=== PATIENT | male | born 1960 | race Caucasian/White ===

== ENCOUNTER 2018-05-08 13:49 | Emergency (ER) | payer OTHER ==
--- OUTSIDE RECORDS SUMMARY | 2018-05-08 13:51 | XMS REPORT ---
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 (ASCVD) Problem HTN (hypertension) I10 Active Problem Pure hypercholesterolemia E78.00 Active Problem Dementia without behavioral F03.90 Active disturbance, unspecified dementia type Problem Cigarette nicotine dependence F17.210 Active without complication Assessment Hyperlipidemia E78.5 Active Assessment Arteriosclerotic cardiovascular I25.10 Active disease (ASCVD) Problem Elevated blood pressure reading R03.0 Active Assessment Primary insomnia F51.01 Active Problem Closed displaced fracture of first S92.312S Active metatarsal bone of left foot, sequela Problem Abdominal pain R10.9 Active Problem Atrial fibrillation, unspecified I48.91 Active type Problem Left foot pain M79.672 Active Problem Hyperlipidemia E78.5 Active Problem Essential hypertension I10 Active Assessment Pulmonary emphysema, unspecified J43.9 Active emphysema type Assessment HTN (hypertension) I10 Active Problem Acute myocardial infarction, I21.4 Active subendocardial infarction Problem Pulmonary emphysema, unspecified J43.9 Active emphysema type Problem Chronic depressive person F34.1 Active Problem Follow-up exam Z09 Active Medications Medication Code Code Instructions Start End Status Dosage System Date Date Clonidine HCl [facility] 47501010465 0.3 MG Orally Nov 30 Inactive 1 tablet Twice a day 2017 Dulera [facility] [id number] 100-5 MCG/ACT Active 2 puffs Inhalation Twice a day Valproic Acid ND 61579342610 250 MG Orally Inactive not three times a defined day Lisinopril ND 87087814969 10 MG Orally December Inactive 1 tablet Once a day 2017 Coreg [facility] 04228299914 12.5 MG Orally Active not twice a day defined [place] [facility] 78582026938 10-325 MG Active 1 tablet Orally every 6 as needed hrs Lisinopril [facility] 95415971259 40 MG Orally February 28, Active 1 tablet Once a day 2017 amitriptyline [facility] 01451272273 25 mg po February Inactive one tab bedtime 2017 Lisinopril [facility] 19342868862 5 MG Orally Inactive 1 tablet Once a day Clonidine HCl [facility] 30258448299 0.3 MG Orally Inactive 1 tablet Twice a day Amiodarone HCl [facility] 06205628949 200 MG Orally Active 1 tablet Once a day Lipitor [facility] 69644510332 40 MG Orally February 28, Active 1 tablet Once a day 2017 Coreg [facility] 51554230821 12.5 MG Orally December Active as bid 2017 directed Amitriptyline [facility] 84049410816 50 MG Orally February 28, Active 1 tablet HCl Once a day 2017 atarax [facility] 67060365237 Inactive not defined Cheratussin AC [facility] 51019860715 100-10 MG/5ML Inactive 10 ml Orally every 8 hrs Clonidine HCl [facility] 62931232422 0.2 MG Orally February 28, Active 1 tablet twice a day 2017 Results No Known Results Summary Purpose [employer] Submission
--- OUTSIDE RECORDS SUMMARY | 2018-05-08 13:52 | XMS REPORT ---
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 Active disease (ASCVD) Problem HTN (hypertension) I10 Active Problem Pure hypercholesterolemia E78.00 Active Problem Dementia without behavioral F03.90 Active disturbance, unspecified dementia type Problem Cigarette nicotine dependence F17.210 Active without complication Problem Elevated blood pressure reading R03.0 Active Problem Closed displaced fracture of first S92.312S Active metatarsal bone of left foot, sequela Problem Abdominal pain R10.9 Active Problem Atrial fibrillation, unspecified I48.91 Active type Problem Left foot pain M79.672 Active Problem Hyperlipidemia E78.5 Active Problem Essential hypertension I10 Active Problem Acute myocardial infarction, I21.4 Active subendocardial infarction Problem Pulmonary emphysema, unspecified J43.9 Active emphysema type Problem Chronic depressive person F34.1 Active Problem Primary insomnia F51.01 Active Problem Follow-up exam Z09 Active Problem Chronic generalized pain R52 Active Medications No Known Medications Results No Known Results Summary Purpose [employer] Submission
[2018-05-08] MEDS ORDERED: ASPIRIN 81 MG CHEWABLE TABLET ONE (14:44)
[2018-05-08 14:45] LABS: Absolute Lymphocytes (CBC) 1.8 K/uL (0.7-4.9); Absolute Monocytes 1.5 K/uL (0.1-1.3); Absolute Neutrophil 11.4 K/uL (1.8-8.0); Basophils % 0.3 % (0-1.3); Eosinophils % 0.2 % (0-4.4); Hematocrit 42.9 % (39.6-49.0); Lymphocytes % 12.1 % (15.3-44.8); MCH 30.5 pg (27.0-35.0); MCV 92.1 fL (80-100); MPV 10.2 fL (7.6-11.3); Monocytes % 10.1 % (3.3-12.3); RBC Red Blood Cell Count 4.66 M/uL (4.33-5.43)
[2018-05-08 14:57] LABS: Albumin 3.2 g/dL (3.4-5.0); Bilirubin Direct 0.4 mg/dL (0-0.2); Bilirubin Total 0.9 mg/dL (0.2-1.0); CKMB Creatine Kinase MB 4.3 ng/mL (0.3-3.6); Magnesium 2.9 mg/dL (1.8-2.4); Potassium 4.1 mmol/L (3.5-5.1)
--- NOTE | 2018-05-08 15:04 | RAD REPORT ---
EXAM DESCRIPTION: CT - Head Brain Wo Cont - 05/08/2018 2:53 pm CLINICAL HISTORY: Syncope COMPARISON: 2016 TECHNIQUE: Computed axial tomography of the head was obtained. IV contrast was not requested. All CT scans are performed using dose optimization technique as appropriate and may include automated exposure control or mA/KV adjustment according to patient size. FINDINGS: An intracranial bleed is not seen . The ventricles are normal in caliber. No extra-axial fluid collection is noted. Mild to moderate low-density areas within periventricular, deep and subcortical white matter likely represent ischemic changes secondary to small vessel disease . Fluid is present within the right maxillary sinus IMPRESSION: No acute intracranial abnormality is seen. If patient's symptoms persist MRI of the bra in would be recommended. Fluid in the right maxillary sinus indicates acute sinusitis
[2018-05-08 15:08] LABS: Protime INR 1.35
--- NOTE | 2018-05-08 15:38 | ER ---
Nurse's Notes [facility] Name: Blayne Macias Age: 57 yrs Sex: Male : 1960 Arrival Date: 05/08/2018 Time: 13:51 Bed 30 Private MD: Diagnosis: ST elevation (STEMI) myocardial infarction of unspecified site Presentation: 05/08 13:51 Presenting complaint: EMS states: Vomiting started yesterday, then diarrhea started mb3 today. Soiled himself and assisted him into shower. Syncopal episode in the shower, then when woke up had what appeared to be a seizure in the shower. C/o pain to left foot also, twisted and hit it when fell in the shower. Transition of care: patient was not received from another setting of care. Onset of symptoms was May 07, 2018 at 08:00. Risk Assessment: Do you want to hurt yourself or someone else? Patient reports no desire to harm self or others. Initial Sepsis Screen: Does the patient meet any 2 criteria? No. Patient's initial sepsis screen is negative. Does the patient have a suspected source of infection? No. Patient's initial sepsis screen is negative. Note concerned that his lithium level may be off because of the vomiting and diarrhea, pt has bipolar and takes it regularly. Care prior to arrival: Medication(s) given: Normal saline infusion, 1000 mL, IV initiated. 20 GA, in the left antecubital area. 13:51 Method Of Arrival: EMS: [facility] mb3 13:51 Acuity: SENTHIL 3 mb3 Historical: - Allergies: 13:57 Codeine; mb3 13:57 PENICILLINS; mb3 - Home Meds: 14:50 amiodarone 200 mg Oral tab 0.5 tab 2 times per day [Active]; amitriptyline 50 mg Oral mb3 tab 1 tab once daily [Active]; aspirin 81 mg Oral TbEC 1 tab once daily [Active]; carvedilol 25 mg Oral tab 0.5 tab 2 times per day [Active]; clonidine HCl 0.3 mg Oral tab 1 tab 2 times per day [Active]; hydrochlorothiazide 12.5 mg Oral tab 1 tab once daily [Active]; isosorbide mononitrate 60 mg Oral Tb24 [Active]; Lasix 40 mg Oral tab 1 tab once daily [Active]; lisinopril 5 mg Oral tab once daily [Active]; lithium carbonate 300 mg Oral cap 1 cap 3 times per day [Active]; Norvasc 10 mg Oral tab once daily [Active]; ProAir HFA 90 mcg/actuation inhalation HFAA [Active]; simvastatin 40 mg Oral tab 1 tab once daily [Active]; Symbicort 160-4.5 mcg/actuation inhalation HFAA 2 puffs 2 times per day [Active]; - PMHx: 13:57 Atrial Fib; Back pain; Bipolar disorder; CAD; CHF; chronic back pain; COPD; High mb3 Cholesterol; Hypertension; Pneumonia; - PSHx: 13:57 pain stimulator to back, neck surgery; CABG; mb3 - Immunization history:: Adult Immunizations up to date. - Social history:: Smoking status: Patient/guardian denies using tobacco, the patient reports quitting approximately .5 years ago. - Ebola Screening: : Patient negative for fever greater than or equal to 101.5 degrees Fahrenheit, and additional compatible Ebola Virus Disease symptoms Patient denies exposure to infectious person Patient denies travel to an Ebola-affected area in the 21 days before illness onset No symptoms or risks identified at this time. Screenin:29 Abuse screen: Denies threats or abuse. Nutritional screening: No deficits noted. mb3 Tuberculosis screening: No symptoms or risk factors identified. Fall Risk Fall in past 12 months (25 points). Secondary diagnosis (15 points) IV access (20 points). Ambulatory Aid- Furniture (30 pts.). Gait- Impaired (20 pts.). Mental Status- Oriented to own ability (0 pts). Total Kang Fall Scale indicates High Risk Score (45 or more points). Fall prevention measures have been instituted. Side Rails Up X 2 Placed Close to Nursing Station Frequent Obs/Assessments Occuring As available patient and family educated on Fall Prevention Program and Strategies. Assessment: 14:26 General: Appears distressed, uncomfortable, ill, slender, Behavior is calm, mb3 cooperative, appropriate for age. Pain: Complains of pain in abdomen and left foot. Neuro: Level of Consciousness is awake, alert, obeys commands, Oriented to person, place, time, situation, Appropriate for age Welfare Supervisor are equal bilaterally Moves all extremities. Full function. Cardiovascular: Reports nausea, vomiting, Denies chest pain, Heart tones present Capillary refill < 3 seconds Patient's skin is warm and dry. Pulses are all present. Rhythm is sinus rhythm. Respiratory: Airway is patent Respiratory effort is even, unlabored, Respiratory pattern is regular, symmetrical, Breath sounds are clear bilaterally. GI: Abdomen is flat, Bowel sounds present X 4 quads. Abd is soft Abdomen is tender to palpation X 4 quads. Reports lower abdominal pain, upper abdominal pain, diarrhea, nausea, vomiting. : No signs and/or symptoms were reported regarding the genitourinary system. EENT: No signs and/or symptoms were reported regarding the EENT system. Derm: No signs and/or symptoms reported regarding the dermatologic system. Musculoskeletal: Tenderness present in left foot Reports pain in left foot. 14:53 Reassessment: attempted to call Dr. Elizabeth, polygraph operator again. Answering service ss staff states, "we are waiting for him to call us back, sorry". Initiating transfer at this time. 14:54 Reassessment: Dr. Elizabeth on the phone now consulting with Sunita Jacobs NP. Dr. Berrios reports our facility's label stamper is unavailable at this time and continue with transfer to [facility] for continuity of higher level of care. Vital Signs: 13:55 BP 92 / 79; Pulse 81; Resp 20; Temp 97.9; Pulse Ox 98% on R/A; Weight 72.57 kg; Height mb3 5 ft. 9 in. (175.26 cm); Pain 6/10; 14:32 BP 126 / 85; Pulse 76; Resp 20; Pulse Ox 98% on R/A; mb3 15:13 BP 123 / 85 LA Supine (auto/reg); Pulse 74 LA; cb2 15:19 BP 105 / 85 LA Sitting (auto/reg); Pulse 82 LA; cb2 15:24 BP 75 / 64 LA Standing (auto/reg); Pulse 82 LA; cb2 15:59 BP 149 / 94 LA Sitting (auto/reg); Pulse 73 LA; Resp 18 S; Pulse Ox 95% on R/A; cb2 16:21 BP 151 / 94; Pulse 78; Resp 20; Pulse Ox 95% on R/A; mb3 13:55 Body Mass Index 23.63 (72.57 kg, 175.26 cm) mb3 ED Course: 13:51 Patient arrived in ED. mb3 13:53 Edmond Jacobs, [employer]SEMBLER is PHCP. pm1 13:53 Qing Ramos MD is Attending Physician. pm1 13:54 Triage completed. mb3 14:03 Arias Mohan, RN is Primary Nurse. mb3 14:25 EKG done, by ED staff, reviewed by Edmond Jacobs NP. cb2 14:29 Patient has correct armband on for positive identification. Placed in gown. Bed in low mb3 position. Call light in reach. Side rails up X2. Seizure precautions initiated. front counter attendant on. Pulse ox on. NIBP on. 14:31 Arm band placed on right wrist. mb3 14:37 called and left message with the polygraph operator answering service to please page the eb polygraph operator software integration developer that we had a STEMI and needed a call back. 14:50 CT completed. Patient moved to CT via stretcher. Patient moved back from CT. cw1 14:53 CT Head Brain wo Cont In Process Unspecified. EDMS 14:53 Glenn Irvin returned call and connected with Edmond. eb 14:53 initiated transfer with Cha at the [facility]. eb 15:00 connected the STEMI team with ED doc for patient transfer consultation, faxed the ekg eb to [phone] and [phone]. 15:08 STEMI team called back to talk to ED doc after reviewing ekgs to discuss patient eb transfer. 15:09 Inserted saline lock: 20 gauge in right forearm, using aseptic technique. cb2 15:10 Foot Left 3 View XRAY In Process Unspecified. EDMS 15:10 XRAY Chest (1 view) In Process Unspecified. EDMS 15:14 connected with ED doc for patient transfer consultation. eb 15:24 Cha from [facility] called to ask for a 15min extension on the transfer time. eb 16:22 No provider procedures requiring assistance completed. Patient transferred, IV remains mb3 in place. Administered Medications: 14:43 Drug: Aspirin Chewable Tablet 324 mg Route: PO; mb3 16:26 Follow up: Response: No adverse reaction mb3 Outcome: 15:37 ER care complete, transfer ordered by . pm1 16:21 Transferred by helicopter to [facility], [facility], Transfer form completed. mb3 X-rays sent w/ patient. 16:21 Condition: stable 16:21 Instructed on the need for transfer. 16:22 Patient left the ED. mb3 Signatures: Dispatcher [employer] Riya Borges RN RN Jammie Banerjee cw1 Edmond Jacobs NP [employer]BL[employer] pm1 Sathish Young Elizabeth eb Barnett, Mark RN RN mb3 Corrections: (The following items were deleted from the chart) 15:07 14:54 Reassessment: Dr. Elizabeth on the phone now consulting with XIMENA Wilkes
--- NOTE | 2018-05-08 15:38 | EDPHYS ---
Physician Documentation [facility] Name: Blayne Macias Age: 57 yrs Sex: Male : 1960 Arrival Date: 05/08/2018 Time: 13:51 Bed 30 Private MD: ED Physician Qing Ramos HPI: 05/08 15:17 This 57 yrs old Male presents to ER via EMS with complaints of Syncope, pm1 Probable Seizure. 15:17 The patient has experienced syncope, collapsed. Onset: The symptoms/episode pm1 began/occurred just prior to arrival, today. Patient had onset of chest two days ago. Last episode of chest pain last night. Chest pain felt like pressure. Hx of CAD with singe vessel CABG December 2015 GONZALES to LAD. Patient with nausea and vomiting throughout the day yesterday. Today patient with complaints of syncopal episodes that were preceded by episodes of back pain. Patient attributed the back pain to a lack of his back stimulator not working to manage his chronic back pain. Initial syncopal episode while he was having a bowel movement, diarrhea. After initial syncopal episode, patient got up and had additional syncopal episodes preceded by back pain. Patient without headache, head injury, or neck pain. During one of his syncopal episodes, patient injured his left foot. Presenting with pain to dorsum of left foot. Patient currently not complaining of chest pain or shortness of breath . Historical: - Allergies: 13:57 Codeine; mb3 13:57 PENICILLINS; mb3 - Home Meds: 14:50 amiodarone 200 mg Oral tab 0.5 tab 2 times per day [Active]; amitriptyline 50 mg Oral mb3 tab 1 tab once daily [Active]; aspirin 81 mg Oral TbEC 1 tab once daily [Active]; carvedilol 25 mg Oral tab 0.5 tab 2 times per day [Active]; clonidine HCl 0.3 mg Oral tab 1 tab 2 times per day [Active]; hydrochlorothiazide 12.5 mg Oral tab 1 tab once daily [Active]; isosorbide mononitrate 60 mg Oral Tb24 [Active]; Lasix 40 mg Oral tab 1 tab once daily [Active]; lisinopril 5 mg Oral tab once daily [Active]; lithium carbonate 300 mg Oral cap 1 cap 3 times per day [Active]; Norvasc 10 mg Oral tab once daily [Active]; ProAir HFA 90 mcg/actuation inhalation HFAA [Active]; simvastatin 40 mg Oral tab 1 tab once daily [Active]; Symbicort 160-4.5 mcg/actuation inhalation HFAA 2 puffs 2 times per day [Active]; - PMHx: 13:57 Atrial Fib; Back pain; Bipolar disorder; CAD; CHF; chronic back pain; COPD; High mb3 Cholesterol; Hypertension; Pneumonia; - PSHx: 13:57 pain stimulator to back, neck surgery; CABG; mb3 - Immunization history:: Adult Immunizations up to date. - Social history:: Smoking status: Patient/guardian denies using tobacco, the patient reports quitting approximately .5 years ago. - Ebola Screening: : Patient negative for fever greater than or equal to 101.5 degrees Fahrenheit, and additional compatible Ebola Virus Disease symptoms Patient denies exposure to infectious person Patient denies travel to an Ebola-affected area in the 21 days before illness onset No symptoms or risks identified at this time. ROS: 15:17 Constitutional: Negative for fever, chills, and weight loss, Eyes: Negative for injury, pm1 pain, redness, and discharge, ENT: Negative for injury, pain, and discharge, Neck: Negative for injury, pain, and swelling, Respiratory: Negative for shortness of breath, cough, wheezing, and pleuritic chest pain, Abdomen/GI: Negative for abdominal pain, nausea, vomiting, diarrhea, and constipation. 15:17 : Negative for injury, bleeding, discharge, and swelling, Skin: Negative for injury, rash, and discoloration. 15:17 Cardiovascular: Positive for chest pain, pressure onset two days ago, Negative for edema, palpitations. 15:17 Back: Positive for Low back pain. 15:17 MS/extremity: Positive for pain, tenderness, of the dorsum of left foot. 15:17 Neuro: Positive for syncope, Possible seizure activity per . No postictal period, Negative for altered mental status, dizziness, headache, weakness. Exam: 15:17 Abdomen/GI: Inspection: abdomen appears normal, Bowel sounds: normal, Palpation: pm1 abdomen is soft and non-tender. 15:17 Constitutional: This is a well developed, well nourished patient who is awake, alert, and in no acute distress. Eyes: Pupils equal round and reactive to light, extra-ocular motions intact. Lids and lashes normal. Conjunctiva and sclera are non-icteric and not injected. Cornea within normal limits. Periorbital areas with no swelling, redness, or edema. ENT: Nares patent. No nasal discharge, no septal abnormalities noted. Tympanic membranes are normal and external auditory canals are clear. Oropharynx with no redness, swelling, or masses, exudates, or evidence of obstruction, uvula midline. Mucous membranes moist. Neck: Trachea midline, no thyromegaly or masses palpated, and no cervical lymphadenopathy. Supple, full range of motion without nuchal rigidity, or vertebral point tenderness. No Meningismus. Chest/axilla: Normal chest wall appearance and motion. Nontender with no deformity. No lesions are appreciated. Cardiovascular: Regular rate and rhythm with a normal S1 and S2. No gallops, murmurs, or rubs. No pulse deficits. Respiratory: Lungs have equal breath sounds bilaterally, clear to auscultation and percussion. No rales, rhonchi or wheezes noted. No increased work of breathing, no retractions or nasal flaring. Abdomen/GI: Soft, non-tender, with normal bowel sounds. No distension or tympany. No guarding or rebound. No evidence of tenderness throughout. Back: No spinal tenderness. No costovertebral tenderness. Full range of motion. Skin: Warm, dry with normal turgor. Normal color with no rashes, no lesions, and no evidence of cellulitis. MS/ Extremity: Pulses equal, no cyanosis. Neurovascular intact. Full, normal range of motion. 15:17 Neuro: Orientation: is normal, Motor: moves all fours, Sensation: no obvious gross deficits, appropriate 15:34 Head/face: Noted is no obvious of injury or deformity except contusion, that is pm1 superficial, of the right side of forehead. Vital Signs: 13:55 BP 92 / 79; Pulse 81; Resp 20; Temp 97.9; Pulse Ox 98% on R/A; Weight 72.57 kg; Height mb3 5 ft. 9 in. (175.26 cm); Pain 6/10; 14:32 BP 126 / 85; Pulse 76; Resp 20; Pulse Ox 98% on R/A; mb3 15:13 BP 123 / 85 LA Supine (auto/reg); Pulse 74 LA; cb2 15:19 BP 105 / 85 LA Sitting (auto/reg); Pulse 82 LA; cb2 15:24 BP 75 / 64 LA Standing (auto/reg); Pulse 82 LA; cb2 15:59 BP 149 / 94 LA Sitting (auto/reg); Pulse 73 LA; Resp 18 S; Pulse Ox 95% on R/A; cb2 16:21 BP 151 / 94; Pulse 78; Resp 20; Pulse Ox 95% on R/A; mb3 13:55 Body Mass Index 23.63 (72.57 kg, 175.26 cm) mb3 MDM: 13:55 Patient medically screened. pm1 15:13 Physician consultation: discussed with Dr. dos santos who recommend transfer for higher nj2 level of care as no Cath available today, I discussed the case with dr. Rojas equipment worker at [facility] who accepted the patient. also discussed with Dr. Borja hospitalist at [facility] . 15:35 Data reviewed: vital signs. Data interpreted: Pulse oximetry: on room air is 98 %. pm1 Interpretation: normal. Counseling: I had a detailed discussion with the patient and/or guardian regarding: the historical points, exam findings, and any diagnostic results supporting the discharge/admit diagnosis, lab results, radiology results, the need to transfer to another facility, for higher level of care, no shift lab technician available here. 15:35 ED course: Patient's back pain prior to syncopal episodes likely chest pain pm1 equivalents, with history of CAD and CAGB, elevated troponin, ECG changes from 11/21/2017, and ST elevation in lead V3 with reciprocal changes in V4-V6. 05/08 14:13 Order name: Basic Metabolic Panel; Complete Time: 15: pm05/08 14:13 Order name: CBC with Diff; Complete Time: 15: pm05/08 14:13 Order name: Ckmb; Complete Time: 15: pm05/08 14:13 Order name: CPK; Complete Time: 15: pm05/08 14:13 Order name: LFT's; Complete Time: 15: pm05/08 14:13 Order name: Magnesium; Complete Time: 15: pm05/08 14:13 Order name: CT Head Brain wo Cont; Complete Time: 15: pm05/08 14:13 Order name: Foot Left 3 View XRAY; Complete Time: 15:56 pm1 05/08 14:13 Order name: NT PRO-BNP; Complete Time: 15:09 pm1 05/08 14:13 Order name: PT-INR; Complete Time: 15:16 pm1 05/08 14:13 Order name: Ptt, Activated; Complete Time: 15:16 pm1 05/08 14:13 Order name: Troponin (emerg Dept Use Only); Complete Time: 15:09 pm1 05/08 14:13 Order name: XRAY Chest (1 view); Complete Time: 15:56 pm1 05/08 14:13 Order name: EKG; Complete Time: 14:14 pm1 05/08 14:13 Order name: Cardiac monitoring; Complete Time: 14:25 pm1 05/08 14:13 Order name: EKG - Nurse/Tech; Complete Time: 14:26 pm1 05/08 14:13 Order name: IV Saline Lock; Complete Time: 14:35 pm1 05/08 14:13 Order name: Labs collected and sent; Complete Time: 14:35 pm1 05/08 14:13 Order name: O2 Per Protocol; Complete Time: 14:35 pm1 05/08 14:13 Order name: O2 Sat Monitoring; Complete Time: 14:35 pm1 05/08 14:14 Order name: Orthostatic Blood Pressure; Complete Time: 15:33 pm1 Administered Medications: 14:43 Drug: Aspirin Chewable Tablet 324 mg Route: PO; mb3 16:26 Follow up: Response: No adverse reaction mb3 Disposition: 05/08/18 15:37 Transfer ordered to [facility]. Diagnosis is ST elevation (STEMI) myocardial infarction of unspecified site. - Reason for transfer: Higher level of care. - Accepting physician is Rozen. - Condition is Stable. - Problem is new. - Symptoms have improved. Addendum: 05/09/2018 21:27 Co-signature as Attending Physician, Qing Ramos MD. m a2 Signatures: Dispatcher [employer] EDMS Edmond Jacobs, [employer]ARM[employer] pm1 Qing Ramos MD MD ma2 Arias Mohan, RN RN mb3 Corrections: (The following items were deleted from the chart) 05/08 15:35 15:17 Constitutional: This is a well developed, well nourished patient who is awake, pm1 alert, and in no acute distress. Head/Face: Normocephalic, atraumatic. Eyes: Pupils equal round and reactive to light, extra-ocular motions intact. Lids and lashes normal. Conjunctiva and sclera are non-icteric and not injected. Cornea within normal limits. Periorbital areas with no swelling, redness, or edema. ENT: Nares patent. No nasal discharge, no septal abnormalities noted. Tympanic membranes are normal and external auditory canals are clear. Oropharynx with no redness, swelling, or masses, exudates, or evidence of obstruction, uvula midline. Mucous membranes moist. Neck: Trachea midline, no thyromegaly or masses palpated, and no cervical lymphadenopathy. Supple, full range of motion without nuchal rigidity, or vertebral point tenderness. No Meningismus. Chest/axilla: Normal chest wall appearance and motion. Nontender with no deformity. No lesions are appreciated. Cardiovascular: Regular rate and rhythm with a normal S1 and S2. No gallops, murmurs, or rubs. No pulse deficits. Respiratory: Lungs have equal breath sounds bilaterally, clear to auscultation and percussion. No rales, rhonchi or wheezes noted. No increased work of breathing, no retractions or nasal flaring. Abdomen/GI: Soft, non-tender, with normal bowel sounds. No distension or tympany. No guarding or rebound. No evidence of tenderness throughout. Back: No spinal tenderness. No costovertebral tenderness. Full range of motion. Skin: Warm, dry with normal turgor. Normal color with no rashes, no lesions, and no evidence of cellulitis. MS/ Extremity: Pulses equal, no cyanosis. Neurovascular intact. Full, normal range of motion. pm1 15:38 15:37 05/08/2018 15:37 Transfer ordered to [facility]. Diagnosis is pm1 ST elevation (STEMI) myocardial infarction of unspecified site. Reason for transfer: Higher level of care. Accepting physician is John. Condition is Stable. Problem is new. Symptoms have improved. pm1 15:39 15:38 05/08/2018 15:37 Transfer ordered to [facility]. Diagnosis is pm1 ST elevation (STEMI) myocardial infarction of unspecified site. Reason for transfer: Higher level of care. Accepting physician is Jonh. Condition is Stable. Problem is new. Symptoms have improved. pm1 16:22 15:39 05/08/2018 15:37 Transfer ordered to [facility]. Diagnosis is mb3 ST elevation (STEMI) myocardial infarction of unspecified site. Reason for transfer: Higher level of care. Accepting physician is Laz. Condition is Stable. Problem is new. Symptoms have improved. pm1
--- NOTE | 2018-05-08 15:53 | RAD REPORT ---
EXAM DESCRIPTION: RAD - Foot Left 3 View - 05/08/2018 3:10 pm CLINICAL HISTORY: Left Foot pain FINDINGS: No fracture or dislocation is seen. The bones are osteoporotic. Hallux valgus deformity is noted.
--- NOTE | 2018-05-08 15:55 | RAD REPORT ---
EXAM DESCRIPTION: Jose Single View05/08/2018 3:10 pm CLINICAL HISTORY: Chest pain COMPARISON: October 2017 FINDINGS: The lungs appear clear of acute infiltrate. The heart is normal size. Postsurgical change s involve the chest IMPRESSION: No acute abnormalities displayed
[2018-05-08 16:26] VITALS: TEMP 97.9
[2018-05-08 16:31] VITALS: O2SAT 95
[2018-05-08 16:32] VITALS: BP 151/94
--- NOTE | 2018-05-09 06:50 | EKG ---
Test Date: 2018-05-08 Test Time: 14:21:18 Marine Rigger: MADELEINE MEASUREMENT RESULTS: Intervals: Rate: 67 GA: 180 QRSD: 110 QT: 514 QTc: 543 [employer]: P: 65 GA: 180 QRS: 69 T: 82 INTERPRETIVE STATEMENTS: Normal sinus rhythm Anteroseptal infarct, cited previously Prolonged QT Intraventricular conduction delay Abnormal ECG Compared to ECG 11/21/2017 10:28:08 Prolonged QT and QRS intervals now present Sinus tachycardia no longer present Myocardial infarct finding still present Electronically Signed On 05-09-18 06:49:41 CDT by Bijan Woods
== END 2018-05-08 16:22 | disposition short-term general hospital (02) ==
LOC: ER 13:49
DX: I21.3 ST elevation (STEMI) myocardial infarction of unspecified site (principal); I10 Essential (primary) hypertension; I48.91 Unspecified atrial fibrillation; I50.9 Heart failure, unspecified; E78.00 Pure hypercholesterolemia, unspecified; Z79.82 Long term (current) use of aspirin; Z88.0 Allergy status to penicillin; Z88.5 Allergy status to narcotic agent; Z95.1 Presence of aortocoronary bypass graft
CPT/HCPCS: 36415; 70450; 71045; 80048; 80076; 82550; 82553; 83735; 83880; 84484; 85025; 85610; 85730; 93005; 99285

== ENCOUNTER 2018-05-31 09:42 | Emergency (ER) | payer OTHER ==
--- OUTSIDE RECORDS SUMMARY | 2018-05-31 09:45 | XMS REPORT | Clinical Summary ---
:1960 Author Organization [facility] Address [address] [place] [address] Phone Care Team Providers Name Role Phone Unavailable Primary Care Provider Unavailable Allergies Active Allergy Reactions Severity Noted Date Comments Codeine Hives 05/08/2018 Penicillins 01/22/2016 Current Medications Prescription Sig. Disp. Refills Start Date End Date Status amitriptyline Take 50 mg by Active (ELAVIL) 50 MG mouth nightly. tablet DULoxetine Take 60 mg by Active (CYMBALTA) 60 MG mouth daily. capsule vitamin E 200 UNIT Take 200 Units Active capsule by mouth daily. methocarbamol Take 750 mg by Active (ROBAXIN) 750 MG mouth 4 (four) tablet times daily. carvedilol (COREG) Take 1 tablet 60 tablet 0 01/28/2016 Active 25 MG tablet (25 mg total) by mouth 2 (two) times daily with breakfast and dinner. lithium 300 MG Take 300 mg by Active capsule mouth 2 (two) times daily with breakfast and dinner. amLODIPine Take 10 mg by Active (NORVASC) 10 MG mouth daily. tablet lisinopril Take 20 mg by Active (PRINIVIL,ZESTRIL) mouth daily . 40 MG tablet aspirin 81 MG Take 1 tablet 30 tablet 0 05/12/2018 Active chewable tablet (81 mg total) by mouth daily. albuterol HFA Inhale 1 puff by Active (VENTOLIN HFA) 90 mouth via mcg/actuation inhaler every 6 inhaler (six) hours as needed for Wheezing. mometasone-formoter Inhale 2 puffs Active ol (DULERA) 100-5 by mouth via mcg/actuation inhaler 2 (two) inhaler times daily. HYDROcodone-acetami Take 1 tablet by Active nophen (NORCO mouth every 6 10-325) 10-325 mg (six) hours as per tablet needed for Pain. traZODone (DESYREL) Take 0.5 tablets 15 tablet 0 05/12/2018 Active 50 MG tablet (25 mg total) by mouth every night as needed for Sleep. nitroglycerin Put 1 pill under 30 tablet 0 05/12/2018 Active (NITROSTAT) 0.4 MG tongue every SL tablet 5min as needed for chest pain.No more than 3 doses in 15min.. lidocaine Place 3 patches 30 patch 0 05/12/2018 Active (LIDODERM) 5 % onto the skin patch daily Remove & Discard patch within 12 hours or as directed by MD. famotidine (PEPCID) Take 1 tablet 30 tablet 0 05/12/2018 Active 20 MG tablet (20 mg total) by mouth 2 (two) times daily as needed for Heartburn. atorvastatin Take 1 tablet 30 tablet 0 05/12/2018 Active (LIPITOR) 20 MG (20 mg total) by tablet mouth nightly Take instead of simvastatin for cholesterol. nitroglycerin Place 0.4 mg Discontinued (NITROSTAT) 0.4 MG under the tongue 8 SL tablet every 5 (five) minutes as needed for Chest pain Put 1 pill under tongue every 5min as needed for chest pain.No more than 3 doses in 15min.Call 911 if pain is unrelieved 5min after 1st dose . simvastatin (ZOCOR) Take 1 tablet 30 tablet 0 01/28/2016 Discontinued 40 MG tablet (40 mg total) by 8 mouth nightly. Active Problems Problem Noted Date Hypertensive emergency 05/13/2018 Acute kidney injury (HCC) 05/13/2018 Diarrhea 05/13/2018 Transaminitis 05/13/2018 Hepatitis C virus infection without hepatic coma 05/13/2018 Chest pain 05/09/2018 Syncope 05/09/2018 Paroxysmal atrial fibrillation (HCC) 05/09/2018 COPD (chronic obstructive pulmonary disease) (HCC) 05/09/2018 CAD (coronary artery disease) 01/22/2016 Resolved Problems Problem Noted Date Resolved Date Atherosclerosis of [place] coronary artery with unstable 01/23/2016 05/09/2018 angina pectoris (HCC) Multi-vessel coronary artery stenosis 01/23/2016 05/09/2018 Flash pulmonary edema (HCC) 01/23/2016 05/09/2018 Chronic total occlusion of coronary artery 01/23/2016 05/09/2018 Acute postoperative respiratory insufficiency 01/23/2016 05/09/2018 Postoperative anemia due to acute blood loss 01/23/2016 05/09/2018 Acute post-operative pain 01/23/2016 05/09/2018 Encounters Date Type Specialty Care Team Description 05/08/2018 - Hospital Cardiology Jaqui Turner Acute post-operative 05/12/2018 Encounter MD Divina pain;Coronary artery Sandhya, disease involving Mrinalini Zade, [place] coronary MD artery of [place] Trina Moody, heart with angina MD pectoris ([facility]);Acute Sebastian Gonzalez, kidney injury ([facility]);Diarrhea, unspecified type;Hepatitis C virus infection without hepatic coma, unspecified chronicity;Hypertens alberto emergency;Paroxysmal atrial fibrillation ([facility]);Vasovagal syncope;Transaminiti s 05/08/2018 Procedure Pass 05/08/2018 Surgery Trina Moody L CATH & CORONARY MD ANGIOS 05/08/2018 Orders Only General Internal Medicine after 05/30/2017 Social History Tobacco Use Types Packs/Day Years Used Date Never Assessed Sex Assigned at Date Recorded Not on file Last Filed Vital Signs Vital Sign Reading Time Taken Blood Pressure 136/90 05/12/2018 12:11 PM CDT Pulse 83 05/12/2018 12:11 PM CDT Temperature 36.3 C (97.4 F) 05/12/2018 12:11 PM CDT Respiratory Rate 18 05/12/2018 12:11 PM CDT Oxygen Saturation 99% 05/12/2018 12:11 PM CDT Inhaled Oxygen Concentration - - Weight 71.8 kg (158 lb 6.4 oz) 05/12/2018 8:22 AM CDT Height 175.3 cm (5' 9") 05/11/2018 3:57 PM CDT Body Mass Index 23.39 05/12/2018 8:22 AM CDT Plan of Treatment Date Type Specialty Care Team Description 06/13/2018 Surgery Gastroenterology Eb Rich MD COLONOSCOPY [address] [address] [phone] 06/13/2018 Procedure Pass Gastroenterology 06/13/2018 Hospital Encounter Gastroenterology Eb Rich MD [address] [id number] Procedures Procedure Name Priority Date/Time Associated Diagnosis Comments L CATH & CORONARY 05/08/2018 7:05 PM Coronary artery disease ANGIOS CDT involving [place] heart without angina pectoris, unspecified vessel or lesion type after 05/30/2017 Results EKG-SCANNED (05/13/2018 12:30 PM)RHYTHM STRIP - SCAN (05/13/2018 12:30 PM)POC- Glucose meter (05/12/2018 11:57 AM)Only the most recent of2 resultswithin the time period is included. Component Value Ref Range POC-Glucose Meter 169 (H)Comment: TESTED AT [address] 70 - 110 mg/[place] [address] Specimen Performing Laboratory Blood [facility] [address] [address] ECHOCARDIOGRAM REPORT - SCAN (05/12/2018 8:22 AM)CBC with platelet count + automated diff (05/12/2018 4:15 AM)Only the most recent of4 resultswithin the time period is included. Component Value Ref Range WBC 9.4 3.5 - 10.5 K/L RBC 4.48 (L) 4.63 - 6.08 M/L Hemoglobin 13.6 (L) 13.7 - 17.5 GM/DL Hematocrit 41.5 40.1 - 51.0 % MCV 92.6 (H) 79.0 - 92.2 fL MCH 30.4 25.7 - 32.2 pg MCHC 32.8 32.3 - 36.5 GM/DL RDW 13.5 11.6 - 14.4 % Platelets 218 150 - 450 K/CU MM MPV 11.3 9.4 - 12.4 fL nRBC 0 0 - 0 /100 WBC % Neutros 52 % % Lymphs 31 % % Monos 8 % % Eos 8 % % Baso 1 % # Neutros 4.85 1.78 - 5.38 K/L # Lymphs 2.92 1.32 - 3.57 K/L # Monos 0.77 0.30 - 0.82 K/L # Eos 0.79 (H) 0.04 - 0.54 K/L # Baso 0.06 0.01 - 0.08 K/L Immature Granulocytes-Relative 0 0 - 1 % Specimen Performing Laboratory Blood - Arm, [address] [address] Hepatitis C antibody (05/12/2018 4:15 AM) Component Value Ref Range Hepatitis C Ab Reactive (A) Nonreactive Specimen Performing Laboratory Blood - Arm, [address] [address] Hepatitis B core antibody, IgM (05/12/2018 4:15 AM) Component Value Ref Range Hep B C IgM Nonreactive Nonreactive Specimen Performing Laboratory Blood - Arm, [address] [address] Hepatitis B core antibody, total (05/12/2018 4:15 AM) Component Value Ref Range Hep B Core Total Ab Reactive (A) Nonreactive Specimen Performing Laboratory Blood - Arm, [address] [address] Hepatitis B surface antibody (05/12/2018 4:15 AM) Component Value Ref Range Hep B S Ab <8.0 <8.0 mIU/mL Specimen Performing Laboratory Blood - Arm, [address] [address] Hepatitis B surface antigen (05/12/2018 4:15 AM) Component Value Ref Range hepatitis B Surface Ag Nonreactive Nonreactive Specimen Performing Laboratory Blood - Arm, [address] [address] CBC with platelet count + automated diff (05/12/2018 4:15 AM)Only the most recent of4 resultswithin the time period is included. Specimen Performing Laboratory Blood Narrative The following orders were created for panel order CBC with platelet count + automated diff. Procedure Abnormality Status --------- ------ CBC with platelet count ...[[id number]]AbnormalFinal result Please view results for these tests on the individual orders. Hepatic function panel (05/12/2018 4:15 AM) Component Value Ref Range Protein, Total 6.7 6.0 - 8.3 gm/dL Albumin 3.5 3.5 - 5.0 g/dL Total Bilirubin 0.5 0.2 - 1.2 mg/dL Bilirubin, Direct 0.3 0.1 - 0.5 mg/dL Alkaline Phosphatase 60 40 - 150 U/L AST 47 (H) 5 - 34 U/L ALT 67 (H) 6 - 55 U/L Specimen Performing Laboratory Blood - Arm, [address] [address] Basic metabolic panel (05/12/2018 4:15 AM)Only the most recent of4 resultswithin the time period is included. Component Value Ref Range Sodium 138 136 - 145 meq/L Potassium 3.8 3.5 - 5.1 meq/L Chloride 104 98 - 107 meq/L CO2 25 22 - 29 meq/L BUN 18 7 - 21 mg/dL Creatinine 0.94 0.57 - 1.25 mg/dL Glucose 109 (H) 70 - 105 mg/dL Calcium 9.1 8.4 - 10.2 mg/dL EGFR 82Comment: ESTIMATED GFR IS NOT ACCURATE mL/min/1.73 sq m CREATININE CLEARANCE IN PREDICTING GLOMERULAR FILTRATION RATE. ESTIMATED GFR IS NOT APPLICABLE FOR DIALYSIS PATIENTS. 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 Clinical History HGB 13.4 HCT 41.7 % CAD, CP, SYNCOPE, AFIB, COPD, CHF ACBX2: 01/23/16 Height: 69 inches Weight: 73.94 kg (163 lbs) BSA: 1.89 m^2 BMI: 24.07 kg/m^2 HR: 77 bpm BP: 145/82 mmHg Summary 1.Septal motion is abnormal, likely related to prior cardiac surgery . The other segments contract normally. Estimated LVEF by qualitative assessment is normal (55-60%) . 2.Grade 1 diastolic dysfunction (impaired relaxation and low-normal LA pressure). 3. The right ventricular chamber size and systolic function are within normal limits. Previous Study No prior exam available for comparison. Signature Findings Technical Quality: Technically adequate exam. Left Ventricle The left ventricle is chamber size (by vol index) is normal (male - LVED vol - 34-74ml/m2). LV septal thickness is moderately increased (1.5-1.6cm). LV posterior wall thickness is normal (0.6-1.1cm) . Mild basal septal hypertrophy is present. Septal motion is abnormal, likely related to prior cardiac surgery . The other segments contract normally. Global LV systolic function normal . Estimated LVEF by qualitative assessment is normal (55-60%) . Grade 1 diastolic dysfunction (impaired relaxation and low-normal LA pressure). Left AtriumLA size is normal (16-34 ml/m2) . Right VentricleThe right ventricular chamber size and systolic function are within normal limits. Right Atrium RA cavity size is normal . Aortic Valve Mild AoV cusp thickening. AoV cusp mobility is normal . Mitral Valve Mild MV leaflet thickening. No evidence of mitral regurgitation. Tricuspid ValveTV structure is normal. A trace of tricuspid regurgitation. Estimated peak systolic PA pressure cannot be determined due to inadequate TR velocity signal . Pulmonic Valve Normal PV structure and function by limited views and Doppler. AortaAortic root size (SInus of Valsalva diameter) is normal . PericardiumNo pericardial effusion is visualized. IVC/SVC/PA/PV/PleuralThe estimated RA pressure by IVC dynamics 0-5mmHg . The inferior vena cava size is normal . The inferior vena cava is adequately visualized. Chambers/Structures Left Atrium LA Volume: 35.74 ml LA Area: 14.03 cm^ 2 LA Vol. Index: 19 ml/m^2 Left Ventricle LVIDd: 4.41 cm LVEDV:88.13 ml LV Septum Diastolic: 1.68 cm LV PW Diastolic: 0.73 cm LVEDV Greer's:117.19 ml LVEDVI: 62 ml/m^2 LVOT Diameter: 2.15 cm Aorta Ao Root S of Nneka.: 3.14 cm Doppler/Quantitative Measurements Mitral Valve MV Peak E-Wave: 0.56 m/sMV Peak A-Wave: 0.59 m/s E/ A Ratio: 0.95 Peak Gradient: 1.24 mmHg Deceleration Time: 245.4 msec MV Brad. Peak: Tissue Doppler E' Septal Velocity: 0.04 m/sE/E': 15.38 Aortic Valve Peak Velocity: 1.09 m/sMean Velocity: 0.75 m/s Peak Gradient: 4.72 mmHg Mean Gradient: 2.55 mmHg AV Area (continuity): 3.94 cm^2 AV VTI: 20.76 cm AV DVI: 1.09 LVOT Peak Velocity: 1.17 m/s Peak Gradient: 5.51 mmHg Mean Velocity: 0.73 m/s Mean Gradient: 2.52 mmHg LVOT Diameter: 2.15 cmLVOT VTI: 22.56 cm LVOT Area: 3.63 cm^2LVOT SV:81.86 ml LVOT CO: 6.3 l/minLVOT CI: 3.33 l/min/m^2 Procedure Note Interface, External Ris In - 05/11/2018 10:43 PM CDT Transthoracic Echocardiography Report (TTE) Demographics Patient Name ALHAJI MACIAS Date of Study 05/11/2018 [place] Gender Male Visit Number [id number] Race Unknown Room Number 1039 Number Date of 1960 Referring Physician JOEY CASILLAS Age 57 year(s) Supervisor Record Press Linda Herrera [employer] Machine Operator Melba Combs, Interpreting [employer] [facility] Physician Procedure Type of Study TTE procedure:2DECHO W DOPPLER(CW/PW/COLOR) (Pending Discharge) Indications:Unexplained Pre-syncope/Syncope. Clinical History HGB 13.4 HCT 41.7 % CAD, CP, SYNCOPE, AFIB, COPD, CHF ACBX2: 01/23/16 Height: 69 inches Weight: 73.94 kg (163 lbs) BSA: 1.89 m^2 BMI: 24.07 kg/m^2 HR: 77 bpm BP: 145/82 mmHg Summary 1.Septal motion is abnormal, likely related to prior cardiac surgery . The other segments contract normally. Estimated LVEF by qualitative assessment is normal (55-60%) . 2.Grade 1 diastolic dysfunction (impaired relaxation and low-normal LA pressure). 3. The right ventricular chamber size and systolic function are within normal limits. Previous Study No prior exam available for comparison. Signature Findings Technical Quality: Technically adequate exam. Left Ventricle The left ventricle is chamber size (by vol index) is normal (male - LVED vol - 34-74ml/m2). LV septal thickness is moderately increased (1.5-1.6cm). LV posterior wall thickness is normal (0.6-1.1cm) . Mild basal septal hypertrophy is present. Septal motion is abnormal, likely related to prior cardiac surgery . The other segments contract normally. Global LV systolic function normal . Estimated LVEF by qualitative assessment is normal (55-60%) . Grade 1 diastolic dysfunction (impaired relaxation and low-normal LA pressure). Left Atrium LA size is normal (16-34 ml/m2) . Right Ventricle The right ventricular chamber size and systolic function are within normal limits. Right Atrium RA cavity size is normal . Aortic Valve Mild AoV cusp thickening. AoV cusp mobility is normal . Mitral Valve Mild MV leaflet thickening. No evidence of mitral regurgitation. Tricuspid Valve TV structure is normal. A trace of tricuspid regurgitation. Estimated peak systolic PA pressure cannot be determined due to inadequate TR velocity signal . Pulmonic Valve Normal PV structure and function by limited views and Doppler. Aorta Aortic root size (SInus of Valsalva diameter) is normal . Pericardium No pericardial effusion is visualized. IVC/SVC/PA/PV/Pleural The estimated RA pressure by IVC dynamics 0-5mmHg . The inferior vena cava size is normal . The inferior vena cava is adequately visualized. Chambers/Structures Left Atrium LA Volume: 35.74 ml LA Area: 14.03 cm^2 LA Vol. Index: 19 ml/m^2 Left Ventricle LVIDd: 4.41 cm LVEDV:88.13 ml LV Septum Diastolic: 1.68 cm LV PW Diastolic: 0.73 cm LVEDV Greer's:117.19 ml LVEDVI: 62 ml/m^2 LVOT Diameter: 2.15 cm Aorta Ao Root S of Nneka.: 3.14 cm Doppler/Quantitative Measurements Mitral Valve MV Peak E-Wave: 0.56 m/s MV Peak A-Wave: 0.59 m/s E/A Ratio: 0.95 Peak Gradient: 1.24 mmHg Deceleration Time: 245.4 msec MV Brad. Peak: Tissue Doppler E' Septal Velocity: 0.04 m/s E/E': 15.38 Aortic Valve Peak Velocity: 1.09 m/s Mean Velocity: 0.75 m/s Peak Gradient: 4.72 mmHg Mean Gradient: 2.55 mmHg AV Area (continuity): 3.94 cm^2 AV VTI: 20.76 cm AV DVI: 1.09 LVOT Peak Velocity: 1.17 m/s Peak Gradient: 5.51 mmHg Mean Velocity: 0.73 m/s Mean Gradient: 2.52 mmHg LVOT Diameter: 2.15 cm LVOT VTI: 22.56 cm LVOT Area: 3.63 cm^2 LVOT SV:81.86 ml LVOT CO: 6.3 l/min LVOT CI: 3.33 l/min/m^2 US abdomen limited (05/11/2018 8:39 AM) Specimen Performing Laboratory [facility] RIS Narrative FINAL REPORT INDICATION: 57-year-old inpatient male with abnormal liver function tests. TECHNIQUE: Abdominal ultrasound limited (right upper quadrant). COMPARISON: CTA exam May 10, 2018 FINDINGS: Pancreas, to the extent visualized, is normal. Proximal, mid, and distal abdominal aorta visualized and unremarkable. IVC unremarkable. Echogenicity of the liver parenchyma unremarkable. Liver contour is smooth and liver appears normal in size. Main portal vein is normal in diameter measuring 0.8 cm and demonstrates hepatopedal flow. Patient is status post cholecystectomy. Common bile duct is dilated measuring 1.0 cm. Right kidney is normal in size measuring 10.5 x 5.1 x 5.0 cm. Cortical thickness of the right kidney appears normal. No right hydronephrosis or right renal mass. No ascites or pleural effusion demonstrated. IMPRESSION: Prior cholecystectomy with dilated common bile duct. Biliary ductal dilatation may represent increased capacitance of the biliary system. Obstructing stone or lesion also considered. Signed: Jan Rowell MD Report Verified Date/Time:05/11/2018 16:15:41 Reading Location: [address] Ultrasound Reading Room Procedure Note Interface, External Ris In - 05/11/2018 4:17 PM CDT FINAL REPORT INDICATION: 57-year-old inpatient male with abnormal liver function tests. TECHNIQUE: Abdominal ultrasound limited (right upper quadrant). COMPARISON: CTA exam May 10, 2018 FINDINGS: Pancreas, to the extent visualized, is normal. Proximal, mid, and distal abdominal aorta visualized and unremarkable. IVC unremarkable. Echogenicity of the liver parenchyma unremarkable. Liver contour is smooth and liver appears normal in size. Main portal vein is normal in diameter measuring 0.8 cm and demonstrates hepatopedal flow. Patient is status post cholecystectomy. Common bile duct is dilated measuring 1.0 cm. Right kidney is normal in size measuring 10.5 x 5.1 x 5.0 cm. Cortical thickness of the right kidney appears normal. No right hydronephrosis or right renal mass. No ascites or pleural effusion demonstrated. IMPRESSION: Prior cholecystectomy with dilated common bile duct. Biliary ductal dilatation may represent increased capacitance of the biliary system. Obstructing stone or lesion also considered. Signed: Jan Rowell MD Report Verified Date/Time: 05/11/2018 16:15:41 Reading Location: [address] Ultrasound Reading Room Renal with Doppler (05/11/2018 8:39 AM) Specimen Performing Laboratory [employer] FINAL REPORT INDICATION: 57-year-old inpatient male with hypertension. TECHNIQUE: Renal ultrasound exam with color flow and spectral Doppler. COMPARISON: CTA May 10, 2018 FINDINGS: Right kidney measures 10.5 x 5.1 x 5.0 cm. Left kidney measures 10.3 x 6.6 x 5.9 cm. No renal mass or hydronephrosis. Prevoid bladder volume is 260 cc. Postvoid bladder volume is 73 cc. No bladder wall abnormality. Doppler: Peak systolic velocity in the abdominal aorta is 43 cm/s. The highest measured velocity in the right renal artery is 125 cm/s, which is proximal near the aorta. Right renal artery to aorta ratio is 2.9. Velocity in the right mid renal artery is 111 cm/s and at the right renal hilum is 50 cm/s. The highest measured velocity in the left renal artery is 63 cm/s, which is proximal near the aorta. Left renal artery to aorta ratio is 1.5. Velocity in the left mid renal artery is 55 cm/s and at the left renal hilum 40 cm/s. Both renal veins are patent. Normal examination time and resistive indices are demonstrated in the upper, mid, and lower poles of each kidney. IMPRESSION: Elevated right renal artery to aorta ratio of 2.9, though not reaching criterion for renal artery stenosis (3.5). Normal renal size. No renal mass and no hydronephrosis. Postvoid residual of 73 cc, may represent bladder are without obstruction. Enlarged prostate noted on CT exam yesterday. Signed: Jan Rowell MD Report Verified Date/Time:05/11/2018 16:28:02 Reading Location: [address] Ultrasound Reading Room Procedure Note Interface, External Ris In - 05/11/2018 4:30 PM CDT FINAL REPORT INDICATION: 57-year-old inpatient male with hypertension. TECHNIQUE: Renal ultrasound exam with color flow and spectral Doppler. COMPARISON: CTA May 10, 2018 FINDINGS: Right kidney measures 10.5 x 5.1 x 5.0 cm. Left kidney measures 10.3 x 6.6 x 5.9 cm. No renal mass or hydronephrosis. Prevoid bladder volume is 260 cc. Postvoid bladder volume is 73 cc. No bladder wall abnormality. Doppler: Peak systolic velocity in the abdominal aorta is 43 cm/s. The highest measured velocity in the right renal artery is 125 cm/s, which is proximal near the aorta. Right renal artery to aorta ratio is 2.9. Velocity in the right mid renal artery is 111 cm/s and at the right renal hilum is 50 cm/s. The highest measured velocity in the left renal artery is 63 cm/s, which is proximal near the aorta. Left renal artery to aorta ratio is 1.5. Velocity in the left mid renal artery is 55 cm/s and at the left renal hilum 40 cm/s. Both renal veins are patent. Normal examination time and resistive indices are demonstrated in the upper, mid, and lower poles of each kidney. IMPRESSION: Elevated right renal artery to aorta ratio of 2.9, though not reaching criterion for renal artery stenosis (3.5). Normal renal size. No renal mass and no hydronephrosis. Postvoid residual of 73 cc, may represent bladder are without obstruction. Enlarged prostate noted on CT exam yesterday. Signed: Jan Rowell MD Report Verified Date/Time: 05/11/2018 16:28:02 Reading Location: [facility] [id number] Ultrasound Reading Room Calcium, Ionized (05/11/2018 3:30 AM)Only the most recent of2 resultswithin the time period is included. Component Value Ref Range Calcium, Ion 1.16 1.12 - 1.27 mmol/L pH, Blood 7.40 Specimen Performing Laboratory Blood - Arm, Right [address] [address] Phosphorus (05/11/2018 3:30 AM)Only the most recent of2 resultswithin the time period is included. Component Value Ref Range Phosphorus 3.5 2.3 - 4.7 mg/dL Specimen Performing Laboratory Blood - Arm, [address] [address] Magnesium (05/11/2018 3:30 AM)Only the most recent of2 resultswithin the time period is included. Component Value Ref Range Magnesium 2.4 1.6 - 2.6 mg/dL Specimen Performing Laboratory Blood - Arm, [address] [address] Comprehensive metabolic panel (05/11/2018 3:30 AM)Only the most recent of2 resultswithin the time period is included. Component Value Ref Range Protein, Total 6.8 6.0 - 8.3 gm/dL Albumin 3.6 3.5 - 5.0 g/dL Alkaline Phosphatase 58 40 - 150 U/L Total Bilirubin 0.6 0.2 - 1.2 mg/dL Sodium 140 136 - 145 meq/L Potassium 3.6 3.5 - 5.1 meq/L Chloride 105 98 - 107 meq/L CO2 28 22 - 29 meq/L BUN 14 7 - 21 mg/dL Creatinine 0.85 0.57 - 1.25 mg/dL Glucose 83 70 - 105 mg/dL Calcium 9.0 8.4 - 10.2 mg/dL AST 68 (H) 5 - 34 U/L ALT 72 (H) 6 - 55 U/L EGFR 92Comment: ESTIMATED GFR IS NOT ACCURATE mL/min/1.73 sq m CREATININE CLEARANCE IN PREDICTING GLOMERULAR FILTRATION RATE. ESTIMATED GFR IS NOT APPLICABLE FOR DIALYSIS PATIENTS. Specimen Performing Laboratory Blood - Arm, [address] [address] CTA chest, abdomen & pelvis - for dissection (05/10/2018 6:41 PM) Specimen Performing Laboratory [facility] RIS Narrative Addendum Begins REPORT STATUS:A Addendum: I agree with the previously described non vascular findings. Signed: Antionette Hinojosa MD Report Verified Date/Time:05/11/2018 14:11:09 Reading Location: [place] [address] Angio Body Reading Room Addendum Ends FINAL REPORT CT angiography of the thoracoabdominal aorta and pelvic arteries, 10 May 2018 INDICATION: This is a 57 year old male with chest pain presents for assessment. This study is performed in an attempt to avoid an invasive procedure. TECHNIQUE: Spiral acquisition before and during intravenous contrast administration using a Lexx multidetector CT scanner. Images were obtained before and during the dynamic passage of intravenous contrast material.Multi-planar 3-D volume-rendering reconstruction was performed using an independent workstation interactively by the interpreting physician as well as the 3-D specialist for optimal visualisation of the thoracoabdominal aorta, the pelvic arteries as well as its proximal branches. Please refer to the contrast sheet scanned in the EPIC system for the amount and route of contrast given. This exam was performed according to our departmental dose-optimisation programme, which includes automated exposure control, adjustment of the mA and/or kV according to patient size and/or use of iterative reconstruction technique. Dose modulation, iterative reconstruction, and/or weight based adjustment of the mA/kV was utilized to reduce the radiation dose to as low as reasonably achievable. FINDINGS: VASCULAR: The central pulmonary artery is normal in calibre. There is no evidence of central pulmonary artery embolism. The cardiac chambers demonstrate normal atrioventricular and ventriculoarterial concordance, and systemic and pulmonary venous return. The left ventricle is normal in size. Coronary artery origins are normal and diffuse coronary artery calcification is seen in the [place] coronary territories. Patient is post coronary artery bypass surgery. A left internal mammary artery is identified that is patent, connecting to the LAD distally. A bypass graft is seen to the right coronary artery that is also patent. Regarding the aorta, the thoracic aorta is unremarkable. No ectasia or aneurysmal dilation is seen. Scattered calcific and noncalcific atherosclerosis seen predominantly in the descending thoracic aorta. In the abdominal aorta, circumferential [id number] calcific atherosclerosis is seen. Overall, no ectasia or aneurysmal dilation is identified. There is no acute aortic pathology including dissection or contained rupture in the entire thoracoabdominal aorta. Arch vessel branching pattern is normal and the visualised arch vessels are seen to be widely patent proximally. Only eccentric nonobstructive calcification is seen in the takeoff of the left and the right subclavian arteries. Quantitative dimensions of the aorta are as follows: 3.3 cm at the sinuses of Valsalva (the sino-tubular junction is preserved); 3.0 cm at the proximal ascending thoracic aorta; 3.2cm at the mid ascending aorta; 2.9cm at the distal ascending aorta; 2.7 cm at the mid transverse arch; 2.6 cm at the proximal descending aorta; 2.5 cm at the mid descending aorta; 2.3 cm at the diaphragmatic hiatus. In the abdomen,the aorta measures2.2 cm at the mesenteric segment; 2.2cm at the renal segment,; and 2.0 cm at the aortic bifurcation. The coeliac axis, SMA, KEITH are patent. Replaced right hepatic artery is seen that is patent. No stenosis is identified. There are in total two left and single right renal arteries. The main left renal artery has eccentric nonobstructive calcific atherosclerosis identified. The accessory inferior left renal artery is somewhat small in calibre. The origin of the right renal artery have calcific atherosclerosis identified. This appears to be nonobstructive. However, in the mid right renal artery, at image 214, mild dilation is identified measure up to 6 mm in size, and furthermore more distally, before right renal hilum, at image 202, further mildly dilation is seen measure 8 mm. 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 The common iliac, external iliac, and the common femoral arteries are remarkable for scattered calcific and noncalcific atherosclerosis. No obstructive lesions identified. The degree of calcification increases in the femoral level, bilaterally, however, at most mild stenosis is seen as half of the cross-sectional area of the lumen of the vessel is still patent. The right SFA is patent with eccentric nonobstructive calcific atherosclerosis identified. Some eccentric calcific atherosclerosis seen at the ostium of the left SFA making accurate assessment limited. NONVASCULAR: The visualised thyroid gland appears unremarkable. The chest wall and mediastinum has no acute abnormality seen. Patient is post median sternotomy. No pericardial effusion is identified. Small lymph is also seen in the mediastinum, that are not enlarged, therefore considered nonspecific in nature. In the lung windows, no obvious endobronchial lesion is seen, and no pleural effusion is identified. Some dependent changes are seen in the lung bases. Paraseptal pulmonary emphysematous changes are seen. Subpleural pus identified in the posterior aspect of the right upper lobe indicating prior asbestos exposure. A 1-2 mm nodule is identified along the fissure of the left lung at image 93 indicating interfissural lymph node. Overall, no suspicious pulmonary nodule is identified. In the abdomen, the liver and spleen appears unremarkable. The liver edge is smooth. No abnormal enhancing structure is identified. The adrenal glands are not enlarged. Patient is post cholecystectomy. The pancreas appears unremarkable. No acute renal pathology is seen and no hydronephrosis or perirenal fluid collections identified. A 1.2 cm renal cyst is identified in the posterior aspect of the left kidney at image 299. Bowel is incompletely assessed as enteric contrast is not given, however, there is residual barium in the right-sided bile with associated beam hardening artefact making assessment of the adjacent structures limited. Overall, no obvious bowel dilation is appreciated. Small bilateral fat-containing inguinal hernia is seen. The prostate gland is mildly prominent. The bladder appears unremarkable.Small lymph is seen in both groins, considered nonspecific in nature. No significant retroperitoneal adenopathy is identified. In the right posteriorly, subcutaneously, spinal stimulator is identified, again with associated beam hardening artefact. In the bony windows, no acute bony pathology is seen, except for the presence of some minimal degenerative changes. CONCLUSIONS: 1.The thoracoabdominal aorta is no acute aortic pathology is identified except for scattered calcific and noncalcific atherosclerosis is described above. No ectasia or aneurysmal dilation is identified. There is no aortic pathology is identified including dissection or contained rupture. Scattered calcification seen in the pelvic arteries with no significant obstructive lesion identified. Quantitative dimensions of the abdominal aorta are as described above. Interestingly, 2 small dilation is seen along the path of the right renal artery, that could be an incidental finding, as described above. One can consider interval follow-up to document stability. Patient is post coronary artery bypass surgery. 2.No acute pulmonary pathology is identified. No evidence of central pulmonary artery embolism. 3.Other findings as described above. 4.An addendum will be dictated by the Mine Technician Radiologist regarding the nonvascular findings. Signed: Magno Augustin MD Report Verified Date/Time:05/10/2018 18:58:16 Reading Location: [place] [address] Cardiology MRI Procedure Note Interface, External Ris In - 05/11/2018 2:13 PM CDT Addendum Begins REPORT STATUS:A Addendum: I agree with the previously described non vascular findings. Signed: Antionette Hinojosa MD Report Verified Date/Time: 05/11/2018 14:11:09 Reading Location: [place] [address] Angio Body Reading Room Addendum Ends FINAL REPORT CT angiography of the thoracoabdominal aorta and pelvic arteries, 10 May 2018 INDICATION: This is a 57 year old male with chest pain presents for assessment. This study is performed in an attempt to avoid an invasive procedure. TECHNIQUE: Spiral acquisition before and during intravenous contrast administration using a Lexx multidetector CT scanner. Images were obtained before and during the dynamic passage of intravenous contrast material. Multi-planar 3-D volume-rendering reconstruction was performed using an independent workstation interactively by the interpreting physician as well as the 3-D specialist for optimal visualisation of the thoracoabdominal aorta, the pelvic arteries as well as its proximal branches. Please refer to the contrast sheet scanned in the EPIC system for the amount and route of contrast given. This exam was performed according to our departmental dose-optimisation programme, which includes automated exposure control, adjustment of the mA and/or kV according to patient size and/or use of iterative reconstruction technique. Dose modulation, iterative reconstruction, and/or weight based adjustment of the mA/kV was utilized to reduce the radiation dose to as low as reasonably achievable. FINDINGS: VASCULAR: The central pulmonary artery is normal in calibre. There is no evidence of central pulmonary artery embolism. The cardiac chambers demonstrate normal atrioventricular and ventriculoarterial concordance, and systemic and pulmonary venous return. The left ventricle is normal in size. Coronary artery origins are normal and diffuse coronary artery calcification is seen in the [place] coronary [place]. Patient is post coronary artery bypass surgery. A left internal mammary artery is identified that is patent, connecting to the LAD distally. A bypass graft is seen to the right coronary artery that is also patent. Regarding the aorta, the thoracic aorta is unremarkable. No ectasia or aneurysmal dilation is seen. Scattered calcific and noncalcific atherosclerosis seen predominantly in the descending thoracic aorta. In the abdominal aorta, circumferential [id number] calcific atherosclerosis is seen. Overall, no ectasia or aneurysmal dilation is identified. There is no acute aortic pathology including dissection or contained rupture in the entire thoracoabdominal aorta. Arch vessel branching pattern is normal and the visualised arch vessels are seen to be widely patent proximally. Only eccentric nonobstructive calcification is seen in the takeoff of the left and the right subclavian arteries. Quantitative dimensions of the aorta are as follows: 3.3 cm at the sinuses of Valsalva (the sino-tubular junction is preserved); 3.0 cm at the proximal ascending thoracic aorta; 3.2 cm at the mid ascending aorta; 2.9 cm at the distal ascending aorta; 2.7 cm at the mid transverse arch; 2.6 cm at the proximal descending aorta; 2.5 cm at the mid descending aorta; 2.3 cm at the diaphragmatic hiatus. In the abdomen, the aorta measures 2.2 cm at the mesenteric segment; 2.2 cm at the renal segment,; and 2.0 cm at the aortic bifurcation. The coeliac axis, SMA, KEITH are patent. Replaced right hepatic artery is seen that is patent. No stenosis is identified. There are in total two left and single right renal arteries. The main left renal artery has eccentric nonobstructive calcific atherosclerosis identified. The accessory inferior left renal artery is somewhat small in calibre. The origin of the right renal artery have calcific atherosclerosis identified. This appears to be nonobstructive. However, in the mid right renal artery, at image 214, mild dilation is identified measure up to 6 mm in size, and furthermore more distally, before right renal hilum, at image 202, further mildly dilation is seen measure 8 mm. 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 The common iliac, external iliac, and the common femoral arteries are remarkable for scattered calcific and noncalcific atherosclerosis. No obstructive lesions identified. The degree of calcification increases in the femoral level, bilaterally, however, at most mild stenosis is seen as half of the cross-sectional area of the lumen of the vessel is still patent. The right SFA is patent with eccentric nonobstructive calcific atherosclerosis identified. Some eccentric calcific atherosclerosis seen at the ostium of the left SFA making accurate assessment limited. NONVASCULAR: The visualised thyroid gland appears unremarkable. The chest wall and mediastinum has no acute abnormality seen. Patient is post median sternotomy. No pericardial effusion is identified. Small lymph is also seen in the mediastinum, that are not enlarged, therefore considered nonspecific in nature. In the lung windows, no obvious endobronchial lesion is seen, and no pleural effusion is identified. Some dependent changes are seen in the lung bases. Paraseptal pulmonary emphysematous changes are seen. Subpleural pus identified in the posterior aspect of the right upper lobe indicating prior asbestos exposure. A 1-2 mm nodule is identified along the fissure of the left lung at image 93 indicating interfissural lymph node. Overall, no suspicious pulmonary nodule is identified. In the abdomen, the liver and spleen appears unremarkable. The liver edge is smooth. No abnormal enhancing structure is identified. The adrenal glands are not enlarged. Patient is post cholecystectomy. The pancreas appears unremarkable. No acute renal pathology is seen and no hydronephrosis or perirenal fluid collections identified. A 1.2 cm renal cyst is identified in the posterior aspect of the left kidney at image 299. Bowel is incompletely assessed as enteric contrast is not given, however, there is residual barium in the right-sided bile with associated beam hardening artefact making assessment of the adjacent structures limited. Overall, no obvious bowel dilation is appreciated. Small bilateral fat-containing inguinal hernia is seen. The prostate gland is mildly prominent. The bladder appears unremarkable. Small lymph is seen in both groins, considered nonspecific in nature. No significant retroperitoneal adenopathy is identified. In the right posteriorly, subcutaneously, spinal stimulator is identified, again with associated beam hardening artefact. In the bony windows, no acute bony pathology is seen, except for the presence of some minimal degenerative changes. CONCLUSIONS: 1. The thoracoabdominal aorta is no acute aortic pathology is identified except for scattered calcific and noncalcific atherosclerosis is described above. No ectasia or aneurysmal dilation is identified. There is no aortic pathology is identified including dissection or contained rupture. Scattered calcification seen in the pelvic arteries with no significant obstructive lesion identified. Quantitative dimensions of the abdominal aorta are as described above. Interestingly, 2 small dilation is seen along the path of the right renal artery, that could be an incidental finding, as described above. One can consider interval follow-up to document stability. Patient is post coronary artery bypass surgery. 2. No acute pulmonary pathology is identified. No evidence of central pulmonary artery embolism. 3. Other findings as described above. 4. An addendum will be dictated by the Mine Technician Radiologist regarding the nonvascular findings. Signed: Magno Augustin MD Report Verified Date/Time: 05/10/2018 18:58:16 Reading Location: [place] [address] Cardiology MRI IAC CATH REPORT - SCAN (05/10/2018 5:43 PM)US renal complete (05/10/2018 11 :15 AM) Specimen Performing Laboratory [facility] Narrative FINAL REPORT TECHNIQUE: Grayscale ultrasound of the kidneys and bladder. INDICATION: 57-year-old man with acute kidney injury. COMPARISON: None. FINDINGS: RIGHT KIDNEY: The right kidney measures 11.8 cm. Cortical thickness measures 1.4 cm. No solid mass lesions. No hydronephrosis. Renal artery and vein are patent. LEFT KIDNEY: The left kidney measures 10.4 cm. Cortical thickness measures 1.3 cm. No solid mass lesions. 2 x 1.5 x 0.9 cm cyst in the lower pole with multiple thin internal septations. No hydronephrosis. Renal artery and vein are patent. BLADDER: Unremarkable. IMPRESSION: No hydronephrosis. 2 cm mildly complicated cyst in the left kidney. Abdomen CT or MRI with and without intravenous contrast (renal protocol) is recommended for further evaluation. Signed: Stella Ruano MD Report Verified Date/Time:05/10/2018 13:00:32 Reading Location: [place] [id number] Ultrasound Reading Room Procedure Note Interface, External Ris In - 05/10/2018 1:02 PM CDT FINAL REPORT TECHNIQUE: Grayscale ultrasound of the kidneys and bladder. INDICATION: 57-year-old man with acute kidney injury. COMPARISON: None. FINDINGS: RIGHT KIDNEY: The right kidney measures 11.8 cm. Cortical thickness measures 1.4 cm. No solid mass lesions. No hydronephrosis. Renal artery and vein are patent. LEFT KIDNEY: The left kidney measures 10.4 cm. Cortical thickness measures 1.3 cm. No solid mass lesions. 2 x 1.5 x 0.9 cm cyst in the lower pole with multiple thin internal septations. No hydronephrosis. Renal artery and vein are patent. BLADDER: Unremarkable. IMPRESSION: No hydronephrosis. 2 cm mildly complicated cyst in the left kidney. Abdomen CT or MRI with and without intravenous contrast (renal protocol) is recommended for further evaluation. Signed: Stella Ruano MD Report Verified Date/Time: 05/10/2018 13:00:32 Reading Location: [facility] [id number] Ultrasound Reading Room B-type Natriuretic Factor (BNP) (05/10/2018 5:11 AM)Only the most recent of2 resultswithin the time period is included. Component Value Ref Range BNP 153 (H) 0 - 100 pg/mL Specimen Performing Laboratory Blood - Line, Venous [address] [address] Urinalysis w/Microscopic (05/09/2018 10:02 PM) Component Value Ref Range Color, UA Yellow Clarity, UA Clear Specific [place], UA 1.025 1.001 - 1.035 pH, UA 5.5 5.0 - 8.0 Protein, UA 20 mg/dL (A) Negative Glucose, UA 70 mg/dL (A) Negative Ketones, UA Negative Negative Bilirubin, UA Negative Negative Blood, UA Negative Negative Nitrite, UA Negative Negative Leukocytes, UA Negative Negative Urobilinogen, UA 3.0 (H) 0.2 - 1.0 mg/dL RBC, UA 0 /HPF WBC, UA 2 /HPF Bacteria, UA Rare Mucus Few Squam Epithel, UA 1 /HPF Specimen Source Specimen Performing Laboratory Urine [address] [address] Sodium, random urine (05/09/2018 9:38 PM) Component Value Ref Range Sodium Urine <20 meq/L Specimen Performing Laboratory Urine [address] [address] Narrative Reference Range: No Normals Protein, random urine (05/09/2018 9:38 PM) Component Value Ref Range Protein, Urine 15 (H) 0 - 14 mg/dL Specimen Performing Laboratory Urine [address] [address] Creatinine, random urine (05/09/2018 9:38 PM) Component Value Ref Range Creatinine, Ur 173.4 mg/dL Specimen Performing Laboratory Urine [address] [address] Narrative Reference Range: No Normals Eosinophil smear (05/09/2018 9:22 PM) Component Value Ref Range Eosinophil Smear No EOS seen No EOS seen Specimen Performing Laboratory Urine [facility] [address] [address] TRANSFUSION SERVICE REPORT - SCAN (05/09/2018 5:50 PM)NM lung scan (V/Q) (05/09 11:47 AM) Specimen Performing Laboratory [facility] Narrative FINAL REPORT PROCEDURE: V/Q LUNG SCAN CPT CODE: 65257 INDICATION: Acute chest pain, PE suspected, dyspnea, syncope, paroxysmal atrial fibrillation PROTOCOL: 10.0 mCi ofXe-133 gas was administered by inhalation. Single breath and rebreathing/washout images were obtained in the anterior and the posterior projections.4.38 mCi of Tc-99m MAA was then injected intravenously, and static perfusion images were obtained in multiple projections. FINDINGS: Ventilation: Initial tracer distribution is normal. Washout mildly delayed. Perfusion:Tracer distribution is very mildly heterogeneous. IMPRESSION: Very low probability of acute pulmonary embolization. Signed: Edmond Pimentel MD Report Verified Date/Time:05/09/2018 12:03:05 Reading Location: [address] Med Reading Room Procedure Note Interface, External Ris In - 05/09/2018 12:05 PM CDT FINAL REPORT PROCEDURE: V/Q LUNG SCAN CPT CODE: 28303 INDICATION: Acute chest pain, PE suspected, dyspnea, syncope, paroxysmal atrial fibrillation PROTOCOL: 10.0 mCi of Xe-133 gas was administered by inhalation. Single breath and rebreathing/washout images were obtained in the anterior and the posterior projections. 4.38 mCi of Tc-99m MAA was then injected intravenously, and static perfusion images were obtained in multiple projections. FINDINGS: Ventilation: Initial tracer distribution is normal. Washout mildly delayed. Perfusion: Tracer distribution is very mildly heterogeneous. IMPRESSION: Very low probability of acute pulmonary embolization. Signed: Edmond Pimentel MD Report Verified Date/Time: 05/09/2018 12:03:05 Reading Location: [address] Med Reading Room foot 2 views left (05/09/2018 10:47 AM) Specimen Performing Laboratory [facility] Narrative FINAL REPORT Two views left foot Discussion: There is hallux valgus with degenerative changes. No visible acute fracture, dislocation, destructive lesion. Soft tissues are unremarkable. Signed: Darren Ariza MD Report Verified Date/Time:05/09/2018 13:59:01 Reading Location: [address] Consult Reading Room Procedure Note Interface, External Ris In - 05/09/2018 2:01 PM CDT FINAL REPORT Two views left foot Discussion: There is hallux valgus with degenerative changes. No visible acute fracture, dislocation, destructive lesion. Soft tissues are unremarkable. Signed: Darren Ariza MD Report Verified Date/Time: 05/09/2018 13:59:01 Reading Location: [address] Consult Reading Room esoph swallow funct with cine video (05/09/2018 10:30 AM) Specimen Performing Laboratory [facility] Narrative FINAL REPORT Esophagram History: chest pain Technique: Esophagram was performed using thin liquid barium. Total fluoroscopy time: 0.45 minutes Total number of films: 19 Findings: There is no significant esophageal dysmotility. There is no esophageal diverticulum or hiatus hernia. Mild gastroesophageal reflux was observed.Assessment of the gastric fundal region appear unremarkable. Impression: 1. Mild gastroesophageal reflux. Signed: Michael Genao MD Report Verified Date/Time:05/09/2018 11:00:37 Reading Location: [facility] [id number] Ortho Consult Reading Room Procedure Note Interface, External Ris In - 05/09/2018 11:02 AM CDT FINAL REPORT Esophagram History: chest pain Technique: Esophagram was performed using thin liquid barium. Total fluoroscopy time: 0.45 minutes Total number of films: 19 Findings: There is no significant esophageal dysmotility. There is no esophageal diverticulum or hiatus hernia. Mild gastroesophageal reflux was observed. Assessment of the gastric fundal region appear unremarkable. Impression: 1. Mild gastroesophageal reflux. Signed: Michael Genao MD Report Verified Date/Time: 05/09/2018 11:00:37 Reading Location: [facility] [id number] Ortho Consult Reading Room Venous doppler legs bilateral (05/09/2018 9:20 AM) Component Value Ref Range Ejection Fraction Specimen Performing Laboratory [facility] ECHO [facility]ART[facility] MKCKESSON CPACS Impressions Right Impression 1. There is no deep venous obstruction in the common femoral, profunda femoral, femoral, popliteal, posterior tibial or peroneal veins. 2. There is no superficial venous obstruction in the great saphenous vein. Left Impression 1. There is no deep venous obstruction in the common femoral, profunda femoral, femoral, popliteal, posterior tibial or peroneal veins. 2. There is no superficial venous obstruction in the great saphenous vein Conclusions Summary Venous duplex imaging and compression of the bilateral lower extremities were performed. The veins were adequately visualized. The bilateral venous systems were patent and compressible with no evidence of thrombus. The venous Doppler waveforms were phasic with respiration. Signature Velocities are measured in cm/s ; Diameters are measured in cm Narrative [facility] - Lower Extremities DVT Study Demographics Patient ALHAJI Gooden Date of Study 05/09/2018 Age 57 Visit [id number] Gender Male Date of 12/20 Number Referring Heidy Mena [facility] Number [id number] Physician Supervisor Record Press Elsi Arvizu InterpretingAnnie Gaffney RN, Steve HAYES, [facility] Procedure Type of Study: Veins: Lower Extremities DVT Study, VENOUS DOPPLER LEG, BILATERAL. Indications for Study:DVT. Patient Status:Routine. Study Location:Vascular Lab. Technical Quality:Adequate visualization. Risk Factors History of Disease + +----+ + !Diagnosis!Date!Comments ! + +----+ + !History/Risk Factors:!!CAD, HTN, HLD, COPD, CHF, ATRIAL FIBRILLATION ! + +----+ + Procedure Note Interface, External Ris In - 05/09/2018 11:03 AM CDT PV LAB - Lower Extremities DVT Study Demographics Patient Name ALHAJI MACIAS Date of Study 05/09/2018 Age 57 Visit Number [id number] Gender Male Date of 1960 Number Referring Heidy Vargas Room Number C620 Physician Supervisor Record Press Elsi Arvizu Interpreting Annie Gaffney RN, T Physician , [facility] Procedure Type of Study: Veins: Lower Extremities DVT Study, VENOUS DOPPLER LEG, BILATERAL. Indications for Study:DVT. Patient Status:Routine. Study Location:Vascular Lab. Technical Quality:Adequate visualization. Risk Factors History of Disease + +----+ + !Diagnosis !Date!Comments ! + +----+ + !History/Risk Factors:! !CAD, HTN, HLD, COPD, CHF, ATRIAL FIBRILLATION ! + +----+ + Impressions Right Impression 1. There is no deep venous obstruction in the common femoral, profunda femoral, femoral, popliteal, posterior tibial or peroneal veins. 2. There is no superficial venous obstruction in the great saphenous vein. Left Impression 1. There is no deep venous obstruction in the common femoral, profunda femoral, femoral, popliteal, posterior tibial or peroneal veins. 2. There is no superficial venous obstruction in the great saphenous vein Conclusions Summary Venous duplex imaging and compression of the bilateral lower extremities were performed. The veins were adequately visualized. The bilateral venous systems were patent and compressible with no evidence of thrombus. The venous Doppler waveforms were phasic with respiration. Signature Velocities are measured in cm/s ; Diameters are measured in cm Carotid doppler bilateral (05/09/2018 8:40 AM) Component Value Ref Range Ejection Fraction Specimen Performing Laboratory [facility] Impressions Right Impression 1. There is <50% diameter reduction (approximately 47% by 2-D measurement) in the internal carotid artery with a peak velocity of 55/15 cm/sec and heterogeneous shadowing plaque. 2. There is stenosis in the external carotid artery. 3. There is non-occluding plaque in the common carotid artery. 4. The vertebral artery flow is antegrade. 5. The subclavian artery is patent where visualized. Left Impression 1. There is <50% diameter reduction (approximately 44% by 2-D measurement) in the internal carotid artery with a peak velocity of 56/13 cm/sec and heterogeneous shadowing plaque. 2. There is stenosis in the external carotid artery. 3. There is non-occluding plaque in the common carotid artery. 4. The vertebral artery flow is antegrade. 5. The subclavian artery is patent where visualized. Conclusions Summary Carotid duplex scanning and color flow imaging were performed bilaterally. The arteries were adequately visualized. The bilateral internal carotid arteries had <50% hemodynamically insignificant stenosis (approximately 47% by 2-D measurement on the right, approximately 44% by 2-D measurement on the left) with heterogeneous plaque. The vertebral artery flow was antegrade and normal bilaterally. Signature Velocities are measured in cm/s ; Diameters are measured in cm Carotid Right Measurements + +----+----+-----+ + + + !Location !PSV !EDV !Angle!%Stenosis 2D!%Stenosis Doppler! Tortuosity ! + +----+----+-----+ + + + !Prox CCA !40.1!13.4!60 !! ! ! + +----+----+-----+ + + + !Dist CCA !46.4!18.5!60 !! ! ! + +----+----+-----+ + + + !Prox ICA !55.4!17.7!60 !47% !<50% ! ! + +----+----+-----+ + + + !Mid ICA!46.4!17.7!60 !! ! ! + +----+----+-----+ + + + !Dist ICA !48.7!18.5!60 !! ! ! + +----+----+-----+ + + + !Prox ECA !97.9!19.3!60 !! ! ! + +----+----+-----+ + + + !Prox Subclavian!60.1!11.8!60 !! ! ! + +----+----+-----+ + + + - There is antegrade vertebral flow noted on the right side. - Additional Measurements:ICAPSV/CCAPSV 1.19.ICAEDV/CCAEDV 1.38. Carotid Left Measurements + +----+----+-----+ + + + !Location !PSV !EDV !Angle!%Stenosis 2D!%Stenosis Doppler! Tortuosity ! + +----+----+-----+ + + + !Prox CCA !64.5!17!60 !! ! ! + +----+----+-----+ + + + !Dist CCA !73.9!22.9!60 !! ! ! + +----+----+-----+ + + + !Prox ICA !56.2!13!60 !44% !<50% ! ! + +----+----+-----+ + + + !Dist ICA !78.6!31.1!60 !! ! ! + +----+----+-----+ + + + !Prox ECA !72.1!14.7!60 !! ! ! + +----+----+-----+ + + + !Vertebral!73.3!25.2!60 !! ! ! + +----+----+-----+ + + + !Prox Subclavian!63.3!!60 !! ! ! + +----+----+-----+ + + + - There is antegrade vertebral flow noted on the left side. - Additional Measurements:ICAPSV/CCAPSV 1.06.ICAEDV/CCAEDV 1.83. Narrative PV LAB - Carotid Duplex Study Demographics Patient ALHAJI Gooden Date of Study 05/09/2018 Age 57 Visit [id number] Gender Male Date of 12/20 Number Ezio HOLLEY [facility] Number [id number] Physician OBED Supervisor Record Press Elsi PhippsJ. Wilver Gaffney RN, Steve HAYES, RPVI Procedure Type of Study: Cerebral: Carotid, CAROTID DOPPLER, BILATERAL. Indications for Study:Carotid disease. Patient Status:Routine. Study Location:Vascular Lab. Technical Quality:Adequate visualization. Risk Factors History of Disease + +----+ + !Diagnosis!Date!Comments ! + +----+ + !History/Risk Factors:!!CAD, HTN, HLD, COPD, CHF, ATRIAL FIBRILLATION ! + +----+ + Procedure Note Interface, External Ris In - 05/09/2018 11:04 AM CDT PV LAB - Carotid Duplex Study Demographics Patient Name ALHAJI MACIAS Date of Study 05/09/2018 Age 57 Visit Number [id number] Gender Male Date of 1960 Number Referring [facility] Room Number [id number] Physician OBED Supervisor Record Press Elsi Arvizu Interpreting Annie Gaffney RN, T Physician MD, RPVI Procedure Type of Study: Cerebral: Carotid, CAROTID DOPPLER, BILATERAL. Indications for Study:Carotid disease. Patient Status:Routine. Study Location:Vascular Lab. Technical Quality:Adequate visualization. Risk Factors History of Disease + +----+ + !Diagnosis !Date!Comments ! + +----+ + !History/Risk Factors:! !CAD, HTN, HLD, COPD, CHF, ATRIAL FIBRILLATION ! + +----+ + Impressions Right Impression 1. There is <50% diameter reduction (approximately 47% by 2-D measurement) in the internal carotid artery with a peak velocity of 55/15 cm/sec and heterogeneous shadowing plaque. 2. There is stenosis in the external carotid artery. 3. There is non-occluding plaque in the common carotid artery. 4. The vertebral artery flow is antegrade. 5. The subclavian artery is patent where visualized. Left Impression 1. There is <50% diameter reduction (approximately 44% by 2-D measurement) in the internal carotid artery with a peak velocity of 56/13 cm/sec and heterogeneous shadowing plaque. 2. There is stenosis in the external carotid artery. 3. There is non-occluding plaque in the common carotid artery. 4. The vertebral artery flow is antegrade. 5. The subclavian artery is patent where visualized. Conclusions Summary Carotid duplex scanning and color flow imaging were performed bilaterally. The arteries were adequately visualized. The bilateral internal carotid arteries had <50% hemodynamically insignificant stenosis (approximately 47% by 2-D measurement on the right, approximately 44% by 2-D measurement on the left) with heterogeneous plaque. The vertebral artery flow was antegrade and normal bilaterally. Signature Velocities are measured in cm/s ; Diameters are measured in cm Carotid Right Measurements + +----+----+-----+ + + + !Location !PSV !EDV !Angle!%Stenosis 2D!%Stenosis Doppler!Tortuosity ! + +----+----+-----+ + + + !Prox CCA !40.1!13.4!60 ! ! ! ! + +----+----+-----+ + + + !Dist CCA !46.4!18.5!60 ! ! ! ! + +----+----+-----+ + + + !Prox ICA !55.4!17.7!60 !47% !<50% ! ! + +----+----+-----+ + + + !Mid ICA !46.4!17.7!60 ! ! ! ! + +----+----+-----+ + + + !Dist ICA !48.7!18.5!60 ! ! ! ! + +----+----+-----+ + + + !Prox ECA !97.9!19.3!60 ! ! ! ! + +----+----+-----+ + + + !Prox Subclavian!60.1!11.8!60 ! ! ! ! + +----+----+-----+ + + + - There is antegrade vertebral flow noted on the right side. - Additional Measurements:ICAPSV/CCAPSV 1.19.ICAEDV/CCAEDV 1.38. Carotid Left Measurements + +----+----+-----+ + + + !Location !PSV !EDV !Angle!%Stenosis 2D!%Stenosis Doppler!Tortuosity ! + +----+----+-----+ + + + !Prox CCA !64.5!17 !60 ! ! ! ! + +----+----+-----+ + + + !Dist CCA !73.9!22.9!60 ! ! ! ! + +----+----+-----+ + + + !Prox ICA !56.2!13 !60 !44% !<50% ! ! + +----+----+-----+ + + + !Dist ICA !78.6!31.1!60 ! ! ! ! + +----+----+-----+ + + + !Prox ECA !72.1!14.7!60 ! ! ! ! + +----+----+-----+ + + + !Vertebral !73.3!25.2!60 ! ! ! ! + +----+----+-----+ + + + !Prox Subclavian!63.3! !60 ! ! ! ! + +----+----+-----+ + + + - There is antegrade vertebral flow noted on the left side. - Additional Measurements:ICAPSV/CCAPSV 1.06.ICAEDV/CCAEDV 1.83. [place] level (05/09/2018 7:54 AM) Component Value Ref Range [place] Level 0.4 (L) 0.8 - 1.2 mmol/L Specimen Performing Laboratory Blood - Arm, [address] [address] Lipid panel (05/09/2018 7:54 AM) Component Value Ref Range Triglycerides 161Comment: Specimen slightly hemolyzed mg/dL Cholesterol 111Comment: Specimen slightly hemolyzed mg/dL HDL 39 mg/dL LDL Calculated 40 mg/dL Specimen Performing Laboratory Blood - Arm, [address] [address] Narrative Triglyceride Reference Range: Low Risk <150 [id number] High Risk 200-499 Very High Risk>=500 Cholesterol Reference Range: Low Risk <200 Tzcavqehrj698-647 High Risk>240 HDL Cholesterol Reference Range: Low Risk >=60 High Risk <40 LDL Cholesterol Reference Range: Optimal<100 Near Nfwrmpk623-195 Lyaivclpbl962-749 Ocxa430-634 Very High >=190 Rapid drug screen, urine (05/09/2018 6:32 AM) Component Value Ref Range Barbiturate Screen Negative Negative Benzodiazepine Screen Positive (A) Negative Cocaine (Metab.) Screen Negative Negative Methadone Screen Negative Negative Opiate Screen Positive (A) Negative Cannabinoid Screen Negative Negative Amph/Methamph Screen Negative Negative Phencyclidine Screen Negative Negative Oxycodone Screen Negative Negative Specimen Performing Laboratory Urine [address] [address] Narrative DRUGCUTOFF CONC. Cocaine 300 ng/mL Diedwgwljfh39 ng/mL Rwdlefzbggaswg593 ng/mL Barbiturate 200 ng/mL Fycrwzpdyvsvo79 ng/mL Tloulu713 ng/mL Methadone 300 ng/mL Amphetamine/ 1000 ng/mL Methamphetamine Oxycodone 300 ng/mL This assay provides an unconfirmed qualitative test result for the clinical management of patients in emergency situations. Chain of custody not maintained. Some qxhg-zjt-hlquofl medications, as well as adulterants, may cause inaccurate results. Clinical correlation should be applied. A more comprehensive drug screen or confirmation of a detected drug may be performed upon request. Hemoglobin A1c (05/09/2018 6:30 AM) Component Value Ref Range Hemoglobin A1C 6.3 (H) 4.3 - 6.1 % Specimen Performing Laboratory Blood - Arm, [address] [address] Troponin I (05/09/2018 3:53 AM)Only the most recent of2 resultswithin the time period is included. Component Value Ref Range Troponin I 0.04 (H) 0.00 - 0.03 ng/mL Specimen Performing Laboratory Blood - Arm, [address] [address] Narrative Troponin I (TnI) levels must be interpreted in the context of the presenting symptoms and the clinical findings. Elevated TnI levels indicate myocardial damage, but are not specific for ischemic heart disease. Elevated TnI levels are seen in patients with other cardiac conditions (including myocarditis and congestive heart failure), and slight TnI elevations occur in patients with other conditions, including sepsis, renal failure, acidosis, acute neurological disease, and persistent tachyarrhythmia. CBC (Hemogram only) (05/09/2018 3:53 AM) Component Value Ref Range WBC 15.8 (H) 3.5 - 10.5 K/L RBC 4.80 4.63 - 6.08 M/L Hemoglobin 14.5 13.7 - 17.5 GM/DL Hematocrit 44.0 40.1 - 51.0 % MCV 91.7 79.0 - 92.2 fL MCH 30.2 25.7 - 32.2 pg MCHC 33.0 32.3 - 36.5 GM/DL RDW 14.2 11.6 - 14.4 % Platelets 238 150 - 450 K/CU MM MPV 11.5 9.4 - 12.4 fL nRBC 0 0 - 0 /100 WBC Specimen Performing Laboratory Blood - Arm, [address] [address] Creatine Kinase (CK), Total and MB (05/09/2018 3:53 AM)Only the most recent of2 resultswithin the time period is included. Component Value Ref Range Total CK 161 29 - 200 U/L CK-MB 4.9 0.0 - 6.6 ng/mL MB Relative Index 3.0 % Specimen Performing Laboratory Blood - Arm, [address] [address] Narrative CK-MB Reference Range: <6.7Normal 6.7-10.0Borderline >10.[address] brain without IV contrast (05/08/2018 8:55 PM) Specimen Performing Laboratory [employer] Narrative FINAL REPORT CT, BRAIN, WITHOUT CONTRAST INDICATION: Cerebral hemorrhage suspected TECHNIQUE: Noncontrast axial imaging was obtained from the vertex to the skull base. Axial images were reconstructed using a bone algorithm. DOSE REDUCTION: Dose modulation, iterative reconstruction, and/or weight-based adjustment of the mA/kV was utilized to reduce the radiation dose to as low as reasonably achievable. COMPARISON: None. FINDINGS: Cerebral parenchyma: Volume loss. Appearance of the white matter suggests chronic microvascular disease. No infarct or parenchymal hemorrhage. Midline structures: Normally positioned. Cerebellum and brainstem: Commensurate volume loss. Ventricles: Normal volume. Extra-axial spaces: Unremarkable. Calvarium and skull base: Intact. Paranasal sinuses and mastoid air cells: Complete opacification of the right maxillary chamber with maxillary wall thickening. Similar findings noted in the right frontal sinus. Orbital contents: Included portions unremarkable. Additional findings: Soft tissue hematoma overlying the right frontal scalp. IMPRESSION: Chronic involutional changes without acute traumatic intracranial abnormality. Superficial soft tissue hematoma without underlying skull fracture on the right. Sphenoid and maxillary sinusitis on the right with secondary CT evidence of chronicity. Signed: JR Alva Robert MD Report Verified Date/Time:05/08/2018 21:00:20 Reading Location: [address] Reading Room Procedure Note Interface, External Ris In - 05/08/2018 9:02 PM CDT FINAL REPORT CT, BRAIN, WITHOUT CONTRAST INDICATION: Cerebral hemorrhage suspected TECHNIQUE: Noncontrast axial imaging was obtained from the vertex to the skull base. Axial images were reconstructed using a bone algorithm. DOSE REDUCTION: Dose modulation, iterative reconstruction, and/or weight-based adjustment of the mA/kV was utilized to reduce the radiation dose to as low as reasonably achievable. COMPARISON: None. FINDINGS: Cerebral parenchyma: Volume loss. Appearance of the white matter suggests chronic microvascular disease. No infarct or parenchymal hemorrhage. Midline structures: Normally positioned. Cerebellum and brainstem: Commensurate volume loss. Ventricles: Normal volume. Extra-axial spaces: Unremarkable. Calvarium and skull base: Intact. Paranasal sinuses and mastoid air cells: Complete opacification of the right maxillary chamber with maxillary wall thickening. Similar findings noted in the right frontal sinus. Orbital contents: Included portions unremarkable. Additional findings: Soft tissue hematoma overlying the right frontal scalp. IMPRESSION: Chronic involutional changes without acute traumatic intracranial abnormality. Superficial soft tissue hematoma without underlying skull fracture on the right. Sphenoid and maxillary sinusitis on the right with secondary CT evidence of chronicity. Signed: JR Alva Robert MD Report Verified Date/Time: 05/08/2018 21:00:20 Reading Location: [address] Reading Room Type and screen, automated ([facility]) (05/08/2018 5:54 PM) Component Value Ref Range ABO/RH AUTOMATED (BEAKER) B POSITIVE Ab Scrn NEGATIVE Specimen Performing Laboratory Blood [address] [address] aPTT (05/08/2018 5:54 PM) Component Value Ref Range PTT 30.0 22.5 - 36.0 seconds Specimen Performing Laboratory Blood [address] [address] Narrative Prior to initiating heparin ECG 12 lead (05/08/2018 5:11 PM) Specimen Performing Laboratory [facility] Narrative Ventricular Rate 81 BPM Atrial Rate 81 BPM P-R Interval 170 ms QRS Duration 106 ms Q-T Interval 464 ms QTC Calculation(Bazett) 539 ms P Paradise 59 degrees R Paradise 42 degrees T Paradise 90 degrees Normal sinus rhythm Interatrial conduction delay Anteroseptal infarct (cited on or before 22-JAN-2016) ST elevation in V2-V3 with ST depression in I and II: cannot exclude STEMI Prolonged QT Abnormal ECG When compared with ECG of 29-JAN-2016 05:06, Different placement of leads V3-V5 ST elevation replaced ST depression in V3 and V4 Please repeat with correct precordial leads placement Confirmed by MD JAIMEE, SHELIA ([id number]) on 05/09/2018 5:06:47 AM Procedure Note Interface, External Ris In - 05/09/2018 5:07 AM CDT Ventricular Rate 81 BPM Atrial Rate 81 BPM P-R Interval 170 ms QRS Duration 106 ms Q-T Interval 464 ms QTC Calculation(Bazett) 539 ms P Paradise 59 degrees R Paradise 42 degrees T Paradise 90 degrees Normal sinus rhythm Interatrial conduction delay Anteroseptal infarct (cited on or before 22-JAN-2016) ST elevation in V2-V3 with ST depression in I and II: cannot exclude STEMI Prolonged QT Abnormal ECG When compared with ECG of 29-JAN-2016 05:06, Different placement of leads V3-V5 ST elevation replaced ST depression in V3 and V4 Please repeat with correct precordial leads placement Confirmed by MD HERMOSILLO YOCHAI ([id number]) on 05/09/2018 5:06:47 AM after 05/30/2017
--- OUTSIDE RECORDS SUMMARY | 2018-05-31 09:45 | XMS REPORT ---
:1960 Author Organization [facility] Address [address] [place], [place] [address]aurelia Burns [address] [place] [address] Care Team Providers Name Role Phone GLENN CATHERINE Unavailable Unavailable Problems This patient has no known problems. Allergies, Adverse Reactions, Alerts This patient has no known allergies or adverse reactions. Medications This patient has no known medications. Results Test Description Test Time Test Comments Text Results Atomic Results Result Comments HEPATITIS C ANTIBODY 2018-05-12 16:55:00 Test Item Value Reference Range Comments HEPATITIS C ANTIBODY (BEAKER) (test otno=316) Reactive Nonreactive POCT-GLUCOSE [id number] 12:03:00 Test Item Value Reference Range Comments POC-GLUCOSE METER (BEAKER) 169 mg/dL 70-110 TESTED AT [address] (test hqha=6098) [facility] [id number] HEPATITIS B CORE ANTIBODY, [id number] 08:37:00 Test Item Value Reference Range Comments HEPATITIS B CORE TOTAL ANTIBODY (BEAKER) (test Reactive Nonreactive tncb=521) POCT-GLUCOSE [id number] 08:14:00 Test Item Value Reference Range Comments POC-GLUCOSE METER (BEAKER) 105 mg/dL 70-110 TESTED AT [address] (test iion=4144) [facility] [id number] HEPATIC FUNCTION [id number] 07:10:00 Test Item Value Reference Range Comments TOTAL PROTEIN (BEAKER) (test vitx=820) 6.7 gm/dL 6.0-8.3 ALBUMIN (BEAKER) (test ehri=9655) 3.5 g/dL 3.5-5.0 BILIRUBIN TOTAL (BEAKER) (test dzue=719) 0.5 mg/dL 0.2-1.2 BILIRUBIN DIRECT (BEAKER) (test rmul=328) 0.3 mg/dL 0.1-0.5 ALKALINE PHOSPHATASE (BEAKER) (test ynii=305) 60 U/L 40-150 AST (SGOT) (BEAKER) (test bqua=940) 47 U/L 5-34 ALT (SGPT) (BEAKER) (test yiai=644) 67 U/L 6-55 BASIC METABOLIC [id number] 07:10:00 Test Item Value Reference Range Comments SODIUM (BEAKER) (test 138 meq/L 136-145 ohpt=402) POTASSIUM (BEAKER) (test 3.8 meq/L 3.5-5.1 jsvd=821) CHLORIDE (BEAKER) (test 104 meq/L 98-107 mqfr=777) CO2 (BEAKER) (test 25 meq/L 22-29 rgoz=723) BLOOD UREA NITROGEN 18 mg/dL 7-21 (BEAKER) (test kqsy=922) CREATININE (BEAKER) (test 0.94 mg/dL 0.57-1.25 dnqd=863) GLUCOSE RANDOM (BEAKER) 109 mg/dL 70-105 (test wffb=787) CALCIUM (BEAKER) (test 9.1 mg/dL 8.4-10.2 sjiq=315) EGFR (BEAKER) (test 82 mL/min/1.73 sq m ESTIMATED GFR IS NOT iynv=8527) ACCURATE CREATININE CLEARANCE IN PREDICTING GLOMERULAR FILTRATION RATE. ESTIMATED GFR IS NOT APPLICABLE FOR DIALYSIS PATIENTS. HEPATITIS B SURFACE [id number] 06:58:00 Test Item Value Reference Range Comments HEPATITIS B SURFACE ANTIBODY (BEAKER) (test < mIU/mL <8.0 swug=436) HEPATITIS B SURFACE [id number] 05:42:00 Test Item Value Reference Range Comments HEPATITIS B SURFACE ANTIGEN (2) (BEAKER) (test Nonreactive Nonreactive vurk=0676) HEPATITIS B CORE ANTIBODY, [id number] 05:42:00 Test Item Value Reference Range Comments HEPATITIS B CORE IGM ANTIBODY (BEAKER) (test Nonreactive Nonreactive xkci=776) CBC W/PLT COUNT & AUTO [id number] 04:56:00 Test Item Value Reference Range Comments WHITE BLOOD CELL COUNT (BEAKER) (test yjat=912) 9.4 K/ L 3.5-10.5 RED BLOOD CELL COUNT (BEAKER) (test nust=187) 4.48 M/ L 4.63-6.08 HEMOGLOBIN (BEAKER) (test knml=459) 13.6 GM/DL 13.7-17.5 HEMATOCRIT (BEAKER) (test cpsi=169) 41.5 % 40.1-51.0 MEAN CORPUSCULAR VOLUME (BEAKER) (test sxup=577) 92.6 fL 79.0-92.2 MEAN CORPUSCULAR HEMOGLOBIN (BEAKER) (test 30.4 pg 25.7-32.2 xzpe=282) MEAN CORPUSCULAR HEMOGLOBIN CONC (BEAKER) (test 32.8 GM/DL 32.3-36.5 nfsf=920) RED CELL DISTRIBUTION WIDTH (BEAKER) (test 13.5 % 11.6-14.4 wtft=961) PLATELET COUNT (BEAKER) (test ahrj=342) 218 K/CU MM 150-450 MEAN PLATELET VOLUME (BEAKER) (test pwtn=449) 11.3 fL 9.4-12.4 NUCLEATED RED BLOOD CELLS (BEAKER) (test 0 /100 WBC 0-0 gtfc=662) NEUTROPHILS RELATIVE PERCENT (BEAKER) (test 52 % rcqa=542) LYMPHOCYTES RELATIVE PERCENT (BEAKER) (test 31 % awhs=001) MONOCYTES RELATIVE PERCENT (BEAKER) (test 8 % muuj=567) EOSINOPHILS RELATIVE PERCENT (BEAKER) (test 8 % nmgt=516) BASOPHILS RELATIVE PERCENT (BEAKER) (test 1 % iujv=747) NEUTROPHILS ABSOLUTE COUNT (BEAKER) (test 4.85 K/ L 1.78-5.38 tbmt=889) LYMPHOCYTES ABSOLUTE COUNT (BEAKER) (test 2.92 K/ L 1.32-3.57 ftpo=427) MONOCYTES ABSOLUTE COUNT (BEAKER) (test 0.77 K/ L 0.30-0.82 yxhj=646) EOSINOPHILS ABSOLUTE COUNT (BEAKER) (test 0.79 K/ L 0.04-0.54 amki=578) BASOPHILS ABSOLUTE COUNT (BEAKER) (test 0.06 K/ L 0.01-0.08 eldn=917) IMMATURE GRANULOCYTES-RELATIVE PERCENT (BEAKER) 0 % 0-1 (test ftyp=7426) U/S, RENAL WITH [id number] 16:28:00Reason for exam:-> hypertensionFINAL REPORT INDICATION: 57-year-old inpatient male with hypertension. TECHNIQUE: Renal ultrasound exam with color flow and spectral Doppler. COMPARISON: CTA May 10, 2018 FINDINGS:Right kidney measures 10.5 x 5.1 x 5.0 cm.Left kidney measures 10.3 x 6.6 x 5.9 cm.No renal mass or hydronephrosis.Prevoid bladder volume is 260 cc. Postvoid bladder volume is 73 cc.No bladder wall abnormality. Doppler: Peak systolic velocity in the abdominal aorta is 43 cm/s. The highest measured velocity in the right renal artery is 125 cm/s, which is proximal near the aorta. Right renal artery to aorta ratio is 2.9. Velocity in the right mid renal artery is 111 cm/s and at the right renal hilumis 50 cm/s. The highest measured velocity in [...] and lower poles of each kidney. IMPRESSION: Elevatedright renal artery to aorta ratio of 2.9, though not reaching criterion for renal artery stenosis (3.5). Normal renal size. No renal mass and no hydronephrosis. Postvoid residual of 73 cc, may represent bladder are without obstruction. Enlarged prostate noted on CT exam yesterday. Signed: Jan Rowell MDReport Verified Date/Time: 05/11/2018 16: 28:02 Reading Location: [address] Ultrasound Reading Room U/S, ABDOMINAL, [id number] 16:15:00Abdomen limited area? Add comment if clarification is needed.->LiverReason for exam:->mild transaminitisShould this be performed at the bedside?->no preferenceFINAL REPORT INDICATION: 57-year-old inpatient male with abnormal liver function tests. TECHNIQUE: Abdominal ultrasound limited (right upper quadrant). COMPARISON: CTA exam May 10, 2018 FINDINGS:Pancreas, to the extent visualized, is normal. Proximal, [...] represent increased capacitance of the biliary system. Obstructingstone or lesion also considered. Signed: Jan Rowell MDReport Verified Date/Time: 05/11/2018 16 :15:41 Reading Location: [facility] P006J Ultrasound Reading Room CTA, CHEST, ABDOMEN - PELVIS, FOR [id number] 14:11:00Reason for exam:->Chest painAddendum BeginsREPORT STATUS:A Addendum: I agree with the previously described non vascular findings. Signed: Antionette Hinojosa MDReport Verified Date/Time: 05/11/2018 14:11:09 Reading Location: [facility] P048 Angio Body Reading RoomAddendum EndsFINAL REPORT CT angiography of the thoracoabdominal aorta and pelvic arteries, 10 May 2018 INDICATION: This is a 57year old male with chest pain presents for assessment. This study is performed in an attempt to avoid an invasive procedure. TECHNIQUE : Spiral acquisition before and during intravenous contrast [...] in the EPIC system for the amount androute of contrast given. This exam was performed according to our departmental dose-optimisation programme, which includes automated exposure control, adjustment of the mA and/or kV according to patient size and/or use of iterative reconstruction technique. Dose modulation, iterative reconstruction, and/or weight based adjustment of the mA/ kV was utilized to reduce the radiation dose to as low as reasonably achievable. FINDINGS: VASCULAR: The central pulmonary artery is normal in calibre. There is no evidence of central pulmonary artery embolism. The cardiac chambers demonstrate normal atrioventricular and ventriculoarterial concordance , and systemic and pulmonary venous return. The left ventricle is normal in size. Coronary artery origins are normal and diffuse coronary artery calcification is seen in the [place] coronary territories. Patient is post coronary artery [...] thoracic aorta. In the abdominal aorta, circumferential gxcm-bp-qgxiwmkh calcific atherosclerosis is seen. Overall, no ectasia or aneurysmal dilation is identified. There is no acute aortic pathology including dissection or contained rupture in the entire thoracoabdominal aorta. Arch vessel branching pattern is normal and the visualised arch vessels are seen to be widely patent proximally. Only eccentric nonobstructive calcification is seen in the takeoff of theleft and the right subclavian arteries. Quantitative dimensions of the aorta are as follows: 3.3 cm at the sinuses of Valsalva (the sino-tubular junction is preserved); 3.0 cm at the proximal ascendingthoracic aorta; 3.2 cm at the mid ascending aorta; 2.9 cm at the distal ascending aorta; 2.7 cm atthe mid transverse arch; 2.6 cm at the proximal descending aorta; 2.5 cm at the mid descending aorta; 2.3 cm at the diaphragmatic hiatus. In the abdomen, the aorta measures 2.2 cm at the mesenteric segment; 2.2 cm at the renal segment, ; and 2.0 cm at the aortic bifurcation. The coeliac axis, SMA,KEITH are patent. Replaced right hepatic artery is [...] furthermore more distally, before right renal hilum, atimage 202, further mildly dilation is seen measure 8 mm. 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 The common iliac, external iliac, and the common femoral arteries are remarkable for scattered calcific and noncalcific atherosclerosis. No obstructivelesions identified. The degree of calcification increases in the femoral level, bilaterally, however, at most mild stenosis is seen as half of the cross-sectional area of the lumen of the vessel is still patent. The right SFA is patent with eccentric nonobstructive calcific atherosclerosis identified.Some eccentric calcific atherosclerosis seen at the ostium [...] identified in the posterior aspect of the leftkidney at image 299. Bowel is incompletely assessed as enteric contrast is not given, however, thereis residual barium in the right-sided bile with associated beam hardening artefact making assessmentof the adjacent structures limited. Overall, no obvious bowel dilation is appreciated. Small bilateral fat-containing inguinal hernia is seen. The prostate gland is mildly prominent. The bladder appears unremarkable. Small lymph is seen in both groins, considered nonspecific in nature. No significantretroperitoneal adenopathy is identified. In the right posteriorly, [...] No ectasia or aneurysmal dilation is identified. Thereis no aortic pathology is identified including dissection [...] An addendum will be dictated by the Accountant Cost Radiologist regarding the nonvascular findings. Signed: Magno Augustin [facility]ep[facility] Verified Date/Time: 05/10/2018 18:58:16 Reading Location: [place] [address] Cardiology MRI CALCIUM, [id number] 05:20:00 Test Item Value Reference Range Comments CALCIUM IONIZED (BEAKER) (test uegd=608) 1.16 mmol/L 1.12-1.27 PH, BLOOD (BEAKER) (test yqba=8872) 7.40 [id number] 04:29:00 Test Item Value Reference Range Comments PHOSPHORUS (BEAKER) (test qors=307) 3.5 mg/dL 2.3-4.7 [id number] 04:29:00 Test Item Value Reference Range Comments MAGNESIUM (BEAKER) (test xdkt=518) 2.4 mg/dL 1.6-2.6 COMPREHENSIVE METABOLIC [id number] 04:29:00 Test Item Value Reference Range Comments TOTAL PROTEIN (BEAKER) 6.8 gm/dL 6.0-8.3 (test fzmc=621) ALBUMIN (BEAKER) (test 3.6 g/dL 3.5-5.0 dhfb=4034) ALKALINE PHOSPHATASE 58 U/L 40-150 (BEAKER) (test xzwx=306) BILIRUBIN TOTAL (BEAKER) 0.6 mg/dL 0.2-1.2 (test nlmk=829) SODIUM (BEAKER) (test 140 meq/L 136-145 xuqb=150) POTASSIUM (BEAKER) (test 3.6 meq/L 3.5-5.1 lkxe=854) CHLORIDE (BEAKER) (test 105 meq/L 98-107 uorq=880) CO2 (BEAKER) (test 28 meq/L 22-29 pqps=693) BLOOD UREA NITROGEN 14 mg/dL 7-21 (BEAKER) (test jfcf=680) CREATININE (BEAKER) (test 0.85 mg/dL 0.57-1.25 npwp=794) GLUCOSE RANDOM (BEAKER) 83 mg/dL 70-105 (test fybt=050) CALCIUM (BEAKER) (test 9.0 mg/dL 8.4-10.2 bzpo=820) AST (SGOT) (BEAKER) (test 68 U/L 5-34 jxzk=763) ALT (SGPT) (BEAKER) (test 72 U/L 6-55 dmng=122) EGFR (BEAKER) (test 92 mL/min/1.73 sq m ESTIMATED GFR IS NOT vwjo=8677) ACCURATE CREATININE CLEARANCE IN PREDICTING GLOMERULAR FILTRATION RATE. ESTIMATED GFR IS NOT APPLICABLE FOR DIALYSIS PATIENTS. CBC W/PLT COUNT & AUTO [id number] 03:58:00 Test Item Value Reference Range Comments WHITE BLOOD CELL COUNT (BEAKER) (test cpns=048) 10.2 K/ L 3.5-10.5 RED BLOOD CELL COUNT (BEAKER) (test pwee=404) 4.49 M/ L 4.63-6.08 HEMOGLOBIN (BEAKER) (test obkp=535) 13.4 GM/DL 13.7-17.5 HEMATOCRIT (BEAKER) (test qxnc=610) 41.7 % 40.1-51.0 MEAN CORPUSCULAR VOLUME (BEAKER) (test svfy=198) 92.9 fL 79.0-92.2 MEAN CORPUSCULAR HEMOGLOBIN (BEAKER) (test 29.8 pg 25.7-32.2 gptw=541) MEAN CORPUSCULAR HEMOGLOBIN CONC (BEAKER) (test 32.1 GM/DL 32.3-36.5 bjdt=768) RED CELL DISTRIBUTION WIDTH (BEAKER) (test 13.7 % 11.6-14.4 bnpg=635) PLATELET COUNT (BEAKER) (test mfkd=479) 192 K/CU MM 150-450 MEAN PLATELET VOLUME (BEAKER) (test qsyd=794) 10.7 fL 9.4-12.4 NUCLEATED RED BLOOD CELLS (BEAKER) (test 0 /100 WBC 0-0 vnsi=385) NEUTROPHILS RELATIVE PERCENT (BEAKER) (test 53 % xyih=660) LYMPHOCYTES RELATIVE PERCENT (BEAKER) (test 32 % smtc=484) MONOCYTES RELATIVE PERCENT (BEAKER) (test 9 % qvgl=427) EOSINOPHILS RELATIVE PERCENT (BEAKER) (test 5 % qoey=055) BASOPHILS RELATIVE PERCENT (BEAKER) (test 1 % lavc=749) NEUTROPHILS ABSOLUTE COUNT (BEAKER) (test 5.36 K/ L 1.78-5.38 ltxo=427) LYMPHOCYTES ABSOLUTE COUNT (BEAKER) (test 3.23 K/ L 1.32-3.57 fgje=716) MONOCYTES ABSOLUTE COUNT (BEAKER) (test 0.93 K/ L 0.30-0.82 yodj=915) EOSINOPHILS ABSOLUTE COUNT (BEAKER) (test 0.54 K/ L 0.04-0.54 qeel=305) BASOPHILS ABSOLUTE COUNT (BEAKER) (test 0.07 K/ L 0.01-0.08 todu=741) IMMATURE GRANULOCYTES-RELATIVE PERCENT (BEAKER) 0 % 0-1 (test wupb=1125) U/S, RENAL, [id number] 13:00:00Reason for exam:->akiShould this be performed at the bedside?->YesFINAL REPORT TECHNIQUE: Grayscale ultrasound of the kidneys [...] cyst in the lower pole with multiple thininternal septations. No hydronephrosis. Renal artery and vein are patent. BLADDER: Unremarkable. IMPRESSION:No hydronephrosis. 2 cm mildly complicated cyst in the left kidney. Abdomen CT or MRI with and without intravenous contrast (renal protocol) is recommended for further evaluation. Signed: Stella Ruano MDReport Verified Date/Time: 05/10/2018 13:00:32 Reading Location: [address] Ultrasound Reading Room CALCIUM, [id number] 06:58:00 Test Item Value Reference Range Comments CALCIUM IONIZED (BEAKER) (test xpdf=721) 1.08 mmol/L 1.12-1.27 PH, BLOOD (BEAKER) (test kibi=5595) 7.35 B-TYPE NATRIURETIC FACTOR (BNP)2018-05-10 05:49:00 Test Item Value Reference Range Comments B-TYPE NATRIURETIC PEPTIDE (BEAKER) (test 153 pg/mL 0-100 wwrj=016) [id number] 05:47:00 Test Item Value Reference Range Comments MAGNESIUM (BEAKER) (test 2.4 mg/dL 1.6-2.6 Specimen slightly hemolyzed bltw=441) [id number] 05:47:00 Test Item Value Reference Range Comments PHOSPHORUS (BEAKER) (test 2.7 mg/dL 2.3-4.7 Specimen slightly hemolyzed txar=640) COMPREHENSIVE METABOLIC [id number] 05:47:00 Test Item Value Reference Range Comments TOTAL PROTEIN (BEAKER) 6.1 gm/dL 6.0-8.3 Specimen slightly (test lvyt=738) hemolyzed ALBUMIN (BEAKER) (test 3.2 g/dL 3.5-5.0 Specimen slightly xtpu=4815) hemolyzed ALKALINE PHOSPHATASE 48 U/L 40-150 (BEAKER) (test ijse=449) BILIRUBIN TOTAL (BEAKER) 0.8 mg/dL 0.2-1.2 Specimen slightly (test axxk=357) hemolyzed SODIUM (BEAKER) (test 140 meq/L 136-145 gmiy=613) POTASSIUM (BEAKER) (test 4.1 meq/L 3.5-5.1 Specimen slightly lfuv=586) hemolyzed CHLORIDE (BEAKER) (test 109 meq/L 98-107 bvyh=417) CO2 (BEAKER) (test 23 meq/L 22-29 thyq=819) BLOOD UREA NITROGEN 24 mg/dL 7-21 (BEAKER) (test ediw=128) CREATININE (BEAKER) (test 0.88 mg/dL 0.57-1.25 Specimen slightly nhay=257) hemolyzed GLUCOSE RANDOM (BEAKER) 88 mg/dL 70-105 (test xscs=766) CALCIUM (BEAKER) (test 8.3 mg/dL 8.4-10.2 qyyz=188) AST (SGOT) (BEAKER) (test 51 U/L 5-34 Specimen slightly wman=115) hemolyzed ALT (SGPT) (BEAKER) (test 74 U/L 6-55 Specimen slightly cjvy=626) hemolyzed EGFR (BEAKER) (test 89 mL/min/1.73 sq m ESTIMATED GFR IS NOT rnef=7580) ACCURATE CREATININE CLEARANCE IN PREDICTING GLOMERULAR FILTRATION RATE. ESTIMATED GFR IS NOT APPLICABLE FOR DIALYSIS PATIENTS. CBC W/PLT COUNT & AUTO [id number] 05:31:00 Test Item Value Reference Range Comments WHITE BLOOD CELL COUNT (BEAKER) (test bvbm=442) 13.0 K/ L 3.5-10.5 RED BLOOD CELL COUNT (BEAKER) (test enzy=917) 4.32 M/ L 4.63-6.08 HEMOGLOBIN (BEAKER) (test qxqn=671) 13.0 GM/DL 13.7-17.5 HEMATOCRIT (BEAKER) (test dwya=480) 40.5 % 40.1-51.0 MEAN CORPUSCULAR VOLUME (BEAKER) (test fcni=156) 93.8 fL 79.0-92.2 MEAN CORPUSCULAR HEMOGLOBIN (BEAKER) (test 30.1 pg 25.7-32.2 dwgx=655) MEAN CORPUSCULAR HEMOGLOBIN CONC (BEAKER) (test 32.1 GM/DL 32.3-36.5 ioba=687) RED CELL DISTRIBUTION WIDTH (BEAKER) (test 13.9 % 11.6-14.4 lvss=026) PLATELET COUNT (BEAKER) (test dtgq=797) 215 K/CU MM 150-450 MEAN PLATELET VOLUME (BEAKER) (test orva=430) 11.2 fL 9.4-12.4 NUCLEATED RED BLOOD CELLS (BEAKER) (test 0 /100 WBC 0-0 mbrx=902) NEUTROPHILS RELATIVE PERCENT (BEAKER) (test 56 % ihul=689) LYMPHOCYTES RELATIVE PERCENT (BEAKER) (test 32 % gibd=804) MONOCYTES RELATIVE PERCENT (BEAKER) (test 9 % qcke=155) EOSINOPHILS RELATIVE PERCENT (BEAKER) (test 2 % ijjb=408) BASOPHILS RELATIVE PERCENT (BEAKER) (test 1 % aeub=693) NEUTROPHILS ABSOLUTE COUNT (BEAKER) (test 7.24 K/ L 1.78-5.38 lrsi=187) LYMPHOCYTES ABSOLUTE COUNT (BEAKER) (test 4.17 K/ L 1.32-3.57 kftd=751) MONOCYTES ABSOLUTE COUNT (BEAKER) (test 1.12 K/ L 0.30-0.82 bqgj=506) EOSINOPHILS ABSOLUTE COUNT (BEAKER) (test 0.30 K/ L 0.04-0.54 esom=893) BASOPHILS ABSOLUTE COUNT (BEAKER) (test 0.07 K/ L 0.01-0.08 kntz=277) IMMATURE GRANULOCYTES-RELATIVE PERCENT (BEAKER) 1 % 0-1 (test gwtv=4803) EOSINOPHIL SMEAR, [id number] 22:19:00 Test Item Value Reference Range Comments EOSINOPHIL SMEAR, URINE (BEAKER) (test No EOS seen No EOS seen aaph=6803) URINALYSIS W/ [id number] 22:13:00 Test Item Value Reference Range Comments COLOR (BEAKER) (test xadd=391) Yellow CLARITY (BEAKER) (test ljur=298) Clear SPECIFIC GRAVITY UA (BEAKER) (test ucpy=582) 1.025 1.001-1.035 PH UA (BEAKER) (test aezl=727) 5.5 5.0-8.0 PROTEIN UA (BEAKER) (test hbyy=676) 20 mg/dL Negative GLUCOSE UA (BEAKER) (test ddav=575) 70 mg/dL Negative KETONES UA (BEAKER) (test qiqo=286) Negative Negative BILIRUBIN UA (BEAKER) (test mhyq=355) Negative Negative BLOOD UA (BEAKER) (test figv=967) Negative Negative NITRITE UA (BEAKER) (test lotf=037) Negative Negative LEUKOCYTE ESTERASE UA (BEAKER) (test qzci=147) Negative Negative UROBILINOGEN UA (BEAKER) (test tgft=825) 3.0 mg/dL 0.2-1.0 RBC UA (BEAKER) (test frqw=161) 0 /HPF WBC UA (BEAKER) (test oovt=664) 2 /HPF BACTERIA (BEAKER) (test cgty=719) Rare MUCUS (BEAKER) (test hgfl=1712) Few SQUAMOUS EPITHELIAL (BEAKER) (test xmux=397) 1 /HPF SOURCE(BEAKER) (test cbzc=2840) SODIUM, RANDOM [id number] 21:38:00 Test Item Value Reference Range Comments SODIUM URINE (BEAKER) (test daee=345) < meq/L Reference Range: No NormalsPROTEIN, RANDOM [id number] 21:38:00 Test Item Value Reference Range Comments PROTEIN, URINE (BEAKER) (test ruhx=5289) 15 mg/dL 0-14 CREATININE, RANDOM [id number] 21:38:00 Test Item Value Reference Range Comments CREATININE URINE (BEAKER) (test vgaq=834) 173.4 mg/dL Reference Range: No NormalsRAD, FOOT, 2 VIEWS, [id number] 13:59:00Reason for exam:->Pain and swelling of left foot after fall.FINAL REPORT Two views left foot Discussion: There is hallux valgus with degenerative changes. No visible acute fracture, dislocation, destructive lesion. Soft tissues are unremarkable. Signed: Darren Arizatay Verified Date/Time: 05/09/2018 13:59:01 Reading Location: [facility] C013W Consult Reading Room PUL PERF IMAGING, PARTIC, [id number] 12:03:00FINAL REPORT PROCEDURE: V/Q LUNG SCAN CPT CODE: 77110 INDICATION: Acute chest pain, PE suspected, dyspnea, [...] of acute pulmonary embolization. Signed: Edmond Pimentel MDReport Verified Date/Time: 05/09/2018 12: 03:05 ReadingLocation: [facility] [address] [facility] Reading Room FL, ESOPH, SWALLOW FUNCTION, WITH CINE OR [id number] 11:00:00Reason for exam:-& gt;chest painFINAL REPORT Esophagram History: chest pain Technique: Esophagram was performed using thin liquid barium. Total fluoroscopy time: 0.45 minutes Total number of films: 19 Findings:There is no significant esophageal dysmotility. There is no esophageal diverticulum or hiatus hernia. Mild gastroesophageal reflux was observed. Assessment of the gastric fundal region appear unremarkable. Impression: 1. Mild gastroesophageal reflux. Signed : Michael Genao MDReport Verified Date/Time: 05/09/2018 11:00:37 Reading Location : [facility] B1 C013X [facility] Consult Reading Room HEMOGLOBIN [id number] 10:45:00 Test Item Value Reference Range Comments HEMOGLOBIN A1C (BEAKER) (test duua=562) 6.3 % 4.3-6.1 BASIC METABOLIC [id number] 08:43:00 Test Item Value Reference Range Comments SODIUM (BEAKER) (test 138 meq/L 136-145 wwur=224) POTASSIUM (BEAKER) (test 3.8 meq/L 3.5-5.1 Specimen slightly bqrf=805) hemolyzed CHLORIDE (BEAKER) (test 104 meq/L 98-107 jvbo=229) CO2 (BEAKER) (test 24 meq/L 22-29 rxwi=294) BLOOD UREA NITROGEN 35 mg/dL 7-21 (BEAKER) (test iuef=779) CREATININE (BEAKER) (test 1.39 mg/dL 0.57-1.25 Specimen slightly xprf=075) hemolyzed GLUCOSE RANDOM (BEAKER) 124 mg/dL 70-105 (test ixkw=024) CALCIUM (BEAKER) (test 9.2 mg/dL 8.4-10.2 aqio=183) EGFR (BEAKER) (test 52 mL/min/1.73 sq m ESTIMATED GFR IS NOT chhg=9810) ACCURATE CREATININE CLEARANCE IN PREDICTING GLOMERULAR FILTRATION RATE. ESTIMATED GFR IS NOT APPLICABLE FOR DIALYSIS PATIENTS. Re-draw per labLIPID [id number] 08:42:00 Test Item Value Reference Range Comments TRIGLYCERIDES (BEAKER) (test 161 mg/dL Specimen slightly hemolyzed apam=884) CHOLESTEROL (BEAKER) (test 111 mg/dL Specimen slightly hemolyzed qkfe=204) HDL CHOLESTEROL (BEAKER) (test 39 mg/dL qnnk=288) LDL CHOLESTEROL CALCULATED 40 mg/dL (BEAKER) (test mnfb=349) Triglyceride Reference Range: Low Risk <150 Borderline 150- 199 High Risk 200-499 Very High Risk >=500Cholesterol Reference Range: Low Risk <200 Borderline 200-239 High Risk > 240HDL Cholesterol Reference Range: Low Risk >=60 High Risk <40LDL Cholesterol Reference Range: Optimal <100 Near Optimal 100-129 Borderline 130-159 High 160-189 Very High >=190LITHIUM [id number] 08:31:00 Test Item Value Reference Range Comments LITHIUM LEVEL (BEAKER) (test ezbc=409) 0.4 mmol/L 0.8-1.2 RAPID DRUG SCREEN, [id number] 07:54:00 Test Item Value Reference Range Comments BARBITURATE URINE (BEAKER) (test vgjl=348) Negative Negative BENZODIAZEPINE SCREEN URINE (BEAKER) (test Positive Negative dpzm=929) COCAINE (METAB.) SCREEN (BEAKER) (test pupr=6478) Negative Negative METHADONE SCREEN (BEAKER) (test knyr=2262) Negative Negative OPIATE SCREEN URINE (BEAKER) (test utzg=686) Positive Negative CANNABINOID SCREEN URINE (BEAKER) (test vmtw=794) Negative Negative AMPH/METHAMPH SCREEN (BEAKER) (test cvuq=5954) Negative Negative PHENCYCLIDINE SCREEN URINE (BEAKER) (test wbuz=062) Negative Negative OXYCODONE SCREEN URINE (BEAKER) (test jhpd=1216) Negative Negative DRUG CUTOFF CONC.Cocaine 300 ng/mL Cannabinoid 50 ng/mL Benzodiazepine 200 ng/mLBarbiturate 200 ng/ mLPhencyclidine 25 ng/mLOpiate 300 ng/mLMethadone 300 ng/mLAmphetamine/ 1000 ng/mL MethamphetamineOxycodone 300 ng/mLThis assay provides an unconfirmed qualitative test result for the clinical management of patients in emergency situations. Chain of custody not maintained. Some vgus-xtl-[id number] medications, as well as adulterants, may cause inaccurate results. Clinical correlation should be applied. A more comprehensive drug screen or confirmation of a detected drug may be performed upon request.CREATINE KINASE (CK), TOTAL AND [id number] 07:47:00 Test Item Value Reference Range Comments CREATINE KINASE TOTAL (BEAKER) (test efcp=611) 161 U/L 29-200 CREATINE KINASE-MB (BEAKER) (test yhcb=772) 4.9 ng/mL 0.0-6.6 CREATINE KINASE-MB INDEX (BEAKER) (test ltcr=579) 3.0 % CK-MB Reference Range:<6.7 Normal6.7-10.0 Borderline>10.0 AbnormalTROPONIN [id number] 07:47:00 Test Item Value Reference Range Comments TROPONIN I (BEAKER) (test nubi=654) 0.04 ng/mL 0.00-0.03 Troponin I (TnI) levels must be interpreted [...] failure, acidosis, acute neurological disease, and persistent tachyarrhythmia.BASIC METABOLIC [id number] 04:56:00 Test Item Value Reference Range Comments SODIUM (BEAKER) (test 139 meq/L 136-145 ltsl=435) POTASSIUM (BEAKER) (test 3.4 meq/L 3.5-5.1 ddxa=180) CHLORIDE (BEAKER) (test 105 meq/L 98-107 nwwq=894) CO2 (BEAKER) (test 25 meq/L 22-29 twlr=391) BLOOD UREA NITROGEN 38 mg/dL 7-21 (BEAKER) (test ycvn=222) CREATININE (BEAKER) (test 1.35 mg/dL 0.57-1.25 uozx=522) GLUCOSE RANDOM (BEAKER) 140 mg/dL 70-105 (test hckt=105) CALCIUM (BEAKER) (test 8.9 mg/dL 8.4-10.2 bron=422) EGFR (BEAKER) (test 54 mL/min/1.73 sq m ESTIMATED GFR IS NOT osem=9209) ACCURATE CREATININE CLEARANCE IN PREDICTING GLOMERULAR FILTRATION RATE. ESTIMATED GFR IS NOT APPLICABLE FOR DIALYSIS PATIENTS. CBC (HEMOGRAM ONLY)2018-05-09 04:38:00 Test Item Value Reference Range Comments WHITE BLOOD CELL COUNT (BEAKER) (test stkc=019) 15.8 K/ L 3.5-10.5 RED BLOOD CELL COUNT (BEAKER) (test rrah=634) 4.80 M/ L 4.63-6.08 HEMOGLOBIN (BEAKER) (test hoxw=025) 14.5 GM/DL 13.7-17.5 HEMATOCRIT (BEAKER) (test vvft=825) 44.0 % 40.1-51.0 MEAN CORPUSCULAR VOLUME (BEAKER) (test gwba=341) 91.7 fL 79.0-92.2 MEAN CORPUSCULAR HEMOGLOBIN (BEAKER) (test 30.2 pg 25.7-32.2 gccc=261) MEAN CORPUSCULAR HEMOGLOBIN CONC (BEAKER) (test 33.0 GM/DL 32.3-36.5 bsrh=080) RED CELL DISTRIBUTION WIDTH (BEAKER) (test 14.2 % 11.6-14.4 wuwt=347) PLATELET COUNT (BEAKER) (test tqjf=616) 238 K/CU MM 150-450 MEAN PLATELET VOLUME (BEAKER) (test kaqo=713) 11.5 fL 9.4-12.4 NUCLEATED RED BLOOD CELLS (BEAKER) (test 0 /100 WBC 0-0 zasz=989) CT, BRAIN, WITHOUT [id number] 21:00:00FINAL REPORT CT, BRAIN, WITHOUT CONTRAST INDICATION: Cerebral [...] chronic microvascular disease. No infarct or parenchymal hemorrhage.Midlinestructures: Normally positioned.Cerebellum and brainstem: Commensurate volume loss.Ventricles: Normal volume.Extra-axial spaces: Unremarkable. Calvarium and skull base: Intact.Paranasal sinuses and mastoid air cells: Complete opacification of the right maxillary chamber with maxillary wall thickening.Similar findings noted in the right frontal sinus.Orbital contents: Included portions unremarkable. Additional findings: Soft tissue hematoma overlying the right frontal scalp. IMPRESSION: Chronic involutional changes without acute traumatic intracranial abnormality. Superficial soft tissue hematomawithout underlying skull fracture on the right. Sphenoid and maxillary sinusitis on the right with secondary CT evidence of chronicity. Signed: JR Alva Robert MDReport Verified Date/ Time: 05/08/2018 21:00:20 Reading Location: [address] Reading Room B- TYPE NATRIURETIC FACTOR (BNP)2018-05-08 19:03:00 Test Item Value Reference Range Comments B-TYPE NATRIURETIC PEPTIDE (BEAKER) (test 254 pg/mL 0-100 dgie=992) CREATINE KINASE (CK), TOTAL AND [id number] 19:02:00 Test Item Value Reference Range Comments CREATINE KINASE TOTAL (BEAKER) (test zftl=782) 150 U/L 29-200 CREATINE KINASE-MB (BEAKER) (test hlsd=107) 5.5 ng/mL 0.0-6.6 CREATINE KINASE-MB INDEX (BEAKER) (test bnnv=256) 3.7 % CK-MB Reference Range:<6.7 Normal6.7-10.0 Borderline>10.0 AbnormalTROPONIN [id number] 19:02:00 Test Item Value Reference Range Comments TROPONIN I (BEAKER) (test hhjk=041) 0.06 ng/mL 0.00-0.03 Troponin I (TnI) levels must be interpreted [...] failure, acidosis, acute neurological disease, and persistent tachyarrhythmia.BASIC METABOLIC [id number] 18:32:00 Test Item Value Reference Range Comments SODIUM (BEAKER) (test 137 meq/L 136-145 zeyj=011) POTASSIUM (BEAKER) (test 3.9 meq/L 3.5-5.1 iykj=561) CHLORIDE (BEAKER) (test 102 meq/L 98-107 slcv=989) CO2 (BEAKER) (test 24 meq/L 22-29 fbge=106) BLOOD UREA NITROGEN 35 mg/dL 7-21 (BEAKER) (test csxo=730) CREATININE (BEAKER) (test 1.56 mg/dL 0.57-1.25 tsgg=066) GLUCOSE RANDOM (BEAKER) 119 mg/dL 70-105 (test mfpp=936) CALCIUM (BEAKER) (test 9.3 mg/dL 8.4-10.2 jupn=680) EGFR (BEAKER) (test 46 mL/min/1.73 sq m ESTIMATED GFR IS NOT hapi=5810) ACCURATE CREATININE CLEARANCE IN PREDICTING GLOMERULAR FILTRATION RATE. ESTIMATED GFR IS NOT APPLICABLE FOR DIALYSIS PATIENTS. CBC W/PLT COUNT & AUTO [id number] 18:28:00 Test Item Value Reference Range Comments WHITE BLOOD CELL COUNT (BEAKER) (test rxfg=737) 17.1 K/ L 3.5-10.5 RED BLOOD CELL COUNT (BEAKER) (test agwo=334) 5.16 M/ L 4.63-6.08 HEMOGLOBIN (BEAKER) (test ppfq=613) 15.5 GM/DL 13.7-17.5 HEMATOCRIT (BEAKER) (test fpde=912) 47.6 % 40.1-51.0 MEAN CORPUSCULAR VOLUME (BEAKER) (test qgsq=534) 92.2 fL 79.0-92.2 MEAN CORPUSCULAR HEMOGLOBIN (BEAKER) (test 30.0 pg 25.7-32.2 eljm=610) MEAN CORPUSCULAR HEMOGLOBIN CONC (BEAKER) (test 32.6 GM/DL 32.3-36.5 snzh=518) RED CELL DISTRIBUTION WIDTH (BEAKER) (test 14.0 % 11.6-14.4 thrz=827) PLATELET COUNT (BEAKER) (test jrid=281) 297 K/CU MM 150-450 MEAN PLATELET VOLUME (BEAKER) (test mkix=077) 11.3 fL 9.4-12.4 NUCLEATED RED BLOOD CELLS (BEAKER) (test 0 /100 WBC 0-0 mbqo=936) NEUTROPHILS RELATIVE PERCENT (BEAKER) (test 78 % nhov=343) LYMPHOCYTES RELATIVE PERCENT (BEAKER) (test 14 % khbh=847) MONOCYTES RELATIVE PERCENT (BEAKER) (test 7 % rsid=433) EOSINOPHILS RELATIVE PERCENT (BEAKER) (test 0 % yzck=855) BASOPHILS RELATIVE PERCENT (BEAKER) (test 0 % hofg=732) NEUTROPHILS ABSOLUTE COUNT (BEAKER) (test 13.35 K/ L 1.78-5.38 vvet=884) LYMPHOCYTES ABSOLUTE COUNT (BEAKER) (test 2.35 K/ L 1.32-3.57 zwlm=289) MONOCYTES ABSOLUTE COUNT (BEAKER) (test 1.23 K/ L 0.30-0.82 wvde=227) EOSINOPHILS ABSOLUTE COUNT (BEAKER) (test 0.00 K/ L 0.04-0.54 somg=964) BASOPHILS ABSOLUTE COUNT (BEAKER) (test 0.05 K/ L 0.01-0.08 dpmt=322) IMMATURE GRANULOCYTES-RELATIVE PERCENT (BEAKER) 1 % 0-1 (test ngmj=6718) [id number] 18:15:00 Test Item Value Reference Range Comments PARTIAL THROMBOPLASTIN TIME (BEAKER) (test 30.0 seconds 22.5-36.0 arib=030) Prior to initiating heparin
--- OUTSIDE RECORDS SUMMARY | 2018-05-31 09:45 | XMS REPORT ---
[...] Status Dosage System Date Date Clonidine HCl [facility] 95888901875 0.3 MG Orally Nov 30 Inactive 1 tablet Twice a day 2017 Dulera [facility] 36976629039 100-5 MCG/ACT Active 2 puffs Inhalation Twice a day Valproic Acid ND 27771900994 250 MG Orally Inactive not three times a defined day Lisinopril ND 33223728328 10 MG Orally December Inactive 1 tablet Once a day 2017 Coreg [facility] 53025115777 12.5 MG Orally Active not twice a day defined [place] [facility] 35570367073 10-325 MG Active 1 tablet Orally every 6 as needed hrs Lisinopril [facility] 46732186051 40 MG Orally February 28, Active 1 tablet Once a day 2017 amitriptyline [facility] 46318734154 25 mg po February Inactive one tab bedtime 2017 Lisinopril [facility] 74553263561 5 MG Orally Inactive 1 tablet Once a day Clonidine HCl [facility] 83491178646 0.3 MG Orally Inactive 1 tablet Twice a day Amiodarone HCl [facility] 67153696743 200 MG Orally Active 1 tablet Once a day Lipitor [facility] 63510883855 40 MG Orally February 28, Active 1 tablet Once a day 2017 Coreg [facility] 13000374634 12.5 MG Orally December Active as bid 2017 directed Amitriptyline [facility] 08433672185 50 MG Orally February 28, Active 1 tablet HCl Once a day 2017 atarax [facility] 86133666343 Inactive not defined Cheratussin AC [facility] 01043361881 100-10 MG/5ML Inactive 10 ml Orally every 8 hrs Clonidine HCl [facility] 45578605649 0.2 MG Orally February 28, Active 1 tablet twice a day 2017 Results No Known Results Summary Purpose eClinicalWorks Submission
--- OUTSIDE RECORDS SUMMARY | 2018-05-31 09:46 | XMS REPORT ---
:1960 Author Organization eClinicalWorks Care Team Providers Name Role Phone Heard, Na Provider Role Unavailable Allergies, Adverse Reactions, Alerts Substance Reaction Event Type penicillin rash Drug Allergy Problems Problem Type Condition Code Onset Dates Condition Status Assessment Cigarette nicotine dependence F17.210 Active without complication Problem Abdominal pain R10.9 Active Assessment Elevated blood pressure reading R03.0 Active Problem Pulmonary emphysema, unspecified J43.9 Active emphysema type Assessment Dementia without behavioral F03.90 Active disturbance, unspecified dementia type Problem Chronic depressive person F34.1 Active Problem Acute myocardial infarction, I21.4 Active subendocardial infarction Problem Follow-up exam Z09 Active Problem Cigarette nicotine dependence F17.210 Active without complication Problem Dementia without behavioral F03.90 Active disturbance, unspecified dementia type Assessment HTN (hypertension) I10 Active Assessment Arteriosclerotic cardiovascular I25.10 Active disease (ASCVD) Problem Constipation, unspecified K59.00 Active constipation type Assessment Hyperlipidemia E78.5 Active Problem Atrial fibrillation, unspecified I48.91 Active type Problem Closed displaced fracture of first S92.312S Active metatarsal bone of left foot, sequela Problem Elevated blood pressure reading R03.0 Active Problem Left foot pain M79.672 Active Problem Essential hypertension I10 Active Problem Primary insomnia F51.01 Active Problem Hyperlipidemia E78.5 Active Problem Pure hypercholesterolemia E78.00 Active Problem HTN (hypertension) I10 Active Problem Chronic generalized pain R52 Active Problem Arteriosclerotic cardiovascular I25.10 Active disease (ASCVD) Medications Medication Code Code Instructions Start End Status Dosage System Date Date Coreg [facility] 30213951869 12.5 MG Orally Active not twice a day defined [place] [facility] [address]-45 Active not Carbonate ER defined Coreg [facility] 24914503209 12.5 MG Orally December Active as bid 2017 Clonidine HCl [facility] 09630230968 0.3 MG Orally March 15, Active 1 tablet Twice a day 2017 Memantine HCl [facility] 83406780177 10 MG Orally March 15, Active 1 tablet Twice a day 2017 Lipitor [facility] 79413127165 40 MG Orally February 28, Active 1 tablet Once a day 2017 Dulera [facility] 64494653039 100-5 MCG/ACT Active 2 puffs Inhalation Twice a day Lisinopril [facility] 40822625979 40 MG Orally February 28, Active 1 tablet Once a day 2017 Clonidine HCl [facility] 50773411647 0.2 MG Orally February 28, Inactive 1 tablet twice a day 2017 Amitriptyline [facility] 06366728744 50 MG Orally February 28, Active 1 tablet HCl Once a day 2017 Amiodarone HCl [facility] 39075127684 200 MG Orally Active 1 tablet Once a day [place] [facility] 56485433010 10-325 MG Active 1 tablet Orally every 6 as needed hrs Results No Known Results Summary Purpose eClinicalWorks Submission
--- OUTSIDE RECORDS SUMMARY | 2018-05-31 09:46 | XMS REPORT ---
:1960 Author Organization eClinicalWorks Care Team Providers Name Role Phone Heard, Na Provider Role Unavailable Allergies, Adverse Reactions, Alerts Substance Reaction Event Type penicillin rash Drug Allergy Problems Problem Type Condition Code Onset Dates Condition Status Assessment Former smoker Z87.891 Active Assessment Constipation, unspecified K59.00 Active constipation type Assessment Left foot pain M79.672 Active Assessment Closed displaced fracture of first S92.312S Active metatarsal bone of left foot, sequela Problem Abdominal pain R10.9 Active Assessment Atrial fibrillation, unspecified I48.91 Active type Problem Pulmonary emphysema, unspecified J43.9 Active emphysema type Assessment Dementia without behavioral F03.90 Active disturbance, unspecified dementia type Problem Chronic depressive person F34.1 Active Problem Acute myocardial infarction, I21.4 Active subendocardial infarction Problem Follow-up exam Z09 Active Problem Cigarette nicotine dependence F17.210 Active without complication Problem Dementia without behavioral F03.90 Active disturbance, unspecified dementia type Assessment HTN (hypertension) I10 Active Assessment Hyperlipidemia E78.5 Active Problem Constipation, unspecified K59.00 Active constipation type Assessment Elevated blood pressure reading R03.0 Active Problem Atrial fibrillation, unspecified I48.91 Active [...] Start End Status Dosage System Date Date Dulera [facility] 66365965110 100-5 MCG/ACT Active 2 puffs Inhalation Twice a day Amitriptyline [facility] 72178454131 50 MG Orally February 28, Active 1 tablet HCl Once a day 2017 Amiodarone HCl [facility] 54917040127 200 MG Orally Active 1 tablet Once a day Memantine HCl [facility] 64348522345 10 MG Orally Active 1 tablet Twice a day Clonidine HCl [facility] 30014330971 0.1 MG Orally April 20, Active 2 tablet twice 2017 twice x 1 week then 1 tablet twice a day for 1 week. Coreg [facility] 58300863374 12.5 MG Orally Active 2 tabs bid [place] [facility] 77382330832 10-325 MG Active 1 tablet Orally every 6 as needed hrs Linzess [facility] 12709562049 145 MCG Orally April 20Jun Active 1 capsule Once a day 2017 Lipitor [facility] 88503131074 40 MG Orally Active 1 tablet Once a day Clonidine HCl [facility] 49189786001 0.3 MG Orally Inactive 1 tablet Twice a day Lisinopril [facility] 38302999320 40 MG Orally Active 1 tablet Once a day Results No Known Results Summary Purpose eClinicalWorks Submission
[2018-05-31 10:06] LABS: Absolute Lymphocytes (CBC) 2.3 K/uL (0.7-4.9); Absolute Monocytes 0.8 K/uL (0.1-1.3); Absolute Neutrophil 3.8 K/uL (1.8-8.0); Basophils % 0.9 % (0-1.3); Eosinophils % 11.3 % (0-4.4); Hematocrit 38.5 % (39.6-49.0); Lymphocytes % 29.5 % (15.3-44.8); MCH 31.6 pg (27.0-35.0); MCV 93.4 fL (80-100); MPV 9.1 fL (7.6-11.3); Monocytes % 9.7 % (3.3-12.3); RBC Red Blood Cell Count 4.12 M/uL (4.33-5.43)
[2018-05-31 10:31] LABS: Albumin 3.3 g/dL (3.4-5.0); Bilirubin Direct 0.2 mg/dL (0-0.2); Bilirubin Total 0.3 mg/dL (0.2-1.0); CKMB Creatine Kinase MB 2.6 ng/mL (0.3-3.6); Potassium 3.4 mmol/L (3.5-5.1); Protein, Total 7.4 g/dL (6.4-8.2)
--- NOTE | 2018-05-31 10:40 | RAD REPORT ---
EXAM DESCRIPTION: RAD - Chest Single View - 05/31/2018 10:31 am CLINICAL HISTORY: CHEST PAIN Chest pain. COMPARISON: Chest Single View dated 05/08/2018; Chest Pa And Lat (2 Views) dated 11/22/2017; Chest Sin gle View dated 11/21/2017; Chest Single View dated 10/29/2016 FINDINGS: Portable technique limits examination quality. Bibasilar linear opacities are present, greater on the left, likely representing atelectasis or devel oping pneumonia. The heart is normal in size. No displaced fractures.Sternotomy wires present. Cervic al hardware plate.
--- NOTE | 2018-05-31 12:11 | EKG ---
Test Date: 2018-05-31 Test Time: 09:46:38 Establishment Guide: ANNA MEASUREMENT RESULTS: Intervals: Rate: 71 MD: 206 QRSD: 118 QT: 380 QTc: 412 [place]: P: 58 MD: 206 QRS: 53 T: 147 INTERPRETIVE STATEMENTS: Normal sinus rhythm Septal infarct, age undetermined T wave abnormality, consider inferolateral ischemia Intraventricular conduction delay Abnormal ECG Compared to ECG 05/08/2018 14:21:18 no significant change from previous ECG Electronically Signed On 05-31-18 12:10:28 CDT by Bijan Woods
[2018-05-31] MEDS ORDERED: KETOROLAC 30 MG/ML INJ ONE (12:27)
[2018-05-31] MEDS ORDERED: AZITHROMYCIN 250 MG TAB ONE (12:27)
[2018-05-31] MEDS ORDERED: HYDROCODONE/APAP 10/325 TAB ONE (12:27)
--- NOTE | 2018-05-31 13:51 | EDPHYS ---
Physician Documentation [facility] Name: Blayne Macias Age: 57 yrs Sex: Male : 1960 Arrival Date: 05/31/2018 Time: 09:44 Bed 5 Private MD: Allison Heard ED Physician Pegn Mitchell HPI: 05/31 09:51 This 57 yrs old Male presents to ER via EMS with complaints of Chest Pain > rn 28 y/o. 09:51 The patient or guardian reports chest pain that is located primarily in the substernal rn area. Onset: 3 month(s) ago. The pain radiates to the left arm. The chest pain is described as a heaviness. Duration: The patient or guardian reports multiple episodes, that are intermittent, the episodes last approximately 1 hour(s). Severity of pain: At its worst the pain was moderate in the emergency department the pain is unchanged. The patient has experienced similar episodes in the past. Reports chest pain daily for last 3 months, transferred from here last week to [facility], had CT chest/abd/pelvis that was negative, had heart cath that was negative, told his pain was due to acid reflux, not assoc with food/eating, intermittent, happens at rest. . Historical: - Allergies: 09:47 Codeine; sg 09:47 PENICILLINS; sg - PMHx: 09:47 Atrial Fib; Back pain; Bipolar disorder; CAD; CHF; chronic back pain; COPD; High sg Cholesterol; Hypertension; Pneumonia; - PSHx: 09:47 pain stimulator to back, neck surgery; CABG; sg - Immunization history:: Adult Immunizations up to date. - Social history:: Smoking status: Patient/guardian denies using tobacco. - Ebola Screening: : Patient negative for fever greater than or equal to 101.5 degrees Fahrenheit, and additional compatible Ebola Virus Disease symptoms Patient denies exposure to infectious person Patient denies travel to an Ebola-affected area in the 21 days before illness onset No symptoms or risks identified at this time. - Family history:: not pertinent. - Hospitalizations: : No recent hospitalization is reported. ROS: 09:51 Constitutional: Negative for fever, chills, and weight loss, Eyes: Negative for injury, rn pain, redness, and discharge, Neck: Negative for injury, pain, and swelling, Cardiovascular: Negative for palpitations, and edema, Respiratory: Negative for shortness of breath, cough, wheezing, and pleuritic chest pain, Abdomen/GI: Negative for abdominal pain, nausea, vomiting, diarrhea, and constipation, MS/Extremity: Negative for injury and deformity, Skin: Negative for injury, rash, and discoloration, Neuro: Negative for headache, weakness, numbness, tingling, and seizure. Exam: 09:51 Constitutional: This is a well developed, well nourished patient who is awake, alert, rn and in no acute distress. Head/Face: Normocephalic, atraumatic. Eyes: Pupils equal round and reactive to light, extra-ocular motions intact. Lids and lashes normal. Conjunctiva and sclera are non-icteric and not injected. Cornea within normal limits. Periorbital areas with no swelling, redness, or edema. Neck: Trachea midline, no thyromegaly or masses palpated, and no cervical lymphadenopathy. Supple, full range of motion without nuchal rigidity, or vertebral point tenderness. No Meningismus. Cardiovascular: Regular rate and rhythm with a normal S1 and S2. No gallops, murmurs, or rubs. Normal PMI, no JVD. No pulse deficits. Respiratory: Lungs have equal breath sounds bilaterally, clear to auscultation and percussion. No rales, rhonchi or wheezes noted. No increased work of breathing, no retractions or nasal flaring. Abdomen/GI: Soft, non-tender, with normal bowel sounds. No distension or tympany. No guarding or rebound. No evidence of tenderness throughout. MS/ Extremity: Pulses equal, no cyanosis. Neurovascular intact. Full, normal range of motion. Equal circumference. Neuro: Awake and alert, GCS 15, oriented to person, place, time, and situation. Cranial nerves II-XII grossly intact. Motor strength 5/5 in all extremities. Sensory grossly intact. Vital Signs: 09:48 Pulse 72 MON; Resp 16 S; Pulse Ox 99% on R/A; Pain 7/10; sg 09:49 BP 177 / 99; sg 09:49 Weight 72.57 kg (R); Height 5 ft. 9 in. (175.26 cm) (R); sg 09:52 Temp 98.9(O); sg 11:00 BP 150 / 92; Pulse 64 MON; Resp 12 S; Pulse Ox 97% on R/A; sg 12:00 BP 167 / 97; Pulse 61; Resp 16; Pulse Ox 97% ; jl7 09:49 Body Mass Index 23.63 (72.57 kg, 175.26 cm) sg 09:48 Sinus Rhythm sg MDM: 09:47 Patient medically screened. rn 13:48 Differential diagnosis: abnormal EKG, acute pericarditis, anxiety, coronary artery rn disease chest wall pain, esophagitis, gastritis, gastroesophageal reflux disease (GERD), pericarditis, pleurisy, pneumothorax. Data reviewed: vital signs, nurses notes, lab test result(s), EKG, radiologic studies, plain films, and as a result, I will discharge patient. Counseling: I had a detailed discussion with the patient and/or guardian regarding: the historical points, exam findings, and any diagnostic results supporting the discharge/admit diagnosis, lab results, radiology results, the need for outpatient follow up, to return to the emergency department if symptoms worsen or persist or if there are any questions or concerns that arise at home. Response to treatment: the patient's symptoms have markedly improved after treatment, and as a result, I will discharge patient. Special discussion: Based on the patient's history, exam, and Dx evaluation, there is no indication for emergent intervention or inpatient Tx. It is understood by the patient/guardian that if the Sx's persist or worsen they need to return immediately for re-evaluation. I discussed with the patient/guardian in detail that at this point there is no indication for admission to the hospital. It is understood, however, that if the symptoms persist or worsen the patient needs to return immediately for re-evaluation. ED course: Trop neg x 2, no ischemia on ecg, cxr shows atelectasis vs pneumonia, pain did not respond to nitro/aspiring by EMS, resolved with toradol here, has had complete cardiac w/u this past week and was cleared cardiac, will dc home with abx and pcp/cardiology f/u. . 13:59 ED course: Pt ambulatory without chest pain/dyspnea, states has to leave, has appt at rn 2:30 and would like to go home.. 05/31 09:51 Order name: Basic Metabolic Panel; Complete Time: 10:38 rn 05/31 09:51 Order name: CBC with Diff; Complete Time: 10:38 rn 05/31 09:51 Order name: Ckmb; Complete Time: 10:38 rn 05/31 09:51 Order name: CPK; Complete Time: 10:38 rn 05/31 09:51 Order name: LFT's; Complete Time: 10:38 rn 05/31 09:51 Order name: NT PRO-BNP; Complete Time: 10:38 rn 05/31 09:51 Order name: Troponin (emerg Dept Use Only); Complete Time: 10:38 rn 05/31 09:51 Order name: XRAY Chest (1 view); Complete Time: 10:45 rn 05/31 09:51 Order name: Lipase; Complete Time: 10:38 rn 05/31 12:26 Order name: Troponin (emerg Dept Use Only) rn 05/31 13:08 Order name: Troponin (Emerg Dept Use Only); Complete Time: 13:43 EDMS 05/31 09:51 Order name: EKG; Complete Time: 09:51 rn 05/31 09:51 Order name: Cardiac monitoring; Complete Time: 09:53 rn 05/31 09:51 Order name: EKG - Nurse/Tech; Complete Time: 09:53 rn 05/31 09:51 Order name: IV Saline Lock; Complete Time: 09:53 rn 05/31 09:51 Order name: Labs collected and sent; Complete Time: 09:53 rn 05/31 09:51 Order name: O2 Per Protocol; Complete Time: 09:53 rn 05/31 09:51 Order name: O2 Sat Monitoring; Complete Time: 09:53 rn 05/31 12:48 Order name: Diet Heart Healthy; Complete Time: 12:48 ag Administered Medications: 12:25 Drug: [place] 10 mg-325 mg 1 tabs Route: PO; sg 12:25 Drug: TORadol 30 mg Route: IVP; Site: right antecubital; sg 12:25 Drug: Zithromax 500 mg Route: PO; sg Disposition: 05/31/18 13:50 Discharged to Home. Impression: Chest pain, unspecified, Pneumonia. - Condition is Stable. - Discharge Instructions: Nonspecific Chest Pain, Community-Acquired Pneumonia, Adult. - Prescriptions for Tylenol- Codeine #3 300-30 mg Oral Tablet - take 1 tablet by ORAL route every 6 hours As needed; 15 tablet. Zithromax Z- [place] 250 mg Oral Tablet - take 1 tablet by ORAL route as directed for 5 days Day 1 - take two (2) tablets one time. Day 2, 3, 4 , 5 take one (1) tablet once daily.; 6 tablet. - Medication Reconciliation Form, Thank You Letter, Antibiotic Education, Prescription Opioid Use form. - Follow up: Private Physician; When: As needed; Reason: Recheck today's complaints, Re-evaluation by your physician. - Problem is new. - Symptoms have improved. Signatures: Dispatcher [employer] EDKuldeep Disla RN RN Peng Mitchell MD MD rn Riya Bryan RN RN ss Corrections: (The following items were deleted from the chart) 14:00 13:50 05/31/2018 13:50 Discharged to Home. Impression: Chest pain, unspecified; ss Pneumonia. Condition is Stable. Forms are Medication Reconciliation Form, Thank You Letter, Antibiotic Education, Prescription Opioid Use. Follow up: Private Physician; When: As needed; Reason: Recheck today's complaints, Re-evaluation by your physician. Problem is new. Symptoms have improved. rn
--- NOTE | 2018-05-31 13:51 | ER ---
Nurse's Notes [facility] Name: Blayne Macias Age: 57 yrs Sex: Male : 1960 Arrival Date: 05/31/2018 Time: 09:44 Bed 5 Private MD: Allison Heard Diagnosis: Chest pain, unspecified;Pneumonia Presentation: 05/31 09:44 Presenting complaint: EMS states: pt c/o chest pain, anterior chest wall non radiating, sg described as sharp/stabbing, pt reports having this pain x3 weeks ago. Was treated here and life flight to [facility], cardiac cath performed but nothing was found, diagnosed with acid reflux. 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 Transition of care: patient was not received from another setting of care. Onset of symptoms was May 31, 2018. Risk Assessment: Do you want to hurt yourself or someone else? Patient reports no desire to harm self or others. Initial Sepsis Screen: Does the patient meet any 2 criteria? No. Patient's initial sepsis screen is negative. Does the patient have a suspected source of infection? No. Patient's initial sepsis screen is negative. Care prior to arrival: Medication(s) given: ASA, 81 mg, x 4, Nitroglycerin, 0.4 mg SL x 1, IV initiated. 18 GA, in the right antecubital area. 09:44 Method Of Arrival: EMS: [facility] sg 09:44 Acuity: SENTHIL 3 sg Historical: - Allergies: 09:47 Codeine; sg 09:47 PENICILLINS; sg - PMHx: 09:47 Atrial Fib; Back pain; Bipolar disorder; CAD; CHF; chronic back pain; COPD; High sg Cholesterol; Hypertension; Pneumonia; - PSHx: 09:47 pain stimulator to back, neck surgery; CABG; sg - Immunization history:: Adult Immunizations up to date. - Social history:: Smoking status: Patient/guardian denies using tobacco. - Ebola Screening: : Patient negative for fever greater than or equal to 101.5 degrees Fahrenheit, and additional compatible Ebola Virus Disease symptoms Patient denies exposure to infectious person Patient denies travel to an Ebola-affected area in the 21 days before illness onset No symptoms or risks identified at this time. - Family history:: not pertinent. - Hospitalizations: : No recent hospitalization is reported. Screenin:00 Abuse screen: Denies threats or abuse. Denies injuries from another. Nutritional sg screening: No deficits noted. Tuberculosis screening: No symptoms or risk factors identified. Never had TB. Fall Risk None identified. Assessment: 10:00 General: Appears in no apparent distress. comfortable, well groomed, well developed, sg well nourished, Behavior is calm, cooperative, appropriate for age. Pain: Complains of pain in chest Pain does not radiate. Neuro: Level of Consciousness is awake, alert, obeys commands, Oriented to person, place, time, Insurance Executive are equal bilaterally Speech is normal, Facial symmetry appears normal. Cardiovascular: Heart tones S1 S2 present Capillary refill is brisk in bilateral fingers Patient's skin is warm and dry. Chest pain is described as mild, is located in anterior chest wall. Respiratory: Airway is patent Respiratory effort is even, unlabored, Respiratory pattern is regular, symmetrical, Breath sounds are clear. GI: Abdomen is flat, non-distended. : No deficits noted. No signs and/or symptoms were reported regarding the genitourinary system. EENT: No signs and/or symptoms were reported regarding the EENT system. Derm: Skin is pink, warm \T\ dry. Musculoskeletal: Circulation, motion, and sensation intact. Capillary refill is brisk, in bilateral fingers. Swelling absent. Vital Signs: 09:48 Pulse 72 MON; Resp 16 S; Pulse Ox 99% on R/A; Pain 7/10; sg 09:49 BP 177 / 99; sg 09:49 Weight 72.57 kg (R); Height 5 ft. 9 in. (175.26 cm) (R); sg 09:52 Temp 98.9(O); sg 11:00 BP 150 / 92; Pulse 64 MON; Resp 12 S; Pulse Ox 97% on R/A; sg 12:00 BP 167 / 97; Pulse 61; Resp 16; Pulse Ox 97% ; jl7 09:49 Body Mass Index 23.63 (72.57 kg, 175.26 cm) sg 09:48 Sinus Rhythm sg Vitals: 11:00 Cardiac Rhythm Assessment Sinus rhythm. sg ED Course: 09:44 Patient arrived in ED. sg 09:44 Allison Heard MD is Private Physician. sg 09:46 Triage completed. sg 09:46 Arm band placed on. sg 09:47 Peng Mitchell MD is Attending Physician. rn 09:52 Kuldeep Hilario, RN is Primary Nurse. sg 09:55 EKG done, by tv technician. reviewed by Peng Mitchell MD. at1 10:00 Patient has correct armband on for positive identification. Bed in low position. Call sg light in reach. Side rails up X2. cafeteria monitor on. Pulse ox on. NIBP on. Warm blanket given. Head of bed elevated. 10:28 XRAY Chest (1 view) In Process Unspecified. EDMS 12:40 Repeat lab(s) drawn. by ED staff, sent to lab. sg 12:45 Troponin (emerg Dept Use Only) Sent. ag 13:58 No provider procedures requiring assistance completed. IV discontinued, intact, ss bleeding controlled, No redness/swelling at site. Pressure dressing applied. Patient maintains SpO2 saturation greater than 95% on room air. Administered Medications: 12:25 Drug: [place] 10 mg-325 mg 1 tabs Route: PO; sg 12:25 Drug: TORadol 30 mg Route: IVP; Site: right antecubital; sg 12:25 Drug: Zithromax 500 mg Route: PO; sg Outcome: 13:50 Discharge ordered by . rn 13:58 Discharged to home ambulatory. 13:58 Condition: good 13:58 Discharge instructions given to patient, Instructed on discharge instructions, follow up and referral plans. medication usage, Demonstrated understanding of instructions, follow-up care, medications, Prescriptions given X 2. 14:00 Patient left the ED. ss Signatures: Dispatcher [employer] EDOH Kuldeep Hilario, RN RN Peng Mitchell MD MD rn Smirch, Shelby, RN RN Leny covarrubias, ribbon lap machine tender EKG Tat1 Roopa Bahena Jahala, RN RN jl7
[2018-05-31 14:08] VITALS: TEMP 98.9
[2018-05-31 14:09] VITALS: O2SAT 97
[2018-05-31 14:10] VITALS: BP 167/97
== END 2018-05-31 14:00 | disposition home or self-care (01) ==
LOC: ER 09:42
DX: J18.9 Pneumonia, unspecified organism (principal); I10 Essential (primary) hypertension; Z88.0 Allergy status to penicillin; Z88.5 Allergy status to narcotic agent; Z95.1 Presence of aortocoronary bypass graft
CPT/HCPCS: 36415; 71045; 80048; 80076; 82550; 82553; 83690; 83880; 84484; 85025; 93005; 96374; 99285

== ENCOUNTER 2018-06-09 18:34 | Observation (INO) | payer OTHER ==
--- OUTSIDE RECORDS SUMMARY | 2018-06-09 18:37 | XMS REPORT | Clinical Summary ---
:1960 Author Organization [facility] Address [address] [place] [address] Phone Care Team Providers Name Role Phone [...] Problem Noted Date Resolved Date Atherosclerosis of [place] coronary artery with unstable 01/23/2016 05/09/2018 angina [...] pain;Coronary artery Sandhya, disease involving Mrinalini Zade, [place] coronary MD artery of [place] Trina Moody, heart with angina MD pectoris ([facility]);Acute Sebastian Gonzalez, kidney injury ([facility]);Diarrhea, unspecified type;Hepatitis C virus infection without hepatic coma, unspecified chronicity;Hypertens alberto emergency;Paroxysmal atrial fibrillation ([facility]);Vasovagal syncope;Transaminiti s 05/08/2018 Procedure Pass 05/08/2018 Surgery Trina Moody L CATH & CORONARY MD ANGIOS 05/08/2018 Orders Only General Internal Medicine after 06/08/2017 Social History Tobacco Use Types Packs/Day Years [...] Surgery Gastroenterology Eb Rich MD COLONOSCOPY [address] [address] [phone] 06/13/2018 Procedure Pass Gastroenterology 06/13/2018 Hospital Encounter Gastroenterology Eb Rich MD [address] [id number] Procedures Procedure Name Priority Date/Time Associated Diagnosis Comments L CATH & CORONARY 05/08/2018 7:05 PM Coronary artery disease ANGIOS CDT involving [place] heart without angina pectoris, unspecified vessel or lesion type after 06/08/2017 Results EKG-SCANNED (05/13/2018 12:30 PM)RHYTHM STRIP - SCAN (05/13/2018 12:30 PM)POC- Glucose meter (05/12/2018 11:57 AM)Only the most recent of2 resultswithin the time period is included. Component Value Ref Range POC-Glucose Meter 169 (H)Comment: TESTED AT [address] 70 - 110 mg/[place] [address] Specimen Performing Laboratory Blood [facility] [address] [address] ECHOCARDIOGRAM REPORT - SCAN (05/12/2018 8:22 AM)CBC [...] % Specimen Performing Laboratory Blood - Arm, [address] [address] Hepatitis C antibody (05/12/2018 4:15 AM) Component Value Ref Range Hepatitis C Ab Reactive (A) Nonreactive Specimen Performing Laboratory Blood - Arm, [address] [address] Hepatitis B core antibody, IgM (05/12/2018 4:15 AM) Component Value Ref Range Hep B C IgM Nonreactive Nonreactive Specimen Performing Laboratory Blood - Arm, [address] [address] Hepatitis B core antibody, total (05/12/2018 4:15 AM) Component Value Ref Range Hep B Core Total Ab Reactive (A) Nonreactive Specimen Performing Laboratory Blood - Arm, [address] [address] Hepatitis B surface antibody (05/12/2018 4:15 AM) Component Value Ref Range Hep B S Ab <8.0 <8.0 mIU/mL Specimen Performing Laboratory Blood - Arm, [address] [address] Hepatitis B surface antigen (05/12/2018 4:15 AM) Component Value Ref Range hepatitis B Surface Ag Nonreactive Nonreactive Specimen Performing Laboratory Blood - Arm, [address] [address] CBC with platelet count + automated diff (05/12/2018 4:15 AM)Only the most recent of4 resultswithin the time period is included. Specimen Performing Laboratory Blood Narrative The following orders were created for panel order CBC with platelet count + automated diff. Procedure Abnormality Status --------- ------ CBC with platelet count ...[[id number]]AbnormalFinal result Please view results for these tests [...] U/L Specimen Performing Laboratory Blood - Arm, [address] [address] Basic metabolic panel (05/12/2018 4:15 AM)Only the [...] PATIENTS. Specimen Performing Laboratory Blood - Arm, [address] [address] 2D Echo W/Doppler(CW/PW/Color) (05/11/2018 9:07 AM) Component Value Ref Range Ejection Fraction Specimen Performing Laboratory [facility] ECHO HEARTLAB MKCKESSON CPA Narrative Transthoracic Echocardiography Report (TTE) Demographics Patient Name Carmen MACIAS of Study 05/11/2018 [place] [id number] GenderMale Visit Number [id number] Race Unknown [id number] Number [id number] Number Date of Birth1960 Referring Physician JOEY CASILLAS Age57 year(s) [employer] Linda Combs,Interpreting [facility] Physician Procedure Type of Study TTE procedure:2DECHO [...] Study 05/11/2018 [place] Gender Male Visit Number [id number] Race Unknown Room Number [id number] Number Date of 1960 Referring Physician JOEY CASILLAS Age 57 year(s) [employer] Linda Herrera 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 Melba Combs, Interpreting [facility] Physician Procedure Type of Study TTE procedure:2DECHO [...] limited (05/11/2018 8:39 AM) Specimen Performing Laboratory [facility] RIS Narrative FINAL REPORT INDICATION: 57-year-old inpatient [...] MD Report Verified Date/Time:05/11/2018 16:15:41 Reading Location: [address] Ultrasound Reading Room Procedure Note Interface, [...] Report Verified Date/Time: 05/11/2018 16:15:41 Reading Location: [address] Ultrasound Reading Room Renal with Doppler (05/11/2018 8:39 AM) Specimen Performing Laboratory [facility] FINAL REPORT INDICATION: 57-year-old inpatient male with [...] MD Report Verified Date/Time:05/11/2018 16:28:02 Reading Location: [address] Ultrasound Reading Room Procedure Note Interface, [...] Report Verified Date/Time: 05/11/2018 16:28:02 Reading Location: [facility] [id number] Ultrasound Reading Room Calcium, Ionized (05/11/2018 3:30 AM)Only the most recent of2 resultswithin the time period is included. Component Value Ref Range Calcium, Ion 1.16 1.12 - 1.27 mmol/L pH, Blood 7.40 Specimen Performing Laboratory Blood - Arm, Right [address] [address] Phosphorus (05/11/2018 3:30 AM)Only the most recent of2 resultswithin the time period is included. Component Value Ref Range Phosphorus 3.5 2.3 - 4.7 mg/dL Specimen Performing Laboratory Blood - Arm, [address] [address] Magnesium (05/11/2018 3:30 AM)Only the most recent of2 resultswithin the time period is included. Component Value Ref Range Magnesium 2.4 1.6 - 2.6 mg/dL Specimen Performing Laboratory Blood - Arm, [address] [address] Comprehensive metabolic panel (05/11/2018 3:30 AM)Only the [...] PATIENTS. Specimen Performing Laboratory Blood - Arm, [address] [address] CTA chest, abdomen & pelvis - for dissection (05/10/2018 6:41 PM) Specimen Performing Laboratory GE RIS Narrative Addendum Begins REPORT STATUS:A Addendum: I agree with the previously described non vascular findings. Signed: Antionette Hinojosa MD Report Verified Date/Time:05/11/2018 14:11:09 Reading Location: [place] [address] Angio Body Reading Room Addendum Ends FINAL [...] coronary artery calcification is seen in the [place] coronary territories. Patient is post coronary artery [...] thoracic aorta. In the abdominal aorta, circumferential hike-nb-tkryqmwq calcific atherosclerosis is seen. Overall, no ectasia [...] 4.An addendum will be dictated by the Tire Fabric Inspector Radiologist regarding the nonvascular findings. Signed: Magno Augustin MD Report Verified Date/Time:05/10/2018 18:58:16 Reading Location: [place] [address] Cardiology MRI Procedure Note Interface, External Ris In - 05/11/2018 2:13 PM CDT Addendum Begins REPORT STATUS:A Addendum: I agree with the previously described non vascular findings. Signed: Antionette Hinojosa MD Report Verified Date/Time: 05/11/2018 14:11:09 Reading Location: [place] [address] Angio Body Reading Room Addendum Ends FINAL [...] coronary artery calcification is seen in the [place] coronary territories. Patient is post coronary artery [...] thoracic aorta. In the abdominal aorta, circumferential zoqn-du-vpkxttkd calcific atherosclerosis is seen. Overall, no ectasia [...] An addendum will be dictated by the Tire Fabric Inspector Radiologist regarding the nonvascular findings. Signed: Magno Augustin MD Report Verified Date/Time: 05/10/2018 18:58:16 Reading Location: [place] [address] Cardiology MRI IAC CATH REPORT - SCAN [...] MD Report Verified Date/Time:05/10/2018 13:00:32 Reading Location: [place] [id number] Ultrasound Reading Room Procedure Note Interface, External [...] Report Verified Date/Time: 05/10/2018 13:00:32 Reading Location: [facility] [id number] Ultrasound Reading Room B-type Natriuretic Factor (BNP) (05/10/2018 5:11 AM)Only the most recent of2 resultswithin the time period is included. Component Value Ref Range BNP 153 (H) 0 - 100 pg/mL Specimen Performing Laboratory Blood - Line, Venous [address] [address] Urinalysis w/Microscopic (05/09/2018 10:02 PM) Component Value Ref Range Color, UA Yellow Clarity, UA Clear Specific Manson, UA 1.025 1.001 - 1.035 pH, UA [...] /HPF Specimen Source Specimen Performing Laboratory Urine [address] [address] Sodium, random urine (05/09/2018 9:38 PM) Component Value Ref Range Sodium Urine <20 meq/L Specimen Performing Laboratory Urine [address] [address] Narrative Reference Range: No Normals Protein, random urine (05/09/2018 9:38 PM) Component Value Ref Range Protein, Urine 15 (H) 0 - 14 mg/dL Specimen Performing Laboratory Urine [address] [address] Creatinine, random urine (05/09/2018 9:38 PM) Component Value Ref Range Creatinine, Ur 173.4 mg/dL Specimen Performing Laboratory Urine [address] [address] Narrative Reference Range: No Normals Eosinophil smear (05/09/2018 9:22 PM) Component Value Ref Range Eosinophil Smear No EOS seen No EOS seen Specimen Performing Laboratory Urine [facility] [address] [address] TRANSFUSION SERVICE REPORT - SCAN (05/09/2018 5:50 PM)NM lung scan (V/Q) (05/09 11:47 AM) Specimen Performing Laboratory GE RIS Narrative FINAL REPORT PROCEDURE: V/Q LUNG SCAN CPT CODE: 17646 INDICATION: Acute chest pain, PE suspected, dyspnea, [...] MD Report Verified Date/Time:05/09/2018 12:03:05 Reading Location: [address] Med Reading Room Procedure Note Interface, External Ris In - 05/09/2018 12:05 PM CDT FINAL REPORT PROCEDURE: V/Q LUNG SCAN CPT CODE: 26275 INDICATION: Acute chest pain, PE suspected, dyspnea, [...] Report Verified Date/Time: 05/09/2018 12:03:05 Reading Location: [address] Med Reading Room foot 2 views left (05/09/2018 10:47 AM) Specimen Performing Laboratory GE RIS Narrative FINAL REPORT Two views left foot Discussion: There is hallux valgus with degenerative changes. No visible acute fracture, dislocation, destructive lesion. Soft tissues are unremarkable. Signed: Darren Ariza MD Report Verified Date/Time:05/09/2018 13:59:01 Reading Location: [address] Consult Reading Room Procedure Note Interface, External Ris In - 05/09/2018 2:01 PM CDT FINAL REPORT Two views left foot Discussion: There is hallux valgus with degenerative changes. No visible acute fracture, dislocation, destructive lesion. Soft tissues are unremarkable. Signed: Darren Ariza MD Report Verified Date/Time: 05/09/2018 13:59:01 Reading Location: [address] Consult Reading Room esoph swallow funct [...] MD Report Verified Date/Time:05/09/2018 11:00:37 Reading Location: [facility] [id number] Ortho Consult Reading Room Procedure Note [...] Report Verified Date/Time: 05/09/2018 11:00:37 Reading Location: [facility] [id number] Ortho Consult Reading Room Venous doppler legs bilateral (05/09/2018 9:20 AM) Component Value Ref Range Ejection Fraction Specimen Performing Laboratory [facility] ECHO HEARTLAB MKCKESSON CPACS Impressions Right Impression [...] Date of Study 05/09/2018 Age 57 Visit [id number] Gender Male Date of 12/20 Number Referring Heidy Mena [facility] Number [id number] Physician [employer] Elsi Arvizu InterpretingAnnie Gaffney RN, Steve HAYES, [facility] Procedure Type of Study: Veins: Lower Extremities [...] of Study 05/09/2018 Age 57 Visit Number [id number] Gender Male Date of 1960 Number Referring Heidy Vargas Room Number [id number] Physician [employer] Elsi Arvizu Interpreting Annie Gaffney RN, T Physician , [facility] Procedure Type of Study: Veins: Lower Extremities [...] Specimen Performing Laboratory [facility] Impressions Right Impression 1. There is <50% [...] Date of Study 05/09/2018 Age 57 Visit [id number] Gender Male Date of 12/20 Number Ezio HOLLEY [facility] Number [id number] Physician OBED [employer] Elsi PhippsJ. Wilver Gaffney RN, Steve HAYES, [...] of Study 05/09/2018 Age 57 Visit Number [id number] Gender Male Date of 1960 Number Referring [facility] Room Number [id number] Physician OBED [employer] Elsi Arvizu Interpreting Annie Gaffney RN, T [...] left side. - Additional Measurements:ICAPSV/CCAPSV 1.06.ICAEDV/CCAEDV 1.83. [place] level (05/09/2018 7:54 AM) Component Value Ref Range [place] Level 0.4 (L) 0.8 - 1.2 mmol/L Specimen Performing Laboratory Blood - Arm, [address] [address] Lipid panel (05/09/2018 7:54 AM) Component Value Ref Range Triglycerides 161Comment: Specimen slightly hemolyzed mg/dL Cholesterol 111Comment: Specimen slightly hemolyzed mg/dL HDL 39 mg/dL LDL Calculated 40 mg/dL Specimen Performing Laboratory Blood - Arm, [address] [address] Narrative Triglyceride Reference Range: Low Risk <150 Hlqciwgrmg140-362 High Risk 200-499 Very High Risk>=500 Cholesterol Reference Range: Low Risk <200 Ujoxetouyk699-134 High Risk>240 HDL Cholesterol Reference Range: Low Risk >=60 High Risk <40 LDL Cholesterol Reference Range: Optimal<100 Near Dyfehmr018-241 Tsgdmllcwd897-324 Yjun690-744 Very High >=190 Rapid drug screen, urine (05/09/2018 6:32 AM) Component Value Ref Range Barbiturate Screen Negative Negative Benzodiazepine Screen Positive (A) Negative Cocaine (Metab.) Screen Negative Negative Methadone Screen Negative Negative Opiate Screen Positive (A) Negative Cannabinoid Screen Negative Negative Amph/Methamph Screen Negative Negative Phencyclidine Screen Negative Negative Oxycodone Screen Negative Negative Specimen Performing Laboratory Urine [address] [address] Narrative DRUGCUTOFF CONC. Cocaine 300 ng/mL Gbvsyanccxi65 ng/mL Ncmamskpdpbvdy134 ng/mL Barbiturate 200 ng/mL Xgbxjzysmqbfz04 ng/mL Mbuvaq288 ng/mL Methadone 300 ng/mL Amphetamine/ 1000 ng/mL Methamphetamine Oxycodone 300 ng/mL This assay provides an unconfirmed qualitative test result for the clinical management of patients in emergency situations. Chain of custody not maintained. Some yzgq-htj-hylgile medications, as well as adulterants, may cause inaccurate results. Clinical correlation should be applied. A more comprehensive drug screen or confirmation of a detected drug may be performed upon request. Hemoglobin A1c (05/09/2018 6:30 AM) Component Value Ref Range Hemoglobin A1C 6.3 (H) 4.3 - 6.1 % Specimen Performing Laboratory Blood - Arm, [address] [address] Troponin I (05/09/2018 3:53 AM)Only the most recent of2 resultswithin the time period is included. Component Value Ref Range Troponin I 0.04 (H) 0.00 - 0.03 ng/mL Specimen Performing Laboratory Blood - Arm, [address] [address] Narrative Troponin I (TnI) levels must be [...] WBC Specimen Performing Laboratory Blood - Arm, [address] [address] Creatine Kinase (CK), Total and MB (05/09/2018 3:53 AM)Only the most recent of2 resultswithin the time period is included. Component Value Ref Range Total CK 161 29 - 200 U/L CK-MB 4.9 0.0 - 6.6 ng/mL MB Relative Index 3.0 % Specimen Performing Laboratory Blood - Arm, [address] [address] Narrative CK-MB Reference Range: <6.7Normal 6.7-10.0Borderline >10.[address] brain without IV contrast (05/08/2018 8:55 PM) Specimen Performing Laboratory VCharge Narrative FINAL REPORT CT, BRAIN, WITHOUT CONTRAST [...] MD Report Verified Date/Time:05/08/2018 21:00:20 Reading Location: [address] Reading Room Procedure Note Interface, External [...] Report Verified Date/Time: 05/08/2018 21:00:20 Reading Location: [address] Reading Room Type and screen, automated ([facility] Lab) (05/08/2018 5:54 PM) Component Value Ref Range ABO/RH AUTOMATED (BEAKER) B POSITIVE Ab Scrn NEGATIVE Specimen Performing Laboratory Blood [address] [address] aPTT (05/08/2018 5:54 PM) Component Value Ref Range PTT 30.0 22.5 - 36.0 seconds Specimen Performing Laboratory Blood [address] [address] Narrative Prior to initiating heparin ECG 12 lead (05/08/2018 5:11 PM) Specimen Performing Laboratory [facility] MUSE Narrative Ventricular Rate 81 BPM Atrial Rate 81 BPM P-R Interval 170 ms QRS Duration 106 ms Q-T Interval 464 ms QTC Calculation(Bazett) 539 ms P [place] 59 degrees R [place] 42 degrees T [place] 90 degrees Normal sinus rhythm Interatrial conduction [...] precordial leads placement Confirmed by MD JAIMEE, SHEILA ([id number]) on 05/09/2018 5:06:47 AM Procedure Note Interface, External Ris In - 05/09/2018 5:07 AM CDT Ventricular Rate 81 BPM Atrial Rate 81 BPM P-R Interval 170 ms QRS Duration 106 ms Q-T Interval 464 ms QTC Calculation(Bazett) 539 ms P [place] 59 degrees R [place] 42 degrees T [place] 90 degrees Normal sinus rhythm Interatrial conduction [...] YOCHAI ([id number]) on 05/09/2018 5:06:47 AM after 06/08/2017
--- OUTSIDE RECORDS SUMMARY | 2018-06-09 18:39 | XMS REPORT ---
[...] Status Dosage System Date Date Clonidine HCl [facility] 25247899184 0.3 MG Orally Nov 30 Inactive 1 tablet Twice a day [address] [facility] 81493802383 100-5 MCG/ACT Active 2 puffs Inhalation Twice a day Valproic Acid ND 92231415387 250 MG Orally Inactive not three times a defined day Lisinopril ND 52159906793 10 MG Orally December Inactive 1 tablet Once a day [address] [facility] 01725885666 12.5 MG Orally Active not twice a day defined [place] [facility] 52288664367 10-325 MG Active 1 tablet Orally every 6 as needed hrs Lisinopril [facility] 50446849604 40 MG Orally February 28, Active 1 tablet Once a day [address] [facility] 23794895615 25 mg po February Inactive one tab bedtime [address] [facility] 59089230160 5 MG Orally Inactive 1 tablet Once a day Clonidine HCl [facility] 30801875838 0.3 MG Orally Inactive 1 tablet Twice a day Amiodarone HCl [facility] 48976921586 200 MG Orally Active 1 tablet Once a day Lipitor [facility] 01169855404 40 MG Orally February 28, Active 1 tablet Once a day [address] [facility] 99527237485 12.5 MG Orally December Active as bid [address] [facility] 80482404256 50 MG Orally February 28, Active 1 tablet HCl Once a day [address] [facility] 35092820651 Inactive not defined Cheratussin AC [facility] 27584510680 100-10 MG/5ML Inactive 10 ml Orally every 8 [address] [facility] 13588556102 0.2 MG Orally February 28, Active 1 tablet twice a day 2017 Results No Known Results Summary Purpose eClinicalWorks Submission
--- OUTSIDE RECORDS SUMMARY | 2018-06-09 18:39 | XMS REPORT ---
[...] End Status Dosage System Date Date Coreg [facility] 70502011873 12.5 MG Orally Active not twice a day defined [place] [facility] [address]-66 Active not Carbonate ER defined Coreg [facility] 29809714661 12.5 MG Orally December Active as bid 2017 Clonidine HCl [facility] 68171501102 0.3 MG Orally March 15, Active 1 tablet Twice a day 2017 Memantine HCl [facility] 13524361561 10 MG Orally March 15, Active 1 tablet Twice a day 2017 Lipitor [facility] 07299485722 40 MG Orally February 28, Active 1 tablet Once a day 2017 Dulera [facility] 76454429535 100-5 MCG/ACT Active 2 puffs Inhalation Twice a day Lisinopril [facility] 35838682304 40 MG Orally February 28, Active 1 tablet Once a day 2017 Clonidine HCl [facility] 72748824707 0.2 MG Orally February 28, Inactive 1 tablet twice a day 2017 Amitriptyline [facility] 94188064581 50 MG Orally February 28, Active 1 tablet HCl Once a day 2017 Amiodarone HCl [facility] 04422088072 200 MG Orally Active 1 tablet Once a day [place] [facility] 71785220222 10-325 MG Active 1 tablet Orally every 6 as needed hrs Results No Known Results Summary Purpose eClinicalWorks Submission
--- OUTSIDE RECORDS SUMMARY | 2018-06-09 18:39 | XMS REPORT ---
[...] End Status Dosage System Date Date Dulera [facility] 58142001291 100-5 MCG/ACT Active 2 puffs Inhalation Twice a day Amitriptyline [facility] 66592690664 50 MG Orally February 28, Active 1 tablet HCl Once a day 2017 Amiodarone HCl [facility] 12685969083 200 MG Orally Active 1 tablet Once a day Memantine HCl [facility] 70015290008 10 MG Orally Active 1 tablet Twice a day Clonidine HCl [facility] 18913218667 0.1 MG Orally April 20, Active 2 tablet twice 2017 twice x 1 week then 1 tablet twice a day for 1 week. Coreg [facility] 28989451150 12.5 MG Orally Active 2 tabs bid [place] [facility] 51763993498 10-325 MG Active 1 tablet Orally every 6 as needed hrs Linzess [facility] 77528186187 145 MCG Orally April 20Jun Active 1 capsule Once a day 2017 Lipitor [facility] 82012698162 40 MG Orally Active 1 tablet Once a day Clonidine HCl [facility] 64190510260 0.3 MG Orally Inactive 1 tablet Twice a day Lisinopril [facility] 97532449302 40 MG Orally Active 1 tablet Once a day Results No Known Results Summary Purpose eClinicalWorks Submission
--- OUTSIDE RECORDS SUMMARY | 2018-06-09 18:39 | XMS REPORT ---
:1960 Author Organization [facility] Address [address] [place], [place] [address]aurelia Burns [address] [place] [address] Care Team Providers Name Role Phone GLENN [...] Range Comments HEPATITIS C ANTIBODY (BEAKER) (test iiwp=548) Reactive Nonreactive POCT-GLUCOSE [id number] 12:03:00 Test Item Value Reference Range Comments POC-GLUCOSE METER (BEAKER) 169 mg/dL 70-110 TESTED AT [address] (test ruih=2856) [facility] [address] HEPATITIS B CORE ANTIBODY, [id number] 08:37:00 Test Item Value Reference Range Comments HEPATITIS B CORE TOTAL ANTIBODY (BEAKER) (test Reactive Nonreactive bimm=784) POCT-GLUCOSE [id number] 08:14:00 Test Item Value Reference Range Comments POC-GLUCOSE METER (BEAKER) 105 mg/dL 70-110 TESTED AT [address] (test lzbt=1662) [facility] [address] HEPATIC FUNCTION [id number] 07:10:00 Test Item Value Reference Range Comments TOTAL PROTEIN (BEAKER) (test wmfw=133) 6.7 gm/dL 6.0-8.3 ALBUMIN (BEAKER) (test kcya=8189) 3.5 g/dL 3.5-5.0 BILIRUBIN TOTAL (BEAKER) (test amro=679) 0.5 mg/dL 0.2-1.2 BILIRUBIN DIRECT (BEAKER) (test jtlq=544) 0.3 mg/dL 0.1-0.5 ALKALINE PHOSPHATASE (BEAKER) (test mlzq=499) 60 U/L 40-150 AST (SGOT) (BEAKER) (test kbqg=167) 47 U/L 5-34 ALT (SGPT) (BEAKER) (test djte=020) 67 U/L 6-55 BASIC METABOLIC [id number] 07:10:00 Test Item Value Reference Range Comments SODIUM (BEAKER) (test 138 meq/L 136-145 vdqb=178) POTASSIUM (BEAKER) (test 3.8 meq/L 3.5-5.1 bqhz=119) CHLORIDE (BEAKER) (test 104 meq/L 98-107 vwcj=449) CO2 (BEAKER) (test 25 meq/L 22-29 xymr=896) BLOOD UREA NITROGEN 18 mg/dL 7-21 (BEAKER) (test vzwo=528) CREATININE (BEAKER) (test 0.94 mg/dL 0.57-1.25 rwwq=161) GLUCOSE RANDOM (BEAKER) 109 mg/dL 70-105 (test alyr=512) CALCIUM (BEAKER) (test 9.1 mg/dL 8.4-10.2 vcdb=761) EGFR (BEAKER) (test 82 mL/min/1.73 sq m ESTIMATED GFR IS NOT yynb=3181) ACCURATE CREATININE CLEARANCE IN PREDICTING GLOMERULAR FILTRATION RATE. ESTIMATED GFR IS NOT APPLICABLE FOR DIALYSIS PATIENTS. HEPATITIS B SURFACE [id number] 06:58:00 Test Item Value Reference Range Comments HEPATITIS B SURFACE ANTIBODY (BEAKER) (test < mIU/mL <8.0 bdub=287) HEPATITIS B SURFACE [id number] 05:42:00 Test Item Value Reference Range Comments HEPATITIS B SURFACE ANTIGEN (2) (BEAKER) (test Nonreactive Nonreactive agxn=1683) HEPATITIS B CORE ANTIBODY, [id number] 05:42:00 Test Item Value Reference Range Comments HEPATITIS B CORE IGM ANTIBODY (BEAKER) (test Nonreactive Nonreactive letb=954) CBC W/PLT COUNT & AUTO [id number] 04:56:00 Test Item Value Reference Range Comments WHITE BLOOD CELL COUNT (BEAKER) (test yhlu=277) 9.4 K/ L 3.5-10.5 RED BLOOD CELL COUNT (BEAKER) (test amys=715) 4.48 M/ L 4.63-6.08 HEMOGLOBIN (BEAKER) (test brho=340) 13.6 GM/DL 13.7-17.5 HEMATOCRIT (BEAKER) (test gotk=825) 41.5 % 40.1-51.0 MEAN CORPUSCULAR VOLUME (BEAKER) (test mcpf=016) 92.6 fL 79.0-92.2 MEAN CORPUSCULAR HEMOGLOBIN (BEAKER) (test 30.4 pg 25.7-32.2 ivgm=772) MEAN CORPUSCULAR HEMOGLOBIN CONC (BEAKER) (test 32.8 GM/DL 32.3-36.5 piex=896) RED CELL DISTRIBUTION WIDTH (BEAKER) (test 13.5 % 11.6-14.4 jqhs=347) PLATELET COUNT (BEAKER) (test dayh=085) 218 K/CU MM 150-450 MEAN PLATELET VOLUME (BEAKER) (test kixy=772) 11.3 fL 9.4-12.4 NUCLEATED RED BLOOD CELLS (BEAKER) (test 0 /100 WBC 0-0 oppu=356) NEUTROPHILS RELATIVE PERCENT (BEAKER) (test 52 % meuh=521) LYMPHOCYTES RELATIVE PERCENT (BEAKER) (test 31 % bojn=396) MONOCYTES RELATIVE PERCENT (BEAKER) (test 8 % xppr=288) EOSINOPHILS RELATIVE PERCENT (BEAKER) (test 8 % bqol=077) BASOPHILS RELATIVE PERCENT (BEAKER) (test 1 % yyov=285) NEUTROPHILS ABSOLUTE COUNT (BEAKER) (test 4.85 K/ L 1.78-5.38 awku=230) LYMPHOCYTES ABSOLUTE COUNT (BEAKER) (test 2.92 K/ L 1.32-3.57 gvyi=329) MONOCYTES ABSOLUTE COUNT (BEAKER) (test 0.77 K/ L 0.30-0.82 bqyc=533) EOSINOPHILS ABSOLUTE COUNT (BEAKER) (test 0.79 K/ L 0.04-0.54 pkeb=475) BASOPHILS ABSOLUTE COUNT (BEAKER) (test 0.06 K/ L 0.01-0.08 nimf=966) IMMATURE GRANULOCYTES-RELATIVE PERCENT (BEAKER) 0 % 0-1 (test iiqq=5715) U/S, RENAL WITH [id number] 16:28:00Reason for exam:-> hypertensionFINAL REPORT INDICATION: 57-year-old [...] Verified Date/Time: 05/11/2018 16: 28:02 Reading Location: [address] Ultrasound Reading Room U/S, ABDOMINAL, [id number] 16:15:00Abdomen limited area? Add comment if clarification [...] Date/Time: 05/11/2018 16 :15:41 Reading Location: [facility] P006J Ultrasound Reading Room CTA, CHEST, ABDOMEN - PELVIS, FOR [id number] 14:11:00Reason for exam:->Chest painAddendum BeginsREPORT STATUS:A Addendum: I agree with the previously described non vascular findings. Signed: Antionette Hinojosa MDReport Verified Date/Time: 05/11/2018 14:11:09 Reading Location: [facility] P048 Angio Body Reading RoomAddendum EndsFINAL REPORT [...] coronary artery calcification is seen in the [place] coronary territories. Patient is post coronary artery [...] thoracic aorta. In the abdominal aorta, circumferential wyof-kg-jdzanvnc calcific atherosclerosis is seen. Overall, no ectasia [...] An addendum will be dictated by the Ctc Operator Radiologist regarding the nonvascular findings. Signed: Magno Augustin MDRepharry [facility] Verified Date/Time: 05/10/2018 18:58:16 Reading Location: [place] [address] Cardiology MRI CALCIUM, [id number] 05:20:00 Test Item Value Reference Range Comments CALCIUM IONIZED (BEAKER) (test wvnn=805) 1.16 mmol/L 1.12-1.27 PH, BLOOD (BEAKER) (test jxgt=3909) 7.40 [id number] 04:29:00 Test Item Value Reference Range Comments PHOSPHORUS (BEAKER) (test kslv=236) 3.5 mg/dL 2.3-4.7 [id number] 04:29:00 Test Item Value Reference Range Comments MAGNESIUM (BEAKER) (test jgih=010) 2.4 mg/dL 1.6-2.6 COMPREHENSIVE METABOLIC [id number] 04:29:00 Test Item Value Reference Range Comments TOTAL PROTEIN (BEAKER) 6.8 gm/dL 6.0-8.3 (test lsre=713) ALBUMIN (BEAKER) (test 3.6 g/dL 3.5-5.0 bptn=9386) ALKALINE PHOSPHATASE 58 U/L 40-150 (BEAKER) (test wocl=291) BILIRUBIN TOTAL (BEAKER) 0.6 mg/dL 0.2-1.2 (test pdki=218) SODIUM (BEAKER) (test 140 meq/L 136-145 vltl=526) POTASSIUM (BEAKER) (test 3.6 meq/L 3.5-5.1 mqif=305) CHLORIDE (BEAKER) (test 105 meq/L 98-107 fpuu=011) CO2 (BEAKER) (test 28 meq/L 22-29 qliz=207) BLOOD UREA NITROGEN 14 mg/dL 7-21 (BEAKER) (test ftsd=296) CREATININE (BEAKER) (test 0.85 mg/dL 0.57-1.25 ntgw=876) GLUCOSE RANDOM (BEAKER) 83 mg/dL 70-105 (test nfjr=776) CALCIUM (BEAKER) (test 9.0 mg/dL 8.4-10.2 cqzj=908) AST (SGOT) (BEAKER) (test 68 U/L 5-34 ijka=157) ALT (SGPT) (BEAKER) (test 72 U/L 6-55 vjwa=924) EGFR (BEAKER) (test 92 mL/min/1.73 sq m ESTIMATED GFR IS NOT iyrn=5273) ACCURATE CREATININE CLEARANCE IN PREDICTING GLOMERULAR FILTRATION RATE. ESTIMATED GFR IS NOT APPLICABLE FOR DIALYSIS PATIENTS. CBC W/PLT COUNT & AUTO [id number] 03:58:00 Test Item Value Reference Range Comments WHITE BLOOD CELL COUNT (BEAKER) (test kmpy=245) 10.2 K/ L 3.5-10.5 RED BLOOD CELL COUNT (BEAKER) (test jnkt=704) 4.49 M/ L 4.63-6.08 HEMOGLOBIN (BEAKER) (test ajtf=666) 13.4 GM/DL 13.7-17.5 HEMATOCRIT (BEAKER) (test kdzv=455) 41.7 % 40.1-51.0 MEAN CORPUSCULAR VOLUME (BEAKER) (test hbqi=540) 92.9 fL 79.0-92.2 MEAN CORPUSCULAR HEMOGLOBIN (BEAKER) (test 29.8 pg 25.7-32.2 psha=552) MEAN CORPUSCULAR HEMOGLOBIN CONC (BEAKER) (test 32.1 GM/DL 32.3-36.5 bsgy=854) RED CELL DISTRIBUTION WIDTH (BEAKER) (test 13.7 % 11.6-14.4 kswc=083) PLATELET COUNT (BEAKER) (test rwnj=547) 192 K/CU MM 150-450 MEAN PLATELET VOLUME (BEAKER) (test mhbj=841) 10.7 fL 9.4-12.4 NUCLEATED RED BLOOD CELLS (BEAKER) (test 0 /100 WBC 0-0 qjds=133) NEUTROPHILS RELATIVE PERCENT (BEAKER) (test 53 % uujb=578) LYMPHOCYTES RELATIVE PERCENT (BEAKER) (test 32 % ppqb=444) MONOCYTES RELATIVE PERCENT (BEAKER) (test 9 % mahx=833) EOSINOPHILS RELATIVE PERCENT (BEAKER) (test 5 % ssuu=009) BASOPHILS RELATIVE PERCENT (BEAKER) (test 1 % jech=524) NEUTROPHILS ABSOLUTE COUNT (BEAKER) (test 5.36 K/ L 1.78-5.38 ryln=622) LYMPHOCYTES ABSOLUTE COUNT (BEAKER) (test 3.23 K/ L 1.32-3.57 ohmn=227) MONOCYTES ABSOLUTE COUNT (BEAKER) (test 0.93 K/ L 0.30-0.82 nozr=561) EOSINOPHILS ABSOLUTE COUNT (BEAKER) (test 0.54 K/ L 0.04-0.54 qdwd=081) BASOPHILS ABSOLUTE COUNT (BEAKER) (test 0.07 K/ L 0.01-0.08 mhat=131) IMMATURE GRANULOCYTES-RELATIVE PERCENT (BEAKER) 0 % 0-1 (test cyjd=5049) U/S, RENAL, [id number] 13:00:00Reason for exam:->akiShould this be performed at [...] MDReport Verified Date/Time: 05/10/2018 13:00:32 Reading Location: [address] Ultrasound Reading Room CALCIUM, [id number] 06:58:00 Test Item Value Reference Range Comments CALCIUM IONIZED (BEAKER) (test cyfh=535) 1.08 mmol/L 1.12-1.27 PH, BLOOD (BEAKER) (test qirj=0806) 7.35 B-TYPE NATRIURETIC FACTOR (BNP)2018-05-10 05:49:00 Test Item Value Reference Range Comments B-TYPE NATRIURETIC PEPTIDE (BEAKER) (test 153 pg/mL 0-100 ogdy=806) [id number] 05:47:00 Test Item Value Reference Range Comments MAGNESIUM (BEAKER) (test 2.4 mg/dL 1.6-2.6 Specimen slightly hemolyzed fsgv=359) [id number] 05:47:00 Test Item Value Reference Range Comments PHOSPHORUS (BEAKER) (test 2.7 mg/dL 2.3-4.7 Specimen slightly hemolyzed psxv=676) COMPREHENSIVE METABOLIC [id number] 05:47:00 Test Item Value Reference Range Comments TOTAL PROTEIN (BEAKER) 6.1 gm/dL 6.0-8.3 Specimen slightly (test bgve=361) hemolyzed ALBUMIN (BEAKER) (test 3.2 g/dL 3.5-5.0 Specimen slightly iwqh=5327) hemolyzed ALKALINE PHOSPHATASE 48 U/L 40-150 (BEAKER) (test dspm=629) BILIRUBIN TOTAL (BEAKER) 0.8 mg/dL 0.2-1.2 Specimen slightly (test kmrp=103) hemolyzed SODIUM (BEAKER) (test 140 meq/L 136-145 yedg=199) POTASSIUM (BEAKER) (test 4.1 meq/L 3.5-5.1 Specimen slightly mbdw=710) hemolyzed CHLORIDE (BEAKER) (test 109 meq/L 98-107 jubc=775) CO2 (BEAKER) (test 23 meq/L 22-29 ohjy=056) BLOOD UREA NITROGEN 24 mg/dL 7-21 (BEAKER) (test ylyn=912) CREATININE (BEAKER) (test 0.88 mg/dL 0.57-1.25 Specimen slightly mrgg=058) hemolyzed GLUCOSE RANDOM (BEAKER) 88 mg/dL 70-105 (test lkov=458) CALCIUM (BEAKER) (test 8.3 mg/dL 8.4-10.2 zwap=341) AST (SGOT) (BEAKER) (test 51 U/L 5-34 Specimen slightly axzw=060) hemolyzed ALT (SGPT) (BEAKER) (test 74 U/L 6-55 Specimen slightly cujf=954) hemolyzed EGFR (BEAKER) (test 89 mL/min/1.73 sq m ESTIMATED GFR IS NOT hlvv=7055) ACCURATE CREATININE CLEARANCE IN PREDICTING GLOMERULAR FILTRATION RATE. ESTIMATED GFR IS NOT APPLICABLE FOR DIALYSIS PATIENTS. CBC W/PLT COUNT & AUTO [id number] 05:31:00 Test Item Value Reference Range Comments WHITE BLOOD CELL COUNT (BEAKER) (test bygq=351) 13.0 K/ L 3.5-10.5 RED BLOOD CELL COUNT (BEAKER) (test uhhc=076) 4.32 M/ L 4.63-6.08 HEMOGLOBIN (BEAKER) (test inmg=571) 13.0 GM/DL 13.7-17.5 HEMATOCRIT (BEAKER) (test gbwe=691) 40.5 % 40.1-51.0 MEAN CORPUSCULAR VOLUME (BEAKER) (test xngu=058) 93.8 fL 79.0-92.2 MEAN CORPUSCULAR HEMOGLOBIN (BEAKER) (test 30.1 pg 25.7-32.2 bcwh=092) MEAN CORPUSCULAR HEMOGLOBIN CONC (BEAKER) (test 32.1 GM/DL 32.3-36.5 cwny=740) RED CELL DISTRIBUTION WIDTH (BEAKER) (test 13.9 % 11.6-14.4 bepz=017) PLATELET COUNT (BEAKER) (test anqp=727) 215 K/CU MM 150-450 MEAN PLATELET VOLUME (BEAKER) (test xppv=759) 11.2 fL 9.4-12.4 NUCLEATED RED BLOOD CELLS (BEAKER) (test 0 /100 WBC 0-0 uepw=205) NEUTROPHILS RELATIVE PERCENT (BEAKER) (test 56 % wlbi=867) LYMPHOCYTES RELATIVE PERCENT (BEAKER) (test 32 % ugtx=828) MONOCYTES RELATIVE PERCENT (BEAKER) (test 9 % ocko=398) EOSINOPHILS RELATIVE PERCENT (BEAKER) (test 2 % peqs=274) BASOPHILS RELATIVE PERCENT (BEAKER) (test 1 % sujb=628) NEUTROPHILS ABSOLUTE COUNT (BEAKER) (test 7.24 K/ L 1.78-5.38 lvta=071) LYMPHOCYTES ABSOLUTE COUNT (BEAKER) (test 4.17 K/ L 1.32-3.57 oqxi=476) MONOCYTES ABSOLUTE COUNT (BEAKER) (test 1.12 K/ L 0.30-0.82 ecvv=062) EOSINOPHILS ABSOLUTE COUNT (BEAKER) (test 0.30 K/ L 0.04-0.54 inhb=942) BASOPHILS ABSOLUTE COUNT (BEAKER) (test 0.07 K/ L 0.01-0.08 anlx=798) IMMATURE GRANULOCYTES-RELATIVE PERCENT (BEAKER) 1 % 0-1 (test nudh=3819) EOSINOPHIL SMEAR, [id number] 22:19:00 Test Item Value Reference Range Comments EOSINOPHIL SMEAR, URINE (BEAKER) (test No EOS seen No EOS seen dwfb=0716) URINALYSIS W/ [id number] 22:13:00 Test Item Value Reference Range Comments COLOR (BEAKER) (test peni=740) Yellow CLARITY (BEAKER) (test vvkd=032) Clear SPECIFIC GRAVITY UA (BEAKER) (test cddl=625) 1.025 1.001-1.035 PH UA (BEAKER) (test cjsx=200) 5.5 5.0-8.0 PROTEIN UA (BEAKER) (test rjal=660) 20 mg/dL Negative GLUCOSE UA (BEAKER) (test jttb=507) 70 mg/dL Negative KETONES UA (BEAKER) (test uoza=377) Negative Negative BILIRUBIN UA (BEAKER) (test ziqn=055) Negative Negative BLOOD UA (BEAKER) (test mojv=613) Negative Negative NITRITE UA (BEAKER) (test pjve=376) Negative Negative LEUKOCYTE ESTERASE UA (BEAKER) (test eatf=789) Negative Negative UROBILINOGEN UA (BEAKER) (test myuq=020) 3.0 mg/dL 0.2-1.0 RBC UA (BEAKER) (test ufor=216) 0 /HPF WBC UA (BEAKER) (test ymmb=357) 2 /HPF BACTERIA (BEAKER) (test ohrs=476) Rare MUCUS (BEAKER) (test rxto=0763) Few SQUAMOUS EPITHELIAL (BEAKER) (test cpuz=231) 1 /HPF SOURCE(BEAKER) (test jsfw=8225) SODIUM, RANDOM [id number] 21:38:00 Test Item Value Reference Range Comments SODIUM URINE (BEAKER) (test zznh=947) < meq/L Reference Range: No NormalsPROTEIN, RANDOM [id number] 21:38:00 Test Item Value Reference Range Comments PROTEIN, URINE (BEAKER) (test tral=0713) 15 mg/dL 0-14 CREATININE, RANDOM [id number] 21:38:00 Test Item Value Reference Range Comments CREATININE URINE (BEAKER) (test ykjq=419) 173.4 mg/dL Reference Range: No NormalsRAD, FOOT, 2 VIEWS, [id number] 13:59:00Reason for exam:->Pain and swelling of left foot after fall.FINAL REPORT Two views left foot Discussion: There is hallux valgus with degenerative changes. No visible acute fracture, dislocation, destructive lesion. Soft tissues are unremarkable. Signed: Darren Arizatay Verified Date/Time: 05/09/2018 13:59:01 Reading Location: [facility] C013W Consult Reading Room PUL PERF IMAGING, PARTIC, [id number] 12:03:00FINAL REPORT PROCEDURE: V/Q LUNG SCAN CPT CODE: 86017 INDICATION: Acute chest pain, PE suspected, dyspnea, [...] [facility] [address] [facility] Reading Room FL, ESOPH, SWALLOW FUNCTION, WITH CINE OR [id number] 11:00:00Reason for exam:-& gt;chest painFINAL REPORT Esophagram [...] : [facility] B1 [address] [facility] Consult Reading Room HEMOGLOBIN [id number] 10:45:00 Test Item Value Reference Range Comments HEMOGLOBIN A1C (BEAKER) (test spvt=137) 6.3 % 4.3-6.1 BASIC METABOLIC [id number] 08:43:00 Test Item Value Reference Range Comments SODIUM (BEAKER) (test 138 meq/L 136-145 tzrr=089) POTASSIUM (BEAKER) (test 3.8 meq/L 3.5-5.1 Specimen slightly orsq=703) hemolyzed CHLORIDE (BEAKER) (test 104 meq/L 98-107 xlpv=917) CO2 (BEAKER) (test 24 meq/L 22-29 ntpb=952) BLOOD UREA NITROGEN 35 mg/dL 7-21 (BEAKER) (test mmlw=527) CREATININE (BEAKER) (test 1.39 mg/dL 0.57-1.25 Specimen slightly simo=861) hemolyzed GLUCOSE RANDOM (BEAKER) 124 mg/dL 70-105 (test csvx=398) CALCIUM (BEAKER) (test 9.2 mg/dL 8.4-10.2 drkg=678) EGFR (BEAKER) (test 52 mL/min/1.73 sq m ESTIMATED GFR IS NOT bbir=3725) ACCURATE CREATININE CLEARANCE IN PREDICTING GLOMERULAR FILTRATION RATE. ESTIMATED GFR IS NOT APPLICABLE FOR DIALYSIS PATIENTS. Re-draw per labLIPID [id number] 08:42:00 Test Item Value Reference Range Comments TRIGLYCERIDES (BEAKER) (test 161 mg/dL Specimen slightly hemolyzed uwxo=493) CHOLESTEROL (BEAKER) (test 111 mg/dL Specimen slightly hemolyzed wqxg=727) HDL CHOLESTEROL (BEAKER) (test 39 mg/dL vkwp=964) LDL CHOLESTEROL CALCULATED 40 mg/dL (BEAKER) (test sdqv=982) Triglyceride Reference Range: Low Risk <150 Borderline 150- 199 High Risk 200-499 Very High Risk >=500Cholesterol Reference Range: Low Risk <200 Borderline 200-239 High Risk > 240HDL Cholesterol Reference Range: Low Risk >=60 High Risk <40LDL Cholesterol Reference Range: Optimal <100 Near Optimal 100-129 Borderline 130-159 High 160-189 Very High >=190LITHIUM [id number] 08:31:00 Test Item Value Reference Range Comments LITHIUM LEVEL (BEAKER) (test afro=838) 0.4 mmol/L 0.8-1.2 RAPID DRUG SCREEN, [id number] 07:54:00 Test Item Value Reference Range Comments BARBITURATE URINE (BEAKER) (test pdyz=678) Negative Negative BENZODIAZEPINE SCREEN URINE (BEAKER) (test Positive Negative edov=281) COCAINE (METAB.) SCREEN (BEAKER) (test rayo=1664) Negative Negative METHADONE SCREEN (BEAKER) (test ujkr=2199) Negative Negative OPIATE SCREEN URINE (BEAKER) (test dyeg=149) Positive Negative CANNABINOID SCREEN URINE (BEAKER) (test jplo=886) Negative Negative AMPH/METHAMPH SCREEN (BEAKER) (test eakg=4358) Negative Negative PHENCYCLIDINE SCREEN URINE (BEAKER) (test rjkq=989) Negative Negative OXYCODONE SCREEN URINE (BEAKER) (test xcwg=7377) Negative Negative DRUG CUTOFF CONC.Cocaine 300 ng/mL Cannabinoid 50 ng/mL Benzodiazepine 200 ng/mLBarbiturate 200 ng/ mLPhencyclidine 25 ng/mLOpiate 300 ng/mLMethadone 300 ng/mLAmphetamine/ 1000 ng/mL MethamphetamineOxycodone 300 ng/mLThis assay provides an unconfirmed qualitative test result for the clinical management of patients in emergency situations. Chain of custody not maintained. Some ggqu-pkx-lcdwxax medications, as well as adulterants, may cause inaccurate results. Clinical correlation should be applied. A more comprehensive drug screen or confirmation of a detected drug may be performed upon request.CREATINE KINASE (CK), TOTAL AND [id number] 07:47:00 Test Item Value Reference Range Comments CREATINE KINASE TOTAL (BEAKER) (test rzxg=963) 161 U/L 29-200 CREATINE KINASE-MB (BEAKER) (test cxlh=916) 4.9 ng/mL 0.0-6.6 CREATINE KINASE-MB INDEX (BEAKER) (test lbmz=387) 3.0 % CK-MB Reference Range:<6.7 Normal6.7-10.0 Borderline>10.0 AbnormalTROPONIN [id number] 07:47:00 Test Item Value Reference Range Comments TROPONIN I (BEAKER) (test ccbs=524) 0.04 ng/mL 0.00-0.03 Troponin I (TnI) levels [...] acute neurological disease, and persistent tachyarrhythmia.BASIC METABOLIC [id number] 04:56:00 Test Item Value Reference Range Comments SODIUM (BEAKER) (test 139 meq/L 136-145 cvzw=539) POTASSIUM (BEAKER) (test 3.4 meq/L 3.5-5.1 butd=849) CHLORIDE (BEAKER) (test 105 meq/L 98-107 vulf=136) CO2 (BEAKER) (test 25 meq/L 22-29 ufli=599) BLOOD UREA NITROGEN 38 mg/dL 7-21 (BEAKER) (test pljm=371) CREATININE (BEAKER) (test 1.35 mg/dL 0.57-1.25 iofe=397) GLUCOSE RANDOM (BEAKER) 140 mg/dL 70-105 (test wjoc=589) CALCIUM (BEAKER) (test 8.9 mg/dL 8.4-10.2 dgeo=174) EGFR (BEAKER) (test 54 mL/min/1.73 sq m ESTIMATED GFR IS NOT fzoy=2485) ACCURATE CREATININE CLEARANCE IN PREDICTING GLOMERULAR FILTRATION RATE. ESTIMATED GFR IS NOT APPLICABLE FOR DIALYSIS PATIENTS. CBC (HEMOGRAM ONLY)2018-05-09 04:38:00 Test Item Value Reference Range Comments WHITE BLOOD CELL COUNT (BEAKER) (test bblb=521) 15.8 K/ L 3.5-10.5 RED BLOOD CELL COUNT (BEAKER) (test pfiv=617) 4.80 M/ L 4.63-6.08 HEMOGLOBIN (BEAKER) (test gjmn=794) 14.5 GM/DL 13.7-17.5 HEMATOCRIT (BEAKER) (test teqq=226) 44.0 % 40.1-51.0 MEAN CORPUSCULAR VOLUME (BEAKER) (test hchr=409) 91.7 fL 79.0-92.2 MEAN CORPUSCULAR HEMOGLOBIN (BEAKER) (test 30.2 pg 25.7-32.2 kiwy=248) MEAN CORPUSCULAR HEMOGLOBIN CONC (BEAKER) (test 33.0 GM/DL 32.3-36.5 lnfa=328) RED CELL DISTRIBUTION WIDTH (BEAKER) (test 14.2 % 11.6-14.4 cwku=893) PLATELET COUNT (BEAKER) (test rcrb=032) 238 K/CU MM 150-450 MEAN PLATELET VOLUME (BEAKER) (test xikr=790) 11.5 fL 9.4-12.4 NUCLEATED RED BLOOD CELLS (BEAKER) (test 0 /100 WBC 0-0 sebj=769) CT, BRAIN, WITHOUT [id number] 21:00:00FINAL REPORT CT, BRAIN, WITHOUT CONTRAST INDICATION: [...] Verified Date/ Time: 05/08/2018 21:00:20 Reading Location: [address] Reading Room B- TYPE NATRIURETIC FACTOR (BNP)2018-05-08 19:03:00 Test Item Value Reference Range Comments B-TYPE NATRIURETIC PEPTIDE (BEAKER) (test 254 pg/mL 0-100 fvds=897) CREATINE KINASE (CK), TOTAL AND [id number] 19:02:00 Test Item Value Reference Range Comments CREATINE KINASE TOTAL (BEAKER) (test juho=968) 150 U/L 29-200 CREATINE KINASE-MB (BEAKER) (test flty=544) 5.5 ng/mL 0.0-6.6 CREATINE KINASE-MB INDEX (BEAKER) (test suev=619) 3.7 % CK-MB Reference Range:<6.7 Normal6.7-10.0 Borderline>10.0 AbnormalTROPONIN [id number] 19:02:00 Test Item Value Reference Range Comments TROPONIN I (BEAKER) (test wsvx=531) 0.06 ng/mL 0.00-0.03 Troponin I (TnI) levels [...] acute neurological disease, and persistent tachyarrhythmia.BASIC METABOLIC [id number] 18:32:00 Test Item Value Reference Range Comments SODIUM (BEAKER) (test 137 meq/L 136-145 esaw=300) POTASSIUM (BEAKER) (test 3.9 meq/L 3.5-5.1 levh=076) CHLORIDE (BEAKER) (test 102 meq/L 98-107 ifhl=999) CO2 (BEAKER) (test 24 meq/L 22-29 ejtq=580) BLOOD UREA NITROGEN 35 mg/dL 7-21 (BEAKER) (test euaq=995) CREATININE (BEAKER) (test 1.56 mg/dL 0.57-1.25 kynr=520) GLUCOSE RANDOM (BEAKER) 119 mg/dL 70-105 (test ryot=151) CALCIUM (BEAKER) (test 9.3 mg/dL 8.4-10.2 pndh=715) EGFR (BEAKER) (test 46 mL/min/1.73 sq m ESTIMATED GFR IS NOT jkwc=2349) ACCURATE CREATININE CLEARANCE IN PREDICTING GLOMERULAR FILTRATION RATE. ESTIMATED GFR IS NOT APPLICABLE FOR DIALYSIS PATIENTS. CBC W/PLT COUNT & AUTO [id number] 18:28:00 Test Item Value Reference Range Comments WHITE BLOOD CELL COUNT (BEAKER) (test iolg=175) 17.1 K/ L 3.5-10.5 RED BLOOD CELL COUNT (BEAKER) (test zyrg=859) 5.16 M/ L 4.63-6.08 HEMOGLOBIN (BEAKER) (test fexn=749) 15.5 GM/DL 13.7-17.5 HEMATOCRIT (BEAKER) (test qklv=548) 47.6 % 40.1-51.0 MEAN CORPUSCULAR VOLUME (BEAKER) (test bxnk=187) 92.2 fL 79.0-92.2 MEAN CORPUSCULAR HEMOGLOBIN (BEAKER) (test 30.0 pg 25.7-32.2 byyy=858) MEAN CORPUSCULAR HEMOGLOBIN CONC (BEAKER) (test 32.6 GM/DL 32.3-36.5 kheu=356) RED CELL DISTRIBUTION WIDTH (BEAKER) (test 14.0 % 11.6-14.4 iash=536) PLATELET COUNT (BEAKER) (test sisw=795) 297 K/CU MM 150-450 MEAN PLATELET VOLUME (BEAKER) (test aldq=892) 11.3 fL 9.4-12.4 NUCLEATED RED BLOOD CELLS (BEAKER) (test 0 /100 WBC 0-0 rrdv=089) NEUTROPHILS RELATIVE PERCENT (BEAKER) (test 78 % hqqf=104) LYMPHOCYTES RELATIVE PERCENT (BEAKER) (test 14 % oifk=467) MONOCYTES RELATIVE PERCENT (BEAKER) (test 7 % puxg=309) EOSINOPHILS RELATIVE PERCENT (BEAKER) (test 0 % ffqi=161) BASOPHILS RELATIVE PERCENT (BEAKER) (test 0 % opfb=950) NEUTROPHILS ABSOLUTE COUNT (BEAKER) (test 13.35 K/ L 1.78-5.38 iltd=682) LYMPHOCYTES ABSOLUTE COUNT (BEAKER) (test 2.35 K/ L 1.32-3.57 rgnq=887) MONOCYTES ABSOLUTE COUNT (BEAKER) (test 1.23 K/ L 0.30-0.82 fvdy=553) EOSINOPHILS ABSOLUTE COUNT (BEAKER) (test 0.00 K/ L 0.04-0.54 ausm=906) BASOPHILS ABSOLUTE COUNT (BEAKER) (test 0.05 K/ L 0.01-0.08 xbho=341) IMMATURE GRANULOCYTES-RELATIVE PERCENT (BEAKER) 1 % 0-1 (test ovqr=6928) [id number] 18:15:00 Test Item Value Reference Range Comments PARTIAL THROMBOPLASTIN TIME (BEAKER) (test 30.0 seconds 22.5-36.0 tqrj=927) Prior to initiating heparin
[2018-06-09] MEDS ORDERED: MORPHINE 4 MG/ML SYR ONE ×2 (19:43→22:21)
[2018-06-09] MEDS ORDERED: ONDANSETRON 4 MG/2 ML VIAL ONE (19:43)
--- NOTE | 2018-06-09 19:50 | RAD REPORT ---
EXAM DESCRIPTION: RAD - Chest Single View - 06/09/2018 7:44 pm CLINICAL HISTORY: CHEST PAIN Chest pain. COMPARISON: Chest Single View dated 05/31/2018; Chest Single View dated 05/08/2018; Chest Pa And Lat (2 Views) dated 11/22/2017; Chest Single View dated 11/21/2017 FINDINGS: Portable technique limits examination quality. The lungs are grossly clear. The heart is normal in size. No displaced fractures.Sternotomy wires are present. Cervical hardware plate is noted. IMPRESSION: No acute intrathoracic process suspected.
[2018-06-09 19:59] LABS: Absolute Lymphocytes (CBC) 3.9 K/uL (0.7-4.9); Absolute Monocytes 1.4 K/uL (0.1-1.3); Absolute Neutrophil 9.5 K/uL (1.8-8.0); Basophils % 1.4 % (0-1.3); Eosinophils % 2.1 % (0-4.4); Hematocrit 43.5 % (39.6-49.0); Lymphocytes % 25.1 % (15.3-44.8); MCH 31.5 pg (27.0-35.0); MCV 91.8 fL (80-100); MPV 10.2 fL (7.6-11.3); Monocytes % 9.3 % (3.3-12.3); RBC Red Blood Cell Count 4.74 M/uL (4.33-5.43)
[2018-06-09 20:34] LABS: Protime INR 0.97
[2018-06-09 21:06] LABS: Albumin 3.6 g/dL (3.4-5.0); Bilirubin Direct 0.2 mg/dL (0-0.2); Bilirubin Total 0.4 mg/dL (0.2-1.0); CKMB Creatine Kinase MB 4.5 ng/mL (0.3-3.6); Magnesium 2.8 mg/dL (1.8-2.4); Protein, Total 7.9 g/dL (6.4-8.2)
--- NOTE | 2018-06-09 21:52 | ER ---
Nurse's Notes [facility] Name: Blayne Macias Age: 57 yrs Sex: Male : 1960 Arrival Date: 06/09/2018 Time: 18:39 Bed 17 Private MD: Diagnosis: Other chest pain Presentation: 06/09 18:35 Presenting complaint: EMS states: He is 57 yr. old. A \T\ O x 4. C/o chest pain that rb1 radiates to the left arm. Pt. went to the doctor this morning and they gave him Nitro at 0830 for chest pain and cleared the pt. and sent him home. Pt. has a 20 G L, received Nitro x 1 at 1825 and Aspirin 324 at 1825. BP 154/86, P 105, 98% RA. History of Double bi pass, A-fib, and HTN. Allergic to Penicillin and Codeine. Transition of care: patient was not received from another setting of care. Onset of symptoms was June 09, 2018 at 18:15. Risk Assessment: Do you want to hurt yourself or someone else? Patient reports no desire to harm self or others. Initial Sepsis Screen: Does the patient meet any 2 criteria? No. Patient's initial sepsis screen is negative. Does the patient have a suspected source of infection? No. Patient's initial sepsis screen is negative. Care prior to arrival: Medication(s) given: ASA, 81 mg, x 4, Nitroglycerin, x 2. 18:35 Method Of Arrival: EMS: [facility] rb1 18:35 Acuity: SENTHIL 3 rb1 Triage Assessment: 18:35 General: Appears uncomfortable, Behavior is calm, cooperative, Denies fever. Pain: rb1 Complains of pain in mid-sternal area Pain radiates to left arm and lower jaw Pain currently is 8 out of 10 on a pain scale. Pain began 0800 this morning. Neuro: Level of Consciousness is awake, alert, obeys commands, Oriented to person, place, time, situation. Cardiovascular: Capillary refill < 3 seconds is brisk in bilateral fingers. Respiratory: Airway is patent Respiratory effort is even, unlabored, Respiratory pattern is regular, symmetrical. GI: No signs and/or symptoms were reported involving the gastrointestinal system. : No signs and/or symptoms were reported regarding the genitourinary system. Derm: Skin is pink, warm \T\ dry. Historical: - Allergies: 18:35 Codeine; rb1 18:35 PENICILLINS; rb1 - Home Meds: 18:35 amiodarone 200 mg Oral tab 0.5 tab 2 times per day [Active]; amitriptyline 50 mg Oral rb1 tab 1 tab once daily [Active]; aspirin 81 mg Oral TbEC 1 tab once daily [Active]; carvedilol 25 mg Oral tab 0.5 tab 2 times per day [Active]; clonidine HCl 0.3 mg Oral tab 1 tab 2 times per day [Active]; hydrochlorothiazide 12.5 mg Oral tab 1 tab once daily [Active]; isosorbide mononitrate 60 mg Oral Tb24 [Active]; Lasix 40 mg Oral tab 1 tab once daily [Active]; lisinopril 5 mg Oral tab once daily [Active]; lithium carbonate 300 mg Oral cap 1 cap 3 times per day [Active]; Norvasc 10 mg Oral tab once daily [Active]; ProAir HFA 90 mcg/actuation inhalation HFAA [Active]; simvastatin 40 mg Oral tab 1 tab once daily [Active]; Symbicort 160-4.5 mcg/actuation inhalation HFAA 2 puffs 2 times per day [Active]; - PMHx: 18:35 Atrial Fib; Back pain; Bipolar disorder; CAD; CHF; chronic back pain; COPD; High rb1 Cholesterol; Hypertension; Pneumonia; - PSHx: 18:35 pain stimulator to back, neck surgery; CABG; rb1 - Immunization history:: Adult Immunizations up to date. - Social history:: Smoking status: Patient/guardian denies using tobacco, the patient reports quitting approximately 0.5 years ago. - Ebola Screening: : Patient negative for fever greater than or equal to 101.5 degrees Fahrenheit, and additional compatible Ebola Virus Disease symptoms. Screenin:35 Abuse screen: Denies threats or abuse. Nutritional screening: No deficits noted. rb1 Tuberculosis screening: No symptoms or risk factors identified. Fall Risk None identified. Assessment: 18:35 General: See triage assessment. rb1 19:08 Reassessment: Report received from DIANA Matthews. bs1 19:08 General: Appears in no apparent distress. uncomfortable, Behavior is calm, cooperative, bs1 appropriate for age. Pain: Complains of pain in chest and mid-sternal area Pain radiates to left jaw/left arm. Neuro: Level of Consciousness is awake, alert, obeys commands. Neuro: Level of Consciousness is awake, alert, obeys commands, Oriented to person, place, time, situation, Appropriate for age. Cardiovascular: Reports chest pain, Denies shortness of breath, Heart tones S1 S2 present Capillary refill < 3 seconds Patient's skin is warm and dry. Respiratory: Airway is patent Trachea midline Respiratory effort is even, unlabored, Breath sounds are clear bilaterally. GI: No signs and/or symptoms were reported involving the gastrointestinal system. : No signs and/or symptoms were reported regarding the genitourinary system. EENT: No signs and/or symptoms were reported regarding the EENT system. Derm: Skin is intact. Musculoskeletal: Circulation, motion, and sensation intact. Capillary refill < 3 seconds, Range of motion: intact in all extremities. 20:45 Reassessment: Patient appears in no apparent distress at this time. Patient and/or bs1 family updated on plan of care and expected duration. Pain level reassessed. Patient is alert, oriented x 3, equal unlabored respirations, skin warm/dry/pink. Updated patient on pending lab results/POC. 22:10 Reassessment: Patient and/or family updated on plan of care and expected duration. Pain bs1 level reassessed. Patient is alert, oriented x 3, equal unlabored respirations, skin warm/dry/pink. Patient c/o chest pain, informed Jj BOLAÑOS to order another dose of morphine. 23:30 Reassessment: Patient appears in no apparent distress at this time. Patient and/or bs1 family updated on plan of care and expected duration. Pain level reassessed. Patient is alert, oriented x 3, equal unlabored respirations, skin warm/dry/pink. Patient admitted to 2nd floor. No current orders in [facility] by admitting physician Dr Anders. Patient in no apparent distress. 06/10 00:15 Reassessment: Patient c/o chest pain, morphine given 4mg IV x1 per [facility] order. bs1 informed Nurse Sandra. Vital Signs: 06/09 18:35 BP 157 / 99; Pulse 99; Resp 22; Temp 96.6(O); Pulse Ox 98% on R/A; Weight 77.11 kg (R); rb1 Height 5 ft. 9 in. (175.26 cm) (R); Pain 8/10; 19:05 BP 162 / 100; Pulse 98; Resp 18; Pulse Ox 99% on R/A; mt 20:15 BP 154 / 87; Pulse 85; Resp 18 S; Pulse Ox 97% on R/A; bs1 21:45 BP 158 / 96; Pulse 86; Resp 17; Pulse Ox 96% on R/A; mt 22:21 BP 153 / 87; Pulse 85; Resp 16; Pulse Ox 96% on R/A; mt 23:15 BP 165 / 91; Pulse 80; Resp 18 S; Pulse Ox 97% on R/A; Pain 5/10; bs1 06/10 00:15 BP 149 / 97; Pulse 75; Resp 16; Temp 97.7(O); Pulse Ox 99% on R/A; Pain 7/10; bs1 06/09 18:35 Body Mass Index 25.10 (77.11 kg, 175.26 cm) rb1 ED Course: 06/09 18:35 Arm band placed on right wrist. rb1 18:35 Patient has correct armband on for positive identification. Bed in low position. Call rb1 light in reach. Side rails up X 1. rn endocrinology on. Pulse ox on. NIBP on. 18:35 Maintain EMS IV. Dressing intact. Good blood return noted. Site clean \T\ dry. Gauge \T\ rb 1 site: 20 g R AC. Patient maintains SpO2 saturation greater than 95% on room air. 18:39 Patient arrived in ED. rb1 18:47 Triage completed. rb1 18:51 Jj Saldaña PA is PHCP. jmm 18:51 Taye Bowling MD is Attending Physician. jmm 19:00 Report given to DIANA London. rb1 19:18 Lita Melvin, DIANA is Primary Nurse. bs1 19:45 XRAY Chest (1 view) In Process Unspecified. EDMS 21:51 Qing Anders MD is Hospitalizing Provider. [facility] 23:28 No provider procedures requiring assistance completed. Patient admitted, IV remains in bs1 place. intact. 06/10 00:02 Repeat lab(s) drawn. by tx, sent to lab. second troponin. bs1 Administered Medications: 06/09 19:51 Drug: morphine 4 mg Route: IVP; Site: right forearm; bs1 06/10 00:18 Follow up: Response: No adverse reaction bs1 06/09 19:51 Drug: Zofran 4 mg Route: IVP; Site: right forearm; bs1 06/10 00:18 Follow up: Response: No adverse reaction bs1 06/09 22:20 Drug: morphine 4 mg Route: IVP; Site: right forearm; bs1 06/10 00:18 Follow up: Response: No adverse reaction bs1 Outcome: 06/09 21:51 Decision to Hospitalize by Provider. leah 06/10 00:15 Admitted to Med/surg accompanied by tech, via wheelchair, room 206, with chart, Report bs1 called to DIANA Flores Condition: stable Instructed on the need for admit, Demonstrated understanding of instructions. 00:25 Patient left the ED. bs1 Signatures: Dispatcher [employer] EDMS Jj Saldaña PA PA jmm Barber, Rebecca, Amena Fragoso RN, mt, Brittany, RN RN bs1 Corrections: (The following items were deleted from the chart) 06/09 23:30 22:00 Reassessment: Patient and/or family updated on plan of care and expected bs1 duration. Pain level reassessed. Patient is alert, oriented x 3, equal unlabored respirations, skin warm/dry/pink. bs1
--- NOTE | 2018-06-09 21:52 | EDPHYS ---
Physician Documentation [facility] Name: Blayne Macias Age: 57 yrs Sex: Male : 1960 Arrival Date: 06/09/2018 Time: 18:39 Bed 17 Private MD: ED Physician Taye Bowling HPI: 06/09 19:07 This 57 yrs old Male presents to ER via EMS with complaints of Chest Pain. [facility] 19:07 The patient or guardian reports chest pain that is located primarily in the substernal [facility] area. Onset: gradually, 2 hour(s) ago. The pain radiates to Associated signs and symptoms: Pertinent negatives: shortness of breath. The chest pain is described as a pressure. Duration: The patient or guardian reports a single episode, that is still ongoing. This is a 57 year old male with a history of CAD that presents to the ED with left sided chest pain beginning approx 2 hours prior to arrival. Patient given aspirin, nitro en route. Patient states chest pain radiates to his left arm and jaw. . Historical: - Allergies: 18:35 Codeine; rb1 18:35 PENICILLINS; rb1 - Home Meds: 18:35 amiodarone 200 mg Oral tab 0.5 tab 2 times per day [Active]; amitriptyline 50 mg Oral rb1 tab 1 tab once daily [Active]; aspirin 81 mg Oral TbEC 1 tab once daily [Active]; carvedilol 25 mg Oral tab 0.5 tab 2 times per day [Active]; clonidine HCl 0.3 mg Oral tab 1 tab 2 times per day [Active]; hydrochlorothiazide 12.5 mg Oral tab 1 tab once daily [Active]; isosorbide mononitrate 60 mg Oral Tb24 [Active]; Lasix 40 mg Oral tab 1 tab once daily [Active]; lisinopril 5 mg Oral tab once daily [Active]; lithium carbonate 300 mg Oral cap 1 cap 3 times per day [Active]; Norvasc 10 mg Oral tab once daily [Active]; ProAir HFA 90 mcg/actuation inhalation HFAA [Active]; simvastatin 40 mg Oral tab 1 tab once daily [Active]; Symbicort 160-4.5 mcg/actuation inhalation HFAA 2 puffs 2 times per day [Active]; - PMHx: 18:35 Atrial Fib; Back pain; Bipolar disorder; CAD; CHF; chronic back pain; COPD; High rb1 Cholesterol; Hypertension; Pneumonia; - PSHx: 18:35 pain stimulator to back, neck surgery; CABG; rb1 - Immunization history:: Adult Immunizations up to date. - Social history:: Smoking status: Patient/guardian denies using tobacco, the patient reports quitting approximately 0.5 years ago. - Ebola Screening: : Patient negative for fever greater than or equal to 101.5 degrees Fahrenheit, and additional compatible Ebola Virus Disease symptoms. ROS: 19:07 Constitutional: Negative for fever, chills, and weight loss. [facility] 19:07 Respiratory: Negative for shortness of breath, cough, wheezing, and pleuritic chest pain, Abdomen/GI: Negative for abdominal pain, nausea, vomiting, diarrhea, and constipation, Back: Negative for injury and pain, Neuro: Negative for headache, weakness, numbness, tingling, and seizure. 19:07 Cardiovascular: Positive for chest pain. 19:07 All other systems are negative. Exam: 19:07 Head/Face: atraumatic. Chest/axilla: Normal chest wall appearance and motion. [facility] 19:07 Constitutional: The patient appears alert, awake, anxious, uncomfortable. 19:07 Cardiovascular: Rate: normal, Rhythm: regular, Pulses: no pulse deficits are appreciated. 19:07 Respiratory: the patient does not display signs of respiratory distress, Respirations: normal, Breath sounds: are clear throughout. 19:07 Abdomen/GI: Inspection: abdomen appears normal, Bowel sounds: normal, Palpation: abdomen is soft and non-tender, in all quadrants. 19:07 Back: ROM is normal. 19:07 Musculoskeletal/extremity: ROM: intact in all extremities. 19:07 Skin: Appearance: Color: normal in color. 19:07 Neuro: Orientation: is normal, Mentation: is normal, Memory: is normal, Gait: is steady. 19:07 Psych: Behavior/mood is pleasant, cooperative. 19:32 ECG was reviewed by the Attending Physician. [facility] Vital Signs: 18:35 BP 157 / 99; Pulse 99; Resp 22; Temp 96.6(O); Pulse Ox 98% on R/A; Weight 77.11 kg (R); rb1 Height 5 ft. 9 in. (175.26 cm) (R); Pain 8/10; 19:05 BP 162 / 100; Pulse 98; Resp 18; Pulse Ox 99% on R/A; mt 20:15 BP 154 / 87; Pulse 85; Resp 18 S; Pulse Ox 97% on R/A; bs1 21:45 BP 158 / 96; Pulse 86; Resp 17; Pulse Ox 96% on R/A; mt 22:21 BP 153 / 87; Pulse 85; Resp 16; Pulse Ox 96% on R/A; mt 23:15 BP 165 / 91; Pulse 80; Resp 18 S; Pulse Ox 97% on R/A; Pain 5/10; bs1 08 00:15 BP 149 / 97; Pulse 75; Resp 16; Temp 97.7(O); Pulse Ox 99% on R/A; Pain 7/10; bs1 06/09 18:35 Body Mass Index 25.10 (77.11 kg, 175.26 cm) rb1 MDM: 06/09 19:07 Patient medically screened. [facility] 22:13 The patient was not given aspirin in the Emergency Department. Administered by EMS. [facility] Data reviewed: vital signs, nurses notes, lab test result(s), EKG, radiologic studies, plain films. Counseling: I had a detailed discussion with the patient and/or guardian regarding:. Counseling: I had a detailed discussion with the patient and/or guardian regarding: the historical points, exam findings, and any diagnostic results supporting the discharge/admit diagnosis, lab results, radiology results, the need for further work-up and treatment in the hospital. ED course: I discussed the patient with his [employer] Control Assistant Dr. Wills whom advises to admit the patient to hospitalist. I discussed the patient with Dr. Anders whom accepted admission. . 06/09 19:09 Order name: Basic Metabolic Panel; Complete Time: 21:17 [facility] 06/09 19:09 Order name: CBC with Diff; Complete Time: 20:07 [facility] 06/09 19:09 Order name: Ckmb; Complete Time: 21:17 [facility] 06/09 19:09 Order name: CPK; Complete Time: 21:17 [facility] 06/09 19:09 Order name: LFT's; Complete Time: 21:17 [facility] 06/09 19:09 Order name: Magnesium; Complete Time: 21: [facility] 08/16 19:09 Order name: NT PRO-BNP; Complete Time: 21:17 jmm 06/09 19:09 Order name: PT-INR; Complete Time: 20:41 jmm 06/09 19:09 Order name: Ptt, Activated; Complete Time: 20:41 jmm 06/09 19:09 Order name: Troponin (emerg Dept Use Only); Complete Time: 21:17 jmm 06/09 19:09 Order name: XRAY Chest (1 view); Complete Time: 19:56 jmm 06/09 22:06 Order name: Urine Dipstick--Ancillary (enter results); Complete Time: 12:54 ms 06/09 19:09 Order name: EKG; Complete Time: 19:10 jmm 06/09 19:09 Order name: Cardiac monitoring; Complete Time: 19:48 jmm 06/09 19:09 Order name: EKG - Nurse/Tech; Complete Time: 19:48 jmm 06/09 19:09 Order name: IV Saline Lock; Complete Time: 19:48 jmm 06/09 19:09 Order name: Labs collected and sent; Complete Time: 19:48 jmm 06/09 19:09 Order name: O2 Per Protocol; Complete Time: 19:48 jmm 06/09 19:09 Order name: O2 Sat Monitoring; Complete Time: 19:48 jmm 06/09 19:09 Order name: Urine Dipstick-Ancillary (obtain specimen); Complete Time: 23:25 jmm EC:32 Rate is 92 beats/min. Rhythm is regular. QRS [place] is Normal. OR interval is normal. QRS jmm interval is normal. QT interval is prolonged. No ST changes noted. Interpreted by me. Administered Medications: 19:51 Drug: morphine 4 mg Route: IVP; Site: right forearm; bs1 06/10 00:18 Follow up: Response: No adverse reaction bs1 06/09 19:51 Drug: Zofran 4 mg Route: IVP; Site: right forearm; bs1 06/10 00:18 Follow up: Response: No adverse reaction bs1 06/09 22:20 Drug: morphine 4 mg Route: IVP; Site: right forearm; bs1 06/10 00:18 Follow up: Response: No adverse reaction bs1 Disposition: 06/09/18 21:51 Hospitalization ordered by Qing Anders for Observation. Preliminary diagnosis is Other chest pain. - Bed requested for Telemetry/MedSurg (observation). - Status is Observation. bs1 - Condition is Stable. - Problem is new. - Symptoms have improved. UTI on Admission? No Addendum: 06/11/2018 16:01 Co-signature as Attending Physician, Taye Bowling MD. g s Signatures: Dispatcher [employer] EDMN Monika Rios RN RN Jj Saldaña PA PA jmm Barber, Rebecca, DIANA ORTIZ [facility] Taye Bowling MD MD Lita Melvin RN RN bs1 Corrections: (The following items were deleted from the chart) 06/09 21:56 21:51 Hospitalization Ordered by Qing Anders MD for Observation. Preliminary diagnosis is Other chest pain. Bed requested for Telemetry/MedSurg (observation). Status is Observation. Condition is Stable. Problem is new. Symptoms have improved. UTI on Admission? No. jmm 06/10 00:25 06/09 21:56 06/09/2018 21:51 Hospitalization Ordered by Qing Anders MD for bs1 Observation. Preliminary diagnosis is Other chest pain. Bed requested for Telemetry/MedSurg (observation). Status is Observation. Condition is Stable. Problem is new. Symptoms have improved. UTI on Admission? No.
[2018-06-09 22:08] LABS: Urine Blood NEGATIVE (NEG); Urine Glucose TRACE (NEG); Urine Protein NEGATIVE (NEG)
[2018-06-09] MEDS ORDERED: ACETAMINOPHEN 500 MG TAB PO PRN (23:39)
[2018-06-10] MEDS: MORPHINE 4 MG/ML SYR IV PRN ×2 (00:10→03:54)
[2018-06-10] MEDS ORDERED: MORPHINE 4 MG/ML SYR ONE (00:12)
[2018-06-10 01:00] VITALS: BMI 24.8
[2018-06-10] MEDS: ALPRAZOLAM 0.25 MG TABLET PO PRN ×2 (04:01→12:30)
[2018-06-10] MEDS ORDERED: HYDROCODONE/APAP 10/325 TAB PO PRN (05:13)
[2018-06-10] MEDS ORDERED: MORPHINE 4 MG/ML SYR IV PRN (05:14)
[2018-06-10] MEDS: KCL 20 MEQ/100 mL IVPB 20 MEQ/100 ML BAG IV SCH ×2 (07:00→08:14)
--- NOTE | 2018-06-10 07:03 | EKG ---
Test Date: 2018-06-09 Test Time: 19:32:49 User Experience Architect: CONNOR MEASUREMENT RESULTS: Intervals: Rate: 92 UT: 168 QRSD: 100 QT: 438 QTc: 541 [place]: P: 71 UT: 168 QRS: 66 T: 40 INTERPRETIVE STATEMENTS: Normal sinus rhythm Incomplete right bundle branch block Anteroseptal infarct, age undetermined Prolonged QT Abnormal ECG Compared to ECG 05/31/2018 09:46:38 Incomplete right bundle-branch block now present Prolonged QT interval now present T-wave abnormality no longer present Possible ischemia no longer present Intraventricular conduction delay no longer present Myocardial infarct finding still present Electronically Signed On 06-10-18 07:01:29 CDT by Ghulam Berrios
[2018-06-10] MEDS ORDERED: NA CHLORIDE 0.9% 250 ML ONE (08:16)
[2018-06-10] MEDS ORDERED: POTASSIUM 25 MEQ EFFERV TAB PO ONE (08:24)
[2018-06-10] MEDS ORDERED: ASPIRIN EC 81 MG TAB PO SCH (09:00)
[2018-06-10] MEDS ORDERED: METOPROLOL TAR 50 MG TAB PO SCH (09:00)
[2018-06-10] MEDS ORDERED: ENOXAPARIN 40 MG/0.4 ML SQ SCH (09:00)
[2018-06-10 09:20] VITALS: O2SAT 98
--- NOTE | 2018-06-10 11:56 | P.HP ---
Certification for Inpatient Patient admitted to: Observation With expected LOS: <2 Midnights Patient will require the following post-hospital care: None Practitioner: I am a practitioner with admitting privileges, knowledge of patient current condition, hospital course, and medical plan of care. Services: Services provided to patient in accordance with Admission requirements found in Title 42 Section 412.3 of the Code of Federal Regulations Patient History Date of Service: 06/09/18 Reason for admission: chest pain rule out acute coronary syndrome History of Present Illness: Patient is a 57-year-old gentleman who who came into the hospital with pain in his sternal region. He said pain radiated to his left arm to his neck. He has never had pain radiating to his neck and was worried. He has had recent cardiac catheterization which did not reveal any worsening of his coronary artery disease. He had 2 vessel bypass before. He states that he actually had a artery growing which was able to provide collaterals to his area that was not getting good perfusion however bypass was performed. Patient came to the hospital for further evaluation. Per patient has a history of coronary artery disease. Patient also has chronic pain issues. He has a spinal stimulator in place. He states that this does not work depending on whether not other electronic equipment is around. He does require pain medication even though he has the electrical stimulator. Patient is admitted though for his cardiac issues and concerns. He will be ruled out for acute coronary syndrome. Will follow up with his Cardiology if his workup is unremarkable. Allergies Penicillins Allergy (Intermediate, Verified 10/12/16 19:58) Hives/Rash codeine [From Tylenol-Codeine] Allergy (Verified 10/12/16 19:58) Itching Home Medications: Budesonide/Formoterol Fumarate [Symbicort 160-4.5 Mcg Inhaler] 2 puff IH BID 03/10 Aspirin 81 mg PO DAILY 11/21/17 Simvastatin 40 mg PO DAILY 11/21/17 Benzonatate [Tessalon Per[place]*] 200 mg PO TID PRN #20 cap 11/24/17 Mometasone/Formoterol [Dulera 100 Mcg/5 Mcg Inhaler] 2 puff IH BID #1 inhaler metroNIDAZOLE [Flagyl*] 500 mg PO Q8H #20 tablet 11/24/17 Amlodipine [Norvasc*] 10 mg PO BID 06/10/18 Carvedilol [Coreg*] 25 mg PO BID 6AM 6PM 06/10/18 Gabapentin [Neurontin*] 800 mg PO Q8HR 06/10/18 Lisinopril [Prinivil*] 40 mg PO BID 06/10/18 - Past Medical/Surgical History Has patient received pneumonia vaccine in the past: Yes Diabetic: No -: Chronic back pain, Pain management-Dr. Connolly -: HTN -: CAD, CABG times 2 vessels in December 2015 -: COPD -: Exposure to asbestosis -: Bipolar disorder -: Hyperlipidemia -: Severe sleep apnea -: Chronic pain syndrome -: Right Leg surgery -: Back surgery -: Cholecystectomy -: Cardiac catheterization -: CABG- Double bypass 12/2015 -: Neck Surgery Psychosocial/ Personal History: Single, Children-1, Work-Disabled due to back. - Family History Mother Medical History: Cancer Father Medical History: Heart disease, Cancer - Social History Smoking Status: Former smoker Alcohol use: No CD- Drugs: No Caffeine use: No Place of Residence: Home Review of Systems 10-point ROS is otherwise unremarkable Physical Examination - Vital Signs Temperature: 97.0 F Blood Pressure: 139/88 Pulse: 80 Respirations: 17 Pulse Ox (%): 97 - Physical Exam General: Alert, In no apparent distress, Oriented x3 HEENT: Atraumatic, PERRLA, Mucous membr. moist/pink, EOMI, Sclerae nonicteric Neck: Supple, 2+ carotid pulse no bruit, No LAD, Without JVD or thyroid abnormality Respiratory: Clear to auscultation bilaterally, Normal air movement Cardiovascular: Regular rate/rhythm, Normal S1 S2, No murmurs Gastrointestinal: Normal bowel sounds, Soft and benign, Non-distended, No tenderness Musculoskeletal: No clubbing, No swelling, No tenderness Integumentary: No rashes Neurological: Normal gait, Normal speech, Normal strength at 5/5 x4 extr, Normal tone, Sensation intact, Cranial nerves 3-12 intact, Normal affect Lymphatics: No axilla or inguinal lymphadenopathy - Studies Laboratory Data (last 24 hrs) 06/09/18 20:15: PT 11.5, INR 0.97, APTT 30.3 06/09/18 20:15: Sodium 142, Potassium 3.0 L, BUN 15, Creatinine 1.20, Glucose 94 , Magnesium 2.8 H, Total Bilirubin 0.4, AST 90 H, ALT 118 H, Alkaline Phosphatase 58 06/09/18 19:45: WBC 15.4 H D, Hgb 14.9, Hct 43.5, Plt Count 321 D Assessment & Plan - Problems (Diagnosis) (1) Chest pain Onset Date: 06/10/18 Current Visit: Yes Status: Acute (2) Acute coronary syndrome Onset Date: 11/07/15 Current Visit: No Status: Acute (3) COPD exacerbation Onset Date: 10/29/16 Current Visit: No Status: Acute (4) Chest pain Onset Date: 01/20/16 Current Visit: No Status: Acute Qualifiers: (5) Atrial fibrillation Onset Date: 10/13/16 Current Visit: No Status: Chronic Qualifiers: (6) CAD (coronary artery disease) Onset Date: 01/20/16 Current Visit: No Status: Chronic Qualifiers: (7) CHF (congestive heart failure) Onset Date: 01/20/16 Current Visit: No Status: Chronic Qualifiers: (8) COPD (chronic obstructive pulmonary disease) Onset Date: 01/20/16 Current Visit: No Status: Chronic Qualifiers: (9) Hyperlipidemia Onset Date: 10/13/16 Current Visit: No Status: Chronic Qualifiers: (10) Hypertension Onset Date: 11/07/15 Current Visit: No Status: Chronic Qualifiers: (11) BRIAN (obstructive sleep apnea) Onset Date: 10/13/16 Current Visit: No Status: Chronic (12) Tobacco abuse Onset Date: 12/03/14 Current Visit: No Status: Chronic - Plan 1. Serial troponins and EKG 2. Cardiology consultation 3. Echocardiogram and inpatient stress test(pending cardiology evaluation) 4. Anti-platelet therapy, anti coagulation, beta-jaime, statin, and O2 as needed 5. IV morphine for pain 6. Nitro p.r.n. Discharge Plan: Home Plan to discharge in: 24 Hours - Advance Directives Does patient have a Living Will: Yes Does patient have a Durable POA for Healthcare: Yes - Code Status/Comfort Care Code Status Assessed: Yes Code Status: Full Code Critical Care: No Time Spent Managing PTS Care (In Minutes): 50
[2018-06-10 14:09] VITALS: BP 148/87; TEMP 97.6
--- NOTE | 2018-06-10 16:30 | P.PN ---
Subjective Date of Service: 06/10/18 Chief Complaint: chest pain rule out acute coronary syndrome Pt seen and examined at bedside. Chart Reviewed. Case DW with Cardiology -No c/o overnight -Today no c/o -Awaiting ECHO at this time Review of Systems 10-point ROS is otherwise unremarkable General: As per HPI Physical Examination - Vital Signs Temperature: 97.6 F Blood Pressure: 148/87 Pulse: 76 Respirations: 17 Pulse Ox (%): 96 - Physical Exam General: Alert, In no apparent distress HEENT: Atraumatic, PERRLA, EOMI Neck: Supple, JVD not distended Respiratory: Clear to auscultation bilaterally, Normal air movement Cardiovascular: Regular rate/rhythm, Normal S1 S2 Gastrointestinal: Normal bowel sounds, No tenderness Musculoskeletal: No tenderness Integumentary: No rashes Neurological: Normal speech, Normal tone, Normal affect Lymphatics: No axilla or inguinal lymphadenopathy - Studies Laboratory Data (last 24 hrs) 06/09/18 20:15: PT 11.5, INR 0.97, APTT 30.3 06/09/18 20:15: Sodium 142, Potassium 3.0 L, BUN 15, Creatinine 1.20, Glucose 94 , Magnesium 2.8 H, Total Bilirubin 0.4, AST 90 H, ALT 118 H, Alkaline Phosphatase 58 06/09/18 19:45: WBC 15.4 H D, Hgb 14.9, Hct 43.5, Plt Count 321 D Medications List Reviewed: Yes Assessment & Plan - Problems (Diagnosis) (1) Chest pain Onset Date: 06/10/18 Current Visit: Yes Status: Acute Plan: Atypical Chest Pain -Pt was recently admitted at [facility]. -Workup was negative -Pt has history of noncompliance -Cardiology consulted. Awaiting Reccs -ECHO pending -ACS medication Qualifiers: Chest pain type: unspecified Qualified Code(s): R07.9 - Chest pain, unspecified (2) Atrial fibrillation Onset Date: 10/13/16 Current Visit: No Status: Chronic Qualifiers: Atrial fibrillation type: chronic Qualified Code(s): I48.2 - Chronic atrial fibrillation (3) Bipolar 1 disorder Onset Date: 10/13/16 Current Visit: No Status: Chronic (4) CAD (coronary artery disease) Onset Date: 01/20/16 Current Visit: No Status: Chronic Qualifiers: Coronary Disease-Associated Artery/Lesion type: [place] artery [place] vs. transplanted heart: [place] heart Associated angina: with stable angina Qualified Code(s): I25.118 - Atherosclerotic heart disease of [place] coronary artery with other forms of angina pectoris (5) CHF (congestive heart failure) Onset Date: 01/20/16 Current Visit: No Status: Chronic Qualifiers: Heart failure type: unspecified (6) COPD (chronic obstructive pulmonary disease) Onset Date: 01/20/16 Current Visit: No Status: Chronic Qualifiers: COPD type: chronic bronchitis Chronic bronchitis type: unspecified Qualified Code(s): J42 - Unspecified chronic bronchitis (7) Hyperlipidemia Onset Date: 10/13/16 Current Visit: No Status: Chronic Qualifiers: Hyperlipidemia type: mixed hyperlipidemia Qualified Code(s): E78.2 - Mixed hyperlipidemia (8) Hypertension Onset Date: 11/07/15 Current Visit: No Status: Chronic Qualifiers: Hypertension type: essential hypertension (9) BRIAN (obstructive sleep apnea) Onset Date: 10/13/16 Current Visit: No Status: Chronic (10) Tobacco abuse Onset Date: 12/03/14 Current Visit: No Status: Chronic Discharge Plan: Home Plan to discharge in: 24 Hours - Code Status/Comfort Care Code Status Assessed: Yes Critical Care: No
[2018-06-10] MEDS ORDERED: GABAPENTIN 400 MG CAP PO SCH (17:00)
--- NOTE | 2018-06-10 17:14 | EKG ---
Test Date: 2018-06-10 Test Time: 10:03:29 Director Of Payroll: ANNA MEASUREMENT RESULTS: Intervals: Rate: 74 AK: 176 QRSD: 96 QT: 400 QTc: 444 [place]: P: 61 AK: 176 QRS: 61 T: 246 INTERPRETIVE STATEMENTS: Normal sinus rhythm Septal infarct, age undetermined ST & T wave abnormality, consider inferior ischemia ST & T wave abnormality, consider anterolateral ischemia Abnormal ECG Compared to ECG 06/09/2018 19:32:49 ST (T wave) deviation now present Possible ischemia now present Incomplete right bundle-branch block no longer present Prolonged QT interval no longer present Myocardial infarct finding still present Electronically Signed On 06-10-18 17:11:04 CDT by Ghulam Berrios
[2018-06-10] MEDS ORDERED: CARVEDILOL 25 MG TAB PO SCH (18:00)
[2018-06-10] MEDS ORDERED: ATORVASTATIN 20 MG TAB PO SCH (21:00)
[2018-06-10] MEDS ORDERED: LISINOPRIL 20 MG TAB PO SCH (21:00)
[2018-06-11] MEDS ORDERED: ASPIRIN 81 MG CHEWABLE TABLET PO SCH (09:00)
--- NOTE | 2018-06-11 16:42 | P.SSS ---
Patient History Date of Service: 06/11/18 Reason for admission: chest pain rule out acute coronary syndrome History of Present Illness: Patient is a 57-year-old gentleman who who came into the hospital with pain in his sternal region. He said pain radiated to his left arm to his neck. He has never had pain radiating to his neck and was worried. He has had recent cardiac catheterization which did not reveal any worsening of his coronary artery disease. He had 2 vessel bypass before. He states that he actually had a artery growing which was able to provide collaterals to his area that was not getting good perfusion however bypass was performed. Patient came to the hospital for further evaluation. Per patient has a history of coronary artery disease. Patient also has chronic pain issues. He has a spinal stimulator in place. He states that this does not work depending on whether not other electronic equipment is around. He does require pain medication even though he has the electrical stimulator. Patient is admitted though for his cardiac issues and concerns. He will be ruled out for acute coronary syndrome. Will follow up with his Cardiology if his workup is unremarkable. Allergies Penicillins Allergy (Intermediate, Verified 10/12/16 19:58) Hives/Rash codeine [From Tylenol-Codeine] Allergy (Verified 10/12/16 19:58) Itching Home Medications: Aspirin 81 mg PO DAILY 11/21/17 Amitriptyline [Elavil] 50 mg PO BEDTIME PRN 06/10/18 Amlodipine [Norvasc*] 10 mg PO BID 06/10/18 Carvedilol [Coreg*] 25 mg PO BID 6AM 6PM 06/10/18 Gabapentin [Neurontin*] 800 mg PO Q8HR 06/10/18 Hydrocodone 10/APAP 325 [[place] 10/325] 1 tab PO Q8H PRN 06/10/18 Lisinopril [Prinivil*] 40 mg PO BID 06/10/18 [place] Carbonate [Lithotabs 300MG] 600 mg PO BEDTIME 06/10/18 - Past Medical/Surgical History Has patient received pneumonia vaccine in the past: Yes Diabetic: No -: Chronic back pain, Pain management-Dr. Connolly -: HTN -: CAD, CABG times 2 vessels in December 2015 -: COPD -: Exposure to asbestosis -: Bipolar disorder -: Hyperlipidemia -: Severe sleep apnea -: Chronic pain syndrome -: Right Leg surgery -: Back surgery -: Cholecystectomy -: Cardiac catheterization -: CABG- Double bypass 12/2015 -: Neck Surgery Psychosocial/ Personal History: Single, Children-1, Work-Disabled due to back. - Family History Mother -: Cancer Father -: Heart disease, Cancer - Social History Smoking Status: Former smoker Alcohol use: No CD- Drugs: No Caffeine use: No Place of Residence: Home Review of Systems General: As per HPI Physical Examination - Vital Signs Temperature: 97.6 F Blood Pressure: 148/87 Pulse: 76 Respirations: 17 Pulse Ox (%): 96 - Physical Exam General: Alert, In no apparent distress HEENT: Atraumatic, PERRLA, Mucous membr. moist/pink, EOMI, Sclerae nonicteric Neck: Supple, 2+ carotid pulse no bruit, No LAD, Without JVD or thyroid abnormality Respiratory: Clear to auscultation bilaterally, Normal air movement Cardiovascular: Regular rate/rhythm, Normal S1 S2 Gastrointestinal: Normal bowel sounds, No tenderness Musculoskeletal: No tenderness Integumentary: No rashes Neurological: Normal gait, Normal speech, Normal strength at 5/5 x4 extr, Normal tone, Normal affect Lymphatics: No axilla or inguinal lymphadenopathy - Diagnosis (Problem(s)) (1) Chest pain Onset Date: 06/10/18 Status: Acute Plan: Atypical Chest Pain -Pt was recently admitted at [facility]. -Workup was negative -Pt has history of noncompliance -Cardiology consulted. -ECHO pending -ACS medication -Pt left AMA without being seen by Cardiology. Qualifiers: Chest pain type: unspecified Qualified Code(s): R07.9 - Chest pain, unspecified (2) Atrial fibrillation Onset Date: 10/13/16 Status: Chronic Qualifiers: Atrial fibrillation type: chronic Qualified Code(s): I48.2 - Chronic atrial fibrillation (3) Bipolar 1 disorder Onset Date: 10/13/16 Status: Chronic (4) CAD (coronary artery disease) Onset Date: 01/20/16 Status: Chronic Qualifiers: Coronary Disease-Associated Artery/Lesion type: [place] artery [place] vs. transplanted heart: [place] heart Associated angina: with stable angina Qualified Code(s): I25.118 - Atherosclerotic heart disease of [place] coronary artery with other forms of angina pectoris (5) CHF (congestive heart failure) Onset Date: 01/20/16 Status: Chronic Qualifiers: Heart failure type: unspecified (6) COPD (chronic obstructive pulmonary disease) Onset Date: 01/20/16 Status: Chronic Qualifiers: COPD type: chronic bronchitis Chronic bronchitis type: unspecified Qualified Code(s): J42 - Unspecified chronic bronchitis (7) Hyperlipidemia Onset Date: 10/13/16 Status: Chronic Qualifiers: Hyperlipidemia type: mixed hyperlipidemia Qualified Code(s): E78.2 - Mixed hyperlipidemia (8) Hypertension Onset Date: 11/07/15 Status: Chronic Qualifiers: Hypertension type: essential hypertension (9) BRIAN (obstructive sleep apnea) Onset Date: 10/13/16 Status: Chronic (10) Tobacco abuse Onset Date: 12/03/14 Status: Chronic - Disposition Disposition: AMA-LEFT AGAINST MEDICAL ADVIC
--- NOTE | 2018-06-13 08:16 | ECHO ---
HEIGHT: 5 ft 9 in WEIGHT: 168 lb 4 oz DATE OF STUDY: 06/10/[address]: 2-DIMENSIONAL: YES M.MODE: YES DOPPLER: YES COLOR FLOW: YES TDS: NO PORTABLE: NO DEFINITY: NO BUBBLE STUDY: NO DIAGNOSIS: CHEST PAIN CARDIAC HISTORY: CATHERIZATION: YES SURGERY: CABG PROSTHETIC VALVE: NO PACEMAKER: NO MEASUREMENTS (cm) DIASTOLIC (NORMALS) SYSTOLIC (NORMALS) IVSd 1.3 (0.6-1.2) LA Diam 3.7 (1.9-4.0) LVEF 73% LVIDd 4.2 (3.5-5.7) LVIDs 2.41 (2.0-3.5) %FS 42% LVPWd 1.5 (0.6-1.2) Ao Diam 3.1 (2.0-3.7) 2 DIMENSIONAL ASSESSMENT: RIGHT ATRIUM: NORMAL LEFT ATRIUM: NORMAL RIGHT VENTRICLE: NORMAL LEFT VENTRICLE: NORMAL TRICUSPID VALVE: NORMAL MITRAL VALVE: NORMAL PULMONIC VALVE: NORMAL AORTIC VALVE: NORMAL PERICARDIAL EFFUSION: NONE AORTIC ROOT: NORMAL LEFT VENTRICULAR WALL MOTION: NORMAL. DOPPLER/COLOR FLOW: MILD TRICUSPID REGURGITATION. COMMENTS: MILD TRICUSPID REGURGITATION. NORMAL LEFT VENTRICULAR SIZE AND FUNCTION. NO EFFUSION. NO WALL MOTION ABNORMALITY. TECHNOLOGIST: PAIGE CINTRON
== END 2018-06-10 17:27 | disposition left against medical advice (07) ==
LOC: ER 18:34 → ERHOLD 22:05 → 2ND 06-10 00:17
PROVIDERS: ADMIT Hospitalist; ATTEND Family Medicine
DX: R07.89 Other chest pain (principal); I25.10 Atherosclerotic heart disease of native coronary artery without angina pectoris; G89.29 Other chronic pain; J44.9 Chronic obstructive pulmonary disease, unspecified; E78.5 Hyperlipidemia, unspecified; F31.9 Bipolar disorder, unspecified; G47.33 Obstructive sleep apnea (adult) (pediatric); I48.91 Unspecified atrial fibrillation; I10 Essential (primary) hypertension; Z87.891 Personal history of nicotine dependence; Z95.1 Presence of aortocoronary bypass graft; Z88.0 Allergy status to penicillin
CPT/HCPCS: 36415; 71045; 80048; 80061; 80076; 81003; 82550; 82553; 82962 ×4; 83735; 83880; 84484 ×3; 85025; 85610; 85730; 93005 ×2; 93306; G0378 ×2; J1650; J2405; 96374; 96375; 99285

== ENCOUNTER 2018-07-21 16:29 | Observation (INO) | payer OTHER ==
--- OUTSIDE RECORDS SUMMARY | 2018-07-21 16:31 | XMS REPORT | Clinical Summary ---
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 (HCC) Multi-vessel coronary artery stenosis 01/23/2016 05/09/2018 Flash pulmonary edema (HCC) 01/23/2016 05/09/2018 Chronic total occlusion of coronary artery 01/23/2016 05/09/2018 Acute postoperative respiratory insufficiency 01/23/2016 05/09/2018 Postoperative anemia due to acute blood loss 01/23/2016 05/09/2018 Acute post-operative pain 01/23/2016 05/09/2018 Encounters Date Type Specialty Care Team Description 06/13/2018 Procedure Pass Gastroenterology 06/10/2018 Anesthesia Event Gastroenterology Mario Hsieh MD 05/08/2018 [facility] Jaqui Turner Acute - Encounter MD Divina post-operative 05/12/2018 Sandhya, pain;Coronary Mrinalhang Ricks, artery disease MD involving [place] Trina Moody coronary artery of MD [place] heart with Sebastian Gonzalez angina pectoris ([facility]);Acute kidney injury (HCC);Diarrhea, unspecified type;Hepatitis C virus infection without hepatic coma, unspecified chronicity;Hyperte nsive emergency;Paroxysm al atrial fibrillation (HCC);Vasovagal syncope;Transamini tis 05/08/2018 Procedure Pass 05/08/2018 Surgery Trina Moody L CATH & CORONARY MD ANGIOS 05/08/2018 Orders Only General Internal Medicine after 07/20/2017 Social History Tobacco Use Types Packs/Day Years [...] 05/12/2018 8:22 AM CDT Plan of Treatment Not on file Procedures Procedure Name Priority Date/Time Associated Diagnosis Comments L CATH & CORONARY 05/08/2018 7:05 PM Coronary artery disease ANGIOS CDT involving [place] heart without angina pectoris, unspecified vessel or lesion type after 07/20/2017 Results EKG-SCANNED (05/13/2018 12:30 PM)RHYTHM STRIP - SCAN (05/13/2018 12:30 PM)POC- Glucose meter (05/12/2018 11:57 AM)Only the most recent of2 resultswithin the time period is included. Component Value Ref Range POC-Glucose Meter 169 (H)Comment: TESTED AT [address] 70 - 110 mg/[place] [address] Specimen Performing Laboratory Blood [address] [address] ECHOCARDIOGRAM REPORT - SCAN (05/12/2018 8:22 AM)CBC [...] % Specimen Performing Laboratory Blood - Arm, Right [address] [address] Hepatitis C antibody (05/12/2018 4:15 AM) Component Value Ref Range Hepatitis C Ab Reactive (A) Nonreactive Specimen Performing Laboratory Blood - Arm, [address] [address] Hepatitis B core antibody, IgM (05/12/2018 4:15 AM) Component Value Ref Range Hep B C IgM Nonreactive Nonreactive Specimen Performing Laboratory Blood - Arm, [address] [address] Hepatitis B core antibody, total (05/12/2018 4:15 AM) Component Value Ref Range Hep B Core Total Ab Reactive (A) Nonreactive Specimen Performing Laboratory Blood - Arm, [address] [address] Hepatitis B surface antibody (05/12/2018 4:15 AM) Component Value Ref Range Hep B S Ab <8.0 <8.0 mIU/mL Specimen Performing Laboratory Blood - Arm, [address] [address] Hepatitis B surface antigen (05/12/2018 4:15 AM) Component Value Ref Range hepatitis B Surface Ag Nonreactive Nonreactive Specimen Performing Laboratory Blood - Arm, [address] [address] CBC with platelet count + automated diff (05/12/2018 4:15 AM)Only the most recent of4 resultswithin the time period is included. Specimen Performing Laboratory Blood Narrative The following orders were created for panel order CBC with platelet count + automated diff. Procedure Abnormality Status --------- ------ CBC with platelet count ...[[id number]]AbnormalFinal result Please view results for these tests [...] U/L Specimen Performing Laboratory Blood - Arm, Right [address] [address] Basic metabolic panel (05/12/2018 4:15 AM)Only the [...] PATIENTS. Specimen Performing Laboratory Blood - Arm, Right [address] [address] 2D Echo W/Doppler(CW/PW/Color) (05/11/2018 9:07 AM) Component Value Ref Range Ejection Fraction Specimen Performing Laboratory [facility] ECHO HEARTLAB [facility] Narrative Transthoracic Echocardiography Report (TTE) Demographics Patient Name Carmen MACIAS of Study 05/11/2018 [place] [id number] GenderMale Visit Number [id number] Race Unknown [id number] Number [id number] Number Date of Birth1960 Referring Physician JOEY CASILLAS Age57 year(s) Dietetic Technician Registered Linda Combs,Interpreting Key Shaw [facility] Physician Procedure Type of Study TTE procedure:2DECHO [...] Study 05/11/2018 [place] Gender Male Visit Number [id number] Race Unknown Room Number [id number] Number Date of 1960 Referring Physician JOEY CASILLAS Age 57 year(s) Dietetic Technician Registered Linda Herrera Coal Drier Operator Melba Combs, Interpreting Key Shaw [facility] Physician Procedure Type of Study TTE procedure:2DECHO [...] limited (05/11/2018 8:39 AM) Specimen Performing Laboratory [place] FINAL REPORT INDICATION: 57-year-old inpatient male with [...] MD Report Verified Date/Time:05/11/2018 16:15:41 Reading Location: [address] Ultrasound Reading Room Procedure Note Interface, [...] Report Verified Date/Time: 05/11/2018 16:15:41 Reading Location: [address] Ultrasound Reading Room Renal with Doppler (05/11/2018 8:39 AM) Specimen Performing Laboratory [facility] Narrative FINAL REPORT INDICATION: 57-year-old inpatient [...] MD Report Verified Date/Time:05/11/2018 16:28:02 Reading Location: [address] Ultrasound Reading Room Procedure Note Interface, [...] Report Verified Date/Time: 05/11/2018 16:28:02 Reading Location: [address] Ultrasound Reading Room Calcium, Ionized (05/11/2018 3:30 AM)Only the most recent of2 resultswithin the time period is included. Component Value Ref Range Calcium, Ion 1.16 1.12 - 1.27 mmol/L pH, Blood 7.40 Specimen Performing Laboratory Blood - Arm, [address] [address] Phosphorus (05/11/2018 3:30 AM)Only the most recent of2 resultswithin the time period is included. Component Value Ref Range Phosphorus 3.5 2.3 - 4.7 mg/dL Specimen Performing Laboratory Blood - Arm, [address] [address] Magnesium (05/11/2018 3:30 AM)Only the most recent of2 resultswithin the time period is included. Component Value Ref Range Magnesium 2.4 1.6 - 2.6 mg/dL Specimen Performing Laboratory Blood - Arm, [address] [address] Comprehensive metabolic panel (05/11/2018 3:30 AM)Only the [...] PATIENTS. Specimen Performing Laboratory Blood - Arm, [address] [address] CTA chest, abdomen & pelvis - for dissection (05/10/2018 6:41 PM) Specimen Performing Laboratory [facility] Narrative Addendum Begins REPORT STATUS:A Addendum: I agree with the previously described non vascular findings. Signed: Antionette Hinojosa MD Report Verified Date/Time:05/11/2018 14:11:09 Reading Location: [place] [address] Angio Body Reading Room Addendum Ends FINAL [...] coronary artery calcification is seen in the [place] coronary territories. Patient is post coronary artery [...] thoracic aorta. In the abdominal aorta, circumferential etwj-iz-tbdxgldu calcific atherosclerosis is seen. Overall, no ectasia [...] 4.An addendum will be dictated by the Director Wholesale Radiologist regarding the nonvascular findings. Signed: Magno Augustin MD Report Verified Date/Time:05/10/2018 18:58:16 Reading Location: [place] [address] Cardiology MRI Procedure Note Interface, External Ris In - 05/11/2018 2:13 PM CDT Addendum Begins REPORT STATUS:A Addendum: I agree with the previously described non vascular findings. Signed: Antionette Hinojosa MD Report Verified Date/Time: 05/11/2018 14:11:09 Reading Location: [facility] P048 Angio Body Reading Room Addendum Ends FINAL [...] coronary artery calcification is seen in the [place] coronary territories. Patient is post coronary artery [...] thoracic aorta. In the abdominal aorta, circumferential ttnu-lj-eaqisdod calcific atherosclerosis is seen. Overall, no ectasia [...] An addendum will be dictated by the Director Wholesale Radiologist regarding the nonvascular findings. Signed: Magno Augustin MD Report Verified Date/Time: 05/10/2018 18:58:16 Reading Location: [place] [address] Cardiology MRI IAC CATH REPORT - SCAN (05/10/2018 5:43 PM)US renal complete (05/10/2018 11 :15 AM) Specimen Performing Laboratory [facility] Narrative FINAL REPORT TECHNIQUE: Grayscale ultrasound of [...] MD Report Verified Date/Time:05/10/2018 13:00:32 Reading Location: [place] [id number] Ultrasound Reading Room Procedure Note Interface, External [...] Report Verified Date/Time: 05/10/2018 13:00:32 Reading Location: [facility] P006 Ultrasound Reading Room B-type Natriuretic Factor (BNP) (05/10/2018 5:11 AM)Only the most recent of2 resultswithin the time period is included. Component Value Ref Range BNP 153 (H) 0 - 100 pg/mL Specimen Performing Laboratory Blood - Line, Venous [address] [address] Urinalysis w/Microscopic (05/09/2018 10:02 PM) Component Value Ref Range Color, UA Yellow Clarity, UA Clear Specific Carney, UA 1.025 1.001 - 1.035 pH, UA [...] /HPF Specimen Source Specimen Performing Laboratory Urine [address] [address] Sodium, random urine (05/09/2018 9:38 PM) Component Value Ref Range Sodium Urine <20 meq/L Specimen Performing Laboratory Urine [address] [address] Narrative Reference Range: No Normals Protein, random urine (05/09/2018 9:38 PM) Component Value Ref Range Protein, Urine 15 (H) 0 - 14 mg/dL Specimen Performing Laboratory Urine [address] [address] Creatinine, random urine (05/09/2018 9:38 PM) Component Value Ref Range Creatinine, Ur 173.4 mg/dL Specimen Performing Laboratory Urine [address] [address] Narrative Reference Range: No Normals Eosinophil smear (05/09/2018 9:22 PM) Component Value Ref Range Eosinophil Smear No EOS seen No EOS seen Specimen Performing Laboratory Urine [address] [address] TRANSFUSION SERVICE REPORT - SCAN (05/09/2018 5:50 PM)NM lung scan (V/Q) (05/09 11:47 AM) Specimen Performing Laboratory [facility] Narrative FINAL REPORT PROCEDURE: V/Q LUNG SCAN CPT CODE: 30270 INDICATION: Acute chest pain, PE suspected, dyspnea, [...] MD Report Verified Date/Time:05/09/2018 12:03:05 Reading Location: [address] [employer] Reading Room Procedure Note Interface, External Ris In - 05/09/2018 12:05 PM CDT FINAL REPORT PROCEDURE: V/Q LUNG SCAN CPT CODE: 79043 INDICATION: Acute chest pain, PE suspected, dyspnea, [...] Report Verified Date/Time: 05/09/2018 12:03:05 Reading Location: [address] [employer] Reading Room foot 2 views left (05/09/2018 10:47 AM) Specimen Performing Laboratory [facility] Narrative FINAL REPORT Two views left foot Discussion: There is hallux valgus with degenerative changes. No visible acute fracture, dislocation, destructive lesion. Soft tissues are unremarkable. Signed: Darren Ariza MD Report Verified Date/Time:05/09/2018 13:59:01 Reading Location: [place] [id number] Consult Reading Room Procedure Note Interface, External Ris In - 05/09/2018 2:01 PM CDT FINAL REPORT Two views left foot Discussion: There is hallux valgus with degenerative changes. No visible acute fracture, dislocation, destructive lesion. Soft tissues are unremarkable. Signed: Darren Ariza MD Report Verified Date/Time: 05/09/2018 13:59:01 Reading Location: [facility] [id number] Consult Reading Room esoph swallow funct with [...] MD Report Verified Date/Time:05/09/2018 11:00:37 Reading Location: [facility] [id number] Ortho Consult Reading Room Procedure [...] Report Verified Date/Time: 05/09/2018 11:00:37 Reading Location: [facility] [id number] Ortho Consult Reading Room Venous doppler legs bilateral (05/09/2018 9:20 AM) Component Value Ref Range Ejection Fraction Specimen Performing Laboratory [facility] ECHO HEARTLAB JOCELYN CPACS Impressions Right Impression 1. There is [...] Date of Study 05/09/2018 Age 57 Visit [id number] Gender Male Date of 12/20 Number Referring [facility]idy [facility] Number [id number] Physician Dietetic Technician Registered Elsi Arvizu InterpretingJ. Wilver Gaffney RN, RVTProyer HAYES, RPCHOLO Procedure Type of Study: Veins: Lower Extremities [...] of Study 05/09/2018 Age 57 Visit Number [id number] Gender Male Date of 1960 Number Referring Heidy Vargas Room Number [id number] Physician Dietetic Technician Registered Elsi Arvizu Interpreting Annie Gaffney RN, RVT Physician , RPVI Procedure Type of Study: Veins: Lower Extremities [...] Ref Range Ejection Fraction Specimen Performing Laboratory [facility] ECHO HEART[facility] Impressions Right Impression 1. There is <50% [...] Date of Study 05/09/2018 Age 57 Visit [id number] Gender Male Date of 12/20 Number [facility] [place] Number [id number] Physician SAJANSEE Dietetic Technician Registered Elsi Arvizu InterpretingJ. Wilver Gaffney RN, Steve HAYES, RPVI Procedure [...] of Study 05/09/2018 Age 57 Visit Number [id number] Gender Male Date of 1960 Number Referring LEYDI SHANKS Room Number [id number] Physician OBED Dietetic Technician Registered Elsi Arvizu Interpreting Annie Gaffney RN, T Physician , RPVI Procedure Type of Study: Cerebral: Carotid, [...] left side. - Additional Measurements:ICAPSV/CCAPSV 1.06.ICAEDV/CCAEDV 1.83. Halley level (05/09/2018 7:54 AM) Component Value Ref Range Halley Level 0.4 (L) 0.8 - 1.2 mmol/L Specimen Performing Laboratory Blood - Arm, [address] [address] Lipid panel (05/09/2018 7:54 AM) Component Value Ref Range Triglycerides 161Comment: Specimen slightly hemolyzed mg/dL Cholesterol 111Comment: Specimen slightly hemolyzed mg/dL HDL 39 mg/dL LDL Calculated 40 mg/dL Specimen Performing Laboratory Blood - Arm, [address] [address] Narrative Triglyceride Reference Range: Low Risk <150 [id number] High Risk 200-499 Very High Risk>=500 Cholesterol Reference Range: Low Risk <200 Mbrmjlcrsu706-647 High Risk>240 HDL Cholesterol Reference Range: Low Risk >=60 High Risk <40 LDL Cholesterol Reference Range: Optimal<100 Near Ftnlbcc015-315 Vgqfyhwaxo849-733 Rtdq793-864 Very High >=190 Rapid drug screen, urine (05/09/2018 6:32 AM) Component Value Ref Range Barbiturate Screen Negative Negative Benzodiazepine Screen Positive (A) Negative Cocaine (Metab.) Screen Negative Negative Methadone Screen Negative Negative Opiate Screen Positive (A) Negative Cannabinoid Screen Negative Negative Amph/Methamph Screen Negative Negative Phencyclidine Screen Negative Negative Oxycodone Screen Negative Negative Specimen Performing Laboratory Urine [address] [address] Narrative DRUGCUTOFF CONC. Cocaine 300 ng/mL Kszwkwvopmj18 ng/mL Enyvuuexhdguvz406 ng/mL Barbiturate 200 ng/mL Gxurnhdqdpbyl20 ng/mL Hhkcur367 ng/mL Methadone 300 ng/mL Amphetamine/ 1000 ng/mL Methamphetamine Oxycodone 300 ng/mL This assay provides an unconfirmed qualitative test result for the clinical management of patients in emergency situations. Chain of custody not maintained. Some bdeq-wsl-ourvmkz medications, as well as adulterants, may cause inaccurate results. Clinical correlation should be applied. A more comprehensive drug screen or confirmation of a detected drug may be performed upon request. Hemoglobin A1c (05/09/2018 6:30 AM) Component Value Ref Range Hemoglobin A1C 6.3 (H) 4.3 - 6.1 % Specimen Performing Laboratory Blood - Arm, [address] [address] Troponin I (05/09/2018 3:53 AM)Only the most recent of2 resultswithin the time period is included. Component Value Ref Range Troponin I 0.04 (H) 0.00 - 0.03 ng/mL Specimen Performing Laboratory Blood - Arm, [address] [address] Narrative Troponin I (TnI) levels must be [...] WBC Specimen Performing Laboratory Blood - Arm, Right [facility] [address] [place] [address] Creatine Kinase (CK), Total and MB (05/09/2018 3:53 AM)Only the most recent of2 resultswithin the time period is included. Component Value Ref Range Total CK 161 29 - 200 U/L CK-MB 4.9 0.0 - 6.6 ng/mL MB Relative Index 3.0 % Specimen Performing Laboratory Blood - Arm, Right [facility] [address] [place] [address] Narrative CK-MB Reference Range: <6.7Normal 6.7-10.0Borderline >10.[address] brain without IV contrast (05/08/2018 8:55 PM) Specimen Performing Laboratory [facility] Narrative FINAL REPORT CT, BRAIN, WITHOUT CONTRAST [...] MD Report Verified Date/Time:05/08/2018 21:00:20 Reading Location: [address] Reading Room Procedure Note Interface, External [...] secondary CT evidence of chronicity. Signed: JR Nida, Emelyn HAYES Report Verified Date/Time: 05/08/2018 21:00:20 Reading Location: [address] Reading Room Type and screen, automated ([facility] Lab) (05/08/2018 5:54 PM) Component Value Ref Range ABO/RH AUTOMATED (BEAKER) B POSITIVE Ab Scrn NEGATIVE Specimen Performing Laboratory Blood [address] [address] aPTT (05/08/2018 5:54 PM) Component Value Ref Range PTT 30.0 22.5 - 36.0 seconds Specimen Performing Laboratory Blood [address] [address] Narrative Prior to initiating heparin ECG 12 lead (05/08/2018 5:11 PM) Specimen Performing Laboratory [facility] Narrative Ventricular Rate 81 BPM Atrial Rate 81 BPM P-R Interval 170 ms QRS Duration 106 ms Q-T Interval 464 ms QTC Calculation(Bazett) 539 ms P [place] 59 degrees R [place] 42 degrees T [place] 90 degrees Normal sinus rhythm Interatrial conduction [...] leads placement Confirmed by MD JAIMEE, SHELIA ([id number]) on 05/09/2018 5:06:47 AM Procedure Note Interface, External Ris In - 05/09/2018 5:07 AM CDT Ventricular Rate 81 BPM Atrial Rate 81 BPM P-R Interval 170 ms QRS Duration 106 ms Q-T Interval 464 ms QTC Calculation(Bazett) 539 ms P [place] 59 degrees R [place] 42 degrees T [place] 90 degrees Normal sinus rhythm Interatrial conduction [...] leads placement Confirmed by MD JAIMEE, SHELIA ([id number]) on 05/09/2018 5:06:47 AM after 07/20/2017
--- OUTSIDE RECORDS SUMMARY | 2018-07-21 16:32 | XMS REPORT ---
:1960 Author Organization [employer] Care Team Providers Name Role Phone Heard, Na Provider Role Unavailable Allergies, Adverse Reactions, Alerts Substance Reaction Event Type penicillin rash Drug Allergy Problems Problem Type Condition Code Onset Dates Condition Status Assessment Hyperlipidemia E78.5 Active Assessment HTN (hypertension) I10 Active Assessment History of coronary artery disease Z86.79 Active Assessment Hypertensive emergency I16.1 Active Problem Abdominal pain R10.9 Active Assessment Chest pain, unspecified type R07.9 Active Problem Left foot pain M79.672 Active Problem Atrial fibrillation, unspecified I48.91 Active type Problem Hypertensive emergency I16.1 Active Problem Closed displaced fracture of first S92.312S Active metatarsal bone of left foot, sequela Problem Constipation, unspecified K59.00 Active constipation type Problem Dementia without behavioral F03.90 Active disturbance, unspecified dementia type Problem Pulmonary emphysema, unspecified J43.9 Active emphysema type Problem Follow-up exam Z09 Active Problem Lumbar degenerative disc disease M51.36 Active Problem Chronic depressive person F34.1 Active Problem Chest pain, unspecified type R07.9 Active Problem History of coronary artery disease Z86.79 Active Problem Cigarette nicotine dependence F17.210 Active without complication Problem Elevated blood pressure reading R03.0 Active Problem Pure hypercholesterolemia E78.00 Active Problem Primary insomnia F51.01 Active Problem Acute myocardial infarction, I21.4 Active subendocardial infarction Problem Arteriosclerotic cardiovascular I25.10 Active disease (ASCVD) Problem Essential hypertension I10 Active Problem HTN (hypertension) I10 Active Problem Chronic generalized pain R52 Active Problem Hyperlipidemia E78.5 Active Medications Medication Code Code Instructions Start End Status Dosage System Date Date Amiodarone HCl [facility] 31492697206 200 MG Orally Active 1 tablet Once a day Amitriptyline HCl ND 94375634406 50 MG Orally February 28, Active 1 tablet Once a day 2017 Lisinopril ND 52877942494 40 MG Orally Active 1 tablet Once a day Coreg [facility] 59553105076 12.5 MG Orally Active 2 tabs bid Memantine HCl [facility] 44083942100 10 MG Orally Active 1 tablet Twice a day Roberta [facility] [place] 34874029464 10-325 MG Active 1 tablet Orally every 6 as needed hrs Clonidine HCl [facility] 65695488066 0.1 MG Orally April 20, Active 2 tablet twice 2017 twice x 1 week then 1 tablet twice a day for 1 week. Linzess [facility] 19694373510 145 MCG Orally April 20Jun Active 1 capsule Once a day 2017 Lipitor [facility] [place] 09892279025 40 MG Orally Active 1 tablet Once a day Dulera [facility] [place] 82682440779 100-5 MCG/ACT Active 2 puffs Inhalation Twice a day Results No Known Results Summary Purpose [employer] Submission
--- OUTSIDE RECORDS SUMMARY | 2018-07-21 16:32 | XMS REPORT ---
:1960 Author Organization [facility] Address [address] [place], [place] [address]aurelia Burns [address] [place] [address] Care Team Providers Name Role Phone GLENN [...] Range Comments HEPATITIS C ANTIBODY (BEAKER) (test fggf=800) Reactive Nonreactive POCT-GLUCOSE [id number] 12:03:00 Test Item Value Reference Range Comments POC-GLUCOSE METER (BEAKER) 169 mg/dL 70-110 TESTED AT [address] (test txli=7439) [facility] [address] HEPATITIS B CORE ANTIBODY, [id number] 08:37:00 Test Item Value Reference Range Comments HEPATITIS B CORE TOTAL ANTIBODY (BEAKER) (test Reactive Nonreactive zczy=270) POCT-GLUCOSE [id number] 08:14:00 Test Item Value Reference Range Comments POC-GLUCOSE METER (BEAKER) 105 mg/dL 70-110 TESTED AT [address] (test tdkh=8978) [facility] [address] HEPATIC FUNCTION [id number] 07:10:00 Test Item Value Reference Range Comments TOTAL PROTEIN (BEAKER) (test dhpn=705) 6.7 gm/dL 6.0-8.3 ALBUMIN (BEAKER) (test wplf=5150) 3.5 g/dL 3.5-5.0 BILIRUBIN TOTAL (BEAKER) (test nzsg=526) 0.5 mg/dL 0.2-1.2 BILIRUBIN DIRECT (BEAKER) (test rksz=507) 0.3 mg/dL 0.1-0.5 ALKALINE PHOSPHATASE (BEAKER) (test cbjz=992) 60 U/L 40-150 AST (SGOT) (BEAKER) (test jdmu=385) 47 U/L 5-34 ALT (SGPT) (BEAKER) (test plpa=162) 67 U/L 6-55 BASIC METABOLIC [id number] 07:10:00 Test Item Value Reference Range Comments SODIUM (BEAKER) (test 138 meq/L 136-145 qkjv=772) POTASSIUM (BEAKER) (test 3.8 meq/L 3.5-5.1 rvnz=576) CHLORIDE (BEAKER) (test 104 meq/L 98-107 vdnn=672) CO2 (BEAKER) (test 25 meq/L 22-29 jmqe=047) BLOOD UREA NITROGEN 18 mg/dL 7-21 (BEAKER) (test gvbj=938) CREATININE (BEAKER) (test 0.94 mg/dL 0.57-1.25 drsm=654) GLUCOSE RANDOM (BEAKER) 109 mg/dL 70-105 (test natg=877) CALCIUM (BEAKER) (test 9.1 mg/dL 8.4-10.2 epog=610) EGFR (BEAKER) (test 82 mL/min/1.73 sq m ESTIMATED GFR IS NOT pagk=2476) ACCURATE CREATININE CLEARANCE IN PREDICTING GLOMERULAR FILTRATION RATE. ESTIMATED GFR IS NOT APPLICABLE FOR DIALYSIS PATIENTS. HEPATITIS B SURFACE [id number] 06:58:00 Test Item Value Reference Range Comments HEPATITIS B SURFACE ANTIBODY (BEAKER) (test < mIU/mL <8.0 iezs=174) HEPATITIS B SURFACE [id number] 05:42:00 Test Item Value Reference Range Comments HEPATITIS B SURFACE ANTIGEN (2) (BEAKER) (test Nonreactive Nonreactive osii=5911) HEPATITIS B CORE ANTIBODY, [id number] 05:42:00 Test Item Value Reference Range Comments HEPATITIS B CORE IGM ANTIBODY (BEAKER) (test Nonreactive Nonreactive dvyg=185) CBC W/PLT COUNT & AUTO [id number] 04:56:00 Test Item Value Reference Range Comments WHITE BLOOD CELL COUNT (BEAKER) (test ywcd=028) 9.4 K/ L 3.5-10.5 RED BLOOD CELL COUNT (BEAKER) (test nomx=254) 4.48 M/ L 4.63-6.08 HEMOGLOBIN (BEAKER) (test kbvl=415) 13.6 GM/DL 13.7-17.5 HEMATOCRIT (BEAKER) (test uvea=150) 41.5 % 40.1-51.0 MEAN CORPUSCULAR VOLUME (BEAKER) (test xpft=637) 92.6 fL 79.0-92.2 MEAN CORPUSCULAR HEMOGLOBIN (BEAKER) (test 30.4 pg 25.7-32.2 tegw=609) MEAN CORPUSCULAR HEMOGLOBIN CONC (BEAKER) (test 32.8 GM/DL 32.3-36.5 gwme=194) RED CELL DISTRIBUTION WIDTH (BEAKER) (test 13.5 % 11.6-14.4 wjcv=513) PLATELET COUNT (BEAKER) (test ahzf=822) 218 K/CU MM 150-450 MEAN PLATELET VOLUME (BEAKER) (test ywxn=365) 11.3 fL 9.4-12.4 NUCLEATED RED BLOOD CELLS (BEAKER) (test 0 /100 WBC 0-0 vipj=068) NEUTROPHILS RELATIVE PERCENT (BEAKER) (test 52 % uobk=194) LYMPHOCYTES RELATIVE PERCENT (BEAKER) (test 31 % jmbu=007) MONOCYTES RELATIVE PERCENT (BEAKER) (test 8 % duwv=785) EOSINOPHILS RELATIVE PERCENT (BEAKER) (test 8 % bunu=446) BASOPHILS RELATIVE PERCENT (BEAKER) (test 1 % fnmu=058) NEUTROPHILS ABSOLUTE COUNT (BEAKER) (test 4.85 K/ L 1.78-5.38 yata=994) LYMPHOCYTES ABSOLUTE COUNT (BEAKER) (test 2.92 K/ L 1.32-3.57 bdlh=655) MONOCYTES ABSOLUTE COUNT (BEAKER) (test 0.77 K/ L 0.30-0.82 bvkw=008) EOSINOPHILS ABSOLUTE COUNT (BEAKER) (test 0.79 K/ L 0.04-0.54 iclk=927) BASOPHILS ABSOLUTE COUNT (BEAKER) (test 0.06 K/ L 0.01-0.08 qmkv=089) IMMATURE GRANULOCYTES-RELATIVE PERCENT (BEAKER) 0 % 0-1 (test ipbt=5775) U/S, RENAL WITH [id number] 16:28:00Reason for exam:-> hypertensionFINAL REPORT INDICATION: 57-year-old [...] Verified Date/Time: 05/11/2018 16: 28:02 Reading Location: [address] Ultrasound Reading Room U/S, ABDOMINAL, [id number] 16:15:00Abdomen limited area? Add comment if clarification [...] Verified Date/Time: 05/11/2018 16 :15:41 Reading Location: [facility] P006J Ultrasound Reading Room CTA, CHEST, ABDOMEN - PELVIS, FOR [id number] 14:11:00Reason for exam:->Chest painAddendum BeginsREPORT STATUS:A Addendum: I agree with the previously described non vascular findings. Signed: Antionette Hinojosa MDReport Verified Date/Time: 05/11/2018 14:11:09 Reading Location: [facility] P048 Angio Body Reading RoomAddendum EndsFINAL REPORT [...] coronary artery calcification is seen in the [place] coronary territories. Patient is post coronary artery [...] thoracic aorta. In the abdominal aorta, circumferential wrof-mr-anjthkaj calcific atherosclerosis is seen. Overall, no ectasia [...] An addendum will be dictated by the Coffee Roaster Radiologist regarding the nonvascular findings. Signed: Magno Augustin MDRepshriners hospitals for children Verified Date/Time: 05/10/2018 18:58:16 Reading Location: [place] [address] Cardiology MRI CALCIUM, [id number] 05:20:00 Test Item Value Reference Range Comments CALCIUM IONIZED (BEAKER) (test pvll=202) 1.16 mmol/L 1.12-1.27 PH, BLOOD (BEAKER) (test stpt=1367) 7.40 [id number] 04:29:00 Test Item Value Reference Range Comments PHOSPHORUS (BEAKER) (test tprb=675) 3.5 mg/dL 2.3-4.7 [id number] 04:29:00 Test Item Value Reference Range Comments MAGNESIUM (BEAKER) (test pxwm=848) 2.4 mg/dL 1.6-2.6 COMPREHENSIVE METABOLIC [id number] 04:29:00 Test Item Value Reference Range Comments TOTAL PROTEIN (BEAKER) 6.8 gm/dL 6.0-8.3 (test lflm=109) ALBUMIN (BEAKER) (test 3.6 g/dL 3.5-5.0 regq=4016) ALKALINE PHOSPHATASE 58 U/L 40-150 (BEAKER) (test htdv=928) BILIRUBIN TOTAL (BEAKER) 0.6 mg/dL 0.2-1.2 (test xxgl=166) SODIUM (BEAKER) (test 140 meq/L 136-145 eneo=035) POTASSIUM (BEAKER) (test 3.6 meq/L 3.5-5.1 lrrw=571) CHLORIDE (BEAKER) (test 105 meq/L 98-107 qypd=499) CO2 (BEAKER) (test 28 meq/L 22-29 nzub=813) BLOOD UREA NITROGEN 14 mg/dL 7-21 (BEAKER) (test ptda=469) CREATININE (BEAKER) (test 0.85 mg/dL 0.57-1.25 ntcm=155) GLUCOSE RANDOM (BEAKER) 83 mg/dL 70-105 (test iegm=734) CALCIUM (BEAKER) (test 9.0 mg/dL 8.4-10.2 cjlf=202) AST (SGOT) (BEAKER) (test 68 U/L 5-34 wsfy=819) ALT (SGPT) (BEAKER) (test 72 U/L 6-55 ucnk=972) EGFR (BEAKER) (test 92 mL/min/1.73 sq m ESTIMATED GFR IS NOT zxje=3111) ACCURATE CREATININE CLEARANCE IN PREDICTING GLOMERULAR FILTRATION RATE. ESTIMATED GFR IS NOT APPLICABLE FOR DIALYSIS PATIENTS. CBC W/PLT COUNT & AUTO [id number] 03:58:00 Test Item Value Reference Range Comments WHITE BLOOD CELL COUNT (BEAKER) (test jtcj=530) 10.2 K/ L 3.5-10.5 RED BLOOD CELL COUNT (BEAKER) (test ufep=472) 4.49 M/ L 4.63-6.08 HEMOGLOBIN (BEAKER) (test caqc=773) 13.4 GM/DL 13.7-17.5 HEMATOCRIT (BEAKER) (test upxi=155) 41.7 % 40.1-51.0 MEAN CORPUSCULAR VOLUME (BEAKER) (test hszw=622) 92.9 fL 79.0-92.2 MEAN CORPUSCULAR HEMOGLOBIN (BEAKER) (test 29.8 pg 25.7-32.2 qqau=971) MEAN CORPUSCULAR HEMOGLOBIN CONC (BEAKER) (test 32.1 GM/DL 32.3-36.5 hxvs=814) RED CELL DISTRIBUTION WIDTH (BEAKER) (test 13.7 % 11.6-14.4 xypo=026) PLATELET COUNT (BEAKER) (test vqzn=207) 192 K/CU MM 150-450 MEAN PLATELET VOLUME (BEAKER) (test xwkp=381) 10.7 fL 9.4-12.4 NUCLEATED RED BLOOD CELLS (BEAKER) (test 0 /100 WBC 0-0 btam=579) NEUTROPHILS RELATIVE PERCENT (BEAKER) (test 53 % yvzi=421) LYMPHOCYTES RELATIVE PERCENT (BEAKER) (test 32 % gqoc=740) MONOCYTES RELATIVE PERCENT (BEAKER) (test 9 % yrzn=020) EOSINOPHILS RELATIVE PERCENT (BEAKER) (test 5 % tawu=466) BASOPHILS RELATIVE PERCENT (BEAKER) (test 1 % pupp=311) NEUTROPHILS ABSOLUTE COUNT (BEAKER) (test 5.36 K/ L 1.78-5.38 rqxy=205) LYMPHOCYTES ABSOLUTE COUNT (BEAKER) (test 3.23 K/ L 1.32-3.57 ylwo=017) MONOCYTES ABSOLUTE COUNT (BEAKER) (test 0.93 K/ L 0.30-0.82 bgva=995) EOSINOPHILS ABSOLUTE COUNT (BEAKER) (test 0.54 K/ L 0.04-0.54 ferw=803) BASOPHILS ABSOLUTE COUNT (BEAKER) (test 0.07 K/ L 0.01-0.08 arcm=839) IMMATURE GRANULOCYTES-RELATIVE PERCENT (BEAKER) 0 % 0-1 (test lpdw=7653) U/S, RENAL, [id number] 13:00:00Reason for exam:->akiShould this be performed at [...] MDReport Verified Date/Time: 05/10/2018 13:00:32 Reading Location: [address] Ultrasound Reading Room CALCIUM, [id number] 06:58:00 Test Item Value Reference Range Comments CALCIUM IONIZED (BEAKER) (test xaho=192) 1.08 mmol/L 1.12-1.27 PH, BLOOD (BEAKER) (test eplp=8085) 7.35 B-TYPE NATRIURETIC FACTOR (BNP)2018-05-10 05:49:00 Test Item Value Reference Range Comments B-TYPE NATRIURETIC PEPTIDE (BEAKER) (test 153 pg/mL 0-100 kyke=168) [id number] 05:47:00 Test Item Value Reference Range Comments MAGNESIUM (BEAKER) (test 2.4 mg/dL 1.6-2.6 Specimen slightly hemolyzed iqmw=891) [id number] 05:47:00 Test Item Value Reference Range Comments PHOSPHORUS (BEAKER) (test 2.7 mg/dL 2.3-4.7 Specimen slightly hemolyzed syup=454) COMPREHENSIVE METABOLIC [id number] 05:47:00 Test Item Value Reference Range Comments TOTAL PROTEIN (BEAKER) 6.1 gm/dL 6.0-8.3 Specimen slightly (test bwqr=447) hemolyzed ALBUMIN (BEAKER) (test 3.2 g/dL 3.5-5.0 Specimen slightly kptf=4392) hemolyzed ALKALINE PHOSPHATASE 48 U/L 40-150 (BEAKER) (test tewz=583) BILIRUBIN TOTAL (BEAKER) 0.8 mg/dL 0.2-1.2 Specimen slightly (test dpkb=964) hemolyzed SODIUM (BEAKER) (test 140 meq/L 136-145 wmam=774) POTASSIUM (BEAKER) (test 4.1 meq/L 3.5-5.1 Specimen slightly wiyo=390) hemolyzed CHLORIDE (BEAKER) (test 109 meq/L 98-107 rawn=674) CO2 (BEAKER) (test 23 meq/L 22-29 xjoo=478) BLOOD UREA NITROGEN 24 mg/dL 7-21 (BEAKER) (test acav=090) CREATININE (BEAKER) (test 0.88 mg/dL 0.57-1.25 Specimen slightly oswa=442) hemolyzed GLUCOSE RANDOM (BEAKER) 88 mg/dL 70-105 (test aonp=798) CALCIUM (BEAKER) (test 8.3 mg/dL 8.4-10.2 dvuf=751) AST (SGOT) (BEAKER) (test 51 U/L 5-34 Specimen slightly gxrh=470) hemolyzed ALT (SGPT) (BEAKER) (test 74 U/L 6-55 Specimen slightly mpks=518) hemolyzed EGFR (BEAKER) (test 89 mL/min/1.73 sq m ESTIMATED GFR IS NOT idep=1740) ACCURATE CREATININE CLEARANCE IN PREDICTING GLOMERULAR FILTRATION RATE. ESTIMATED GFR IS NOT APPLICABLE FOR DIALYSIS PATIENTS. CBC W/PLT COUNT & AUTO [id number] 05:31:00 Test Item Value Reference Range Comments WHITE BLOOD CELL COUNT (BEAKER) (test rfwu=933) 13.0 K/ L 3.5-10.5 RED BLOOD CELL COUNT (BEAKER) (test uhwj=085) 4.32 M/ L 4.63-6.08 HEMOGLOBIN (BEAKER) (test trbv=123) 13.0 GM/DL 13.7-17.5 HEMATOCRIT (BEAKER) (test pjmj=135) 40.5 % 40.1-51.0 MEAN CORPUSCULAR VOLUME (BEAKER) (test vnjv=295) 93.8 fL 79.0-92.2 MEAN CORPUSCULAR HEMOGLOBIN (BEAKER) (test 30.1 pg 25.7-32.2 bfoe=035) MEAN CORPUSCULAR HEMOGLOBIN CONC (BEAKER) (test 32.1 GM/DL 32.3-36.5 acit=654) RED CELL DISTRIBUTION WIDTH (BEAKER) (test 13.9 % 11.6-14.4 oeqr=671) PLATELET COUNT (BEAKER) (test ymec=898) 215 K/CU MM 150-450 MEAN PLATELET VOLUME (BEAKER) (test fzaa=516) 11.2 fL 9.4-12.4 NUCLEATED RED BLOOD CELLS (BEAKER) (test 0 /100 WBC 0-0 xzuz=768) NEUTROPHILS RELATIVE PERCENT (BEAKER) (test 56 % nfif=265) LYMPHOCYTES RELATIVE PERCENT (BEAKER) (test 32 % fxgs=807) MONOCYTES RELATIVE PERCENT (BEAKER) (test 9 % jrji=804) EOSINOPHILS RELATIVE PERCENT (BEAKER) (test 2 % ajln=662) BASOPHILS RELATIVE PERCENT (BEAKER) (test 1 % ylfs=379) NEUTROPHILS ABSOLUTE COUNT (BEAKER) (test 7.24 K/ L 1.78-5.38 gsjx=230) LYMPHOCYTES ABSOLUTE COUNT (BEAKER) (test 4.17 K/ L 1.32-3.57 wsjy=504) MONOCYTES ABSOLUTE COUNT (BEAKER) (test 1.12 K/ L 0.30-0.82 obvx=607) EOSINOPHILS ABSOLUTE COUNT (BEAKER) (test 0.30 K/ L 0.04-0.54 tith=501) BASOPHILS ABSOLUTE COUNT (BEAKER) (test 0.07 K/ L 0.01-0.08 cnua=509) IMMATURE GRANULOCYTES-RELATIVE PERCENT (BEAKER) 1 % 0-1 (test totk=9454) EOSINOPHIL SMEAR, [id number] 22:19:00 Test Item Value Reference Range Comments EOSINOPHIL SMEAR, URINE (BEAKER) (test No EOS seen No EOS seen jiip=8018) URINALYSIS W/ [id number] 22:13:00 Test Item Value Reference Range Comments COLOR (BEAKER) (test pdpl=608) Yellow CLARITY (BEAKER) (test iuhp=325) Clear SPECIFIC GRAVITY UA (BEAKER) (test aoot=459) 1.025 1.001-1.035 PH UA (BEAKER) (test cltg=111) 5.5 5.0-8.0 PROTEIN UA (BEAKER) (test wrlf=161) 20 mg/dL Negative GLUCOSE UA (BEAKER) (test nhlw=389) 70 mg/dL Negative KETONES UA (BEAKER) (test rija=894) Negative Negative BILIRUBIN UA (BEAKER) (test fxku=728) Negative Negative BLOOD UA (BEAKER) (test utpx=451) Negative Negative NITRITE UA (BEAKER) (test sqfq=871) Negative Negative LEUKOCYTE ESTERASE UA (BEAKER) (test rqma=626) Negative Negative UROBILINOGEN UA (BEAKER) (test drnh=844) 3.0 mg/dL 0.2-1.0 RBC UA (BEAKER) (test ldhe=570) 0 /HPF WBC UA (BEAKER) (test zxum=615) 2 /HPF BACTERIA (BEAKER) (test hwvc=761) Rare MUCUS (BEAKER) (test bqcq=8315) Few SQUAMOUS EPITHELIAL (BEAKER) (test osqe=000) 1 /HPF SOURCE(BEAKER) (test oxmi=3216) SODIUM, RANDOM [id number] 21:38:00 Test Item Value Reference Range Comments SODIUM URINE (BEAKER) (test pluw=574) < meq/L Reference Range: No NormalsPROTEIN, RANDOM [id number] 21:38:00 Test Item Value Reference Range Comments PROTEIN, URINE (BEAKER) (test qlnp=7630) 15 mg/dL 0-14 CREATININE, RANDOM [id number] 21:38:00 Test Item Value Reference Range Comments CREATININE URINE (BEAKER) (test kfyk=138) 173.4 mg/dL Reference Range: No NormalsRAD, FOOT, 2 VIEWS, [id number] 13:59:00Reason for exam:->Pain and swelling of left foot after fall.FINAL REPORT Two views left foot Discussion: There is hallux valgus with degenerative changes. No visible acute fracture, dislocation, destructive lesion. Soft tissues are unremarkable. Signed: Darren Arizatay Verified Date/Time: 05/09/2018 13:59:01 Reading Location: [facility] C013W Consult Reading Room PUL PERF IMAGING, PARTIC, [id number] 12:03:00FINAL REPORT PROCEDURE: V/Q LUNG SCAN CPT CODE: 43134 INDICATION: Acute chest pain, PE suspected, dyspnea, [...] MDReport Verified Date/Time: 05/09/2018 12: 03:05 ReadingLocation: [facility] [address] [facility] Reading Room FL, ESOPH, SWALLOW FUNCTION, WITH CINE OR [id number] 11:00:00Reason for exam:-& gt;chest painFINAL REPORT Esophagram [...] Verified Date/Time: 05/09/2018 11:00:37 Reading Location : [facility] B1 C013X [facility] Consult Reading Room HEMOGLOBIN [id number] 10:45:00 Test Item Value Reference Range Comments HEMOGLOBIN A1C (BEAKER) (test rsxq=878) 6.3 % 4.3-6.1 BASIC METABOLIC [id number] 08:43:00 Test Item Value Reference Range Comments SODIUM (BEAKER) (test 138 meq/L 136-145 jkvz=506) POTASSIUM (BEAKER) (test 3.8 meq/L 3.5-5.1 Specimen slightly boos=128) hemolyzed CHLORIDE (BEAKER) (test 104 meq/L 98-107 lrqc=220) CO2 (BEAKER) (test 24 meq/L 22-29 ujof=650) BLOOD UREA NITROGEN 35 mg/dL 7-21 (BEAKER) (test mgqi=494) CREATININE (BEAKER) (test 1.39 mg/dL 0.57-1.25 Specimen slightly jpdj=674) hemolyzed GLUCOSE RANDOM (BEAKER) 124 mg/dL 70-105 (test eduf=744) CALCIUM (BEAKER) (test 9.2 mg/dL 8.4-10.2 ptut=825) EGFR (BEAKER) (test 52 mL/min/1.73 sq m ESTIMATED GFR IS NOT aaci=8425) ACCURATE CREATININE CLEARANCE IN PREDICTING GLOMERULAR FILTRATION RATE. ESTIMATED GFR IS NOT APPLICABLE FOR DIALYSIS PATIENTS. Re-draw per labLIPID [id number] 08:42:00 Test Item Value Reference Range Comments TRIGLYCERIDES (BEAKER) (test 161 mg/dL Specimen slightly hemolyzed eqtf=686) CHOLESTEROL (BEAKER) (test 111 mg/dL Specimen slightly hemolyzed zrxs=862) HDL CHOLESTEROL (BEAKER) (test 39 mg/dL yzgk=092) LDL CHOLESTEROL CALCULATED 40 mg/dL (BEAKER) (test ikzq=196) Triglyceride Reference Range: Low Risk <150 Borderline 150- 199 High Risk 200-499 Very High Risk >=500Cholesterol Reference Range: Low Risk <200 Borderline 200-239 High Risk > 240HDL Cholesterol Reference Range: Low Risk >=60 High Risk <40LDL Cholesterol Reference Range: Optimal <100 Near Optimal 100-129 Borderline 130-159 High 160-189 Very High >=190LITHIUM [id number] 08:31:00 Test Item Value Reference Range Comments LITHIUM LEVEL (BEAKER) (test okot=803) 0.4 mmol/L 0.8-1.2 RAPID DRUG SCREEN, [id number] 07:54:00 Test Item Value Reference Range Comments BARBITURATE URINE (BEAKER) (test qusi=344) Negative Negative BENZODIAZEPINE SCREEN URINE (BEAKER) (test Positive Negative abny=333) COCAINE (METAB.) SCREEN (BEAKER) (test eftt=2753) Negative Negative METHADONE SCREEN (BEAKER) (test fqqr=4265) Negative Negative OPIATE SCREEN URINE (BEAKER) (test ppgf=707) Positive Negative CANNABINOID SCREEN URINE (BEAKER) (test fybi=144) Negative Negative AMPH/METHAMPH SCREEN (BEAKER) (test qfja=6645) Negative Negative PHENCYCLIDINE SCREEN URINE (BEAKER) (test zvmm=387) Negative Negative OXYCODONE SCREEN URINE (BEAKER) (test vdix=3625) Negative Negative DRUG CUTOFF CONC.Cocaine 300 ng/mL Cannabinoid 50 ng/mL Benzodiazepine 200 ng/mLBarbiturate 200 ng/ mLPhencyclidine 25 ng/mLOpiate 300 ng/mLMethadone 300 ng/mLAmphetamine/ 1000 ng/mL MethamphetamineOxycodone 300 ng/mLThis assay provides an unconfirmed qualitative test result for the clinical management of patients in emergency situations. Chain of custody not maintained. Some ybcz-aat-yihhjuc medications, as well as adulterants, may cause inaccurate results. Clinical correlation should be applied. A more comprehensive drug screen or confirmation of a detected drug may be performed upon request.CREATINE KINASE (CK), TOTAL AND [id number] 07:47:00 Test Item Value Reference Range Comments CREATINE KINASE TOTAL (BEAKER) (test ijer=113) 161 U/L 29-200 CREATINE KINASE-MB (BEAKER) (test fzou=010) 4.9 ng/mL 0.0-6.6 CREATINE KINASE-MB INDEX (BEAKER) (test jxym=752) 3.0 % CK-MB Reference Range:<6.7 Normal6.7-10.0 Borderline>10.0 AbnormalTROPONIN [id number] 07:47:00 Test Item Value Reference Range Comments TROPONIN I (BEAKER) (test qqos=388) 0.04 ng/mL 0.00-0.03 Troponin I (TnI) levels [...] acute neurological disease, and persistent tachyarrhythmia.BASIC METABOLIC [id number] 04:56:00 Test Item Value Reference Range Comments SODIUM (BEAKER) (test 139 meq/L 136-145 grgt=714) POTASSIUM (BEAKER) (test 3.4 meq/L 3.5-5.1 clws=443) CHLORIDE (BEAKER) (test 105 meq/L 98-107 aiyu=470) CO2 (BEAKER) (test 25 meq/L 22-29 volg=162) BLOOD UREA NITROGEN 38 mg/dL 7-21 (BEAKER) (test udpl=561) CREATININE (BEAKER) (test 1.35 mg/dL 0.57-1.25 obim=751) GLUCOSE RANDOM (BEAKER) 140 mg/dL 70-105 (test hkuu=466) CALCIUM (BEAKER) (test 8.9 mg/dL 8.4-10.2 wmtm=471) EGFR (BEAKER) (test 54 mL/min/1.73 sq m ESTIMATED GFR IS NOT bjkg=1864) ACCURATE CREATININE CLEARANCE IN PREDICTING GLOMERULAR FILTRATION RATE. ESTIMATED GFR IS NOT APPLICABLE FOR DIALYSIS PATIENTS. CBC (HEMOGRAM ONLY)2018-05-09 04:38:00 Test Item Value Reference Range Comments WHITE BLOOD CELL COUNT (BEAKER) (test gssy=548) 15.8 K/ L 3.5-10.5 RED BLOOD CELL COUNT (BEAKER) (test dilb=191) 4.80 M/ L 4.63-6.08 HEMOGLOBIN (BEAKER) (test qyts=194) 14.5 GM/DL 13.7-17.5 HEMATOCRIT (BEAKER) (test kgwl=650) 44.0 % 40.1-51.0 MEAN CORPUSCULAR VOLUME (BEAKER) (test hhgg=927) 91.7 fL 79.0-92.2 MEAN CORPUSCULAR HEMOGLOBIN (BEAKER) (test 30.2 pg 25.7-32.2 pzmg=663) MEAN CORPUSCULAR HEMOGLOBIN CONC (BEAKER) (test 33.0 GM/DL 32.3-36.5 qnuw=972) RED CELL DISTRIBUTION WIDTH (BEAKER) (test 14.2 % 11.6-14.4 iuel=851) PLATELET COUNT (BEAKER) (test txoc=541) 238 K/CU MM 150-450 MEAN PLATELET VOLUME (BEAKER) (test nypl=308) 11.5 fL 9.4-12.4 NUCLEATED RED BLOOD CELLS (BEAKER) (test 0 /100 WBC 0-0 epuc=991) CT, BRAIN, WITHOUT [id number] 21:00:00FINAL REPORT CT, BRAIN, WITHOUT CONTRAST INDICATION: [...] Verified Date/ Time: 05/08/2018 21:00:20 Reading Location: [address] Reading Room B- TYPE NATRIURETIC FACTOR (BNP)2018-05-08 19:03:00 Test Item Value Reference Range Comments B-TYPE NATRIURETIC PEPTIDE (BEAKER) (test 254 pg/mL 0-100 yufv=991) CREATINE KINASE (CK), TOTAL AND [id number] 19:02:00 Test Item Value Reference Range Comments CREATINE KINASE TOTAL (BEAKER) (test wlyq=945) 150 U/L 29-200 CREATINE KINASE-MB (BEAKER) (test jtip=189) 5.5 ng/mL 0.0-6.6 CREATINE KINASE-MB INDEX (BEAKER) (test qgaa=107) 3.7 % CK-MB Reference Range:<6.7 Normal6.7-10.0 Borderline>10.0 AbnormalTROPONIN [id number] 19:02:00 Test Item Value Reference Range Comments TROPONIN I (BEAKER) (test fwkq=450) 0.06 ng/mL 0.00-0.03 Troponin I (TnI) levels [...] acute neurological disease, and persistent tachyarrhythmia.BASIC METABOLIC [id number] 18:32:00 Test Item Value Reference Range Comments SODIUM (BEAKER) (test 137 meq/L 136-145 refr=126) POTASSIUM (BEAKER) (test 3.9 meq/L 3.5-5.1 vxfa=615) CHLORIDE (BEAKER) (test 102 meq/L 98-107 azqa=201) CO2 (BEAKER) (test 24 meq/L 22-29 ycbe=845) BLOOD UREA NITROGEN 35 mg/dL 7-21 (BEAKER) (test ttga=483) CREATININE (BEAKER) (test 1.56 mg/dL 0.57-1.25 cnfp=744) GLUCOSE RANDOM (BEAKER) 119 mg/dL 70-105 (test buom=408) CALCIUM (BEAKER) (test 9.3 mg/dL 8.4-10.2 vwni=230) EGFR (BEAKER) (test 46 mL/min/1.73 sq m ESTIMATED GFR IS NOT qdly=6739) ACCURATE CREATININE CLEARANCE IN PREDICTING GLOMERULAR FILTRATION RATE. ESTIMATED GFR IS NOT APPLICABLE FOR DIALYSIS PATIENTS. CBC W/PLT COUNT & AUTO [id number] 18:28:00 Test Item Value Reference Range Comments WHITE BLOOD CELL COUNT (BEAKER) (test aiih=325) 17.1 K/ L 3.5-10.5 RED BLOOD CELL COUNT (BEAKER) (test vvbg=671) 5.16 M/ L 4.63-6.08 HEMOGLOBIN (BEAKER) (test upiu=886) 15.5 GM/DL 13.7-17.5 HEMATOCRIT (BEAKER) (test hrsf=936) 47.6 % 40.1-51.0 MEAN CORPUSCULAR VOLUME (BEAKER) (test ysqb=021) 92.2 fL 79.0-92.2 MEAN CORPUSCULAR HEMOGLOBIN (BEAKER) (test 30.0 pg 25.7-32.2 xgyw=863) MEAN CORPUSCULAR HEMOGLOBIN CONC (BEAKER) (test 32.6 GM/DL 32.3-36.5 hqjw=889) RED CELL DISTRIBUTION WIDTH (BEAKER) (test 14.0 % 11.6-14.4 rruq=471) PLATELET COUNT (BEAKER) (test myhq=325) 297 K/CU MM 150-450 MEAN PLATELET VOLUME (BEAKER) (test unen=728) 11.3 fL 9.4-12.4 NUCLEATED RED BLOOD CELLS (BEAKER) (test 0 /100 WBC 0-0 vlpn=101) NEUTROPHILS RELATIVE PERCENT (BEAKER) (test 78 % bozo=455) LYMPHOCYTES RELATIVE PERCENT (BEAKER) (test 14 % rkdz=983) MONOCYTES RELATIVE PERCENT (BEAKER) (test 7 % salb=451) EOSINOPHILS RELATIVE PERCENT (BEAKER) (test 0 % wpeo=216) BASOPHILS RELATIVE PERCENT (BEAKER) (test 0 % hgaa=293) NEUTROPHILS ABSOLUTE COUNT (BEAKER) (test 13.35 K/ L 1.78-5.38 bidc=701) LYMPHOCYTES ABSOLUTE COUNT (BEAKER) (test 2.35 K/ L 1.32-3.57 rxrg=151) MONOCYTES ABSOLUTE COUNT (BEAKER) (test 1.23 K/ L 0.30-0.82 hpef=378) EOSINOPHILS ABSOLUTE COUNT (BEAKER) (test 0.00 K/ L 0.04-0.54 syuy=241) BASOPHILS ABSOLUTE COUNT (BEAKER) (test 0.05 K/ L 0.01-0.08 nzje=385) IMMATURE GRANULOCYTES-RELATIVE PERCENT (BEAKER) 1 % 0-1 (test rykk=9844) [id number] 18:15:00 Test Item Value Reference Range Comments PARTIAL THROMBOPLASTIN TIME (BEAKER) (test 30.0 seconds 22.5-36.0 awkz=091) Prior to initiating heparin
--- OUTSIDE RECORDS SUMMARY | 2018-07-21 16:32 | XMS REPORT ---
[...] End Status Dosage System Date Date Dulera [facility] 87931309601 100-5 MCG/ACT Active 2 puffs Inhalation Twice a day Amitriptyline [facility] 90783789478 50 MG Orally February 28, Active 1 tablet HCl Once a day 2017 Amiodarone HCl [facility] 02103386712 200 MG Orally Active 1 tablet Once a day Memantine HCl NDC 79483023096 10 MG Orally Active 1 tablet Twice a day Clonidine HCl [facility] 52035280885 0.1 MG Orally April 20, Active 2 tablet twice 2017 twice x 1 week then 1 tablet twice a day for 1 week. Coreg [facility] 49296230430 12.5 MG Orally Active 2 tabs bid [place] [facility] 20714137250 10-325 MG Active 1 tablet Orally every 6 as needed hrs Linzess [facility] 92673772978 145 MCG Orally April 20Jun Active 1 capsule Once a day 2017 Lipitor [facility] 33632000270 40 MG Orally Active 1 tablet Once a day Clonidine HCl [facility] 22327449213 0.3 MG Orally Inactive 1 tablet Twice a day Lisinopril [facility] 37046000370 40 MG Orally Active 1 tablet Once a day Results No Known Results Summary Purpose eClinicalWorks Submission
--- OUTSIDE RECORDS SUMMARY | 2018-07-21 16:32 | XMS REPORT ---
:1960 Author Organization eClinicalWorks Care Team Providers Name Role Phone Heard, Na Provider Role Unavailable Allergies, Adverse Reactions, Alerts Substance Reaction Event Type penicillin rash Drug Allergy Problems Problem Type Condition Code Onset Dates Condition Status Assessment Actinic keratosis L57.0 Active Assessment Lumbar degenerative disc disease M51.36 Active Assessment Hepatitis C virus infection B19.20 Active without hepatic coma, unspecified chronicity Assessment Primary insomnia F51.01 Active Assessment Elevated blood pressure reading R03.0 Active Assessment Hyperlipidemia E78.5 Active Problem Abdominal pain R10.9 Active Assessment HTN (hypertension) I10 Active Problem Left foot pain M79.672 Active [...] Status Dosage System Date Date Clonidine HCl ND 54243597054 0.3 MG Orally Inactive 1 tablet Twice a day Amiodarone HCl ND 20062298628 200 MG Orally Active 1 tablet Once a day Lisinopril ND 38490042339 40 MG Orally Active 1 tablet Once a day Clonidine HCl [facility] 77131586814 0.1 MG Orally April 20, Active 2 tablet twice 2017 twice x 1 week then 1 tablet twice a day for 1 week. Memantine HCl [facility] 92572431480 10 MG Orally Active 1 tablet Twice a day [place] [facility] 98998665399 10-325 MG Active 1 tablet Orally every 6 as needed hrs Lipitor [facility] 70356383011 40 MG Orally Active 1 tablet Once a day Coreg [facility] 49619375912 12.5 MG Orally Active 2 tabs bid Linzess [facility] 10038984719 145 MCG Orally April 20Jun Active 1 capsule Once a day [address] [facility] 89620609679 50 MG Orally Active 1 tablet HCl Once a day Dulera [facility] 02751179005 100-5 MCG/ACT Active 2 puffs Inhalation Twice a day Results No Known Results Summary Purpose eClinicalWorks Submission
--- OUTSIDE RECORDS SUMMARY | 2018-07-21 16:32 | XMS REPORT ---
[...] End Status Dosage System Date Date Coreg [facility] 69459500599 12.5 MG Orally Active not twice a day defined [place] [facility] [address]-40 Active not Carbonate ER defined Coreg [facility] 58399801534 12.5 MG Orally December Active as bid 2017 Clonidine HCl [facility] 46523859561 0.3 MG Orally March 15, Active 1 tablet Twice a day 2017 Memantine HCl [facility] 95275891368 10 MG Orally March 15, Active 1 tablet Twice a day 2017 Lipitor [facility] 71472137513 40 MG Orally February 28, Active 1 tablet Once a day 2017 Dulera [facility] 89482670487 100-5 MCG/ACT Active 2 puffs Inhalation Twice a day Lisinopril [facility] 13262583617 40 MG Orally February 28, Active 1 tablet Once a day 2017 Clonidine HCl [facility] 86937721055 0.2 MG Orally February 28, Inactive 1 tablet twice a day 2017 Amitriptyline [facility] 88769699599 50 MG Orally February 28, Active 1 tablet HCl Once a day 2017 Amiodarone HCl [facility] 79071156560 200 MG Orally Active 1 tablet Once a day [place] [facility] 87252678543 10-325 MG Active 1 tablet Orally every 6 as needed hrs Results No Known Results Summary Purpose eClinicalWorks Submission
--- OUTSIDE RECORDS SUMMARY | 2018-07-21 16:32 | XMS REPORT ---
[...] Status Dosage System Date Date Clonidine HCl [facility] 54740432603 0.3 MG Orally Nov 30 Inactive 1 tablet Twice a day 2017 Dulera [facility] 52838939154 100-5 MCG/ACT Active 2 puffs Inhalation Twice a day Valproic Acid ND 47262636174 250 MG Orally Inactive not three times a defined day Lisinopril ND 08564530387 10 MG Orally December Inactive 1 tablet Once a day 2017 Coreg [facility] 86780878477 12.5 MG Orally Active not twice a day defined [place] [facility] 37589632788 10-325 MG Active 1 tablet Orally every 6 as needed hrs Lisinopril [facility] 91330769856 40 MG Orally February 28, Active 1 tablet Once a day 2017 amitriptyline [facility] 55422902316 25 mg po February Inactive one tab bedtime 2017 Lisinopril [facility] 23399673862 5 MG Orally Inactive 1 tablet Once a day Clonidine HCl [facility] 58452905462 0.3 MG Orally Inactive 1 tablet Twice a day Amiodarone HCl [facility] 78032285469 200 MG Orally Active 1 tablet Once a day Lipitor [facility] 14694638071 40 MG Orally February 28, Active 1 tablet Once a day 2017 Coreg [facility] 24915029967 12.5 MG Orally December Active as bid 2017 directed Amitriptyline [facility] 35340931876 50 MG Orally February 28, Active 1 tablet HCl Once a day 2017 atarax [facility] 08495963527 Inactive not defined Cheratussin AC [facility] 45397421180 100-10 MG/5ML Inactive 10 ml Orally every 8 hrs Clonidine HCl [facility] 27013680048 0.2 MG Orally February 28, Active 1 tablet twice a day 2017 Results No Known Results Summary Purpose eClinicalWorks Submission
[2018-07-21] MEDS ORDERED: PROMETHAZINE HCL 50 MG/ML AMP IM ONE (16:46)
[2018-07-21] MEDS ORDERED: NITROGLYCERIN 1 GM PKT TD ONE (16:46)
--- NOTE | 2018-07-21 17:08 | RAD REPORT ---
EXAM DESCRIPTION: Jose Single View07/21/2018 5:00 pm CLINICAL HISTORY: Chest pain COMPARISON: May 2018 FINDINGS: The lungs appear clear of acute infiltrate. The heart is mildly enlarged. Postsurgical changes involve the chest. IMPRESSION: No acute abnormalities displayed
[2018-07-21 17:14] LABS: Absolute Lymphocytes (CBC) 2.4 K/uL (0.7-4.9); Absolute Monocytes 0.7 K/uL (0.1-1.3); Absolute Neutrophil 5.7 K/uL (1.8-8.0); Basophils % 0.6 % (0-1.3); Eosinophils % 1.1 % (0-4.4); Hematocrit 41.3 % (39.6-49.0); Lymphocytes % 26.9 % (15.3-44.8); MCH 30.6 pg (27.0-35.0); MCV 90.8 fL (80-100); MPV 10.1 fL (7.6-11.3); Monocytes % 8.1 % (3.3-12.3); RBC Red Blood Cell Count 4.55 M/uL (4.33-5.43)
[2018-07-21] MEDS ORDERED: MEPERIDINE HCL 50 MG/ML AMP ONE ×2 (17:17→19:04)
[2018-07-21 17:20] LABS: BUN Blood Urea Nitrogen 12 mg/dL (7-18); Bicarbonate 26 mmol/L (21-32); Glucose Level 137 mg/dL (74-106); NT PRO-BNP 619 pg/mL (<125); Potassium 3.4 mmol/L (3.5-5.1); Sodium Level 140 mmol/L (136-145); Troponin (Emerg Dept Use Only) < 0.02 ng/mL (0.0-0.045)
--- NOTE | 2018-07-21 17:39 | EDPHYS ---
Physician Documentation [facility] Name: Blayne Macias Age: 57 yrs Sex: Male : 1960 Arrival Date: 07/21/2018 Time: 16:33 Bed 2 Private MD: ED Physician Peng Mitchell HPI: 07/21 16:50 This 57 yrs old Male presents to ER via EMS with complaints of Chest Pain. rn 16:50 The patient or guardian reports chest pain that is located primarily in the substernal rn area. Onset: 3 day(s) ago. The pain radiates to the left arm, The chest pain is described as a heaviness, a pressure. Duration: The patient or guardian reports multiple episodes, that are intermittent. Severity of pain: At its worst the pain was moderate in the emergency department the pain is unchanged. The patient has experienced similar episodes in the past. Reports substernal chest pain, feels sharp and like something sitting on his chest, similar to when needed bypass 2 years ago, takes aspirin, given 2 nitro by EMS without improvement, intermittent for 2 days, now constant since noon today, assoc with sob. . Historical: - Allergies: 16:37 Codeine; sv 16:37 PENICILLINS; sv - Home Meds: 19:18 amiodarone 200 mg Oral tab 0.5 tab 2 times per day [Active]; amitriptyline 50 mg Oral lp1 tab 1 tab once daily [Active]; aspirin 81 mg Oral chew 1 tab once daily [Active]; carvedilol 25 mg Oral tab 0.5 tab 2 times per day [Active]; clonidine HCl 0.3 mg Oral tab 1 tab 2 times per day [Active]; hydrochlorothiazide 12.5 mg Oral tab 1 tab once daily [Active]; isosorbide mononitrate 60 mg Oral Tb24 [Active]; Lasix 40 mg Oral tab 1 tab once daily [Active]; lisinopril 5 mg Oral tab once daily [Active]; lithium carbonate 300 mg Oral cap 1 cap 3 times per day [Active]; Norvasc 10 mg Oral tab once daily [Active]; ProAir HFA 90 mcg/actuation inhalation HFAA [Active]; simvastatin 40 mg Oral tab 1 tab once daily [Active]; Symbicort 160-4.5 mcg/actuation inhalation HFAA 2 puffs 2 times per day [Active]; - PMHx: 16:37 Atrial Fib; Back pain; Bipolar disorder; CAD; CHF; chronic back pain; COPD; High sv Cholesterol; Hypertension; Pneumonia; - PSHx: 16:37 pain stimulator to back, neck surgery; CABG; sv - Immunization history:: Adult Immunizations up to date. - Social history:: Smoking status: Patient/guardian denies using tobacco. - Family history:: not pertinent. - Ebola Screening: : Patient negative for fever greater than or equal to 101.5 degrees Fahrenheit, and additional compatible Ebola Virus Disease symptoms Patient denies exposure to infectious person Patient denies travel to an Ebola-affected area in the 21 days before illness onset No symptoms or risks identified at this time. - Hospitalizations: : No recent hospitalization is reported. ROS: 16:50 Constitutional: Negative for fever, chills, and weight loss, Eyes: Negative for injury, rn pain, redness, and discharge, Cardiovascular: Negative for palpitations Respiratory: + sob Abdomen/GI: Negative for abdominal pain, nausea, vomiting, diarrhea, and constipation, MS/Extremity: Negative for injury and deformity, Skin: Negative for injury, rash, and discoloration, Neuro: Negative for headache, weakness, numbness, tingling, and seizure. Exam: 16:50 Constitutional: This is a well developed, well nourished patient who is awake, alert, rn appears anxious Head/Face: Normocephalic, atraumatic. Eyes: Pupils equal round and reactive to light, extra-ocular motions intact. Lids and lashes normal. Conjunctiva and sclera are non-icteric and not injected. Cornea within normal limits. Periorbital areas with no swelling, redness, or edema. Cardiovascular: Regular rate and rhythm with a normal S1 and S2. No gallops, murmurs, or rubs. Normal PMI, no JVD. No pulse deficits. Respiratory: mild tachypnea with diminished breath sounds at bases Abdomen/GI: soft, non-tender MS/ Extremity: Pulses equal, no cyanosis. Neurovascular intact. Full, normal range of motion. Equal circumference. Neuro: Awake and alert, GCS 15, oriented to person, place, time, and situation. Cranial nerves II-XII grossly intact. Motor strength 5/5 in all extremities. Sensory grossly intact. Vital Signs: 16:28 BP 201 / 117; Pulse 97; Resp 22; Temp 98.4; Pulse Ox 97% ; Pain 8/10; sv 17:08 BP 181 / 105; Pulse 89; Resp 24; Pulse Ox 100% on 2 lpm NC; sv 19:15 BP 167 / 101; Pulse 88; Resp 20; Pulse Ox 98% on R/A; Pain 7/10; lp1 19:43 BP 152 / 99; Pulse 80; Resp 15; Pulse Ox 99% on R/A; lp1 MDM: 16:33 Patient medically screened. rn 17:37 Differential diagnosis: acute myocardial infarction, acute pericarditis, anxiety, chest rn wall pain, congestive heart failure costochondritis, esophagitis, gastritis, pneumonia, pneumothorax, stable angina, unstable angina. Data reviewed: vital signs, nurses notes, lab test result(s), EKG, radiologic studies, plain films, and as a result, I will admit patient. Counseling: I had a detailed discussion with the patient and/or guardian regarding: the historical points, exam findings, and any diagnostic results supporting the discharge/admit diagnosis, lab results, radiology results, the need for further work-up and treatment in the hospital. Response to treatment: the patient's symptoms have mildly improved after treatment, and as a result, I will admit patient. Admission orders: after a detailed discussion of the patient's condition and case, the admit orders are written by me. ED course: Admitted to Dr. Rich for chest pain, extremely hypertensive, cxr clear, improved with nitro paste and demerol, trop neg. . 07/21 16:35 Order name: Basic Metabolic Panel rn 07/21 16:35 Order name: CBC with Diff rn 07/21 16:35 Order name: NT PRO-BNP rn 07/21 16:35 Order name: Troponin (emerg Dept Use Only); Complete Time: 17:30 07/21 16:35 Order name: Basic Metabolic Panel; Complete Time: 17:30 EDMS 07/21 16:35 Order name: CBC with Automated Diff; Complete Time: 17:35 EDMS 07/21 16:35 Order name: XRAY Chest (1 view); Complete Time: 17:12 07/21 16:35 Order name: EKG; Complete Time: 16:36 rn 07/21 16:35 Order name: Cardiac monitoring; Complete Time: 16:44 rn 07/21 16:36 Order name: NT PRO-BNP; Complete Time: 17:30 EDMS 07/21 16:35 Order name: EKG - Nurse/Tech; Complete Time: 16:44 rn 07/21 16:35 Order name: IV Saline Lock; Complete Time: 16:45 rn 07/21 16:35 Order name: Labs collected and sent; Complete Time: 16:44 rn 07/21 16:35 Order name: O2 Per Protocol; Complete Time: 16:44 rn 07/21 16:35 Order name: O2 Sat Monitoring; Complete Time: 16:44 rn Administered Medications: 16:44 Drug: Nitro-Bid Ointment 2 % 1 inches Route: Transdermal; Site: anterior chest wall; sv 16:44 Drug: Phenergan 25 mg Route: IM; Site: right deltoid; sv 17:15 Follow up: Response: No adverse reaction sv 17:15 Drug: Demerol 50 mg Route: IVP; Site: right forearm; sv 17:40 Follow up: Response: No adverse reaction; Pain is decreased sg 19:00 Drug: Demerol 50 mg Route: IVP; Site: right wrist; sg 19:53 Follow up: Response: Pain is decreased lp1 Disposition: 07/21/18 17:39 Hospitalization ordered by Kat Rich for Inpatient Admission. Preliminary diagnosis is Chest pain, unspecified. - Bed requested for Telemetry/MedSurg (observation). - Status is Inpatient Admission. lp1 - Condition is Stable. - Problem is new. - Symptoms have improved. UTI on Admission? No Signatures: Dispatcher [employer] [facility] Key Mitchell RN Nara Rod RN Kuldeep Leggett RN RN sg Peng Mitchell MD MD rn Pena, Laura, RN RN lp1 Corrections: (The following items were deleted from the chart) 18:07 17:39 Hospitalization Ordered by Kat Rich MD for Inpatient Admission. Preliminary diagnosis is Chest pain, unspecified. Bed requested for Telemetry/MedSurg (observation). Status is Inpatient Admission. Condition is Stable. Problem is new. Symptoms have improved. UTI on Admission? No. rn 20:01 18:07 07/21/2018 17:39 Hospitalization Ordered by Kat Rich MD for Inpatient lp1 Admission. Preliminary diagnosis is Chest pain, unspecified. Bed requested for Telemetry/MedSurg (observation). Status is Inpatient Admission. Condition is Stable. Problem is new. Symptoms have improved. UTI on Admission? No. dw
--- NOTE | 2018-07-21 17:39 | ER ---
Nurse's Notes [facility] Name: Blayne Macias Age: 57 yrs Sex: Male : 1960 Arrival Date: 07/21/2018 Time: 16:33 Bed 2 Private MD: Diagnosis: Chest pain, unspecified Presentation: 07/21 16:25 Presenting complaint: EMS states: substernal chest pain x 2 days, dyspnea. BP 230/120, sv 20G R FA, ASA 324 mg PO given then pt vomited, Zofran 4 mg IVP given. Transition of care: patient was not received from another setting of care. Onset of symptoms was July 19, 2018. Risk Assessment: Do you want to hurt yourself or someone else? Patient reports no desire to harm self or others. Initial Sepsis Screen: Does the patient meet any 2 criteria? No. Patient's initial sepsis screen is negative. Does the patient have a suspected source of infection? No. Patient's initial sepsis screen is negative. Care prior to arrival: IV initiated. 20 GA, in the right forearm, Oxygen administered. via nasal cannula. 16:25 Method Of Arrival: EMS: [facility] sv 16:25 Acuity: SENTHIL 2 sv Triage Assessment: 16:25 General: Appears uncomfortable, well developed, Behavior is cooperative, anxious. Pain: sv Complains of pain in mid-sternal area Pain currently is 8 out of 10 on a pain scale. Quality of pain is described as stabbing, Pain began 2-3 days ago. Is continuous. EENT: No signs and/or symptoms were reported regarding the EENT system. Neuro: Level of Consciousness is awake, alert, obeys commands, Oriented to person, place, time, situation, Moves all extremities. Full function Speech is normal. Cardiovascular: Reports nausea, shortness of breath, Patient's skin is warm and dry. Rhythm is sinus rhythm Chest pain is denied. Respiratory: Respiratory effort is even, unlabored, Respiratory pattern is regular, symmetrical. GI: Reports nausea, vomiting. : No signs and/or symptoms were reported regarding the genitourinary system. Derm: Skin is pink, warm \T\ dry. Musculoskeletal: No signs and/or symptoms reported regarding the musculoskeletal system. Historical: - Allergies: 16:37 Codeine; sv 16:37 PENICILLINS; sv - Home Meds: 19:18 amiodarone 200 mg Oral tab 0.5 tab 2 times per day [Active]; amitriptyline 50 mg Oral lp1 tab 1 tab once daily [Active]; aspirin 81 mg Oral chew 1 tab once daily [Active]; carvedilol 25 mg Oral tab 0.5 tab 2 times per day [Active]; clonidine HCl 0.3 mg Oral tab 1 tab 2 times per day [Active]; hydrochlorothiazide 12.5 mg Oral tab 1 tab once daily [Active]; isosorbide mononitrate 60 mg Oral Tb24 [Active]; Lasix 40 mg Oral tab 1 tab once daily [Active]; lisinopril 5 mg Oral tab once daily [Active]; lithium carbonate 300 mg Oral cap 1 cap 3 times per day [Active]; Norvasc 10 mg Oral tab once daily [Active]; ProAir HFA 90 mcg/actuation inhalation HFAA [Active]; simvastatin 40 mg Oral tab 1 tab once daily [Active]; Symbicort 160-4.5 mcg/actuation inhalation HFAA 2 puffs 2 times per day [Active]; - PMHx: 16:37 Atrial Fib; Back pain; Bipolar disorder; CAD; CHF; chronic back pain; COPD; High sv Cholesterol; Hypertension; Pneumonia; - PSHx: 16:37 pain stimulator to back, neck surgery; CABG; sv - Immunization history:: Adult Immunizations up to date. - Social history:: Smoking status: Patient/guardian denies using tobacco. - Family history:: not pertinent. - Ebola Screening: : Patient negative for fever greater than or equal to 101.5 degrees Fahrenheit, and additional compatible Ebola Virus Disease symptoms Patient denies exposure to infectious person Patient denies travel to an Ebola-affected area in the 21 days before illness onset No symptoms or risks identified at this time. - Hospitalizations: : No recent hospitalization is reported. Screenin:30 Abuse screen: Denies threats or abuse. Denies injuries from another. Nutritional sv screening: No deficits noted. Tuberculosis screening: No symptoms or risk factors identified. Fall Risk None identified. Assessment: 17:15 Reassessment: Patient appears in no apparent distress at this time. No changes from sv previously documented assessment. Patient and/or family updated on plan of care and expected duration. Pain level reassessed. Patient is alert, oriented x 3, equal unlabored respirations, skin warm/dry/pink. 19:00 Reassessment: pt reports CP has returned at this time, pt states the pain is similar to sg the pain experienced eariler upon arrival to the dept. notified, new orders received, pt medicated as ordered see EMAR. Cardiovascular: Capillary refill is brisk in bilateral fingers Patient's skin is warm and dry. Chest pain. Respiratory: Respiratory effort is even, unlabored. Derm: Skin is pink, warm \T\ dry. 19:14 Reassessment: Patient aware of pending admission. Pain: Pain currently is 7 out of 10 lp1 on a pain scale. Cardiovascular: Reports chest pain. Respiratory: Respiratory effort is even, unlabored. Derm: Skin is pink, warm \T\ dry. Vital Signs: 16:28 BP 201 / 117; Pulse 97; Resp 22; Temp 98.4; Pulse Ox 97% ; Pain 8/10; sv 17:08 BP 181 / 105; Pulse 89; Resp 24; Pulse Ox 100% on 2 lpm NC; sv 19:15 BP 167 / 101; Pulse 88; Resp 20; Pulse Ox 98% on R/A; Pain 7/10; lp1 19:43 BP 152 / 99; Pulse 80; Resp 15; Pulse Ox 99% on R/A; lp1 ED Course: 16:25 Maintain EMS IV. Dressing intact. Good blood return noted. Site clean \T\ dry. Gauge \T\ sv site: 20G R FA. 16:30 Initial lab(s) drawn, by me, sent to lab. sv 16:30 Patient has correct armband on for positive identification. Placed in gown. Bed in low sv position. Call light in reach. Side rails up X2. monitor and storage bin tender on. Pulse ox on. NIBP on. Door closed. Warm blanket given. Head of bed elevated. 16:33 Patient arrived in ED. ss 16:33 Peng Mitchell MD is Attending Physician. rn 16:33 Key Mitchell, DIANA is Primary Nurse. sv 16:35 Triage completed. sv 16:39 EKG done, by technician trainee. reviewed by Peng Mitchell MD. sm3 17:00 XRAY Chest (1 view) In Process Unspecified. EDMS 17:19 Awaiting lab results. sv 17:19 Basic Metabolic Panel Sent. sv 17:19 CBC with Diff Sent. sv 17:20 NT PRO-BNP Sent. sv 17:38 Kat Rich MD is Hospitalizing Provider. rn 17:40 No provider procedures requiring assistance completed. sg 17:40 Arm band placed on. sg 19:00 Patient admitted, IV remains in place. intact, No redness/swelling at site. sg 19:19 Report given to Roselia RN and Zee RN. sv 19:20 Primary Nurse role handed off by Key Mitchell RN sv 19:41 Roselia Joshi, RN is Primary Nurse. lp1 Administered Medications: 16:44 Drug: Nitro-Bid Ointment 2 % 1 inches Route: Transdermal; Site: anterior chest wall; sv 16:44 Drug: Phenergan 25 mg Route: IM; Site: right deltoid; sv 17:15 Follow up: Response: No adverse reaction sv 17:15 Drug: Demerol 50 mg Route: IVP; Site: right forearm; sv 17:40 Follow up: Response: No adverse reaction; Pain is decreased sg 19:00 Drug: Demerol 50 mg Route: IVP; Site: right wrist; sg 19:53 Follow up: Response: Pain is decreased lp1 Outcome: 17:39 Decision to Hospitalize by Provider. rn 19:14 Condition: stable lp1 19:14 Instructed on the need for admit. 19:50 Admitted to Tele via wheelchair, room 423, with chart, Report called to DIANA Pfeiffer lp1 20:01 Patient left the ED. lp1 Signatures: Dispatcher [employer] EDMS Key Mitchell RN RN sv Gay, Steven, RN RN sg Nieto, Roman, MD MD rn Smirch, Shelby, RN RN Roselia Joshi RN RN lp1 Nga Lala 3 Corrections: (The following items were deleted from the chart) 17:18 16:25 GI: No signs and/or symptoms were reported involving the gastrointestinal system. sv sv 17:30 16:25 Cardiovascular: Reports palpitations, intermittently Patient's skin is warm and sv dry. Rhythm is sinus rhythm Chest pain is denied sv
--- NOTE | 2018-07-21 18:05 | P.HP ---
Certification for Inpatient Patient admitted to: Observation With expected LOS: <2 Midnights Patient will require the following post-hospital care: None Practitioner: I am a practitioner with admitting privileges, knowledge of patient current condition, hospital course, and medical plan of care. Services: Services provided to patient in accordance with Admission requirements found in Title 42 Section 412.3 of the Code of Federal Regulations Patient History Date of Service: 07/21/18 Primary Care Provider: Dr Ruby Reason for admission: Chest pain History of Present Illness: Patient is a 57-year-old gentleman past medical history of hypertension, diabetes, tobacco smoker, COPD, recurrent chest pain who presented to the ED complaining of having pain in his sternal region. He said pain radiated to his left arm to his neck. He has had recent cardiac catheterization which was negative for any acute findings in 2018. Patient stated that he has bypass in the past with to bypass graft. Pain is 8/10. Patient also has chronic back pain and has a electronic stimulator implanted. Patient states that he usually requires heavy doses of pain medication even despite having past electronic stimulator in place. No other complaints to offer at this time has been noncompliant with medication in the past. Was admitted recently for similar symptoms and left AMA without being seen by cardiology at that time. Allergies Penicillins Allergy (Intermediate, Verified 10/12/16 19:58) Hives/Rash codeine [From Tylenol-Codeine] Allergy (Verified 10/12/16 19:58) Itching Home Medications: Aspirin 81 mg PO DAILY 11/21/17 Amitriptyline [Elavil] 50 mg PO BEDTIME PRN 06/10/18 Amlodipine [Norvasc*] 10 mg PO BID 06/10/18 Carvedilol [Coreg*] 25 mg PO BID 6AM 6PM 06/10/18 Gabapentin [Neurontin*] 800 mg PO Q8HR 06/10/18 Hydrocodone 10/APAP 325 [[place] 10/325] 1 tab PO Q8H PRN 06/10/18 Lisinopril [Prinivil*] 40 mg PO BID 06/10/18 [place] Carbonate [Lithotabs 300MG] 600 mg PO BEDTIME 06/10/18 - Past Medical/Surgical History Diabetic: No -: Chronic back pain, Pain management-Dr. Connolly -: HTN -: CAD, CABG times 2 vessels in December 2015 -: COPD -: Exposure to asbestosis -: Bipolar disorder -: Hyperlipidemia -: Severe sleep apnea -: Chronic pain syndrome -: Right Leg surgery -: Back surgery -: Cholecystectomy -: Cardiac catheterization -: CABG- Double bypass 12/2015 -: Neck Surgery Psychosocial/ Personal History: Single, Children-1, Work-Disabled due to back. - Family History Mother -: Cancer Father -: Heart disease, Cancer - Social History Alcohol use: No CD- Drugs: No Caffeine use: No Review of Systems 10-point ROS is otherwise unremarkable Physical Examination - Physical Exam General: Alert, In no apparent distress HEENT: Atraumatic, PERRLA, Mucous membr. moist/pink, EOMI, Sclerae nonicteric Neck: Supple, 2+ carotid pulse no bruit, No LAD, Without JVD or thyroid abnormality Respiratory: Clear to auscultation bilaterally, Normal air movement Cardiovascular: Regular rate/rhythm, Normal S1 S2 Gastrointestinal: Normal bowel sounds, No tenderness Musculoskeletal: No tenderness Integumentary: No rashes Neurological: Normal gait, Normal speech, Normal strength at 5/5 x4 extr, Normal tone, Normal affect Lymphatics: No axilla or inguinal lymphadenopathy - Studies Laboratory Data (last 24 hrs) 07/21/18 16:30: WBC 9.1, Hgb 13.9, Hct 41.3, Plt Count 232 07/21/18 16:30: Sodium 140, Potassium 3.4 L, BUN 12, Creatinine 1.00, Glucose 137 H Assessment and Plan - Problems (Diagnosis) (1) Chest pain Onset Date: 01/20/16 Current Visit: No Status: Acute Plan: Chest pain atypical. Troponin x1 negative in the ER. EKG with no significant changes -will repeat troponin x2 here in the hospital. -will get cardiology consulted and from stress test here in the hospital -most likely secondary to noncompliance with high blood pressure causing demand ischemia -ACS protocol with ACS medication Qualifiers: Chest pain type: unspecified (2) Poorly-controlled hypertension Onset Date: 11/01/15 Current Visit: No Status: Chronic Plan: Chronic poorly controlled high blood pressure due to noncompliance with medication. Would restart with home medication here in the hospital (3) Atrial fibrillation Onset Date: 10/13/16 Current Visit: No Status: Chronic Plan: Will restart home medication while here in the hospital Qualifiers: Atrial fibrillation type: chronic (4) Back pain Onset Date: 10/13/16 Current Visit: No Status: Chronic Plan: Patient with chronic back pain and has a electronic stimulator in place in the back. Patient educated extensively on the use of narcotics here in the hospital. Qualifiers: Back pain location: back pain in unspecified location Chronicity: chronic Back pain laterality: midline Qualified Code(s): M54.9 - Dorsalgia, unspecified; G89.29 - Other chronic pain (5) Bipolar 1 disorder Onset Date: 10/13/16 Current Visit: No Status: Chronic Plan: Will restart home medication while here in the hospital (6) CAD (coronary artery disease) Onset Date: 01/20/16 Current Visit: No Status: Chronic Plan: History of to bypass graft in the past. Recent coronary artery angiogram done in 2018 at [facility] which was negative for any acute findings. Will restart home medication at this time and get cardiology consult. Qualifiers: Coronary Disease-Associated Artery/Lesion type: [place] artery [place] vs. transplanted heart: [place] heart Associated angina: with stable angina Qualified Code(s): I25.118 - Atherosclerotic heart disease of [place] coronary artery with other forms of angina pectoris (7) COPD (chronic obstructive pulmonary disease) Onset Date: 01/20/16 Current Visit: No Status: Chronic Plan: Currently stable at this time. Qualifiers: COPD type: unspecified COPD Qualified Code(s): J44.9 - Chronic obstructive pulmonary disease, unspecified (8) Hyperlipidemia Onset Date: 10/13/16 Current Visit: No Status: Chronic Plan: Will restart home medication while here in the hospital Qualifiers: (9) BRIAN (obstructive sleep apnea) Onset Date: 10/13/16 Current Visit: No Status: Chronic (10) Tobacco abuse Onset Date: 12/03/14 Current Visit: No Status: Chronic Plan: Indicated extensively on tobacco abuse at this time. Patient not receptive to therapy Discharge Plan: Home Plan to discharge in: 48 Hours - Advance Directives Does patient have a Living Will: Yes Does patient have a Durable POA for Healthcare: Yes - Code Status/Comfort Care Code Status Assessed: Yes Critical Care: No
[2018-07-21] MEDS ORDERED: ACETAMINOPHEN 500 MG TAB PO PRN (20:24)
[2018-07-21] MEDS ORDERED: ONDANSETRON 4 MG/2 ML VIAL IV PRN (20:24)
[2018-07-21 20:41] VITALS: BMI 25.2
[2018-07-21] MEDS: INSULIN -REGULAR HUMAN 50 UNIT/0.5 ML ML SQ SCH (21:00)
[2018-07-21] MEDS ORDERED: METOPROLOL TARTRATE 5 MG/5 ML INJ IV STA (21:46)
[2018-07-21] MEDS ORDERED: METOPROLOL TAR 50 MG TAB PO ONE (21:46)
[2018-07-21] MEDS: MORPHINE 4 MG/ML SYR IV PRN (22:19)
--- NOTE | 2018-07-21 22:27 | EKG ---
Test Date: 2018-07-21 Test Time: 16:30:35 Zipper Repairer: VELASQUEZ MEASUREMENT RESULTS: Intervals: Rate: 109 LA: 164 QRSD: 108 QT: 354 QTc: 476 [place]: P: 82 LA: 164 QRS: 41 T: 17 INTERPRETIVE STATEMENTS: Sinus tachycardia Septal infarct, age undetermined Abnormal ECG Compared to ECG 06/10/2018 10:03:29 Sinus rhythm no longer present ST (T wave) deviation no longer present Possible ischemia no longer present Myocardial infarct finding still present Electronically Signed On 07-21-18 22:26:25 CDT by Bijan Woods
[2018-07-22] MEDS: MORPHINE 4 MG/ML SYR IV PRN ×2 (02:10→11:27)
[2018-07-22 05:16] LABS: Absolute Lymphocytes (CBC) 2.9 K/uL (0.7-4.9); Absolute Neutrophil 5.6 K/uL (1.8-8.0); Basophils % 0.6 % (0-1.3); Eosinophils % 2.2 % (0-4.4); Hematocrit 39.5 % (39.6-49.0); Lymphocytes % 29.4 % (15.3-44.8); MCH 30.8 pg (27.0-35.0); MCV 89.9 fL (80-100); MPV 10.3 fL (7.6-11.3); Monocytes % 10.2 % (3.3-12.3)
[2018-07-22 05:57] LABS: Albumin 3.1 g/dL (3.4-5.0); Bilirubin Total 0.7 mg/dL (0.2-1.0); Potassium 3.6 mmol/L (3.5-5.1); Protein, Total 7.1 g/dL (6.4-8.2)
[2018-07-22] MEDS ORDERED: METOPROLOL TAR 25 MG TAB PO SCH (06:00)
[2018-07-22] MEDS: INSULIN -REGULAR HUMAN 50 UNIT/0.5 ML ML SQ SCH ×2 (07:30→11:30)
[2018-07-22] MEDS ORDERED: INFLUENZA VACCINE (for 3y+) 0.5 ML DOSE IMVAC ONE (08:00)
[2018-07-22 08:03] VITALS: TEMP 97.5
[2018-07-22] MEDS ORDERED: REGADENOSON 0.4 MG/5 ML SYR IV ONE (08:08)
[2018-07-22] MEDS ORDERED: POTASSIUM CL SA 10 MEQ TAB PO ONE (09:00)
[2018-07-22] MEDS ORDERED: ENOXAPARIN 40 MG/0.4 ML SQ SCH (09:00)
[2018-07-22 10:18] VITALS: O2SAT 95
--- NOTE | 2018-07-22 11:39 | RAD REPORT ---
EXAM DESCRIPTION: NM - Rest Stress Cardiac Imaging - 07/22/2018 11:25 am CLINICAL HISTORY: Chest pain COMPARISON: Rest stress cardiac imaging October 2015 TECHNIQUE: The patient was administered 10.1 mCi of Tc 99m Sestamibi prior to resting SPECT imaging of the heart. The patient was then administered 29.8 mCi of Tc 99m Sestamibi following exercise or ph armacologic stress. Multiplanar SPECT images were reviewed. FINDINGS: The end diastolic volume is 120 ml, the end systolic volume is 60 ml, and the ejection fra ction is 50 %. Ventricular volume values are similar to the prior study. Ejection fraction was 41% on the 2016 study. No stress-induced ischemia is confirmed on this examination. Moderate-sized fixed defect is seen gilberto g the length of the anterior wall not clearly different between rest and stress imaging. Inferior wal l apical fixed defect is also identifiable. The stress ischemic findings seen in 2016 is not clearly evident on the current study. IMPRESSION: No stress-induced ischemia confirmed on this study. Anterior and inferior wall fixed defects are not clearly different between the rest and stress sequen cing. End-diastolic ventricular volume is slightly enlarged at 1:00 20 milliliters but not substantially di fferent from 2016. Ejection fraction of 50% is increased compared to the 41% value calculated in 2016 .
[2018-07-22 11:50] VITALS: BP 173/101
[2018-07-22] MEDS ORDERED: LISINOPRIL 20 MG TAB PO SCH ×2 (12:00→21:00)
[2018-07-22] MEDS ORDERED: AMLODIPINE 10 MG TAB PO SCH (12:00)
[2018-07-22] MEDS ORDERED: HYDROCODONE/APAP 10/325 TAB PO PRN (13:07)
[2018-07-22] MEDS ORDERED: AMITRIPTYLINE 50 MG TAB PO PRN (13:07)
--- NOTE | 2018-07-22 14:13 | CON ---
Chief Complaint: Chest pain. History Of Present Illness: The patient has had chest pain since Wednesday, so now at least 3 days. T he pain is very much a part of movement of the chest wall. When he takes a deep breath or lies in a certain way, it hurts more. A position midway between flat and upright is comfortable for him. Any other positions increase the amount of pain. He has chronic back pain, but he has electronic stimula tor implanted. He has had numerous back surgeries. He was a cigarette smoker, but quit in February. He had bypass surgery in March 2016. Since he has been in the hospital, myocardial infarction was ruled out with serial enzymes and EKGs. Physical Examination: Vital signs: Five feet and 9 inches, 170 pounds. General: Alert, oriented, pleasant. He seems to be in distress, but mostly when he moves in a certa in way. Lungs: Clear. HEART: Within normal limits. I do not hear a friction rub. Abdomen: Soft. EXTREMITIES: Normal. Laboratory Data: His EKG shows sinus tach with a septal infarct, and all of his troponins are less t siegel 0.02. I believe the patient is having pain from the back that is causing chest pain because it is in the up per part of the back. A nuclear stress test is underway, hopefully that will be good. If it shows a n abnormality, we will do a cardiac cath. I think this is a non-coronary artery-type chest pain. ROXIE/REINA Voice ID: [id number] Report ID: [id number]
--- NOTE | 2018-07-22 14:42 | TREADPHA ---
DX: CHEST PAIN Date of Study: 07/22/18 Ht: 5 9 Wt: 170 lb 9.6 oz Consulting Physician: AARON MEDICATIONS: HISTORY: 57 YEAR OLD MALE WITH COMPLAINTS OF CHEST PAIN. MEDICAL HISTORY OF ATRIAL FIBRILLATION, BIPOLAR DISORDER, CORONARY ARTERY DISEASE, CONGESTIVE HEART FAILURE, HYPERTENSION, FORMER SMOKER, HIGH CHOLESTEROL, CORONARY ARTERY BYPASS GRAFT 2015. PHYSICIAL EXAMINATION: RESTING B.P.: 174/97 RESTING H.R.: 64 RESTING EKG: SINUS, ANTERIOR MYOCARDIAL INFARCTION. NORMAL ST. PROTOCOL: L[place] EXERCISE TIME: 3:30 B.P. AT PEAK STRESS: 167/99 IMPRESSION: LEXISCAN INJECTED, CARDIOLITE INJECTED PER PROTOCOL, SEE NUCLEAR MEDICINE REPORT. NO SUPRA VENTRICULAR TACHYCARDIA. NO VENTRICULAR TACHYCARDIA. NO PREMATURE VENTRICULAR COMPLEXES. CHEST PAIN 7/10 ON PAIN SCALE PRIOR INJECTION, INCREASED TO 8/10 AFTER INJECTION, 7/10 IN RECOVERY (CHEST PAIN). NON DIAGNOSTIC EKG WITH LEXISCAN STRESS.
--- NOTE | 2018-07-22 15:11 | P.SSS ---
Patient History Date of Service: 07/22/18 Primary Care Provider: Dr Ruby Reason for admission: Chest pain History of Present Illness: Patient is a 57-year-old gentleman past medical history of hypertension, diabetes, tobacco smoker, COPD, recurrent chest pain who presented to the ED complaining of having pain in his sternal region. He said pain radiated to his left arm to his neck. He has had recent cardiac catheterization which was negative for any acute findings in 2018. Patient stated that he has bypass in the past with to bypass graft. Pain is 8/10. Patient also has chronic back pain and has a electronic stimulator implanted. Patient states that he usually requires heavy doses of pain medication even despite having past electronic stimulator in place. No other complaints to offer at this time has been noncompliant with medication in the past. Was admitted recently for similar symptoms and left AMA without being seen by cardiology at that time. Allergies Penicillins Allergy (Intermediate, Verified 10/12/16 19:58) Hives/Rash codeine [From Tylenol-Codeine] Allergy (Verified 10/12/16 19:58) Itching Home Medications: Aspirin 81 mg PO DAILY 11/21/17 Amitriptyline [Elavil*] 50 mg PO BEDTIME PRN 06/10/18 Amlodipine [Norvasc*] 10 mg PO BID 06/10/18 Carvedilol [Coreg*] 25 mg PO BID 6AM 6PM 06/10/18 Gabapentin [Neurontin*] 800 mg PO Q8HR 06/10/18 Hydrocodone 10/APAP 325 [[place] 10/325*] 1 tab PO Q8H PRN 06/10/18 Lisinopril [Prinivil*] 40 mg PO BID 06/10/18 [place] Carbonate [Lithotabs *] 600 mg PO BEDTIME 06/10/18 - Past Medical/Surgical History Has patient received pneumonia vaccine in the past: No Diabetic: No -: Chronic back pain, Pain management-Dr. Connolly -: HTN -: CAD, CABG times 2 vessels in December 2015 -: COPD -: Exposure to asbestosis -: Bipolar disorder -: Hyperlipidemia -: Severe sleep apnea -: Chronic pain syndrome -: CHF -: afib -: pneumonia -: Right Leg surgery -: Back surgery -: Cholecystectomy -: Cardiac catheterization -: CABG- Double bypass 12/2015 -: Neck Surgery Psychosocial/ Personal History: Single, Children-1, Work-Disabled due to back. - Family History Mother -: Cancer Father -: Heart disease, Cancer - Social History Smoking Status: Former smoker Alcohol use: No CD- Drugs: No Caffeine use: Yes Place of Residence: Home Review of Systems 10-point ROS is otherwise unremarkable Physical Examination - Vital Signs Temperature: 97.5 F Blood Pressure: 173/101 Pulse: 81 Respirations: 18 Pulse Ox (%): 95 - Physical Exam General: Alert, In no apparent distress HEENT: Atraumatic, PERRLA, Mucous membr. moist/pink, EOMI, Sclerae nonicteric Neck: Supple, 2+ carotid pulse no bruit, No LAD, Without JVD or thyroid abnormality Respiratory: Clear to auscultation bilaterally, Normal air movement Cardiovascular: Regular rate/rhythm, Normal S1 S2 Gastrointestinal: Normal bowel sounds, No tenderness Musculoskeletal: No tenderness Integumentary: No rashes Neurological: Normal gait, Normal speech, Normal strength at 5/5 x4 extr, Normal tone, Normal affect Lymphatics: No axilla or inguinal lymphadenopathy - Studies Laboratory Data (last 24 hrs) 07/21/18 16:30: WBC 9.1, Hgb 13.9, Hct 41.3, Plt Count 232 07/21/18 16:30: Sodium 140, Potassium 3.4 L, BUN 12, Creatinine 1.00, Glucose 137 H - Diagnosis (Problem(s)) (1) Chest pain Onset Date: 01/20/16 Current Visit: No Status: Resolved Qualifiers: Chest pain type: unspecified (2) Poorly-controlled hypertension Onset Date: 11/01/15 Current Visit: No Status: Chronic (3) Atrial fibrillation Onset Date: 10/13/16 Current Visit: No Status: Chronic Qualifiers: Atrial fibrillation type: chronic (4) Back pain Onset Date: 10/13/16 Current Visit: No Status: Chronic Qualifiers: Back pain location: back pain in unspecified location Chronicity: chronic Back pain laterality: midline Qualified Code(s): M54.9 - Dorsalgia, unspecified; G89.29 - Other chronic pain (5) Bipolar 1 disorder Onset Date: 10/13/16 Current Visit: No Status: Chronic (6) CAD (coronary artery disease) Onset Date: 01/20/16 Current Visit: No Status: Chronic Qualifiers: Coronary Disease-Associated Artery/Lesion type: [place] artery [place] vs. transplanted heart: [place] heart Associated angina: with stable angina Qualified Code(s): I25.118 - Atherosclerotic heart disease of [place] coronary artery with other forms of angina pectoris (7) COPD (chronic obstructive pulmonary disease) Onset Date: 01/20/16 Current Visit: No Status: Chronic Qualifiers: COPD type: unspecified COPD Qualified Code(s): J44.9 - Chronic obstructive pulmonary disease, unspecified (8) Hyperlipidemia Onset Date: 10/13/16 Current Visit: No Status: Chronic Qualifiers: (9) BRIAN (obstructive sleep apnea) Onset Date: 10/13/16 Current Visit: No Status: Chronic (10) Tobacco abuse Onset Date: 12/03/14 Current Visit: No Status: Chronic Plan: Indicated extensively on tobacco abuse at this time. Patient not receptive to therapy Treatment Summary: Patient was initially admitted to the hospital for chest pain ACS rule out. Patient has stress test done here in the hospital which was negative for any acute abnormality and acute ischemia. Cardiology was consulted who recommended the patient to be discharged home under stable condition. Patient was notified of the test results and was discharged home under stable condition was asked to continue taking all the medication as prescribed. Compliance with medication diet and exercise were noted at discharge with patient. - Disposition Disposition: ROUTINE DISCHARGE Condition: GOOD Patient Discharge Instructions: Please f.u with PCP and Cardiology in 1 to 2 week post discharge. No New changes to medicaiton Diet: Regular Activity: Ad nas
[2018-07-22] MEDS ORDERED: GABAPENTIN 400 MG CAP PO SCH (17:00)
[2018-07-22] MEDS ORDERED: CARVEDILOL 25 MG TAB PO SCH ×2 (18:00)
[2018-07-22] MEDS ORDERED: AMLODIPINE 5 MG TAB PO SCH (21:00)
[2018-07-22] MEDS ORDERED: LITHIUM CARBONATE 300 MG TAB PO SCH (21:00)
[2018-07-23] MEDS ORDERED: ASPIRIN 81 MG CHEWABLE TABLET PO SCH (09:00)
== END 2018-07-22 15:41 | disposition home or self-care (01) ==
LOC: ER 16:29 → ERHOLD 17:40 → 4TH 19:28
PROVIDERS: ADMIT Family Medicine; ATTEND Family Medicine
DX: R07.89 Other chest pain (principal); I10 Essential (primary) hypertension; E11.9 Type 2 diabetes mellitus without complications; J44.9 Chronic obstructive pulmonary disease, unspecified; I25.10 Atherosclerotic heart disease of native coronary artery without angina pectoris; F31.9 Bipolar disorder, unspecified; E78.5 Hyperlipidemia, unspecified; I48.91 Unspecified atrial fibrillation; M54.9 Dorsalgia, unspecified; G47.33 Obstructive sleep apnea (adult) (pediatric); F17.210 Nicotine dependence, cigarettes, uncomplicated; Z95.1 Presence of aortocoronary bypass graft; Z79.82 Long term (current) use of aspirin; Z88.0 Allergy status to penicillin
CPT/HCPCS: 36415; 71045; 78452; 80048; 80053; 82962 ×3; 83880; 84484 ×4; 85025 ×2; 93005; 93017; 96372; 99285; A9500; G0378 ×2; J1650; J2175 ×2; J2550; J2785

== ENCOUNTER 2019-03-31 13:53 | Emergency (ER) | payer OTHER ==
--- OUTSIDE RECORDS SUMMARY | 2019-03-31 13:58 | XMS REPORT | Clinical Summary ---
:1960 Author Organization [facility] Address [address] [place] [address] Care Team Providers Name Role Phone Sanjay Primary Care Provider Wilfrido Boyle Unavailable Allergies Active Allergy Reactions Severity Noted Date Comments Codeine Hives 05/08/2018 Penicillins 01/22/2016 Medications Medication Sig Dispensed Refills Start Date End Date Status amitriptyline Take 50 mg by 0 Active (ELAVIL) 50 MG mouth nightly. tablet DULoxetine Take 60 mg by 0 Active (CYMBALTA) 60 MG mouth daily. capsule vitamin E 200 UNIT Take 200 Units 0 Active capsule by mouth daily. methocarbamol Take 750 mg by 0 Active (ROBAXIN) 750 MG mouth 4 (four) tablet times daily. carvedilol (COREG) Take 1 tablet 60 tablet 0 01/28/2016 Active 25 MG tablet (25 mg total) by mouth 2 (two) times daily with breakfast and dinner. lithium 300 MG Take 300 mg by 0 Active capsule mouth 2 (two) times daily with breakfast and dinner. amLODIPine Take 10 mg by 0 Active (NORVASC) 10 MG mouth daily. tablet lisinopril Take 20 mg by 0 Active (PRINIVIL,ZESTRIL) mouth daily . 40 MG tablet aspirin 81 MG Take 1 tablet 30 tablet 0 05/12/2018 Active chewable tablet (81 mg total) by mouth daily. albuterol HFA Inhale 1 puff by 0 Active (VENTOLIN HFA) 90 mouth via mcg/actuation inhaler every 6 inhaler (six) hours as needed for Wheezing. mometasone-formoter Inhale 2 puffs 0 Active ol (DULERA) 100-5 by mouth via mcg/actuation inhaler 2 (two) inhaler times daily. HYDROcodone-acetami Take 1 tablet by 0 Active nophen (NORCO mouth every 6 10-325) [...] simvastatin for cholesterol. nitroglycerin Place 0.4 mg 0 Discontinued (NITROSTAT) 0.4 MG under the tongue [...] Date Hypertensive emergency 05/13/2018 Acute kidney injury 05/13/2018 Diarrhea 05/13/2018 Transaminitis 05/13/2018 Hepatitis C virus infection without hepatic coma 05/13/2018 Chest pain 05/09/2018 Syncope 05/09/2018 Paroxysmal atrial fibrillation 05/09/2018 COPD (chronic obstructive pulmonary disease) 05/09/2018 CAD (coronary artery disease) 01/22/2016 Resolved Problems Problem Noted Date Resolved Date Atherosclerosis of assiniboine and sioux coronary artery with unstable 01/23/2016 05/09/2018 angina pectoris Multi-vessel coronary artery stenosis 01/23/2016 05/09/2018 Flash pulmonary edema 01/23/2016 05/09/2018 Chronic total occlusion of coronary artery 01/23/2016 05/09/2018 Acute postoperative respiratory insufficiency 01/23/2016 05/09/2018 Postoperative anemia due to acute blood loss 01/23/2016 05/09/2018 Acute post-operative pain 01/23/2016 05/09/2018 Encounters Date Type Specialty Care Team Description 06/10/2018 Anesthesia Event Gastroenterology Mario Hsieh MD 05/08/2018 Surgery Trina Moody L CATH & CORONARY ANGIOS 05/08/2018 [facility] Cardiology Jaqui Turner Acute post-operative pain; - Encounter PBettina, Coronary artery disease involving assiniboine and sioux coronary artery of assiniboine and sioux heart with angina pectoris (HCC); 05/12/2018 Sandhya, Acute kidney injury (HCC); Arielle Ricks, Diarrhea, unspecified type; Hepatitis C virus infection without hepatic coma, unspecified chronicity; Trina Moody, Hypertensive emergency; Paroxysmal atrial fibrillation (HCC); Sebastian Gonzalez, Vasovagal syncope; Transaminitis 05/08/2018 Orders Only General Internal Medicine after 03/30/2018 Social History Tobacco Use Types Packs/Day Years Used Date Never Assessed Sex Assigned at Date Recorded Not on file Job Start Date Occupation Industry Not on file Not on file Not on file Travel History Travel Start Travel End No recent travel history available. Last Filed Vital Signs Vital Sign Reading Time Taken Blood Pressure 136/90 05/12/2018 12:11 PM CDT Pulse 83 05/12/2018 12:11 PM CDT Temperature 36.3 C (97.4 F) 05/12/2018 12:11 PM CDT Respiratory Rate 18 05/12/2018 12:11 PM CDT Oxygen Saturation 99% 05/12/2018 12:11 PM CDT Inhaled Oxygen Concentration 21% 05/12/2018 2:53 AM CDT Weight 71.8 kg (158 lb 6.4 oz) 05/12/2018 8:22 AM CDT Height 175.3 cm (5' 9") 05/11/2018 3:57 PM CDT Body Mass Index 23.39 05/12/2018 8:22 AM CDT Plan of Treatment Not on file Procedures Procedure Name Priority Date/Time Associated Comments Diagnosis RHYTHM STRIP - SCAN 02/03/2019 12:02 PM CDT RHYTHM STRIP - SCAN 02/01/2019 2:50 PM CDT VASCULAR DIAGRAM -SCAN 07/28/2018 11:20 AM CDT REPORT OF PROCEDURE - 05/13/2018 12:30 ENDOSCOPY SCAN PM CDT RHYTHM STRIP - SCAN 05/13/2018 12:30 PM CDT POCT-GLUCOSE METER Routine 05/12/2018 11:57 Results for this AM CDT procedure are in the results section. ECHOCARDIOGRAM REPORT - 05/12/2018 8:22 SCAN AM CDT POCT-GLUCOSE METER Routine 05/12/2018 7:59 Results for this AM CDT procedure are in the results section. CBC W/PLT COUNT & AUTO Routine 05/12/2018 4:15 Results for this DIFFERENTIAL AM CDT procedure are in the results section. HEPATITIS B CORE Routine 05/12/2018 4:15 Results for this ANTIBODY, IGM AM CDT procedure are in the results section. HEPATITIS B CORE Routine 05/12/2018 4:15 Results for this ANTIBODY, TOTAL AM CDT procedure are in the results section. HEPATITIS B SURFACE Routine 05/12/2018 4:15 Results for this ANTIBODY AM CDT procedure are in the results section. HEPATITIS B SURFACE Routine 05/12/2018 4:15 Results for this ANTIGEN AM CDT procedure are in the results section. HEPATITIS C ANTIBODY Routine 05/12/2018 4:15 Results for this AM CDT procedure are in the results section. HEPATIC FUNCTION PANEL Routine 05/12/2018 4:15 Results for this AM CDT procedure are in the results section. BASIC METABOLIC PANEL Routine 05/12/2018 4:15 Results for this (7) AM CDT procedure are in the results section. CBC W/PLT COUNT & AUTO Routine 05/12/2018 4:15 Results for this DIFFERENTIAL AM CDT procedure are in the results section. 2D ECHO W/ DOPPLER Today 05/11/2018 9:07 Results for this (CW/PW/COLOR) AM CDT procedure are in the results section. US ABDOMEN LIMITED Routine 05/11/2018 8:39 Results for this AM CDT procedure are in the results section. US RENAL WITH DOPPLER Routine 05/11/2018 8:39 Results for this AM CDT procedure are in the results section. CBC W/PLT COUNT & AUTO Routine 05/11/2018 3:30 Results for this DIFFERENTIAL AM CDT procedure are in the results section. PHOSPHORUS Routine 05/11/2018 3:30 Results for this AM CDT procedure are in the results section. MAGNESIUM Routine 05/11/2018 3:30 Results for this AM CDT procedure are in the results section. COMPREHENSIVE METABOLIC Routine 05/11/2018 3:30 Results for this PANEL AM CDT procedure are in the results section. CALCIUM, IONIZED Routine 05/11/2018 3:30 Results for this AM CDT procedure are in the results section. CBC W/PLT COUNT & AUTO Routine 05/11/2018 3:30 Results for this DIFFERENTIAL AM CDT procedure are in the results section. CTA CHEST,ABDOMEN & STAT 05/10/2018 6:41 Results for this PELVIS - FOR DISSECTION PM CDT procedure are in the results section. CARDIAC CATH REPORT - 05/10/2018 5:43 SCAN PM CDT US RENAL COMPLETE Routine 05/10/2018 11:15 Results for this AM CDT procedure are in the results section. CBC W/PLT COUNT & AUTO Routine 05/10/2018 5:11 Results for this DIFFERENTIAL AM CDT procedure are in the results section. B-TYPE NATRIURETIC Routine 05/10/2018 5:11 Results for this FACTOR (BNP) AM CDT procedure are in the results section. PHOSPHORUS Routine 05/10/2018 5:11 Results for this AM CDT procedure are in the results section. MAGNESIUM Routine 05/10/2018 5:11 Results for this AM CDT procedure are in the results section. COMPREHENSIVE METABOLIC Routine 05/10/2018 5:11 Results for this PANEL AM CDT procedure are in the results section. CALCIUM, IONIZED Routine 05/10/2018 5:11 Results for this AM CDT procedure are in the results section. CBC W/PLT COUNT & AUTO Routine 05/10/2018 5:11 Results for this DIFFERENTIAL AM CDT procedure are in the results section. URINALYSIS W/ Routine 05/09/2018 10:02 Results for this MICROSCOPIC PM CDT procedure are in the results section. CREATININE, RANDOM Routine 05/09/2018 9:38 Results for this URINE PM CDT procedure are in the results section. PROTEIN, RANDOM URINE Routine 05/09/2018 9:38 Results for this PM CDT procedure are in the results section. SODIUM, RANDOM URINE Routine 05/09/2018 9:38 Results for this PM CDT procedure are in the results section. EOSINOPHIL SMEAR, URINE Routine 05/09/2018 9:22 Results for this PM CDT procedure are in the results section. TRANSFUSION SERVICE 05/09/2018 5:50 REPORT - SCAN PM CDT NM LUNG SCAN PERFUSION DONAVAN 05/09/2018 11:47 Results for this PARTICULATE VENT AM CDT procedure are in the results section. XR FOOT LEFT 2 VIEW Routine 05/09/2018 10:47 Results for this AM CDT procedure are in the results section. XR ESOPH SWALLOW DONAVAN 05/09/2018 10:30 Results for this FUNCTION W/CINE VIDEO AM CDT procedure are in the results section. VENOUS DOPPLER LEGS Routine 05/09/2018 9:20 Results for this BILATERAL AM CDT procedure are in the results section. CAROTID DOPPLER Routine 05/09/2018 8:40 Results for this BILATERAL AM CDT procedure are in the results section. BASIC METABOLIC PANEL Routine 05/09/2018 7:54 Results for this (7) AM CDT procedure are in the results section. LITHIUM LEVEL Routine 05/09/2018 7:54 Results for this AM CDT procedure are in the results section. LIPID PANEL Routine 05/09/2018 7:54 Results for this AM CDT procedure are in the results section. RAPID DRUG SCREEN, Routine 05/09/2018 6:32 Results for this URINE AM CDT procedure are in the results section. HEMOGLOBIN A1C Routine 05/09/2018 6:30 Results for this AM CDT procedure are in the results section. CREATINE KINASE (CK), Routine 05/09/2018 3:53 Results for this TOTAL AND MB AM CDT procedure are in the results section. TROPONIN I Routine 05/09/2018 3:53 Results for this AM CDT procedure are in the results section. BASIC METABOLIC PANEL Routine 05/09/2018 3:53 Results for this (7) AM CDT procedure are in the results section. CBC (HEMOGRAM ONLY) Routine 05/09/2018 3:53 Results for this AM CDT procedure are in the results section. CT BRAIN WITHOUT IV STAT 05/08/2018 8:55 Results for this CONTRAST PM CDT procedure are in the results section. L CATH & CORONARY 05/08/2018 7:05 Coronary artery ANGIOS PM CDT disease involving assiniboine and sioux heart without angina pectoris, unspecified vessel or lesion type B-TYPE NATRIURETIC Routine 05/08/2018 6:05 Results for this FACTOR (BNP) PM CDT procedure are in the results section. CREATINE KINASE (CK), Routine 05/08/2018 6:05 Results for this TOTAL AND MB PM CDT procedure are in the results section. TROPONIN I Routine 05/08/2018 6:05 Results for this PM CDT procedure are in the results section. CBC W/PLT COUNT & AUTO Routine 05/08/2018 5:54 Results for this DIFFERENTIAL PM CDT procedure are in the results section. TYPE AND SCREEN, DONAVAN 05/08/2018 5:54 Results for this AUTOMATED PM CDT procedure are in the results section. APTT Routine 05/08/2018 5:54 Results for this PM CDT procedure are in the results section. CBC W/PLT COUNT & AUTO Routine 05/08/2018 5:54 Results for this DIFFERENTIAL PM CDT procedure are in the results section. BASIC METABOLIC PANEL Routine 05/08/2018 5:54 Results for this (7) PM CDT procedure are in the results section. ECG 12-LEAD Routine 05/08/2018 5:11 Results for this PM CDT procedure are in the results section. ECG 12-LEAD Routine 05/08/2018 5:11 PM CDT Procedure Note - Interface, External Ris In - 05/08/2018 5:39 PM CDT Ventricular Rate 81 BPM Atrial Rate 81 BPM P-R Interval 170 ms QRS Duration 106 ms Q-T Interval 464 ms QTC Calculation(Bazett) 539 ms P Lamar 59 degrees R Lamar 42 degrees T Lamar 90 degrees Normal sinus rhythm Anteroseptal infarct (cited on or before 22-JAN-2016) Prolonged QT ACUTE NM / STEMI Abnormal ECG When compared with ECG of 29-JAN-2016 05:06, Significant changes have occurred after 03/30/2018 Results RHYTHM STRIP - SCAN (02/03/2019 12:02 PM CDT)Only the most recent of3 resultswithin the time period is included. Narrative Performed At VASCULAR DIAGRAM -SCAN (07/28/2018 11:20 AM CDT) Narrative Performed At EKG-SCANNED (05/13/2018 12:30 PM CDT) Narrative Performed At POC-Glucose meter (05/12/2018 11:57 AM CDT)Only the most recent of2 resultswithin the time period is included. POC-Glucose Meter 169 (H)Comment: TESTED AT 70 - 110 mg/dL [facility] [address] [facility] [address] Specimen Blood Performing Organization Address City/State/Zipcode Phone Number [facility] [address] [place], [place] [phone] CENTER ECHOCARDIOGRAM REPORT - SCAN (05/12/2018 8:22 AM CDT) Narrative Performed At CBC with platelet count + automated diff (05/12/2018 4:15 AM CDT)Only the most recent of4 resultswithin the time period is included. WBC 9.4 3.5 - 10.5 K/L [facility] RBC 4.48 (L) 4.63 - 6.08 M/L [facility] Hemoglobin 13.6 (L) 13.7 - 17.5 GM/DL [facility] Hematocrit 41.5 40.1 - 51.0 % [facility] MCV 92.6 (H) 79.0 - 92.2 fL [facility] MCH 30.4 25.7 - 32.2 pg [facility] MCHC 32.8 32.3 - 36.5 GM/DL [facility] RDW 13.5 11.6 - 14.4 % [facility] Platelets 218 150 - 450 K/CU MM [facility] MPV 11.3 9.4 - 12.4 fL [facility] nRBC 0 0 - 0 /100 WBC [facility] % Neutros 52 % [facility] % Lymphs 31 % [facility] % Monos 8 % [facility] % Eos 8 % [facility] % Baso 1 % [facility] # Neutros 4.85 1.78 - 5.38 K/L [facility] # Lymphs 2.92 1.32 - 3.57 K/L [facility] # Monos 0.77 0.30 - 0.82 K/L [facility] # Eos 0.79 (H) 0.04 - 0.54 K/L [facility] # Baso 0.06 0.01 - 0.08 K/L [facility] Immature Granulocytes-Relative 0 0 - 1 % [facility] Specimen Blood Performing Organization Address City/State/Zipcode Phone Number [address] [address] [phone] [place] Hepatitis C antibody (05/12/2018 4:15 AM CDT) Hepatitis C Ab Reactive (A) Nonreactive [facility] Specimen Blood Performing Organization Address City/State/Zipcode Phone Number [address] [address] [phone] [place] Hepatitis B core antibody, IgM (05/12/2018 4:15 AM CDT) Hep B C IgM NON-REACTIVE Nonreactive [facility] Specimen Blood Performing Organization Address City/[facility] [address]/Zipcode Phone Number [address] [address] [place] Hepatitis B core antibody, total (05/12/2018 4:15 AM CDT) Hep B Core Total Ab REACTIVE (A) Nonreactive [facility] Specimen Blood Performing Organization Address City/[facility] [address]/Zipcode Phone Number [address] [address] CENTER Hepatitis B surface antibody (05/12/2018 4:15 AM CDT) Hep B S Ab <8.0 <8.0 mIU/mL [facility] Specimen Blood Performing Organization Address City/[facility] [address]/Zipcode Phone Number [address] [address] [place] Hepatitis B surface antigen (05/12/2018 4:15 AM CDT) hepatitis B Surface Ag NON-REACTIVE Nonreactive [facility] Specimen Blood Performing Organization Address City/[facility] [address]/[facility] Phone Number [address] [address] [place] Hepatic function panel (05/12/2018 4:15 AM CDT) Protein, Total 6.7 6.0 - 8.3 gm/dL [facility] Albumin 3.5 3.5 - 5.0 g/dL [facility] Total Bilirubin 0.5 0.2 - 1.2 mg/dL [facility] Bilirubin, Direct 0.3 0.1 - 0.5 mg/dL [facility] Alkaline Phosphatase 60 40 - 150 U/L [facility] AST 47 (H) 5 - 34 U/L [facility] ALT 67 (H) 6 - 55 U/L [facility] Specimen Blood Performing Organization Address [facility] [address]/[facility] Cent[facility]ode Phone Number [address] [address] [phone] [place] Basic metabolic panel (05/12/2018 4:15 AM CDT)Only the most recent of4 resultswithin the time period is included. Sodium 138 136 - 145 meq/L [facility] Potassium 3.8 3.5 - 5.1 meq/L [facility] Chloride 104 98 - 107 meq/L [facility] CO2 25 22 - 29 meq/L [facility] BUN 18 7 - 21 mg/dL [facility] Creatinine 0.94 0.57 - 1.25 mg/dL [facility] Glucose 109 (H) 70 - 105 mg/dL [facility] Calcium 9.1 8.4 - 10.2 mg/dL [facility] EGFR 82Comment: ESTIMATED GFR IS mL/min/1.73 sq m [facility] NOT ACCURATE [facility] CLEARANCE IN PREDICTING GLOMERULAR FILTRATION RATE. ESTIMATED GFR IS NOT APPLICABLE FOR DIALYSIS PATIENTS. Specimen Blood Performing Organization Address City/State/Zipcode Phone Number [facility] [address] [place] [address] [phone] CENTER 2D Echo W/Doppler(CW/PW/Color) (05/11/2018 9:07 AM CDT) Ejection Fraction [facility] Specimen Narrative Performed At Transthoracic Echocardiography Report (TTE) [facility] Demographics Patient Name Carmen MACIAS of Study 05/11/2018 [place]AD[place]ICK [id number] GenderMale Visit Number [id number] RaceUnknown [id number] m Number [id number] Number Date of Birth1960 Referring Physician JOEY CASILLAS Age57 year(s) Port Engineer María Elena Hernandez [facility] Physician Procedure Type of Study TTE [...] - LVED vol - 34-74ml/m2). LV septal th ickness is moderately increased (1.5-1.6cm). LV po sterior wall thickness is normal (0.6-1.1cm) . Mi ld basal septal hypertrophy is present. Septal mo tion is abnormal, likely related to prior cardiac pearson rgery . The other segments contract normally. Gl obal LV systolic function normal . Estimated LVEF by qualitative assessment is normal (55-60%) . Gr juarez 1 diastolic dysfunction (impaired relaxation an d low-normal LA pressure). Left AtriumLA size is normal (16-34 ml/m2) . Right VentricleThe right ventricular chamber size and systolic fu nction are within normal limits. Right Atrium RA cavity size is normal . Aortic Valve Mild AoV cusp thickening. Ao V cusp mobility is normal . Mitral Valve Mild MV leaflet thickening. No evidence of mitral regurgitation. Tricuspid ValveTV structure is normal. A trace of tricuspid regurgitation. Es timated peak systolic PA pressure cannot be de termined due to inadequate TR velocity signal . Pulmonic Valve Normal PV structure and function by limited views an d Doppler. AortaAortic root size (SInus of Valsalva diameter) is no rmal . PericardiumNo pericardial effusion is visualized. IVC/SVC/PA/PV/PleuralThe estimated RA pressure by IVC dynamics 0-5mmHg . Th e inferior vena cava size is normal . Th e inferior vena cava is adequately visualized. Chambers/Structures Left Atrium LA Volume: 35.74 ml LA Area: 14.03 cm^2 LA Vol. Index: 19 ml/m^2 Left Ventricle LVIDd: 4.41 cm LVEDV:88.13 ml LV Septum Diastolic: 1.68 cm LV PW Diastolic: 0.73 cm LVEDV Greer's:117.19 ml LVED : 62 ml/m^2 LVOT Diameter: 2.15 cm Aorta Ao Root S of Nneka.: 3.14 cm Doppler/Quantitative Measurements Mitral Valve MV Peak E-Wave: 0.56 m/sMV Peak A-Wave: 0.59 m/s E/A Ratio: 0.95 [...] Study 05/11/2018 [place] Gender Male Visit Number [id number] Race Unknown Room Number 1039 Number Date of 1960 Referring Physician JOEY CASILLAS Age 57 year(s) Port Engineer Linda Herrera [employer] Agent Melba Combs, Interpreting Key Shaw [facility] Physician Procedure Type of Study TTE [...] CO: 6.3 l/min LVOT CI: 3.33 l/min/m^2 Performing Organization Address City/State/Zipcode Phone Number [facility] abdomen limited (05/11/2018 8:39 AM CDT) Specimen Narrative Performed At FINAL REPORT [facility] ([place], [place]) INDICATION: 57-year-old inpatient male with abnormal liver [...] MD Report Verified Date/Time:05/11/2018 16:15:41 Reading Location: [address] Ultrasound Reading Room Procedure Note Interface, [...] Report Verified Date/Time: 05/11/2018 16:15:41 Reading Location: [facility] P006 Ultrasound Reading Room Performing Organization Address City/State/Zipcode Phone Number TERESA HANSEN US Renal with Doppler (05/11/2018 8:39 AM CDT) Specimen Narrative Performed At FINAL REPORT G-mode INDICATION: 57-year-old inpatient male with hypertension. TECHNIQUE: [...] MD Report Verified Date/Time:05/11/2018 16:28:02 Reading Location: [facility] B1 [id number] Ultrasound Reading Room Procedure Note Interface, External [...] Report Verified Date/Time: 05/11/2018 16:28:02 Reading Location: [address] Ultrasound Reading Room Performing Organization Address City/State/Zipcode Phone Number Yoogaia RIS Calcium, Ionized (05/11/2018 3:30 AM CDT)Only the most recent of2 resultswithin the time period is included. Calcium, Ion 1.16 1.12 - 1.27 mmol/L [facility] pH, Blood 7.40 [facility] Specimen Blood Performing Organization Address City/[facility] [address]/[facility] Cent[facility] Phone Number [facility] [address] CENTER Phosphorus (05/11/2018 3:30 AM CDT)Only the most recent of2 resultswithin the time period is included. Phosphorus 3.5 2.3 - 4.7 mg/dL [facility] Specimen Blood Performing Organization Address City/[facility] [address]/Zipcode Phone Number [address] [address] [phone] CENTER Magnesium (05/11/2018 3:30 AM CDT)Only the most recent of2 resultswithin the time period is included. Magnesium 2.4 1.6 - 2.6 mg/dL [facility] Specimen Blood Performing Organization Address City/[facility] [address]/[facility] Cent[facility] Phone Number [address] [address] [place] Comprehensive metabolic panel (05/11/2018 3:30 AM CDT)Only the most recent of2 resultswithin the time period is included. Protein, Total 6.8 6.0 - 8.3 gm/dL [facility] Albumin 3.6 3.5 - 5.0 g/dL [facility] Alkaline Phosphatase 58 40 - 150 U/L [facility] Total Bilirubin 0.6 0.2 - 1.2 mg/dL [facility] Sodium 140 136 - 145 meq/L [facility] Potassium 3.6 3.5 - 5.1 meq/L [facility] Chloride 105 98 - 107 meq/L [facility] CO2 28 22 - 29 meq/L [facility] BUN 14 7 - 21 mg/dL [facility] Creatinine 0.85 0.57 - 1.25 mg/dL [facility] Glucose 83 70 - 105 mg/dL [facility] Calcium 9.0 8.4 - 10.2 mg/dL [facility] AST 68 (H) 5 - 34 U/L [facility] ALT 72 (H) 6 - 55 U/L [facility] EGFR 92Comment: ESTIMATED GFR mL/min/1.73 sq m [facility] IS NOT ACCURATE [facility] CREATININE CLEARANCE IN PREDICTING GLOMERULAR FILTRATION RATE. ESTIMATED GFR IS NOT APPLICABLE FOR DIALYSIS PATIENTS. Specimen Blood Performing Organization Address City/State/Zipcode Phone Number [facility] [address] [place] [address] [phone] [place] CTA chest, abdomen & pelvis - for dissection (05/10/2018 6:41 PM CDT) Specimen Narrative Performed At Addendum Begins G-mode REPORT STATUS:A Addendum: I agree with the previously described non vascular findings. Signed: Antionette Hinojosa MD Report Verified Date/Time:05/11/2018 14:11:09 Reading Location: [facility] P048 Angio Body Reading Room Addendum [...] coronary artery calcification is seen in the [place] coronary territories. Patient is post coronary artery [...] thoracic aorta. In the abdominal aorta, circumferential gtkl-vd-ezoydpic calcific atherosclerosis is seen. Overall, no ectasia [...] 4.An addendum will be dictated by the Concaving Machine Operator Radiologist regarding the nonvascular findings. Signed: Magno Augustin MD Report Verified Date/Time:05/10/2018 18:58:16 Reading Location: [place] [address] Cardiology MRI Procedure Note Interface, External Ris In - 05/11/2018 2:13 PM CDT Addendum Begins REPORT STATUS:A Addendum: I agree with the previously described non vascular findings. Signed: Antionette Hinojosa MD Report Verified Date/Time: 05/11/2018 14:11:09 Reading Location: [place] [address] Angio Body Reading Room Addendum Ends FINAL [...] coronary artery calcification is seen in the [place] coronary territories. Patient is post coronary artery [...] thoracic aorta. In the abdominal aorta, circumferential patu-kd-qbtcujxg calcific atherosclerosis is seen. Overall, no ectasia [...] An addendum will be dictated by the Concaving Machine Operator Radiologist regarding the nonvascular findings. Signed: Magno Augustin MD Report Verified Date/Time: 05/10/2018 18:58:16 Reading Location: [place] [address] Cardiology MRI Performing Organization Address City/State/Zipcode Phone Number G-mode CARDIAC CATH REPORT - SCAN (05/10/2018 5:43 PM CDT) Narrative Performed At US renal complete (05/10/2018 11:15 AM CDT) Specimen Narrative Performed At FINAL REPORT G-mode TECHNIQUE: Grayscale ultrasound of the kidneys and [...] MD Report Verified Date/Time:05/10/2018 13:00:32 Reading Location: [address] Ultrasound Reading Room Procedure Note Interface, [...] Report Verified Date/Time: 05/10/2018 13:00:32 Reading Location: [address] Ultrasound Reading Room Performing Organization Address City/[facility] [address]/Zipcode Phone Number [facility] ([place], [place]) B-type Natriuretic Factor (BNP) (05/10/2018 5:11 AM CDT)Only the most recent of2 resultswithin the time period is included. BNP 153 (H) 0 - 100 pg/mL [facility] Specimen Blood Performing Organization Address City/[facility] [address]/Zipcode Phone Number [facility] [address] [place] [address] [phone] CENTER Urinalysis w/Microscopic (05/09/2018 10:02 PM CDT) Color, UA Yellow [facility] Clarity, UA Clear [facility] Specific [place], UA 1.025 1.001 - 1.035 [facility] pH, UA 5.5 5.0 - 8.0 [facility] Protein, UA 20 mg/dL (A) Negative [facility] Glucose, UA 70 mg/dL (A) Negative [facility] Ketones, UA Negative Negative [facility] Bilirubin, UA Negative Negative [facility] Blood, UA Negative Negative [facility] Nitrite, UA Negative Negative [facility] Leukocytes, UA Negative Negative [facility] Urobilinogen, UA 3.0 (H) 0.2 - 1.0 mg/dL [facility] RBC, UA 0 /HPF [facility] WBC, UA 2 /HPF [facility] Bacteria, UA Rare [facility] Mucus Few [facility] Squam Epithel, UA 1 /HPF [facility] Specimen Source [facility] Specimen Urine Performing Organization Address City/[facility] [address]/Zipcode Phone Number [address] [address] [phone] [place] Sodium, random urine (05/09/2018 9:38 PM CDT) Sodium Urine <20 meq/L [facility] Specimen Urine Narrative Performed At [facility] Reference Range: No Normals Performing Organization Address City/[facility] [address]/[facility] Phone Number [address] [address] [phone] [place] Protein, random urine (05/09/2018 9:38 PM CDT) Protein, Urine 15 (H) 0 - 14 mg/dL [facility] Specimen Urine Performing Organization Address City/[facility] [address]/Zipcode Phone Number [address] [address] [phone] [place] Creatinine, random urine (05/09/2018 9:38 PM CDT) Creatinine, Ur 173.4 mg/dL [facility] Specimen Urine Narrative Performed At [facility] Reference Range: No Normals Performing Organization Address [facility] [address]/Zipcode Phone Number [address] [address] [phone] [place] Eosinophil smear (05/09/2018 9:22 PM CDT) Eosinophil Smear No EOS seen No EOS seen [facility] Specimen Urine Performing Organization Address [facility] [address]/[facility] Cent[facility]ode Phone Number [address] [address] [place] TRANSFUSION SERVICE REPORT - SCAN (05/09/2018 5:50 PM CDT) Narrative Performed At NM lung scan (V/Q) (05/09/2018 11:47 AM CDT) Specimen Narrative Performed At FINAL REPORT [facility] ([place], [place]) PROCEDURE: V/Q LUNG SCAN CPT CODE: 40860 INDICATION: Acute chest pain, PE suspected, dyspnea, [...] MD Report Verified Date/Time:05/09/2018 12:03:05 Reading Location: [address] Reading Room Procedure Note Interface, External Ris In - 05/09/2018 12:05 PM CDT FINAL REPORT PROCEDURE: V/Q LUNG SCAN CPT CODE: 26325 INDICATION: Acute chest pain, PE suspected, dyspnea, [...] Report Verified Date/Time: 05/09/2018 12:03:05 Reading Location: [address] [place] [address] Reading Room Performing Organization Address [facility] [address] [facility] Phone Number Yo[facility] RIS XR foot 2 views left (05/09/2018 10:47 AM CDT) Specimen Narrative Performed At FINAL REPORT G-mode Two views left foot Discussion: There is hallux valgus with degenerative changes. No visible acute fracture, dislocation, destructive lesion. Soft tissues are unremarkable. Signed: Darren Ariza MD Report Verified Date/Time:05/09/2018 13:59:01 Reading Location: [facility] C013 Consult Reading Room Procedure Note Interface, External Ris In - 05/09/2018 2:01 PM CDT FINAL REPORT Two views left foot Discussion: There is hallux valgus with degenerative changes. No visible acute fracture, dislocation, destructive lesion. Soft tissues are unremarkable. Signed: Darren Ariza MD Report Verified Date/Time: 05/09/2018 13:59:01 Reading Location: [facility] B1 C013W Consult Reading Room Performing Organization Address [facility] [address] [facility] Phone Number [facility] RIS [place] esoph swallow funct with cine video (05/09/2018 10:30 AM CDT) Specimen Narrative Performed At FINAL REPORT [facility] ([place], [place]) Esophagram History: chest pain Technique: Esophagram was [...] MD Report Verified Date/Time:05/09/2018 11:00:37 Reading Location: [facility] C0[facility] Ortho Consult Reading Room Procedure Note Interface, [...] Report Verified Date/Time: 05/09/2018 11:00:37 Reading Location: [address] Ortho Consult Reading Room Performing Organization Address City/State/Zipcode Phone Number [facility] ([place], [place]) Venous doppler legs bilateral (05/09/2018 9:20 AM CDT) Ejection Fraction [facility] MKCKESSON CPACS Specimen Impressions Performed At Right Impression [facility] CPACS 1. There is no deep venous obstruction [...] ; Diameters are measured in cm Narrative Performed At PV [facility] - Lower Extremities DVT Study [facility] Demographics Patient ALHAJI Gooden Date of Study 05/09/2018 Age 57 Visit [id number] GenderMale Date of 1960 Number Referring Heidy Andres Number [id number] Physician Port Engineer Elsi Arvizu InterpretingJ. Wilver Gaffney RN, RVTPhysicisaige HAYES, ISHMAEL Procedure Type of Study: Veins: Lower Extremities DVT Study, VENOUS DOPPLER LEG, BILATERAL. Indications for Study:DVT. Patient Status:Routine. Study Location:Vascular Lab. Technical Quality:Adequate visualization. Risk Factors History of Disease + +----+ + !Diagnosis!Date!Comments ! + +----+ + !History/Risk Factors:!!CAD, HTN, HLD, COPD, CHF, ATRIAL FIBRILLATION! + +----+ + Procedure Note Interface, External Ris In - 05/09/2018 11:03 AM CDT [facility] - Lower Extremities DVT Study Demographics Patient Name ALHAJI MACIAS Date of Study 05/09/2018 Age 57 Visit Number [id number] Gender Male Date of 1960 Number Ezio Vargas Room Number [id number] Physician Port Engineer Elsi Arvizu Interpreting Annie Gaffney RN, T Physician MD, RPVI Procedure Type of Study: Veins: Lower [...] cm/s ; Diameters are measured in cm Performing Organization Address City/State/Zipcode Phone Number [facility] Carotid doppler bilateral (05/09/2018 8:40 AM CDT) Ejection Fraction [facility] Specimen Impressions Performed At Right Impression [facility] ECHO [email or web address] [facility] 1. There is <50% diameter reduction (approximately [...] in cm Carotid Right Measurements + +----+----+-----+ +---- + + !Location !PSV !EDV !Angle!%Stenosis 2D!%Stenosis Doppler!Tortuosity ! + +----+----+-----+ +---- + + !Prox CCA !40.1!13.4!60 !! ! ! + +----+----+-----+ +---- + + !Dist CCA !46.4!18.5!60 !! ! ! + +----+----+-----+ +---- + + !Prox ICA !55.4!17.7!60 !47% !<50% ! ! + +----+----+-----+ +---- + + !Mid ICA!46.4!17.7!60 !! ! ! + +----+----+-----+ +---- + + !Dist ICA !48.7!18.5!60 !! ! ! + +----+----+-----+ +---- + + !Prox ECA !97.9!19.3!60 !! ! ! + +----+----+-----+ +---- + + !Prox Subclavian!60.1!11.8!60 !! ! ! + +----+----+-----+ +---- + + - There is antegrade vertebral flow noted on the right side. - Additional Measurements:ICAPSV/CCAPSV 1.19.ICAEDV/CCAEDV 1.38. Carotid Left Measurements + +----+----+-----+ +---- + + !Location !PSV !EDV !Angle!%Stenosis 2D!%Stenosis Doppler!Tortuosity ! + +----+----+-----+ +---- + + !Prox CCA !64.5!17!60 !! ! ! + +----+----+-----+ +---- + + !Dist CCA !73.9!22.9!60 !! ! ! + +----+----+-----+ +---- + + !Prox ICA !56.2!13!60 !44% !<50% ! ! + +----+----+-----+ +---- + + !Dist ICA !78.6!31.1!60 !! ! ! + +----+----+-----+ +---- + + !Prox ECA !72.1!14.7!60 !! ! ! + +----+----+-----+ +---- + + !Vertebral!73.3!25.2!60 !! ! ! + +----+----+-----+ +---- + + !Prox Subclavian!63.3!!60 !! ! ! + +----+----+-----+ +---- + + - There is antegrade vertebral flow noted on the left side. - Additional Measurements:ICAPSV/CCAPSV 1.06.ICAEDV/CCAEDV 1.83. Narrative Performed At PV LAB - Carotid Duplex Study [facility] Demographics Patient ALHAJI Gooden Date of Study 05/09/2018 Age 57 Visit [id number] GenderMale Date of 1960 Number Referring [facility] Number [id number] Physician SAJANSEE Port Engineer Elsi PhippsJ. Wilver Gaffney RN, Steve HAYES, [facility] Procedure Type of Study: Cerebral: Carotid, CAROTID DOPPLER, BILATERAL. Indications for Study:Carotid disease. Patient Status:Routine. Study Location:Vascular Lab. Technical Quality:Adequate visualization. Risk Factors History of Disease + +----+ + !Diagnosis!Date!Comments ! + +----+ + !History/Risk Factors:!!CAD, HTN, HLD, COPD, CHF, ATRIAL FIBRILLATION! + +----+ + Procedure Note Interface, External Ris In - 05/09/2018 11:04 AM CDT PV LAB - Carotid Duplex Study Demographics Patient Name ALHAJI MACIAS Date of Study 05/09/2018 Age 57 Visit Number [id number] Gender Male Date of 1960 Number Ezio SHANKS Room Number [id number] Physician OBED Port Engineer Elsi Arvizu Interpreting Annie Gaffney RN, T [...] left side. - Additional Measurements:ICAPSV/CCAPSV 1.06.ICAEDV/CCAEDV 1.83. Performing Organization Address [facility] Phone Number [facility] CPACS [place] level (05/09/2018 7:54 AM CDT) [place] Level 0.4 (L) 0.8 - 1.2 mmol/L [facility] Specimen Blood Performing Organization Address [facility] Phone Number [address] [address] [place] Lipid panel (05/09/2018 7:54 AM CDT) Triglycerides 161Comment: Specimen slightly mg/dL [facility] Cholesterol 111Comment: Specimen slightly mg/dL [facility] HDL 39 mg/dL [facility] LDL Calculated 40 mg/dL [facility] Specimen Blood Narrative Performed At [facility] Triglyceride Reference Range: Low Risk <150 [id number] High Risk 200-499 Very High Risk>=500 Cholesterol Reference Range: Low Risk <200 [id number] High Risk>240 HDL Cholesterol Reference Range: Low Risk >=60 High Risk <40 LDL Cholesterol Reference Range: Optimal<100 Near Bzqgikn437-140 [id number] Htcg284-269 Very High >=190 Performing Organization Address [facility] Phone Number [address] [phone] [place] Rapid drug screen, urine (05/09/2018 6:32 AM CDT) Barbiturate Screen Negative Negative [facility] Benzodiazepine Screen Positive (A) Negative [facility] Cocaine (Metab.) Screen Negative Negative [facility] Methadone Screen Negative Negative [facility] Opiate Screen Positive (A) Negative [facility] Cannabinoid Screen Negative Negative [facility] Amph/Methamph Screen Negative Negative [facility] Phencyclidine Screen Negative Negative [facility] Oxycodone Screen Negative Negative [facility] Specimen Urine Narrative Performed At [facility] DRUGCUTOFF CONC. Cocaine 300 ng/mL Dbrmfrqwazx69 ng/mL Wyfhziscllshzu104 ng/mL Barbiturate 200 ng/mL Ozyutdcjxjyae05 ng/mL Tpfcew080 ng/mL Methadone 300 ng/mL Amphetamine/ 1000 ng/mL Methamphetamine Oxycodone 300 ng/mL This assay provides an unconfirmed qualitative test result for the clinical management of patients in emergency situations. Chain of custody not maintained. Some xcku-trx-rtebhwu medications, as well as adulterants, may cause inaccurate results. Clinical correlation should be applied. A more comprehensive drug screen or confirmation of a detected drug may be performed upon request. Performing Organization Address City/State/Zipcode Phone Number [address] [phone] [place] Hemoglobin A1c (05/09/2018 6:30 AM CDT) Hemoglobin A1C 6.3 (H) 4.3 - 6.1 % [facility] Specimen Blood Performing Organization Address [facility] [address] [facility]/Zipcode Phone Number [address] [address] [place] Troponin I (05/09/2018 3:53 AM CDT)Only the most recent of2 resultswithin the time period is included. Troponin I 0.04 (H) 0.00 - 0.03 ng/mL [facility] Specimen Blood Narrative Performed At [facility] Troponin I (TnI) levels must be interpreted [...] acidosis, acute neurological disease, and persistent tachyarrhythmia. Performing Organization Address City/[facility] [address]/[facility] Cent[facility]ode Phone Number [address] [phone] [place] CBC (Hemogram only) (05/09/2018 3:53 AM CDT) WBC 15.8 (H) 3.5 - 10.5 K/L [facility] RBC 4.80 4.63 - 6.08 M/L [facility] Hemoglobin 14.5 13.7 - 17.5 GM/DL [facility] Hematocrit 44.0 40.1 - 51.0 % [facility] MCV 91.7 79.0 - 92.2 fL [facility] MCH 30.2 25.7 - 32.2 pg [facility] MCHC 33.0 32.3 - 36.5 GM/DL [facility] RDW 14.2 11.6 - 14.4 % [facility] Platelets 238 150 - 450 K/CU MM [facility] MPV 11.5 9.4 - 12.4 fL [facility] nRBC 0 0 - 0 /100 WBC [facility] Specimen Blood Performing Organization Address City/[facility] [address]/[facility] Cent[facility]ode Phone Number [facility] [address] [place] [address] [place] Creatine Kinase (CK), Total and MB (05/09/2018 3:53 AM CDT)Only the most recent of2 resultswithin the time period is included. Total CK 161 29 - 200 U/L [facility] CK-MB 4.9 0.0 - 6.6 ng/mL [facility] MB Relative Index 3.0 % [facility] Specimen Blood Narrative Performed At CK-MB Reference Range: [facility] <6.7Normal 6.7-10.0Borderline >10.0 Abnormal Performing Organization Address City/State/Zipcode Phone Number [facility] [address] [place] [address] brain without IV contrast (05/08/2018 8:55 PM CDT) Specimen Narrative Performed At FINAL REPORT [facility]oga[facility] RIS CT, BRAIN, WITHOUT CONTRAST INDICATION: Cerebral hemorrhage [...] Signed: JR Nida, Emelyn HAYES Report Verified Date/Time:05/08/2018 21:00:20 Reading Location: [address] Reading Room Procedure Note Interface, External [...] Report Verified Date/Time: 05/08/2018 21:00:20 Reading Location: [address] Reading Room Performing Organization Address City/State/Zipcode Phone Number GE RIS Type and screen, automated ([facility] Lab) (05/08/2018 5:54 PM CDT) ABO/RH AUTOMATED (BEAKER) B POSITIVE [facility] Ab Scrn NEGATIVE [facility] Specimen Blood Performing Organization Address City/[facility] [address]/Zipcode Phone Number [address] [address] aPTT (05/08/2018 5:54 PM CDT) PTT 30.0 22.5 - 36.0 seconds [facility] Specimen Blood Narrative Performed At Prior to initiating heparin [facility] Performing Organization Address [facility] [address]/Zipcode Phone Number [facility] [address] [place] [address] CENTER ECG 12 lead (05/08/2018 5:11 PM CDT) Specimen Narrative Performed At Ventricular Rate 81 BPM GE MUSE Atrial Rate 81 BPM P-R Interval 170 ms QRS Duration 106 ms Q-T Interval 464 ms QTC Calculation(Bazett) 539 ms P Lamar 59 degrees R Lamar 42 degrees T Lamar 90 degrees Normal sinus rhythm Interatrial conduction [...] leads placement Confirmed by MD JAIMEE, SHELIA ([id number]) on 05/09/2018 5:06:47 AM Procedure Note Interface, External Ris In - 05/09/2018 5:07 AM CDT Ventricular Rate 81 BPM Atrial Rate 81 BPM P-R Interval 170 ms QRS Duration 106 ms Q-T Interval 464 ms QTC Calculation(Bazett) 539 ms P Lamar 59 degrees R Lamar 42 degrees T Lamar 90 degrees Normal sinus rhythm Interatrial conduction [...] leads placement Confirmed by MD JAIMEE, SHELIA ([id number]) on 05/09/2018 5:06:47 AM Performing Organization Address City/State/Zipcode Phone Number TERESA HELM after 03/30/2018 Insurance Payer Benefit Plan / Group Subscriber ID Type Phone Address [employer] - MEDICARE UNITED MED[employer]ARE HMO xxxxxxxxx MGD CARE Advance Directives For more information, please contact:[address] [phone] Code Status Date Activated Date Inactivated Comments Full Code 05/08/2018 5:23 PM 05/12/2018 6:15 PM This code status was determined by: Patient Full Code 01/23/2016 10:38 AM 01/29/2016 2:32 PM This code status was determined by: Patient Full Code 01/22/2016 1:26 PM 01/23/2016 10:38 AM This code status was determined by: Patient Full Code 01/22/2016 1:24 PM 01/22/2016 1:26 PM This code status was determined by: Patient
--- OUTSIDE RECORDS SUMMARY | 2019-03-31 13:59 | XMS REPORT | Continuity of Care Document ---
:1960 Author Organization Interface Problems Problem Status Onset Classification Date Comments Source Date Reported Dyspnea Active 10/29/19 Finding 11/24/[address] [facility] [place] COPD exacerbation Active 10/29/19 Finding 11/24/[address] [facility] [place] Insomnia Active 10/27/19 Finding 11/24/[address] [facility] [place] Anemia Active 10/27/19 Finding 11/24/[address] [facility] [place] BRIAN Active 10/13/20 Finding 11/24/[address] [facility] [place] Shortness of Active 10/13/20 Finding 11/24/[address] [facility] [facility] [place] Back pain Active 10/13/20 Finding 11/24/[address] [facility] [place] Atrial Active 10/13/20 Finding 11/24/[address] [facility] fibrillation [facility] [place] Hyperlipidemia Active 10/13/20 Finding 11/24/[address] [facility] [place] Former smoker Active 10/13/20 Finding 11/24/[address] [facility] [place] Bipolar 1 disorder Active 10/13/20 Finding 11/24/[address] [facility] [place] Obstructive sleep Active 10/13/20 Finding 11/24/[address] [address] apnea syndrome [facility] [place] Elevated troponin Active 05/13/20 Finding 11/24/[address] [facility] [place] Abnormal EKG Active 05/13/20 Finding 11/24/[address] [facility] [place] Hypotension Active 05/13/20 Finding 11/24/[address] [facility] [place] CAD Active 01/20/20 Finding 11/24/[address] [facility] [place] CHF Active 01/20/20 Finding 11/24/[address] [facility] [place] COPD Active 01/20/20 Finding 11/24/[address] [facility] [place] Chest pain Active 01/20/20 Finding 11/24/[address] [facility] [place] Pneumonia Active 01/20/20 Finding 11/24/[address] [facility] [place] Coronary artery Active 01/20/20 Finding 11/24/[address] [facility] disease [facility] [place] Chronic Active 01/20/20 Finding 11/24/[address] [facility] [address] obstructive [facility] pulmonary disease [place] Hematoma Active 11/07/19 Finding 11/24/[address] [facility] [place] Acute coronary Active 11/07/19 Finding 11/24/[address] [facility] syndrome [facility] [place] Syncope Active 11/07/19 Finding 11/24/[address] [facility] [place] Chronic back pain Active 11/07/19 Finding 11/24/[address] [facility] [place] Hypertension Active 11/07/19 Finding 11/24/[address] [facility] [place] Poorly-controlled Active 11/01/19 Finding 11/24/[address] hypertension [facility] [place] Colitis Active 11/01/19 Finding 11/24/[address] [facility] [place] Intractable Active 11/01/19 Finding 11/24/[address] [facility] [address] vomiting [facility] [place] Tobacco abuse Active 12/03/19 Finding 11/24/[address] [facility] [place] Low back pain Inactive Finding 11/24/[address] [facility] [place] Fever Inactive Finding 11/24/[address] [facility] [place] Sleep apnea Active Finding 11/24/[address] [facility] [place] D-dimer, elevated Active Finding 11/24/[address] [facility] [place] Cholelithiasis Active Finding 11/24/[address] [facility] [place] Acute Active Finding 11/24/[address] gastroenteritis [facility] [place] Acute Active Finding 11/24/2017 [facility] cholecystitis [facility] [place] Medications Medication Details Route Status Patient Ordering Order Source Instructions Provider Date Clonidine Hcl TWICE Active Charly 11/24/ [facility] DAILY 2018 [facility] [place] Carvedilol TWICE Active Charly [facility] DAILY 0600 2018 [facility] AND 1800 [place] Mometasone/Formoterol TWICE Active [facility] DAILY 2018 [facility] [place] Atorvastatin Calcium AT BEDTIME Active [facility] 2018 [facility] [place] Gabapentin FOUR TIMES Active [facility] DAILY 2018 [facility] [place] Lisinopril TWICE Active [facility] DAILY 2018 [facility] [place] Pantoprazole BEFORE Active [facility] BREAKFAST 2018 [facility] [place] Benzonatate THREE Active [facility] TIMES A 2018 [facility] DAY PRN [place] For Cough Albuterol Sulfate THREE Active [facility] TIMES A 2018 [facility] DAY PRN [place] For Shortness Of Breath Levofloxacin DAILY Active [facility] 2018 [facility] [place] Metronidazole Q8H Active [facility] 2018 [facility] [place] Amiodarone Hcl DAILY Active [facility] 2018 [facility] [place] Aspirin DAILY Active St[facility] 2018 [facility] [place] Simvastatin DAILY Active [facility] St[facility] 2018 [facility] [place] Amlodipine TWICE Active [facility] DAILY 2017 [facility] [place] Furosemide DAILY Active [facility] 2017 [facility] [place] Budesonide/Formoterol TWICE Active St[facility] Fumarate DAILY 2017 [facility] [place] Amlodipine DAILY Active [facility] [place] Clonidine Hcl TWICE Active [facility] St[facility] DAILY 2017 [facility] [place] Lisinopril TWICE Active [facility] DAILY 2016 [facility] [place] Albuterol Sulfate THREE Active Prezas [facility] St[facility] TIMES A 2016 [facility] DAY PRN [place] For Shortness Of Breath Hydrochlorothiazide DAILY Active [facility] St[facility] 2016 [facility] [place] Lisinopril DAILY Active [facility] St[facility] 2016 [facility] [place] Codeine/Apap EVERY [address] HOURS 2016 [facility] - NEEDED PRN [place] For Pain Amiodarone Hcl TWICE Active 05/13/ [facility] [place] Nifedipine Xl DAILY Active [facility] [place] Ciprofloxacin Hcl TWICE Inactive Ibrahim 12/07/ [facility] [place] Simvastatin AT BEDTIME Active 12/02/ [facility] [place] Aspirin Tab DAILY Active Anders 04/11/ [facility] [place] Amitriptyline AT BEDTIME Active [facility] PRN For 2014 [facility] Insomnia [place] Lisinopril TWICE Active Anders 04/11/ [facility] DAILY [facility] [place] Hydrocodone EVERY [address] Bit/Acetaminophen HOURS 2013 [facility] - NEEDED PRN [place] For Pain Amlodipine DAILY Active [facility] 2013 [facility] [place] Allergies, Adverse Reactions, Alerts Substance Category Reaction Severity Reaction Status Date Comments Source type Reported Penicillins Hives/Bonifacio Moderate Allergy to Active [facility] St[facility] h Substance 6 [facility] [place] codeine Itching Allergy to Active [facility] St[facility] Substance 6 [facility] [place] Immunizations Immunization Date Given Site Status Last Updated Comments Source Results Order Name Results Value Reference Date Interpretation Comments Source Range Laboratory Segmented 82 % 40 - 80 11/24 [facility] Studies Neutrophils [facility] [place] Laboratory Monocytes 3 % 0 - 10 11/24 St. Studies /2017 [facility] [place] Laboratory Lymphocytes 13 % 15 - 42 11/24 [facility] St[facility] Studies [facility] [place] Laboratory Giant Giant 11/24 [facility] [address] Studies Platelets Platelets [facility] [place] Laboratory Blood Blood 11/24 [facility] St[facility] Studies Morphology Morphology [facility] - Comment Comment [place] Laboratory Atypical 2 11/24 [facility] [address] Studies Lymphocytes [facility] [place] Laboratory Total 0.4 mg/dL 0.3 - 1.2 11/24 [facility] St[facility] Studies Bilirubin [facility] [place] Laboratory Sodium Level 136 mEq/L 135 - 145 11/24 St. Studies /2017 [facility] [place] Laboratory Serum Total 6.8 g/dL 6.0 - 8.3 11/24 [facility] St[facility] Studies Protein /2017 [facility] [place] Laboratory Potassium 3.8 mEq/L 3.6 - 5.0 11/24 [facility]. Studies Level /2017 [facility] [place] Laboratory Magnesium 2.6 mg/dL 1.8 - 2.5 11/24 [facility] [address] Studies Level /2017 [facility] [place] Laboratory Glucose Level 180 mg/dL 65 - 120 11/24 [facility] [address] Studies /2018 [facility] [place] Laboratory Globulin 3.2 g/dL 2.3 - 3.5 11/24 [facility]. Studies /2017 [facility] [place] Laboratory Estimat 42 mL/min 90 11/24 [facility]. Studies Glomerular /2017 [facility] Filtration [place] Rate Laboratory Creatinine 1.67 mg/dL 0.61 - 11/24 [facility]. Studies 1.24 [facility] [place] Laboratory Chloride 103 mEq/L 101 - 111 11/24 [facility]. Studies Level /2017 [facility] [place] Laboratory Carbon 25 mEq/L - 11/24 [facility]. Studies Dioxide Level /2017 [facility] [place] Laboratory Calcium Level 9.1 mg/dL 8.5 - 10.5 11/24 [facility] [address] Studies /2017 [facility] [place] Laboratory Blood Urea 54 mg/dL 6 - 20 11/24 [facility]. Studies Nitrogen /2017 [facility] [place] Laboratory Aspartate 43 IU/L 10 - 42 11/24 [facility]. Studies Amino Transf /2017 [facility] (AST/SGOT) [place] Laboratory Alkaline 23 IU/L 42 - 121 11/24 [facility]. Studies Phosphatase /2017 [facility] [place] Laboratory Albumin/Globu 1.1 1.1 - 1.8 11/24 [facility]. Studies patel Ratio /2017 [facility] [place] Laboratory Albumin 3.6 g/dL 3.2 - 5.5 11/24 [facility]. Studies /2018 [facility] [place] Laboratory Alanine 38 IU/L 10 - 60 11/24 [facility]. Studies Aminotransfer /2017 [facility] ase [place] (ALT/SGPT) Laboratory White Blood 19.3 K/uL 4.3 - 10.9 11/24 [facility]. Studies Count /2017 [facility] [place] Laboratory Red Cell 14.4 % 12.1 - 11/24 [facility]. Studies Distribution 15.2 [facility] - Width [place] Laboratory Red Blood 4.53 M/uL 4.33 - 11/24 [facility]. Studies Count 5.43 /2017 [facility] [place] Laboratory Platelet 273 K/uL 152 - 406 11/24 [facility]. Studies Count /2017 [facility] [place] Laboratory Neutrophils % 85.5 % 41.7 - 11/24 [facility] St[facility] Studies 73.7 /2017 [facility] [place] Laboratory Monocytes % 4.6 % 3.3 - 12.3 11/24 [facility] St[facility] Studies /2017 [facility] [place] Laboratory Mean Platelet 10.7 fL 7.6 - 11.3 11/24 [facility] St[facility] Studies Volume /2017 [facility] [place] Laboratory Mean 89.0 fL 80 - 100 11/24 [facility]. Studies Corpuscular /2017 [facility] Volume [place] Laboratory Mean 32.9 g/dL 32.0 - 11/24 [facility]. Studies Corpuscular 36.0 /2017 [facility] Hemoglobin [place] [facility] Laboratory Mean 29.3 pg 27.0 - 11/24 [facility]. Studies Corpuscular 35.0 /2017 [facility] Hemoglobin [place] Laboratory Lymphocytes % 9.6 % 15.3 - 11/24 [facility] [address] Studies 44.8 /2017 [facility] [place] Laboratory Hemoglobin 13.3 g/dL 13.6 - 11/24 [facility] [address] Studies 17.9 /2017 [facility] [place] Laboratory Hematocrit 40.3 % 39.6 - 11/24 [facility] St[facility] Studies 49.0 [facility] [place] Laboratory Eosinophils % 0.0 % 0 - 4.4 11/24 [facility] St[facility] Studies /2017 [facility] [place] Laboratory Basophils % 0.3 % 0 - 1.3 11/24 [facility] St[facility] Studies /2017 [facility] [place] Laboratory Absolute 16.5 K/uL 1.8 - 8.0 11/24 [facility]. Studies Neutrophil /2017 [facility] [place] Laboratory Absolute 0.9 K/uL 0.1 - 1.3 11/24 [facility]. Studies Monocytes /2017 [facility] (CBC) [place] Laboratory Absolute 1.9 K/uL 0.7 - 4.9 11/24 [facility]. Studies Lymphocytes /2017 [facility] (CBC) [place] Laboratory Absolute 0.0 K/uL 0 - 0.5 11/24 [facility] Studies Eosinophils [facility] (CBC) [place] Laboratory Absolute 0.1 K/uL 0 - 0.5 11/24 St. Studies Basophils [facility] (CBC) [place] Laboratory Troponin I 0.03 ng/mL 11/22 St[facility] Studies [facility] [place] Laboratory Creatine 4.5 ng/ml 0.3 - 4.0 11/22 St[facility] Studies Kinase MB [facility] [place] Laboratory Creatine 256 IU/L 22 - 269 11/22 St[facility] Studies Kinase [facility] [place] Laboratory Urine pH 7.0 11/21 St[facility] Studies /2017 [facility] [place] Laboratory Urine 0.2 mg/dL 11/21 . Studies Urobilinogen /2017 [facility] [place] Laboratory Urine Total Urine Total 11/21 . Studies Protein Protein [facility] [place] Laboratory Urine Urine 11/21 St[facility] Studies Specific Specific /2017 [facility] [place] Laboratory Urine Nitrite Urine 11/21 St[facility] Studies Nitrite [facility] [place] Laboratory Urine Urine 11/21 . Studies Leukocyte Leukocyte /2017 [facility] - Esterase Esterase [place] Laboratory Urine Ketones Urine 11/21 . Studies Ketones /2017 [facility] [place] Laboratory Urine Glucose Urine 11/21 St[facility] Studies Glucose [facility] [place] Laboratory Urine Color Urine Color 11/21 St[facility] Studies [facility] [place] Laboratory Urine Blood Urine Blood 11/21 St[facility] Studies [facility] [place] Laboratory Urine Urine 11/21 . Studies Bilirubin Bilirubin /2017 [facility] [place] Laboratory Urine Urine 11/21 [facility]. Studies Appearance Appearance /2017 [facility] [place] Laboratory Procalcitonin 4.08 ng/mL 11/21 St[facility] Studies [facility] [place] Laboratory Lactic Acid 13.2 mg/dL 4.5 - 19.8 11/21 St[facility] Studies Level [facility] [place] Laboratory B-Type 86 pg/ml 11/21 . Studies Natriuretic [facility] Peptide [place] Laboratory Direct 0.2 mg/dL 0 - 0.2 11/21 . Studies Bilirubin [facility] [place] Laboratory Rapid 0.03 ng/mL 11/21 [facility] St[facility] Studies Troponin I /2017 [facility] [place] Laboratory Lipase 36 U/L 22 - 51 11/21 [facility] St[facility] Studies /2017 [facility] [place] Laboratory Prothrombin 13.1 9.5 - 12.5 11/21 [facility] St[facility] Studies Time SECONDS /2017 [facility] [place] Laboratory INR 1.11 11/21 [facility] St[facility] Studies International /2017 [facility] Normalized [place] Ratio Laboratory Activated 30.7 24.3 - 11/21 [facility] St[facility] Studies Partial SECONDS 36.9 /2017 [facility] Thromboplast [place] Time Vital Signs Vital Sign Value Date Comments Source Heart Rate 66 11/24/2017 [facility] [place] [place] Systolic (mm Hg) 153 11/24/2017 [facility] [place] - [place] Diastolic (mm Hg) 86 11/24/2017 [facility] [place] - [place] Temperature Oral (F) 98.2 F 11/24/2017 [facility] [place] Respitory Rate 16 11/24/2017 [facility] [place] Height 69 11/21/2017 [facility] [place] - [place] Weight 168.50 11/21/2017 [facility] [place] Encounters Location Location Encounter Encounter Reason Attending ADM DC Status Source Details Type Number For Provider Date Date Visit [facility] [id number] 11/21 11/24 [facility] In[facility] 59 /2017 [facility] [place] Procedures Procedure Code Date Perfomer Comments Source Chest Pa And Lat [id number] 11/22/2017 [facility] [place]ya - (2 Views) [place] Anaerobic Blood [id number] 11/21/2017 [facility] [place] - Culture [place] Aerobic Blood [id number] 11/21/2017 [facility] [place] - Culture [place] Chest Abdomen [id number] 11/21/2017 [facility] [place] - Pelvis W Cont [place] Chest Single [id number] 11/21/2017 [facility] [place] - View [place]
--- OUTSIDE RECORDS SUMMARY | 2019-03-31 14:01 | XMS REPORT ---
[...] End Status Dosage System Date Date Dulera [facility] 14044180406 100-5 MCG/ACT Active 2 puffs Inhalation Twice a day Amitriptyline [facility] 72493625840 50 MG Orally February 28, Active 1 tablet HCl Once a day 2017 Amiodarone HCl [facility] 00092748708 200 MG Orally Active 1 tablet Once a day Memantine HCl NDC 98065747479 10 MG Orally Active 1 tablet Twice a day Clonidine HCl [facility] 12667600060 0.1 MG Orally April 20, Active 2 tablet twice 2017 twice x 1 week then 1 tablet twice a day for 1 week. Coreg [facility] 28414204758 12.5 MG Orally Active 2 tabs bid Fombell [facility] 01651902981 10-325 MG Active 1 tablet Orally every 6 as needed hrs Linzess [facility] 76100903888 145 MCG Orally April 20Jun Active 1 capsule Once a day 2017 Lipitor [facility] 15448607198 40 MG Orally Active 1 tablet Once a day Clonidine HCl [facility] 86939894085 0.3 MG Orally Inactive 1 tablet Twice a day Lisinopril [facility] 67865052932 40 MG Orally Active 1 tablet Once a day Results No Known Results Summary Purpose eClinicalWorks Submission
--- OUTSIDE RECORDS SUMMARY | 2019-03-31 14:01 | XMS REPORT ---
:1960 Author Organization [facility] Address [address] [place] [address] [address] [place] [address] Care Team Providers Name Role Phone GLENN CATHERINE Unavailable Unavailable Problems This patient has no known problems. Allergies, Adverse Reactions, Alerts This patient has no known allergies or adverse reactions. Medications This patient has no known medications. Encounters Start End Encounter Admission Attending Care Care Encounter Date/Time Date/Time Type Type Clinicians Facility Department ID 2019-02-23 2019-02-23 Outpatient E [facility] 7500 15:40:00 15:40:00 Results Test Description Test Time Test Comments Text Results Atomic Results Result Comments HEPATITIS C ANTIBODY 2018-05-12 16:55:00 Test Item Value Reference Range Comments HEPATITIS C ANTIBODY (BEAKER) (test emrl=193) Reactive Nonreactive POCT-GLUCOSE [id number] 12:03:00 Test Item Value Reference Range Comments POC-GLUCOSE METER (BEAKER) 169 mg/dL 70-110 TESTED AT [address] (test shxq=4338) [facility] [id number] HEPATITIS B CORE ANTIBODY, [id number] 08:37:00 Test Item Value Reference Range Comments HEPATITIS B CORE TOTAL ANTIBODY (BEAKER) (test Reactive Nonreactive mvjl=880) POCT-GLUCOSE [id number] 08:14:00 Test Item Value Reference Range Comments POC-GLUCOSE METER (BEAKER) 105 mg/dL 70-[address] [facility] [address] [facility] (test vhzh=3601) [facility] [address] HEPATIC FUNCTION [id number] 07:10:00 Test Item Value Reference Range Comments TOTAL PROTEIN (BEAKER) (test oqfw=773) 6.7 gm/dL 6.0-8.3 ALBUMIN (BEAKER) (test lqgx=3011) 3.5 g/dL 3.5-5.0 BILIRUBIN TOTAL (BEAKER) (test hzyp=157) 0.5 mg/dL 0.2-1.2 BILIRUBIN DIRECT (BEAKER) (test fzdj=017) 0.3 mg/dL 0.1-0.5 ALKALINE PHOSPHATASE (BEAKER) (test hghj=131) 60 U/L 40-150 AST (SGOT) (BEAKER) (test ueqj=721) 47 U/L 5-34 ALT (SGPT) (BEAKER) (test esdu=909) 67 U/L 6-55 BASIC METABOLIC [id number] 07:10:00 Test Item Value Reference Range Comments SODIUM (BEAKER) (test 138 meq/L 136-145 ahll=388) POTASSIUM (BEAKER) (test 3.8 meq/L 3.5-5.1 hcno=333) CHLORIDE (BEAKER) (test 104 meq/L 98-107 xnih=348) CO2 (BEAKER) (test 25 meq/L 22-29 ttnv=565) BLOOD UREA NITROGEN 18 mg/dL 7-21 (BEAKER) (test soyo=654) CREATININE (BEAKER) (test 0.94 mg/dL 0.57-1.25 orjq=996) GLUCOSE RANDOM (BEAKER) 109 mg/dL 70-105 (test hlyr=889) CALCIUM (BEAKER) (test 9.1 mg/dL 8.4-10.2 byfg=226) EGFR (BEAKER) (test 82 mL/min/1.73 sq m ESTIMATED GFR IS NOT gwxs=9472) ACCURATE CREATININE CLEARANCE IN PREDICTING GLOMERULAR FILTRATION RATE. ESTIMATED GFR IS NOT APPLICABLE FOR DIALYSIS PATIENTS. HEPATITIS B SURFACE [id number] 06:58:00 Test Item Value Reference Range Comments HEPATITIS B SURFACE ANTIBODY (BEAKER) (test < mIU/mL <8.0 cgho=234) HEPATITIS B SURFACE [id number] 05:42:00 Test Item Value Reference Range Comments HEPATITIS B SURFACE ANTIGEN (2) (BEAKER) (test Nonreactive Nonreactive dfhb=5824) HEPATITIS B CORE ANTIBODY, [id number] 05:42:00 Test Item Value Reference Range Comments HEPATITIS B CORE IGM ANTIBODY (BEAKER) (test Nonreactive Nonreactive mzwq=807) CBC W/PLT COUNT & AUTO [id number] 04:56:00 Test Item Value Reference Range Comments WHITE BLOOD CELL COUNT (BEAKER) (test jssr=499) 9.4 K/ L 3.5-10.5 RED BLOOD CELL COUNT (BEAKER) (test vmsh=403) 4.48 M/ L 4.63-6.08 HEMOGLOBIN (BEAKER) (test xeik=116) 13.6 GM/DL 13.7-17.5 HEMATOCRIT (BEAKER) (test vnat=815) 41.5 % 40.1-51.0 MEAN CORPUSCULAR VOLUME (BEAKER) (test blof=061) 92.6 fL 79.0-92.2 MEAN CORPUSCULAR HEMOGLOBIN (BEAKER) (test 30.4 pg 25.7-32.2 zuan=451) MEAN CORPUSCULAR HEMOGLOBIN CONC (BEAKER) (test 32.8 GM/DL 32.3-36.5 hyeo=280) RED CELL DISTRIBUTION WIDTH (BEAKER) (test 13.5 % 11.6-14.4 izcw=247) PLATELET COUNT (BEAKER) (test ftvm=820) 218 K/CU MM 150-450 MEAN PLATELET VOLUME (BEAKER) (test htpk=032) 11.3 fL 9.4-12.4 NUCLEATED RED BLOOD CELLS (BEAKER) (test 0 /100 WBC 0-0 djat=423) NEUTROPHILS RELATIVE PERCENT (BEAKER) (test 52 % aycw=989) LYMPHOCYTES RELATIVE PERCENT (BEAKER) (test 31 % bntu=570) MONOCYTES RELATIVE PERCENT (BEAKER) (test 8 % ytgq=390) EOSINOPHILS RELATIVE PERCENT (BEAKER) (test 8 % qbwb=470) BASOPHILS RELATIVE PERCENT (BEAKER) (test 1 % usep=820) NEUTROPHILS ABSOLUTE COUNT (BEAKER) (test 4.85 K/ L 1.78-5.38 rdjd=117) LYMPHOCYTES ABSOLUTE COUNT (BEAKER) (test 2.92 K/ L 1.32-3.57 znbe=797) MONOCYTES ABSOLUTE COUNT (BEAKER) (test 0.77 K/ L 0.30-0.82 chqj=047) EOSINOPHILS ABSOLUTE COUNT (BEAKER) (test 0.79 K/ L 0.04-0.54 oewe=303) BASOPHILS ABSOLUTE COUNT (BEAKER) (test 0.06 K/ L 0.01-0.08 ulfo=069) IMMATURE GRANULOCYTES-RELATIVE PERCENT (BEAKER) 0 % 0-1 (test vuin=7572) U/S, RENAL WITH [id number] 16:28:00Reason for exam:-> hypertensionFINAL REPORT INDICATION: 57-year-old [...] Verified Date/Time: 05/11/2018 16: 28:02 Reading Location: [address] Ultrasound Reading Room U/S, ABDOMINAL, [id number] 16:15:00Abdomen limited area? Add comment if clarification [...] Verified Date/Time: 05/11/2018 16 :15:41 Reading Location: [address] Ultrasound Reading Room CTA, CHEST, ABDOMEN - PELVIS, FOR [id number] 14:11:00Reason for exam:->Chest painAddendum BeginsREPORT STATUS:A Addendum: I agree with the previously described non vascular findings. Signed: Antionette Hinojosa MDReport Verified Date/Time: 05/11/2018 14:11:09 Reading Location: [place] [id number] Angio Body Reading RoomAddendum EndsFINAL REPORT CT [...] coronary artery calcification is seen in the [place] coronary territories. Patient is post coronary artery [...] thoracic aorta. In the abdominal aorta, circumferential rwzw-na-fovbpqqh calcific atherosclerosis is seen. Overall, no ectasia [...] An addendum will be dictated by the Machine Room Engineer Radiologist regarding the nonvascular findings. Signed: Magno Augustin Verified Date/Time: 05/10/2018 18:58:16 Reading Location: [place] [address] Cardiology MRI CALCIUM, [id number] 05:20:00 Test Item Value Reference Range Comments CALCIUM IONIZED (BEAKER) (test zlsa=645) 1.16 mmol/L 1.12-1.27 PH, BLOOD (BEAKER) (test nzfw=0708) 7.40 [id number] 04:29:00 Test Item Value Reference Range Comments PHOSPHORUS (BEAKER) (test agos=056) 3.5 mg/dL 2.3-4.7 [id number] 04:29:00 Test Item Value Reference Range Comments MAGNESIUM (BEAKER) (test ijha=209) 2.4 mg/dL 1.6-2.6 COMPREHENSIVE METABOLIC [id number] 04:29:00 Test Item Value Reference Range Comments TOTAL PROTEIN (BEAKER) 6.8 gm/dL 6.0-8.3 (test ngom=888) ALBUMIN (BEAKER) (test 3.6 g/dL 3.5-5.0 obvp=4486) ALKALINE PHOSPHATASE 58 U/L 40-150 (BEAKER) (test hzew=023) BILIRUBIN TOTAL (BEAKER) 0.6 mg/dL 0.2-1.2 (test qhky=564) SODIUM (BEAKER) (test 140 meq/L 136-145 hvfz=437) POTASSIUM (BEAKER) (test 3.6 meq/L 3.5-5.1 hflo=923) CHLORIDE (BEAKER) (test 105 meq/L 98-107 klrx=834) CO2 (BEAKER) (test 28 meq/L 22-29 oiuy=843) BLOOD UREA NITROGEN 14 mg/dL 7-21 (BEAKER) (test snpe=886) CREATININE (BEAKER) (test 0.85 mg/dL 0.57-1.25 iqfi=885) GLUCOSE RANDOM (BEAKER) 83 mg/dL 70-105 (test iatw=238) CALCIUM (BEAKER) (test 9.0 mg/dL 8.4-10.2 decv=389) AST (SGOT) (BEAKER) (test 68 U/L 5-34 ojwo=745) ALT (SGPT) (BEAKER) (test 72 U/L 6-55 hvek=274) EGFR (BEAKER) (test 92 mL/min/1.73 sq m ESTIMATED GFR IS NOT bkdi=1361) ACCURATE CREATININE CLEARANCE IN PREDICTING GLOMERULAR FILTRATION RATE. ESTIMATED GFR IS NOT APPLICABLE FOR DIALYSIS PATIENTS. CBC W/PLT COUNT & AUTO [id number] 03:58:00 Test Item Value Reference Range Comments WHITE BLOOD CELL COUNT (BEAKER) (test oqtt=122) 10.2 K/ L 3.5-10.5 RED BLOOD CELL COUNT (BEAKER) (test chus=008) 4.49 M/ L 4.63-6.08 HEMOGLOBIN (BEAKER) (test ylrv=266) 13.4 GM/DL 13.7-17.5 HEMATOCRIT (BEAKER) (test huir=466) 41.7 % 40.1-51.0 MEAN CORPUSCULAR VOLUME (BEAKER) (test twik=831) 92.9 fL 79.0-92.2 MEAN CORPUSCULAR HEMOGLOBIN (BEAKER) (test 29.8 pg 25.7-32.2 rkub=141) MEAN CORPUSCULAR HEMOGLOBIN CONC (BEAKER) (test 32.1 GM/DL 32.3-36.5 mlbu=875) RED CELL DISTRIBUTION WIDTH (BEAKER) (test 13.7 % 11.6-14.4 nmdw=019) PLATELET COUNT (BEAKER) (test syjm=389) 192 K/CU MM 150-450 MEAN PLATELET VOLUME (BEAKER) (test bdqa=013) 10.7 fL 9.4-12.4 NUCLEATED RED BLOOD CELLS (BEAKER) (test 0 /100 WBC 0-0 pwbq=249) NEUTROPHILS RELATIVE PERCENT (BEAKER) (test 53 % htpr=334) LYMPHOCYTES RELATIVE PERCENT (BEAKER) (test 32 % ofzc=781) MONOCYTES RELATIVE PERCENT (BEAKER) (test 9 % fnam=704) EOSINOPHILS RELATIVE PERCENT (BEAKER) (test 5 % jbtc=056) BASOPHILS RELATIVE PERCENT (BEAKER) (test 1 % dhxu=416) NEUTROPHILS ABSOLUTE COUNT (BEAKER) (test 5.36 K/ L 1.78-5.38 graj=988) LYMPHOCYTES ABSOLUTE COUNT (BEAKER) (test 3.23 K/ L 1.32-3.57 apye=055) MONOCYTES ABSOLUTE COUNT (BEAKER) (test 0.93 K/ L 0.30-0.82 fozm=326) EOSINOPHILS ABSOLUTE COUNT (BEAKER) (test 0.54 K/ L 0.04-0.54 hdbr=455) BASOPHILS ABSOLUTE COUNT (BEAKER) (test 0.07 K/ L 0.01-0.08 fjiv=411) IMMATURE GRANULOCYTES-RELATIVE PERCENT (BEAKER) 0 % 0-1 (test rxvk=6126) U/S, RENAL, [id number] 13:00:00Reason for exam:->akiShould this be performed at [...] MDReport Verified Date/Time: 05/10/2018 13:00:32 Reading Location: [address] Ultrasound Reading Room CALCIUM, [id number] 06:58:00 Test Item Value Reference Range Comments CALCIUM IONIZED (BEAKER) (test tugr=140) 1.08 mmol/L 1.12-1.27 PH, BLOOD (BEAKER) (test ducy=8227) 7.35 B-TYPE NATRIURETIC FACTOR (BNP)2018-05-10 05:49:00 Test Item Value Reference Range Comments B-TYPE NATRIURETIC PEPTIDE (BEAKER) (test 153 pg/mL 0-100 ctbh=300) [id number] 05:47:00 Test Item Value Reference Range Comments MAGNESIUM (BEAKER) (test 2.4 mg/dL 1.6-2.6 Specimen slightly hemolyzed ndtq=338) [id number] 05:47:00 Test Item Value Reference Range Comments PHOSPHORUS (BEAKER) (test 2.7 mg/dL 2.3-4.7 Specimen slightly hemolyzed kshm=750) COMPREHENSIVE METABOLIC [id number] 05:47:00 Test Item Value Reference Range Comments TOTAL PROTEIN (BEAKER) 6.1 gm/dL 6.0-8.3 Specimen slightly (test bpuq=555) hemolyzed ALBUMIN (BEAKER) (test 3.2 g/dL 3.5-5.0 Specimen slightly hlek=6130) hemolyzed ALKALINE PHOSPHATASE 48 U/L 40-150 (BEAKER) (test azcx=176) BILIRUBIN TOTAL (BEAKER) 0.8 mg/dL 0.2-1.2 Specimen slightly (test tupf=693) hemolyzed SODIUM (BEAKER) (test 140 meq/L 136-145 qtdn=157) POTASSIUM (BEAKER) (test 4.1 meq/L 3.5-5.1 Specimen slightly motl=611) hemolyzed CHLORIDE (BEAKER) (test 109 meq/L 98-107 sgzb=689) CO2 (BEAKER) (test 23 meq/L 22-29 fwvk=963) BLOOD UREA NITROGEN 24 mg/dL 7-21 (BEAKER) (test vgew=530) CREATININE (BEAKER) (test 0.88 mg/dL 0.57-1.25 Specimen slightly ipwr=732) hemolyzed GLUCOSE RANDOM (BEAKER) 88 mg/dL 70-105 (test rzrz=860) CALCIUM (BEAKER) (test 8.3 mg/dL 8.4-10.2 rfbg=007) AST (SGOT) (BEAKER) (test 51 U/L 5-34 Specimen slightly rbeo=794) hemolyzed ALT (SGPT) (BEAKER) (test 74 U/L 6-55 Specimen slightly gfhj=030) hemolyzed EGFR (BEAKER) (test 89 mL/min/1.73 sq m ESTIMATED GFR IS NOT lakj=7911) ACCURATE CREATININE CLEARANCE IN PREDICTING GLOMERULAR FILTRATION RATE. ESTIMATED GFR IS NOT APPLICABLE FOR DIALYSIS PATIENTS. CBC W/PLT COUNT & AUTO [id number] 05:31:00 Test Item Value Reference Range Comments WHITE BLOOD CELL COUNT (BEAKER) (test wrhm=588) 13.0 K/ L 3.5-10.5 RED BLOOD CELL COUNT (BEAKER) (test yial=475) 4.32 M/ L 4.63-6.08 HEMOGLOBIN (BEAKER) (test grvj=295) 13.0 GM/DL 13.7-17.5 HEMATOCRIT (BEAKER) (test antv=732) 40.5 % 40.1-51.0 MEAN CORPUSCULAR VOLUME (BEAKER) (test ousx=974) 93.8 fL 79.0-92.2 MEAN CORPUSCULAR HEMOGLOBIN (BEAKER) (test 30.1 pg 25.7-32.2 mzfr=571) MEAN CORPUSCULAR HEMOGLOBIN CONC (BEAKER) (test 32.1 GM/DL 32.3-36.5 hvsi=876) RED CELL DISTRIBUTION WIDTH (BEAKER) (test 13.9 % 11.6-14.4 qjce=925) PLATELET COUNT (BEAKER) (test hhpn=582) 215 K/CU MM 150-450 MEAN PLATELET VOLUME (BEAKER) (test psku=889) 11.2 fL 9.4-12.4 NUCLEATED RED BLOOD CELLS (BEAKER) (test 0 /100 WBC 0-0 rngm=736) NEUTROPHILS RELATIVE PERCENT (BEAKER) (test 56 % ykkx=513) LYMPHOCYTES RELATIVE PERCENT (BEAKER) (test 32 % hqrm=881) MONOCYTES RELATIVE PERCENT (BEAKER) (test 9 % skxf=737) EOSINOPHILS RELATIVE PERCENT (BEAKER) (test 2 % folz=282) BASOPHILS RELATIVE PERCENT (BEAKER) (test 1 % kdvx=145) NEUTROPHILS ABSOLUTE COUNT (BEAKER) (test 7.24 K/ L 1.78-5.38 rgyr=633) LYMPHOCYTES ABSOLUTE COUNT (BEAKER) (test 4.17 K/ L 1.32-3.57 bmzx=021) MONOCYTES ABSOLUTE COUNT (BEAKER) (test 1.12 K/ L 0.30-0.82 gczp=069) EOSINOPHILS ABSOLUTE COUNT (BEAKER) (test 0.30 K/ L 0.04-0.54 zgbh=557) BASOPHILS ABSOLUTE COUNT (BEAKER) (test 0.07 K/ L 0.01-0.08 fnmu=026) IMMATURE GRANULOCYTES-RELATIVE PERCENT (BEAKER) 1 % 0-1 (test pydk=0446) EOSINOPHIL SMEAR, [id number] 22:19:00 Test Item Value Reference Range Comments EOSINOPHIL SMEAR, URINE (BEAKER) (test No EOS seen No EOS seen cbzi=8221) URINALYSIS W/ [id number] 22:13:00 Test Item Value Reference Range Comments COLOR (BEAKER) (test dais=509) Yellow CLARITY (BEAKER) (test uipg=936) Clear SPECIFIC GRAVITY UA (BEAKER) (test pavj=555) 1.025 1.001-1.035 PH UA (BEAKER) (test igvf=321) 5.5 5.0-8.0 PROTEIN UA (BEAKER) (test etju=179) 20 mg/dL Negative GLUCOSE UA (BEAKER) (test pqfm=363) 70 mg/dL Negative KETONES UA (BEAKER) (test euqk=321) Negative Negative BILIRUBIN UA (BEAKER) (test qafo=817) Negative Negative BLOOD UA (BEAKER) (test wnna=493) Negative Negative NITRITE UA (BEAKER) (test tabj=679) Negative Negative LEUKOCYTE ESTERASE UA (BEAKER) (test wctu=647) Negative Negative UROBILINOGEN UA (BEAKER) (test cpnm=530) 3.0 mg/dL 0.2-1.0 RBC UA (BEAKER) (test vtiy=065) 0 /HPF WBC UA (BEAKER) (test sdkc=423) 2 /HPF BACTERIA (BEAKER) (test tijk=898) Rare MUCUS (BEAKER) (test gwku=5344) Few SQUAMOUS EPITHELIAL (BEAKER) (test usvw=989) 1 /HPF SOURCE(BEAKER) (test pyyx=5456) SODIUM, RANDOM [id number] 21:38:00 Test Item Value Reference Range Comments SODIUM URINE (BEAKER) (test zcui=545) < meq/L Reference Range: No NormalsPROTEIN, RANDOM [id number] 21:38:00 Test Item Value Reference Range Comments PROTEIN, URINE (BEAKER) (test fcdj=3946) 15 mg/dL 0-14 CREATININE, RANDOM [id number] 21:38:00 Test Item Value Reference Range Comments CREATININE URINE (BEAKER) (test supk=971) 173.4 mg/dL Reference Range: No NormalsRAD, FOOT, 2 VIEWS, [id number] 13:59:00Reason for exam:->Pain and swelling of left foot after fall.FINAL REPORT Two views left foot Discussion: There is hallux valgus with degenerative changes. No visible acute fracture, dislocation, destructive lesion. Soft tissues are unremarkable. Signed: Darren Ariza Verified Date/Time: 05/09/2018 13:59:01 Reading Location: [facility] C0[facility] Consult Reading Room PUL PERF IMAGING, PARTIC, [id number] 12:03:00FINAL REPORT PROCEDURE: V/Q LUNG SCAN CPT CODE: 80141 INDICATION: Acute chest pain, PE suspected, dyspnea, [...] of acute pulmonary embolization. Signed: Edmond Pimentel Verified Date/Time: 05/09/2018 12: 03:05 ReadingLocation: [facility] [address] [facility] Reading Room FL, ESOPH, SWALLOW FUNCTION, WITH CINE OR [id number] 11:00:00Reason for exam:-& gt;chest painFINAL REPORT Esophagram [...] Mild gastroesophageal reflux. Signed : Michael Genao Verified Date/Time: 05/09/2018 11:00:37 Reading Location : [address] Reading Room HEMOGLOBIN [id number] 10:45:00 Test Item Value Reference Range Comments HEMOGLOBIN A1C (BEAKER) (test tckx=569) 6.3 % 4.3-6.1 BASIC METABOLIC [id number] 08:43:00 Test Item Value Reference Range Comments SODIUM (BEAKER) (test 138 meq/L 136-145 ijtz=834) POTASSIUM (BEAKER) (test 3.8 meq/L 3.5-5.1 Specimen slightly pdbe=996) hemolyzed CHLORIDE (BEAKER) (test 104 meq/L 98-107 xxnm=526) CO2 (BEAKER) (test 24 meq/L 22-29 ihib=100) BLOOD UREA NITROGEN 35 mg/dL 7-21 (BEAKER) (test mwkl=589) CREATININE (BEAKER) (test 1.39 mg/dL 0.57-1.25 Specimen slightly wxki=452) hemolyzed GLUCOSE RANDOM (BEAKER) 124 mg/dL 70-105 (test gsze=596) CALCIUM (BEAKER) (test 9.2 mg/dL 8.4-10.2 sfdd=436) EGFR (BEAKER) (test 52 mL/min/1.73 sq m ESTIMATED GFR IS NOT baoa=6118) ACCURATE CREATININE CLEARANCE IN PREDICTING GLOMERULAR FILTRATION RATE. ESTIMATED GFR IS NOT APPLICABLE FOR DIALYSIS PATIENTS. Re-draw per labLIPID [id number] 08:42:00 Test Item Value Reference Range Comments TRIGLYCERIDES (BEAKER) (test 161 mg/dL Specimen slightly hemolyzed xhyw=499) CHOLESTEROL (BEAKER) (test 111 mg/dL Specimen slightly hemolyzed ixhy=387) HDL CHOLESTEROL (BEAKER) (test 39 mg/dL lkvk=177) LDL CHOLESTEROL CALCULATED 40 mg/dL (BEAKER) (test bxpb=462) Triglyceride Reference Range: Low Risk <150 Borderline 150- 199 High Risk 200-499 Very High Risk >=500Cholesterol Reference Range: Low Risk <200 Borderline 200-239 High Risk > 240HDL Cholesterol Reference Range: Low Risk >=60 High Risk <40LDL Cholesterol Reference Range: Optimal <100 Near Optimal 100-129 Borderline 130-159 High 160-189 Very High >=190LITHIUM [id number] 08:31:00 Test Item Value Reference Range Comments LITHIUM LEVEL (BEAKER) (test dbsq=771) 0.4 mmol/L 0.8-1.2 RAPID DRUG SCREEN, [id number] 07:54:00 Test Item Value Reference Range Comments BARBITURATE URINE (BEAKER) (test qisu=109) Negative Negative BENZODIAZEPINE SCREEN URINE (BEAKER) (test Positive Negative bpce=367) COCAINE (METAB.) SCREEN (BEAKER) (test wffr=8021) Negative Negative METHADONE SCREEN (BEAKER) (test knub=5940) Negative Negative OPIATE SCREEN URINE (BEAKER) (test hgmz=007) Positive Negative CANNABINOID SCREEN URINE (BEAKER) (test dbob=343) Negative Negative AMPH/METHAMPH SCREEN (BEAKER) (test sbel=4877) Negative Negative PHENCYCLIDINE SCREEN URINE (BEAKER) (test aepo=041) Negative Negative OXYCODONE SCREEN URINE (BEAKER) (test sslf=2841) Negative Negative DRUG CUTOFF CONC.Cocaine 300 ng/mL Cannabinoid 50 ng/mL Benzodiazepine 200 ng/mLBarbiturate 200 ng/ mLPhencyclidine 25 ng/mLOpiate 300 ng/mLMethadone 300 ng/mLAmphetamine/ 1000 ng/mL MethamphetamineOxycodone 300 ng/mLThis assay provides an unconfirmed qualitative test result for the clinical management of patients in emergency situations. Chain of custody not maintained. Some znec-ije-quueacz medications, as well as adulterants, may cause inaccurate results. Clinical correlation should be applied. A more comprehensive drug screen or confirmation of a detected drug may be performed upon request.CREATINE KINASE (CK), TOTAL AND [id number] 07:47:00 Test Item Value Reference Range Comments CREATINE KINASE TOTAL (BEAKER) (test koqx=746) 161 U/L 29-200 CREATINE KINASE-MB (BEAKER) (test yici=545) 4.9 ng/mL 0.0-6.6 CREATINE KINASE-MB INDEX (BEAKER) (test valm=893) 3.0 % CK-MB Reference Range:<6.7 Normal6.7-10.0 Borderline>10.0 AbnormalTROPONIN [id number] 07:47:00 Test Item Value Reference Range Comments TROPONIN I (BEAKER) (test nzku=988) 0.04 ng/mL 0.00-0.03 Troponin I (TnI) levels [...] acute neurological disease, and persistent tachyarrhythmia.BASIC METABOLIC [id number] 04:56:00 Test Item Value Reference Range Comments SODIUM (BEAKER) (test 139 meq/L 136-145 oenl=807) POTASSIUM (BEAKER) (test 3.4 meq/L 3.5-5.1 xkod=594) CHLORIDE (BEAKER) (test 105 meq/L 98-107 xuch=890) CO2 (BEAKER) (test 25 meq/L 22-29 egoe=931) BLOOD UREA NITROGEN 38 mg/dL 7-21 (BEAKER) (test mlnq=538) CREATININE (BEAKER) (test 1.35 mg/dL 0.57-1.25 czmw=129) GLUCOSE RANDOM (BEAKER) 140 mg/dL 70-105 (test ikbq=615) CALCIUM (BEAKER) (test 8.9 mg/dL 8.4-10.2 opvp=262) EGFR (BEAKER) (test 54 mL/min/1.73 sq m ESTIMATED GFR IS NOT rnfx=3215) ACCURATE CREATININE CLEARANCE IN PREDICTING GLOMERULAR FILTRATION RATE. ESTIMATED GFR IS NOT APPLICABLE FOR DIALYSIS PATIENTS. CBC (HEMOGRAM ONLY)2018-05-09 04:38:00 Test Item Value Reference Range Comments WHITE BLOOD CELL COUNT (BEAKER) (test qged=824) 15.8 K/ L 3.5-10.5 RED BLOOD CELL COUNT (BEAKER) (test dukd=783) 4.80 M/ L 4.63-6.08 HEMOGLOBIN (BEAKER) (test nvfp=893) 14.5 GM/DL 13.7-17.5 HEMATOCRIT (BEAKER) (test xssr=478) 44.0 % 40.1-51.0 MEAN CORPUSCULAR VOLUME (BEAKER) (test inrz=451) 91.7 fL 79.0-92.2 MEAN CORPUSCULAR HEMOGLOBIN (BEAKER) (test 30.2 pg 25.7-32.2 liro=787) MEAN CORPUSCULAR HEMOGLOBIN CONC (BEAKER) (test 33.0 GM/DL 32.3-36.5 tczl=524) RED CELL DISTRIBUTION WIDTH (BEAKER) (test 14.2 % 11.6-14.4 cxkf=376) PLATELET COUNT (BEAKER) (test lcln=919) 238 K/CU MM 150-450 MEAN PLATELET VOLUME (BEAKER) (test pfyg=558) 11.5 fL 9.4-12.4 NUCLEATED RED BLOOD CELLS (BEAKER) (test 0 /100 WBC 0-0 wexr=564) CT, BRAIN, WITHOUT [id number] 21:00:00FINAL REPORT CT, BRAIN, WITHOUT CONTRAST INDICATION: [...] Verified Date/ Time: 05/08/2018 21:00:20 Reading Location: [address] Reading Room B- TYPE NATRIURETIC FACTOR (BNP)2018-05-08 19:03:00 Test Item Value Reference Range Comments B-TYPE NATRIURETIC PEPTIDE (BEAKER) (test 254 pg/mL 0-100 exbd=178) CREATINE KINASE (CK), TOTAL AND [id number] 19:02:00 Test Item Value Reference Range Comments CREATINE KINASE TOTAL (BEAKER) (test fsps=353) 150 U/L 29-200 CREATINE KINASE-MB (BEAKER) (test zkhp=836) 5.5 ng/mL 0.0-6.6 CREATINE KINASE-MB INDEX (BEAKER) (test zhqv=439) 3.7 % CK-MB Reference Range:<6.7 Normal6.7-10.0 Borderline>10.0 AbnormalTROPONIN [id number] 19:02:00 Test Item Value Reference Range Comments TROPONIN I (BEAKER) (test rhqa=427) 0.06 ng/mL 0.00-0.03 Troponin I (TnI) levels [...] acute neurological disease, and persistent tachyarrhythmia.BASIC METABOLIC [id number] 18:32:00 Test Item Value Reference Range Comments SODIUM (BEAKER) (test 137 meq/L 136-145 fbet=037) POTASSIUM (BEAKER) (test 3.9 meq/L 3.5-5.1 tixh=934) CHLORIDE (BEAKER) (test 102 meq/L 98-107 qmty=763) CO2 (BEAKER) (test 24 meq/L 22-29 fzgg=989) BLOOD UREA NITROGEN 35 mg/dL 7-21 (BEAKER) (test gxuv=882) CREATININE (BEAKER) (test 1.56 mg/dL 0.57-1.25 wfaf=139) GLUCOSE RANDOM (BEAKER) 119 mg/dL 70-105 (test dhil=743) CALCIUM (BEAKER) (test 9.3 mg/dL 8.4-10.2 gdsf=028) EGFR (BEAKER) (test 46 mL/min/1.73 sq m ESTIMATED GFR IS NOT xews=3319) ACCURATE CREATININE CLEARANCE IN PREDICTING GLOMERULAR FILTRATION RATE. ESTIMATED GFR IS NOT APPLICABLE FOR DIALYSIS PATIENTS. CBC W/PLT COUNT & AUTO [id number] 18:28:00 Test Item Value Reference Range Comments WHITE BLOOD CELL COUNT (BEAKER) (test xqkk=134) 17.1 K/ L 3.5-10.5 RED BLOOD CELL COUNT (BEAKER) (test smvq=300) 5.16 M/ L 4.63-6.08 HEMOGLOBIN (BEAKER) (test fpnx=927) 15.5 GM/DL 13.7-17.5 HEMATOCRIT (BEAKER) (test kbvb=853) 47.6 % 40.1-51.0 MEAN CORPUSCULAR VOLUME (BEAKER) (test jqoh=772) 92.2 fL 79.0-92.2 MEAN CORPUSCULAR HEMOGLOBIN (BEAKER) (test 30.0 pg 25.7-32.2 deic=508) MEAN CORPUSCULAR HEMOGLOBIN CONC (BEAKER) (test 32.6 GM/DL 32.3-36.5 ymjf=395) RED CELL DISTRIBUTION WIDTH (BEAKER) (test 14.0 % 11.6-14.4 txim=258) PLATELET COUNT (BEAKER) (test unle=937) 297 K/CU MM 150-450 MEAN PLATELET VOLUME (BEAKER) (test plmm=265) 11.3 fL 9.4-12.4 NUCLEATED RED BLOOD CELLS (BEAKER) (test 0 /100 WBC 0-0 qapf=929) NEUTROPHILS RELATIVE PERCENT (BEAKER) (test 78 % kyum=005) LYMPHOCYTES RELATIVE PERCENT (BEAKER) (test 14 % bxuq=146) MONOCYTES RELATIVE PERCENT (BEAKER) (test 7 % wgyz=132) EOSINOPHILS RELATIVE PERCENT (BEAKER) (test 0 % bnfy=506) BASOPHILS RELATIVE PERCENT (BEAKER) (test 0 % aucw=170) NEUTROPHILS ABSOLUTE COUNT (BEAKER) (test 13.35 K/ L 1.78-5.38 idsg=110) LYMPHOCYTES ABSOLUTE COUNT (BEAKER) (test 2.35 K/ L 1.32-3.57 rclx=101) MONOCYTES ABSOLUTE COUNT (BEAKER) (test 1.23 K/ L 0.30-0.82 cydc=805) EOSINOPHILS ABSOLUTE COUNT (BEAKER) (test 0.00 K/ L 0.04-0.54 mwmq=870) BASOPHILS ABSOLUTE COUNT (BEAKER) (test 0.05 K/ L 0.01-0.08 vicf=053) IMMATURE GRANULOCYTES-RELATIVE PERCENT (BEAKER) 1 % 0-1 (test kyhx=4552) [id number] 18:15:00 Test Item Value Reference Range Comments PARTIAL THROMBOPLASTIN TIME (BEAKER) (test 30.0 seconds 22.5-36.0 uupq=311) Prior to initiating heparinXR Fluoroscopy in Imaging per [id number] 12:25: 17Patient: ALHAJI FARAH Date/Time04/05/2018 11:30 CDTReason for Examlumbar laminectomyReportEXAM: FLUOROSCOPIC GUIDANCECLINICAL HISTORY: lumbarlaminectomyTECHNIQUE: Fluoroscopic guidance was provided for spinal procedure.FINDINGS:Fluoroscopic guidance was provided for spinal procedure.Fluoroscopy time: Less than 5 minutesIMPRESSION: Fluoroscopic guidance was provided for spinal procedure.LOCATION: R16 Final Dictated by: MD Kirkland Melanie CDictated DT/TM: 04/05/2018 12:24 pmSigned by: MD Kirkland Melanie CSigned (Electronic Signature): 04/05/2018 12:25 pm
--- OUTSIDE RECORDS SUMMARY | 2019-03-31 14:01 | XMS REPORT ---
[...] Status Dosage System Date Date Clonidine HCl [facility] 52761688368 0.3 MG Orally Nov 30 Inactive 1 tablet Twice a day 2017 Dulera [facility] 96432210409 100-5 MCG/ACT Active 2 puffs Inhalation Twice a day Valproic Acid ND 04639824025 250 MG Orally Inactive not three times a defined day Lisinopril ND 92443735348 10 MG Orally December Inactive 1 tablet Once a day 2017 Coreg [facility] 26962667301 12.5 MG Orally Active not twice a day defined [place] [facility] 24614156477 10-325 MG Active 1 tablet Orally every 6 as needed hrs Lisinopril [facility] 56086335633 40 MG Orally February 28, Active 1 tablet Once a day 2017 amitriptyline [facility] 50315878600 25 mg po February Inactive one tab bedtime 2017 Lisinopril [facility] 68361190910 5 MG Orally Inactive 1 tablet Once a day Clonidine HCl [facility] 91545460591 0.3 MG Orally Inactive 1 tablet Twice a day Amiodarone HCl [facility] 74232278379 200 MG Orally Active 1 tablet Once a day Lipitor [facility] 16200662487 40 MG Orally February 28, Active 1 tablet Once a day 2017 Coreg [facility] 02186824163 12.5 MG Orally December Active as bid 2017 directed Amitriptyline [facility] 26527480735 50 MG Orally February 28, Active 1 tablet HCl Once a day 2017 atarax [facility] 08374878158 Inactive not defined Cheratussin AC [facility] 15210691005 100-10 MG/5ML Inactive 10 ml Orally every 8 hrs Clonidine HCl [facility] 36629295375 0.2 MG Orally February 28, Active 1 tablet twice a day 2017 Results No Known Results Summary Purpose eClinicalWorks Submission
--- OUTSIDE RECORDS SUMMARY | 2019-03-31 14:02 | XMS REPORT ---
[...] Status Dosage System Date Date Amiodarone HCl [facility] 27795738558 200 MG Orally Active 1 tablet Once a day Amitriptyline HCl ND 74965185039 50 MG Orally February 28, Active 1 tablet Once a day 2017 Lisinopril ND 59514098478 40 MG Orally Active 1 tablet Once a day Coreg [facility] 93481179771 12.5 MG Orally Active 2 tabs bid Memantine HCl [facility] 82729985042 10 MG Orally Active 1 tablet Twice a day [place] [facility] 38894964366 10-325 MG Active 1 tablet Orally every 6 as needed hrs Clonidine HCl [facility] 50695029072 0.1 MG Orally April 20, Active 2 tablet twice 2017 twice x 1 week then 1 tablet twice a day for 1 week. Linzess [facility] 61420334697 145 MCG Orally April 20Jun Active 1 capsule Once a day 2017 Lipitor [facility] 94669567066 40 MG Orally Active 1 tablet Once a day Dulera [facility] 25259283475 100-5 MCG/ACT Active 2 puffs Inhalation Twice a day Results No Known Results Summary Purpose eClinicalWorks Submission
--- OUTSIDE RECORDS SUMMARY | 2019-03-31 14:02 | XMS REPORT ---
[...] Dosage System Date Date Clonidine HCl ND 55698247489 0.3 MG Orally Inactive 1 tablet Twice a day Amiodarone HCl ND 83620315052 200 MG Orally Active 1 tablet Once a day Lisinopril ND 04551284216 40 MG Orally Active 1 tablet Once a day Clonidine HCl [facility] 03416438511 0.1 MG Orally April 20, Active 2 tablet twice 2017 twice x 1 week then 1 tablet twice a day for 1 week. Memantine HCl [facility] 58666361026 10 MG Orally Active 1 tablet Twice a day [place] [facility] 44547588133 10-325 MG Active 1 tablet Orally every 6 as needed hrs Lipitor [facility] 16921663425 40 MG Orally Active 1 tablet Once a day Coreg [facility] 95886193032 12.5 MG Orally Active 2 tabs bid Linzess [facility] 10790192662 145 MCG Orally April 20Jun Active 1 capsule Once a day 2017 Amitriptyline [facility] 80505393264 50 MG Orally Active 1 tablet HCl Once a day Dulera [facility] 52474535255 100-5 MCG/ACT Active 2 puffs Inhalation Twice a day Results No Known Results Summary Purpose eClinicalWorks Submission
--- OUTSIDE RECORDS SUMMARY | 2019-03-31 14:02 | XMS REPORT ---
:1960 Author Organization eClinicalWorks Care Team Providers Name Role Phone Heard, Na Provider Role Unavailable Allergies, Adverse Reactions, Alerts Substance Reaction Event Type penicillin rash Drug Allergy Problems Problem Type Condition Code Onset Dates Condition Status Assessment Dementia without behavioral F03.90 Active disturbance, unspecified dementia type Assessment Bipolar 1 disorder F31.9 Active Assessment Hyperlipidemia E78.5 Active Assessment HTN (hypertension) I10 Active Assessment Hospital discharge follow-up Z09 Active Problem Closed displaced fracture of first S92.312S Active metatarsal bone of left foot, sequela Problem Left foot pain M79.672 Active Problem Follow-up exam Z09 Active Problem Atrial fibrillation, unspecified I48.91 Active type Problem Chest pain, unspecified type R07.9 Active Problem History of coronary artery disease Z86.79 Active Problem Lumbar degenerative disc disease M51.36 Active Problem Constipation, unspecified K59.00 Active constipation type Problem Arteriosclerotic cardiovascular I25.10 Active disease (ASCVD) Problem Acute myocardial infarction, I21.4 Active subendocardial infarction Problem Bipolar 1 disorder F31.9 Active Problem Pulmonary emphysema, unspecified J43.9 Active emphysema type Problem Cigarette nicotine dependence F17.210 Active without complication Problem Hypertensive emergency I16.1 Active Problem Dementia without behavioral F03.90 Active disturbance, unspecified dementia type Problem Elevated blood pressure reading R03.0 Active Problem Chronic generalized pain R52 Active Problem Hyperlipidemia E78.5 Active Problem Pure hypercholesterolemia E78.00 Active Problem Primary insomnia F51.01 Active Problem Abdominal pain R10.9 Active Problem Chronic depressive person F34.1 Active Problem Essential hypertension I10 Active Problem HTN (hypertension) I10 Active Medications Medication Code Code Instructions Start End Status Dosage System Date Date Lisinopril ND 59440926108 40 MG Orally Active 1 tablet Once a day Clonidine HCl ND 06714427684 0.1 MG Orally April 20, Active 2 tablet twice 2018 twice x 1 week then 1 tablet twice a day for 1 week. Atorvastatin ND 50617832640 20 MG Orally Jul 27, Active 1 tablet Calcium Once a day 2018 Coreg [facility] 35838790907 12.5 MG Orally Active 2 tabs bid [place] [facility] 89658519023 600 MG Orally Jul 27, Active 1 capsule Carbonate Once a day 2018 at bedtime Amitriptyline [facility] 23916526001 50 MG Orally Active 1 tablet HCl Once a day [place] [facility] 98612333035 10-325 MG Active 1 tablet Orally every 6 as needed hrs Dulera [facility] 20836494581 100-5 MCG/ACT Active 2 puffs Inhalation Twice a day Amiodarone HCl [facility] 40736424710 200 MG Orally Active 1 tablet Once a day HydrALAZINE HCl [facility] 99605469593 25 MG Orally Jul 27, Active 1 tablet every 6 hrs 2018 with food Lipitor [facility] 42676875043 40 MG Orally Inactive 1 tablet Once a day Carvedilol [facility] 02592081786 25 MG Orally Jul 27, Active as 2018 directed Memantine HCl [facility] 58877521800 10 MG Orally Inactive 1 tablet Twice a day Results No Known Results Summary Purpose eClinicalWorks Submission
--- OUTSIDE RECORDS SUMMARY | 2019-03-31 14:02 | XMS REPORT ---
:1960 Author Organization eClinicalWorks Care Team Providers Name Role Phone Heard, Na Provider Role Unavailable Allergies, Adverse Reactions, Alerts Substance Reaction Event Type penicillin rash Drug Allergy Problems Problem Type Condition Code Onset Dates Condition Status Assessment Bipolar 1 disorder F31.9 Active Assessment Dementia without behavioral F03.90 Active disturbance, unspecified dementia type Assessment HTN (hypertension) I10 Active Assessment Hyperlipidemia E78.5 Active Assessment Symptomatic hypotension I95.89 Active Assessment Atherosclerotic heart disease of I25.10 Active [place] coronary artery without angina pectoris Problem Chronic depressive person F34.1 Active Problem Follow-up exam Z09 Active Problem Pulmonary emphysema, unspecified J43.9 Active emphysema type Problem Hypertensive emergency I16.1 Active Problem History of coronary artery disease Z86.79 Active Problem Primary insomnia F51.01 Active Problem Chest pain, unspecified type R07.9 Active Problem Dementia without behavioral F03.90 Active disturbance, unspecified dementia type Problem Cigarette nicotine dependence F17.210 Active without complication Problem Atherosclerotic heart disease of I25.10 Active [place] coronary artery without angina pectoris Problem Symptomatic hypotension I95.89 Active Problem Arteriosclerotic cardiovascular I25.10 Active disease (ASCVD) Problem Acute myocardial infarction, I21.4 Active subendocardial infarction Problem Hospital discharge follow-up Z09 Active Problem Chronic generalized pain R52 Active Problem Constipation, unspecified K59.00 Active constipation type Problem Elevated blood pressure reading R03.0 Active Problem Bipolar 1 disorder F31.9 Active Problem Lumbar degenerative disc disease M51.36 Active Problem Essential hypertension I10 Active Assessment Chest pain, unspecified R07.9 Active Problem HTN (hypertension) I10 Active Problem Pure hypercholesterolemia E78.00 Active Problem Hyperlipidemia E78.5 Active Problem Atrial fibrillation, unspecified I48.91 Active type Problem Closed displaced fracture of first S92.312S Active metatarsal bone of left foot, sequela Problem Abdominal pain R10.9 Active Problem Left foot pain M79.672 Active Medications Medication Code Code Instructions Start End Status Dosage System Date Date [place] NDC 79331195673 600 MG Orally Active 1 capsule Carbonate Once a day at bedtime Amlodipine [facility] 29136894460 10 MG Orally Aug 22, Active 1 tablet Besylate Once a day 2017 Amiodarone HCl [facility] 61998527304 200 MG Orally Active 1 tablet Once a day [place] [facility] 97160223081 10-325 MG Active 1 tablet as Orally every 6 needed hrs Carvedilol [facility] 85085021312 25 MG Orally Active as directed Clonidine HCl [facility] 86292910520 0.1 MG Orally Aug 22, Active 1 tablet at Twice a day 2018 bedtime Coreg [facility] 05278758867 12.5 MG Orally Active 2 tabs bid Dulera [facility] 45059428164 100-5 MCG/ACT Active 2 puffs Inhalation Twice a day Amitriptyline [facility] 17449115490 50 MG Orally Aug 22, Active 1 tablet HCl Once a day 2017 Clonidine HCl [facility] 67026085087 0.1 MG Orally April 20, Active 2 tablet twice 2018 twice x 1 week then 1 tablet twice a day for 1 week. Atorvastatin [facility] 16852567465 20 MG Orally Active 1 tablet Calcium Once a day HydrALAZINE HCl [facility] 95249743004 25 MG Orally Active 1 tablet every 12 hrs with food Lisinopril [facility] 21117724547 40 MG Orally Active 1 tablet Once a day Amitriptyline [facility] 93856454633 50 MG Orally Active 1 tablet HCl Once a day Results No Known Results Summary Purpose eClinicalWorks Submission
--- OUTSIDE RECORDS SUMMARY | 2019-03-31 14:02 | XMS REPORT ---
[...] End Status Dosage System Date Date Coreg [facility] 33187412410 12.5 MG Orally Active not twice a day defined [place] [facility] [address]-60 Active not Carbonate ER defined Coreg [facility] 03109229250 12.5 MG Orally December Active as bid 2017 Clonidine HCl [facility] 90401981951 0.3 MG Orally March 15, Active 1 tablet Twice a day 2017 Memantine HCl [facility] 28884239158 10 MG Orally March 15, Active 1 tablet Twice a day 2017 Lipitor [facility] 70424955841 40 MG Orally February 28, Active 1 tablet Once a day 2017 Dulera [facility] 51500645500 100-5 MCG/ACT Active 2 puffs Inhalation Twice a day Lisinopril [facility] 68176994647 40 MG Orally February 28, Active 1 tablet Once a day 2017 Clonidine HCl [facility] 40241640408 0.2 MG Orally February 28, Inactive 1 tablet twice a day 2017 Amitriptyline [facility] 40792746420 50 MG Orally February 28, Active 1 tablet HCl Once a day 2017 Amiodarone HCl [facility] 40331370214 200 MG Orally Active 1 tablet Once a day [place] [facility] 05801458617 10-325 MG Active 1 tablet Orally every 6 as needed hrs Results No Known Results Summary Purpose eClinicalWorks Submission
--- OUTSIDE RECORDS SUMMARY | 2019-03-31 14:03 | XMS REPORT ---
:1960 Author Organization eClinicalWorks Care Team Providers Name Role Phone Heard, Na Provider Role Unavailable Allergies No Known Allergies Problems Problem Type Condition Code Onset Dates Condition Status Assessment Primary insomnia F51.01 Active Problem Chronic depressive person F34.1 Active [...] Problem Atherosclerotic heart disease of I25.10 Active [place] coronary artery without angina pectoris Problem Symptomatic [...] M51.36 Active Problem Essential hypertension I10 Active Problem [...] Start End Status Dosage System Date Date Amitriptyline HCl [facility] 87524495855 50 MG Orally Active 1 tablet Once a day Results No Known Results Summary Purpose eClinicalWorks Submission
[2019-03-31] MEDS ORDERED: MORPHINE 4 MG/ML SYR ONE ×2 (14:38→16:14)
[2019-03-31] MEDS ORDERED: ONDANSETRON 4 MG/2 ML VIAL ONE (14:38)
[2019-03-31 15:03] LABS: Potassium 3.9 mmol/L (3.5-5.1)
[2019-03-31 15:12] LABS: Absolute Monocytes 0.7 K/uL (0.1-1.3); Absolute Neutrophil 5.5 K/uL (1.8-8.0); Basophils % 0.6 % (0-1.3); Eosinophils % 2.5 % (0-4.4); Hematocrit 38.3 % (39.6-49.0); Lymphocytes % 23.7 % (15.3-44.8); MPV 9.4 fL (7.6-11.3); Monocytes % 8.7 % (3.3-12.3); RBC Red Blood Cell Count 4.12 M/uL (4.33-5.43)
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
[2019-03-31 16:37] VITALS: TEMP 98.2
[2019-03-31 16:40] VITALS: BP 138/83; O2SAT 100
== END 2019-03-31 16:27 | disposition home or self-care (01) ==
LOC: ER 13:53
DX: S39.012A Strain of muscle, fascia and tendon of lower back, initial encounter (principal); S16.1XXA Strain of muscle, fascia and tendon at neck level, initial encounter; V47.5XXA Car driver injured in collision with fixed or stationary object in traffic accident, initial encounter; Z88.0 Allergy status to penicillin; Z88.5 Allergy status to narcotic agent; Z95.1 Presence of aortocoronary bypass graft; I10 Essential (primary) hypertension
CPT/HCPCS: 85025; 80048; 36415; 70450; 72125; 71260; 74177; 96375; 96374; 99284; Q9967; J2405

== ENCOUNTER 2019-04-15 16:40 | Inpatient (IN) | payer OTHER ==
--- OUTSIDE RECORDS SUMMARY | 2019-04-15 16:44 | XMS REPORT | Clinical Summary ---
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); 05/12/2018 Sandhya, Acute kidney injury (HCC); Arielle Ricks, Diarrhea, unspecified type; Hepatitis C virus infection without hepatic coma, unspecified chronicity; Trina Moody, Hypertensive emergency; Paroxysmal atrial fibrillation (HCC); Sebastian Gonzalez, Vasovagal syncope; Transaminitis 05/08/2018 Orders Only General Internal Medicine after 04/14/2018 Social History Tobacco Use Types Packs/Day Years [...] Coronary artery ANGIOS PM CDT disease involving tuscarora heart without angina pectoris, unspecified vessel or [...] 464 ms QTC Calculation(Bazett) 539 ms P [place] 59 degrees R [place] 42 degrees T [place] 90 degrees Normal sinus rhythm Anteroseptal infarct (cited on or before 22-JAN-2016) Prolonged QT ACUTE [place] / STEMI Abnormal ECG When compared with ECG of 29-JAN-2016 05:06, Significant changes have occurred after 04/14/2018 Results RHYTHM STRIP - SCAN (02/03/2019 12:02 [...] (H)Comment: TESTED AT 70 - 110 mg/dL [facility] [address] [facility] [address] Specimen Blood Performing Organization Address City/State/Zipcode Phone Number [facility] [address] [place], [place] [phone] CENTER ECHOCARDIOGRAM REPORT - SCAN (05/12/2018 8:22 AM CDT) Narrative Performed At CBC with platelet count + automated diff (05/12/2018 4:15 AM CDT)Only the most recent of4 resultswithin the time period is included. WBC 9.4 3.5 - 10.5 K/L [facility] RBC 4.48 (L) 4.63 - 6.08 M/L [facility] Hemoglobin 13.6 (L) 13.7 - 17.5 GM/DL [facility] Hematocrit 41.5 40.1 - 51.0 % [facility] MCV 92.6 (H) 79.0 - 92.2 fL [facility] MCH 30.4 25.7 - 32.2 pg [facility] MCHC 32.8 32.3 - 36.5 GM/DL [facility] RDW 13.5 11.6 - 14.4 % [facility] Platelets 218 150 - 450 K/CU MM [facility] MPV 11.3 9.4 - 12.4 fL [facility] nRBC 0 0 - 0 /100 WBC [facility] % Neutros 52 % [facility] % Lymphs 31 % [facility] % Monos 8 % [facility] % Eos 8 % [facility] % Baso 1 % [facility] # Neutros 4.85 1.78 - 5.38 K/L [facility] # Lymphs 2.92 1.32 - 3.57 K/L [facility] # Monos 0.77 0.30 - 0.82 K/L [facility] # Eos 0.79 (H) 0.04 - 0.54 K/L [facility] # Baso 0.06 0.01 - 0.08 K/L [facility] Immature Granulocytes-Relative 0 0 - 1 % [facility] Specimen Blood Performing Organization Address City/State/Zipcode Phone Number [address] [address] [phone] [place] Hepatitis C antibody (05/12/2018 4:15 AM CDT) Hepatitis C Ab Reactive (A) Nonreactive [facility] Specimen Blood Performing Organization Address City/State/Zipcode Phone Number [address] [address] [place] Hepatitis B core antibody, IgM (05/12/2018 4:15 AM CDT) Hep B C IgM Nonreactive Nonreactive [facility] Specimen Blood Performing Organization Address City/[facility]/Zipcode Phone Number [address] [address] [phone] [place] Hepatitis B core antibody, total (05/12/2018 4:15 AM CDT) Hep B Core Total Ab Reactive (A) Nonreactive [facility] Specimen Blood Performing Organization Address City/[facility] Cent[facility] Phone Number [address] [address] CENTER Hepatitis B surface antibody (05/12/2018 4:15 AM CDT) Hep B S Ab <8.0 <8.0 mIU/mL [facility] Specimen Blood Performing Organization Address City/[facility]/Zipcode Phone Number [address] [address] [phone] [place] Hepatitis B surface antigen (05/12/2018 4:15 AM CDT) hepatitis B Surface Ag Nonreactive Nonreactive [facility] Specimen Blood Performing Organization Address City/[facility] Cent[facility]ode Phone Number [address] [address] [place] Hepatic function panel (05/12/2018 4:15 AM CDT) Protein, Total 6.7 6.0 - 8.3 gm/dL [facility] Albumin 3.5 3.5 - 5.0 g/dL [facility] Total Bilirubin 0.5 0.2 - 1.2 mg/dL [facility] Bilirubin, Direct 0.3 0.1 - 0.5 mg/dL [facility] Alkaline Phosphatase 60 40 - 150 U/L [facility] AST 47 (H) 5 - 34 U/L [facility] ALT 67 (H) 6 - 55 U/L [facility] Specimen Blood Performing Organization Address [facility] Centercooh Phone Number [address] [address] [place] Basic metabolic panel (05/12/2018 4:15 AM CDT)Only the most recent of4 resultswithin the time period is included. Sodium 138 136 - 145 meq/L [facility] Potassium 3.8 3.5 - 5.1 meq/L [facility] Chloride 104 98 - 107 meq/L [facility] CO2 25 22 - 29 meq/L [facility] BUN 18 7 - 21 mg/dL [facility] Creatinine 0.94 0.57 - 1.25 mg/dL [facility] Glucose 109 (H) 70 - 105 mg/dL [facility] Calcium 9.1 8.4 - 10.2 mg/dL [facility] EGFR 82Comment: ESTIMATED GFR IS mL/min/1.73 sq m [facility] NOT ACCURATE [facility] CLEARANCE IN PREDICTING GLOMERULAR FILTRATION RATE. ESTIMATED GFR IS NOT APPLICABLE FOR DIALYSIS PATIENTS. Specimen Blood Performing Organization Address City/State/Zipcode Phone Number [facility] [address] [place] [address] CENTER 2D Echo W/Doppler(CW/PW/Color) (05/11/2018 9:07 AM CDT) Ejection Fraction [facility] ECHO [facility] Specimen Narrative Performed At Transthoracic Echocardiography Report (TTE) [facility] HEARTLAB [facility] Demographics Patient Name Carmen MACIAS of Study 05/11/2018 [place] [id number] GenderMale Visit Number [id number] RaceUnknown [id number] m Number [id number] Number Date of Birth1960 Referring Physician JOEY CASILLAS Age57 year(s) Senior Staff Consultant María Elena Hernandez [facility] Physician Procedure Type of Study TTE procedure:2DECHO [...] Study 05/11/2018 [place] Gender Male Visit Number [id number] Race Unknown Room Number [id number] Number Date of 1960 Referring Physician JOEY CASILLAS Age 57 year(s) Senior Staff Consultant Linda Herrera Principal Solutions Architect Melba Combs, Interpreting Key hSaw [facility] Physician Procedure Type of Study TTE procedure:2DECHO [...] City/State/Zipcode Phone Number [facility] ECHO HEARTLAB MKCKESSON [facility] abdomen limited (05/11/2018 8:39 AM CDT) Specimen Narrative Performed At FINAL REPORT [facility] INDICATION: 57-year-old inpatient male with abnormal liver [...] MD Report Verified Date/Time:05/11/2018 16:15:41 Reading Location: [address] Ultrasound Reading Room Procedure Note Interface, [...] Report Verified Date/Time: 05/11/2018 16:15:41 Reading Location: [facility] P006 Ultrasound Reading Room Performing Organization Address City/State/Zipcode Phone Number TERESA HANSEN US Renal with Doppler (05/11/2018 8:39 AM CDT) Specimen Narrative Performed At FINAL REPORT [employer] [place] INDICATION: 57-year-old inpatient male with hypertension. TECHNIQUE: [...] MD Report Verified Date/Time:05/11/2018 16:28:02 Reading Location: [facility] [id number] Ultrasound Reading Room Procedure Note Interface, [...] Report Verified Date/Time: 05/11/2018 16:28:02 Reading Location: [address] Ultrasound Reading Room Performing Organization Address City/State/Zipcode Phone Number [employer] RIS Calcium, Ionized (05/11/2018 3:30 AM CDT)Only the most recent of2 resultswithin the time period is included. Calcium, Ion 1.16 1.12 - 1.27 mmol/L [facility] pH, Blood 7.40 [facility] Specimen Blood Performing Organization Address City/[facility] Centercode Phone Number [address] [place] [address] [phone] CENTER Phosphorus (05/11/2018 3:30 AM CDT)Only the most recent of2 resultswithin the time period is included. Phosphorus 3.5 2.3 - 4.7 mg/dL [facility] Specimen Blood Performing Organization Address City/[facility]/Zipcode Phone Number [address] [address] CENTER Magnesium (05/11/2018 3:30 AM CDT)Only the most recent of2 resultswithin the time period is included. Magnesium 2.4 1.6 - 2.6 mg/dL [facility] Specimen Blood Performing Organization Address City/[facility] Centercode Phone Number [address] [address] [place] Comprehensive metabolic panel (05/11/2018 3:30 AM CDT)Only the most recent of2 resultswithin the time period is included. Protein, Total 6.8 6.0 - 8.3 gm/dL [facility] Albumin 3.6 3.5 - 5.0 g/dL [facility] Alkaline Phosphatase 58 40 - 150 U/L [facility] Total Bilirubin 0.6 0.2 - 1.2 mg/dL [facility] Sodium 140 136 - 145 meq/L [facility] Potassium 3.6 3.5 - 5.1 meq/L [facility] Chloride 105 98 - 107 meq/L [facility] CO2 28 22 - 29 meq/L [facility] BUN 14 7 - 21 mg/dL [facility] Creatinine 0.85 0.57 - 1.25 mg/dL [facility] Glucose 83 70 - 105 mg/dL [facility] Calcium 9.0 8.4 - 10.2 mg/dL [facility] AST 68 (H) 5 - 34 U/L [facility] ALT 72 (H) 6 - 55 U/L [facility] EGFR 92Comment: ESTIMATED GFR mL/min/1.73 sq m [facility] IS NOT ACCURATE [facility] CREATININE CLEARANCE IN PREDICTING GLOMERULAR FILTRATION RATE. ESTIMATED GFR IS NOT APPLICABLE FOR DIALYSIS PATIENTS. Specimen Blood Performing Organization Address City/State/Zipcode Phone Number [facility] [address] [place] [address] [phone] CENTER CTA chest, abdomen & pelvis - for dissection (05/10/2018 6:41 PM CDT) Specimen Narrative Performed At Addendum Begins [employer] [facility] REPORT STATUS:A Addendum: I agree with the previously described non vascular findings. Signed: Antionette Hinojosa MD Report Verified Date/Time:05/11/2018 14:11:09 Reading Location: [facility] P048 Angio Body Reading Room Addendum Ends [...] coronary artery calcification is seen in the tuscarora coronary territories. Patient is post coronary artery [...] thoracic aorta. In the abdominal aorta, circumferential jexs-ac-dbiocadk calcific atherosclerosis is seen. Overall, no ectasia [...] 4.An addendum will be dictated by the Deputy Coroner Radiologist regarding the nonvascular findings. Signed: Magno Augustin MD Report Verified Date/Time:05/10/2018 18:58:16 Reading Location: [place] [address] Cardiology MRI Procedure Note Interface, External Ris In - 05/11/2018 2:13 PM CDT Addendum Begins REPORT STATUS:A Addendum: I agree with the previously described non vascular findings. Signed: Antionette Hinojosa MD Report Verified Date/Time: 05/11/2018 14:11:09 Reading Location: [place] [address] Angio Body Reading Room Addendum Ends FINAL [...] coronary artery calcification is seen in the tuscarora coronary territories. Patient is post coronary artery [...] thoracic aorta. In the abdominal aorta, circumferential pvid-rh-diaqanyf calcific atherosclerosis is seen. Overall, no ectasia [...] An addendum will be dictated by the Deputy Coroner Radiologist regarding the nonvascular findings. Signed: Magno Augustin MD Report Verified Date/Time: 05/10/2018 18:58:16 Reading Location: [place] [address] Cardiology MRI Performing Organization Address City/State/Zipcode Phone Number [employer] CARDIAC CATH REPORT - SCAN (05/10/2018 5:43 PM CDT) Narrative Performed At US renal complete (05/10/2018 11:15 AM CDT) Specimen Narrative Performed At FINAL REPORT [employer] TECHNIQUE: Grayscale ultrasound of the kidneys and [...] MD Report Verified Date/Time:05/10/2018 13:00:32 Reading Location: [address] Ultrasound Reading Room Procedure Note Interface, [...] Report Verified Date/Time: 05/10/2018 13:00:32 Reading Location: [address] Ultrasound Reading Room Performing Organization Address City/[facility]/Zipcode Phone Number [facility] B-type Natriuretic Factor (BNP) (05/10/2018 5:11 AM CDT)Only the most recent of2 resultswithin the time period is included. BNP 153 (H) 0 - 100 pg/mL [facility] Specimen Blood Performing Organization Address City/[facility]/Zipcode Phone Number [facility] [address] [place] [address] CENTER Urinalysis w/Microscopic (05/09/2018 10:02 PM CDT) Color, UA Yellow [facility] Clarity, UA Clear [facility] Specific [place], UA 1.025 1.001 - 1.035 [facility] pH, UA 5.5 5.0 - 8.0 [facility] Protein, UA 20 mg/dL (A) Negative [facility] Glucose, UA 70 mg/dL (A) Negative [facility] Ketones, UA Negative Negative [facility] Bilirubin, UA Negative Negative [facility] Blood, UA Negative Negative [facility] Nitrite, UA Negative Negative [facility] Leukocytes, UA Negative Negative [facility] Urobilinogen, UA 3.0 (H) 0.2 - 1.0 mg/dL [facility] RBC, UA 0 /HPF [facility] WBC, UA 2 /HPF [facility] Bacteria, UA Rare [facility] Mucus Few [facility] Squam Epithel, UA 1 /HPF [facility] Specimen Source [facility] Specimen Urine Performing Organization Address City/[facility]/Zipcode Phone Number [address] [address] [place] Sodium, random urine (05/09/2018 9:38 PM CDT) Sodium Urine <20 meq/L [facility] Specimen Urine Narrative Performed At [facility] Reference Range: No Normals Performing Organization Address City/[facility] Centercode Phone Number [address] [address] [phone] [place] Protein, random urine (05/09/2018 9:38 PM CDT) Protein, Urine 15 (H) 0 - 14 mg/dL [facility] Specimen Urine Performing Organization Address City/[facility]/Zipcode Phone Number [address] [address] [place] Creatinine, random urine (05/09/2018 9:38 PM CDT) Creatinine, Ur 173.4 mg/dL [facility] Specimen Urine Narrative Performed At [facility] Reference Range: No Normals Performing Organization Address [facility]/Zipcode Phone Number [address] [address] [phone] [place] Eosinophil smear (05/09/2018 9:22 PM CDT) Eosinophil Smear No EOS seen No EOS seen [facility] Specimen Urine Performing Organization Address [facility] Centercode Phone Number [address] [address] [phone] [place] TRANSFUSION SERVICE REPORT - SCAN (05/09/2018 5:50 PM CDT) Narrative Performed At NM lung scan (V/Q) (05/09/2018 11:47 AM CDT) Specimen Narrative Performed At FINAL REPORT [employer] [facility] PROCEDURE: V/Q LUNG SCAN CPT CODE: 62712 INDICATION: Acute chest pain, PE suspected, dyspnea, [...] MD Report Verified Date/Time:05/09/2018 12:03:05 Reading Location: [address] Reading Room Procedure Note Interface, External Ris In - 05/09/2018 12:05 PM CDT FINAL REPORT PROCEDURE: V/Q LUNG SCAN CPT CODE: 68130 INDICATION: Acute chest pain, PE suspected, dyspnea, [...] Report Verified Date/Time: 05/09/2018 12:03:05 Reading Location: [address] [address] Reading Room Performing Organization Address [facility] Phone Number [employer] RIS XR foot 2 views left (05/09/2018 10:47 AM CDT) Specimen Narrative Performed At FINAL REPORT [employer] Two views left foot Discussion: There is hallux valgus with degenerative changes. No visible acute fracture, dislocation, destructive lesion. Soft tissues are unremarkable. Signed: Darren Ariza MD Report Verified Date/Time:05/09/2018 13:59:01 Reading Location: [facility] B1 C013W Consult Reading Room Procedure Note Interface, External Ris In - 05/09/2018 2:01 PM CDT FINAL REPORT Two views left foot Discussion: There is hallux valgus with degenerative changes. No visible acute fracture, dislocation, destructive lesion. Soft tissues are unremarkable. Signed: Darren Ariza MD Report Verified Date/Time: 05/09/2018 13:59:01 Reading Location: [facility] B1 C013W Consult Reading Room Performing Organization Address [facility] Center[facility] Phone Number [employer] RIS [place] esoph swallow funct with cine video (05/09/2018 10:30 AM CDT) Specimen Narrative Performed At FINAL REPORT [facility] Esophagram History: chest pain Technique: Esophagram was [...] MD Report Verified Date/Time:05/09/2018 11:00:37 Reading Location: [facility] C0[facility] Ortho Consult Reading Room Procedure Note Interface, [...] Report Verified Date/Time: 05/09/2018 11:00:37 Reading Location: [address] Ortho Consult Reading Room Performing Organization Address City/State/Zipcode Phone Number [facility] Venous doppler legs bilateral (05/09/2018 9:20 AM CDT) Ejection Fraction [facility] ECHO HEARTLAB [facility] Specimen Impressions Performed At Right Impression [facility] ECHO HEART[facility] 1. There is no deep venous obstruction [...] PV LAB - Lower Extremities DVT Study [facility] ECHO HEART[facility] Demographics Patient ALHAJI Gooden Date of Study 05/09/2018 Age 57 Visit [id number] GenderMale Date of 1960 Number Referring Heidy Andres Number [id number] Physician Senior Staff Consultant Elsi Arvizu InterpretingJ. Wilver Gaffney RN, RVTPhysicisaige [...] of Study 05/09/2018 Age 57 Visit Number [id number] Gender Male Date of 1960 Number Ezio Vargas Room Number C620 Physician Senior Staff Consultant Elsi Arvizu Interpreting Annie Gaffney RN, T [...] cm Performing Organization Address City/State/Zipcode Phone Number [facility] ECHO PlanStan [facility] Carotid doppler bilateral (05/09/2018 8:40 AM CDT) Ejection Fraction [facility] ECHO PlanStan [facility] Specimen Impressions Performed At Right Impression [facility] ECHO HEARTYellowKorner [facility] 1. There is <50% diameter reduction (approximately [...] At PV LAB - Carotid Duplex Study [facility] ECHO HEART[facility] Demographics Patient ALHAJI Gooden Date of Study 05/09/2018 Age 57 Visit [id number] GenderMale Date of 1960 Number Ref[address]YDI [address] [facility]ITAL[facility] Number [id number] [facility]ician [facility] Senior Staff Consultant Elsi PhippsJ. Wilver Gaffney RN, Steve HAYES, [facility] Procedure Type of Study: Cerebral: Carotid, CAROTID [...] of Study 05/09/2018 Age 57 Visit Number [id number] Gender Male Date of 1960 Number Ezio SHANKS Room Number [id number] Physician OBED Senior Staff Consultant Elsi Arvizu Interpreting Annie Gaffney RN, RVT [...] Additional Measurements:ICAPSV/CCAPSV 1.06.ICAEDV/CCAEDV 1.83. Performing Organization Address [facility] Centercode Phone Number [facility] E[facility] HEART[facility] CPACS [place] level (05/09/2018 7:54 AM CDT) [place] Level 0.4 (L) 0.8 - 1.2 mmol/L [facility] Specimen Blood Performing Organization Address [facility] Center[facility] Phone Number [address] [address] [phone] [place] Lipid panel (05/09/2018 7:54 AM CDT) Triglycerides 161Comment: Specimen slightly mg/dL [facility] Cholesterol 111Comment: Specimen slightly mg/dL [facility] HDL 39 mg/dL [facility] LDL Calculated 40 mg/dL [facility] Specimen Blood Narrative Performed At [facility] Triglyceride Reference Range: Low Risk <150 [id number] High Risk 200-499 Very High Risk>=500 Cholesterol Reference Range: Low Risk <200 Gzvuytndwu466-425 High Risk>240 HDL Cholesterol Reference Range: Low Risk >=60 High Risk <40 LDL Cholesterol Reference Range: Optimal<100 Near Pafwczx830-529 Kwgpevgqsx845-158 [id number] Very High >=190 Performing Organization Address [facility] Center[facility] Phone Number [address] [address] [place] Rapid drug screen, urine (05/09/2018 6:32 AM CDT) Barbiturate Screen Negative Negative [facility] Benzodiazepine Screen Positive (A) Negative [facility] Cocaine (Metab.) Screen Negative Negative [facility] Methadone Screen Negative Negative [facility] Opiate Screen Positive (A) Negative [facility] Cannabinoid Screen Negative Negative [facility] Amph/Methamph Screen Negative Negative [facility] Phencyclidine Screen Negative Negative [facility] Oxycodone Screen Negative Negative [facility] Specimen Urine Narrative Performed At [facility] DRUGCUTOFF CONC. Cocaine 300 ng/mL Yfyzhmcloji20 ng/mL Ihkbfbeqflvlat308 ng/mL Barbiturate 200 ng/mL Ncxjavrzvscwy55 ng/mL Ruoroi489 ng/mL Methadone 300 ng/mL Amphetamine/ 1000 ng/mL Methamphetamine Oxycodone 300 ng/mL This assay provides an unconfirmed qualitative test result for the clinical management of patients in emergency situations. Chain of custody not maintained. Some sdpr-tcd-txqopak medications, as well as adulterants, may cause inaccurate results. Clinical correlation should be applied. A more comprehensive drug screen or confirmation of a detected drug may be performed upon request. Performing Organization Address City/State/Zipcode Phone Number [address] [address] [place] Hemoglobin A1c (05/09/2018 6:30 AM CDT) Hemoglobin A1C 6.3 (H) 4.3 - 6.1 % [facility] Specimen Blood Performing Organization Address City/[facility]/Zipcode Phone Number [address] [address] [place] Troponin I (05/09/2018 3:53 AM CDT)Only the most recent of2 resultswithin the time period is included. Troponin I 0.04 (H) 0.00 - 0.03 ng/mL [facility] Specimen Blood Narrative Performed At [facility] Troponin I (TnI) levels must be interpreted [...] disease, and persistent tachyarrhythmia. Performing Organization Address City/[facility] Phone Number [address] [phone] [place] CBC (Hemogram only) (05/09/2018 3:53 AM CDT) WBC 15.8 (H) 3.5 - 10.5 K/L [facility] RBC 4.80 4.63 - 6.08 M/L [facility] Hemoglobin 14.5 13.7 - 17.5 GM/DL [facility] Hematocrit 44.0 40.1 - 51.0 % [facility] MCV 91.7 79.0 - 92.2 fL [facility] MCH 30.2 25.7 - 32.2 pg [facility] MCHC 33.0 32.3 - 36.5 GM/DL [facility] RDW 14.2 11.6 - 14.4 % [facility] Platelets 238 150 - 450 K/CU MM [facility] MPV 11.5 9.4 - 12.4 fL [facility] nRBC 0 0 - 0 /100 WBC [facility] Specimen Blood Performing Organization Address City/[facility] Cent[facility]ode Phone Number [facility] [address] [place] [address] [phone] [place] Creatine Kinase (CK), Total and MB (05/09/2018 3:53 AM CDT)Only the most recent of2 resultswithin the time period is included. Total CK 161 29 - 200 U/L [facility] CK-MB 4.9 0.0 - 6.6 ng/mL [facility] MB Relative Index 3.0 % [facility] Specimen Blood Narrative Performed At CK-MB Reference Range: [facility] <6.7Normal 6.7-10.0Borderline >10.0 Abnormal Performing Organization Address City/State/Zipcode Phone Number [facility] [address] [place] [address] brain without IV contrast (05/08/2018 8:55 PM CDT) Specimen Narrative Performed At FINAL REPORT [employer] RIS CT, BRAIN, WITHOUT CONTRAST INDICATION: Cerebral [...] HAYES Report Verified Date/Time:05/08/2018 21:00:20 Reading Location: [address] Reading Room Procedure Note Interface, External [...] Report Verified Date/Time: 05/08/2018 21:00:20 Reading Location: [address] Reading Room Performing Organization Address City/[facility]/Zipcode Phone Number GE RIS Type and screen, automated ([facility]) (05/08/2018 5:54 PM CDT) ABO/RH AUTOMATED (BEAKER) B POSITIVE [facility] Ab Scrn NEGATIVE [facility] Specimen Blood Performing Organization Address City/[facility]/Zipcode Phone Number [address] [address] aPTT (05/08/2018 5:54 PM CDT) PTT 30.0 22.5 - 36.0 seconds [facility] Specimen Blood Narrative Performed At Prior to initiating heparin [facility] Performing Organization Address [facility] Centercode Phone Number [facility] [address] [place] [phone] CENTER ECG 12 lead (05/08/2018 5:11 PM CDT) Specimen Narrative Performed At Ventricular Rate 81 BPM GE MUSE Atrial Rate 81 BPM P-R Interval 170 ms QRS Duration 106 ms Q-T Interval 464 ms QTC Calculation(Bazett) 539 ms P [place] 59 degrees R [place] 42 degrees T [place] 90 degrees Normal sinus rhythm Interatrial conduction [...] leads placement Confirmed by MD JAIMEE, SHELIA ([id number]) on 05/09/2018 5:06:47 AM Procedure Note Interface, External Ris In - 05/09/2018 5:07 AM CDT Ventricular Rate 81 BPM Atrial Rate 81 BPM P-R Interval 170 ms QRS Duration 106 ms Q-T Interval 464 ms QTC Calculation(Bazett) 539 ms P [place] 59 degrees R [place] 42 degrees T [place] 90 degrees Normal sinus rhythm Interatrial conduction [...] leads placement Confirmed by MD JAIMEE, SHELIA ([id number]) on 05/09/2018 5:06:47 AM Performing Organization Address City/State/Zipcode Phone Number TERESA HELM after 04/14/2018 Insurance Payer Benefit Plan / Group Subscriber ID Type Phone Address [employer] - MEDICARE UNITED MED[employer]ARE HMO xxxxxxxxx MGD CARE Advance Directives For more information, please contact:[address] [phone] Code Status Date Activated Date Inactivated Comments [...]
--- OUTSIDE RECORDS SUMMARY | 2019-04-15 16:46 | XMS REPORT | Continuity of Care Document ---
[...] - [place] Acute Active Finding 11/24/[address] [facility] [address] cholecystitis [facility] [place] Medications Medication Details Route Status Patient Ordering Order Source Instructions Provider Date Clonidine Hcl TWICE Active Charly 11/24/ [facility] DAILY 2018 [facility] [place] Carvedilol TWICE Active Charly [facility] DAILY 0600 2018 [facility] - AND [...] [facility] [place] Amiodarone Hcl DAILY Active [facility] 2018 [facility] [place] Aspirin DAILY Active St. 2018 [facility] [place] Simvastatin DAILY Active [facility] 2018 [facility] [place] Amlodipine TWICE Active [facility] DAILY 2017 [facility] [place] Furosemide DAILY Active [facility] 2017 [facility] [place] Budesonide/Formoterol TWICE Active St. Fumarate DAILY 2017 [facility] [place] Amlodipine DAILY Active [facility] 2017 [facility] [place] Clonidine Hcl TWICE Active [facility] St[facility] DAILY 2017 [facility] [place] Lisinopril TWICE Active [facility] St[facility] DAILY 2016 [facility] [place] Albuterol Sulfate THREE Active Prezas [facility] St[facility] TIMES A 2016 [facility] DAY PRN [place] For Shortness Of Breath Hydrochlorothiazide DAILY Active [facility] 2016 [facility] [place] Lisinopril DAILY Active [facility] 2016 [facility] [place] Codeine/Apap EVERY [...] PRN [place] For Pain Amlodipine DAILY Active [facility] 2013 [facility] [place] Allergies, Adverse Reactions, Alerts Substance Category Reaction Severity Reaction Status Date Comments Source type Reported Penicillins Hives/Bonifacio Moderate Allergy to Active [facility] St[facility] h Substance 6 [facility] [place] codeine Itching Allergy to Active [facility] St[facility] Substance 6 [facility] [place] Immunizations Immunization Date Given Site Status Last Updated Comments Source Results Order Name Results Value Reference Date Interpretation Comments Source Range Laboratory Segmented 82 % 40 - 80 11/24 [facility] [address] Studies Neutrophils [facility] [place] Laboratory Monocytes 3 % 0 - 10 11/24 St. Studies /2017 [facility] [place] Laboratory Lymphocytes 13 % 15 - 42 11/24 [facility] [address] Studies [facility] [place] Laboratory Giant Giant 11/24 [facility] [address] Studies Platelets Platelets [facility] [place] Laboratory Blood Blood 11/24 [facility] [address] Studies Morphology Morphology [facility] Comment Comment [place] [facility] Atypical 2 11/24 [facility] [address] Studies Lymphocytes [facility] [place] Laboratory Total 0.4 mg/dL 0.3 - 1.2 11/24 [facility] [address] Studies Bilirubin [facility] [place] Laboratory Sodium Level 136 mEq/L 135 - 145 11/24 St. Studies /2017 [facility] [place] Laboratory Serum Total 6.8 g/dL 6.0 - 8.3 11/24 [facility] [address] Studies Protein /2017 [facility] [place] Laboratory Potassium 3.8 mEq/L 3.6 - 5.0 11/24 [facility]. Studies Level /2017 [facility] [place] Laboratory Magnesium 2.6 mg/dL 1.8 - 2.5 11/24 [facility] [address] Studies Level /2017 [facility] [place] Laboratory Glucose Level 180 mg/dL 65 - 120 11/24 [facility] [address] Studies /2018 [facility] [place] Laboratory Globulin 3.2 g/dL 2.3 - 3.5 11/24 [facility]. Studies /2017 [facility] [place] Laboratory Estimat 42 mL/min 90 11/24 [facility]. Studies Glomerular /2017 [facility] Filtration [place] Rate Laboratory Creatinine 1.67 mg/dL 0.61 - 11/24 [facility]. Studies 1.24 [facility] [place] Laboratory Chloride 103 mEq/L 101 - 111 11/24 [facility]. Studies Level /2017 [facility] [place] Laboratory Carbon 25 mEq/L - 11/24 [facility]. Studies Dioxide Level /2017 [facility] [place] Laboratory Calcium Level 9.1 mg/dL 8.5 - 10.5 11/24 [facility] [address] Studies /2017 [facility] [place] Laboratory Blood Urea 54 mg/dL 6 - 20 11/24 [facility]. Studies Nitrogen /2017 [facility] [place] Laboratory Aspartate 43 IU/L 10 - 42 11/24 [facility]. Studies Amino Transf /2017 [facility] (AST/SGOT) [place] Laboratory Alkaline 23 IU/L 42 - 121 11/24 [facility]. Studies Phosphatase /2017 [facility] [place] Laboratory Albumin/Globu 1.1 1.1 - 1.8 11/24 [facility]. Studies patel Ratio /2017 [facility] [place] Laboratory Albumin 3.6 g/dL 3.2 - 5.5 11/24 [facility]. Studies /2018 [facility] [place] Laboratory Alanine 38 IU/L 10 - 60 11/24 [facility]. Studies Aminotransfer /2017 [facility] ase [place] (ALT/SGPT) Laboratory White Blood 19.3 K/uL 4.3 - 10.9 11/24 [facility]. Studies Count /2017 [facility] [place] Laboratory Red Cell 14.4 % 12.1 - 11/24 [facility]. Studies Distribution 15.2 [facility] Width [place] Laboratory Red Blood 4.53 M/uL 4.33 - 11/24 [facility]. Studies Count 5.43 /2017 [facility] [place] Laboratory Platelet 273 K/uL 152 - 406 11/24 [facility]. Studies Count /2017 [facility] [place] Laboratory Neutrophils % 85.5 % 41.7 - 11/24 [facility] [address] Studies 73.7 /2017 [facility] [place] Laboratory Monocytes % 4.6 % 3.3 - 12.3 11/24 [facility] [address] Studies /2017 [facility] [place] Laboratory Mean Platelet 10.7 fL 7.6 - 11.3 11/24 [facility] [address] Studies Volume /2017 [facility] [place] Laboratory Mean 89.0 fL 80 - 100 11/24 [facility]. Studies Corpuscular /2017 [facility] Volume [place] Laboratory Mean 32.9 g/dL 32.0 - 11/24 [facility]. Studies Corpuscular 36.0 /2017 [facility] Hemoglobin [place] [facility] Laboratory Mean 29.3 pg 27.0 - 11/24 [facility]. Studies Corpuscular 35.0 /2017 [facility] Hemoglobin [place] Laboratory Lymphocytes % 9.6 % 15.3 - 11/24 [facility] [address] Studies 44.8 /2017 [facility] [place] Laboratory Hemoglobin 13.3 g/dL 13.6 - 11/24 [facility] [address] Studies 17.9 /2017 [facility] [place] Laboratory Hematocrit 40.3 % 39.6 - 11/24 [facility] [address] Studies 49.0 [facility] [place] Laboratory Eosinophils % 0.0 % 0 - 4.4 11/24 [facility] [address] Studies /2017 [facility] [place] Laboratory Basophils % 0.3 % 0 - 1.3 11/24 [facility] [address] Studies /2017 [facility] [place] Laboratory Absolute 16.5 K/uL 1.8 - 8.0 11/24 [facility]. Studies Neutrophil /2017 [facility] [place] Laboratory Absolute 0.9 K/uL 0.1 - 1.3 11/24 [facility]. Studies Monocytes /2017 [facility] (CBC) [place] Laboratory Absolute 1.9 K/uL 0.7 - 4.9 11/24 [facility]. Studies Lymphocytes /2017 [facility] (CBC) [place] Laboratory Absolute 0.0 K/uL 0 - 0.5 11/24 [facility] [address] Studies Eosinophils [facility] (CBC) [place] [...] St. Studies Specific Specific /2017 [facility] [place] Laboratory Urine Nitrite Urine 11/21 St. [...] - [place] Laboratory Urine Urine 11/21 [facility]. Studies Appearance Appearance /2017 [facility] [...] - [place] Laboratory Rapid 0.03 ng/mL 11/21 [facility] [address] Studies Troponin I /2017 [facility] [place] Laboratory Lipase 36 U/L 22 - 51 11/21 [facility] [address] Studies /2017 [facility] [place] Laboratory Prothrombin 13.1 9.5 - 12.5 11/21 [facility] [address] Studies Time SECONDS /2017 [facility] [place] Laboratory INR 1.11 11/21 [facility] [address] Studies International /2017 [facility] Normalized [place] Ratio Laboratory Activated 30.7 24.3 - 11/21 [facility] [address] Studies Partial SECONDS 36.9 /2017 [facility] Thromboplast [place] Time Vital Signs Vital Sign Value Date Comments Source Heart Rate 66 11/24/[address] [facility] [address] [place] Systolic (mm Hg) 153 11/24/[address] [facility] [address] [place] - [place] Diastolic (mm Hg) 86 11/24/2017 [facility] [place] Temperature Oral (F) 98.2 F 11/24/2017 [facility] [place] - [place] Respitory Rate 16 11/24/[address] [facility] [address] [place] - [place] Height 69 11/21/[address] [facility] [address] [place] - Marielle Weight 168.50 11/21/2017 [facility] [place] - [place] Encounters Location Location Encounter Encounter Reason Attending ADM DC Status Source Details Type Number For Provider Date Date Visit [facility]charged [id number] 11/21 11/24 [facility] In[facility] 59 /2017 [facility] [place] Procedures Procedure Code Date Perfomer Comments Source Chest Pa And Lat [id number] 11/22/2017 [facility] [place]ya - (2 Views) [place] Anaerobic Blood [id number] 11/21/2017 [facility] [place] - Culture [place] Aerobic Blood [id number] 11/21/[address] [facility] [place] - Culture [place] Chest Abdomen [id number] 11/21/2017 [facility] [place] - Pelvis W Cont [place] Chest Single [id number] 11/21/2017 [facility] [address] [place] - View [place]
--- OUTSIDE RECORDS SUMMARY | 2019-04-15 16:47 | XMS REPORT ---
[...] Status Dosage System Date Date Coreg [facility] 26999968864 12.5 MG Orally Active not twice a day defined Melissa [facility] [address]-39 Active not Carbonate ER defined Coreg [facility] 67163935076 12.5 MG Orally December Active as bid 2017 Clonidine HCl [facility] 81165255028 0.3 MG Orally March 15, Active 1 tablet Twice a day 2017 Memantine HCl [facility] 25471776797 10 MG Orally March 15, Active 1 tablet Twice a day 2017 Lipitor [facility] 49206911733 40 MG Orally February 28, Active 1 tablet Once a day 2017 Dulera [facility] 63263554677 100-5 MCG/ACT Active 2 puffs Inhalation Twice a day Lisinopril [facility] 81083690685 40 MG Orally February 28, Active 1 tablet Once a day 2017 Clonidine HCl [facility] 13050328238 0.2 MG Orally February 28, Inactive 1 tablet twice a day 2017 Amitriptyline [facility] 82749861321 50 MG Orally February 28, Active 1 tablet HCl Once a day 2017 Amiodarone HCl [facility] 43266430727 200 MG Orally Active 1 tablet Once a day [place] [facility] 14754432924 10-325 MG Active 1 tablet Orally every 6 as needed hrs Results No Known Results Summary Purpose eClinicalWorks Submission
--- OUTSIDE RECORDS SUMMARY | 2019-04-15 16:47 | XMS REPORT ---
:1960 [facility] Address [address] [place], [place] [address]aurelia Burns [address] [place] [address] Care Team Providers Name Role Phone GLENN CTAHERINE Unavailable Unavailable Problems This patient has no [...] Range Comments HEPATITIS C ANTIBODY (BEAKER) (test qnsh=293) Reactive Nonreactive POCT-GLUCOSE [id number] 12:03:00 Test Item Value Reference Range Comments POC-GLUCOSE METER (BEAKER) 169 mg/dL 70-110 TESTED AT [address] (test fbmh=0290) [facility] [address] HEPATITIS B CORE ANTIBODY, [id number] 08:37:00 Test Item Value Reference Range Comments HEPATITIS B CORE TOTAL ANTIBODY (BEAKER) (test Reactive Nonreactive yiaf=375) POCT-GLUCOSE [id number] 08:14:00 Test Item Value Reference Range Comments POC-GLUCOSE METER (BEAKER) 105 mg/dL 70-110 TESTED AT [place] [id number] [facility] (test syfe=6942) [facility] [address] HEPATIC FUNCTION [id number] 07:10:00 Test Item Value Reference Range Comments TOTAL PROTEIN (BEAKER) (test vczi=663) 6.7 gm/dL 6.0-8.3 ALBUMIN (BEAKER) (test mwtt=0700) 3.5 g/dL 3.5-5.0 BILIRUBIN TOTAL (BEAKER) (test utir=771) 0.5 mg/dL 0.2-1.2 BILIRUBIN DIRECT (BEAKER) (test zcbn=967) 0.3 mg/dL 0.1-0.5 ALKALINE PHOSPHATASE (BEAKER) (test ledl=638) 60 U/L 40-150 AST (SGOT) (BEAKER) (test pxbq=727) 47 U/L 5-34 ALT (SGPT) (BEAKER) (test kboa=944) 67 U/L 6-55 BASIC METABOLIC [id number] 07:10:00 Test Item Value Reference Range Comments SODIUM (BEAKER) (test 138 meq/L 136-145 isra=178) POTASSIUM (BEAKER) (test 3.8 meq/L 3.5-5.1 yvxp=389) CHLORIDE (BEAKER) (test 104 meq/L 98-107 cvjr=811) CO2 (BEAKER) (test 25 meq/L 22-29 pzyb=927) BLOOD UREA NITROGEN 18 mg/dL 7-21 (BEAKER) (test msnr=350) CREATININE (BEAKER) (test 0.94 mg/dL 0.57-1.25 udgx=682) GLUCOSE RANDOM (BEAKER) 109 mg/dL 70-105 (test aehl=366) CALCIUM (BEAKER) (test 9.1 mg/dL 8.4-10.2 bcmf=234) EGFR (BEAKER) (test 82 mL/min/1.73 sq m ESTIMATED GFR IS NOT jgwv=3135) ACCURATE CREATININE CLEARANCE IN PREDICTING GLOMERULAR FILTRATION RATE. ESTIMATED GFR IS NOT APPLICABLE FOR DIALYSIS PATIENTS. HEPATITIS B SURFACE [id number] 06:58:00 Test Item Value Reference Range Comments HEPATITIS B SURFACE ANTIBODY (BEAKER) (test < mIU/mL <8.0 lttl=788) HEPATITIS B SURFACE [id number] 05:42:00 Test Item Value Reference Range Comments HEPATITIS B SURFACE ANTIGEN (2) (BEAKER) (test Nonreactive Nonreactive pvat=1901) HEPATITIS B CORE ANTIBODY, [id number] 05:42:00 Test Item Value Reference Range Comments HEPATITIS B CORE IGM ANTIBODY (BEAKER) (test Nonreactive Nonreactive tpqr=213) CBC W/PLT COUNT & AUTO [id number] 04:56:00 Test Item Value Reference Range Comments WHITE BLOOD CELL COUNT (BEAKER) (test mcwu=107) 9.4 K/ L 3.5-10.5 RED BLOOD CELL COUNT (BEAKER) (test zqef=631) 4.48 M/ L 4.63-6.08 HEMOGLOBIN (BEAKER) (test fzzi=439) 13.6 GM/DL 13.7-17.5 HEMATOCRIT (BEAKER) (test gurg=800) 41.5 % 40.1-51.0 MEAN CORPUSCULAR VOLUME (BEAKER) (test dxxw=119) 92.6 fL 79.0-92.2 MEAN CORPUSCULAR HEMOGLOBIN (BEAKER) (test 30.4 pg 25.7-32.2 nfit=032) MEAN CORPUSCULAR HEMOGLOBIN CONC (BEAKER) (test 32.8 GM/DL 32.3-36.5 tvny=953) RED CELL DISTRIBUTION WIDTH (BEAKER) (test 13.5 % 11.6-14.4 fshc=840) PLATELET COUNT (BEAKER) (test sugb=605) 218 K/CU MM 150-450 MEAN PLATELET VOLUME (BEAKER) (test ljze=389) 11.3 fL 9.4-12.4 NUCLEATED RED BLOOD CELLS (BEAKER) (test 0 /100 WBC 0-0 avlm=628) NEUTROPHILS RELATIVE PERCENT (BEAKER) (test 52 % tdwf=569) LYMPHOCYTES RELATIVE PERCENT (BEAKER) (test 31 % vkty=462) MONOCYTES RELATIVE PERCENT (BEAKER) (test 8 % clzj=531) EOSINOPHILS RELATIVE PERCENT (BEAKER) (test 8 % gkxd=368) BASOPHILS RELATIVE PERCENT (BEAKER) (test 1 % vixs=347) NEUTROPHILS ABSOLUTE COUNT (BEAKER) (test 4.85 K/ L 1.78-5.38 iuad=490) LYMPHOCYTES ABSOLUTE COUNT (BEAKER) (test 2.92 K/ L 1.32-3.57 gjho=962) MONOCYTES ABSOLUTE COUNT (BEAKER) (test 0.77 K/ L 0.30-0.82 rydi=740) EOSINOPHILS ABSOLUTE COUNT (BEAKER) (test 0.79 K/ L 0.04-0.54 dlqi=203) BASOPHILS ABSOLUTE COUNT (BEAKER) (test 0.06 K/ L 0.01-0.08 aawg=890) IMMATURE GRANULOCYTES-RELATIVE PERCENT (BEAKER) 0 % 0-1 (test ecjc=6293) U/S, RENAL WITH [id number] 16:28:00Reason for exam:-> hypertensionFINAL REPORT INDICATION: 57-year-old [...] Verified Date/Time: 05/11/2018 16: 28:02 Reading Location: [address] Ultrasound Reading Room U/S, ABDOMINAL, [id number] 16:15:00Abdomen limited area? Add comment if clarification [...] Verified Date/Time: 05/11/2018 16 :15:41 Reading Location: [address] Ultrasound Reading Room CTA, CHEST, ABDOMEN - PELVIS, FOR [id number] 14:11:00Reason for exam:->Chest painAddendum BeginsREPORT STATUS:A Addendum: I agree with the previously described non vascular findings. Signed: Antionette Hinojosa MDReport Verified Date/Time: 05/11/2018 14:11:09 Reading Location: [place] [address] Angio Body Reading RoomAddendum EndsFINAL REPORT CT [...] coronary artery calcification is seen in the [place] coronary territories. Patient is post coronary artery [...] thoracic aorta. In the abdominal aorta, circumferential odhu-td-intelnsr calcific atherosclerosis is seen. Overall, no ectasia [...] An addendum will be dictated by the Drilling Field Specialist Radiologist regarding the nonvascular findings. Signed: Magno Augustin Verified Date/Time: 05/10/2018 18:58:16 Reading Location: [place] [address] Cardiology MRI CALCIUM, [id number] 05:20:00 Test Item Value Reference Range Comments CALCIUM IONIZED (BEAKER) (test ssvp=512) 1.16 mmol/L 1.12-1.27 PH, BLOOD (BEAKER) (test wprc=7225) 7.40 [id number] 04:29:00 Test Item Value Reference Range Comments PHOSPHORUS (BEAKER) (test dglz=834) 3.5 mg/dL 2.3-4.7 [id number] 04:29:00 Test Item Value Reference Range Comments MAGNESIUM (BEAKER) (test vuou=192) 2.4 mg/dL 1.6-2.6 COMPREHENSIVE METABOLIC [id number] 04:29:00 Test Item Value Reference Range Comments TOTAL PROTEIN (BEAKER) 6.8 gm/dL 6.0-8.3 (test xegd=689) ALBUMIN (BEAKER) (test 3.6 g/dL 3.5-5.0 acnh=2403) ALKALINE PHOSPHATASE 58 U/L 40-150 (BEAKER) (test aujh=658) BILIRUBIN TOTAL (BEAKER) 0.6 mg/dL 0.2-1.2 (test qmsj=168) SODIUM (BEAKER) (test 140 meq/L 136-145 ihqj=068) POTASSIUM (BEAKER) (test 3.6 meq/L 3.5-5.1 uzbd=293) CHLORIDE (BEAKER) (test 105 meq/L 98-107 oznd=540) CO2 (BEAKER) (test 28 meq/L 22-29 sqfl=388) BLOOD UREA NITROGEN 14 mg/dL 7-21 (BEAKER) (test yvcj=228) CREATININE (BEAKER) (test 0.85 mg/dL 0.57-1.25 wuaq=737) GLUCOSE RANDOM (BEAKER) 83 mg/dL 70-105 (test dsbz=229) CALCIUM (BEAKER) (test 9.0 mg/dL 8.4-10.2 eerf=186) AST (SGOT) (BEAKER) (test 68 U/L 5-34 csvv=264) ALT (SGPT) (BEAKER) (test 72 U/L 6-55 euuy=325) EGFR (BEAKER) (test 92 mL/min/1.73 sq m ESTIMATED GFR IS NOT qdbk=1711) ACCURATE CREATININE CLEARANCE IN PREDICTING GLOMERULAR FILTRATION RATE. ESTIMATED GFR IS NOT APPLICABLE FOR DIALYSIS PATIENTS. CBC W/PLT COUNT & AUTO [id number] 03:58:00 Test Item Value Reference Range Comments WHITE BLOOD CELL COUNT (BEAKER) (test tvhb=081) 10.2 K/ L 3.5-10.5 RED BLOOD CELL COUNT (BEAKER) (test hwqp=107) 4.49 M/ L 4.63-6.08 HEMOGLOBIN (BEAKER) (test tyig=769) 13.4 GM/DL 13.7-17.5 HEMATOCRIT (BEAKER) (test kvfo=370) 41.7 % 40.1-51.0 MEAN CORPUSCULAR VOLUME (BEAKER) (test tblp=085) 92.9 fL 79.0-92.2 MEAN CORPUSCULAR HEMOGLOBIN (BEAKER) (test 29.8 pg 25.7-32.2 ggdc=919) MEAN CORPUSCULAR HEMOGLOBIN CONC (BEAKER) (test 32.1 GM/DL 32.3-36.5 xibk=722) RED CELL DISTRIBUTION WIDTH (BEAKER) (test 13.7 % 11.6-14.4 xssp=129) PLATELET COUNT (BEAKER) (test rlmx=374) 192 K/CU MM 150-450 MEAN PLATELET VOLUME (BEAKER) (test rzcp=348) 10.7 fL 9.4-12.4 NUCLEATED RED BLOOD CELLS (BEAKER) (test 0 /100 WBC 0-0 wzow=056) NEUTROPHILS RELATIVE PERCENT (BEAKER) (test 53 % kvqn=486) LYMPHOCYTES RELATIVE PERCENT (BEAKER) (test 32 % rbyw=521) MONOCYTES RELATIVE PERCENT (BEAKER) (test 9 % fjob=334) EOSINOPHILS RELATIVE PERCENT (BEAKER) (test 5 % cwig=791) BASOPHILS RELATIVE PERCENT (BEAKER) (test 1 % sbue=517) NEUTROPHILS ABSOLUTE COUNT (BEAKER) (test 5.36 K/ L 1.78-5.38 sodp=043) LYMPHOCYTES ABSOLUTE COUNT (BEAKER) (test 3.23 K/ L 1.32-3.57 zkbh=654) MONOCYTES ABSOLUTE COUNT (BEAKER) (test 0.93 K/ L 0.30-0.82 fqjm=433) EOSINOPHILS ABSOLUTE COUNT (BEAKER) (test 0.54 K/ L 0.04-0.54 wsph=867) BASOPHILS ABSOLUTE COUNT (BEAKER) (test 0.07 K/ L 0.01-0.08 kfdr=336) IMMATURE GRANULOCYTES-RELATIVE PERCENT (BEAKER) 0 % 0-1 (test pvmw=5154) U/S, RENAL, [id number] 13:00:00Reason for exam:->akiShould this be performed at [...] MDReport Verified Date/Time: 05/10/2018 13:00:32 Reading Location: [address] Ultrasound Reading Room CALCIUM, [id number] 06:58:00 Test Item Value Reference Range Comments CALCIUM IONIZED (BEAKER) (test cgam=553) 1.08 mmol/L 1.12-1.27 PH, BLOOD (BEAKER) (test vhuh=0364) 7.35 B-TYPE NATRIURETIC FACTOR (BNP)2018-05-10 05:49:00 Test Item Value Reference Range Comments B-TYPE NATRIURETIC PEPTIDE (BEAKER) (test 153 pg/mL 0-100 coox=702) [id number] 05:47:00 Test Item Value Reference Range Comments MAGNESIUM (BEAKER) (test 2.4 mg/dL 1.6-2.6 Specimen slightly hemolyzed hive=045) [id number] 05:47:00 Test Item Value Reference Range Comments PHOSPHORUS (BEAKER) (test 2.7 mg/dL 2.3-4.7 Specimen slightly hemolyzed attb=740) COMPREHENSIVE METABOLIC [id number] 05:47:00 Test Item Value Reference Range Comments TOTAL PROTEIN (BEAKER) 6.1 gm/dL 6.0-8.3 Specimen slightly (test dfyz=101) hemolyzed ALBUMIN (BEAKER) (test 3.2 g/dL 3.5-5.0 Specimen slightly bsvb=7542) hemolyzed ALKALINE PHOSPHATASE 48 U/L 40-150 (BEAKER) (test ngxa=707) BILIRUBIN TOTAL (BEAKER) 0.8 mg/dL 0.2-1.2 Specimen slightly (test jguq=258) hemolyzed SODIUM (BEAKER) (test 140 meq/L 136-145 vvfe=476) POTASSIUM (BEAKER) (test 4.1 meq/L 3.5-5.1 Specimen slightly fbom=931) hemolyzed CHLORIDE (BEAKER) (test 109 meq/L 98-107 kvbf=765) CO2 (BEAKER) (test 23 meq/L 22-29 gvyi=399) BLOOD UREA NITROGEN 24 mg/dL 7-21 (BEAKER) (test ovcx=771) CREATININE (BEAKER) (test 0.88 mg/dL 0.57-1.25 Specimen slightly cxjo=055) hemolyzed GLUCOSE RANDOM (BEAKER) 88 mg/dL 70-105 (test jeld=060) CALCIUM (BEAKER) (test 8.3 mg/dL 8.4-10.2 grsj=949) AST (SGOT) (BEAKER) (test 51 U/L 5-34 Specimen slightly ezci=954) hemolyzed ALT (SGPT) (BEAKER) (test 74 U/L 6-55 Specimen slightly wfdo=816) hemolyzed EGFR (BEAKER) (test 89 mL/min/1.73 sq m ESTIMATED GFR IS NOT jtti=7997) ACCURATE CREATININE CLEARANCE IN PREDICTING GLOMERULAR FILTRATION RATE. ESTIMATED GFR IS NOT APPLICABLE FOR DIALYSIS PATIENTS. CBC W/PLT COUNT & AUTO [id number] 05:31:00 Test Item Value Reference Range Comments WHITE BLOOD CELL COUNT (BEAKER) (test riip=964) 13.0 K/ L 3.5-10.5 RED BLOOD CELL COUNT (BEAKER) (test jfyj=844) 4.32 M/ L 4.63-6.08 HEMOGLOBIN (BEAKER) (test elek=643) 13.0 GM/DL 13.7-17.5 HEMATOCRIT (BEAKER) (test ktmr=241) 40.5 % 40.1-51.0 MEAN CORPUSCULAR VOLUME (BEAKER) (test fqfj=541) 93.8 fL 79.0-92.2 MEAN CORPUSCULAR HEMOGLOBIN (BEAKER) (test 30.1 pg 25.7-32.2 ucgd=297) MEAN CORPUSCULAR HEMOGLOBIN CONC (BEAKER) (test 32.1 GM/DL 32.3-36.5 vquy=003) RED CELL DISTRIBUTION WIDTH (BEAKER) (test 13.9 % 11.6-14.4 ccni=558) PLATELET COUNT (BEAKER) (test vmlk=337) 215 K/CU MM 150-450 MEAN PLATELET VOLUME (BEAKER) (test wsfz=603) 11.2 fL 9.4-12.4 NUCLEATED RED BLOOD CELLS (BEAKER) (test 0 /100 WBC 0-0 zjtu=092) NEUTROPHILS RELATIVE PERCENT (BEAKER) (test 56 % akgb=736) LYMPHOCYTES RELATIVE PERCENT (BEAKER) (test 32 % rmhd=176) MONOCYTES RELATIVE PERCENT (BEAKER) (test 9 % zhup=229) EOSINOPHILS RELATIVE PERCENT (BEAKER) (test 2 % ssyn=027) BASOPHILS RELATIVE PERCENT (BEAKER) (test 1 % ohol=859) NEUTROPHILS ABSOLUTE COUNT (BEAKER) (test 7.24 K/ L 1.78-5.38 ofwj=110) LYMPHOCYTES ABSOLUTE COUNT (BEAKER) (test 4.17 K/ L 1.32-3.57 zaam=469) MONOCYTES ABSOLUTE COUNT (BEAKER) (test 1.12 K/ L 0.30-0.82 yjld=327) EOSINOPHILS ABSOLUTE COUNT (BEAKER) (test 0.30 K/ L 0.04-0.54 nxoi=989) BASOPHILS ABSOLUTE COUNT (BEAKER) (test 0.07 K/ L 0.01-0.08 huqt=259) IMMATURE GRANULOCYTES-RELATIVE PERCENT (BEAKER) 1 % 0-1 (test cide=8065) EOSINOPHIL SMEAR, [id number] 22:19:00 Test Item Value Reference Range Comments EOSINOPHIL SMEAR, URINE (BEAKER) (test No EOS seen No EOS seen gefo=6343) URINALYSIS W/ [id number] 22:13:00 Test Item Value Reference Range Comments COLOR (BEAKER) (test qpmh=866) Yellow CLARITY (BEAKER) (test fudg=585) Clear SPECIFIC GRAVITY UA (BEAKER) (test sawz=205) 1.025 1.001-1.035 PH UA (BEAKER) (test glps=060) 5.5 5.0-8.0 PROTEIN UA (BEAKER) (test ztzu=568) 20 mg/dL Negative GLUCOSE UA (BEAKER) (test drrb=184) 70 mg/dL Negative KETONES UA (BEAKER) (test heul=634) Negative Negative BILIRUBIN UA (BEAKER) (test egey=521) Negative Negative BLOOD UA (BEAKER) (test hxsm=205) Negative Negative NITRITE UA (BEAKER) (test erke=330) Negative Negative LEUKOCYTE ESTERASE UA (BEAKER) (test adtj=924) Negative Negative UROBILINOGEN UA (BEAKER) (test mmop=917) 3.0 mg/dL 0.2-1.0 RBC UA (BEAKER) (test oobv=729) 0 /HPF WBC UA (BEAKER) (test ibot=887) 2 /HPF BACTERIA (BEAKER) (test wqrr=256) Rare MUCUS (BEAKER) (test mumm=3553) Few SQUAMOUS EPITHELIAL (BEAKER) (test xtjv=302) 1 /HPF SOURCE(BEAKER) (test cuih=3497) SODIUM, RANDOM [id number] 21:38:00 Test Item Value Reference Range Comments SODIUM URINE (BEAKER) (test ufin=451) < meq/L Reference Range: No NormalsPROTEIN, RANDOM [id number] 21:38:00 Test Item Value Reference Range Comments PROTEIN, URINE (BEAKER) (test swsm=6782) 15 mg/dL 0-14 CREATININE, RANDOM [id number] 21:38:00 Test Item Value Reference Range Comments CREATININE URINE (BEAKER) (test fkom=626) 173.4 mg/dL Reference Range: No NormalsRAD, FOOT, 2 VIEWS, [id number] 13:59:00Reason for exam:->Pain and swelling of left foot after fall.FINAL REPORT Two views left foot Discussion: There is hallux valgus with degenerative changes. No visible acute fracture, dislocation, destructive lesion. Soft tissues are unremarkable. Signed: Darren Ariza MDReport Verified Date/Time: 05/09/2018 13:59:01 Reading Location: [address] Consult Reading Room PUL PERF IMAGING, PARTIC, [id number] 12:03:00FINAL REPORT PROCEDURE: V/Q LUNG SCAN CPT CODE: 37735 INDICATION: Acute chest pain, PE suspected, dyspnea, [...] Pimentel Verified Date/Time: 05/09/2018 12: 03:05 ReadingLocation: [facility] [address] [address] [facility] Reading Room FL, ESOPH, SWALLOW FUNCTION, WITH CINE OR [id number] 11:00:00Reason for exam:-& gt;chest painFINAL REPORT Esophagram [...] Verified Date/Time: 05/09/2018 11:00:37 Reading Location : [facility] [address] [facility] Reading Room HEMOGLOBIN [id number] 10:45:00 Test Item Value Reference Range Comments HEMOGLOBIN A1C (BEAKER) (test tjod=637) 6.3 % 4.3-6.1 BASIC METABOLIC [id number] 08:43:00 Test Item Value Reference Range Comments SODIUM (BEAKER) (test 138 meq/L 136-145 ncga=217) POTASSIUM (BEAKER) (test 3.8 meq/L 3.5-5.1 Specimen slightly yqko=638) hemolyzed CHLORIDE (BEAKER) (test 104 meq/L 98-107 itxa=332) CO2 (BEAKER) (test 24 meq/L 22-29 hsaj=701) BLOOD UREA NITROGEN 35 mg/dL 7-21 (BEAKER) (test fkey=703) CREATININE (BEAKER) (test 1.39 mg/dL 0.57-1.25 Specimen slightly zkls=575) hemolyzed GLUCOSE RANDOM (BEAKER) 124 mg/dL 70-105 (test ozii=462) CALCIUM (BEAKER) (test 9.2 mg/dL 8.4-10.2 qumk=159) EGFR (BEAKER) (test 52 mL/min/1.73 sq m ESTIMATED GFR IS NOT quak=0144) ACCURATE CREATININE CLEARANCE IN PREDICTING GLOMERULAR FILTRATION RATE. ESTIMATED GFR IS NOT APPLICABLE FOR DIALYSIS PATIENTS. Re-draw per labLIPID [id number] 08:42:00 Test Item Value Reference Range Comments TRIGLYCERIDES (BEAKER) (test 161 mg/dL Specimen slightly hemolyzed dmnu=641) CHOLESTEROL (BEAKER) (test 111 mg/dL Specimen slightly hemolyzed cqdw=085) HDL CHOLESTEROL (BEAKER) (test 39 mg/dL tndb=977) LDL CHOLESTEROL CALCULATED 40 mg/dL (BEAKER) (test rfrk=309) Triglyceride Reference Range: Low Risk <150 Borderline 150- 199 High Risk 200-499 Very High Risk >=500Cholesterol Reference Range: Low Risk <200 Borderline 200-239 High Risk > 240HDL Cholesterol Reference Range: Low Risk >=60 High Risk <40LDL Cholesterol Reference Range: Optimal <100 Near Optimal 100-129 Borderline 130-159 High 160-189 Very High >=190LITHIUM [id number] 08:31:00 Test Item Value Reference Range Comments LITHIUM LEVEL (BEAKER) (test atgr=297) 0.4 mmol/L 0.8-1.2 RAPID DRUG SCREEN, [id number] 07:54:00 Test Item Value Reference Range Comments BARBITURATE URINE (BEAKER) (test ucmi=927) Negative Negative BENZODIAZEPINE SCREEN URINE (BEAKER) (test Positive Negative lmvu=871) COCAINE (METAB.) SCREEN (BEAKER) (test cfym=9490) Negative Negative METHADONE SCREEN (BEAKER) (test tpjj=1091) Negative Negative OPIATE SCREEN URINE (BEAKER) (test lmic=379) Positive Negative CANNABINOID SCREEN URINE (BEAKER) (test uwsg=380) Negative Negative AMPH/METHAMPH SCREEN (BEAKER) (test ljls=9694) Negative Negative PHENCYCLIDINE SCREEN URINE (BEAKER) (test kedx=432) Negative Negative OXYCODONE SCREEN URINE (BEAKER) (test kuze=0156) Negative Negative DRUG CUTOFF CONC.Cocaine 300 ng/mL Cannabinoid 50 ng/mL Benzodiazepine 200 ng/mLBarbiturate 200 ng/ mLPhencyclidine 25 ng/mLOpiate 300 ng/mLMethadone 300 ng/mLAmphetamine/ 1000 ng/mL MethamphetamineOxycodone 300 ng/mLThis assay provides an unconfirmed qualitative test result for the clinical management of patients in emergency situations. Chain of custody not maintained. Some vuih-dlw-vojkooz medications, as well as adulterants, may cause inaccurate results. Clinical correlation should be applied. A more comprehensive drug screen or confirmation of a detected drug may be performed upon request.CREATINE KINASE (CK), TOTAL AND [id number] 07:47:00 Test Item Value Reference Range Comments CREATINE KINASE TOTAL (BEAKER) (test macs=085) 161 U/L 29-200 CREATINE KINASE-MB (BEAKER) (test ttli=632) 4.9 ng/mL 0.0-6.6 CREATINE KINASE-MB INDEX (BEAKER) (test hstq=144) 3.0 % CK-MB Reference Range:<6.7 Normal6.7-10.0 Borderline>10.0 AbnormalTROPONIN [id number] 07:47:00 Test Item Value Reference Range Comments TROPONIN I (BEAKER) (test cuhu=286) 0.04 ng/mL 0.00-0.03 Troponin I (TnI) levels [...] acute neurological disease, and persistent tachyarrhythmia.BASIC METABOLIC [id number] 04:56:00 Test Item Value Reference Range Comments SODIUM (BEAKER) (test 139 meq/L 136-145 xzad=810) POTASSIUM (BEAKER) (test 3.4 meq/L 3.5-5.1 qgpe=910) CHLORIDE (BEAKER) (test 105 meq/L 98-107 zqgj=288) CO2 (BEAKER) (test 25 meq/L 22-29 escf=795) BLOOD UREA NITROGEN 38 mg/dL 7-21 (BEAKER) (test hubh=029) CREATININE (BEAKER) (test 1.35 mg/dL 0.57-1.25 nyeo=881) GLUCOSE RANDOM (BEAKER) 140 mg/dL 70-105 (test yllj=118) CALCIUM (BEAKER) (test 8.9 mg/dL 8.4-10.2 vohu=427) EGFR (BEAKER) (test 54 mL/min/1.73 sq m ESTIMATED GFR IS NOT nqwn=7359) ACCURATE CREATININE CLEARANCE IN PREDICTING GLOMERULAR FILTRATION RATE. ESTIMATED GFR IS NOT APPLICABLE FOR DIALYSIS PATIENTS. CBC (HEMOGRAM ONLY)2018-05-09 04:38:00 Test Item Value Reference Range Comments WHITE BLOOD CELL COUNT (BEAKER) (test zvfd=443) 15.8 K/ L 3.5-10.5 RED BLOOD CELL COUNT (BEAKER) (test teie=278) 4.80 M/ L 4.63-6.08 HEMOGLOBIN (BEAKER) (test ncsg=233) 14.5 GM/DL 13.7-17.5 HEMATOCRIT (BEAKER) (test wmvq=448) 44.0 % 40.1-51.0 MEAN CORPUSCULAR VOLUME (BEAKER) (test tdup=294) 91.7 fL 79.0-92.2 MEAN CORPUSCULAR HEMOGLOBIN (BEAKER) (test 30.2 pg 25.7-32.2 xpaq=321) MEAN CORPUSCULAR HEMOGLOBIN CONC (BEAKER) (test 33.0 GM/DL 32.3-36.5 pdqu=957) RED CELL DISTRIBUTION WIDTH (BEAKER) (test 14.2 % 11.6-14.4 edyq=030) PLATELET COUNT (BEAKER) (test ores=269) 238 K/CU MM 150-450 MEAN PLATELET VOLUME (BEAKER) (test sfap=585) 11.5 fL 9.4-12.4 NUCLEATED RED BLOOD CELLS (BEAKER) (test 0 /100 WBC 0-0 fjch=526) CT, BRAIN, WITHOUT [id number] 21:00:00FINAL REPORT CT, BRAIN, WITHOUT CONTRAST INDICATION: [...] Verified Date/ Time: 05/08/2018 21:00:20 Reading Location: [address] Reading Room B- TYPE NATRIURETIC FACTOR (BNP)2018-05-08 19:03:00 Test Item Value Reference Range Comments B-TYPE NATRIURETIC PEPTIDE (BEAKER) (test 254 pg/mL 0-100 kvem=014) CREATINE KINASE (CK), TOTAL AND [id number] 19:02:00 Test Item Value Reference Range Comments CREATINE KINASE TOTAL (BEAKER) (test kwxu=734) 150 U/L 29-200 CREATINE KINASE-MB (BEAKER) (test ygke=027) 5.5 ng/mL 0.0-6.6 CREATINE KINASE-MB INDEX (BEAKER) (test gcnd=516) 3.7 % CK-MB Reference Range:<6.7 Normal6.7-10.0 Borderline>10.0 AbnormalTROPONIN [id number] 19:02:00 Test Item Value Reference Range Comments TROPONIN I (BEAKER) (test wlru=683) 0.06 ng/mL 0.00-0.03 Troponin I (TnI) levels [...] acute neurological disease, and persistent tachyarrhythmia.BASIC METABOLIC [id number] 18:32:00 Test Item Value Reference Range Comments SODIUM (BEAKER) (test 137 meq/L 136-145 oieq=763) POTASSIUM (BEAKER) (test 3.9 meq/L 3.5-5.1 tnua=207) CHLORIDE (BEAKER) (test 102 meq/L 98-107 irmj=818) CO2 (BEAKER) (test 24 meq/L 22-29 plwn=701) BLOOD UREA NITROGEN 35 mg/dL 7-21 (BEAKER) (test zjsz=054) CREATININE (BEAKER) (test 1.56 mg/dL 0.57-1.25 qvai=579) GLUCOSE RANDOM (BEAKER) 119 mg/dL 70-105 (test jevc=677) CALCIUM (BEAKER) (test 9.3 mg/dL 8.4-10.2 tcri=394) EGFR (BEAKER) (test 46 mL/min/1.73 sq m ESTIMATED GFR IS NOT dlah=7934) ACCURATE CREATININE CLEARANCE IN PREDICTING GLOMERULAR FILTRATION RATE. ESTIMATED GFR IS NOT APPLICABLE FOR DIALYSIS PATIENTS. CBC W/PLT COUNT & AUTO [id number] 18:28:00 Test Item Value Reference Range Comments WHITE BLOOD CELL COUNT (BEAKER) (test uuck=492) 17.1 K/ L 3.5-10.5 RED BLOOD CELL COUNT (BEAKER) (test affi=517) 5.16 M/ L 4.63-6.08 HEMOGLOBIN (BEAKER) (test qnux=906) 15.5 GM/DL 13.7-17.5 HEMATOCRIT (BEAKER) (test gimw=690) 47.6 % 40.1-51.0 MEAN CORPUSCULAR VOLUME (BEAKER) (test lzer=487) 92.2 fL 79.0-92.2 MEAN CORPUSCULAR HEMOGLOBIN (BEAKER) (test 30.0 pg 25.7-32.2 auww=981) MEAN CORPUSCULAR HEMOGLOBIN CONC (BEAKER) (test 32.6 GM/DL 32.3-36.5 wnzk=619) RED CELL DISTRIBUTION WIDTH (BEAKER) (test 14.0 % 11.6-14.4 wnwo=278) PLATELET COUNT (BEAKER) (test cszr=856) 297 K/CU MM 150-450 MEAN PLATELET VOLUME (BEAKER) (test tsak=589) 11.3 fL 9.4-12.4 NUCLEATED RED BLOOD CELLS (BEAKER) (test 0 /100 WBC 0-0 kroq=082) NEUTROPHILS RELATIVE PERCENT (BEAKER) (test 78 % kwzr=397) LYMPHOCYTES RELATIVE PERCENT (BEAKER) (test 14 % nwmv=812) MONOCYTES RELATIVE PERCENT (BEAKER) (test 7 % tvys=560) EOSINOPHILS RELATIVE PERCENT (BEAKER) (test 0 % mfba=218) BASOPHILS RELATIVE PERCENT (BEAKER) (test 0 % kkim=270) NEUTROPHILS ABSOLUTE COUNT (BEAKER) (test 13.35 K/ L 1.78-5.38 owtb=708) LYMPHOCYTES ABSOLUTE COUNT (BEAKER) (test 2.35 K/ L 1.32-3.57 cqdk=344) MONOCYTES ABSOLUTE COUNT (BEAKER) (test 1.23 K/ L 0.30-0.82 tztx=884) EOSINOPHILS ABSOLUTE COUNT (BEAKER) (test 0.00 K/ L 0.04-0.54 wnqx=947) BASOPHILS ABSOLUTE COUNT (BEAKER) (test 0.05 K/ L 0.01-0.08 ytvg=390) IMMATURE GRANULOCYTES-RELATIVE PERCENT (BEAKER) 1 % 0-1 (test qcnc=1465) [id number] 18:15:00 Test Item Value Reference Range Comments PARTIAL THROMBOPLASTIN TIME (BEAKER) (test 30.0 seconds 22.5-36.0 nmhe=263) Prior to initiating heparinXR Fluoroscopy in Imaging per [id number] 12:25: 17Patient: ALHAJI FARAH Date/Time04/05/2018 11:30 CDTReason [...]
--- OUTSIDE RECORDS SUMMARY | 2019-04-15 16:47 | XMS REPORT ---
[...] End Status Dosage System Date Date Dulera [facility] 32237692455 100-5 MCG/ACT Active 2 puffs Inhalation Twice a day Amitriptyline [facility] 63938674556 50 MG Orally February 28, Active 1 tablet HCl Once a day 2017 Amiodarone HCl [facility] 45990784869 200 MG Orally Active 1 tablet Once a day Memantine HCl NDC 16451111016 10 MG Orally Active 1 tablet Twice a day Clonidine HCl [facility] 04598533459 0.1 MG Orally April 20, Active 2 tablet twice 2017 twice x 1 week then 1 tablet twice a day for 1 week. Coreg [facility] 68469334365 12.5 MG Orally Active 2 tabs bid [place] [facility] 34251916421 10-325 MG Active 1 tablet Orally every 6 as needed hrs Linzess [facility] 77156467771 145 MCG Orally April 20Jun Active 1 capsule Once a day 2017 Lipitor [facility] 46407160449 40 MG Orally Active 1 tablet Once a day Clonidine HCl [facility] 26617462894 0.3 MG Orally Inactive 1 tablet Twice a day Lisinopril [facility] 10308347671 40 MG Orally Active 1 tablet Once a day Results No Known Results Summary Purpose eClinicalWorks Submission
--- OUTSIDE RECORDS SUMMARY | 2019-04-15 16:47 | XMS REPORT ---
[...] Status Dosage System Date Date Amiodarone HCl [facility] 98087637904 200 MG Orally Active 1 tablet Once a day Amitriptyline HCl ND 45795694051 50 MG Orally February 28, Active 1 tablet Once a day 2017 Lisinopril [place] 66218502276 40 MG Orally Active 1 tablet Once a day Coreg [facility] 69901004918 12.5 MG Orally Active 2 tabs bid Memantine HCl [facility] 08153659076 10 MG Orally Active 1 tablet Twice a day [place] [facility] 32627840894 10-325 MG Active 1 tablet Orally every 6 as needed hrs Clonidine HCl [facility] 77621500087 0.1 MG Orally April 20, Active 2 tablet twice 2017 twice x 1 week then 1 tablet twice a day for 1 week. Linzess [facility] 60380385515 145 MCG Orally April 20Jun Active 1 capsule Once a day 2017 Lipitor [facility] 05974958097 40 MG Orally Active 1 tablet Once a day Dulera [facility] 55298809091 100-5 MCG/ACT Active 2 puffs Inhalation Twice a day Results No Known Results Summary Purpose eClinicalWorks Submission
--- OUTSIDE RECORDS SUMMARY | 2019-04-15 16:48 | XMS REPORT ---
[...] Assessment Atherosclerotic heart disease of I25.10 Active [place] coronary artery without angina pectoris Problem Chronic [...] Problem Atherosclerotic heart disease of I25.10 Active [place] coronary artery without angina pectoris Problem Symptomatic [...] Start End Status Dosage System Date Date [place] NDC 46510563228 600 MG Orally Active 1 capsule Carbonate Once a day at bedtime Amlodipine [facility] 77727823651 10 MG Orally Aug 22, Active 1 tablet Besylate Once a day 2017 Amiodarone HCl [facility] 03612147252 200 MG Orally Active 1 tablet Once a day [place] [facility] 26589178350 10-325 MG Active 1 tablet as Orally every 6 needed hrs Carvedilol [facility] 62207109659 25 MG Orally Active as directed Clonidine HCl [facility] 38699951470 0.1 MG Orally Aug 22, Active 1 tablet at Twice a day 2018 bedtime Coreg [facility] 86430700056 12.5 MG Orally Active 2 tabs bid Dul[place] [facility] 26050952758 100-5 MCG/ACT Active 2 puffs Inhalation Twice a day Amitriptyline [facility] 71498770552 50 MG Orally Aug 22, Active 1 tablet HCl Once a day 2017 Clonidine HCl [facility] 10631161424 0.1 MG Orally April 20, Active 2 tablet twice 2018 twice x 1 week then 1 tablet twice a day for 1 week. Atorvastatin [facility] 45163051198 20 MG Orally Active 1 tablet Calcium Once a day HydrALAZINE HCl [facility] 83444181929 25 MG Orally Active 1 tablet every 12 hrs with food Lisinopril [facility] 33608234525 40 MG Orally Active 1 tablet Once a day Amitriptyline [facility] 76382807340 50 MG Orally Active 1 tablet HCl Once a day Results No Known Results Summary Purpose eClinicalWorks Submission
--- OUTSIDE RECORDS SUMMARY | 2019-04-15 16:48 | XMS REPORT ---
[...] Problem Atherosclerotic heart disease of I25.10 Active [place] coronary artery without angina pectoris Problem Symptomatic [...] Status Dosage System Date Date Amitriptyline HCl [facility] 69640780089 50 MG Orally Active 1 tablet Once a day Results No Known Results Summary Purpose eClinicalWorks Submission
--- OUTSIDE RECORDS SUMMARY | 2019-04-15 16:48 | XMS REPORT ---
[...] Dosage System Date Date Clonidine HCl ND 72692336827 0.3 MG Orally Inactive 1 tablet Twice a day Amiodarone HCl ND 42049533677 200 MG Orally Active 1 tablet Once a day Lisinopril ND 78120744959 40 MG Orally Active 1 tablet Once a day Clonidine HCl [facility] 08159421069 0.1 MG Orally April 20, Active 2 tablet twice 2017 twice x 1 week then 1 tablet twice a day for 1 week. Memantine HCl [facility] 61701926726 10 MG Orally Active 1 tablet Twice a day [place] [facility] 63483465204 10-325 MG Active 1 tablet Orally every 6 as needed hrs Lipitor [facility] 15717399406 40 MG Orally Active 1 tablet Once a day Coreg [facility] 88708488282 12.5 MG Orally Active 2 tabs bid Linzess [facility] 10784397751 145 MCG Orally April 20Jun Active 1 capsule Once a day 2017 Amitriptyline [facility] 93795171466 50 MG Orally Active 1 tablet HCl Once a day Dulera [facility] 87258580449 100-5 MCG/ACT Active 2 puffs Inhalation Twice a day Results No Known Results Summary Purpose eClinicalWorks Submission
--- OUTSIDE RECORDS SUMMARY | 2019-04-15 16:48 | XMS REPORT ---
[...] Status Dosage System Date Date Lisinopril ND 22748188477 40 MG Orally Active 1 tablet Once a day Clonidine HCl ND 01779972489 0.1 MG Orally April 20, Active 2 tablet twice 2018 twice x 1 week then 1 tablet twice a day for 1 week. Atorvastatin ND 49181337759 20 MG Orally Jul 27, Active 1 tablet Calcium Once a day 2018 Coreg [facility] 48684651958 12.5 MG Orally Active 2 tabs bid [place] [facility] 61964633972 600 MG Orally Jul 27, Active 1 capsule Carbonate Once a day 2018 at bedtime Amitriptyline [facility] 85329615576 50 MG Orally Active 1 tablet HCl Once a day [place] [facility] 40253417355 10-325 MG Active 1 tablet Orally every 6 as needed hrs Dulera [facility] 33461839232 100-5 MCG/ACT Active 2 puffs Inhalation Twice a day Amiodarone HCl [facility] 78819090317 200 MG Orally Active 1 tablet Once a day HydrALAZINE HCl [facility] 26359698042 25 MG Orally Jul 27, Active 1 tablet every 6 hrs 2018 with food Lipitor [facility] 46237853560 40 MG Orally Inactive 1 tablet Once a day Carvedilol [facility] 26746348873 25 MG Orally Jul 27, Active as 2018 directed Memantine HCl [facility] 69454792240 10 MG Orally Inactive 1 tablet Twice a day Results No Known Results Summary Purpose eClinicalWorks Submission
--- OUTSIDE RECORDS SUMMARY | 2019-04-15 16:48 | XMS REPORT ---
:1960 Author Organization eClinicalWorks Care Team Providers Name Role Phone Heard, Na Provider Role Unavailable Allergies, Adverse Reactions, Alerts Substance Reaction Event Type penicillin rash Drug Allergy Problems Problem Type Condition Code Onset Dates Condition Status Problem Follow-up exam Z09 Active Problem Chronic depressive person F34.1 Active Problem Pulmonary emphysema, unspecified J43.9 Active emphysema type Problem Acute myocardial infarction, I21.4 Active subendocardial infarction Problem Primary insomnia F51.01 Active Problem Chronic generalized pain R52 Active Problem Pure hypercholesterolemia E78.00 Active Problem Hyperlipidemia E78.5 Active Problem Essential hypertension I10 Active Problem HTN (hypertension) I10 Active Problem Bipolar 1 disorder F31.9 Active Problem Atherosclerotic heart disease of I25.[address] [place] coronary artery without angina pectoris Problem Abdominal pain R10.9 Active Problem Symptomatic hypotension I95.89 Active Problem Other specified urinary N39.498 Active incontinence Problem Hospital discharge follow-up Z09 Active Problem Panic attacks F41.0 Active Problem Benign prostatic hyperplasia with N40.1 Active lower urinary tract symptoms Problem Closed displaced fracture of first S92.312S Active metatarsal bone of left foot, sequela Problem Atrial fibrillation, unspecified I48.91 Active type Assessment Bipolar 1 disorder F31.9 Active Problem Moderately severe major depression F32.2 Active Problem Left foot pain M79.672 Active Assessment Toe pain, right M79.674 Active Problem Chronic hepatitis C without B18.2 Active hepatic coma Assessment History of trauma Z87.828 Active Problem Simple chronic bronchitis J41.0 Active Assessment Cirrhosis of liver without K74.60 Active ascites, unspecified hepatic cirrhosis type Problem Complaints of memory disturbance R41.3 Active Assessment Panic attacks F41.0 Active Problem Cirrhosis of liver without K74.60 Active [place], unspecified hepatic cirrhosis type Problem Chest pain, unspecified type R07.9 Active Problem Arteriosclerotic cardiovascular I25.10 Active disease (ASCVD) Problem Dementia without behavioral F03.90 Active disturbance, unspecified dementia type Assessment Chronic hepatitis C without B18.2 Active hepatic coma Problem Hypertensive emergency I16.1 Active Assessment Moderately severe major depression F32.2 Active Problem History of coronary artery disease Z86.79 Active Assessment Edema of right foot R60.0 Active Problem Constipation, unspecified K59.00 Active constipation type Assessment Foot pain, right M79.671 Active Problem Lumbar degenerative disc disease M51.36 Active Problem Cigarette nicotine dependence F17.210 Active without complication Problem Elevated blood pressure reading R03.0 Active Medications Medication Code Code Instructions Start End Status Dosage System Date Date Ranolazine ER [facility] 81054774321 500 MG Orally Active 2 tablet Twice a day Isosorbide [facility] 05851939258 30 MG Orally Active 1 tablet Mononitrate ER Once a day in the morning Carvedilol [facility] 81608006790 25 MG Orally Active as directed Lisinopril [facility] 76689805152 40 MG Orally Active 1 tablet Once a day Coreg ND 95786215968 12.5 MG Orally Active 2 tabs bid Ipratropium [place] [facility] 52489926207 0.02 % March 07, Active as Inhalation 1 2018 directed vial Three times a day Clonidine HCl [facility] 39615819814 0.1 MG Orally March Active 2 tablet twice , twice x 1 2017 week then 1 tablet twice a day for 1 week. Lorazepam [facility] 29426019196 0.5 MG Orally Active 1 tablet Once a day prn as needed anxiety /panic attacks Amlodipine Besylate ND 49518168090 10 MG Orally Aug 22, Active 1 tablet Once a day 2017 Atorvastatin Calcium [facility] 91827465099 20 MG Orally Active 1 tablet Once a day Dulera [facility] 04985460930 100-5 MCG/ACT Active 2 puffs Inhalation Twice a day Albuterol Sulfate [facility] 04140514372 (2.5 MG/3ML) March 07, Active inhale 1 0.083% 2018 vial by mouth via nebulizer 3 times a day Hydrochlorothiazide [facility] 77668304774 25 MG Orally Active 1 tablet Once a day in the morning - [facility] 37326288944 81 MG Orally Active 1 tablet Once a day Clonidine HCl [facility] 87482573183 0.1 MG Orally Aug 22, Active 1 tablet Twice a day 2018 at bedtime Amitriptyline HCl [facility] 74155240598 50 MG Orally Aug 22, Active 1 tablet Once a day 2017 HydrALAZINE HCl [facility] 40468479065 25 MG Orally Active 1 tablet every 12 hrs with food [place] [facility] 69348695940 10-325 MG Active 1 tablet Orally every 6 as needed hrs [place] Carbonate [facility] 15201128566 600 MG Orally Active 1 capsule Once a day at bedtime Amiodarone HCl [facility] 35665024195 200 MG Orally Active 1 tablet Once a day Amitriptyline HCl [facility] 83454466834 50 MG Orally Active 1 tablet Once a day Losartan Potassium [facility] 82202401773 25 MG Orally Active 1 tablet Once a day Lactulose [facility] 42765367372 20 GM/30ML Active 30 ml Orally Once a day Citalopram [facility] 87314698481 20 MG Orally Active 1 tablet Hydrobromide Once a day Results Name Result Date Reference Range Unit Abnormality Flag CT RIGHT FOOT W CONTRAST Summary Purpose eClinicalWorks Submission
[2019-04-15] MEDS ORDERED: NA CHLORIDE 0.9% 1,000 ML ONE ×2 (17:40→18:54)
--- NOTE | 2019-04-15 17:49 | RAD REPORT ---
EXAM DESCRIPTION: CT - Head Brain Wo Cont - 04/15/2019 5:24 pm CLINICAL HISTORY: Transient alteration of awareness COMPARISON: CT imaging April 2018 TECHNIQUE: Axial 5 mm thick images of the head were obtained without IV contrast. All CT scans are performed using dose optimization technique as appropriate and may include automated exposure control or mA/KV adjustment according to patient size. FINDINGS: No intracranial hemorrhage, mass, edema or shift of mid-line structures. No acute infarcti on changes seen. No cortical edema or sulcal effacement. Atrophy changes are minimal. A mild to moder ate chronic ischemic pattern is present. Ventricles are in proportion to volume loss. Intracranial fi ndings are similar to comparison. Mastoid air cells are clear. Mucosal thickening and air-fluid level present in the right maxillary si nus. There are thickened, sclerotic right maxillary sinus li. No acute bony findings. IMPRESSION: Mild atrophy and mild to moderate chronic ischemic change. No acute intracranial finding . Acute and chronic right maxillary sinusitis similar to comparison.
[2019-04-15 17:52] LABS: Absolute Lymphocytes (CBC) 0.6 K/uL (0.7-4.9); Basophils % 0.1 % (0-1.3); Hematocrit 38.3 % (39.6-49.0); Lymphocytes % 4.1 % (15.3-44.8); MPV 10.2 fL (7.6-11.3); Monocytes % 7.1 % (3.3-12.3); RBC Red Blood Cell Count 4.15 M/uL (4.33-5.43)
--- NOTE | 2019-04-15 17:57 | RAD REPORT ---
EXAM DESCRIPTION: RAD - Chest Single View - 04/15/2019 5:31 pm CLINICAL HISTORY: Shortness of breath, altered mental status COMPARISON: June 2018 TECHNIQUE: AP portable chest image was obtained 1727 hour . FINDINGS: Lung volumes are low. Bilateral lung base atelectasis present. No failure or volume overlo ad. Heart and vasculature are normal. No measurable pleural effusion and no pneumothorax. No acute [place] abnormality seen. No acute aortic findings suspected. IMPRESSION: Bilateral lung base atelectasis due to shallow inspiration. No acute cardiopulmonary finding.
[2019-04-15 18:02] LABS: Albumin 2.8 g/dL (3.4-5.0); Bilirubin Direct 0.3 mg/dL (0-0.2); Bilirubin Total 0.4 mg/dL (0.2-1.0); CKMB Creatine Kinase MB 17.8 ng/mL (0.3-3.6); Potassium 3.9 mmol/L (3.5-5.1); Protein, Total 7.7 g/dL (6.4-8.2)
--- NOTE | 2019-04-15 18:27 | EDPHYS ---
Physician Documentation [facility] Name: Blayne Macias Age: 58 yrs Sex: Male : 1960 Arrival Date: 04/15/2019 Time: 16:[address] Private MD: Allison Heard ED Physician Michael Estrada HPI: 04/15 17:03 This 58 yrs old Male presents to ER via Wheelchair with complaints of cp Weakness, Disoriented, Low BP. 17:03 The patient presents with confusion. cp 17:03 Onset: The symptoms/episode began/occurred at an unknown time. Possible causes: cp unknown. Associated signs and symptoms: Pertinent positives: weakness, Pertinent negatives: abdominal pain, chest pain. Current symptoms: In the emergency department the patient's symptoms are unchanged from the initial presentation. Unable to obtain HPI due to altered mental status. Historical: - Allergies: 16:47 Codeine; la1 16:47 PENICILLINS; la1 - Home Meds: 19:15 amiodarone 200 mg Oral tab 0.5 tab 2 times per day [Active]; amitriptyline 50 mg Oral tl2 tab 1 tab once daily [Active]; aspirin 81 mg Oral chew 1 tab once daily [Active]; Norvasc 10 mg Oral tab once daily [Active]; carvedilol 25 mg Oral tab 0.5 tab 2 times per day [Active]; hydrochlorothiazide 12.5 mg Oral tab 1 tab once daily [Active]; isosorbide mononitrate 60 mg Oral Tb24 [Active]; lithium carbonate 300 mg Oral cap 1 cap 3 times per day [Active]; losartan 25 mg oral tab 1 tab once daily [Active]; nitroglycerin 0.4 mg SL subl 1 tab [Active]; ranolazine oral 1000 mg oral [Active]; simvastatin 40 mg Oral tab 1 tab once daily [Active]; mometasone-formoterol inhalation inhalation [Active]; - PMHx: 16:47 "electrical stimulator"; Atrial Fib; Back pain; Bipolar disorder; CAD; CHF; chronic la1 back pain; Cirrhosis; COPD; Hepatitis; High Cholesterol; Hypertension; Pneumonia; - Immunization history:: Adult Immunizations up to date. - Social history:: Smoking status: Patient/guardian denies using tobacco. - Ebola Screening: : No symptoms or risks identified at this time. ROS: 17:05 Constitutional: Negative for fever. cp 17:05 Cardiovascular: Negative for chest pain. cp 17:05 Respiratory: Negative for wheezing. 17:05 Neuro: Positive for altered mental status, weakness. 17:05 Unable to obtain ROS due to altered mental status. Exam: 17:03 ECG was reviewed by the Attending Physician. cp 17:10 Constitutional: The patient appears in no acute distress, alert, awake, cp non-diaphoretic, non-toxic, well developed, well nourished. 17:10 Head/Face: Normocephalic, atraumatic. cp 17:10 Eyes: Periorbital structures: appear normal, Pupils: equal, round, and reactive to light and accomodation, Extraocular movements: intact throughout, Conjunctiva: normal, no exudate, no injection, Sclera: no appreciated abnormality, Lids and lashes: appear normal, bilaterally. 17:10 ENT: External ear(s): are unremarkable, Ear canal(s): are normal, clear, TM's: dullness, bilaterally, Nose: is normal, Mouth: Lips: dry, Oral mucosa: dry, Posterior pharynx: Airway: no evidence of obstruction, patent, erythema, is not appreciated, exudate, is not appreciated. 17:10 Neck: ROM/movement: is normal, is supple, without pain, no range of motions limitations, no meningismus, no nuchal rigidity. 17:10 Chest/axilla: Inspection: normal, Palpation: is normal, no crepitus, no tenderness. 17:10 Cardiovascular: Rate: normal, Rhythm: regular, Edema: is not appreciated, JVD: is not appreciated. 17:10 Respiratory: the patient does not display signs of respiratory distress, Respirations: normal, no use of accessory muscles, no retractions, no splinting, no tachypnea, labored breathing, is not present, Breath sounds: are clear throughout, no decreased breath sounds, no stridor, no wheezing. 17:10 Abdomen/GI: Inspection: abdomen appears normal, Bowel sounds: active, all quadrants, Palpation: abdomen is soft and non-tender, in all quadrants, voluntary guarding, is not appreciated, involuntary guarding, is not appreciated. 17:10 Back: pain, is absent, ROM is normal. 17:10 Skin: cellulitis, is not appreciated, no rash present. 17:10 Neuro: Orientation: to person, place, Not oriented to time, Mentation: able to follow commands, slow to respond, confused, Cerebellar function: Romberg testing is negative, Motor: moves all fours, general weakness w/o focal deficits, Sensation: no obvious gross deficits, Gait: not tested. Vital Signs: 16:46 BP 87 / 64; Pulse 73; Resp 16; Temp 97.5; Pulse Ox 98% on R/A; la1 17:56 BP 121 / 64; Pulse 76; Resp 26; Temp 97.9; Pulse Ox 95% on R/A; ls4 18:16 BP 115 / 67; Pulse 71; Resp 24; Pulse Ox 97% on R/A; ls4 18:39 BP 151 / 80; Pulse 74; Resp 14; Pulse Ox 99% on R/A; Weight 70.31 kg; ls4 19:57 BP 162 / 80; Pulse 74; Resp 18; Pulse Ox 100% on R/A; tl2 NIH Stroke Scale Scores: 17:05 NIHSS Score: 4 cp 17:58 NIHSS Score: 1 ls4 MDM: 16:49 Patient medically screened. cp 17:05 ED course: Patient is not a candidate for tpa due to unknown onset of symptoms. cp 18:25 Data reviewed: vital signs, nurses notes, lab test result(s), EKG, radiologic studies, cp CT scan, plain films. 18:25 Test interpretation: by ED physician or midlevel provider: ECG. Response to treatment: cp the patient's symptoms have markedly improved after treatment. Physician consultation: Shaun Villavicencio MD was called at 18:15, was contacted at 18:15, regarding admission, to the medical/surgical unit. patient's condition. 04/15 17:01 Order name: Urine Culture cp 04/15 17:01 Order name: Basic Metabolic Panel cp 04/15 17:01 Order name: Blood Culture Adult (2) cp 04/15 17:01 Order name: CBC with Diff cp 04/15 17:01 Order name: Ckmb; Complete Time: 18:12 cp 04/15 18:13 Interpretation: Abnormal: CKMB 17.8. 04/15 17:01 Order name: CPK; Complete Time: 18:12 cp 04/15 18:13 Interpretation: Abnormal: CPK 576. 04/15 17:01 Order name: Lactate; Complete Time: 18:12 04/15 17:01 Order name: LFT's; Complete Time: 18:12 04/15 18:14 Interpretation: Normal except: AST 57; BILID 0.3; ALB 2.8; GLOB 4.9; A/G 0.6. 04/15 17:01 Order name: Lipase; Complete Time: 18:12 04/15 17:01 Order name: Procalcitonin; Complete Time: 18:12 04/15 18:14 Interpretation: Procalcitonin 1.90. 04/15 17:01 Order name: Protime (+inr); Complete Time: 19:03 04/15 17:01 Order name: Ptt, Activated; Complete Time: 19:03 04/15 17:01 Order name: Troponin (emerg Dept Use Only); Complete Time: 17:49 04/15 17:49 Interpretation: TROPED 0.02; Reviewed. 04/15 17:01 Order name: Urine Microscopic Only; Complete Time: 20:08 04/15 20:09 Interpretation: Abnormal: UWBC >50; URBC 5-10; UBACT >50; SQEPI 10-20. 04/15 17:01 Order name: Cath; Complete Time: 18:41 04/15 17:01 Order name: Chest Single View XRAY; Complete Time: 18:12 04/15 17:01 Order name: CT Head Brain wo Cont; Complete Time: 18:12 04/15 17:01 Order name: AMMONIA; Complete Time: 17:49 04/15 17:49 Interpretation: CRISPIN 23; Reviewed. 04/15 17:03 Order name: Urine Culture EDMN 04/15 17:03 Order name: Basic Metabolic Panel; Complete Time: 18:12 EDMN 04/15 18:14 Interpretation: Normal except: GLUC 131; BUN 60; CRE 5.18; GFR 11; CA 8.2. 04/15 17:03 Order name: Blood Culture EDMN 04/15 17:03 Order name: CBC with Automated Diff EDMN 04/15 18:15 Interpretation: Normal except: WBC 15.6; RBC 4.15; HGB 12.5; HCT 38.3; GLYNN% 87.7; LYM% cp 4.1; NEUT A 13.7; LYMA 0.6. 04/15 18:42 Order name: Urine Dipstick--Ancillary (enter results) ag4 04/15 18:46 Order name: Urine Dipstick-Ancillary; Complete Time: 19:03 EDMS 04/15 19:03 Interpretation: Normal except: UBLD 2+; UPROT 2+; UESTR 2+. cp 04/15 19:04 Order name: CT Chest Abdomen Pelvis W/O Contrast cp 04/15 17:01 Order name: Cardiac monitoring; Complete Time: 17:02 cp 04/15 17:01 Order name: EKG - Nurse/Tech; Complete Time: 17:02 cp 04/15 17:01 Order name: IV Saline Lock - Large Bore; Complete Time: 17:03 cp 04/15 17:01 Order name: Labs collected and sent; Complete Time: 17:03 cp 04/15 17:01 Order name: O2 Per Protocol; Complete Time: 17:03 cp 04/15 17:01 Order name: O2 Sat Monitoring; Complete Time: 17:03 cp 04/15 18:16 Order name: Alexander; Complete Time: 18:39 cp 04/15 18:18 Order name: Vital Signs: need weight; Complete Time: 18:39 cp EC:03 Rate is 88 beats/min. Rhythm is regular. FL interval is normal. QRS interval is normal. cp QT interval is prolonged at 402 msec. T waves are Inverted in leads I, aVL, aVF. Interpreted by me. Reviewed by me. Administered Medications: 17:33 Drug: NS 0.9% 1000 ml Route: IV; Rate: 1 bolus; Site: right antecubital; 18:37 Drug: NS 0.9% 1000 ml Route: IV; Rate: 100 ml/hr; Site: right antecubital; ls4 20:08 Follow up: IV Status: Infusion continued upon admission tl2 18:39 Drug: Cefepime 1 grams Route: IVPB; Rate: 200 ml/hr; Infused Over: 30 mins; Site: right ls4 antecubital; 19:15 Follow up: IV Status: Completed infusion; IV Intake: 100ml tl2 19:05 Drug: vancoMYCIN 1 grams Route: IVPB; Infused Over: 2 hrs; Site: right antecubital; ls4 20:07 Follow up: IV Status: Infusion continued upon admission tl2 Point of Care Testin:39 na see cmp ls4 Ranges: Critical Glucose Levels:Adult <50 mg/dl or >400 mg/dl <40 mg/dl or >180 mg/dl Disposition: 20:15 Chart complete. cp Disposition: 04/15/19 18:25 Hospitalization ordered by Shaun Villavicencio for Inpatient Admission. Preliminary diagnosis are Other sepsis, Acute kidney failure, Hypotension, Urinary tract infection, site not specified. - Bed requested for Telemetry/MedSurg (Inpatient). - Status is Inpatient Admission. tl2 - Condition is Fair. - Problem is new. - Symptoms have improved. UTI on Admission? Yes NIH Stroke Scale - NIH Stroke Score Date: 04/15/2019 Time: 17:05 Total Score = 4 1a. Level of Consciousness (LOC) - 0(Alert) 1b. Level of Consciousness (LOC) (Year \\T\\ Age) - 0(Both) 1c. LOC Commands (Open \\T\\ Closes Eyes/Telegraph Repeater Installer) - 0(Both) 2. Best Gaze (Lateral Gaze Paresis) - 0(Normal) 3. Visual Field Loss - 0(No visual loss) 4. Facial Palsy - 0(Normal) 5a. Left Arm: Motor (10-second hold) - 0(No drift) 5b. Right Arm: Motor (10-second hold) - 0(No drift) 6a. Left Leg: Motor (5-second hold - always test supine) - 2(Drift, some effort against gravity) 6b. Right Leg: Motor (5-second hold - always test supine) - 2(Drift, some effort against gravity) 7. Limb Ataxia (finger/nose \\T\\ heel/noland - test with eyes open) - 0(Absent) 8. Sensory Loss (pinprick arms/legs/face) - 0(Normal) 9. Best Language: Aphasia (description/naming/reading) - 0(No aphasia) 10. Dysarthria (speech clarity - read or repeat words) - 0(Normal) 11. Extinction and Inattention (visual/tactile/auditory/spatial/personal) - 0(No abnormality) Initials: cp NIH Stroke Scale - NIH Stroke Score Date: 04/15/2019 Time: 17:58 Total Score = 1 1a. Level of Consciousness (LOC) - 1(Not Alert) 1b. Level of Consciousness (LOC) (Year \\T\\ Age) - 0(Both) 1c. LOC Commands (Open \\T\\ Closes Eyes/Telegraph Repeater Installer) - 0(Both) 2. Best Gaze (Lateral Gaze Paresis) - 0(Normal) 3. Visual Field Loss - 0(No visual loss) 4. Facial Palsy - 0(Normal) 5a. Left Arm: Motor (10-second hold) - 0(No drift) 5b. Right Arm: Motor (10-second hold) - 0(No drift) 6a. Left Leg: Motor (5-second hold - always test supine) - 0(No drift) 6b. Right Leg: Motor (5-second hold - always test supine) - 0(No drift) 7. Limb Ataxia (finger/nose \\T\\ heel/noland - test with eyes open) - 0(Absent) 8. Sensory Loss (pinprick arms/legs/face) - 0(Normal) 9. Best Language: Aphasia (description/naming/reading) - 0(No aphasia) 10. Dysarthria (speech clarity - read or repeat words) - 0(Normal) 11. Extinction and Inattention (visual/tactile/auditory/spatial/personal) - 0(No abnormality) Initials: ls4 Addendum: 04/17/2019 09:44 Co-signature as Attending Physician, Michael Estrada MD I agree with the [facility] assessment and plan of care. Signatures: Dispatcher [employer] EDMN Nara Auguste RN RN dw Anderson, Corey, MD MD [facility] Gilberto Nevarez RN RN la1 Aiden Freeman RN RN hj Page, Corey, PA PA cp Li Boo RN RN tl2 Cha Montoya RN RN ls4 Corrections: (The following items were deleted from the chart) 04/15 18:14 18:13 Normal except: GLUC 131; BUN 60; CRE 5.18; GFR 11. cp cp 18:31 18:25 Hospitalization Ordered by Shaun Villavicencio MD for Inpatient Admission. cp Preliminary diagnosis is Other sepsis. Bed requested for Telemetry/MedSurg (Inpatient). Status is Inpatient Admission. Condition is Fair. Problem is new. Symptoms have improved. UTI on Admission? No. cp 19:16 18:31 04/15/2019 18:25 Hospitalization Ordered by Shuan Villavicencio MD for Inpatient dw Admission. Preliminary diagnosis is Other sepsis; Acute kidney failure; Hypotension. Bed requested for Telemetry/MedSurg (Inpatient). Status is Inpatient Admission. Condition is Fair. Problem is new. Symptoms have improved. UTI on Admission? No. cp 20:09 20:08 Abnormal. cp cp 20: 19:16 04/15/2019 18:25 Hospitalization Ordered by Shaun Villavicencio MD for Inpatient cp Admission. Preliminary diagnosis is Other sepsis; Acute kidney failure; Hypotension. Bed requested for Telemetry/MedSurg (Inpatient). Status is Inpatient Admission. Condition is Fair. Problem is new. Symptoms have improved. UTI on Admission? No. dw 20:12 20:09 04/15/2019 18:25 Hospitalization Ordered by Shaun Villavicencio MD for Inpatient tl2 Admission. Preliminary diagnosis is Other sepsis; Acute kidney failure; Hypotension; Urinary tract infection, site not specified. Bed requested for Telemetry/MedSurg (Inpatient). Status is Inpatient Admission. Condition is Fair. Problem is new. Symptoms have improved. UTI on Admission? Yes. cp
--- NOTE | 2019-04-15 18:27 | ER ---
Nurse's Notes [facility] Name: Blayne Macias Age: 58 yrs Sex: Male : 1960 Arrival Date: 04/15/2019 Time: 16:[address] Private MD: Allison Heard Diagnosis: Other sepsis;Acute kidney failure;Hypotension;Urinary tract infection, site not specified Presentation: 04/15 16:47 Presenting complaint: Patient states: I have been disoriented, confused, lethargic at la1 home. My BP has been reading low and I have been doing things I don't usually do. Pt alert, oriented x4 but slow to respond and slightly confused. Transition of care: patient was not received from another setting of care. No acute neurological deficit is noted. Pre-hospital glucose is not applicable to this patient. Onset of symptoms is unknown. Risk Assessment: Do you want to hurt yourself or someone else? Patient reports no desire to harm self or others. Initial Sepsis Screen: Does the patient meet any 2 criteria? No. Patient's initial sepsis screen is negative. Does the patient have a suspected source of infection? No. Patient's initial sepsis screen is negative. Care prior to arrival: None. 16:47 Method Of Arrival: Wheelchair la1 16:47 Acuity: SENTHIL 2 la1 Triage Assessment: 17:09 Neuro: Reports weakness. ls4 18:43 The onset of the patients symptoms was April 15, 2019 at 15:00. General: Appears in no ls4 apparent distress. Behavior is drowsy. Stroke Activation: Symptom onset > 6 hours Physician: Stroke Attending; Name: ; Notified At: ; Arrived At: Physician: Chief Stroke Resident; Name: ; Notified At: ; Arrived At: Physician: Stroke Resident; Name: ; Notified At: ; Arrived At: Physician: ED Attending; Name: ; Notified At: ; Arrived At: Physician: ED Resident; Name: ; Notified At: ; Arrived At: Historical: - Allergies: 16:47 Codeine; la1 16:47 PENICILLINS; la1 - Home Meds: 19:15 amiodarone 200 mg Oral tab 0.5 tab 2 times per day [Active]; amitriptyline 50 mg Oral tl2 tab 1 tab once daily [Active]; aspirin 81 mg Oral chew 1 tab once daily [Active]; Norvasc 10 mg Oral tab once daily [Active]; carvedilol 25 mg Oral tab 0.5 tab 2 times per day [Active]; hydrochlorothiazide 12.5 mg Oral tab 1 tab once daily [Active]; isosorbide mononitrate 60 mg Oral Tb24 [Active]; lithium carbonate 300 mg Oral cap 1 cap 3 times per day [Active]; losartan 25 mg oral tab 1 tab once daily [Active]; nitroglycerin 0.4 mg SL subl 1 tab [Active]; ranolazine oral 1000 mg oral [Active]; simvastatin 40 mg Oral tab 1 tab once daily [Active]; mometasone-formoterol inhalation inhalation [Active]; - PMHx: 16:47 "electrical stimulator"; Atrial Fib; Back pain; Bipolar disorder; CAD; CHF; chronic la1 back pain; Cirrhosis; COPD; Hepatitis; High Cholesterol; Hypertension; Pneumonia; - Immunization history:: Adult Immunizations up to date. - Social history:: Smoking status: Patient/guardian denies using tobacco. - Ebola Screening: : No symptoms or risks identified at this time. Screenin:47 Abuse screen: Denies threats or abuse. Denies injuries from another. Nutritional hj screening: No deficits noted. Tuberculosis screening: No symptoms or risk factors identified. Fall Risk None identified. 16:49 VAN Screening: Arm Drift: Patient shows no arm weakness. Patient is VAN negative. la1 Assessment: 16:47 General: Appears in no apparent distress. uncomfortable, Behavior is calm, cooperative, hj appropriate for age. Pain: Complains of pain in back. Neuro: Level of Consciousness is awake, alert, obeys commands, Oriented to person, place, situation. Cardiovascular: Capillary refill < 3 seconds Patient's skin is warm and dry. Respiratory: Airway is patent Respiratory effort is even, unlabored, Respiratory pattern is regular, symmetrical. GI: No deficits noted. : No signs and/or symptoms were reported regarding the genitourinary system. EENT: No signs and/or symptoms were reported regarding the EENT system. Derm: No signs and/or symptoms reported regarding the dermatologic system. Musculoskeletal: No signs and/or symptoms reported regarding the musculoskeletal system. 17:58 VAN Scoring: Arm Drift: Patients demonstrates NO arm weakness. Patient is VAN Negative. ls4 The patient is not alert and/or unable to follow commands. Bedside swallow screen discontinued. Patient kept NPO until cleared by Speech Therapy or Physician. T-PA (Activase) Screening: Contraindications: Rapidly improving condition or minor deficit:. Reassessment: Patient and/or family updated on plan of care and expected duration. Pain level reassessed. Patient is alert, oriented x 3, equal unlabored respirations, skin warm/dry/pink. pt is sleeping. arouses to speech easily and then sleepy again. 18:40 The patient failed the bedside swallow screening. The patient will be kept NPO until ls4 cleared by Speech Therapy or Physician. 18:42 The patient does not exhibit slurred or garbled speech. The patient is not exhibiting ls4 difficulty speaking. The patient does not exhibit difficulty understanding words. The patient is able to swallow own secretions with no drooling or need for suction. pt sleepy at this time Provider notified of bedside swallow screening results: Michael BOLAÑOS. Vital Signs: 16:46 BP 87 / 64; Pulse 73; Resp 16; Temp 97.5; Pulse Ox 98% on R/A; la1 17:56 BP 121 / 64; Pulse 76; Resp 26; Temp 97.9; Pulse Ox 95% on R/A; ls4 18:16 BP 115 / 67; Pulse 71; Resp 24; Pulse Ox 97% on R/A; ls4 18:39 BP 151 / 80; Pulse 74; Resp 14; Pulse Ox 99% on R/A; Weight 70.31 kg; ls4 19:57 BP 162 / 80; Pulse 74; Resp 18; Pulse Ox 100% on R/A; tl2 NIH Stroke Scale Scores: 17:05 NIHSS Score: 4 cp 17:58 NIHSS Score: 1 ls4 ED Course: 16:41 Patient arrived in ED. rg4 16:42 Allison Heard MD is Private Physician. rg4 16:46 Arm band placed on left wrist. la1 16:49 Triage completed. la1 16:49 [facility] Do[facility]. cp 16:49 Michael Estrada MD is Attending Physician. cp 17:00 Inserted saline lock: 22 gauge in right antecubital area, using aseptic technique. Blood collected. 17:00 Initial lab(s) drawn, by nh, sent to lab. First set of blood cultures drawn by me. hj 17:02 Aiden Freeman RN is Primary Nurse. hj 17:02 Patient has correct armband on for positive identification. Placed in gown. Bed in low ls4 position. Call light in reach. Side rails up X 1. Report given to Li ORTIZ. 17:02 Warm blanket given. Pillow given. Verbal reassurance given. ls4 17:20 Second set of blood cultures drawn by me. hj 17:24 CT completed. Patient tolerated procedure well. mw3 17:24 CT Head Brain wo Cont In Process Unspecified. EDMS 17:24 Patient moved to radiology. mw3 17:30 Chest Single View XRAY In Process Unspecified. EDMS 18:25 Shaun Villavicencio MD is Hospitalizing Provider. cp 18:41 No provider procedures requiring assistance completed. Alexander cath inserted, using ls4 sterile technique, 16 Fr., by funeral arranger, balloon inflated, to gravity drainage, urine specimen collected. returned clear yellow urine. Patient tolerated well. 19:05 Urine Dipstick--Ancillary (enter results) Sent. ls4 20:06 Patient admitted, IV remains in place. tl2 Administered Medications: 17:33 Drug: NS 0.9% 1000 ml Route: IV; Rate: 1 bolus; Site: right antecubital; hj 18:37 Drug: NS 0.9% 1000 ml Route: IV; Rate: 100 ml/hr; Site: right antecubital; ls4 20:08 Follow up: IV Status: Infusion continued upon admission tl2 18:39 Drug: Cefepime 1 grams Route: IVPB; Rate: 200 ml/hr; Infused Over: 30 mins; Site: right ls4 antecubital; 19:15 Follow up: IV Status: Completed infusion; IV Intake: 100ml tl2 19:05 Drug: vancoMYCIN 1 grams Route: IVPB; Infused Over: 2 hrs; Site: right antecubital; ls4 20:07 Follow up: IV Status: Infusion continued upon admission tl2 Point of Care Testin:39 na see cmp ls4 Ranges: Intake: 19:15 IV: 100ml; Total: 100ml. tl2 Outcome: 18:25 Decision to Hospitalize by Provider. cp 20:05 Admitted to Med/surg accompanied by tech, via stretcher, room 207, with chart, Report tl2 called to DIANA Pop 20:05 Condition: stable 20:05 Discharge instructions given to patient, Instructed on the need for admit. 20:12 Patient left the ED. tl2 NIH Stroke Scale - NIH Stroke Score Date: 04/15/2019 Time: 17:05 Total Score = 4 1a. Level of Consciousness (LOC) - 0(Alert) 1b. Level of Consciousness (LOC) (Year \\T\\ Age) - 0(Both) 1c. LOC Commands (Open \\T\\ Closes Eyes/Director Pharmacy Services) - 0(Both) 2. Best Gaze (Lateral Gaze Paresis) - 0(Normal) 3. Visual Field Loss - 0(No visual loss) 4. Facial Palsy - 0(Normal) 5a. Left Arm: Motor (10-second hold) - 0(No drift) 5b. Right Arm: Motor (10-second hold) - 0(No drift) 6a. Left Leg: Motor (5-second hold - always test supine) - 2(Drift, some effort against gravity) 6b. Right Leg: Motor (5-second hold - always test supine) - 2(Drift, some effort against gravity) 7. Limb Ataxia (finger/nose \\T\\ heel/noland - test with eyes open) - 0(Absent) 8. Sensory Loss (pinprick arms/legs/face) - 0(Normal) 9. Best Language: Aphasia (description/naming/reading) - 0(No aphasia) 10. Dysarthria (speech clarity - read or repeat words) - 0(Normal) 11. Extinction and Inattention (visual/tactile/auditory/spatial/personal) - 0(No abnormality) Initials: cp NIH Stroke Scale - NIH Stroke Score Date: 04/15/2019 Time: 17:58 Total Score = 1 1a. Level of Consciousness (LOC) - 1(Not Alert) 1b. Level of Consciousness (LOC) (Year \\T\\ Age) - 0(Both) 1c. LOC Commands (Open \\T\\ Closes Eyes/Director Pharmacy Services) - 0(Both) 2. Best Gaze (Lateral Gaze Paresis) - 0(Normal) 3. Visual Field Loss - 0(No visual loss) 4. Facial Palsy - 0(Normal) 5a. Left Arm: Motor (10-second hold) - 0(No drift) 5b. Right Arm: Motor (10-second hold) - 0(No drift) 6a. Left Leg: Motor (5-second hold - always test supine) - 0(No drift) 6b. Right Leg: Motor (5-second hold - always test supine) - 0(No drift) 7. Limb Ataxia (finger/nose \\T\\ heel/nolnad - test with eyes open) - 0(Absent) 8. Sensory Loss (pinprick arms/legs/face) - 0(Normal) 9. Best Language: Aphasia (description/naming/reading) - 0(No aphasia) 10. Dysarthria (speech clarity - read or repeat words) - 0(Normal) 11. Extinction and Inattention (visual/tactile/auditory/spatial/personal) - 0(No abnormality) Initials: ls4 Signatures: Dispatcher [employer] EDMS Gilberto Nevarez RN RN la1 Aiden Freeman, RN RN Michael George PA PA Li Lugo, DIANA RN tl2 Brenna Sandoval rg4 Maria Elena Walsh mw3 Cha Montoya RN RN ls4 Corrections: (The following items were deleted from the chart) 17:25 17:24 Patient moved back from MD. mw3 mw3
[2019-04-15 18:32] LABS: Protime INR 1.09
[2019-04-15] MEDS ORDERED: CEFEPIME 1 GM/100 ML BAG IV ONE (18:38)
[2019-04-15 18:46] LABS: Urine Blood 2+ (NEG); Urine Glucose NEGATIVE (NEG); Urine Protein 2+ (NEG); Urine Specific Gravity 1.025 (1.005-1.030)
[2019-04-15] MEDS ORDERED: VANCOMYCIN 1 GM/VIAL ONE (19:11)
[2019-04-15] MEDS ORDERED: NA CHLORIDE 0.9% 250 ML ONE (19:11)
[2019-04-15 19:28] LABS: Urine Bacteria >50 /HPF (NONE SEEN)
[2019-04-15 19:29] LABS: Urine Amorphous Sediment 1+ /HPF (NONE SEEN); Urine Culture Reflex Order NOT NEEDED; Urine Mucus 2+ /HPF (NONE SEEN)
[2019-04-15] MEDS ORDERED: ONDANSETRON 4 MG/2 ML VIAL IV PRN (19:58)
[2019-04-15 20:51] LABS: Blood Morphology Comment NOT SEEN (NOT SEEN); Platelet Estimate ADEQ; Toxic Granulation PRESENT; Urine White Blood Cell Casts OK
[2019-04-15] MEDS: HYDROCODONE/APAP 10/325 TAB PO PRN (22:09)
[2019-04-15] MEDS ORDERED: MORPHINE 4 MG/ML SYR IV ONE (23:06)
[2019-04-16] MEDS ORDERED: MORPHINE 4 MG/ML SYR IV ONE (03:34)
[2019-04-16 05:38] LABS: Absolute Lymphocytes (CBC) 0.7 K/uL (0.7-4.9); Basophils % 0.1 % (0-1.3); Eosinophils % 0.8 % (0-4.4); Lymphocytes % 4.3 % (15.3-44.8); MPV 10.1 fL (7.6-11.3); Monocytes % 9.3 % (3.3-12.3); RBC Red Blood Cell Count 4.13 M/uL (4.33-5.43)
[2019-04-16 05:56] LABS: Albumin 2.4 g/dL (3.4-5.0); Bilirubin Total 0.4 mg/dL (0.2-1.0); Magnesium 3.2 mg/dL (1.8-2.4); Phosphorus 4.1 mg/dL (2.5-4.9); Potassium 3.9 mmol/L (3.5-5.1); Protein, Total 7.2 g/dL (6.4-8.2)
[2019-04-16] MEDS ORDERED: Levofloxacin 250mg IV 250 MG/50 ML BAG IV SCH (07:00)
[2019-04-16 07:25] LABS: Troponin I 0.02 ng/mL (0.0-0.045)
[2019-04-16] MEDS: HYDROCODONE/APAP 10/325 TAB PO PRN (08:47)
[2019-04-16] MEDS: NA CHLORIDE 0.9% 1,000 ML IV SCH ×2 (08:48→22:28)
[2019-04-16] MEDS ORDERED: POTASSIUM CL SA 10 MEQ TAB PO ONE (09:00)
--- NOTE | 2019-04-16 09:46 | P.HP ---
Certification for Inpatient Patient admitted to: Inpatient With expected LOS: >2 Midnights Patient will require the following post-hospital care: None Practitioner: I am a practitioner with admitting privileges, knowledge of patient current condition, hospital course, and medical plan of care. Services: Services provided to patient in accordance with Admission requirements found in Title 42 Section 412.3 of the Code of Federal Regulations Patient History Date of Service: 04/15/19 Reason for admission: Altered mental status /lethargic /urinary tract infection/ KAT History of Present Illness: PATIENT IS A 58-YEAR-OLD GENTLEMAN WHO CAME TO THE HOSPITAL WITH ALTERED MENTATION AND DYSURIA. PATIENT HAD DEVELOPED SOME DRIBBLING WHENEVER HE URINATED. PATIENT CAME INTO THE EMERGENCY ROOM FOR FURTHER EVALUATION. IN THE ER, PATIENT HAD DIAGNOSTIC STUDIES WHICH WERE UNREMARKABLE. THERE WAS CONCERN FOR PYELONEPHRITIS. PATIENT UA WAS POSITIVE WELL. PATIENT WAS STARTED ON IV HYDRATION AND IV ANTIBIOTICS. PATIENT ALSO HAS SIGNIFICANT RENAL INSUFFICIENCY WITH A CREATININE GREATER THAN 5. PATIENT WAS ADMITTED TO THE HOSPITAL FOR FURTHER WORKUP. Allergies Penicillins Allergy (Intermediate, Verified 04/15/19 21:16) Hives/Rash codeine [From Tylenol-Codeine] Allergy (Verified 04/15/19 21:16) Itching Home Medications: Aspirin 81 mg PO DAILY 11/21/17 Amitriptyline [Elavil*] 50 mg PO BEDTIME PRN 06/10/18 Amlodipine [Norvasc*] 10 mg PO DAILY 06/10/18 Carvedilol [Coreg*] 25 mg PO BID 6AM 6PM 06/10/18 Hydrocodone 10/APAP 325 [[place] 10/325*] 1 tab PO Q8H PRN 06/10/18 [place] Carbonate [Lithotabs *] 600 mg PO BEDTIME 06/10/18 Amiodarone HCl [Cordarone*] 1 tab PO DAILY 04/15/19 Isosorbide Mononitrate [Isosorbide Mononitrate ER] 1 tab PO DAILY 04/15/19 Losartan Potassium 25 mg PO DAILY 04/15/19 Mometasone/Formoterol [Dulera 100 Mcg/5 Mcg Inhaler] 1 puff IH BID 04/15/19 [facility] PRN 04/15/19 Potassium Chloride 20 meq PO DAILY 04/15/19 Ranolazine [Ranexa] 1,000 mg PO BID 04/15/19 Simvastatin 40 mg PO BEDTIME 04/15/19 hydroCHLOROthiazide [Hydrochlorothiazide*] 25 mg PO DAILY 04/15/19 - Past Medical/Surgical History Has patient received pneumonia vaccine in the past: Yes Diabetic: No -: Chronic back pain, Pain management-Dr. Connolly -: HTN -: CAD, CABG times 2 vessels in December 2015 -: COPD -: Exposure to asbestosis -: Bipolar disorder -: Hyperlipidemia -: Severe sleep apnea -: Chronic pain syndrome -: CHF -: afib -: pneumonia -: Right Leg surgery -: Back surgery -: Cholecystectomy -: Cardiac catheterization -: CABG- Double bypass 12/2015 -: Neck Surgery Psychosocial/ Personal History: Single, Children-1, Work-Disabled due to back. - Family History Mother Medical History: Cancer Father Medical History: Heart disease, Cancer - Social History Smoking Status: Never smoker Alcohol use: No CD- Drugs: No Caffeine use: Yes Place of Residence: Home Review of Systems 10-point ROS is otherwise unremarkable Physical Examination - Vital Signs Temperature: 97.5 F Blood Pressure: 141/74 Pulse: 65 Respirations: 20 Pulse Ox (%): 95 - Physical Exam General: Alert, In no apparent distress, Oriented x3 HEENT: Atraumatic, PERRLA, Mucous membr. moist/pink, EOMI, Sclerae nonicteric Neck: Supple, 2+ carotid pulse no bruit, No LAD, Without JVD or thyroid abnormality Respiratory: Clear to auscultation bilaterally, Normal air movement Cardiovascular: Regular rate/rhythm, Normal S1 S2 Gastrointestinal: Normal bowel sounds, Soft and benign, Non-distended, No tenderness Musculoskeletal: No tenderness Integumentary: No rashes Neurological: Normal speech, Normal tone, Sensation intact, Cranial nerves 3-12 intact, Normal affect Lymphatics: No axilla or inguinal lymphadenopathy - Studies Laboratory Data (last 24 hrs) 04/15/19 17:10: PT 12.8 H, INR 1.09, APTT 31.1 04/15/19 17:10: WBC 15.6 H, Hgb 12.5 L, Hct 38.3 L, Plt Count 263 04/15/19 17:10: Sodium 136, Potassium 3.9, BUN 60 H, Creatinine 5.18 H*, Glucose 131 H, Total Bilirubin 0.4, AST 57 H, ALT 54, Alkaline Phosphatase 75, Lipase 125 Assessment & Plan - Problems (Diagnosis) (1) Altered mental status Current Visit: Yes Status: Acute (2) UTI (urinary tract infection) Current Visit: Yes Status: Acute (3) Acute kidney injury Current Visit: Yes Status: Acute (4) Uremic encephalopathy Current Visit: Yes Status: Acute - Plan PLAN: 1. IV HYDRATION 2. IV ANTIBIOTICS 3. MONITOR ELECTROLYTES AND LABS CLOSELY 4. MONITOR URINE OUTPUT WHEN CÁRDENAS IS DC 5. RESUME HOME CARDIAC MEDICATIONS 6. GI AND DVT PROPHYLAXIS Discharge Plan: Home Plan to discharge in: Greater than 2 days - Advance Directives Does patient have a Living Will: Yes Does patient have a Durable POA for Healthcare: Yes - Code Status/Comfort Care Code Status Assessed: Yes Code Status: Full Code Critical Care: No Time Spent Managing PTS Care (In Minutes): 45
--- NOTE | 2019-04-16 10:16 | P.PN ---
Subjective Date of Service: 04/16/19 Chief Complaint: Altered mental status /lethargic /urinary tract infection/KAT Subjective: Improving Patient seen and examined at bedside. No family at bedside. Chart reviewed and case discussed with nursing staff. Patient reports improvement this morning Denies any chest pain, headache, dizziness. Complains of chronic lower back pain and requesting his home pain medication restarted along with some IV pain meds to help Review of Systems 10-point ROS is otherwise unremarkable Physical Examination - Vital Signs Temperature: 97.5 F Blood Pressure: 141/74 Pulse: 65 Respirations: 20 Pulse Ox (%): 95 - Physical Exam General: Alert, In no apparent distress, Oriented x3 HEENT: Atraumatic, PERRLA, EOMI Neck: Supple, JVD not distended Respiratory: Clear to auscultation bilaterally, Normal air movement Cardiovascular: Regular rate/rhythm, Normal S1 S2 Gastrointestinal: Normal bowel sounds, No tenderness Musculoskeletal: Tenderness Integumentary: No rashes Neurological: Normal speech, Normal tone, Normal affect Lymphatics: No axilla or inguinal lymphadenopathy - Studies Laboratory Data (last 24 hrs) 04/15/19 17:10: PT 12.8 H, INR 1.09, APTT 31.1 04/15/19 17:10: WBC 15.6 H, Hgb 12.5 L, Hct 38.3 L, Plt Count 263 04/15/19 17:10: Sodium 136, Potassium 3.9, BUN 60 H, Creatinine 5.18 H*, Glucose 131 H, Total Bilirubin 0.4, AST 57 H, ALT 54, Alkaline Phosphatase 75, Lipase 125 Assessment And Plan - Current Problems (Diagnosis) (1) Altered mental status Current Visit: Yes Status: Acute (2) UTI (urinary tract infection) Current Visit: Yes Status: Acute (3) Acute kidney injury Current Visit: Yes Status: Acute (4) Uremic encephalopathy Current Visit: Yes Status: Acute (5) Atrial fibrillation Onset Date: 11/22/17 Current Visit: No Status: Chronic Qualifiers: Atrial fibrillation type: persistent Qualified Code(s): I48.1 - Persistent atrial fibrillation (6) Chronic back pain Onset Date: 10/27/16 Current Visit: No Status: Chronic Qualifiers: Back pain location: low back pain Back pain laterality: midline Sciatica presence: without sciatica Qualified Code(s): M54.5 - Low back pain; G89.29 - Other chronic pain (7) COPD exacerbation Onset Date: 10/29/16 Current Visit: No Status: Acute (8) Bipolar 1 disorder Onset Date: 10/13/16 Current Visit: No Status: Chronic (9) Hyperlipidemia Onset Date: 10/13/16 Current Visit: No Status: Chronic Qualifiers: (10) Hypotension Onset Date: 05/13/16 Current Visit: No Status: Acute (11) CHF (congestive heart failure) Onset Date: 01/20/16 Current Visit: No Status: Chronic Qualifiers: Heart failure type: unspecified (12) CAD (coronary artery disease) Onset Date: 01/20/16 Current Visit: No Status: Chronic Qualifiers: Coronary Disease-Associated Artery/Lesion type: [place] artery [place] vs. transplanted heart: [place] heart Associated angina: with stable angina Qualified Code(s): I25.118 - Atherosclerotic heart disease of [place] coronary artery with other forms of angina pectoris - Plan Altered mentation resolved. Creatinine improving. Continue IV fluid Continue IV antibiotics CT abdomen pelvis pending to evaluate for pyelonephritis. Rahul Alexander. Continue to monitor urine output Continue home medications
[2019-04-16] MEDS: MORPHINE 2 MG/ML SYR IV PRN ×3 (15:28→23:59)
[2019-04-16] MEDS: ACETAMINOPHEN 325 MG TABLET PO PRN ×2 (16:45→22:29)
[2019-04-16] MEDS: LOSARTAN POTASSIUM 50 MG TABLET PO SCH (17:47)
[2019-04-16] MEDS: hydroCHLOROthiazide 25 MG TAB PO SCH (17:47)
[2019-04-17] MEDS ORDERED: METOPROLOL TARTRATE 5 MG/5 ML INJ IV STA (04:44)
[2019-04-17] MEDS: ACETAMINOPHEN 325 MG TABLET PO PRN (04:46)
[2019-04-17] MEDS ORDERED: HYDROCODONE/APAP 10/325 TAB PO PRN (05:13)
[2019-04-17] MEDS ORDERED: AMITRIPTYLINE 50 MG TAB PO PRN (05:13)
[2019-04-17 06:02] LABS: Absolute Lymphocytes (CBC) 0.9 K/uL (0.7-4.9); Basophils % 0.3 % (0-1.3); Eosinophils % 0.7 % (0-4.4); Hematocrit 38.5 % (39.6-49.0); Lymphocytes % 5.9 % (15.3-44.8); MPV 10.1 fL (7.6-11.3); Monocytes % 9.9 % (3.3-12.3); RBC Red Blood Cell Count 4.18 M/uL (4.33-5.43)
[2019-04-17] MEDS: MORPHINE 2 MG/ML SYR IV PRN ×3 (06:08→20:37)
[2019-04-17] MEDS: CARVEDILOL 12.5 MG TAB PO SCH ×2 (06:09→17:02)
[2019-04-17 06:25] LABS: Albumin 2.2 g/dL (3.4-5.0); Potassium 4.1 mmol/L (3.5-5.1)
[2019-04-17] MEDS: CEFTRIAXONE/SWI 1gm 1 GM/10 ML SYR IV SCH (06:36)
[2019-04-17] MEDS: AMIODARONE HCL 200 MG TAB PO SCH (08:25)
[2019-04-17] MEDS: POTASSIUM CL SA 10 MEQ TAB PO SCH (08:25)
[2019-04-17] MEDS: AMLODIPINE 5 MG TAB PO SCH (08:25)
[2019-04-17] MEDS: ASPIRIN 81 MG CHEWABLE TABLET PO SCH (08:26)
[2019-04-17] MEDS: LOSARTAN POTASSIUM 50 MG TABLET PO SCH ×2 (08:26→17:03)
[2019-04-17] MEDS: ISOSORBIDE MONO SR 30 MG TAB PO SCH (08:27)
[2019-04-17] MEDS ORDERED: CEFTRIAXONE 1 GM/NS 50 ML 1 GM/50 ML BAG IV SCH (09:00)
--- NOTE | 2019-04-17 10:54 | P.PN ---
Subjective Date of Service: 04/17/19 Chief Complaint: Altered mental status /lethargic /urinary tract infection/KAT Subjective: Improving Patient seen and examined at bedside. No family at bedside. Chart reviewed and case discussed with nursing staff. Patient reports improvement this morning Denies any chest pain, headache, dizziness. Complains of chronic lower back pain No acute events noted overnight Review of Systems 10-point ROS is otherwise unremarkable Physical Examination - Vital Signs Temperature: 98.1 F Blood Pressure: 167/82 Pulse: 74 Respirations: 20 Pulse Ox (%): 96 - Physical Exam General: Alert, In no apparent distress, Oriented x3, Other (weak, elderly. ) HEENT: Atraumatic, PERRLA, EOMI Neck: Supple, JVD not distended Respiratory: Clear to auscultation bilaterally, Normal air movement Cardiovascular: Regular rate/rhythm, Normal S1 S2 Gastrointestinal: Normal bowel sounds, No tenderness Musculoskeletal: No tenderness Integumentary: No rashes Neurological: Normal speech, Normal tone, Normal affect Lymphatics: No axilla or inguinal lymphadenopathy Assessment And Plan - Current Problems (Diagnosis) (1) Bacteremia Current Visit: Yes Status: Acute Plan: 10/28 BCx positive for G(-) rods. IV antibiotics adjusted, continue (2) Pyelonephritis of left kidney Current Visit: Yes Status: Acute Plan: Abdominal CT w/ fat stranding, c/w mild pyelonephritis. Continue IV antibiotics (3) UTI (urinary tract infection) Current Visit: Yes Status: Acute Plan: Initial cultures positive for G - Rods, pending cultures. IV antibiotics adjusted, continue. Qualifiers: Urinary tract infection type: acute cystitis Hematuria presence: without hematuria Qualified Code(s): N30.00 - Acute cystitis without hematuria (4) Acute kidney injury Current Visit: Yes Status: Acute Plan: Likely pre-renal. - Creatinine improving, almost back to baseline. Continue IV fluid (5) Atrial fibrillation Onset Date: 11/22/17 Current Visit: No Status: Chronic Plan: Continue home medications. Currently rate controlled. Qualifiers: Atrial fibrillation type: persistent Qualified Code(s): I48.1 - Persistent atrial fibrillation (6) Chronic back pain Onset Date: 10/27/16 Current Visit: No Status: Chronic Plan: Pain control with IV morphine and PO norco. - Patient already has an established pain management physician that he will follow up with after discharge. Qualifiers: Back pain location: low back pain Back pain laterality: midline Sciatica presence: without sciatica Qualified Code(s): M54.5 - Low back pain; G89.29 - Other chronic pain (7) COPD exacerbation Onset Date: 10/29/16 Current Visit: No Status: Chronic Plan: Breathing treatments as needed. Continue home medications. (8) Bipolar 1 disorder Onset Date: 10/13/16 Current Visit: No Status: Chronic Plan: Stable, continue home medications. (9) Hyperlipidemia Onset Date: 10/13/16 Current Visit: No Status: Chronic Qualifiers: Hyperlipidemia type: unspecified Qualified Code(s): E78.5 - Hyperlipidemia , unspecified (10) CHF (congestive heart failure) Onset Date: 01/20/16 Current Visit: No Status: Chronic Qualifiers: Heart failure type: unspecified (11) CAD (coronary artery disease) Onset Date: 01/20/16 Current Visit: No Status: Chronic Qualifiers: Coronary Disease-Associated Artery/Lesion type: [place] artery [place] vs. transplanted heart: [place] heart Associated angina: with stable angina Qualified Code(s): I25.118 - Atherosclerotic heart disease of [place] coronary artery with other forms of angina pectoris (12) Uremic encephalopathy Current Visit: Yes Status: Resolved (13) Altered mental status Current Visit: Yes Status: Resolved Plan: Likely secondary to infection Mentation back to baseline. Qualifiers: Altered mental status type: unspecified Qualified Code(s): R41.82 - Altered mental status, unspecified (14) Hypotension Onset Date: 05/13/16 Current Visit: No Status: Resolved Qualifiers: Hypotension type: unspecified hypotension type Qualified Code(s): I95.9 - Hypotension, unspecified - Plan DVT prohylaxis: Lovenox GI prophylaxis: Protonix Diet: Heart healthy Disposition: Pending symptomatic improvement and cultures. Possible discharge home on PO antibiotics in the next 24-48 hours.
[2019-04-17] MEDS: NA CHLORIDE 0.9% 1,000 ML IV SCH (12:02)
--- NOTE | 2019-04-17 12:25 | RAD REPORT ---
EXAM DESCRIPTION: CT - Chest Abd Pelvis Wo Con - 04/15/2019 8:04 pm CLINICAL HISTORY: Acute renal failure. Sepsis. COMPARISON: None. TECHNIQUE: CT scan of the chest, abdomen, and pelvis without IV contrast. This exam was performed ac cording to our departmental dose-optimization program, which includes automated exposure control, adj ustment of the mA and/or kV according to patient size and/or use of iterative reconstruction techniqu e. FINDINGS: The thyroid gland is unremarkable. No mediastinal or axillary adenopathy. Limited evaluati on for hilar adenopathy without IV contrast. The heart size is normal without pericardial effusion. N o consolidation, pleural effusion, or pneumothorax. There has been a prior cholecystectomy. The liver, spleen, pancreas, adrenal glands, and right kidney are unremarkable. Mild left perinephric stranding. No obstructing urinary stones. A Alexander catheter i n the urinary bladder is present. The appendix is not seen. No small bowel obstruction. There are sca ttered colonic diverticula without surrounding inflammatory changes. No intraperitoneal free fluid or free air is seen. The aorta is normal caliber and contains atherosclerotic calcifications. No acute bony findings are s een. Mild irregularity of the right ilium, nonspecific. No pathologic body wall hernia. IMPRESSION: Mild left perinephric stranding without obstructing stone identified. Correlate with uri nalysis. Consider contrast-enhanced study if there is high concern for acute pyelonephritis. Electronically signed by: Paul Novoa MD 04/15/2019 7:59 PM CDT Due to temporary technical issues with the PACS/Fluency reporting system, reports are being signed by the in house radiologist as a courtesy to ensure prompt reporting. The interpreting radiologist is f ully responsible for the content of the report.
[2019-04-17] MEDS: hydroCHLOROthiazide 25 MG TAB PO SCH (17:02)
[2019-04-17 18:11] VITALS: BMI 22.8
[2019-04-17] MEDS: ATORVASTATIN 40 MG TAB PO SCH (20:37)
[2019-04-17] MEDS: LITHIUM CARBONATE 300 MG TAB PO SCH (20:38)
[2019-04-18] MEDS: NA CHLORIDE 0.9% 1,000 ML IV SCH (00:35)
[2019-04-18] MEDS: CEFTRIAXONE/SWI 1gm 1 GM/10 ML SYR IV SCH (05:29)
[2019-04-18] MEDS: CARVEDILOL 12.5 MG TAB PO SCH ×2 (05:29→16:45)
[2019-04-18] MEDS: MORPHINE 2 MG/ML SYR IV PRN ×2 (05:32→10:46)
[2019-04-18 06:21] LABS: Absolute Lymphocytes (CBC) 1.1 K/uL (0.7-4.9); Basophils % 0.3 % (0-1.3); Eosinophils % 0.8 % (0-4.4); Hematocrit 37.3 % (39.6-49.0); Lymphocytes % 8.6 % (15.3-44.8); MPV 9.9 fL (7.6-11.3); Monocytes % 10.5 % (3.3-12.3); RBC Red Blood Cell Count 4.07 M/uL (4.33-5.43)
[2019-04-18 06:44] LABS: Urine Appearance CLEAR; Urine Bilirubin NEGATIVE (NEG); Urine Blood NEGATIVE (NEG); Urine Color YELLOW; Urine Glucose NEGATIVE (NEG); Urine Protein TRACE (NEG); Urine Specific Gravity 1.015 (1.005-1.030); Urine pH 5.5 (5.0-7.0)
[2019-04-18 06:47] LABS: Albumin 2.2 g/dL (3.4-5.0); Bilirubin Total 0.9 mg/dL (0.2-1.0); Protein, Total 6.9 g/dL (6.4-8.2)
[2019-04-18 06:50] LABS: Urine Microscopic Reflex ORDER UMIC
[2019-04-18 07:05] LABS: Urine Culture Reflex Order REFLEXED
[2019-04-18 07:06] LABS: Urine Bacteria <20 /HPF (NONE SEEN); Urine Mucus 1+ /HPF (NONE SEEN); Urine RBC <5 /HPF (NONE SEEN)
[2019-04-18] MEDS: POTASSIUM CL SA 10 MEQ TAB PO SCH (08:53)
[2019-04-18] MEDS: LOSARTAN POTASSIUM 50 MG TABLET PO SCH ×2 (08:54→09:00)
[2019-04-18] MEDS: hydroCHLOROthiazide 25 MG TAB PO SCH (08:54)
[2019-04-18] MEDS: ASPIRIN 81 MG CHEWABLE TABLET PO SCH (08:55)
[2019-04-18] MEDS: ISOSORBIDE MONO SR 30 MG TAB PO SCH (08:55)
[2019-04-18] MEDS: AMLODIPINE 5 MG TAB PO SCH (08:55)
[2019-04-18] MEDS: AMIODARONE HCL 200 MG TAB PO SCH (08:55)
[2019-04-18] MEDS ORDERED: HYDRALAZINE HCL 20 MG/ML VIAL IV PRN (10:38)
--- NOTE | 2019-04-18 14:45 | PN ---
Date of Progress Note: 04/18/2019 Subjective: The patient seen and examined. Chart reviewed and case discussed with RN. The patient denies any specific complaints at this time; however, last night had episode of chest pain. EKG was done, which showed normal sinus rhythm with bundle branch block. Chest pain resolved with pain medic ations. Medications: List reviewed. Physical Examination: Vital Signs: Temperature 99.5, heart rate 76, blood pressure 174/94, respirations 17, O2 95% on room air. T-max was 100.9 at 12:30 a.m. General: Awake, alert, oriented x3. Appears older than stated age, ill-appearing male. CV: S1 and S2. Regular rate and rhythm. Peripheral pulses present. Respiratory: Moving air well bilaterally. No wheezing or stridor. No use of accessory muscles. Gastrointestinal: Abdomen is soft, nontender, nondistended. Positive bowel sounds. Extremities: No clubbing, cyanosis, or edema. Neuro: Cranial nerves 2 through 12 intact grossly. No focal neurological deficit. Speech is normal . Laboratory Data: Sodium 140, potassium 4, chloride 106, CO2 25, BUN 19, creatinine 0.9, glucose 121, calcium 8.2, AST 41, ALT 35, alkaline phosphatase 63, total bilirubin 0.9, albumin 2.2. WBC 13.1, H and H 12.2 and 37.3, platelets 218, neutrophils 79%. Blood cultures, E coli. Urine culture growing out gram-negative rods. ID and sensitivity pending. Assessment And Plan: A 58-year-old male with: 1.Bacteremia secondary to Escherichia coli. We will continue IV antibiotics and monitor for improve ment. White count still elevated at 13,000. The patient is still spiking temperature 100.9 last nig ht. 2.Pyelonephritis of left kidney, improving. Urine culture growing out gram-negative rods. ID and s ensitivity pending. Abdominal CT scan reviewed shows fat stranding with mild pyelonephritis. 3.Acute kidney injury, likely prerenal. Creatinine is now normalized, likely secondary to pyeloneph ritis. 4.History of atrial fibrillation, paroxysmal. Continue rate control. 5.Chronic back pain, midline without sciatica. Continue [place]. The patient follows with Pain Manag ement as an outpatient. 6.Chronic obstructive pulmonary disease. Continue with nebulizer treatments and O2 as needed. 7.Bipolar 1 disorder, stable. 8.Mixed hyperlipidemia. Continue home medication. 9.Congestive heart failure, chronic, stable, currently compensated. Last known EF shows 73%, diasto lic dysfunction. 10.Coronary artery disease, [place] artery, and [place] heart with unstable angina, status post pereira ry artery bypass graft. EKG did not show any changes. We will continue to monitor. 11.Uremic encephalopathy, improving. 12.Acute hypotension, likely secondary to acute infectious state, improved. Blood pressure now back on the high side. We will continue p.r.n. medications. 13.Deep vein thrombosis prophylaxis, Lovenox. Gastrointestinal prophylaxis with Protonix. Plan: Discharge in next 24 hours to 48 hours depending on clinical response. Follow up with urine c ulture, ID and sensitivity. SA/MODL Voice ID: [id number] Report ID: [id number]
--- NOTE | 2019-04-18 14:49 | EKG ---
Test Date: 2019-04-18 Test Time: 06:52:39 Hotel Registration Clerk: RT-O MEASUREMENT RESULTS: Intervals: Rate: 60 TN: 172 QRSD: 106 QT: 520 QTc: 520 [place]: P: 60 TN: 172 QRS: 36 T: 82 INTERPRETIVE STATEMENTS: Normal sinus rhythm Incomplete right bundle branch block Septal infarct, age undetermined Prolonged QT Abnormal ECG Compared to ECG 04/15/2019 16:56:14 Incomplete right bundle-branch block now present Prolonged QT interval now present ST (T wave) deviation no longer present Possible ischemia no longer present Myocardial infarct finding still present Electronically Signed On 04-18-19 14:47:16 CDT by Ghulam Berrios
--- NOTE | 2019-04-18 14:54 | EKG ---
Test Date: 2019-04-15 Test Time: 16:56:14 Oven Drier Tender: MUSTAPHA MEASUREMENT RESULTS: Intervals: Rate: 88 NV: 164 QRSD: 94 QT: 402 QTc: 486 [place]: P: 56 NV: 164 QRS: 37 T: 133 INTERPRETIVE STATEMENTS: Normal sinus rhythm RSR' or QR pattern in V1 suggests right ventricular conduction delay Septal infarct, age undetermined ST & T wave abnormality, consider lateral ischemia Abnormal ECG Compared to ECG 07/21/2018 16:30:35 RSR' in V1 or V2 now present ST (T wave) deviation now present Possible ischemia now present Sinus tachycardia no longer present Myocardial infarct finding still present Electronically Signed On 04-18-19 14:47:58 CDT by Ghulam Berrios
[2019-04-18] MEDS: MORPHINE 4 MG/ML SYR IV PRN ×2 (15:02→20:01)
[2019-04-18] MEDS: LITHIUM CARBONATE 300 MG TAB PO SCH (19:56)
[2019-04-18] MEDS: ATORVASTATIN 40 MG TAB PO SCH (19:56)
[2019-04-18] MEDS: ACETAMINOPHEN 325 MG TABLET PO PRN (22:04)
[2019-04-19] MEDS: MORPHINE 4 MG/ML SYR IV PRN ×3 (01:54→09:44)
[2019-04-19] MEDS: CARVEDILOL 12.5 MG TAB PO SCH (05:43)
[2019-04-19] MEDS: CEFTRIAXONE/SWI 1gm 1 GM/10 ML SYR IV SCH (05:43)
[2019-04-19 06:06] LABS: Absolute Lymphocytes (CBC) 1.4 K/uL (0.7-4.9); Basophils % 0.3 % (0-1.3); Eosinophils % 2.5 % (0-4.4); Hematocrit 38.2 % (39.6-49.0); MPV 9.9 fL (7.6-11.3); Monocytes % 11.7 % (3.3-12.3)
[2019-04-19 06:25] LABS: Albumin 2.3 g/dL (3.4-5.0); Bilirubin Total 0.9 mg/dL (0.2-1.0); Potassium 3.9 mmol/L (3.5-5.1); Protein, Total 7.1 g/dL (6.4-8.2)
[2019-04-19] MEDS ORDERED: POTASSIUM CL SA 10 MEQ TAB PO ONE (09:00)
[2019-04-19] MEDS: hydroCHLOROthiazide 25 MG TAB PO SCH (09:45)
[2019-04-19] MEDS: AMLODIPINE 5 MG TAB PO SCH (09:45)
[2019-04-19] MEDS: POTASSIUM CL SA 10 MEQ TAB PO SCH (09:46)
[2019-04-19] MEDS: ISOSORBIDE MONO SR 30 MG TAB PO SCH (09:46)
[2019-04-19] MEDS: LOSARTAN POTASSIUM 50 MG TABLET PO SCH (09:47)
[2019-04-19] MEDS: ASPIRIN 81 MG CHEWABLE TABLET PO SCH (09:47)
[2019-04-19] MEDS: AMIODARONE HCL 200 MG TAB PO SCH (09:47)
[2019-04-19 11:23] VITALS: O2SAT 96
[2019-04-19 14:45] VITALS: BP 154/81; TEMP 98.7
--- NOTE | 2019-04-19 23:43 | DS ---
Date of Discharge: 04/19/2019 Admitting Diagnoses: 1.Acute uremic encephalopathy. 2.UTI. 3.Acute kidney injury. Discharge Diagnoses: 1.Bacteremia secondary to E coli. 2.Pyelonephritis of the left kidney, improving, secondary to E coli. 3.Acute kidney injury, improved. 4.History of paroxysmal atrial fibrillation, rate controlled. 5.Chronic back pain, midline, without sciatica on chronic narcotics. 6.COPD, chronic bronchitis. 7.Bipolar 1 disorder. 8.Mixed hyperlipidemia. 9.Congestive heart failure, chronic diastolic dysfunction. 10.Coronary artery disease, [place] artery, [place] heart, with unstable angina, status post CABG. 11.Uremic encephalopathy, resolved. 12.Acute hypotension, resolved, secondary to acute bacteremia and pyelonephritis. 13.Rhabdomyolysis. 14.Incomplete right bundle-branch block. Hospital Course: The patient is a 58-year-old male with past medical history of bipolar disorder, hy pertension, COPD, coronary artery disease status post CABG, hyperlipidemia, chronic back pain, conges tive heart failure, who comes in to the hospital with altered mental status, lethargy. He was found to have UTI along with acute kidney injury. The patient was started on IV antibiotics. His cultures were obtained. Blood cultures and urine culture grew out E coli. His WBC count trended down his ki dney function, which was initially at 5.18, improved and normalized to 1. The patient did have eleva olivia CK level, which also improved. Overall, the patient did well. His acute infectious phase improv ed. He did continue to have fevers; however, his white blood cell count trended down. He did not ap pear to be septic. The patient responded well to IV antibiotics. The patient does have multiple com orbidities including coronary artery disease, congestive heart failure, and COPD. The patient was ab le to ambulate without difficulty. He did request increase in his dose of morphine as he states that he has been on [place] for 7 years and has a high tolerance for pain, normally sees Pain Management. He has had a TENS unit as well as a pain pump previously, which did not improve his pain. He is sarahi mmended to follow up with Dr. Connolly of Pain Management for further evaluation of his chronic pain. I recommended that he be weaned off chronic narcotics due to their addictive nature as well as deve loping tolerance. The patient voiced understanding. The patient was then cleared for discharge. He is doing well. He has been afebrile for at least 12 hours. No signs of sepsis. Medications: List reviewed. He will finish off course of antibiotics for 2 weeks. He will need rep eat blood culture and urine culture after completion of antibiotics by PCP. Followup: Follow up with primary care physician in 2-3 days. Return to ER for worsening condition. Diet: Low-sodium, fluid-restricted diet. Activity: No operating heavy machinery or driving while on narcotics. Physical Examination: General: Awake, alert, oriented x3. No acute distress. CV: S1, S2. No murmurs. Respiratory: Moving air well bilaterally. No wheezing. Gastrointestinal: Abdomen is soft, nontender, nondistended. Positive bowel sounds. Extremities: No clubbing, cyanosis, or edema. Neuro: Nonfocal. Total time spent discharging the patient was 41 minutes. ARMAND Voice ID: [id number] Report ID: [id number]
== END 2019-04-19 13:40 | disposition home or self-care (01) | DRG 683 ==
LOC: ER 16:40 → ERHOLD 18:24 → 2ND 19:59
PROVIDERS: ADMIT Family Medicine; ATTEND Family Medicine
DX: N17.9 Acute kidney failure, unspecified (principal); G93.49 Other encephalopathy; J44.1 Chronic obstructive pulmonary disease with (acute) exacerbation; R78.81 Bacteremia; I50.32 Chronic diastolic (congestive) heart failure; M62.82 Rhabdomyolysis; N10 Acute pyelonephritis; B96.20 Unspecified Escherichia coli [E. coli] as the cause of diseases classified elsewhere; I25.10 Atherosclerotic heart disease of native coronary artery without angina pectoris; I95.89 Other hypotension; I45.10 Unspecified right bundle-branch block; I48.0 Paroxysmal atrial fibrillation; E78.2 Mixed hyperlipidemia; G47.30 Sleep apnea, unspecified; F31.9 Bipolar disorder, unspecified; G89.4 Chronic pain syndrome; M54.9 Dorsalgia, unspecified; Z79.82 Long term (current) use of aspirin; Z95.1 Presence of aortocoronary bypass graft; Z88.5 Allergy status to narcotic agent; Z88.0 Allergy status to penicillin
CPT/HCPCS: 36415; 51702; 70450; 71045; 71250; 74176; 80048; 80053; 80076; 81003; 81015; 82140; 82550; 82553; 83605; 83690; 83735; 84100; 84145; 84484; 85025; 85610; 85730; 87040; 87077; 87086; 87088; 87186; 87205; 93005; 94760; 96365; 99285; J0692; J0696; J2270; J7030

== ENCOUNTER 2019-06-09 06:13 | Emergency (ER) | payer OTHER ==
--- OUTSIDE RECORDS SUMMARY | 2019-06-09 06:16 | XMS REPORT | Clinical Summary ---
:1960 Author Organization [facility] Address [address] [place] [address] Care Team Providers Name Role Phone Sharpsophie Primary Care Provider Wilfrido Boyle Unavailable Allergies Active Allergy Reactions Severity Noted Date Comments Codeine Hives 05/08/2018 Penicillins 01/22/2016 Medications Medication Sig Dispensed Refills Start Date End Date Status amitriptyline Take 50 mg by mouth 0 Active (ELAVIL) 50 MG tablet nightly. DULoxetine (CYMBALTA) Take 60 mg by mouth 0 Active 60 MG capsule daily. vitamin E 200 UNIT Take 200 Units by 0 Active capsule mouth daily. methocarbamol Take 750 mg by 0 Active (ROBAXIN) 750 MG mouth 4 (four) tablet times daily. carvedilol (COREG) 25 Take 1 tablet (25 60 tablet 0 01/28/2016 Active MG tablet mg total) by mouth 2 (two) times daily with breakfast and dinner. lithium 300 MG Take 300 mg by 0 Active capsule mouth 2 (two) times daily with breakfast and dinner. amLODIPine (NORVASC) Take 10 mg by mouth 0 Active 10 MG tablet daily. lisinopril Take 20 mg by mouth 0 Active (PRINIVIL,ZESTRIL) 40 daily . MG tablet aspirin 81 MG Take 1 tablet (81 30 tablet 0 05/12/2018 Active chewable tablet mg total) by mouth daily. albuterol HFA Inhale 1 puff by 0 Active (VENTOLIN HFA) 90 mouth via inhaler mcg/actuation inhaler every 6 (six) hours as needed for Wheezing. mometasone-formoterol Inhale 2 puffs by 0 Active (DULERA) 100-5 mouth via inhaler 2 mcg/actuation inhaler (two) times daily. HYDROcodone-acetamino Take 1 tablet by 0 Active phen (NORCO 10-325) mouth every 6 (six) 10-325 mg per tablet hours as needed for Pain. traZODone (DESYREL) Take 0.5 tablets 15 tablet 0 05/12/2018 Active 50 MG tablet (25 mg total) by mouth every night as needed for Sleep. nitroglycerin Put 1 pill under 30 tablet 0 05/12/2018 Active (NITROSTAT) 0.4 MG SL tongue every 5min tablet as needed for chest pain.No more than 3 doses in 15min.. lidocaine (LIDODERM) Place 3 patches 30 patch 0 05/12/2018 Active 5 % patch onto the skin daily Remove & Discard patch within 12 hours or as directed by MD. famotidine (PEPCID) Take 1 tablet (20 30 tablet 0 05/12/2018 Active 20 MG tablet mg total) by mouth 2 (two) times daily as needed for Heartburn. atorvastatin Take 1 tablet (20 30 tablet 0 05/12/2018 Active (LIPITOR) 20 MG mg total) by mouth tablet nightly Take instead of simvastatin for cholesterol. Active Problems Problem Noted Date Hypertensive emergency 05/13/2018 Acute kidney injury 05/13/2018 Diarrhea 05/13/2018 Transaminitis 05/13/2018 Hepatitis C virus infection without hepatic coma 05/13/2018 Chest pain 05/09/2018 Syncope 05/09/2018 Paroxysmal atrial fibrillation 05/09/2018 COPD (chronic obstructive pulmonary disease) 05/09/2018 CAD (coronary artery disease) 01/22/2016 Encounters Date Type Specialty Care Team Description 06/10/2018 Anesthesia Event Gastroenterology Mario Hsieh MD after 06/08/2018 Social History Tobacco Use Types Packs/Day Years Used Date Never Assessed Sex Assigned at Date Recorded Not on file Job Start Date Occupation Industry Not on file Not on file Not on file Travel History Travel Start Travel End No recent travel history available. Last Filed Vital Signs Not on file Plan of Treatment Not on file Procedures Procedure Name Priority Date/Time Associated Diagnosis Comments RHYTHM STRIP - SCAN 02/03/2019 12:02 PM CDT RHYTHM STRIP - SCAN 02/01/2019 2:50 PM CDT VASCULAR DIAGRAM -SCAN 07/28/2018 11:20 AM CDT after 06/08/2018 Results RHYTHM STRIP - SCAN (02/03/2019 12:02 PM CDT)Only the most recent of2 resultswithin the time period is included. Narrative Performed At VASCULAR DIAGRAM -SCAN (07/28/2018 11:20 AM CDT) Narrative Performed At after 06/08/2018 Insurance Payer Benefit Plan / Group Subscriber ID Type Phone Address [employer] - MEDICARE UNITED MED[employer]ARE HMO xxxxxxxxx MGD CARE Advance Directives For more information, please contact:[facility] [place] [address] [phone] Code Status Date Activated Date Inactivated Comments [...]
--- OUTSIDE RECORDS SUMMARY | 2019-06-09 06:17 | XMS REPORT ---
[...] Status Dosage System Date Date Lisinopril ND 46952405298 40 MG Orally Active 1 tablet Once a day Clonidine HCl ND 88735966642 0.1 MG Orally April 20, Active 2 tablet twice 2018 twice x 1 week then 1 tablet twice a day for 1 week. Atorvastatin ND 49993257246 20 MG Orally Jul 27, Active 1 tablet Calcium Once a day 2018 Coreg [facility] 21710193653 12.5 MG Orally Active 2 tabs bid [place] [facility] 91734603424 600 MG Orally Jul 27, Active 1 capsule Carbonate Once a day 2018 at bedtime Amitriptyline [facility] 09474745328 50 MG Orally Active 1 tablet HCl Once a day [place] [facility] 74947897976 10-325 MG Active 1 tablet Orally every 6 as needed hrs Dulera [facility] 44056630539 100-5 MCG/ACT Active 2 puffs Inhalation Twice a day Amiodarone HCl [facility] 68854726928 200 MG Orally Active 1 tablet Once a day HydrALAZINE HCl [facility] 36291129774 25 MG Orally Jul 27, Active 1 tablet every 6 hrs 2018 with food Lipitor [facility] 51198375686 40 MG Orally Inactive 1 tablet Once a day Carvedilol [facility] 94450640252 25 MG Orally Jul 27, Active as 2018 directed Memantine HCl [facility] 41259265472 10 MG Orally Inactive 1 tablet Twice a day Results No Known Results Summary Purpose eClinicalWorks Submission
--- OUTSIDE RECORDS SUMMARY | 2019-06-09 06:17 | XMS REPORT ---
[...] Status Dosage System Date Date Amiodarone HCl [facility] 88590600470 200 MG Orally Active 1 tablet Once a day Amitriptyline HCl ND 42664389063 50 MG Orally February 28, Active 1 tablet Once a day 2017 Lisinopril ND 46449144457 40 MG Orally Active 1 tablet Once a day Coreg [facility] 94971542229 12.5 MG Orally Active 2 tabs bid Memantine HCl [facility] 51112026140 10 MG Orally Active 1 tablet Twice a day [place] [facility] 90123160494 10-325 MG Active 1 tablet Orally every 6 as needed hrs Clonidine HCl [facility] 53262260829 0.1 MG Orally April 20, Active 2 tablet twice 2017 twice x 1 week then 1 tablet twice a day for 1 week. Linzess [facility] 11275455727 145 MCG Orally April 20Jun Active 1 capsule Once a day 2017 Lipitor [facility] 97491654152 40 MG Orally Active 1 tablet Once a day Dulera [facility] 13438927825 100-5 MCG/ACT Active 2 puffs Inhalation Twice a day Results No Known Results Summary Purpose eClinicalWorks Submission
--- OUTSIDE RECORDS SUMMARY | 2019-06-09 06:17 | XMS REPORT ---
:1960 [facility] Address [address] [place], [place] [address]aurelia Burns [address] [place] [address] Care Team Providers Name Role Phone GLENN [...] Range Comments HEPATITIS C ANTIBODY (BEAKER) (test wvkl=708) Reactive Nonreactive POCT-GLUCOSE [id number] 12:03:00 Test Item Value Reference Range Comments POC-GLUCOSE METER (BEAKER) 169 mg/dL 70-110 TESTED AT [address] (test vkpk=7455) [facility] [address] HEPATITIS B CORE ANTIBODY, [id number] 08:37:00 Test Item Value Reference Range Comments HEPATITIS B CORE TOTAL ANTIBODY (BEAKER) (test Reactive Nonreactive jfhj=280) POCT-GLUCOSE [id number] 08:14:00 Test Item Value Reference Range Comments POC-GLUCOSE METER (BEAKER) 105 mg/dL 70-110 TESTED AT [place] [id number] [facility] (test zqop=0813) [facility] [address] HEPATIC FUNCTION [id number] 07:10:00 Test Item Value Reference Range Comments TOTAL PROTEIN (BEAKER) (test uuid=248) 6.7 gm/dL 6.0-8.3 ALBUMIN (BEAKER) (test ihwv=9805) 3.5 g/dL 3.5-5.0 BILIRUBIN TOTAL (BEAKER) (test pwlo=656) 0.5 mg/dL 0.2-1.2 BILIRUBIN DIRECT (BEAKER) (test sqql=042) 0.3 mg/dL 0.1-0.5 ALKALINE PHOSPHATASE (BEAKER) (test vjwj=467) 60 U/L 40-150 AST (SGOT) (BEAKER) (test sahh=615) 47 U/L 5-34 ALT (SGPT) (BEAKER) (test zqhe=992) 67 U/L 6-55 BASIC METABOLIC [id number] 07:10:00 Test Item Value Reference Range Comments SODIUM (BEAKER) (test 138 meq/L 136-145 azjd=252) POTASSIUM (BEAKER) (test 3.8 meq/L 3.5-5.1 cyuw=367) CHLORIDE (BEAKER) (test 104 meq/L 98-107 mdjy=599) CO2 (BEAKER) (test 25 meq/L 22-29 utga=010) BLOOD UREA NITROGEN 18 mg/dL 7-21 (BEAKER) (test lnfv=941) CREATININE (BEAKER) (test 0.94 mg/dL 0.57-1.25 lrtq=345) GLUCOSE RANDOM (BEAKER) 109 mg/dL 70-105 (test kivv=589) CALCIUM (BEAKER) (test 9.1 mg/dL 8.4-10.2 drxc=781) EGFR (BEAKER) (test 82 mL/min/1.73 sq m ESTIMATED GFR IS NOT trsa=9743) ACCURATE CREATININE CLEARANCE IN PREDICTING GLOMERULAR FILTRATION RATE. ESTIMATED GFR IS NOT APPLICABLE FOR DIALYSIS PATIENTS. HEPATITIS B SURFACE [id number] 06:58:00 Test Item Value Reference Range Comments HEPATITIS B SURFACE ANTIBODY (BEAKER) (test < mIU/mL <8.0 utxb=659) HEPATITIS B SURFACE [id number] 05:42:00 Test Item Value Reference Range Comments HEPATITIS B SURFACE ANTIGEN (2) (BEAKER) (test Nonreactive Nonreactive lswi=9583) HEPATITIS B CORE ANTIBODY, [id number] 05:42:00 Test Item Value Reference Range Comments HEPATITIS B CORE IGM ANTIBODY (BEAKER) (test Nonreactive Nonreactive hdje=941) CBC W/PLT COUNT & AUTO [id number] 04:56:00 Test Item Value Reference Range Comments WHITE BLOOD CELL COUNT (BEAKER) (test bxcn=091) 9.4 K/ L 3.5-10.5 RED BLOOD CELL COUNT (BEAKER) (test kegj=621) 4.48 M/ L 4.63-6.08 HEMOGLOBIN (BEAKER) (test smye=379) 13.6 GM/DL 13.7-17.5 HEMATOCRIT (BEAKER) (test uzsu=138) 41.5 % 40.1-51.0 MEAN CORPUSCULAR VOLUME (BEAKER) (test vxhk=923) 92.6 fL 79.0-92.2 MEAN CORPUSCULAR HEMOGLOBIN (BEAKER) (test 30.4 pg 25.7-32.2 eiuu=813) MEAN CORPUSCULAR HEMOGLOBIN CONC (BEAKER) (test 32.8 GM/DL 32.3-36.5 ntfz=743) RED CELL DISTRIBUTION WIDTH (BEAKER) (test 13.5 % 11.6-14.4 myjy=939) PLATELET COUNT (BEAKER) (test ovru=902) 218 K/CU MM 150-450 MEAN PLATELET VOLUME (BEAKER) (test higu=285) 11.3 fL 9.4-12.4 NUCLEATED RED BLOOD CELLS (BEAKER) (test 0 /100 WBC 0-0 dkjy=340) NEUTROPHILS RELATIVE PERCENT (BEAKER) (test 52 % bunm=762) LYMPHOCYTES RELATIVE PERCENT (BEAKER) (test 31 % tzvh=613) MONOCYTES RELATIVE PERCENT (BEAKER) (test 8 % nsqy=141) EOSINOPHILS RELATIVE PERCENT (BEAKER) (test 8 % tdin=178) BASOPHILS RELATIVE PERCENT (BEAKER) (test 1 % oifj=747) NEUTROPHILS ABSOLUTE COUNT (BEAKER) (test 4.85 K/ L 1.78-5.38 seaj=286) LYMPHOCYTES ABSOLUTE COUNT (BEAKER) (test 2.92 K/ L 1.32-3.57 ljwz=959) MONOCYTES ABSOLUTE COUNT (BEAKER) (test 0.77 K/ L 0.30-0.82 msce=404) EOSINOPHILS ABSOLUTE COUNT (BEAKER) (test 0.79 K/ L 0.04-0.54 pkkf=514) BASOPHILS ABSOLUTE COUNT (BEAKER) (test 0.06 K/ L 0.01-0.08 eods=369) IMMATURE GRANULOCYTES-RELATIVE PERCENT (BEAKER) 0 % 0-1 (test pgzd=8058) U/S, RENAL WITH [id number] 16:28:00Reason for exam:-> hypertensionFINAL REPORT INDICATION: 57-year-old [...] prostate noted on CT exam yesterday. Signed: aJn Rowell MDReport Verified Date/Time: 05/11/2018 16: 28:02 Reading Location: [address] Ultrasound Reading Room U/S, ABDOMINAL, [id number] 16:15:00Abdomen limited area? Add comment if clarification [...] Verified Date/Time: 05/11/2018 16 :15:41 Reading Location: [address] Ultrasound Reading Room CTA, CHEST, ABDOMEN - PELVIS, FOR [id number] 14:11:00Reason for exam:->Chest painAddendum BeginsREPORT STATUS:A Addendum: I agree with the previously described non vascular findings. Signed: Antionette Hinojosa MDReport Verified Date/Time: 05/11/2018 14:11:09 Reading Location: [place] [address] Angio Body Reading RoomAddendum EndsFINAL REPORT CT [...] coronary artery calcification is seen in the [place] coronary territories. Patient is post coronary artery [...] thoracic aorta. In the abdominal aorta, circumferential eihr-uu-vmngifyw calcific atherosclerosis is seen. Overall, no ectasia [...] An addendum will be dictated by the [place] Radiologist regarding the nonvascular findings. Signed: Magno Augustin Verified Date/Time: 05/10/2018 18:58:16 Reading Location: [place] [address] Cardiology MRI CALCIUM, [id number] 05:20:00 Test Item Value Reference Range Comments CALCIUM IONIZED (BEAKER) (test iwhg=547) 1.16 mmol/L 1.12-1.27 PH, BLOOD (BEAKER) (test ecjy=7513) 7.40 [id number] 04:29:00 Test Item Value Reference Range Comments PHOSPHORUS (BEAKER) (test nbph=817) 3.5 mg/dL 2.3-4.7 [id number] 04:29:00 Test Item Value Reference Range Comments MAGNESIUM (BEAKER) (test nijn=768) 2.4 mg/dL 1.6-2.6 COMPREHENSIVE METABOLIC [id number] 04:29:00 Test Item Value Reference Range Comments TOTAL PROTEIN (BEAKER) 6.8 gm/dL 6.0-8.3 (test hkyf=678) ALBUMIN (BEAKER) (test 3.6 g/dL 3.5-5.0 xjtx=1029) ALKALINE PHOSPHATASE 58 U/L 40-150 (BEAKER) (test qfgr=839) BILIRUBIN TOTAL (BEAKER) 0.6 mg/dL 0.2-1.2 (test dvsa=082) SODIUM (BEAKER) (test 140 meq/L 136-145 besf=062) POTASSIUM (BEAKER) (test 3.6 meq/L 3.5-5.1 ewyw=924) CHLORIDE (BEAKER) (test 105 meq/L 98-107 irxn=349) CO2 (BEAKER) (test 28 meq/L 22-29 vfly=318) BLOOD UREA NITROGEN 14 mg/dL 7-21 (BEAKER) (test awhw=162) CREATININE (BEAKER) (test 0.85 mg/dL 0.57-1.25 tpzx=643) GLUCOSE RANDOM (BEAKER) 83 mg/dL 70-105 (test dtmx=834) CALCIUM (BEAKER) (test 9.0 mg/dL 8.4-10.2 ttxo=133) AST (SGOT) (BEAKER) (test 68 U/L 5-34 fmum=141) ALT (SGPT) (BEAKER) (test 72 U/L 6-55 hend=450) EGFR (BEAKER) (test 92 mL/min/1.73 sq m ESTIMATED GFR IS NOT srsd=6407) ACCURATE CREATININE CLEARANCE IN PREDICTING GLOMERULAR FILTRATION RATE. ESTIMATED GFR IS NOT APPLICABLE FOR DIALYSIS PATIENTS. CBC W/PLT COUNT & AUTO [id number] 03:58:00 Test Item Value Reference Range Comments WHITE BLOOD CELL COUNT (BEAKER) (test hahu=012) 10.2 K/ L 3.5-10.5 RED BLOOD CELL COUNT (BEAKER) (test qyey=046) 4.49 M/ L 4.63-6.08 HEMOGLOBIN (BEAKER) (test ixso=244) 13.4 GM/DL 13.7-17.5 HEMATOCRIT (BEAKER) (test xeuu=387) 41.7 % 40.1-51.0 MEAN CORPUSCULAR VOLUME (BEAKER) (test wtta=382) 92.9 fL 79.0-92.2 MEAN CORPUSCULAR HEMOGLOBIN (BEAKER) (test 29.8 pg 25.7-32.2 feok=403) MEAN CORPUSCULAR HEMOGLOBIN CONC (BEAKER) (test 32.1 GM/DL 32.3-36.5 cseh=350) RED CELL DISTRIBUTION WIDTH (BEAKER) (test 13.7 % 11.6-14.4 ciig=880) PLATELET COUNT (BEAKER) (test dbzn=515) 192 K/CU MM 150-450 MEAN PLATELET VOLUME (BEAKER) (test tbxa=410) 10.7 fL 9.4-12.4 NUCLEATED RED BLOOD CELLS (BEAKER) (test 0 /100 WBC 0-0 rkam=176) NEUTROPHILS RELATIVE PERCENT (BEAKER) (test 53 % adil=024) LYMPHOCYTES RELATIVE PERCENT (BEAKER) (test 32 % wdsm=867) MONOCYTES RELATIVE PERCENT (BEAKER) (test 9 % vytc=361) EOSINOPHILS RELATIVE PERCENT (BEAKER) (test 5 % kmil=104) BASOPHILS RELATIVE PERCENT (BEAKER) (test 1 % zvev=372) NEUTROPHILS ABSOLUTE COUNT (BEAKER) (test 5.36 K/ L 1.78-5.38 vutw=909) LYMPHOCYTES ABSOLUTE COUNT (BEAKER) (test 3.23 K/ L 1.32-3.57 qkvq=561) MONOCYTES ABSOLUTE COUNT (BEAKER) (test 0.93 K/ L 0.30-0.82 gfzk=575) EOSINOPHILS ABSOLUTE COUNT (BEAKER) (test 0.54 K/ L 0.04-0.54 tvfh=519) BASOPHILS ABSOLUTE COUNT (BEAKER) (test 0.07 K/ L 0.01-0.08 romf=751) IMMATURE GRANULOCYTES-RELATIVE PERCENT (BEAKER) 0 % 0-1 (test etat=7242) U/S, RENAL, [id number] 13:00:00Reason for exam:->akiShould this be performed at [...] MDReport Verified Date/Time: 05/10/2018 13:00:32 Reading Location: [address] Ultrasound Reading Room CALCIUM, [id number] 06:58:00 Test Item Value Reference Range Comments CALCIUM IONIZED (BEAKER) (test mnnj=410) 1.08 mmol/L 1.12-1.27 PH, BLOOD (BEAKER) (test ffru=4943) 7.35 B-TYPE NATRIURETIC FACTOR (BNP)2018-05-10 05:49:00 Test Item Value Reference Range Comments B-TYPE NATRIURETIC PEPTIDE (BEAKER) (test 153 pg/mL 0-100 yrpn=014) [id number] 05:47:00 Test Item Value Reference Range Comments MAGNESIUM (BEAKER) (test 2.4 mg/dL 1.6-2.6 Specimen slightly hemolyzed ghyj=356) [id number] 05:47:00 Test Item Value Reference Range Comments PHOSPHORUS (BEAKER) (test 2.7 mg/dL 2.3-4.7 Specimen slightly hemolyzed jbsm=327) COMPREHENSIVE METABOLIC [id number] 05:47:00 Test Item Value Reference Range Comments TOTAL PROTEIN (BEAKER) 6.1 gm/dL 6.0-8.3 Specimen slightly (test qsdv=672) hemolyzed ALBUMIN (BEAKER) (test 3.2 g/dL 3.5-5.0 Specimen slightly jzom=0198) hemolyzed ALKALINE PHOSPHATASE 48 U/L 40-150 (BEAKER) (test lehc=636) BILIRUBIN TOTAL (BEAKER) 0.8 mg/dL 0.2-1.2 Specimen slightly (test slax=969) hemolyzed SODIUM (BEAKER) (test 140 meq/L 136-145 yvzj=959) POTASSIUM (BEAKER) (test 4.1 meq/L 3.5-5.1 Specimen slightly unkf=385) hemolyzed CHLORIDE (BEAKER) (test 109 meq/L 98-107 bccm=337) CO2 (BEAKER) (test 23 meq/L 22-29 xcgz=029) BLOOD UREA NITROGEN 24 mg/dL 7-21 (BEAKER) (test fjik=443) CREATININE (BEAKER) (test 0.88 mg/dL 0.57-1.25 Specimen slightly fysr=645) hemolyzed GLUCOSE RANDOM (BEAKER) 88 mg/dL 70-105 (test hhjv=692) CALCIUM (BEAKER) (test 8.3 mg/dL 8.4-10.2 xzli=537) AST (SGOT) (BEAKER) (test 51 U/L 5-34 Specimen slightly yfoq=462) hemolyzed ALT (SGPT) (BEAKER) (test 74 U/L 6-55 Specimen slightly mjjj=147) hemolyzed EGFR (BEAKER) (test 89 mL/min/1.73 sq m ESTIMATED GFR IS NOT ehid=0704) ACCURATE CREATININE CLEARANCE IN PREDICTING GLOMERULAR FILTRATION RATE. ESTIMATED GFR IS NOT APPLICABLE FOR DIALYSIS PATIENTS. CBC W/PLT COUNT & AUTO [id number] 05:31:00 Test Item Value Reference Range Comments WHITE BLOOD CELL COUNT (BEAKER) (test kzuw=779) 13.0 K/ L 3.5-10.5 RED BLOOD CELL COUNT (BEAKER) (test hflf=218) 4.32 M/ L 4.63-6.08 HEMOGLOBIN (BEAKER) (test ogyt=558) 13.0 GM/DL 13.7-17.5 HEMATOCRIT (BEAKER) (test yjyc=392) 40.5 % 40.1-51.0 MEAN CORPUSCULAR VOLUME (BEAKER) (test wkso=281) 93.8 fL 79.0-92.2 MEAN CORPUSCULAR HEMOGLOBIN (BEAKER) (test 30.1 pg 25.7-32.2 iibc=280) MEAN CORPUSCULAR HEMOGLOBIN CONC (BEAKER) (test 32.1 GM/DL 32.3-36.5 ufzq=444) RED CELL DISTRIBUTION WIDTH (BEAKER) (test 13.9 % 11.6-14.4 laqr=628) PLATELET COUNT (BEAKER) (test slhr=983) 215 K/CU MM 150-450 MEAN PLATELET VOLUME (BEAKER) (test ouji=972) 11.2 fL 9.4-12.4 NUCLEATED RED BLOOD CELLS (BEAKER) (test 0 /100 WBC 0-0 mvrg=266) NEUTROPHILS RELATIVE PERCENT (BEAKER) (test 56 % uncf=928) LYMPHOCYTES RELATIVE PERCENT (BEAKER) (test 32 % cwcb=488) MONOCYTES RELATIVE PERCENT (BEAKER) (test 9 % knpb=036) EOSINOPHILS RELATIVE PERCENT (BEAKER) (test 2 % nysc=674) BASOPHILS RELATIVE PERCENT (BEAKER) (test 1 % hucb=259) NEUTROPHILS ABSOLUTE COUNT (BEAKER) (test 7.24 K/ L 1.78-5.38 fgnv=461) LYMPHOCYTES ABSOLUTE COUNT (BEAKER) (test 4.17 K/ L 1.32-3.57 rsoz=787) MONOCYTES ABSOLUTE COUNT (BEAKER) (test 1.12 K/ L 0.30-0.82 ybaj=123) EOSINOPHILS ABSOLUTE COUNT (BEAKER) (test 0.30 K/ L 0.04-0.54 dyts=328) BASOPHILS ABSOLUTE COUNT (BEAKER) (test 0.07 K/ L 0.01-0.08 eygf=658) IMMATURE GRANULOCYTES-RELATIVE PERCENT (BEAKER) 1 % 0-1 (test qrsm=5301) EOSINOPHIL SMEAR, [id number] 22:19:00 Test Item Value Reference Range Comments EOSINOPHIL SMEAR, URINE (BEAKER) (test No EOS seen No EOS seen ykgb=3580) URINALYSIS W/ [id number] 22:13:00 Test Item Value Reference Range Comments COLOR (BEAKER) (test elje=495) Yellow CLARITY (BEAKER) (test djkc=456) Clear SPECIFIC GRAVITY UA (BEAKER) (test iite=718) 1.025 1.001-1.035 PH UA (BEAKER) (test xzvv=103) 5.5 5.0-8.0 PROTEIN UA (BEAKER) (test cxrn=882) 20 mg/dL Negative GLUCOSE UA (BEAKER) (test spvi=000) 70 mg/dL Negative KETONES UA (BEAKER) (test hdjc=383) Negative Negative BILIRUBIN UA (BEAKER) (test ryqq=189) Negative Negative BLOOD UA (BEAKER) (test sruk=396) Negative Negative NITRITE UA (BEAKER) (test qles=594) Negative Negative LEUKOCYTE ESTERASE UA (BEAKER) (test voxi=438) Negative Negative UROBILINOGEN UA (BEAKER) (test ughr=297) 3.0 mg/dL 0.2-1.0 RBC UA (BEAKER) (test dheh=444) 0 /HPF WBC UA (BEAKER) (test tidk=262) 2 /HPF BACTERIA (BEAKER) (test zkhf=151) Rare MUCUS (BEAKER) (test jypn=5022) Few SQUAMOUS EPITHELIAL (BEAKER) (test bktx=301) 1 /HPF SOURCE(BEAKER) (test loyc=2952) SODIUM, RANDOM [id number] 21:38:00 Test Item Value Reference Range Comments SODIUM URINE (BEAKER) (test vzfw=753) < meq/L Reference Range: No NormalsPROTEIN, RANDOM [id number] 21:38:00 Test Item Value Reference Range Comments PROTEIN, URINE (BEAKER) (test vsxn=8690) 15 mg/dL 0-14 CREATININE, RANDOM [id number] 21:38:00 Test Item Value Reference Range Comments CREATININE URINE (BEAKER) (test zpuq=496) 173.4 mg/dL Reference Range: No NormalsRAD, FOOT, 2 VIEWS, [id number] 13:59:00Reason for exam:->Pain and swelling of left foot after fall.FINAL REPORT Two views left foot Discussion: There is hallux valgus with degenerative changes. No visible acute fracture, dislocation, destructive lesion. Soft tissues are unremarkable. Signed: Darren Ariza MDReport Verified Date/Time: 05/09/2018 13:59:01 Reading Location: [address] Consult Reading Room PUL PERF IMAGING, PARTIC, [id number] 12:03:00FINAL REPORT PROCEDURE: V/Q LUNG SCAN CPT CODE: 70833 INDICATION: Acute chest pain, PE suspected, dyspnea, [...] Pimentel Verified Date/Time: 05/09/2018 12: 03:05 ReadingLocation: [facility] [address] [facility] Reading Room FL, ESOPH, SWALLOW FUNCTION, WITH CINE OR [id number] 11:00:00Reason for exam:-& gt;chest painFINAL REPORT Esophagram [...] Verified Date/Time: 05/09/2018 11:00:37 Reading Location : [facility] [address] [facility] Reading Room HEMOGLOBIN [id number] 10:45:00 Test Item Value Reference Range Comments HEMOGLOBIN A1C (BEAKER) (test vazh=090) 6.3 % 4.3-6.1 BASIC METABOLIC [id number] 08:43:00 Test Item Value Reference Range Comments SODIUM (BEAKER) (test 138 meq/L 136-145 qbip=352) POTASSIUM (BEAKER) (test 3.8 meq/L 3.5-5.1 Specimen slightly aihy=087) hemolyzed CHLORIDE (BEAKER) (test 104 meq/L 98-107 rcxr=256) CO2 (BEAKER) (test 24 meq/L 22-29 xwrp=268) BLOOD UREA NITROGEN 35 mg/dL 7-21 (BEAKER) (test dvpc=274) CREATININE (BEAKER) (test 1.39 mg/dL 0.57-1.25 Specimen slightly hvwk=216) hemolyzed GLUCOSE RANDOM (BEAKER) 124 mg/dL 70-105 (test fjsj=087) CALCIUM (BEAKER) (test 9.2 mg/dL 8.4-10.2 ucqu=419) EGFR (BEAKER) (test 52 mL/min/1.73 sq m ESTIMATED GFR IS NOT rmyu=3123) ACCURATE CREATININE CLEARANCE IN PREDICTING GLOMERULAR FILTRATION RATE. ESTIMATED GFR IS NOT APPLICABLE FOR DIALYSIS PATIENTS. Re-draw per labLIPID [id number] 08:42:00 Test Item Value Reference Range Comments TRIGLYCERIDES (BEAKER) (test 161 mg/dL Specimen slightly hemolyzed lrgc=429) CHOLESTEROL (BEAKER) (test 111 mg/dL Specimen slightly hemolyzed mnzr=824) HDL CHOLESTEROL (BEAKER) (test 39 mg/dL qinx=803) LDL CHOLESTEROL CALCULATED 40 mg/dL (BEAKER) (test apbq=214) Triglyceride Reference Range: Low Risk <150 Borderline 150- 199 High Risk 200-499 Very High Risk >=500Cholesterol Reference Range: Low Risk <200 Borderline 200-239 High Risk > 240HDL Cholesterol Reference Range: Low Risk >=60 High Risk <40LDL Cholesterol Reference Range: Optimal <100 Near Optimal 100-129 Borderline 130-159 High 160-189 Very High >=190LITHIUM [id number] 08:31:00 Test Item Value Reference Range Comments LITHIUM LEVEL (BEAKER) (test smqz=313) 0.4 mmol/L 0.8-1.2 RAPID DRUG SCREEN, [id number] 07:54:00 Test Item Value Reference Range Comments BARBITURATE URINE (BEAKER) (test zhga=746) Negative Negative BENZODIAZEPINE SCREEN URINE (BEAKER) (test Positive Negative unkg=016) COCAINE (METAB.) SCREEN (BEAKER) (test zryt=8510) Negative Negative METHADONE SCREEN (BEAKER) (test grpl=3948) Negative Negative OPIATE SCREEN URINE (BEAKER) (test vgna=437) Positive Negative CANNABINOID SCREEN URINE (BEAKER) (test emkh=239) Negative Negative AMPH/METHAMPH SCREEN (BEAKER) (test msjd=6217) Negative Negative PHENCYCLIDINE SCREEN URINE (BEAKER) (test klip=313) Negative Negative OXYCODONE SCREEN URINE (BEAKER) (test tgfn=5815) Negative Negative DRUG CUTOFF CONC.Cocaine 300 ng/mL Cannabinoid 50 ng/mL Benzodiazepine 200 ng/mLBarbiturate 200 ng/ mLPhencyclidine 25 ng/mLOpiate 300 ng/mLMethadone 300 ng/mLAmphetamine/ 1000 ng/mL MethamphetamineOxycodone 300 ng/mLThis assay provides an unconfirmed qualitative test result for the clinical management of patients in emergency situations. Chain of custody not maintained. Some visf-dnv-nlqujda medications, as well as adulterants, may cause inaccurate results. Clinical correlation should be applied. A more comprehensive drug screen or confirmation of a detected drug may be performed upon request.CREATINE KINASE (CK), TOTAL AND [id number] 07:47:00 Test Item Value Reference Range Comments CREATINE KINASE TOTAL (BEAKER) (test xeqv=310) 161 U/L 29-200 CREATINE KINASE-MB (BEAKER) (test xaxu=137) 4.9 ng/mL 0.0-6.6 CREATINE KINASE-MB INDEX (BEAKER) (test wghi=099) 3.0 % CK-MB Reference Range:<6.7 Normal6.7-10.0 Borderline>10.0 AbnormalTROPONIN [id number] 07:47:00 Test Item Value Reference Range Comments TROPONIN I (BEAKER) (test vvio=489) 0.04 ng/mL 0.00-0.03 Troponin I (TnI) levels [...] acute neurological disease, and persistent tachyarrhythmia.BASIC METABOLIC [id number] 04:56:00 Test Item Value Reference Range Comments SODIUM (BEAKER) (test 139 meq/L 136-145 ldwb=843) POTASSIUM (BEAKER) (test 3.4 meq/L 3.5-5.1 powb=297) CHLORIDE (BEAKER) (test 105 meq/L 98-107 kqdn=888) CO2 (BEAKER) (test 25 meq/L 22-29 zzww=347) BLOOD UREA NITROGEN 38 mg/dL 7-21 (BEAKER) (test qflc=507) CREATININE (BEAKER) (test 1.35 mg/dL 0.57-1.25 oxhm=814) GLUCOSE RANDOM (BEAKER) 140 mg/dL 70-105 (test oqcs=010) CALCIUM (BEAKER) (test 8.9 mg/dL 8.4-10.2 qmal=628) EGFR (BEAKER) (test 54 mL/min/1.73 sq m ESTIMATED GFR IS NOT glkw=5041) ACCURATE CREATININE CLEARANCE IN PREDICTING GLOMERULAR FILTRATION RATE. ESTIMATED GFR IS NOT APPLICABLE FOR DIALYSIS PATIENTS. CBC (HEMOGRAM ONLY)2018-05-09 04:38:00 Test Item Value Reference Range Comments WHITE BLOOD CELL COUNT (BEAKER) (test vbgt=137) 15.8 K/ L 3.5-10.5 RED BLOOD CELL COUNT (BEAKER) (test ggyh=552) 4.80 M/ L 4.63-6.08 HEMOGLOBIN (BEAKER) (test juud=246) 14.5 GM/DL 13.7-17.5 HEMATOCRIT (BEAKER) (test mpmp=341) 44.0 % 40.1-51.0 MEAN CORPUSCULAR VOLUME (BEAKER) (test icqv=955) 91.7 fL 79.0-92.2 MEAN CORPUSCULAR HEMOGLOBIN (BEAKER) (test 30.2 pg 25.7-32.2 lumu=664) MEAN CORPUSCULAR HEMOGLOBIN CONC (BEAKER) (test 33.0 GM/DL 32.3-36.5 tzfr=399) RED CELL DISTRIBUTION WIDTH (BEAKER) (test 14.2 % 11.6-14.4 drjm=812) PLATELET COUNT (BEAKER) (test vnvh=911) 238 K/CU MM 150-450 MEAN PLATELET VOLUME (BEAKER) (test uemu=055) 11.5 fL 9.4-12.4 NUCLEATED RED BLOOD CELLS (BEAKER) (test 0 /100 WBC 0-0 upqc=435) CT, BRAIN, WITHOUT [id number] 21:00:00FINAL REPORT CT, BRAIN, WITHOUT CONTRAST INDICATION: [...] Verified Date/ Time: 05/08/2018 21:00:20 Reading Location: [address] Reading Room B- TYPE NATRIURETIC FACTOR (BNP)2018-05-08 19:03:00 Test Item Value Reference Range Comments B-TYPE NATRIURETIC PEPTIDE (BEAKER) (test 254 pg/mL 0-100 ulqp=021) CREATINE KINASE (CK), TOTAL AND [id number] 19:02:00 Test Item Value Reference Range Comments CREATINE KINASE TOTAL (BEAKER) (test xwvj=730) 150 U/L 29-200 CREATINE KINASE-MB (BEAKER) (test keza=910) 5.5 ng/mL 0.0-6.6 CREATINE KINASE-MB INDEX (BEAKER) (test yddx=186) 3.7 % CK-MB Reference Range:<6.7 Normal6.7-10.0 Borderline>10.0 AbnormalTROPONIN [id number] 19:02:00 Test Item Value Reference Range Comments TROPONIN I (BEAKER) (test ubie=305) 0.06 ng/mL 0.00-0.03 Troponin I (TnI) levels [...] acute neurological disease, and persistent tachyarrhythmia.BASIC METABOLIC [id number] 18:32:00 Test Item Value Reference Range Comments SODIUM (BEAKER) (test 137 meq/L 136-145 alhq=828) POTASSIUM (BEAKER) (test 3.9 meq/L 3.5-5.1 lrup=536) CHLORIDE (BEAKER) (test 102 meq/L 98-107 jxev=409) CO2 (BEAKER) (test 24 meq/L 22-29 bdap=012) BLOOD UREA NITROGEN 35 mg/dL 7-21 (BEAKER) (test ykvq=571) CREATININE (BEAKER) (test 1.56 mg/dL 0.57-1.25 nydk=413) GLUCOSE RANDOM (BEAKER) 119 mg/dL 70-105 (test eywx=880) CALCIUM (BEAKER) (test 9.3 mg/dL 8.4-10.2 hksn=190) EGFR (BEAKER) (test 46 mL/min/1.73 sq m ESTIMATED GFR IS NOT votk=5035) ACCURATE CREATININE CLEARANCE IN PREDICTING GLOMERULAR FILTRATION RATE. ESTIMATED GFR IS NOT APPLICABLE FOR DIALYSIS PATIENTS. CBC W/PLT COUNT & AUTO [id number] 18:28:00 Test Item Value Reference Range Comments WHITE BLOOD CELL COUNT (BEAKER) (test nibm=715) 17.1 K/ L 3.5-10.5 RED BLOOD CELL COUNT (BEAKER) (test ifml=587) 5.16 M/ L 4.63-6.08 HEMOGLOBIN (BEAKER) (test rulj=138) 15.5 GM/DL 13.7-17.5 HEMATOCRIT (BEAKER) (test nbrm=308) 47.6 % 40.1-51.0 MEAN CORPUSCULAR VOLUME (BEAKER) (test qieh=360) 92.2 fL 79.0-92.2 MEAN CORPUSCULAR HEMOGLOBIN (BEAKER) (test 30.0 pg 25.7-32.2 pffj=616) MEAN CORPUSCULAR HEMOGLOBIN CONC (BEAKER) (test 32.6 GM/DL 32.3-36.5 yqen=843) RED CELL DISTRIBUTION WIDTH (BEAKER) (test 14.0 % 11.6-14.4 hqgw=298) PLATELET COUNT (BEAKER) (test tbiq=913) 297 K/CU MM 150-450 MEAN PLATELET VOLUME (BEAKER) (test hodo=074) 11.3 fL 9.4-12.4 NUCLEATED RED BLOOD CELLS (BEAKER) (test 0 /100 WBC 0-0 putt=181) NEUTROPHILS RELATIVE PERCENT (BEAKER) (test 78 % qiwo=657) LYMPHOCYTES RELATIVE PERCENT (BEAKER) (test 14 % wkgf=990) MONOCYTES RELATIVE PERCENT (BEAKER) (test 7 % gyxb=681) EOSINOPHILS RELATIVE PERCENT (BEAKER) (test 0 % mayc=630) BASOPHILS RELATIVE PERCENT (BEAKER) (test 0 % lube=629) NEUTROPHILS ABSOLUTE COUNT (BEAKER) (test 13.35 K/ L 1.78-5.38 dkii=351) LYMPHOCYTES ABSOLUTE COUNT (BEAKER) (test 2.35 K/ L 1.32-3.57 jbrr=571) MONOCYTES ABSOLUTE COUNT (BEAKER) (test 1.23 K/ L 0.30-0.82 xjdl=502) EOSINOPHILS ABSOLUTE COUNT (BEAKER) (test 0.00 K/ L 0.04-0.54 uqum=693) BASOPHILS ABSOLUTE COUNT (BEAKER) (test 0.05 K/ L 0.01-0.08 hcpx=432) IMMATURE GRANULOCYTES-RELATIVE PERCENT (BEAKER) 1 % 0-1 (test ierv=5039) [id number] 18:15:00 Test Item Value Reference Range Comments PARTIAL THROMBOPLASTIN TIME (BEAKER) (test 30.0 seconds 22.5-36.0 jbro=654) Prior to initiating heparinXR Fluoroscopy in Imaging per [id number] 12:25: 17Patient: ALHAJI FARAH Date/Time04/05/2018 11:30 CDTReason [...]
--- OUTSIDE RECORDS SUMMARY | 2019-06-09 06:17 | XMS REPORT ---
[...] Dosage System Date Date Clonidine HCl ND 35133220695 0.3 MG Orally Inactive 1 tablet Twice a day Amiodarone HCl ND 68673590957 200 MG Orally Active 1 tablet Once a day Lisinopril ND 12670806972 40 MG Orally Active 1 tablet Once a day Clonidine HCl [facility] 74305085468 0.1 MG Orally April 20, Active 2 tablet twice 2017 twice x 1 week then 1 tablet twice a day for 1 week. Memantine HCl [facility] 61185598444 10 MG Orally Active 1 tablet Twice a day [place] [facility] 71169532722 10-325 MG Active 1 tablet Orally every 6 as needed hrs Lipitor [facility] 88139895736 40 MG Orally Active 1 tablet Once a day Coreg [facility] 61227702650 12.5 MG Orally Active 2 tabs bid Linzess [facility] 03325594680 145 MCG Orally April 20Jun Active 1 capsule Once a day 2017 Amitriptyline [facility] 45485875596 50 MG Orally Active 1 tablet HCl Once a day Dulera [facility] 71364156371 100-5 MCG/ACT Active 2 puffs Inhalation Twice a day Results No Known Results Summary Purpose eClinicalWorks Submission
--- OUTSIDE RECORDS SUMMARY | 2019-06-09 06:17 | XMS REPORT | Continuity of Care Document ---
:1960 Author Organization [facility] Care Team Providers Name Role Phone [facility] Unavailable Unavailable Problems Problem Status Onset Classification Date Comments [...] [place] Acute Active Finding 11/24/[address] [facility] cholecystitis [facility] [place] Medications Medication Details Route Status Patient Ordering Order Source Instructions Provider Date Clonidine Hcl TWICE Active [facility] DAILY 2018 [facility] [place] Carvedilol TWICE Active [facility] DAILY 0600 2018 [facility] - AND [...] [facility] [place] Amiodarone Hcl DAILY Active [facility] 2018 [facility] [place] Aspirin DAILY [facility] 2018 [facility] [place] Simvastatin DAILY Active [facility] 2018 [facility] [place] Amlodipine TWICE Active [facility] DAILY 2017 [facility] [place] Furosemide DAILY Active I[facility] St[facility] 2017 [facility] [place] Budesonide/Formoterol TWICE Active St. Fumarate DAILY 2017 [facility] [place] Amlodipine DAILY Active [facility] St[facility] 2017 [facility] [place] Clonidine Hcl TWICE Active [facility] St[facility] DAILY 2017 [facility] [place] Lisinopril TWICE Active [facility] DAILY 2016 [facility] [place] Albuterol Sulfate THREE Active [facility] TIMES A 2016 [facility] DAY PRN [place] For Shortness Of Breath Hydrochlorothiazide DAILY Active St[facility] 2016 [facility] [place] Lisinopril DAILY Active St[facility] 2016 [facility] [place] Codeine/Apap EVERY 4 Active 10/12/ [facility] HOURS 2016 [facility] NEEDED PRN [place] For Pain Amiodarone Hcl TWICE Active 05/13/ [facility] DAILY 2016 [facility] [place] Nifedipine Xl DAILY Active 10/31/ [facility] 2016 [facility] [place] Ciprofloxacin Hcl TWICE Inactive Ibrahim 12/07/ [facility] DAILY 2015 [facility] [place] Simvastatin AT BEDTIME Active [facility] 2015 [facility] [place] Aspirin Tab DAILY Active Anders 04/11/ [facility] 2014 [facility] [place] Amitriptyline AT BEDTIME Active [facility] 04/11/ [facility] PRN For 2014 [facility] Insomnia [place] Lisinopril TWICE Active [place] 04/11/ [facility] DAILY 2014 [facility] [place] Hydrocodone EVERY [address] Bit/Acetaminophen HOURS 2012 [facility] NEEDED PRN [place] For Pain Amlodipine DAILY Active [facility] St[facility] 2013 [facility] [place] Allergies, Adverse Reactions, Alerts Substance Category Reaction Severity Reaction Status Date Comments Source type Reported Penicillins Hives/[place] Moderate Allergy to Active [facility] Substance 6 [facility] [place] codeine Itching Allergy to Active [facility] St[facility] Substance 6 [facility] [place] Immunizations No Data Provided for This Section Results Order Name Results Value Reference Date Interpretation Comments Source Range Laboratory Segmented 82 40 - 80 11/[address] [facility] [address] Studies Neutrophils /2017 [facility] [place] Laboratory Monocytes 3 0 - 10 11/[address] [facility] [address] Studies /2018 [facility] [place] Laboratory Lymphocytes 13 15 - 42 11/[address] [facility] [address] Studies /2018 [facility] [place] Laboratory Giant Giant 11/[address] [facility] [address] Studies Platelets Platelets /2017 [facility] [place] Laboratory Blood Blood 11/[address] [facility] [address] Studies Morphology Morphology /2017 [facility] Comment Comment [place] Laboratory Atypical 2 11/[address] [facility] [address] Studies Lymphocytes /2017 [facility] [place] Laboratory Total 0.4 0.3 - 1.2 11/24 St[facility] Studies Bilirubin /2017 [facility] [place] Laboratory Sodium Level 136 135 - 145 11/24 St[facility] Studies /2017 [facility] [place] Laboratory Serum Total 6.8 6.0 - 8.3 11/24 [facility] Studies Protein /2017 [facility] [place] Laboratory Potassium 3.8 3.6 - 5.0 11/24 [facility]. Studies Level /2017 [facility] [place] Laboratory Magnesium 2.6 1.8 - 2.5 11/24 [facility]. Studies Level /2017 [facility] [place] Laboratory Glucose Level 180 65 - 120 11/24 [facility]. Studies /2017 [facility] [place] Laboratory Globulin 3.2 2.3 - 3.5 11/24 [facility]. Studies /2018 [facility] [place] Laboratory Estimat 42 90 11/24 [facility] Studies Glomerular /2017 [facility] Filtration [place] Rate Laboratory Creatinine 1.67 0.61 - 11/24 [facility] Studies 1.24 /2017 [facility] [place] Laboratory Chloride 103 101 - 111 11/24 [facility] Studies Level /2017 [facility] [place] Laboratory Carbon 25 - 11/24 [facility] Studies Dioxide Level /2017 [facility] [place] Laboratory Calcium Level 9.1 8.5 - 10.5 11/24 [facility]. Studies /2017 [facility] [place] Laboratory Blood Urea 54 6 - 20 11/24 [facility] Studies Nitrogen /2017 [facility] [place] Laboratory Aspartate 43 10 - 42 11/24 [facility] Studies Amino Transf /2017 [facility] (AST/SGOT) [place] Laboratory Alkaline 23 42 - 121 11/24 [facility] Studies Phosphatase /2017 [facility] [place] Laboratory Albumin/Globu 1.1 1.1 - 1.8 11/24 [facility] Studies patel Ratio /2017 [facility] [place] Laboratory Albumin 3.6 3.2 - 5.5 11/24 [facility]. Studies /2018 [facility] [place] Laboratory Alanine 38 10 - 60 11/24 [facility] Studies Aminotransfer /2017 [facility] ase [place] (ALT/SGPT) Laboratory White Blood 19.3 4.3 - 10.9 11/24 [facility] Studies Count /2017 [facility] [place] Laboratory Red Cell 14.4 12.1 - 11/24 [facility] Studies Distribution 15.2 /2017 [facility] Width [place] Laboratory Red Blood 4.53 4.33 - 11/24 [facility] Studies Count 5.43 /2017 [facility] [place] Laboratory Platelet 273 152 - 406 11/[address] [facility] [address] Studies Count /2017 [facility] [place] Laboratory Neutrophils % 85.5 41.7 - 11/[address] [facility] [address] Studies 73.7 /2017 [facility] [place] Laboratory Monocytes % 4.6 3.3 - 12.3 11/[address] [facility] [address] Studies [facility] [place] Laboratory Mean Platelet 10.7 7.6 - 11.3 11/[address] [facility] [address] Studies Volume /2017 [facility] [place] Laboratory Mean 89.0 80 - 100 11/24 [facility]. Studies Corpuscular /2017 [facility] Volume [place] Laboratory Mean 32.9 32.0 - 11/24 [facility]. Studies Corpuscular 36.0 [facility] Hemoglobin [place] [facility]cent Laboratory Mean 29.3 27.0 - 11/24 [facility]. Studies Corpuscular 35.0 [facility] Hemoglobin [place] Laboratory Lymphocytes % 9.6 15.3 - 11/[address] [facility] [address] Studies 44.8 [facility] [place] Laboratory Hemoglobin 13.3 13.6 - 11/[address] [facility] [address] Studies 17.9 [facility] [place] Laboratory Hematocrit 40.3 39.6 - 11/[address] [facility] [address] Studies 49.0 [facility] [place] Laboratory Eosinophils % 0.0 0 - 4.4 11/[address] [facility] [address] Studies [facility] [place] Laboratory Basophils % 0.3 0 - 1.3 11/[address] [facility] [address] Studies [facility] [place] Laboratory Absolute 16.5 1.8 - 8.0 11/[address] [facility] [address] Studies Neutrophil [facility] [place] Laboratory Absolute 0.9 0.1 - 1.3 11/24 [facility]. Studies Monocytes [facility] (CBC) [place] Laboratory Absolute 1.9 0.7 - 4.9 11/24 [facility]. Studies Lymphocytes [facility] (CBC) [place] Laboratory Absolute 0.0 0 - 0.5 11/24 [facility]. Studies Eosinophils [facility] (CBC) [place] Laboratory Absolute 0.1 0 - 0.5 11/[address] [facility] [address] Studies Basophils [facility] (CBC) [place] Laboratory Troponin I 0.03 11/[address] [facility] [address] Studies [facility] [place] Laboratory Creatine 4.5 0.3 - 4.0 11/22 [facility] Studies Kinase MB /2017 [facility] [place] Laboratory Creatine 256 22 - 269 11/22 [facility] Studies Kinase /2017 [facility] [place] Laboratory Urine pH 7.0 11/21 [facility]. Studies /2017 [facility] [place] Laboratory Urine 0.2 11/21 [facility] Studies Urobilinogen /2017 [facility] [place] Laboratory Urine Total Urine Total 11/21 [facility] Studies Protein Protein /2017 [facility] [place] Laboratory Urine Urine 11/21 [facility] Studies Specific Specific /2017 [facility] [place] Laboratory Urine Nitrite Urine 11/21 [facility] Studies Nitrite [facility] [place] Laboratory Urine Urine 11/21 [facility] Studies Leukocyte Leukocyte /2017 [facility] Esterase Esterase [place] Laboratory Urine Ketones Urine 11/21 [facility] Studies Ketones [facility] [place] Laboratory Urine Glucose Urine 11/21 [facility] Studies Glucose [facility] [place] Laboratory Urine Color Urine Color 11/21 [facility]. Studies [facility] [place] Laboratory Urine Blood Urine Blood 11/21 [facility]. Studies /2017 [facility] [place] Laboratory Urine Urine 11/21 [facility] Studies Bilirubin Bilirubin [facility] [place] Laboratory Urine Urine 11/21 [facility] Studies Appearance Appearance /2017 [facility] [place] Laboratory Procalcitonin 4.08 11/21 [facility]. Studies [facility] [place] Laboratory Lactic Acid 13.2 4.5 - 19.8 11/21 [facility]. Studies Level /2017 [facility] [place] Laboratory B-Type 86 11/21 [facility] Studies Natriuretic [facility] Peptide [place] Laboratory Direct 0.2 0 - 0.2 11/21 [facility] Studies Bilirubin [facility] [place] Laboratory Rapid 0.03 11/21 [facility] Studies Troponin I /2017 [facility] [place] Laboratory Lipase 36 22 - 51 11/21 [facility] Studies [facility] [place] Laboratory Prothrombin 13.1 9.5 - 12.5 11/21 [facility] Studies Time /2017 [facility] [place] Laboratory INR 1.11 11/21 [facility] Studies International /2017 [facility] Normalized [place] Ratio Laboratory Activated 30.7 24.3 - 11/[address] [facility] [address] Studies Partial 36.9 [facility] Thromboplast [place] Time Pathology Reports No Data Provided for This Section Diagnostic Reports No Data Provided for This Section Consultation Notes No Data Provided for This Section Discharge Summaries No Data Provided for This Section History and Physicals No Data Provided for This Section Vital Signs Vital Sign Value Date Comments Source Heart Rate 66 11/24/[address] [facility] [address] [facility] [place] Systolic (mm Hg) 153 11/24/[address] [facility] [place] Diastolic (mm Hg) 86 11/24/[address] [facility] [place] Temperature Oral (F) 98.2 F 11/24/[address] [facility] [address] [facility] [place] Respitory Rate 16 11/24/[address] [facility] [place] Height 69 11/21/[address] [facility] [address] [facility] [place] Weight 168.50 11/21/[address] [facility] [address] [facility] [place] Encounters Location Location Encounter Encounter Reason Attending ADM DC Status Source Details Type Number For Provider Date Date Visit [facility] St[facility] Discharged [id number] 11/21 11/[address] [facility] 59 /2017 [facility] [place] Procedures Procedure Code Date Perfomer Comments Source Chest Pa And Lat [id number] 11/22/[address] [facility] [address] [facility] - (2 Views) [place] Anaerobic Blood [id number] 11/21/[address] [facility] [address] [facility] - Culture [place] Aerobic Blood 103160974 11/21/[address] [facility] [address] [place] - Culture [place] Chest Abdomen [id number] 11/21/[address] [facility] [address] [place] - Pelvis W Cont [place] Chest Single [id number] 11/21/[address] [facility] [address] [place] - View [place] Assessment and Plan No Data Provided for This Section Plan of Care Plan of Care Date Source Instructions 11/24/[address] [facility] [place] DI for Cholecystitis Instructions 11/24/[address] [facility] [place] DI for Cholecystitis Social History Social History Date Source Query Response Date Recorded Comment 10/25/[address] [facility] [address] [facility] [place] Alcohol Use? No November 21, 2017 8:00pm CD- Drugs? No November 21, 2017 8:00pm Query Response Start Date Stop Date Smoking Status Heavy Tobacco smoker (>10 cigarettes/day) October 25, 1969 Family History Value Date Source Query Response Instance Date Recorded Comment 11/24/2017 STEVE Gates Medical History Cancer Mother November 21, 2017 8:00pm Medical History Heart disease Cancer Father November 21, 2017 8:00pm Medical History Heart disease Cancer December 01, 2014 8:31pm Advance Directives Order Name Results Value Date Source Advance Directives Advance Directives Advance Directive Response Recorded Date/Time 11/24/2017 STEVE Silva - Does Patient Have Living Will Marielle No November 24, 2017 6:00am Durable Power of Medicinal Chemist for Health Care No November 21, 2017 8:00pm Would you like additional information No November 21, 2017 8:00pm Functional Status No Data Provided for This Section
--- OUTSIDE RECORDS SUMMARY | 2019-06-09 06:18 | XMS REPORT ---
[...] Problem Atherosclerotic heart disease of I25.10 Active [place] coronary artery without angina pectoris Problem Symptomatic [...] Status Dosage System Date Date Amitriptyline HCl [facility] 57219855218 50 MG Orally Active 1 tablet Once a day Results No Known Results Summary Purpose eClinicalWorks Submission
--- OUTSIDE RECORDS SUMMARY | 2019-06-09 06:18 | XMS REPORT ---
:1960 Author Organization eClinicalWorks Care Team Providers Name Role Phone Heard, Na Provider Role Unavailable Allergies, Adverse Reactions, Alerts Substance Reaction Event Type penicillin rash Drug Allergy Cephalosporins vomiting Non Drug Allergy Problems Problem Type Condition Code [...] Problem Atherosclerotic heart disease of I25.10 Active [place] coronary artery without angina pectoris Problem Abdominal [...] Atrial fibrillation, unspecified I48.91 Active type Problem Moderately severe major depression F32.2 Active Problem Left foot pain M79.672 Active Problem Chronic hepatitis C without B18.2 Active hepatic coma Problem Simple chronic bronchitis J41.0 Active Problem Complaints of memory disturbance R41.3 Active Problem Cirrhosis of liver without K74.60 Active ascites, unspecified hepatic cirrhosis type Problem Chest pain, unspecified type R07.9 Active Problem Arteriosclerotic cardiovascular I25.10 Active disease (ASCVD) Problem Dementia without behavioral F03.90 Active disturbance, unspecified dementia type Problem Hypertensive emergency I16.1 Active Problem History of coronary artery disease Z86.79 Active Problem Constipation, unspecified K59.00 Active constipation type Problem Lumbar degenerative disc disease M51.36 Active Problem Cigarette nicotine dependence F17.210 Active without complication Problem Elevated blood pressure reading R03.0 Active Medications Medication Code System Code Instructions Start Date End Date Status Dosage Bactrim [facility] 68554530778 400-80 MG Orally April 26, May 06, Active 1 tablet Twice a day 2018 2018 Results No Known Results Summary Purpose eClinicalWorks Submission
--- OUTSIDE RECORDS SUMMARY | 2019-06-09 06:18 | XMS REPORT ---
[...] Assessment Atherosclerotic heart disease of I25.10 Active [place] coronary artery without angina pectoris Problem Chronic [...] Problem Atherosclerotic heart disease of I25.10 Active [place] coronary artery without angina pectoris Problem Symptomatic [...] Start End Status Dosage System Date Date [place] NDC 58455580328 600 MG Orally Active 1 capsule Carbonate Once a day at bedtime Amlodipine [facility] 84828560320 10 MG Orally Aug 22, Active 1 tablet Besylate Once a day 2017 Amiodarone HCl [facility] 69875932488 200 MG Orally Active 1 tablet Once a day [place] [facility] 55573718729 10-325 MG Active 1 tablet as Orally every 6 needed hrs Carvedilol [facility] 47054118176 25 MG Orally Active as directed Clonidine HCl [facility] 96431287722 0.1 MG Orally Aug 22, Active 1 tablet at Twice a day 2018 bedtime Coreg [facility] 84778344177 12.5 MG Orally Active 2 tabs bid Dulera [facility] 23393110597 100-5 MCG/ACT Active 2 puffs Inhalation Twice a day Amitriptyline [facility] 06706768437 50 MG Orally Aug 22, Active 1 tablet HCl Once a day 2017 Clonidine HCl [facility] 44948688687 0.1 MG Orally April 20, Active 2 tablet twice 2018 twice x 1 week then 1 tablet twice a day for 1 week. Atorvastatin [facility] 83838411388 20 MG Orally Active 1 tablet Calcium Once a day HydrALAZINE HCl [facility] 91213399566 25 MG Orally Active 1 tablet every 12 hrs with food Lisinopril [facility] 31549588002 40 MG Orally Active 1 tablet Once a day Amitriptyline [facility] 18748857366 50 MG Orally Active 1 tablet HCl Once a day Results No Known Results Summary Purpose eClinicalWorks Submission
--- OUTSIDE RECORDS SUMMARY | 2019-06-09 06:18 | XMS REPORT ---
[...] Problem Atherosclerotic heart disease of I25.10 Active [place] coronary artery without angina pectoris Problem Abdominal [...] Elevated blood pressure reading R03.0 Active Medications No Known Medications Results No Known Results Summary Purpose eClinicalWorks Submission
--- OUTSIDE RECORDS SUMMARY | 2019-06-09 06:18 | XMS REPORT ---
[...] Problem Atherosclerotic heart disease of I25.10 Active [place] coronary artery without angina pectoris Problem Abdominal [...] Status Dosage System Date Date Ranolazine ER [facility] 42723159853 500 MG Orally Active 2 tablet Twice a day Isosorbide [facility] 26537867811 30 MG Orally Active 1 tablet Mononitrate ER Once a day in the morning Carvedilol [facility] 62870337033 25 MG Orally Active as directed Lisinopril [facility] 08527057098 40 MG Orally Active 1 tablet Once a day [place] 15111567519 12.5 MG Orally Active 2 tabs bid Ipratropium [place] [facility] 71266266355 0.02 % March 07, Active as Inhalation 1 2018 directed vial Three times a day Clonidine HCl [facility] 38479687610 0.1 MG Orally [place] Active 2 tablet twice , twice x 1 2017 week then 1 tablet twice a day for [address] [facility] 23015311855 0.5 MG Orally Active 1 tablet Once a day prn as needed anxiety /panic attacks Amlodipine Besylate ND 94567277062 10 MG Orally Aug 22, Active 1 tablet Once a day [address] [facility] 80606818493 20 MG Orally Active 1 tablet Once a day Dulera [facility] 20576064210 100-5 MCG/ACT Active 2 puffs Inhalation Twice a day Albuterol Sulfate [facility] 36402753380 (2.5 MG/3ML) March 07, Active inhale 1 0.083% 2018 vial by mouth via nebulizer 3 times a day Hydrochlorothiazide [facility] 88846593824 25 MG Orally Active 1 tablet Once a day in the morning - [facility] 60183153636 81 MG Orally Active 1 tablet Once a day Clonidine HCl [facility] 97440864885 0.1 MG Orally Aug 22, Active 1 tablet Twice a day 2018 at bedtime Amitriptyline HCl [facility] 66566580659 50 MG Orally Aug 22, Active 1 tablet Once a day [address] [facility] 00226140220 25 MG Orally Active 1 tablet every 12 hrs with food [place] [facility] 08906356565 10-325 MG Active 1 tablet Orally every 6 as needed hrs [place] Carbonate [facility] 70872594388 600 MG Orally Active 1 capsule Once a day at bedtime Amiodarone HCl [facility] 79756720857 200 MG Orally Active 1 tablet Once a day Amitriptyline HCl [facility] 69867254914 50 MG Orally Active 1 tablet Once a day Losartan Potassium [facility] 29582830091 25 MG Orally Active 1 tablet Once a day Lactulose [facility] 05187915969 20 GM/30ML Active 30 ml Orally Once a day Citalopram [facility] 43258653640 20 MG Orally Active 1 tablet Hydrobromide Once a day Results Name Result Date Reference Range Unit Abnormality Flag CT RIGHT FOOT W CONTRAST Summary Purpose eClinicalWorks Submission
[2019-06-09] MEDS ORDERED: ASPIRIN 81 MG CHEWABLE TABLET ONE (06:42)
[2019-06-09] MEDS ORDERED: ONDANSETRON 4 MG/2 ML VIAL ONE ×2 (06:42→07:12)
[2019-06-09] MEDS ORDERED: NA CHLORIDE 0.9% 500 ML ONE ×2 (06:43→08:48)
[2019-06-09] MEDS ORDERED: NITROGLYCERIN 0.4 MG/TAB SL ONE (06:43)
[2019-06-09 06:51] LABS: Absolute Lymphocytes (CBC) 1.7 K/uL (0.7-4.9); Basophils % 0.9 % (0-1.3); Hematocrit 49.1 % (39.6-49.0); Lymphocytes % 7.2 % (15.3-44.8); MPV 10.6 fL (7.6-11.3); RBC Red Blood Cell Count 5.28 M/uL (4.33-5.43)
[2019-06-09] MEDS ORDERED: MORPHINE 4 MG/ML SYR ONE ×4 (07:10→13:33)
[2019-06-09 07:15] LABS: Bilirubin Direct 0.3 mg/dL (0-0.2); Bilirubin Total 0.7 mg/dL (0.2-1.0); Magnesium 2.5 mg/dL (1.8-2.4); Potassium 3.6 mmol/L (3.5-5.1); Protein, Total 8.8 g/dL (6.4-8.2); Troponin (Emerg Dept Use Only) 0.06 ng/mL (0.0-0.045)
[2019-06-09 07:54] LABS: Protime INR 1.05
[2019-06-09 08:24] LABS: Urine Blood 1+ (NEG); Urine Glucose 1+ (NEG); Urine Protein 2+ (NEG)
[2019-06-09] MEDS ORDERED: HYDRALAZINE HCL 20 MG/ML VIAL ONE ×2 (08:28→09:11)
[2019-06-09 08:33] LABS: Urine Bacteria >50 /HPF (NONE SEEN); Urine Culture Reflex Order REFLEXED
--- NOTE | 2019-06-09 08:37 | RAD REPORT ---
EXAM DESCRIPTION: CT - Abdomen Pelvis W Contrast - 06/09/2019 7:58 am CLINICAL HISTORY: Abdominal pain with nausea. COMPARISON: Two thousand eighteen TECHNIQUE: Computed axial tomography of the abdomen pelvis was obtained. 100 cc Isovue-300 was admin istered intravenously. Oral contrast was not requested which limits evaluation of bowel. All CT scans are performed using dose optimization technique as appropriate and may include automated exposure control or mA/KV adjustment according to patient size. FINDINGS: The liver, spleen, pancreas, adrenal and kidneys appear unremarkable. Small renal cysts Cholecystectomy. Mild prominence of the common bile duct There is no evidence of diverticulitis. Atherosclerotic changes. Neurostimulator device in place Small to moderate hiatal hernia. Thickening of the wall of the distal esophagus IMPRESSION: Mild prominence of the common bile duct can be a normal finding in this patient status p ost cholecystectomy. Pathology such as a stricture or nonvisualized stone can also result in this felicitas earance and should be correlated clinically with appropriate lab values. Mild thickening of the wall of the distal esophagus may be secondary to incomplete distention or esop hagitis
[2019-06-09] MEDS ORDERED: PROMETHAZINE 25 MG/ML VIAL ONE ×2 (08:47→11:16)
--- NOTE | 2019-06-09 08:49 | RAD REPORT ---
EXAM DESCRIPTION: Jose Single View06/09/2019 7:16 am CLINICAL HISTORY: Chest pain COMPARISON: Two FINDINGS: The lungs appear clear of acute infiltrate. The heart is normal size Postsurgical changes involve the chest. IMPRESSION: No acute abnormalities displayed
[2019-06-09] MEDS ORDERED: CEFTRIAXONE/SWI 1gm 1 GM/10 ML SYR ONE (09:11)
[2019-06-09 09:12] LABS: Blood Morphology Comment NOT SEEN (NOT SEEN); Platelet Estimate ADEQ
[2019-06-09] MEDS ORDERED: PANTOPRAZOLE 40 MG INJ ONE (09:38)
[2019-06-09] MEDS ORDERED: LABETALOL HCL 100 MG/20 ML ONE (09:39)
--- NOTE | 2019-06-09 11:42 | RAD REPORT ---
EXAM DESCRIPTION: US - Abdomen Exam Limited - 06/09/2019 11:17 am CLINICAL HISTORY: ABD PAIN COMPARISON: Abdomen Exam Limited dated 11/22/2017; Abdomen Pelvis W Contrast dated 06/09/2019 FINDINGS: Cholecystectomy. The common bile duct is mildly prominent measuring 8 mm.. The liver demonstrates no findings of intrahepatic biliary dilatation. IMPRESSION: Mildly prominent common duct status post cholecystectomy, likely related to reservoir ef fect.
--- NOTE | 2019-06-09 11:45 | EKG ---
Test Date: 2019-06-09 Test Time: 06:13:11 Emergency Management Coordinator: HEATHER MEASUREMENT RESULTS: Intervals: Rate: 81 IA: 148 QRSD: 94 QT: 422 QTc: 490 [place]: P: 66 IA: 148 QRS: 31 T: 102 INTERPRETIVE STATEMENTS: Normal sinus rhythm Possible Left atrial enlargement Septal infarct, age undetermined ST & T wave abnormality, consider lateral ischemia Abnormal ECG Compared to ECG 04/18/2019 06:52:39 ST (T wave) deviation now present Possible ischemia now present Incomplete right bundle-branch block no longer present Prolonged QT interval no longer present Myocardial infarct finding still present Electronically Signed On 06-09-19 11:44:38 CDT by Ghulam Berrios
--- NOTE | 2019-06-09 11:45 | EKG ---
Test Date: 2019-06-09 Test Time: 11:22:11 Experimental Mechanic: ANNA MEASUREMENT RESULTS: Intervals: Rate: 86 DE: 154 QRSD: 94 QT: 394 QTc: 471 [place]: P: 65 DE: 154 QRS: 46 T: 105 INTERPRETIVE STATEMENTS: Normal sinus rhythm Possible Left atrial enlargement RSR' or QR pattern in V1 suggests right ventricular conduction delay Left ventricular hypertrophy Cannot rule out Septal infarct, age undetermined ST & T wave abnormality, consider lateral ischemia Abnormal ECG Compared to ECG 06/09/2019 06:13:11 RSR' in V1 or V2 now present Left ventricular hypertrophy now present Myocardial infarct finding still present ST (T wave) deviation still present Possible ischemia still present Electronically Signed On 06-09-19 11:44:24 CDT by Ghulam Berrios
--- NOTE | 2019-06-09 12:17 | ER ---
Nurse's Notes [facility] Name: Blayne Macias Age: 58 yrs Sex: Male : 1960 Arrival Date: 06/09/2019 Time: 06:15 Bed 7 Private MD: Diagnosis: Chest pain, unspecified;Epigastric pain;Urinary tract infection, site not specified;Dilated common bile duct;Elevated troponin Presentation: 06/09 06:08 Presenting complaint: Patient states: that yesterday 1900 he started to have nausea and fc vomiting. Then this am at 0200 he started to have severe midsternal chest pain along with shortness of breath. Transition of care: patient was not received from another setting of care. Onset of symptoms was June 08, 2019 at 19:00. Risk Assessment: Do you want to hurt yourself or someone else? Patient reports no desire to harm self or others. Initial Sepsis Screen: Does the patient meet any 2 criteria? No. Patient's initial sepsis screen is negative. Does the patient have a suspected source of infection? No. Patient's initial sepsis screen is negative. Care prior to arrival: None. 06:08 Method Of Arrival: EMS: [facility] 06:08 Acuity: SENTHIL 3 fc Historical: - Allergies: 06:20 Codeine; fc 06:20 PENICILLINS; fc - Home Meds: 06:20 amiodarone 200 mg Oral tab 0.5 tab 2 times per day [Active]; amitriptyline 50 mg Oral fc tab 1 tab once daily [Active]; aspirin 81 mg Oral chew 1 tab once daily [Active]; carvedilol 25 mg Oral tab 0.5 tab 2 times per day [Active]; hydrochlorothiazide 12.5 mg Oral tab 1 tab once daily [Active]; isosorbide mononitrate 60 mg Oral Tb24 [Active]; lithium carbonate 300 mg Oral cap 1 cap 3 times per day [Active]; losartan 25 mg Oral tab 1 tab once daily [Active]; mometasone-formoterol inhalation [Active]; nitroglycerin 0.4 mg SL subl 1 tab [Active]; Norvasc 10 mg Oral tab once daily [Active]; ranolazine 1000 mg Oral [Active]; simvastatin 40 mg Oral tab 1 tab once daily [Active]; - PMHx: 06:20 "electrical stimulator"; Back pain; Bipolar disorder; CAD; CHF; chronic back pain; fc Cirrhosis; COPD; Hepatitis; High Cholesterol; Hypertension; Pneumonia; Atrial Fib; - PSHx: 06:20 CABG; fc - Immunization history:: Last tetanus immunization: up to date. - Social history:: Smoking status: Patient uses tobacco products, smokes one-half pack cigarettes per day, Patient/guardian denies using alcohol, street drugs. - Ebola Screening: : Patient negative for fever greater than or equal to 101.5 degrees Fahrenheit, and additional compatible Ebola Virus Disease symptoms Patient denies exposure to infectious person Patient denies travel to an Ebola-affected area in the 21 days before illness onset. Screenin:18 Abuse screen: Denies threats or abuse. Nutritional screening: No deficits noted. fc Tuberculosis screening: No symptoms or risk factors identified. Fall Risk None identified. Assessment: 06:20 General: Appears uncomfortable, well groomed, Behavior is calm, cooperative, jd3 appropriate for age. Pain: Complains of pain in chest Quality of pain is described as pressure, sharp, shooting, Also complains of nausea. Neuro: Level of Consciousness is awake, alert, obeys commands, Oriented to person, place, time, situation. Cardiovascular: Reports chest pain, nausea, Capillary refill < 3 seconds Patient's skin is warm and dry. Rhythm is regular. Respiratory: Airway is patent Respiratory effort is even, unlabored, Respiratory pattern is regular, symmetrical, Denies cough, shortness of breath. GI: Abdomen is flat, non-distended, Reports nausea, vomiting, Patient currently denies abdominal pain. : No signs and/or symptoms were reported regarding the genitourinary system. EENT: No signs and/or symptoms were reported regarding the EENT system. Derm: Skin is intact, Skin is dry, Skin is normal, Skin temperature is warm. Musculoskeletal: Circulation, motion, and sensation intact. Range of motion: intact in all extremities. 07:21 Reassessment: Patient appears in no apparent distress at this time. Patient and/or jl7 family updated on plan of care and expected duration. Pain level reassessed. Cardiovascular: Reports chest pain, nausea, Heart tones S1 S2 present Patient's skin is warm and dry. Rhythm is sinus rhythm Chest pain is described as Pain is 8 out of 10 on a pain scale. quality is pressure, is located in substernal area began 3 hours prior to arrival episodes are continuous. Respiratory: Reports cough that is non-productive, Airway is patent Respiratory effort is even, unlabored, Respiratory pattern is regular, symmetrical, Breath sounds are clear bilaterally. Denies shortness of breath. GI: Reports nausea, vomiting, since 0300. Derm: Skin is normal. 08:15 Reassessment: Patient appears in no apparent distress at this time. No changes from jl7 previously documented assessment. Patient and/or family updated on plan of care and expected duration. Pain level reassessed. ERP notified of unchanged BP, see MAR for orders. 09:15 Reassessment: Patient appears in no apparent distress at this time. No changes from jl7 previously documented assessment. Patient and/or family updated on plan of care and expected duration. Pain level reassessed. Patient is alert, oriented x 3, equal unlabored respirations, skin warm/dry/pink. 10:08 Reassessment: pt laying in bed with eyes closed, respirations even and unlabored, no jl7 signs of distress noted at this time. 11:15 Reassessment: Pt returned from US, c/o increased nausea and pain, rated 7/10, ERP jl7 notified of complaints and BP, see MAR for orders. 11:41 Reassessment: Dr. Mitchell at bedside discussing plan of care. jl7 Vital Signs: 06:08 BP 213 / 114; Pulse 80; Resp 18; Temp 98.0(O); Pulse Ox 95% on R/A; Weight 65.77 kg fc (R); Height 5 ft. 9 in. (175.26 cm) (R); Pain 8/10; 07:00 BP 169 / 110; Pulse 80; Resp 16 S; Pulse Ox 97% on R/A; Pain 8/10; jl7 07:45 Pain 6/10; jl7 08:15 BP 222 / 119; Pulse 83; Resp 16 S; Pulse Ox 96% on R/A; Pain 6/10; jl7 08:35 BP 195 / 99; Pulse 83; Resp 16 S; Pulse Ox 100% on R/A; jl7 09:10 BP 204 / 101; Pulse 84; Resp 16; Pulse Ox 100% on R/A; dh3 09:45 BP 165 / 96; Pulse 86; Resp 16 S; Pulse Ox 100% on R/A; jl7 10:07 BP 151 / 103; Pulse 87; Resp 16 S; Pulse Ox 100% on R/A; jl7 11:15 BP 184 / 105; Pulse 90; Resp 16; Pulse Ox 100% ; Pain 7/10; jl7 12:05 BP 176 / 98; Pulse 91; Resp 16 S; Pulse Ox 100% on R/A; jl7 12:55 BP 187 / 101; Pulse 90; Resp 16; Pulse Ox 100% ; jl7 13:56 Pain 5/10; jl7 14:03 BP 165 / 100; Pulse 88; Resp 16 S; Pulse Ox 100% on R/A; Pain 5/10; jl7 06:08 Body Mass Index 21.41 (65.77 kg, 175.26 cm) fc ED Course: 06:08 Arm band placed on Patient placed in an exam room, on a stretcher. fc 06:08 Patient has correct armband on for positive identification. Placed in gown. Bed in low fc position. Call light in reach. Side rails up X2. road traffic controller on. Pulse ox on. NIBP on. 06:08 No provider procedures requiring assistance completed. fc 06:13 EKG done, by ED staff, reviewed by Joon Marquez MD. fc 06:15 Patient arrived in ED. ds1 06:17 Triage completed. fc 06:24 Preston Hardy, RN is Primary Nurse. jd3 06:24 Inserted saline lock: 20 gauge in left antecubital area, using aseptic technique. Blood jd3 collected. 06:25 Michael Doherty PA is PHCP. cp 06:25 Joon Marquez MD is Attending Physician. cp 06:58 Notified Nurse Practitioner and/or Physician Evidence Technician of a critical lab result(s), WBC fc 23.2. 07:14 XRAY Chest (1 view) In Process Unspecified. EDMS 07:35 Initial lab(s) drawn, by me, sent to lab. First set of blood cultures drawn by me. dh3 Inserted saline lock: 22 gauge in right forearm, using aseptic technique. Blood collected. 07:55 Second set of blood cultures drawn by me. dh3 07:58 CT completed. Patient tolerated procedure well. Patient moved to CT via stretcher. Patient moved back from CT. 07:59 CT Abd/Pelvis - IV Contrast Only In Process Unspecified. EDMS 10:38 Primary Nurse role handed off by Preston Hardy RN jl7 10:38 Elaine Paniagua, DIANA is Primary Nurse. jl7 11:18 US Abdomen Limited: RUQ/epigastric In Process Unspecified. EDMS 11:31 Peng Mitchell MD is Attending Physician. cp 11:37 initiated a transfer with Denia at the [facility]. eb 11:57 connected Francisca Hardin the hospitalist medical practitioners for [facility] with Michael anthony for patient transfer consultation. 12:47 administrative approval given by Denia Lewis/ patient has been accepted to [facility] 7 tower bed 735/ Francisca Hardin has accepted the patient in transfer. report to be called to [phone]. 14:03 Patient transferred, IV remains in place. intact, No redness/swelling at site. jl7 Administered Medications: 06:48 Drug: Nitroglycerin 0.4 mg Route: Sublingual; jd3 06:53 Drug: Nitroglycerin 0.4 mg Route: Sublingual; jd3 06:54 Drug: NS 0.9% 500 ml Route: IV; Rate: bolus; Site: left antecubital; jd3 08:00 Follow up: IV Status: Completed infusion; IV Intake: 500ml jl7 06:54 Drug: Aspirin Chewable Tablet 324 mg Route: PO; jd3 07:21 Follow up: Response: No adverse reaction jl7 06:54 Drug: Zofran 4 mg Route: IVP; Site: left antecubital; jd3 07:10 Follow up: Response: No adverse reaction; Nausea unchanged jl7 06:59 Drug: Nitroglycerin 0.4 mg Route: Sublingual; jd3 07:20 Follow up: Response: No adverse reaction; No change in condition; Pain is unchanged, jl7 physician notified 07:14 Drug: Zofran 4 mg Route: IVP; Site: left antecubital; jl7 08:27 Follow up: Response: No adverse reaction; Nausea is decreased jl7 07:19 Drug: morphine 4 mg Route: IVP; Site: left antecubital; jl7 07:45 Follow up: Pain 6/10 Adult; Response: No adverse reaction; Pain is decreased jl7 07:30 Not Given (Physician Discretion): NS 0.9% (30 ml/kg) 30 ml/kg IV at bolus once; Sepsis cp Protocol 08:33 Drug: hydrALAZINE 10 mg Route: IV; Rate: calculated rate; Site: right forearm; jl7 09:15 Follow up: Response: No adverse reaction; Blood pressure is unchanged; IV Status: jl7 Completed infusion 08:55 Drug: NS 0.9% 500 ml Route: IV; Rate: bolus; Site: right forearm; jl7 11:00 Follow up: IV Status: Completed infusion; IV Intake: 500ml jl7 08:55 Drug: morphine 4 mg Route: IVP; Site: right forearm; jl7 09:25 Follow up: Response: No adverse reaction; Pain is decreased jl7 08:59 Drug: Phenergan 12.5 mg Route: IVP; Site: right forearm; jl7 09:25 Follow up: Response: No adverse reaction; Nausea is decreased jl7 09:12 Drug: Rocephin 1 grams Route: IV; Rate: bolus; Site: right forearm; jl7 09:15 Follow up: Response: No adverse reaction; IV Status: Completed infusion jl7 09:16 Drug: hydrALAZINE 10 mg Route: IV; Rate: calculated rate; Site: right forearm; jl7 09:48 Follow up: Response: No adverse reaction; Blood pressure is lowered; IV Status: jl7 Completed infusion 09:43 Drug: ProTONIX 40 mg Route: IVP; Site: right forearm; jl7 09:49 Follow up: Response: No adverse reaction jl7 09:51 Not Given (ERP cancelled due to decrease in BP): Trandate 20 mg IVP once; Over 2 minutesjl7 11:25 Drug: Phenergan 12.5 mg Route: IVP; Site: right forearm; jl7 11:55 Follow up: Response: No adverse reaction; Nausea is decreased jl7 11:30 Drug: morphine 4 mg Route: IVP; Site: left forearm; jl7 11:50 Follow up: Response: No adverse reaction; Pain is decreased jl7 13:35 Drug: morphine 4 mg Route: IVP; Site: right forearm; jl7 13:56 Follow up: Pain 5/10 Adult; Response: No adverse reaction; Pain is decreased jl7 Intake: 08:00 IV: 500ml; Total: 500ml. jl7 11:00 IV: 500ml; Total: 1000ml. jl7 Outcome: 12:15 ER care complete, transfer ordered by . daphnie 14:03 Transferred by ground EMS to [facility], Transfer form completed. jl7 14:03 Condition: stable 14:03 Discharge instructions given to patient, Instructed on discharge instructions, Demonstrated understanding of instructions. 14:12 Patient left the ED. jl7 Addendum: 06/11/2019 12:30 Addendum: Culture Results: Positive urine culture. Phone call Attempt #1 Faxed urine s s culture report to [facility] ATTN Annette. Signatures: Dispatcher [employer] Cora Duron Felicia, RN RN Yamilex Lino ds1 Riya Bryan RN Michael Damian PA PA cp Leal, Jahala RN RN jl7 Lena Kee 3 Preston Hardy RN RN jd3 Katarina Gan Corrections: (The following items were deleted from the chart) 06/09 12:58 11:37 initiated a transfer with [place] at the [facility] transfer center. gabrielle anthony 12:58 11:[address] Duron the hospitalist medical practitioners for [facility] with Michael anthony for patient transfer consultation. eb
--- NOTE | 2019-06-09 12:18 | EDPHYS ---
Physician Documentation [facility] Name: Blayne Macias Age: 58 yrs Sex: Male : 1960 Arrival Date: 06/09/2019 Time: 06:15 Bed 7 Private MD: ED Physician Peng Mitchell HPI: 06/09 06:30 This 58 yrs old Male presents to ER via EMS with complaints of chest pain. cp 06:30 The patient or guardian reports chest pain that is located primarily in the substernal cp area. 06:30 Onset: this morning, at 02:00. cp 06:30 The chest pain is described as a pressure. cp 06:30 Duration: The patient or guardian reports a single episode, that is still ongoing, and cp worsening. 06:30 The patient presents with abdominal pain in the epigastric area. cp 06:30 Onset: The symptoms/episode began/occurred yesterday. Associated signs and symptoms: cp Pertinent positives: nausea and vomiting, Pertinent negatives: constipation, diarrhea, fever, shortness of breath. The symptoms are described as sharp. Associated signs and symptoms: Pertinent negatives: cough, lower extremity pain, lower extremity swelling, hematemesis. Severity of pain: in the emergency department the pain is actually worse. Historical: - Allergies: 06:20 Codeine; fc 06:20 PENICILLINS; fc - Home Meds: 06:20 amiodarone 200 mg Oral tab 0.5 tab 2 times per day [Active]; amitriptyline 50 mg Oral fc tab 1 tab once daily [Active]; aspirin 81 mg Oral chew 1 tab once daily [Active]; carvedilol 25 mg Oral tab 0.5 tab 2 times per day [Active]; hydrochlorothiazide 12.5 mg Oral tab 1 tab once daily [Active]; isosorbide mononitrate 60 mg Oral Tb24 [Active]; lithium carbonate 300 mg Oral cap 1 cap 3 times per day [Active]; losartan 25 mg Oral tab 1 tab once daily [Active]; mometasone-formoterol inhalation [Active]; nitroglycerin 0.4 mg SL subl 1 tab [Active]; Norvasc 10 mg Oral tab once daily [Active]; ranolazine 1000 mg Oral [Active]; simvastatin 40 mg Oral tab 1 tab once daily [Active]; - PMHx: 06:20 "electrical stimulator"; Back pain; Bipolar disorder; CAD; CHF; chronic back pain; fc Cirrhosis; COPD; Hepatitis; High Cholesterol; Hypertension; Pneumonia; Atrial Fib; - PSHx: 06:20 CABG; fc - Immunization history:: Last tetanus immunization: up to date. - Social history:: Smoking status: Patient uses tobacco products, smokes one-half pack cigarettes per day, Patient/guardian denies using alcohol, street drugs. - Ebola Screening: : Patient negative for fever greater than or equal to 101.5 degrees Fahrenheit, and additional compatible Ebola Virus Disease symptoms Patient denies exposure to infectious person Patient denies travel to an Ebola-affected area in the 21 days before illness onset. ROS: 06:35 Constitutional: Negative for body aches, chills, fever, poor PO intake. cp 06:35 Eyes: Negative for injury, pain, redness, and discharge. cp 06:35 ENT: Negative for drainage from ear(s), ear pain, sore throat, difficulty swallowing, difficulty handling secretions. 06:35 Cardiovascular: Positive for chest pain, Negative for edema, palpitations. 06:35 Respiratory: Negative for cough, shortness of breath, wheezing. 06:35 Abdomen/GI: Positive for abdominal pain, nausea and vomiting, Negative for constipation, hematemesis, black/tarry stool, rectal bleeding. 06:35 : Negative for urinary symptoms, flank pain. 06:35 Neuro: Negative for altered mental status, headache, weakness. 06:35 All other systems are negative. Exam: 06:40 ECG was reviewed by the Attending Physician. cp 06:42 Constitutional: The patient appears in no acute distress, alert, awake, cp non-diaphoretic, non-toxic, well developed, well nourished. 06:42 Head/Face: Normocephalic, atraumatic. cp 06:42 Eyes: Periorbital structures: appear normal, Conjunctiva: normal, no exudate, no injection, Sclera: no appreciated abnormality, Lids and lashes: appear normal, bilaterally. 06:42 ENT: External ear(s): are unremarkable, Nose: is normal, Mouth: Lips: moist, Oral mucosa: moist, Posterior pharynx: is normal, airway is patent, no erythema, no exudate. 06:42 Neck: ROM/movement: is normal, is supple, without pain, no range of motions limitations, no meningismus, no nuchal rigidity. 06:42 Chest/axilla: Inspection: no acute changes, Palpation: is normal, no crepitus, no tenderness. 06:42 Cardiovascular: Rate: normal, Rhythm: regular, Edema: is not appreciated, JVD: is not appreciated. 06:42 Respiratory: the patient does not display signs of respiratory distress, Respirations: normal, no use of accessory muscles, no retractions, no splinting, no tachypnea, labored breathing, is not present, Breath sounds: are clear throughout, no decreased breath sounds, no stridor, no wheezing. 06:42 Abdomen/GI: Inspection: abdomen appears normal, Bowel sounds: active, all quadrants, Palpation: soft, in all quadrants, moderate abdominal tenderness, in the epigastric area, rebound tenderness, is not appreciated, voluntary guarding, is elicited in the epigastric area. 06:42 Skin: no rash present. 06:42 Neuro: Orientation: to person, place \\T\\ time. Mentation: is normal, Cerebellar function: is grossly normal, Motor: moves all fours, strength is normal, Sensation: is normal. 11:30 ECG was reviewed by the Attending Physician. cp Vital Signs: 06:08 BP 213 / 114; Pulse 80; Resp 18; Temp 98.0(O); Pulse Ox 95% on R/A; Weight 65.77 kg fc (R); Height 5 ft. 9 in. (175.26 cm) (R); Pain 8/10; 07:00 BP 169 / 110; Pulse 80; Resp 16 S; Pulse Ox 97% on R/A; Pain 8/10; jl7 07:45 Pain 6/10; jl7 08:15 BP 222 / 119; Pulse 83; Resp 16 S; Pulse Ox 96% on R/A; Pain 6/10; jl7 08:35 BP 195 / 99; Pulse 83; Resp 16 S; Pulse Ox 100% on R/A; jl7 09:10 BP 204 / 101; Pulse 84; Resp 16; Pulse Ox 100% on R/A; dh3 09:45 BP 165 / 96; Pulse 86; Resp 16 S; Pulse Ox 100% on R/A; jl7 10:07 BP 151 / 103; Pulse 87; Resp 16 S; Pulse Ox 100% on R/A; jl7 11:15 BP 184 / 105; Pulse 90; Resp 16; Pulse Ox 100% ; Pain 7/10; jl7 12:05 BP 176 / 98; Pulse 91; Resp 16 S; Pulse Ox 100% on R/A; jl7 12:55 BP 187 / 101; Pulse 90; Resp 16; Pulse Ox 100% ; jl7 13:56 Pain 5/10; jl7 14:03 BP 165 / 100; Pulse 88; Resp 16 S; Pulse Ox 100% on R/A; Pain 5/10; jl7 06:08 Body Mass Index 21.41 (65.77 kg, 175.26 cm) fc MDM: 06:27 Patient medically screened. 09:30 Data reviewed: vital signs, nurses notes, lab test result(s), EKG, radiologic studies, cp CT scan, plain films, I have discussed the patient's presentation/case with the attending Emergency Department Physician;. 09:34 Physician consultation: Juwan Jmaes DO was called at 09:35, was contacted at 09:35, regarding admission, to the telemetry unit. patient's condition, would like further tests performed, RUQ ultrasound. 12:00 The patient was given aspirin in the Emergency Department. cp 12:00 Physician consultation: Juwan James DO was called at 12:00, was contacted at 12:00, regarding admission, to the telemetry unit. after a discussion of the case, a recommendation for transfer for higher level of care is made, due to dilated common bile duct. Patient presented with chest pain, troponin elevated to 0.06. Plan was to admit for UTI and cardiac r/o but DR James request transfer due to no GI coverage and slightly dilated common bile duct which patient has had in past. 06/09 06:25 Order name: Basic Metabolic Panel 06/09 06:25 Order name: CBC with Diff; Complete Time: 09:26 06/09 07:09 Interpretation: Normal except: WBC 23.2; HCT 49.1; GLYNN% 86.2; LYM% 7.2; NEUT A 19.9. 06/09 06:25 Order name: LFT's; Complete Time: 07:18 06/09 07:22 Interpretation: Normal except: AST 54; BILID 0.3; TP 8.8; GLOB 4.8; A/G 0.8. cp 06/09 06:25 Order name: Magnesium; Complete Time: 07:18 cp 06/09 07:33 Interpretation: Abnormal: MG 2.5. cp 06/09 06:25 Order name: NT PRO-BNP; Complete Time: 07:18 cp 06/09 07:18 Interpretation: Abnormal: NT PRO-BNP 3099. cp 06/09 06:25 Order name: PT-INR; Complete Time: 08:17 cp 06/09 06:25 Order name: Troponin (emerg Dept Use Only); Complete Time: 07:18 cp 06/09 07:18 Interpretation: Abnormal: TROPED 0.06. cp 06/09 06:26 Order name: Basic Metabolic Panel; Complete Time: 07:18 EDMS 08 07:22 Interpretation: Normal except: GLUC 150; BUN 22; CRE 1.44; GFR 50. cp 06/09 06:34 Order name: Lipase; Complete Time: 07:18 cp 06/09 07:01 Order name: Manual Differential; Complete Time: 09:26 EDMS 06/09 07:13 Order name: Blood Culture Adult (2) cp 06/09 07:13 Order name: Procalcitonin; Complete Time: 09:05 cp 06/09 07:13 Order name: Lactate; Complete Time: 08:17 cp 06/09 07:23 Order name: Urine Microscopic Only; Complete Time: 09:05 cp 06/09 09:05 Interpretation: Normal except: UWBC >50; URBC 10-20; UBACT >50. cp 06/09 06:25 Order name: XRAY Chest (1 view); Complete Time: 09:26 cp 06/09 07:31 Order name: CT Abd/Pelvis - IV Contrast Only; Complete Time: 09:05 cp 06/09 08:15 Order name: Urine Dipstick--Ancillary (enter results); Complete Time: 09:05 eb 06/09 09:06 Interpretation: Normal except: UBLD 1+; UPROT 2+; UESTR 1+. cp 06/09 08:36 Order name: Urine Culture EDMS 06/09 09:30 Order name: US Abdomen Limited: RUQ/epigastric; Complete Time: 11:55 cp 06/09 11:55 Interpretation: Report reviewed. cp 06/09 11:17 Order name: Troponin (emerg Dept Use Only); Complete Time: 11:55 dh3 06/09 06:25 Order name: EKG; Complete Time: 06:27 cp 06/09 06:25 Order name: Cardiac monitoring; Complete Time: 06:37 cp 06/09 06:25 Order name: EKG - Nurse/Tech; Complete Time: 06:37 cp 06/09 06:25 Order name: IV Saline Lock; Complete Time: 06:38 cp 06/09 06:25 Order name: Labs collected and sent; Complete Time: 06:38 cp 06/09 06:25 Order name: O2 Per Protocol; Complete Time: 06:37 cp 06/09 06:25 Order name: O2 Sat Monitoring; Complete Time: 06:37 cp 06/09 07:23 Order name: Urine Dipstick-Ancillary (obtain specimen); Complete Time: 08:38 cp 06/09 11:28 Order name: EKG Electrocardiogram EDMS EC:40 Rate is 81 beats/min. Rhythm is regular. NH interval is normal. QRS interval is normal. cp QT interval is normal. Interpreted by me. Reviewed by me. 11:30 Rate is 86 beats/min. Rhythm is regular. NH interval is normal. QRS interval is normal. cp QT interval is normal. T waves are Inverted in leads V5, V6. Interpreted by me. Reviewed by me. Administered Medications: 06:48 Drug: Nitroglycerin 0.4 mg Route: Sublingual; jd3 06:53 Drug: Nitroglycerin 0.4 mg Route: Sublingual; jd3 06:54 Drug: NS 0.9% 500 ml Route: IV; Rate: bolus; Site: left antecubital; jd3 08:00 Follow up: IV Status: Completed infusion; IV Intake: 500ml jl7 06:54 Drug: Aspirin Chewable Tablet 324 mg Route: PO; jd3 07:21 Follow up: Response: No adverse reaction jl7 06:54 Drug: Zofran 4 mg Route: IVP; Site: left antecubital; jd3 07:10 Follow up: Response: No adverse reaction; Nausea unchanged jl7 06:59 Drug: Nitroglycerin 0.4 mg Route: Sublingual; jd3 07:20 Follow up: Response: No adverse reaction; No change in condition; Pain is unchanged, jl7 physician notified 07:14 Drug: Zofran 4 mg Route: IVP; Site: left antecubital; jl7 08:27 Follow up: Response: No adverse reaction; Nausea is decreased jl7 07:19 Drug: morphine 4 mg Route: IVP; Site: left antecubital; jl7 07:45 Follow up: Pain 610 Adult; Response: No adverse reaction; Pain is decreased jl7 07:30 Not Given (Physician Discretion): NS 0.9% (30 ml/kg) 30 ml/kg IV at bolus once; Sepsis cp Protocol 08:33 Drug: hydrALAZINE 10 mg Route: IV; Rate: calculated rate; Site: right forearm; jl7 09:15 Follow up: Response: No adverse reaction; Blood pressure is unchanged; IV Status: jl7 Completed infusion 08:55 Drug: NS 0.9% 500 ml Route: IV; Rate: bolus; Site: right forearm; jl7 11:00 Follow up: IV Status: Completed infusion; IV Intake: 500ml jl7 08:55 Drug: morphine 4 mg Route: IVP; Site: right forearm; jl7 09:25 Follow up: Response: No adverse reaction; Pain is decreased jl7 08:59 Drug: Phenergan 12.5 mg Route: IVP; Site: right forearm; jl7 09:25 Follow up: Response: No adverse reaction; Nausea is decreased jl7 09:12 Drug: Rocephin 1 grams Route: IV; Rate: bolus; Site: right forearm; jl7 09:15 Follow up: Response: No adverse reaction; IV Status: Completed infusion jl7 09:16 Drug: hydrALAZINE 10 mg Route: IV; Rate: calculated rate; Site: right forearm; jl7 09:48 Follow up: Response: No adverse reaction; Blood pressure is lowered; IV Status: jl7 Completed infusion 09:43 Drug: ProTONIX 40 mg Route: IVP; Site: right forearm; jl7 09:49 Follow up: Response: No adverse reaction jl7 09:51 Not Given (ERP cancelled due to decrease in BP): Trandate 20 mg IVP once; Over 2 minutesjl7 11:25 Drug: Phenergan 12.5 mg Route: IVP; Site: right forearm; jl7 11:55 Follow up: Response: No adverse reaction; Nausea is decreased jl7 11:30 Drug: morphine 4 mg Route: IVP; Site: left forearm; jl7 11:50 Follow up: Response: No adverse reaction; Pain is decreased jl7 13:35 Drug: morphine 4 mg Route: IVP; Site: right forearm; jl7 13:56 Follow up: Pain 5/10 Adult; Response: No adverse reaction; Pain is decreased jl7 Disposition: 18:10 Co-signature as Attending Physician, Peng Mitchell MD. rn Disposition: 06/09/19 12:15 Transfer ordered to [facility]. Diagnosis are Chest pain, unspecified, Epigastric pain, Urinary tract infection, site not specified, Dilated common bile duct, Elevated troponin. - Reason for transfer: Higher level of care. - Accepting physician is DR Kelsie Tellez. - Condition is Stable. - Problem is new. - Symptoms have improved. Signatures: Dispatcher [employer] [facility] Prisca Ayala RN RN fc Nieto, Roman, MD MD rn Page, Corey, PA PA cp Elaine Paniagua RN RN jl7 Preston Hardy RN RN jd3 Corrections: (The following items were deleted from the chart) 07:09 07:09 Normal except: WBC 23.2; HCT 49.1; GLYNN% 86.2; LYM% 7.2. cp cp 09:12 09:11 CBC Smear Scan ordered. [facility] EDRI 13:01 12:15 06/09/2019 12:15 Transfer ordered to [facility]. Diagnosis is cp Chest pain, unspecified; Epigastric pain; Urinary tract infection, site not specified; Dilated common bile duct; Elevated troponin. Reason for transfer: Higher level of care. Accepting physician is Condition is Stable. Problem is new. Symptoms have improved. cp 14:12 13:01 06/09/2019 12:15 Transfer ordered to [facility]. Diagnosis is jl7 Chest pain, unspecified; Epigastric pain; Urinary tract infection, site not specified; Dilated common bile duct; Elevated troponin. Reason for transfer: Higher level of care. Accepting physician is DR Kelsie Tellez. Condition is Stable. Problem is new. Symptoms have improved. cp
[2019-06-09 14:33] VITALS: O2SAT 100
[2019-06-09 14:43] VITALS: BP 165/100
== END 2019-06-09 14:12 | disposition short-term general hospital (02) ==
LOC: ER 06:13
DX: R10.13 Epigastric pain (principal); N39.0 Urinary tract infection, site not specified; K83.8 Other specified diseases of biliary tract; R79.89 Other specified abnormal findings of blood chemistry; F17.210 Nicotine dependence, cigarettes, uncomplicated; I10 Essential (primary) hypertension; I48.91 Unspecified atrial fibrillation; I50.9 Heart failure, unspecified; F31.9 Bipolar disorder, unspecified; Z79.82 Long term (current) use of aspirin; Z88.0 Allergy status to penicillin; Z88.5 Allergy status to narcotic agent
CPT/HCPCS: 93005 ×2; 87040 ×2; 87088; 85025; 87086; 80048; 36415; 83735; 85610; 80076; 83605; 87077; 87186; 84484 ×2; 83690; 84145; 83880; 74177; 71045; 76705; 99285; Q9967; J0360 ×2; J2550 ×2; C9113; J0696; J2405 ×2; 81003; 81015; 96361; 96365; 96375

== ENCOUNTER 2020-03-02 23:24 | Inpatient (IN) | payer OTHER ==
--- OUTSIDE RECORDS SUMMARY | 2020-03-02 23:27 | XMS REPORT | Clinical Summary ---
:1960 Author Organization [facility] Address [address] [place] [address] Care Team Providers Name Role Phone Sharpsophie Primary Care Provider Montana Jones Unavailable Allergies Active Allergy Reactions Severity Noted Date Comments Cephalosporins Nausea And Vomiting 04/26/2019 Codeine Hives 05/08/2018 Penicillins 01/22/2016 Medications Medication Sig Dispensed Refills Start End Status Date Date amitriptyline (ELAVIL) Take 50 mg by 0 Active 50 MG tablet mouth nightly. DULoxetine (CYMBALTA) Take 60 mg by 0 Active 60 MG capsule mouth daily. vitamin E 200 UNIT Take 200 Units 0 Active capsule by mouth daily. carvedilol (COREG) 25 Take 1 tablet 60 tablet 0 Active MG tablet (25 mg total) 6 by mouth 2 (two) times daily with breakfast and dinner. lithium 300 MG capsule Take 300 mg by 0 Active mouth nightly . lisinopril Take 40 mg by 0 Activ e (PRINIVIL,ZESTRIL) 40 mouth daily . MG tablet aspirin 81 MG chewable Take 1 tablet 30 tablet 0 Active tablet (81 mg total) 8 by mouth daily. albuterol HFA (VENTOLIN Inhale 1 puff 0 Active HFA) 90 mcg/actuation by mouth via inhaler inhaler every 6 (six) hours as needed for Wheezing. mometasone-formoterol Inhale 2 puffs 0 Active (DULERA) 100-5 by mouth via mcg/actuation inhaler inhaler 2 (two) times daily. HYDROcodone-acetaminoph Take 1 tablet 0 Active en (NORCO 10-325) by mouth every 10-325 mg per tablet 6 (six) hours as needed for Pain. traZODone (DESYREL) 50 Take 0.5 15 tablet 0 Active MG tablet tablets (25 mg 8 total) by mouth every night as needed for Sleep. nitroglycerin Put 1 pill 30 tablet 0 Activ e (NITROSTAT) 0.4 MG SL under tongue 8 tablet every 5min as needed for chest pain.No more than 3 doses in 15min.. lidocaine (LIDODERM) 5 Place 3 patches 30 patch 0 Active % patch onto the skin 8 daily Remove & Discard patch within 12 hours or as directed by MD. famotidine (PEPCID) 20 Take 1 tablet 30 tablet 0 Active MG tablet (20 mg total) 8 by mouth 2 (two) times daily as needed for Heartburn. atorvastatin (LIPITOR) Take 1 tablet 30 tablet 0 Active 20 MG tablet (20 mg total) 8 by mouth nightly Take instead of simvastatin for cholesterol. amiodarone (PACERONE) Take 100 mg by 0 Active 100 MG tablet mouth 2 (two) times daily. isosorbide mononitrate Take 60 mg by 0 Active (IMDUR) 60 MG 24 hr mouth daily. tablet ranolazine (RANEXA) Take 1,000 mg 0 Active 1,000 mg SR tablet by mouth daily. budesonide-formoterol Inhale 2 puffs 0 Active (SYMBICORT) 80-4.5 by mouth via mcg/actuation inhaler inhaler 2 (two) times daily. clopidogrel (PLAVIX) 75 Take 1 tablet 90 tablet 3 Active mg tablet (75 mg total) 9 020 by mouth daily. methocarbamol (ROBAXIN) Take 750 mg by 0 0 Discontinued 750 MG tablet mouth 4 (four) 019 times daily. amLODIPine (NORVASC) 10 Take 10 mg by 0 Discontinued MG tablet mouth daily. 019 cloNIDine HCl Take 0.2 mg by 0 D iscontinued (CATAPRES) 0.2 MG mouth 2 (two) 019 tablet times daily. hydroCHLOROthiazide Take 12.5 mg by 0 /2 2/2 Discontinued (HYDRODIURIL) 12.5 MG mouth daily. 019 tablet oxyCODONE (ROXICODONE) Take 1 tablet 30 tablet 0 10/26 5 MG immediate release (5 mg total) by 9 0 19 tablet mouth every 8 (eight) hours as needed for up to 10 days. Max Daily Amount: 15 mg lidocaine (LIDODERM) 5 Place 1 patch 30 patch 0 15/12 % patch onto the skin 9 019 daily for 30 days Remove & Discard patch within 12 hours or as directed by MD. Active Problems Problem Noted Date Hypertensive emergency 05/13/2018 Acute kidney injury 05/13/2018 Diarrhea 05/13/2018 Transaminitis 05/13/2018 Hepatitis C virus infection without hepatic coma 05/13 Chest pain 05/09/2018 Syncope 05/09/2018 Paroxysmal atrial fibrillation 05/09/2018 COPD (chronic obstructive pulmonary disease) 8 CAD (coronary artery disease) 01/22/2016 Encounters Date Type Specialty Care Team Description 06/14/2019 Anesthesia Event Gastroenterology Carolina Moulton, MATT 06/14/2019 Surgery Gastroenterology Nereyda, ENDOSCOPIC Caleb Dawn ULTRASOUND,W/ ENDO MD Carmen 06/13/2019 Surgery Trina Moody HEART CATH ON OXANA Vargas MD NO ANGIOS 06/10/2019 Travel 06/09/2019 - Hospital Cardiology [facility] Intercostal gurpreet n; 06/15/2019 Encounter Carolina Shahid Other specifi ed hypotension; MD Vladislav Coronary artery disease involving [place] coronary artery of [place] heart without angina pectoris; Lisa, Pulmonary emphy sema, unspecified emphysema type (HCC); MD Sebastian Paroxysmal atrial fibrillation (HCC); Maggie Denis, Hypotension due to drugs; Epigastric pain ; RUQ pain; Dilated cbd, ac quired 06/09/2019 Orders Only General Internal Medicine after 03/02/2019 Social History Tobacco Use Types Packs/Day Years Used Date Former Smoker Cigarettes Quit: 05/25/20 18 Smokeless Tobacco: Never Used Tobacco Cessation: Counseling Given: No Sex Assigned at Date Recorded Not on file Job Start Date Occupation Industry Not on file Not on file Not on file Travel History Travel Start Travel End No recent travel history available. Last Filed Vital Signs Vital Sign Reading Time Taken Blood Pressure 128/80 06/15/2019 11:23 AM CDT Pulse 66 06/15/2019 11:23 AM CDT Temperature 36.3 C (97.3 F) 06/15/2019 11:23 AM CDT Respiratory Rate 18 06/15/2019 11:23 AM CDT Oxygen Saturation 99% 06/15/2019 11:23 AM CDT Inhaled Oxygen Concentration 21% 06/15/2019 7:55 AM CDT Weight 68 kg (149 lb 14.6 oz) 06/10/2019 6:00 AM CDT Height 175.3 cm (5' 9") 06/09/2019 5:00 PM CDT Body Mass Index 22.14 06/10/2019 6:00 AM CDT Plan of Treatment Not on file Procedures Procedure Name Priority Date/Time Associated Comments Diagnosis VASCULAR DIAGRAM 06/27/2019 5:41 -SCAN PM CDT REPORT OF PROCEDURE - 06/17/2019 3:18 ENDOSCOPY URL PM CDT REPORT OF PROCEDURE - 06/17/2019 3:11 ENDOSCOPY URL PM CDT REPORT OF PROCEDURE - 06/16/2019 1:33 ENDOSCOPY SCAN PM CDT CARDIAC CATH REPORT - 06/16/2019 1:33 SCAN PM CDT RHYTHM STRIP - SCAN 06/16/2019 1:33 PM CDT COMPREHENSIVE Routine 06/15/2019 5:37 Results fo r this METABOLIC PANEL AM CDT procedure ar e in the results section. TRANSFUSION SERVICE 06/14/2019 6:01 REPORT - SCAN PM CDT FL ERCP Routine 06/14/2019 3:25 Results for this PM CDT procedure are i n the results section. TISSUE EXAM AP Routine 06/14/2019 3:21 Results for this PM CDT procedure are i n the results section. PROCEDURE W/ C-ARM 06/14/2019 2:12 Abdominal pain, PM CDT unspecified abdominal location Special Needs REQ: 1400 ERCP,PAPILLOTOMY 06/14/2019 2:12 PM CDT Abdominal gurpreet n, unspecified abdominal location Special Needs REQ: 1400 ERCP,BALLOON SWEEPING 06/14/2019 2:12 PM CDT Abdomina l pain, unspecified abdominal location Special Needs REQ: 1400 ERCP W/BIOPSY 06/14/2019 2:12 PM CDT Abdominal pain, unspecified abdominal location Special Needs REQ: 1400 ENDOSCOPIC ULTRASOUND,W/ENDO 06/14/2019 2:12 PM CDT Abdominal pain, unspecified abdominal location Special Needs REQ: 1400 COMPREHENSIVE Routine 06/14/2019 4:22 AM Results for this METABOLIC PANEL CDT procedure ar e in the results section. CBC (HEMOGRAM ONLY) Routine 06/14/2019 4:22 AM R esults for this CDT procedure are i n the results section. POCT-ACT Routine 06/13/2019 4:09 PM Results for this CDT procedure are i n the results section. L HEART CATH ONLY - NO 06/13/2019 1:45 PM Chest pain, ANGIOS CDT unspecified type TYPE AND SCREEN, Routine 06/13/2019 5:01 AM Resu lts for this AUTOMATED CDT procedure are i n the results section. NM CARDIAC PET DONAVAN 06/12/2019 3:56 PM Result s for this PERFUSION REST AND/OR CDT proced ure are in STRESS the results section. TREADMILL Routine 06/12/2019 3:35 PM Results for this TOLERANCE(NON-NUCLEAR CDT proced ure are in TREADMILL) the results section. ECG 12-LEAD Routine 06/12/2019 3:33 PM Results for this CDT procedure are i n the results section. ECG 12-LEAD Routine 06/12/2019 3:33 PM CDT Procedure Note - Interface, External Ris In - 06/12/2019 4:00 PM CDT Ventricular Rate 77 BPM Atrial Rate 77 BPM P-R Interval 154 ms QRS Duration 112 ms Q-T Interval 500 ms QTC Calculation(Bazett) 565 ms P [place] 77 degrees R [place] 73 degrees T [place] 83 degrees Normal sinus rhythm Incomplete right bundle bran ch block Left ventricular hypertrophy with repolarization abnormality Cannot rule out Septal infar ct , age undetermined Prolonged QT Abnormal ECG ECG 12-LEAD Routine 06/12/2019 3:24 PM CDT Procedure Note - Interface, External Ris In - 06/12/2019 4:00 PM CDT Ventricular Rate 78 BPM Atrial Rate 78 BPM P-R Interval 154 ms QRS Duration 96 ms Q-T Interval 468 ms QTC Calculation(Bazett) 533 ms P [place] 77 degrees R [place] 73 degrees T [place] 86 degrees Normal sinus rhythm Left ventricular hypertrophy with repolarization abnormality Cannot rule out Septal infar ct , age undetermined Prolonged QT Abnormal ECG ECG 12-LEAD Routine 06/12/2019 3:24 PM CDT Resu lts for this procedure are i n the results section . TROPONIN I Routine 06/12/2019 1:09 AM CDT Resu lts for this procedure are i n the results section . CBC (HEMOGRAM ONLY) Routine 06/12/2019 1:09 AM CDT Results for this procedure are i n the results section . HEPATIC FUNCTION PANEL Routine 06/12/2019 1:09 AM CDT Results for this procedure are i n the results section . BASIC METABOLIC PANEL (7) Routine 06/12/2019 1:09 AM CDT Results for this procedure are i n the results section . VANCOMYCIN LEVEL, TROUGH Timed 06/12/2019 1:09 AM CDT Results for this procedure are i n the results section . 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 BLOOD CULTURE Routine 06/11/2019 8:46 AM CDT Res ults for this procedure are i n the results section . BLOOD CULTURE STAT 06/11/2019 5:55 AM CDT Res ults for this procedure are i n the results section . HEPATIC FUNCTION PANEL Routine 06/11/2019 5:41 AM CDT Results for this procedure are i n the results section . BASIC METABOLIC PANEL (7) Routine 06/11/2019 5:41 AM CDT Results for this procedure are i n the results section . CBC (HEMOGRAM ONLY) Routine 06/11/2019 5:41 AM CDT Results for this procedure are i n the results section . PROCALCITONIN STAT 06/11/2019 5:41 AM CDT Res ults for this procedure are i n the results section . ECHOCARDIOGRAM REPORT - SCAN 06/10/2019 9:21 PM CDT 2D ECHO W/ DOPPLER DONAVAN 06/10/2019 11:41 AM CDT Results for this (CW/PW/COLOR) procedure are in the results section . CBC W/PLT COUNT & AUTO STAT 06/10/2019 4:09 AM CDT Results for this DIFFERENTIAL procedure are i n the results section . TROPONIN I STAT 06/10/2019 4:09 AM CDT Resu lts for this procedure are i n the results section . LACTIC ACID, VENOUS Routine 06/10/2019 4:09 AM CDT Results for this procedure are i n the results section . LIPID PANEL Routine 06/10/2019 4:09 AM CDT Resu lts for this procedure are i n the results section . HEPATIC FUNCTION PANEL Routine 06/10/2019 4:09 AM CDT Results for this procedure are i n the results section . BASIC METABOLIC PANEL (7) Routine 06/10/2019 4:09 AM CDT Results for this procedure are i n the results section . MAGNESIUM STAT 06/10/2019 4:09 AM CDT Resu lts for this procedure are i n the results section . CBC W/PLT COUNT & AUTO STAT 06/10/2019 4:09 AM CDT Results for this DIFFERENTIAL procedure are i n the results section . OXYGEN SATURATION, MEASURED STAT 06/10/2019 2:44 AM CDT Results for this procedure are i n the results section . URINALYSIS W/ REFLEX URINE Routine 06/10/2019 2:29 AM CDT Results for this CULTURE procedure are i n the results section . URINE CULTURE Routine 06/10/2019 2:29 AM CDT Res ults for this procedure are i n the results section . LACTIC ACID, VENOUS STAT 06/10/2019 1:37 AM CDT Results for this procedure are i n the results section . BLOOD GAS, ARTERIAL STAT 06/09/2019 10:10 PM CDT Results for this procedure are i n the results section . BLOOD CULTURE Routine 06/09/2019 10:07 PM CDT Res ults for this procedure are i n the results section . FIBRINOGEN STAT 06/09/2019 10:06 PM CDT Resu lts for this procedure are i n the results section . APTT STAT 06/09/2019 10:06 PM CDT Resu lts for this procedure are i n the results section . PROTHROMBIN TIME/INR STAT 06/09/2019 10:06 PM CDT Results for this procedure are i n the results section . BLOOD CULTURE STAT 06/09/2019 9:55 PM CDT Res ults for this procedure are i n the results section . CBC W/PLT COUNT & AUTO STAT 06/09/2019 9:54 PM CDT Results for this DIFFERENTIAL procedure are i n the results section . CBC W/PLT COUNT & AUTO STAT 06/09/2019 9:54 PM CDT Results for this DIFFERENTIAL procedure are i n the results section . PHOSPHORUS STAT 06/09/2019 9:54 PM CDT Resu lts for this procedure are i n the results section . LIPASE STAT 06/09/2019 9:54 PM CDT Resu lts for this procedure are i n the results section . HEPATIC FUNCTION PANEL STAT 06/09/2019 9:54 PM CDT Results for this procedure are i n the results section . BASIC METABOLIC PANEL (7) STAT 06/09/2019 9:54 PM CDT Results for this procedure are i n the results section . PROCALCITONIN STAT 06/09/2019 9:54 PM CDT Res ults for this procedure are i n the results section . COMPREHENSIVE METABOLIC STAT 06/09/2019 9:54 PM CDT Results for this PANEL procedure are i n the results section . MAGNESIUM STAT 06/09/2019 9:54 PM CDT Resu lts for this procedure are i n the results section . TROPONIN I Routine 06/09/2019 9:54 PM CDT Resu lts for this procedure are i n the results section . POCT-LACTIC ACID, VENOUS Routine 06/09/2019 9:49 PM CDT Results for this procedure are i n the results section . 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 TROPONIN I Routine 06/09/2019 6:29 PM CDT Resu lts for this procedure are in the results section . BLOOD CULTURE Routine 06/09/2019 6:29 PM CDT Res ults for this procedure are in the results section . after 03/02/2019 Results VASCULAR DIAGRAM -SCAN (06/27/2019 5:41 PM CDT) Narrative Performed At This result has an attachment that is no t available. REPORT OF PROCEDURE - ENDOSCOPY URL (06/17/2019 3:18 PM CDT) Narrative Performed At This result has an attachment that is no t available. REPORT OF PROCEDURE - ENDOSCOPY URL (06/17/2019 3:11 PM CDT) Narrative Performed At This result has an attachment that is no t available. EKG-SCANNED (06/16/2019 1:33 PM CDT) Narrative Performed At This result has an attachment that is no t available. CARDIAC CATH REPORT - SCAN (06/16/2019 1:33 PM CDT) Narrative Performed At This result has an attachment that is no t available. RHYTHM STRIP - SCAN (06/16/2019 1:33 PM CDT) Narrative Performed At This result has an attachment that is no t available. Comprehensive metabolic panel (06/15/2019 5:37 AM CDT)Only the most recent of3 resultswithin the time period is included. Protein, Total 7.0 6.0 - 8.3 gm/dL [facility] Albumin 3.4 (L) 3.5 - 5.0 g/dL [facility] Alkaline Phosphatase 87 40 - 150 U/L [facility] Total Bilirubin 0.6 0.2 - 1.2 mg/dL [facility] Sodium 134 (L) 136 - 145 meq/L [facility] Potassium 4.5 3.5 - 5.1 meq/L [facility] Chloride 103 98 - 107 meq/L [facility] CO2 26 22 - 29 meq/L [facility] BUN 19 7 - 21 mg/dL [facility] Creatinine 0.80 0.57 - 1.25 mg/dL [facility] Glucose 112 (H) 70 - 105 mg/dL [facility] Calcium 8.9 8.4 - 10.2 mg/dL [facility] AST 106 (H) 5 - 34 U/L [facility] ALT 73 (H) 6 - 55 U/L [facility] EGFR 99Comment: ESTIMATED GFR mL/min/1.73 sq m [facility] IS NOT ACCURATE [facility] CREATININE CLEARANCE IN PREDICTING GLOMERULAR FILTRATION RATE. ESTIMATED GFR IS NOT APPLICABLE FOR DIALYSIS PATIENTS. Specimen Blood Performing Organization Address City/State/Zipcode Phone Number [facility] [address] [place] [address] CENTER TRANSFUSION SERVICE REPORT - SCAN (06/14/2019 6:01 PM CDT) Narrative Performed At This result has an attachment that is no t available. [place] ERCP (06/14/2019 3:25 PM CDT) Specimen Narrative Performed At FINAL REPORT [facility] A fluoroscopic unit was utilized for a p rocedure performed in the operating room. No interpretation was re quested. Please refer to the operative report regarding findings. Ple ase refer to PACS for patient radiation dose information. Signed: Clifton Nicholas MD Report Verified Date/Time:06/16/2019 12:50:49 Reading Location: [facility] Reading Room Procedure Note Interface, External Ris In - 06/16/2019 12:52 PM CDT FINAL REPORT A fluoroscopic unit was utilized for a p rocedure performed in the operating room. No interpretation was re quested. Please refer to the operative report regarding findings. Ple ase refer to PACS for patient radiation dose information. Signed: Clifton Nicholas MD Report Verified Date/Time: 06/16/2019 1 2:50:49 Reading Location: [facility] Radiolog y Reading Room Performing Organization Address City/[facility]/Zipcode Phone Number GE [facility]IS Tissue Exam (06/14/2019 3:21 PM CDT) Case Report Surgical Pathology Report Case: [id number] [facility] Authorizing Provider:Caleb Wilson Collected: 06/14/[address] [place] [address] MD Carmen Ordering Location: [address] Received:06/15/2019 0757 Service Pathologist: Misty Jackson MD Specimen:Ampulla, Am maday Bx DIAGNOSIS A. "AMPULLA", BIOPSY: [facility] - SQUAMOUS AND FOVEOLAR TYPE MUCOSA WITH MILD CHRONIC INFLAMMATION [facility] - NEGATIVE FOR MALIGNANCY (SEE COMMENT) Signing Pathologist Direct Phone Line: COMMENT The biopsy shows fragments [facility] of squamous and foveolar [facility] type mucosa with mild chronic inflammation and cautery. Focal muscle is also seen. No definite small bowel/ biliary lining is seen. The ampulla normally does not have squamous lining. This could be a metaplastic change. Clinical and endoscopic correlation is required. CPT Code(s) 88523 [facility] CLINICAL HISTORY Pre and postop diagnosis: en doscopic ultrasound with endo, EUS and possible ERCP. [facility] Pre and postop diagnosis: abdominal pain MEDICAL CENTER SPECIMEN SOURCE Ampulla, ampulla Bx [facility] GROSS DESCRIPTION .Received in formalin [facility] labeled with the patient's [facility] name, accession number and "ampulla" is a 0.3 x 0.3 x 0.2 cm piece of meehan-brown, irregular, mucosal-covered tissue. The specimen submitted in toto following filtration in cassette A1. SS/pl MICROSCOPIC DESCRIPTION Performed. [facility] Specimen Tissue - Ampulla Performing Organization Address City/[facility]/Zipcode Phone Number [facility] MEDICAL [address] [place] [phone] CENTER CBC (Hemogram only) (06/14/2019 4:22 AM CDT)Only the most recent of3 results within the time period is included. WBC 8.7 3.5 - 10.5 K/L [facility] RBC 4.05 (L) 4.63 - 6.08 M/L [facility] Hemoglobin 12.5 (L) 13.7 - 17.5 GM/DL [facility] Hematocrit 38.1 (L) 40.1 - 51.0 % [facility] MCV 94.1 (H) 79.0 - 92.2 fL [facility] MCH 30.9 25.7 - 32.2 pg [facility] MCHC 32.8 32.3 - 36.5 GM/DL [facility] RDW 13.3 11.6 - 14.4 % [facility] Platelets 198 150 - 450 K/CU MM [facility] MPV 11.4Comment: 9.4 - 12.4 fL [facility] MPV-Approximately 20% [facility] positive bias due to method change. nRBC 0 0 - 0 /100 WBC [facility] Specimen Blood Performing Organization Address City/State/Zipcode Phone Number [address] [address] CENTER POC ACTIVATED CLOTTING TIME (06/13/2019 4:09 PM CDT) Activated Clotting Time 125Comment: TESTED AT sec [facility] I [address] [address] Specimen Blood Performing Organization Address City/[facility]/Zipcode Phone Number [address] [address] CENTER Type and screen, automated ([facility]) (06/13/2019 5:01 AM CDT) ABO/RH AUTOMATED (BEAKER) B POSITIVE [facility] Ab Scrn NEGATIVE [facility] Specimen Blood Performing Organization Address City/State/Zipcode Phone Number [facility] [address] [place] [address] nm myocardial perfusion PET (rest and stress) (06/12/2019 3:56 PM CDT) Specimen Narrative Performed At FINAL REPORT [employer] PROCEDURE: MYOCARDIAL PERFUSION PET IMAG ING (Rest/Stress) CPT CODE: 15389 INDICATION: Evaluate acute chest pain/di scomfort CARDIOVASCULAR PROFILE: CAD History: Known CAD, history of ACB Symptoms: Chest pain Risk Factors: Hypertension, tobacco use BMI: 22.1 Medications: Aspirin, atorvastatin, carv edilol, amiodarone STRESS PROTOCOL: Pharmacologic stress was achieved with a 10-second intravenous infusion of regadenoson 0.4 mg. The radi opharmaceutical was administered 30 seconds after the start of the regadenoson infusion. IMAGING PROTOCOL: Limited low-dose CT imaging was performe d for attenuation correction. 40.0 mCi of Rb-82 chloride was injected intravenously at rest, and gated PET images were obtained. Then, 40 .1 mCi of Rb-82 chloride was injected intravenously at peak stress, a nd gated PET images were obtained. Image quality is good. REST FINDINGS: HR: 78/min BP: 159/76 mmHg Prelim. EKG: Normal sinus rhythm, septal infarct age old, LVH with repolarization abnormalities. Perfusion: Decreased tracer uptake in th e apex and apical anterior LV. Wall Motion: Apical akinesis (LVEF 54%). LV Volume: Normal. STRESS FINDINGS: HR: 93/min (58% of MPHR) BP: 158/76 mmHg Prelim. EKG: No significant changes. Symptoms: Chest pain (5/10), headache (t reated with 125 mg of IV Aminophyllin). Perfusion: Decreased tracer uptake in th e apex, mid anterior, apical anterior segments. Wall Motion: Apical akinesis, hypokinesi s of the anterior wall (LVEF 48%). LV Volume: Not significantly changed fro m rest. IMPRESSION: 1. Abnormal study. 2. Abnormal myocardial perfusion. There is a medium size, moderate severity, reversible perfusion abnormali ty in the apical anterior and mid anterior segments of the LV. There i s also a small size, marked severity, fixed perfusion abnormality in the apex. 3. Normal resting LVEF, which decreases with pharmacologic stress. 4. Normal extracardiac tracer distributi on. 5. There is no prior study for compariso n. Signed: Abelino Saenz MD Report Verified Date/Time:06/12/2019 16:40:23 Reading Location: [place] [id number] Reading Room Procedure Note Interface, External Ris In - 06/12/2019 4:42 PM CDT FINAL REPORT PROCEDURE: MYOCARDIAL PERFUSION PET IMAG ING (Rest/Stress) CPT CODE: 11289 INDICATION: Evaluate acute chest pain/di scomfort CARDIOVASCULAR PROFILE: CAD History: Known CAD, history of ACB Symptoms: Chest pain Risk Factors: Hypertension, tobacco use BMI: 22.1 Medications: Aspirin, atorvastatin, carv edilol, amiodarone STRESS PROTOCOL: Pharmacologic stress was achieved with a 10-second intravenous infusion of regadenoson 0.4 mg. The radi opharmaceutical was administered 30 seconds after the start of the regadenoson infusion. IMAGING PROTOCOL: Limited low-dose CT imaging was performe d for attenuation correction. 40.0 mCi of Rb-82 chloride was injected intravenously at rest, and gated PET images were obtained. Then, 40 .1 mCi of Rb-82 chloride was injected intravenously at peak stress, a nd gated PET images were obtained. Image quality is good. REST FINDINGS: HR: 78/min BP: 159/76 mmHg Prelim. EKG: Normal sinus rhythm, septal infarct age old, LVH with repolarization abnormalities. Perfusion: Decreased tracer uptake in th e apex and apical anterior LV. Wall Motion: Apical akinesis (LVEF 54%). LV Volume: Normal. STRESS FINDINGS: HR: 93/min (58% of MPHR) BP: 158/76 mmHg Prelim. EKG: No significant changes. Symptoms: Chest pain (5/10), headache (t reated with 125 mg of IV Aminophyllin). Perfusion: Decreased tracer uptake in th e apex, mid anterior, apical anterior segments. Wall Motion: Apical akinesis, hypokinesi s of the anterior wall (LVEF 48%). LV Volume: Not significantly changed fro m rest. IMPRESSION: 1. Abnormal study. 2. Abnormal myocardial perfusion. There is a medium size, moderate severity, reversible perfusion abnormali ty in the apical anterior and mid anterior segments of the LV. There i s also a small size, marked severity, fixed perfusion abnormality in the apex. 3. Normal resting LVEF, which decreases with pharmacologic stress. 4. Normal extracardiac tracer distributi on. 5. There is no prior study for compariso n. Signed: Abelino Saenz MD Report Verified Date/Time: 06/12/2019 1 6:40:23 Reading Location: [address] [address] Reading Room Performing Organization Address City/State/Zipcode Phone Number GE RIS Treadmill tolerance(Non-Nuclear Treadmill) (06/12/2019 3:35 PM CDT) Specimen Narrative Performed At Protocol Name RegCartiCure MUSE Time In Exercise Phase 00:01:00 Max. Systolic BP 158 mmHg Max Diastolic BP 76 mmHg Max Heart Rate 93 BPM Max Predicted Heart Rate 160 BPM Reason For Termination Predetermined end point Reason for Test Chest Pain,Evaluate for worsening CAD Target HR Formula (220 - Age)*100% Arrhythmias none Resting ECG Normal Sinus Rhythm,septal i nfarct left ventricular hypertrophy repolarization abnormality ST Changes No Significant Changes Overall Impression Indeterminate due to pharmacological stress Chest Pain CHEST PAIN 3/10 HR Response To Exercise BP Response To Exercise amiodarone,asa,atorvastatin,carvedilol Confirmed by fellow Lorrie Marsh ([id number]) on 06/12/2019 4:23:15 PM Confirmed by MD VELEZ JOSEPH P ([id number]) on 9 6:48:32 AM Procedure Note Interface, External Ris In - 06/23/2019 6:48 AM CDT Protocol Name Regadenoson Time In Exercise Phase 00:01:00 Max. Systolic BP 158 mmHg Max Diastolic BP 76 mmHg Max Heart Rate 93 BPM Max Predicted Heart Rate 160 BPM Reason For Termination Predetermined end point Reason for Test Chest Pain,Evaluate for worsening CAD Target HR Formula (220 - Age)*100% Arrhythmias none Resting ECG Normal Sinus Rhythm,septal i nfarct left ventricular hypertrophy repolarization abnormality ST Changes No Significant Changes Overall Impression Indeterminate due to pharmacological stress Chest Pain CHEST PAIN 3/10 HR Response To Exercise BP Response To Exercise amiodarone,asa,atorvastatin,carvedilol Confirmed by fellow Lorrie Marsh ([id number]) on 06/12/2019 4:23:15 PM Confirmed by MD VELEZ JOSEPH P ([id number]) on 06/23/2019 6:48:32 AM Performing Organization Address City/[facility] Phone Number GE MUSE ECG 12 lead (06/12/2019 3:33 PM CDT)Only the most recent of4 resultswithin the time period is included. Specimen Narrative Performed At Ventricular Rate 77 BPM GE MUSE Atrial Rate 77 BPM P-R Interval 154 ms QRS Duration 112 ms Q-T Interval 500 ms QTC Calculation(Bazett) 565 ms P [place] 77 degrees R [place] 73 degrees T [place] 83 degrees Normal sinus rhythm Incomplete right bundle branch block Left ventricular hypertrophy with repola rization abnormality Cannot rule out Septal infarct , age und etermined Prolonged QT Abnormal ECG Confirmed by MD VELEZ JOSEPH P ([id number]) on 9 6:36:31 AM Procedure Note Interface, External Ris In - 06/13/2019 6:36 AM CDT Ventricular Rate 77 BPM Atrial Rate 77 BPM P-R Interval 154 ms QRS Duration 112 ms Q-T Interval 500 ms QTC Calculation(Bazett) 565 ms P [place] 77 degrees R [place] 73 degrees T [place] 83 degrees Normal sinus rhythm Incomplete right bundle branch block Left ventricular hypertrophy with repola rization abnormality Cannot rule out Septal infarct , age und etermined Prolonged QT Abnormal ECG Confirmed by MD VELEZ JOSEPH P ([id number]) on 06/13/2019 6:36:31 AM Performing Organization Address [facility] Phone Number [facility] MUSE Troponin I (06/12/2019 1:09 AM CDT)Only the most recent of4 resultswithin the time period is included. Troponin I 0.05 (H) 0.00 - 0.03 ng/mL [facility] Specimen Blood Narrative Performed At Troponin I (TnI) levels must be interpreted [facility] in the context of the presenting symptoms [...] disease, and persistent tachyarrhythmia. Performing Organization Address City/State/[facility] Phone Number [address] [address] [place] Vancomycin level, trough (06/12/2019 1:09 AM CDT) Vancomycin Tr 11.6 10.0 - 20.0 ug/mL [facility] Specimen Blood Narrative Performed At Please HOLD the dose until the trough comes [facility] back. If >20 mcg/ml, DO NOT administer the dose and contact the pharmacist. Performing Organization Address [facility] Phone Number [address] [address] [place] Hepatic function panel (06/12/2019 1:09 AM CDT)Only the most recent of4 results within the time period is included. Protein, Total 6.6 6.0 - 8.3 gm/dL [facility] Albumin 3.3 (L) 3.5 - 5.0 g/dL [facility] Total Bilirubin 0.5 0.2 - 1.2 mg/dL [facility] Bilirubin, Direct 0.4 0.1 - 0.5 mg/dL [facility] Alkaline Phosphatase 39 (L) 40 - 150 U/L [facility] AST 22 5 - 34 U/L [facility] ALT 26 6 - 55 U/L [facility] Specimen Blood Performing Organization Address [facility] Phone Number [address] [address] [place] Basic metabolic panel (06/12/2019 1:09 AM CDT)Only the most recent of4 results within the time period is included. Sodium 135 (L) 136 - 145 meq/L [facility] Potassium 3.7 3.5 - 5.1 meq/L [facility] Chloride 105 98 - 107 meq/L [facility] CO2 24 22 - 29 meq/L [facility] BUN 14 7 - 21 mg/dL [facility] Creatinine 0.78 0.57 - 1.25 mg/dL [facility] Glucose 144 (H) 70 - 105 mg/dL [facility] Calcium 8.3 (L) 8.4 - 10.2 mg/dL [facility] EGFR 102Comment: ESTIMATED GFR IS mL/min/1.73 sq m [facility] NOT ACCURATE CREATININE [facility] CLEARANCE IN PREDICTING GLOMERULAR FILTRATION RATE. ESTIMATED GFR IS NOT APPLICABLE FOR DIALYSIS PATIENTS. Specimen Blood Performing Organization Address City/[facility] Cent[facility] Phone Number [address] [address] [place] Blood Culture - Routine (Left Venipuncture) (06/11/2019 8:46 AM CDT)Only the most recent of5 resultswithin the time period is included. Result No growth in 5 days [facility] Specimen Blood Performing Organization Address City/[facility] Cent[facility] Phone Number [address] [address] [place] Procalcitonin (06/11/2019 5:41 AM CDT)Only the most recent of2 resultswithin the time period is included. Procalcitonin 0.30 (H) <0.05 ng/mL [facility] Specimen Blood Narrative Performed At SEPSIS RISK (ng/mL) [facility] Low:0.05-0.50 Intermediate: 0.51-2.00 High: >=2.01 Performing Organization Address City/State/Zipcode Phone Number [facility] [address] [place] [address] CENTER ECHOCARDIOGRAM REPORT - SCAN (06/10/2019 9:21 PM CDT) Narrative Performed At This result has an attachment that is no t available. 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 Clinical History HGB 12.0 HCT 37.0 % CHF COPD CAD FORMER SMOKER HTN BYPASS [place] CORONARY 01/23/2016 Height: 69 inches Weight: 67.59 kg (149 lbs) BSA: 1.82 m^2 BMI: 22 kg/m^2 HR: 67 bpm BP: 150/89 mmHg Summary 1. Normal LV size and function. LVEF is 55-60%. Mild septal hypertrophy noted. 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 2. Diastology: Grade 2 diastolic dysfun ction 3. Normal RV size and function 4. No significant valvular heart diseas e 5. Unable to estimate PASP 6. No pericardial effusion Previous Study In comparison with the prior exam on 05-11-18 there are no significant changes. Signature Findings Technical Quality: Technically adequate exam. Left Ventricle The left ventricle is chamber size (by PSLAX di mension) is normal (male - LVIDd 4.2-5.8 cm) . Mi ld basal septal hypertrophy is present. The fo llowing segment(s) appear akinetic: apic al septum . Septal motion is abnormal, likely relate d to pr ior cardiac surgery . The other segments contract no rmally. Global LV systolic function norm al . LVEF by Greer's method of disk assessment is n ormal (5 5-60%) . The LVEF was measured using Sim pson's bi -plane method of disk . Grade 2 diastoli c dy sfunction (moderately increased LA press ure). Left AtriumLA size is moderately enlarged (42-48 ml/m2) . Right VentricleRV chamber size is normal . Gl obal RV systolic function is normal . Right Atrium RA cavity size is normal . Aortic Valve Mild AoV cusp thickening and calcification. Ao V cusp mobility is normal . Mitral Valve Mild MV leaflet thickening. Tr desmond mitral regurgitation. Tricuspid ValveTV structure is normal. Trace TR. Un able to estimate peak systolic PA pressu re; in adequate TR velocity signal. Pulmonic Valve Normal PV structure and function. AortaAortic root size (SInus of Valsalva diameter) i s no rmal . PericardiumNo pericardial effusion is visualized. IVC/SVC/PA/PV/PleuralPulmonary vein flow is consistent with increased LA P . Th e estimated RA pressure by IVC dynamics 5-10mmHg . Chambers/Structures Left Atrium LA Volume: 83.11 ml LA Area: 24.24 cm^2 LA Vol. Index: 46 ml/m^2 Left Ventricle LVIDd: 4.85 cm LV Septum Diastolic: 1.36 cm LV PW Diastolic: 0.98 cm LVEDV Greer's:90.48 ml LV Length: 8.97 cm LVESV Greer's:37.8 ml LVEF Greer's: 58.2 % LVEDVI: 50 ml/m^2 LVESVI: 21 ml/m^2 LVOT Diameter: 2.07 cm Right Atrium RA Vol. (Sngl Plane): 4 0 ml Right Ventricle TAPSE: 1.77 cm Aorta Ao Root S of Nneka.: 3.52 cm Doppler/Quantitative Measurements Mitral Valve MV Peak E-Wave: 0.87 m/sMV Peak A-Wave: 0.57 m/s E/A Ratio: 1. 52 Peak Gradient: 3.06 mmHg Deceleration Time: 195.2 msec MV Brad. Peak: Tissue Doppler E' Lateral Velocity: 0.05 m/s E/E': 17.18 Aortic Valve Peak Velocity: 1.13 m/s Mean Velocity: 0.77 m/s Peak Gradient: 5.09 mmHgMean Gradient: 2.8 mmHg AV Area (continuity): 2.94 cm^2 AV VTI: 24.29 cm AV DVI: 0.87 LVOT Peak Velocity: 1.06 m/s Peak Gradient: 4.57 mmHg Mean Velocity: 0.69 m/s Mean Gradient: 2.26 mmHg LVOT Diameter: 2.07 cmLVOT VTI: 21.22 cm LVOT Area: 3.37 cm^2LVOT SV:71.38 ml LVOT CO: 4.78 l/min LVOT CI: 2.63 l/min/m^2 Procedure Note Interface, External Ris In - 06/10/2019 4:42 PM CDT Transthoracic Echocardiography Report (TTE) Demographics Patient Name ALHAJI MACIAS Date of Study 06/10/2019 [place] Gender Male Visit Number [id number] Race Unknown Room [place] [id number] Number Date of 1960 Referri Physician Carolina Bansal MD Age 58 year(s) Sonogra linda Carrillo O And M Supervisor Daiana Bravo Interpr eting Chris Grossman MD Physici an Procedure Type of Study TTE procedure:2DECHO W DOPPLE R(CW/PW/COLOR) (DONAVAN) Indications:Hypotension or hemodynamic i nstability. Clinical History HGB 12.0 HCT 37.0 % CHF COPD CAD FORMER SMOKER HTN [place] CORONARY 01/23/2016 Height: 69 inches Weight: 67.59 kg (149 lbs) BSA: 1.82 m^2 BMI: 22 kg/m^2 HR: 67 bpm BP: 150/89 mmHg Summary 1. Normal LV size and function. LVEF is 55-60%. Mild septal hypertrophy noted. 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 2. Diastology: Grade 2 diastolic dysfun ction 3. Normal RV size and function 4. No significant valvular heart diseas e 5. Unable to estimate PASP 6. No pericardial effusion Previous Study In comparison with the prior exam on there are no significant changes. Signature Findings Technical Quality: Technically adequate exam. Left Ventricle The left ventric le is chamber size (by PSLAX dimension) is no rmal (male - LVIDd 4.2-5.8cm) . Mild basal septa l hypertrophy is present. The following segmen t(s) appear akinetic: apical septum . Septal motion is abnormal, likely related to prior cardiac pearson rgery . The other segments contract normally. Global LV systolic function normal . LVEF by Greer's met hod of disk assessment is normal (55-60%) . The L VEF was measured using Greer's bi-plane method of disk . Grade 2 diastolic dysfunction (mod erately increased LA pressure). Left Atrium LA size is moder ately enlarged (42-48 ml/m2) . Right Ventricle RV chamber size is normal . Global RV systol ic function is normal . Right Atrium RA cavity size i s normal . Aortic Valve Mild AoV cusp th ickening and calcification. AoV cusp mobilit y is normal . Mitral Valve Mild MV leaflet thickening. Trace mitral reg urgitation. Tricuspid Valve TV structure is normal. Trace TR. Unable to estima te peak systolic PA pressure; inadequate TR ve locity signal. Pulmonic Valve Normal PV struct ure and function. Aorta Aortic root size (SInus of Valsalva diameter) is normal . Pericardium No pericardial e ffusion is visualized. IVC/SVC/PA/PV/Pleural Pulmonary vein f low is consistent with increased LAP . The estimated RA pressure by IVC dynamics 5-10mmHg . Chambers/Structures Left Atrium LA Volume: 83.11 ml LA Area: 24.24 cm^2 LA Vol. Index: 46 ml/m^2 Left Ventricle LVIDd: 4.85 cm LV Septum Diastolic: 1.36 cm LV PW Diastolic: 0.98 cm LVEDV Greer's:90.48 ml LV Length: 8.97 cm LVESV Greer's:37.8 ml LVEF Greer's: 58.2 % LVEDVI: 50 ml/m^2 LVESVI: 21 ml/m^2 LVOT Diameter: 2.07 cm Right Atrium RA Vol. (Sngl Plane): 40 ml Right Ventricle TAPSE: 1.77 cm Aorta Ao Root S of Nneka.: 3.52 cm Doppler/Quantitative Measurements Mitral Valve MV Peak E-Wave: 0.87 m/s M V Peak A-Wave: 0.57 m/s E /A Ratio: 1.52 P eak Gradient: 3.06 mmHg D eceleration Time: 195.2 msec MV Brad. Peak: Tissue Doppler E' Lateral Velocity: 0.05 m/s E /E': 17.18 Aortic Valve Peak Velocity: 1.13 m/s Mean Velocity: 0.77 m/s Peak Gradient: 5.09 mmHg Mean Gradient: 2.8 mmHg AV Area (continuity): 2.94 cm^2 AV VTI: 24.29 cm AV DVI: 0.87 LVOT Peak Velocity: 1.06 m/s Pea k Gradient: 4.57 mmHg Mean Velocity: 0.69 m/s Caitlin n Gradient: 2.26 mmHg LVOT Diameter: 2.07 cm LVO T VTI: 21.22 cm LVOT Area: 3.37 cm^2 LVO T SV:71.38 ml LVOT CO: 4.78 l/min LVO T CI: 2.63 l/min/m^2 Performing Organization Address City/State/Zipcode Phone Number [facility] ECHO HEARTLAB MKCKESSON CPACS CBC with platelet count + automated diff (06/10/2019 4:09 AM CDT)Only the most recent of2 resultswithin the time period is included. WBC 18.5 (H) 3.5 - 10.5 K/L [facility] RBC 3.90 (L) 4.63 - 6.08 M/L [facility] Hemoglobin 12.0 (L) 13.7 - 17.5 GM/DL [facility] Hematocrit 37.0 (L) 40.1 - 51.0 % [facility] MCV 94.9 (H) 79.0 - 92.2 fL [facility] MCH 30.8 25.7 - 32.2 pg [facility] MCHC 32.4 32.3 - 36.5 GM/DL [facility] RDW 14.2 11.6 - 14.4 % [facility] Platelets 195 150 - 450 K/CU MM [facility] MPV 11.5 9.4 - 12.4 fL [facility] nRBC 0 0 - 0 /100 WBC [facility] % Neutros 83 % [facility] % Lymphs 10 % [facility] % Monos 7 % [facility] % Eos 1 % [facility] % Baso 0 % [facility] # Neutros 15.28 (H) 1.78 - 5.38 K/L [facility] # Lymphs 1.77 1.32 - 3.57 K/L [facility] # Monos 1.20 (H) 0.30 - 0.82 K/L [facility] # Eos 0.09 0.04 - 0.54 K/L [facility] # Baso 0.05 0.01 - 0.08 K/L [facility] Immature 1 0 - 1 % [facility] Granulocytes-Relative [facility] Specimen Blood Performing Organization Address City/[facility]/Zipcode Phone Number [address] [address] [place] Lactic acid, venous, Daily (06/10/2019 4:09 AM CDT)Only the most recent of2 resultswithin the time period is included. Lactate, Venous 1.1 0.5 - 2.2 mmol/L [facility] Specimen Blood Performing Organization Address City/[facility]/Zipcode Phone Number [address] [address] [place] Magnesium (06/10/2019 4:09 AM CDT)Only the most recent of2 resultswithin the time period is included. Magnesium 2.1 1.6 - 2.6 mg/dL [facility] Specimen Blood Performing Organization Address City/[facility]/Zipcode Phone Number [address] [address] [place] Lipid panel (06/10/2019 4:09 AM CDT) Triglycerides 97 mg/dL [facility] Cholesterol 124 mg/dL [facility] HDL 34 mg/dL [facility] LDL Calculated 71 mg/dL [facility] Specimen Blood Narrative Performed At Triglyceride Reference Range: [facility] Low Risk <150 [id number] High Risk 200-499 Very High Risk>=500 Cholesterol Reference Range: Low Risk <200 [id number] High Risk>240 HDL Cholesterol Reference Range: Low Risk >=60 High Risk <40 LDL Cholesterol Reference Range: Optimal<100 Near [id number] Very High >=190 Performing Organization Address [facility] Cent[facility] Phone Number [address] [address] [place] Oxygen saturation, measured (06/10/2019 2:44 AM CDT) O2 Saturation (Measured) 86.6 % [facility] Specimen Blood Narrative Performed At If patient has internal jugular ( IJ) or [facility] subclavian central line or PICC line. Draw from distal port. Label as central venous oxygen. Performing Organization Address [facility] Phone Number [address] [address] [place] Urinalysis w/Microscopic + Reflex to Culture (06/10/2019 2:29 AM CDT) Color, UA Yellow [facility] Clarity, UA Hazy [facility] Specific [place], UA 1.030 1.001 - 1.[address] [facility] pH, UA 5.5 5.0 - 8.0 [facility] Protein, UA 70 mg/dL (A) Negative [facility] Glucose, UA 200 mg/dL (A) Negative [facility] Ketones, UA Trace (A) Negative [facility] Bilirubin, UA Negative Negative [facility] Blood, UA Negative Negative [facility] Nitrite, UA Negative Negative [facility] Leukocytes, UA Large (A) Negative [facility] Urobilinogen, UA 2.0 (H) 0.2 - 1.0 mg/dL [facility] RBC, UA 7 /HPF [facility] WBC, UA 135 /HPF [facility] Mucus Occasional [facility] Squam Epithel, UA 10 /HPF [facility] Hyaline Casts, UA 18 /LPF [facility] Specimen Source [facility] Specimen Urine Performing Organization Address City/[facility] Cent[facility] Phone Number [address] [address] [place] Urine culture (06/10/2019 2:29 AM CDT) Result No growth [facility] Specimen Urine Performing Organization Address [facility] Phone Number [address] [address] [place] Blood gas, arterial (06/09/2019 10:10 PM CDT) pH, Arterial 7.41 7.35 - 7.45 [facility] pCO2, Arterial 38 35 - 45 mmHg [facility] pO2, Arterial 87 80 - 90 mmHg [facility] O2 Sat, Arterial 96.8 96.0 - 97.0 % [facility] HCO3, Arterial 24 21 - 29 mmol/L [facility] Base Excess, Arterial -0.7 -2.0 - 3.0 mmol/L [facility] Patient Temperature 37.0 C [facility] FIO2 21.0 % [facility] Specimen Blood, Arterial Performing Organization Address City/[facility] Cent[facility] Phone Number [address] [address] CENTER aPTT (06/09/2019 10:06 PM CDT) PTT 27.3 22.5 - 36.0 seconds [facility] Specimen Blood Performing Organization Address [facility] Centercosd Phone Number [address] [address] CENTER Prothrombin time/INR (06/09/2019 10:06 PM CDT) Protime 13.9 11.9 - 14.2 seconds [facility] INR 1.1 <=5.9 [facility] Specimen Blood Narrative Performed At Effective 03/22/2019: PT Reference Range [facility] Change New: 11.9-14.2Previous: 11.7-14.7 RECOMMENDED COUMADIN/WARFARIN INR THERAPY RANGES STANDARD DOSE: 2.0-3.0Includes: PROPHYLAXIS for venous thrombosis, systemic embolization; TREATMENT for venous thrombosis and/or pulmonary embolus. HIGH RISK: Target INR is 2.5-3.5 for patients wiht mechanical heart valves. Performing Organization Address [facility] Centercode Phone Number [address] [address] CENTER Fibrinogen (06/09/2019 10:06 PM CDT) Fibrinogen 300 225 - 434 mg/dl [facility] Specimen Blood Performing Organization Address City/[facility]/Zipcode Phone Number [address] [address] CENTER Phosphorus (06/09/2019 9:54 PM CDT) Phosphorus 3.4 2.3 - 4.7 mg/dL [facility] Specimen Blood Performing Organization Address [facility] Centercode Phone Number [address] [address] CENTER Lipase (06/09/2019 9:54 PM CDT) Lipase 38 8 - 78 U/L [facility] Specimen Blood Performing Organization Address City/[facility]/Zipcode Phone Number [address] [address] CENTER POC-Lactic Acid, Venous (06/09/2019 9:49 PM CDT) POC-Lactic Acid, Venous 1.6Comment: TESTED AT 0.9 - 1.7 mmol/L [facility] [address] [facility] [address] Specimen Blood Performing Organization Address City/[facility]/Zipcode Phone Number [facility] [address] [place] [address] [place] after 03/02/2019 Insurance Payer Benefit Plan / Group Subscriber ID Type Phone A ddress [employer] - MEDICARE UNITED MEDICARE HMO xxxxxxxxx [facility] [place] ([place]) [place] [address] Advance Directives For more information, please contact:[address] [phone] Code Status Date Activated Date Inactivated Comments Full Code 06/13/2019 3:55 PM 06/15/2019 4:22 PM This code status was determined by: Patient Full Code 06/09/2019 4:41 PM 06/13/2019 3:55 PM This code status was determined by: Patient Full Code 05/08/2018 5:23 PM 05/12/2018 6:15 PM This code status was determined by: Patient Full Code 01/23/2016 10:38 AM 01/29/2016 2:32 PM This code status was determined by: Patient Full Code 01/22/2016 1:26 PM 01/23/2016 10:38 AM This code status was determined by: Patient
--- OUTSIDE RECORDS SUMMARY | 2020-03-02 23:30 | XMS REPORT ---
:1960 Author Organization eClinicalWorks Care Team Providers Name Role Phone Heard, Na Provider Role Unavailable Allergies, Adverse Reactions, Alerts Substance Reaction Event Type penicillin rash Drug Allergy Cephalosporins vomiting Non Drug Allergy Problems Problem Type Condition Code Onset Dates Condition Statu s Problem Acute myocardial infarction, I21.4 Active subendocardial infarction Problem Follow-up exam Z09 Active Problem Primary insomnia F51.01 Active Problem Pulmonary emphysema, unspecified J43.9 Active emphysema type Problem Chronic generalized pain R52 Act alberto Problem Pure hypercholesterolemia E78.00 Ac tive Assessment Hypertensive emergency, no CHF I16.1 Active Problem Hyperlipidemia E78.5 Active Problem Essential hypertension I10 Activ e Problem HTN (hypertension) I10 Active Problem Abdominal pain R10.9 Active Problem Atherosclerotic heart disease of I25.10 Active [place] coronary artery without angina pectoris Problem Symptomatic hypotension I95.89 Acti ve Problem Left foot pain M79.672 Active Problem Hospital discharge follow-up Z09 Active Problem Simple chronic bronchitis J41.0 Ac tive Problem Other specified urinary N39.498 Acti ve incontinence Problem Moderately severe major depression F32.2 Active Problem Panic attacks F41.0 Active Problem Hypertensive emergency I16.1 Activ e Problem Closed displaced fracture of first S92.312S Active metatarsal bone of left foot, sequela Assessment Bipolar 1 disorder F31.9 Active Problem Malignant hypertensive urgency I16.0 Active Problem Atrial fibrillation, unspecified I48.91 Active type Assessment Moderately severe major depression F32.2 Active Problem Cirrhosis of liver without K74.60 A ctive ascites, unspecified hepatic cirrhosis type Assessment Cirrhosis of liver without K74.60 A ctive ascites, unspecified hepatic cirrhosis type Problem Chronic hepatitis C without B18.2 Active hepatic coma Assessment Panic attacks F41.0 Active Problem Benign prostatic hyperplasia with N40.1 Active lower urinary tract symptoms Assessment Dementia without behavioral F03.90 Active disturbance, unspecified dementia type Problem Complaints of memory disturbance R41.3 Active Problem Arteriosclerotic cardiovascular I25.10 Active disease (ASCVD) Problem Dementia without behavioral F03.90 Active disturbance, unspecified dementia type Problem Chronic depressive person F34.1 Ac tive Problem Cigarette nicotine dependence F17.210 Active without complication Assessment Malignant hypertensive urgency I16.0 Active Problem History of coronary artery disease Z86.79 Active Problem Chest pain, unspecified type R07.9 Active Assessment Chronic hepatitis C without B18.2 Active hepatic coma Problem Lumbar degenerative disc disease M51.36 Active Assessment Chest pain at rest R07.9 Active Problem Bipolar 1 disorder F31.9 Active Problem Elevated blood pressure reading R03.0 Active Problem Constipation, unspecified K59.00 Ac tive constipation type Medications Medication Code Code Instructions Start End Status Dosage System Date Date Isosorbide [facility] 87737721387 30 MG Orally Active 1 ta blet Mononitrate ER Once a day in the morning Citalopram ND 90852358846 20 MG Orally Active 1 ta blet Hydrobromide Once a day Amlodipine Besylate ND 27795481144 10 MG Orally Aug 22, Act alberto 1 tablet Once a day 2017 Lorazepam ND 24477239562 0.5 MG Orally Active 1 ta blet Once a day prn as needed anxiety /panic attacks Lisinopril ND 10122323065 20 MG Orally Active 1 ta blet Once a day Hydrochlorothiazide ND 89495698808 25 MG Orally Act alberto 1 tablet Once a day in the morning Gabapentin [facility] [address]-42 600 MG Orally Active 1 tablet three times a day Losartan Potassium ND 92965488283 25 MG Orally Acti ve 1 tablet Once a day Aspir-81 [facility] 10192858416 81 MG Orally Active 1 tabl et Once a day Carvedilol ND 45535927105 25 MG Orally Active as directed Amiodarone HCl ND 09284673597 200 MG Orally Active 1 tablet Once a day Dulera ND 15798860538 100-5 MCG/ACT Active 2 puff s Inhalation Twice a day Ipratropium [place] ND 91948842843 0.02 % March 07, Active as Inhalation 1 2018 directed vial Three times a day Albuterol Sulfate ND 61772621329 (2.5 MG/3ML) March 07, Activ e inhale 1 0.083% 2019 vial by mouth via nebulizer 3 times a day [place] Carbonate ND 05727072797 600 MG Orally Acti ve 1 capsule Once a day at bedtime Ranolazine ER [facility] 97773512926 500 MG Orally Active 2 tablet Twice a day Amitriptyline HCl [facility] 66317253376 50 MG Orally Activ e 1 tablet Once a day Clonidine HCl [facility] 04227095829 0.2 MG Orally March Active 1 tablet twice a day 27, twice x 1 2018 week then 1 tablet [place] [facility] 91373761709 10-325 MG Active 1 tablet Orally every 6 as needed hrs HydrALAZINE HCl [facility] 54946891526 25 MG Orally Active 1 tablet every 12 hrs with food Atorvastatin Calcium [facility] 96525549408 20 MG Orally Ac tive 1 tablet Once a day Results No Known Results Summary Purpose eClinicalWorks Submission
--- OUTSIDE RECORDS SUMMARY | 2020-03-02 23:30 | XMS REPORT ---
[...] alberto Problem Pure hypercholesterolemia E78.00 Ac tive Problem Hyperlipidemia E78.5 Active Problem Essential hypertension I10 Activ e Problem HTN (hypertension) I10 Active Problem Abdominal pain R10.9 Active Problem Atherosclerotic heart disease of I25.10 Active [place] coronary artery without angina pectoris Problem Symptomatic [...] metatarsal bone of left foot, sequela Problem Malignant hypertensive urgency I16.0 Active Problem Atrial fibrillation, unspecified I48.91 Active type Problem Cirrhosis of liver without K74.60 A ctive ascites, unspecified hepatic cirrhosis type Problem Chronic hepatitis C without B18.2 Active hepatic coma Problem Benign prostatic hyperplasia with N40.1 Active lower urinary tract symptoms Problem Complaints of memory disturbance R41.3 Active Problem Arteriosclerotic cardiovascular I25.10 Active disease (ASCVD) Problem Dementia without behavioral F03.90 Active disturbance, unspecified dementia type Problem Chronic depressive person F34.1 Ac tive Problem Cigarette nicotine dependence F17.210 Active without complication Problem History of coronary artery disease Z86.79 Active Problem Chest pain, unspecified type R07.9 Active Problem Lumbar degenerative disc disease M51.36 Active Problem Bipolar 1 disorder F31.9 Active Problem Elevated blood pressure reading R03.0 Active Problem Constipation, unspecified K59.00 Ac tive constipation type Medications No Known Medications Results No Known Results Summary Purpose eClinicalWorks Submission
--- OUTSIDE RECORDS SUMMARY | 2020-03-02 23:30 | XMS REPORT ---
[...] Problem Atherosclerotic heart disease of I25.10 Active [place] coronary artery without angina pectoris Problem Symptomatic [...] Start End Status Dosage System Date Date Ipratropium [place] ND 51356980329 0.02 % March 07, Active as Inhalation 1 2018 directed vial Three times a day Dulera ND 99628032605 100-5 MCG/ACT Active 2 puff s Inhalation Twice a day Amitriptyline HCl ND 24524964485 50 MG Orally Activ e 1 tablet Once a day Lorazepam ND 67840556104 0.5 MG Orally Active 1 ta blet Once a day prn as needed anxiety /panic attacks Citalopram ND 91769198215 20 MG Orally Active 1 ta blet Hydrobromide Once a day HydrALAZINE HCl ND 69719403898 25 MG Orally Active 1 tablet every 12 hrs with food Hydrochlorothiazide ND 15044800481 25 MG Orally Act alberto 1 tablet Once a day in the morning Albuterol Sulfate [facility] 04200836905 (2.5 MG/3ML) March 07, Activ e inhale 1 0.083% 2018 vial by mouth via nebulizer 3 times a day Gabapentin ND 20022457313 600 MG Orally Active 1 t ablet three times a day Atorvastatin Calcium ND 82603991554 20 MG Orally Ac tive 1 tablet Once a day [place] Carbonate ND 84086852547 600 MG Orally Acti ve 1 capsule Once a day at bedtime Carvedilol ND 46801655490 25 MG Orally Active as directed [place] ND 41690604432 10-325 MG Active 1 tablet Orally every 6 as needed hrs Isosorbide ND 68650725978 30 MG Orally Active 1 ta blet Mononitrate ER Once a day in the morning Amlodipine Besylate ND 84862712897 10 MG Orally Aug 22, Act alberto 1 tablet Once a day 2017 Clonidine HCl ND 61069290969 0.2 MG Orally March Active 1 tablet twice a day , twice x 1 2018 week then 1 tablet Amiodarone HCl ND 97948940738 200 MG Orally Active 1 tablet Once a day Ranolazine ER ND 97067403702 500 MG Orally Active 2 tablet Twice a day Lisinopril ND 76472700255 20 MG Orally Active 1 ta blet Once a day Zofran ND 64416163400 4 MG Orally December Active as neede d every 8hrs prn 19, for nause a nausea 2019 Aspir-81 [facility] 59611536687 81 MG Orally Active 1 tabl et Once a day Losartan Potassium [facility] 56512119194 25 MG Orally Acti ve 1 tablet Once a day Results No Known Results Summary Purpose eClinicalWorks Submission
--- OUTSIDE RECORDS SUMMARY | 2020-03-02 23:30 | XMS REPORT ---
[...] Problem Atherosclerotic heart disease of I25.10 Active [place] coronary artery without angina pectoris Problem Symptomatic [...] nicotine dependence F17.210 Active without complication Assessment Cirrhosis of liver without K74.60 A ctive ascites, unspecified hepatic cirrhosis type Problem History of coronary artery disease Z86.79 Active Problem Chest pain, unspecified type R07.9 Active Problem Lumbar degenerative disc disease M51.36 Active Problem Bipolar 1 disorder F31.9 Active Problem Elevated blood pressure reading R03.0 Active Problem Constipation, unspecified K59.00 Ac tive constipation type Medications Medication Code System Code Instructions Start Date End Date Status Dosage Lactulose [facility] 74490761125 20 GM/30ML Orally Active 30 ml Once a day Results No Known Results Summary Purpose eClinicalWorks Submission
--- OUTSIDE RECORDS SUMMARY | 2020-03-02 23:30 | XMS REPORT ---
:1960 Author Organization eClinicalWorks Care Team Providers Name Role Phone Heard, Na Provider Role Unavailable Allergies, Adverse Reactions, Alerts Substance Reaction Event Type penicillin rash Drug Allergy Cephalosporins vomiting Non Drug Allergy Problems Problem Type Condition Code Onset Dates Condition Statu s Problem Follow-up exam Z09 Active Problem Chronic depressive person F34.1 Ac tive Problem Pulmonary emphysema, unspecified J43.9 Active emphysema type Problem Acute myocardial infarction, I21.4 Active subendocardial infarction Problem Primary insomnia F51.01 Active Problem Chronic generalized pain R52 Act alberto Problem Pure hypercholesterolemia E78.00 Ac tive Problem Hyperlipidemia E78.5 Active Problem Essential hypertension I10 Activ e Problem HTN (hypertension) I10 Active Problem Bipolar 1 disorder F31.9 Active Problem Atherosclerotic heart disease of I25.10 Active [place] coronary artery without angina pectoris Problem Abdominal pain R10.9 Active Problem Symptomatic hypotension I95.89 Acti ve Problem Other specified urinary N39.498 Acti ve incontinence Problem Hospital discharge follow-up Z09 Active Problem Panic attacks F41.0 Active Problem Benign prostatic hyperplasia with N40.1 Active lower urinary tract symptoms Problem Closed displaced fracture of first S92.312S Active metatarsal bone of left foot, sequela Problem Atrial fibrillation, unspecified I48.91 Active type Assessment Cirrhosis of liver without K74.60 A ctive ascites, unspecified hepatic cirrhosis type Problem Moderately severe major depression F32.2 Active Problem Left foot pain M79.672 Active Assessment Panic attacks F41.0 Active Problem Chronic hepatitis C without B18.2 Active hepatic coma Assessment Dementia without behavioral F03.90 Active disturbance, unspecified dementia type Problem Simple chronic bronchitis J41.0 Ac tive Problem Complaints of memory disturbance R41.3 Active Problem Cirrhosis of liver without K74.60 A ctive ascites, unspecified hepatic cirrhosis type Problem Chest pain, unspecified type R07.9 Active Problem Arteriosclerotic cardiovascular I25.10 Active disease (ASCVD) Problem Dementia without behavioral F03.90 Active disturbance, unspecified dementia type Assessment Chronic hepatitis C without B18.2 Active hepatic coma Problem Hypertensive emergency I16.1 Activ e Assessment HTN (hypertension) I10 Active Problem History of coronary artery disease Z86.79 Active Assessment Moderately severe major depression F32.2 Active Problem Constipation, unspecified K59.00 Ac tive constipation type Assessment Bipolar 1 disorder F31.9 Active Problem Lumbar degenerative disc disease M51.36 Active Problem Cigarette nicotine dependence F17.210 Active without complication Problem Elevated blood pressure reading R03.0 Active Medications Medication Code Code Instructions Start End Status Dosage System Date Date Amlodipine Besylate ND 65896749148 10 MG Orally Aug 22, Act alberto 1 tablet Once a day 2017 [place] [facility] 21893015451 10-325 MG Active 1 tablet Orally every 6 as needed hrs Isosorbide ND 42028498793 30 MG Orally Active 1 ta blet Mononitrate ER Once a day in the morning - [facility] 71409072385 81 MG Orally Active 1 tabl et Once a day Lorazepam ND 50791145072 0.5 MG Orally Active 1 ta blet Once a day prn as needed anxiety /panic attacks Amitriptyline HCl ND 23583436644 50 MG Orally Aug 22, Activ e 1 tablet Once a day 2017 Clonidine HCl ND 92305529461 0.1 MG Orally Aug 22, Active 1 tablet Twice a day 2017 at bedtime Carvedilol ND 84970448223 25 MG Orally Active as directed Losartan Potassium ND 50060144975 25 MG Orally Acti ve 1 tablet Once a day Ipratropium [place] [facility] 45588881999 0.02 % March 07, Active as Inhalation 2018 directed vial Three times a day Amitriptyline HCl [facility] 59011979158 50 MG Orally Activ e 1 tablet Once a day Cyclobenzaprine HCl ND 21489379398 10 MG Orally Act alberto 1 tablet Three times a as needed day Clonidine HCl ND 84346240564 0.1 MG Orally March Active 2 tablet twice , twice x 1 2017 week then 1 tablet twice a day for 1 week. Dulera [facility] 38301973898 100-5 MCG/ACT Active 2 puff s Inhalation Twice a day Lisinopril ND 20589463853 40 MG Orally Active 1 ta blet Once a day Ranolazine ER [facility] 40571295194 500 MG Orally Active 2 tablet Twice a day Amiodarone HCl ND 45168456066 200 MG Orally Active 1 tablet Once a day Lactulose ND 61056917064 20 GM/30ML Oct Active 30 ml Orally Once a 2018 Hydrochlorothiazide ND 76222335724 25 MG Orally Act alberto 1 tablet Once a day in the morning [place] Carbonate ND 26056972166 600 MG Orally Acti ve 1 capsule Once a day at bedtime Albuterol Sulfate [facility] 89865777814 (2.5 MG/3ML) March 07 e inhale 1 0.083% 2018 vial by mouth via nebulizer 3 times a day Citalopram ND 87697257805 20 MG Orally Active 1 ta blet Hydrobromide Once a day Atorvastatin Calcium ND 77607044395 20 MG Orally Ac tive 1 tablet Once a day HydrALAZINE HCl ND 82583154064 25 MG Orally Active 1 tablet every 12 hrs with food Coreg [facility] 70919304646 12.5 MG Orally Active 2 tab s bid Results No Known Results Summary Purpose eClinicalWorks Submission
--- OUTSIDE RECORDS SUMMARY | 2020-03-02 23:30 | XMS REPORT ---
[...] Problem Atherosclerotic heart disease of I25.10 Active [place] coronary artery without angina pectoris Problem Symptomatic [...]
--- OUTSIDE RECORDS SUMMARY | 2020-03-02 23:30 | XMS REPORT ---
:1960 Author Organization [facility] t Address [address] [place] [address] Care Team Providers Name Role Phone MADHURI DWYER Unavailable Unavailable Divina CATHERINE Unavailable Unavailable Payers Payer Name Policy Type Policy Number Effective Date Expiration D ate Problems Condition Condition Condition Status Onset Resolution Last Treatin g Comments Name Details Category Date Date Treatment Clinician Date Atrial Atrial Problem Active fibrillatio fibrillatio n, n, unspecified unspecified type type Primary Primary Problem Active insomnia insomnia Left foot Left foot Problem Active pain pain Chronic Chronic Problem Active generalized generalized pain pain Closed Closed Problem Active displaced displaced fracture of fracture of first first metatarsal metatarsal bone of bone of left foot, left foot, sequela sequela Arterioscle Arterioscle Problem Active 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) HTN HTN Diagnosis Active (hypertensi (hypertensi on) on) Pure Pure Problem Active hypercholes hypercholes terolemia terolemia Dementia Dementia Problem Active without without behavioral behavioral disturbance disturbance , , unspecified unspecified dementia dementia type type Cigarette Cigarette Problem Active nicotine nicotine dependence dependence without without complicatio complicatio n n Hyperlipide Hyperlipide Problem Active mely meyl Elevated Elevated Problem Active blood blood pressure pressure reading reading Abdominal Abdominal Problem Active pain pain Pulmonary Pulmonary Diagnosis Active emphysema, emphysema, unspecified unspecified emphysema emphysema type type Acute Acute Problem Active myocardial myocardial infarction, infarction, subendocard subendocard ial ial infarction infarction Chronic Chronic Problem Active depressive depressive person person Hospital [facility] Problem Active discharge discharge follow-up follow-up Constipatio Constipatio Problem Active n, n, unspecified unspecified constipatio constipatio n type n type History of History of Problem Active coronary coronary artery artery disease disease Hypertensiv Hypertensiv Problem Active e emergency e emergency Chest pain, Chest pain, Problem Active unspecified unspecified type type Lumbar Lumbar Problem Active degenerativ degenerativ e disc e disc disease disease Bipolar 1 Bipolar 1 Problem Active disorder disorder Symptomatic Symptomatic Problem Active hypotension hypotension Other Other Problem Active specified specified urinary urinary incontinenc incontinenc e e Panic Panic Diagnosis Active attacks attacks Benign Benign Problem Active prostatic prostatic hyperplasia hyperplasia with lower with lower urinary urinary tract tract symptoms symptoms Moderately Moderately Diagnosis Active severe severe major major depression depression Chronic Chronic Problem Active hepatitis C hepatitis C without without hepatic hepatic coma coma Simple Simple Problem Active chronic chronic bronchitis bronchitis Cirrhosis Cirrhosis Problem Active of liver of liver without without ascites, ascites, unspecified unspecified hepatic hepatic cirrhosis cirrhosis type type Complaints Complaints Problem Active of memory of memory disturbance disturbance Malignant Malignant Problem Active hypertensiv hypertensiv e urgency e urgency Allergies, Adverse Reactions, Alerts Allergy Name Allergy Status Severity Reaction(s) Onset Inactive Treat ing Comments Type Date Date Clinician Penicillins DA Active SV - 00:00: 00 codeine DA Active SV - 00:00: 00 penicillin Adverse Active rash Reaction Cephalosporins Adverse Active vomiting Reaction Medications Ordered Filled Start Stop Current Ordering Indication Dosage Frequency Signature Comments Components Medication Medication Date Date Medication? Clinician (SIG) Name Name Irinasaige Buddy Yes Na Heard as needed 3-19 for nausea 00:00: 00 Albuterol Albuterol Yes Na Heard inhale 1 Sulfate Sulfate 5-14 vial by 00:00: mouth via 00 nebulizer 3 times a day Ipratropium Ipratropium Yes Na Heard as Bowler Bowler 5-14 directed 00:00: 00 Amlodipine Amlodipine 2017-10 Yes Na Heard 1 table t Besylate Besylate 0-29 00:00: 00 Clonidine Clonidine Yes Na Heard 1 tablet HCl HCl 6-27 twice x 1 00:00: week then 00 1 tablet Amitriptyli Amitriptyli Yes Na Heard 1 tabl et ne HCl ne HCl Dulera Dulera Yes Na Heard 2 puffs Amiodarone Amiodarone Yes Na Heard 1 tablet HCl HCl Aspir-81 Aspir-81 Yes Na Heard 1 tablet Isosorbide Isosorbide Yes Na Heard 1 tablet Mononitrate Mononitrate in the ER ER morning [place] Yes Na Heard 1 capsule Carbonate Carbonate at bedtime Atorvastati Atorvastati Yes Na Heard 1 tabl et n Calcium n Calcium Losartan Losartan Yes Na Heard 1 tablet Potassium Potassium Gabapentin Gabapentin Yes Na Heard 1 tablet Carvedilol Carvedilol Yes Na [facility]ard as directed HydrALAZINE HydrALAZINE Yes Na [facility] 1 tabl et HCl HCl with food Citalopram Citalopram Yes Na Heard 1 tablet Hydrobromid Hydrobromid e e Lorazepam Lorazepam Yes Na [facility]ard 1 tablet as needed [place] Yes Na Heard 1 tablet as needed Hydrochloro Hydrochloro Yes Na Heard 1 tabl et thiazide thiazide in the morning Ranolazine Ranolazine Yes Na Heard 2 tablet ER ER Lisinopril Lisinopril Yes Na [facility]ard 1 tablet Encounters Start End Encounter Admission Attending Care Care Encounter Date/Time Date/Time Type Type Clinicians Facility Department ID 2020-02-12 2020-02-12 [facility] [id number] 11:15:00 11:15:00 [facility] 2020-01-26 2020-01-26 [facility] [id number] 11:20:00 11:20:00 [facility] 2020-01-11 2020-01-11 [facility] [id number] 15:32:00 15:32:00 [facility] 2020-01-03 2020-01-03 [facility] [id number] 09:20:00 09:20:00 [facility] 2020-01-02 2020-01-02 Outpatient [facility] [id number] 09:54:00 09:54:00 2019-11-13 2019-11-13 [facility] [id number] 14:13:00 14:13:00 Specialty[facility]U [facility] 2019-11-01 2019-11-01 [facility] [id number] 09:20:00 09:20:00 [place] [facility] 2019-10-27 2019-10-27 Outpatient [facility] [id number] 08:50:00 08:50:00 2019-09-05 2019-09-05 [facility] [id number] 09:29:00 09:29:00 [place] [facility] 2019-05-31 2019-05-31 [facility] [id number] 12:00:00 12:00:00 [place] [facility] Medicine 2019-05-30 2019-05-30 [facility] [id number] 15:00:00 15:00:00 [place] [facility] 2019-04-26 2019-04-26 [facility] [id number] 15:09:00 15:09:00 [place] [facility] 2019-03-30 2019-03-30 [facility] [id number] 15:40:00 15:40:00 [place] [facility] Medicine 2019-02-23 2019-02-23 Outpatient E [facility]SE MED [id number] 15:40:00 15:40:00 2019-01-10 2019-01-10 [facility] [id number] 08:41:00 08:41:00 [place] [facility] 2018-12-12 2018-12-12 [facility] [id number] 08:15:00 08:15:00 [place] [facility] Medicine 2018-07-27 2018-07-27 [facility] [id number] 15:15:00 15:15:00 [place] [facility] 2018-06-09 2018-06-09 [facility] [id number] 08:00:00 08:00:00 [place] [facility] 2018-05-31 2018-05-31 [facility] [id number] 09:00:00 09:00:00 [place] [facility] 2018-04-20 2018-04-20 [facility] [id number] 09:45:00 09:45:00 [facility] 2018-04-15 2018-04-15 [facility] [place] [facility] [id number] 15:26:00 15:26:00 [facility] 2018-03-15 2018-03-15 [facility] [id number] 15:15:00 15:15:00 [facility] 2018-02-28 2018-02-28 [facility] [place] [facility] [id number] 09:15:00 09:15:00 [facility] Results Test Description Test Time Test Comments Text Results Atomic Results Result Comments BASIC METABOLIC PANEL 2019-11-04 06:36:00 Test Item Value Reference Range Comments SODIUM (test code = NA) 141 mmol/L 134-147 POTASSIUM (test code = K) 3.7 mmol/L 3.4-5.0 CHLORIDE (test code = CL) 108 mmol/L 100-108 CARBON DIOXIDE (test code = CO2) 27 mmol/L 21-32 ANION GAP (test code = GAP) 6.0 GAP calc 4.0-15.0 GLUCOSE (test code = GLU) 98 MG/DL 70-110 BLOOD UREA NITROGEN (test code = BUN) 14 MG/DL 7-18 GLOMERULAR FILTRATION RATE (test code = GFR) >=60 max estimate e stGFR >60 CREATININE (test code = CREAT) 1.1 MG/DL 0.8-1.3 CALCIUM (test code = CA) 8.9 MG/DL 8.5-10.1 CBC W/AUTO [id number] 06:32:00 Test Item Value Reference Range Comments WHITE BLOOD CELL (test code = WBC) 10.3 K/mm3 3.5-11.0 RED BLOOD CELL (test code = RBC) 4.53 M/mm3 4.70-6.10 HEMOGLOBIN (test code = HGB) 14.0 G/DL 12.3-15.9 HEMATOCRIT (test code = HCT) 42.2 % 35.8-46.7 MEAN CELL VOLUME (test code = MCV) 93.2 Fl 86.3-98.9 MEAN CELL HGB (test code = MCH) 30.9 pg 28.9-34.4 MEAN CELL HGB CONCETRATION (test code = MCHC) 33.2 G/DL 32 .1-34.5 RED CELL DISTRIBUTION WIDTH (test code = RDW) 13.9 SD 11 .5-14.5 PLATELET COUNT (test code = PLT) 226.0 K/mm3 150-450 MEAN PLATELET VOLUME (test code = MPV) 11.30 fL 7.0-9.6 NEUTROPHIL % (test code = NT%) 65.3 % 40-76 LYMPHOCYTE % (test code = LY%) 18.3 % 20.5-51.1 MONOCYTE % (test code = MO%) 10.0 % 1.7-9.3 EOSINOPHIL % (test code = EO%) 6.1 % 0.0-6.0 BASOPHIL % (test code = BA%) 0.3 % 0.0-2.0 NEUTROPHIL # (test code = NT#) 6.72 K/mm3 1.8-7.6 LYMPHOCYTE # (test code = LY#) 1.9 K/mm3 0.6-3.0 MONOCYTE # (test code = MO#) 1.0 K/mm3 0.2-1.5 EOSINOPHIL # (test code = EO#) 0.6 K/mm3 0.0-0.4 BASOPHIL # (test code = BA#) 0.0 K/mm3 0.0-0.2 MANUAL DIFF REQUIRED (test code = MDIFF) NO DIFF/SCN CRITERI A COMPREHENSIVE METABOLIC [id number] 06:08:00 Test Item Value Reference Range Comments SODIUM (test code = NA) 141 mmol/L 134-147 POTASSIUM (test code = K) 3.6 mmol/L 3.4-5.0 CHLORIDE (test code = CL) 109 mmol/L 100-108 CARBON DIOXIDE (test code = CO2) 29 mmol/L 21-32 ANION GAP (test code = GAP) 3.0 GAP calc 4.0-15.0 GLUCOSE (test code = GLU) 110 MG/DL 70-110 BLOOD UREA NITROGEN (test code = 14 MG/DL 7-18 BUN) GLOMERULAR FILTRATION RATE (test >=60 max estimate estGFR >60 code = GFR) CREATININE (test code = CREAT) 1.1 MG/DL 0.8-1.3 TOTAL PROTEIN (test code = PROT) 7.3 G/DL 6.4-8.2 ALBUMIN (test code = ALB) 3.1 G/DL 3.4-5.0 GLOBULIN (test code = GLOB) 4.2 GM/dL ALBUMIN/GLOBULIN RATIO (test code = 0.7 RATIO 1.2-2.2 A/G) CALCIUM (test code = CA) 8.7 MG/DL 8.5-10.1 BILIRUBIN TOTAL (test code = BILT) 0.70 MG/DL 0.2-1.2 SGOT/AST (test code = AST) 33 Unit/L 15-37 SGPT/ALT (test code = ALT) 28 Unit/L 12-78 ALKALINE PHOSPHATASE TOTAL (test 36 Unit/L 50-136 code = ALKP) CBC W/AUTO [id number] 05:52:00 Test Item Value Reference Range Comments WHITE BLOOD CELL (test code = WBC) 11.4 K/mm3 3.5-11.0 RED BLOOD CELL (test code = RBC) 4.54 M/mm3 4.70-6.10 HEMOGLOBIN (test code = HGB) 14.0 G/DL 12.3-15.9 HEMATOCRIT (test code = HCT) 42.4 % 35.8-46.7 MEAN CELL VOLUME (test code = MCV) 93.4 Fl 86.3-98.9 MEAN CELL HGB (test code = MCH) 30.8 pg 28.9-34.4 MEAN CELL HGB CONCETRATION (test code = MCHC) 33.0 G/DL 32 .1-34.5 RED CELL DISTRIBUTION WIDTH (test code = RDW) 14.2 SD 11 .5-14.5 PLATELET COUNT (test code = PLT) 238.0 K/mm3 150-450 MEAN PLATELET VOLUME (test code = MPV) 11.70 fL 7.0-9.6 NEUTROPHIL % (test code = NT%) 62.7 % 40-76 LYMPHOCYTE % (test code = LY%) 24.1 % 20.5-51.1 MONOCYTE % (test code = MO%) 10.7 % 1.7-9.3 EOSINOPHIL % (test code = EO%) 2.2 % 0.0-6.0 BASOPHIL % (test code = BA%) 0.3 % 0.0-2.0 NEUTROPHIL # (test code = NT#) 7.15 K/mm3 1.8-7.6 LYMPHOCYTE # (test code = LY#) 2.7 K/mm3 0.6-3.0 MONOCYTE # (test code = MO#) 1.2 K/mm3 0.2-1.5 EOSINOPHIL # (test code = EO#) 0.3 K/mm3 0.0-0.4 BASOPHIL # (test code = BA#) 0.0 K/mm3 0.0-0.2 MANUAL DIFF REQUIRED (test code = MDIFF) NO DIFF/SCN CRITERI A PROCALCITONIN (PCT)2019-11-03 03:42:00 Test Item Value Reference Range Comments PROCALCITONIN (PCT) (test < 0.05 ng/mL 0.00-0.05 PROCAL CITONIN (PCT) NORMAL code = PROCAL) RANGE (ADULT): < 0.05 NG/ML. * a concentration <0.5 ng/mL represents a low risk of severe sepsis an d/or septic shock.* a concen tration >2 ng/mL represents a high risk of severe sepsi s and/or septic shock.Nev ertheless, concentrations < 0.5 ng/mL do not exclude anin fection, on account of local ized infections (with outsystemic signs) which can be associated with such lowconcentration s, or a systemic infecti on in its initialstages (< 6 hours). Furthermore, inc reased procalcitonincan occur without infectio n. PCT concentrations b etween 0.5and 2.0 ng/mL should be interpreted taki ng into account thepatie nt's history. It is recommende d to retest PCT within6-24 h ours if any concentrations < 2 ng/mL are obtained. PROCALCITONIN (PCT)2019-11-03 03:42:00 Test Item Value Reference Range Comments PROCALCITONIN (PCT) (test < 0.05 ng/mL 0.00-0.05 PROCAL CITONIN (PCT) NORMAL code = PROCAL) RANGE (ADULT): < 0.05 NG/ML. * a concentration <0.5 ng/mL represents a low risk of severe sepsis an d/or septic shock.* a concen tration >2 ng/mL represents a high risk of severe sepsi s and/or septic shock.Nev ertheless, concentrations < 0.5 ng/mL do not exclude anin fection, on account of local ized infections (with outsystemic signs) which can be associated with such lowconcentration s, or a systemic infecti on in its initialstages (< 6 hours). Furthermore, inc reased procalcitonincan occur without infectio n. PCT concentrations b etween 0.5and 2.0 ng/mL should be interpreted taki ng into account thepatie nt's history. It is recommende d to retest PCT within6-24 h ours if any concentrations < 2 ng/mL are obtained. LACTIC [id number] 16:03:00 Test Item Value Reference Range Comments LACTIC ACID (test code = LACT) 1.0 mmol/L 0.4-2.0 - XR CHEST 1 [id number] 15:59:00 Name: ALHAJI FARAH [place] : 1960 Age/S: 58 / M [id number] Unit #: [id number] Loc: [place] [address] Phys: Jac Leal MD Acct: [id number] Dis Date: Status: ADM IN PHONE #: [phone] Exam Date: 11/02/2019 1556 FAX #: Reason: Fever EXAMS: CPT: [id number] XR CHEST 1 V 29327 Fluoro Time: DAP (Gy m2): Air Kerma (mGy): Portable chest CLINICAL INDICATION: Fever COMPARISON: Examination of one day prior Location E5 Patient is status post median sternotomy and anterior cervical fusion. Minimal linear atelectasis is demonstrated at the left lung base. Lungs are otherwise clear. Heart is normal in size. Bony structures are unremarkable. IMPRESSION: Minimal linear atelectasis at the left lung base, otherwise unchanged at 1559 Reported and signed by: Danielle David MD CC: Jac Leal MD PAGE 1 Signed Report [place]: [place] : 1960 Age/S: 58 / M [id number] Unit #: [id number] Loc: [place] [address] Phys: Jac Leal MD Acct: [id number] Dis Date: Status: ADM IN PHONE #: [phone] Exam Date: 11/02/2019 1556 FAX #: Reason: Fever EXAMS: CPT: [id number] XR CHEST 1 V 29261 Fluoro Time: DAP (Gy m2): Air Kerma (mGy): <Continued> Technologist: Sabine Cross RT(R)(CT) Trnscb Date/Time: 11/02/2019 (4755) [id number] Orig Print D/T: S: 11/02/2019 (0748) PAGE 2 Signed [id number] 04:22:00 Test Item Value Reference Range Comments TROPONIN-I (test code = 0.033 NG/ML 0.000-0.045 Negative : </= 0.045 Positive: >/= TROPI) 0.046 Correlatio n with serial results, other c ardiac markers, and clinical fin dings is necessary to det ermine the clinical signif icance of this result. Quantita tive results using different methodologies should not be co mpared to one another as numer ical results may varyby method. Completed by Nursing: NOBASIC METABOLIC [id number] 04:19:00 Test Item Value Reference Range Comments SODIUM (test code = NA) 140 mmol/L 134-147 POTASSIUM (test code = K) 3.4 mmol/L 3.4-5.0 CHLORIDE (test code = CL) 107 mmol/L 100-108 CARBON DIOXIDE (test code = CO2) 27 mmol/L 21-32 ANION GAP (test code = GAP) 6.0 GAP calc 4.0-15.0 GLUCOSE (test code = GLU) 103 MG/DL 70-110 BLOOD UREA NITROGEN (test code = 15 MG/DL 7-18 BUN) GLOMERULAR FILTRATION RATE (test >=60 max estimate estGFR >60 code = GFR) CREATININE (test code = CREAT) 1.1 MG/DL 0.8-1.3 CALCIUM (test code = CA) 8.1 MG/DL 8.5-10.1 CBC W/AUTO [id number] 04:08:00 Test Item Value Reference Range Comments WHITE BLOOD CELL (test code = WBC) 11.7 K/mm3 3.5-11.0 RED BLOOD CELL (test code = RBC) 4.08 M/mm3 4.70-6.10 HEMOGLOBIN (test code = HGB) 12.6 G/DL 12.3-15.9 HEMATOCRIT (test code = HCT) 37.5 % 35.8-46.7 MEAN CELL VOLUME (test code = MCV) 91.9 Fl 86.3-98.9 MEAN CELL HGB (test code = MCH) 30.9 pg 28.9-34.4 MEAN CELL HGB CONCETRATION (test code = MCHC) 33.6 G/DL 32 .1-34.5 RED CELL DISTRIBUTION WIDTH (test code = RDW) 13.8 SD 11 .5-14.5 PLATELET COUNT (test code = PLT) 235.0 K/mm3 150-450 MEAN PLATELET VOLUME (test code = MPV) 10.90 fL 7.0-9.6 NEUTROPHIL % (test code = NT%) 63.1 % 40-76 LYMPHOCYTE % (test code = LY%) 22.8 % 20.5-51.1 MONOCYTE % (test code = MO%) 10.2 % 1.7-9.3 EOSINOPHIL % (test code = EO%) 3.6 % 0.0-6.0 BASOPHIL % (test code = BA%) 0.3 % 0.0-2.0 NEUTROPHIL # (test code = NT#) 7.34 K/mm3 1.8-7.6 LYMPHOCYTE # (test code = LY#) 2.7 K/mm3 0.6-3.0 MONOCYTE # (test code = MO#) 1.2 K/mm3 0.2-1.5 EOSINOPHIL # (test code = EO#) 0.4 K/mm3 0.0-0.4 BASOPHIL # (test code = BA#) 0.0 K/mm3 0.0-0.2 MANUAL DIFF REQUIRED (test code = MDIFF) NO DIFF/SCN CRITERI A - CTA [id number] 22:57:00 Name: ALHAJI FARAH [facility] : 1960 Age/S: 58 / M [address] Unit #: [id number] Loc: [place] [address] Phys: Jac Leal MD Acct: [id number] Dis Date: Status: ADM IN PHONE #: [phone] Exam Date: 11/01/2019 6237 FAX #: Reason: Chest PAIN EXAMS: CPT: [id number] CTA CHEST 12037 Examination: CTA chest, PE protocol Indication: Chest pain Comparison: None available Location: P14 Technique: Multiple contiguous axial 1.25 mm images were obtained through the lung after administration of IV contrast. Coronal and sagittal maximum intensity projection (MIPs) images were generated.One or more of the following dose reduction techniques were used: Automated exposure control, adjustment of the mA and/or kV according to patient size, and/or utilization of iterative reconstruction technique. Findings: Limited exam secondary to phase of contrast no evidence of acute pulmonary embolism proximal lobar pulmonary arteries. These findings were confirmed on MPR and MIP images. Limited expiratory phase imaging of the lung parenchyma. No evidence of consolidation, mass or pneumothorax. There is likely postsurgical scarring seen posterior aspect of upper portion of the right lower lobe No pleural effusion of pleural thickening. There are no enlarged mediastinal, hilar, supraclavicular or axillary lymph nodes byCT criteria. There is irregular, possibly nodular thickening of the esophagus, recommend further evaluation with endoscopy The heart is enlarged. No pericardial effusion is seen. There are coronary artery calcifications versus stents, please correlate with history The aorta is normal in caliber. Although the evaluation of the aortic root is limited in the absence of gating, the remainder of the aorta remains unremarkable with the exception of aortic calcifications. Limited early arterial phase evaluation of the upper abdomen is unremarkable. PAGE 1 Signed Report (CONTINUED) Name: ALHAJI FARAH [place] : 1960 Age/S: 58 / M [address] [facility] Unit #: [id number] Loc: [place] [address] Phys: Jac Leal MD Acct: [id number] Dis Date: Status: ADM IN PHONE #: [phone] Exam Date: 11/01/2019 6781 FAX #: Reason: Chest PAIN EXAMS: CPT: [id number] CTA CHEST 86181 <Continued> No suspicious or destructive osseous lesions. Impression: Limited exam secondary to phase of contrast no evidence of acute pulmonary embolism proximal lobar pulmonary arteries. There is irregular, possibly nodular thickening of the esophagus, recommend further evaluation with endoscopy Additional findings as detailed above at 2257 Reported and signed by: Katy Dykes M.D. CC: Jac Leal MD Technologist:Curly Logan, RT(R)(CT); .. CTDI: DLP: Trnscb Date/Time: 11/01/2019 (2286) [id number] Orig Print D/T: S: 11/01/2019 (7155) PAGE 2 Signed ReportGLYCOSYLATED HEMOGLOBIN [id number] 17:41:00 Test Item Value Reference Range Comments GLYCOSYLATED HEMOGLOBIN (HA1C) (test code = 6.3 % A1C 4.2- 6.3 GLYHGB) ESTIMATED AVERAGE GLUCOSE (test code = EAG) 134 MG/DLest COMPREHENSIVE METABOLIC [id number] 17:40:00 Test Item Value Reference Range Comments SODIUM (test code = NA) 140 mmol/L 134-147 POTASSIUM (test code = K) 3.3 mmol/L 3.4-5.0 CHLORIDE (test code = CL) 109 mmol/L 100-108 CARBON DIOXIDE (test code = CO2) 27 mmol/L 21-32 ANION GAP (test code = GAP) 4.0 GAP calc 4.0-15.0 GLUCOSE (test code = GLU) 139 MG/DL 70-110 BLOOD UREA NITROGEN (test code = 13 MG/DL 7-18 BUN) GLOMERULAR FILTRATION RATE (test >=60 max estimate estGFR >60 code = GFR) CREATININE (test code = CREAT) 1.2 MG/DL 0.8-1.3 TOTAL PROTEIN (test code = PROT) 7.5 G/DL 6.4-8.2 ALBUMIN (test code = ALB) 3.2 G/DL 3.4-5.0 GLOBULIN (test code = GLOB) 4.3 GM/dL ALBUMIN/GLOBULIN RATIO (test code = 0.7 RATIO 1.2-2.2 A/G) CALCIUM (test code = CA) 8.2 MG/DL 8.5-10.1 BILIRUBIN TOTAL (test code = BILT) 0.40 MG/DL 0.2-1.2 SGOT/AST (test code = AST) 33 Unit/L 15-37 SGPT/ALT (test code = ALT) 25 Unit/L 12-78 ALKALINE PHOSPHATASE TOTAL (test 37 Unit/L 50-136 code = ALKP) LIPID PROFILE (CORONARY RISK)2019-11-01 17:40:00 Test Item Value Reference Range Comments TRIGLYCERIDES (test code = TRIG) 178 MG/DL 0-150 CHOLESTEROL (test code = CHOL) 153 MG/DL 133-200 CHOLESTEROL/HDL RATIO (test code = CHOLHDL) 4.50 RATIO >0 HDL CHOLESTEROL (test code = HDL) 34 MG/DL 40-59 NON-HDL CHOLESTEROL (test code = NHDL) 119 mg/dL <130 LIPOPROTEIN LDL (test code = LDL) 100 MG/DL 0-129 LDL/HDL (test code = LDL/HDL) 2.94 Ratio 1.48-3.22 Avg [id number] 17:40:00 Test Item Value Reference Range Comments PHOSPHOROUS (test code = PHOS) 3.5 MG/DL 2.5-4.9 RULE OUT AL [id number] 17:40:00 Test Item Value Reference Range Comments CREATINE KINASE (CK) (test 102 Unit/L 26-192 code = CK) TROPONIN-I (test code = 0.041 NG/ML 0.000-0.045 Negative : </= 0.045 Positive: TROPI) >/= 0.046 Correl ation with serial results, other cardiac markers, and cli nical findings is necessary to determine the clinical signif icance of this result. Quantita tive results using different methodologies should not be co mpared to one another as numer ical results may varyby metho d. [id number] 17:40:00 Test Item Value Reference Range Comments MAGNESIUM (test code = MAG) 2.5 MG/DL 1.8-2.4 TROPONIN I [id number] 15:24:00 Test Item Value Reference Range Comments TROPONIN I RAPID (test code 0.04 ng/mL 0.00-0.08 - Th e use of serial sampling = TROPIRAP) and testing prot ocol is a recommended prac terrie- An elevated troponi n level alone is often not suf ficient for diagnosis of robbi cardial infarction. BASIC METABOLIC [id number] 13:39:00 Test Item Value Reference Range Comments SODIUM (test code = NA) 142 mmol/L 134-147 POTASSIUM (test code = K) 3.5 mmol/L 3.4-5.0 CHLORIDE (test code = CL) 111 mmol/L 100-108 CARBON DIOXIDE (test code = CO2) 25 mmol/L 21-32 ANION GAP (test code = GAP) 6.0 GAP calc 4.0-15.0 GLUCOSE (test code = GLU) 125 MG/DL 70-110 BLOOD UREA NITROGEN (test code = 14 MG/DL 7-18 BUN) GLOMERULAR FILTRATION RATE (test >=60 max estimate estGFR >60 code = GFR) CREATININE (test code = CREAT) 1.1 MG/DL 0.8-1.3 CALCIUM (test code = CA) 8.7 MG/DL 8.5-10.1 CREATINE KINASE (CK)2019-11-01 12:06:00 Test Item Value Reference Range Comments CREATINE KINASE (CK) (test code = CK) 133 Unit/L 26-192 TROPONIN I [id number] 11:56:00 Test Item Value Reference Range Comments TROPONIN I RAPID (test code 0.04 ng/mL 0.00-0.08 - Th e use of serial sampling = TROPIRAP) and testing prot ocol is a recommended prac terrie- An elevated troponi n level alone is often not suf ficient for diagnosis of robbi cardial infarction. - XR CHEST 1 [id number] 11:53:00 Name: ALHAJI FARAH [facility] : 1960 Age/S: 58 / M [address] [place] [address] Unit #: [id number] Loc: [place] [address] Phys: Darell Medrano MD Acct: [id number] Dis Date: Status: PRE ER PHONE #: [phone] Exam Date: 11/01/2019 1142 FAX #: Reason: chest pain EXAMS: CPT: [id number] XR CHEST 1 V 03920 Fluoro Time: DAP (Gy m2): Air Kerma (mGy): Examination: Chest 1 view Location code: S17 Comparison: None Discussion: Clinical history is remarkable for chest pain. Cardiac silhouette is normal in size. There is no consolidation, effusion, or pneumothorax appreciated. Osseous structures are unremarkable. Pacer pads are present. Impression: No acute cardiopulmonary abnormality. at 1153 Reported and signed by: Wilfrido Dawkins M.D. CC: Darell Medrano MD PAGE 1 Signed Report Name: ALHAJI FARAH :1960 Age/S: 58 / M [address] [place] Unit #: [id number] Loc: [place] [address] Phys: Darell Medrano MD Acct: [id number] Dis Date: Status: PRE ER PHONE #: [phone] Exam Date: 11/01/2019 1146 FAX #: Reason: chest pain EXAMS: CPT: [id number] XR CHEST 1 V 66904 Fluoro Time: DAP (Gy m2): Air Kerma (mGy): <Continued> Technologist:Nirmal Negron RT(R)(MR) Trnscb Date/Time: 11/01/2019 (1153) [id number] Orig Print D/T: S: 11/01/2019 (2631) PAGE 2 Signed ReportCBC W/O [id number] 11:50:00 Test Item Value Reference Range Comments WHITE BLOOD CELL (test code = WBC) 11.3 K/mm3 3.5-11.0 RED BLOOD CELL (test code = RBC) 4.92 M/mm3 4.70-6.10 HEMOGLOBIN (test code = HGB) 14.9 G/DL 12.3-15.9 HEMATOCRIT (test code = HCT) 44.8 % 35.8-46.7 MEAN CELL VOLUME (test code = MCV) 91.1 Fl 86.3-98.9 MEAN CELL HGB (test code = MCH) 30.3 pg 28.9-34.4 MEAN CELL HGB CONCETRATION (test code = MCHC) 33.3 G/DL 32 .1-34.5 RED CELL DISTRIBUTION WIDTH (test code = RDW) 14.2 SD 11 .5-14.5 PLATELET COUNT (test code = PLT) 261.0 K/mm3 150-450 MEAN PLATELET VOLUME (test code = MPV) 11.80 fL 7.0-9.6 CHEMISTRY 8 [id number] 11:47:00 Test Item Value Reference Range Comments ISTAT-SODIUM (test code = NAP) mmol/L 135-146 ISTAT-POTASSIUM (test code = KP) mmol/L 3.5-4.9 ISTAT-CHLORIDE (test code = CLP) mmol/L 98-109 ISTAT-CARBON DIOXIDE (test code = ISTAT-CO2) mmol/L 24- 29 ISTAT CALCIUM IONIZED (test code = ISTAT-MARCELO) mmol/L 1. 12-1.32 ISTAT-GLUCOSE (test code = GLUP) mg/dL 70-105 ISTAT-BUN (test code = BUNP) mg/dL 8-26 BEDSIDE CREATININE (test code = CREATBED) mg/dL 0.6-1. 3 GLOMERULAR FILTRATION RATE POC (test code = GFRBED) 81 49-113 CHEMISTRY 8 [id number] 11:47:00 Test Item Value Reference Range Comments ISTAT-SODIUM (test code = NAP) 141 mmol/L 135-146 ISTAT-POTASSIUM (test code = KP) 6.1 mmol/L 3.5-4.9 ISTAT-CHLORIDE (test code = CLP) 105 mmol/L 98-109 ISTAT-CARBON DIOXIDE (test code = ISTAT-CO2) 29 mmol/L 24- 29 ISTAT CALCIUM IONIZED (test code = ISTAT-MARCELO) 1.11 mmol/L 1. 12-1.32 ISTAT-GLUCOSE (test code = GLUP) 103 mg/dL 70-105 ISTAT-BUN (test code = BUNP) 20 mg/dL 8- BEDSIDE CREATININE (test code = CREATBED) 1.0 mg/dL 0.6-1. 3 GLOMERULAR FILTRATION RATE POC (test code = 81 49-1 13 GFRBED) TISSUE [id number] 10:31:00Surgical Pathology Report Case: [id number] Authorizing Provider: Caleb Dawn Collected: 06/14/2019 Bhavna Morales MD Ordering Location: [address] Received: 06/15/2019 3484 Service Pathologist: Misty Jackson MD Specimen: Ampulla, Ampulla Bx A. "AMPULLA", BIOPSY: - SQUAMOUS AND FOVEOLAR TYPE MUCOSA WITH MILD CHRONIC INFLAMMATION - NEGATIVE FOR MALIGNANCY (SEE COMMENT) Signing Pathologist Direct Phone Line: [phone] signed by Misty Jackson MD on 06/19/2019 at 10:31 AMThe biopsy shows fragments of squamous and foveolar type mucosa with mild chronic inflammation and cautery. Focal muscle is also seen. No definite small bowel/ biliary lining is seen. The ampulla normally does not have squamous lining. This could be a metaplastic change. Clinical and endoscopic correlation is required.[id number] and postop diagnosis: endoscopic ultrasound with endo, EUS and possible ERCP.Pre and postop diagnosis: abdominal painAmpulla, ampulla Bx .Received in formalin labeled with the patient's name, accession number and "ampulla" is a 0.3 x 0.3 x 0.2 cm piece of meehan-brown, irregular, mucosal-covered tissue. The specimen submitted in toto following filtration in cassette A1. SS/plPerformed.FL, ERCP 2019-06-16 12:50:00Reason for exam:->Abdominal PainFINAL REPORT A fluoroscopic unit was utilized for a procedure performed in the operating room. No interpretation was requested. Please refer to the operative report regarding findings. Please refer to PACS for patient radiation dose information. Signed: Clifton Nicholas MDReport Verified Date/Time: 06/16/2019 12:50:49 Reading Location: [facility] Rad[facility] Reading Room BLOOD CULTURE 2019-06-16 12:01:00 Test Item Value Reference Range Comments CULTURE (BEAKER) (test code = 1095) No growth in 5 days BLOOD [id number] 12:01:00 Test Item Value Reference Range Comments CULTURE (BEAKER) (test code = 1095) No growth in 5 days COMPREHENSIVE METABOLIC [id number] 07:08:00 Test Item Value Reference Range Comments TOTAL PROTEIN (BEAKER) 7.0 gm/dL 6.0-8.3 (test code = 770) ALBUMIN (BEAKER) (test 3.4 g/dL 3.5-5.0 code = 1145) ALKALINE PHOSPHATASE 87 U/L 40-150 (BEAKER) (test code = 346) BILIRUBIN TOTAL (BEAKER) 0.6 mg/dL 0.2-1.2 (test code = 377) SODIUM (BEAKER) (test code 134 meq/L 136-145 = 381) POTASSIUM (BEAKER) (test 4.5 meq/L 3.5-5.1 code = 379) CHLORIDE (BEAKER) (test 103 meq/L 98-107 code = 382) CO2 (BEAKER) (test code = 26 meq/L 22-29 355) BLOOD UREA NITROGEN 19 mg/dL 7-21 (BEAKER) (test code = 354) CREATININE (BEAKER) (test 0.80 mg/dL 0.57-1.25 code = 358) GLUCOSE RANDOM (BEAKER) 112 mg/dL 70-105 (test code = 652) CALCIUM (BEAKER) (test 8.9 mg/dL 8.4-10.2 code = 697) AST (SGOT) (BEAKER) (test 106 U/L 5-34 code = 353) ALT (SGPT) (BEAKER) (test 73 U/L 6-55 code = 347) EGFR (BEAKER) (test code = 99 mL/min/1.73 sq m E STIMATED GFR IS NOT 1092) ACCURATE CREA TININE CLEARANCE IN PRE DICTING GLOMERULAR FILTR ATION RATE. ESTIMATED GFR IS NOT APPLICABLE F OR DIALYSIS PATIENT S. BLOOD [id number] 02:00:00 Test Item Value Reference Range Comments CULTURE (BEAKER) (test code = 1095) No growth in 5 days BLOOD [id number] 02:00:00 Test Item Value Reference Range Comments CULTURE (BEAKER) (test code = 1095) No growth in 5 days BLOOD [id number] 02:00:00 Test Item Value Reference Range Comments CULTURE (BEAKER) (test code = 1095) No growth in 5 days COMPREHENSIVE METABOLIC [id number] 04:49:00 Test Item Value Reference Range Comments TOTAL PROTEIN (BEAKER) 6.5 gm/dL 6.0-8.3 Specimen slightly (test code = 770) hemolyzed ALBUMIN (BEAKER) (test 3.2 g/dL 3.5-5.0 Specimen slightly code = 1145) hemolyzed ALKALINE PHOSPHATASE 33 U/L 40-150 (BEAKER) (test code = 346) BILIRUBIN TOTAL (BEAKER) 0.3 mg/dL 0.2-1.2 Specime n slightly (test code = 377) hemolyzed SODIUM (BEAKER) (test code 134 meq/L 136-145 = 381) POTASSIUM (BEAKER) (test 4.3 meq/L 3.5-5.1 Specime n slightly code = 379) hemolyzed CHLORIDE (BEAKER) (test 106 meq/L 98-107 code = 382) CO2 (BEAKER) (test code = 22 meq/L 22-29 355) BLOOD UREA NITROGEN 21 mg/dL 7-21 (BEAKER) (test code = 354) CREATININE (BEAKER) (test 0.76 mg/dL 0.57-1.25 Specim en slightly code = 358) hemolyzed GLUCOSE RANDOM (BEAKER) 105 mg/dL 70-105 (test code = 652) CALCIUM (BEAKER) (test 8.5 mg/dL 8.4-10.2 code = 697) AST (SGOT) (BEAKER) (test 55 U/L 5-34 Specim en slightly code = 353) hemolyzed ALT (SGPT) (BEAKER) (test 44 U/L 6-55 Specim en slightly code = 347) hemolyzed EGFR (BEAKER) (test code = 105 mL/min/1.73 sq ES TIMATED GFR IS NOT 1092) m ACCURATE CREA TININE CLEARANCE IN PRE DICTING GLOMERULAR FILTR ATION RATE. ESTIMATED GFR IS NOT APPLICABLE F OR DIALYSIS PATIENT S. CBC (HEMOGRAM ONLY)2019-06-14 04:38:00 Test Item Value Reference Range Comments WHITE BLOOD CELL COUNT (BEAKER) 8.7 K/ L 3.5-10.5 (test code = 775) RED BLOOD CELL COUNT (BEAKER) 4.05 M/ L 4.63-6.08 (test code = 761) HEMOGLOBIN (BEAKER) (test code 12.5 GM/DL 13.7-17.5 = 410) HEMATOCRIT (BEAKER) (test code 38.1 % 40.1-51.0 = 411) MEAN CORPUSCULAR VOLUME 94.1 fL 79.0-92.2 (BEAKER) (test code = 753) MEAN CORPUSCULAR HEMOGLOBIN 30.9 pg 25.7-32.2 (BEAKER) (test code = 751) MEAN CORPUSCULAR HEMOGLOBIN 32.8 GM/DL 32.3-36.5 CONC (BEAKER) (test code = 752) RED CELL DISTRIBUTION WIDTH 13.3 % 11.6-14.4 (BEAKER) (test code = 412) PLATELET COUNT (BEAKER) (test 198 K/CU MM 150-450 code = 756) MEAN PLATELET VOLUME (BEAKER) 11.4 fL 9.4-12.4 MP V-Approximately 20% (test code = 754) positive bias due to method change. NUCLEATED RED BLOOD CELLS 0 /100 WBC 0-0 (BEAKER) (test code = 413) [id number] 16:17:00 Test Item Value Reference Range Comments ACTIVATED CLOTTING TIME 125 sec TESTED A T BSC [address] (BEAKER) (test code = 441) [place] [address] PET, CARDIAC PERFUSION MULTIPLE STUDIES, REST AND [id number] 16:40:00 Reason for exam:->chest pain, evaluate for worsening CAD, s/p CABGFINAL REPORT PROCEDURE: MYOCARDIAL PERFUSION PET IMAGING (Rest/Stress)CPT CODE: 27990 INDICATION: Evaluate acute chest pain/discomfort CARDIOVASCULAR PROFILE:CAD History: Known CAD, history of ACBSymptoms: Chest painRisk Factors: Hypertension, tobacco useBMI: 22.1Medications: Aspirin, atorvastatin, carvedilol, amiodarone STRESS PROTOCOL:Pharmacologic stress was achieved with a 10-second intravenous infusion of regadenoson 0.4 mg. The radiopharmaceutical was administered 30 seconds after the start of the regadenoson infusion. IMAGING PROTOCOL:Limited low-dose CT imaging was performed for attenuation correction. 40.0 mCi of Rb-82 chloride was injected intravenously at rest, and gated PET images were obtained. Then, 40.1 mCi of Rb- 82 chloride was injected intravenously at peakstress, and gated PET images were obtained. Image quality is good. REST FINDINGS:HR: 78/minBP: 159/76 mmHgPrelim. 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 STRESS FINDINGS:HR: 93/min (58% of MPHR)BP: 158/76 mmHgPrelim. EKG: No significant changes.Symptoms: Chest pain (5/10), headache (treated with 125 mg of IV Aminophyllin).Perfusion: Decreased tracer uptake in the apex, mid anterior, apical anterior segments.Wall Motion: Apical akinesis, hypokinesis of the anterior wall (LVEF 48%).LV Volume: Not significantly changed from rest. IMPRESSION:1. Abnormal study.2. Abnormal myocardial perfusion. There is a medium size, moderate severity, reversible perfusion abnormality in the apical anterior and mid anterior segments of the LV.There is also a small size, marked severity, fixed perfusion abnormality in the apex.3. Normal resting LVEF, which decreases with pharmacologic stress.4. Normal extracardiac tracer distribution.5. There is no prior study for comparison. Signed: Abelino Saenz MDReport Verified Date/Time: 06/12/2019 16:40:23 Reading Location: [address] Reading Room TROPONIN [id number] 02:08:00 Test Item Value Reference Range Comments TROPONIN I (BEAKER) (test code = 397) 0.05 ng/mL 0.00-0.03 Troponin I (TnI) levels must [...] failure, acidosis, acute neurological disease, and persistent tachyarrhythmia.HEPATIC FUNCTION [id number] 02:02:00 Test Item Value Reference Range Comments TOTAL PROTEIN (BEAKER) (test code = 770) 6.6 gm/dL 6.0-8.3 ALBUMIN (BEAKER) (test code = 1145) 3.3 g/dL 3.5-5.0 BILIRUBIN TOTAL (BEAKER) (test code = 377) 0.5 mg/dL 0.2-1 .2 BILIRUBIN DIRECT (BEAKER) (test code = 706) 0.4 mg/dL 0.1- 0.5 ALKALINE PHOSPHATASE (BEAKER) (test code = 346) 39 U/L 40-150 AST (SGOT) (BEAKER) (test code = 353) 22 U/L 5-34 ALT (SGPT) (BEAKER) (test code = 347) 26 U/L 6-55 BASIC METABOLIC [id number] 02:02:00 Test Item Value Reference Range Comments SODIUM (BEAKER) (test 135 meq/L 136-145 code = 381) POTASSIUM (BEAKER) (test 3.7 meq/L 3.5-5.1 code = 379) CHLORIDE (BEAKER) (test 105 meq/L 98-107 code = 382) CO2 (BEAKER) (test code = 24 meq/L 22-29 355) BLOOD UREA NITROGEN 14 mg/dL 7-21 (BEAKER) (test code = 354) CREATININE (BEAKER) (test 0.78 mg/dL 0.57-1.25 code = 358) GLUCOSE RANDOM (BEAKER) 144 mg/dL 70-105 (test code = 652) CALCIUM (BEAKER) (test 8.3 mg/dL 8.4-10.2 code = 697) EGFR (BEAKER) (test code 102 mL/min/1.73 sq m ES TIMATED GFR IS NOT = 1092) ACCURATE CREA TININE CLEARANCE IN PRE DICTING GLOMERULAR FILTR ATION RATE. ESTIMATED GFR IS NOT APPLICABLE F OR DIALYSIS PATIENT S. VANCOMYCIN LEVEL, [id number] 01:59:00 Test Item Value Reference Range Comments VANCOMYCIN TROUGH (BEAKER) (test code = 522) 11.6 ug/mL 10. 0-20.0 Please HOLD the dose until the trough comes back. If >20 mcg/ml, DO NOT administer the dose and contact the pharmacist.CBC (HEMOGRAM ONLY)2019-06-12 01:32:00 Test Item Value Reference Range Comments WHITE BLOOD CELL COUNT (BEAKER) (test code = 10.9 K/ L 3.5 -10.5 775) RED BLOOD CELL COUNT (BEAKER) (test code = 761) 4.24 M/ L 4.63-6.08 HEMOGLOBIN (BEAKER) (test code = 410) 13.3 GM/DL 13.7-17.5 HEMATOCRIT (BEAKER) (test code = 411) 39.2 % 40.1-51.0 MEAN CORPUSCULAR VOLUME (BEAKER) (test code = 92.5 fL 79 .0-92.2 753) MEAN CORPUSCULAR HEMOGLOBIN (BEAKER) (test code 31.4 pg 25.7-32.2 = 751) MEAN CORPUSCULAR HEMOGLOBIN CONC (BEAKER) (test 33.9 GM/DL 32.3-36.5 code = 752) RED CELL DISTRIBUTION WIDTH (BEAKER) (test code 13.2 % 11.6-14.4 = 412) PLATELET COUNT (BEAKER) (test code = 756) 152 K/CU MM 150-45 0 MEAN PLATELET VOLUME (BEAKER) (test code = 754) 11.9 fL 9.4-12.4 NUCLEATED RED BLOOD CELLS (BEAKER) (test code = 0 /100 WBC 0-0 413) [id number] 07:20:00 Test Item Value Reference Range Comments PROCALCITONIN (BEAKER) (test code = 3036) 0.30 ng/mL <0.05 SEPSIS RISK (ng/mL)Low: 0.05-0.50Intermediate: 0.51-2.00High: >=2.01BASIC METABOLIC [id number] 07:16:00 Test Item Value Reference Range Comments SODIUM (BEAKER) (test 134 meq/L 136-145 code = 381) POTASSIUM (BEAKER) (test 3.9 meq/L 3.5-5.1 Specime n slightly code = 379) hemolyzed CHLORIDE (BEAKER) (test 104 meq/L 98-107 code = 382) CO2 (BEAKER) (test code = 22 meq/L 22-29 355) BLOOD UREA NITROGEN 14 mg/dL 7-21 (BEAKER) (test code = 354) CREATININE (BEAKER) (test 0.77 mg/dL 0.57-1.25 Specim en slightly code = 358) hemolyzed GLUCOSE RANDOM (BEAKER) 107 mg/dL 70-105 (test code = 652) CALCIUM (BEAKER) (test 8.5 mg/dL 8.4-10.2 code = 697) EGFR (BEAKER) (test code 103 mL/min/1.73 sq m ES TIMATED GFR IS NOT = 1092) ACCURATE CREA TININE CLEARANCE IN PRE DICTING GLOMERULAR FILTR ATION RATE. ESTIMATED GFR IS NOT APPLICABLE F OR DIALYSIS PATIENT S. HEPATIC FUNCTION [id number] 07:16:00 Test Item Value Reference Range Comments TOTAL PROTEIN (BEAKER) (test 6.7 gm/dL 6.0-8.3 Spe cimen slightly hemolyzed code = 770) ALBUMIN (BEAKER) (test code = 3.3 g/dL 3.5-5.0 Sp ecimen slightly hemolyzed 1145) BILIRUBIN TOTAL (BEAKER) (test 0.8 mg/dL 0.2-1.2 S pecimen slightly hemolyzed code = 377) BILIRUBIN DIRECT (BEAKER) (test 0.4 mg/dL 0.1-0.5 Specimen slightly hemolyzed code = 706) ALKALINE PHOSPHATASE (BEAKER) 34 U/L 40-150 (test code = 346) AST (SGOT) (BEAKER) (test code 28 U/L 5-34 S pecimen slightly hemolyzed = 353) ALT (SGPT) (BEAKER) (test code 31 U/L 6-55 S pecimen slightly hemolyzed = 347) CBC (HEMOGRAM ONLY)2019-06-11 06:25:00 Test Item Value Reference Range Comments WHITE BLOOD CELL COUNT (BEAKER) (test code = 14.5 K/ L 3.5 -10.5 775) RED BLOOD CELL COUNT (BEAKER) (test code = 761) 4.28 M/ L 4.63-6.08 HEMOGLOBIN (BEAKER) (test code = 410) 13.2 GM/DL 13.7-17.5 HEMATOCRIT (BEAKER) (test code = 411) 41.1 % 40.1-51.0 MEAN CORPUSCULAR VOLUME (BEAKER) (test code = 96.0 fL 79 .0-92.2 753) MEAN CORPUSCULAR HEMOGLOBIN (BEAKER) (test code 30.8 pg 25.7-32.2 = 751) MEAN CORPUSCULAR HEMOGLOBIN CONC (BEAKER) (test 32.1 GM/DL 32.3-36.5 code = 752) RED CELL DISTRIBUTION WIDTH (BEAKER) (test code 13.5 % 11.6-14.4 = 412) PLATELET COUNT (BEAKER) (test code = 756) 182 K/CU MM 150-45 0 MEAN PLATELET VOLUME (BEAKER) (test code = 754) 12.3 fL 9.4-12.4 NUCLEATED RED BLOOD CELLS (BEAKER) (test code = 0 /100 WBC 0-0 413) [id number] 05:55:00 Test Item Value Reference Range Comments MAGNESIUM (BEAKER) (test code = 627) 2.1 mg/dL 1.6-2.6 LIPID [id number] 05:55:00 Test Item Value Reference Range Comments TRIGLYCERIDES (BEAKER) (test code = 540) 97 mg/dL CHOLESTEROL (BEAKER) (test code = 631) 124 mg/dL HDL CHOLESTEROL (BEAKER) (test code = 976) 34 mg/dL LDL CHOLESTEROL CALCULATED (BEAKER) (test code = 71 mg/dL 633) Triglyceride Reference Range: Low Risk <150 Borderline 150-199 High Risk 200-499 Very High Risk >=500Cholesterol Reference Range: Low Risk <200 Borderline 200-239 High Risk >240HDL Cholesterol Reference Range: Low Risk >=60 High Risk <40LDL Cholesterol Reference Range: Optimal <100 Near Optimal 100-129 Borderline 130-159 High 160-189 Very High >=190HEPATIC FUNCTION [id number] 05:55:00 Test Item Value Reference Range Comments TOTAL PROTEIN (BEAKER) (test code = 770) 6.0 gm/dL 6.0-8.3 ALBUMIN (BEAKER) (test code = 1145) 3.1 g/dL 3.5-5.0 BILIRUBIN TOTAL (BEAKER) (test code = 377) 0.7 mg/dL 0.2-1 .2 BILIRUBIN DIRECT (BEAKER) (test code = 706) 0.4 mg/dL 0.1- 0.5 ALKALINE PHOSPHATASE (BEAKER) (test code = 346) 28 U/L 40-150 AST (SGOT) (BEAKER) (test code = 353) 27 U/L 5-34 ALT (SGPT) (BEAKER) (test code = 347) 34 U/L 6-55 BASIC METABOLIC [id number] 05:55:00 Test Item Value Reference Range Comments SODIUM (BEAKER) (test 135 meq/L 136-145 code = 381) POTASSIUM (BEAKER) (test 3.8 meq/L 3.5-5.1 code = 379) CHLORIDE (BEAKER) (test 105 meq/L 98-107 code = 382) CO2 (BEAKER) (test code = 23 meq/L 22-29 355) BLOOD UREA NITROGEN 23 mg/dL 7-21 (BEAKER) (test code = 354) CREATININE (BEAKER) (test 1.13 mg/dL 0.57-1.25 code = 358) GLUCOSE RANDOM (BEAKER) 161 mg/dL 70-105 (test code = 652) CALCIUM (BEAKER) (test 7.9 mg/dL 8.4-10.2 code = 697) EGFR (BEAKER) (test code 66 mL/min/1.73 sq m EST IMATED GFR IS NOT = 1092) ACCURATE CREA TININE CLEARANCE IN PRE DICTING GLOMERULAR FILTR ATION RATE. ESTIMATED GFR IS NOT APPLICABLE F OR DIALYSIS PATIENT S. CBC W/PLT COUNT & AUTO [id number] 05:03:00 Test Item Value Reference Range Comments WHITE BLOOD CELL COUNT (BEAKER) (test code = 18.5 K/ L 3.5 -10.5 775) RED BLOOD CELL COUNT (BEAKER) (test code = 761) 3.90 M/ L 4.63-6.08 HEMOGLOBIN (BEAKER) (test code = 410) 12.0 GM/DL 13.7-17.5 HEMATOCRIT (BEAKER) (test code = 411) 37.0 % 40.1-51.0 MEAN CORPUSCULAR VOLUME (BEAKER) (test code = 94.9 fL 79 .0-92.2 753) MEAN CORPUSCULAR HEMOGLOBIN (BEAKER) (test code 30.8 pg 25.7-32.2 = 751) MEAN CORPUSCULAR HEMOGLOBIN CONC (BEAKER) (test 32.4 GM/DL 32.3-36.5 code = 752) RED CELL DISTRIBUTION WIDTH (BEAKER) (test code 14.2 % 11.6-14.4 = 412) PLATELET COUNT (BEAKER) (test code = 756) 195 K/CU MM 150-45 0 MEAN PLATELET VOLUME (BEAKER) (test code = 754) 11.5 fL 9.4-12.4 NUCLEATED RED BLOOD CELLS (BEAKER) (test code = 0 /100 WBC 0-0 413) NEUTROPHILS RELATIVE PERCENT (BEAKER) (test code 83 % = 429) LYMPHOCYTES RELATIVE PERCENT (BEAKER) (test code 10 % = 430) MONOCYTES RELATIVE PERCENT (BEAKER) (test code = 7 % 431) EOSINOPHILS RELATIVE PERCENT (BEAKER) (test code 1 % = 432) BASOPHILS RELATIVE PERCENT (BEAKER) (test code = 0 % 437) NEUTROPHILS ABSOLUTE COUNT (BEAKER) (test code = 15.28 K/ L 1.78-5.38 670) LYMPHOCYTES ABSOLUTE COUNT (BEAKER) (test code = 1.77 K/ L 1.32-3.57 414) MONOCYTES ABSOLUTE COUNT (BEAKER) (test code = 1.20 K/ L 0 .30-0.82 415) EOSINOPHILS ABSOLUTE COUNT (BEAKER) (test code = 0.09 K/ L 0.04-0.54 416) BASOPHILS ABSOLUTE COUNT (BEAKER) (test code = 0.05 K/ L 0 .01-0.08 417) IMMATURE GRANULOCYTES-RELATIVE PERCENT (BEAKER) 1 % 0-1 (test code = 2801) TROPONIN [id number] 05:02:00 Test Item Value Reference Range Comments TROPONIN I (BEAKER) (test code = 397) 0.05 ng/mL 0.00-0.03 Troponin I (TnI) levels must [...] failure, acidosis, acute neurological disease, and persistent tachyarrhythmia.LACTIC ACID, [id number] 04:48:00 Test Item Value Reference Range Comments LACTATE BLOOD VENOUS (2) (BEAKER) (test code = 1.1 mmol/L 0 .5-2.2 2872) URINALYSIS W/ REFLEX URINE [id number] 03:25:00 Test Item Value Reference Range Comments COLOR (BEAKER) (test code = 470) Yellow CLARITY (BEAKER) (test code = 469) Hazy SPECIFIC GRAVITY UA (BEAKER) (test code = 468) 1.030 1 .001-1.035 PH UA (BEAKER) (test code = 467) 5.5 5.0-8.0 PROTEIN UA (BEAKER) (test code = 464) 70 mg/dL Negative GLUCOSE UA (BEAKER) (test code = 365) 200 mg/dL Negative KETONES UA (BEAKER) (test code = 371) Trace Negative BILIRUBIN UA (BEAKER) (test code = 462) Negative Negative BLOOD UA (BEAKER) (test code = 461) Negative Negative NITRITE UA (BEAKER) (test code = 465) Negative Negative LEUKOCYTE ESTERASE UA (BEAKER) (test code = 466) Large Negative UROBILINOGEN UA (BEAKER) (test code = 463) 2.0 mg/dL 0.2-1 .0 RBC UA (BEAKER) (test code = 519) 7 /HPF WBC UA (BEAKER) (test code = 520) 135 /HPF MUCUS (BEAKER) (test code = 1574) Occasional SQUAMOUS EPITHELIAL (BEAKER) (test code = 516) 10 /HPF HYALINE CASTS (BEAKER) (test code = 514) 18 /LPF SOURCE(BEAKER) (test code = 2795) OXYGEN SATURATION, [id number] 03:04:00 Test Item Value Reference Range Comments O2 SATURATION (MEASURED) (BEAKER) (test code = 1455) 86.6 % If patient has internal jugular ( IJ) or subclavian central line or PICC line. Draw from distal port. Label as central venous oxygen.LACTIC ACID, VENOUS 2019-06-10 02:04:00 Test Item Value Reference Range Comments LACTATE BLOOD VENOUS (2) (BEAKER) (test code = 0.7 mmol/L 0 .5-2.2 2872) [id number] 23:52:00 Test Item Value Reference Range Comments PROCALCITONIN (BEAKER) (test code = 3036) 0.30 ng/mL <0.05 SEPSIS RISK (ng/mL)Low: 0.05-0.50Intermediate: 0.51-2.00High: >=2.01TROPONIN [id number] 23:40:00 Test Item Value Reference Range Comments TROPONIN I (BEAKER) (test code = 397) 0.11 ng/mL 0.00-0.03 Troponin I (TnI) levels must [...] failure, acidosis, acute neurological disease, and persistent tachyarrhythmia.[id number] 23:34:00 Test Item Value Reference Range Comments PHOSPHORUS (BEAKER) (test code = 604) 3.4 mg/dL 2.3-4.7 [id number] 23:34:00 Test Item Value Reference Range Comments MAGNESIUM (BEAKER) (test code = 627) 2.2 mg/dL 1.6-2.6 BASIC METABOLIC [id number] 23:34:00 Test Item Value Reference Range Comments SODIUM (BEAKER) (test 137 meq/L 136-145 code = 381) POTASSIUM (BEAKER) (test 3.7 meq/L 3.5-5.1 code = 379) CHLORIDE (BEAKER) (test 106 meq/L 98-107 code = 382) CO2 (BEAKER) (test code = 24 meq/L 22-29 355) BLOOD UREA NITROGEN 22 mg/dL 7-21 (BEAKER) (test code = 354) CREATININE (BEAKER) (test 1.44 mg/dL 0.57-1.25 code = 358) GLUCOSE RANDOM (BEAKER) 147 mg/dL 70-105 (test code = 652) CALCIUM (BEAKER) (test 8.5 mg/dL 8.4-10.2 code = 697) EGFR (BEAKER) (test code 50 mL/min/1.73 sq m EST IMATED GFR IS NOT = 1092) ACCURATE CREA TININE CLEARANCE IN PRE DICTING GLOMERULAR FILTR ATION RATE. ESTIMATED GFR IS NOT APPLICABLE F OR DIALYSIS PATIENT S. HEPATIC FUNCTION [id number] 23:34:00 Test Item Value Reference Range Comments TOTAL PROTEIN (BEAKER) (test code = 770) 6.5 gm/dL 6.0-8.3 ALBUMIN (BEAKER) (test code = 1145) 3.4 g/dL 3.5-5.0 BILIRUBIN TOTAL (BEAKER) (test code = 377) 0.8 mg/dL 0.2-1 .2 BILIRUBIN DIRECT (BEAKER) (test code = 706) 0.5 mg/dL 0.1- 0.5 ALKALINE PHOSPHATASE (BEAKER) (test code = 346) 31 U/L 40-150 AST (SGOT) (BEAKER) (test code = 353) 35 U/L 5-34 ALT (SGPT) (BEAKER) (test code = 347) 42 U/L 6-55 COMPREHENSIVE METABOLIC [id number] 23:34:00 Test Item Value Reference Range Comments TOTAL PROTEIN (BEAKER) 6.5 gm/dL 6.0-8.3 (test code = 770) ALBUMIN (BEAKER) (test 3.4 g/dL 3.5-5.0 code = 1145) ALKALINE PHOSPHATASE 31 U/L 40-150 (BEAKER) (test code = 346) BILIRUBIN TOTAL (BEAKER) 0.8 mg/dL 0.2-1.2 (test code = 377) SODIUM (BEAKER) (test code 137 meq/L 136-145 = 381) POTASSIUM (BEAKER) (test 3.7 meq/L 3.5-5.1 code = 379) CHLORIDE (BEAKER) (test 106 meq/L 98-107 code = 382) CO2 (BEAKER) (test code = 24 meq/L 22-29 355) BLOOD UREA NITROGEN 22 mg/dL 7-21 (BEAKER) (test code = 354) CREATININE (BEAKER) (test 1.44 mg/dL 0.57-1.25 code = 358) GLUCOSE RANDOM (BEAKER) 147 mg/dL 70-105 (test code = 652) CALCIUM (BEAKER) (test 8.5 mg/dL 8.4-10.2 code = 697) AST (SGOT) (BEAKER) (test 35 U/L 5-34 code = 353) ALT (SGPT) (BEAKER) (test 42 U/L 6-55 code = 347) EGFR (BEAKER) (test code = 50 mL/min/1.73 sq m E STIMATED GFR IS NOT 1092) ACCURATE CREA TININE CLEARANCE IN PRE DICTING GLOMERULAR FILTR ATION RATE. ESTIMATED GFR IS NOT APPLICABLE F OR DIALYSIS PATIENT S. [id number] 23:34:00 Test Item Value Reference Range Comments LIPASE (BEAKER) (test code = 749) 38 U/L 8-78 [id number] 23:33:00 Test Item Value Reference Range Comments PARTIAL THROMBOPLASTIN TIME (BEAKER) (test code 27.3 seconds 22.5-36.0 = 760) [id number] 23:33:00 Test Item Value Reference Range Comments FIBRINOGEN LEVEL (BEAKER) (test code = 658) 300 mg/dl 225- 434 PROTHROMBIN [id number] 23:32:00 Test Item Value Reference Range Comments PROTIME (BEAKER) (test code = 759) 13.9 seconds 11.9-14.2 INR (BEAKER) (test code = 370) 1.1 <=5.9 Effective 03/22/2019: PT Reference Range ChangeNew: 11.9-14.2 Previous: 11.7- 14.7RECOMMENDED COUMADIN/WARFARIN INR THERAPY RANGESSTANDARD DOSE: 2.0-3.0 Includes: PROPHYLAXIS for venous thrombosis, systemic embolization; TREATMENT for venous thrombosis and/or pulmonary embolus.HIGH RISK: Target INR is2.5-3.5 for patients wiht mechanical heart valves.CBC W/PLT COUNT & AUTO [id number] 23:22:00 Test Item Value Reference Range Comments WHITE BLOOD CELL COUNT (BEAKER) (test code = 20.8 K/ L 3.5 -10.5 775) RED BLOOD CELL COUNT (BEAKER) (test code = 761) 4.25 M/ L 4.63-6.08 HEMOGLOBIN (BEAKER) (test code = 410) 13.4 GM/DL 13.7-17.5 HEMATOCRIT (BEAKER) (test code = 411) 41.0 % 40.1-51.0 MEAN CORPUSCULAR VOLUME (BEAKER) (test code = 96.5 fL 79 .0-92.2 753) MEAN CORPUSCULAR HEMOGLOBIN (BEAKER) (test code 31.5 pg 25.7-32.2 = 751) MEAN CORPUSCULAR HEMOGLOBIN CONC (BEAKER) (test 32.7 GM/DL 32.3-36.5 code = 752) RED CELL DISTRIBUTION WIDTH (BEAKER) (test code 14.3 % 11.6-14.4 = 412) PLATELET COUNT (BEAKER) (test code = 756) 197 K/CU MM 150-45 0 MEAN PLATELET VOLUME (BEAKER) (test code = 754) 12.8 fL 9.4-12.4 NUCLEATED RED BLOOD CELLS (BEAKER) (test code = 0 /100 WBC 0-0 413) NEUTROPHILS RELATIVE PERCENT (BEAKER) (test code 83 % = 429) LYMPHOCYTES RELATIVE PERCENT (BEAKER) (test code 9 % = 430) MONOCYTES RELATIVE PERCENT (BEAKER) (test code = 7 % 431) EOSINOPHILS RELATIVE PERCENT (BEAKER) (test code 1 % = 432) BASOPHILS RELATIVE PERCENT (BEAKER) (test code = 0 % 437) NEUTROPHILS ABSOLUTE COUNT (BEAKER) (test code = 17.13 K/ L 1.78-5.38 670) LYMPHOCYTES ABSOLUTE COUNT (BEAKER) (test code = 1.88 K/ L 1.32-3.57 414) MONOCYTES ABSOLUTE COUNT (BEAKER) (test code = 1.48 K/ L 0 .30-0.82 415) EOSINOPHILS ABSOLUTE COUNT (BEAKER) (test code = 0.11 K/ L 0.04-0.54 416) BASOPHILS ABSOLUTE COUNT (BEAKER) (test code = 0.05 K/ L 0 .01-0.08 417) IMMATURE GRANULOCYTES-RELATIVE PERCENT (BEAKER) 1 % 0-1 (test code = 2801) BLOOD GAS, [id number] 22:27:00 Test Item Value Reference Range Comments PH ARTERIAL (BEAKER) (test code = 383) 7.41 7.35-7.45 PCO2 ARTERIAL (BEAKER) (test code = 384) 38 mmHg 35-45 PO2 ARTERIAL (BEAKER) (test code = 385) 87 mmHg 80-90 O2 SATURATION ARTERIAL (BEAKER) (test code = 96.8 % 96. 0-97.0 386) HCO3 ARTERIAL (BEAKER) (test code = 388) 24 mmol/L 21-29 BASE EXCESS ARTERIAL (BEAKER) (test code = 387) -0.7 mmol/L -2.0-3.0 PATIENT TEMPERATURE (BEAKER) (test code = 1818) 37.0 C FIO2 (BEAKER) (test code = 1819) 21.0 % POCT-LACTIC ACID, [id number] 21:53:00 Test Item Value Reference Range Comments POC-LACTIC ACID, VENOUS 1.6 mmol/L 0.9-1.7 TESTED A T [place] [address] [address] (BEAKER) (test code = 2805) [facility] [address] TROPONIN [id number] 18:59:00 Test Item Value Reference Range Comments TROPONIN I (BEAKER) (test code = 397) 0.09 ng/mL 0.00-0.03 Troponin I (TnI) levels must [...] failure, acidosis, acute neurological disease, and persistent tachyarrhythmia.HEPATITIS C [id number] 16:55:00 Test Item Value Reference Range Comments HEPATITIS C ANTIBODY (BEAKER) (test code = 367) Reactive Nonreactive POCT-GLUCOSE [id number] 12:03:00 Test Item Value Reference Range Comments POC-GLUCOSE METER (BEAKER) 169 mg/dL 70-110 TESTE D AT [place] [address] [facility] (test code = 1538) [place] [address] HEPATITIS B CORE ANTIBODY, [id number] 08:37:00 Test Item Value Reference Range Comments HEPATITIS B CORE TOTAL ANTIBODY (BEAKER) (test code Reactive Nonreactive = 497) POCT-GLUCOSE [id number] 08:14:00 Test Item Value Reference Range Comments POC-GLUCOSE METER (BEAKER) 105 mg/dL 70-110 TESTE D AT [address] (test code = 1538) [place] [address] HEPATIC FUNCTION [id number] 07:10:00 Test Item Value Reference Range Comments TOTAL PROTEIN (BEAKER) (test code = 770) 6.7 gm/dL 6.0-8.3 ALBUMIN (BEAKER) (test code = 1145) 3.5 g/dL 3.5-5.0 BILIRUBIN TOTAL (BEAKER) (test code = 377) 0.5 mg/dL 0.2-1 .2 BILIRUBIN DIRECT (BEAKER) (test code = 706) 0.3 mg/dL 0.1- 0.5 ALKALINE PHOSPHATASE (BEAKER) (test code = 346) 60 U/L 40-150 AST (SGOT) (BEAKER) (test code = 353) 47 U/L 5-34 ALT (SGPT) (BEAKER) (test code = 347) 67 U/L 6-55 BASIC METABOLIC [id number] 07:10:00 Test Item Value Reference Range Comments SODIUM (BEAKER) (test 138 meq/L 136-145 code = 381) POTASSIUM (BEAKER) (test 3.8 meq/L 3.5-5.1 code = 379) CHLORIDE (BEAKER) (test 104 meq/L 98-107 code = 382) CO2 (BEAKER) (test code = 25 meq/L 22-29 355) BLOOD UREA NITROGEN 18 mg/dL 7-21 (BEAKER) (test code = 354) CREATININE (BEAKER) (test 0.94 mg/dL 0.57-1.25 code = 358) GLUCOSE RANDOM (BEAKER) 109 mg/dL 70-105 (test code = 652) CALCIUM (BEAKER) (test 9.1 mg/dL 8.4-10.2 code = 697) EGFR (BEAKER) (test code 82 mL/min/1.73 sq m EST IMATED GFR IS NOT = 1092) ACCURATE CREA TININE CLEARANCE IN PRE DICTING GLOMERULAR FILTR ATION RATE. ESTIMATED GFR IS NOT APPLICABLE F OR DIALYSIS PATIENT S. HEPATITIS B SURFACE [id number] 06:58:00 Test Item Value Reference Range Comments HEPATITIS B SURFACE ANTIBODY (BEAKER) (test code = < mIU/mL <8.0 647) HEPATITIS B SURFACE [id number] 05:42:00 Test Item Value Reference Range Comments HEPATITIS B SURFACE ANTIGEN (2) (BEAKER) (test Nonreactive N onreactive code = 7680) HEPATITIS B CORE ANTIBODY, [id number] 05:42:00 Test Item Value Reference Range Comments HEPATITIS B CORE IGM ANTIBODY (BEAKER) (test Nonreactive Non reactive code = 645) CBC W/PLT COUNT & AUTO [id number] 04:56:00 Test Item Value Reference Range Comments WHITE BLOOD CELL COUNT (BEAKER) (test code = 9.4 K/ L 3.5 -10.5 775) RED BLOOD CELL COUNT (BEAKER) (test code = 761) 4.48 M/ L 4.63-6.08 HEMOGLOBIN (BEAKER) (test code = 410) 13.6 GM/DL 13.7-17.5 HEMATOCRIT (BEAKER) (test code = 411) 41.5 % 40.1-51.0 MEAN CORPUSCULAR VOLUME (BEAKER) (test code = 92.6 fL 79 .0-92.2 753) MEAN CORPUSCULAR HEMOGLOBIN (BEAKER) (test code 30.4 pg 25.7-32.2 = 751) MEAN CORPUSCULAR HEMOGLOBIN CONC (BEAKER) (test 32.8 GM/DL 32.3-36.5 code = 752) RED CELL DISTRIBUTION WIDTH (BEAKER) (test code 13.5 % 11.6-14.4 = 412) PLATELET COUNT (BEAKER) (test code = 756) 218 K/CU MM 150-45 0 MEAN PLATELET VOLUME (BEAKER) (test code = 754) 11.3 fL 9.4-12.4 NUCLEATED RED BLOOD CELLS (BEAKER) (test code = 0 /100 WBC 0-0 413) NEUTROPHILS RELATIVE PERCENT (BEAKER) (test code 52 % = 429) LYMPHOCYTES RELATIVE PERCENT (BEAKER) (test code 31 % = 430) MONOCYTES RELATIVE PERCENT (BEAKER) (test code = 8 % 431) EOSINOPHILS RELATIVE PERCENT (BEAKER) (test code 8 % = 432) BASOPHILS RELATIVE PERCENT (BEAKER) (test code = 1 % 437) NEUTROPHILS ABSOLUTE COUNT (BEAKER) (test code = 4.85 K/ L 1.78-5.38 670) LYMPHOCYTES ABSOLUTE COUNT (BEAKER) (test code = 2.92 K/ L 1.32-3.57 414) MONOCYTES ABSOLUTE COUNT (BEAKER) (test code = 0.77 K/ L 0 .30-0.82 415) EOSINOPHILS ABSOLUTE COUNT (BEAKER) (test code = 0.79 K/ L 0.04-0.54 416) BASOPHILS ABSOLUTE COUNT (BEAKER) (test code = 0.06 K/ L 0 .01-0.08 417) IMMATURE GRANULOCYTES-RELATIVE PERCENT (BEAKER) 0 % 0-1 (test code = 2801) U/S, RENAL WITH [id number] 16:28:00Reason for exam:->hypertensionFINAL REPORT INDICATION: 57-year-old inpatient male with hypertension. [...] prostate noted on CT exam yesterday. Signed: Damian Rowell MDReport Verified Date/Time: 05/11/2018 16:28:02 Reading Location: [address] Ultrasound Reading Room U/S, ABDOMINAL, [id number] 16:15:00Abdomen limited area? Add comment if clarification is needed.->LiverReason for exam:- >mild transaminitisShould this be performed at the bedside?->no preference FINAL REPORT INDICATION: 57-year-old inpatient male with [...] Signed: Jan Rowell MDReport Verified Date/Time: 05/11/2018 16:15:41 Reading Location: [place] [id number] Ultrasound Reading Room CTA, CHEST, ABDOMEN - PELVIS, FOR [id number] 14:11:00Reason for exam:->Chest painAddendum BeginsREPORT STATUS:A Addendum: I agree with the previously described non vascular findings. Signed: Antionette Hinojosa MDReport Verified Date/Time: 05/11/2018 14:11:09 Reading Location: [place] [id number] Angio Body Reading RoomAddendum EndsFINAL REPORT CT [...] coronary artery calcification is seen in the [place] coronary territories. Patient is post coronary artery [...] thoracic aorta. In the abdominal aorta, circumferential [id number] calcific atherosclerosis is seen. Overall, no ectasia [...] posterior aspect of the right upper lobe indic ating prior asbestos exposure. A 1-2 mm nodule [...] An addendum will be dictated by the [employer] Radiologist regarding the nonvascular findings. Signed: [facility] Verified Date/Time: 05/10/2018 18:58:16 Reading Location: [place] [address] Cardiology MRI CALCIUM, [id number] 05:20:00 Test Item Value Reference Range Comments CALCIUM IONIZED (BEAKER) (test code = 698) 1.16 mmol/L 1.12- 1.27 PH, BLOOD (BEAKER) (test code = 1810) 7.40 [id number] 04:29:00 Test Item Value Reference Range Comments PHOSPHORUS (BEAKER) (test code = 604) 3.5 mg/dL 2.3-4.7 [id number] 04:29:00 Test Item Value Reference Range Comments MAGNESIUM (BEAKER) (test code = 627) 2.4 mg/dL 1.6-2.6 COMPREHENSIVE METABOLIC [id number] 04:29:00 Test Item Value Reference Range Comments TOTAL PROTEIN (BEAKER) 6.8 gm/dL 6.0-8.3 (test code = 770) ALBUMIN (BEAKER) (test 3.6 g/dL 3.5-5.0 code = 1145) ALKALINE PHOSPHATASE 58 U/L 40-150 (BEAKER) (test code = 346) BILIRUBIN TOTAL (BEAKER) 0.6 mg/dL 0.2-1.2 (test code = 377) SODIUM (BEAKER) (test code 140 meq/L 136-145 = 381) POTASSIUM (BEAKER) (test 3.6 meq/L 3.5-5.1 code = 379) CHLORIDE (BEAKER) (test 105 meq/L 98-107 code = 382) CO2 (BEAKER) (test code = 28 meq/L 22-29 355) BLOOD UREA NITROGEN 14 mg/dL 7-21 (BEAKER) (test code = 354) CREATININE (BEAKER) (test 0.85 mg/dL 0.57-1.25 code = 358) GLUCOSE RANDOM (BEAKER) 83 mg/dL 70-105 (test code = 652) CALCIUM (BEAKER) (test 9.0 mg/dL 8.4-10.2 code = 697) AST (SGOT) (BEAKER) (test 68 U/L 5-34 code = 353) ALT (SGPT) (BEAKER) (test 72 U/L 6-55 code = 347) EGFR (BEAKER) (test code = 92 mL/min/1.73 sq m E STIMATED GFR IS NOT 1092) ACCURATE CREA TININE CLEARANCE IN PRE DICTING GLOMERULAR FILTR ATION RATE. ESTIMATED GFR IS NOT APPLICABLE F OR DIALYSIS PATIENT S. CBC W/PLT COUNT & AUTO [id number] 03:58:00 Test Item Value Reference Range Comments WHITE BLOOD CELL COUNT (BEAKER) (test code = 10.2 K/ L 3.5 -10.5 775) RED BLOOD CELL COUNT (BEAKER) (test code = 761) 4.49 M/ L 4.63-6.08 HEMOGLOBIN (BEAKER) (test code = 410) 13.4 GM/DL 13.7-17.5 HEMATOCRIT (BEAKER) (test code = 411) 41.7 % 40.1-51.0 MEAN CORPUSCULAR VOLUME (BEAKER) (test code = 92.9 fL 79 .0-92.2 753) MEAN CORPUSCULAR HEMOGLOBIN (BEAKER) (test code 29.8 pg 25.7-32.2 = 751) MEAN CORPUSCULAR HEMOGLOBIN CONC (BEAKER) (test 32.1 GM/DL 32.3-36.5 code = 752) RED CELL DISTRIBUTION WIDTH (BEAKER) (test code 13.7 % 11.6-14.4 = 412) PLATELET COUNT (BEAKER) (test code = 756) 192 K/CU MM 150-45 0 MEAN PLATELET VOLUME (BEAKER) (test code = 754) 10.7 fL 9.4-12.4 NUCLEATED RED BLOOD CELLS (BEAKER) (test code = 0 /100 WBC 0-0 413) NEUTROPHILS RELATIVE PERCENT (BEAKER) (test code 53 % = 429) LYMPHOCYTES RELATIVE PERCENT (BEAKER) (test code 32 % = 430) MONOCYTES RELATIVE PERCENT (BEAKER) (test code = 9 % 431) EOSINOPHILS RELATIVE PERCENT (BEAKER) (test code 5 % = 432) BASOPHILS RELATIVE PERCENT (BEAKER) (test code = 1 % 437) NEUTROPHILS ABSOLUTE COUNT (BEAKER) (test code = 5.36 K/ L 1.78-5.38 670) LYMPHOCYTES ABSOLUTE COUNT (BEAKER) (test code = 3.23 K/ L 1.32-3.57 414) MONOCYTES ABSOLUTE COUNT (BEAKER) (test code = 0.93 K/ L 0 .30-0.82 415) EOSINOPHILS ABSOLUTE COUNT (BEAKER) (test code = 0.54 K/ L 0.04-0.54 416) BASOPHILS ABSOLUTE COUNT (BEAKER) (test code = 0.07 K/ L 0 .01-0.08 417) IMMATURE GRANULOCYTES-RELATIVE PERCENT (BEAKER) 0 % 0-1 (test code = 2801) U/S, RENAL, [id number] 13:00:00Reason for exam:->akiShould this be performed at [...] MDReport Verified Date/Time: 05/10/2018 13:00:32 Reading Location: [address] Ultrasound Reading Room CALCIUM, [id number] 06:58:00 Test Item Value Reference Range Comments CALCIUM IONIZED (BEAKER) (test code = 698) 1.08 mmol/L 1.12- 1.27 PH, BLOOD (BEAKER) (test code = 1810) 7.35 B-TYPE NATRIURETIC FACTOR (BNP)2018-05-10 05:49:00 Test Item Value Reference Range Comments B-TYPE NATRIURETIC PEPTIDE (BEAKER) (test code = 153 pg/mL 0-100 700) [id number] 05:47:00 Test Item Value Reference Range Comments MAGNESIUM (BEAKER) (test code = 2.4 mg/dL 1.6-2.6 Specimen slightly hemolyzed 627) [id number] 05:47:00 Test Item Value Reference Range Comments PHOSPHORUS (BEAKER) (test code 2.7 mg/dL 2.3-4.7 S pecimen slightly hemolyzed = 604) COMPREHENSIVE METABOLIC [id number] 05:47:00 Test Item Value Reference Range Comments TOTAL PROTEIN (BEAKER) 6.1 gm/dL 6.0-8.3 Specimen slightly (test code = 770) hemolyzed ALBUMIN (BEAKER) (test 3.2 g/dL 3.5-5.0 Specimen slightly code = 1145) hemolyzed ALKALINE PHOSPHATASE 48 U/L 40-150 (BEAKER) (test code = 346) BILIRUBIN TOTAL (BEAKER) 0.8 mg/dL 0.2-1.2 Specime n slightly (test code = 377) hemolyzed SODIUM (BEAKER) (test code 140 meq/L 136-145 = 381) POTASSIUM (BEAKER) (test 4.1 meq/L 3.5-5.1 Specime n slightly code = 379) hemolyzed CHLORIDE (BEAKER) (test 109 meq/L 98-107 code = 382) CO2 (BEAKER) (test code = 23 meq/L 22-29 355) BLOOD UREA NITROGEN 24 mg/dL 7-21 (BEAKER) (test code = 354) CREATININE (BEAKER) (test 0.88 mg/dL 0.57-1.25 Specim en slightly code = 358) hemolyzed GLUCOSE RANDOM (BEAKER) 88 mg/dL 70-105 (test code = 652) CALCIUM (BEAKER) (test 8.3 mg/dL 8.4-10.2 code = 697) AST (SGOT) (BEAKER) (test 51 U/L 5-34 Specim en slightly code = 353) hemolyzed ALT (SGPT) (BEAKER) (test 74 U/L 6-55 Specim en slightly code = 347) hemolyzed EGFR (BEAKER) (test code = 89 mL/min/1.73 sq m E STIMATED GFR IS NOT 1092) ACCURATE CREA TININE CLEARANCE IN PRE DICTING GLOMERULAR FILTR ATION RATE. ESTIMATED GFR IS NOT APPLICABLE F OR DIALYSIS PATIENT S. CBC W/PLT COUNT & AUTO [id number] 05:31:00 Test Item Value Reference Range Comments WHITE BLOOD CELL COUNT (BEAKER) (test code = 13.0 K/ L 3.5 -10.5 775) RED BLOOD CELL COUNT (BEAKER) (test code = 761) 4.32 M/ L 4.63-6.08 HEMOGLOBIN (BEAKER) (test code = 410) 13.0 GM/DL 13.7-17.5 HEMATOCRIT (BEAKER) (test code = 411) 40.5 % 40.1-51.0 MEAN CORPUSCULAR VOLUME (BEAKER) (test code = 93.8 fL 79 .0-92.2 753) MEAN CORPUSCULAR HEMOGLOBIN (BEAKER) (test code 30.1 pg 25.7-32.2 = 751) MEAN CORPUSCULAR HEMOGLOBIN CONC (BEAKER) (test 32.1 GM/DL 32.3-36.5 code = 752) RED CELL DISTRIBUTION WIDTH (BEAKER) (test code 13.9 % 11.6-14.4 = 412) PLATELET COUNT (BEAKER) (test code = 756) 215 K/CU MM 150-45 0 MEAN PLATELET VOLUME (BEAKER) (test code = 754) 11.2 fL 9.4-12.4 NUCLEATED RED BLOOD CELLS (BEAKER) (test code = 0 /100 WBC 0-0 413) NEUTROPHILS RELATIVE PERCENT (BEAKER) (test code 56 % = 429) LYMPHOCYTES RELATIVE PERCENT (BEAKER) (test code 32 % = 430) MONOCYTES RELATIVE PERCENT (BEAKER) (test code = 9 % 431) EOSINOPHILS RELATIVE PERCENT (BEAKER) (test code 2 % = 432) BASOPHILS RELATIVE PERCENT (BEAKER) (test code = 1 % 437) NEUTROPHILS ABSOLUTE COUNT (BEAKER) (test code = 7.24 K/ L 1.78-5.38 670) LYMPHOCYTES ABSOLUTE COUNT (BEAKER) (test code = 4.17 K/ L 1.32-3.57 414) MONOCYTES ABSOLUTE COUNT (BEAKER) (test code = 1.12 K/ L 0 .30-0.82 415) EOSINOPHILS ABSOLUTE COUNT (BEAKER) (test code = 0.30 K/ L 0.04-0.54 416) BASOPHILS ABSOLUTE COUNT (BEAKER) (test code = 0.07 K/ L 0 .01-0.08 417) IMMATURE GRANULOCYTES-RELATIVE PERCENT (BEAKER) 1 % 0-1 (test code = 2801) EOSINOPHIL SMEAR, [id number] 22:19:00 Test Item Value Reference Range Comments EOSINOPHIL SMEAR, URINE (BEAKER) (test code = No EOS seen No EOS seen 1850) URINALYSIS W/ [id number] 22:13:00 Test Item Value Reference Range Comments COLOR (BEAKER) (test code = 470) Yellow CLARITY (BEAKER) (test code = 469) Clear SPECIFIC GRAVITY UA (BEAKER) (test code = 468) 1.025 1 .001-1.035 PH UA (BEAKER) (test code = 467) 5.5 5.0-8.0 PROTEIN UA (BEAKER) (test code = 464) 20 mg/dL Negative GLUCOSE UA (BEAKER) (test code = 365) 70 mg/dL Negative KETONES UA (BEAKER) (test code = 371) Negative Negative BILIRUBIN UA (BEAKER) (test code = 462) Negative Negative BLOOD UA (BEAKER) (test code = 461) Negative Negative NITRITE UA (BEAKER) (test code = 465) Negative Negative LEUKOCYTE ESTERASE UA (BEAKER) (test code = 466) Negative Negative UROBILINOGEN UA (BEAKER) (test code = 463) 3.0 mg/dL 0.2-1 .0 RBC UA (BEAKER) (test code = 519) 0 /HPF WBC UA (BEAKER) (test code = 520) 2 /HPF BACTERIA (BEAKER) (test code = 517) Rare MUCUS (BEAKER) (test code = 1574) Few SQUAMOUS EPITHELIAL (BEAKER) (test code = 516) 1 /HPF SOURCE(BEAKER) (test code = 2795) SODIUM, RANDOM [id number] 21:38:00 Test Item Value Reference Range Comments SODIUM URINE (BEAKER) (test code = 243) < meq/L Reference Range: No NormalsPROTEIN, RANDOM [id number] 21:38:00 Test Item Value Reference Range Comments PROTEIN, URINE (BEAKER) (test code = 1569) 15 mg/dL 0-14 CREATININE, RANDOM [id number] 21:38:00 Test Item Value Reference Range Comments CREATININE URINE (BEAKER) (test code = 375) 173.4 mg/dL Reference Range: No NormalsRAD, FOOT, 2 VIEWS, [id number] 13:59:00Reason for exam:->Pain and swelling of left foot after fall.FINAL REPORT Two views left foot Discussion: There is hallux valgus with degen erative changes. No visible acute fracture, dislocation, destructive lesion. Soft tissues are unremarkable. Signed: Darren Ariza MDReport Verified Date/Time: 05/09/2018 13:59:01 Reading Location: [address] Consult Reading Room PUL PERF IMAGING, PARTIC, [id number] 12:03:00FINAL REPORT PROCEDURE: V/Q LUNG SCAN CPT CODE: 69168 INDICATION: Acute chest pain, PE suspected, dyspnea, [...] Signed: Edmond Pimentel MDReport Verified Date/Time: 05/09/2018 12:03:05 ReadingLocation: [facility] [address] [address] [facility] Reading Room FL, ESOPH, SWALLOW FUNCTION, WITH CINE OR [id number] 11:00:00Reason for exam:->chest painFINAL REPORT Esophagram History: chest pain Technique: Esophagram was performed using thin liquid barium. Total fluoroscopy time: 0.45 minutes Total number of films: 19 Findings:There is no significant esophageal dysmotility. There is no esophageal diverticulum or hiatus hernia. Mild gastroesophageal reflux was observed. Assessment of the gastric fundal region appear unremarkable. Impression: 1. Mild gastroesophageal reflux. Signed: Michael Genao MDReport Verified Date/Time: 0 05/09/2018 11:00:37 Reading Location: [facility] [id number] [facility] Reading Room HEMOGLOBIN [id number] 10:45:00 Test Item Value Reference Range Comments HEMOGLOBIN A1C (BEAKER) (test code = 368) 6.3 % 4.3-6. 1 BASIC METABOLIC [id number] 08:43:00 Test Item Value Reference Range Comments SODIUM (BEAKER) (test 138 meq/L 136-145 code = 381) POTASSIUM (BEAKER) (test 3.8 meq/L 3.5-5.1 Specime n slightly code = 379) hemolyzed CHLORIDE (BEAKER) (test 104 meq/L 98-107 code = 382) CO2 (BEAKER) (test code = 24 meq/L 22-29 355) BLOOD UREA NITROGEN 35 mg/dL 7-21 (BEAKER) (test code = 354) CREATININE (BEAKER) (test 1.39 mg/dL 0.57-1.25 Specim en slightly code = 358) hemolyzed GLUCOSE RANDOM (BEAKER) 124 mg/dL 70-105 (test code = 652) CALCIUM (BEAKER) (test 9.2 mg/dL 8.4-10.2 code = 697) EGFR (BEAKER) (test code 52 mL/min/1.73 sq m EST IMATED GFR IS NOT = 1092) ACCURATE CREA TININE CLEARANCE IN PRE DICTING GLOMERULAR FILTR ATION RATE. ESTIMATED GFR IS NOT APPLICABLE F OR DIALYSIS PATIENT S. Re-draw per labLIPID [id number] 08:42:00 Test Item Value Reference Range Comments TRIGLYCERIDES (BEAKER) (test 161 mg/dL Spe cimen slightly hemolyzed code = 540) CHOLESTEROL (BEAKER) (test code 111 mg/dL Specimen slightly hemolyzed = 631) HDL CHOLESTEROL (BEAKER) (test 39 mg/dL code = 976) LDL CHOLESTEROL CALCULATED 40 mg/dL (BEAKER) (test code = 633) Triglyceride Reference Range: Low Risk <150 Borderline 150-199 High Risk 200-499 Very High Risk >=500Cholesterol Reference Range: Low Risk <200 Borderline 200-239 High Risk >240HDL Cholesterol Reference Range: Low Risk >=60 High Risk <40LDL Cholesterol Reference Range: Optimal <100 Near Optimal 100-129 Borderline 130-159 High 160-189 Very High >=190LITHIUM [id number] 08:31:00 Test Item Value Reference Range Comments LITHIUM LEVEL (BEAKER) (test code = 630) 0.4 mmol/L 0.8-1.2 RAPID DRUG SCREEN, [id number] 07:54:00 Test Item Value Reference Range Comments BARBITURATE URINE (BEAKER) (test code = 725) Negative Neg ative BENZODIAZEPINE SCREEN URINE (BEAKER) (test code = Positive Negative 726) COCAINE (METAB.) SCREEN (BEAKER) (test code = 1164) Negative Negative METHADONE SCREEN (BEAKER) (test code = 1436) Negative Neg ative OPIATE SCREEN URINE (BEAKER) (test code = 734) Positive N egative CANNABINOID SCREEN URINE (BEAKER) (test code = 727) Negative Negative AMPH/METHAMPH SCREEN (BEAKER) (test code = 1438) Negative Negative PHENCYCLIDINE SCREEN URINE (BEAKER) (test code = Negative Negative 608) OXYCODONE SCREEN URINE (BEAKER) (test code = 2761) Negative Negative DRUG CUTOFF CONC.Cocaine 300 ng/mL Cannabinoid 50 ng/mL Benzodiazepine 200 ng/mLBarbiturate 200 ng/mLPhencyclidine 25 ng/mLOpiate 300 ng/mLMethadone 300 ng/mLAmphetamine/ 1000 ng/mL MethamphetamineOxycodone 300 ng/mLThis assay provides an unconfirmed qualitative test result for the clinical management of patients in emergency situations. Chain of custody not maintained. Some odyx-iys-orsncyc medications, as well as adulterants, may cause inaccurate results. Clinical correlation should be applied. A more comprehensive drug screen or confirmation of a detected drug may be performed upon request. CREATINE KINASE (CK), TOTAL AND [id number] 07:47:00 Test Item Value Reference Range Comments CREATINE KINASE TOTAL (BEAKER) (test code = 380) 161 U/L 29-200 CREATINE KINASE-MB (BEAKER) (test code = 750) 4.9 ng/mL 0. 0-6.6 CREATINE KINASE-MB INDEX (BEAKER) (test code = 3.0 % 395) CK-MB Reference Range:<6.7 Normal6.7-10.0 Borderline>10.0 AbnormalTROPONIN [id number] 07:47:00 Test Item Value Reference Range Comments TROPONIN I (BEAKER) (test code = 397) 0.04 ng/mL 0.00-0.03 Troponin I (TnI) levels [...] acute neurological disease, and persistent tachyarrhythmia.BASIC METABOLIC [id number] 04:56:00 Test Item Value Reference Range Comments SODIUM (BEAKER) (test 139 meq/L 136-145 code = 381) POTASSIUM (BEAKER) (test 3.4 meq/L 3.5-5.1 code = 379) CHLORIDE (BEAKER) (test 105 meq/L 98-107 code = 382) CO2 (BEAKER) (test code = 25 meq/L 22-29 355) BLOOD UREA NITROGEN 38 mg/dL 7-21 (BEAKER) (test code = 354) CREATININE (BEAKER) (test 1.35 mg/dL 0.57-1.25 code = 358) GLUCOSE RANDOM (BEAKER) 140 mg/dL 70-105 (test code = 652) CALCIUM (BEAKER) (test 8.9 mg/dL 8.4-10.2 code = 697) EGFR (BEAKER) (test code 54 mL/min/1.73 sq m EST IMATED GFR IS NOT = 1092) ACCURATE CREA TININE CLEARANCE IN PRE DICTING GLOMERULAR FILTR ATION RATE. ESTIMATED GFR IS NOT APPLICABLE F OR DIALYSIS PATIENT S. CBC (HEMOGRAM ONLY)2018-05-09 04:38:00 Test Item Value Reference Range Comments WHITE BLOOD CELL COUNT (BEAKER) (test code = 15.8 K/ L 3.5 -10.5 775) RED BLOOD CELL COUNT (BEAKER) (test code = 761) 4.80 M/ L 4.63-6.08 HEMOGLOBIN (BEAKER) (test code = 410) 14.5 GM/DL 13.7-17.5 HEMATOCRIT (BEAKER) (test code = 411) 44.0 % 40.1-51.0 MEAN CORPUSCULAR VOLUME (BEAKER) (test code = 91.7 fL 79 .0-92.2 753) MEAN CORPUSCULAR HEMOGLOBIN (BEAKER) (test code 30.2 pg 25.7-32.2 = 751) MEAN CORPUSCULAR HEMOGLOBIN CONC (BEAKER) (test 33.0 GM/DL 32.3-36.5 code = 752) RED CELL DISTRIBUTION WIDTH (BEAKER) (test code 14.2 % 11.6-14.4 = 412) PLATELET COUNT (BEAKER) (test code = 756) 238 K/CU MM 150-45 0 MEAN PLATELET VOLUME (BEAKER) (test code = 754) 11.5 fL 9.4-12.4 NUCLEATED RED BLOOD CELLS (BEAKER) (test code = 0 /100 WBC 0-0 413) CT, BRAIN, WITHOUT [id number] 21:00:00FINAL REPORT CT, BRAIN, WITHOUT CONTRAST INDICATION: [...] right frontal sinus.Orbital contents: Included portions unremarkable. A dditional findings: Soft tissue hematoma overlying the right frontal scalp. IMPRESSION: Chronic involutional changes without acute traumatic intracranial abnormality. Superficial soft tissue hematomawithout underlying skull fracture on the right. Sphenoid and maxillary sinusitis on the right with secondary CT evidence of chronicity. Signed: JR Alva Robert MDReport Verified Date/Time: 05/08/2018 21:00:20 Reading Location: [address] Reading Room B-TYPE NATRIURETIC FACTOR (BNP)2018-05-08 19:03:00 Test Item Value Reference Range Comments B-TYPE NATRIURETIC PEPTIDE (BEAKER) (test code = 254 pg/mL 0-100 700) CREATINE KINASE (CK), TOTAL AND [id number] 19:02:00 Test Item Value Reference Range Comments CREATINE KINASE TOTAL (BEAKER) (test code = 380) 150 U/L 29-200 CREATINE KINASE-MB (BEAKER) (test code = 750) 5.5 ng/mL 0. 0-6.6 CREATINE KINASE-MB INDEX (BEAKER) (test code = 3.7 % 395) CK-MB Reference Range:<6.7 Normal6.7-10.0 Borderline>10.0 AbnormalTROPONIN [id number] 19:02:00 Test Item Value Reference Range Comments TROPONIN I (BEAKER) (test code = 397) 0.06 ng/mL 0.00-0.03 Troponin I (TnI) levels [...] acute neurological disease, and persistent tachyarrhythmia.BASIC METABOLIC [id number] 18:32:00 Test Item Value Reference Range Comments SODIUM (BEAKER) (test 137 meq/L 136-145 code = 381) POTASSIUM (BEAKER) (test 3.9 meq/L 3.5-5.1 code = 379) CHLORIDE (BEAKER) (test 102 meq/L 98-107 code = 382) CO2 (BEAKER) (test code = 24 meq/L 22-29 355) BLOOD UREA NITROGEN 35 mg/dL 7-21 (BEAKER) (test code = 354) CREATININE (BEAKER) (test 1.56 mg/dL 0.57-1.25 code = 358) GLUCOSE RANDOM (BEAKER) 119 mg/dL 70-105 (test code = 652) CALCIUM (BEAKER) (test 9.3 mg/dL 8.4-10.2 code = 697) EGFR (BEAKER) (test code 46 mL/min/1.73 sq m EST IMATED GFR IS NOT = 1092) ACCURATE CREA TININE CLEARANCE IN PRE DICTING GLOMERULAR FILTR ATION RATE. ESTIMATED GFR IS NOT APPLICABLE F OR DIALYSIS PATIENT S. CBC W/PLT COUNT & AUTO [id number] 18:28:00 Test Item Value Reference Range Comments WHITE BLOOD CELL COUNT (BEAKER) (test code = 17.1 K/ L 3.5 -10.5 775) RED BLOOD CELL COUNT (BEAKER) (test code = 761) 5.16 M/ L 4.63-6.08 HEMOGLOBIN (BEAKER) (test code = 410) 15.5 GM/DL 13.7-17.5 HEMATOCRIT (BEAKER) (test code = 411) 47.6 % 40.1-51.0 MEAN CORPUSCULAR VOLUME (BEAKER) (test code = 92.2 fL 79 .0-92.2 753) MEAN CORPUSCULAR HEMOGLOBIN (BEAKER) (test code 30.0 pg 25.7-32.2 = 751) MEAN CORPUSCULAR HEMOGLOBIN CONC (BEAKER) (test 32.6 GM/DL 32.3-36.5 code = 752) RED CELL DISTRIBUTION WIDTH (BEAKER) (test code 14.0 % 11.6-14.4 = 412) PLATELET COUNT (BEAKER) (test code = 756) 297 K/CU MM 150-45 0 MEAN PLATELET VOLUME (BEAKER) (test code = 754) 11.3 fL 9.4-12.4 NUCLEATED RED BLOOD CELLS (BEAKER) (test code = 0 /100 WBC 0-0 413) NEUTROPHILS RELATIVE PERCENT (BEAKER) (test code 78 % = 429) LYMPHOCYTES RELATIVE PERCENT (BEAKER) (test code 14 % = 430) MONOCYTES RELATIVE PERCENT (BEAKER) (test code = 7 % 431) EOSINOPHILS RELATIVE PERCENT (BEAKER) (test code 0 % = 432) BASOPHILS RELATIVE PERCENT (BEAKER) (test code = 0 % 437) NEUTROPHILS ABSOLUTE COUNT (BEAKER) (test code = 13.35 K/ L 1.78-5.38 670) LYMPHOCYTES ABSOLUTE COUNT (BEAKER) (test code = 2.35 K/ L 1.32-3.57 414) MONOCYTES ABSOLUTE COUNT (BEAKER) (test code = 1.23 K/ L 0 .30-0.82 415) EOSINOPHILS ABSOLUTE COUNT (BEAKER) (test code = 0.00 K/ L 0.04-0.54 416) BASOPHILS ABSOLUTE COUNT (BEAKER) (test code = 0.05 K/ L 0 .01-0.08 417) IMMATURE GRANULOCYTES-RELATIVE PERCENT (BEAKER) 1 % 0-1 (test code = 2801) [id number] 18:15:00 Test Item Value Reference Range Comments PARTIAL THROMBOPLASTIN TIME (BEAKER) (test code 30.0 seconds 22.5-36.0 = 760) Prior to initiating heparinXR Fluoroscopy in Imaging per [id number] 12:25:17 Patient: ALHAJI FARAH Date/Time04/05/2018 11:30 CDTReason for Examlumbar laminectomyReportEXAM: FLUOROSCOPIC GUIDANCECLINICAL HISTORY: lumbar laminectomyTECHNIQUE: Fluoroscopic guidance was provided for spinal procedure.FINDINGS:Fluoroscopic guidance was provided for spinal procedure.Fluoroscopy time: Less than 5 minutesIMPRESSION: Fluoroscopic guidance was provided for spinal procedure.LOCATION: R16 Final Dictated by: MD Kirkland Melanie CDictated DT/TM: 04/05/2018 12:24 pmSigned by: MD Kirkland Melanie CSigned (Electronic Signature): 04/05/2018 12:25 pm
--- OUTSIDE RECORDS SUMMARY | 2020-03-02 23:30 | XMS REPORT ---
[...] Problem Atherosclerotic heart disease of I25.10 Active [place] coronary artery without angina pectoris Problem Abdominal [...] hepatic coma Problem Simple chronic bronchitis J41.0 Ac tive Problem Complaints of memory disturbance R41.3 Active Problem Cirrhosis of liver without K74.60 A ctive ascites, unspecified hepatic cirrhosis type Problem Chest pain, unspecified type R07.9 Active Problem Arteriosclerotic cardiovascular I25.10 Active disease (ASCVD) Problem Dementia without behavioral F03.90 Active disturbance, unspecified dementia type Problem Hypertensive emergency I16.1 Activ e Problem History of coronary artery disease Z86.79 Active Problem Constipation, unspecified K59.00 Ac tive constipation type Problem Lumbar degenerative disc disease M51.36 Active Problem Cigarette nicotine dependence F17.210 Active without complication Problem Elevated blood pressure reading R03.0 Active Medications No Known Medications Results No Known Results Summary Purpose eClinicalWorks Submission
--- OUTSIDE RECORDS SUMMARY | 2020-03-02 23:31 | XMS REPORT ---
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 Active Problem Atrial fibrillation, unspecified I48.91 Active type Assessment Pulmonary emphysema, unspecified J43.9 Active emphysema type Problem Cirrhosis of liver without K74.60 [...] nicotine dependence F17.210 Active without complication Assessment Bipolar 1 disorder F31.9 Active Problem History of coronary artery disease Z86.79 Active Problem Chest pain, unspecified type R07.9 Active Assessment Panic attacks F41.0 Active Problem Lumbar degenerative disc disease M51.36 Active Assessment Moderately severe major depression F32.2 Active Problem Bipolar 1 disorder F31.9 Active Problem Elevated blood pressure reading R03.0 Active Problem Constipation, unspecified K59.00 Ac tive constipation type Medications Medication Code Code Instructions Start End Status Dosage System Date Date Amitriptyline HCl ND 10083799625 50 MG Orally Activ e 1 tablet Once a day Dulera ND 32899858678 100-5 MCG/ACT Active 2 puff s Inhalation Twice a day Amiodarone HCl ND 23427870681 200 MG Orally Active 1 tablet Once a day -81 ND 57186088948 81 MG Orally Active 1 tabl et Once a day Isosorbide ND 35074550358 30 MG Orally Active 1 ta blet Mononitrate ER Once a day in the morning Albuterol Sulfate ND 80319436445 (2.5 MG/3ML) March 07, Activ e inhale 1 0.083% 2018 vial by mouth via nebulizer 3 times a day Amlodipine Besylate ND 63272113137 10 MG Orally Aug 22, Act alberto 1 tablet Once a day 2017 Zofran ND 83213399462 4 MG Orally December Active as neede d every 8hrs prn , for nause a nausea 2019 [place] Carbonate ND 54848311815 600 MG Orally Acti ve 1 capsule Once a day at bedtime Atorvastatin Calcium ND 87851219988 20 MG Orally Ac tive 1 tablet Once a day Losartan Potassium ND 15919853750 25 MG Orally Acti ve 1 tablet Once a day Gabapentin ND 94992549314 600 MG Orally Active 1 t ablet three times a day Ipratropium [place] ND 25041356860 0.02 % March 07, Active as Inhalation 1 2018 directed vial Three times a day Carvedilol ND 92373663042 25 MG Orally Active as directed HydrALAZINE HCl ND 65600016135 25 MG Orally Active 1 tablet every 12 hrs with food Citalopram ND 15544312529 20 MG Orally Active 1 ta blet Hydrobromide Once a day Lorazepam ND 46418144004 0.5 MG Orally Active 1 ta blet Once a day prn as needed anxiety /panic attacks [place] [facility] 36296183853 10-325 MG Active 1 tablet Orally every 6 as needed hrs Clonidine HCl [facility] 41850017532 0.2 MG Orally March Active 1 tablet twice a day 27, twice x 1 2017 week then 1 tablet Hydrochlorothiazide [facility] 36827827945 25 MG Orally Act alberto 1 tablet Once a day in the morning Ranolazine ER [facility] 72424058830 500 MG Orally Active 2 tablet Twice a day Lisinopril [facility] 87050430181 20 MG Orally Active 1 ta blet Once a day Results No Known Results Summary Purpose eClinicalWorks Submission
[2020-03-03 00:10] LABS: Protime INR 1.04
[2020-03-03] MEDS ORDERED: ONDANSETRON 4 MG/2 ML VIAL ONE (00:26)
[2020-03-03] MEDS ORDERED: FAMOTIDINE 20 MG/2 ML VIAL IV ONE (00:26)
[2020-03-03] MEDS ORDERED: HYDROMORPHONE HCL 1 MG/ML INJ ONE ×4 (00:29→14:58)
[2020-03-03 00:31] LABS: ALT/SGPT 78 U/L (12-78); AST/SGOT 65 U/L (15-37); Albumin 4.2 g/dL (3.4-5.0); Alkaline Phosphatase 86 U/L (45-117); BUN Blood Urea Nitrogen 17 mg/dL (7-18); Bicarbonate 24 mmol/L (21-32); Bilirubin Direct 0.4 mg/dL (0-0.2); Bilirubin Total 0.7 mg/dL (0.2-1.0); Glucose Level 145 mg/dL (74-106); Magnesium 2.5 mg/dL (1.8-2.4); NT PRO-BNP 5134 pg/mL (<125); Potassium 3.4 mmol/L (3.5-5.1); Protein, Total 9.8 g/dL (6.4-8.2); Sodium Level 138 mmol/L (136-145); Troponin (Emerg Dept Use Only) < 0.02 ng/mL (0.0-0.045)
[2020-03-03 00:39] LABS: Absolute Lymphocytes (CBC) 1.5 K/uL (0.7-4.9); Basophils % 0.6 % (0-1.3); Hematocrit 47.4 % (39.6-49.0); Lymphocytes % 10.8 % (15.3-44.8); MPV 10.4 fL (7.6-11.3); RBC Red Blood Cell Count 5.25 M/uL (4.33-5.43)
[2020-03-03] MEDS ORDERED: METOCLOPRAMIDE 10 MG/2mL INJ ONE (03:17)
--- NOTE | 2020-03-03 05:09 | ER ---
Nurse's Notes [facility] Name: Blayne Macias Age: 59 yrs Sex: Male : 1960 Arrival Date: 03/02/2020 Time: 23:40 Bed 24 Private MD: Diagnosis: Vomiting;Unspecified abdominal pain;Chest pain, unspecified Presentation: 03/02 23:20 Chief complaint: EMS states: Pt has been vomiting all day and cannot keep anything jb4 down. He reports chest pain that worsens when vomiting and having a history of A-fib. Is currently not in A-fib. B/p 217/113, BGL 119. Given 4 of zofran and 350 ml bolus. 23:20 Coronavirus screen: Proceed with normal triage. Ebola Screen: No symptoms or risks jb4 identified at this time. Initial Sepsis Screen: Does the patient meet any 2 criteria? No. Patient's initial sepsis screen is negative. Does the patient have a suspected source of infection? Yes: Acute abdominal pain. Risk Assessment: Do you want to hurt yourself or someone else? Patient reports no desire to harm self or others. Onset of symptoms was March 02, 2020. Care prior to arrival: Medication(s) given: Normal saline infusion, 350 ml zofran 4 mg, IV initiated. 20 GA, in the right forearm. Transition of care: patient was not received from another setting of care. 23:20 Method Of Arrival: EMS: [facility] jb4 23:20 Acuity: SENTHIL 2 jb4 Historical: - Allergies: 23:20 Codeine; jb4 23:20 PENICILLINS; jb4 23:20 Morphine; jb4 - Home Meds: 23:20 atorvastatin 20 mg oral tab 1 tab once daily [Active]; amiodarone 200 mg Oral tab 0.5 jb4 tab 2 times per day [Active]; amlodipine 10 mg tab 1 tab once daily [Active]; aspirin 81 mg Oral chew 1 tab once daily [Active]; carvedilol 25 mg oral tab 1 tab 2 times per day [Active]; citalopram 20 mg tab 1 tab once daily [Active]; clopidogrel 75 mg oral tab 1 tab once daily [Active]; isosorbide mononitrate 60 mg Oral Tb24 1 tab once daily [Active]; lithium carbonate 600 mg oral cap 1 cap nightly [Active]; losartan 25 mg Oral tab 1 tab once daily [Active]; potassium chloride 20 mEq Oral TbER 1 tab once daily [Active]; - PMHx: 23:20 "electrical stimulator"; Atrial Fib; Back pain; Bipolar disorder; CAD; CHF; chronic jb4 back pain; Cirrhosis; COPD; Hepatitis; High Cholesterol; Hypertension; Pneumonia; - PSHx: 23:20 CABG; back; Cholecystectomy; Appendectomy; jb4 - Immunization history:: Adult Immunizations up to date. - Social history:: Smoking status: Patient reports the use of cigarette tobacco products, smokes one-half pack cigarettes per day, Patient/guardian denies using alcohol, street drugs. Screenin:20 Abuse screen: Denies threats or abuse. Nutritional screening: No deficits noted. jb4 Tuberculosis screening: No symptoms or risk factors identified. Fall Risk IV access (20 points). Total Kang Fall Scale indicates No Risk (0-24 pts). Assessment: 23:20 General: Appears in no apparent distress. uncomfortable, Behavior is calm, cooperative, jb4 appropriate for age. Pain: Complains of pain in chest and abdomen Pain does not radiate. Pain currently is 7 out of 10 on a pain scale. Quality of pain is described as pressure, Like someone is standing on my chest. Pain began Vomiting and abdominal pain started 1 day ago. Chest pain started a few hours ago. Is continuous. Neuro: Level of Consciousness is awake, alert, obeys commands, Oriented to person, place, time, situation. Cardiovascular: Heart tones S1 S2 present Patient's skin is warm and dry. Rhythm is sinus rhythm. Respiratory: Airway is patent Respiratory effort is even, unlabored, Respiratory pattern is regular, symmetrical, Breath sounds are clear bilaterally. GI: Bowel sounds present X 4 quads. Abd is soft X 4 quads Abdomen is tender to palpation X 4 quads. : No signs and/or symptoms were reported regarding the genitourinary system. EENT: No signs and/or symptoms were reported regarding the EENT system. Derm: Skin is intact, Skin is pink, warm \\T\\ dry. Musculoskeletal: Circulation, motion, and sensation intact. Range of motion: intact in all extremities. 23:40 Reassessment: Provider notified of b/p of 235/107, no new orders at this time. jb4 03/03 00:00 Reassessment: Patient appears in no apparent distress at this time. Patient and/or jb4 family updated on plan of care and expected duration. Pain level reassessed. Patient is alert, oriented x 3, equal unlabored respirations, skin warm/dry/pink. 01:00 Reassessment: Patient appears in no apparent distress at this time. Patient and/or jb4 family updated on plan of care and expected duration. Pain level reassessed. Patient is alert, oriented x 3, equal unlabored respirations, skin warm/dry/pink. Pt reports pain has decreased to 6/10 Patient states feeling better. 01:08 Reassessment: Provider notified of Manual blood pressure of 218/106, Given verbal order jb4 to PO challenge patient to see if he can take oral medicaitons. 01:20 Reassessment: PT verbalized feelin nauseous after PO challenge, Provider notified, no jb4 new orders at this time. 02:00 Reassessment: Patient appears in no apparent distress at this time. Patient and/or jb4 family updated on plan of care and expected duration. Pain level reassessed. Patient is alert, oriented x 3, equal unlabored respirations, skin warm/dry/pink. 02:30 Reassessment: PT to CT. jb4 03:55 Reassessment: Patient appears in no apparent distress at this time. Patient and/or jb4 family updated on plan of care and expected duration. Pain level reassessed. Patient is alert, oriented x 3, equal unlabored respirations, skin warm/dry/pink. Pt reports pain is 5/10. States " It is back to where I can take a nap." Patient states feeling better. Vital Signs: 03/02 23:20 BP 229 / 116; Pulse 67; Resp 16; Temp 98.2(O); Pulse Ox 100% on R/A; Weight 63.5 kg jb4 (R); Height 5 ft. 9 in. (175.26 cm) (R); Pain 7/10; 23:30 BP 235 / 107; Pulse 72; Resp 16; Pulse Ox 100% on R/A; jb4 03/03 00:30 BP 219 / 102; Pulse 80; Resp 16; Pulse Ox 95% on R/A; jb4 00:52 BP 187 / 102; Pulse 73; Resp 17; Pulse Ox 96% on R/A; jb4 01:00 BP 201 / 101 LA (auto/); Pulse 73; Resp 17; Pulse Ox 96% on R/A; jb4 01:08 BP 218 / 106 RA (man/); jb4 02:00 BP 214 / 112; Pulse 68; Resp 16; Pulse Ox 98% on R/A; jb4 03:00 BP 189 / 89; Pulse 72; Resp 16; Pulse Ox 98% on R/A; Pain 9/10; jb4 03:30 BP 149 / 92; Pulse 66; Resp 13; Pulse Ox 97% on R/A; jb4 03/02 23:20 Body Mass Index 20.67 (63.50 kg, 175.26 cm) jb4 00:52 Provider notified of B/p, no new orders. jb4 01:08 Provider notified. jb4 03:00 Provider notified of Blood pressure and pain, see MAR for orders. 4 ED Course: 03/02 23:20 Arm band placed on right wrist. jb4 23:20 Patient has correct armband on for positive identification. Placed in gown. Bed in low jb4 position. Call light in reach. Side rails up X 1. quality assurance monitor body on. Pulse ox on. NIBP on. 23:20 Maintain EMS IV. Dressing intact. Site clean \\T\\ dry. Gauge \\T\\ site: 20g RFA. olive 4 23:40 Patient arrived in ED. lp1 23:46 Leonid Coronado MD is Attending Physician. 7 23:49 Wilfrido Mcnulty RN is Primary Nurse. jb4 03/03 00:06 Triage completed. jb4 00:15 XRAY Chest (1 view) In Process Unspecified. EDMS 03:15 CT Chest Angio In Process Unspecified. EDMS 03:19 CT Abd/Pelvis - IV Contrast Only In Process Unspecified. EDMS 05:08 Qing Anders MD is Hospitalizing Provider. 7 Administered Medications: 00:29 Drug: Pepcid 20 mg Route: IVP; Site: right forearm; jb4 01:00 Follow up: Response: No adverse reaction jb4 00:30 Drug: Zofran (Ondansetron) 4 mg Route: IVP; Site: right forearm; jb4 01:00 Follow up: Response: No adverse reaction; Nausea is decreased jb4 00:32 Drug: Dilaudid 1 mg {Note: Rass score 0. Pt reports being able to take Dilaudid with no jb4 advers reaction. .} Route: IVP; Site: right antecubital; 01:00 Follow up: Response: No adverse reaction; Pain is decreased; RASS: Alert and Calm (0) jb4 03:18 Drug: Reglan 10 mg Route: IVP; Site: right forearm; jb4 03:58 Follow up: Response: No adverse reaction; Nausea is decreased jb4 03:20 Drug: Dilaudid 1 mg {Note: rass score 0.} Route: IVP; Site: right forearm; jb4 03:58 Follow up: Response: No adverse reaction; Pain is decreased; RASS: Alert and Calm (0) jb4 Outcome: 05:09 Decision to Hospitalize by Provider. [facility] 15:11 Patient left the ED. eb Signatures: Dispatcher [employer] EDMS Roselia Joshi RN RN lp1 Wilfrido Mcnulty RN RN jb4 Katarina Gan Maurice, MD MD 7 Corrections: (The following items were deleted from the chart) 00:33 00:32 Dilaudid 1 mg IVP in right antecubital jb4 jb4 02:37 03/02 23:40 Reassessment: Provider notified of b/p of 235/107 jb4 jb4
--- NOTE | 2020-03-03 05:09 | EDPHYS ---
Physician Documentation [facility] Name: Blayne Macias Age: 59 yrs Sex: Male : 1960 Arrival Date: 03/02/2020 Time: 23:40 Bed 24 Private MD: ED Physician Leonid Coronado HPI: 03/03 00:25 This 59 yrs old Male presents to ER via EMS with complaints of Nausea, mh7 vomiting, chest pain. 00:25 This 59 yrs old Male presents to ER via EMS with complaints of Nausea, mh7 Vomiting. 00:27 This 59 yrs old Male presents to ER via EMS with complaints of Nausea, mh7 Vomiting. 00:25 The patient or guardian reports chest pain that is located primarily in the anterior mh7 chest wall, left. 00:27 The patient presents to the emergency department with nausea, that is moderate, mh7 vomiting, that is intermittent, described as unknown, abdominal pain, of the umbilical area, right upper quadrant and left upper quadrant, described as burning, intermittent, sharp, waxing and waning. Onset: The symptoms/episode began/occurred today. Possible causes: unknown. The symptoms are aggravated by nothing. The symptoms are alleviated by nothing. Associated signs and symptoms: Pertinent negatives: anorexia, belching, constipation, diarrhea, dysuria, fever, flatulence, GI bleeding, hematuria. Severity of symptoms: At their worst the symptoms were moderate just prior to arrival, in the emergency department the symptoms are unchanged. Historical: - Allergies: 03/02 23:20 Codeine; jb4 23:20 PENICILLINS; jb4 23:20 Morphine; jb4 - Home Meds: 23:20 atorvastatin 20 mg oral tab 1 tab once daily [Active]; amiodarone 200 mg Oral tab 0.5 jb4 tab 2 times per day [Active]; amlodipine 10 mg tab 1 tab once daily [Active]; aspirin 81 mg Oral chew 1 tab once daily [Active]; carvedilol 25 mg oral tab 1 tab 2 times per day [Active]; citalopram 20 mg tab 1 tab once daily [Active]; clopidogrel 75 mg oral tab 1 tab once daily [Active]; isosorbide mononitrate 60 mg Oral Tb24 1 tab once daily [Active]; lithium carbonate 600 mg oral cap 1 cap nightly [Active]; losartan 25 mg Oral tab 1 tab once daily [Active]; potassium chloride 20 mEq Oral TbER 1 tab once daily [Active]; - PMHx: 23:20 "electrical stimulator"; Atrial Fib; Back pain; Bipolar disorder; CAD; CHF; chronic jb4 back pain; Cirrhosis; COPD; Hepatitis; High Cholesterol; Hypertension; Pneumonia; - PSHx: 23:20 CABG; back; Cholecystectomy; Appendectomy; jb4 - Immunization history:: Adult Immunizations up to date. - Social history:: Smoking status: Patient reports the use of cigarette tobacco products, smokes one-half pack cigarettes per day, Patient/guardian denies using alcohol, street drugs. ROS: 03/03 00:29 Constitutional: Negative for fever, chills, and weight loss, Eyes: Negative for injury, mh7 pain, redness, and discharge, ENT: Negative for injury, pain, and discharge, Neck: Negative for injury, pain, and swelling, Respiratory: Negative for shortness of breath, cough, wheezing, and pleuritic chest pain, Back: Negative for injury and pain, : Negative for injury, bleeding, discharge, and swelling, MS/Extremity: Negative for injury and deformity, Skin: Negative for injury, rash, and discoloration, Neuro: Negative for headache, weakness, numbness, tingling, and seizure, Psych: Negative for depression, anxiety, suicide ideation, homicidal ideation, and hallucinations, Allergy/Immunology: Negative for hives, rash, and allergies, Endocrine: Negative for neck swelling, polydipsia, polyuria, polyphagia, and marked weight changes, Hematologic/Lymphatic: Negative for swollen nodes, abnormal bleeding, and unusual bruising. Cardiovascular: Positive for chest pain, of the left side, Negative for edema, orthopnea, palpitations, paroxysmal nocturnal dyspnea. Abdomen/GI: Positive for abdominal pain, nausea and vomiting, Negative for diarrhea, constipation, abdominal distension, anorexia, dysphagia, hematemesis, black/tarry stool, rectal pain, rectal bleeding, bowel incontinence, flatulence. Exam: 00:29 Constitutional: This is a well developed, well nourished patient who is awake, alert, mh7 and in no acute distress. Head/Face: Normocephalic, atraumatic. Eyes: Pupils equal round and reactive to light, extra-ocular motions intact. Lids and lashes normal. Conjunctiva and sclera are non-icteric and not injected. Cornea within normal limits. Periorbital areas with no swelling, redness, or edema. ENT: Nares patent. No nasal discharge, no septal abnormalities noted. Tympanic membranes are normal and external auditory canals are clear. Oropharynx with no redness, swelling, or masses, exudates, or evidence of obstruction, uvula midline. Mucous membranes moist. Neck: Trachea midline, no thyromegaly or masses palpated, and no cervical lymphadenopathy. Supple, full range of motion without nuchal rigidity, or vertebral point tenderness. No Meningismus. Chest/axilla: Normal chest wall appearance and motion. Nontender with no deformity. No lesions are appreciated. Back: No spinal tenderness. No costovertebral tenderness. Full range of motion. Skin: Warm, dry with normal turgor. Normal color with no rashes, no lesions, and no evidence of cellulitis. MS/ Extremity: Pulses equal, no cyanosis. Neurovascular intact. Full, normal range of motion. Neuro: Awake and alert, GCS 15, oriented to person, place, time, and situation. Cranial nerves II-XII grossly intact. Motor strength 5/5 in all extremities. Sensory grossly intact. Cerebellar exam normal. Normal gait. 00:29 Cardiovascular: Rate: normal, Rhythm: regular, Pulses: no pulse deficits are appreciated, Heart sounds: normal, normal S1and S2, Edema: is not appreciated, JVD: is not appreciated. 00:29 ECG was reviewed by the Attending Physician. 00:29 Respiratory: the patient does not display signs of respiratory distress, Respirations: normal, symetrical, no use of accessory muscles, no appreciated paradoxical movements, no prolonged exhalations, no pursed lip breathing, no retractions, no shallow respirations, no splinting, no tachypnea, Breath sounds: rhonchi, that are mild, are scattered. Vital Signs: 03/02 23:20 BP 229 / 116; Pulse 67; Resp 16; Temp 98.2(O); Pulse Ox 100% on R/A; Weight 63.5 kg jb4 (R); Height 5 ft. 9 in. (175.26 cm) (R); Pain 7/10; 23:30 BP 235 / 107; Pulse 72; Resp 16; Pulse Ox 100% on R/A; jb4 03/03 00:30 BP 219 / 102; Pulse 80; Resp 16; Pulse Ox 95% on R/A; jb4 00:52 BP 187 / 102; Pulse 73; Resp 17; Pulse Ox 96% on R/A; jb4 01:00 BP 201 / 101 LA (auto/); Pulse 73; Resp 17; Pulse Ox 96% on R/A; jb4 01:08 BP 218 / 106 RA (man/); jb4 02:00 BP 214 / 112; Pulse 68; Resp 16; Pulse Ox 98% on R/A; jb4 03:00 BP 189 / 89; Pulse 72; Resp 16; Pulse Ox 98% on R/A; Pain 9/10; jb4 03:30 BP 149 / 92; Pulse 66; Resp 13; Pulse Ox 97% on R/A; jb4 03/02 23:20 Body Mass Index 20.67 (63.50 kg, 175.26 cm) jb4 00:52 Provider notified of B/p, no new orders. jb4 01:08 Provider notified. jb4 03:00 Provider notified of Blood pressure and pain, see [facility] for orders. jb4 MDM: 03/02 23:50 Patient medically screened. [facility] 03/03 05:09 Differential diagnosis: Nonspecific abd pain, gastritis, pancreatitis, diverticulitis. [facility] Differential diagnosis: Chest pain. Data reviewed: vital signs, nurses notes, EMS record, EKG, radiologic studies, plain films. Counseling: I had a detailed discussion with the patient and/or guardian regarding: the historical points, exam findings, and any diagnostic results supporting the discharge/admit diagnosis, lab results, radiology results, the need for further work-up and treatment in the hospital. Response to treatment: the patient's symptoms have markedly improved after treatment. ED course: Feels better, NAD, VSS, no focal neurological deficits. Still has some intermittent abdominal pain and nausea. Currently no chest pain or SOB. Discussed all test results and findings with the patient and recommended admission for further care and evaluation. Discussed with and admitted to DR. Anders.. 03/02 23:50 Order name: Basic Metabolic Panel; Complete Time: 01:38 [facility] 03/02 23:50 Order name: CBC with Diff; Complete Time: :38 [facility] 03/02 23:50 Order name: LFT's; Complete Time: :38 jb4 03/02 23:50 Order name: Magnesium; Complete Time: 01:38 [facility] 03/02 23:50 Order name: NT PRO-BNP; Complete Time: :38 [facility] 03/02 23:50 Order name: PT-INR; Complete Time: 01:38 [facility] 03/02 23:50 Order name: Troponin (emerg Dept Use Only); Complete Time: 01:38 [facility] 03/02 23:50 Order name: XRAY Chest (1 view) [facility] 03/02 23:56 Order name: Lipase; Complete Time: 01:38 [facility] 03/03 05:40 Order name: Lipid Profile [facility] 03/03 05:40 Order name: Lipid Profile [facility] 03/03 05:40 Order name: Troponin I [facility] 03/03 05:40 Order name: Troponin I [facility] 03/03 05:40 Order name: Troponin I [facility] 03/02 23:50 Order name: EKG; Complete Time: 23:51 [facility] 03/02 23:50 Order name: Cardiac monitoring; Complete Time: 23:50 [facility] 03/02 23:50 Order name: EKG - Nurse/Tech; Complete Time: 23:50 [facility] 03/02 23:50 Order name: IV Saline Lock; Complete Time: 23:50 [facility] 03/02 23:50 Order name: Labs collected and sent; Complete Time: 23:50 [facility] 03/02 23:50 Order name: O2 Per Protocol; Complete Time: 23:50 [facility] 03/03 01:41 Order name: CT Chest Angio [facility] 03/03 01:41 Order name: CT Abd/Pelvis - IV Contrast Only [facility] 03/03 05:40 Order name: Heart Healthy [facility] 03/03 05:41 Order name: Echo with Doppler [facility] 03/03 05:41 Order name: Echo with Doppler [facility] 03/02 23:50 Order name: O2 Sat Monitoring; Complete Time: 23:50 [facility] EC:29 Rate is 68 beats/min. Rhythm is regular. QRS [place] is Normal. RI interval is normal. QRS mh7 interval is normal. QT interval is prolonged at 574 msec. Q waves are Old. T waves are Inverted in leads V1, V2, V3. No ST changes noted. Administered Medications: 00:29 Drug: Pepcid 20 mg Route: IVP; Site: right forearm; jb4 01:00 Follow up: Response: No adverse reaction jb4 00:30 Drug: Zofran (Ondansetron) 4 mg Route: IVP; Site: right forearm; jb4 01:00 Follow up: Response: No adverse reaction; Nausea is decreased jb4 00:32 Drug: Dilaudid 1 mg {Note: Rass score 0. Pt reports being able to take Dilaudid with no jb4 advers reaction. .} Route: IVP; Site: right antecubital; 01:00 Follow up: Response: No adverse reaction; Pain is decreased; RASS: Alert and Calm (0) jb4 03:18 Drug: Reglan 10 mg Route: IVP; Site: right forearm; jb4 03:58 Follow up: Response: No adverse reaction; Nausea is decreased jb4 03:20 Drug: Dilaudid 1 mg {Note: rass score 0.} Route: IVP; Site: right forearm; jb4 03:58 Follow up: Response: No adverse reaction; Pain is decreased; RASS: Alert and Calm (0) jb4 Disposition: 07:02 Co-signature as Attending Physician, Leonid Coronado MD. [facility] Disposition: 03/03/20 05:09 Hospitalization ordered by Qing Anders for Observation. Preliminary diagnosis are Vomiting, Unspecified abdominal pain, Chest pain, unspecified. - Bed requested for Telemetry/MedSurg (observation). - Status is Observation. eb - Condition is Stable. - Problem is new. - Symptoms have improved. Signatures: Dispatcher [employer] EDSD Monika Rios RN RN mw Baxter, Heather, RN RN hb Bryson, James, RN RN jb4 Katarina Gan Maurice, MD MD mh7 Corrections: (The following items were deleted from the chart) 06:03 05:09 Hospitalization Ordered by Qing Anders MD for Observation. Preliminary mw diagnosis is Vomiting; Unspecified abdominal pain; Chest pain, unspecified. Bed requested for Telemetry/MedSurg (observation). Status is Observation. Condition is Stable. Problem is new. Symptoms have improved. mh7 14:13 06:03 03/03/2020 05:09 Hospitalization Ordered by Qing Anders MD for Observation. hb Preliminary diagnosis is Vomiting; Unspecified abdominal pain; Chest pain, unspecified. Bed requested for [facility] ER HOLD. Status is Observation. Condition is Stable. Problem is new. Symptoms have improved. mw 15:11 14:13 03/03/2020 05:09 Hospitalization Ordered by Qing Anders MD for Observation. eb Preliminary diagnosis is Vomiting; Unspecified abdominal pain; Chest pain, unspecified. Bed requested for Telemetry/MedSurg (observation). Status is Observation. Condition is Stable. Problem is new. Symptoms have improved. hb
[2020-03-03] MEDS ORDERED: MORPHINE 4 MG/ML SYR IV PRN (05:36)
[2020-03-03] MEDS ORDERED: ACETAMINOPHEN 500 MG TAB PO PRN (05:36)
[2020-03-03] MEDS ORDERED: HYDROCODONE/APAP 10/325 TAB PO PRN (05:40)
--- NOTE | 2020-03-03 05:49 | P.HP ---
Certification for Inpatient Patient admitted to: Observation With expected LOS: <2 Midnights Patient will require the following post-hospital care: None Practitioner: I am a practitioner with admitting privileges, knowledge of patient current condition, hospital course, and medical plan of care. Services: Services provided to patient in accordance with Admission requirements found in Title 42 Section 412.3 of the Code of Federal Regulations Patient History Date of Service: 03/03/20 Reason for admission: Chest pain/abdominal pain/nausea and vomiting/hypertensive urgency History of Present Illness: Patient is a 59-year-old gentleman who came to the hospital with abdominal pain/chest pain/intractable nausea and vomiting. Patient has been feeling p oorly for the last 12 hr. His history of Coronary artery bypass many years ago and he has been following up with a licensed chemical spray technician in the [facility]. He has been in a pretty good state of health until yesterday when he started getting nauseated. He started having some chest discomfort along with some epigastric pain. He had multiple episodes of vomiting. He decided to come to the hospital for further evaluation. In the ER patient had multiple diagnostic studies done including CT of the chest/abdomen/pelvis. Patient also had cardiac troponins which were negative. Patient's vital signs have been fairly stable except for the blood pressure which is been elevated at 190/120. Patient been started on some cardiac medications to lower his blood pressure. Patient took his blood pressure meds this evening; however, he vomited them. His blood pressure is been uncontrolled. He will be admitted to the hospital for further evaluation. Allergies Penicillins Allergy (Intermediate, Verified 04/15/19 21:16) Hives/Rash codeine [From Tylenol-Codeine] Allergy (Verified 04/15/19 21:16) Itching Home Medications: Aspirin 81 mg PO DAILY 11/21/17 Amitriptyline [Elavil*] 50 mg PO BEDTIME PRN 06/10/18 Amlodipine [Norvasc*] 10 mg PO DAILY 06/10/18 Hydrocodone 10/APAP 325 [[place] 10/325*] 1 tab PO Q8H PRN 06/10/18 [place] Carbonate [Lithotabs *] 600 mg PO BEDTIME 06/10/18 carvediloL [Coreg*] 25 mg PO BID 6AM 6PM 06/10/18 Amiodarone HCl [Cordarone*] 1 tab PO DAILY 04/15/19 Isosorbide Mononitrate [Isosorbide Mononitrate ER] 1 tab PO DAILY 04/15/19 Losartan Potassium 25 mg PO DAILY 04/15/19 Mometasone/Formoterol [Dulera 100 Mcg/5 Mcg Inhaler] 1 puff IH BID 04/15/19 Nitroglycerin 0.4 mg SL SEECOM PRN 04/15/19 Potassium Chloride 20 meq PO DAILY 04/15/19 Ranolazine [Ranexa] 1,000 mg PO BID 04/15/19 Simvastatin 40 mg PO BEDTIME 04/15/19 hydroCHLOROthiazide [Hydrochlorothiazide*] 25 mg PO DAILY 04/15/19 Cefuroxime Axetil [Cefuroxime] 500 mg PO BID #22 tab 04/19/19 - Past Medical/Surgical History Diabetic: No -: Chronic back pain, Pain management-Dr. Connolly -: HTN -: CAD, CABG times 2 vessels in December 2015 -: COPD -: Exposure to asbestosis -: Bipolar disorder -: Hyperlipidemia -: Severe sleep apnea -: Chronic pain syndrome -: CHF -: afib -: pneumonia -: Right Leg surgery -: Back surgery -: Cholecystectomy -: Cardiac catheterization -: CABG- Double bypass 12/2015 -: Neck Surgery Psychosocial/ Personal History: Single, Children-1, Work-Disabled due to back. - Family History Mother Medical History: Cancer Father Medical History: Heart disease, Cancer - Social History Smoking Status: Former smoker Alcohol use: No CD- Drugs: No Caffeine use: Yes Review of Systems 10-point ROS is otherwise unremarkable Physical Examination - Vital Signs Temperature: 98 F Blood Pressure: 190/120 Pulse: 78 Respirations: 18 Pulse Ox (%): 95 - Physical Exam General: Alert, In no apparent distress, Oriented x3 HEENT: Atraumatic, PERRLA, Mucous membr. moist/pink, EOMI, Sclerae nonicteric Neck: Supple, 2+ carotid pulse no bruit, No LAD, Without JVD or thyroid abnormality Respiratory: Clear to auscultation bilaterally, Normal air movement Cardiovascular: Regular rate/rhythm, Normal S1 S2, Systolic murmur Gastrointestinal: Normal bowel sounds, Non-distended, No rebound, No guarding, Tenderness (Epigastric region) Musculoskeletal: No clubbing, No swelling, No tenderness Integumentary: No rashes Neurological: Normal gait, Normal speech, Normal tone, Sensation intact, Cranial nerves 3-12 intact, Normal affect, Abnormal strength Lymphatics: No axilla or inguinal lymphadenopathy - Studies Laboratory Data (last 24 hrs) 03/03/20 00:11: Lipase 295 03/03/20 00:11: WBC 13.5 H, Hgb 15.6, Hct 47.4, Plt Count 291 03/02/20 23:45: PT 12.3, INR 1.04 03/02/20 23:45: Sodium 138, Potassium 3.4 L, BUN 17, Creatinine 0.93, Glucose 145 H, Magnesium 2.5 H, Total Bilirubin 0.7, AST 65 H, ALT 78, Alkaline Phosphatase 86 Assessment & Plan - Problems (Diagnosis) (1) Chest pain, rule out acute myocardial infarction Current Visit: Yes Status: Acute (2) Abdominal pain Current Visit: Yes Status: Acute (3) Intractable nausea and vomiting Current Visit: Yes Status: Acute (4) History of coronary artery bypass graft Current Visit: Yes Status: Acute (5) Hypertensive urgency, malignant Current Visit: Yes Status: Acute (6) Acute gastroenteritis Current Visit: No Status: Acute (7) Atrial fibrillation Onset Date: 10/13/16 Current Visit: No Status: Chronic Qualifiers: (8) CAD (coronary artery disease) Onset Date: 01/20/16 Current Visit: No Status: Chronic Qualifiers: (9) CHF (congestive heart failure) Onset Date: 01/20/16 Current Visit: No Status: Chronic (10) COPD exacerbation Onset Date: 10/29/16 Current Visit: No Status: Chronic (11) BRIAN (obstructive sleep apnea) Onset Date: 10/13/16 Current Visit: No Status: Chronic - Plan 1. Serial troponins and EKG 2. Cardiology consultation 3. Echocardiogram and patient may benefit from outpatient stress test 4. Anti-platelet therapy, anti arrhythmic, statin, and O2 as needed 5. Continue with IV Dilaudid for pain 6. Will continue sublingual nitro as needed 7. Anti emetics 8. Gentle hydration 9. May need to repeat KUB in a.m.; will start diet. [place] is that this is mainly related to awhile infection but will monitor him closely 10. Strict blood pressure control; monitor hemodynamics closely 11. Patient may need further cardiac testing as an outpatient. Will monitor his labs and repeat his troponins. If these remain negative then anticipate him going home with outpatient follow-up. Discharge Plan: Home Plan to discharge in: 48 Hours - Advance Directives Does patient have a Living Will: Yes Does patient have a Durable POA for Healthcare: Yes - Code Status/Comfort Care Code Status Assessed: Yes Code Status: Full Code Critical Care: No Time Spent Managing PTS Care (In Minutes): 45
[2020-03-03] MEDS ORDERED: METOPROLOL TARTRATE 5 MG/5 ML INJ IV ONE ×2 (06:00→06:37)
[2020-03-03] MEDS: PROMETHAZINE 25 MG TABLET PO PRN ×2 (06:50→14:53)
[2020-03-03] MEDS ORDERED: PROMETHAZINE INJ 25 MG/ML AMP ONE (06:57)
[2020-03-03] MEDS: HYDROMORPHONE HCL 1 MG/ML INJ IV PRN ×5 (07:00→22:27)
[2020-03-03] MEDS ORDERED: PROMETHAZINE 25 MG TABLET ONE ×2 (07:00→14:58)
[2020-03-03 07:57] VITALS: BMI 20.7
[2020-03-03] MEDS: ENOXAPARIN 40 MG/0.4 ML SQ SCH (08:27)
[2020-03-03] MEDS ORDERED: ENOXAPARIN 40 MG/0.4 ML SQ ONE (08:33)
--- NOTE | 2020-03-03 08:39 | EKG ---
Test Date: 2020-03-02 Test Time: 23:35:12 Wooden Frame Builder: OSKAR MEASUREMENT RESULTS: Intervals: Rate: 68 AK: 160 QRSD: 104 QT: 574 QTc: 610 Amalia: P: 74 AK: 160 QRS: 36 T: 69 INTERPRETIVE STATEMENTS: Normal sinus rhythm Possible Left atrial enlargement Left ventricular hypertrophy with repolarization abnormality Anteroseptal infarct, age undetermined Prolonged QT Abnormal ECG Compared to ECG 06/09/2019 11:22:11 Early repolarization now present Prolonged QT interval now present ST (T wave) deviation no longer present Possible ischemia no longer present Myocardial infarct finding still present Electronically Signed On 03-03-20 08:38:25 CDT by Ghulam Berrios
[2020-03-03] MEDS ORDERED: AMIODARONE HCL 200 MG TAB PO SCH ×2 (09:00→22:30)
[2020-03-03] MEDS ORDERED: LOSARTAN POTASSIUM 50 MG TABLET PO SCH (09:00)
[2020-03-03] MEDS ORDERED: ISOSORBIDE MONO SR 30 MG TAB PO SCH (09:00)
[2020-03-03] MEDS ORDERED: CLOPIDOGREL 75 MG TABLET PO SCH ×2 (09:00→22:45)
[2020-03-03] MEDS ORDERED: ASPIRIN EC 81 MG TAB PO SCH (09:00)
--- NOTE | 2020-03-03 11:02 | RAD REPORT ---
EXAM DESCRIPTION: RAD - Chest Single View - 03/03/2020 12:15 am CLINICAL HISTORY: CHEST PAIN Chest pain. COMPARISON: Chest Single View dated 06/09/2019; Chest Single View dated 04/15/2019; Chest Single View dated 07/21/2018; Chest Single View dated 06/09/2018 FINDINGS: Portable technique limits examination quality. The lungs are grossly clear. The heart is normal in size. Sternotomy wires are present. IMPRESSION: No acute intrathoracic process suspected.
[2020-03-03] MEDS: NICOTINE 21 MG/PAT TD SCH (20:51)
[2020-03-03] MEDS ORDERED: LITHIUM CARBONATE 600 MG CAP PO SCH (21:00)
[2020-03-03] MEDS ORDERED: LITHIUM CARBONATE 300 MG TAB PO SCH (21:00)
[2020-03-03] MEDS ORDERED: ATORVASTATIN 20 MG TAB PO SCH ×3 (21:00)
--- NOTE | 2020-03-03 21:28 | RAD REPORT ---
EXAM DESCRIPTION: CT Angiography Chest With Intravenous Contrast CLINICAL HISTORY: The patient is 59 years old and is Male; CHEST PAIN TECHNIQUE: Axial computed tomographic angiography images of the chest with intravenous contrast. S agittal and coronal reformatted images were created and reviewed. This CT exam was performed using one or more of the following dose reduction techniques: automated exposure control, adjustment of t he mA and/or kV according to patient size, and/or use of iterative reconstruction technique. MIP reconstructed images were created and reviewed. COMPARISON: CT of the chest, abdomen, pelvis April 15, 2019. FINDINGS: PULMONARY ARTERIES: There are no obvious filling defects identified within the pulmonary arteries to suggest pulmonary embolism. AORTA: Atherosclerosis of the vasculature is present. No thoracic aortic aneurysm. LUNGS: The lungs are hyperinflated with mild bilateral centrilobular emphysematous change. Calc ified pleural plaquing along the right lung base is noted. No mass. PLEURAL SPACE: Unremarkable. No significant effusion. No pneumothorax. HEART: Hypertrophy of the left ventricle is present. No significant pericardial effusion. No evidence of RV dysfunction. BONES/JOINTS: Median sternotomy wires are noted. No acute fracture. No dislocation. SOFT TISSUES: Unremarkable. LYMPH NODES: Unremarkable. No enlarged lymph nodes. TUBES, LINES AND DEVICES: Evidence of a neural stimulator is noted within the epidural space at approximately T10. IMPRESSION: No evidence of pulmonary embolism. No acute findings. Electronically signed by: Tamika Miguel MD 03/03/2020 3:56 AM CDT Due to temporary technical issues with the PACS/Fluency reporting system, reports are being signed by the in house radiologist as a courtesy to ensure prompt reporting. The interpreting radiologist is f ully responsible for the content of the report.
--- NOTE | 2020-03-03 21:31 | RAD REPORT ---
EXAM DESCRIPTION: CT Abdomen and Pelvis With Intravenous Contrast CLINICAL HISTORY: The patient is 59 years old and is Male; ABD PAIN TECHNIQUE: Axial computed tomography images of the abdomen and pelvis with intravenous contrast. Sagittal an d coronal reformatted images were created and reviewed. This CT exam was performed using one or mor e of the following dose reduction techniques: automated exposure control, adjustment of the mA and/ or kV according to patient size, and/or use of iterative reconstruction technique. COMPARISON: No relevant prior studies available. FINDINGS: LUNG BASES: Unremarkable. No mass. No consolidation. ABDOMEN: LIVER: Unremarkable. No mass. GALLBLADDER AND BILE DUCTS: Surgical clips are present in the right upper quadrant, consistent wi th previous cholecystectomy. Mild biliary dilatation is present, likely postsurgical. PANCREAS: The pancreas is mildly atrophic. SPLEEN: Unremarkable. ADRENALS: Unremarkable. No mass. KIDNEYS AND URETERS: Unremarkable. The kidneys enhance symmetrically. No obstructing renal or ure teral calculus is seen. No hydronephrosis or hydroureter. No perinephric fluid or stranding. STOMACH AND BOWEL: The stomach is distended with fluid and air. The small bowel is normal in dustin iber. A moderate amount of stool is present throughout colon. There is no bowel obstruction. PELVIS: APPENDIX: The appendix is normal in caliber without surrounding inflammation. BLADDER: The bladder is not well distended. REPRODUCTIVE: Unremarkable as visualized. ABDOMEN and PELVIS: INTRAPERITONEAL SPACE: Unremarkable. No free air. No significant fluid collection. BONES/JOINTS: No acute fracture. SOFT TISSUES: The soft tissues are normal. VASCULATURE: Atherosclerosis of the vasculature is present. No abdominal aortic aneurysm. LYMPH NODES: Unremarkable. No enlarged lymph nodes. TUBES, LINES AND DEVICES: A battery pack of a neural stimulator is noted within the right buttoc k region. IMPRESSION: No acute findings on this contrasted CT of the abdomen and pelvis to explain the patient 's symptoms. Electronically signed by: Tamika Miguel MD 03/03/2020 3:53 AM CDT Due to temporary technical issues with the PACS/Fluency reporting system, reports are being signed by the in house radiologist as a courtesy to ensure prompt reporting. The interpreting radiologist is f ully responsible for the content of the report.
[2020-03-03] MEDS ORDERED: ISOSORBIDE MONO SR 60 MG TAB PO SCH (22:30)
[2020-03-04] MEDS: HYDROMORPHONE HCL 1 MG/ML INJ IV PRN ×6 (02:18→23:20)
[2020-03-04 05:37] LABS: Hematocrit 45.9 % (39.6-49.0); Lymphocytes % 28.2 % (15.3-44.8); MPV 10.2 fL (7.6-11.3); RBC Red Blood Cell Count 5.04 M/uL (4.33-5.43)
[2020-03-04 05:58] LABS: Magnesium 2.8 mg/dL (1.8-2.4); Phosphorus 3.2 mg/dL (2.5-4.9); Potassium 4.4 mmol/L (3.5-5.1); Troponin I 0.03 ng/mL (0.0-0.045)
[2020-03-04] MEDS ORDERED: REGADENOSON 0.4 MG/5 ML SYR IV ONE (08:24)
[2020-03-04] MEDS ORDERED: CLOPIDOGREL 75 MG TABLET PO SCH (09:00)
[2020-03-04] MEDS ORDERED: ISOSORBIDE MONO SR 60 MG TAB PO SCH (09:00)
[2020-03-04] MEDS ORDERED: AMIODARONE HCL 200 MG TAB PO SCH ×2 (09:00)
[2020-03-04] MEDS ORDERED: LOSARTAN POTASSIUM 25 MG TABLET PO SCH (09:00)
[2020-03-04] MEDS ORDERED: ASPIRIN EC 81 MG TAB PO SCH (09:00)
[2020-03-04] MEDS ORDERED: LOSARTAN POTASSIUM 50 MG TABLET PO SCH (09:00)
[2020-03-04] MEDS: NICOTINE 21 MG/PAT TD SCH (09:28)
[2020-03-04] MEDS: ASPIRIN EC 81 MG TAB PO SCH (09:29)
[2020-03-04] MEDS: ENOXAPARIN 40 MG/0.4 ML SQ SCH (09:29)
--- NOTE | 2020-03-04 11:41 | RAD REPORT ---
EXAM DESCRIPTION: NM - Rest Stress Cardiac Imaging - 03/04/2020 11:31 am CLINICAL HISTORY: CP Chest pain. COMPARISON: Rest Stress Cardiac Imaging dated 07/22/2018 TECHNIQUE: The patient was administered approximately 10mCi of Tc 99m Sestamibi prior to resting SPE CT imaging of the heart. The patient was then administered approximately 30 mCi of Tc 99m Sestamibi f ollowing exercise or pharmacologic stress. Multiplanar SPECT images were reviewed. FINDINGS: Mild diminished radiopharmaceutical accumulation is seen along the anterior wall of a mode rate-sized with stress. Fixed defect is seen in the LV apex with rest and stress. The end diastolic volume is 125 ml, the end systolic volume is 69 ml, and the ejection fraction is 45 %. IMPRESSION: Moderate sized area of stress-induced ischemia suspected anterior wall. Fixed defect in the region of the LV apex likely related to scarring from prior infarct.
[2020-03-04] MEDS: PROMETHAZINE 25 MG TABLET PO PRN (11:45)
[2020-03-04] MEDS: MORPHINE 2 MG/ML SYR IV PRN ×2 (13:45→21:23)
[2020-03-04] MEDS: carvediloL 25 MG TAB PO SCH ×2 (13:49→17:49)
[2020-03-04 14:18] LABS: Absolute Lymphocytes (CBC) 1.7 K/uL (0.7-4.9); Basophils % 0.8 % (0-1.3); Hematocrit 49.2 % (39.6-49.0); Lymphocytes % 17.4 % (15.3-44.8); MPV 10.5 fL (7.6-11.3); RBC Red Blood Cell Count 5.43 M/uL (4.33-5.43)
[2020-03-04 14:46] LABS: Albumin 3.6 g/dL (3.4-5.0); Bilirubin Total 0.6 mg/dL (0.2-1.0); Magnesium 2.6 mg/dL (1.8-2.4); Potassium 3.7 mmol/L (3.5-5.1); Protein, Total 8.6 g/dL (6.4-8.2)
[2020-03-04] MEDS: ONDANSETRON 4 MG/2 ML VIAL IV PRN ×2 (15:15→21:24)
[2020-03-04] MEDS: HYDRALAZINE HCL 20 MG/ML VIAL IV PRN (16:33)
--- NOTE | 2020-03-04 16:42 | P.PN ---
Subjective Date of Service: 03/04/20 Chief Complaint: Chest pain/abdominal pain/nausea and vomiting/hypertensive urgency Subjective: Other (Patient was doing well this morning. After cardiac stress tests he start to have increased nausea and vomiting. Lab shows mild elevation in liver function tests. Earlier today lipase level was elevated. Patient with history of pancreatitis. Cardiac stress tests abnormal.) Physical Examination - Vital Signs Temperature: 97.8 F Blood Pressure: 160/90 Pulse: 78 Respirations: 19 Pulse Ox (%): 94 - Physical Exam General: Alert, In no apparent distress, Cooperative HEENT: Atraumatic Neck: Supple Respiratory: Clear to auscultation bilaterally, Normal air movement Cardiovascular: Normal pulses, Regular rate/rhythm Gastrointestinal: Normal bowel sounds, Soft and benign, Non-distended, Tenderness (Epigastric pain noted) Integumentary: No tenderness/swelling, No erythema, No warmth, No cyanosis Neurological: Normal speech, Normal strength at 5/5 x4 extr, Normal tone, Normal affect - Studies Medications List Reviewed: Yes Assessment & Plan Discharge Plan: Home Plan to discharge in: 48 Hours Physician Review Additional Text: Impression: Chest pain with significant CAD with prior CABG now with abnormal cardiac stress test Nausea, vomiting with epigastric abdominal pain suspect pancreatitis Hypertension Diabetes mellitus type 2 Hyperlipidemia GERD Plan: Chest pain with significant CAD with prior CABG now with abnormal cardiac stress test: Patient had cardiac stress test today. He was abnormal. Case discussed with cardiology. Cardiology will plan for heart catheterization tomorrow. I have informed them that he does have epigastric pain. Will obtain abdominal ultrasound now. Elevated liver function noted. Bili Bales unremarkable. Nausea medication provided. Will keep the patient NPO. Await ultrasound finding. Will recheck lipase level. Troponin recheck unremarkable. Patient had CT scan upon admission showing no pancreatitis. Patient with history of pancreatitis. Will continue to monitor closely. 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 Possible heart catheterization tomorrow in the morning. Await findings. I will turn the service over to the hospitalist team. I will go over the plan of care with him. Discharge will depend on cardiac finding. Nausea, vomiting with epigastric abdominal pain suspect pancreatitis: Patient NPO at this time. Will provide medication for nausea. Original CT scan showed no pancreatitis. Patient with history pancreatitis. Will obtain repeat lipase now all. This occurred after cardiac stress test. Will also obtain abdominal ultrasound at this time to further evaluate. 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 Hypertension: Continue medication. Will monitor and adjust. Diabetes mellitus type 2: Will obtain A1c. Will monitor closely. Hyperlipidemia: Continue medication GERD: Will provide medication COPD: Continue medication Bipolar disorder on lithium: Will check lithium level. Continue medication Chronic atrial fibrillation: Continue medication. Patient not on chronic anti coagulation therapy. Time Spent Managing Pts Care (In Minutes): 55
[2020-03-04] MEDS ORDERED: SODIUM CHLORIDE 0.9% 10ML INJ IV PRN (17:58)
[2020-03-04] MEDS: METRONIDAZOLE 500mg IVPB 500 MG/100 ML BAG IV SCH (18:58)
[2020-03-04] MEDS: PROMETHAZINE INJ 25 MG/ML AMP IV PRN ×2 (19:00→23:20)
[2020-03-04] MEDS: NA CHLORIDE 0.9% 1,000 ML IV SCH (19:02)
--- NOTE | 2020-03-04 20:17 | RAD REPORT ---
EXAM DESCRIPTION: US - Abdomen Exam Complete - 03/04/2020 8:04 pm CLINICAL HISTORY: Abdominal pain COMPARISON: 2019 FINDINGS: The liver has a normal echotexture. Cholecystectomy. The biliary tree is normal caliber. The pancreas is normal in size and echotexture The right kidney measures 10 centimeters with a normal echotexture. The left kidney measures 10 centimeters with a normal echotexture. The spleen measures 9 centimeters. The abdominal aorta and inferior vena cava appear unremarkable IMPRESSION: No acute abnormality is displayed
[2020-03-04] MEDS: DULERA 100/5 (MOMETASONE/FORMOTEROL) INHALER IH SCH (21:00)
[2020-03-04] MEDS: LOSARTAN POTASSIUM 50 MG TABLET PO SCH (21:28)
[2020-03-04] MEDS: ATORVASTATIN 20 MG TAB PO SCH (21:29)
[2020-03-04] MEDS: CLOPIDOGREL 75 MG TABLET PO SCH (21:29)
[2020-03-04] MEDS: ISOSORBIDE MONO SR 60 MG TAB PO SCH (21:29)
[2020-03-04] MEDS: AMIODARONE HCL 200 MG TAB PO SCH (21:29)
[2020-03-04] MEDS: PANTOPRAZOLE 40 MG INJ IVP SCH (21:30)
[2020-03-04] MEDS: LITHIUM CARBONATE 300 MG TAB PO SCH (23:17)
--- NOTE | 2020-03-04 23:17 | CON ---
Reason For Consultation: Chest pain. History Of Present Illness: Mr. Macias is a 59-year-old male, he was admitted to Dr. James for abdom inal pain, nausea and vomiting and midepigastric chest pain. He has had a history of bipolar disorde r, coronary artery disease status post CABG, hypertension, dyslipidemia, hepatitis, atrial fibrillati on, COPD, congestive heart failure, and cirrhosis of the liver. He came in with abdominal pain, naus ea, vomiting, midepigastric pain radiating to the back. No fever. No chills. No cough. No diarrhe a. The patient has been sick for about 48 hours. He had a normal x-ray, normal EKG. CT of the ches t, abdomen, and pelvis were negative. He had a normal echo and normal Lexiscan in 2018. His CABG wa s in 2016. His troponin was negative. His creatinine is 1.55. His lipase was elevated at 423 sugge stive of pancreatitis. When he came in, his blood pressure was 209/104, it is now 134/79. Past Medical History: As stated above. Allergies: HE IS ALLERGIC TO PENICILLIN AND CODEINE. Review of Systems: Negative. Social History: Negative. Family History: Noncontributory. Medications: At home include, amiodarone, Imdur, lithium, Lipitor, Norvasc, Celexa, losartan, potass ium, Lovenox, metoprolol, and Plavix. Physical Examination: General: Patient was in moderate distress and he was holding his abdomen, still having nausea and vo miting. Unable to keep much p.o. Vital Signs: Otherwise stable. He was afebrile. He was in sinus rhythm. HEENT: Negative. Neck: Supple without any bruit, lymphadenopathy, JVD, or thyromegaly. Chest: Clear to auscultation and percussion. Cardiac: Revealed a regular rhythm and rate with S4 gallop. No murmurs or rubs. Abdomen: Benign. Extremities: Revealed no clubbing, cyanosis, or edema. Diagnostic Data: Available were listed earlier. Impression And Plan: 1.Patient with history of coronary artery disease, status post coronary artery bypass graft, normal echo and stress test in 2018. He had his coronary artery bypass graft in 2015. His troponin is nega tive. His chest x-ray is negative. His EKG is negative. His symptoms sound more like gastrointesti nal, possibly pancreatitis or colitis or enteritis. Nevertheless, an echocardiogram and a Lexiscan h ave been ordered already. We will see what these shows prior to making final decisions. 2.Bipolar disorder. 3.Hypertension, poorly controlled, it is better now. 4.Dyslipidemia, well controlled. 5.Atrial fibrillation and sinus rhythm on amiodarone. 6.Chronic obstructive pulmonary disease. 7.History of diastolic congestive heart failure. 8.History of cirrhosis. 9.History of hepatitis. We will continue to follow him and see what the echo and Lexiscan shows ruthie or to making final decisions. SUSIE/REINA Voice ID: [id number] Report ID: [id number]
[2020-03-04] MEDS ORDERED: LITHIUM CARBONATE 300 MG TAB ONE (23:21)
--- NOTE | 2020-03-04 23:27 | PN ---
The patient was admitted with nausea, vomiting, abdominal pain, mid epigastric chest pain. Today, he underwent an echocardiogram which was normal. He had a stress test with the Lexiscan that was read as moderate-sized area of stress-induced ischemia suspected in the anterior wall. Patient continued to have nausea and vomiting, but has been continuous since he got admitted. His troponin remained ne gative. His EKG remained negative. He obviously have issues with his coronaries, but this was not c ausing his symptoms. I suggest we use Flagyl, hydration, try to keep him n.p.o. just in case he had pancreatitis. His lipase was elevated. I think Mr. Macias deserves another heart catheterization, bu t I am not going to be able to do him well. He is not able to lay flat because of nausea and vomitin g and abdominal discomfort. We will hydrate him and put him on Flagyl. May be keep him on clear liq uid. The case was discussed with Dr. James. We will keep him in the hospital. I will plan to do t he catheterization on him, maybe Wednesday or , depending on how he is feeling. SUSIE/REINA Voice ID: [id number] Report ID: [id number]
[2020-03-05] MEDS: METRONIDAZOLE 500mg IVPB 500 MG/100 ML BAG IV SCH ×3 (00:05→16:46)
[2020-03-05] MEDS: PROMETHAZINE INJ 25 MG/ML AMP IV PRN ×4 (03:43→19:14)
[2020-03-05] MEDS: HYDROMORPHONE HCL 1 MG/ML INJ IV PRN ×4 (03:44→19:14)
[2020-03-05 04:18] LABS: Absolute Lymphocytes (CBC) 2.2 K/uL (0.7-4.9); Basophils % 0.5 % (0-1.3); Hematocrit 45.3 % (39.6-49.0); Lymphocytes % 23.2 % (15.3-44.8); MPV 10.4 fL (7.6-11.3); RBC Red Blood Cell Count 4.96 M/uL (4.33-5.43)
[2020-03-05 04:29] LABS: Albumin 3.2 g/dL (3.4-5.0); Bilirubin Total 0.6 mg/dL (0.2-1.0); Magnesium 2.6 mg/dL (1.8-2.4); Potassium 3.6 mmol/L (3.5-5.1); Protein, Total 7.3 g/dL (6.4-8.2)
[2020-03-05] MEDS: carvediloL 25 MG TAB PO SCH ×2 (05:32→19:18)
[2020-03-05] MEDS: MORPHINE 2 MG/ML SYR IV PRN ×3 (05:38→22:10)
[2020-03-05] MEDS: ONDANSETRON 4 MG/2 ML VIAL IV PRN (05:38)
[2020-03-05] MEDS: DULERA 100/5 (MOMETASONE/FORMOTEROL) INHALER IH SCH ×2 (07:52→21:00)
[2020-03-05] MEDS: PANTOPRAZOLE 40 MG INJ IVP SCH ×2 (08:00→22:00)
[2020-03-05] MEDS: AMLODIPINE 10 MG TAB PO SCH (08:00)
[2020-03-05] MEDS: LOSARTAN POTASSIUM 50 MG TABLET PO SCH ×2 (08:04→22:00)
[2020-03-05] MEDS: ASPIRIN EC 81 MG TAB PO SCH (08:04)
[2020-03-05] MEDS: NICOTINE 21 MG/PAT TD SCH (08:05)
[2020-03-05] MEDS: CITALOPRAM 10 MG TABLET PO SCH (08:05)
--- NOTE | 2020-03-05 08:22 | ECHO ---
HEIGHT: 5 ft 9 in WEIGHT: 140 lb 0 oz DATE OF STUDY: 03/04/[address]: Qing Anders MD 2-DIMENSIONAL: YES M.MODE: YES DOPPLER: YES COLOR FLOW: YES TDS: NO PORTABLE: NO DEFINITY: NO BUBBLE STUDY: NO DIAGNOSIS: CHEST PAIN CARDIAC HISTORY: CATHERIZATION: YES SURGERY: CABG PROSTHETIC VALVE: NO PACEMAKER: NO MEASUREMENTS (cm) DIASTOLIC (NORMALS) SYSTOLIC (NORMALS) IVSd 1.4 (0.6-1.2) LA Diam (1.9-4.0) LVEF 65% LVIDd 3.8 (3.5-5.7) LVIDs 2.5 (2.0-3.5) %FS 35% LVPWd 1.0 (0.6-1.2) Ao Diam 2.7 (2.0-3.7) 2 DIMENSIONAL ASSESSMENT: RIGHT ATRIUM: NORMAL LEFT ATRIUM: NORMAL RIGHT VENTRICLE: NORMAL LEFT VENTRICLE: NORMAL TRICUSPID VALVE: NORMAL MITRAL VALVE: NORMAL PULMONIC VALVE: NORMAL AORTIC VALVE: NORMAL PERICARDIAL EFFUSION: NONE AORTIC ROOT: NORMAL LEFT VENTRICULAR WALL MOTION: NORMAL. DOPPLER/COLOR FLOW: NORMAL. COMMENTS: NORMAL 2D ECHO WITH DOPPLER. NO WALL MOTION ABNORMALITY. NO EFFUSION. TECHNOLOGIST: PAIGE CINTRON
--- NOTE | 2020-03-05 08:38 | TREADPHA ---
DX: CHEST PAIN Date of Study: 03/04/2020 Ht: 5' 9 " Wt: 140 lb 0 oz Consulting Physician: TROY MEDICATIONS: TYLENOL, LOVENOX, DILAUDID, NICODERM, PHENEGRAN HISTORY: 59 YEAR OLD MALE WITH HISTORY OF CONGESTIVE HEART FAILURE, MYOCARDIAL INFARCTION, DOUBLE BYPASS, CHRONIC PAIN, HYPERTENSION, CHRONIC OBSTRUCTIVE PULMONARY DISEASE, SMOKER. ADMITTED FOR CHEST PAIN PHYSICIAL EXAMINATION: RESTING B.P.: 170/93 RESTING H.R.: 65 RESTING EKG: SINUS RHYTHM, OLD SEPTAL MYOCARDIAL INFARCTION PROTOCOL: LEXISCAN EXERCISE TIME: 3:30 B.P. AT PEAK STRESS: 123/83 IMPRESSION: LEXISCAN STRESS TEST PERFORMED. CARDIOLITE INJECTED PER PROTOCOL. NO SUPRA VENTRICULAR TACHYCARDIA, NO VENTRICULAR TACHYCARDIA NOTED. OCCASIONAL PREMATURE VENTRICULAR COMPLEXES NOTED. PATIENT DENIED CHANGE IN CHEST PAIN.
[2020-03-05] MEDS: ENOXAPARIN 40 MG/0.4 ML SQ SCH (10:00)
--- NOTE | 2020-03-05 11:09 | P.PN ---
Subjective Date of Service: 03/05/20 Chief Complaint: Chest pain/abdominal pain/nausea and vomiting/hypertensive urgency Subjective: No new changes (Patient continues to have abdominal pain and poor PO intake) Physical Examination - Vital Signs Temperature: 98.5 F Blood Pressure: 111/67 Pulse: 57 Respirations: 18 Pulse Ox (%): 96 - Physical Exam General: Alert, Cooperative, Cachectic HEENT: Atraumatic, Normocephalic Neck: Supple, JVD distended Respiratory: Clear to auscultation bilaterally, Normal air movement Cardiovascular: No edema, Normal pulses, Regular rate/rhythm, Normal S1 S2, Other (sternotomy scar) Gastrointestinal: Non-distended, Tenderness Integumentary: No rashes, No breakdown, No significant lesion, No tenderness/swelling, No erythema, No warmth, No cyanosis Neurological: Normal speech, Sensation intact, Normal affect - Studies Laboratory Data (last 24 hrs) 03/04/20 17:06: Lipase 203 03/04/20 13:59: Sodium 139, Potassium 3.7, BUN 30 H, Creatinine 1.18, Glucose 144 H, Magnesium 2.6 H, Total Bilirubin 0.6, AST 150 H, ALT 129 H, Alkaline Phosphatase 72 03/04/20 13:59: WBC 9.8, Hgb 16.2, Hct 49.2 H, Plt Count 288 03/04/20 13:59: Troponin I 0.02 Medications List Reviewed: Yes Assessment & Plan Physician Review Additional Text: Impression: Patient is a 59 year old male with CAD S/P CABG x 2 currently admitted with chest and abdominal pain. He had a positive stress test during this admission and is pending a coronary angiogram. Cardiology has been consulted. He is also being treated for suspected pancreatitis Chest pain with significant CAD with prior CABG now with abnormal cardiac stress test Nausea, vomiting with epigastric abdominal pain suspect pancreatitis Hypertension Diabetes mellitus type 2 Hyperlipidemia GERD Plan: Cardiology on board, defer schedulign of coronary angiogram to cardiology Continue DAPT, coreg, losartan and isorbide mononitrate Amiodarone for afib Continue BP control Continue insulin sliding scale, A1c 6.2 Cotninue flagyl for possbile enterocolitis Continue NPO status Anti-emetics, PPI, and multi-modal pain regimen for abdomina pain
[2020-03-05] MEDS: NA CHLORIDE 0.9% 1,000 ML IV SCH (18:09)
[2020-03-05] MEDS ORDERED: LITHIUM CARBONATE 300 MG TAB ONE (21:41)
[2020-03-05] MEDS: ISOSORBIDE MONO SR 60 MG TAB PO SCH (21:57)
[2020-03-05] MEDS: AMIODARONE HCL 200 MG TAB PO SCH (21:58)
[2020-03-05] MEDS: ATORVASTATIN 20 MG TAB PO SCH (21:58)
[2020-03-05] MEDS: LITHIUM CARBONATE 300 MG TAB PO SCH (21:58)
[2020-03-05] MEDS: CLOPIDOGREL 75 MG TABLET PO SCH (21:58)
[2020-03-06] MEDS: METRONIDAZOLE 500mg IVPB 500 MG/100 ML BAG IV SCH ×3 (00:30→16:38)
[2020-03-06] MEDS: HYDROMORPHONE HCL 1 MG/ML INJ IV PRN ×4 (01:48→16:32)
[2020-03-06] MEDS: PROMETHAZINE INJ 25 MG/ML AMP IV PRN ×4 (01:49→16:32)
[2020-03-06] MEDS: carvediloL 25 MG TAB PO SCH ×2 (05:49→17:19)
--- NOTE | 2020-03-06 06:02 | PN ---
Date of Progress Note: 03/05/2020 History Of Present Illness: Mr. Macias came in with atypical chest pain, nausea, vomiting, elevated l ipase, elevated creatinine, dehydration. He had an abnormal stress test showing anterior ischemia. He has had a history of coronary artery disease, status post CABG in the past. I had intended to do a heart catheterization on him; however, the patient could not lay flat. He continued to have nausea and vomiting and severe abdominal pain. Workup was still in progress. He was being hydrated. He w as given Flagyl for antibiotics. He was being n.p.o. because he could not tolerate any food. Today, he has improved slightly, but continued to have some nausea and had not had any food. We will plan to start him on a soft diet. His last creatinine was 1.12. He remains hydrated. His last lipase wa s 230. His lithium level was 0.5 and is being dealt with primary care physician. I still would like to continue his present medical therapy. He is on amiodarone, Norvasc, aspirin, Lipitor, and beta-b locker and Plavix from a cardiac standpoint. I have a feeling that Mr. Macias still needs the cathete rization. We will see how he does over the next 24 hours or so. I could probably do it either as an inpatient or outpatient. I will discuss the case further with him. SUSIE/REINA Voice ID: [id number] Report ID: [id number]
[2020-03-06 06:04] LABS: Absolute Lymphocytes (CBC) 2.5 K/uL (0.7-4.9); Basophils % 0.7 % (0-1.3); Hematocrit 43.7 % (39.6-49.0); MPV 10.1 fL (7.6-11.3); RBC Red Blood Cell Count 4.78 M/uL (4.33-5.43)
[2020-03-06 06:15] LABS: Bilirubin Total 0.5 mg/dL (0.2-1.0); Magnesium 2.6 mg/dL (1.8-2.4); Potassium 3.9 mmol/L (3.5-5.1); Protein, Total 6.9 g/dL (6.4-8.2)
[2020-03-06] MEDS ORDERED: NITROGLYCERIN 0.4 MG/TAB SL PRN (07:48)
[2020-03-06] MEDS: MORPHINE 2 MG/ML SYR IV PRN ×3 (08:10→20:36)
[2020-03-06] MEDS: NICOTINE 21 MG/PAT TD SCH (08:10)
[2020-03-06] MEDS: ENOXAPARIN 40 MG/0.4 ML SQ SCH (08:11)
[2020-03-06] MEDS: PANTOPRAZOLE 40 MG INJ IVP SCH ×2 (08:11→20:32)
[2020-03-06] MEDS: ASPIRIN 81 MG CHEWABLE TABLET PO SCH (08:12)
[2020-03-06] MEDS: DULERA 100/5 (MOMETASONE/FORMOTEROL) INHALER IH SCH ×2 (08:12→20:34)
[2020-03-06] MEDS: LOSARTAN POTASSIUM 50 MG TABLET PO SCH ×2 (08:12→20:32)
[2020-03-06] MEDS: CITALOPRAM 10 MG TABLET PO SCH (08:12)
[2020-03-06] MEDS: AMLODIPINE 10 MG TAB PO SCH (08:12)
[2020-03-06] MEDS ORDERED: CLOPIDOGREL 75 MG TABLET PO SCH (09:00)
[2020-03-06] MEDS ORDERED: ISOSORBIDE MONO SR 30 MG TAB PO SCH (09:00)
--- NOTE | 2020-03-06 12:09 | P.PN ---
Subjective Date of Service: 03/06/20 Chief Complaint: Chest pain/abdominal pain/nausea and vomiting/hypertensive urgency Subjective: No new changes (Patient is still experiencing chest and abdominal pain. However, he was able to tolerate his diet for the first time.), Tolerating diet Physical Examination - Vital Signs Temperature: 97.6 F Blood Pressure: 171/82 Pulse: 56 Respirations: 18 Pulse Ox (%): 98 - Physical Exam General: Alert, Cachectic, Mild distress HEENT: Atraumatic, Normocephalic, EOMI Respiratory: Clear to auscultation bilaterally, Normal air movement Cardiovascular: Other (sternotomy scar) Gastrointestinal: Non-distended, No ascites, Tenderness Musculoskeletal: No clubbing, No swelling, No contractures, No erythema, No tenderness, No warmth Integumentary: No rashes, No breakdown, No significant lesion, No tenderness/swelling, No erythema, No warmth, No cyanosis Neurological: Normal speech, Sensation intact, Normal affect - Studies Medications List Reviewed: Yes Assessment & Plan Physician Review Additional Text: Impression: Patient is a 59 year old male with CAD S/P CABG x 2 currently admitted with chest and abdominal pain. He had a positive stress test during this admission and is pending a coronary angiogram. Cardiology has been consulted. He is also being treated for suspected pancreatitis Chest pain with significant CAD with prior CABG now with abnormal cardiac stress test Nausea, vomiting with epigastric abdominal pain suspect pancreatitis Hypertension Diabetes mellitus type 2 Hyperlipidemia GERD Plan: Cardiology contemplating diagnostic angiogram Continue DAPT, coreg, losartan and isorbide mononitrate Amiodarone for afib Continue BP control Continue insulin sliding scale, A1c 6.2 Continue flagyl for possbile enterocolitis Advance diet as tolerated Anti-emetics, PPI, and multi-modal pain regimen for abdomina pain
--- NOTE | 2020-03-06 12:23 | PN ---
I have been following Mr. Macias since he got admitted to the hospital because of atypical chest pain. Continues to have intractable nausea and vomiting now for about 4 days. Had elevated lipase, possi lorena consistent with pancreatitis. Wanting to do a catheterization on Mr. Macias because of abnormal s tress test, but he continued to have nausea and vomiting. Cannot lie down flat. Denies any chest pa in. Denies any shortness of breath, PND, orthopnea, pedal edema, palpitations, or syncope. His rhyt hm is normal. Troponin normal. EKG is unremarkable. Chest x-ray is negative. We tried to feed him yesterday with soft diet and he could not keep that down. I think he needs to have a GI consultatio n for intractable nausea and vomiting, possibly endoscopy or colonoscopy procedures if the need arises. I will continue to follow him. No plan for catheterization at this point. Patient ne eds to be able to lie flat and he is unable to do so at this point. I will probably as an outpatient. SUSIE/REINA Voice ID: [id number] Report ID: [id number]
[2020-03-06] MEDS: NA CHLORIDE 0.9% 1,000 ML IV SCH (13:50)
[2020-03-06] MEDS: AMIODARONE HCL 200 MG TAB PO SCH (20:33)
[2020-03-06] MEDS: ISOSORBIDE MONO SR 60 MG TAB PO SCH (20:34)
[2020-03-06] MEDS: CLOPIDOGREL 75 MG TABLET PO SCH (20:34)
[2020-03-06] MEDS: ATORVASTATIN 20 MG TAB PO SCH (20:34)
[2020-03-06] MEDS: LITHIUM CARBONATE 300 MG TAB PO SCH (20:35)
[2020-03-06] MEDS: ONDANSETRON 4 MG/2 ML VIAL IV PRN (20:36)
[2020-03-06] MEDS ORDERED: ATORVASTATIN 20 MG TAB PO SCH (21:00)
[2020-03-07] MEDS: PROMETHAZINE INJ 25 MG/ML AMP IV PRN ×2 (00:04→05:22)
[2020-03-07] MEDS: HYDROMORPHONE HCL 1 MG/ML INJ IV PRN ×5 (00:04→20:19)
[2020-03-07] MEDS: METRONIDAZOLE 500mg IVPB 500 MG/100 ML BAG IV SCH ×3 (00:05→16:00)
[2020-03-07] MEDS: carvediloL 25 MG TAB PO SCH ×2 (05:19→17:02)
[2020-03-07 06:02] LABS: Albumin 2.7 g/dL (3.4-5.0); Bilirubin Total 0.3 mg/dL (0.2-1.0); Magnesium 2.4 mg/dL (1.8-2.4); Protein, Total 6.6 g/dL (6.4-8.2)
[2020-03-07 06:07] LABS: Absolute Lymphocytes (CBC) 2.9 K/uL (0.7-4.9); Basophils % 1.3 % (0-1.3); Hematocrit 41.2 % (39.6-49.0); Lymphocytes % 33.3 % (15.3-44.8); MPV 10.5 fL (7.6-11.3); RBC Red Blood Cell Count 4.53 M/uL (4.33-5.43)
[2020-03-07] MEDS: NA CHLORIDE 0.9% 1,000 ML IV SCH ×2 (07:00→12:02)
[2020-03-07] MEDS: NICOTINE 21 MG/PAT TD SCH (08:09)
[2020-03-07] MEDS: LOSARTAN POTASSIUM 50 MG TABLET PO SCH ×2 (08:10→20:38)
[2020-03-07] MEDS: CITALOPRAM 10 MG TABLET PO SCH (08:10)
[2020-03-07] MEDS: AMLODIPINE 10 MG TAB PO SCH (08:10)
[2020-03-07] MEDS: ASPIRIN 81 MG CHEWABLE TABLET PO SCH (08:10)
[2020-03-07] MEDS: ENOXAPARIN 40 MG/0.4 ML SQ SCH (08:11)
[2020-03-07] MEDS: DULERA 100/5 (MOMETASONE/FORMOTEROL) INHALER IH SCH ×2 (08:11→20:38)
[2020-03-07 08:16] VITALS: O2SAT 95
[2020-03-07] MEDS: PANTOPRAZOLE 40 MG INJ IVP SCH ×2 (08:22→20:39)
[2020-03-07] MEDS: MORPHINE 2 MG/ML SYR IV PRN (08:22)
[2020-03-07] MEDS ORDERED: DIPHENHYDRAMINE 12.5MG/5ML LIQ PO ONE (09:00)
[2020-03-07] MEDS ORDERED: MAGNES/ALUMIN/SIMET 30ML UCUP PO ONE (09:00)
[2020-03-07] MEDS ORDERED: LIDOCAINE VISCOUS 2% SOLN 15 ML UDC PO ONE (09:00)
--- NOTE | 2020-03-07 11:16 | EKG ---
Test Date: 2020-03-04 Test Time: 15:43:29 Side Laster Tack: CATHLEEN MEASUREMENT RESULTS: Intervals: Rate: 67 OK: 166 QRSD: 106 QT: 556 QTc: 587 [place]: P: 66 OK: 166 QRS: 55 T: 47 INTERPRETIVE STATEMENTS: Normal sinus rhythm Anteroseptal infarct, possibly acute Abnormal ECG Compared to ECG 03/02/2020 23:35:12 Left ventricular hypertrophy no longer present Early repolarization no longer present Myocardial infarct finding still present Electronically Signed On 03-07-20 11:14:00 CDT by Ghulam Berrios
[2020-03-07] MEDS: HYDRALAZINE HCL 20 MG/ML VIAL IV PRN (12:00)
[2020-03-07] MEDS: ONDANSETRON 4 MG/2 ML VIAL IV PRN ×2 (12:07→17:02)
--- NOTE | 2020-03-07 12:19 | P.PN ---
Subjective Date of Service: 03/07/20 Chief Complaint: Chest pain/abdominal pain/nausea and vomiting/hypertensive urgency Subjective: No new changes (Patient is tolerating diet now but still reports epigatric and R sided abdominal pain. He is on several pain medications, PPI and anti-emetics but w/o significant improvement. I started him on GI cocktail today but he is yet to endorse relief of abdominal pain.) Physical Examination - Vital Signs Temperature: 98.4 F Blood Pressure: 155/78 Pulse: 60 Respirations: 18 Pulse Ox (%): 99 - Physical Exam General: Cooperative, Moderate distress HEENT: Atraumatic, Normocephalic, EOMI Neck: Supple Respiratory: Clear to auscultation bilaterally, Normal air movement Cardiovascular: Normal pulses, Regular rate/rhythm, Normal S1 S2, Other (sternot misbah scar) Gastrointestinal: Normal bowel sounds, Non-distended, Tenderness Musculoskeletal: No clubbing, No swelling, No contractures, No erythema, No tenderness, No warmth Integumentary: No rashes, No breakdown, No significant lesion, No tenderness/swelling, No erythema, No warmth, No cyanosis Neurological: Normal speech, Sensation intact, Normal affect - Studies Medications List Reviewed: Yes Assessment & Plan - Problems (Diagnosis) (1) Abdominal pain Current Visit: Yes Status: Acute (2) Chest pain, rule out acute myocardial infarction Current Visit: Yes Status: Acute (3) History of coronary artery bypass graft Current Visit: Yes Status: Acute (4) Hypertensive urgency, malignant Current Visit: Yes Status: Acute (5) Intractable nausea and vomiting Current Visit: Yes Status: Acute (6) Abnormal EKG Onset Date: 05/13/16 Current Visit: No Status: Acute (7) Acute cholecystitis Current Visit: No Status: Acute (8) Acute coronary syndrome Onset Date: 11/07/15 Current Visit: No Status: Acute Physician Review Additional Text: Impression: Patient is a 59 year old male with CAD S/P CABG x 2 currently admitted with chest and abdominal pain. He had a positive stress test during this admission and is pending a coronary angiogram. Cardiology cannot perform angiogram since patient cannot lie flat due to pain. He is on several pain meds, anti-emetic and now GI cocktail without improvement of his sx. Curiously, he is tolerating diet but continues to state lack of abdominal pain improvement. Review of his labs show normal lactic acid, WBC and BMP. GI will not perform endoscopy until patient has been cardiac cleared. Chest pain with significant CAD with prior CABG now with abnormal cardiac stress test Nausea, vomiting with epigastric abdominal pain suspect pancreatitis Hypertension Diabetes mellitus type 2 Hyperlipidemia GERD Plan: Optimize pain control with multi-modal pain regimen and less emphasis on opiods. Will D/C morphine and start muscle relaxant Cotinue PPI BID, anti-emetic and GI cocktail Continue DAPT, coreg, losartan and isorbide mononitrate Amiodarone for afib Continue BP control Continue insulin sliding scale, A1c 6.2 Continue flagyl for possbile enterocolitis Advance diet as tolerated
[2020-03-07] MEDS: CYCLOBENZAPRINE 10 MG TAB PO SCH ×3 (13:06→20:34)
--- NOTE | 2020-03-07 20:21 | CON ---
Date of Consultation: 03/05/2020 Reason For Consultation: Atypical chest pain, nausea, vomiting. History Of Present Illness: Patient is a 59-year-old gentleman with a history of bipolar disorder, c oronary artery disease status post CABG, hypertension, dyslipidemia, hepatitis, atrial fibrillation, COPD, congestive heart failure, and liver cirrhosis and suspected liver disease, admitted to the hosp [facility] because of chest pain, nausea, vomiting, and pain in the upper abdomen. He denied any fevers or chills. No other GI symptoms. No diarrhea. No hematochezia. His blood pressure on admission was 209/104. In the hospital, patient was started on amiodarone due to arrhythmia. He also has had a st ress test done, which showed; #1 old left ventricular infarction, #2 active ischemia. GI consultatio n was requested for the abdominal pain. I had a detailed discussion with the patient. The pain does not seem to be related to eating. He says that he is just nauseous. Pain gets worse on movement, e specially on lying down. As stated above no other GI symptoms. Family History: Noncontributory. Review of Systems: Cardiovascular: As in HPI, otherwise negative. GI: As in HPI, otherwise negative. Remainder of 10-point review of systems is negative. Social History: As mentioned in the chart. Allergies: MULTIPLE ALLERGIES WELL TO PENICILLIN AND CODEINE MENTIONED IN THE CHART. Physical Examination: VITAL SIGNS: As mentioned above. He was hypotensive, now blood pressure better controlled, not tach ycardic, not tachypneic. Afebrile. Laboratory Data: Reviewed. Patient is not anemic, normal hemoglobin and hematocrit, normal platelet s, normal coagulation profile. Chemistry panel reveals mild elevation of AST and ALT as well as tota l bilirubin. Imaging Data: Reviewed up until now. Patient has had stress test as mentioned above. Abdominal CT scan appears to be negative. Impression: 59-year-old gentleman with significant coronary artery disease, congestive heart failure , history of atrial fibrillation, now presents with upper abdominal chest pain, nausea, vomiting. Sy mptoms do not point to a GI pathology. He does not have any hematemesis or melena plus symptoms. Hi s pain gets worse upon movement, especially on lying down. Additionally, there is a significant abno rmality on the stress test which needs to be addressed. He does have some elevation of LFTs, which sallie nava is secondary to his chronic liver disease. Plan: Continue PPI as that will address any peptic ulcer disease concern if there was. Cardiac work up needs to be completed first and subsequently we will do GI intervention if deemed appropriate. In the meanwhile, I will get MRCP just to rule out a biliary process given the elevated liver enzymes. The pancreatic enzymes are not of any concern as they were minimally elevated and have trended back down to normal, so I do not believe he has had pancreatitis. I discussed this case with Dr. Boston. We can follow the patient on an outpatient setting. US/MODL Voice ID: [id number] Report ID: [id number]
[2020-03-07] MEDS: ATORVASTATIN 20 MG TAB PO SCH (20:34)
[2020-03-07] MEDS: ISOSORBIDE MONO SR 60 MG TAB PO SCH (20:37)
[2020-03-07] MEDS: AMIODARONE HCL 200 MG TAB PO SCH (20:37)
[2020-03-07] MEDS: CLOPIDOGREL 75 MG TABLET PO SCH (20:37)
[2020-03-07] MEDS: LITHIUM CARBONATE 300 MG TAB PO SCH (21:00)
--- NOTE | 2020-03-07 23:20 | PN ---
I have been following the patient since 03/04/2020 when he came in with atypical chest pain, but has been having nausea, vomiting, abdominal pain, and since then intractable nausea and vomiting. He had a stress test that was positive and I have been wanting to do a catheterization on him. However, he cannot lay flat. He continues with constant nausea and vomiting, intolerant to food. Dr. Demarco saw the patient today. He felt that his symptoms may be secondary to chronic liver disease and muscu loskeletal pain. He did not feel that this is related to a GI pathology. He recommended continuing PPI. MRCP was ordered. I would not do a catheterization on Mr. Macias as an inpatient until he is co mpletely free of nausea and vomiting. Continue present regimen right now. We will see what the MRCP shows. SUSIE/REINA Voice ID: [id number] Report ID: [id number]
[2020-03-08] MEDS: HYDROMORPHONE HCL 1 MG/ML INJ IV PRN ×4 (00:15→11:55)
[2020-03-08] MEDS: METRONIDAZOLE 500mg IVPB 500 MG/100 ML BAG IV SCH ×2 (00:19→09:39)
[2020-03-08] MEDS: ONDANSETRON 4 MG/2 ML VIAL IV PRN (00:25)
[2020-03-08] MEDS: HYDRALAZINE HCL 20 MG/ML VIAL IV PRN (02:05)
[2020-03-08] MEDS: NA CHLORIDE 0.9% 1,000 ML IV SCH (04:21)
[2020-03-08] MEDS: carvediloL 25 MG TAB PO SCH (04:42)
[2020-03-08] MEDS ORDERED: HYDRALAZINE HCL 25 MG TABLET PO SCH (09:00)
[2020-03-08] MEDS: DULERA 100/5 (MOMETASONE/FORMOTEROL) INHALER IH SCH (09:00)
[2020-03-08] MEDS: CYCLOBENZAPRINE 10 MG TAB PO SCH (09:37)
[2020-03-08] MEDS: PANTOPRAZOLE 40 MG INJ IVP SCH (09:38)
[2020-03-08] MEDS: NICOTINE 21 MG/PAT TD SCH (09:38)
[2020-03-08] MEDS: AMLODIPINE 10 MG TAB PO SCH (09:38)
[2020-03-08] MEDS: LOSARTAN POTASSIUM 50 MG TABLET PO SCH (09:38)
[2020-03-08] MEDS: ASPIRIN 81 MG CHEWABLE TABLET PO SCH (09:38)
[2020-03-08] MEDS: CITALOPRAM 10 MG TABLET PO SCH (09:38)
[2020-03-08] MEDS: ENOXAPARIN 40 MG/0.4 ML SQ SCH (09:39)
--- NOTE | 2020-03-08 11:40 | P.DS ---
Admission Date: 03/04/20 Discharge Date: 03/08/20 Disposition: ROUTINE DISCHARGE Discharge Condition: GOOD Reason for Admission: Chest pain/abdominal pain/nausea and vomiting/hypertensive urgency - Problems (1) Abdominal pain Current Visit: Yes Status: Acute (2) Chest pain, rule out acute myocardial infarction Current Visit: Yes Status: Acute (3) History of coronary artery bypass graft Current Visit: Yes Status: Acute (4) Hypertensive urgency, malignant Current Visit: Yes Status: Acute (5) Intractable nausea and vomiting Current Visit: Yes Status: Acute (6) Abnormal EKG Onset Date: 05/13/16 Current Visit: No Status: Acute (7) Acute cholecystitis Current Visit: No Status: Acute (8) Acute coronary syndrome Onset Date: 11/07/15 Current Visit: No Status: Acute Hospital Course: Patient is a 59 year old male with a known PMH of CAD S/P CABG who presented to the hospital with epigastric and right sided abdominal pain, and poor oral tolerance with nausea and vomiting. He was also complaining of chest pain during admission. Cardiology was consulted and he underwent a nuclear stress test, which was positive. There was a plan to proceed with a coronary angiogram but it was delayed due to patient's inability to lie down as per cardiology. Eventually cardiology decided to perform the angiogram as outpatient. GI was also consulted and would not perform an EGD until patient was cleared by cardiology. He was treated medically with anti-emetics, PPI twice daily and multi-modal pain regimen. He responded to the treatment and was resumed on solid diet. Vital Signs/Physical Exam: Temp Pulse Resp BP Pulse Ox 97.2 F 54 18 160/81 H 98 03/08/20 08:00 03/08/20 08:00 03/08/20 08:02 03/08/20 08:00 03/08/20 08:02 General: In no apparent distress, Cooperative, Mild distress HEENT: Atraumatic, Normocephalic, EOMI Neck: JVD distended Respiratory: Clear to auscultation bilaterally, Normal air movement Cardiovascular: No edema, Normal pulses, Regular rate/rhythm, Normal S1 S2, Other (sternotomy scar) Gastrointestinal: Normal bowel sounds, Soft and benign, Non-distended, Tenderness Musculoskeletal: No clubbing, No swelling, No contractures, No erythema, No tenderness, No warmth Integumentary: No rashes, No breakdown, No significant lesion, No tenderness/swelling, No erythema, No warmth, No cyanosis Neurological: Normal speech, Sensation intact, Normal affect Laboratory Data at Discharge: WBC 8.7 K/uL (4.3-10.9) 03/07/20 05:16 Hgb 13.6 g/dL (13.6-17.9) 03/07/20 05:16 Hct 41.2 % (39.6-49.0) 03/07/20 05:16 Plt Count 215 K/uL (152-406) 03/07/20 05:16 PT 12.3 SECONDS (9.5-12.5) 03/02/20 23:45 INR 1.04 03/02/20 23:45 Sodium 145 mmol/L (136-145) 03/07/20 05:16 Potassium 4.0 mmol/L (3.5-5.1) 03/07/20 05:16 BUN 18 mg/dL (7-18) 03/07/20 05:16 Creatinine 1.06 mg/dL (0.55-1.3) 03/07/20 05:16 Glucose 110 mg/dL (74-106) H 03/07/20 05:16 Phosphorus 3.2 mg/dL (2.5-4.9) 03/04/20 05:20 Magnesium 2.4 mg/dL (1.8-2.4) 03/07/20 05:16 Total Bilirubin 0.3 mg/dL (0.2-1.0) 03/07/20 05:16 AST 116 U/L (15-37) H 03/07/20 05:16 ALT 105 U/L (12-78) H 03/07/20 05:16 Alkaline Phosphatase 62 U/L (45-117) 03/07/20 05:16 Troponin I 0.02 ng/mL (0.0-0.045) 03/04/20 13:59 Triglycerides 165 mg/dL (<150) H 03/04/20 05:20 Cholesterol 121 mg/dL (<200) 03/04/20 05:20 HDL Cholesterol 39 mg/dL (40-60) L 03/04/20 05:20 Cholesterol/HDL Ratio 3.10 03/04/20 05:20 Lipase 326 U/L (73-393) 03/07/20 05:16 Home Medications: Aspirin 81 mg PO DAILY 11/21/17 Amlodipine [Norvasc*] 10 mg PO DAILY 06/10/18 Hydrocodone 10/APAP 325 [[place] 10/325*] 1 tab PO Q8H PRN 06/10/18 [place] Carbonate [Lithotabs *] 600 mg PO BEDTIME 06/10/18 Amiodarone HCl [Cordarone*] 1 tab PO DAILY 04/15/19 Isosorbide Mononitrate [Isosorbide Mononitrate ER] 2 tab PO DAILY 04/15/19 Losartan Potassium 25 mg PO DAILY 04/15/19 Mometasone/Formoterol [Dulera 100 Mcg/5 Mcg Inhaler] 1 puff IH BID 04/15/19 Nitroglycerin 0.4 mg SL SEECOM PRN 04/15/19 Potassium Chloride 20 meq PO DAILY 04/15/19 Atorvastatin Calcium 1 tab PO BEDTIME 03/03/20 Citalopram [Celexa*] 2 tab PO DAILY 03/03/20 Clopidogrel Bisulfate [Plavix] 1 tab PO DAILY 03/03/20 Amiodarone HCl [Cordarone*] 100 mg PO BEDTIME tab 03/08/20 Atorvastatin Calcium [Lipitor*] 20 mg PO BEDTIME #30 tab 03/08/20 Clopidogrel Bisulfate [Plavix*] 75 mg PO BEDTIME tablet 03/08/20 Cyclobenzaprine [Flexeril*] 5 mg PO TID #15 tab 03/08/20 Hydralazine [Apresoline*] 50 mg PO TID PRN #30 tab 03/08/20 Losartan Potassium [Cozaar*] 50 mg PO BID #60 tablet 03/08/20 Pantoprazole [Protonix Tab*] 40 mg PO BID #60 tab 03/08/20 Promethazine Tab [Phenergan] 12.5 mg PO Q6HP PRN #20 tab 03/08/20 carvediloL [Coreg*] 25 mg PO BID 6AM 6PM tab 03/08/20 New Medications: Hydralazine [Apresoline*] 50 mg PO TID PRN #30 tab PRN Reason: Titrate To Sbp (Must Define) Losartan Potassium [Cozaar*] 50 mg PO BID #60 tablet Cyclobenzaprine [Flexeril*] 5 mg PO TID #15 tab Atorvastatin Calcium [Lipitor*] 20 mg PO BEDTIME #30 tab Promethazine Tab [Phenergan] 12.5 mg PO Q6HP PRN #20 tab PRN Reason: Nausea / Vomiting Pantoprazole [Protonix Tab*] 40 mg PO BID #60 tab Diet: AHA
[2020-03-08] MEDS ORDERED: HYDROMORPHONE HCL 1 MG/ML INJ IV ONE (12:12)
[2020-03-08 13:03] VITALS: BP 149/82; TEMP 97.6
--- NOTE | 2020-03-09 20:58 | PN ---
Date of Progress Note: 03/08/2020 Mr. Macias came in with abdominal pain, nausea, vomiting. Had an elevated lipase. Had an abdominal u ltrasound that was negative. He had an MRCP that was pending. He was started on GI cocktail and pro ton pump inhibitors. During his hospitalization, he had a stress test that was positive in the anter ior wall. He has had a history of CABG. Patient was unable to lay down flat for few days after his stress test because of intractable nausea and vomiting up to the day before he left the home. Cathet erization was postponed because of nausea and vomiting. He was seen by Gastroenterology. He has imp roved on GI cocktail and PPI. The plan is to send him home. I will set him up for an outpatient cat heterization in the next week. SUSIE/REINA Voice ID: [id number] Report ID: [id number]
== END 2020-03-08 13:17 | disposition home or self-care (01) | DRG 281 ==
LOC: ER 23:24 → ERHOLD 03-03 05:43 → 2ND 03-03 14:59 → OBSVTOIN 03-04 20:38
PROVIDERS: ADMIT Hospitalist; ATTEND Internal Medicine
DX: I21.9 Acute myocardial infarction, unspecified (principal); I48.20 Chronic atrial fibrillation, unspecified; I50.32 Chronic diastolic (congestive) heart failure; R64 Cachexia; K81.0 Acute cholecystitis; K52.9 Noninfective gastroenteritis and colitis, unspecified; Z88.5 Allergy status to narcotic agent; Z88.0 Allergy status to penicillin; Z79.82 Long term (current) use of aspirin; Z79.891 Long term (current) use of opiate analgesic; Z79.899 Other long term (current) drug therapy; I25.10 Atherosclerotic heart disease of native coronary artery without angina pectoris; G89.29 Other chronic pain; M54.9 Dorsalgia, unspecified; Z95.1 Presence of aortocoronary bypass graft; E78.5 Hyperlipidemia, unspecified; Z90.49 Acquired absence of other specified parts of digestive tract; Z87.891 Personal history of nicotine dependence; I16.0 Hypertensive urgency; G47.33 Obstructive sleep apnea (adult) (pediatric); F31.9 Bipolar disorder, unspecified; J44.9 Chronic obstructive pulmonary disease, unspecified; I11.0 Hypertensive heart disease with heart failure; E11.9 Type 2 diabetes mellitus without complications; Z68.20 Body mass index [BMI] 20.0-20.9, adult; R94.31 Abnormal electrocardiogram [ECG] [EKG]; Z79.02 Long term (current) use of antithrombotics/antiplatelets
CPT/HCPCS: 36415; 71045; 71275; 74177; 76700; 78452; 80048; 80053; 80061; 80076; 80178; 83036; 83605; 83690; 83735; 83880; 84100; 84145; 84484; 85025; 85610; 93005; 93017; 93306; 96374; 96375; 99284; A9500; C9113; J0360; J1170; J1650; J2270; J2405; J2550; J2765; J2785; J7030; J7606; Q0163; Q0169; Q9967

== ENCOUNTER 2020-03-29 17:32 | Inpatient (IN) | payer OTHER ==
--- OUTSIDE RECORDS SUMMARY | 2020-03-29 17:36 | XMS REPORT | Clinical Summary ---
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.] 518 ms QTC Calculation(Bazett) 555 ms P Grady 56 degrees R Grady 18 degrees T Grady 118 degrees Normal sinus rhythm Possible Left atrial enlarge ment Left ventricular hypertrophy Cannot rule out Septal infar ct (cited on or before 22-JAN-2016) ST & T wave abnormality, con bunch trimmer mold lateral ischemia Prolonged QT Abnormal ECG When [...] 486 ms QTC Calculation(Bazett) 516 ms P Grady 49 degrees R Grady 38 degrees T Grady 140 degrees Normal sinus rhythm Minimal voltage criteria for LVH, may be normal variant Septal infarct (cited on or before 22-JAN-2016) ST & T wave abnormality, con bunch trimmer mold lateral ischemia Prolonged QT Abnormal ECG When [...] are in the results section . after 03/29/2019 Results VASCULAR DIAGRAM -SCAN (06/27/2019 5:41 PM [...] 8.3 gm/dL [facility] Albumin 3.4 (L) 3.5 - 5.0 g/dL [facility] Alkaline Phosphatase 87 40 - 150 U/L [facility] Total Bilirubin 0.6 0.2 - 1.2 mg/dL [facility] Sodium 134 (L) 136 - 145 meq/L [facility] Potassium 4.5 3.5 - 5.1 meq/L [facility] ER Chloride 103 98 - 107 meq/L [facility] ER CO2 26 22 - 29 meq/L [facility] BUN 19 7 - 21 mg/dL [facility] Creatinine 0.80 0.57 - 1.25 mg/dL [facility] ER Glucose 112 (H) 70 - 105 mg/dL [facility] ER Calcium 8.9 8.4 - 10.2 mg/dL [facility] AST 106 (H) 5 - 34 U/L [facility] ALT 73 (H) 6 - 55 U/L [facility] ER EGFR 99Comment: ESTIMATED GFR mL/min/1.73 sq m [facility] IS NOT ACCURATE [facility] CREATININE CLEARANCE IN PREDICTING GLOMERULAR FILTRATION RATE. ESTIMATED GFR IS NOT APPLICABLE FOR DIALYSIS PATIENTS. Specimen Blood Performing Organization Address City/State/Zipcode Phone Number [facility] [address] [place] [address] CENTER TRANSFUSION SERVICE REPORT - SCAN (06/14/2019 6:01 PM CDT) Narrative Performed At This result has an attachment that is no t available. [place] ERCP (06/14/2019 3:25 PM CDT) Specimen Narrative Performed At FINAL REPORT [facility] A fluoroscopic unit was utilized for a [...] Verified Date/Time: 06/16/2019 1 2:50:49 Reading Location: [facility] Radiolog y Reading Room Performing Organization Address City/[facility]/Zipcode Phone Number GE RIS Tissue Exam (06/14/2019 3:21 PM CDT) Case Report Surgical Pathology Report Case: [id number] [facility] Authorizing Provider:Caleb Wilson Collected: 06/14/[address] [place] [address] MD Carmen Ordering Location: [address] Received:06/15/2019 0751 Service Pathologist: Misty Jackson MD Specimen:Ampulla, Am maday Bx DIAGNOSIS A. "AMPULLA", BIOPSY: [facility] - SQUAMOUS AND FOVEOLAR TYPE MUCOSA WITH MILD CHRONIC INFLAMMATION [facility] - NEGATIVE FOR MALIGNANCY (SEE COMMENT) Signing Pathologist Direct Phone Line: COMMENT The biopsy shows fragments [facility] of squamous and foveolar [facility] type mucosa with mild chronic inflammation and cautery. Focal muscle is also seen. No definite small bowel/ biliary lining is seen. The ampulla normally does not have squamous lining. This could be a metaplastic change. Clinical and endoscopic correlation is required. CPT Code(s) 99448 [facility] CLINICAL HISTORY Pre and postop diagnosis: en doscopic ultrasound with endo, EUS and possible ERCP. [facility] Pre and postop diagnosis: abdominal pain MEDICAL CENTER SPECIMEN SOURCE Ampulla, ampulla Bx [facility] GROSS DESCRIPTION .Received in formalin [facility] labeled with the patient's [facility] name, accession number and "ampulla" is a 0.3 x 0.3 x 0.2 cm piece of meehan-brown, irregular, mucosal-covered tissue. The specimen submitted in toto following filtration in cassette A1. SS/pl MICROSCOPIC DESCRIPTION Performed. [facility] Specimen Tissue - Ampulla Performing Organization Address City/[facility]/Zipcode Phone Number [facility] MEDICAL [address] [place] [address] CENTER CBC (Hemogram only) (06/14/2019 4:22 AM CDT)Only the most recent of3 results within the time period is included. WBC 8.7 3.5 - 10.5 K/L [facility] RBC 4.05 (L) 4.63 - 6.08 M/L [facility] Hemoglobin 12.5 (L) 13.7 - 17.5 GM/DL [facility] Hematocrit 38.1 (L) 40.1 - 51.0 % [facility] MCV 94.1 (H) 79.0 - 92.2 fL [facility] MCH 30.9 25.7 - 32.2 pg [facility] MCHC 32.8 32.3 - 36.5 GM/DL [facility] RDW 13.3 11.6 - 14.4 % [facility] Platelets 198 150 - 450 K/CU MM [facility] MPV 11.4Comment: 9.4 - 12.4 fL [facility] MPV-Approximately 20% [facility] positive bias due to method change. nRBC 0 0 - 0 /100 WBC [facility] Specimen Blood Performing Organization Address City/State/Zipcode Phone Number [address] [address] CENTER POC ACTIVATED CLOTTING TIME (06/13/2019 4:09 PM CDT) Activated Clotting Time 125Comment: TESTED AT sec CH I [address] [address] Specimen Blood Performing Organization Address City/[facility]/Zipcode Phone Number [address] [address] CENTER Type and screen, automated ([facility]) (06/13/2019 5:01 AM CDT) ABO/RH AUTOMATED (BEAKER) B POSITIVE [facility] Ab Scrn NEGATIVE [facility] Specimen Blood Performing Organization Address City/State/Zipcode Phone Number [facility] [address] [place] [address] nm myocardial perfusion PET (rest and stress) (06/12/2019 3:56 PM CDT) Specimen Narrative Performed At FINAL REPORT [employer] PROCEDURE: MYOCARDIAL PERFUSION PET IMAG ING (Rest/Stress) CPT CODE: 59669 INDICATION: Evaluate acute chest pain/di scomfort CARDIOVASCULAR [...] MD Report Verified Date/Time:06/12/2019 16:40:23 Reading Location: [place] [id number] Reading Room Procedure Note Interface, External Ris In - 06/12/2019 4:42 PM CDT FINAL REPORT PROCEDURE: MYOCARDIAL PERFUSION PET IMAG ING (Rest/Stress) CPT CODE: 18041 INDICATION: Evaluate acute chest pain/di scomfort CARDIOVASCULAR [...] Verified Date/Time: 06/12/2019 1 6:40:23 Reading Location: [address] [address] Reading Room Performing Organization Address City/State/Zipcode Phone Number GE RIS Treadmill tolerance(Non-Nuclear Treadmill) (06/12/2019 3:35 PM CDT) Specimen Narrative Performed At Protocol Name RegEximForce MUSE Time In Exercise Phase 00:01:00 Max. [...] on 06/23/2019 6:48:32 AM Performing Organization Address City/[facility] Phone Number GE MUSE ECG 12 lead (06/12/2019 3:33 PM CDT)Only the most recent of4 resultswithin the time period is included. Specimen Narrative Performed At Ventricular Rate 77 BPM GE MUSE Atrial Rate 77 BPM P-R Interval 154 ms QRS Duration 112 ms Q-T Interval 500 ms QTC Calculation(Bazett) 565 ms P Grady 77 degrees R Grady 73 degrees T Grady 83 degrees Normal sinus rhythm Incomplete right bundle branch block Left ventricular hypertrophy with repola rization abnormality Cannot rule out Septal infarct , age und etermined Prolonged QT Abnormal ECG Confirmed by MD VELZE JOSEPH P ([id number]) on 9 6:36:31 AM Procedure Note Interface, External Ris In - 06/13/2019 6:36 AM CDT Ventricular Rate 77 BPM Atrial Rate 77 BPM P-R Interval 154 ms QRS Duration 112 ms Q-T Interval 500 ms QTC Calculation(Bazett) 565 ms P Grady 77 degrees R Grady 73 degrees T Grady 83 degrees Normal sinus rhythm Incomplete right bundle branch block Left ventricular hypertrophy with repola rization abnormality Cannot rule out Septal infarct , age und etermined Prolonged QT Abnormal ECG Confirmed by MD VELEZ JOSEPH P ([id number]) on 06/13/2019 6:36:31 AM Performing Organization Address [facility] Phone Number Sky Frequency MUSE Troponin I (06/12/2019 1:09 AM CDT)Only the most recent of4 resultswithin the time period is included. Troponin I 0.05 (H) 0.00 - 0.03 ng/mL [facility] Specimen Blood Narrative Performed At Troponin I (TnI) levels must be interpreted [facility] in the context of the presenting symptoms [...] disease, and persistent tachyarrhythmia. Performing Organization Address City/State/[facility] Phone Number [address] [address] [place] Vancomycin level, trough (06/12/2019 1:09 AM CDT) Vancomycin Tr 11.6 10.0 - 20.0 ug/mL [facility] Specimen Blood Narrative Performed At Please HOLD the dose until the trough comes [facility] back. If >20 mcg/ml, DO NOT administer the dose and contact the pharmacist. Performing Organization Address [facility] Phone Number [address] [address] [place] Hepatic function panel (06/12/2019 1:09 AM CDT)Only the most recent of4 results within the time period is included. Protein, Total 6.6 6.0 - 8.3 gm/dL [facility] Albumin 3.3 (L) 3.5 - 5.0 g/dL [facility] Total Bilirubin 0.5 0.2 - 1.2 mg/dL [facility] Bilirubin, Direct 0.4 0.1 - 0.5 mg/dL [facility] Alkaline Phosphatase 39 (L) 40 - 150 U/L [facility] AST 22 5 - 34 U/L [facility] ALT 26 6 - 55 U/L [facility] Specimen Blood Performing Organization Address [facility] Phone Number [address] [address] [place] Basic metabolic panel (06/12/2019 1:09 AM CDT)Only the most recent of4 results within the time period is included. Sodium 135 (L) 136 - 145 meq/L [facility] Potassium 3.7 3.5 - 5.1 meq/L [facility] Chloride 105 98 - 107 meq/L [facility] CO2 24 22 - 29 meq/L [facility] BUN 14 7 - 21 mg/dL [facility] Creatinine 0.78 0.57 - 1.25 mg/dL [facility] Glucose 144 (H) 70 - 105 mg/dL [facility] Calcium 8.3 (L) 8.4 - 10.2 mg/dL [facility] EGFR 102Comment: ESTIMATED GFR IS mL/min/1.73 sq m [facility] NOT ACCURATE CREATININE [facility] CLEARANCE IN PREDICTING GLOMERULAR FILTRATION RATE. ESTIMATED GFR IS NOT APPLICABLE FOR DIALYSIS PATIENTS. Specimen Blood Performing Organization Address City/[facility] Phone Number [address] [address] [place] Blood Culture - Routine (Left Venipuncture) (06/11/2019 8:46 AM CDT)Only the most recent of5 resultswithin the time period is included. Result No growth in 5 days [facility] Specimen Blood Performing Organization Address City/[facility] Phone Number [address] [address] [place] Procalcitonin (06/11/2019 5:41 AM CDT)Only the most recent of2 resultswithin the time period is included. Procalcitonin 0.30 (H) <0.05 ng/mL [facility] Specimen Blood Narrative Performed At SEPSIS RISK (ng/mL) [facility] Low:0.05-0.50 Intermediate: 0.51-2.00 High: >=2.01 Performing Organization Address City/State/Zipcode Phone Number [facility] [address] [place] [address] CENTER ECHOCARDIOGRAM REPORT - SCAN (06/10/2019 9:21 PM CDT) Narrative Performed At This result has an attachment that is no t available. 2D Echo W/Doppler(CW/PW/Color) (06/10/2019 11:41 AM CDT) Ejection Fraction [facility] HEAR TLAB MKCKESSON [facility] Specimen Narrative Performed At Transthoracic Echocardiography Report (T TE) [facility]CHO HEARTLAB [facility] Demographics Patient Name Carmen MACIAS of Study 06/10/2019 [place] [id number] GenderMal e Visit Number [id number] RaceUnkn own [id number] m Number [id number] Number Date of Birth1960 Referring Physician Carolina Bansal MD Age58 year(s) [employer] Boat [employer] Tristan LunatIbacilio shipman MD Physician Procedure Type [...] Study 06/10/2019 [place] Gender Male Visit Number [id number] Race Unknown Room [place] [address] Number Date of 1960 Referri Physician Carolina Bansal MD Age 58 year(s) Sonogra linda Carrillo Travel Ot Daiana Bravo Interpr eting Chris Grossman MD [...] WBC 18.5 (H) 3.5 - 10.5 K/L [facility] RBC 3.90 (L) 4.63 - 6.08 M/L [facility] Hemoglobin 12.0 (L) 13.7 - 17.5 GM/DL [facility] Hematocrit 37.0 (L) 40.1 - 51.0 % [facility] MCV 94.9 (H) 79.0 - 92.[address] [facility] MCH 30.8 25.7 - 32.[address] [facility] MCHC 32.4 32.3 - 36.5 GM/DL [facility] RDW 14.2 11.6 - 14.4 % [facility] Platelets 195 150 - 450 K/CU MM [facility] MPV 11.5 9.4 - 12.[address] [facility] nRBC 0 0 - 0 /[address] [facility] % Neutros 83 % [facility] % Lymphs 10 % [facility] % Monos 7 % [facility] % Eos 1 % [facility] % Baso 0 % [facility] # Neutros 15.28 (H) 1.78 - 5.38 K/L [facility] # Lymphs 1.77 1.32 - 3.57 K/L [facility] # Monos 1.20 (H) 0.30 - 0.82 K/L [facility] # Eos 0.09 0.04 - 0.54 K/L [facility] # Baso 0.05 0.01 - 0.08 K/L [facility] Immature 1 0 - 1 % [facility] Granulocytes-Relative [facility] Specimen Blood Performing Organization Address City/[facility]/Zipcode Phone Number [address] [address] [place] Lactic acid, venous, Daily (06/10/2019 4:09 AM CDT)Only the most recent of2 resultswithin the time period is included. Lactate, Venous 1.1 0.5 - 2.2 mmol/L [facility] Specimen Blood Performing Organization Address City/[facility]/Zipcode Phone Number [address] [address] [place] Magnesium (06/10/2019 4:09 AM CDT)Only the most recent of2 resultswithin the time period is included. Magnesium 2.1 1.6 - 2.6 mg/dL [facility] Specimen Blood Performing Organization Address City/[facility]/Zipcode Phone Number [address] [address] [place] Lipid panel (06/10/2019 4:09 AM CDT) Triglycerides 97 mg/dL [facility] Cholesterol 124 mg/dL [facility] HDL 34 mg/dL [facility] LDL Calculated 71 mg/dL [facility] Specimen Blood Narrative Performed At Triglyceride Reference Range: [facility] Low Risk <150 [id number] High Risk 200-499 Very High Risk>=500 Cholesterol Reference Range: Low Risk <200 [id number] High Risk>240 HDL Cholesterol Reference Range: Low Risk >=60 High Risk <40 LDL Cholesterol Reference Range: Optimal<100 Near [id number] Very High >=190 Performing Organization Address [facility] Phone Number [address] [address] [place] Oxygen saturation, measured (06/10/2019 2:44 AM CDT) O2 Saturation (Measured) 86.6 % [facility] Specimen Blood Narrative Performed At If patient has internal jugular ( IJ) or [facility] subclavian central line or PICC line. Draw from distal port. Label as central venous oxygen. Performing Organization Address [facility] Phone Number [address] [address] [place] Urinalysis w/Microscopic + Reflex to Culture (06/10/2019 2:29 AM CDT) Color, UA Yellow [facility] Clarity, UA Hazy [facility] Specific Morton, UA 1.030 1.001 - 1.035 [facility] pH, UA 5.5 5.0 - 8.0 [facility] Protein, UA 70 mg/dL (A) Negative [facility] Glucose, UA 200 mg/dL (A) Negative [facility] Ketones, UA Trace (A) Negative [facility] Bilirubin, UA Negative Negative [facility] Blood, UA Negative Negative [facility] Nitrite, UA Negative Negative [facility] Leukocytes, UA Large (A) Negative [facility] Urobilinogen, UA 2.0 (H) 0.2 - 1.0 mg/dL [facility] RBC, UA 7 /HPF [facility] WBC, UA 135 /HPF [facility] Mucus Occasional [facility] Squam Epithel, UA 10 /HPF [facility] Hyaline Casts, UA 18 /LPF [facility] Specimen Source [facility] Specimen Urine Performing Organization Address City/[facility] Phone Number [address] [address] [place] Urine culture (06/10/2019 2:29 AM CDT) Result No growth [facility] Specimen Urine Performing Organization Address [facility] Phone Number [address] [address] [place] Blood gas, arterial (06/09/2019 10:10 PM CDT) pH, Arterial 7.41 7.35 - 7.45 [facility] pCO2, Arterial 38 35 - 45 mmHg [facility] pO2, Arterial 87 80 - [address] [facility] O2 Sat, Arterial 96.8 96.0 - 97.0 % [facility] HCO3, Arterial 24 21 - 29 mmol/L [facility] Base Excess, Arterial -0.7 -2.0 - 3.0 mmol/L [facility] Patient Temperature 37.0 C [facility] FIO2 21.0 % [facility] Specimen Blood, Arterial Performing Organization Address City/[facility] Phone Number [address] [address] CENTER aPTT (06/09/2019 10:06 PM CDT) PTT 27.3 22.5 - 36.0 seconds [facility] Specimen Blood Performing Organization Address [facility] Phone Number [address] [address] CENTER Prothrombin time/INR (06/09/2019 10:06 PM CDT) Protime 13.9 11.9 - 14.2 seconds [facility] INR 1.1 <=5.9 [facility] Specimen Blood Narrative Performed At Effective 03/22/2019: PT Reference Range [facility] Change New: 11.9-14.2Previous: 11.7-14.7 RECOMMENDED COUMADIN/WARFARIN INR THERAPY RANGES STANDARD DOSE: 2.0-3.0Includes: PROPHYLAXIS for venous thrombosis, systemic embolization; TREATMENT for venous thrombosis and/or pulmonary embolus. HIGH RISK: Target INR is 2.5-3.5 for patients wiht mechanical heart valves. Performing Organization Address [facility] Phone Number [address] [address] CENTER Fibrinogen (06/09/2019 10:06 PM CDT) Fibrinogen 300 225 - 434 mg/dl [facility] Specimen Blood Performing Organization Address City/[facility]/Zipcode Phone Number [address] [address] CENTER Phosphorus (06/09/2019 9:54 PM CDT) Phosphorus 3.4 2.3 - 4.7 mg/dL [facility] Specimen Blood Performing Organization Address [facility] Phone Number [address] [address] CENTER Lipase (06/09/2019 9:54 PM CDT) Lipase 38 8 - 78 U/L [facility] Specimen Blood Performing Organization Address City/[facility]/Zipcode Phone Number [address] [address] CENTER POC-Lactic Acid, Venous (06/09/2019 9:49 PM CDT) POC-Lactic Acid, Venous 1.6Comment: TESTED AT 0.9 - 1.7 mmol/L C [facility] [address] [facility] [address] Specimen Blood Performing Organization Address City/[facility]/Zipcode Phone Number [facility] [address] [place] [address] [place] after 03/29/2019 Insurance Payer Benefit Plan / Group Subscriber ID Type Phone A ddress [employer] - MEDICARE UNITED MEDICARE HMO xxxxxxxxx [facility] ([place]) [place] [address] Advance Directives For more information, please contact:[address] [phone] Code Status Date Activated Date Inactivated Comments [...]
--- OUTSIDE RECORDS SUMMARY | 2020-03-29 17:43 | XMS REPORT ---
[...] Problem Atherosclerotic heart disease of I25.10 Active [place] coronary artery without angina pectoris Problem Symptomatic [...] Start Date End Date Status Dosage Lactulose [facility] [id number] 20 GM/30ML Orally Active 30 ml Once a day Results No Known Results Summary Purpose eClinicalWorks Submission
--- OUTSIDE RECORDS SUMMARY | 2020-03-29 17:43 | XMS REPORT | Continuity of Care Document ---
:[address] [facility] t Address [address] [place] [address] Care Team Providers Name Role Phone Sharpless Primary Care Physician VLADISLAV MCKENNA Attending Clinician Unavailable Vladislav Mckenna MD Attending Clinician [phone] Lisa HAYES Attending Clinician Adeel HAYES Attending Clinician Brian Moulton CRNA Attending Clinician Nereyda Dawn MD Attending Clinician Alicia Moody MD Attending Clinician Divina CATHERINE Attending Clinician Unavailable VLADISLAV MCKENNA Admitting Clinician Unavailable Divina CATHERINE Admitting Clinician Unavailable Payers Payer Name Policy Type Policy Number Effective Date Expiration Date S donald [facility] xxxxxxxxx [facility] - MEDICARE MGD - [facility] MEDICARE [id number] Problems Condition Condition Condition Status Onset Resolution Last Treating Co mments Source Name Details Category Date Date Treatment Clinician Date Hypertensi Hypertensi Disease Active [facility] ve ve [facility]20 [facility] emergency emergency 00:00: [facility] 00 Center Acute Acute Disease Active [facility] kidney kidney 7-20 [facility] - injury injury 00:00: Medical 00 Center Diarrhea Diarrhea Disease Active [facility] - 00:[facility]: Medical 00 [place] Transamini Transamini Disease Active [facility] tis tis 7-20 [facility] - 00:[facility]: Medical 00 Center Hepatitis Hepatitis Disease Active [facility] C virus C virus 7-20 [facility] - infection infection 00:00: [facility] without without 00 Center hepatic hepatic coma coma Chest pain Chest pain Disease Active [facility] 7[facility]16 [facility] - 00:[facility]: Medical 00 Center Syncope Syncope Disease Active [facility] 7-16 [facility] - 00:00: Medical 00 [place] Paroxysmal Paroxysmal Disease Active [facility] atrial atrial 7-16 [facility] - fibrillati fibrillati 00:00: Me dical on on 00 Center COPD COPD Disease Active [facility] (chronic (chronic 7-16 [facility] - obstructiv obstructiv 00:00: Me dical e e 00 Center pulmonary pulmonary disease) disease) CAD CAD Disease Active [facility] (coronary (coronary 3-30 [facility] - artery artery 00:00: Medical disease) disease) 00 Center Atrial Atrial Problem Active [facility] fibrillati fibrillati Abigail kes - on, on, Memoria unspecifie unspecifie l d type d type Outpati ent Clinics Primary Primary Problem Active [facility] insomnia insomnia [facility] Left foot Left foot Problem Active [facility] pain pain [facility] Chronic Chronic Problem Active [facility] generalize generalize Abigail kes - d pain d pain Memoria l [facility] Closed Closed Problem Active [facility] displaced displaced [facility] - fracture fracture Memori a of first of first l metatarsal metatarsal Ou tpati bone of bone of ent left foot, left foot, Cl inics sequela sequela Arterioscl Arterioscl Problem Active [facility] erotic erotic [facility] - cardiovasc cardiovasc Me moria ular ular l disease disease Outpati (ASCVD) (ASCVD) ent Clinics HTN HTN Diagnosis Active [facility] (hypertens (hypertens Abigail kes - ion) ion) Memoria l [facility] ent Clinics Pure Pure Problem Active [facility] hyperchole hyperchole Abigail kes - sterolemia sterolemia Me moria l [facility] ent Clinics Dementia Dementia Problem Active [facility] without without [facility] - behavioral behavioral Me moria disturbanc disturbanc l e, e, Outpati unspecifie unspecifie en t d dementia d dementia Cl inics type type Cigarette Cigarette Problem Active [facility] nicotine nicotine [facility] - dependence dependence Me moria without without l complicati complicati Ou tpati on on ent Clinics Hyperlipid Hyperlipid Problem Active [facility] emia emia [facility] - Memoria l [facility] ent [facility] Elevated Elevated Problem Active [facility] blood blood [facility] - pressure pressure Memori a reading reading l [facility] ent [facility] Abdominal Abdominal Problem Active [facility] pain pain [facility] - Memoria l [facility] ent [facility] Pulmonary Pulmonary Diagnosis Active [facility] emphysema, emphysema, Abigail kes - unspecifie unspecifie Me moria d d l emphysema emphysema Outp ati type type ent Clinics Acute Acute Problem Active [facility] myocardial myocardial Abigail kes - infarction infarction Me moria , , l subendocar subendocar Ou tpati dial dial ent infarction infarction Cl inics Chronic Chronic Problem Active [facility] depressive depressive Abigail kes - person person Memoria l [facility] ent [facility] Hospital Hospital Problem Active [facility] discharge discharge [facility] - follow-up follow-up Fla[place] radha l [facility] ent [facility] Constipati Constipati Problem Active [facility] on, on, [facility] - unspecifie unspecifie Me moria d d l constipati constipati Ou tpati on type on type ent Clinics History of History of Problem Active [facility] coronary coronary [facility] - artery artery Memoria disease disease l [facility] ent Clinics Hypertensi Hypertensi Problem Active [facility] ve ve [facility] - emergency emergency [place] radha l [facility] ent Clinics Chest Chest Problem Active [facility] pain, pain, [facility] - unspecifie unspecifie Me moria d type d type l [facility] ent Clinics Lumbar Lumbar Problem Active [facility] degenerati degenerati Abigail kes - ve disc ve disc Memoria disease disease l [facility] ent Clinics Bipolar 1 Bipolar [address] [facility] disorder disorder [facility] - Memoria l [facility] ent Clinics Symptomati Symptomati Problem Active [facility] c c [facility] - hypotensio hypotensio Me moria n n l [facility] Other Other Problem Active [facility] specified specified [facility] - urinary urinary Memoria incontinen incontinen l ce ce [facility] Panic Panic Diagnosis Active [facility] attacks attacks [facility] Benign Benign Problem Active [facility] prostatic prostatic [facility] - hyperplasi hyperplasi Me moria a with a with l lower lower [facility] urinary urinary ent tract tract Clinics symptoms symptoms Moderately Moderately Diagnosis Active [facility] severe severe [facility] - major major Memoria depression depression l [facility] Chronic Chronic Problem Active [facility] hepatitis hepatitis [facility] - C without C without Flaquito radha hepatic hepatic l coma coma [facility] Simple Simple Problem Active [facility] chronic chronic [facility] - bronchitis bronchitis Me moria l [facility] Cirrhosis Cirrhosis Problem Active [facility] of liver of liver [facility] - without without Memoria ascites, ascites, l unspecifie unspecifie Ou tpati d hepatic d hepatic ent cirrhosis cirrhosis Clin ics type type Complaints Complaints Problem Active [facility] of memory of memory [facility] - disturbanc disturbanc Me moria e e l [facility] ent Clinics Malignant Malignant Problem Active [facility] hypertensi hypertensi Abigail kes - ve urgency ve urgency Me moria l [facility] ent Clinics Allergies, Adverse Reactions, Alerts Allergy Allergy Status Severity Reaction(s) Onset Inactive Treating Comm ents Source Name Type Date Date Clinician Penicill DA Active [facility] ins 11-01 Clear 00:00: [facility] codeine DA Active [facility] 11-01 Clear 00:00: Pink 00 [facility] Cephalos Propensi Active Nausea And [facility] porins ty to Vomiting 7-03 [facility] - adverse 00:00: Medical reaction 00 Center s Codeine Propensi Active Hives [facility] ty to 7-15 [facility] - adverse 00:00: Medical reaction 00 Center s Penicill Propensi Active [facility] ins ty to 3-30 [facility] - adverse 00:00: Medical reaction 00 Center s penicill Adverse Active rash [facility] in Reaction [facility] - Memoria l [facility] ent [facility] Cephalos Adverse Active vomiting [facility] porins Reaction [facility] - Memoria [facility] ent Clinics Social History Social Habit Start Date Stop Date Quantity Comments Source Sex Assigned At [facility] History of tobacco 2018-05-[address] [facility] use [facility] Smoking Status Start Date Stop Date Source Former smoker 2019-06-14 00:00:00 2019-06-14 00:00:[address] [facility] [address] [facility] Medications Ordered Filled Start Stop Current Ordering Indication Dosage Frequency Signature Comments Components Source Medication Medication Date Date Medication? Clinician (SIG) Name Name Buddy Goodwin Yes Na Heard as needed [facility] 3-19 for nausea [facility] - 00:00: Memoria 00 l Outpati ent Clinics amLODIPine 2018- No 10mg QD Take [address] (NORVASC) 06-15- by mouth [facility] - 10 MG 12:21: 00:00 daily. Medical tablet 03 :00 Center cloNIDine 2018- No .2mg Q.5D Take 0.[address] HCl 8- 08-22 mg by [facility] - (CATAPRES) 12:21: 00:00 mouth 2 Med ical 0.2 MG 03 :00 (two) [place] tablet times daily. hydroCHLORO 2018- No 12.5mg QD Take 12.[address] thiazide 8- 08-22 mg by [facility] - (HYDRODIURI 12:21: 00:00 mouth Medi dustin L) 12.5 MG 03 :00 daily. Center tablet clopidogrel 2019- No 75mg QD Take [address] (PLAVIX) 75 06-15 tablet (75 L ukes - mg tablet 00:00: 23:59 mg total) Me dical 00 :00 by mouth Center daily. lidocaine 2018- No 1{patch Q24H Place [address] (LIDODERM) 06-15 } patch onto Abigail kes - 5 % patch 00:00: 23:59 the skin Med ical 00 :00 daily for Center 30 days Remove & Discard patch within 12 hours or as directed by . oxyCODONE 2018- No 5mg Take 1 [facility] (ROXICODONE 06-15 tablet (5 Abigail kes - ) 5 MG 00:00: 23:59 mg total) Medic al immediate 00 :00 by mouth Center release every 8 tablet (eight) hours as needed for up to 10 days. Max Daily Amount: 15 mg budesonide- Yes 2{puff} Q.5D Inhale [address] formoterol 8-16 puffs by [facility] - (SYMBICORT) 16:38: mouth via M edical 80-4.5 36 inhaler 2 [place] mcg/actuati (two) on inhaler times daily. lithium 300 2019- Yes 300mg QD Take [address] MG capsule 8-16 mg by [facility] - 16:26: mouth Medical 49 nightly . [place] amiodarone 2019-0 Yes 100mg Q.5D Take [address] (PACERONE) 8-16 mg by [facility] - 100 MG 16:26: mouth 2 Medical tablet 49 (two) Center times daily. isosorbide 2018- Yes 60mg QD Take [address] mononitrate 8-16 by mouth Luke s - (IMDUR) 60 16:26: daily. Medic al MG 24 hr 49 Center tablet ranolazine Yes 1000mg QD Take 1,[address] (RANEXA) 8-16 mg by [facility] - 1,000 mg SR 16:26: mouth Medic al tablet 49 daily. [place] methocarbam 2019- No 750mg Q.25D Take [address] ol 8-16 08-16 mg by [facility] - (ROBAXIN) 16:24: 00:00 mouth 4 Medi dustin 750 MG 23 :00 (four) Center tablet times daily. lisinopril Yes 40mg QD Take [address] (PRINIVIL,Z 8-16 by mouth Luke s - ESTRIL) 40 16:21: daily . Medi dustin MG tablet 31 Center Albuterol Albuterol 2018-0 Yes Na Heard inhale [address] [facility] Sulfate Sulfate 5-14 vial by [facility] - 00:00: mouth via Memoria 00 nebulizer l 3 times a Outpati day ent Clinics Ipratropium Ipratropium 2018-0 Yes Na Heard as [facility] Dowell Dowell 5-14 directed [facility] - 00:00: Memoria 00 l Outpati ent Clinics Amlodipine Amlodipine 2017-10 Yes Na Heard [address] [facility] Besylate Besylate 0-29 [facility] - 00:00: Memoria 00 l Outpati ent Clinics HYDROcodone 2017- Yes 1{tbl} Take [address] -acetaminop 7-19 tablet by Kofi ren - miryam (NORCO 08:53: mouth Medica l 10-325) 13 every 6 Center 10-325 mg (six) per tablet hours as needed for Pain. mometasone- 2018-0 Yes 2{puff} Q.5D Inhale [address] formoterol 7-19 puffs by [facility] - (DULERA) 08:52: mouth via Medi dustin 100-5 02 inhaler 2 Center mcg/actuati (two) on inhaler times daily. albuterol 2018-0 Yes 1{puff} Inhale [address] HFA 7-19 puff by [facility] - (VENTOLIN 08:52: mouth via Med ical HFA) 90 01 inhaler Center mcg/actuati every 6 on inhaler (six) hours as needed for Wheezing. aspirin 81 2018-0 Yes 81mg QD Take 1 [facility] MG chewable 7-19 tablet (81 Abigail kes - tablet 00:00: mg total) Medica l 00 by mouth Center daily. traZODone 2017-0 Yes 25mg Take 0.[address] [facility] (DESYREL) 7-19 tablets [facility]ukes - 50 MG 00:00: (25 mg Medical tablet 00 total) by Center mouth every night as needed for Sleep. nitroglycer 2017-0 Yes Put [address] in -19 under [facility] - (NITROSTAT) 00:00: tongue Medi dustin 0.4 MG SL 00 every 5min Cent er tablet as needed for chest pain.No more than 3 doses in 15min.. lidocaine 2018-0 Yes 3{patch Q24H Place [address] (LIDODERM) -19 } patches [facility] - 5 % patch 00:00: onto the Medi dustin 00 skin daily Center Remove & Discard patch within 12 hours or as directed by . famotidine 2017-0 Yes 20mg Take 1 [facility] (PEPCID) 20 7-19 tablet (20 Abigail kes - MG tablet 00:00: mg total) Med ical 00 by mouth 2 Center (two) times daily as needed for Heartburn. atorvastati 2018-0 Yes 20mg QD Take [address] n (LIPITOR) 7-19 tablet (20 Abigail kes - 20 MG 00:00: mg total) Medical tablet 00 by mouth Center nightly Take instead of simvastati n for cholestero l. Clonidine Clonidine Yes Na Heard [address] HCl HCl 6-27 twice x 1 [facility] - 00:00: week then Memoria 00 1 tablet l [facility] carvedilol Yes 25mg Take 1 [facility] (COREG) 25 4-05 tablet (25 Kofi es - MG tablet 00:00: mg total) Med ical 00 by mouth 2 Center (two) times daily with breakfast and dinner. amitriptyli Yes 50mg QD Take [address] ne (ELAVIL) 3-30 by mouth Luke s - 50 MG 13:44: nightly. Medical tablet 02 [place] DULoxetine Yes 60mg QD Take [address] (CYMBALTA) 3-30 by mouth [facility] - 60 MG 13:44: daily. Medical capsule 02 [place] vitamin E Yes 200U QD Take [address] 200 UNIT 3-30 Units by [facility] - capsule 13:44: mouth Medical 02 daily. [place] Amitriptyli Amitriptyli Yes Na Heard [address] ne HCl ne HCl [facility] - Memoria l [facility] Clin[facility] Dulera Dulera Yes Na Heard 2 puffs [facility] - Memoria l Outpati ent Clinics Amiodarone Amiodarone Yes Na Heard [address] HCl HCl [facility] - Memoria l [facility] Aspir-81 Aspir-81 Yes Na Heard [address] [address] [facility] Isosorbide Isosorbide Yes Na Heard [address] Mononitrate Mononitrate in the [facility] - ER ER morning Memoria l [facility] Clinics Mcmillin Mcmillin Yes Na Heard [address] Carbonate Carbonate at bedtime [facility] - Memoria l Outpati ent Clinics Atorvastati Atorvastati Yes Na Ehard [address] [facility] [facility] n Calcium n Calcium [facility] - Memoria l Outpati ent Clinics Losartan Losartan Yes Na Heard [address] Potassium Potassium [facility] - Mem[facility] l [facility] Gabapentin Gabapentin Yes Na Heard [address] [facility] Carvedilol Carvedilol Yes Na Heard as [facility] directed [facility] - Memoria l [facility] HydrALAZINE HydrALAZINE Yes Na Heard [address] [facility] [facility] HCl HCl with food [facility] - Memoria l [facility] Clinics Citalopram Citalopram Yes Na Heard [address] Hydrobromid Hydrobromid L ukes - e e Memoria l [facility] ent Clinics Lorazepam Lorazepam Yes Na Heard [address] [facility] as needed [facility] - Memoria l [facility] ent Clinics [place] Yes Na Heard [address] [facility] as needed [facility] - Memoria l [facility] Clinics Hydrochloro Hydrochloro Yes Na Heard [address] thiazide thiazide in the [facility]ukes - morning Memoria l [facility] ent Clinics Ranolazine Ranolazine Yes Na Heard [address] ER ER [facility] - Memoria l [facility] Clinics Lisinopril Lisinopril Yes Na Heard [address] [facility] [facility] Clinics Vital Signs Vital Name Observation Time Observation Value Comments Source Systolic blood 2019-06-15 11:23:00 128 mm[Hg] [facility] Diastolic blood 2019-06-15 11:23:00 80 mm[Hg] [facility] Heart rate 2019-06-15 11:23:00 66 /min [facility] Body temperature 2019-06-15 11:23:00 36.28 Lanny [facility] Respiratory rate 2019-06-15 11:23:00 18 /min [facility] Oxygen saturation in 2019-06-15 11:23:00 99 /min [facility] Arterial blood by Medical Ce nter Pulse oximetry Body weight Measured 2019-06-10 06:00:00 68 kg [facility] BMI 2019-06-10 06:00:00 22.14 kg/m2 [facility] Body height 2019-06-09 17:00:[address] [facility] Procedures Procedure Date / Time Performing Clinician Source Performed VASCULAR DIAGRAM -SCAN 2019-06-27 17:41:14 Provider, Default [facility] REPORT OF PROCEDURE - 2019-06-17 15:18:13 Caleb Dawn [facility] ENDOSCOPY [facility] REPORT OF PROCEDURE - 2019-06-17 15:11:39 Caleb Dawn [facility] ENDOSCOPY [facility] REPORT OF PROCEDURE - 2019-06-16 13:33:30 Provider, [facility] ENDOSCOPY SCAN Scanning [facility] CARDIAC CATH REPORT - 2019-06-16 13:33:24 Provider, [facility] SCAN Scanning [facility] RHYTHM STRIP - SCAN 2019-06-16 13:33:17 Provider, [facility] COMPREHENSIVE METABOLIC 2019-06-15 05:37:00 Dakota [facility] TRANSFUSION SERVICE 2019-06-14 18:01:40 Provider, [facility] REPORT - SCAN [facility] [place] ERCP 2019-06-14 15:25:00 [facility] TISSUE EXAM 2019-06-14 15:21:00 [facility] 2019-06-14 14:12:00 Caleb Dawn [facility] ULTRASOUND,W/ENDO [facility] ERCP W/BIOPSY 2019-06-14 14:12:00 Nereyda [facility] ERCP,BALLOON SWEEPING 2019-06-14 14:12:00 Nereyda [facility] ERCP,PAPILLOTOMY 2019-06-14 14:12:00 Nereyda [facility] PROCEDURE W/ C-ARM 2019-06-14 14:12:00 Caleb Dawn sophie [facility] I [facility] CBC (HEMOGRAM ONLY) 2019-06-14 04:22:00 Wilver Cheek [facility] COMPREHENSIVE METABOLIC 2019-06-14 04:22:00 Dakota [facility] POCT-ACT 2019-06-13 16:09:00 [facility] HEART CATH ONLY - NO 2019-06-13 13:45:[address] [facility] TYPE AND SCREEN, 2019-06-13 05:01:00 Trina Moody [facility] [place] CARDIAC PET PERFUSION 2019-06-12 15:56:00 Emelyn Restrepo [facility] - REST AND/OR STRESS Medical Cente r TREADMILL 2019-06-12 15:35:01 Unknown, 7 [facility](NON-NUCLEAR Medical Ce nter TREADMILL) ECG 12-LEAD 2019-06-12 15:33:31 Unknown, 7 [facility] ECG 12-LEAD 2019-06-12 15:24:57 Unknown, 7 [facility] VANCOMYCIN LEVEL, TROUGH 2019-06-12 01:09:00 [facility] BASIC METABOLIC PANEL (7) 2019-06-12 01:09:00 Sebastian Gonzalez [facility] HEPATIC FUNCTION PANEL 2019-06-12 01:09:00 Sebastian Gonzalez [facility] CBC (HEMOGRAM ONLY) 2019-06-12 01:09:00 [facility] TROPONIN I 2019-06-12 01:09:00 [facility] ECG 12-LEAD 2019-06-12 00:57:35 Unknown, [address] BLOOD CULTURE 2019-06-11 08:46:00 Danish Barber [facility] BLOOD CULTURE 2019-06-11 05:55:00 Gus Gomez [facility] PROCALCITONIN 2019-06-11 05:41:00 DanishBarber [facility] CBC (HEMOGRAM ONLY) 2019-06-11 05:41:[address] [facility] BASIC METABOLIC PANEL (7) 2019-06-11 05:41:00 Sebastian Gonzalez [facility] HEPATIC FUNCTION PANEL 2019-06-11 05:41:00 Lisa [facility] ECHOCARDIOGRAM REPORT - 2019-06-10 21:21:34 Provider, [facility] 2D ECHO W/ DOPPLER 2019-06-10 11:41:14 Zaf[facility]Kaveh [facility] ([facility]PW/COLOR) [facility] Center MAGNESIUM 2019-06-10 04:09:00 Gus Gomez [facility] BASIC METABOLIC PANEL (7) 2019-06-10 04:09:00 Lisa DonitaJessica I [facility] HEPATIC FUNCTION PANEL 2019-06-10 04:09:00 Leon GonzalezLalo [facility] LIPID PANEL 2019-06-10 04:09:00 Leon GonzalezLalo [facility] LACTIC ACID, VENOUS 2019-06-10 04:09:[address] [facility] TROPONIN I 2019-06-10 04:09:00 Zafar Soni [facility] CBC W/PLT COUNT & AUTO 2019-06-10 04:09:00 Barber Peng [facility] OXYGEN SATURATION, 2019-06-10 02:44:00 Gus Gomez [facility] URINE CULTURE 2019-06-10 02:29:00 Lisa Sebastian [facility] URINALYSIS W/ REFLEX 2019-06-10 02:29:00 [facility] LACTIC ACID, VENOUS 2019-06-10 01:37:[address] [facility] BLOOD GAS, ARTERIAL 2019-06-09 22:10:[address] [facility] BLOOD CULTURE 2019-06-09 22:07:00 Barber Peng [facility] PROTHROMBIN TIME/INR 2019-06-09 22:06:[address] [facility] APTT 2019-06-09 22:06:00 Gus Gomez [facility] FIBRINOGEN 2019-06-09 22:06:00 Gus Gomez [facility] BLOOD CULTURE 2019-06-09 21:55:00 Gus Gomez [facility] TROPONIN I 2019-06-09 21:54:00 Sebastian Gonzalez [facility] MAGNESIUM 2019-06-09 21:54:00 Barber Peng [facility] COMPREHENSIVE METABOLIC 2019-06-09 21:54:00 Barber Peng tt [facility] PROCALCITONIN 2019-06-09 21:54:00 Gus Gomez [facility] BASIC METABOLIC PANEL (7) 2019-06-09 21:54:[address] [facility] HEPATIC FUNCTION PANEL 2019-06-09 21:54:[address] [facility] LIPASE 2019-06-09 21:54:00 Gus Gomez [facility] PHOSPHORUS 2019-06-09 21:54:00 Gus Gomez [facility] CBC W/PLT COUNT & AUTO 2019-06-09 21:54:00 Gus Gomez [facility] POCT-LACTIC ACID, VENOUS 2019-06-09 21:49:00 Sebastian Gonzalez [facility] ECG 12-LEAD 2019-06-09 20:26:42 Unknown, Hl7 Doctor [facility] BLOOD CULTURE 2019-06-09 18:29:00 Sebastian Gonzalez [facility] TROPONIN I 2019-06-09 18:29:00 Sebastian Gonzalez [facility] Encounters Start End Encounter Admission Attending Care Care Encounter Source Date/Time Date/Time Type Type Clinicians Facility Department ID 2020-02-12 2020-02-12 [facility] [id number] 11:15:00 11:15:00 [facility] 2020-01-26 2020-01-26 [facility] [id number] [facility] 11:20:00 11:20:00 [facility]ronics [facility] 2020-01-11 2020-01-11 [facility] [id number] [facility] 15:32:00 15:32:00 [place] [facility] Medicine Outpati ent Clinics 2020-01-03 2020-01-03 [facility] [id number] 09:20:00 09:20:00 t [place] [facility] [address] [facility] Medicine Outpati ent Clinics 2020-01-02 2020-01-02 Outpatient [id number] [facility] 09:54:00 09:54:00 2019-11-13 2019-11-13 [facility] [facility] [id number] [facility] 14:13:00 14:13:00 t Specialty/U Abigail kes - Specialty rology [facility] l Clinic Outpati ent Clinics 2019-11-01 2019-11-01 [facility] [id number] [facility] 09:20:00 09:20:00 [place] [employer] [facility] - [facility] [facility] Medicine Outpati ent Clinics 2019-10-27 2019-10-27 Outpatient MHSE [facility]SE 7500 [facility] 08:50:00 08[facility]50:[facility] 2019-09-05 2019-09-05 [facility] [id number] [facility] 09:29:00 09:29:00 [place] [facility] - [facility] [facility] Medicine Outpati ent Clinics 2019-05-31 2019-05-31 [facility] [id number] [address] 12:00:00 12:00:00 [place] [employer] [facility] - [address] [facility] Medicine Outpati ent Clinics 2019-05-30 2019-05-30 [facility] [id number] [address] 15:00:00 15:00:00 [place] [facility] - [address] [facility] Medicine Outpati ent Clinics 2019-04-26 2019-04-26 [facility] [id number] 15:09:00 15:09:00 [place] [facility] - Drive [facility] Medicine Outpati ent Clinics 2019-03-30 2019-03-30 [facility] [id number] [address] 15:40:00 15:40:00 [place] [address] [place] s - Drive [facility] Medicine l Medicine Outpati ent Clinics 2019-02-23 2019-02-23 Outpatient E SE MED [id number] 15:40:00 15:40:00 [facility] 2019-01-10 2019-01-10 [facility] [id number] 08:41:00 08:41:00 [place] [address] [place] s - Drive [facility] Medicine l Medicine Outpati ent Clinics 2018-12-12 2018-12-12 [facility] [id number] [address] 08:15:00 08:15:00 [place] [address] [place] - Drive [facility] Medicine l Medicine Outpati ent Clinics 2018-07-27 2018-07-27 [facility] [id number] 15:15:00 15:15:00 [place] [address] [employer] s - Drive [facility] Medicine l Medicine Outpati ent Clinics 2018-06-09 2018-06-09 [facility] [id number] 08:00:00 08:00:00 [place] [employer] s - Drive [facility] Medicine l Medicine Outpati ent Clinics 2018-05-31 2018-05-31 [facility] [id number] 09:00:00 09:00:00 [place] [address] [employer] s - Drive [facility] Medicine l Medicine Outpati ent Clinics 2018-04-20 2018-04-20 [facility] [id number] 09:45:00 09:45:00 [place] [address] [place] - Drive [facility] Medicine l Medicine Outpati ent Clinics 2018-04-15 2018-04-15 [facility] [id number] 15:26:00 15:26:00 [place] [address] [place] - Drive [facility] Medicine l Medicine Outpati ent Clinics 2018-03-15 2018-03-15 [facility] [id number] 15:15:00 15:15:00 [place] [address] [place] - Drive [facility] Medicine l Medicine Outpati ent Clinics 2018-02-28 2018-02-28 [facility] [id number] 09:15:00 09:15:00 [place] [employer] [facility] Results Test Description Test Time Test Comments Results Result Comments Source BASIC METABOLIC PANEL 2019-11-04 06:36:00 Test Item Value Reference Range Interpretation Comme nts SODIUM (test code = NA) 141 mmol/L 134-147 N POTASSIUM (test code = K) 3.7 mmol/L 3.4-5.0 N CHLORIDE (test code = CL) 108 mmol/L 100-108 N CARBON DIOXIDE (test code = CO2) 27 mmol/L 21-32 N ANION GAP (test code = GAP) 6.0 GAP calc 4.0-15.0 N GLUCOSE (test code = GLU) 98 MG/DL 70-110 N BLOOD UREA NITROGEN (test code = BUN) 14 MG/DL 7-18 N GLOMERULAR FILTRATION RATE (test code = GFR) >=60 max estimate estG FR >60 CREATININE (test code = CREAT) 1.1 MG/DL 0.8-1.3 N CALCIUM (test code = CA) 8.9 MG/DL 8.5-10.1 N CBC W/AUTO [id number] 06:32:00 Test Item Value Reference Range Interpretation Comments WHITE BLOOD CELL (test code = 10.3 K/mm3 3.5-11.0 N WBC) RED BLOOD CELL (test code = RBC) 4.53 M/mm3 4.70-6.10 L HEMOGLOBIN (test code = HGB) 14.0 G/DL 12.3-15.9 N HEMATOCRIT (test code = HCT) 42.2 % 35.8-46.7 N MEAN CELL VOLUME (test code = 93.2 Fl 86.3-98.9 N MCV) MEAN CELL HGB (test code = MCH) 30.9 pg 28.9-34.4 N MEAN CELL HGB CONCETRATION (test 33.2 G/DL 32.1-34.5 N code = MCHC) RED CELL DISTRIBUTION WIDTH (test 13.9 SD 11.5-14.5 N code = RDW) PLATELET COUNT (test code = PLT) 226.0 K/mm3 150-450 N MEAN PLATELET VOLUME (test code = 11.30 fL 7.0-9.6 H MPV) NEUTROPHIL % (test code = NT%) 65.3 % 40-76 N LYMPHOCYTE % (test code = LY%) 18.3 % 20.5-51.1 L MONOCYTE % (test code = MO%) 10.0 % 1.7-9.3 H EOSINOPHIL % (test code = EO%) 6.1 % 0.0-6.0 H BASOPHIL % (test code = BA%) 0.3 % 0.0-2.0 N NEUTROPHIL # (test code = NT#) 6.72 K/mm3 1.8-7.6 N LYMPHOCYTE # (test code = LY#) 1.9 K/mm3 0.6-3.0 N MONOCYTE # (test code = MO#) 1.0 K/mm3 0.2-1.5 N EOSINOPHIL # (test code = EO#) 0.6 K/mm3 0.0-0.4 H BASOPHIL # (test code = BA#) 0.0 K/mm3 0.0-0.2 N MANUAL DIFF REQUIRED (test code = NO DIFF/SCN CRITERIA MDIFF) COMPREHENSIVE METABOLIC [id number] 06:08:00 Test Item Value Reference Range Interpretation Comments SODIUM (test code = NA) 141 mmol/L 134-147 N POTASSIUM (test code = 3.6 mmol/L 3.4-5.0 N K) CHLORIDE (test code = 109 mmol/L 100-108 H CL) CARBON DIOXIDE (test 29 mmol/L 21-32 N code = CO2) ANION GAP (test code = 3.0 GAP calc 4.0-15.0 L GAP) GLUCOSE (test code = 110 MG/DL 70-110 N GLU) BLOOD UREA NITROGEN 14 MG/DL 7-18 N (test code = BUN) GLOMERULAR FILTRATION >=60 max estimate >60 RATE (test code = GFR) estGFR CREATININE (test code = 1.1 MG/DL 0.8-1.3 N CREAT) TOTAL PROTEIN (test code 7.3 G/DL 6.4-8.2 N = PROT) ALBUMIN (test code = 3.1 G/DL 3.4-5.0 L ALB) GLOBULIN (test code = 4.2 GM/dL GLOB) ALBUMIN/GLOBULIN RATIO 0.7 RATIO 1.2-2.2 L (test code = A/G) CALCIUM (test code = CA) 8.7 MG/DL 8.5-10.1 N BILIRUBIN TOTAL (test 0.70 MG/DL 0.2-1.2 N code = BILT) SGOT/AST (test code = 33 Unit/L 15-37 N AST) SGPT/ALT (test code = 28 Unit/L 12-78 N ALT) ALKALINE PHOSPHATASE 36 Unit/L 50-136 L TOTAL (test code = ALKP) CBC W/AUTO [id number] 05:52:00 Test Item Value Reference Range Interpretation Comments WHITE BLOOD CELL (test code = 11.4 K/mm3 3.5-11.0 H WBC) RED BLOOD CELL (test code = RBC) 4.54 M/mm3 4.70-6.10 L HEMOGLOBIN (test code = HGB) 14.0 G/DL 12.3-15.9 N HEMATOCRIT (test code = HCT) 42.4 % 35.8-46.7 N MEAN CELL VOLUME (test code = 93.4 Fl 86.3-98.9 N MCV) MEAN CELL HGB (test code = MCH) 30.8 pg 28.9-34.4 N MEAN CELL HGB CONCETRATION (test 33.0 G/DL 32.1-34.5 N code = MCHC) RED CELL DISTRIBUTION WIDTH (test 14.2 SD 11.5-14.5 N code = RDW) PLATELET COUNT (test code = PLT) 238.0 K/mm3 150-450 N MEAN PLATELET VOLUME (test code = 11.70 fL 7.0-9.6 H MPV) NEUTROPHIL % (test code = NT%) 62.7 % 40-76 N LYMPHOCYTE % (test code = LY%) 24.1 % 20.5-51.1 N MONOCYTE % (test code = MO%) 10.7 % 1.7-9.3 H EOSINOPHIL % (test code = EO%) 2.2 % 0.0-6.0 N BASOPHIL % (test code = BA%) 0.3 % 0.0-2.0 N NEUTROPHIL # (test code = NT#) 7.15 K/mm3 1.8-7.6 N LYMPHOCYTE # (test code = LY#) 2.7 K/mm3 0.6-3.0 N MONOCYTE # (test code = MO#) 1.2 K/mm3 0.2-1.5 N EOSINOPHIL # (test code = EO#) 0.3 K/mm3 0.0-0.4 N BASOPHIL # (test code = BA#) 0.0 K/mm3 0.0-0.2 N MANUAL DIFF REQUIRED (test code = NO DIFF/SCN CRITERIA MDIFF) PROCALCITONIN (PCT)2019-11-03 03:42:00 Test Item Value Reference Range Interpretation Comments PROCALCITONIN (PCT) < 0.05 ng/mL 0.00-0.05 N PROCALCI TONIN (PCT) (test code = PROCAL) NORMAL RANGE (ADULT): <0.05 NG/ML. * a concentration < 0.5 ng/mL represent s a low risk of severe sepsis and/or septic s hock.* a concentration >2 ng/mL represent s a high risk of se jeane sepsis and/or s eptic shock.Neverthel ess, concentrations <0.5 ng/mL do not ex clude aninfection, on account of loca lized infections (withoutsystemi c signs) which ca n be associated with such lowconcentratio ns, or a systemic infe ction in its initials tages (< 6 hours). Furthermore, in creased procalcitoninca n occur without infecti on. PCT concentrations between 0.5and 2.0 ng/m L should be inter preted taking into acc ount thepatient's hi story. It is recommend ed to retest PCT with in6-24 hours if any concentrations <2 ng/mL are obtai brandon. PROCALCITONIN (PCT)2019-11-03 03:42:00 Test Item Value Reference Range Interpretation Comments PROCALCITONIN (PCT) < 0.05 ng/mL 0.00-0.05 PROCALCI TONIN (PCT) (test code = PROCAL) NORMAL RANGE (ADULT): <0.05 NG/ML. * a concentration < 0.5 ng/mL represent s a low risk of severe sepsis and/or septic s hock.* a concentration >2 ng/mL represent s a high risk of se jeane sepsis and/or s eptic shock.Neverthel ess, concentrations <0.5 ng/mL do not ex clude aninfection, on account of loca lized infections (withoutsystemi c signs) which ca n be associated with such lowconcentratio ns, or a systemic infe ction in its initials tages (< 6 hours). Furthermore, in creased procalcitoninca n occur without infecti on. PCT concentrations between 0.5and 2.0 ng/m L should be inter preted taking into acc ount thepatient's hi story. It is recommend ed to retest PCT with in6-24 hours if any concentrations <2 ng/mL are obtai brandon. LACTIC [id number] 16:03:00 Test Item Value Reference Range Interpretation Comments LACTIC ACID (test code = LACT) 1.0 mmol/L 0.4-2.0 N - XR CHEST 1 [id number] 15:59:00 Name: ALHAJI FARAH [place] : 1960 Age/S: 58 / M [address] Unit #: [id number] Loc: [place] [address] Phys: Jac Leal MD Acct: [id number] Dis Date: Status: ADM IN PHONE #: [phone] Exam Date: 11/02/2019 1556 FAX #: Reason: Fever EXAMS: CPT: [id number] XR CHEST 1 V 91523 Fluoro Time: DAP (Gy m2): Air Kerma (mGy): Portable chest CLINICAL INDICATION: Fever COMPARISON: Examination of one day prior Location E5 Patient is status post median sternotomy and anterior cervical fusion. Minimal linear atel ectasis is demonstrated at the left lung base. Lungs are otherwise clear. Heart is normal insize. Bony structures are unremarkable. IMPRESSION: Minimal linear atelectasis at the left lung base, otherwise unchanged at 1559 Reported and signed by: Danielle David MD CC: Jac Leal MD PAGE 1 Signed Report Name: ALHAJI FARAH [place] : 1960 Age/S: 58 / M [address] Unit #: [id number] Loc: [place] [address] Phys: Jac Leal MD Acct: [id number] Dis Date: Status: ADM IN PHONE #: [phone] Exam Date: 11/02/2019 1556 FAX #: Reason: Fever EXAMS: CPT: [id number] XR CHEST 1 V 88951 Fluoro Time: DAP (Gy m2): Air Kerma (mGy): <Continued> Technologist: Sabine Cross RT(R)(CT) Trnscb Date/Time: 11/02/2019 (9778) [id number] Orig Print D/T: S: 11/02/2019 (8051) PAGE 2 Signed [id number] 04:22:00 Test Item Value Reference Range Interpretation Comments TROPONIN-I (test 0.033 NG/ML 0.000-0.045 N Negative: < /= 0.045 code = TROPI) Positive: >/= 0.046 Correlation wit h serial results, other cardiac markers, and cl inical findings is nec essary to determine the c linical significance of this result. Quantit ative results using d ifferent methodologies s hould not be compared to one another as nume rical results may roma yby method. Completed by Nursing: NOBASIC METABOLIC [id number] 04:19:00 Test Item Value Reference Range Interpretation Comments SODIUM (test code = NA) 140 mmol/L 134-147 N POTASSIUM (test code = 3.4 mmol/L 3.4-5.0 N K) CHLORIDE (test code = 107 mmol/L 100-108 N CL) CARBON DIOXIDE (test 27 mmol/L 21-32 N code = CO2) ANION GAP (test code = 6.0 GAP calc 4.0-15.0 N GAP) GLUCOSE (test code = 103 MG/DL 70-110 N GLU) BLOOD UREA NITROGEN 15 MG/DL 7-18 N (test code = BUN) GLOMERULAR FILTRATION >=60 max estimate >60 RATE (test code = GFR) estGFR CREATININE (test code = 1.1 MG/DL 0.8-1.3 N CREAT) CALCIUM (test code = CA) 8.1 MG/DL 8.5-10.1 L CBC W/AUTO [id number] 04:08:00 Test Item Value Reference Range Interpretation Comments WHITE BLOOD CELL (test code = 11.7 K/mm3 3.5-11.0 H WBC) RED BLOOD CELL (test code = RBC) 4.08 M/mm3 4.70-6.10 L HEMOGLOBIN (test code = HGB) 12.6 G/DL 12.3-15.9 N HEMATOCRIT (test code = HCT) 37.5 % 35.8-46.7 N MEAN CELL VOLUME (test code = 91.9 Fl 86.3-98.9 N MCV) MEAN CELL HGB (test code = MCH) 30.9 pg 28.9-34.4 N MEAN CELL HGB CONCETRATION (test 33.6 G/DL 32.1-34.5 N code = MCHC) RED CELL DISTRIBUTION WIDTH (test 13.8 SD 11.5-14.5 N code = RDW) PLATELET COUNT (test code = PLT) 235.0 K/mm3 150-450 N MEAN PLATELET VOLUME (test code = 10.90 fL 7.0-9.6 H MPV) NEUTROPHIL % (test code = NT%) 63.1 % 40-76 N LYMPHOCYTE % (test code = LY%) 22.8 % 20.5-51.1 N MONOCYTE % (test code = MO%) 10.2 % 1.7-9.3 H EOSINOPHIL % (test code = EO%) 3.6 % 0.0-6.0 N BASOPHIL % (test code = BA%) 0.3 % 0.0-2.0 N NEUTROPHIL # (test code = NT#) 7.34 K/mm3 1.8-7.6 N LYMPHOCYTE # (test code = LY#) 2.7 K/mm3 0.6-3.0 N MONOCYTE # (test code = MO#) 1.2 K/mm3 0.2-1.5 N EOSINOPHIL # (test code = EO#) 0.4 K/mm3 0.0-0.4 N BASOPHIL # (test code = BA#) 0.0 K/mm3 0.0-0.2 N MANUAL DIFF REQUIRED (test code = NO DIFF/SCN CRITERIA MDIFF) - CTA [id number] 22:57:00 Name: ALHAJI FARAH [facility] : 1960 Age/S: 58 / M [address] [facility] [address] [place] Unit #: [id number] Loc: [place] [address] Phys: Jac Leal MD Acct: [id number] Dis Date: Status: ADM IN PHONE #: [phone] Exam Date: 11/01/20192233 FAX #: Reason: Chest PAIN EXAMS: CPT: [id number] CTA CHEST Examination: CTA chest, PE protocol Indication: Chest [...] irregular, possibly nodular thickening of the esophagus, r ecommend further evaluation with endoscopy The heart is [...] 1 Signed Report (CONTINUED) Name: [facility]AR[facility] 1960 Age/S: 58 / M [address] [facility] Unit #: [id number] Loc: [place] [address] Phys: Jac Leal MD Acct: [id number] Dis Date: Status: ADM IN PHONE #: [phone] Exam Date: 11/01/20192233 FAX #: Reason: Chest PAIN EXAMS: CPT: [id number] CTA CHEST <Continued> No suspicious or destructive osseous lesions. Impression: Limited exam secondary to phase of contrast no evidence of acute pulmonary embolism proximal lobar pulmonary arteries. There is irregular, possibly nodular thi ckening of the esophagus, recommend further evaluation with endoscopy Additional findings as detailed above at 2257 Reported and signed by: Katy Dykes M.D. CC: Jac Leal MD Technologist:Curly Logan, RT(R)(CT); .. CTDI: DLP: Trnscb Date/Time: 11/01/2019 (5529) [email or web address] Orig Print D/T: S: 11/01/2019 (2566) PAGE 2 Signed ReportGLYCOSYLATED HEMOGLOBIN [id number] 17:41:00 Test Item Value Reference Range Interpretation Comments GLYCOSYLATED HEMOGLOBIN (HA1C) 6.3 % A1C 4.2-6.3 N (test code = GLYHGB) ESTIMATED AVERAGE GLUCOSE (test 134 MG/DLest code = EAG) COMPREHENSIVE METABOLIC [id number] 17:40:00 Test Item Value Reference Range Interpretation Comments SODIUM (test code = NA) 140 mmol/L 134-147 N POTASSIUM (test code = 3.3 mmol/L 3.4-5.0 L K) CHLORIDE (test code = 109 mmol/L 100-108 H CL) CARBON DIOXIDE (test 27 mmol/L 21-32 N code = CO2) ANION GAP (test code = 4.0 GAP calc 4.0-15.0 N GAP) GLUCOSE (test code = 139 MG/DL 70-110 H GLU) BLOOD UREA NITROGEN 13 MG/DL 7-18 N (test code = BUN) GLOMERULAR FILTRATION >=60 max estimate >60 RATE (test code = GFR) estGFR CREATININE (test code = 1.2 MG/DL 0.8-1.3 N CREAT) TOTAL PROTEIN (test code 7.5 G/DL 6.4-8.2 N = PROT) ALBUMIN (test code = 3.2 G/DL 3.4-5.0 L ALB) GLOBULIN (test code = 4.3 GM/dL GLOB) ALBUMIN/GLOBULIN RATIO 0.7 RATIO 1.2-2.2 L (test code = A/G) CALCIUM (test code = CA) 8.2 MG/DL 8.5-10.1 L BILIRUBIN TOTAL (test 0.40 MG/DL 0.2-1.2 N code = BILT) SGOT/AST (test code = 33 Unit/L 15-37 N AST) SGPT/ALT (test code = 25 Unit/L 12-78 N ALT) ALKALINE PHOSPHATASE 37 Unit/L 50-136 L TOTAL (test code = ALKP) LIPID PROFILE (CORONARY RISK)2019-11-01 17:40:00 Test Item Value Reference Range Interpretation Comments TRIGLYCERIDES (test code = TRIG) 178 MG/DL 0-150 H CHOLESTEROL (test code = CHOL) 153 MG/DL 133-200 N CHOLESTEROL/HDL RATIO (test code = 4.50 RATIO >0 CHOLHDL) HDL CHOLESTEROL (test code = HDL) 34 MG/DL 40-59 L NON-HDL CHOLESTEROL (test code = 119 mg/dL <130 NHDL) LIPOPROTEIN LDL (test code = LDL) 100 MG/DL 0-129 N LDL/HDL (test code = LDL/HDL) 2.94 Ratio 1.48-3.22 Avg N [id number] 17:40:00 Test Item Value Reference Range Interpretation Comments PHOSPHOROUS (test code = PHOS) 3.5 MG/DL 2.5-4.9 N RULE OUT NH [id number] 17:40:00 Test Item Value Reference Range Interpretation Comments CREATINE KINASE 102 Unit/L 26-192 N (CK) (test code = CK) TROPONIN-I (test 0.041 NG/ML 0.000-0.045 N Negative: < /= 0.045 code = TROPI) Positive: >/= 0.046 Correlation wit h serial results, other cardiac markers, and cl inical findings is nec essary to determine th e clinical signi ficance of this result. Quantitative re sults using different methodologies s hould not be compared to one another as nume rical results may roma yby method. [id number] 17:40:00 Test Item Value Reference Range Interpretation Comments MAGNESIUM (test code = MAG) 2.5 MG/DL 1.8-2.4 H TROPONIN I [id number] 15:24:00 Test Item Value Reference Range Interpretation Comments TROPONIN I RAPID 0.04 ng/mL 0.00-0.08 N - The use o f serial (test code = sampling and te sting TROPIRAP) protocol is a recommended pra ctice- An elevated tro ponin level alone is often not sufficient for diagnosis of my ocardial infarction. BASIC METABOLIC [id number] 13:39:00 Test Item Value Reference Range Interpretation Comments SODIUM (test code = NA) 142 mmol/L 134-147 N POTASSIUM (test code = 3.5 mmol/L 3.4-5.0 N K) CHLORIDE (test code = 111 mmol/L 100-108 H CL) CARBON DIOXIDE (test 25 mmol/L 21-32 N code = CO2) ANION GAP (test code = 6.0 GAP calc 4.0-15.0 N GAP) GLUCOSE (test code = 125 MG/DL 70-110 H GLU) BLOOD UREA NITROGEN 14 MG/DL 7-18 N (test code = BUN) GLOMERULAR FILTRATION >=60 max estimate >60 RATE (test code = GFR) estGFR CREATININE (test code = 1.1 MG/DL 0.8-1.3 N CREAT) CALCIUM (test code = CA) 8.7 MG/DL 8.5-10.1 N CREATINE KINASE (CK)2019-11-01 12:06:00 Test Item Value Reference Range Interpretation Comments CREATINE KINASE (CK) (test code = 133 Unit/L 26-192 N CK) TROPONIN I [id number] 11:56:00 Test Item Value Reference Range Interpretation Comments TROPONIN I RAPID 0.04 ng/mL 0.00-0.08 N - The use o f serial (test code = sampling and te sting TROPIRAP) protocol is a recommended pra ctice- An elevated tro ponin level alone is often not sufficient for diagnosis of my ocardial infarction. - XR CHEST 1 [id number] 11:53:00 Name: ALHAJI FARAH [facility] : 1960 Age/S: 58 / M [address] [place] Unit #: [id number] Loc: [place] [address] Phys: Darell Medrano MD Acct: [id number] Dis Date: Status: PRE ER PHONE #: [phone] Exam Date: 11/01/2019 1146 FAX #: Reason: chest pain EXAMS: CPT: [id number] XR CHEST 1 V 34343 Fluoro Time: DAP (Gy m2): Air Kerma [...] PAGE 1 Signed Report Name: [place]JI [place]AHland :1960 Age/S: 58 / M [address] [address] Unit #: [id number] Loc: [place] [address] Phys: Darell Medrano MD Acct: [id number] Dis Date: Status: PRE ER PHONE #: [phone] Exam Date: 11/01/2019 1146 FAX #: Reason: chest pain EXAMS: CPT: [id number] XR CHEST 1 V 82726 Fl uoro Time: DAP (Gy m2): Air Kerma (mGy): <Continued> Technologist:Nirmal Negron RT(R)(MR) Trnscb Date/Time: 11/01/2019 (6103) [email or web address] Orig Print D/T: S: 11/01/2019 (3146) PAGE 2 Signed ReportCBC W/O [id number] 11:50:00 Test Item Value Reference Range Interpretation Comments WHITE BLOOD CELL (test code = 11.3 K/mm3 3.5-11.0 H WBC) RED BLOOD CELL (test code = RBC) 4.92 M/mm3 4.70-6.10 N HEMOGLOBIN (test code = HGB) 14.9 G/DL 12.3-15.9 N HEMATOCRIT (test code = HCT) 44.8 % 35.8-46.7 N MEAN CELL VOLUME (test code = 91.1 Fl 86.3-98.9 N MCV) MEAN CELL HGB (test code = MCH) 30.3 pg 28.9-34.4 N MEAN CELL HGB CONCETRATION (test 33.3 G/DL 32.1-34.5 N code = MCHC) RED CELL DISTRIBUTION WIDTH (test 14.2 SD 11.5-14.5 N code = RDW) PLATELET COUNT (test code = PLT) 261.0 K/mm3 150-450 N MEAN PLATELET VOLUME (test code = 11.80 fL 7.0-9.6 H MPV) CHEMISTRY 8 [id number] 11:47:00 Test Item Value Reference Range Interpretation Comments ISTAT-SODIUM (test code = NAP) mmol/L 135-146 ISTAT-POTASSIUM (test code = KP) mmol/L 3.5-4.9 ISTAT-CHLORIDE (test code = CLP) mmol/L 98-109 ISTAT-CARBON DIOXIDE (test code = mmol/L 24-29 N ISTAT-CO2) ISTAT CALCIUM IONIZED (test code = mmol/L 1.12-1.32 ISTAT-MARCELO) ISTAT-GLUCOSE (test code = GLUP) mg/dL 70-105 N ISTAT-BUN (test code = BUNP) mg/dL 8-26 N BEDSIDE CREATININE (test code = mg/dL 0.6-1.3 N CREATBED) GLOMERULAR FILTRATION RATE POC (test 81 49-113 N code = GFRBED) CHEMISTRY 8 [id number] 11:47:00 Test Item Value Reference Range Interpretation Comments ISTAT-SODIUM (test code = NAP) 141 mmol/L 135-146 N ISTAT-POTASSIUM (test code = KP) 6.1 mmol/L 3.5-4.9 HH ISTAT-CHLORIDE (test code = CLP) 105 mmol/L 98-109 N ISTAT-CARBON DIOXIDE (test code = 29 mmol/L 24-29 N ISTAT-CO2) ISTAT CALCIUM IONIZED (test code 1.11 mmol/L 1.12-1.32 L = ISTAT-MARCELO) ISTAT-GLUCOSE (test code = GLUP) 103 mg/dL 70-105 N ISTAT-BUN (test code = BUNP) 20 mg/dL 8-26 N BEDSIDE CREATININE (test code = 1.0 mg/dL 0.6-1.3 N CREATBED) GLOMERULAR FILTRATION RATE POC 81 49-113 N (test code = GFRBED) Treadmill tolerance(Non-Nuclear Treadmill)2019-06-23 06:48:40Interface, External Ris In - 06/23/2019 6:48 AM CDTProtocol Name Regadenoson Time In Exercise Phase00:01:00 Max. Systolic BP 158 mmHgMax Diastolic BP 76 mmHgMax Heart Rate 93 BPMMax Predicted Heart Rate 160 BPMReason For Termination Predetermined end point Reason for Test Chest Pain,Evaluate for worsening CAD Target HR Formula (220 - Age)*100% Arrhythmias none Resting ECG Normal Sinus Rhythm,septalinfarct left ventricular hypertrophyrepolarization abnormalityST Changes No Significant Changes Overall Impression Indeterminate due to pharmacological stress Chest Pain CHEST PAIN 3/10 HR Response To Exercise BP Response To Exercise amiodarone,asa,atorvastatin,carvedilolConfirmed by fellow Lorrie Marsh ([id number]) on 06/12/2019 4:23:15 PMConfirmed by MD ROSIE, SILVER Dorsey ([id number]) on 06/23/2019 6:48:32 [id number] 10:31:00 Test Item Value Reference Range Interpretation Comments Case Report (test code Surgical Pathology = 104) Report Case: [id number] Authorizing Provider: Caleb Dawn Collected: 06/14/2019 1521 MD Carmen Ordering Location: [address] Received: 06/15/2019 0759 Service Pathologist: Misty Jackson MD Specimen: Ampulla, Ampulla Bx DIAGNOSIS (test code = [id number]) FuZzEwMzNcZnRuYmpcdWMx FAojkhMsUXvmj0ZeZ5RcZz AwMFxhbnNpXGRlZmxhbmcx KVTcRDV0hpFzEFPaMKjrQE BkUOynNc7ooXSolNseRpKa FSIlu6njfsZVhmtptIi4a5 hbDLYtLmE5oMHaYUipY0ih anAbuGXtKXTuSYf4nR17ZH OyhM4gbDFeTSivevPfIdE2 IFirZYJyFfF6VTVevNUwHC KiC2fzRFPlSIkyMHGbXNmb zXKrYLY0uGgmb2T6bCJhsG OssYfoHiQhUxYoFBITi8Ce ZZn1pWucY2IgBZDlCvO7rH QgUGFyYWdyYXBoIEZvbnQ7 aM35HFtffpD8qYKge2Sbb6 5lt912eQ2boPQkXJK0OJCg HVZssWKaKWMzDUL2ZDMhzA UkH5y1KfZwyRUcF2U1ScFn oZGkQ0Y4HvXqwQUhU1S7Oz WxsAWyPBLxiDJpZq8kmZBa jXMvtx8jvu91COO6b7ZrqX lbSVV3XIP5AuImXs5omXNo UBDhNO7oElCyqOUsJHGdqh 07nBzgWHjxgnRrvG9lSwQv MIFusICbRFBpJO3ssGOpKK WpeO5liqkvUFUpYxNotgba UYQdeBmhgdEiOh2yjNffXV B5JRqbI9jcfP5bOlO2VPtk Z1kvnQ1vZGy9RXymwQV0SN NayQ5eZC6tqggkq8ymWoJh SV6hhdwix2mlSwOrVF3kfx z5d6niCrSmWH9cwdflr7cn NzIwXGhlYWRlcnkwXGZvb3 SajllaPYEmy7DcL1FsvFmp K77rfGhoT65wZLXnzXnllV 8xqTvwuG9mTsBiEpFqXNjq bFxwbGFpblxmMVxmczIwXG ozfttlFTRjBSjrV2kfDqXr ATWelFjqJDhcd5AuGRQwEQ ZbRzZmIH4rMoOZVDCEIYXf IQMBVH8FO1s4CHYcmkGaLH EoY9QAFE2MMURuVU5ZYZOV VkVPTEFSIFRZUEUgTVVDT1 NBIFdJVEggTUlMRCBDSFJP JeyCYWnBKdsBIO1OUHwBAe vsPMByUX7vHG8FK5FHLMWT RZCGCxUIPAkIP93QDjXHDL gQHIYtM65GGMFAEKkhpFKb dDxrboRlOGnol6PwMPesWZ VfME2tpHheZSKaGP0xTFOm Z6dpqS3mcxc9WoPiSQKnWp B3MEGtogU5Yzu0OBUxSAgb x6iwn3UqUJUzLSo3sUzfXt JfDWQjs7hcusSeMeLaKDTu ORAoHOGqmSSgR900p5fsv0 tsznQkzAD1XRDiNGS2VOjf zcWdncO4KDiefYVyHyL4CX tccmVkMFxncmVlbjBcYmx1 NEDmS694RYI5rWmdn8xmBE B9AQHzCGMkPwAdWc9dkVQk P687DDRbFBZVRBAjnZf3EY IbzmNwegMmrRBEg116N965 e4glJZSmvbCuhErXyddwf1 xcS379ETQthBGiirApSqKh QQWqbHFobAF2HPFnSK8cvk qpLScwWNotPSZiabS3NSFu iXBpJ5AwBYQlVF4ltjujUG A7QJioUGDwMFW8MbHzAJMp n0Ukiyj9SoLlul5dsu89WD V8h9GxgCcoDSI7VCO2BnEu Qf4zvBPrUCGiLX8bLpRofZ NqLCXkio53fOnhSXqqYNT4 QRXodxEdp0Trw7kgYbBpfs FjI4zqS2NdKLDrONAuQXBv SsQiwcTom5Xot5VzwVEtzV m0n2wrGTBfVEIvoTsmz0ex ZBR6MAFamFPfC3tuaU1bJT HmDB1rvhdna4bxKCcfMEnu VIUglSJ1unO2XQWyzAWnW7 FhsG5yVEBbMDdxSXGawan8 XzBgVr4hcUEneIjbCRzfKp twYWdlXHBnbmNvbnRccGdu ZGVjXHBsYWluXHBsYWluXG YwXGZzMjRccWxcbGFuZzEw MzNcaGljaFxmMVxkYmNoXG KfMFyjY7lbLlCvCiPkPqv4 VTFgbKBxRRPwMiz6SEKgyW TaDAHWpXippR2tMKVrtNnd xY9duEL6XHLokwUddNJQdW 9tQZZPiT7aOiQ9SiIxYoL0 LTQyNDlccGFyfX0= COMMENT (test code = v6wyyRHgQTXirWHyShAeQS 3359) PxYYSxf8duOVDmyWSqNpTz MzNcZnRuYmpcdWMxXGRlZm Wdu2yml638aOUjn0qcXKRs LiC4fZSjRCXulTAeC645g4 wno8itqtCbxRC6EHFrJBH7 ROzoniSibmJ7MPmzdIAmUb X2DEaucfHqFIwslqFqprNq Gur4MMByH397SQQ0vPyoa2 eyWIY5NPOsAAKcHoOyIj0f vOXgY541HBJrAXVEZTVzjW h9SANctvHbteWalJKQm243 V398n3qaYCUoiaAqdBxBnq ivy1nxS295ZDDbtGXrkoMj IdPmAFIanSQdkYF4YVUoES 8wjrkxOkJhXT9ecnlhUcIx CQ8uhst6RoZoQS8cubzyFd LqQYjeXVNgihizMSTon0Hr lrulXK6iT5Ofx4J3aM7rnW PnERJuwTNhNvVcVSKoxz1v gOXuWHcyd4ItBYL1gsO6yB DbgJOrMDBvQZ99Shewe9Hh VqhgDAH1YGKaumYqk0Ktm9 nkElDpdmVpC5wwS3HoUXRw ZJJlNRHlXeNejpEut0Axg9 QnmLIzgJp6m8tnPLWtOONa hWcnj7lzOAL9HIVwD0O9gH Shj2wcXBbkXVSpfMD7qbzk XHatFJXhsdW3ppuiGBemJW JusGU8hrlrQWyrGJYmQuI7 qijeQNucEZAdBFC1WPbea1 46MQO6LBpbEkwkCOzfVDSr bmNvbnRccGduZGVjXHBsYW luXHBsYWluXGYwXGZzMjRc fWlmaCyerA6iRaGkLwIoTR wiJS9bDCHxP9zhxRDwJMOv AKNfZ0xoXbSilX2hjDmkKY vvuhNeFXAfNFTrkZ1qd5qx z7npp9OhQjDiA71nkjKhEJ 7kEOBtiHKjj4ZxJXDmRSAe n7Isu4cmkzU5pOVhQW15V9 1aFWA3wSUuOQ7nfYOfC3pq l14iTcIhgpBsJC8kXKIjt6 0uMM2tQDVlhCZihcopGIRb M8VwGY40y2MeSGZylrTjmB QtLEVwCV1cJL5yCYWiQunp xNUqJYNhCHveDHDvp4KaGp FogNbuMQG2EXykocvuBhIw dhOgVLBhRtBDdXHrGV1riL hfIRHxp8VhDCpqlUMsb2Jz ZU0wmLEqCPTqNFIlwRBpk0 VhPKgqatmjLm5aTJzoztCv t5SoPJJbWQMuQF1ekPHifP CxkQwmWLBtRG4mOY3vW8qf hwecFVebIF6cHENnPN0aA3 1dgDDlM67dhsIlVUNkm64d aXMgcmVxdWlyZWQuXHBhcn 0= CPT Code(s) (test code w5nkjMEpRHWbtVYhUvAySY = 3357) LlEBYli7hgKNZfzNEyXfOh MzNcZnRuYmpcdWMxXGRlZm Rwm8fdd820iBJyu9hsMQEt KiZ7aLQsEUJboZSeG740c9 kgf0ffafRnwSO4GHSeAMF7 ZKkhoiHptsZ1OLdvpKTyHr G9YIqsgsWwIRlguvSuchFp Uln8BOPdW692TMM9qUdfj7 sbPTW3ODMfIBTdQfObTb3y cMUoF783IAHdIBVKJUCzyZ p9DWMojdJvmdWicGJUb449 V034b7nmUFKjcqOxpEvQgp lrm8oaD856NRSyvJZjkfTz VkLzFXZvgAKsfFG3CIErCP 2tacvtUbEtJH2wfdtrQlCa FO9lnkw1EfQnYU5fepeeEi NjBPyeDDMvnbzlBGSsk3Xu sgeoMS9jR4Oiq2C8nO8niM EsXDQozPZeXlEqDFSerq4t iXUqRHjny7GhNEX1fmY0fG RswWPtWZAoQM01Vooks2Hs EeyrAIA7ESQqthGfj8Qmm2 sbViHxnnQyB5frI4BePZGc FKFlYUAwLbDcprUly3Dtt7 VsbXXfqAf2i3wcLERzZOIp uBdbz5itDFO7PKVnR3G4fN Usd2xyAVebBOJetVU1szyu ENbhOZZbrqK3xtmrLEzqWP QdbYF8toteUVxnCBQmQiU1 yvwrMMnjSLRvJXC5QFzjz1 60PFP7PSvnUxerUXcnITMh bmNvbnRccGduZGVjXHBsYW luXHBsYWluXGYwXGZzMjRc dUcnpKncaJ6sDlXkVePfEP svUX5iPZMkQ6dxzFYzMZMc BZAcA4vzIrVpsY4lbXulFE txbiGkXHc6UqT1HZLeiy0= CLINICAL HISTORY (test z1ntkLZaOWDxnTGdLwYjFB code = 3356) AyTTKan1tcAIDjhVSeKxTx MzNcZnRuYmpcdWMxXGRlZm Pox4uml288kWYdu8dqJDLm PwG5wMUdRZVpcKLaI227TQ TxPQpxs1urx5BmGZDedRFd p2Q8JLWBfdwziHb5kWnrL4 0am1X0GzvjJ0kwLUGbRPar YZSpXSilhIXeLAH8WQXbNM K8WMdrxgCrqdV6DZerlVMz BjO8EJw4x0bbwBrnJJChVI Y0h4edEWimvoViZJ3jwb6f fQo9u5fmcgZnVADjPGRhxM HUIIAsD3DbaJkuDp8vyTg2 gZtlYhtcUMS5Ddj0VV5egc 96osd4hBcrGHVwulmpSeS5 EOziCNWwnmlqOHk6LWphOW JnbDcyMFxtYXJncjcyMFxt YXJndDcyMFxtYXJnYjcyMF azKFZiOJH7LEgxv150DDZ1 SArmn4xkq9lkdOLmTet0ZK LrCzGpRffkJYugc3Kcm1on JVEqee1iMEZ6eBGroLymn3 R6tHYrJGXwsEHfkpQkLFVb PdT5OXmhJA9rkv16YOGmRH I3wu7wgWQsrUgmmvTlyUBj GVzoD9RfJTNzn210LESxB9 YdVNKyo9W7qsOxUpFzXPNc xBY8ulC9TWCpBPu1vZMmzo L9noSxbMCoK2dpnH92XvZw iNMiF4GsgP33EoHvwZLrB2 LunR30BcSnmITiK1CjuX45 DzGfnQMnJPQeuLGgZs0ikC YukHJcr7NdnXWiIRrgR79o t744OLHzxdOiF8cyjUTzbb xwbGFpblxmMFxmczIwXHFs XHBsYWluXGYwXGZzMjBccG cinC5cAtIxNuQcEJLJbmXq IV3pJOEuc8DlgLUxqTUfos 6kxDY5TLHxHJ2vT21mfDEg vNu8keFnu5KnKQK7fVLyTN WqHI7jKXXAPoCpcgZgrF3v j9thoEBtUAAATF3sjTPjGF OfXSUvyxVavO4ijY0dALLm TRgrc7ZmxyqeSQXnx46irp ZoONSfjJ8ydCXrnD== SPECIMEN SOURCE (test j4womHRwBQLaeGBxJyKuUA code = 3377) DtWBGhr7lxCTUuwWNaEsNg MzNcZnRuYmpcdWMxXGRlZm Tpr2olh402uOLru4wbPOPh RaT6tOGdFAKzvKKaL469v9 mef4ilkaCcxOS8GXIzVEZ4 LVxqiqNdkqV1KZqtpUJuOb S1HKsguoAhOUqxfzFhupTx Lgu2OHDtX231PEV0bCopq1 wvEKC4SZOuAXEkKyYfZj5k oQKuE576QUPzKDXMWQPgtA b5UQZyioUlntQgiWVUd702 C004z1coTMPszlOjxPcRrc bta9huJ539CTJfvCGjugYo WsRzJFJddNWxlGZ2SGSuCD 2tebywOsNeCQ5uumhtLfZu BE0mdyt8NaRrGX5zucirTr RzZJfcFTAcbsxhDMVes3Qp albmAV2uH2Cbs7Y3eM8pqN PsPGNosTCkIsVrHLZnqv5z aCBiJVuti8VrUOR2bqR6tR MzzCSwZSTwEH41Dgghp3Eq JjwoQVH6YINjzzJxz1Tux0 ksMoNbmlVyN2bhO0MrKHOn WICrKSIiPwYrblJli7Ddb9 InzJEfjMj6u8lrPAEyXXJe kDhrc2ulOIT5WEVvS2F5jS Wus9onIMvcJDKmaSI0kmrm LRioJQZqnsQ7mnnvZBwyME PdqUN2pjeeXAwkVNXfTsW2 ydrkJItqUWIjWYR7RQfwx4 10HLK2VVtoGxipCZedDAVv bmNvbnRccGduZGVjXHBsYW luXHBsYWluXGYwXGZzMjRc wInwlOrstY8lPkQmYwZvTR jgWT3mOFGvJ9tnsBAbAAKj EAYbX5ydIfTomI0fpMzsOO xmczIwIEFtcHVsbGEsIGFt cHVsbGEgQnggXHBhcn0= GROSS DESCRIPTION (test s3mryEGzPHZfoGDkLhWrOT code = 3366) RsUKNjg2wmIDLbbIGlMjWt MzNcZnRuYmpcdWMxXGRlZm Gpf0ckr011dYRrn6pkZDCu MuC4aEYgSZDczXZaO546YL FdZVjvs7wai2AcZOSruQQy i5V5FPAPmwbmgWf6kEpfV4 7aq7R2AxnmX7nmCTPmDAtp TPTkBFjgfGRnFKQ3JRJtGV L0QDtruqOykyI3XZapaTGa HxY0GOl7r8fjtFgxXSFjZS N1e2mkTBegxhGpGP3cap8u dBj8c6xqgjYlFMGxRVYmzT RRSZOjA8RkjLpcAw8clEs0 bLdnZocqLNX0Sxm0CC5eha 60xbx5qNjeYIOmqrfaQdI2 EHrwJOWnupmoZRb7BSrwXC JnbDcyMFxtYXJncjcyMFxt YXJndDcyMFxtYXJnYjcyMF ikVCAqKBX1HJjcs463RAM4 YUiot0bpq4tggDEwHhy8KM CuRwUeCkumKUcmi8Tcj2mh BEJgzz3cMQL9rNNpzMbno6 R3xRGsSVXkpCFfanAsRLXq QkY1DXooVG3czy32PFFaCP T1zt0buRRecUlhqiJxuHPq ZRaxP9MtEOGyu466JJCkQ2 FgOOLrw6Q3fxYaJwOuSXEi pNB9pdU9SDBhCKk6sUIaec Y4tqFlkBRmG1dhnQ18ReOe qZHeI6YsaF94FqRutATsQ8 CjfI76UjSayXLeR0GxfG59 ZcHkwXUiTTEwsZQfEk7ogM NmbSQso0OljHNyWEkwF32l g470FHOamsXfR4iszJVynr xwbGFpblxmMFxmczIwXHFs XHBsYWluXGYwXGZzMjBccG kdgH4wWaZqXeSgNBFcHZLr YWluXGYxXGZzMjAgUmVjZW v5URCzwV8hJh5xgVBvnQ7e uFXjJNcxREU6gDOdRSInEO WcYWPyRK16H4YhyoCdDYvh MZKqZFGizL2yHY11jYDpum GtjeYifJzpcR2aDgZwAfIz MCAgImFtcHVsbGEiIGlzIG PgPM7iZIpaMM9xYZbsLW4k KZAyTVNjILOvQP5aEPHnki 4spj65zhjqMSRmWStiMRJt XOThOxSkvMWcGQy0gMXyLY BsYWluXGYwXGZzMjAgLCBt qBOok8SaPGCpehVfZSOayX mwk6RgHoVegWrbwV6zTiHt HcXhNQKAzRAdb8LiF0cgYF 7iy1LyjYd3lWSqTUaaCWMr fY3jBz7buJ06qV1zVFRnpC CtFNPhc38udM5hF5Kba7R2 zDSpmHaudI1rWnJkRoTuVV ArWTHiKUKHFo5imGxqMUM7 MICROSCOPIC DESCRIPTION e1xhgEElBOZvyDPzEzMhBV (test code = 3371) LbUZCwm1nkJYVxmAXgSqJt MzNcZnRuYmpcdWMxXGRlZm Cxc5oql779tRGkr7ruCWAw PbA6wPDsUAKxqOOvS726VB ImTQesy5tdj1YzQMKsnHKt h9W6CFJMbblzmAo4cPcdO4 4wn5E0XfqiX7keDUIbJUqi DLVxCTwkmRPdKYN8WASbCQ K1WKyniaXivrY8CYvyzTDj JnE9AMl7f8ntyAbiNYFlRD F2x7krOAwrgkCyOX3mtx9w aIm1s1mwssBqZBThTEFfjW OBLJBrJ7SojPzsSc3rtUp1 kZjvEgumFJC2Ylv9KK2skm 79bxh0nLtqNBHdhhgkLjW8 FHwsNNXixoktOMk7FGwdOP JnbDcyMFxtYXJncjcyMFxt YXJndDcyMFxtYXJnYjcyMF yrANGtIPV8JMwqh270KER5 YNjoo2abl7ulfPXhRud0GL TrRxXpDzkhXWpym5Lra3vi PICssz5bOAP2rUSoyQtfo7 F3oAHxUFSbsLRszbQqCOSt lo16eJEpoIWjaVAmay4shu DmmUSojBNvRDL4vKHxdzAr DNEujBWgOHCzNB9lzSAjAE NclK4cwdhkLTIsKjXyftxj KIUwpCgskfLkAj8ztCkxWB G4XYvnP4bavD0kZuY2AZgg N7fcqE3bYRq0VIgawDR2XK InvY3xUR5gbcdny8unYlQy TC0mvbtrt7fmRzEjDM9uys s3p0clGtMyVZ0xbrbfz4er NzIwXGhlYWRlcnkwXGZvb3 AgfkjdPXFvl7BbO2BodZee O20esVxwP30iCOOvoRykdZ 8vdQpfnT9jFuLrMhEvWVcb bFxwbGFpblxmMFxmczIwXH BsYWluXGYxXGZzMjAgUGVy Bb7wyMAiUahuLHNxlMFmkM == [facility] [id number] 10:31:00Surgical Pathology Report Case: [id number] Authorizing Provider: Caleb Dawn Collected: 06/14/2019 Bhavna Morales MD OrderingLocation: [address] Received: 06/15/2019 0759 Service Pathologist: Misty Jackson MD Specimen: Ampulla, Ampulla Bx A. "AMPULLA", BIOPSY: - SQUAMOUS AND FOVEOLAR TYPE MUCOSA WITH MILD CHRONIC INFLAMMATION - NEGATIVE FOR MALIGNANCY (SEECOMMENT) Signing Pathologist Direct Phone Line: [phone] signed by Francisca Jackson MD on 06/19/2019 at 10:31 AMThe biopsy shows fragments of squamous and foveolar type mucosa with mild chronic inflammation and cautery. Focal muscle is also seen. No definite small bowel/ biliary lining is seen. The ampulla normally does not have squamous lining. This could be a metaplastic change. Clinical and endoscopic correlation is required.[id number] and postop diagnosis: endoscopic ultrasound with endo, EUS and possible ERCP.Pre and postop diagnosis: abdominal painAmpulla, ampulla Bx .Received in formalin labeled with the patient's name, accession number and "ampulla" is a 0.3 x 0.3 x 0.2 cm piece of meehan-brown, irregular, mucosal-covered tissue. The specimen submitted in toto following filtration in cassette A1. SS/plPerformed.FL, [id number] 12:50:00 Reason for exam:->Abdominal PainFINAL REPORT A fluoroscopic unit was utilized for a procedure performed in the operating room. No interpretation was requested. Please refer to the operative report regarding findings. Please refer to PACS for patient radiation dose information. Signed: Diana Nicholas Verified Date/Time: 06/16/2019 12:50:49 Reading Location: [facility] Radiology Reading Room [place] [id number] 12:50:00 Interface, External Ris In - 06/16/2019 12:52 PM CDTFINAL REPORT A fluoroscopic unit was utilized for a procedure performed in the operating room. No interpretation was requested. Please refer to the operative report regarding findings. Please refer to PACS for patient radiationdose information. Signed: Diana Nicholas Verified Date/Time: 06/16/2019 12:50:49 Reading Location: [facility] Radiology Reading [facility]ipuncture)2019-06-16 12:01:00 Test Item Value Reference Range Interpretation Comments Result (test code = No growth in 5 days 6463-4) [facility] [id number] 12:01:00 Test Item Value Reference Range Interpretation Comments CULTURE (BEAKER) (test No growth in 5 days code = 1095) BLOOD [id number] 12:01:00 Test Item Value Reference Range Interpretation Comments CULTURE (BEAKER) (test No growth in 5 days code = 1095) Comprehensive metabolic [id number] 07:08:00 Test Item Value Reference Range Interpretation Comments Protein, Total (test 7.0 6.0- 8.3 gm/dL code = 2885-2) Albumin (test code = 3.4 g/dL 3.5-5 L 60170-2) Alkaline Phosphatase 87 U/L 40-150 (test code = 6768-6) Total Bilirubin (test 0.6 mg/dL 0.2-1.2 code = 1975-2) Sodium (test code = 134 meq/L 136-145 L 2951-2) Potassium (test code = 4.5 meq/L 3.5-5.1 2823-3) Chloride (test code = 103 meq/L 98-107 2074-0) CO2 (test code = 26 meq/L 22-29 2027-9) BUN (test code = 19 mg/dL 7-21 3094-0) Creatinine (test code = 0.80 mg/dL 0.57-1.25 2160-0) Glucose (test code = 112 mg/dL 70-105 H 2345-7) Calcium (test code = 8.9 mg/dL 8.4-10.2 89602-6) AST (test code = 106 U/L 5-34 H 1920-8) ALT (test code = 73 U/L 6-55 H 1742-6) EGFR (test code = 99 mL/min/1.73 [place] [address]-9) NOT ACCURATE CREATININE CLEARANCE IN PREDICTING GLOMERULAR FILTRATION RATE . ESTIMATED GFR I S NOT APPLICABLE FOR DIALYSIS PATIEN TS. Lab Interpretation Abnormal (test code = 56647-1) [facility] [id number] 07:08:00 Test Item Value Reference Range Interpretation Comments TOTAL PROTEIN 7.0 gm/dL 6.0-8.3 (BEAKER) (test code = 770) ALBUMIN (BEAKER) 3.4 g/dL 3.5-5.0 L (test code = 1145) ALKALINE PHOSPHATASE 87 U/L 40-150 (BEAKER) (test code = 346) BILIRUBIN TOTAL 0.6 mg/dL 0.2-1.2 (BEAKER) (test code = 377) SODIUM (BEAKER) (test 134 meq/L 136-145 L code = 381) POTASSIUM (BEAKER) 4.5 meq/L 3.5-5.1 (test code = 379) CHLORIDE (BEAKER) 103 meq/L 98-107 (test code = 382) CO2 (BEAKER) (test 26 meq/L - code = 355) BLOOD UREA NITROGEN 19 mg/dL 7-21 (BEAKER) (test code = 354) CREATININE (BEAKER) 0.80 mg/dL 0.57-1.25 (test code = 358) GLUCOSE RANDOM 112 mg/dL 70-105 H (BEAKER) (test code = 652) CALCIUM (BEAKER) 8.9 mg/dL 8.4-10.2 (test code = 697) AST (SGOT) (BEAKER) 106 U/L 5-34 H (test code = 353) ALT (SGPT) (BEAKER) 73 U/L 6-55 H (test code = 347) EGFR (BEAKER) (test 99 mL/min/1.73 ESTIMA JUAREZ GFR IS code = 1092) sq m NOT ACCURATE CREATININE CLEARANCE IN PREDICTING GLOMERULAR FILTRATION RATE . ESTIMATED GFR I S NOT APPLICABLE FOR DIALYSIS PATIEN TS. BLOOD [id number] 02:00:00 Test Item Value Reference Range Interpretation Comments CULTURE (BEAKER) (test No growth in 5 days code = 1095) BLOOD [id number] 02:00:00 Test Item Value Reference Range Interpretation Comments CULTURE (BEAKER) (test No growth in 5 days code = 1095) BLOOD [id number] 02:00:00 Test Item Value Reference Range Interpretation Comments CULTURE (BEAKER) (test No growth in 5 days code = 1095) COMPREHENSIVE METABOLIC [id number] 04:49:00 Test Item Value Reference Range Interpretation Comments TOTAL PROTEIN 6.5 gm/dL 6.0-8.3 Specimen sligh tly (BEAKER) (test code = hemoly zed 770) ALBUMIN (BEAKER) 3.2 g/dL 3.5-5.0 L Specimen sl ightly (test code = 1145) hemolyzed ALKALINE PHOSPHATASE 33 U/L 40-150 L (BEAKER) (test code = 346) BILIRUBIN TOTAL 0.3 mg/dL 0.2-1.2 Specimen sli ghtly (BEAKER) (test code = hemoly zed 377) SODIUM (BEAKER) (test 134 meq/L 136-145 L code = 381) POTASSIUM (BEAKER) 4.3 meq/L 3.5-5.1 Specimen slightly (test code = 379) hemolyzed CHLORIDE (BEAKER) 106 meq/L 98-107 (test code = 382) CO2 (BEAKER) (test 22 meq/L 22-29 code = 355) BLOOD UREA NITROGEN 21 mg/dL 7-21 (BEAKER) (test code = 354) CREATININE (BEAKER) 0.76 mg/dL 0.57-1.25 Specimen slightly (test code = 358) hemolyzed GLUCOSE RANDOM 105 mg/dL 70-105 (BEAKER) (test code = 652) CALCIUM (BEAKER) 8.5 mg/dL 8.4-10.2 (test code = 697) AST (SGOT) (BEAKER) 55 U/L 5-34 H Specimen slightly (test code = 353) hemolyzed ALT (SGPT) (BEAKER) 44 U/L 6-55 Specimen slightly (test code = 347) hemolyzed EGFR (BEAKER) (test 105 ESTIMATE D GFR IS code = 1092) mL/min/1.73 sq NOT ACCURA TE m CREATININE CLEARANCE IN PREDICTING GLOMERULAR FILTRATION RATE . ESTIMATED GFR I S NOT APPLICABLE FOR DIALYSIS PATIEN TS. CBC (Hemogram only)2019-06-14 04:38:00 Test Item Value Reference Range Interpretation Comments WBC (test code = 6690-2) 8.7 3.5- 10.5 K/L RBC (test code = 789-8) 4.05 4.63- 6.08 M/L L MCHC (test code = 786-4) 32.8 32.3- 36.5 GM/DL L Hematocrit (test code = 38.1 % 40.1-51 L 4544-3) MCV (test code = 787-2) 94.1 fL 79-92.2 H MCH (test code = 785-6) 30.9 pg 25.7-32.2 RDW (test code = 788-0) 13.3 % 11.6-14.4 Platelets (test code = 198 150- 450 K/CU MM 777-3) MPV (test code = 93875-2) 11.4 fL 9.4-12.4 MP V-Approximately 20% positive bi as due to method change. nRBC (test code = 413) 0 0- 0 /100 WBC Lab Interpretation (test Abnormal code = 10992-8) [facility]2019-06-14 04:38:00 Test Item Value Reference Range Interpretation Comments WHITE BLOOD CELL COUNT 8.7 K/ L 3.5-10.5 (BEAKER) (test code = 775) RED BLOOD CELL COUNT 4.05 M/ L 4.63-6.08 L (BEAKER) (test code = 761) HEMOGLOBIN (BEAKER) 12.5 GM/DL 13.7-17.5 L (test code = 410) HEMATOCRIT (BEAKER) 38.1 % 40.1-51.0 L (test code = 411) MEAN CORPUSCULAR VOLUME 94.1 fL 79.0-92.2 H (BEAKER) (test code = 753) MEAN CORPUSCULAR 30.9 pg 25.7-32.2 HEMOGLOBIN (BEAKER) (test code = 751) MEAN CORPUSCULAR 32.8 GM/DL 32.3-36.5 HEMOGLOBIN CONC (BEAKER) (test code = 752) RED CELL DISTRIBUTION 13.3 % 11.6-14.4 WIDTH (BEAKER) (test code = 412) PLATELET COUNT (BEAKER) 198 K/CU MM 150-450 (test code = 756) MEAN PLATELET VOLUME 11.4 fL 9.4-12.4 MPV-Philippe roximately (BEAKER) (test code = 20% po sitive bias 754) due to method change. NUCLEATED RED BLOOD 0 /100 WBC 0-0 CELLS (BEAKER) (test code = 413) POC ACTIVATED CLOTTING [id number] 16:17:00 Test Item Value Reference Range Interpretation Comments Activated Clotting Time 125 sec TEST ED AT [place] [address] (test code = 441) ROSENDA ALVARE[place] [address] [id number] 16:17:00 Test Item Value Reference Range Interpretation Comments ACTIVATED CLOTTING TIME 125 sec TEST ED AT [place] [address] (BEAKER) (test code = WHITNEY Paez [place] [address]) [address] ECG 12 [id number] 06:36:37Interface, External Ris In - 06/13/2019 6:36 AM CDTVentricular Rate 77 BPMAtrial Rate 77 BPMP-R Interval 154 msQRS Duration 112 msQ-T Interval 500 msQTC Calculation(Bazett) 565 msP [place] 77 degreesR [place] 73 degreesT [place] 83 degreesNormal sinus rhythmIncomplete right bundle branch blockLeft ventricularhypertrophy with repolarization abnormalityCannot rule out Septal infarct , age undeterminedProlonged QTAbnormal ECGConfirmed by MD ROSIE, SILVER Dorsey ([id number]) on 06/13/2019 6:36:31 [facility] CenterType and screen, automated ([facility])2019-06-13 06:00:00 Test Item Value Reference Range Interpretation Comments ABO/RH AUTOMATED (BEAKER) (test B POSITIVE code = 2260) Ab Scrn (test code = 890-4) NEGATIVE [facility] PERFUSION MULTIPLE STUDIES, REST AND [id number] 16:40:00Reason for exam:->chest pain, evaluate for worsening CAD, s/p CABGFINAL REPORT PROCEDURE: MYOCARDIAL PERFUSION PET IMAGING (Rest/Stress)CPT CODE: 91063 INDICATION: Evaluate acute chest pain/discomfort CARDIOVASCULAR PROFILE:CAD [...] images were obtained. Then, 40.1 mCi of Rb-82 chloride was injected intravenously at peakstress, and gated PET images were obtained. Image quality is good. REST FINDINGS:HR: 78/minBP: 159/76 mmHgPrelim. 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 STRESS FINDINGS:HR: 93/min (58% of MPHR)BP: 158/76 mmHgPrelim. EKG: No si gnificant changes.Symptoms: Chest pain (5/10), headache (treated with [...] is no prior study for comparison. Signed: Aubrey Saenz MDReport Verified Date/Time: 06/12/2019 16:40:23 Reading Location: [address] [facility] Reading Room NM myocardial perfusion PET (rest and stress)2019-06-12 16:40:00Interface, External Ris In - 06/12/2019 4:42 PM CDTFINAL REPORT PROCEDURE: MYOCARDIAL PERFUSION PET IMAGING (Rest/Stress)CPT CODE: 01225 INDICATION: Evaluate acute chest pain/discomfort CARDIOVASCULAR PROFILE:CAD History: Known CAD, history of ACBSymptoms: Chest painRisk Factors: Hypertension, tobacco useBMI: 22.1Medications: Aspirin, atorvastatin, carvedilol, amiodarone STRESS PROTOCOL:Pharmacologic stress was achieved with a 10-second intravenous infusion of regadenoson 0.4mg. The radiopharmaceutical was administered 30 seconds after the start of the regadenoson infusion.IMAGING PROTOCOL:Limited low-dose CT imaging was performed for attenuation correction. 40.0 mCi of Rb-82 chloride was injected intravenously at rest, and gated PET images were obtained. Then, 40.1 mCi of Rb-82 chloride was injected intravenously at peak stress, and gated PET images were obtained. Image [...] changed from rest. IMPRESSION:1. Abnormal study.2. Abnormal myoca rdial perfusion. There is a medium size, moderate severity, reversible perfusion abnormality in the apical anterior and mid anterior segments of the LV. There is also a small size, marked severity, fixed perfusion abnormality in the apex.3. Normal resting LVEF, which decreases with pharmacologic stress.4. Normal extracardiac tracer distribution.5. There is no prior study for comparison. Signed: Aubrey Saenz MDReport Verified Date/Time: 06/12/2019 16:40:23 Reading Location: [address] Reading Room [facility] Troponin [id number] 02:08:00 Test Item Value Reference Range Interpretation Comments Troponin I (test code = 0.05 ng/mL 0-0.03 H 90245-7) JENNIFER (test code = JENNIFER) Troponin I (TnI) levels must be interpreted [...] acidosis, acute neurological disease, and persistent tachyarrhythmia. Lab Interpretation (test Abnormal code = 76026-1) [facility] [id number] 02:08:00 Test Item Value Reference Range Interpretation Comments TROPONIN I (BEAKER) (test code = 0.05 ng/mL 0.00-0.03 H 397) Troponin I (TnI) levels must be interpreted [...] failure, acidosis, acute neurological disease, and persistent tachyarrhythmia.Basic metabolic [id number] 02:02:00 Test Item Value Reference Range Interpretation Comments Sodium (test code = 135 meq/L 136-145 L 2951-2) Potassium (test code = 3.7 meq/L 3.5-5.1 2823-3) Chloride (test code = 105 meq/L 98-107 2075-0) CO2 (test code = 24 meq/L 22-29 2028-9) BUN (test code = 14 mg/dL 7-21 3094-0) Creatinine (test code = 0.78 mg/dL 0.57-1.25 2160-0) Glucose (test code = 144 mg/dL 70-105 H 2345-7) Calcium (test code = 8.3 mg/dL 8.4-10.2 L 00458-4) EGFR (test code = 102 mL/min/1.73 [place] [address]-9) NOT ACCURATE CREATININE CLEARANCE IN PREDICTING GLOMERULAR FILTRATION RATE . ESTIMATED GFR I S NOT APPLICABLE FOR DIALYSIS PATIEN TS. Lab Interpretation Abnormal (test code = 94962-2) [facility] HospitalHepatic function [id number] 02:02:00 Test Item Value Reference Range Interpretation Comments Protein, Total (test code = 2885-2) 6.6 6.0- 8.3 gm/dL Albumin (test code = 45702-8) 3.3 g/dL 3.5-5 L Total Bilirubin (test code = 0.5 mg/dL 0.2-1.2 1974-2) Bilirubin, Direct (test code = 0.4 mg/dL 0.1-0.5 1967-7) Alkaline Phosphatase (test code = 39 U/L 40-150 L 6768-6) AST (test code = 1920-8) 22 U/L 5-34 ALT (test code = 1742-6) 26 U/L 6-55 Lab Interpretation (test code = Abnormal 68956-6) [facility] HospitalHEPATIC FUNCTION [id number] 02:02:00 Test Item Value Reference Range Interpretation Comments TOTAL PROTEIN (BEAKER) (test code = 6.6 gm/dL 6.0-8.3 770) ALBUMIN (BEAKER) (test code = 1145) 3.3 g/dL 3.5-5.0 L BILIRUBIN TOTAL (BEAKER) (test code 0.5 mg/dL 0.2-1.2 = 377) BILIRUBIN DIRECT (BEAKER) (test 0.4 mg/dL 0.1-0.5 code = 706) ALKALINE PHOSPHATASE (BEAKER) (test 39 U/L 40-150 L code = 346) AST (SGOT) (BEAKER) (test code = 22 U/L 5-34 353) ALT (SGPT) (BEAKER) (test code = 26 U/L 6-55 347) BASIC METABOLIC [id number] 02:02:00 Test Item Value Reference Range Interpretation Comments SODIUM (BEAKER) 135 meq/L 136-145 L (test code = 381) POTASSIUM (BEAKER) 3.7 meq/L 3.5-5.1 (test code = 379) CHLORIDE (BEAKER) 105 meq/L 98-107 (test code = 382) CO2 (BEAKER) (test 24 meq/L 22-29 code = 355) BLOOD UREA NITROGEN 14 mg/dL 7-21 (BEAKER) (test code = 354) CREATININE (BEAKER) 0.78 mg/dL 0.57-1.25 (test code = 358) GLUCOSE RANDOM 144 mg/dL 70-105 H (BEAKER) (test code = 652) CALCIUM (BEAKER) 8.3 mg/dL 8.4-10.2 L (test code = 697) EGFR (BEAKER) (test 102 mL/min/1.73 ESTIM ATED GFR IS code = 1092) sq m NOT ACCURATE CREATININE CLEARANCE IN PREDICTING GLOMERULAR FILTRATION RATE . ESTIMATED GFR I S NOT APPLICABLE FOR DIALYSIS PATIEN TS. Vancomycin level, [id number] 01:59:00 Test Item Value Reference Range Interpretation Comments Vancomycin Tr (test code 11.6 ug/mL 10-20 = 4092-3) JENNIFER (test code = JENNIFER) Please HOLD the dose until the trough comes back. If >20 mcg/ml, DO NOT administer the dose and contact the pharmacist. Lab Interpretation (test Normal code = 85094-6) [facility] HospitalVANCOMYCIN LEVEL, [id number] 01:59:00 Test Item Value Reference Range Interpretation Comments VANCOMYCIN TROUGH (BEAKER) (test 11.6 ug/mL 10.0-20.0 code = 522) Please HOLD the dose until the trough comes back. If >20 mcg/ml, DO NOT administer the dose and contact the pharmacist.CBC (HEMOGRAM ONLY)2019-06-12 01:32:00 Test Item Value Reference Range Interpretation Comments WHITE BLOOD CELL COUNT (BEAKER) 10.9 K/ L 3.5-10.5 H (test code = 775) RED BLOOD CELL COUNT (BEAKER) 4.24 M/ L 4.63-6.08 L (test code = 761) HEMOGLOBIN (BEAKER) (test code = 13.3 GM/DL 13.7-17.5 L 410) HEMATOCRIT (BEAKER) (test code = 39.2 % 40.1-51.0 L 411) MEAN CORPUSCULAR VOLUME (BEAKER) 92.5 fL 79.0-92.2 H (test code = 753) MEAN CORPUSCULAR HEMOGLOBIN 31.4 pg 25.7-32.2 (BEAKER) (test code = 751) MEAN CORPUSCULAR HEMOGLOBIN CONC 33.9 GM/DL 32.3-36.5 (BEAKER) (test code = 752) RED CELL DISTRIBUTION WIDTH 13.2 % 11.6-14.4 (BEAKER) (test code = 412) PLATELET COUNT (BEAKER) (test 152 K/CU MM 150-450 code = 756) MEAN PLATELET VOLUME (BEAKER) 11.9 fL 9.4-12.4 (test code = 754) NUCLEATED RED BLOOD CELLS 0 /100 WBC 0-0 (BEAKER) (test code = 413) Urine [id number] 12:05:00 Test Item Value Reference Range Interpretation Comments Result (test code = 6463-4) No growth [facility]00 Test Item Value Reference Range Interpretation Comments Procalcitonin (test code = 0.30 ng/mL <0.05 H 03164-3) JENNIFER (test code = JENNIFER) SEPSIS RISK (ng/mL)Low: 0.05-0.50Intermedi ate: 0.51-2.00High: >=2.01 Lab Interpretation (test Abnormal code = 50691-5) [facility] 07:20:00 Test Item Value Reference Range Interpretation Comments PROCALCITONIN (BEAKER) (test code 0.30 ng/mL <0.05 H = 3036) SEPSIS RISK (ng/mL)Low: 0.05-0.50Intermediate: 0.51-2.00High: >=2.01BASIC METABOLIC [id number] 07:16:00 Test Item Value Reference Range Interpretation Comments SODIUM (BEAKER) 134 meq/L 136-145 L (test code = 381) POTASSIUM (BEAKER) 3.9 meq/L 3.5-5.1 Specimen slightly (test code = 379) hemolyzed CHLORIDE (BEAKER) 104 meq/L 98-107 (test code = 382) CO2 (BEAKER) (test 22 meq/L 22-29 code = 355) BLOOD UREA NITROGEN 14 mg/dL 7-21 (BEAKER) (test code = 354) CREATININE (BEAKER) 0.77 mg/dL 0.57-1.25 Specimen slightly (test code = 358) hemolyzed GLUCOSE RANDOM 107 mg/dL 70-105 H (BEAKER) (test code = 652) CALCIUM (BEAKER) 8.5 mg/dL 8.4-10.2 (test code = 697) EGFR (BEAKER) (test 103 mL/min/1.73 ESTIM ATED GFR IS code = 1092) sq m NOT ACCURATE CREATININE CLEARANCE IN PREDICTING GLOMERULAR FILTRATION RATE . ESTIMATED GFR I S NOT APPLICABLE FOR DIALYSIS PATIEN TS. HEPATIC FUNCTION [id number] 07:16:00 Test Item Value Reference Range Interpretation Comments TOTAL PROTEIN (BEAKER) 6.7 gm/dL 6.0-8.3 Speci men slightly (test code = 770) hemolyzed ALBUMIN (BEAKER) (test 3.3 g/dL 3.5-5.0 L Speci men slightly code = 1145) hemolyzed BILIRUBIN TOTAL 0.8 mg/dL 0.2-1.2 Specimen sli ghtly (BEAKER) (test code = hemoly zed 377) BILIRUBIN DIRECT 0.4 mg/dL 0.1-0.5 Specimen sl ightly (BEAKER) (test code = hemoly zed 706) ALKALINE PHOSPHATASE 34 U/L 40-150 L (BEAKER) (test code = 346) AST (SGOT) (BEAKER) 28 U/L 5-34 Specimen slightly (test code = 353) hemolyzed ALT (SGPT) (BEAKER) 31 U/L 6-55 Specimen slightly (test code = 347) hemolyzed CBC (HEMOGRAM ONLY)2019-06-11 06:25:00 Test Item Value Reference Range Interpretation Comments WHITE BLOOD CELL COUNT (BEAKER) 14.5 K/ L 3.5-10.5 H (test code = 775) RED BLOOD CELL COUNT (BEAKER) 4.28 M/ L 4.63-6.08 L (test code = 761) HEMOGLOBIN (BEAKER) (test code = 13.2 GM/DL 13.7-17.5 L 410) HEMATOCRIT (BEAKER) (test code = 41.1 % 40.1-51.0 411) MEAN CORPUSCULAR VOLUME (BEAKER) 96.0 fL 79.0-92.2 H (test code = 753) MEAN CORPUSCULAR HEMOGLOBIN 30.8 pg 25.7-32.2 (BEAKER) (test code = 751) MEAN CORPUSCULAR HEMOGLOBIN CONC 32.1 GM/DL 32.3-36.5 L (BEAKER) (test code = 752) RED CELL DISTRIBUTION WIDTH 13.5 % 11.6-14.4 (BEAKER) (test code = 412) PLATELET COUNT (BEAKER) (test 182 K/CU MM 150-450 code = 756) MEAN PLATELET VOLUME (BEAKER) 12.3 fL 9.4-12.4 (test code = 754) NUCLEATED RED BLOOD CELLS 0 /100 WBC 0-0 (BEAKER) (test code = 413) 2D Echo W/Doppler(CW/PW/Color)2019-06-10 16:42:00Ejection FractionSLEH ECHO HEARTLAB MKCKESSON CPACSInterface, External Ris In - 06/10/2019 4:42 PM C DTTransthoracic Echocardiography Report (TTE) Demographics Patient Name ALHAJI FARAH Date of Study 06/10/2019 [place] Gender MaleVisit Number [id number] Race Unknown Room Number 2138 Number Date of 1960 Referring Physician Carolina Bansal MD Age 58 year(s) [employer]ile [employer] Tristan Goodwinceli 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 Normal LV size and function. LVEF is 55-60%. Mild septal hypertrophy noted. 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 2. Diastology: Grade 2 diastolic dysfunction 3.Normal RV size and function 4. No significant valvular heart disease 5. Unable to estimate PASP 6. No pericardial effusion Previous Study In comparison with the prior exam on 05-11-18 there are no significant changes. Signature Findings Technical Quality: Technically adequate exam. Left Ventricle The left ventricle is chamber size (by PSLAX dimension) is normal (male - LVIDd 4.2-5.8cm) . Mild basal septal hypertrophy is present. The following segment(s) appear akinetic: apical septum . Septal motion is abnormal, likely related to prior cardiac surgery .The other segments contract normally. Global LV systolic function normal . LVEF by Greer's method of disk assessment is normal (55-60%) . The LVEF was measured using Greer's bi-plane method of disk . Grade 2 diastolic dysfunction (moderately increased LA pressure). Left Atrium LA size is moderately enlarged (42-48 ml/m2) . Right Ventricle RV chamber size is normal . Global RV systolic function is normal . Right Atrium RA cavity s ize is normal . Aortic Valve Mild AoV cusp thickening and calcification. AoV cusp mobility is normal . Mitral Valve Mild MV leaflet thickening. Trace mitral regurgitation. Tricuspid Valve TV structure is normal. Trace TR. Unable to estimate peak systolic PA pressure; inadequate TRvelocity signal. Pulmonic Valve Normal PV structure and function. Aorta Aortic root size (SInus of Valsalva diameter) is normal . Pericardium No pericardial effusion is visualized. IVC/SVC/PA/PV/Pleural Pulmonary vein flow is consistent with increased LAP . The estimated RA pressure by IVC dynamics 5-10mmHg . Chambers/Structures Left Atrium LA Volume: 83.11 ml LA Area: 24.24 cm^2 LA Vol. Index: 46 ml/m^2 Left Ventricle LVIDd: 4.85 cm LV Septum Diastolic: 1.36 cm LV PW Diastolic: 0.98 cm LVEDV Greer's:90.48 ml LV Length: 8.97cm LVESV Greer's:37.8 ml LVEF Greer's: 58.2 % LVEDVI: 50 ml/m^2 LVESVI: 21 ml/m^2 LVOT Diameter: 2.07 cm Right Atrium RA Vol. (Sngl Plane): 40 ml Right Ventricle TAPSE: 1.77 cm Aorta Ao Root S of Nneka.: 3.52 cm Doppler/Quantitative Measurements Mitral Valve MV Peak E-Wave: 0.87 m/s MV Peak A-Wave: 0.57 m/s E/A Ratio: 1.52 Peak Gradient: 3.06 mmHg Deceleration Time: 195.2 msecMV Brad. Peak: Tissue Doppler E' Lateral Velocity: 0.05 m/s E/E': 17.18 Aortic Valve PeakVelocity: 1.13 m/s Mean Velocity: 0.77 m/s Peak Gradient: 5.09 mmHg Mean Gradient: 2.8 mmHg AV Area (continuity): 2.94 cm^2 AV VTI: 24.29 cm AV DVI: 0.87 LVOT PeakVelocity: 1.06 m/s Peak Gradient: 4.57 mmHg Mean Velocity: 0.69 m/s Mean Gradient: 2.26 mmHg LVOT Diameter: 2.07 cm LVOT VTI: 21.22 cm LVOT Area: 3.37 cm^2 LVOT SV:71.38 ml LVOT CO: 4.78 l/min LVOT CI: 2.63 l/min/m^2[facility] CenterLipid [id number] 05:55:00 Test Item Value Reference Range Interpretation Comments Triglycerides (test 97 mg/dL code = 2571-8) Cholesterol (test code 124 mg/dL = 3-3) HDL (test code = 34 mg/dL 2084-9) LDL Calculated (test 71 mg/dL code = 52728-9) JENNIFER (test code = JENNIFER) Triglyceride Reference Range: Low Risk <150 Borderline 150-199 High Risk 200-499 Very High Risk >=500 Cholesterol Reference Range: Low Risk <200 Borderline 200-239 High Risk >240 HDL Cholesterol Reference Range: Low Risk >=60 High Risk <40 LDL Cholesterol Reference Range: Optimal <100 Near Optimal 100-129 Borderline 130-159 High 160-189 Very High >=190 [facility] HospitalMagnesium2019-08-[facility] 05:55:00 Test Item Value Reference Range Interpretation Comments Magnesium (test code = 43587-6) 2.1 mg/dL 1.6-2.6 Lab Interpretation (test code = Normal 10546-6) [facility] HospitalMAGNESIUM2019-08-17 05:55:00 Test Item Value Reference Range Interpretation Comments MAGNESIUM (BEAKER) (test code = 2.1 mg/dL 1.6-2.6 627) LIPID [id number] 05:55:00 Test Item Value Reference Range Interpretation Comments TRIGLYCERIDES (BEAKER) (test code = 97 mg/dL 540) CHOLESTEROL (BEAKER) (test code = 124 mg/dL 631) HDL CHOLESTEROL (BEAKER) (test code 34 mg/dL = 976) LDL CHOLESTEROL CALCULATED (BEAKER) 71 mg/dL (test code = 633) Triglyceride Reference Range: Low Risk <150 Borderline 150-199 High Risk 200-499 Very High Risk >=500Cholesterol Reference Range: Low Risk <200 Borderline 200-239 High Risk >240HDL Cholesterol Reference Range: Low Risk >=60 High Risk <40LDL Cholesterol Reference Range: Optimal <100 Near Optimal 100-129 Borderline 130-159 High 160-189 Very High >=190HEPATIC FUNCTION [id number] 05:55:00 Test Item Value Reference Range Interpretation Comments TOTAL PROTEIN (BEAKER) (test code = 6.0 gm/dL 6.0-8.3 770) ALBUMIN (BEAKER) (test code = 1145) 3.1 g/dL 3.5-5.0 L BILIRUBIN TOTAL (BEAKER) (test code 0.7 mg/dL 0.2-1.2 = 377) BILIRUBIN DIRECT (BEAKER) (test 0.4 mg/dL 0.1-0.5 code = 706) ALKALINE PHOSPHATASE (BEAKER) (test 28 U/L 40-150 L code = 346) AST (SGOT) (BEAKER) (test code = 27 U/L 5-34 353) ALT (SGPT) (BEAKER) (test code = 34 U/L 6-55 347) BASIC METABOLIC [id number] 05:55:00 Test Item Value Reference Range Interpretation Comments SODIUM (BEAKER) 135 meq/L 136-145 L (test code = 381) POTASSIUM (BEAKER) 3.8 meq/L 3.5-5.1 (test code = 379) CHLORIDE (BEAKER) 105 meq/L 98-107 (test code = 382) CO2 (BEAKER) (test 23 meq/L 22-29 code = 355) BLOOD UREA NITROGEN 23 mg/dL 7-21 H (BEAKER) (test code = 354) CREATININE (BEAKER) 1.13 mg/dL 0.57-1.25 (test code = 358) GLUCOSE RANDOM 161 mg/dL 70-105 H (BEAKER) (test code = 652) CALCIUM (BEAKER) 7.9 mg/dL 8.4-10.2 L (test code = 697) EGFR (BEAKER) (test 66 mL/min/1.73 ESTIMA JUAREZ GFR IS code = 1092) sq m NOT ACCURATE CREATININE CLEARANCE IN PREDICTING GLOMERULAR FILTRATION RATE . ESTIMATED GFR I S NOT APPLICABLE FOR DIALYSIS PATIEN TS. CBC with platelet count + automated [id number] 05:03:00 Test Item Value Reference Range Interpretation Comments WBC (test code = 6690-2) 18.5 3.5- 10.5 K/L H RBC (test code = 789-8) 3.90 4.63- 6.08 M/L L MCHC (test code = 786-4) 32.4 32.3- 36.5 GM/DL L Hematocrit (test code = 4544-3) 37.0 % 40.1-51 L MCV (test code = 787-2) 94.9 fL 79-92.2 H MCH (test code = 785-6) 30.8 pg 25.7-32.2 RDW (test code = 788-0) 14.2 % 11.6-14.4 Platelets (test code = 777-3) 195 150- 450 K/CU MM MPV (test code = 26223-4) 11.5 fL 9.4-12.4 nRBC (test code = 413) 0 0- 0 /100 WBC % Neutros (test code = 429) 83 % % Lymphs (test code = 430) 10 % % Monos (test code = 431) 7 % % Eos (test code = 432) 1 % % Baso (test code = 437) 0 % # Neutros (test code = 670) 15.28 1.78- 5.38 K/L H # Lymphs (test code = 414) 1.77 1.32- 3.57 K/L # Monos (test code = 415) 1.20 0.30- 0.82 K/L H # Eos (test code = 416) 0.09 0.04- 0.54 K/L # Baso (test code = 417) 0.05 0.01- 0.08 K/L Immature Granulocytes-Relative 1 % 0-1 (test code = 2801) Lab Interpretation (test code = Abnormal 27884-5) [facility] W/PLT COUNT & AUTO [id number] 05:03:00 Test Item Value Reference Range Interpretation Comments WHITE BLOOD CELL COUNT (BEAKER) 18.5 K/ L 3.5-10.5 H (test code = 775) RED BLOOD CELL COUNT (BEAKER) 3.90 M/ L 4.63-6.08 L (test code = 761) HEMOGLOBIN (BEAKER) (test code = 12.0 GM/DL 13.7-17.5 L 410) HEMATOCRIT (BEAKER) (test code = 37.0 % 40.1-51.0 L 411) MEAN CORPUSCULAR VOLUME (BEAKER) 94.9 fL 79.0-92.2 H (test code = 753) MEAN CORPUSCULAR HEMOGLOBIN 30.8 pg 25.7-32.2 (BEAKER) (test code = 751) MEAN CORPUSCULAR HEMOGLOBIN CONC 32.4 GM/DL 32.3-36.5 (BEAKER) (test code = 752) RED CELL DISTRIBUTION WIDTH 14.2 % 11.6-14.4 (BEAKER) (test code = 412) PLATELET COUNT (BEAKER) (test 195 K/CU MM 150-450 code = 756) MEAN PLATELET VOLUME (BEAKER) 11.5 fL 9.4-12.4 (test code = 754) NUCLEATED RED BLOOD CELLS 0 /100 WBC 0-0 (BEAKER) (test code = 413) NEUTROPHILS RELATIVE PERCENT 83 % (BEAKER) (test code = 429) LYMPHOCYTES RELATIVE PERCENT 10 % (BEAKER) (test code = 430) MONOCYTES RELATIVE PERCENT 7 % (BEAKER) (test code = 431) EOSINOPHILS RELATIVE PERCENT 1 % (BEAKER) (test code = 432) BASOPHILS RELATIVE PERCENT 0 % (BEAKER) (test code = 437) NEUTROPHILS ABSOLUTE COUNT 15.28 K/ L 1.78-5.38 H (BEAKER) (test code = 670) LYMPHOCYTES ABSOLUTE COUNT 1.77 K/ L 1.32-3.57 (BEAKER) (test code = 414) MONOCYTES ABSOLUTE COUNT (BEAKER) 1.20 K/ L 0.30-0.82 H (test code = 415) EOSINOPHILS ABSOLUTE COUNT 0.09 K/ L 0.04-0.54 (BEAKER) (test code = 416) BASOPHILS ABSOLUTE COUNT (BEAKER) 0.05 K/ L 0.01-0.08 (test code = 417) IMMATURE GRANULOCYTES-RELATIVE 1 % 0-1 PERCENT (BEAKER) (test code = 2801) TROPONIN [id number] 05:02:00 Test Item Value Reference Range Interpretation Comments TROPONIN I (BEAKER) (test code = 0.05 ng/mL 0.00-0.03 H 397) Troponin I (TnI) levels must be interpreted [...] failure, acidosis, acute neurological disease, and persistent tachyarrhythmia.Lactic acid, venous, [id number] 04:48:00 Test Item Value Reference Range Interpretation Comments Lactate, Venous (test code = 2872) 1.1 mmol/L 0.5-2.2 Lab Interpretation (test code = Normal 52565-3) [facility] HospitalLACTIC ACID, [id number] 04:48:00 Test Item Value Reference Range Interpretation Comments LACTATE BLOOD VENOUS (2) (BEAKER) 1.1 mmol/L 0.5-2.2 (test code = 2872) Urinalysis w/Microscopic + Reflex to [id number] 03:25:00 Test Item Value Reference Range Interpretation Comments Color, UA (test code = 5778-6) Yellow Clarity, UA (test code = 5767-9) Hazy Specific [place], UA (test code = 1.030 1.001-1.035 5811-5) pH, UA (test code = 5803-2) 5.5 5.0-8.0 Protein, UA (test code = 55928-9) 70 mg/dL Negative A Glucose, UA (test code = 365) 200 mg/dL Negative A Ketones, UA (test code = 2514-8) Trace Negative A Bilirubin, UA (test code = Negative Negative 55698-8) Blood, UA (test code = 26157-1) Negative Negative Nitrite, UA (test code = 5802-4) Negative Negative Leukocytes, UA (test code = Large Negative A 5799-2) Urobilinogen, UA (test code = 2.0 mg/dL 0.2-1 H 83540-4) RBC, UA (test code = 58016-6) 7 /HPF WBC, UA (test code = 5821-4) 135 /HPF Mucus (test code = 8247-9) Occasional Squam Epithel, UA (test code = 10 /HPF 96889-6) Hyaline Casts, UA (test code = 18 /LPF 59528-5) Specimen Source (test code = 2795) Lab Interpretation (test code = Abnormal 72018-3) [facility]/ REFLEX URINE [id number] 03:25:00 Test Item Value Reference Range Interpretation Comments COLOR (BEAKER) (test code = 470) Yellow CLARITY (BEAKER) (test code = 469) Hazy SPECIFIC GRAVITY UA (BEAKER) (test 1.030 1.001-1.035 code = 468) PH UA (BEAKER) (test code = 467) 5.5 5.0-8.0 PROTEIN UA (BEAKER) (test code = 70 mg/dL Negative A 464) GLUCOSE UA (BEAKER) (test code = 200 mg/dL Negative A 365) KETONES UA (BEAKER) (test code = Trace Negative A 371) BILIRUBIN UA (BEAKER) (test code = Negative Negative 462) BLOOD UA (BEAKER) (test code = Negative Negative 461) NITRITE UA (BEAKER) (test code = Negative Negative 465) LEUKOCYTE ESTERASE UA (BEAKER) Large Negative A (test code = 466) UROBILINOGEN UA (BEAKER) (test 2.0 mg/dL 0.2-1.0 H code = 463) RBC UA (BEAKER) (test code = 519) 7 /HPF WBC UA (BEAKER) (test code = 520) 135 /HPF MUCUS (BEAKER) (test code = 1574) Occasional SQUAMOUS EPITHELIAL (BEAKER) (test 10 /HPF code = 516) HYALINE CASTS (BEAKER) (test code 18 /LPF = 514) SOURCE(BEAKER) (test code = 2795) Oxygen saturation, [id number] 03:04:00 Test Item Value Reference Range Interpretation Comments O2 Saturation 86.6 % (Measured) (test code = 33856-8) JENNIFER (test code = JENNIFER) If patient has internal jugular ( IJ) or subclavian central line or PICC line. Draw from distal port. Label as central venous oxygen. [facility] HospitalOXYGEN SATURATION, [id number] 03:04:00 Test Item Value Reference Range Interpretation Comments O2 SATURATION (MEASURED) (BEAKER) 86.6 % (test code = 1455) If patient has internal jugular ( IJ) or subclavian central line or PICC line. Draw from distal port. Label as central venous oxygen.LACTIC ACID, VENOUS 2019-06-10 02:04:00 Test Item Value Reference Range Interpretation Comments LACTATE BLOOD VENOUS (2) (BEAKER) 0.7 mmol/L 0.5-2.2 (test code = 2872) [id number] 23:52:00 Test Item Value Reference Range Interpretation Comments PROCALCITONIN (BEAKER) (test code 0.30 ng/mL <0.05 H = 3036) SEPSIS RISK (ng/mL)Low: 0.05-0.50Intermediate: 0.51-2.00High: >=2.01TROPONIN [id number] 23:40:00 Test Item Value Reference Range Interpretation Comments TROPONIN I (BEAKER) (test code = 0.11 ng/mL 0.00-0.03 H 397) Troponin I (TnI) levels must be interpreted [...] failure, acidosis, acute neurological disease, and persistent tachyarrhythmia.[id number] 23:34:00 Test Item Value Reference Range Interpretation Comments Lipase (test code = 3040-3) 38 U/L 8-78 Lab Interpretation (test code = Normal 52838-5) [facility] HospitalPhosphorus2019-[facility] 23:34:00 Test Item Value Reference Range Interpretation Comments Phosphorus (test code = 2777-1) 3.4 mg/dL 2.3-4.7 Lab Interpretation (test code = Normal 59097-7) [facility]PHOSPHORUS2019-08-16 23:34:00 Test Item Value Reference Range Interpretation Comments PHOSPHORUS (BEAKER) (test code = 3.4 mg/dL 2.3-4.7 604) [id number] 23:34:00 Test Item Value Reference Range Interpretation Comments MAGNESIUM (BEAKER) (test code = 2.2 mg/dL 1.6-2.6 627) BASIC METABOLIC [id number] 23:34:00 Test Item Value Reference Range Interpretation Comments SODIUM (BEAKER) 137 meq/L 136-145 (test code = 381) POTASSIUM (BEAKER) 3.7 meq/L 3.5-5.1 (test code = 379) CHLORIDE (BEAKER) 106 meq/L 98-107 (test code = 382) CO2 (BEAKER) (test 24 meq/L 22-29 code = 355) BLOOD UREA NITROGEN 22 mg/dL 7-21 H (BEAKER) (test code = 354) CREATININE (BEAKER) 1.44 mg/dL 0.57-1.25 H (test code = 358) GLUCOSE RANDOM 147 mg/dL 70-105 H (BEAKER) (test code = 652) CALCIUM (BEAKER) 8.5 mg/dL 8.4-10.2 (test code = 697) EGFR (BEAKER) (test 50 mL/min/1.73 ESTIMA JUAREZ GFR IS code = 1092) sq m NOT ACCURATE CREATININE CLEARANCE IN PREDICTING GLOMERULAR FILTRATION RATE . ESTIMATED GFR I S NOT APPLICABLE FOR DIALYSIS PATIEN TS. HEPATIC FUNCTION [id number] 23:34:00 Test Item Value Reference Range Interpretation Comments TOTAL PROTEIN (BEAKER) (test code = 6.5 gm/dL 6.0-8.3 770) ALBUMIN (BEAKER) (test code = 1145) 3.4 g/dL 3.5-5.0 L BILIRUBIN TOTAL (BEAKER) (test code 0.8 mg/dL 0.2-1.2 = 377) BILIRUBIN DIRECT (BEAKER) (test 0.5 mg/dL 0.1-0.5 code = 706) ALKALINE PHOSPHATASE (BEAKER) (test 31 U/L 40-150 L code = 346) AST (SGOT) (BEAKER) (test code = 35 U/L 5-34 H 353) ALT (SGPT) (BEAKER) (test code = 42 U/L 6-55 347) COMPREHENSIVE METABOLIC [id number] 23:34:00 Test Item Value Reference Range Interpretation Comments TOTAL PROTEIN 6.5 gm/dL 6.0-8.3 (BEAKER) (test code = 770) ALBUMIN (BEAKER) 3.4 g/dL 3.5-5.0 L (test code = 1145) ALKALINE PHOSPHATASE 31 U/L 40-150 L (BEAKER) (test code = 346) BILIRUBIN TOTAL 0.8 mg/dL 0.2-1.2 (BEAKER) (test code = 377) SODIUM (BEAKER) (test 137 meq/L 136-145 code = 381) POTASSIUM (BEAKER) 3.7 meq/L 3.5-5.1 (test code = 379) CHLORIDE (BEAKER) 106 meq/L 98-107 (test code = 382) CO2 (BEAKER) (test 24 meq/L 22-29 code = 355) BLOOD UREA NITROGEN 22 mg/dL 7-21 H (BEAKER) (test code = 354) CREATININE (BEAKER) 1.44 mg/dL 0.57-1.25 H (test code = 358) GLUCOSE RANDOM 147 mg/dL 70-105 H (BEAKER) (test code = 652) CALCIUM (BEAKER) 8.5 mg/dL 8.4-10.2 (test code = 697) AST (SGOT) (BEAKER) 35 U/L 5-34 H (test code = 353) ALT (SGPT) (BEAKER) 42 U/L 6-55 (test code = 347) EGFR (BEAKER) (test 50 mL/min/1.73 ESTIMA JUAREZ GFR IS code = 1092) sq m NOT ACCURATE CREATININE CLEARANCE IN PREDICTING GLOMERULAR FILTRATION RATE . ESTIMATED GFR I S NOT APPLICABLE FOR DIALYSIS PATIEN TS. [id number] 23:34:00 Test Item Value Reference Range Interpretation Comments LIPASE (BEAKER) (test code = 749) 38 U/L 8-78 [id number] 23:33:00 Test Item Value Reference Range Interpretation Comments Fibrinogen (test code = 3255-7) 300 mg/dl 225-434 Lab Interpretation (test code = Normal 54517-0) [facility]aPTT[facility] 23:33:00 Test Item Value Reference Range Interpretation Comments PTT (test code = 44394-5) 27.3 22.5- 36.0 seconds Lab Interpretation (test code = Normal 10727-0) [facility]APTT[facility] 23:33:00 Test Item Value Reference Range Interpretation Comments PARTIAL THROMBOPLASTIN TIME 27.3 seconds 22.5-36.0 (BEAKER) (test code = 760) [id number] 23:33:00 Test Item Value Reference Range Interpretation Comments FIBRINOGEN LEVEL (BEAKER) (test 300 mg/dl 225-434 code = 658) Prothrombin time/[id number] 23:32:00 Test Item Value Reference Range Interpretation Comments Protime (test code = 13.9 11.9- 14.2 5902-2) seconds INR (test code = 1.1 <=5.9 6301-6) JENNIFER (test code = JENNIFER) Effective 03/22/2019: PT Reference Range ChangeNew: 11.9-14.2 Previous: 11.7-14.7 RECOMMENDED COUMADIN/WARFARIN INR THERAPY RANGESSTANDARD DOSE: 2.0-3.0 Includes: PROPHYLAXIS for venous thrombosis, systemic embolization; TREATMENT for venous thrombosis and/or pulmonary embolus.HIGH RISK: Target INR is 2.5-3.5 for patients wiht mechanical heart valves. Lab Interpretation Normal (test code = 53264-9) [facility] HospitalPROTHROMBIN TIME/[id number] 23:32:00 Test Item Value Reference Range Interpretation Comments PROTIME (BEAKER) (test code = 13.9 seconds 11.9-14.2 759) INR (BEAKER) (test code = 370) 1.1 <=5.9 Effective 03/22/2019: PT Reference Range ChangeNew: 11.9-14.2 Previous: 11.7- 14.7RECOMMENDED COUMADIN/WARFARIN INR THERAPY RANGESSTANDARD DOSE: 2.0-3.0 Includes: PROPHYLAXIS for venous thrombosis, systemic embolization; TREATMENT for venous thrombosis and/or pulmonary embolus.HIGH RISK: Target INR is2.5-3.5 for patients wiht mechanical heart valves.CBC W/PLT COUNT & AUTO [id number] 23:22:00 Test Item Value Reference Range Interpretation Comments WHITE BLOOD CELL COUNT (BEAKER) 20.8 K/ L 3.5-10.5 H (test code = 775) RED BLOOD CELL COUNT (BEAKER) 4.25 M/ L 4.63-6.08 L (test code = 761) HEMOGLOBIN (BEAKER) (test code = 13.4 GM/DL 13.7-17.5 L 410) HEMATOCRIT (BEAKER) (test code = 41.0 % 40.1-51.0 411) MEAN CORPUSCULAR VOLUME (BEAKER) 96.5 fL 79.0-92.2 H (test code = 753) MEAN CORPUSCULAR HEMOGLOBIN 31.5 pg 25.7-32.2 (BEAKER) (test code = 751) MEAN CORPUSCULAR HEMOGLOBIN CONC 32.7 GM/DL 32.3-36.5 (BEAKER) (test code = 752) RED CELL DISTRIBUTION WIDTH 14.3 % 11.6-14.4 (BEAKER) (test code = 412) PLATELET COUNT (BEAKER) (test 197 K/CU MM 150-450 code = 756) MEAN PLATELET VOLUME (BEAKER) 12.8 fL 9.4-12.4 H (test code = 754) NUCLEATED RED BLOOD CELLS 0 /100 WBC 0-0 (BEAKER) (test code = 413) NEUTROPHILS RELATIVE PERCENT 83 % (BEAKER) (test code = 429) LYMPHOCYTES RELATIVE PERCENT 9 % (BEAKER) (test code = 430) MONOCYTES RELATIVE PERCENT 7 % (BEAKER) (test code = 431) EOSINOPHILS RELATIVE PERCENT 1 % (BEAKER) (test code = 432) BASOPHILS RELATIVE PERCENT 0 % (BEAKER) (test code = 437) NEUTROPHILS ABSOLUTE COUNT 17.13 K/ L 1.78-5.38 H (BEAKER) (test code = 670) LYMPHOCYTES ABSOLUTE COUNT 1.88 K/ L 1.32-3.57 (BEAKER) (test code = 414) MONOCYTES ABSOLUTE COUNT (BEAKER) 1.48 K/ L 0.30-0.82 H (test code = 415) EOSINOPHILS ABSOLUTE COUNT 0.11 K/ L 0.04-0.54 (BEAKER) (test code = 416) BASOPHILS ABSOLUTE COUNT (BEAKER) 0.05 K/ L 0.01-0.08 (test code = 417) IMMATURE GRANULOCYTES-RELATIVE 1 % 0-1 PERCENT (BEAKER) (test code = 2801) Blood gas, [id number] 22:27:00 Test Item Value Reference Range Interpretation Comments pH, Arterial (test code = 2744-1) 7.41 7.35-7.45 pCO2, Arterial (test code = 38 35- 45 mmHg 2018-8) pO2, Arterial (test code = 87 80- 90 mmHg 3-7) O2 Sat, Arterial (test code = 96.8 % 96-97 2708-6) HCO3, Arterial (test code = 24 mmol/L 21-29 1959-4) Base Excess, Arterial (test code -0.7 mmol/L -2-3 = 1925-7) Patient Temperature (test code = 37.0 C 8310-5) FIO2 (test code = 1819) 21 % [facility] [id number] 22:27:00 Test Item Value Reference Range Interpretation Comments PH ARTERIAL (BEAKER) (test code = 7.41 7.35-7.45 383) PCO2 ARTERIAL (BEAKER) (test code 38 mmHg 35-45 = 384) PO2 ARTERIAL (BEAKER) (test code 87 mmHg 80-90 = 385) O2 SATURATION ARTERIAL (BEAKER) 96.8 % 96.0-97.0 (test code = 386) HCO3 ARTERIAL (BEAKER) (test code 24 mmol/L 21-29 = 388) BASE EXCESS ARTERIAL (BEAKER) -0.7 mmol/L -2.0-3.0 (test code = 387) PATIENT TEMPERATURE (BEAKER) 37.0 C (test code = 1818) FIO2 (BEAKER) (test code = 1819) 21.0 % POC-Lactic Acid, [id number] 21:53:00 Test Item Value Reference Range Interpretation Comments POC-Lactic Acid, Venous 1.6 mmol/L 0.9-1.7 TEST ED AT [facility] (test code = 2805) [address] [facility] 7703 0 Lab Interpretation (test Normal code = 67250-2) [facility] [id number] 21:53:00 Test Item Value Reference Range Interpretation Comments POC-LACTIC ACID, 1.6 mmol/L 0.9-1.7 TESTED AT [facility] 67[address] VENOUS (BEAKER) (test [facility] code = 2805) [address] TROPONIN [id number] 18:59:00 Test Item Value Reference Range Interpretation Comments TROPONIN I (BEAKER) (test code = 0.09 ng/mL 0.00-0.03 H 397) Troponin I (TnI) levels must be interpreted [...] acute neurological disease, and persistent tachyarrhythmia.HEPATITIS C [id number] 16:55:00 Test Item Value Reference Range Interpretation Comments HEPATITIS C ANTIBODY ([facility]) (test Reactive Nonreactive A code = 367) POCT-GLUCOSE [id number] 12:03:00 Test Item Value Reference Range Interpretation Comments POC-GLUCOSE METER 169 mg/dL 70-110 H TESTED AT [place] [address] ([facility]) (test code = [facility] 1538) [address] HEPATITIS B CORE ANTIBODY, [id number] 08:37:00 Test Item Value Reference Range Interpretation Comments HEPATITIS B CORE TOTAL ANTIBODY Reactive Nonreactive A ([facility]) (test code = 497) POCT-GLUCOSE [id number] 08:14:00 Test Item Value Reference Range Interpretation Comments POC-GLUCOSE METER 105 mg/dL 70-110 TESTED AT [place] [address] ([facility]) (test code = [facility] 1538) [address] HEPATIC FUNCTION [id number] 07:10:00 Test Item Value Reference Range Interpretation Comments TOTAL PROTEIN (BEAKER) (test code = 6.7 gm/dL 6.0-8.3 770) ALBUMIN (BEAKER) (test code = 1145) 3.5 g/dL 3.5-5.0 BILIRUBIN TOTAL (BEAKER) (test code 0.5 mg/dL 0.2-1.2 = 377) BILIRUBIN DIRECT ([facility]) (test 0.3 mg/dL 0.1-0.5 code = 706) ALKALINE PHOSPHATASE (BEAKER) (test 60 U/L 40-150 code = 346) AST (SGOT) (BEAKER) (test code = 47 U/L 5-34 H 353) ALT (SGPT) ([facility]) (test code = 67 U/L 6-55 H 347) BASIC METABOLIC [id number] 07:10:00 Test Item Value Reference Range Interpretation Comments SODIUM (BEAKER) 138 meq/L 136-145 (test code = 381) POTASSIUM (BEAKER) 3.8 meq/L 3.5-5.1 (test code = 379) CHLORIDE (BEAKER) 104 meq/L 98-107 (test code = 382) CO2 (BEAKER) (test 25 meq/L 22-29 code = 355) BLOOD UREA NITROGEN 18 mg/dL 7-21 (BEAKER) (test code = 354) CREATININE (BEAKER) 0.94 mg/dL 0.57-1.25 (test code = 358) GLUCOSE RANDOM 109 mg/dL 70-105 H (BEAKER) (test code = 652) CALCIUM (BEAKER) 9.1 mg/dL 8.4-10.2 (test code = 697) EGFR (BEAKER) (test 82 mL/min/1.73 ESTIMA JUAREZ GFR IS code = 1092) sq m NOT ACCURATE CREATININE CLEARANCE IN PREDICTING GLOMERULAR FILTRATION RATE . ESTIMATED GFR I S NOT APPLICABLE FOR DIALYSIS PATIEN TS. HEPATITIS B SURFACE [id number] 06:58:00 Test Item Value Reference Range Interpretation Comments HEPATITIS B SURFACE ANTIBODY < mIU/mL <8.0 (BEAKER) (test code = 647) HEPATITIS B SURFACE [id number] 05:42:00 Test Item Value Reference Range Interpretation Comments HEPATITIS B SURFACE ANTIGEN (2) Nonreactive Nonreactive (BEAKER) (test code = 2585) HEPATITIS B CORE ANTIBODY, [id number] 05:42:00 Test Item Value Reference Range Interpretation Comments HEPATITIS B CORE IGM ANTIBODY Nonreactive Nonreactive (BEAKER) (test code = 645) CBC W/PLT COUNT & AUTO [id number] 04:56:00 Test Item Value Reference Range Interpretation Comments WHITE BLOOD CELL COUNT (BEAKER) 9.4 K/ L 3.5-10.5 (test code = 775) RED BLOOD CELL COUNT (BEAKER) 4.48 M/ L 4.63-6.08 L (test code = 761) HEMOGLOBIN (BEAKER) (test code = 13.6 GM/DL 13.7-17.5 L 410) HEMATOCRIT (BEAKER) (test code = 41.5 % 40.1-51.0 411) MEAN CORPUSCULAR VOLUME (BEAKER) 92.6 fL 79.0-92.2 H (test code = 753) MEAN CORPUSCULAR HEMOGLOBIN 30.4 pg 25.7-32.2 (BEAKER) (test code = 751) MEAN CORPUSCULAR HEMOGLOBIN CONC 32.8 GM/DL 32.3-36.5 (BEAKER) (test code = 752) RED CELL DISTRIBUTION WIDTH 13.5 % 11.6-14.4 (BEAKER) (test code = 412) PLATELET COUNT (BEAKER) (test 218 K/CU MM 150-450 code = 756) MEAN PLATELET VOLUME (BEAKER) 11.3 fL 9.4-12.4 (test code = 754) NUCLEATED RED BLOOD CELLS 0 /100 WBC 0-0 (BEAKER) (test code = 413) NEUTROPHILS RELATIVE PERCENT 52 % (BEAKER) (test code = 429) LYMPHOCYTES RELATIVE PERCENT 31 % (BEAKER) (test code = 430) MONOCYTES RELATIVE PERCENT 8 % (BEAKER) (test code = 431) EOSINOPHILS RELATIVE PERCENT 8 % (BEAKER) (test code = 432) BASOPHILS RELATIVE PERCENT 1 % (BEAKER) (test code = 437) NEUTROPHILS ABSOLUTE COUNT 4.85 K/ L 1.78-5.38 (BEAKER) (test code = 670) LYMPHOCYTES ABSOLUTE COUNT 2.92 K/ L 1.32-3.57 (BEAKER) (test code = 414) MONOCYTES ABSOLUTE COUNT (BEAKER) 0.77 K/ L 0.30-0.82 (test code = 415) EOSINOPHILS ABSOLUTE COUNT 0.79 K/ L 0.04-0.54 H (BEAKER) (test code = 416) BASOPHILS ABSOLUTE COUNT (BEAKER) 0.06 K/ L 0.01-0.08 (test code = 417) IMMATURE GRANULOCYTES-RELATIVE 0 % 0-1 PERCENT (BEAKER) (test code = 2801) U/S, RENAL WITH [id number] 16:28:00Reason for exam:->hypertensionFINAL REPORT INDICATION: 57-year-old inpatient [...] prostate noted on CT exam yesterday. Signed: Sukumar Rowell MDReport Verified Date/Time: 05/11/2018 16:28:02 Reading Location: [address] Ultrasound Reading Room U/S, ABDOMINAL, [id number] 16:15:00Abdomen limited area? Add comment if clarification is needed.- >LiverReason for exam:->mild transaminitisShould this be performed at the bedside?->no preferenceFINAL REPORT INDICATION: 57-year-old inpatient male with abnormal liver function tests. TECHNIQUE: Abdominal ultrasound limited (right upper quadrant). COMPARISON: CTA exam April 242017 FINDINGS:Pancreas, to the extent visualized, is normal. [...] system. Obstructingstone or lesion also considered. Signed: Sukumar Rowell MDReport Verified Date/Time: 05/11/2018 16:15:41 Reading Location: [facility] P006J Ultrasound Reading Room CTA, CHEST, ABDOMEN - PELVIS, FOR [id number] 14:11:00Reason for exam:->Chest painAddendum BeginsREPORT STATUS:A Addendum: I agree with the previously described non vascular findings. Signed: Antionette Hinojosa MDReport Verified Date/Time: 05/11/2018 14:11:09 Reading Location: [facility] P048 Angio Body Reading RoomAddendum EndsFINAL [...] passage of intravenous contrast material. Multi-planar 3-D volume- rendering reconstruction was performed using an independent workstation [...] coronary artery calcification is seen in the [place] coronary territories. Patient is post coronary artery [...] thoracic aorta. In the abdominal aorta, circumferential ythj-pc-uhidrwye calcific atherosclerosis is seen. Overall, no ectasia [...] An addendum will be dictated by the Manager Forms Radiologist regarding the nonvascular findings. Signed: Magno Augustineport Verified Date/Time: 05/10/2018 18:58:16 Reading Location: [place] [address] Cardiology MRI CALCIUM, [id number] 05:20:00 Test Item Value Reference Range Interpretation Comments CALCIUM IONIZED (BEAKER) (test 1.16 mmol/L 1.12-1.27 code = 698) PH, BLOOD (BEAKER) (test code = 7.40 1810) [id number] 04:29:00 Test Item Value Reference Range Interpretation Comments PHOSPHORUS (BEAKER) (test code = 3.5 mg/dL 2.3-4.7 604) [id number] 04:29:00 Test Item Value Reference Range Interpretation Comments MAGNESIUM (BEAKER) (test code = 2.4 mg/dL 1.6-2.6 627) COMPREHENSIVE METABOLIC [id number] 04:29:00 Test Item Value Reference Range Interpretation Comments TOTAL PROTEIN 6.8 gm/dL 6.0-8.3 (BEAKER) (test code = 770) ALBUMIN (BEAKER) 3.6 g/dL 3.5-5.0 (test code = 1145) ALKALINE PHOSPHATASE 58 U/L 40-150 (BEAKER) (test code = 346) BILIRUBIN TOTAL 0.6 mg/dL 0.2-1.2 (BEAKER) (test code = 377) SODIUM (BEAKER) (test 140 meq/L 136-145 code = 381) POTASSIUM (BEAKER) 3.6 meq/L 3.5-5.1 (test code = 379) CHLORIDE (BEAKER) 105 meq/L 98-107 (test code = 382) CO2 (BEAKER) (test 28 meq/L 22-29 code = 355) BLOOD UREA NITROGEN 14 mg/dL 7-21 (BEAKER) (test code = 354) CREATININE (BEAKER) 0.85 mg/dL 0.57-1.25 (test code = 358) GLUCOSE RANDOM 83 mg/dL 70-105 (BEAKER) (test code = 652) CALCIUM (BEAKER) 9.0 mg/dL 8.4-10.2 (test code = 697) AST (SGOT) (BEAKER) 68 U/L 5-34 H (test code = 353) ALT (SGPT) (BEAKER) 72 U/L 6-55 H (test code = 347) EGFR (BEAKER) (test 92 mL/min/1.73 ESTIMA JUAREZ GFR IS code = 1092) sq m NOT ACCURATE CREATININE CLEARANCE IN PREDICTING GLOMERULAR FILTRATION RATE . ESTIMATED GFR I S NOT APPLICABLE FOR DIALYSIS PATIEN TS. CBC W/PLT COUNT & AUTO [id number] 03:58:00 Test Item Value Reference Range Interpretation Comments WHITE BLOOD CELL COUNT (BEAKER) 10.2 K/ L 3.5-10.5 (test code = 775) RED BLOOD CELL COUNT (BEAKER) 4.49 M/ L 4.63-6.08 L (test code = 761) HEMOGLOBIN (BEAKER) (test code = 13.4 GM/DL 13.7-17.5 L 410) HEMATOCRIT (BEAKER) (test code = 41.7 % 40.1-51.0 411) MEAN CORPUSCULAR VOLUME (BEAKER) 92.9 fL 79.0-92.2 H (test code = 753) MEAN CORPUSCULAR HEMOGLOBIN 29.8 pg 25.7-32.2 (BEAKER) (test code = 751) MEAN CORPUSCULAR HEMOGLOBIN CONC 32.1 GM/DL 32.3-36.5 L (BEAKER) (test code = 752) RED CELL DISTRIBUTION WIDTH 13.7 % 11.6-14.4 (BEAKER) (test code = 412) PLATELET COUNT (BEAKER) (test 192 K/CU MM 150-450 code = 756) MEAN PLATELET VOLUME (BEAKER) 10.7 fL 9.4-12.4 (test code = 754) NUCLEATED RED BLOOD CELLS 0 /100 WBC 0-0 (BEAKER) (test code = 413) NEUTROPHILS RELATIVE PERCENT 53 % (BEAKER) (test code = 429) LYMPHOCYTES RELATIVE PERCENT 32 % (BEAKER) (test code = 430) MONOCYTES RELATIVE PERCENT 9 % (BEAKER) (test code = 431) EOSINOPHILS RELATIVE PERCENT 5 % (BEAKER) (test code = 432) BASOPHILS RELATIVE PERCENT 1 % (BEAKER) (test code = 437) NEUTROPHILS ABSOLUTE COUNT 5.36 K/ L 1.78-5.38 (BEAKER) (test code = 670) LYMPHOCYTES ABSOLUTE COUNT 3.23 K/ L 1.32-3.57 (BEAKER) (test code = 414) MONOCYTES ABSOLUTE COUNT (BEAKER) 0.93 K/ L 0.30-0.82 H (test code = 415) EOSINOPHILS ABSOLUTE COUNT 0.54 K/ L 0.04-0.54 (BEAKER) (test code = 416) BASOPHILS ABSOLUTE COUNT (BEAKER) 0.07 K/ L 0.01-0.08 (test code = 417) IMMATURE GRANULOCYTES-RELATIVE 0 % 0-1 PERCENT (BEAKER) (test code = 2801) U/S, RENAL, [id number] 13:00:00Reason for exam:->akiShould this be performed at [...] MDReport Verified Date/Time: 05/10/2018 13:00:32 Reading Location: [facility] P006J Ultrasound Reading Room CALCIUM, [id number] 06:58:00 Test Item Value Reference Range Interpretation Comments CALCIUM IONIZED (BEAKER) (test 1.08 mmol/L 1.12-1.27 L code = 698) PH, BLOOD (BEAKER) (test code = 7.35 1810) B-TYPE NATRIURETIC FACTOR (BNP)2018-05-10 05:49:00 Test Item Value Reference Range Interpretation Comments B-TYPE NATRIURETIC PEPTIDE (BEAKER) 153 pg/mL 0-100 H (test code = 700) [id number] 05:47:00 Test Item Value Reference Range Interpretation Comments MAGNESIUM (BEAKER) 2.4 mg/dL 1.6-2.6 Specimen slightly (test code = 627) hemolyzed [id number] 05:47:00 Test Item Value Reference Range Interpretation Comments PHOSPHORUS (BEAKER) 2.7 mg/dL 2.3-4.7 Specimen slightly (test code = 604) hemolyzed COMPREHENSIVE METABOLIC [id number] 05:47:00 Test Item Value Reference Range Interpretation Comments TOTAL PROTEIN 6.1 gm/dL 6.0-8.3 Specimen sligh tly (BEAKER) (test code = hemoly zed 770) ALBUMIN (BEAKER) 3.2 g/dL 3.5-5.0 L Specimen sl ightly (test code = 1145) hemolyzed ALKALINE PHOSPHATASE 48 U/L 40-150 (BEAKER) (test code = 346) BILIRUBIN TOTAL 0.8 mg/dL 0.2-1.2 Specimen sli ghtly (BEAKER) (test code = hemoly zed 377) SODIUM (BEAKER) (test 140 meq/L 136-145 code = 381) POTASSIUM (BEAKER) 4.1 meq/L 3.5-5.1 Specimen slightly (test code = 379) hemolyzed CHLORIDE (BEAKER) 109 meq/L 98-107 H (test code = 382) CO2 (BEAKER) (test 23 meq/L 22-29 code = 355) BLOOD UREA NITROGEN 24 mg/dL 7-21 H (BEAKER) (test code = 354) CREATININE (BEAKER) 0.88 mg/dL 0.57-1.25 Specimen slightly (test code = 358) hemolyzed GLUCOSE RANDOM 88 mg/dL 70-105 (BEAKER) (test code = 652) CALCIUM (BEAKER) 8.3 mg/dL 8.4-10.2 L (test code = 697) AST (SGOT) (BEAKER) 51 U/L 5-34 H Specimen slightly (test code = 353) hemolyzed ALT (SGPT) (BEAKER) 74 U/L 6-55 H Specimen slightly (test code = 347) hemolyzed EGFR (BEAKER) (test 89 mL/min/1.73 ESTIMA JUAREZ GFR IS code = 1092) sq m NOT ACCURATE CREATININE CLEARANCE IN PREDICTING GLOMERULAR FILTRATION RATE . ESTIMATED GFR I S NOT APPLICABLE FOR DIALYSIS PATIEN TS. CBC W/PLT COUNT & AUTO [id number] 05:31:00 Test Item Value Reference Range Interpretation Comments WHITE BLOOD CELL COUNT (BEAKER) 13.0 K/ L 3.5-10.5 H (test code = 775) RED BLOOD CELL COUNT (BEAKER) 4.32 M/ L 4.63-6.08 L (test code = 761) HEMOGLOBIN (BEAKER) (test code = 13.0 GM/DL 13.7-17.5 L 410) HEMATOCRIT (BEAKER) (test code = 40.5 % 40.1-51.0 411) MEAN CORPUSCULAR VOLUME (BEAKER) 93.8 fL 79.0-92.2 H (test code = 753) MEAN CORPUSCULAR HEMOGLOBIN 30.1 pg 25.7-32.2 (BEAKER) (test code = 751) MEAN CORPUSCULAR HEMOGLOBIN CONC 32.1 GM/DL 32.3-36.5 L (BEAKER) (test code = 752) RED CELL DISTRIBUTION WIDTH 13.9 % 11.6-14.4 (BEAKER) (test code = 412) PLATELET COUNT (BEAKER) (test 215 K/CU MM 150-450 code = 756) MEAN PLATELET VOLUME (BEAKER) 11.2 fL 9.4-12.4 (test code = 754) NUCLEATED RED BLOOD CELLS 0 /100 WBC 0-0 (BEAKER) (test code = 413) NEUTROPHILS RELATIVE PERCENT 56 % (BEAKER) (test code = 429) LYMPHOCYTES RELATIVE PERCENT 32 % (BEAKER) (test code = 430) MONOCYTES RELATIVE PERCENT 9 % (BEAKER) (test code = 431) EOSINOPHILS RELATIVE PERCENT 2 % (BEAKER) (test code = 432) BASOPHILS RELATIVE PERCENT 1 % (BEAKER) (test code = 437) NEUTROPHILS ABSOLUTE COUNT 7.24 K/ L 1.78-5.38 H (BEAKER) (test code = 670) LYMPHOCYTES ABSOLUTE COUNT 4.17 K/ L 1.32-3.57 H (BEAKER) (test code = 414) MONOCYTES ABSOLUTE COUNT (BEAKER) 1.12 K/ L 0.30-0.82 H (test code = 415) EOSINOPHILS ABSOLUTE COUNT 0.30 K/ L 0.04-0.54 (BEAKER) (test code = 416) BASOPHILS ABSOLUTE COUNT (BEAKER) 0.07 K/ L 0.01-0.08 (test code = 417) IMMATURE GRANULOCYTES-RELATIVE 1 % 0-1 PERCENT (BEAKER) (test code = 2802) EOSINOPHIL SMEAR, [id number] 22:19:00 Test Item Value Reference Range Interpretation Comments EOSINOPHIL SMEAR, URINE (BEAKER) No EOS seen No EOS seen (test code = 7131) URINALYSIS W/ [id number] 22:13:00 Test Item Value Reference Range Interpretation Comments COLOR (BEAKER) (test code = 470) Yellow CLARITY (BEAKER) (test code = 469) Clear SPECIFIC GRAVITY UA (BEAKER) (test 1.025 1.001-1.035 code = 468) PH UA (BEAKER) (test code = 467) 5.5 5.0-8.0 PROTEIN UA (BEAKER) (test code = 20 mg/dL Negative A 464) GLUCOSE UA (BEAKER) (test code = 70 mg/dL Negative A 365) KETONES UA (BEAKER) (test code = Negative Negative 371) BILIRUBIN UA (BEAKER) (test code = Negative Negative 462) BLOOD UA (BEAKER) (test code = 461) Negative Negative NITRITE UA (BEAKER) (test code = Negative Negative 465) LEUKOCYTE ESTERASE UA (BEAKER) Negative Negative (test code = 466) UROBILINOGEN UA (BEAKER) (test code 3.0 mg/dL 0.2-1.0 H = 463) RBC UA (BEAKER) (test code = 519) 0 /HPF WBC UA (BEAKER) (test code = 520) 2 /HPF BACTERIA (BEAKER) (test code = 517) Rare MUCUS (BEAKER) (test code = 1574) Few SQUAMOUS EPITHELIAL (BEAKER) (test 1 /HPF code = 516) SOURCE(BEAKER) (test code = 2795) SODIUM, RANDOM [id number] 21:38:00 Test Item Value Reference Range Interpretation Comments SODIUM URINE (BEAKER) (test code = < meq/L 243) Reference Range: No NormalsPROTEIN, RANDOM [id number] 21:38:00 Test Item Value Reference Range Interpretation Comments PROTEIN, URINE (BEAKER) (test code = 15 mg/dL 0-14 H 1569) CREATININE, RANDOM [id number] 21:38:00 Test Item Value Reference Range Interpretation Comments CREATININE URINE (BEAKER) (test 173.4 mg/dL code = 375) Reference Range: No NormalsRAD, FOOT, 2 VIEWS, [id number] 13:59:00Reason for exam:->Pain and swelling of left foot after fall.FINAL REPORT Two views left foot Discussion: There is hallux valgus with degen erative changes. No visible acute fracture, dislocation, destructive lesion. Soft tissues are unremarkable. Signed: Darren Ariza Verified Date/Time: 05/09/2018 13:59:01 Reading Location: [facility] C0W Consult Reading Room PUL PERF IMAGING, PARTIC, [id number] 12:03:00FINAL REPORT PROCEDURE: V/Q LUNG SCAN CPT CODE: 40177 INDICATION: Acute chest pain, PE suspected, dyspnea, syncope, paroxysmal atrial fibrillation PROTOCOL: 10.0 mCi of Xe-133 gas was administered by inhalation. Single breath and rebreathing/washout images were obtained in the anterior and the posterior projections. 4.38 mCi of Tc-99m MAA was then injected intravenously, and static perfusion images were obtained in multiple projections. FINDINGS: Joey tilation: Initial tracer distribution is normal. Washout mildly delayed. Perfusion: Tracer distribution is very mildly heterogeneous. IMPRESSION: Very low probability of acute pulmonary embolization. Signed: Leticia Pimentel MDReport Verified Date/Time: 05/09/2018 12:03:05 ReadingLocation: [facility] [address] [facility] Reading Room FL, ESOPH, SWALLOW FUNCTION, WITH CINE OR [id number] 11:00:00Reason for exam:->chest painFINAL REPORT Esophagram History: [...] Verified Date/Time: 0 05/09/2018 11:00:37 Reading Location: [facility] C013X [facility] Consult Reading Room HEMOGLOBIN [id number] 10:45:00 Test Item Value Reference Range Interpretation Comments HEMOGLOBIN A1C (BEAKER) (test code = 6.3 % 4.3-6.1 H 368) BASIC METABOLIC [id number] 08:43:00 Test Item Value Reference Range Interpretation Comments SODIUM (BEAKER) 138 meq/L 136-145 (test code = 381) POTASSIUM (BEAKER) 3.8 meq/L 3.5-5.1 Specimen slightly (test code = 379) hemolyzed CHLORIDE (BEAKER) 104 meq/L 98-107 (test code = 382) CO2 (BEAKER) (test 24 meq/L 22-29 code = 355) BLOOD UREA NITROGEN 35 mg/dL 7-21 H (BEAKER) (test code = 354) CREATININE (BEAKER) 1.39 mg/dL 0.57-1.25 H Specimen slightly (test code = 358) hemolyzed GLUCOSE RANDOM 124 mg/dL 70-105 H (BEAKER) (test code = 652) CALCIUM (BEAKER) 9.2 mg/dL 8.4-10.2 (test code = 697) EGFR (BEAKER) (test 52 mL/min/1.73 ESTIMA JUAREZ GFR IS code = 1092) sq m NOT ACCURATE CREATININE CLEARANCE IN PREDICTING GLOMERULAR FILTRATION RATE . ESTIMATED GFR I S NOT APPLICABLE FOR DIALYSIS PATIEN TS. Re-draw per labLIPID [id number] 08:42:00 Test Item Value Reference Range Interpretation Comments TRIGLYCERIDES (BEAKER) 161 mg/dL Speci men slightly (test code = 540) hemolyzed CHOLESTEROL (BEAKER) 111 mg/dL Specime n slightly (test code = 631) hemolyzed HDL CHOLESTEROL (BEAKER) 39 mg/dL (test code = 976) LDL CHOLESTEROL 40 mg/dL CALCULATED (BEAKER) (test code = 633) Triglyceride Reference Range: Low Risk <150 Borderline 150-199 High Risk 200-499 Very High Risk >=500Cholesterol Reference Range: Low Risk <200 Borderline 200-239 High Risk >240HDL Cholesterol Reference Range: Low Risk >=60 High Risk <40LDL Cholesterol Reference Range: Optimal <100 Near Optimal 100-129 Borderline 130-159 High 160-189 Very High >=190LITHIUM [id number] 08:31:00 Test Item Value Reference Range Interpretation Comments LITHIUM LEVEL (BEAKER) (test code 0.4 mmol/L 0.8-1.2 L = 630) RAPID DRUG SCREEN, [id number] 07:54:00 Test Item Value Reference Range Interpretation Comments BARBITURATE URINE (BEAKER) (test Negative Negative code = 725) BENZODIAZEPINE SCREEN URINE (BEAKER) Positive Negative A (test code = 726) COCAINE (METAB.) SCREEN (BEAKER) Negative Negative (test code = 1164) METHADONE SCREEN (BEAKER) (test code Negative Negative = 1436) OPIATE SCREEN URINE (BEAKER) (test Positive Negative A code = 734) CANNABINOID SCREEN URINE (BEAKER) Negative Negative (test code = 727) AMPH/METHAMPH SCREEN (BEAKER) (test Negative Negative code = 1438) PHENCYCLIDINE SCREEN URINE (BEAKER) Negative Negative (test code = 608) OXYCODONE SCREEN URINE (BEAKER) Negative Negative (test code = 2761) DRUG CUTOFF CONC.Cocaine 300 ng/mL Cannabinoid 50 ng/mL Benzodiazepine 200 ng/mLBarbiturate 200 ng/mLPhencyclidine 25 ng/mLOpiate 300 ng/mLMethadone 300 ng/mLAmphetamine/ 1000 ng/mL MethamphetamineOxycodone 300 ng/mLThis assay provides an unconfirmed qualitative test result for the clinical management of patients in emergency situations. Chain of custody not maintained. Some akss-otj-nhyplzn medications, as well as adulterants, may cause inaccurate results. Clinical correlation should be applied. A more comprehensive drug screen or confirmation of a detected drug may be performed upon request.CREATINE KINASE (CK), TOTAL AND [id number] 07:47:00 Test Item Value Reference Range Interpretation Comments CREATINE KINASE TOTAL (BEAKER) 161 U/L 29-200 (test code = 380) CREATINE KINASE-MB (BEAKER) (test 4.9 ng/mL 0.0-6.6 code = 750) CREATINE KINASE-MB INDEX (BEAKER) 3.0 % (test code = 395) CK-MB Reference Range:<6.7 Normal6.7-10.0 Borderline>10.0 AbnormalTROPONIN [id number] 07:47:00 Test Item Value Reference Range Interpretation Comments TROPONIN I (BEAKER) (test code = 0.04 ng/mL 0.00-0.03 H 397) Troponin I (TnI) levels must be interpreted [...] acute neurological disease, and persistent tachyarrhythmia.BASIC METABOLIC [id number] 04:56:00 Test Item Value Reference Range Interpretation Comments SODIUM (BEAKER) 139 meq/L 136-145 (test code = 381) POTASSIUM (BEAKER) 3.4 meq/L 3.5-5.1 L (test code = 379) CHLORIDE (BEAKER) 105 meq/L 98-107 (test code = 382) CO2 (BEAKER) (test 25 meq/L 22-29 code = 355) BLOOD UREA NITROGEN 38 mg/dL 7-21 H (BEAKER) (test code = 354) CREATININE (BEAKER) 1.35 mg/dL 0.57-1.25 H (test code = 358) GLUCOSE RANDOM 140 mg/dL 70-105 H (BEAKER) (test code = 652) CALCIUM (BEAKER) 8.9 mg/dL 8.4-10.2 (test code = 697) EGFR (BEAKER) (test 54 mL/min/1.73 ESTIMA JUAREZ GFR IS code = 1092) sq m NOT ACCURATE CREATININE CLEARANCE IN PREDICTING GLOMERULAR FILTRATION RATE . ESTIMATED GFR I S NOT APPLICABLE FOR DIALYSIS PATIEN TS. CBC (HEMOGRAM ONLY)2018-05-09 04:38:00 Test Item Value Reference Range Interpretation Comments WHITE BLOOD CELL COUNT (BEAKER) 15.8 K/ L 3.5-10.5 H (test code = 775) RED BLOOD CELL COUNT (BEAKER) 4.80 M/ L 4.63-6.08 (test code = 761) HEMOGLOBIN (BEAKER) (test code = 14.5 GM/DL 13.7-17.5 410) HEMATOCRIT (BEAKER) (test code = 44.0 % 40.1-51.0 411) MEAN CORPUSCULAR VOLUME (BEAKER) 91.7 fL 79.0-92.2 (test code = 753) MEAN CORPUSCULAR HEMOGLOBIN 30.2 pg 25.7-32.2 (BEAKER) (test code = 751) MEAN CORPUSCULAR HEMOGLOBIN CONC 33.0 GM/DL 32.3-36.5 (BEAKER) (test code = 752) RED CELL DISTRIBUTION WIDTH 14.2 % 11.6-14.4 (BEAKER) (test code = 412) PLATELET COUNT (BEAKER) (test 238 K/CU MM 150-450 code = 756) MEAN PLATELET VOLUME (BEAKER) 11.5 fL 9.4-12.4 (test code = 754) NUCLEATED RED BLOOD CELLS 0 /100 WBC 0-0 (BEAKER) (test code = 413) CT, BRAIN, WITHOUT [id number] 21:00:00FINAL REPORT CT, BRAIN, WITHOUT CONTRAST INDICATION: [...] MDReport Verified Date/Time: 05/08/2018 21:00:20 Reading Location: [address] Reading Room B-TYPE NATRIURETIC FACTOR (BNP)2018-05-08 19:03:00 Test Item Value Reference Range Interpretation Comments B-TYPE NATRIURETIC PEPTIDE (BEAKER) 254 pg/mL 0-100 H (test code = 700) CREATINE KINASE (CK), TOTAL AND [id number] 19:02:00 Test Item Value Reference Range Interpretation Comments CREATINE KINASE TOTAL (BEAKER) 150 U/L 29-200 (test code = 380) CREATINE KINASE-MB (BEAKER) (test 5.5 ng/mL 0.0-6.6 code = 750) CREATINE KINASE-MB INDEX (BEAKER) 3.7 % (test code = 395) CK-MB Reference Range:<6.7 Normal6.7-10.0 Borderline>10.0 AbnormalTROPONIN [id number] 19:02:00 Test Item Value Reference Range Interpretation Comments TROPONIN I (BEAKER) (test code = 0.06 ng/mL 0.00-0.03 H 397) Troponin I (TnI) levels must be interpreted [...] acute neurological disease, and persistent tachyarrhythmia.BASIC METABOLIC [id number] 18:32:00 Test Item Value Reference Range Interpretation Comments SODIUM (BEAKER) 137 meq/L 136-145 (test code = 381) POTASSIUM (BEAKER) 3.9 meq/L 3.5-5.1 (test code = 379) CHLORIDE (BEAKER) 102 meq/L 98-107 (test code = 382) CO2 (BEAKER) (test 24 meq/L 22-29 code = 355) BLOOD UREA NITROGEN 35 mg/dL 7-21 H (BEAKER) (test code = 354) CREATININE (BEAKER) 1.56 mg/dL 0.57-1.25 H (test code = 358) GLUCOSE RANDOM 119 mg/dL 70-105 H (BEAKER) (test code = 652) CALCIUM (BEAKER) 9.3 mg/dL 8.4-10.2 (test code = 697) EGFR (BEAKER) (test 46 mL/min/1.73 ESTIMA JUAREZ GFR IS code = 1092) sq m NOT ACCURATE CREATININE CLEARANCE IN PREDICTING GLOMERULAR FILTRATION RATE . ESTIMATED GFR I S NOT APPLICABLE FOR DIALYSIS PATIEN TS. CBC W/PLT COUNT & AUTO [id number] 18:28:00 Test Item Value Reference Range Interpretation Comments WHITE BLOOD CELL COUNT (BEAKER) 17.1 K/ L 3.5-10.5 H (test code = 775) RED BLOOD CELL COUNT (BEAKER) 5.16 M/ L 4.63-6.08 (test code = 761) HEMOGLOBIN (BEAKER) (test code = 15.5 GM/DL 13.7-17.5 410) HEMATOCRIT (BEAKER) (test code = 47.6 % 40.1-51.0 411) MEAN CORPUSCULAR VOLUME (BEAKER) 92.2 fL 79.0-92.2 (test code = 753) MEAN CORPUSCULAR HEMOGLOBIN 30.0 pg 25.7-32.2 (BEAKER) (test code = 751) MEAN CORPUSCULAR HEMOGLOBIN CONC 32.6 GM/DL 32.3-36.5 (BEAKER) (test code = 752) RED CELL DISTRIBUTION WIDTH 14.0 % 11.6-14.4 (BEAKER) (test code = 412) PLATELET COUNT (BEAKER) (test 297 K/CU MM 150-450 code = 756) MEAN PLATELET VOLUME (BEAKER) 11.3 fL 9.4-12.4 (test code = 754) NUCLEATED RED BLOOD CELLS 0 /100 WBC 0-0 (BEAKER) (test code = 413) NEUTROPHILS RELATIVE PERCENT 78 % (BEAKER) (test code = 429) LYMPHOCYTES RELATIVE PERCENT 14 % (BEAKER) (test code = 430) MONOCYTES RELATIVE PERCENT 7 % (BEAKER) (test code = 431) EOSINOPHILS RELATIVE PERCENT 0 % (BEAKER) (test code = 432) BASOPHILS RELATIVE PERCENT 0 % (BEAKER) (test code = 437) NEUTROPHILS ABSOLUTE COUNT 13.35 K/ L 1.78-5.38 H (BEAKER) (test code = 670) LYMPHOCYTES ABSOLUTE COUNT 2.35 K/ L 1.32-3.57 (BEAKER) (test code = 414) MONOCYTES ABSOLUTE COUNT (BEAKER) 1.23 K/ L 0.30-0.82 H (test code = 415) EOSINOPHILS ABSOLUTE COUNT 0.00 K/ L 0.04-0.54 L (BEAKER) (test code = 416) BASOPHILS ABSOLUTE COUNT (BEAKER) 0.05 K/ L 0.01-0.08 (test code = 417) IMMATURE GRANULOCYTES-RELATIVE 1 % 0-1 PERCENT (BEAKER) (test code = 2801) [id number] 18:15:00 Test Item Value Reference Range Interpretation Comments PARTIAL THROMBOPLASTIN TIME 30.0 seconds 22.5-36.0 (BEAKER) (test code = 760) Prior to initiating heparinXR Fluoroscopy in Imaging per [id number] 12:25:17 Patient: ALHAJI FARAH Date/Time04/05/2018 11:30 CDTReason [...]
--- OUTSIDE RECORDS SUMMARY | 2020-03-29 17:43 | XMS REPORT ---
[...] Problem Atherosclerotic heart disease of I25.10 Active [place] coronary artery without angina pectoris Problem Symptomatic [...]
--- OUTSIDE RECORDS SUMMARY | 2020-03-29 17:43 | XMS REPORT ---
[...] Problem Atherosclerotic heart disease of I25.10 Active [place] coronary artery without angina pectoris Problem Symptomatic [...] End Status Dosage System Date Date Ipratropium [place] ND 93931600791 0.02 % March 07, Active as Inhalation 1 2018 directed vial Three times a day Dulera ND 98360064198 100-5 MCG/ACT Active 2 puff s Inhalation Twice a day Amitriptyline HCl ND 73087571997 50 MG Orally Activ e 1 tablet Once a day Lorazepam ND 94102838177 0.5 MG Orally Active 1 ta blet Once a day prn as needed anxiety /panic attacks Citalopram ND 25851206940 20 MG Orally Active 1 ta blet Hydrobromide Once a day HydrALAZINE HCl ND 69418944322 25 MG Orally Active 1 tablet every 12 hrs with food Hydrochlorothiazide ND 60670699700 25 MG Orally Act alberto 1 tablet Once a day in the morning Albuterol Sulfate [facility] 77458283063 (2.5 MG/3ML) March 07, Activ e inhale 1 0.083% 2018 vial by mouth via nebulizer 3 times a day Gabapentin ND 70162299917 600 MG Orally Active 1 t ablet three times a day Atorvastatin Calcium ND 03705474352 20 MG Orally Ac tive 1 tablet Once a day [place] Carbonate ND 49002773075 600 MG Orally Acti ve 1 capsule Once a day at bedtime Carvedilol ND 88151844733 25 MG Orally Active as directed [place] ND 44189274996 10-325 MG Active 1 tablet Orally every 6 as needed hrs Isosorbide ND 80878979075 30 MG Orally Active 1 ta blet Mononitrate ER Once a day in the morning Amlodipine Besylate ND 89685330986 10 MG Orally Aug 22, Act alberto 1 tablet Once a day 2017 Clonidine HCl ND 91433730352 0.2 MG Orally March Active 1 tablet twice a day , twice x 1 2018 week then 1 tablet Amiodarone HCl ND 34072539547 200 MG Orally Active 1 tablet Once a day Ranolazine ER ND 66504854678 500 MG Orally Active 2 tablet Twice a day Lisinopril ND 01998051953 20 MG Orally Active 1 ta blet Once a day Zofran ND 46259950653 4 MG Orally December Active as neede d every 8hrs prn 19, for nause a nausea 2019 Aspir-81 [facility] 24937604755 81 MG Orally Active 1 tabl et Once a day Losartan Potassium [facility] 95137911646 25 MG Orally Acti ve 1 tablet Once a day Results No Known Results Summary Purpose eClinicalWorks Submission
--- OUTSIDE RECORDS SUMMARY | 2020-03-29 17:44 | XMS REPORT ---
[...] Problem Atherosclerotic heart disease of I25.10 Active [place] coronary artery without angina pectoris Problem Symptomatic [...] Dosage System Date Date Amitriptyline HCl ND 65512407527 50 MG Orally Activ e 1 tablet Once a day Dulera ND 81819089652 100-5 MCG/ACT Active 2 puff s Inhalation Twice a day Amiodarone HCl ND 13180493666 200 MG Orally Active 1 tablet Once a day -81 ND 87856123034 81 MG Orally Active 1 tabl et Once a day Isosorbide ND 96627969583 30 MG Orally Active 1 ta blet Mononitrate ER Once a day in the morning Albuterol Sulfate ND 78679056523 (2.5 MG/3ML) March 07, Activ e inhale 1 0.083% 2018 vial by mouth via nebulizer 3 times a day Amlodipine Besylate ND 84174079575 10 MG Orally Aug 22, Act alberto 1 tablet Once a day 2017 Zofran ND 81232775939 4 MG Orally December Active as neede d every 8hrs prn , for nause a nausea 2019 [place] Carbonate ND 43282935409 600 MG Orally Acti ve 1 capsule Once a day at bedtime Atorvastatin Calcium ND 42588703865 20 MG Orally Ac tive 1 tablet Once a day Losartan Potassium ND 34861689286 25 MG Orally Acti ve 1 tablet Once a day Gabapentin ND 27662464348 600 MG Orally Active 1 t ablet three times a day Ipratropium [place] ND 37216728393 0.02 % March 07, Active as Inhalation 1 2018 directed vial Three times a day Carvedilol ND 50798717716 25 MG Orally Active as directed HydrALAZINE HCl ND 84787660288 25 MG Orally Active 1 tablet every 12 hrs with food Citalopram ND 11922008050 20 MG Orally Active 1 ta blet Hydrobromide Once a day Lorazepam ND 97616943046 0.5 MG Orally Active 1 ta blet Once a day prn as needed anxiety /panic attacks [place] [facility] 68727796812 10-325 MG Active 1 tablet Orally every 6 as needed hrs Clonidine HCl [facility] 63907687202 0.2 MG Orally March Active 1 tablet twice a day 27, twice x 1 2017 week then [address] [facility] 17181339590 25 MG Orally Act alberto 1 tablet Once a day in the morning Ranolazine ER [facility] 56348282890 500 MG Orally Active 2 tablet Twice a day Lisinopril [facility] 61292033714 20 MG Orally Active 1 ta blet Once a day Results No Known Results Summary Purpose eClinicalWorks Submission
[2020-03-29] MEDS ORDERED: ONDANSETRON 4 MG/2 ML VIAL ONE ×2 (18:01→18:04)
[2020-03-29] MEDS ORDERED: MORPHINE 4 MG/ML SYR ONE ×3 (18:01→20:19)
[2020-03-29] MEDS ORDERED: LABETALOL 20 MG/4ML SYRINGE IV ONE ×2 (18:01→18:05)
[2020-03-29] MEDS ORDERED: NITROGLYCERIN/D5W 50 MG/250 ML BTL IV ONE (18:02)
[2020-03-29 18:06] LABS: Absolute Lymphocytes (CBC) 5.4 K/uL (0.7-4.9); Basophils % 0.7 % (0-1.3); Hematocrit 44.5 % (39.6-49.0); Lymphocytes % 31.9 % (15.3-44.8); MPV 10.5 fL (7.6-11.3); RBC Red Blood Cell Count 4.85 M/uL (4.33-5.43)
[2020-03-29 18:11] LABS: Protime INR 0.93
--- NOTE | 2020-03-29 18:11 | RAD REPORT ---
EXAM DESCRIPTION: Jose Single View03/29/2020 5:57 pm CLINICAL HISTORY: Chest pain COMPARISON: February 2020 FINDINGS: The lungs appear clear of acute infiltrate. The heart is normal size. Postsurgical change s involve the chest IMPRESSION: No acute abnormalities displayed
--- NOTE | 2020-03-29 18:32 | RAD REPORT ---
EXAM DESCRIPTION: CT - Angio Aorta For Dissection - 03/29/2020 6:15 pm CLINICAL HISTORY: . Chest and abd pain COMPARISON: 02/2020 TECHNIQUE: Computed tomography angiography of the chest, abdomen pelvis were obtained. 100 cc Isovue 370 was administered intravenously. Coronal and sagittal reconstruction were performed. MIP 3D reconstruction was performed All CT scans are performed using dose optimization technique as appropriate and may include automated exposure control or mA/KV adjustment according to patient size. FINDINGS: An aortic dissection is not seen. An aortic aneurysm is not displayed. The celiac, SMA and KEITH are patent . A lung consolidation is not present. A pericardial effusion is not seen. A pleural effusion is not n oted. Centrilobular and paraseptal emphysema The liver,spleen, pancreas adrenals kidneys demonstrate no significant abnormality. Neurostimulator device in place. No evidence of diverticulitis . Cholecystectomy Calcified pleural plaque . . Atherosclerotic disease Prostate gland is enlarged and abuts the posterior bladder IMPRESSION: Negative for an aortic dissection.
[2020-03-29] MEDS ORDERED: HYDROMORPHONE HCL 1 MG/ML INJ ONE (18:37)
[2020-03-29 18:41] LABS: BUN Blood Urea Nitrogen 30 mg/dL (7-18); Bicarbonate 23 mmol/L (21-32); Glucose Level 85 mg/dL (74-106); Magnesium 2.5 mg/dL (1.8-2.4); NT PRO-BNP 2279 pg/mL (<125); Sodium Level 141 mmol/L (136-145); Troponin (Emerg Dept Use Only) < 0.02 ng/mL (0.0-0.045)
[2020-03-29 18:42] LABS: Potassium 2.9 mmol/L (3.5-5.1)
--- NOTE | 2020-03-29 18:54 | ER ---
Nurse's Notes [facility] Name: Blayne Macias Age: 59 yrs Sex: Male : 1960 Arrival Date: 03/29/2020 Time: 17:27 Bed 8 Private MD: Diagnosis: Chest pain, unspecified;Malignant Hypertension;Abnormal electrocardiogram [ECG] [EKG] Presentation: 03/29 17:33 Chief complaint: EMS states: Chest pain that began at 1530, also reports SOB, nausea ph and diaphoresis, pt hypertensive 200s/120s, SL nitro x 1 given, 324 ASA given. Coronavirus screen: Patient denies a cough. Patient denies shortness of breath or difficulty breathing. Patient denies measured and/or subjective temperature greater than 100.4F prior to today's visit. Patient denies travel on a cruise ship or to a country the [facility] currently lists as an affected area. Patient denies contact with known and/or suspected case of COVID-19. Ebola Screen: No symptoms or risks identified at this time. Initial Sepsis Screen: Does the patient meet any 2 criteria? No. Patient's initial sepsis screen is negative. Does the patient have a suspected source of infection? No. Patient's initial sepsis screen is negative. Risk Assessment: Do you want to hurt yourself or someone else? Patient reports no desire to harm self or others. Onset of symptoms was March 29, 2020. 17:33 Method Of Arrival: EMS: [facility] ph 17:33 Acuity: SENTHIL 2 ph Historical: - Allergies: 17:39 Codeine; ph 17:39 PENICILLINS; ph - PMHx: 17:39 "electrical stimulator"; Atrial Fib; Back pain; Bipolar disorder; CAD; CHF; chronic ph back pain; Cirrhosis; COPD; Hepatitis; High Cholesterol; Hypertension; Pneumonia; - PSHx: 17:39 CABG; back; Cholecystectomy; Appendectomy; ph - Immunization history:: Adult Immunizations unknown. - Family history:: not pertinent. - Social history:: Smoking status: unknown. - Hospitalizations: : The patient was recently seen at [facility]. Screenin:40 Abuse screen: Denies threats or abuse. Denies injuries from another. Nutritional ph screening: No deficits noted. Tuberculosis screening: No symptoms or risk factors identified. Fall Risk None identified. Assessment: 17:35 General: Appears uncomfortable, ill, Behavior is agitated, anxious. Pain: Complains of iw pain in left clavicle, anterior aspect of left upper chest and left breast Pain radiates to neck Pain currently is 9 out of 10 on a pain scale. Neuro: Level of Consciousness is awake, alert, obeys commands, Oriented to person, place, time, situation, Moves all extremities. Full function. Cardiovascular: Reports chest pain, lightheadedness, nausea, shortness of breath, Capillary refill < 3 seconds in bilateral fingers Rhythm is sinus tachycardia. Respiratory: Respiratory effort is even, unlabored, Respiratory pattern is regular, symmetrical. GI: Abdomen is flat, non-distended, Reports nausea. Derm: Skin is intact, Skin is clammy, diaphoretic. Musculoskeletal: Range of motion: intact in all extremities. 18:05 Reassessment: pt transported to Ct via stretcher with myself and pipeline technician, pt remains on iw monitor and Nitro drip. 18:23 Reassessment: pt remains hypertensive, Nitro increased to 25 mcg/min, pain 7/10, pt iw requesting another dose of morphine. 18:44 Reassessment: pain decreased to 6/10 after dilaudid, BP down to 176/99, Nitro drip iw infusing at 25 mcg/min. Vital Signs: 17:33 BP 229 / 126; Pulse 114; Resp 20; Temp 98.0; Pulse Ox 100% on 3 lpm NC; Weight 70.31 kg;ph 18:07 BP 201 / 116; Pulse 103; Resp 20 S; Pulse Ox 100% on R/A; Pain 7/10; iw 18:23 BP 200 / 94; Pulse 93; Resp 22 S; Pulse Ox 100% on R/A; Pain 7/10; iw 18:27 BP 178 / 104; Pulse 96; Resp 20 S; Pulse Ox 100% on 2 lpm NC; iw 18:36 BP 187 / 100; Pulse 96; Resp 20 S; Pulse Ox 100% on 2 lpm NC; iw 18:44 BP 176 / 99; Pulse 100; Resp 20 S; Pulse Ox 100% on 2 lpm NC; Pain 6/10; iw 18:51 BP 176 / 90; Pulse 100; Resp 20; iw 19:01 BP 163 / 94; Pulse 104; Resp 20 S; Pulse Ox 100% on 2 lpm NC; Pain 7/10; iw 19:04 BP 137 / 93; Pulse 100; Resp 18 S; Pulse Ox 100% on 2 lpm NC; iw 19:30 BP 128 / 78; Pulse 98; Resp 17; Pulse Ox 100% ; mg2 20:00 BP 128 / 78; Pulse 98; Resp 18; Pulse Ox 100% on R/A; mg2 20:30 BP 134 / 78; Pulse 100; Resp 18; Pulse Ox 100% on R/A; mg2 21:00 BP 165 / 78; Pulse 101; Resp 18; Pulse Ox 100% on R/A; mg2 ED Course: 17:27 Patient arrived in ED. iw 17:30 Peng Mitchell MD is Attending Physician. rn 17:32 Leida Polanco RN is Primary Nurse. iw 17:36 Triage completed. ph 17:39 Arm band placed on Patient placed in an exam room, on a stretcher, on oxygen, on ph media monitor, on pulse oximetry. 17:45 Maintain EMS IV. Dressing intact. Good blood return noted. Site clean \\T\\ dry. Gauge \\T\\ iw site: 20 LAC. 17:47 Discount Clerk answering service called at [phone]/ per answering service Dr. gabrielle Berrios will be calling us back. 17:57 XRAY Chest (1 view) In Process Unspecified. EDMS 18:07 Inserted saline lock: 18 gauge in right antecubital area, using aseptic technique. dh3 18:16 CT Aorta for Dissection In Process Unspecified. EDMS 18:52 Qing Anders MD is Hospitalizing Provider. rn 19:20 IV discontinued, intact, bleeding controlled, No redness/swelling at site. Pressure rr5 dressing applied, IV infiltrated at right AC. 19:25 Inserted saline lock: 20 gauge in right antecubital area, using aseptic technique. rr5 20:00 Patient has correct armband on for positive identification. mg2 21:00 No provider procedures requiring assistance completed. Patient admitted, IV remains in mg2 place. Administered Medications: 17:50 Drug: morphine 4 mg Route: IVP; Site: left antecubital; iw 19:00 Follow up: Response: No adverse reaction mg2 17:50 Drug: Zofran (Ondansetron) 4 mg Route: IVP; Site: left antecubital; iw 19:00 Follow up: Response: No adverse reaction mg2 18:05 Drug: Nitro Drip - (Nitroglycerin 50 mg, D5W 250 ml) Route: IV; Rate: 5 mcg/min; Site: iw left antecubital; 19:02 Follow up: Rate change 15 mcg/min iw 19:03 Follow up: Rate change 20 mcg/min iw 21:00 Follow up: Response: No adverse reaction; IV Status: Infusion continued upon admission mg2 18:34 Drug: Dilaudid 1 mg Route: IVP; Site: left antecubital; iw 19:00 Follow up: Response: Pain is unchanged, physician notified mg2 19:15 Not Given (Other Intervention Used): Labetalol 5 mg IVP once iw 19:29 Drug: Potassium Chloride 20 mEq Route: IV; Rate: calculated rate; Site: right rr5 antecubital; 21:00 Follow up: Response: No adverse reaction; IV Status: Completed infusion mg2 19:29 Drug: Dilaudid 0.5 mg {Note: rass 0.} Route: IVP; Site: right antecubital; rr5 20:00 Follow up: Response: No adverse reaction; Pain is unchanged, physician notified mg2 20:15 Drug: morphine 4 mg Route: IVP; Site: left antecubital; mg2 20:45 Follow up: Response: No adverse reaction; Marked relief of symptoms mg2 Outcome: 18:54 Decision to Hospitalize by Provider. rn 21:00 Admitted to ICU accompanied by nurse, accompanied by tech, via stretcher, room 2, on mg2 monitor, with chart, Report called to DIANA Flower 21:00 Condition: stable 21:00 Instructed on the need for admit, Demonstrated understanding of instructions. mg2 21:04 Patient left the ED. mg2 Signatures: Dispatcher [employer] EDMS Leida Polanco RN RN Peng Mitchell MD MD rn Hall, Patricia, RN RN Lena Kee [facility] Katarina Gan Michele, RN RN mg2 Nic Hoffman RN RN rr5 Corrections: (The following items were deleted from the chart) 18:36 17:50 Reassessment: pt transported to Ct via stretcher with myself and pipeline technician, pt iw remains on monitor and Nitro drip iw 23:28 17:39 Allergies: Morphine; ph mg2
--- NOTE | 2020-03-29 18:54 | EDPHYS ---
Physician Documentation [facility] Name: Blayne Macias Age: 59 yrs Sex: Male : 1960 Arrival Date: 03/29/2020 Time: 17:27 Bed 8 Private MD: ED Physician Peng Mitchell HPI: 03/29 17:33 This 59 yrs old Male presents to ER via Unassigned with complaints of chest rn pain. 17:33 The patient or guardian reports chest pain that is located primarily in the substernal rn area. Onset: 2 hour(s) ago. The pain radiates to Associated signs and symptoms: Pertinent positives: abdominal pain, diaphoresis, nausea, Pertinent negatives: cough, shortness of breath, syncope, vomiting. The chest pain is described as a pressure. Duration: The patient or guardian reports a single episode, that is still ongoing. Severity of pain: At its worst the pain was moderate in the emergency department the pain is unchanged. The patient has experienced similar episodes in the past. Reports chest pressure, central, radiates to left neck/arm, + diaphoresis, + nausea, not helped with nitro/aspirin, has had this in past, + CABG as well. Reports abd pain present for 1 month, unclear etiology. . Historical: - Allergies: 17:39 Codeine; ph 17:39 PENICILLINS; ph - PMHx: 17:39 "electrical stimulator"; Atrial Fib; Back pain; Bipolar disorder; CAD; CHF; chronic ph back pain; Cirrhosis; COPD; Hepatitis; High Cholesterol; Hypertension; Pneumonia; - PSHx: 17:39 CABG; back; Cholecystectomy; Appendectomy; ph - Immunization history:: Adult Immunizations unknown. - Family history:: not pertinent. - Social history:: Smoking status: unknown. - Hospitalizations: : The patient was recently seen at [facility]. ROS: 17:33 Constitutional: Negative for fever, chills, and weight loss, Eyes: Negative for injury, rn pain, redness, and discharge, Neck: Negative for injury, pain, and swelling, Cardiovascular: Negative for palpitations, and edema, Respiratory: Negative for cough, wheezing Abdomen/GI: Negative for vomiting, diarrhea, and constipation, MS/Extremity: Negative for injury and deformity, Skin: Negative for injury, rash, and discoloration, Neuro: Negative for headache, weakness, numbness, tingling, and seizure. Exam: 17:33 Constitutional: Thin male, tremulous, appears uncomfortable/anxious. Head/Face: rn Normocephalic, atraumatic. Cardiovascular: tachycardic, regular, equal distal pulses Respiratory: Speaking full sentences, mild tachypnea but clear Abdomen/GI: soft, mild periumbilical tenderness, no reobund/masses Skin: Warm, dry MS/ Extremity: Pulses equal, no cyanosis. Neurovascular intact. Full, normal range of motion. Equal circumference. Neuro: Awake and alert, GCS 15, oriented to person, place, time, and situation. Cranial nerves II-XII grossly intact. Motor strength 5/5 in all extremities. Sensory grossly intact. Vital Signs: 17:33 BP 229 / 126; Pulse 114; Resp 20; Temp 98.0; Pulse Ox 100% on 3 lpm NC; Weight 70.31 kg;ph 18:07 BP 201 / 116; Pulse 103; Resp 20 S; Pulse Ox 100% on R/A; Pain 7/10; iw 18:23 BP 200 / 94; Pulse 93; Resp 22 S; Pulse Ox 100% on R/A; Pain 7/10; iw 18:27 BP 178 / 104; Pulse 96; Resp 20 S; Pulse Ox 100% on 2 lpm NC; iw 18:36 BP 187 / 100; Pulse 96; Resp 20 S; Pulse Ox 100% on 2 lpm NC; iw 18:44 BP 176 / 99; Pulse 100; Resp 20 S; Pulse Ox 100% on 2 lpm NC; Pain 6/10; iw 18:51 BP 176 / 90; Pulse 100; Resp 20; iw 19:01 BP 163 / 94; Pulse 104; Resp 20 S; Pulse Ox 100% on 2 lpm NC; Pain 7/10; iw 19:04 BP 137 / 93; Pulse 100; Resp 18 S; Pulse Ox 100% on 2 lpm NC; iw 19:30 BP 128 / 78; Pulse 98; Resp 17; Pulse Ox 100% ; mg2 20:00 BP 128 / 78; Pulse 98; Resp 18; Pulse Ox 100% on R/A; mg2 20:30 BP 134 / 78; Pulse 100; Resp 18; Pulse Ox 100% on R/A; mg2 21:00 BP 165 / 78; Pulse 101; Resp 18; Pulse Ox 100% on R/A; mg2 MDM: 17:30 Patient medically screened. 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 rn 17:48 ED course: Initial and repeat ECG reading Acute [place], only single ST elevation in lead rn V3, but new twave inversions inferolateral, paging cardiology. . 17:54 ED course: During chart review, patient admitted last month, had abnormal stress test rn and cath was recommended, unable to perform at that time and was supposed to get outpatient cath. . 18:04 ED course: Consulted Dr. enamorado, will see patient in hospital, plan is to cath during rn hospitalization. Meds given, nitro started, state ct aorta ordered, if neg will admit ot hospitalist for cardiology eval and cath.. 18:51 Differential diagnosis: acute myocardial infarction, acute pericarditis, coronary rn artery disease pleurisy, pneumothorax, stable angina, thoracic aortic disection, unstable angina. The patient was not given aspirin in the Emergency Department. Administered by EMS. Data reviewed: vital signs, nurses notes, lab test result(s), EKG, radiologic studies, CT scan, and as a result, I will admit patient. Counseling: I had a detailed discussion with the patient and/or guardian regarding: the historical points, exam findings, and any diagnostic results supporting the discharge/admit diagnosis, lab results, radiology results, the need for further work-up and treatment in the hospital. ED course: admitted to Dr cruz for chest pain, neg aorta scan, neg troponin, improved symptoms with nitro drip, pain meds, and BP now 176/90. . 03/29 17:31 Order name: Basic Metabolic Panel; Complete Time: 18:47 rn 03/29 17:31 Order name: CBC with Diff; Complete Time: 18:54 rn 03/29 17:31 Order name: Magnesium; Complete Time: 18:47 rn 03/29 17:31 Order name: NT PRO-BNP; Complete Time: 18:47 rn 03/29 17:31 Order name: PT-INR; Complete Time: 18:54 rn 03/29 17:31 Order name: Troponin (emerg Dept Use Only); Complete Time: 18:47 rn 03/29 17:31 Order name: XRAY Chest (1 view); Complete Time: 18:34 rn 03/29 17:33 Order name: CT Aorta for Dissection; Complete Time: 18:34 rn 03/29 18:34 Order name: CREATININE WHOLE BLOOD; Complete Time: 18:47 EDMT 03/29 19:37 Order name: Lipid Profile EDMT 03/29 19:37 Order name: Lipid Profile EDMT 03/29 19:37 Order name: Troponin I EDMT 03/29 19:37 Order name: Troponin I [facility] 03/29 19:37 Order name: Troponin I [facility] 03/29 17:31 Order name: EKG; Complete Time: 17:34 rn 03/29 17:31 Order name: Cardiac monitoring; Complete Time: 18:25 rn 03/29 17:31 Order name: EKG - Nurse/Tech; Complete Time: 18:25 rn 03/29 17:31 Order name: IV Saline Lock; Complete Time: 18:25 rn 03/29 17:31 Order name: Labs collected and sent; Complete Time: 18:25 rn 03/29 17:31 Order name: O2 Per Protocol; Complete Time: 18:25 rn 03/29 19:37 Order name: Heart Healthy EDMT 03/29 19:37 Order name: Echo with Doppler EDMT 03/29 17:31 Order name: O2 Sat Monitoring; Complete Time: 18:25 rn Administered Medications: 17:50 Drug: morphine 4 mg Route: IVP; Site: left antecubital; iw 19:00 Follow up: Response: No adverse reaction mg2 17:50 Drug: Zofran (Ondansetron) 4 mg Route: IVP; Site: left antecubital; iw 19:00 Follow up: Response: No adverse reaction mg2 18:05 Drug: Nitro Drip - (Nitroglycerin 50 mg, D5W 250 ml) Route: IV; Rate: 5 mcg/min; Site: iw left antecubital; 19:02 Follow up: Rate change 15 mcg/min iw 19:03 Follow up: Rate change 20 mcg/min iw 21:00 Follow up: Response: No adverse reaction; IV Status: Infusion continued upon admission mg2 18:34 Drug: Dilaudid 1 mg Route: IVP; Site: left antecubital; iw 19:00 Follow up: Response: Pain is unchanged, physician notified mg2 19:15 Not Given (Other Intervention Used): Labetalol 5 mg IVP once iw 19:29 Drug: Potassium Chloride 20 mEq Route: IV; Rate: calculated rate; Site: right rr5 antecubital; 21:00 Follow up: Response: No adverse reaction; IV Status: Completed infusion mg2 19:29 Drug: Dilaudid 0.5 mg {Note: rass 0.} Route: IVP; Site: right antecubital; rr5 20:00 Follow up: Response: No adverse reaction; Pain is unchanged, physician notified mg2 20:15 Drug: morphine 4 mg Route: IVP; Site: left antecubital; mg2 20:45 Follow up: Response: No adverse reaction; Marked relief of symptoms mg2 Disposition: 18:51 Critical Care:. rn Disposition: 03/29/20 18:54 Hospitalization ordered by Qing Cruz for Inpatient Admission. Preliminary diagnosis are Chest pain, unspecified, Malignant Hypertension, Abnormal electrocardiogram [ECG] [EKG]. - Bed requested for Intensive Care Unit. - Status is Inpatient Admission. mg2 - Condition is Fair. - Problem is new. - Symptoms have improved. Critical care time excluding procedures: 18:51 Critical care time: Bedside Care: 30 minutes, Consultation: 5 minutes. Total time: 35 rn minutes Signatures: Dispatcher [employer] EDMS Monika Rios RN RN Leida Polanco RN RN Peng Mitchell MD MD rn Hall, Patricia, RN RN Praful Aguilar RN RN [facility] Nic Hoffman, RN RN rr5 Corrections: (The following items were deleted from the chart) 19:46 18:54 Hospitalization Ordered by Qing Cruz MD for Inpatient Admission. Preliminary mw diagnosis is Chest pain, unspecified; Malignant Hypertension; Abnormal electrocardiogram [ECG] [EKG]. Bed requested for Intensive Care Unit. Status is Inpatient Admission. Condition is Fair. Problem is new. Symptoms have improved. rn 21:04 19:46 03/29/2020 18:54 Hospitalization Ordered by Qing Cruz MD for Inpatient mg2 Admission. Preliminary diagnosis is Chest pain, unspecified; Malignant Hypertension; Abnormal electrocardiogram [ECG] [EKG]. Bed requested for Intensive Care Unit. Status is Inpatient Admission. Condition is Fair. Problem is new. Symptoms have improved. mw 23:28 17:39 Allergies: Morphine; ph mg2
[2020-03-29] MEDS ORDERED: HYDROMORPHONE HCL 0.5 MG/0.5 ML INJ ONE (19:21)
[2020-03-29] MEDS ORDERED: KCL 20 MEQ/100 mL IVPB 20 MEQ/100 ML BAG IV ONE (19:21)
[2020-03-29] MEDS ORDERED: NA CHLORIDE 0.9% 250 ML ONE ×2 (19:21→23:07)
[2020-03-29] MEDS ORDERED: CLOPIDOGREL 75 MG TABLET PO ONE (19:32)
[2020-03-29] MEDS ORDERED: ACETAMINOPHEN 500 MG TAB PO PRN (19:32)
[2020-03-29] MEDS ORDERED: NITROGLYCERIN/D5W 50 MG/250 ML BTL IV PRN (19:32)
[2020-03-29] MEDS ORDERED: MORPHINE 4 MG/ML SYR IV PRN (19:32)
[2020-03-29] MEDS ORDERED: METOPROLOL TAR 50 MG TAB PO SCH (21:00)
[2020-03-29] MEDS ORDERED: POTASSIUM CL SA 10 MEQ TAB PO ONE (22:02)
[2020-03-29] MEDS ORDERED: NICOTINE 21 MG/PAT TD ONE ×2 (22:20→22:40)
[2020-03-29] MEDS ORDERED: MORPHINE 4 MG/ML SYR IV ONE (22:20)
[2020-03-29] MEDS ORDERED: KCL 20 MEQ/100 mL IVPB 20 MEQ/100 ML BAG IV SCH (23:00)
[2020-03-29] MEDS: ENOXAPARIN 60 MG/0.6 ML SQ SCH (23:04)
[2020-03-29] MEDS ORDERED: LORazepam 2 MG/ML VIAL IV ONE (23:25)
[2020-03-30] MEDS: LITHIUM CARBONATE 300 MG TAB PO SCH ×2 (00:29→21:30)
[2020-03-30] MEDS ORDERED: LITHIUM CARBONATE 300 MG TAB ONE (00:32)
[2020-03-30] MEDS ORDERED: CYCLOBENZAPRINE 10 MG TAB PO PRN (04:37)
[2020-03-30] MEDS ORDERED: HYDROCODONE/APAP 10/325 TAB PO PRN (04:37)
[2020-03-30 05:50] LABS: Troponin I 0.12 ng/mL (0.0-0.045)
[2020-03-30] MEDS ORDERED: AMIODARONE HCL 200 MG TAB PO ONE (06:00)
[2020-03-30] MEDS: MORPHINE 4 MG/ML SYR IV PRN ×6 (06:53→21:27)
[2020-03-30 07:13] LABS: Potassium 3.8 mmol/L (3.5-5.1)
[2020-03-30] MEDS: CITALOPRAM 10 MG TABLET PO SCH (08:04)
[2020-03-30] MEDS: METOPROLOL TAR 50 MG TAB PO SCH ×2 (08:05→21:27)
[2020-03-30] MEDS: CLOPIDOGREL 75 MG TABLET PO SCH (08:05)
[2020-03-30] MEDS: PANTOPRAZOLE 40MG TABLET PO SCH (08:08)
[2020-03-30] MEDS: ASPIRIN EC 81 MG TAB PO SCH (08:09)
[2020-03-30] MEDS: ISOSORBIDE MONO 10 MG TAB PO SCH (08:10)
--- NOTE | 2020-03-30 08:22 | P.HP ---
Certification for Inpatient Patient admitted to: Inpatient With expected LOS: >2 Midnights Patient will require the following post-hospital care: None Practitioner: I am a practitioner with admitting privileges, knowledge of patient current condition, hospital course, and medical plan of care. Services: Services provided to patient in accordance with Admission requirements found in Title 42 Section 412.3 of the Code of Federal Regulations Patient History Date of Service: 03/29/20 Reason for admission: Acute myocardial infarction History of Present Illness: Patient is a 59-year-old gentleman who came to the hospital with chest discomfort. Pain was mainly in the sternal region. Patient is a history of Coronary artery disease. Patient had a stress test done a couple weeks ago which she states was positive. His schedule to get a heart catheterization. He started having chest pain once again and became very diaphoretic so his family brought him into the hospital for further evaluation. In the emergency room patient was found have an elevated troponin and he will be admitted to ICU with a nitro drip and anti coagulation. Allergies Penicillins Allergy (Intermediate, Verified 04/15/19 21:16) Hives/Rash codeine [From Tylenol-Codeine] Allergy (Verified 04/15/19 21:16) Itching Home Medications: Amiodarone HCl 100 mg PO BEDTIME 03/29/20 Amlodipine [Norvasc] 10 mg PO DAILY 03/29/20 Aspirin 81 mg PO DAILY 03/29/20 Atorvastatin Calcium [Lipitor] 20 mg PO BEDTIME 03/29/20 Citalopram [Celexa] 20 mg PO DAILY 03/29/20 Citalopram [Celexa] 40 mg PO DAILY 03/29/20 Clopidogrel Bisulfate [Plavix] 75 mg PO DAILY 03/29/20 Cyclobenzaprine [Flexeril] 10 mg PO TID PRN 03/29/20 Hydralazine HCl [Apresoline] 50 mg PO TIDP PRN 03/29/20 Hydrocodone 10/APAP 325 [[place] 10/325] 1 tab PO Q8HP PRN 03/29/20 Isosorbide Mononitrate [Ismo] 2 tab PO DAILY 03/29/20 [place] Carbonate [Lithotabs 300MG] 600 mg PO BEDTIME 03/29/20 Losartan Potassium [Cozaar] 50 mg PO BID 03/29/20 Mometasone/Formoterol [Dulera 100 Mcg/5 Mcg Inhaler] 1 puff IH BID 03/29/20 Nitroglycerin [Nitrostat] 0.4 mg SL [id number] PRN 03/29/20 Pantoprazole [Protonix Tab] 40 mg PO DAILY 03/29/20 Potassium Chloride [Klor-Con] 20 meq PO DAILY 03/29/20 Promethazine Tab [Phenergan] 12.5 mg PO Q6HP PRN 03/29/20 - Past Medical/Surgical History Has patient received pneumonia vaccine in the past: Yes Diabetic: No -: Chronic back pain, Pain management-Dr. Connolly -: HTN -: CAD, CABG times 2 vessels in December 2015 -: COPD -: Exposure to asbestosis -: Bipolar disorder -: Hyperlipidemia -: Severe sleep apnea -: Chronic pain syndrome -: CHF -: afib -: pneumonia -: Right Leg surgery -: Back surgery -: Cholecystectomy -: Cardiac catheterization -: CABG- Double bypass 12/2015 -: Neck Surgery Psychosocial/ Personal History: Single, Children-1, Work-Disabled due to back. - Family History Mother Medical History: Cancer Father Medical History: Heart disease, Cancer - Social History Smoking Status: Current every day smoker Alcohol use: Yes CD- Drugs: No Caffeine use: Yes Place of Residence: Home Review of Systems 10-point ROS is otherwise unremarkable Physical Examination - Vital Signs Temperature: 98.2 F Blood Pressure: 150/88 Pulse: 66 Respirations: 14 Pulse Ox (%): 97 - Physical Exam General: Alert, In no apparent distress, Oriented x3 HEENT: Atraumatic, PERRLA, Mucous membr. moist/pink, EOMI, Sclerae nonicteric Neck: Supple, 2+ carotid pulse no bruit, No LAD, Without JVD or thyroid abnormality Respiratory: Clear to auscultation bilaterally, Normal air movement Cardiovascular: Regular rate/rhythm, Normal S1 S2, No murmurs Gastrointestinal: Normal bowel sounds, Soft and benign, Non-distended, No tenderness Musculoskeletal: No clubbing, No swelling, No tenderness Integumentary: No rashes Neurological: Normal gait, Normal speech, Normal strength at 5/5 x4 extr, Normal tone, Normal affect Lymphatics: No axilla or inguinal lymphadenopathy - Studies Laboratory Data (last 24 hrs) 03/29/20 17:40: PT 11.0, INR 0.93 03/29/20 17:40: WBC 16.8 H, Hgb 14.7, Hct 44.5, Plt Count 303 03/29/20 17:40: Sodium 141, Potassium 2.9 L*, BUN 30 H, Creatinine 1.45 H, Glucose 85, Magnesium 2.5 H Assessment & Plan - Problems (Diagnosis) (1) Acute myocardial infarction Current Visit: Yes Status: Acute (2) Dyspnea Onset Date: 10/29/16 Current Visit: No Status: Acute Qualifiers: (3) History of coronary artery bypass graft Current Visit: No Status: Acute (4) Atrial fibrillation Onset Date: 10/13/16 Current Visit: No Status: Chronic Qualifiers: (5) CAD (coronary artery disease) Onset Date: 01/20/16 Current Visit: No Status: Chronic Qualifiers: (6) CHF (congestive heart failure) Onset Date: 01/20/16 Current Visit: No Status: Chronic (7) Tobacco abuse Onset Date: 12/03/14 Current Visit: No Status: Chronic (8) Chest pain Onset Date: 01/20/16 Current Visit: No Status: Resolved Qualifiers: - Plan 1. Serial troponins and EKG 2. Cardiology consultation pending 3. Echocardiogram and stress test to be reviewed 4. Anti-platelet therapy, anti coagulation, beta-jaime, statin, and O2 as needed 5. IV morphine for pain 6. Nitro drip to control blood pressure and chest discomfort 7. Possible cardiac catheterization as patient states he has had a positive stress test Discharge Plan: Home Plan to discharge in: Greater than 2 days - Advance Directives Does patient have a Living Will: No Does patient have a Durable POA for Healthcare: Yes - Code Status/Comfort Care Code Status Assessed: Yes Code Status: Full Code Critical Care: Yes Time Spent Managing PTS Care (In Minutes): 60
[2020-03-30] MEDS ORDERED: ISOSORBIDE MONONITRATE PO SCH (09:00)
[2020-03-30] MEDS ORDERED: FORMOTEROL IH SCH (09:00)
[2020-03-30] MEDS ORDERED: MOMETASONE IH SCH (09:00)
--- NOTE | 2020-03-30 10:13 | CON ---
Date of Consultation: 03/30/2020 Admitted on 03/29/[address] Anders's service. I saw the patient on 03/30/2020. Reason For Consultation: Non-ST elevation myocardial infarction. History Of Present Illness: Mr. Macias is a 59-year-old white male, he is known to have a history of CABG in the past. He also has a history of bipolar disorder, atrial fibrillation, congestive heart f ailure, hypertension, dyslipidemia, COPD, pancreatitis, hepatitis, and cirrhosis. He was in the hosp ital early February with chest pain, nausea, vomiting secondary to gastrointestinal issues. Had a negativ e troponin, then he had a positive stress test. We were planning to do a heart catheterization on but he could never lay flat, continued to have nausea and vomiting, finally was settled and treated medically and discharged home with a plan to do an outpatient heart catheterization. In the interim , he had seen his security police, liver specialist, and apparently had taken some form of medicat ion for his liver and pancreas. Right now, there is a plan to do an ERCP sometime in about 30 days o r so. He came in with substernal chest pain and diaphoresis and shortness of breath. No PND, orthop vida, pedal edema, palpitations, or syncope. He ruled in for myocardial infarction. His troponin was 0.12. He is pain-free this morning. Denies any nausea or vomiting. Past Medical History: As stated above. Allergies: HE IS ALLERGIC TO PENICILLIN AND CODEINE. Review of Systems: Negative. Social History: Positive for tobacco. Medications: Amiodarone, Norvasc, Plavix, aspirin, Lipitor, losartan, potassium, metoprolol, lithium , hydralazine, and Imdur. Physical Examination: Vital Signs: Blood pressure is 176/90 when he came in, it is now 145/87. HEENT: Negative. Neck: Supple with no bruit. Chest: Clear. Cardiac: Regular rhythm and rate. No murmurs, gallops, or rubs. Abdomen: Benign. Extremities: No clubbing, cyanosis, or edema. Diagnostic Data: Showed a creatinine of 1.45. White count was 17,000; potassium 2.9, supplemented t o 3.8. Troponin is 0.12. EKG showed nonspecific changes. Echocardiogram in February of 2020, was normal . Lexiscan showed possible apical ischemia. Impression And Plan: 1.Non-ST elevation myocardial infarction. Patient is on aspirin, Plavix, Lovenox, beta blockers, st atin, hydralazine, Imdur, Norvasc. We will continue his regimen and plan a heart catheterization on 04/01/2020. Patient understands the risks and the benefits of the procedure and he agrees to proceed. 2.Bipolar disorder, on lithium. 3.Atrial fibrillation. He is in sinus rhythm, on amiodarone. 4.Hypertension, well controlled now. 5.Dyslipidemia. 6.Chronic obstructive pulmonary disease. 7.Hepatitis. 8.Cirrhosis. 9.Pancreatitis. He has apparently seen a security police that is planning to do ERCP sometime in the near future. Depending on what we will find on Mr. Macias and if we put a stent or not we may have to deal with th at issue as far as holding his Plavix then. I will continue to follow him. From my standpoint, he c an go to telemetry. SUSIE/REINA Voice ID: [id number] Report ID: [id number]
[2020-03-30] MEDS: ENOXAPARIN 60 MG/0.6 ML SQ SCH ×2 (11:15→22:11)
[2020-03-30 11:40] LABS: Absolute Lymphocytes (CBC) 1.7 K/uL (0.7-4.9); Basophils % 0.9 % (0-1.3); Hematocrit 40.4 % (39.6-49.0); Lymphocytes % 23.1 % (15.3-44.8); MPV 9.7 fL (7.6-11.3)
[2020-03-30 11:58] LABS: Bilirubin Total 0.4 mg/dL (0.2-1.0); Magnesium 2.8 mg/dL (1.8-2.4); Phosphorus 2.9 mg/dL (2.5-4.9); Protein, Total 6.9 g/dL (6.4-8.2); Troponin I 0.07 ng/mL (0.0-0.045)
[2020-03-30] MEDS: AMIODARONE HCL 200 MG TAB PO SCH (21:29)
[2020-03-30] MEDS: ATORVASTATIN 20 MG TAB PO SCH (21:29)
[2020-03-30] MEDS: NICOTINE 21 MG/PAT TD SCH (21:31)
[2020-03-31] MEDS: MORPHINE 4 MG/ML SYR IV PRN ×8 (00:38→21:08)
[2020-03-31] MEDS ORDERED: cloNIDine HCL 0.1 MG TAB PO ONE ×2 (01:17→22:56)
[2020-03-31] MEDS: PANTOPRAZOLE 40MG TABLET PO SCH (08:43)
[2020-03-31] MEDS: ISOSORBIDE MONO 10 MG TAB PO SCH (08:43)
[2020-03-31] MEDS: NICOTINE 21 MG/PAT TD SCH (08:43)
[2020-03-31] MEDS: CLOPIDOGREL 75 MG TABLET PO SCH (08:43)
[2020-03-31] MEDS: CITALOPRAM 10 MG TABLET PO SCH (08:44)
[2020-03-31] MEDS: ASPIRIN EC 81 MG TAB PO SCH (08:44)
[2020-03-31] MEDS: METOPROLOL TAR 50 MG TAB PO SCH ×2 (08:44→20:39)
--- NOTE | 2020-03-31 08:53 | PN ---
Date of Progress Note: 03/31/2020 Mr. Macias has been followed for non-ST elevation myocardial infarction. He came in Wednesday evening. 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 Recently started chemotherapy for hepatitis and pancreatitis. Had remained stable. Moved out of the ICU. No arrhythmias. Presently on Plavix metoprolol, aspirin, amiodarone, Lipitor, metoprolol, and Imdur. His last creatinine is 0.97. We will continue his present regimen. Plan for a heart ca theterization on 04/01/2020. SUSIE/REINA Voice ID: [id number] Report ID: [id number]
[2020-03-31] MEDS: ENOXAPARIN 60 MG/0.6 ML SQ SCH (12:06)
[2020-03-31] MEDS: LORAZEPAM 0.5 MG TABLET PO PRN (17:38)
[2020-03-31] MEDS: AMIODARONE HCL 200 MG TAB PO SCH (20:38)
[2020-03-31] MEDS: LITHIUM CARBONATE 300 MG TAB PO SCH (20:38)
[2020-03-31] MEDS: ATORVASTATIN 20 MG TAB PO SCH (20:39)
[2020-04-01] MEDS: MORPHINE 4 MG/ML SYR IV PRN ×8 (00:23→20:43)
[2020-04-01] MEDS ORDERED: HYDRALAZINE HCL 20 MG/ML VIAL IV STA (01:40)
[2020-04-01] MEDS ORDERED: NITROGLYCERIN 1 GM PKT TD ONE (03:10)
[2020-04-01] MEDS: AMLODIPINE 10 MG TAB PO SCH (06:05)
[2020-04-01] MEDS: METOPROLOL TAR 50 MG TAB PO SCH ×2 (06:05→20:40)
[2020-04-01] MEDS: CLOPIDOGREL 75 MG TABLET PO SCH (06:05)
[2020-04-01] MEDS: LOSARTAN POTASSIUM 50 MG TABLET PO SCH ×2 (06:06→20:40)
[2020-04-01] MEDS: ASPIRIN EC 81 MG TAB PO SCH (06:06)
[2020-04-01] MEDS: HYDRALAZINE HCL 25 MG TABLET PO SCH ×3 (06:06→20:40)
[2020-04-01 06:08] LABS: Absolute Lymphocytes (CBC) 2.6 K/uL (0.7-4.9); Basophils % 0.6 % (0-1.3); Lymphocytes % 19.6 % (15.3-44.8); MPV 10.3 fL (7.6-11.3); RBC Red Blood Cell Count 4.83 M/uL (4.33-5.43)
[2020-04-01] MEDS ORDERED: NA CHLORIDE 0.9% 1,000 ML ONE (06:12)
[2020-04-01 06:13] LABS: Magnesium 2.3 mg/dL (1.8-2.4); Phosphorus 2.5 mg/dL (2.5-4.9); Potassium 3.7 mmol/L (3.5-5.1)
--- NOTE | 2020-04-01 06:18 | P.PN ---
Subjective Date of Service: 03/30/20 Patient still having chest discomfort and blood pressure elevated. Continue nitro drip and slowly wean off per Cardiology recommendation. Cardiology recommended heart catheterization for acute myocardial infarction. Continue with anti coagulation and anti-platelet therapy along with statin therapy. Review of Systems 10-point ROS is otherwise unremarkable Physical Examination - Vital Signs Temperature: 98.2 F Blood Pressure: 150/88 Pulse: 66 Respirations: 14 Pulse Ox (%): 97 - Physical Exam General: Alert, In no apparent distress, Oriented x3 Respiratory: Clear to auscultation bilaterally, Normal air movement Cardiovascular: Regular rate/rhythm, Normal S1 S2, Systolic murmur Gastrointestinal: Normal bowel sounds, Soft and benign, Non-distended, No tenderness Musculoskeletal: No clubbing, No swelling, No tenderness Integumentary: No rashes Neurological: Normal speech, Normal strength at 5/5 x4 extr, Normal tone, Sensation intact Lymphatics: No axilla or inguinal lymphadenopathy - Studies Medications List Reviewed: Yes Assessment & Plan - Problems (Diagnosis) (1) Acute myocardial infarction Current Visit: Yes Status: Acute (2) Dyspnea Onset Date: 10/29/16 Current Visit: No Status: Acute Qualifiers: (3) History of coronary artery bypass graft Current Visit: No Status: Acute (4) Atrial fibrillation Onset Date: 10/13/16 Current Visit: No Status: Chronic Qualifiers: (5) CAD (coronary artery disease) Onset Date: 01/20/16 Current Visit: No Status: Chronic Qualifiers: (6) CHF (congestive heart failure) Onset Date: 01/20/16 Current Visit: No Status: Chronic (7) Tobacco abuse Onset Date: 12/03/14 Current Visit: No Status: Chronic (8) Chest pain Onset Date: 01/20/16 Current Visit: No Status: Resolved Qualifiers: - Plan continue with current plan of care as mentioned below 1. Troponins elevated and EKG with no acute changes; 2. Cardiology consultation appreciated 3. Echocardiogram and stress test performed as an outpatient were abnormal 4. Anti-platelet therapy, anti coagulation, beta-jaime, statin, and O2 as needed 5. IV morphine for pain 6. Nitro drip to control blood pressure and chest discomfort 7. Cardiac catheterization on Wednesday Discharge Plan: Home Plan to discharge in: Greater than 2 days - Advance Directives Does patient have a Living Will: No Does patient have a Durable POA for Healthcare: Yes - Code Status/Comfort Care Code Status: Full Code Critical Care: Yes Time Spent Managing PTS Care (In Minutes): 35
--- NOTE | 2020-04-01 06:20 | P.PN ---
Subjective Date of Service: 03/31/20 Patient doing better. Transfer to the floor. Continue cardiac meds and cardiac catheterization in the morning. Physical Examination - Vital Signs Temperature: 98.2 F Blood Pressure: 150/88 Pulse: 66 Respirations: 14 Pulse Ox (%): 97 - Studies Medications List Reviewed: Yes Assessment & Plan - Problems (Diagnosis) (1) Acute myocardial infarction Current Visit: Yes Status: Acute (2) Dyspnea Onset Date: 10/29/16 Current Visit: No Status: Acute Qualifiers: (3) History of coronary artery bypass graft Current Visit: No Status: Acute (4) Atrial fibrillation Onset Date: 10/13/16 Current Visit: No Status: Chronic Qualifiers: (5) CAD (coronary artery disease) Onset Date: 01/20/16 Current Visit: No Status: Chronic Qualifiers: (6) CHF (congestive heart failure) Onset Date: 01/20/16 Current Visit: No Status: Chronic (7) Tobacco abuse Onset Date: 12/03/14 Current Visit: No Status: Chronic (8) Chest pain Onset Date: 01/20/16 Current Visit: No Status: Resolved Qualifiers: - Plan continue with current plan of care as mentioned below 1. Troponins elevated and EKG with no acute changes; 2. Cardiology consultation appreciated 3. Echocardiogram and stress test performed as an outpatient were abnormal 4. Anti-platelet therapy, anti coagulation, beta-jaime, statin, and O2 as needed 5. IV morphine for pain 6. We have stopped Nitro drip transfer to the floor per Cardiology; heart catheterization tomorrow more 7. Cardiac catheterization on Wednesday Discharge Plan: Home Plan to discharge in: Greater than 2 days - Advance Directives Does patient have a Living Will: No Does patient have a Durable POA for Healthcare: Yes - Code Status/Comfort Care Code Status: Full Code Critical Care: No Time Spent Managing PTS Care (In Minutes): 35
--- NOTE | 2020-04-01 06:22 | P.PN ---
Subjective Date of Service: 04/01/20 We have been having a hard time keeping blood pressure control tonight. His blood pressure had been good for the last couple days but last night it became very unstable. We gave numerous oral medications and IV push medications along with nitro paste. Unable to get blood pressure to go under 200/110. Will go ahead and transfer to ICU and start on a nitro drip in anticipation of heart catheterization this morning. Review of Systems 10-point ROS is otherwise unremarkable Physical Examination - Vital Signs Temperature: 98.2 F Blood Pressure: 150/88 Pulse: 66 Respirations: 14 Pulse Ox (%): 97 - Physical Exam General: Alert, In no apparent distress, Oriented x3 HEENT: Atraumatic, PERRLA, EOMI Neck: Supple, JVD not distended Respiratory: Clear to auscultation bilaterally, Normal air movement Cardiovascular: Regular rate/rhythm, Normal S1 S2 Gastrointestinal: Normal bowel sounds, No tenderness Musculoskeletal: No tenderness Integumentary: No rashes Neurological: Normal strength at 5/5 x4 extr, Normal tone, Sensation intact, Cranial nerves 3-12 intact Lymphatics: No axilla or inguinal lymphadenopathy - Studies Medications List Reviewed: Yes Assessment & Plan - Problems (Diagnosis) (1) Acute myocardial infarction Current Visit: Yes Status: Acute (2) Dyspnea Onset Date: 10/29/16 Current Visit: No Status: Acute Qualifiers: (3) History of coronary artery bypass graft Current Visit: No Status: Acute (4) Atrial fibrillation Onset Date: 10/13/16 Current Visit: No Status: Chronic Qualifiers: (5) CAD (coronary artery disease) Onset Date: 01/20/16 Current Visit: No Status: Chronic Qualifiers: (6) CHF (congestive heart failure) Onset Date: 01/20/16 Current Visit: No Status: Chronic (7) Tobacco abuse Onset Date: 12/03/14 Current Visit: No Status: Chronic (8) Chest pain Onset Date: 01/20/16 Current Visit: No Status: Resolved Qualifiers: - Plan Plan to transfer back to ICU as blood pressures been elevated. Were we start nitro drip at this time.Patient scheduled for heart catheterization this morning. Continue aggressive intervention. Discharge Plan: Home Plan to discharge in: Greater than 2 days - Advance Directives Does patient have a Living Will: No Does patient have a Durable POA for Healthcare: Yes - Code Status/Comfort Care Code Status: Full Code Critical Care: No Time Spent Managing PTS Care (In Minutes): 60
[2020-04-01] MEDS ORDERED: POTASSIUM PHOS IN 0.9 % NACL 15 MMOL/250 ML BAG IV ONE (07:00)
[2020-04-01] MEDS: CITALOPRAM 10 MG TABLET PO SCH (08:18)
[2020-04-01] MEDS: NICOTINE 21 MG/PAT TD SCH (08:18)
[2020-04-01] MEDS: PANTOPRAZOLE 40MG TABLET PO SCH (08:19)
[2020-04-01 08:52] LABS: Platelet Estimate ADEQ; Urine White Blood Cell Casts OK
[2020-04-01 08:53] LABS: Blood Morphology Comment NOT SEEN (NOT SEEN)
[2020-04-01] MEDS ORDERED: CLOPIDOGREL 75 MG TABLET PO SCH (09:00)
[2020-04-01] MEDS ORDERED: HEPA 1000U/500MLS 2,000 UNIT/1,000 ML BAG IV ONE (09:04)
--- NOTE | 2020-04-01 10:26 | P.PN ---
Date of Service: 04/01/20 Patient seen, stay complain of persistent chest pain. Still elevated blood pressure that despite increasing nitro doses. I believe blood pressure might be reflective of his persistent pain, continue morphine doses, follow plan for cardiac catheterization today
[2020-04-01] MEDS: ONDANSETRON 4 MG/2 ML VIAL IV PRN ×2 (11:13→17:56)
[2020-04-01] MEDS ORDERED: NICARDIPINE HCL 25 MG/10 ML IV ONE (12:45)
[2020-04-01] MEDS ORDERED: FENTANYL CITR 100 MCG/2 ML ONE (12:45)
[2020-04-01] MEDS ORDERED: MIDAZOLAM HCL 2 MG/2 ML INJ ONE (12:45)
[2020-04-01] MEDS ORDERED: HEPARIN 5000 UNIT/ML 1 ML VIAL ONE ×2 (12:45→12:46)
[2020-04-01] MEDS ORDERED: ATROPINE SULF 1 MG/10 ML SYR IV ONE (12:46)
[2020-04-01] MEDS: LIDOCAINE 4% PATCH TOP SCH (14:53)
--- NOTE | 2020-04-01 15:15 | OP ---
Date of Procedure: 04/01/2020 Surgeon: PILLO DUMONT Senior Financial Consultant: Pillo Dumont. Procedure Performed: Selective coronary angiogram with bypass graft study. Indications: Non ST elevation [place]. Access: Right femoral artery 6-English closed with StarClose with good hemostasis. Seismograph Supervisor: Ghulam Berrios M.D. Description Of Procedure: Patient was brought into the cardiac catheterization laboratory, prepped a nd draped in the usual sterile fashion. We used fentanyl and Versed in incremental doses to achieve adequate amount of sedation. Then, we accessed the right femoral artery with ultrasound guidance and fluoroscopy guidance. A 6-English pinnacle sheath was inserted and then we took a 6-English JL4 glory ter into the aortic root over a J-wire and engaged the left main, took standard views and then exchan ged for a JR4 catheter. Engaged the RCA and took standard views and with the same catheter SVG to RC A and then the JR4 catheter was manipulated to reach the subclavian artery and then engaged the GONZALES and standard views were obtained. Then the procedure was concluded and then removed all catheters an d wires from the body and sheath was removed and using StarClose good hemostasis was achieved. Findings: 1.Totally occluded proximal LAD with patent GONZALES to mid to distal portion of the LAD. There is a si gnificant disease in the LAD prior to the bypass, however, it is diffuse and very difficult to access . 2.Mild disease involving the left circumflex artery, has very good flow through it. 3.Severe mid RCA stenosis with patent SVG to distal RCA. 4.Patent GONZALES to LAD. 5.Patent SVG to RCA. Impression: Coronary artery disease as described above. Recommendations: I recommend aggressive medical management for coronary artery disease and risk fact or modification and no intervention at this time. SR/MODL Voice ID: [id number] Report ID: [id number]
[2020-04-01] MEDS ORDERED: NITROGLYCERIN 0.4 MG/TAB SL PRN (16:00)
[2020-04-01] MEDS ORDERED: ACETAMINOPHEN 325 MG TABLET PO PRN (16:00)
[2020-04-01] MEDS ORDERED: NA CHLORIDE 0.9% 1,000 ML IV SCH (16:00)
[2020-04-01] MEDS: LORAZEPAM 0.5 MG TABLET PO PRN (20:40)
[2020-04-01] MEDS: ATORVASTATIN 20 MG TAB PO SCH (20:40)
[2020-04-01] MEDS: AMIODARONE HCL 200 MG TAB PO SCH (20:40)
[2020-04-01] MEDS: LITHIUM CARBONATE 300 MG TAB PO SCH (20:42)
[2020-04-01] MEDS ORDERED: LITHIUM CARBONATE 300 MG TAB PO SCH (21:00)
[2020-04-01] MEDS ORDERED: Nicardipine in Saline, Iso-Osm 20 MG/200 ML IV.SOLN. IV PRN (21:43)
[2020-04-01] MEDS ORDERED: Nicardipine/NS 25 MG/250 ML KIT IV ONE (21:54)
[2020-04-02] MEDS: MORPHINE 4 MG/ML SYR IV PRN ×8 (00:37→22:48)
[2020-04-02 05:25] VITALS: BMI 20.2
[2020-04-02 05:30] LABS: BUN Blood Urea Nitrogen 11 mg/dL (7-18); Bicarbonate 25 mmol/L (21-32); Glucose Level 87 mg/dL (74-106); Magnesium 2.5 mg/dL (1.8-2.4); Sodium Level 139 mmol/L (136-145)
[2020-04-02] MEDS: CITALOPRAM 10 MG TABLET PO SCH (07:50)
[2020-04-02] MEDS: METOPROLOL TAR 50 MG TAB PO SCH ×2 (07:50→19:45)
[2020-04-02] MEDS: PANTOPRAZOLE 40MG TABLET PO SCH (07:50)
[2020-04-02] MEDS: ASPIRIN EC 81 MG TAB PO SCH (07:50)
[2020-04-02] MEDS: NICOTINE 21 MG/PAT TD SCH (07:50)
[2020-04-02] MEDS: CLOPIDOGREL 75 MG TABLET PO SCH (07:51)
[2020-04-02] MEDS: AMLODIPINE 10 MG TAB PO SCH (07:51)
[2020-04-02] MEDS: HYDRALAZINE HCL 25 MG TABLET PO SCH ×3 (08:17→19:45)
[2020-04-02] MEDS: LOSARTAN/HCTZ 50-12.5 PO SCH (08:18)
[2020-04-02] MEDS: LIDOCAINE 4% PATCH TOP SCH ×2 (08:19→08:22)
--- NOTE | 2020-04-02 11:47 | EKG ---
Test Date: 2020-04-01 Test Time: 05:33:11 Instructor Painting: RT-O MEASUREMENT RESULTS: Intervals: Rate: 84 AL: 166 QRSD: 106 QT: 414 QTc: 489 [place]: P: 80 AL: 166 QRS: 51 T: 82 INTERPRETIVE STATEMENTS: Normal sinus rhythm Anteroseptal infarct, possibly acute ACUTE [place] Abnormal ECG Compared to ECG 03/29/2020 17:37:41 First degree AV block no longer present T-wave abnormality no longer present Possible ischemia no longer present Myocardial infarct finding still present Electronically Signed On 04-02-20 11:43:26 CDT by Ghulam Berrios
--- NOTE | 2020-04-02 11:47 | EKG ---
Test Date: 2020-03-29 Test Time: 17:44:54 [employer] Guidance Counselor: HALLIE MEASUREMENT RESULTS: Intervals: Rate: 97 [place]: 232 QRSD: 108 QT: 336 QTc: 426 [place]: P: 84 [place]: 232 QRS: 60 T: 225 INTERPRETIVE STATEMENTS: Sinus rhythm with 1st degree AV block Possible Left atrial enlargement Anteroseptal infarct, possibly acute T wave abnormality, consider inferolateral ischemia ACUTE [place] Abnormal ECG Compared to ECG 03/29/2020 17:37:41 No significant changes Electronically Signed On 04-02-20 11:43:28 CDT by Ghulam Berrios
--- NOTE | 2020-04-02 11:47 | EKG ---
Test Date: 2020-03-29 Test Time: 17:37:41 Real Estate Agent/Broker: HALLIE MEASUREMENT RESULTS: Intervals: Rate: 99 OR: 238 QRSD: 110 QT: 312 QTc: 400 [place]: P: 95 OR: 238 QRS: 60 T: 223 INTERPRETIVE STATEMENTS: Sinus rhythm with 1st degree AV block Possible Left atrial enlargement Anteroseptal infarct, possibly acute T wave abnormality, consider inferior ischemia ACUTE [place] Abnormal ECG Compared to ECG 03/04/2020 15:43:29 First degree AV block now present T-wave abnormality now present Possible ischemia now present Myocardial infarct finding still present Electronically Signed On 04-02-20 11:43:32 CDT by Ghulam Berrios
[2020-04-02 15:13] LABS: Urine Appearance CLOUDY; Urine Bilirubin NEGATIVE (NEG); Urine Blood NEGATIVE (NEG); Urine Color DK YELLOW; Urine Glucose NEGATIVE (NEG); Urine Protein NEGATIVE (NEG); Urine Specific Gravity 1.015 (1.005-1.030)
[2020-04-02 15:26] LABS: Urine Microscopic Reflex ORDER UMIC
[2020-04-02 15:42] LABS: Urine Bacteria LOADED /HPF (NONE SEEN); Urine Culture Reflex Order REFLEXED; Urine RBC <5 /HPF (NONE SEEN)
[2020-04-02] MEDS: CEFTRIAXONE/SWI 1gm 1 GM/10 ML SYR IVP SCH (16:44)
--- NOTE | 2020-04-02 18:07 | PN ---
Date of Progress Note: 04/02/2020 Subjective: Patient seen and examined. Chart reviewed and case discussed with RN and Dr. Berrios. The patient still complaining of chest pain. Per Cardiology, catheterization was normal. He has had 2 caths in the past 2 years. Medical management only. Patient was taken off Cardene drip this morning. Physical Examination: Vital Signs: Temperature 98.6, heart rate 78, blood pressure 159/88, respirations 12, O2 95% on room air. General: Awake, alert, oriented x3. Does not appear to be in any acute distress. Appears older than stated age. CV: S1, S2. Regular rate and rhythm. No murmurs. Peripheral pulses present. Respiratory: Moving air well bilaterally. No wheezing or stridor. No use of accessory muscles. Gastrointestinal: Abdomen is soft, nontender, nondistended. Positive bowel sounds. Extremities: No clubbing, cyanosis, or edema. No calf tenderness. Neuro: Cranial nerves 2 through 12 intact grossly. No focal neurological deficits. Speech is normal. Laboratory Data: Sodium 139, potassium 4, chloride 107, CO2 25, BUN 11, creatinine 0.83, glucose 87, calcium 8.8, phosphorus 3, magnesium 2.5. Assessment: A 59-year-old male with. 1. Acute myocardial infarction, status post cardiac catheterization with no acute intervention. Patient has no change from the past couple of years. Continue medical management. 2. Hypertensive emergency. Patient on Cardene drip, now weaned off. Blood pressure medications have been adjusted. We will continue to monitor closely. 3. Acute dyspnea, likely secondary to above. 4. Coronary artery disease, [place] artery, [place] heart, status post coronary artery bypass graft with angina, stable. 5. Atrial fibrillation, paroxysmal. 6. History of congestive heart failure. Echocardiogram shows EF of 65%, diastolic dysfunction. 7. Nicotine dependence with cigarette smoking, counseled. Plan: Monitor blood pressure closely. Patient does seem to have drug-seeking behavior. Has chronic pain. We will try to wean off morphine and DC home once blood pressure is more improved. ADDENDUM abnormal UA will start on Rocephin. Follow up on cultures SA/MODL Voice ID: [id number] Report ID: [id number] [place]
[2020-04-02] MEDS: ATORVASTATIN 20 MG TAB PO SCH (19:44)
[2020-04-02] MEDS: LITHIUM CARBONATE 300 MG TAB PO SCH (19:45)
[2020-04-02] MEDS: AMIODARONE HCL 200 MG TAB PO SCH (19:45)
[2020-04-02 21:44] VITALS: O2SAT 97
[2020-04-03] MEDS: MORPHINE 4 MG/ML SYR IV PRN ×4 (01:52→11:09)
--- NOTE | 2020-04-03 01:53 | PN ---
Date of Progress Note: 04/02/2020 History Of Present Illness: Mr. Macias had come in with chest pain, positive troponin. Yesterday, a heart catheterization revealed a patent left internal mammary artery to the LAD with minimal coronary artery disease elsewhere. No interventions were necessary. Today, he is not having any chest pain. He is suffering with uncontrolled blood pressure, was placed on Cardene IV. Today, his pressure is 130/80 on Cardene. No specific complaint. On examination, his chest was clear. His vital signs we re stable. He was afebrile. His right groin site was intact without any hematoma. He had no edema. Final impression is CAD, status post GONZALES to the LAD patent by catheterization. No other significa nt coronary artery disease. I think his troponin elevation and chest pain may have been secondary to hypertension along with his other problems including hepatitis and pancreatitis that is chronic. I suggest we leave him on Norvasc 10 mg daily, start losartan with hydrochlorothiazide 100/25 mg daily, increase his metoprolol to 50 twice a day, try to wean him off the Cardene, keep him on hydralazine and send him home whenever his blood pressure is adequate. SUSIE/JUANL Voice ID: [id number] Report ID: [id number]
[2020-04-03 05:40] LABS: Absolute Lymphocytes (CBC) 2.3 K/uL (0.7-4.9); Basophils % 0.8 % (0-1.3); Hematocrit 42.6 % (39.6-49.0); Lymphocytes % 22.9 % (15.3-44.8); MPV 10.1 fL (7.6-11.3); RBC Red Blood Cell Count 4.62 M/uL (4.33-5.43)
[2020-04-03 05:54] LABS: Magnesium 2.5 mg/dL (1.8-2.4); Phosphorus 3.2 mg/dL (2.5-4.9); Potassium 3.8 mmol/L (3.5-5.1)
[2020-04-03] MEDS: METOPROLOL TAR 50 MG TAB PO SCH (06:07)
[2020-04-03] MEDS: CITALOPRAM 10 MG TABLET PO SCH (07:58)
[2020-04-03] MEDS: ASPIRIN EC 81 MG TAB PO SCH (07:59)
[2020-04-03] MEDS: LOSARTAN/HCTZ 50-12.5 PO SCH (07:59)
[2020-04-03] MEDS: CEFTRIAXONE/SWI 1gm 1 GM/10 ML SYR IVP SCH (07:59)
[2020-04-03] MEDS: HYDRALAZINE HCL 25 MG TABLET PO SCH (08:00)
[2020-04-03] MEDS: NICOTINE 21 MG/PAT TD SCH (08:00)
[2020-04-03] MEDS: AMLODIPINE 10 MG TAB PO SCH (08:00)
[2020-04-03] MEDS: PANTOPRAZOLE 40MG TABLET PO SCH (08:00)
[2020-04-03] MEDS: CLOPIDOGREL 75 MG TABLET PO SCH (08:00)
[2020-04-03] MEDS: LIDOCAINE 4% PATCH TOP SCH (09:00)
[2020-04-03] MEDS ORDERED: HYDRALAZINE HCL 25 MG TABLET PO ONE (09:00)
[2020-04-03] MEDS ORDERED: METOPROLOL TAR 50 MG TAB PO ONE (09:01)
[2020-04-03 09:08] VITALS: TEMP 98.3
[2020-04-03 11:13] VITALS: BP 163/80
--- NOTE | 2020-04-03 11:34 | P.DS ---
Admission Date: 03/29/20 Discharge Date: 04/03/20 Disposition: ROUTINE DISCHARGE Discharge Condition: FAIR Reason for Admission: Acute myocardial infarction Brief History of Present Illness: History of Present Illness: Patient is a 59-year-old gentleman who came to the hospital with chest discomfort. Pain was mainly in the sternal region. Patient is a history of Coronary artery disease. Patient had a stress test done a couple weeks ago which she states was positive. His schedule to get a heart catheterization. He started having chest pain once again and became very diaphoretic so his family brought him into the hospital for further evaluation. In the emergency room patient was found have an elevated troponin and he will be admitted to ICU with a nitro drip and anti coagulation. Allergies Penicillins Allergy (Intermediate, Verified 04/15/19 21:16) Hives/Rash codeine [From Tylenol-Codeine] Allergy (Verified 04/15/19 21:16) Itching Hospital Course: Patient with history of CAD, CABG, chronic neck and back pain admitted for anterior chest wall pain. He was also noted with hypertensive urgency requiring nitroglycerin drip. He was evaluated by Cardiology and had a cardiac catheterization with finding of patent vessels including bypass phase. Patient continued to have persistent pain symptoms which was control with PRN an escalating doses of opioid medications. Patient had been to chronic 0 point use. Pain appeared to be radiating from chronic neck and back pain. His blood pressure was control with addition of hydralazine her metoprolol to his home regimen. Patient blood pressure has significantly improved to the 130 systolic. His pain is felt to be noncardiac and advice to manage with p.r.n. pain medication. He was given lidocaine patch to help with the pain control. He will be discharged home today to follow with his PCP. He may need orthopedics evaluation of his spine and back in the future. Vital Signs/Physical Exam: Temp Pulse Resp BP Pulse Ox 98.3 F 57 15 163/80 H 97 04/03/20 08:00 04/03/20 11:00 04/03/20 11:00 04/03/20 11:00 04/03/20 06:00 General: Alert, In no apparent distress, Oriented x3 HEENT: Atraumatic, Normocephalic, PERRLA Neck: Supple, 2+ carotid pulse no bruit, JVD not distended Respiratory: Clear to auscultation bilaterally, Normal air movement Cardiovascular: Normal pulses, Regular rate/rhythm, Normal S1 S2 Gastrointestinal: Normal bowel sounds, Soft and benign, Non-distended Musculoskeletal: No clubbing, No swelling Neurological: Normal speech, Normal strength at 5/5 x4 extr, Normal tone Laboratory Data at Discharge: WBC 9.9 K/uL (4.3-10.9) D 04/03/20 05:22 Hgb 14.1 g/dL (13.6-17.9) 04/03/20 05:22 Hct 42.6 % (39.6-49.0) 04/03/20 05:22 Plt Count 198 K/uL (152-406) 04/03/20 05:22 PT 11.0 SECONDS (9.5-12.5) 03/29/20 17:40 INR 0.93 03/29/20 17:40 Sodium 141 mmol/L (136-145) 04/03/20 05:22 Potassium 3.8 mmol/L (3.5-5.1) 04/03/20 05:22 BUN 17 mg/dL (7-18) 04/03/20 05:22 Creatinine 0.92 mg/dL (0.55-1.3) 04/03/20 05:22 Glucose 96 mg/dL (74-106) 04/03/20 05:22 Phosphorus 3.2 mg/dL (2.5-4.9) 04/03/20 05:22 Magnesium 2.5 mg/dL (1.8-2.4) H 04/03/20 05:22 Total Bilirubin 0.4 mg/dL (0.2-1.0) 03/30/20 11:28 AST 123 U/L (15-37) H 03/30/20 11:28 ALT 87 U/L (12-78) H 03/30/20 11:28 Alkaline Phosphatase 69 U/L (45-117) 03/30/20 11:28 Troponin I 0.07 ng/mL (0.0-0.045) H 03/30/20 11:28 Triglycerides 104 mg/dL (<150) 03/30/20 05:10 Cholesterol 166 mg/dL (<200) 03/30/20 05:10 HDL Cholesterol 52 mg/dL (40-60) 03/30/20 05:10 Cholesterol/HDL Ratio 3.19 03/30/20 05:10 Home Medications: Amiodarone HCl 100 mg PO BEDTIME 03/29/20 Amlodipine [Norvasc*] 10 mg PO DAILY 03/29/20 Aspirin 81 mg PO DAILY 03/29/20 Atorvastatin Calcium [Lipitor*] 20 mg PO BEDTIME 03/29/20 Citalopram [Celexa*] 20 mg PO DAILY 03/29/20 Citalopram [Celexa*] 40 mg PO DAILY 03/29/20 Clopidogrel Bisulfate [Plavix*] 75 mg PO DAILY 03/29/20 Cyclobenzaprine [Flexeril*] 10 mg PO TID PRN 03/29/20 Hydrocodone 10/APAP 325 [[place] 10/325*] 1 tab PO Q8HP PRN 03/29/20 Isosorbide Mononitrate [Ismo] 2 tab PO DAILY 03/29/20 [place] Carbonate [Lithotabs *] 600 mg PO BEDTIME 03/29/20 Losartan Potassium [Cozaar*] 50 mg PO BID 03/29/20 Mometasone/Formoterol [Dulera 100 Mcg-5 Mcg Inhaler] 1 puff IH BID 03/29/20 Nitroglycerin [Nitrostat*] 0.4 mg SL [id number] PRN 03/29/20 Pantoprazole [Protonix Tab*] 40 mg PO DAILY 03/29/20 Potassium Chloride [Klor-Con] 20 meq PO DAILY 03/29/20 Promethazine Tab [Phenergan*] 12.5 mg PO Q6HP PRN 03/29/20 Amiodarone HCl [Cordarone*] 100 mg PO BEDTIME tab 04/03/20 Clopidogrel Bisulfate [Plavix*] 75 mg PO DAILY tablet 04/03/20 Hydralazine [Apresoline*] 50 mg PO BID #60 tab 04/03/20 Lidocaine 4% Patch [Lidoderm 5% Patch*] 1 patch TOP DAILY #10 patch 04/03/20 [place] Carbonate [Lithotabs *] 600 mg PO BEDTIME tab 04/03/20 Metoprolol Tartrate [Lopressor*] 50 mg PO BID #60 tab 04/03/20 New Medications: Hydralazine [Apresoline*] 50 mg PO BID #60 tab Lidocaine 4% Patch [Lidoderm 5% Patch*] 1 patch TOP DAILY #10 patch Metoprolol Tartrate [Lopressor*] 50 mg PO BID #60 tab Diet: Regular Activity: Ad nas Time spent managing pt's care (in minutes): 35
[2020-04-03] MEDS ORDERED: HYDRALAZINE HCL 25 MG TABLET PO SCH ×2 (14:00)
[2020-04-03] MEDS ORDERED: METOPROLOL TAR 50 MG TAB PO SCH ×2 (21:00)
== END 2020-04-03 12:02 | disposition home or self-care (01) | DRG 280 ==
LOC: ER 17:32 → ERHOLD 20:17 → 3RD-ICU 20:55 → 4TH 03-30 14:08 → 2ND 03-30 17:48 → 3RD-ICU 04-01 05:15
PROVIDERS: ADMIT Family Medicine; ATTEND Family Medicine
PROC: B2111ZZ Fluoroscopy of Multiple Coronary Arteries using Low Osmolar Contrast (ICD-10-PCS; principal; 2020-04-01)
PROC: B2181ZZ Fluoroscopy of Left Internal Mammary Bypass Graft using Low Osmolar Contrast (ICD-10-PCS; 2020-04-01)
PROC: B2121ZZ Fluoroscopy of Single Coronary Artery Bypass Graft using Low Osmolar Contrast (ICD-10-PCS; 2020-04-01)
DX: I21.9 Acute myocardial infarction, unspecified (principal); K85.90 Acute pancreatitis without necrosis or infection, unspecified; I25.10 Atherosclerotic heart disease of native coronary artery without angina pectoris; J44.9 Chronic obstructive pulmonary disease, unspecified; I16.0 Hypertensive urgency; E78.5 Hyperlipidemia, unspecified; I48.91 Unspecified atrial fibrillation; I50.9 Heart failure, unspecified; I11.0 Hypertensive heart disease with heart failure; F31.9 Bipolar disorder, unspecified; K75.9 Inflammatory liver disease, unspecified; K74.60 Unspecified cirrhosis of liver; F17.210 Nicotine dependence, cigarettes, uncomplicated; R06.00 Dyspnea, unspecified; Z20.828 Contact with and (suspected) exposure to other viral communicable diseases; Z88.5 Allergy status to narcotic agent; Z79.82 Long term (current) use of aspirin; Z79.02 Long term (current) use of antithrombotics/antiplatelets; Z79.891 Long term (current) use of opiate analgesic; Z79.899 Other long term (current) drug therapy; Z95.1 Presence of aortocoronary bypass graft; Z90.49 Acquired absence of other specified parts of digestive tract; Z88.0 Allergy status to penicillin
CPT/HCPCS: 36415; 71045; 71275; 74175; 80048; 80053; 80061; 81003; 81015; 82565; 83735; 83880; 84100; 84132; 84484; 85025; 85610; 87077; 87086; 87088; 87186; 93005; 93455; 96365; 96368; 96375; 99285; C1893; J0360; J0696; J1170; J1644; J1650; J2250; J2405; J3010; J7030; Q9967; U0002

== ENCOUNTER 2020-05-19 13:09 | Inpatient (IN) | payer OTHER ==
--- OUTSIDE RECORDS SUMMARY | 2020-05-19 13:18 | XMS REPORT | Clinical Summary ---
:1960 Author Organization [facility] Address [address] [place] [address] Care Team Providers Name Role Phone Sharpsophie [...] ANGIOS 06/10/2019 Travel 06/09/2019 - Hospital Cardiology [facility] Intercostal gurpreet n; 06/15/2019 Encounter Carolina Shahid Other specifi ed hypotension; MD Vladislav Coronary artery disease involving [place] coronary artery of [place] heart without angina pectoris; Lisa, Pulmonary emphy sema, unspecified emphysema type (HCC); MD Sebastian Paroxysmal atrial fibrillation (HCC); Maggie Denis, Hypotension due to drugs; Epigastric pain ; RUQ pain; Dilated cbd, ac quired 06/09/2019 Orders Only General Internal Medicine after 05/19/2019 Social History Tobacco Use Types Packs/Day Years [...] 500 ms QTC Calculation(Bazett) 565 ms P [place] 77 degrees R [place] 73 degrees T [place] 83 degrees Normal sinus rhythm Incomplete right [...] 468 ms QTC Calculation(Bazett) 533 ms P [place] 77 degrees R [place] 73 degrees T [place] 86 degrees Normal sinus rhythm Left ventricular [...] 518 ms QTC Calculation(Bazett) 555 ms P [place] 56 degrees R [place] 18 degrees T [place] 118 degrees Normal sinus rhythm Possible Left atrial enlarge ment Left ventricular hypertrophy Cannot rule out Septal infar ct (cited on or before 22-JAN-2016) ST & T wave abnormality, con buckler and lacer lateral ischemia Prolonged QT Abnormal ECG When [...] 486 ms QTC Calculation(Bazett) 516 ms P [place] 49 degrees R [place] 38 degrees T [place] 140 degrees Normal sinus rhythm Minimal voltage criteria for LVH, may be normal variant Septal infarct (cited on or before 22-JAN-2016) ST & T wave abnormality, con buckler and lacer lateral ischemia Prolonged QT Abnormal ECG When [...] are in the results section . after 05/19/2019 Results VASCULAR DIAGRAM -SCAN (06/27/2019 5:41 PM [...] 8.3 gm/dL [facility] Albumin 3.4 (L) 3.5 - 5.0 g/dL [facility] Alkaline Phosphatase 87 40 - 150 U/L [facility] Total Bilirubin 0.6 0.2 - 1.2 mg/dL [facility] Sodium 134 (L) 136 - 145 meq/L [facility] Potassium 4.5 3.5 - 5.1 meq/L [facility] Chloride 103 98 - 107 meq/L [facility] CO2 26 22 - 29 meq/L [facility] BUN 19 7 - 21 mg/dL [facility] Creatinine 0.80 0.57 - 1.25 mg/dL [facility] Glucose 112 (H) 70 - 105 mg/dL [facility] MALIK [facility] Calcium 8.9 8.4 - 10.2 mg/dL [facility] AST 106 (H) 5 - 34 U/L [facility] ALT 73 (H) 6 - 55 U/L [facility] EGFR 99Comment: ESTIMATED GFR mL/min/1.73 sq m IS NOT ACCURATE [facility] CREATININE CLEARANCE IN PREDICTING GLOMERULAR FILTRATION RATE. ESTIMATED GFR IS NOT APPLICABLE FOR DIALYSIS PATIENTS. Specimen Blood Performing Organization Address City/State/Zipcode Phone Number [facility] [address] [place] [address] CENTER TRANSFUSION SERVICE REPORT - SCAN (06/14/2019 6:01 PM CDT) Narrative Performed At This result has an attachment that is no t available. [place] ERCP (06/14/2019 3:25 PM CDT) Specimen Narrative Performed At FINAL REPORT [facility] A fluoroscopic unit was utilized for a [...] Verified Date/Time: 06/16/2019 1 2:50:49 Reading Location: [facility] Radiolog y Reading Room Performing Organization Address City/[facility]/Zipcode Phone Number GE RIS Tissue Exam (06/14/2019 3:21 PM CDT) Case Report Surgical Pathology Report Case: [id number] [facility] Authorizing Provider:Caleb Wilson Collected: 06/14/[address] [place] [address] MD Carmen Ordering Location: [address] Received:06/15/2019 0756 Service Pathologist: Misty Jackson MD Specimen:Ampulla, Am maday Bx DIAGNOSIS A. "AMPULLA", BIOPSY: [facility] - SQUAMOUS AND FOVEOLAR TYPE MUCOSA WITH MILD CHRONIC INFLAMMATION [facility] - NEGATIVE FOR MALIGNANCY (SEE COMMENT) Signing Pathologist Direct Phone Line: COMMENT The biopsy shows fragments [facility] of squamous and foveolar [facility] type mucosa with mild chronic inflammation and cautery. Focal muscle is also seen. No definite small bowel/ biliary lining is seen. The ampulla normally does not have squamous lining. This could be a metaplastic change. Clinical and endoscopic correlation is required. CPT Code(s) 04690 [facility] CLINICAL HISTORY Pre and postop diagnosis: en doscopic ultrasound with endo, EUS and possible ERCP. [facility] Pre and postop diagnosis: abdominal pain MEDICAL CENTER SPECIMEN SOURCE Ampulla, ampulla Bx [facility] GROSS DESCRIPTION .Received in formalin [facility] labeled with the patient's [facility] name, accession number and "ampulla" is a 0.3 x 0.3 x 0.2 cm piece of meehan-brown, irregular, mucosal-covered tissue. The specimen submitted in toto following filtration in cassette A1. SS/pl MICROSCOPIC DESCRIPTION Performed. [facility] Specimen Tissue - Ampulla Performing Organization Address City/[facility]/Zipcode Phone Number [facility] MEDICAL [address] [place] [address] CENTER CBC (Hemogram only) (06/14/2019 4:22 AM CDT)Only the most recent of3 results within the time period is included. WBC 8.7 3.5 - 10.5 K/L [facility] RBC 4.05 (L) 4.63 - 6.08 M/L [facility] Hemoglobin 12.5 (L) 13.7 - 17.5 GM/DL [facility] Hematocrit 38.1 (L) 40.1 - 51.0 % [facility] MCV 94.1 (H) 79.0 - 92.2 fL [facility] MCH 30.9 25.7 - 32.2 pg [facility] MCHC 32.8 32.3 - 36.5 GM/DL [facility] RDW 13.3 11.6 - 14.4 % [facility] Platelets 198 150 - 450 K/CU MM [facility] MPV 11.4Comment: 9.4 - 12.4 fL [facility] MPV-Approximately 20% MEDICAL CE [facility]TER positive bias due to method change. nRBC 0 0 - 0 /100 WBC [facility] Specimen Blood Performing Organization Address City/State/Zipcode Phone Number [address] [address] CENTER POC ACTIVATED CLOTTING TIME (06/13/2019 4:09 PM CDT) Activated Clotting Time 125Comment: TESTED AT sec CH I [address] [address] Specimen Blood Performing Organization Address City/[facility]/Zipcode Phone Number [address] [address] CENTER Type and screen, automated ([facility]) (06/13/2019 5:01 AM CDT) ABO/RH AUTOMATED (BEAKER) B POSITIVE [facility] Ab Scrn NEGATIVE [facility] Specimen Blood Performing Organization Address City/State/Zipcode Phone Number [facility] [address] [place] [address] nm myocardial perfusion PET (rest and stress) (06/12/2019 3:56 PM CDT) Specimen Narrative Performed At FINAL REPORT Spontaneously PROCEDURE: MYOCARDIAL PERFUSION PET IMAG ING (Rest/Stress) CPT CODE: 82911 INDICATION: Evaluate acute chest pain/di scomfort CARDIOVASCULAR [...] MD Report Verified Date/Time:06/12/2019 16:40:23 Reading Location: [place] [id number] Reading Room Procedure Note Interface, External Ris In - 06/12/2019 4:42 PM CDT FINAL REPORT PROCEDURE: MYOCARDIAL PERFUSION PET IMAG ING (Rest/Stress) CPT CODE: 22834 INDICATION: Evaluate acute chest pain/di scomfort CARDIOVASCULAR [...] Verified Date/Time: 06/12/2019 1 6:40:23 Reading Location: [address] P327[facility] Reading Room Performing Organization Address City/State/Zipcode Phone Number GE RIS Treadmill tolerance(Non-Nuclear Treadmill) (06/12/2019 3:35 PM CDT) Specimen Narrative Performed At Protocol Name RegRun3D MUSE Time In Exercise Phase 00:01:00 Max. [...] on 06/23/2019 6:48:32 AM Performing Organization Address City/[facility] Phone Number GE MUSE ECG 12 lead (06/12/2019 3:33 PM CDT)Only the most recent of4 resultswithin the time period is included. Specimen Narrative Performed At Ventricular Rate 77 BPM GE MUSE Atrial Rate 77 BPM P-R Interval 154 ms QRS Duration 112 ms Q-T Interval 500 ms QTC Calculation(Bazett) 565 ms P [place] 77 degrees R [place] 73 degrees T [place] 83 degrees Normal sinus rhythm Incomplete right [...] 500 ms QTC Calculation(Bazett) 565 ms P [place] 77 degrees R [place] 73 degrees T [place] 83 degrees Normal sinus rhythm Incomplete right bundle branch block Left ventricular hypertrophy with repola rization abnormality Cannot rule out Septal infarct , age und etermined Prolonged QT Abnormal ECG Confirmed by MD VELEZ JOSEPH P ([id number]) on 06/13/2019 6:36:31 AM Performing Organization Address [facility] Phone Number [employer] MUSE Troponin I (06/12/2019 1:09 AM CDT)Only the most recent of4 resultswithin the time period is included. Troponin I 0.05 (H) 0.00 - 0.03 ng/mL [facility] Specimen Blood Narrative Performed At Troponin I (TnI) levels must be interpreted [facility] in the context of the presenting [...] disease, and persistent tachyarrhythmia. Performing Organization Address City/State/[facility] Phone Number [address] [address] [place] Vancomycin level, trough (06/12/2019 1:09 AM CDT) Vancomycin Tr 11.6 10.0 - 20.0 ug/mL [facility] Specimen Blood Narrative Performed At Please HOLD the dose until the trough comes [facility] back. If >20 mcg/ml, DO NOT administer the dose and contact the pharmacist. Performing Organization Address [facility] Phone Number [address] [address] [place] Hepatic function panel (06/12/2019 1:09 AM CDT)Only the most recent of4 results within the time period is included. Protein, Total 6.6 6.0 - 8.3 gm/dL [facility] Albumin 3.3 (L) 3.5 - 5.0 g/dL [facility] Total Bilirubin 0.5 0.2 - 1.2 mg/dL [facility] Bilirubin, Direct 0.4 0.1 - 0.5 mg/dL [facility] Alkaline Phosphatase 39 (L) 40 - 150 U/L [facility] AST 22 5 - 34 U/L [facility] ALT 26 6 - 55 U/L [facility] Specimen Blood Performing Organization Address [facility] Phone Number [address] [address] [place] Basic metabolic panel (06/12/2019 1:09 AM CDT)Only the most recent of4 results within the time period is included. Sodium 135 (L) 136 - 145 meq/L [facility] Potassium 3.7 3.5 - 5.1 meq/L [facility] Chloride 105 98 - 107 meq/L [facility] CO2 24 22 - 29 meq/L [facility] BUN 14 7 - 21 mg/dL [facility] Creatinine 0.78 0.57 - 1.25 mg/dL [facility] Glucose 144 (H) 70 - 105 mg/dL [facility] Calcium 8.3 (L) 8.4 - 10.2 mg/dL [facility] EGFR 102Comment: ESTIMATED GFR IS mL/min/1.73 sq m [facility] NOT ACCURATE CREATININE [facility] CLEARANCE IN PREDICTING GLOMERULAR FILTRATION RATE. ESTIMATED GFR IS NOT APPLICABLE FOR DIALYSIS PATIENTS. Specimen Blood Performing Organization Address City/[facility] Phone Number [address] [address] [place] Blood Culture - Routine (Left Venipuncture) (06/11/2019 8:46 AM CDT)Only the most recent of5 resultswithin the time period is included. Result No growth in 5 days [facility] Specimen Blood Performing Organization Address City/[facility] Phone Number [address] [address] [place] Procalcitonin (06/11/2019 5:41 AM CDT)Only the most recent of2 resultswithin the time period is included. Procalcitonin 0.30 (H) <0.05 ng/mL [facility] Specimen Blood Narrative Performed At SEPSIS RISK (ng/mL) [facility] Low:0.05-0.50 Intermediate: 0.51-2.00 High: >=2.01 Performing Organization Address City/State/Zipcode Phone Number [facility] [address] [place] [address] CENTER ECHOCARDIOGRAM REPORT - SCAN (06/10/2019 9:21 PM CDT) Narrative Performed At This result has an attachment that is no t available. 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0 (L) 40.1 - 51.0 % [facility] MCV 94.9 (H) 79.0 - 92.2 fL [facility] MCH 30.8 25.7 - 32.2 pg [facility] MCHC 32.4 32.3 - 36.5 GM/DL [facility] RDW 14.2 11.6 - 14.4 % [facility] Platelets 195 150 - 450 K/CU MM [facility] MPV 11.5 9.4 - 12.4 fL [facility] nRBC 0 0 - 0 /100 WBC [facility] % Neutros 83 % [facility] % Lymphs 10 % [facility] % Monos 7 % [facility] % Eos 1 % [facility] % Baso 0 % [facility] # Neutros 15.28 (H) 1.78 - 5.38 K/L [facility] # Lymphs 1.77 1.32 - 3.57 K/L [facility] # Monos 1.20 (H) 0.30 - 0.82 K/L [facility] # Eos 0.09 0.04 - 0.54 K/L [facility] # Baso 0.05 0.01 - 0.08 K/L [facility] Immature 1 0 - 1 % [facility] Granulocytes-Relative [facility]TER Specimen Blood Performing Organization Address City/[facility]/Zipcode Phone Number [address] [address] [place] Lactic acid, venous, Daily (06/10/2019 4:09 AM CDT)Only the most recent of2 resultswithin the time period is included. Lactate, Venous 1.1 0.5 - 2.2 mmol/L [facility] Specimen Blood Performing Organization Address City/[facility]/Zipcode Phone Number [address] [address] [place] Magnesium (06/10/2019 4:09 AM CDT)Only the most recent of2 resultswithin the time period is included. Magnesium 2.1 1.6 - 2.6 mg/dL [facility] Specimen Blood Performing Organization Address City/[facility]/Zipcode Phone Number [address] [address] [place] Lipid panel (06/10/2019 4:09 AM CDT) Triglycerides 97 mg/dL [facility] Cholesterol 124 mg/dL [facility] HDL 34 mg/dL [facility] LDL Calculated 71 mg/dL [facility] Specimen Blood Narrative Performed At Triglyceride Reference Range: [facility] Low Risk <150 [id number] High Risk 200-499 Very High Risk>=500 Cholesterol Reference Range: Low Risk <200 [id number] High Risk>240 HDL Cholesterol Reference Range: Low Risk >=60 High Risk <40 LDL Cholesterol Reference Range: Optimal<100 Near [id number] [id number] Vjro419-200 Very High >=190 Performing Organization Address [facility] Phone Number [address] [address] [place] Oxygen saturation, measured (06/10/2019 2:44 AM CDT) O2 Saturation (Measured) 86.6 % [facility] Specimen Blood Narrative Performed At If patient has internal jugular ( IJ) or [facility] subclavian central line or PICC line. Draw from distal port. Label as central venous oxygen. Performing Organization Address [facility] Phone Number [address] [address] [place] Urinalysis w/Microscopic + Reflex to Culture (06/10/2019 2:29 AM CDT) Color, UA Yellow [facility] Clarity, UA Hazy [facility] Specific [place], UA 1.030 1.001 - 1.035 [facility] pH, UA 5.5 5.0 - 8.0 [facility] Protein, UA 70 mg/dL (A) Negative [facility] Glucose, UA 200 mg/dL (A) Negative [facility] Ketones, UA Trace (A) Negative [facility] Bilirubin, UA Negative Negative [facility] Blood, UA Negative Negative [facility] Nitrite, UA Negative Negative [facility] Leukocytes, UA Large (A) Negative [facility] Urobilinogen, UA 2.0 (H) 0.2 - 1.0 mg/dL [facility] RBC, UA 7 /HPF [facility] WBC, UA 135 /HPF [facility] Mucus Occasional [facility] Squam Epithel, UA 10 /HPF [facility] Hyaline Casts, UA 18 /LPF [facility] Specimen Source [facility] Specimen Urine Performing Organization Address City/[facility] Phone Number [address] [address] [place] Urine culture (06/10/2019 2:29 AM CDT) Result No growth [facility] Specimen Urine Performing Organization Address [facility] Phone Number [address] [address] [place] Blood gas, arterial (06/09/2019 10:10 PM CDT) pH, Arterial 7.41 7.35 - 7.45 [facility] pCO2, Arterial 38 35 - 45 mmHg [facility] pO2, Arterial 87 80 - 90 mmHg [facility] O2 Sat, Arterial 96.8 96.0 - 97.0 % [facility] HCO3, Arterial 24 21 - 29 mmol/L [facility] Base Excess, Arterial -0.7 -2.0 - 3.0 mmol/L [facility] Patient Temperature 37.0 C [facility] FIO2 21.0 % [facility] Specimen Blood, Arterial Performing Organization Address City/[facility] Phone Number [address] [address] CENTER aPTT (06/09/2019 10:06 PM CDT) PTT 27.3 22.5 - 36.0 seconds [facility] Specimen Blood Performing Organization Address [facility] Phone Number [address] [address] CENTER Prothrombin time/INR (06/09/2019 10:06 PM CDT) Protime 13.9 11.9 - 14.2 seconds [facility] INR 1.1 <=5.9 [facility] Specimen Blood Narrative Performed At Effective 03/22/2019: PT Reference Range [facility] Change New: 11.9-14.2Previous: 11.7-14.7 RECOMMENDED COUMADIN/WARFARIN INR THERAPY RANGES STANDARD DOSE: 2.0-3.0Includes: PROPHYLAXIS for venous thrombosis, systemic embolization; TREATMENT for venous thrombosis and/or pulmonary embolus. HIGH RISK: Target INR is 2.5-3.5 for patients wiht mechanical heart valves. Performing Organization Address [facility] Phone Number [address] [address] CENTER Fibrinogen (06/09/2019 10:06 PM CDT) Fibrinogen 300 225 - 434 mg/dl [facility] Specimen Blood Performing Organization Address City/[facility]/Zipcode Phone Number [address] [address] CENTER Phosphorus (06/09/2019 9:54 PM CDT) Phosphorus 3.4 2.3 - 4.7 mg/dL [facility] Specimen Blood Performing Organization Address [facility] Phone Number [address] [address] CENTER Lipase (06/09/2019 9:54 PM CDT) Lipase 38 8 - 78 U/L [facility] Specimen Blood Performing Organization Address City/[facility]/Zipcode Phone Number [address] [address] CENTER POC-Lactic Acid, Venous (06/09/2019 9:49 PM CDT) POC-Lactic Acid, Venous 1.6Comment: TESTED AT 0.9 - 1.7 mmol/L [facility] [address] [facility] [address] Specimen Blood Performing Organization Address City/[facility]/Zipcode Phone Number [facility] [address] [place] [address] [place] after 05/19/2019 Insurance Payer Benefit Plan / Group Subscriber ID Type Phone A ddress [employer] - MEDICARE UNITED MED[employer]ARE HMO xxxxxxxxx [facility] ([place] [place] [address] Advance Directives For more information, please contact:[address] [phone] Code Status Date Activated Date Inactivated Comments [...]
--- OUTSIDE RECORDS SUMMARY | 2020-05-19 13:18 | XMS REPORT | Continuity of Care Document ---
:1960 Author Organization [email or web address] Care Team Providers Name Role Phone [email or web address] Unavailable Un available Problems Problem Status Onset Classification Date Comments Sourc e Date Reported M54.16 - Active [facility]ID "RADICULOPA 0 [facility] THY, LUMBAR REGION" UNK Active [facility] 0 Edwin RADICULOPAT Active [facility] HY, LUMBAR 0 Edwin REGION M54.[address] RADICULOPAT 9 HY, LUMBAR REGION Medications Medication Details Route Status Patient Ordering Order Source Instructions Provider Date Oxycodone 2 tab, Route: Inactive Hydrochloride 5 PO, ONCE, [address] [place] Oral Tablet Dosing Weight 63.636, kg, Start date: 01/02/20 15:04:00 CDT, Stop date: 01/02/20 15:04:00 CDT Labetalol Notes: (Same Inactive as: Normodyne, 2019 [place] Trandate) Push over 2 minutes Give bolus over 2-3 minutes. Ketorolac 4 days Inactive MEDICATION 2019 [place] WASTE Product Size: 30 mg Product Wasted: ___ mg Acetaminophen Notes: Max Inactive acetaminophen 2019 [place] 4000 mg/day (4 gm/day). (Same as: Tylenol Extra Strength) Fentanyl Notes: (Same Inactive as: Sublimaze) 2019 [place] Preservative free. Hydromorphone Notes: Same as: Inactive H Dilaudid 2019 [place] Naloxone Notes: Same as Inactive Narcan 2019 [place] Meperidine Notes: (Same Inactive as: Demerol) 2019 [place] "Use Precaution in Elderly, Seizure disorders, and Renal impairment&quot ; Ondansetron Notes: (Same Inactive as: Zofran) 2019 [place] MEDICATION WASTE Product Size: 4 mg Product Wasted: ___ mg sugammadex (ANES) Route: IV, Drug Inactive 01/01 / MH form: SOLN, 2019land ONCE, Stop date: 01/02/20 14:14:00 CDT glycopyrrolate Route: IV, Drug Inactive 01/01/ MH (ANES) form: INJ, 2019[place] ONCE, Stop date: 01/02/20 14:11:00 CDT norepinephrine Route: IV, Drug Inactive 01/01/ MH (ANES) form: INJ, [place] ONCE, Stop date: 01/02/20 14:11:00 CDT vasopressin Route: IV, Drug Inactive 01/01/ MH (ANES) form: INJ, [place] , Stop date: 01/02/20 14:11:00 CDT lidocaine (ANES) Route: IV, Drug Inactive 01/01/ MH form: INJ, [place] , Stop date: 01/02/20 14:11:00 CDT fentaNYL (ANES) Route: IV, Drug Inactive 01/01/ MH form: INJ, [place] , Stop date: 01/02/20 14:11:00 CDT propofol (ANES) Route: IV, Drug Inactive 01/01/ MH form: INJ, [place] , Stop date: 01/02/20 14:11:00 CDT rocuronium (ANES) Route: IV, Drug Inactive 01/01 / MH form: INJ, [place] , Stop date: 01/02/20 14:11:00 CDT diphenhydrAMINE Route: IV, Drug Inactive 01/01/ MH (ANES) form: INJ, [place] ONCE, Stop date: 01/02/20 14:05:00 CDT acetaminophen Route: IV, Drug Inactive 01/01/ M H (ANES) form: INJ, 2019, Stop date: 01/02/20 14:05:00 CDT ePHEDrine (ANES) Route: IV, Drug Inactive 01/01/ MH form: INJ, [place] , Stop date: 01/02/20 14:05:00 CDT phenylephrine Route: IV, Drug Inactive 01/01/ M H (ANES) form: INJ, [place] ONCE, Stop date: 01/02/20 14:05:00 CDT ceFAZolin (ANES) Route: IV, Drug Inactive form: INJ, 2019 [place] ONCE, Stop date: 01/02/20 14:00:00 CDT ondansetron Route: IV, Drug Inactive (ANES) form: INJ, 2019 [place] ONCE, Stop date: 01/02/20 14:00:00 CDT dexamethasone Route: IV, Drug Inactive M H (ANES) form: INJ, 2019 [place] ONCE, Stop date: 01/02/20 14:00:00 CDT metoclopramide Route: IV, Drug Inactive (ANES) form: INJ, 2019 [place] ONCE, Stop date: 01/02/20 14:00:00 CDT midazolam (ANES) Route: IV, Drug Inactive form: SOLN, 2019 [place] ONCE, Stop date: 01/02/20 13:55:00 CDT Lactated Ringers Route: IV, Inactive Injection IV Total Volume: 2019 Emily and (ANES) 1000 mL 1,000, Start date: 01/02/20 12:38:00 CDT, Stop date: 01/02/20 13:38:00 CDT Dilaudid Notes: Same as: Inactive Dilaudid 2019 [place] Calcium Chloride 1,000 mL, 1000 Inactive 0.0014 MEQ/ML / ml/hr, Infuse 2019 [facility] Potassium Over: 1 hr, Chloride 0.004 Route: IV, MEQ/ML / Sodium 1,000, Drug Chloride 0.103 form: INJ, PRE MEQ/ML / Sodium OP, Dosing Lactate 0.028 Weight 63.636 MEQ/ML Injectable kg, Start date: Solution 01/02/20 11:00:00 CDT, Duration: 1 doses or times, Bolus, 0 Calcium Chloride 1,000 mL, Rate: Inactive 0.0014 MEQ/ML / 75 ml/hr, [address] [place] Potassium Infuse over: Chloride 0.004 13.3 hr, Route: MEQ/ML / Sodium IV, Dosing Chloride 0.103 Weight 63.636 MEQ/ML / Sodium kg, Total Lactate 0.028 Volume: 1,000, MEQ/ML Injectable Start date: Solution 01/02/20 10:38:00 CDT, Duration: 30 day, Stop date: 02/01/20 10:37:00 CDT, 1.66, m2, 0 Dilaudid 0.5 mg, Route: Inactive IV, ONCE, 2019 [place] Dosing Weight 63.636, kg, Start date: 01/02/20 10:36:00 CDT, Stop date: 01/02/20 10:36:00 CDT oxyCODONE 10 mg 10 mg, Route: Inactive 12/12/ M H extended release PO, Drug form: 2019 [place] ERTAB, ONCE, Start date: 12/12/19 14:16:00 MILK TREATER, Stop date: 12/12/19 14:16:00 MILK TREATER oxyCODONE 10 mg 10 mg, Route: Inactive 12/12/ M H extended release PO, Drug form: 2019 [place] ERTAB, ONCE, Start date: 12/12/19 14:09:00 MILK TREATER, Stop date: 12/12/19 14:09:00 MILK TREATER Dilaudid Notes: Same as: Inactive Dilaudid 2019 [place] Oxycodone Notes: (Same Inactive Hydrochloride 5 as: Roxicodone) 2019 [place] MG Oral Tablet Calcium Chloride 1,000 mL, Rate: Inactive 0.0014 MEQ/ML / 75 ml/hr, 2019 [facility] Potassium Infuse over: Chloride 0.004 13.3 hr, Route: MEQ/ML / Sodium IV, Dosing Chloride 0.103 Weight 63.636 MEQ/ML / Sodium kg, Total Lactate 0.028 Volume: 1,000, MEQ/ML Injectable Start date: Solution 12/12/19 12:05:00 MILK TREATER, Duration: 30 day, Stop date: 01/11/20 12:04:00 CDT, 1.66, m2, 0 Nitroglycerin 0.4 0.4 mg = 1 tab, Active MG Sublingual SL, Q5Min, PRN 2019 [place] Tablet as needed for chest pain, 0 Refill(s) Lisinopril PO, Daily, 0 No Longer Refill(s) Active 2019 [place] Amitriptyline PO, Bedtime, 0 Active Refill(s) 2019 [place] 24 HR carvedilol 20 mg = 1 cap, Active phosphate 20 MG PO, BID, 0 2019 Emily and Extended Release Refill(s) Capsule [Coreg] 12 HR ranolazine 1,000 mg = 1 Inactive H 1000 MG Extended tab, PO, BID, 0 2019 [place] Release Tablet Refill(s) [Ranexa] Clonidine 0.2 mg = 1 tab, Active Hydrochloride 0.2 PO, BID, PRN 2020 [place] MG Oral Tablet Hypertension, 0 Refill(s) lisinopril 20 mg 20 mg = 1 tab, No Longer oral tablet PO, Daily, 0 Active 2019 [place] Refill(s) AMIODarone 200 mg 200 mg = 1 tab, Active oral tablet PO, BID, 0 2019 [place] Refill(s) Potassium 20 mEq, PO, Active Chloride Daily, 0 2019 [place] Refill(s) Omnipaque 180 Notes: (Same Inactive as:Omnipaque 2019 [place] 180). WASTE: F/P - Black; E - Municipal Trash Bin Allergies, Adverse Reactions, Alerts Substance Category Reaction Severity Reaction Status Date Comments S ource type Reported penicillins Assertion Drug Active MH allergy [place] codeine Assertion Drug Active OPI D allergy [facility] penicillin Assertion Drug Active [facility] allergy [facility] morphine Assertion Drug Active OP ID allergy [facility] Immunizations Immunization Date Site Status Last Comments Source Given Updated pneumococcal Left completed Vanessa al MH 23-valent 8 deltoid P[place],M H vaccine OPID [facility] Results Order Name Results Value Reference Date Interpretation Comments Anne Marie rce Range CHEM PANEL Total Protein 7.9 6.4 - 8.4 12/12 [place] CHEM PANEL Albumin Lvl 3.4 3.5 - 5.0 12/12 [place] CHEM PANEL ALT 39 0 - 65 12/12 [place] CHEM PANEL AST 32 0 - 37 12/12 [place] CHEM PANEL Alk Phos 49 39 - 136 12/12 [place] CHEM PANEL Bili Total 0.5 0.2 - 1.3 12/12 [place] CHEM PANEL Bili Direct 0.2 0.0 - 0.3 12/12 [place] CHEM PANEL Bili Indirect 0.3 0.0 - 1.0 12/12 [place] CHEM PANEL Globulin 4.5 2.7 - 4.2 12/12 [place] CHEM PANEL A/G Ratio 0.8 0.7 - 1.6 12/12 [place] CHEM PANEL Glucose Lvl 83 70 - 99 12/12 [place] CHEM PANEL BUN 20 7 - 22 12/12 [place] CHEM PANEL Creatinine 1.42 0.50 - 1.40 12/12 MH Lvl /2019 [place] CHEM PANEL Sodium Lvl 139 135 - 145 12/12 [place] CHEM PANEL Potassium Lvl 3.6 3.5 - 5.1 12/12 [place] CHEM PANEL Chloride Lvl 108 95 - 109 12/12 [place] CHEM PANEL CO2 27 24 - 32 12/12 [place] CHEM PANEL Calcium Lvl 8.8 8.5 - 10.5 12/12 [place] CHEM PANEL AGAP 7.6 10.0 - 20.0 12/12 [place] CHEM PANEL eGFR 53 12/12 Result Comment: The [place] eGFR is calculated using the CKD-EPI formula. In most young, healthy individuals the eGFR will be >90 mL/min/1.73m2 . The eGFR declines with age. An eGFR of 60-89 may be normal in some populations, particularly the elderly, for whom the CKD-EPI formula has not been extensively validated. Use of the eGFR is not recommended in the following populations:< br/>
Marlene viduals with unstable creatinine concentration s, including patients and those with serious co-morbid conditions.<b r/>
Patie nts with extremes in muscle mass or diet.

The data above are obtained from the National Kidney Disease Education Program (NKDEP) which additionally recommends that when the eGFR is used in patients with extremes of body mass index for purposes of drug dosing, the eGFR should be multiplied by the estimated BMI. HEMATOLOGY WBC 9.5 3.7 - 10.4 12/12 [place] HEMATOLOGY RBC 4.50 4.70 - 6.10 12/12 [place] HEMATOLOGY Hgb 13.5 14.0 - 18.0 12/12 [place] HEMATOLOGY Hct 40.8 42.0 - 54.0 12/12 [place] HEMATOLOGY MCV 90.8 80.0 - 94.0 12/12 [place] HEMATOLOGY MCH 30.1 27.0 - 31.0 12/12 [place] HEMATOLOGY MCHC 33.1 32.0 - 36.0 12/12 [place] HEMATOLOGY RDW 13.6 11.5 - 14.5 12/12 [place] HEMATOLOGY Platelet 225 133 - 450 12/12 [place] HEMATOLOGY MPV 8.8 7.4 - 10.4 12/12 [place] HEMATOLOGY PT 13.2 12.0 - 14.7 12/12 [place] HEMATOLOGY INR 1.00 0.85 - 1.17 12/12 [place] HEMATOLOGY PTT 31.1 22.9 - 35.8 12/12 [place] HEMATOLOGY Segs 62.8 45.0 - 75.0 12/12 [place] HEMATOLOGY Lymphocytes 22.8 20.0 - 40.0 12/12 [place] HEMATOLOGY Monocytes 8.5 2.0 - 12.0 12/12 [place] HEMATOLOGY Eosinophils 4.9 0.0 - 4.0 12/12 [place] HEMATOLOGY Basophils 1.0 0.0 - 1.0 12/12 [place] HEMATOLOGY Neutrophils # 5.9 1.5 - 8.1 12/12 [place] HEMATOLOGY Lymphocytes # 2.2 1.0 - 5.5 12/12 [place] HEMATOLOGY Monocytes # 0.8 0.0 - 0.8 12/12 [place] HEMATOLOGY Eosinophils # 0.5 0.0 - 0.5 12/12 [place] HEMATOLOGY Basophils # 0.1 0.0 - 0.2 12/12 [place] SPECIAL Hgb A1C 6.3 <=5.6 % 12/12 CHEMISTRY /2019 [place] Pathology Reports No Data Provided for This Section Diagnostic Reports Report Value Date Source Spine lumbar wo Spine lumbar wo contrast CT 04/19/2020 10:05 CDT 04/19/[address] [facility] [address] CLINICAL INDICATION: - lbp; TECHNIQUE: Contiguous axial CT images of the lumbar spine. Intravenous contrast: None. DLP 808 mGy-cm. This exam was performed acco rding to our department dose optimization protocol, which includes automated exposure control, adjustment of the mA and/or kV according to patient size and/or use of iterative reconstruction technique. COMPARISON: 10/27/2019 CT myelogram FINDINGS: Vertebrae: No acute fracture identified. There are 5 lumbar-type vertebra. L3-L4 mild facet arthrosis a nd ligamenta flava thickening are present. Mild disc bulge with mild central canal stenosis. Mild bilateral foraminal stenosis due to disc bulge encroachment. L4-L5 laminectomy changes ar e again seen with central disc protrusion. No thecal sac stenosis due to the laminectomy. Moderate to severe bilateral foraminal stenosis due to disc osteophyte complex encroachment. L5-S1 annular calcifications are stable. Mild disc bulge. No thecal sac stenosis. Moderate bilateral foraminal stenosis due to disc osteophyte complex encroachment is present Other: Significant abdominal aortic atherosclerotic calcifications are present. IMPRESSION: 1. L4-L5 laminectomy with di sc protrusion. No thecal sac stenosis. Moderate to severe bilateral foraminal stenosis. 2. L5-S1 moderate bilateral foraminal stenosis. 3. Significant aortic atherosclerosis. Chest 1view DX PROCEDURE INFORMATION: 12/12/2019 [facility] Exam: XR Chest, 1 View Exam date and time: 12/12/2019 12:12 PM Age: 58 years old Clinical indication: Shortness of breath/sob preop TECHNIQUE: Imaging protocol: XR of the chest Views: 1 view. COMPARISON: No relevant prior studies available . Lungs: There are normal lung volumes without int erstitial or airspace opacities. Pleural space: There are no pleural effusions or pneumothorax. Heart/Mediastinum: The heart size is normal. The pulmonary vasculature is normal. The mediastinal contour is normal. The t rachea is in the midline. Bones/joints: No acute abnormalities. IMPRESSION: 1. No one view chest radiographic evidence of ac lebron cardiopulmonary disease. Armand Dodd MD On 12/12/2019 12:46:19; [facility] [id number] Spine lumbar Radiation Dose CTDIVOL = 0 (mGy): DLP = 307 (mGy -cm) 10/27/2019 [facility] myelogram CT PROCEDURE INFORMATION: Exam: CT Lumbar Spine Without Contrast Exam date and time: 10/27/2019 11:26 AM Age: 58 years old Clinical indication: Radiculopathy, lumbar regio n; Additional info: /m54.16 radiculopathy, lumbar region. Back pain and ataxia. Bilateral leg weakness and numbness. TECHNIQUE: Imaging protocol: Computed tomography images of the lumbar spine without contrast. Total DLP: 307 mGy-cm Radiation optimization: All CT scans at this facility use at least one of these dose optimization techniques: automated exposure control; mA and/or kV adjustment per patient size (includes targeted e xams where dose is matched to clinical indication); or iterative reconstructio n. COMPARISON: SPINE LUMBAR MYELOGRAM DX 10/27/2019 9:28 AM FINDINGS: Optimal subarachnoid contrast opacific ation is present. Vertebrae: No acute fracture. Normal alignment. Discs/Spinal canal/Neural foramina: T12-L1: No significant disc protrusion, spinal c anal narrowing, or neural foraminal narrowing. L1-L2: No significant disc protrusion, spinal ca nal narrowing, or neural foraminal narrowing. L2-L3: No significant disc protrusion, spinal ca nal narrowing, or neural foraminal narrowing. Mild facet arthrosis. L3-4: Mild diffuse disc bulge without focal prot rusion. No significant spinal canal narrowing or neural foraminal narrowing. M ild facet arthrosis. L4-L5: Diffuse left asymmetric disc extrusion wi th probable about 1.2 cm left central superior disc extension along the L4 cor juanito and facet arthrosis are present resulting in marked left lateral recess encroachment and moderate to severe left foraminal encroachment possibly impi nging on the exiting L4 nerve roots. Limited evaluation for sequestere d disc fragment. Please correlate with neurologic symptoms. L5-S1: Mild diffuse disc bulge. No significant s zoila stenosis. Moderate to severe bilateral foraminal stenosis is present. Please correlate with neurologic symptoms. Soft tissues: Unremarkable. IMPRESSION: 1. Multilevel degenerative disease and marked fa cet arthrosis, most severe at L4-L5 with probable disc herniation as detailed above. Please correlate neurologic symptoms. 2. No definite acute compression fracture or pat hologic subluxation. Theodore Iniguez MD On 10/27/2019 15:50:43; [facility] [id number] Spine lumbar PROCEDURE INFORMATION: 10/27/2019 [facility] myel[facility] DX Exam: IR Myelography with im age guidance; Radiological Supervision and Interpretation Exam date and time: 10/27/2019 9:28 AM Age: 58 years old Clinical indication: Condition or disease; Addit ional info: /m54.16 radiculopathy, lumbar region TECHNIQUE: Imaging protocol: Radiology procedure. Myelograp hy with image guidance. Radiological supervision and interpretation. The interpreting physician was present and supervised the procedure. COMPARISON: No relevant prior studies available. FINDINGS: Consent: The procedure, risks, benefits and alternatives of the procedure were discussed. Informed consent was obtained. Timeou t was performed prior to the procedure. Sedation time: The personal supervised moderate sedation time was # minutes. Procedure summary: The patient was placed in the prone position. Po sterior lower back was sterilely prepped and draped. 1% lidocaine was u sed for local anesthesia. 22-gauge spinal needle was a dvanced through the posterior L2-L3 space, into the central canal. Images were obtained to document the needle position. Contrast was instilled into the lumbar thecal sac. Inner stylet was replaced, and the needle was removed. Pressure was applied at the puncture site with adequate hemostasis. Sterile dressing was applied. The pa tient had no complaints and there were no evident complications. Patient was placed in Trendelenburg position and intrathecal contrast column was visualized moving cranially with flu oroscopic guidance. The patient's head was maintained in extension position. Other findings: Reference air kerma: 81.97 mGy Fluoroscopy time: 5 Number of fluoro spot images: 9 IMPRESSION: Successful lumbar myelogram. Please refer to CT lumbar myelogram report for full details. Theodore Iniguez MD On 10/27/2019 13:07:05; [facility] [id number] Consultation Notes No Data Provided for This Section Discharge Summaries No Data Provided for This Section History and Physicals No Data Provided for This Section Vital Signs Vital Sign Value Date Comments Source Respitory Rate 10 01/02/2020 [facility] Systolic (mm Hg) 132 01/02/2020 [facility] Diastolic (mm Hg) 82 01/02/2020 [facility] Respitory Rate 13 01/02/2020 [facility] Systolic (mm Hg) 113 01/02/2020 [facility] Diastolic (mm Hg) 76 [facility] 10 01/02/2020 [facility] Systolic (mm Hg) 126 01/02/2020 [facility] Diastolic (mm Hg) 77 [facility] Height 175.26 cm 01/02/2020 [facility] Weight 63.636 01/02/2020 [facility] BMI Calculated 20.72 01/02/2020 [facility] Height 152.4 cm 12/11/2019 [facility] Weight 63.636 12/11/2019 [facility] BMI Calculated 27.4 12/11/2019 [facility] Encounters Location Location Encounter Encounter Reason Attending ADM DC Stat us Source Details Type Number For Provider Date Date Visit [facility] Outpatient [id number] Tay 10/27 10/28 Edwin Ashley II /2019 [facility] Surgery [id number] [place] 01/01 01/01 Edwin Ashley /2019 [facility] Outpt Diag [id number] Tay 04/19 04/20 [facility] Ashley II [facility] Procedures Procedure Code Date Perfomer Comments Source Bypass<sup>1</s [id number] Heart Kiran ibrahim up> bypass.[address] [facility] [id number] [facility]<sup> [id number] Back sugery with Isaiah 2</sup> katelyn placement. [facility] Sun rUSMAN [facility] Implantation<pearson [id number] Right superior Hayden best p>3</sup> hip electrical [facility] Chadi r, stimulator [facility] Neck [id number] "2 Plates and 8 Kiran ibrahim, implantation<pearson Screws in neck" MIKEL [place] p>4</sup> [facility] Assessment and Plan No Data Provided for This Section Plan of Care No Data Provided for This Section Social History Social History Date Source Social History TypeResponse 01/02/2020 [facility] Smoking Status Former smoker; Type: Cigarettes; Previou s treatment: None; Ready to change: No; Concerns about tobacco use in household: No; Exposure to Tobacco Smoke None; Cigarette Smoking Last 365 Days No; Reg Smoki ng Cessation Counseling No; Other Tobacco Frequency stopped smoking February 2018.; entered on: 01/02/20 Social History TypeResponse 01/02/2020 MIKEL [place] ir Smoking Status Former smoker; Type: Cigarettes; Previou s treatment: None; Ready to change: No; Concerns about tobacco use in household: No; Exposure to Tobacco Smoke None; Cigarette Smoking Last 365 Days No; Reg Smoki ng Cessation Counseling No; Other Tobacco Frequency stopped smoking February 2018.; entered on: 01/02/20 Social History TypeResponse 02/22/2019 [facility] Smoking Status Former smoker; Type: Cigarettes; Previou s treatment: None; Ready to change: No; Concerns about tobacco use in household: No; Exposure to Tobacco Smoke None; Cigarette Smoking Last 365 Days No; Reg Smoki ng Cessation Counseling No; Other Tobacco Frequency stopped smoking February 2018.; entered on: 02/22/19 Family History No Data Provided for This Section Advance Directives No Data Provided for This Section Functional Status No Data Provided for This Section
--- OUTSIDE RECORDS SUMMARY | 2020-05-19 13:19 | XMS REPORT | Summary of Care ---
:1960 Author Organization [facility] Outpatient Imaging [facility] ir Address [address] [address]- Encounter Encntr_alias(FIN) [id number] Date(s): 04/19/20 - 04/19/20 [facility] Outpatient Imaging [facility] [address] [id number]- [phone] Discharge Disposition: Home or Self Care Attending Physician: Tay Rose MD Referring Physician: Tay Rose MD Vital Signs No data available for this section Problem List No data available for this section Allergies, Adverse Reactions, Alerts Substance Reaction Severity Status codeine Active penicillin Active morphine Active Medications No data available for this section Results No data available for this section Immunizations Given and Recorded Vaccine Date Status Refusal Reason pneumococcal 23-valent vaccine 09/09/18 Given Procedures Procedure Date Related Diagnosis Body Site Status Bypass1 Completed Denture care Completed Discectomy2 Completed Implantation3 Completed Neck implantation4 Completed 1Heart bypass.[id number] sugery with katelyn placement.3Right superior hip electrical stimulator4"2 Plates and 8 Screws in neck" Social History Social History Type Response Smoking Status Former smoker; Type: Cigaret sherrill; Previous treatment: None; Ready to change: No; Concerns about tobacco use in household: No; Exposure to Tobacco Smoke None; Cigarette Smoking Last 365 Days No; Reg Smoking Cessation Counseling No; Other Tobacco Frequency stopped smoking February 2018.; entered on: 01/02/20 Assessment and Plan No data available for this section
--- OUTSIDE RECORDS SUMMARY | 2020-05-19 13:25 | XMS REPORT | Continuity of Care Document ---
:1960 Author Organization [facility] t Address [address] [place] [address] Care Team Providers Name Role Phone Sharpless Primary Care Physician Biju Ashley II Attending Clinician VLADISLAV MCKENNA Attending Clinician Unavailable Vladislav Mckenna MD Attending Clinician [phone] Lisa HAYES Attending Clinician Adeel HAYES Attending Clinician Brian Moulton CRNA Attending Clinician Nereyda Dawn MD Attending Clinician Alicia Moody MD Attending Clinician Divina CATHERINE Attending Clinician Unavailable Biju Ashley II Admitting Clinician VLADISLAV MCKENNA Admitting Clinician Unavailable Divina CATHERINE Admitting Clinician Unavailable Payers Payer Name Policy Type Policy Number Effective Date Expiration Date S [facility] xxxxxxxxx [facility] HMOxxxxxxxxx Problems Condition Condition Condition Status Onset Resolution Last Treating Co mments Source Name Details Category Date Date Treatment Clinician Date M54.16 - Diagnosis Active 2020-04-30 M emoria "RADICULOP 6 12:58:00 l CHEMA M54.16 - 00:01: Raúl n LUMBAR "RADICULOP 00 REGION" ATHY, LUMBAR REGION" Active 03/28/2020 [facility] UNK Diagnosis Active 2019-12-12 Mem oria 2-17 11:38:00 l UNK 00:00: [place] 00 Active 12/11/2019 [facility] [place] RADICULOPA Diagnosis Active 2020-01-02 Memoria THY, 2-17 09:54:00 l LUMBAR 00:00: [place] REGION RADICULOPA 00 THY, LUMBAR REGION Active 12/11/2019 [facility] [place] M54.16 Diagnosis Active 2018-102019-10-[address] [facility] oria RADICULOPA - 08:57:00 l THY, M54.16 00:00: [place] LUMBAR RADICULOPA 00 REGION THY, LUMBAR REGION Active 09/13/2019 [facility] Hypertensi Disease Active [facility] ve ve -20 [facility] - emergency emergency 00:00: [facility] 00 [place] Acute Acute Disease Active [facility] kidney kidney 20 [facility] - injury injury 00:00: Medical 00 [place] Diarrhea Diarrhea Disease Active [facility] - 00[facility]: Medical [place] Transamini Transamini Disease Active [facility] tis tis -20 [facility] - 00:00: Medical 00 [place] Hepatitis Hepatitis Disease Active [facility] C virus C virus 20 [facility] - infection infection 00:00: [facility] without without 00 Center hepatic hepatic coma coma Chest pain Chest pain Disease Active [facility] -16 [facility] - 00:00: Medical 00 Center Syncope Syncope Disease Active [facility] -16 [facility] - 00:00: Medical 00 [place] Paroxysmal Paroxysmal Disease Active [facility] atrial atrial 16 [facility] - fibrillati fibrillati 00:00: Me dical on on Center COPD COPD Disease Active 2018-[address] [facility] (chronic (chronic 7-16 [facility] - obstructiv obstructiv 00:00: Me dical e e 00 Center pulmonary pulmonary disease) disease) CAD CAD Disease Active [facility] (coronary (coronary 3-30 [facility] - artery artery 00:00: Medical disease) disease) 00 Center Atrial Atrial Problem Active [facility] fibrillati fibrillati Abigail kes - on, on, Memoria unspecifie unspecifie l d type d type [facility] ent Clinics Primary Primary Problem Active [facility] insomnia insomnia [facility] - Memoria l [facility] ent Clinics Left foot Left foot Problem Active [facility] pain pain [facility] - Memoria l [facility] ent Clinics Chronic Chronic Problem Active [facility] generalize generalize Abigail kes - d pain d pain Memoria l [facility] ent Clinics Closed Closed Problem Active [facility] displaced displaced Luke s - fracture fracture Memori a of first of first l metatarsal metatarsal Ou tpati bone of bone of ent left foot, left foot, Cl inics sequela sequela Arterioscl Arterioscl Problem Active [facility] erotic erotic [facility] - cardiovasc cardiovasc Me heather john ulleola l disease disease [facility] (ASCVD) (ASCVD) ent Clinics HTN HTN Problem Active [facility] (hypertens (hypertens Abigail kes - ion) ion) Memoria l [facility] ent Clinics Pure Pure Problem Active [facility] hyperchole hyperchole Abigail kes - sterolemia sterolemia Me moria l [facility] ent Clinics Dementia Dementia Problem Active [...] St emia emia [facility] - Memoria l [facility] ent Clinics Elevated Elevated Problem Active [facility] blood blood [facility] - pressure pressure Memori a reading reading l [facility] ent Clinics Abdominal Abdominal Problem Active [facility] pain pain [facility] - Memoria l [facility] ent Clinics Pulmonary Pulmonary Problem Active [facility] emphysema, emphysema, Abigail kes - unspecifie unspecifie Me moria d d l emphysema emphysema Outp ati type type ent Clinics Acute Acute Problem Active [facility] myocardial myocardial Abigail kes - infarction infarction Me heather , , l subendocar subendocar Ou tpati dial dial ent infarction infarction Cl inics Chronic Chronic Problem Active [facility] depressive depressive Abigail kes - person person Memoria l [facility] ent [facility] Problem Active [facility] discharge discharge Luke s - follow-up follow-up Flaquito radha l [facility] ent Clinics Constipati Constipati Problem Active [facility] on, on, [facility] - unspecifie unspecifie Me moria d d l constipati constipati Ou tpati on type on type ent Clinics History of History of Problem Active [facility] coronary coronary [facility] - artery artery Memoria disease disease l [facility] ent Clinics Hypertensi Hypertensi Problem Active [facility] ve ve [facility] - emergency emergency Flaquito radha l [facility] ent Clinics Chest Chest Problem Active [facility] pain, pain, [facility] - unspecifie unspecifie Me moria d type d type l [facility] ent [facility] Lumbar Lumbar Problem Active [facility] degenerati degenerati Abigail kes - ve disc ve disc Memoria disease disease l [facility] ent Clinics Bipolar 1 Bipolar [address] [facility] disorder disorder [facility] - Memoria l [facility] ent Clinics Symptomati Symptomati Problem Active [facility] c c [facility] - hypotensio hypotensio Me moria n n l [facility] ent Clinics Other Other Problem Active [facility] specified specified Luke s - urinary urinary Memoria incontinen incontinen l ce ce [facility] ent Clinics Panic Panic Problem Active [facility] attacks attacks [facility] - Memoria l [facility] ent Clinics Benign Benign Problem Active [facility] prostatic prostatic Luke s - hyperplasi hyperplasi Me moria a with a with l lower lower [facility] urinary urinary ent tract tract Clinics symptoms symptoms Moderately Moderately Problem Active [facility] severe severe [facility] - major major Memoria depression depression l [facility] ent Clinics Chronic Chronic Problem Active [facility] hepatitis hepatitis Luke s - C without C without Flaquito radha hepatic hepatic l coma coma [facility] ent Clinics Simple Simple Problem Active [facility] chronic chronic [facility] - bronchitis bronchitis Me moria l [facility] ent Clinics Cirrhosis Cirrhosis Problem Active [facility] of liver of liver [facility] - without without Memoria ascites, ascites, l unspecifie unspecifie Ou tpati d hepatic d hepatic ent cirrhosis cirrhosis Clin ics type type Complaints Complaints Problem Active [facility] of memory of memory Luke s - disturbanc disturbanc Me moria e e l [facility] ent Clinics Malignant Malignant Problem Active [facility] hypertensi hypertensi Abigail kes - ve urgency ve urgency Me moria l [facility] ent [facility] Allergies, Adverse Reactions, Alerts Allergy Allergy Status Severity Reaction(s) Onset Inactive Treating Comm ents Source Name Type Date Date Clinician Penicill DA Active [facility] ins 1-08 Clear 00:00: Pink 00 [facility] codeine DA Active [facility] 108 Clear 00:00: Pink 00 [facility] Cephalos Propensi Active Nausea And CH [...] Adverse Active rash [facility] Adverse Active vomiting [facility] porins Reaction [facility] penicill penicill Active Memori a ins ins l Edwin codeine codeine Active Memoria l Edwin penicill penicill Active Memori a in in l [place] morphine morphine Active Memori a l Edwin Social History Social Habit Start Date Stop Date Quantity Comments Source Sex Assigned At [facility] History of tobacco 2018-05-[address] [facility] - use 00[facility] [facility] Smoking Status Start Date Stop Date Source Former smoker 2019-06-14 00:00:00 2019-06-14 00:00:00 [facility] Medications Ordered Filled Start Stop Current Ordering Indication Dosage Frequency Signature Comments Components Source Medication Medication Date Date Medication? Clinician (SIG) Name Name Zofran Zofran Yes Na Heard as needed [facility] 3-19 for nausea [facility] - 00:00: Memoria 00 [facility] Oxycodone No 2 tab, Memori a Hydrochlori 3-10 Route: PO, l de 5 MG 20:04: ONCE, Edwin Oral Tablet 00 Dosing Weight 63.636, kg, Start date: 01/02/20 15:04:00 CDT, Stop date: 01/02/20 15:04:00 CDT Labetalol 2019- No Notes: Memori a 3-10 (Same as: l 19:18: Normodyne, Trandate) Push over 2 minutes Give bolus over 2-3 minutes. Ketorolac 2019-0 No 4 days Memor ia 3-10 l 19:18: MEDICATION WASTE Product Size: 30 mg Product Wasted: ___ mg Acetaminoph No Notes: Max Memoria en 3-10 acetaminop l 19:18: hen 4000 mg/day (4 gm/day). (Same as: Tylenol Extra Strength) Fentanyl No Notes: Memoria 3-10 (Same as: l 19:18: Sublimaze) Preservat alberto free. Hydromorpho No Notes: Flaquito radha ne 3-10 Same as: l 19:18: Dilaudid Naloxone 2019- No Notes: Memoria 3-10 Same as l 19:18: Narcan Meperidine No Notes: Memor ia 3-10 (Same as: l 19:18: Demerol) "Use Precaution in Elderly, Seizure disorders, and Renal impairment " Ondansetron No Notes: Flaquito radha 3-10 (Same as: l 19:18: Zofran) MEDICATION WASTE Product Size: 4 mg Product Wasted: ___ mg sugammadex No Route: IV, M emoria (ANES) 3-10 Drug form: l 19:14: SOLN, ONCE, Stop date: 01/02/20 14:14:00 CDT glycopyrrol 2019- No Route: IV, Memoria ate (ANES) 3-10 Drug form: l 19:11: INJ, ONCE, Stop date: 01/02/20 14:11:00 CDT norepinephr 2019- No Route: IV, Memoria ine (ANES) 3-10 Drug form: l 19:11: INJ, ONCE, Stop date: 01/02/20 14:11:00 CDT vasopressin 2019-0 No Route: IV, Memoria (ANES) 3-10 Drug form: l 19:11: INJ, ONCE, Stop date: 01/02/20 14:11:00 CDT lidocaine 2020-0 No Route: IV, Me moria (ANES) 3-10 Drug form: l 19:11: INJ, ONCE, Stop date: 01/02/20 14:11:00 CDT fentaNYL 2020-0 No Route: IV, Mem oria (ANES) 3-10 Drug form: l 19:11: INJ, ONCE, Stop date: 01/02/20 14:11:00 CDT propofol 2020-0 No Route: IV, Mem oria (ANES) 3- Drug form: l 19:11: INJ, ONCE, Stop date: 01/02/20 14:11:00 CDT rocuronium 2019-0 No Route: IV, M emoria (ANES) 3- Drug form: l 19:11: INJ, ONCE, Stop date: 01/02/20 14:11:00 CDT diphenhydrA 2019-0 No Route: IV, Memoria MINE (ANES) 3- Drug form: l 19:05: INJ, ONCE, Stop date: 01/02/20 14:05:00 CDT acetaminoph 2019-0 No Route: IV, Memoria en (ANES) 3-10 Drug form: l 19:05: INJ, ONCE, Stop date: 01/02/20 14:05:00 CDT ePHEDrine 2020-0 No Route: IV, Me moria (ANES) 3-10 Drug form: l 19:05: INJ, ONCE, Stop date: 01/02/20 14:05:00 CDT phenylephri 2020-0 No Route: IV, Memoria ne (ANES) 3-10 Drug form: l 19:05: INJ, ONCE, Stop date: 01/02/20 14:05:00 CDT ceFAZolin 2020-0 No Route: IV, Me moria (ANES) 3-10 Drug form: l 19:00: INJ, ONCE, Stop date: 01/02/20 14:00:00 CDT ondansetron 2020-0 No Route: IV, Memoria (ANES) 3-10 Drug form: l 19:00: INJ, ONCE, Stop date: 01/02/20 14:00:00 CDT dexamethaso 2020-0 No Route: IV, Memoria ne (ANES) 3-10 Drug form: l 19:00: INJ, ONCE, Stop date: 01/02/20 14:00:00 CDT metoclopram 2020-0 No Route: IV, Memoria monserrat (ANES) 3-10 Drug form: l 19:00: INJ, ONCE, Stop date: 01/02/20 14:00:00 CDT midazolam 2020-0 No Route: IV, Me moria (ANES) 3-10 Drug form: l 18:55: SOLN, ONCE, Stop date: 01/02/20 13:55:00 CDT Lactated 2020-0 No Route: IV, Mem oria Ringers 3-10 Total l Injection 17:38: Volume: Nelly nn IV (ANES) 00 1,000, 1000 mL Start date: 01/02/20 12:38:00 CDT, Stop date: 01/02/20 13:38:00 CDT Dilaudid 2019-0 No Notes: Memoria 3-10 Same as: l 16:12: Dilaudid Calcium 2020-0 No 1,000 mL, Memor ia Chloride 3-10 1000 l 0.0014 16:00: ml/hr, Criders MEQ/ML / 00 Infuse Potassium Over: 1 Chloride hr, Route: 0.004 IV, 1,000, MEQ/ML / Drug form: Sodium INJ, PRE Chloride OP, Dosing 0.103 Weight MEQ/ML / 63.636 kg, Sodium Start Lactate date: 0.028 01/02/20 MEQ/ML 11:00:00 Injectable CDT, Solution Duration: 1 doses or times, Bolus, 0 Calcium 2020-0 No 1,000 mL, Memor ia Chloride 3-10 Rate: 75 l 0.0014 15:38: ml/hr, Criders MEQ/ML / 00 Infuse Potassium over: 13.3 Chloride hr, Route: 0.004 IV, Dosing MEQ/ML / Weight Sodium 63.636 kg, Chloride Total 0.103 Volume: MEQ/ML / 1,000, Sodium Start Lactate date: 0.028 01/02/20 MEQ/ML 10:38:00 Injectable CDT, Solution Duration: 30 day, Stop date: 02/01/20 10:37:00 CDT, 1.66, m2, 0 Dilaudid 2020-0 No 0.5 mg, Memori a 3-10 Route: IV, l 15:36: ONCE, Edwin 00 Dosing Weight 63.636, kg, Start date: 01/02/20 10:36:00 CDT, Stop date: 01/02/20 10:36:00 CDT oxyCODONE 2020-0 No 10 mg, Memori a 10 mg 2-18 Route: PO, l extended 20:16: Drug form: Her mitchell release 00 ERTAB, ONCE, Start date: 12/12/19 14:16:00 WEB ENGINEER, Stop date: 12/12/19 14:16:00 WEB ENGINEER oxyCODONE 2020-0 No 10 mg, Memori a 10 mg 2-18 Route: PO, l extended 20:09: Drug form: Her mitchell release 00 ERTAB, ONCE, Start date: 12/12/19 14:09:00 WEB ENGINEER, Stop date: 12/12/19 14:09:00 WEB ENGINEER Dilaudid 2019-0 No Notes: Memoria 2-18 Same as: l 20:08: Dilaudid Oxycodone 2019-0 No Notes: Memori a Hydrochlori 2-18 (Same as: l de 5 MG 19:05: Roxicodone Herm aurelia Oral Tablet 00 ) Calcium 2020-0 No 1,000 mL, Memor ia Chloride 2-18 Rate: 75 l 0.0014 18:05: ml/hr, Criders MEQ/ML / 00 Infuse Potassium over: 13.3 Chloride hr, Route: 0.004 IV, Dosing MEQ/ML / Weight Sodium 63.636 kg, Chloride Total 0.103 Volume: MEQ/ML / 1,000, Sodium Start Lactate date: 0.028 12/12/19 MEQ/ML 12:05:00 Injectable WEB ENGINEER, Solution Duration: 30 day, Stop date: 01/11/20 12:04:00 CDT, 1.66, m2, 0 Nitroglycer 2020-0 Yes 0.4 mg = 1 Memoria in 0.4 MG 2-17 tab, SL, l Sublingual 17:38: Q5Min, PRN H ermann Tablet 00 as needed for chest pain, 0 Refill(s) Lisinopril 2020-0 No PO, Daily, M emoria 2-17 0 l 17:37: Refill(s) Edwin 00 Amitriptyli 2019-0 Yes PO, Memori a ne 2-17 Bedtime, 0 l 17:37: Refill(s) Criders 00 24 HR 2019-0 Yes 20 mg = 1 Memoria carvedilol 2-17 cap, PO, l phosphate 16:48: BID, 0 Raúl n 20 MG 00 Refill(s) Extended Release Capsule [Coreg] 12 HR No 1,000 mg = Memori a ranolazine 2-17 1 tab, PO, l 1000 MG 16:48: BID, 0 Edwin Extended 00 Refill(s) Release Tablet [Ranexa] Clonidine Yes 0.2 mg = 1 Me moria Hydrochlori 2-17 tab, PO, l de 0.2 MG 16:48: BID, PRN Herm aurelia Oral Tablet 00 Hypertensi on, 0 Refill(s) lisinopril No 20 mg = 1 Me moria 20 mg oral 2-17 tab, PO, l tablet 16:47: Daily, 0 [place]iders 00 Refill(s) AMIODarone 0 Yes 200 mg = 1 M emoria 200 mg oral 2-17 tab, PO, l tablet 16:47: BID, 0 Criders 00 Refill(s) Potassium 2019-0 Yes 20 mEq, Memor ia Chloride 2-17 PO, Daily, l 16:47: 0 Edwin 00 Refill(s) Omnipaque 2019-0 No Notes: Memori a 180 -03 (Same l 15:15: as:Omnipaq Criders 00 ue 180). WASTE: F/P - Black; E - Municipal Trash Bin amLODIPine 2018- No 10mg QD Take [address] [facility] (NORVASC) 06-15-22 by mouth [facility] - 10 MG 12:21: 00:00 daily. Medical tablet 03 :00 Center cloNIDine 2018- No .2mg Q.5D Take 0.[address] [facility] HCl 8- 08-22 mg by [facility]ukes - (CATAPRES) 12:21: 00:00 mouth 2 Med ical 0.2 MG 03 :00 (two) Center tablet times daily. hydroCHLORO 2019- No 12.5mg QD Take 12.[address] [facility] [...] days. Max Daily Amount: 15 mg budesonide- 2018- Yes 2{puff} Q.5D Inhale [address] [facility] [address] formoterol 8-16 puffs by [facility]ukes - (SYMBICORT) 16:38: mouth via M edical 80-4.5 36 inhaler 2 [place] mcg/actuati (two) on inhaler times daily. lithium 300 2019- Yes 300mg QD Take [address] MG capsule 8-16 mg by Lukes - 16:26: mouth Medical 49 nightly . Center amiodarone 2019-0 Yes 100mg Q.5D Take [address] (PACERONE) 8-16 mg by [facility] - 100 MG 16:26: mouth 2 Medical tablet 49 (two) Center times daily. isosorbide 2019- Yes 60mg QD Take [address] mononitrate 8-16 by mouth Luke s - (IMDUR) 60 16:26: daily. Medic al MG 24 hr 49 Center tablet ranolazine Yes 1000mg QD Take 1,[address] [facility] (RANEXA) 8-16 mg by [facility]ukes - 1,000 mg SR 16:26: mouth Medic al tablet 49 daily. Center methocarbam 2018- 2019- No 750mg Q.25D Take [address] ol 8-16 08-16 mg by [facility]ukes - (ROBAXIN) 16:24: 00:00 mouth 4 Medi dustin 750 MG 23 :00 (four) Center tablet times daily. lisinopril Yes 40mg QD Take [address] (PRINIVIL,Z 8-16 by mouth Luke s - ESTRIL) 40 16:21: daily . Medi dustin MG tablet 31 Center Albuterol Albuterol Yes Na Heard inhale [address] [facility] Sulfate Sulfate 5-14 vial by [facility]ukes - 00:00: mouth via Memoria 00 nebulizer l 3 times a Outpati day ent Clinics Ipratropium Ipratropium 2018- Yes Na Heard as [facility] [place] 5-14 directed [facility] - 00:00: Memoria 00 l Outpati ent Clinics Amlodipine Amlodipine 2017-10 Yes Na Heard [address] [facility] Besylate Besylate 0-29 [facility]ukes - 00:00: Memoria 00 l [facility] Clinics HYDROcodone Yes 1{tbl} Take [address] -acetaminop 7-19 tablet by Kofi witt (NORCO 08:53: mouth Medica l 10-325) 13 every 6 Center 10-325 mg (six) per tablet hours as needed for Pain. mometasone- 2017- Yes 2{puff} Q.5D Inhale [address] [address] formoterol 7-19 puffs by Lukes - (DULERA) 08:52: mouth via Medi dustin 100-5 02 inhaler 2 Center mcg/actuati (two) on inhaler times daily. albuterol Yes 1{puff} Inhale [address] HFA 7-19 puff by Lukes - (VENTOLIN 08:52: mouth via Med ical HFA) 90 01 inhaler Center mcg/actuati every 6 on inhaler (six) hours as needed for Wheezing. aspirin 81 Yes 81mg QD Take 1 [facility] MG chewable 7-19 tablet (81 Abigail kes - tablet 00:00: mg total) Medica l 00 by mouth Center daily. traZODone Yes 25mg Take 0.[address] [facility] (DESYREL) 7-19 tablets Lukes - 50 MG 00:00: (25 mg Medical tablet 00 total) by Center mouth every night as needed for Sleep. nitroglycer Yes Put [address] [facility] in -19 under Lukes - (NITROSTAT) 00:00: tongue Medi dustin 0.4 MG SL 00 every 5min Cent er tablet as needed for chest pain.No more than 3 doses in 15min.. lidocaine Yes 3{patch Q24H Place [address] (LIDODERM) 05-12 } patches [facility]ukes - 5 % patch 00:00: onto the Medi dustin 00 skin daily Center Remove & Discard patch within 12 hours or as directed by MD. famotidine Yes 20mg Take 1 [facility] (PEPCID) 20 7-19 tablet (20 Abigail kes - MG tablet 00:00: mg total) Med ical 00 by mouth 2 Center (two) times daily as needed for Heartburn. atorvastati Yes 20mg QD Take [address] [facility] n (LIPITOR) 7-19 tablet (20 Abigail kes - 20 MG 00:00: mg total) Medical tablet 00 by mouth Center nightly Take instead of simvastati n for cholestero l. Clonidine Clonidine Yes Na Heard [address] [facility] HCl HCl 6-27 twice x 1 Lukes - 00:00: week then Memoria 00 1 tablet l Outpati ent Clinics carvedilol Yes 25mg Take 1 [facility] (COREG) 25 4-05 tablet (25 Kofi es - MG tablet 00:00: mg total) Med ical 00 by mouth 2 Center (two) times daily with breakfast and dinner. amitriptyli Yes 50mg QD Take [address] [facility] ne (ELAVIL) 3-30 by mouth Luke s - 50 MG 13:44: nightly. Medical tablet 02 Center DULoxetine Yes 60mg QD Take [address] (CYMBALTA) 3-30 by mouth [facility]ukes - 60 MG 13:44: daily. Medical capsule 02 Center vitamin E Yes 200U QD Take [address] 200 UNIT 3-30 Units by Lukes - capsule 13:44: mouth Medical 02 daily. Center Amitriptyli Amitriptyli Yes Na Heard [address] [facility] ne HCl ne HCl [facility] - Memoria l [facility] Clinics Dulera Dulera Yes Na Heard 2 puffs [facility] - [facility] l [facility] Clinics Amiodarone Amiodarone Yes Na Heard [address] [facility] HCl HCl [facility]ukes - Memoria l [facility] ent Clinics -81 Aspir-81 Yes Na Heard [address] [facility] l [facility] Clinics Isosorbide Isosorbide Yes Na Heard [address] [facility] Mononitrate Mononitrate in the Lukes - ER ER morning Memoria l [facility] Clinics Weslaco Weslaco Yes Na Heard [address] Carbonate Carbonate at bedtime [facility]ukes - Memoria l [facility] Clinics Atorvastati Atorvastati Yes Na Heard [address] [facility] n Calcium n Calcium [facility] - Memoria l [facility] Clinics Losartan Losartan Yes Na Heard [address] [facility] [address] Potassium Potassium [facility] - Memoria l [facility] Clinics Gabapentin Gabapentin Yes Na Heard [address] [facility] - [facility] l [facility] Clinics Carvedilol Carvedilol Yes Na Heard as [facility] directed [facility] - Memoria l [facility] Clinics HydrALAZINE HydrALAZINE Yes Na Heard [address] [facility] HCl HCl with food [facility] - Memoria l [facility] Clinics Citalopram Citalopram Yes Na Heard [address] [facility] Hydrobromid Hydrobromid L ukes - e e Memoria l [facility] Clinics Lorazepam Lorazepam Yes Na Heard [address] [facility] as needed [facility] - Memoria l [facility] [employer] Yes Na Heard [address] [facility] as needed [facility] - Memoria l [facility]ics Hydrochloro Hydrochloro Yes Na Heard [address] [facility] thiazide thiazide in the Lukes - morning Memoria l [facility] Clinics Ranolazine Ranolazine Yes Na Heard [address] [facility] ER ER [facility] - Memoria l [facility] Clinics Lisinopril Lisinopril Yes Na Heard [address] [facility] l [facility] Clinics Vital Signs Vital Name Observation Time Observation Value Comments Source Respitory Rate 2020-01-02 20:30:00 Memori al Criders Systolic (mm Hg) 2020-01-02 20:30:00 Flaquito rial Edwin Diastolic (mm Hg) 2020-01-02 20:30:00 Mem orial [place]iders Respitory Rate 2020-01-02 20:15:00 Memori al [place] Systolic (mm Hg) 2020-01-02 20:15:00 Flaquito rial Edwin Diastolic (mm Hg) 2020-01-02 20:15:00 Mem orial Edwin Respitory Rate 2020-01-02 20:00:00 Memori al [place]iders Systolic (mm Hg) 2020-01-02 20:00:00 Flaquito rial Edwin Diastolic (mm Hg) 2020-01-02 20:00:00 Mem orial Edwin Height 2020-01-02 16:08:00 175.26 cm Memorial Edwin Weight 2020-01-02 16:08:00 Memorial [place] BMI Calculated 2020-01-02 16:08:00 Memori al Edwin Height 2019-12-11 17:02:00 152.4 cm [facility] Criders Weight 2019-12-11 17:02:00 Memorial Criders BMI Calculated 2019-12-11 [facility] Systolic blood 2019-06-15 11:23:00 128 mm[Hg] [facility] Diastolic blood 2019-06-15 11:23:00 80 mm[Hg] [facility] Heart rate 2019-06-15 11:23:00 66 /min [facility] Body temperature 2019-06-15 11:23:00 36.28 Lanny [facility] Respiratory rate 2019-06-15 11:23:00 18 /min [facility] Oxygen saturation in 2019-06-15 11:23:00 99 /min [facility] Arterial blood by Medical Ce nter Pulse oximetry Body weight Measured 2019-06-10 06:00:00 68 kg [facility] BMI 2019-06-10 06:00:00 22.14 kg/m2 [facility] Body height 2019-06-09 17:00:00 175.3 cm [facility] Procedures Procedure Date / Time Performing Clinician Source Performed VASCULAR DIAGRAM -SCAN 2019-06-27 17:41:14 Provider, [facility] REPORT OF PROCEDURE - 2019-06-17 15:18:13 aCleb Dawn [facility] ENDOSCOPY [facility] REPORT OF PROCEDURE - 2019-06-17 15:11:39 Caleb Dawn [facility] ENDOSCOPY [facility] REPORT OF PROCEDURE - 2019-06-16 13:33:30 Provider, [facility] - ENDOSCOPY SCAN Scanning [facility] CARDIAC CATH REPORT - 2019-06-16 13:33:24 Provider, [facility] SCAN Scanning [facility] RHYTHM STRIP - SCAN 2019-06-16 13:33:17 Provider, [facility] COMPREHENSIVE METABOLIC 2019-06-15 05:37:[address] [facility] TRANSFUSION SERVICE 2019-06-14 18:01:40 Provider, [facility] REPORT - SCAN [facility] [place] ERCP 2019-06-14 15:25:00 [facility] TISSUE EXAM 2019-06-14 15:21:00 Nereyda [facility] ENDOSCOPIC 2019-06-14 14:12:00 Caleb Dawn [facility] - ULTRASOUND,W/ENDO [facility] ERCP W/BIOPSY 2019-06-14 14:12:00 Caleb Dawn [facility] ERCP,BALLOON SWEEPING 2019-06-14 14:12:[address] [facility] ERCP,PAPILLOTOMY 2019-06-14 14:12:00 [facility]da [facility] PROCEDURE W/ C-ARM 2019-06-14 14:12:00 Caleb Dawn sophie I [facility] CBC (HEMOGRAM ONLY) 2019-06-14 04:22:00 Wilver Cheek [facility] COMPREHENSIVE METABOLIC 2019-06-14 04:22:[address] [facility] [facility] POCT-ACT 2019-06-13 16:09:00 Maggie Denis [facility] L HEART CATH ONLY - NO 2019-06-13 13:45:00 Heidy [facility] AN[facility] TYPE AND SCREEN, 2019-06-13 05:01:00 Trina Moody [facility] AUTOMATED [facility] NM CARDIAC PET PERFUSION 2019-06-12 15:56:[address] [facility] REST AND/OR STRESS Medical Cente r TREADMILL 2019-06-12 15:35:01 Unknown, 7 [facility] - TOLERANCE(NON-NUCLEAR Medical Ce nter TREADMILL) ECG 12-LEAD 2019-06-12 15:33:31 Unknown, 7 [facility] ECG 12-LEAD 2019-06-12 15:24:57 Unknown, 7 [facility] VANCOMYCIN LEVEL, TROUGH 2019-06-12 01:09:00 [facility] BASIC METABOLIC PANEL (7) 2019-06-12 01:09:[address] [facility] HEPATIC FUNCTION PANEL 2019-06-12 01:09:00 Sebastian Gonzalez [facility] CBC (HEMOGRAM ONLY) 2019-06-12 01:09:00 Lisa Sharp [facility] TROPONIN I 2019-06-12 01:09:00 [facility] ECG 12-LEAD 2019-06-12 00:57:35 Unknown, 7 [facility] BLOOD CULTURE 2019-06-11 08:46:00 Danish Barber [facility] BLOOD CULTURE 2019-06-11 05:55:00 Gus Gomez [facility] PROCALCITONIN 2019-06-11 05:41:00 Barber Peng [facility] CBC (HEMOGRAM ONLY) 2019-06-11 05:41:00 Leon GonzalezSheyla [facility] BASIC METABOLIC PANEL (7) 2019-06-11 05:41:00 Lisa Sebastian [facility] HEPATIC FUNCTION PANEL 2019-06-11 05:41:00 Lisa DonitaJessica [facility] ECHOCARDIOGRAM REPORT - 2019-06-10 21:21:34 ProviderLinda [facility] 2D ECHO W/ DOPPLER 2019-06-10 11:41:14 Zafar [facility] (CW/PW/COLOR) [facility] MAGNESIUM 2019-06-10 04:09:00 Gus Gomez [facility] BASIC METABOLIC PANEL (7) 2019-06-10 04:09:00 Sebastian Gonzalez [facility] HEPATIC FUNCTION PANEL 2019-06-10 04:09:00 Sebastian Gonzalez [facility] LIPID PANEL 2019-06-10 04:09:00 Sebastian Gonzalez [facility] LACTIC ACID, VENOUS 2019-06-10 04:09:00 Gus Gomez [facility] TROPONIN I 2019-06-10 04:09:00 Nae Stephen [facility] CBC W/PLT COUNT & AUTO 2019-06-10 04:09:00 Barber Peng [facility] OXYGEN SATURATION, 2019-06-10 02:44:[address] [facility] URINE CULTURE 2019-06-10 02:29:00 Sebastian Gonzalez [facility] URINALYSIS W/ REFLEX 2019-06-10 02:29:00 Sebastian Gonzalez [facility] URINE CULTURE [facility] LACTIC ACID, VENOUS 2019-06-10 01:37:00 Jason [facility] BLOOD GAS, ARTERIAL 2019-06-09 22:10:[facility] 2019-06-09 22:07:00 Barber Peng [facility] PROTHROMBIN TIME/INR 2019-06-09 22:06:00 Gus Gomez [facility] APTT 2019-06-09 22:06:00 Gus Gomez [facility] FIBRINOGEN 2019-06-09 22:06:00 Gus Gomez [facility] BLOOD CULTURE 2019-06-09 21:55:00 Gus Gomez [facility] TROPONIN I 2019-06-09 21:54:00 Sebastian Gonzalez [facility] MAGNESIUM 2019-06-09 21:54:00 Barber Peng [facility] COMPREHENSIVE METABOLIC 2019-06-09 21:54:[address] [facility] PROCALCITONIN 2019-06-09 21:54:00 Gus Gomez [facility] BASIC METABOLIC PANEL (7) 2019-06-09 21:54:00 Justin Gomez [facility] HEPATIC FUNCTION PANEL 2019-06-09 21:54:00 Gus Gomez [facility] LIPASE 2019-06-09 21:54:00 Gus Gomez [facility] PHOSPHORUS 2019-06-09 21:54:00 Gus Gomez [facility] CBC W/PLT COUNT & AUTO 2019-06-09 21:54:[address] [facility] POCT-LACTIC ACID, VENOUS 2019-06-09 21:49:00 Sebastian Gonzalez [facility] ECG 12-LEAD 2019-06-09 20:26:42 Unknown, H[facility] BLOOD CULTURE 2019-06-09 18:29:00 Sebastian Gonzalez [facility] TROPONIN I 2019-06-09 18:29:00 Sebastian Gonzalez [facility] Bypass<sup>1</sup> [facility] aurelia [facility] care [facility] Discectomy<sup>2</sup> [facility] Implantation<sup>3</sup> [facility] implantation<sup>4</sup> Encounters Start End Encounter Admission Attending Care Care Encounter Source Date/Time Date/Time Type Type Clinicians Facility Department ID 2020-05-03 2020-05-03 [facility] [id number] [address] 14:25:00 14:25:[address] [facility] 2020-04-19 2020-04-19 Outpatient Dion [id number] 09:58:00 23:59:00 Tay [id number] Biju [id number] 2020-02-12 2020-02-12 [facility] [id number] 11:15:00 11:15:[address] [facility] 2020-01-26 2020-01-26 [facility] [id number] 11:20:00 11:20:[address] [facility] 2020-01-11 2020-01-11 [facility] [id number] 15:32:00 15:32:00 t [facility] 2020-01-03 2020-01-03 [facility] [id number] 09:20:00 09:20:[address] [facility] 2020-01-02 2020-01-[address] [id number] 09:54:00 15:59:00 Tay Biju 2020-01-02 2020-01-02 Outpatient MHBL MHBL [id number] MHBL 09:54:00 09:54:00 2019-11-13 2019-11-13 [facility] [id number] 14:13:00 14:13:00 t Specialty/U Abigail kes - Specialty rology [facility] a /Urology Clinic l Clinic Outpati ent Clinics 2019-11-01 2019-11-01 [facility] [id number] 09:20:00 09:20:00 [facility] Outpati ent Clinics 2019-10-27 2019-10-27 Outpatient Ashley, MHSE MHSE [id number] 08:50:00 23:59:00 Tay 00 Biju 2019-10-27 2019-10-27 Outpatient MHSE MHSE [id number] MH 08:50:00 08:50:[address] [facility] 2019-09-05 2019-09-05 [facility] [id number] 09:29:00 09:29:[address] [facility] 2019-05-31 2019-05-31 [facility] [id number] 12:00:00 12:00:00 [facility] Out[facility] ent Clin[facility] 2019-05-30 2019-05-30 [facility] [id number] 15:00:00 15:00:00 t [employer] [facility] Out[facility] ent Clin[facility] 2019-04-26 2019-04-26 [facility] [id number] 15:09:00 15:09:00 t [employer] [facility] 2019-03-30 2019-03-30 [facility] [id number] 15:40:00 15:40:00 [facility] Out[facility] Clin[facility] 2019-02-23 2019-02-23 Outpatient E MHSE MED [id number] MH 15:40:00 15:40:[address] [facility] 2019-01-10 2019-01-10 [facility] [id number] 08:41:00 08:41:00 t [employer] [facility] 2018-12-12 2018-12-12 [facility] [id number] 08:15:00 08:15:00 t [employer]oc[employer]ics [facility] 2018-07-27 2018-07-27 [facility] [id number] 15:15:00 15:15:00 t [employer] - [employer] [facility] 2018-06-09 2018-06-09 [facility] [id number] 08:00:00 08:00:00 t [employer] s [employer] [address] [facility] Clin[facility] 2018-05-31 2018-05-31 [facility] [id number] 09:00:00 09:00:00 t [employer] s - [employer] [facility] Medicine Outpati ent Clinics 2018-04-20 2018-04-20 [facility] [id number] 09:45:00 09:45:00 t [employer] [facility] Clin[facility] 2018-04-15 2018-04-15 [facility] [id number] 15:26:00 15:26:00 t [employer] [facility] 2018-03-15 2018-03-15 [facility] [id number] 15:15:00 15:15:00 t [employer] [facility] 2018-02-28 2018-02-28 [facility] [id number] 09:15:00 09:15:00 t [employer] [facility] Results Test Description Test Time Test Comments Results Result Comments Source CHEM PANEL 2019-12-12 7.9 [facility] 18:34:00 CHEM PANEL 2019-12-12 3.4 [facility] 18:34:00 CHEM PANEL 2019-12-12 39 [facility] 18:34:00 CHEM PANEL 2019-12-12 32 [facility] 18:34:00 CHEM PANEL 2019-12-12 49 [facility] 18:34:00 CHEM PANEL 2019-12-12 0.5 [facility] 18:34:00 CHEM PANEL 2019-12-12 0.2 [facility] 18:34:00 CHEM PANEL 2019-12-12 0.3 [facility] 18:34:00 CHEM PANEL 2019-12-12 4.5 [facility] 18:34:00 CHEM PANEL 2019-12-12 18:34:00 Test Item Value Reference Range Interpretation Comme nts A/G Ratio (test code = A/G Ratio) 0.8 1 0.7-1.6 [facility]ann[facility] [id number] 18:34:0083[facility] HermannCHEM PANEL 2019-12-12 18:34:0020[facility] HermannCHEM [id number] 18:34:001.42[facility] HermannCHEM HHDZH4945-15-22 18:34:25133Gsyzlffm HermannCHEM YIKTR8154-28-31 18:34:003.6[facility] HermannCHEM [id number] 18:34:22475Fumqiuvl HermannCHEM [id number] 18:34:0027[facility] HermannCHEM [id number] 18:34:008.8 [facility]annCHE[facility] [id number] 18:34:007.6[facility]annCHEM PANEL 2019-12-12 18:34:0053[facility] JodwvbnKSWQQJVPPW0761-83-17 18:34:009.5[facility] JotxphgAOIITUCIIO7311-65-90 18:34:004.50[facility]orial QfpgpfpKFHAJLWBOF5362-09-81 18:34:0013.5[facility] FdfdgnxFKMESAZQIT5051-68-75 18:34:0040.8[facility] KMWHVDRWBA4407-51-51 18:34:0090.8[facility] WukptjoCQOODKZJRT4491-13-41 18:34:00 Test Item Value Reference Range Interpretation Comments MCH (test code = MCH) 30.1 pg 27.0-31.0 [facility] CeafizrZNFHKZFVEH3270-47-43 18:34:0033.1[facility] HermannHEMATOLOGY 2019-12-12 18:34:0013.6[facility] SvdizhwADMEFPHYPZ7845-57-77 18:34:69765Lejtehnt GacevopZDAMJODGYU1276-90-60 18:34:008.8[facility] ZwkpgnaNUEKEZCQNW0199-21-56 18:34:00 Test Item Value Reference Range Interpretation Comments PT (test code = PT) 13.2 s 12.0-14.7 [facility] GjbbqvhUPSAJYVPYB4145-87-54 18:34:00 Test Item Value Reference Range Interpretation Comments INR (test code = INR) 1.00 1 0.85-1.17 [facility] UwasijaBIFTVZQNZO7842-02-56 18:34:00 Test Item Value Reference Range Interpretation Comments PTT (test code = PTT) 31.1 s 22.9-35.8 [facility] GdmghcmSKPCHPWXPW7899-78-73 18:34:0062.8[facility] HermannHEMATOLOGY 2019-12-12 18:34:0022.8[facility] XpwmjlpSFYNSVENJQ0985-39-08 18:34:008.5[facility] HyciwtlDBUWKWIENU4628-91-02 18:34:004.9[facility] RqhlgvlBCJGDYHNOW8099-20-02 18:34:001.0[facility] RgzrwzvAHWQPEYDRO4058-18-21 18:34:005.9[facility] OJRSKXITPK9658-48-42 18:34:002.2[facility] KolsyisJTIMCOPKBG4485-14-22 18:34:000.8 Memorial YzkqhymNUYVZMDLQZ1666-52-21 18:34:000.5[facility] HermannHEMATOLOGY 2019-12-12 18:34:000.1[facility] HermannSPECIAL XROZADXHZ4352-78-39 18:34:006.3 [facility] [id number] 06:36:00 Test Item Value Reference Range Interpretation Comments SODIUM (test code = NA) 141 mmol/L 134-147 N POTASSIUM (test code = 3.7 mmol/L 3.4-5.0 N K) CHLORIDE (test code = 108 mmol/L 100-108 N CL) CARBON DIOXIDE (test 27 mmol/L 21-32 N code = CO2) ANION GAP (test code = 6.0 GAP calc 4.0-15.0 N GAP) GLUCOSE (test code = 98 MG/DL 70-110 N GLU) BLOOD UREA NITROGEN 14 MG/DL 7-18 N (test code = BUN) GLOMERULAR FILTRATION >=60 max estimate >60 RATE (test code = GFR) estGFR CREATININE (test code = 1.1 MG/DL 0.8-1.3 N CREAT) CALCIUM (test code = CA) 8.9 MG/DL 8.5-10.1 N CBC W/AUTO [id number] 06:32:00 Test Item Value Reference Range Interpretation [...] = NO DIFF/SCN CRITERIA MDIFF) COMPREHENSIVE METABOLIC [id number] 06:08:00 Test Item Value Reference Range Interpretation [...] TOTAL (test code = ALKP) CBC W/AUTO [id number] 05:52:00 Test Item Value Reference Range Interpretation [...] concentrations <2 ng/mL are obtai brandon. LACTIC [id number] 16:03:00 Test Item Value Reference Range Interpretation Comments LACTIC ACID (test code = LACT) 1.0 mmol/L 0.4-2.0 N - XR CHEST 1 [id number] 15:59:00 Name: ALHAJI FARAH [facility] : 1960 Age/S: 58 / M [id number] [address] #: [id number] Loc: [place] [address] Phys: Jac Leal MD Acct: [id number] Dis Date: Status: ADM IN PHONE #: [phone] Exam Date: 11/02/2019 1556 FAX #: Reason: Fever EXAMS: CPT: [id number] XR CHEST 1 V 51262 Fluoro Time: DAP (Gy m2): Air Kerma [...] signed by: Danielle David MD CC: Jac Lael MD PAGE 1 Signed Report Name: ALHAJI FARAH [place] : 1960 Age/S: 58 / M [id number] [address] #: [id number] Loc: [place] [address] Phys: Jac Leal MD Acct: [id number] Dis Date: Status: ADM IN PHONE #: [phone] Exam Date: 11/02/2019 1556 FAX #: Reason: Fever EXAMS: CPT: [id number] XR CHEST 1 V 16092 Fluoro Time: DAP (Gy m2): Air Kerma (mGy): <Continued> Technologist: Sabine Cross RT(R)(CT) Trnscb Date/Time: 11/02/2019 (7636) [email or web address] Orig Print D/T: S: 11/02/2019 (9643) PAGE 2 Signed [id number] 04:22:00 Test Item Value Reference Range Interpretation Comments TROPONIN-I (test 0.033 NG/ML 0.000-0.045 N Negative: < /= 0.045 code = TROPI) Positive: >/= 0.046 Correlation wit h serial results, other cardiac markers, and cl inical findings is nec essary to determine the c linical significance of this result. Quantit ative results using jaylon uriasent methodologies s hould not be compared to one another as nume rical results may roma yby method. Completed by Nursing: NOBASIC METABOLIC [id number] 04:19:00 Test Item Value Reference Range Interpretation [...] CA) 8.1 MG/DL 8.5-10.1 L CBC W/AUTO [id number] 04:08:00 Test Item Value Reference Range Interpretation [...] = NO DIFF/SCN CRITERIA MDIFF) - CTA [id number] 22:57:00 Name: ALHAJI FARAH [facility] : 1960 Age/S: 58 / M [address] [address] #: [id number] Loc: [place] [address] Phys: Jac Leal MD Acct: [id number] Dis Date: Status: ADM IN PHONE #: [phone] Exam Date: 11/01/2019 9384 FAX #: Reason: Chest PAIN EXAMS: CPT: [id number] CTA CHEST 14722 Examination: CTA chest, PE protocol Indication: Chest [...] 1 Signed Report (CONTINUED) Name: ALHAJI FARAH [facility] : 1960 Age/S: 58 / M [id number] [address] #: [id number] Loc: [place] [address] Phys: Jac Leal MD Acct: [id number] Dis Date: Status: ADM IN PHONE #: [phone] Exam Date: 11/01/2019 4639 FAX #: Reason: Chest PAIN EXAMS: CPT: [id number] CTA CHEST 67579 <Continued> No suspicious or destructive osseous lesions. Impression: Limited exam secondary to phase of contrast no evidence of acute pulmonary embolism proximal lobar pulmonary arteries. There is irregular, possibly nodular thi ckening of the esophagus, recommend further evaluation with endoscopy Additional findings as detailed above at 1525 Reported and signed by: Katy Dykes M.D. CC: Jac Leal MD Technologist:Curly Logan, RT(R)(CT); .. CTDI: DLP: Trnscb Date/Time: 11/01/2019 (225) [email or web address] Orig Print D/T: S: 11/01/2019 (2908) PAGE 2 Signed ReportGLYCOSYLATED HEMOGLOBIN [id number] 17:41:00 Test Item Value Reference Range Interpretation Comments GLYCOSYLATED HEMOGLOBIN (HA1C) 6.3 % A1C 4.2-6.3 N (test code = GLYHGB) ESTIMATED AVERAGE GLUCOSE (test 134 MG/DLest code = EAG) COMPREHENSIVE METABOLIC [id number] 17:40:00 Test Item Value Reference Range Interpretation [...] = LDL/HDL) 2.94 Ratio 1.48-3.22 Avg N [id number] 17:40:00 Test Item Value Reference Range Interpretation Comments PHOSPHOROUS (test code = PHOS) 3.5 MG/DL 2.5-4.9 N RULE OUT ID [id number] 17:40:00 Test Item Value Reference Range Interpretation [...] nume rical results may roma yby method. [id number] 17:40:00 Test Item Value Reference Range Interpretation Comments MAGNESIUM (test code = MAG) 2.5 MG/DL 1.8-2.4 H TROPONIN I [id number] 15:24:00 Test Item Value Reference Range Interpretation Comments TROPONIN I RAPID 0.04 ng/mL 0.00-0.08 N - The use o f serial (test code = sampling and te sting TROPIRAP) protocol is a recommended pra ctice- An elevated tro ponin level alone is often not sufficient for diagnosis of my ocardial infarction. BASIC METABOLIC [id number] 13:39:00 Test Item Value Reference Range Interpretation [...] 133 Unit/L 26-192 N CK) TROPONIN I [id number] 11:56:00 Test Item Value Reference Range Interpretation Comments TROPONIN I RAPID 0.04 ng/mL 0.00-0.08 N - The use o f serial (test code = sampling and te sting TROPIRAP) protocol is a recommended pra ctice- An elevated tro ponin level alone is often not sufficient for diagnosis of my ocardial infarction. - XR CHEST 1 [id number] 11:53:00 Name: ALHAJI FARAH [place] : 1960 Age/S: 58 / M [id number] [address] #: [id number] Loc: [place] [address] Phys: Darell Medrano MD Acct: [id number] Dis Date: Status: PRE ER PHONE #: [phone] Exam Date: 11/01/2019 1146 FAX #: Reason: chest pain EXAMS: CPT: [id number] XR CHEST 1 V 28487 Fluoro Time: DAP (Gy m2): Air Kerma [...] PAGE 1 Signed Report Name: ALHAJI FARAH [place] :1960 Age/S: 58 / M [address] [address] #: [id number] Loc: [place] [address] Phys: Darell Medrano MD Acct: [id number] Dis Date: Status: PRE ER PHONE #: [phone] Exam Date: 11/01/2019 1144 FAX #: Reason: chest pain EXAMS: CPT: [id number] XR CHEST 1 V 48633 Fl uoro Time: DAP (Gy m2): Air Kerma (mGy): <Continued> Technologist:Nirmal Negron RT(R)(MR) Trnscb Date/Time: 11/01/2019 (7671) [email or web address] Orig Print D/T: S: 11/01/2019 (7304) PAGE 2 Signed ReportCBC W/O [id number] 11:50:00 Test Item Value Reference Range Interpretation [...] 11.80 fL 7.0-9.6 H MPV) CHEMISTRY 8 [id number] 11:47:00 Test Item Value Reference Range Interpretation [...] 49-113 N code = GFRBED) CHEMISTRY 8 [id number] 11:47:00 Test Item Value Reference Range Interpretation [...] ROSIE, SILVER Dorsey (4120) on 06/23/2019 6:48:32 [id number] 10:31:00 Test Item Value Reference Range Interpretation Comments Case Report (test code Surgical Pathology = 104) Report Case: [id number] Authorizing Provider: Caleb Dawn Collected: 06/14/2019 Bhavna Morales MD Ordering Location: [address] Received: 06/15/2019 0759 Service Pathologist: Misty Jackson MD Specimen: Ampulla, Ampulla Bx DIAGNOSIS (test code = x3heoEKmRJUjc0vvRDYeoM 3220) FuZzEwMzNcZnRuYmpcdWMx CMbgypNwTUgqe4GhE3OjGk AwMFxhbnNpXGRlZmxhbmcx ORWeAAY0pcPlGPEtYGdoXD HgOYogIb8jpAAhnXddYqVb TPBwi4onqfWHouflqSt5k8 siGHJvYoG2tVZkCKdoA0yt smZcaZHsNOQvKFr7pL29ZK KbhC8ymXLzHUltiuLjYsY6 UXuxREKhMeW6UBEydNOaGW AbJ8khZGQkBCohXCMhPMnp oRHsJPB0fKbum8D6sLJcoV DwkLdtKaWoKnEsAVLNe2Wc WIm4dGtmB3RkRGMtRyY6sD QgUGFyYWdyYXBoIEZvbnQ7 cS34CVjvhiI2jVSox1Paf2 7ws695xX1qlATnJNJ7EGBl TDKnyYTmFCAmRXC6ZFObgN DgB1w9WhOjhFCuL9L6NsDq kODaX7L7ZxBabOQiU0J5Ad UeaMAmHIFkbUSxBh8hbTMg oQKovp4gdl61TVE1a6BvdR ayJDW7RPQ0EcHgCg9ptBFm UHWoMW1mBcOsoBPzLKAxib 31pUpaDKsxshPdaJ5yHaZt IZDdkWDiRNJmWN9hxKPkTP TeqV9qhvnyFYFiVpWrkjop ZNHxpKmtwkCtCd0fzAlmKU J3SYbpR9nraJ3oBgV2UUma E2omnT4yTTw4RUidmZS6AH JvmB1yEH0csfpei7inEfTo XW8xnlerc9tjMaZkJU8dig y3s0ytYnWvQR7wetpqg1yg NzIwXGhlYWRlcnkwXGZvb3 DiddmcBQIsr8DeW7WahIwk V24euYewU85tJEFlwWbalB 4nrFfpaT9pOxAwQvOpXDiy bFxwbGFpblxmMVxmczIwXG fwilbfYNWvNImgN7wnIaAu KTXjoDlhJExzy4YuPULdGM VeChBkLA3sTlHLFZNOXEZk TFQZNS9OV3n6WTScjsCiJS QvF8ZJTK3XNOTbNY6NAMFD VkVPTEFSIFRZUEUgTVVDT1 NBIFdJVEggTUlMRCBDSFJP QgzKYElNGgxJSN0IIOrYZe xhHOYlFH9tWU3PM4TTZFEK JDGQCxDCGBwRL49BBmMWPB nKNZQlQ88TYLKSWFrhqSYv pFzmqgOuXTwhl6HvUMwjZZ ZxQQ9tjAmfDDXqTB1sAWJf N4jdgC5ulnf5RpFsJSByFo Z6ZNAifrE2Udo9VGLqVLow f7lds6LdWMLqFTb0fUxoIu LvQNIum7cbhqPqOaSuOFFf ROApUYVogNOjP489g1wau9 mtnqTzwAC8SXQqDIV1GLjd drLbgaN8HAklrDRdQmY6LV tccmVkMFxncmVlbjBcYmx1 LGAbD205XBR1hEgct5cfPB Q3KWWjEMSzRuBuWh7gqNCr G176GQSuREEALJUyoRe8GK LwctUecrZjlILCt562T285 b4gcQFNqloLlhQlCzdphg4 dhQ225IIUkxCHzpoStNrMr BYSxvSExzIU0DVHgRV8tnq meZGtmQPzcTNVadaX5QCVi mYOkI7UnTFJfHD0lfawfMV W2QCclHUFiFLP7WqRuMMKp x3Wmpcw4ZhAjqc2wgt49TI X9c0TkrMetGKT8GNA4EzQv Ib9hfNRoIEDwCG3qCyHwfL NwKFPule85yEuzJYkgNWJ2 CQRcvcClj0Jfl8vmWuHuhm CeV2qiI4NiTJMkIERvWDOv GdOcumEwa4Atm5LciZVqlE z6x0jhACViBPUmmEvnu0rp COB9RKNgkUMcP0pnjA6xST AzDA8cscizk9eiPYffJSjk FPZhkVP2thZ0RLVzdMQsW9 EpzQ2xYZIsXQkwHJYvsqh6 PbLxEu7gtDIdhZeuFYqyNw twYWdlXHBnbmNvbnRccGdu ZGVjXHBsYWluXHBsYWluXG YwXGZzMjRccWxcbGFuZzEw MzNcaGljaFxmMVxkYmNoXG PgGPacH3maSnDhUaQyOqd5 VZSsrFAaVLCvQkj7NOGusM WzXGPLsWarqG3yHVXucUch mV5wlGS6SNXxnrAgfQZEwG 9eCYGBeR5uUpU6XtQzJcN6 LTQyNDlccGFyfX0= COMMENT (test code = i2ljfSOhBFQbfUBfBoGpTP 3359) KwRJXgy7etNFIkcFBhLmBq MzNcZnRuYmpcdWMxXGRlZm Otv7jow099pZJzf9jeBGKr WzL3jVKbLLDpiREnT833c5 cnx3ygarQhmLY4HKXyQQZ3 HVxidqDwcaH1PFovbJCyQg Y5LPpartPsCWnmxyIjntZx Ndy1HSSeM221BAU9mSfpa3 aiWGI2XIUmXMLcPuZuNm7z fHSzC752PREcZMLTERCqgF u0JKSmuySqmtNryMTHv387 J057l7osACOepeTlaXyAkb lkp5ytN991IUVhuWAyeyUf VgOoXQQcbOGnrLE1BYDkFD 3vqfetElHiSE2gevnbXgTa OQ9nokh1KiBvTH3ppaclCg IjAEyzRMKwyahuEMXgz3Zg anabJR2sY0Snu7O1sB5bnN VzKCRbkXKwIuBeSGTaed2i bTBtSFeyu8GbTYY1tbR6nS KjhAYxWTWxJE09Gfpvf2Zi JlwgXML2HZOofzWyi5Egi8 afHmOgvyDoG1nvD1CqOHMm OZJlDOKlGdFgwtBqm3Fiw4 EltSPhvYg3h3ufQPZwFVGc kLlfi4aaASI2JOOxB2K1zX Kgq1ytFJywNHKrnKC8tqgd UEzmGHOubiV1nqqnBZgaYS DhkLS6wactDFacMGEuZmO8 dqzbJGxwAFWzKCZ9QLnuj8 66EDH8HXrfWvejPGtjNXOb bmNvbnRccGduZGVjXHBsYW luXHBsYWluXGYwXGZzMjRc uGvgrPazvD2kWsGkUpYhDF ejDQ5rILBsH3vpnEUbACQm RSVqW5qaLyQdrO3bsGhkNX icruMhCJXjEYRkmB0zx1ex y6hot1WpWcZhZ03hleOhEG 3gCJOsbMCaa3McTVXaQENj x7Nxr6gnnbZ1tESwOC17T9 3iQRQ9uXSfDR5pzNDcY9ej x36oTuLzfhFwKM5kJHGqk4 2rXZ3oLNRslUEarfttWFSq C2UeUV12h1GrLVEoeiXzrR LgXBPwEH6vAO1jOJKdWyjs hCAkQJCaWHxzZGYes3ZxKy AigAxoIEL7QHzltmcaKzTt fxRhVOPeJuADuDMwKK6nuZ rwZFUkz1FaQFeztFWuq0Ds CG3nnLQtFMQrCKRwuSExu0 XiKScvziuhUn2iGJyijnVc d0QrFMUoXGHtJE8nzAUzmO KqdEefITXlAG2tWN9kA6vw yileIRukLO8tKQUfOY4rO8 3meVUcC35tmcLeBPHwb18z aXMgcmVxdWlyZWQuXHBhcn 0= CPT Code(s) (test code x0ivcVCuAROlvDGvLiWlUK = 3357) QnQXGdp7fpEVNyfARgOdOg MzNcZnRuYmpcdWMxXGRlZm Uqw2hut897sFUem8rrWHSr ZcQ4lALhMEGhlLUuB599h5 kqc3ovqiOkeLH2ARTgHDC6 QMwkmkCsdmR7APtueZXrOf G7ULxlnqFfTOvftwRfnbOj Igi5RXVvV212SUI9eIuow1 kxXUP7EFQkLOIcEeOdUt8t cZFhJ564SIGpTSMFSMAkvL s7CWBpboVfqbXyjUEGq180 E584w0plKUHxekHneJnCez miq7oeG179JPLdlNZjmxWq YoPgZAWuoHBboUN7CIGsPN 0ostbhWeLxHV5fxmbjMyGw CT5ihvq9LwZkCL5cmnxpNn GrKWdrUSIaatpiDIJru7Fj orppQV4uW8Pvs8Y6cP9yqF YpRTDjySIsFxCtOPLbxo2u uDYwZJswu4JnYUR1mcI6qP SceAQdLMXkZX92Ynufi1Kk AcmkLXE4UTAjooDjw5Nbg8 nfTzKltpLxK9yfM9ZyIRLq MIVcRIKiZpWdmvUat5Fvk1 XvmCExdEl5t1jlVOHhSFRe fXpnz3axIXF1ZFEiB4B1jI Fyp0azLVztKRGgdDF8aosg CKeaZTVsndR5nvetCBeqMV FidQC5ghwbIWdyMBOyGdX8 wtrbGTolYPJlDRG3CRost5 32KMG2ETrlYvbaAArpMIOk bmNvbnRccGduZGVjXHBsYW luXHBsYWluXGYwXGZzMjRc vMxpvVlucS4cPcIsSqHbQQ hrMM2wUBHbF6ytjLXvCTIp XKFoP1eaLkJxlB6neVxgTU btmbXiLUi9KdP5SNItti2= CLINICAL HISTORY (test b1hnmNSzKWZbiJUmNvXdID code = 3356) IgCWCpv2xtEXFpuSMnKwTo MzNcZnRuYmpcdWMxXGRlZm Pwr2scv152kBRdj3soJBHa YjF3nKVlBEOnuVCtY120OK BmPKthp7fhk7FdMMRpuJYs y3V7JBHGxuomlMe9pYscS2 4em0L2CqncT1iyFYYoEOsn PIMqZDnvlQKqHSB4YJRoOD E0KOtfbiHiguN2VTmtlKLa OuS4UDq3m6pocHugTGQeVR A4f7obKNhfyhKlWH2uoh7d kFf7y0wkkpTwBPYkSPNcdC DDQCNcK0LhzVrjSh5bkMy3 hPtmFhitKQK8Xwz1TG9pob 92wze1iTdgOBBzwgxoHhX2 UMvtQYXmqnvyLJx5INubKH JnbDcyMFxtYXJncjcyMFxt YXJndDcyMFxtYXJnYjcyMF qcMOYbDUY6MBpht323QQH6 BKeql4qld5aovMLlAzg1JI EgZwNnTctbYJavo6Xjb6ob KITeni4hWXM5zXPuaRyud3 W3vLMoYNCznOYcaxVpBGYm LgO1GKhuCJ6ccg41YJJmEV U2pn4qiMDljVhtxmCbuVNy PRsfG8HuLFKbl732PGPyR5 KrRHCvm9H8yxPlZiBcYHCl sGN4uwR7KVRvMHb2vQBhzf T4raSazLClJ5vtmL55LfLu rHAgC9KbiQ80XwZkiFCfH0 GqzN49SuMalNLkB6TksM27 DqLsbBVyIVXboZKwUc2gtE TnhWKhv4HqgBLpNRgqM87z h761TQGgfwGbJ8ycdXXgal xwbGFpblxmMFxmczIwXHFs XHBsYWluXGYwXGZzMjBccG uisZ4lWhOrZoRlNCNFwwDt XW1gDPRbo6GprTRzwZEnfj 4zhMY6TFOsQL7lG07lqQHo tTs3dfNsw6AaBFO7iZAvJQ SiED9iYNMDJuTlmzZvxT9y s5omjOGnCXMBFO1ffOLyDA LaXJAooiAobL0vyR4eXJUv VZfjm0PlqbcfWZHap81wxd AaAERzxF1thEHbvC== SPECIMEN SOURCE (test r6jmqWKfOKTvlLRzMlAvZX code = 3377) JmCRRdo2ikUNGawEDvLyKs MzNcZnRuYmpcdWMxXGRlZm Xlb3wyv557lJAbd7bqNDDe VvB2vUEvMHJveWVfH927j5 bka7tnfvVvxVE1PKOlBLG1 SXvkjhVcjzX3YQayuQSbNq F7TUrjziLtLEqyowYdksWy Pqv1SBRbG686FDW2eNevs2 atSHN8BYXwGNRcMgKcTl8c yKWkM006WYSrAJKCERLhgY c8KJSjifCfhsCutVGZc090 L594j3tgAQMikrVwbQhKkl gxa4feW870GKDunMWjqtZy ReKhMQThoZCzyVO5KFPsHS 8bdedgAnSqWY3bddkgTaBu IG8ivrr9MeGxXL4ylnuxKb RsRNlqNTLiixxlIXPto9Oc uurbEJ9fP1Eyt9N5wP4mqG ItOLTkoGNxPaBpVYYzre7o qPLsDEqtq0KgCQQ9ctI8eH GdiSZaOXOqWD43Kjsyk3Zi FxaqXPO9KTVfacMaz1Nfi2 jtEhPeurEbD0ztS6OpECLv CAXeHCXmRiClbjFtw6Yuy5 BbxTNegWh8r5vuDUNyBTOd tQsyi8pjTQD0NOEeI9S4sY Gcs7frTNrsYECkrSD4looz GUtqAECwonX4ljavTUzdYT GakZK9ljrgOIbbFXYlTaH6 pcwlALrfZEXnTIY2XVbzo8 91VJL8EVetGsjlFNmjGXJu bmNvbnRccGduZGVjXHBsYW luXHBsYWluXGYwXGZzMjRc zIbjqYqwlF4gXtErJeSrRE egDU7fRYUxP3fhqJQyHGTa XWQuL4ziFkTpdC1edUjaIJ xmczIwIEFtcHVsbGEsIGFt cHVsbGEgQnggXHBhcn0= GROSS DESCRIPTION (test n1nvmXJbOOCeeZFfQoBqIZ code = 3366) AmVXZta5vwEZRarTUzTkIw MzNcZnRuYmpcdWMxXGRlZm Fxq0bbm976zFZyz0pbADBk DbD2lDQoWNWdaMMpP302HS YaSSszl4spv3BkHXEguRMb r2I4FELCbaxpdPw4fZcmS4 7pj0Q8RxfgV5mpPIVhBXsk FRViXJgdoQIhWGZ0AHOcZL G2VPeqdiEmxiQ8XLyeqWMg MjW3ZEo1k7bmhLtzZXEaFN X9v0rtQPmltfKaRO8nea5c zMa9e3awljRiANHcCWKpoU WBBTGaU4VotClrWb5uzPu0 lUujNbrrSPD5Wlz5CD5xna 75dlp1fIjkQFWxrbzcZfP1 MIddSBNfskfbWDm0HVfuTF JnbDcyMFxtYXJncjcyMFxt YXJndDcyMFxtYXJnYjcyMF dkQLZaUFE1GYyre782NDG6 MZuxr6svv0fciPQpTfj0MQ IfXqYwPzhaODryz5Ocf5ox TUIvrq5pPYM2jWTafVqfi1 E3iZEyDLVlgTVaoeHyRSJt LdC4HCslYS4huj84KCAlJN T4fw3kuNWmdKnncwDyeRWd NSyqI2WeECMap676BTOzL0 YfKXInq8V8xcPjKeBkWWYg mFE2mvQ8WNOnQYw6zJCfzf J6rfFwoPNgC3qnfY11DjDj vDTmO8UepP79XrFxaXViM2 MdpD40QdLybNCdJ3ZezY63 BzGlfZJuHGZtmEZlDl7qqP SrkRXyh3ZfhHPkQFqjQ49r x798TSWgopYyK1uqjLWgtk xwbGFpblxmMFxmczIwXHFs XHBsYWluXGYwXGZzMjBccG wvxC9nIzOmAcCiQOSyHNXy YWluXGYxXGZzMjAgUmVjZW k2XQIkqN8qYv8ylKHkyB6h dQXgPOxbDQQ2jYPhKFEvOZ TeWNOnHQ20F0KxpjMoKFhz FBHcAQNmyG7aEX08jLLgqj TkdqSwpYtnbL2mDyAvQlPt MCAgImFtcHVsbGEiIGlzIG NkNK3mVTjdRN9yHJmxJN8i LMHbHLWfKQGyJD7oBRCcqp 7kir45ortvMNMaAOigVWJg SNNeHwTxrAWeRCv7oBGeIR BsYWluXGYwXGZzMjAgLCBt fLRwy8VeBNKifcWcURKogC ele7RkFpHsdPccuN9pFhKu UaKgLJTDgTLxx1GdJ8ikBB 4ov5FbaAw5eCZuEDplXYWc aH4sQr9huT77dK0yGAHwlV BsUOOgw09yiA3eU5Bte8O1 aCMpjOizjO4bFkByJuVzWN EyDPFcSHJWUr4gpXylKDI2 MICROSCOPIC DESCRIPTION l3ivoZVuUTKupEAzJkXoTL (test code = 3371) JnHVFxa8naQLPeyYOeFgTu MzNcZnRuYmpcdWMxXGRlZm Eym4rzy861jDXxb8ziEOBd ChO3cRSrSPMkyMBlP100HO PwFZyvg7stp4YeCZDbfZFd u6U1CIYPjpettJm6pJwgO0 8dr1U2VpsxK5zqRMTkQHie SOQfRYuksIAwVRM5UGSwAZ T5WIlnqkOdwoI6OPingTMt ToS8WWq0c7erwGmsHGXxDK A7c0guWYqwnxDkFE3nsf7s mWw2a2bhyjXaMIRtRJFxwT QMWERiT4HgfNnpWq5mgEv7 dYucGxskZAJ8Jzk1ET9vik 60ktn3lTuxCDLbrtzdZxN0 WUtdPWRzelzrTBn9XQnpIL JnbDcyMFxtYXJncjcyMFxt YXJndDcyMFxtYXJnYjcyMF buQLSuFJC9WSbxw581TYI9 OVoaw5ncn6ypgLXpDqp0MG UwDiMcFepiPBrag1Goh2di FDCgnn1tWXV0cILhtSnmr2 T7zTSoPBLcwZOmreWfGXSj oi60lXPgtFXzpTXlas1dqd PhmVFftAOtPEZ3jGWtwpVc XVLqaQWnUKMnJU8qnXCySH RypZ0kazhmQVBmJxRwggax KQHziJnkgsJxEm4rbZlbLA E3MXsiU9tnqY9aYuU0MWte M7qsfK0mORv5EUcsbII4LP ZwuQ5pAC6yiguzi5btClTn OI4rajswi9rnBkJiDA8uzz g7k3wvGzIhMN6bxfhag0qw NzIwXGhlYWRlcnkwXGZvb3 AsbjumVDHim9HyK9SfzVvb U76kbEbdG69cFMRrhWfzgV 6thIslzU7xKwSsIpFcKUvg bFxwbGFpblxmMFxmczIwXH BsYWluXGYxXGZzMjAgUGVy Qn9yfOEgHotbXTKtmHTsbN == [facility] [id number] 10:31:00Surgical Pathology Report Case: [id number] Authorizing Provider: Caleb Dawn Collected: 06/14/2019 1521 MD Carmen OrderingLocation: [facility] Received: 06/15/2019 0759 Service Pathologist: Misty Jackson MD Specimen: Ampulla, Ampulla Bx A. "AMPULLA", BIOPSY: - SQUAMOUS AND FOVEOLAR TYPE MUCOSA WITH MILD CHRONIC INFLAMMATION - NEGATIVE FOR MALIGNANCY (SEECOMMENT) Signing Pathologist Direct Phone Line: [phone] signed by Francisca Jackson MD on 06/19/2019 at 10:31 AMThe biopsy shows fragments of squamous and foveolar type mucosa with mild chronic inflammation and cautery. Focal muscle is also seen. No definite small bowel/ biliary lining is seen. The ampulla normally does not have squamous lining. This could be a metaplastic change. Clinical and endoscopic correlation is required.[id number] and postop diagnosis: endoscopic ultrasound with endo, EUS and possible ERCP.Pre and postop diagnosis: abdominal painAmpulla, ampulla Bx .Received in formalin labeled with the patient's name, accession number and "ampulla" is a 0.3 x 0.3 x 0.2 cm piece of meehan-brown, irregular, mucosal-covered tissue. The specimen submitted in toto following filtration in cassette A1. SS/plPerformed.IL, [id number] 12:50:00 Reason for exam:->Abdominal PainFINAL REPORT A fluoroscopic unit was utilized for a procedure performed in the operating room. No interpretation was requested. Please refer to the operative report regarding findings. Please refer to PACS for patient radiation dose information. Signed: Diana Nicholas MDReport Verified Date/Time: 06/16/2019 12:50:49 Reading Location: [facility] Radiology Reading Room [place] [id number] 12:50:00 Interface, External Ris In - 06/16/2019 12:52 PM CDTFINAL REPORT A fluoroscopic unit was utilized for a procedure performed in the operating room. No interpretation was requested. Please refer to the operative report regarding findings. Please refer to PACS for patient radiationdose information. Signed: iDana Nicholas MDReport Verified Date/Time: 06/16/2019 12:50:49 [facility] [place] [facility] Reading [facility] Culture - Routine (Left Venipuncture)2019-06-16 12:01:00 Test Item Value Reference Range Interpretation Comments Result (test code = No growth in 5 days 6463-4) [facility] [id number] 12:01:00 Test Item Value Reference Range Interpretation Comments CULTURE (BEAKER) (test No growth in 5 days code = 1095) BLOOD [id number] 12:01:00 Test Item Value Reference Range Interpretation Comments CULTURE (BEAKER) (test No growth in 5 days code = 1095) Comprehensive metabolic [id number] 07:08:00 Test Item Value Reference Range Interpretation Comments Protein, Total (test 7.0 6.0- 8.3 gm/dL code = 2885-2) Albumin (test code = 3.4 g/dL 3.5-5 L 66774-8) Alkaline Phosphatase 87 U/L 40-150 (test code = 6768-6) Total Bilirubin (test 0.6 mg/dL 0.2-1.2 code = 1975-2) Sodium (test code = 134 meq/L 136-145 L 2951-2) Potassium (test code = 4.5 meq/L 3.5-5.1 2823-3) Chloride (test code = 103 meq/L 98-107 5-0) CO2 (test code = 26 meq/L 22-29 8-9) BUN (test code = 19 mg/dL 7-21 3094-0) Creatinine (test code = 0.80 mg/dL 0.57-1.25 2160-0) Glucose (test code = 112 mg/dL 70-105 H 2345-7) Calcium (test code = 8.9 mg/dL 8.4-10.2 13060-8) AST (test code = 106 U/L 5-34 H 1920-8) ALT (test code = 73 U/L 6-55 H 1742-6) EGFR (test code = 99 mL/min/1.73 [place] [address]-5) NOT ACCURATE CREATININE CLEARANCE IN PREDICTING GLOMERULAR FILTRATION RATE . ESTIMATED GFR I S NOT APPLICABLE FOR DIALYSIS PATIEN TS. Lab Interpretation Abnormal (test code = 50464-8) [facility] [id number] 07:08:00 Test Item Value Reference Range Interpretation [...] = 382) CO2 (BEAKER) (test 26 meq/L 22-29 code = 355) BLOOD UREA NITROGEN 19 [...] NOT APPLICABLE FOR DIALYSIS PATIEN TS. BLOOD [id number] 02:00:00 Test Item Value Reference Range Interpretation Comments CULTURE (BEAKER) (test No growth in 5 days code = 1095) BLOOD [id number] 02:00:00 Test Item Value Reference Range Interpretation Comments CULTURE (BEAKER) (test No growth in 5 days code = 1095) BLOOD [id number] 02:00:00 Test Item Value Reference Range Interpretation Comments CULTURE (BEAKER) (test No growth in 5 days code = 1095) COMPREHENSIVE METABOLIC [id number] 04:49:00 Test Item Value Reference Range Interpretation [...] K/CU MM 777-3) MPV (test code = 73613-2) 11.4 fL 9.4-12.4 MP V-Approximately 20% positive bi as due to method change. nRBC (test code = 413) 0 0- 0 /100 WBC Lab Interpretation (test Abnormal code = 75224-0) [facility] ONLY)2019-06-14 04:38:00 Test Item Value Reference [...] PLATELET VOLUME 11.4 fL 9.4-12.4 MPV-Philippe roximately (ARIEL) (test code = 20% po sitive bias 754) due to method change. NUCLEATED RED BLOOD 0 /100 WBC 0-0 CELLS (ARIEL) (test code = 413) POC ACTIVATED CLOTTING [id number] 16:17:00 Test Item Value Reference Range Interpretation Comments Activated Clotting Time 125 sec [address] ED [address] [facility] 67 (test code = 441) [place] [address] [facility]POCT-[id number] 16:17:00 Test Item Value Reference Range Interpretation Comments ACTIVATED CLOTTING TIME 125 sec TEST ED AT [place] [address] [facility] (test code = [place] [address]) [address] ECG 12 [id number] 06:36:37Interface, External Ris In - 06/13/2019 6:36 AM CDTVentricular Rate 77 BPMAtrial Rate 77 BPMP-R Interval 154 msQRS Duration 112 msQ-T Interval 500 msQTC Calculation(Bazett) 565 msP Holland 77 degreesR Holland 73 degreesT [place] 83 degreesNormal sinus rhythmIncomplete right bundle branch blockLeft ventricularhypertrophy with repolarization abnormalityCannot rule out Septal infarct , age undeterminedProlonged QTAbnormal ECGConfirmed by MD ROSIE, SILVER Dorsey ([id number]) on 06/13/2019 6:36:31 [facility]Type [facility] ([facility] Lab)2019-06-13 06:00:00 Test Item Value Reference Range Interpretation Comments ABO/RH AUTOMATED (ARIEL) (test B POSITIVE code = 2260) Ab Scrn (test code = 890-4) NEGATIVE [facility] HospitalPET, CARDIAC PERFUSION MULTIPLE STUDIES, REST AND [id number] 16:40:00Reason for exam:->chest pain, evaluate for worsening CAD, s/p CABGFINAL REPORT PROCEDURE: MYOCARDIAL PERFUSION PET IMAGING (Rest/Stress)CPT CODE: 30916 INDICATION: Evaluate acute chest pain/discomfort CARDIOVASCULAR PROFILE:CAD [...] MDReport Verified Date/Time: 06/12/2019 16:40:23 Reading Location: [place] [id number] Reading Room [place] myocardial perfusion PET (rest and stress)2019-06-12 16:40:00Interface, External Ris In - 06/12/2019 4:42 PM CDTFINAL REPORT PROCEDURE: MYOCARDIAL PERFUSION PET IMAGING (Rest/Stress)CPT CODE: 06813 INDICATION: Evaluate acute chest pain/discomfort CARDIOVASCULAR PROFILE:CAD [...] MDReport Verified Date/Time: 06/12/2019 16:40:23 Reading Location: [address] [facility] Troponin [id number] 02:08:00 Test Item Value Reference Range Interpretation Comments Troponin I (test code = 0.05 ng/mL 0-0.03 H 78419-1) JENNIFER (test code = JENNIFER) Troponin I [...] tachyarrhythmia. Lab Interpretation (test Abnormal code = 63794-0) [facility] HospitalTROPONIN [id number] 02:08:00 Test Item Value Reference Range Interpretation [...] acute neurological disease, and persistent tachyarrhythmia.Basic metabolic [id number] 02:02:00 Test Item Value Reference Range Interpretation [...] (test code = 8.3 mg/dL 8.4-10.2 L 66061-7) EGFR (test code = 102 mL/min/1.73 [place] [address]-4) NOT ACCURATE CREATININE CLEARANCE IN PREDICTING GLOMERULAR FILTRATION RATE . ESTIMATED GFR I S NOT APPLICABLE FOR DIALYSIS PATIEN TS. Lab Interpretation Abnormal (test code = 83517-9) [facility] HospitalHepatic function [id number] 02:02:00 Test Item Value Reference Range Interpretation Comments Protein, Total (test code = 2885-2) 6.6 6.0- 8.3 gm/dL Albumin (test code = 33876-0) 3.3 g/dL 3.5-5 L Total Bilirubin (test code = 0.5 mg/dL 0.2-1.2 1974-2) Bilirubin, Direct (test code = 0.4 mg/dL 0.1-0.5 1967-7) Alkaline Phosphatase (test code = 39 U/L 40-150 L 6768-6) AST (test code = 1920-8) 22 U/L 5-34 ALT (test code = 1742-6) 26 U/L 6-55 Lab Interpretation (test code = Abnormal 85843-0) [facility] HospitalHEPATIC FUNCTION [id number] 02:02:00 Test Item Value Reference Range Interpretation [...] = 26 U/L 6-55 347) BASIC METABOLIC [id number] 02:02:00 Test Item Value Reference Range Interpretation [...] APPLICABLE FOR DIALYSIS PATIEN TS. Vancomycin level, [id number] 01:59:00 Test Item Value Reference Range Interpretation Comments Vancomycin Tr (test code 11.6 ug/mL 10-20 = 4092-3) JENNIFER (test code = JENNIFER) Please HOLD the dose until the trough comes back. If >20 mcg/ml, DO NOT administer the dose and contact the pharmacist. Lab Interpretation (test Normal code = 55308-6) [facility] HospitalVANCOMYCIN LEVEL, [id number] 01:59:00 Test Item Value Reference Range Interpretation [...] 0-0 (BEAKER) (test code = 413) Urine [id number] 12:05:00 Test Item Value Reference Range Interpretation Comments Result (test code = 6463-4) No growth [facility] HospitalProcalcitonin2019-08-18 07:20:00 Test Item Value Reference Range Interpretation Comments Procalcitonin (test code = 0.30 ng/mL <0.05 H 65884-9) JENNIFER (test code = JENNIFER) SEPSIS RISK (ng/mL)Low: 0.05-0.50Intermedi ate: 0.51-2.00High: >=2.01 Lab Interpretation (test Abnormal code = 84543-1) [facility] HospitalPROCALCITONIN2019-08-18 07:20:00 Test Item Value Reference Range Interpretation Comments PROCALCITONIN (BEAKER) (test code 0.30 ng/mL <0.05 H = 3036) SEPSIS RISK (ng/mL)Low: 0.05-0.50Intermediate: 0.51-2.00High: >=2.01BASIC METABOLIC [id number] 07:16:00 Test Item Value Reference Range Interpretation [...] APPLICABLE FOR DIALYSIS PATIEN TS. HEPATIC FUNCTION [id number] 07:16:00 Test Item Value Reference Range Interpretation [...] of Study 06/10/2019 [place] Gender MaleVisit Number [id number] Race Unknown Room Number 2138 Number Date of 1960 Referring Physician Carolina Bansal MD Age 58 year(s) Solderer Dipper Tristan Carrillo Roster Clerk Daiana Bravo Interpreting Chris Grossman MD Physician [...] LVOT CO: 4.78 l/min LVOT CI: 2.63 l/min/m^2CSanta Marta HospitalLipid [id number] 05:55:00 Test Item Value Reference Range Interpretation Comments Triglycerides (test 97 mg/dL code = 2571-8) Cholesterol (test code 124 mg/dL = 3-3) HDL (test code = 34 mg/dL 2085-06) LDL Calculated (test 71 mg/dL code = 69629-4) JENNIFER (test code = JENNIFER) Triglyceride Reference Range: Low Risk <150 Borderline 150-199 High Risk 200-499 Very High Risk >=500 Cholesterol Reference Range: Low Risk <200 Borderline 200-239 High Risk >240 HDL Cholesterol Reference Range: Low Risk >=60 High Risk <40 LDL Cholesterol Reference Range: Optimal <100 Near Optimal 100-129 Borderline 130-159 High 160-189 Very High >=190 [facility]2019-08-17 05:55:00 Test Item Value Reference Range Interpretation Comments Magnesium (test code = 14687-9) 2.1 mg/dL 1.6-2.6 Lab Interpretation (test code = Normal 04975-9) [facility]2019-08-17 05:55:00 Test Item Value Reference Range Interpretation Comments MAGNESIUM (BEAKER) (test code = 2.1 mg/dL 1.6-2.6 627) LIPID [id number] 05:55:00 Test Item Value Reference Range Interpretation [...] 130-159 High 160-189 Very High >=190HEPATIC FUNCTION [id number] 05:55:00 Test Item Value Reference Range Interpretation [...] = 34 U/L 6-55 347) BASIC METABOLIC [id number] 05:55:00 Test Item Value Reference Range Interpretation [...] TS. CBC with platelet count + automated [id number] 05:03:00 Test Item Value Reference Range Interpretation [...] 450 K/CU MM MPV (test code = 15924-4) 11.5 fL 9.4-12.4 nRBC (test code = [...] 2801) Lab Interpretation (test code = Abnormal 02050-7) [facility] W/PLT COUNT & AUTO [id number] 05:03:00 Test Item Value Reference Range Interpretation [...] PERCENT (BEAKER) (test code = 2801) TROPONIN [id number] 05:02:00 Test Item Value Reference Range Interpretation [...] neurological disease, and persistent tachyarrhythmia.Lactic acid, venous, [id number] 04:48:00 Test Item Value Reference Range Interpretation Comments Lactate, Venous (test code = 2872) 1.1 mmol/L 0.5-2.2 Lab Interpretation (test code = Normal 67809-4) [facility] HospitalLACTIC ACID, [id number] 04:48:00 Test Item Value Reference Range Interpretation Comments LACTATE BLOOD VENOUS (2) (BEAKER) 1.1 mmol/L 0.5-2.2 (test code = 2872) Urinalysis w/Microscopic + Reflex to [id number] 03:25:00 Test Item Value Reference Range Interpretation Comments Color, UA (test code = 5778-6) Yellow Clarity, UA (test code = 5767-9) Hazy Specific [place], UA (test code = 1.030 1.001-1.035 5811-5) pH, UA (test code = 5803-2) 5.5 5.0-8.0 Protein, UA (test code = 62931-8) 70 mg/dL Negative A Glucose, UA (test code = 365) 200 mg/dL Negative A Ketones, UA (test code = 2514-8) Trace Negative A Bilirubin, UA (test code = Negative Negative 85579-7) Blood, UA (test code = 01022-8) Negative Negative Nitrite, UA (test code = 5802-4) Negative Negative Leukocytes, UA (test code = Large Negative A 5799-2) Urobilinogen, UA (test code = 2.0 mg/dL 0.2-1 H 01961-4) RBC, UA (test code = 43959-2) 7 /HPF WBC, UA (test code = 5821-4) 135 /HPF Mucus (test code = 8247-9) Occasional Squam Epithel, UA (test code = 10 /HPF 95991-8) Hyaline Casts, UA (test code = 18 /LPF 20590-9) Specimen Source (test code = 2795) Lab Interpretation (test code = Abnormal 14805-8) [facility]UR[facility] W/ REFLEX URINE [id number] 03:25:00 Test Item Value Reference Range Interpretation [...] SOURCE(BEAKER) (test code = 2795) Oxygen saturation, [id number] 03:04:00 Test Item Value Reference Range Interpretation Comments O2 Saturation 86.6 % (Measured) (test code = 66624-9) JENNIFER (test code = JENNIFER) If patient has internal jugular ( IJ) or subclavian central line or PICC line. Draw from distal port. Label as central venous oxygen. [facility], [id number] 03:04:00 Test Item Value Reference Range Interpretation [...] 0.7 mmol/L 0.5-2.2 (test code = 2872) [id number] 23:52:00 Test Item Value Reference Range Interpretation Comments PROCALCITONIN (BEAKER) (test code 0.30 ng/mL <0.05 H = 3036) SEPSIS RISK (ng/mL)Low: 0.05-0.50Intermediate: 0.51-2.00High: >=2.01TROPONIN [id number] 23:40:00 Test Item Value Reference Range Interpretation [...] failure, acidosis, acute neurological disease, and persistent tachyarrhythmia.[id number] 23:34:00 Test Item Value Reference Range Interpretation Comments Lipase (test code = 3040-3) 38 U/L 8-78 Lab Interpretation (test code = Normal 34470-1) [facility] 23:34:00 Test Item Value Reference Range Interpretation Comments Phosphorus (test code = 2777-1) 3.4 mg/dL 2.3-4.7 Lab Interpretation (test code = Normal 67077-3) [facility] 23:34:00 Test Item Value Reference Range Interpretation Comments PHOSPHORUS (BEAKER) (test code = 3.4 mg/dL 2.3-4.7 604) [id number] 23:34:00 Test Item Value Reference Range Interpretation Comments MAGNESIUM (BEAKER) (test code = 2.2 mg/dL 1.6-2.6 627) BASIC METABOLIC [id number] 23:34:00 Test Item Value Reference Range Interpretation [...] APPLICABLE FOR DIALYSIS PATIEN TS. HEPATIC FUNCTION [id number] 23:34:00 Test Item Value Reference Range Interpretation [...] = 42 U/L 6-55 347) COMPREHENSIVE METABOLIC [id number] 23:34:00 Test Item Value Reference Range Interpretation [...] S NOT APPLICABLE FOR DIALYSIS PATIEN TS. [id number] 23:34:00 Test Item Value Reference Range Interpretation Comments LIPASE ([facility]) (test code = 749) 38 U/L 8-78 [id number] 23:33:00 Test Item Value Reference Range Interpretation Comments Fibrinogen (test code = 3255-7) 300 mg/dl 225-434 Lab Interpretation (test code = Normal 19999-8) [facility] 23:33:00 Test Item Value Reference Range Interpretation Comments PTT (test code = 41134-4) 27.3 22.5- 36.0 seconds Lab Interpretation (test code = Normal 40697-8) [facility] 23:33:00 Test Item Value Reference Range Interpretation Comments PARTIAL THROMBOPLASTIN TIME 27.3 seconds 22.5-36.0 (AKER) (test code = 760) [id number] 23:33:00 Test Item Value Reference Range Interpretation Comments FIBRINOGEN LEVEL (AKER) (test 300 mg/dl 225-434 code = 658) Prothrombin time/[id number] 23:32:00 Test Item Value Reference Range Interpretation [...] valves. Lab Interpretation Normal (test code = 39353-9) [facility] HospitalPROTHROMBIN [facility]/[id number] 23:32:00 Test Item Value Reference Range Interpretation [...] mechanical heart valves.CBC W/PLT COUNT & AUTO [id number] 23:22:00 Test Item Value Reference Range Interpretation [...] (BEAKER) (test code = 2801) Blood gas, [id number] 22:27:00 Test Item Value Reference Range Interpretation Comments pH, Arterial (test code = 2744-1) 7.41 7.35-7.45 pCO2, Arterial (test code = 38 35- 45 mmHg 2018-8) pO2, Arterial (test code = 87 80- 90 mmHg 3-7) O2 Sat, Arterial (test code = 96.8 % 96-97 8-6) HCO3, Arterial (test code = 24 mmol/L 21-29 1959-4) Base Excess, Arterial (test code -0.7 mmol/L -2-3 = 1925-7) Patient Temperature (test code = 37.0 C 8310-5) FIO2 (test code = 1819) 21 % [facility] [id number] 22:27:00 Test Item Value Reference Range Interpretation [...] code = 1819) 21.0 % POC-Lactic Acid, [id number] 21:53:00 Test Item Value Reference Range Interpretation Comments POC-Lactic Acid, Venous 1.6 mmol/L 0.9-1.[address] [facility] (test code = 2805) [address] [facility] 7703 0 Lab Interpretation (test Normal code = 91168-6) [facility]PO[facility], [id number] 21:53:00 Test Item Value Reference Range Interpretation Comments POC-LACTIC ACID, 1.6 mmol/L 0.9-1.7 TESTED AT [facility] 67 VENOUS (BEAKER) (test [facility] code = 2805) [address] TROPONIN [id number] 18:59:00 Test Item Value Reference Range Interpretation [...] acute neurological disease, and persistent tachyarrhythmia.HEPATITIS C [id number] 16:55:00 Test Item Value Reference Range Interpretation Comments HEPATITIS C ANTIBODY (BEAKER) (test Reactive Nonreactive A code = 367) POCT-GLUCOSE [id number] 12:03:00 Test Item Value Reference Range Interpretation Comments POC-GLUCOSE METER 169 mg/dL 70-[address] [facility] 67 ([facility]) (test code = [facility] 1538) [address] HEPATITIS B CORE ANTIBODY, [id number] 08:37:00 Test Item Value Reference Range Interpretation Comments HEPATITIS B CORE TOTAL ANTIBODY Reactive Nonreactive A (BEAKER) (test code = 497) POCT-GLUCOSE [id number] 08:14:00 Test Item Value Reference Range Interpretation Comments POC-GLUCOSE METER 105 mg/dL 70-[address] [facility] 6720 (BEAKER) (test code = [facility] Pae[facility] 1538) [address] HEPATIC FUNCTION [id number] 07:10:00 Test Item Value Reference Range Interpretation Comments TOTAL PROTEIN (BEAKER) (test code = 6.7 gm/dL 6.0-8.3 770) ALBUMIN (BEAKER) (test code = 1145) 3.5 g/dL 3.5-5.0 BILIRUBIN TOTAL (BEAKER) (test code 0.5 mg/dL 0.2-1.2 = 377) BILIRUBIN DIRECT (BEAKER) (test 0.3 mg/dL 0.1-0.5 code = 706) ALKALINE PHOSPHATASE (BEAKER) (test 60 U/L 40-150 code = 346) AST (SGOT) (BEAKER) (test code = 47 U/L 5-34 H 353) ALT (SGPT) (BEAKER) (test code = 67 U/L 6-55 H 347) BASIC METABOLIC [id number] 07:10:00 Test Item Value Reference Range Interpretation [...] FOR DIALYSIS PATIEN TS. HEPATITIS B SURFACE [id number] 06:58:00 Test Item Value Reference Range Interpretation Comments HEPATITIS B SURFACE ANTIBODY < mIU/mL <8.0 (BEAKER) (test code = 647) HEPATITIS B SURFACE [id number] 05:42:00 Test Item Value Reference Range Interpretation Comments HEPATITIS B SURFACE ANTIGEN (2) Nonreactive Nonreactive (BEAKER) (test code = 2585) HEPATITIS B CORE ANTIBODY, [id number] 05:42:00 Test Item Value Reference Range Interpretation Comments HEPATITIS B CORE IGM ANTIBODY Nonreactive Nonreactive (BEAKER) (test code = 645) CBC W/PLT COUNT & AUTO [id number] 04:56:00 Test Item Value Reference Range Interpretation [...] (test code = 2801) U/S, RENAL WITH [id number] 16:28:00Reason for exam:->hypertensionFINAL REPORT INDICATION: 57-year-old inpatient [...] MDReport Verified Date/Time: 05/11/2018 16:28:02 Reading Location: [address] Ultrasound Reading Room U/S, ABDOMINAL, [id number] 16:15:00Abdomen limited area? Add comment if clarification [...] MDReport Verified Date/Time: 05/11/2018 16:15:41 Reading Location: [address] Ultrasound Reading Room CTA, CHEST, ABDOMEN - PELVIS, FOR [id number] 14:11:00Reason for exam:->Chest painAddendum BeginsREPORT STATUS:A Addendum: I agree with the previously described non vascular findings. Signed: Antionette Hinojosa MDReport Verified Date/Time: 05/11/2018 14:11:09 Reading Location: [place] [address] Angio Body Reading RoomAddendum EndsFINAL REPORT CT [...] coronary artery calcification is seen in the [place] coronary territories. Patient is post coronary artery [...] thoracic aorta. In the abdominal aorta, circumferential [id number] calcific atherosclerosis is seen. Overall, no ectasia [...] An addendum will be dictated by the Work Adjustment Instructor Radiologist regarding the nonvascular findings. Signed: Magno Augustin MDReport Verified Date/Time: 05/10/2018 18:58:16 Reading Location: [place] [address] Cardiology MRI CALCIUM, [id number] 05:20:00 Test Item Value Reference Range Interpretation Comments CALCIUM IONIZED (BEAKER) (test 1.16 mmol/L 1.12-1.27 code = 698) PH, BLOOD (BEAKER) (test code = 7.40 1810) [id number] 04:29:00 Test Item Value Reference Range Interpretation Comments PHOSPHORUS (BEAKER) (test code = 3.5 mg/dL 2.3-4.7 604) [id number] 04:29:00 Test Item Value Reference Range Interpretation Comments MAGNESIUM (BEAKER) (test code = 2.4 mg/dL 1.6-2.6 627) COMPREHENSIVE METABOLIC [id number] 04:29:00 Test Item Value Reference Range Interpretation [...] PATIEN TS. CBC W/PLT COUNT & AUTO [id number] 03:58:00 Test Item Value Reference Range Interpretation [...] (BEAKER) (test code = 2801) U/S, RENAL, [id number] 13:00:00Reason for exam:->akiShould this be performed at [...] MDReport Verified Date/Time: 05/10/2018 13:00:32 Reading Location: [address] Ultrasound Reading Room CALCIUM, [id number] 06:58:00 Test Item Value Reference Range Interpretation Comments CALCIUM IONIZED (BEAKER) (test 1.08 mmol/L 1.12-1.27 L code = 698) PH, BLOOD (BEAKER) (test code = 7.35 1810) B-TYPE NATRIURETIC FACTOR (BNP)2018-05-10 05:49:00 Test Item Value Reference Range Interpretation Comments B-TYPE NATRIURETIC PEPTIDE (BEAKER) 153 pg/mL 0-100 H (test code = 700) [id number] 05:47:00 Test Item Value Reference Range Interpretation Comments MAGNESIUM (BEAKER) 2.4 mg/dL 1.6-2.6 Specimen slightly (test code = 627) hemolyzed [id number] 05:47:00 Test Item Value Reference Range Interpretation Comments PHOSPHORUS (BEAKER) 2.7 mg/dL 2.3-4.7 Specimen slightly (test code = 604) hemolyzed COMPREHENSIVE METABOLIC [id number] 05:47:00 Test Item Value Reference Range Interpretation [...] PATIEN TS. CBC W/PLT COUNT & AUTO [id number] 05:31:00 Test Item Value Reference Range Interpretation [...] 0-1 PERCENT (BEAKER) (test code = 2801) EOSINOPHIL SMEAR, [id number] 22:19:00 Test Item Value Reference Range Interpretation Comments EOSINOPHIL SMEAR, URINE (BEAKER) No EOS seen No EOS seen (test code = 1851) URINALYSIS W/ [id number] 22:13:00 Test Item Value Reference Range Interpretation [...] SOURCE(BEAKER) (test code = 2795) SODIUM, RANDOM [id number] 21:38:00 Test Item Value Reference Range Interpretation Comments SODIUM URINE (BEAKER) (test code = < meq/L 243) Reference Range: No NormalsPROTEIN, RANDOM [id number] 21:38:00 Test Item Value Reference Range Interpretation Comments PROTEIN, URINE (BEAKER) (test code = 15 mg/dL 0-14 H 1569) CREATININE, RANDOM [id number] 21:38:00 Test Item Value Reference Range Interpretation Comments CREATININE URINE (BEAKER) (test 173.4 mg/dL code = 375) Reference Range: No NormalsRAD, FOOT, 2 VIEWS, [id number] 13:59:00Reason for exam:->Pain and swelling of left foot after fall.FINAL REPORT Two views left foot Discussion: There is hallux valgus with degen erative changes. No visible acute fracture, dislocation, destructive lesion. Soft tissues are unremarkable. Signed: Darren Ariza Verified Date/Time: 05/09/2018 13:59:01 Reading Location: [facility] Consult Reading Room PUL PERF IMAGING, PARTIC, [id number] 12:03:00FINAL REPORT PROCEDURE: V/Q LUNG SCAN CPT CODE: 45459 INDICATION: Acute chest pain, PE suspected, dyspnea, [...] of acute pulmonary embolization. Signed: Leticia Pimentel Verified Date/Time: 05/09/2018 12:03:05 ReadingLocation: [facility] [address] [facility] Med Reading Room FL, ESOPH, SWALLOW FUNCTION, WITH CINE OR [id number] 11:00:00Reason for exam:->chest painFINAL REPORT Esophagram History: [...] Verified Date/Time: 0 05/09/2018 11:00:37 Reading Location: [address] Ortho Consult Reading Room HEMOGLOBIN [id number] 10:45:00 Test Item Value Reference Range Interpretation Comments HEMOGLOBIN A1C (BEAKER) (test code = 6.3 % 4.3-6.1 H 368) BASIC METABOLIC [id number] 08:43:00 Test Item Value Reference Range Interpretation [...] FOR DIALYSIS PATIEN TS. Re-draw per labLIPID [id number] 08:42:00 Test Item Value Reference Range Interpretation [...] Borderline 130-159 High 160-189 Very High >=190LITHIUM [id number] 08:31:00 Test Item Value Reference Range Interpretation Comments LITHIUM LEVEL (BEAKER) (test code 0.4 mmol/L 0.8-1.2 L = 630) RAPID DRUG SCREEN, [id number] 07:54:00 Test Item Value Reference Range Interpretation [...] situations. Chain of custody not maintained. Some khdc-zze-zmokdxr medications, as well as adulterants, may cause inaccurate results. Clinical correlation should be applied. A more comprehensive drug screen or confirmation of a detected drug may be performed upon request.CREATINE KINASE (CK), TOTAL AND [id number] 07:47:00 Test Item Value Reference Range Interpretation Comments CREATINE KINASE TOTAL (BEAKER) 161 U/L 29-200 (test code = 380) CREATINE KINASE-MB (BEAKER) (test 4.9 ng/mL 0.0-6.6 code = 750) CREATINE KINASE-MB INDEX (BEAKER) 3.0 % (test code = 395) CK-MB Reference Range:<6.7 Normal6.7-10.0 Borderline>10.0 AbnormalTROPONIN [id number] 07:47:00 Test Item Value Reference Range Interpretation [...] acute neurological disease, and persistent tachyarrhythmia.BASIC METABOLIC [id number] 04:56:00 Test Item Value Reference Range Interpretation [...] (test code = 413) CT, BRAIN, WITHOUT [id number] 21:00:00FINAL REPORT CT, BRAIN, WITHOUT CONTRAST INDICATION: [...] MDReport Verified Date/Time: 05/08/2018 21:00:20 Reading Location: [address] Reading Room B-TYPE NATRIURETIC FACTOR (BNP)2018-05-08 19:03:00 Test Item Value Reference Range Interpretation Comments B-TYPE NATRIURETIC PEPTIDE (BEAKER) 254 pg/mL 0-100 H (test code = 700) CREATINE KINASE (CK), TOTAL AND [id number] 19:02:00 Test Item Value Reference Range Interpretation Comments CREATINE KINASE TOTAL (BEAKER) 150 U/L 29-200 (test code = 380) CREATINE KINASE-MB (BEAKER) (test 5.5 ng/mL 0.0-6.6 code = 750) CREATINE KINASE-MB INDEX (BEAKER) 3.7 % (test code = 395) CK-MB Reference Range:<6.7 Normal6.7-10.0 Borderline>10.0 AbnormalTROPONIN [id number] 19:02:00 Test Item Value Reference Range Interpretation [...] acute neurological disease, and persistent tachyarrhythmia.BASIC METABOLIC [id number] 18:32:00 Test Item Value Reference Range Interpretation [...] PATIEN TS. CBC W/PLT COUNT & AUTO [id number] 18:28:00 Test Item Value Reference Range Interpretation [...] 0-1 PERCENT (BEAKER) (test code = 2801) [id number] 18:15:00 Test Item Value Reference Range Interpretation Comments PARTIAL THROMBOPLASTIN TIME 30.0 seconds 22.5-36.0 (BEAKER) (test code = 760) Prior to initiating heparinXR Fluoroscopy in Imaging per [id number] 12:25:17 Patient: ALHAJI FARAH Date/Time04/05/2018 11:30 CDTReason for Examlumbar laminectomyReportEXAM: FLUOROSCOPIC GUIDANCECLINICAL HISTORY: lumbar laminectomyTECHNIQUE: Fluoroscopic guidance was provided for spinal procedure.FINDINGS:Fluoroscopic guidance was provided for spinal procedure.Fluoroscopy time: Less than 5 minutesIMPRESSION: Fluoroscopic guidance was provided for spinal procedure.LOCATION: 6 Final Dictated by: MD Kirkland Melanie CDictated DT/TM: 04/05/2018 12:24 pmSigned by: MD Kirkland Melanie CSigned (Electronic Signature): 04/05/2018 12:25 pm
--- OUTSIDE RECORDS SUMMARY | 2020-05-19 13:26 | XMS REPORT ---
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
[2020-05-19] MEDS ORDERED: HYDROMORPHONE HCL 1 MG/ML INJ ONE ×3 (13:41→21:45)
[2020-05-19] MEDS ORDERED: ONDANSETRON 4 MG/2 ML VIAL ONE ×2 (13:42→14:35)
[2020-05-19] MEDS ORDERED: NA CHLORIDE 0.9% 1,000 ML ONE (13:42)
[2020-05-19 14:01] LABS: Protime INR 1.05
[2020-05-19 14:02] LABS: Absolute Lymphocytes (CBC) 1.3 K/uL (0.7-4.9); Basophils % 0.5 % (0-1.3); Hematocrit 47.1 % (39.6-49.0); Lymphocytes % 11.7 % (15.3-44.8); MPV 11.1 fL (7.6-11.3); RBC Red Blood Cell Count 5.11 M/uL (4.33-5.43)
[2020-05-19] MEDS ORDERED: METOPROLOL TARTRATE 5 MG/5 ML INJ IV ONE (14:03)
[2020-05-19 14:24] LABS: Albumin 4.1 g/dL (3.4-5.0); Bilirubin Direct 0.4 mg/dL (0-0.2); Bilirubin Total 0.9 mg/dL (0.2-1.0); Magnesium 2.6 mg/dL (1.8-2.4); Potassium 3.9 mmol/L (3.5-5.1); Protein, Total 9.7 g/dL (6.4-8.2); Thyroid Stimulating Hormone 3.07 uIU/mL (0.360-3.740); Troponin (Emerg Dept Use Only) 0.05 ng/mL (0.0-0.045)
--- NOTE | 2020-05-19 14:35 | RAD REPORT ---
EXAM DESCRIPTION: CT - Angio Aorta For Dissection - 05/19/2020 2:13 pm CLINICAL HISTORY: . [place] t[place] abd pain COMPARISON: 03/2020 TECHNIQUE: Computed tomography angiography of the chest, abdomen pelvis were obtained. 100 cc Isovue 370 was administered intravenously. Coronal and sagittal reconstruction were performed. MIP 3D reconstruction was performed All CT scans are performed using dose optimization technique as appropriate and may include automated exposure control or mA/KV adjustment according to patient size. FINDINGS: An aortic dissection is not seen. An aortic aneurysm is not displayed. The celiac, SMA and KEITH are patent . A lung consolidation is not present. A pericardial effusion is not seen. A pleural effusion is not n oted. Centrilobular and paraseptal emphysema. Calcified pleural plaques 6 centimeter heterogeneous enhancement involves the medial segment left lobe of liver Spleen, pancreas adrenals kidneys demonstrate no significant abnormality. Neurostimulator device in place. No evidence of diverticulitis . Cholecystectomy. Prominence of the common bile duct Calcified pleural plaque . . Atherosclerotic disease Prostate gland is enlarged and abuts the posterior bladder. Normal appendix Right testicle lies within the right inguinal region IMPRESSION: Negative for an aortic dissection. Prominence of the common bile duct presumably physiologic in this patient status post cholecystectomy . Pathology can also result in this appearance and should be correlated clinically with appropriate l ab values 6 centimeter heterogeneous enhancement medial segment left lobe of liver probably differential perfus ion. A mass is considered less likely. Ultrasound recommended. Nonemergent ultrasound recommended
--- NOTE | 2020-05-19 14:45 | EDPHYS ---
Physician Documentation [facility] Name: Blayne Macias Age: 59 yrs Sex: Male : 1960 Arrival Date: 05/19/2020 Time: 13:11 Bed 10 Private MD: ED Physician Michael Estrada HPI: 05/19 13:36 This 59 yrs old Male presents to ER via EMS with complaints of Abdominal Pain.[facility] 13:36 The patient or guardian reports chest pain that is located primarily in the anterior berta chest wall, bilaterally. Onset: just prior to arrival. The patient presents with abdominal pain in the upper abdomen, in the lower abdomen, right lower quadrant. Onset: The symptoms/episode began/occurred this morning. The pain radiates to chest and abdomen. Associated signs and symptoms: Pertinent positives: nausea and vomiting. Modifying factors: The symptoms are alleviated by nothing, the symptoms are aggravated by nothing. The chest pain is described as a pressure. Historical: - Allergies: 13:17 Codeine; bp 13:17 PENICILLINS; bp - Home Meds: 13:17 aspirin 81 mg Oral chew 1 tab once daily [Active]; amiodarone 200 mg Oral tab 0.5 tab 2 bp times per day [Active]; amitriptyline 50 mg Oral tab 1 tab once daily [Active]; amlodipine 10 mg tab 1 tab once daily [Active]; atorvastatin 20 mg Oral tab 1 tab once daily [Active]; carvedilol 25 mg Oral tab 0.5 tab 2 times per day [Active]; carvedilol 25 mg Oral tab 1 tab 2 times per day [Active]; citalopram 20 mg tab 1 tab once daily [Active]; clopidogrel 75 mg Oral tab 1 tab once daily [Active]; hydrochlorothiazide 12.5 mg Oral tab 1 tab once daily [Active]; isosorbide mononitrate 60 mg Oral Tb24 [Active]; potassium chloride 20 mEq Oral TbER 1 tab once daily [Active]; isosorbide mononitrate 60 mg Oral Tb24 1 tab once daily [Active]; lithium carbonate 600 mg Oral cap 1 cap nightly [Active]; losartan 25 mg Oral tab 1 tab once daily [Active]; mometasone-formoterol inhalation [Active]; ranolazine 1000 mg Oral [Active]; simvastatin 40 mg Oral tab 1 tab once daily [Active]; nitroglycerin 0.4 mg SL subl 1 tab [Active]; Norvasc 10 mg Oral tab once daily [Active]; - PMHx: 13:17 "electrical stimulator"; Atrial Fib; Back pain; Bipolar disorder; CAD; CHF; chronic bp back pain; Cirrhosis; COPD; Hepatitis; High Cholesterol; Hypertension; Pneumonia; - Immunization history:: Adult Immunizations up to date. - Social history:: Smoking status: unknown. - Family history:: not pertinent. ROS: 13:37 Constitutional: Negative for fever, chills, and weight loss, Eyes: Negative for injury, berta pain, redness, and discharge, ENT: Negative for injury, pain, and discharge, Neck: Negative for injury, pain, and swelling, Respiratory: Negative for shortness of breath, cough, wheezing, and pleuritic chest pain, Back: Negative for injury and pain, : Negative for injury, bleeding, discharge, and swelling, MS/Extremity: Negative for injury and deformity, Skin: Negative for injury, rash, and discoloration, Neuro: Negative for headache, weakness, numbness, tingling, and seizure, Psych: Negative for depression, anxiety, suicide ideation, homicidal ideation, and hallucinations, Allergy/Immunology: Negative for hives, rash, and allergies, Endocrine: Negative for neck swelling, polydipsia, polyuria, polyphagia, and marked weight changes, Hematologic/Lymphatic: Negative for swollen nodes, abnormal bleeding, and unusual bruising. 13:37 Cardiovascular: Positive for chest pain, palpitations. 13:37 Abdomen/GI: Positive for abdominal pain, nausea and vomiting, of the right upper quadrant, left upper quadrant, right lower quadrant and left lower quadrant. Exam: 13:37 Constitutional: This is a well developed, well nourished patient who is awake, alert, berta and in no acute distress. Head/Face: Normocephalic, atraumatic. Eyes: Pupils equal round and reactive to light, extra-ocular motions intact. Lids and lashes normal. Conjunctiva and sclera are non-icteric and not injected. Cornea within normal limits. Periorbital areas with no swelling, redness, or edema. ENT: Nares patent. No nasal discharge, no septal abnormalities noted. Tympanic membranes are normal and external auditory canals are clear. Oropharynx with no redness, swelling, or masses, exudates, or evidence of obstruction, uvula midline. Mucous membranes moist. Neck: Trachea midline, no thyromegaly or masses palpated, and no cervical lymphadenopathy. Supple, full range of motion without nuchal rigidity, or vertebral point tenderness. No Meningismus. Chest/axilla: Normal chest wall appearance and motion. Nontender with no deformity. No lesions are appreciated. Respiratory: Lungs have equal breath sounds bilaterally, clear to auscultation and percussion. No rales, rhonchi or wheezes noted. No increased work of breathing, no retractions or nasal flaring. Back: No spinal tenderness. No costovertebral tenderness. Full range of motion. Male : Normal genitalia with no discharge or lesions. Skin: Warm, dry with normal turgor. Normal color with no rashes, no lesions, and no evidence of cellulitis. MS/ Extremity: Pulses equal, no cyanosis. Neurovascular intact. Full, normal range of motion. Neuro: Awake and alert, GCS 15, oriented to person, place, time, and situation. Cranial nerves II-XII grossly intact. Motor strength 5/5 in all extremities. Sensory grossly intact. Cerebellar exam normal. Normal gait. Psych: Awake, alert, with orientation to person, place and time. Behavior, mood, and affect are within normal limits. 13:37 Cardiovascular: Rate: tachycardic, Rhythm: irregularly irregular, Pulses: Pulses are 4+ in bilateral radial, brachial, femoral, popliteal, posterior tibial and and dorsalis pedis arteries.. Heart sounds: normal, Edema: is not appreciated, JVD: is not appreciated. 13:42 ECG was reviewed by the Attending Physician. [facility] 19:44 ECG was reviewed by the Attending Physician. [facility] Vital Signs: 13:20 BP 200 / 100; Pulse 70; Resp 17; Temp 97.3; Pulse Ox 98% ; Weight 68.04 kg; bp 13:46 BP 203 / 115; Pulse 121; Resp 19; Pulse Ox 99% ; Pain 7/10; ls4 14:00 BP 198 / 124; Pulse 103; Resp 17; Pulse Ox 97% ; ls4 14:53 BP 205 / 106; Pulse 98; Resp 20; Pulse Ox 99% on R/A; Pain 5/10; ls4 17:01 BP 166 / 84; Pulse 99; Resp 20; Temp 97.5; Pulse Ox 96% ; bp 18:17 BP 201 / 84; Pulse 99; Resp 25; Pulse Ox 98% ; bp 18:35 BP 224 / 108; Pulse 95; Resp 23; Pulse Ox 97% on R/A; bp 20:01 BP 144 / 84; Pulse 103; Resp 20 S; Pulse Ox 96% on R/A; jd3 MDM: 13:12 Patient medically screened. [facility] 13:39 Data reviewed: vital signs, nurses notes, lab test result(s), EKG, radiologic studies, [facility] CT scan, plain films. 13:40 Differential diagnosis: abnormal EKG, acute myocardial infarction, coronary artery berta disease chest wall pain, cholecystitis, Cholelithiasis esophagitis, gastritis, pancreatitis, peptic ulcer disease, stable angina, unstable angina, acute coronary syndrome, bowel obstruction, non-specific abd pain, urinary tract infection. HEART Score: ECG: Non specific repolarization disturbance / LBTB / PM (1), Age: > 45 and < 65 years (1), Risk Factors: > or = 3 Risk factors for atherosclerotic disease (2), [Hypercholesterolemia] [Hypertension] [+ Family HX]. The patient was not given aspirin in the Emergency Department. Not indicated due to patient's past medical history. The patient's deep vein thrombosis risk score was calculated as follows: Total Score: 0. This patient was found to be at low risk for a deep vein thrombosis by using the Well[facility] assessment criteria. The patient's pulmonary embolism risk score was calculated as follows: Total Score: 0-2 points. This patient was found to be at low risk for a pulmonary embolism by using the Well[facility] assessment criteria. AVE Risk Score: 1 - Three or more CAD risk factors, 1- Known CAD, 1 - Recent [<24hrs] Severe Angina, 1 - Elevated Cardiac Markers, TOTAL SCORE = 4. 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 Test interpretation: by ED physician or midlevel provider: ECG, plain radiologic studies. 05/19 13:32 Order name: Basic Metabolic Panel; Complete Time: 14:29 [facility] 05/19 13:32 Order name: CBC with Diff; Complete Time: 14:13 [facility] 05/19 13:32 Order name: LFT's; Complete Time: 14:29 [facility] 05/19 13:32 Order name: Magnesium; Complete Time: 14:29 [facility] 05/19 13:32 Order name: NT PRO-BNP; Complete Time: 14:29 [facility] 05/19 13:32 Order name: PT-INR; Complete Time: 14:13 [facility] 05/19 13:32 Order name: Troponin (emerg Dept Use Only); Complete Time: 14:29 [facility] 05/19 13:32 Order name: Lipase; Complete Time: 14:29 [facility] 05/19 13:32 Order name: TSH; Complete Time: 14:29 [facility] 05/19 14:09 Order name: CREATININE WHOLE BLOOD; Complete Time: 14:13 [facility] 05/19 14:33 Order name: Alcohol Level; Complete Time: 17:04 [facility] 05/19 14:34 Order name: [place]; Complete Time: 17:04 [facility] 05/19 14:52 Order name: Urine Dipstick--Ancillary (enter results); Complete Time: 17:04 05/19 20:55 Order name: Troponin I [facility] 05/19 13:32 Order name: XRAY Chest (1 view); Complete Time: 17:04 [facility] 05/19 13:32 Order name: CT Aorta for Dissection; Complete Time: 14:54 [facility] 05/19 18:33 Order name: CT Head Brain wo Cont [facility] 05/19 19:28 Order name: CT; Complete Time: 19:37 [facility] 05/20 03:01 Order name: Troponin I [facility] 05/20 05:29 Order name: CBC with Automated Diff [facility] 05/20 05:30 Order name: Protime (+INR) [facility] 05/20 05:44 Order name: Comprehensive Metabolic Panel [facility] 05/20 05:44 Order name: T4 Free [facility] 05/20 05:44 Order name: Thyroid Stimulating Hormone [facility] 05/20 06:02 Order name: Manual Differential [facility] 05/20 08:06 Order name: US [facility] 05/19 13:32 Order name: EKG; Complete Time: 13:33 [facility] 05/19 13:32 Order name: Cardiac monitoring; Complete Time: 14:25 [facility] 05/19 13:32 Order name: EKG - Nurse/Tech; Complete Time: 14:25 [facility] 05/19 13:32 Order name: IV Saline Lock; Complete Time: 14:25 [facility] 05/19 13:32 Order name: Labs collected and sent; Complete Time: 14:25 [facility] 05/19 13:32 Order name: O2 Per Protocol; Complete Time: 14:25 [facility] 05/19 13:32 Order name: O2 Sat Monitoring; Complete Time: 14:25 [facility] 05/19 13:32 Order name: Urine Dipstick-Ancillary (obtain specimen); Complete Time: 17:06 [facility] 05/19 14:32 Order name: IV Saline Lock - Large Bore; Complete Time: 15:49 [facility] 05/19 19:28 Order name: EKG; Complete Time: 19:29 [facility] 05/19 19:28 Order name: EKG - Nurse/Tech; Complete Time: 19:34 [facility] EC:42 Rate is 123 beats/min. Rhythm is irregularly irregular. QRS [place] is Normal. [place] interval berta is normal. QRS interval is normal. QT interval is normal. No Q waves. T waves are Normal. No ST changes noted. Clinical impression: Atrial Fibrillation. Interpreted by me. Reviewed by me. 19:44 Rate is 103 beats/min. Rhythm is regular. QRS [place] is Normal. [place] interval is normal. berta QRS interval is normal. QT interval is normal. No Q waves. T waves are Normal. Clinical impression: Abnormal EKG without significant change. Interpreted by me. Reviewed by me. Administered Medications: 13:45 Drug: ProTONIX 40 mg Route: IVP; Site: right forearm; bp 17:03 Follow up: Response: Nausea is decreased bp 13:50 Drug: Dilaudid 1 mg Route: IVP; Site: right forearm; jl7 17:02 Follow up: Response: No adverse reaction bp 13:50 Drug: Zofran (Ondansetron) 4 mg Route: IVP; Site: right forearm; jl7 17:03 Follow up: Response: No adverse reaction bp 13:55 Drug: Lopressor 5 mg Route: IVP; Site: right forearm; jl7 17:03 Follow up: Response: No adverse reaction bp 14:02 Drug: Lopressor 5 mg Route: IVP; Site: right forearm; jl7 17:03 Follow up: Response: No adverse reaction bp 14:31 Drug: Lopressor 5 mg Route: IVP; Site: right forearm; ls4 17:02 Follow up: Response: No adverse reaction bp 14:31 Drug: Dilaudid 1 mg Route: IVP; Site: right forearm; ls4 17:01 Follow up: Response: Pain is decreased bp 14:31 Drug: Zofran (Ondansetron) 4 mg Route: IVP; Site: right forearm; ls4 17:02 Follow up: Response: Nausea is decreased bp 15:05 Drug: hydrALAZINE 10 mg Route: IV; Rate: per protocol; Site: right forearm; ls4 15:10 Follow up: Response: No adverse reaction; IV Status: Completed infusion; IV Intake: ls4 0.5ml 15:05 Drug: hydrALAZINE 10 mg Route: PO; ls4 15:47 Follow up: Response: No change in condition; Pain is unchanged, physician notified ls4 15:49 Drug: Lovenox 70 mg Route: Sub-Q; Site: right lower abdomen; ls4 17:02 Follow up: Response: No adverse reaction bp 16:58 Drug: hydrALAZINE 10 mg Route: IV; Rate: 10 bolus; Site: right forearm; bp 17:02 Follow up: IV Status: Completed infusion bp 16:58 Drug: Ativan 1 mg Route: IVP; Site: right forearm; bp 17:01 Follow up: Response: Marked relief of symptoms bp 18:20 Drug: niCARdipine (25mg/250ml) 5 mg/hr Route: IV; Rate: calculated rate; Site: right bp forearm; 20:00 Follow up: Response: No adverse reaction; IV Status: Infusion continued upon admission jd3 22:53 Follow up: Response: No adverse reaction; IV Status: Order to discontinue infusion jd3 19:45 Drug: Aspirin 162 mg Route: PO; jd3 20:00 Follow up: Response: No adverse reaction jd3 19:45 Drug: Lopressor (metoprolol TARTRATE) 50 mg Route: PO; jd3 20:00 Follow up: Response: No adverse reaction jd3 19:47 Drug: Rocephin 1 grams Route: IV; Rate: per protocol; Site: right hand; jd3 20:00 Follow up: Response: No adverse reaction; IV Status: Completed infusion; IV Intake: [id number] Disposition: 05/19/20 14:45 Hospitalization ordered by Isaiah Alvarenga for Inpatient Admission. Preliminary diagnosis are Abdominal tenderness, Atrial fibrillation and flutter - with rvr, Chest pain, unspecified, Essential (primary) hypertension, Vomiting, Acute sinusitis. - Bed requested for [facility] ER HOLD. - Status is Inpatient Admission. ss - Condition is Fair. - Problem is new. - Symptoms have improved. Signatures: Dispatcher [employer] EDMS Michael Estrada MD MD cha Calderon, Audri, RN DIANA aa5 Riya Bryan RN RN ss Attema, Gilberto, PEACE OFFICER-C PEACE OFFICER-Cla1 Elaine Paniagua, RN RN jl7 Preston Hardy RN RN jd3 Dano Dawson RN RN bp Botello, Elizabeth eb Stewart, Lisa, RN RN ls4 Corrections: (The following items were deleted from the chart) 14:45 14:45 Hospitalization Ordered by Isaiah Alvarenga MD for Inpatient Admission. berta Preliminary diagnosis is Abdominal tenderness; Atrial fibrillation and flutter - with rvr; Chest pain, unspecified; Essential (primary) hypertension. Bed requested for Telemetry/MedSurg (Inpatient). Status is Inpatient Admission. Condition is Fair. Problem is new. Symptoms have improved. berta 16:33 14:45 05/19/2020 14:45 Hospitalization Ordered by Isaiah Alvarenga MD for Inpatient eb Admission. Preliminary diagnosis is Abdominal tenderness; Atrial fibrillation and flutter - with rvr; Chest pain, unspecified; Essential (primary) hypertension; Vomiting. Bed requested for Telemetry/MedSurg (Inpatient). Status is Inpatient Admission. Condition is Fair. Problem is new. Symptoms have improved. berta 18:28 16:33 05/19/2020 14:45 Hospitalization Ordered by Isaiah Alvarenga MD for Inpatient aa5 Admission. Preliminary diagnosis is Abdominal tenderness; Atrial fibrillation and flutter - with rvr; Chest pain, unspecified; Essential (primary) hypertension; Vomiting. Bed requested for Telemetry/MedSurg (Inpatient). Status is Inpatient Admission. Condition is Fair. Problem is new. Symptoms have improved. eb 19:46 18:28 05/19/2020 14:45 Hospitalization Ordered by Isaiah Alvarenga MD for Inpatient berta Admission. Preliminary diagnosis is Abdominal tenderness; Atrial fibrillation and flutter - with rvr; Chest pain, unspecified; Essential (primary) hypertension; Vomiting. Bed requested for [facility] ER HOLD. Status is Inpatient Admission. Condition is Fair. Problem is new. Symptoms have improved. aa5 05/20 08:10 05/19 19:46 05/19/2020 14:45 Hospitalization Ordered by Isaiah Alvarenga MD for Inpatient Admission. Preliminary diagnosis is Abdominal tenderness; Atrial fibrillation and flutter - with rvr; Chest pain, unspecified; Essential (primary) hypertension; Vomiting; Acute sinusitis. Bed requested for [facility] ER HOLD. Status is Inpatient Admission. Condition is Fair. Problem is new. Symptoms have improved. berta
--- NOTE | 2020-05-19 14:45 | ER ---
Nurse's Notes [facility] Name: Blayne Macias Age: 59 yrs Sex: Male : 1960 Arrival Date: 05/19/2020 Time: 13:11 Bed 10 Private MD: Diagnosis: Abdominal tenderness;Atrial fibrillation and flutter-with rvr;Chest pain, unspecified;Essential (primary) hypertension;Vomiting;Acute sinusitis Presentation: 05/19 13:20 Chief complaint: Chief complaint: EMS states: ABDOMINAL PAIN AND VOMITING. Coronavirus bp screen: Proceed with normal triage. Patient was placed back in the lobby due to no available rooms at this time. Patient was instructed to always wear their mask and to isolate themselves as much as possible from others in the lobby. Ebola Screen: No symptoms or risks identified at this time. Initial Sepsis Screen: Does the patient meet any 2 criteria? No. Patient's initial sepsis screen is negative. Does the patient have a suspected source of infection?. Risk Assessment: Do you want to hurt yourself or someone else? Patient reports no desire to harm self or others. Onset of symptoms is unknown. 13:20 Acuity: SENTHIL 3 bp 13:20 Method Of Arrival: EMS: [facility] bp Triage Assessment: 13:17 General: Appears in no apparent distress. uncomfortable, Behavior is cooperative, bp appropriate for age, anxious. Pain: Complains of pain in abdomen. EENT: No deficits noted. Neuro: No deficits noted. Cardiovascular: Rhythm is sinus rhythm. Respiratory: No deficits noted. GI: No signs and/or symptoms were reported involving the gastrointestinal system. : No signs and/or symptoms were reported regarding the genitourinary system. Derm: No deficits noted. Musculoskeletal: No deficits noted. Historical: - Allergies: 13:17 Codeine; bp 13:17 PENICILLINS; bp - Home Meds: 13:17 aspirin 81 mg Oral chew 1 tab once daily [Active]; amiodarone 200 mg Oral tab 0.5 tab 2 bp times per day [Active]; amitriptyline 50 mg Oral tab 1 tab once daily [Active]; amlodipine 10 mg tab 1 tab once daily [Active]; atorvastatin 20 mg Oral tab 1 tab once daily [Active]; carvedilol 25 mg Oral tab 0.5 tab 2 times per day [Active]; carvedilol 25 mg Oral tab 1 tab 2 times per day [Active]; citalopram 20 mg tab 1 tab once daily [Active]; clopidogrel 75 mg Oral tab 1 tab once daily [Active]; hydrochlorothiazide 12.5 mg Oral tab 1 tab once daily [Active]; isosorbide mononitrate 60 mg Oral Tb24 [Active]; potassium chloride 20 mEq Oral TbER 1 tab once daily [Active]; isosorbide mononitrate 60 mg Oral Tb24 1 tab once daily [Active]; lithium carbonate 600 mg Oral cap 1 cap nightly [Active]; losartan 25 mg Oral tab 1 tab once daily [Active]; mometasone-formoterol inhalation [Active]; ranolazine 1000 mg Oral [Active]; simvastatin 40 mg Oral tab 1 tab once daily [Active]; nitroglycerin 0.4 mg SL subl 1 tab [Active]; Norvasc 10 mg Oral tab once daily [Active]; - PMHx: 13:17 "electrical stimulator"; Atrial Fib; Back pain; Bipolar disorder; CAD; CHF; chronic bp back pain; Cirrhosis; COPD; Hepatitis; High Cholesterol; Hypertension; Pneumonia; - Immunization history:: Adult Immunizations up to date. - Social history:: Smoking status: unknown. - Family history:: not pertinent. Screenin:17 Abuse screen: Denies threats or abuse. Denies injuries from another. Nutritional bp screening: No deficits noted. Difficulty chewing/swallowing?. Tuberculosis screening: No symptoms or risk factors identified. Fall Risk None identified. Assessment: 13:17 General: SEE TRIAGE NOTE. bp 15:00 Reassessment: ADMIT INITIATED. PT ANXIOUS, UNABLE TO SIT STILL IN BED, VOMITING BILE. bp 17:00 Reassessment: ADMIT COMPLETE, BED ASSIGNED, TRANSPORT PENDING. bp 17:35 Reassessment: ADMIT COMPLETE, REPORT TO ALEJO OTRIZ. bp 18:15 Reassessment: TRANSPORT ON HOLD FOR PT LETHARGY. HOSPITALIST AT B/S. bp 18:29 Reassessment: Pt upgraded to ICU per Hospitalist, Do All Operator notified. Pending aa5 ICU bed at this time. . 18:34 Reassessment: CT HEAD PENDING. NO ICU BED AVAILABLE OR ANTICIPATED. CARDENE AT 7.5 bp MG/HR. 19:15 General: Appears in no apparent distress. uncomfortable, Behavior is calm, cooperative, jd3 appropriate for age, quiet. Pain: Complains of pain in chest Quality of pain is described as pressure. Neuro: Level of Consciousness is awake, alert, obeys commands, Oriented to person, place, time, situation. Cardiovascular: Reports chest pain, Capillary refill < 3 seconds Patient's skin is warm and dry. Respiratory: Airway is patent Respiratory effort is even, unlabored, Respiratory pattern is regular, symmetrical, Denies cough, shortness of breath. GI: No signs and/or symptoms were reported involving the gastrointestinal system. Abd is soft and non tender X 4 quads. Reports upper abdominal pain. : No signs and/or symptoms were reported regarding the genitourinary system. EENT: No signs and/or symptoms were reported regarding the EENT system. Derm: Skin is intact, Skin is dry, Skin is normal, Skin temperature is warm. Musculoskeletal: Circulation, motion, and sensation intact. Range of motion: intact in all extremities. 20:02 Reassessment: Patient and/or family updated on plan of care and expected duration. Pain jd3 level reassessed. Patient is alert, oriented x 3, equal unlabored respirations, skin warm/dry/pink. charting continued in [facility]. Vital Signs: 13:20 BP 200 / 100; Pulse 70; Resp 17; Temp 97.3; Pulse Ox 98% ; Weight 68.04 kg; bp 13:46 BP 203 / 115; Pulse 121; Resp 19; Pulse Ox 99% ; Pain 7/10; ls4 14:00 BP 198 / 124; Pulse 103; Resp 17; Pulse Ox 97% ; ls4 14:53 BP 205 / 106; Pulse 98; Resp 20; Pulse Ox 99% on R/A; Pain 5/10; ls4 17:01 BP 166 / 84; Pulse 99; Resp 20; Temp 97.5; Pulse Ox 96% ; bp 18:17 BP 201 / 84; Pulse 99; Resp 25; Pulse Ox 98% ; bp 18:35 BP 224 / 108; Pulse 95; Resp 23; Pulse Ox 97% on R/A; bp 20:01 BP 144 / 84; Pulse 103; Resp 20 S; Pulse Ox 96% on R/A; jd3 ED Course: 13:11 Patient arrived in ED. bp 13:12 Michael Estrada MD is Attending Physician. berta 13:17 Arm band placed on. bp 13:23 Triage completed. bp 13:23 Dano Dawson RN is Primary Nurse. bp 13:38 Patient has correct armband on for positive identification. Placed in gown. Bed in low bp position. Call light in reach. Side rails up X2. 13:45 Initial lab(s) drawn, by me, sent to lab. EKG done, by ED staff, reviewed by Michael Estrada MD. Inserted saline lock: 20 gauge in right forearm, using aseptic technique. Blood collected. 14:13 CT Aorta for Dissection In Process Unspecified. EDMS 14:34 XRAY Chest (1 view) In Process Unspecified. EDMS 14:44 Isaiah Alvarenga MD is Hospitalizing Provider. berta 15:49 Inserted saline lock: 22 gauge in right hand, using aseptic technique. ls4 17:35 No provider procedures requiring assistance completed. Patient admitted, IV remains in bp place. 05/20 07:13 Primary Nurse role handed off by Dano Dawson, DIANA sv Administered Medications: 05/19 13:45 Drug: ProTONIX 40 mg Route: IVP; Site: right forearm; bp 17:03 Follow up: Response: Nausea is decreased bp 13:50 Drug: Dilaudid 1 mg Route: IVP; Site: right forearm; jl7 17:02 Follow up: Response: No adverse reaction bp 13:50 Drug: Zofran (Ondansetron) 4 mg Route: IVP; Site: right forearm; jl7 17:03 Follow up: Response: No adverse reaction bp 13:55 Drug: Lopressor 5 mg Route: IVP; Site: right forearm; jl7 17:03 Follow up: Response: No adverse reaction bp 14:02 Drug: Lopressor 5 mg Route: IVP; Site: right forearm; jl7 17:03 Follow up: Response: No adverse reaction bp 14:31 Drug: Lopressor 5 mg Route: IVP; Site: right forearm; ls4 17:02 Follow up: Response: No adverse reaction bp 14:31 Drug: Dilaudid 1 mg Route: IVP; Site: right forearm; ls4 17:01 Follow up: Response: Pain is decreased bp 14:31 Drug: Zofran (Ondansetron) 4 mg Route: IVP; Site: right forearm; ls4 17:02 Follow up: Response: Nausea is decreased bp 15:05 Drug: hydrALAZINE 10 mg Route: IV; Rate: per protocol; Site: right forearm; ls4 15:10 Follow up: Response: No adverse reaction; IV Status: Completed infusion; IV Intake: ls4 0.5ml 15:05 Drug: hydrALAZINE 10 mg Route: PO; ls4 15:47 Follow up: Response: No change in condition; Pain is unchanged, physician notified ls4 15:49 Drug: Lovenox 70 mg Route: Sub-Q; Site: right lower abdomen; ls4 17:02 Follow up: Response: No adverse reaction bp 16:58 Drug: hydrALAZINE 10 mg Route: IV; Rate: 10 bolus; Site: right forearm; bp 17:02 Follow up: IV Status: Completed infusion bp 16:58 Drug: Ativan 1 mg Route: IVP; Site: right forearm; bp 17:01 Follow up: Response: Marked relief of symptoms bp 18:20 Drug: niCARdipine (25mg/250ml) 5 mg/hr Route: IV; Rate: calculated rate; Site: right bp forearm; 20:00 Follow up: Response: No adverse reaction; IV Status: Infusion continued upon admission jd3 22:53 Follow up: Response: No adverse reaction; IV Status: Order to discontinue infusion jd3 19:45 Drug: Aspirin 162 mg Route: PO; jd3 20:00 Follow up: Response: No adverse reaction jd3 19:45 Drug: Lopressor (metoprolol TARTRATE) 50 mg Route: PO; jd3 20:00 Follow up: Response: No adverse reaction jd3 19:47 Drug: Rocephin 1 grams Route: IV; Rate: per protocol; Site: right hand; jd3 20:00 Follow up: Response: No adverse reaction; IV Status: Completed infusion; IV Intake: [id number] Intake: 15:10 IV: 1ml; Total: 1ml. ls4 20:00 IV: 10ml; Total: 11ml. jd3 Outcome: 14:45 Decision to Hospitalize by Provider. berta 17:36 Admitted to Med/surg accompanied by tech, via wheelchair, room 205, with chart, Report bp called to ALEJO ORTIZ 20:02 Admitted to ER Hold. Please see [facility] for further documentation. jd3 20:02 Condition: stable 05/20 08:10 Patient left the ED. ss Signatures: Dispatcher [employer] EDMS Key Mitchell, RN RN Michael López MD MD cha Calderon, Audri RN RN aa5 Riya Bryan RN RN ss Elaine Paniagua RN RN jl7 Preston Hardy RN RN jd3 Dano Dawson RN RN Cha Mccarthy RN RN ls4 Corrections: (The following items were deleted from the chart) 05/19 14:46 13:20 BP 200 / 100; Pulse 70bpm; Resp 17bpm; Pulse Ox 98%; Temp 97.3F; bp bp 17:27 13:20 Chief complaint: bp bp
[2020-05-19 14:55] LABS: Urine Blood TRACE (NEG); Urine Glucose TRACE (NEG); Urine Protein 1+ (NEG)
--- NOTE | 2020-05-19 15:06 | RAD REPORT ---
EXAM DESCRIPTION: Jose Single View05/19/2020 2:34 pm CLINICAL HISTORY: Chest pain COMPARISON: March 2020 FINDINGS: The lungs appear clear of acute infiltrate. The heart is normal size. Postsurgical change s the chest IMPRESSION: No acute abnormalities displayed
[2020-05-19] MEDS ORDERED: HYDRALAZINE HCL 20 MG/ML VIAL ONE ×2 (15:08→17:03)
[2020-05-19] MEDS ORDERED: HYDRALAZINE HCL 10 MG TABLET ONE (15:09)
--- NOTE | 2020-05-19 15:26 | P.HP ---
Certification for Inpatient Patient admitted to: Observation With expected LOS: <2 Midnights Patient will require the following post-hospital care: None Practitioner: I am a practitioner with admitting privileges, knowledge of patient current condition, hospital course, and medical plan of care. Services: Services provided to patient in accordance with Admission requirements found in Title 42 Section 412.3 of the Code of Federal Regulations <Gilberto Nevarez - Last Filed: 05/19/20 15:21> Patient History Date of Service: 05/19/20 Reason for admission: Chest pain, malignant hypertension History of Present Illness: 59-year-old male with history of hypertension, atrial fibrillation, back pain, bipolar disorder, CAD, CHF, cirrhosis, hepatitis-C, pneumonia presents the emergency department for chest pain, abdominal pain, back pain. Patient reports that his symptoms started this morning and he has had symptoms like this in the past. Patient reports that feels like somebody is standing on his chest. Patient was recently admitted and had a thorough cardiac evaluation with heart catheterization and echocardiogram. Cardiology recommended medical management at that time. During his evaluation in the emergency department patient was found to have AFib with a rapid ventricular response. Patient does have a history of atrial fibrillation. Patient also had blood pressure around 211/110. Patient's troponin was mildly elevated at 0.05. ED provider wishes to admit patient for further evaluation and management. When I saw the patient in the emergency department he was awake, alert, oriented x3, in no distress. Patient reports pain and chest that is described as pressure-like. Patient's blood pressure at the time of evaluation was approximately 200/100. Patient atrial fibrillation but is now more rate controlled around a rate of around 80. Will admit patient for further evaluation management. Will also consult cardiology. Patient reports last heart catheterization and echocardiogram were approximately 2 months ago. - Past Medical/Surgical History Diabetic: No -: Chronic back pain, Pain management-Dr. Connolly -: HTN -: CAD, CABG times 2 vessels in December 2015 -: COPD -: Exposure to asbestosis -: Bipolar disorder -: Hyperlipidemia -: Severe sleep apnea -: Chronic pain syndrome -: CHF -: afib -: pneumonia -: Right Leg surgery -: Back surgery -: Cholecystectomy -: Cardiac catheterization -: CABG- Double bypass 12/2015 -: Neck Surgery Psychosocial/ Personal History: Single, Children-1, Work-Disabled due to back. - Family History Mother -: Cancer Father -: Heart disease, Cancer - Social History Smoking Status: Heavy Tobacco smoker (>10 cigarettes/day) Alcohol use: Yes CD- Drugs: No Caffeine use: Yes Place of Residence: Home <Gilberto Nevarez - Last Filed: 05/19/20 15:21> Date of Service: 05/19/20 <Isaiah Alvarenga - Last Filed: 05/19/20 18:58> Allergies Penicillins Allergy (Intermediate, Verified 04/15/19 21:16) Hives/Rash codeine [From Tylenol-Codeine] Allergy (Verified 04/15/19 21:16) Itching Home Medications: Amiodarone HCl 100 mg PO BEDTIME 03/29/20 Amlodipine [Norvasc*] 10 mg PO DAILY 03/29/20 Aspirin 81 mg PO DAILY 03/29/20 Atorvastatin Calcium [Lipitor*] 20 mg PO BEDTIME 03/29/20 Citalopram [Celexa*] 20 mg PO DAILY 03/29/20 Citalopram [Celexa*] 40 mg PO DAILY 03/29/20 Clopidogrel Bisulfate [Plavix*] 75 mg PO DAILY 03/29/20 Cyclobenzaprine [Flexeril*] 10 mg PO TID PRN 03/29/20 Hydrocodone 10/APAP 325 [[place] 10/325*] 1 tab PO Q8HP PRN 03/29/20 Isosorbide Mononitrate [Ismo] 2 tab PO DAILY 03/29/20 [place] Carbonate [Lithotabs *] 600 mg PO BEDTIME 03/29/20 Losartan Potassium [Cozaar*] 50 mg PO BID 03/29/20 Mometasone/Formoterol [Dulera 100 Mcg-5 Mcg Inhaler] 1 puff IH BID 03/29/20 Nitroglycerin [Nitrostat*] 0.4 mg SL [id number] PRN 03/29/20 Pantoprazole [Protonix Tab*] 40 mg PO DAILY 03/29/20 Potassium Chloride [Klor-Con] 20 meq PO DAILY 03/29/20 Promethazine Tab [Phenergan*] 12.5 mg PO Q6HP PRN 03/29/20 Amiodarone HCl [Cordarone*] 100 mg PO BEDTIME tab 04/03/20 Cefuroxime Axetil [Cefuroxime] 500 mg PO BID #6 tab 04/03/20 Clopidogrel Bisulfate [Plavix*] 75 mg PO DAILY tablet 04/03/20 Hydralazine [Apresoline*] 50 mg PO BID #60 tab 04/03/20 Lidocaine 4% Patch [Lidoderm 5% Patch*] 1 patch TOP DAILY #10 patch 04/03/20 [place] Carbonate [Lithotabs *] 600 mg PO BEDTIME tab 04/03/20 Metoprolol Tartrate [Lopressor*] 50 mg PO BID #60 tab 04/03/20 Review of Systems 10-point ROS is otherwise unremarkable Cardiovascular: Chest Pain, Palpitations Gastrointestinal: Nausea, Abdominal Pain <Gilberto Nevarez - Last Filed: 05/19/20 15:21> Physical Examination - Physical Exam General: Alert, In no apparent distress HEENT: Atraumatic, PERRLA, Mucous membr. moist/pink, EOMI, Sclerae nonicteric Neck: Supple, 2+ carotid pulse no bruit, No LAD, Without JVD or thyroid abnormality Respiratory: Clear to auscultation bilaterally, Normal air movement Cardiovascular: Regular rate/rhythm, Normal S1 S2 Gastrointestinal: Normal bowel sounds, No tenderness Musculoskeletal: No tenderness Integumentary: No rashes Neurological: Normal gait, Normal speech, Normal strength at 5/5 x4 extr, Normal tone, Normal affect - Studies Laboratory Data (last 24 hrs) 05/19/20 13:50: PT 12.4, INR 1.05 05/19/20 13:50: WBC 10.7, Hgb 16.0, Hct 47.1, Plt Count 222 05/19/20 13:50: Sodium 138, Potassium 3.9, BUN 18, Creatinine 1.10, Glucose 114 H, Magnesium 2.6 H, Total Bilirubin 0.9, AST 151 H, ALT 115 H, Alkaline Phosphatase 132 H, Lipase 214 <Gilberto Nevarez - Last Filed: 05/19/20 15:21> - Studies Laboratory Data (last 24 hrs) 05/19/20 13:50: PT 12.4, INR 1.05 05/19/20 13:50: WBC 10.7, Hgb 16.0, Hct 47.1, Plt Count 222 05/19/20 13:50: Sodium 138, Potassium 3.9, BUN 18, Creatinine 1.10, Glucose 114 H, Magnesium 2.6 H, Total Bilirubin 0.9, AST 151 H, ALT 115 H, Alkaline Phosphatase 132 H, Lipase 214 <LyleEranSiaiah K - Last Filed: 05/19/20 18:58> Assessment and Plan - Plan Assessment Chest pain with mildly elevated troponin likely secondary to malignant hypertension with history hypertension Atrial fibrillation with rapid ventricular response not on chronic anticoagulation therapy Chronic diastolic heart failure without exacerbation Coronary artery disease 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 Patient to remain on telemetry throughout this hospitalization. Cardiology has been consulted on this patient. Have continue patient's home medications for hypertension. Have also provided p.r.n. medications with parameters. Believe that blood pressure is also related to pain and chronic pain, I have provided pain medications as needed. Atrial fibrillation with rapid ventricular response not on chronic anticoagulation therapy: Continue patient's home medications and beta-blockers. Provide p.r.n. beta-jaime medication. Appreciate further input from cardiology. Patient is unsure why he is not taking a blood thinner. Could be due to cirrhosis. Chronic diastolic heart failure without exacerbation: Continue patient's home medications. Stable at this time. Coronary artery disease: Continue patient's aspirin Plavix. 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 Some abnormality on CT scan, will obtain ultrasound of the liver. COPD: Continue patient's home medication. Hyperlipidemia: Continue patient's home medication. Discharge Plan: Home Plan to discharge in: 24 Hours - Advance Directives Does patient have a Living Will: No Does patient have a Durable POA for Healthcare: Yes - Code Status/Comfort Care Code Status Assessed: Yes (Patient is full code) Time Spent Managing Pts Care (In Minutes): 55 <Gilberto Nevarez - Last Filed: 05/19/20 15:21> Physician Review Additional Text: patient admitted with uncontrolled AFib severe hypertension refractory to conventional treatment he is currently on a Cardizem drip currently has cirrhosis of the liver has had quite a bit of pain medications white count is normal abnormal liver function tests chest x-rays clear I have added spironolactone check ammonia level patient was not anti coagulated due to his liver disorder Consul cardiology thyroid function tests is normal <Isaiah Alvarenga - Last Filed: 05/19/20 18:58>
[2020-05-19] MEDS ORDERED: ENOXAPARIN 80 MG/0.8 ML SQ ONE (15:50)
[2020-05-19] MEDS ORDERED: LORazepam 2 MG/ML VIAL ONE (17:02)
[2020-05-19] MEDS ORDERED: PANTOPRAZOLE 40 MG INJ ONE (17:03)
[2020-05-19] MEDS ORDERED: Nicardipine/NS 0 MG/0 ML KIT IV ONE (18:37)
--- NOTE | 2020-05-19 19:28 | RAD REPORT ---
EXAM DESCRIPTION: CT - Head Brain Wo Cont - 05/19/2020 7:18 pm CLINICAL HISTORY: Alteration of awareness/confusion COMPARISON: 2019 TECHNIQUE: Computed axial tomography of the head was obtained. IV contrast was not requested. All CT scans are performed using dose optimization technique as appropriate and may include automated exposure control or mA/KV adjustment according to patient size. FINDINGS: An intracranial bleed is not seen . The ventricles are normal in caliber. No extra-axial fluid collection is noted. Mild low-density areas within periventricular, deep and subcortical white matter likely represent is chemic changes secondary to small vessel disease. The right maxillary sinus is completely opacified compatible with chronic sinusitis IMPRESSION: No acute intracranial abnormality is seen. If patient's symptoms persist MRI of the bra in would be recommended.
[2020-05-19] MEDS: carvediloL 12.5 MG TAB PO SCH (19:48)
[2020-05-19] MEDS ORDERED: Nicardipine in Saline, Iso-Osm 20 MG/200 ML IV.SOLN. IV PRN (19:48)
[2020-05-19] MEDS ORDERED: METOPROLOL TARTRATE 5 MG/5 ML INJ IV PRN (19:48)
[2020-05-19] MEDS: SPIRONOLACTONE 25 MG TABLET PO SCH ×2 (19:48→21:00)
[2020-05-19] MEDS ORDERED: HYDROCODONE/APAP 10/325 TAB PO PRN (19:48)
[2020-05-19] MEDS ORDERED: ASPIRIN 81 MG CHEWABLE TABLET ONE (19:58)
[2020-05-19] MEDS ORDERED: METOPROLOL TAR 50 MG TAB ONE (19:58)
[2020-05-19] MEDS ORDERED: CEFTRIAXONE/SWI 1gm 1 GM/10 ML SYR ONE (19:58)
[2020-05-19] MEDS ORDERED: carvediloL 6.25 MG TAB ONE (20:58)
[2020-05-19] MEDS: DULERA 100/5 (MOMETASONE/FORMOTEROL) INHALER IH SCH (21:00)
[2020-05-19] MEDS: ATORVASTATIN 20 MG TAB PO SCH (21:00)
[2020-05-19] MEDS: LITHIUM CARBONATE 300 MG TAB PO SCH (21:00)
[2020-05-19] MEDS ORDERED: LITHIUM CARBONATE 300 MG TAB ONE ×2 (21:22→21:41)
[2020-05-19] MEDS ORDERED: ATORVASTATIN 20 MG TAB ONE ×2 (21:23→21:27)
[2020-05-19] MEDS: HYDROMORPHONE HCL 1 MG/ML INJ IV PRN (21:41)
[2020-05-19 22:00] VITALS: BMI 24.2
[2020-05-19] MEDS ORDERED: Nicardipine/NS 25 MG/250 ML KIT IV ONE (22:38)
[2020-05-20] MEDS ORDERED: Nicardipine/NS 25 MG/250 ML KIT IV ONE (01:15)
[2020-05-20] MEDS: HYDROMORPHONE HCL 1 MG/ML INJ IV PRN ×5 (03:51→20:57)
[2020-05-20] MEDS ORDERED: HYDROMORPHONE HCL 1 MG/ML INJ ONE ×3 (03:56→12:42)
[2020-05-20 05:27] LABS: Absolute Lymphocytes (CBC) 1.3 K/uL (0.7-4.9); Basophils % 0.6 % (0-1.3); Hematocrit 42.7 % (39.6-49.0); Lymphocytes % 8.8 % (15.3-44.8); MPV 10.9 fL (7.6-11.3)
[2020-05-20 05:28] LABS: Protime INR 1.14
[2020-05-20 05:43] LABS: Albumin 3.8 g/dL (3.4-5.0); Bilirubin Total 0.7 mg/dL (0.2-1.0); Potassium 4.3 mmol/L (3.5-5.1); Protein, Total 8.9 g/dL (6.4-8.2); Thyroid Stimulating Hormone 1.23 uIU/mL (0.360-3.740)
--- NOTE | 2020-05-20 05:58 | EKG ---
Test Date: 2020-05-19 Test Time: 13:32:08 Bibliographic Services Specialist: ASHLEY MEASUREMENT RESULTS: Intervals: Rate: 123 ND: QRSD: 98 QT: 344 QTc: 492 [place]: P: ND: QRS: 45 T: 118 INTERPRETIVE STATEMENTS: Atrial fibrillation with rapid ventricular response with premature ventricular or aberrantly conducted complexes Septal infarct, age undetermined T wave abnormality, consider lateral ischemia or digitalis effect Abnormal ECG Compared to ECG 04/01/2020 05:33:11 Ventricular premature complex(es) now present T-wave abnormality now present Possible ischemia now present Sinus rhythm no longer present Myocardial infarct finding still present Electronically Signed On 05-20-20 05:56:57 CDT by Ghulam Berrios
[2020-05-20] MEDS: carvediloL 12.5 MG TAB PO SCH ×2 (06:00→16:33)
[2020-05-20 06:02] LABS: Blood Morphology Comment NOT SEEN (NOT SEEN); Platelet Estimate ADEQ
[2020-05-20] MEDS ORDERED: carvediloL 6.25 MG TAB ONE (06:20)
[2020-05-20] MEDS ORDERED: NICARDIPINE HCL 25 MG in NA CHLORIDE 0.9% 240 ML IV PRN (07:17)
--- NOTE | 2020-05-20 08:05 | RAD REPORT ---
EXAM DESCRIPTION: US - Liver Only - 05/20/2020 7:09 am CLINICAL HISTORY: Abnormal CT scan COMPARISON: Angio Aorta For Dissection dated 05/19/2020 TECHNIQUE: Sonographic evaluation of the right upper quadrant was performed as a dedicated liver ult rasound study. FINDINGS: Liver is prominent in size measuring 19 cm maximum dimension. No capsule nodularity. Liver parenchyma shows normal echogenicity. No focal lesion identified. Specifically, no abnormality seen in the medial segment left lobe. The CT finding is believed to be geographic perfusion normal variant . No portal vein abnormality. No capsular nodule contour. IMPRESSION: No focal liver lesion identified. The CT finding is believed to be a normal variant perf usion differential.
[2020-05-20] MEDS: ASPIRIN EC 81 MG TAB PO SCH (08:17)
[2020-05-20] MEDS: AMLODIPINE 10 MG TAB PO SCH (08:17)
[2020-05-20] MEDS: ENOXAPARIN 40 MG/0.4 ML SQ SCH (08:17)
[2020-05-20] MEDS: CLOPIDOGREL 75 MG TABLET PO SCH (08:18)
[2020-05-20] MEDS: SPIRONOLACTONE 25 MG TABLET PO SCH ×2 (08:18→21:02)
[2020-05-20] MEDS: ISOSORBIDE MONO SR 60 MG TAB PO SCH (08:18)
[2020-05-20] MEDS: AMIODARONE HCL 200 MG TAB PO SCH (08:18)
[2020-05-20] MEDS: DULERA 100/5 (MOMETASONE/FORMOTEROL) INHALER IH SCH ×2 (08:20→21:04)
[2020-05-20] MEDS: hydroCHLOROthiazide 12.5 MG CAP PO SCH (08:21)
[2020-05-20] MEDS ORDERED: AMIODARONE HCL 200 MG TAB ONE (08:25)
[2020-05-20] MEDS ORDERED: CLOPIDOGREL 75 MG TABLET ONE ×2 (08:25→08:37)
[2020-05-20] MEDS ORDERED: ASPIRIN EC 81 MG TAB PO ONE (08:26)
[2020-05-20] MEDS ORDERED: AMLODIPINE 10 MG TAB ONE (08:26)
[2020-05-20] MEDS ORDERED: ENOXAPARIN 40 MG/0.4 ML SQ ONE (08:26)
[2020-05-20] MEDS: ONDANSETRON 4 MG/2 ML VIAL IV PRN ×2 (08:44→22:45)
[2020-05-20] MEDS ORDERED: ONDANSETRON 4 MG/2 ML VIAL ONE (08:52)
[2020-05-20] MEDS ORDERED: LOSARTAN POTASSIUM 50 MG TABLET PO SCH (09:00)
[2020-05-20] MEDS ORDERED: hydroCHLOROthiazide 25 MG TAB PO SCH (09:00)
--- NOTE | 2020-05-20 10:47 | P.PN ---
Subjective Date of Service: 05/20/20 Chief Complaint: Chest pain, malignant hypertension Subjective: Improving Patient still significant abdominal pain <Gilberto Nevarez - Last Filed: 05/20/20 10:58> Date of Service: 05/20/20 <Jac Leal - Last Filed: 05/20/20 15:19> Review of Systems 10-point ROS is otherwise unremarkable Cardiovascular: Chest Pain Gastrointestinal: Nausea, Abdominal Pain <Gilberto Nevarez - Last Filed: 05/20/20 10:58> Physical Examination - Vital Signs Temperature: 98.1 F Blood Pressure: 121/71 Pulse: 83 Respirations: 12 Pulse Ox (%): 94 - Physical Exam General: Alert, In no apparent distress, Oriented x3 HEENT: Atraumatic, Normocephalic, PERRLA, Mucous membr. moist/pink Neck: Supple Respiratory: Clear to auscultation bilaterally, Normal air movement Cardiovascular: No edema, Normal pulses, Regular rate/rhythm Capillary refill: <2 Seconds Gastrointestinal: Normal bowel sounds, No masses, No rebound, Tenderness, Guarding Musculoskeletal: No contractures, No erythema, No tenderness Integumentary: No rashes, No breakdown Neurological: Normal gait, Normal speech - Studies Laboratory Data (last 24 hrs) 05/20/20 05:04: Sodium 141, Potassium 4.3, BUN 24 H, Creatinine 1.18, Glucose 157 H, Total Bilirubin 0.7, AST 67 H, ALT 85 H, Alkaline Phosphatase 95 05/20/20 05:04: PT 13.4 H, INR 1.14 05/20/20 05:04: WBC 14.5 H D, Hgb 14.3, Hct 42.7, Plt Count 242 05/20/20 02:15: Troponin I 0.04 05/19/20 20:31: Troponin I 0.03 05/19/20 13:50: PT 12.4, INR 1.05 05/19/20 13:50: WBC 10.7, Hgb 16.0, Hct 47.1, Plt Count 222 05/19/20 13:50: Sodium 138, Potassium 3.9, BUN 18, Creatinine 1.10, Glucose 114 H, Magnesium 2.6 H, Total Bilirubin 0.9, AST 151 H, ALT 115 H, Alkaline Phosphatase 132 H, Lipase 214 <Gilberto Nevarez - Last Filed: 05/20/20 10:58> - Studies Laboratory Data (last 24 hrs) 05/20/20 05:04: Sodium 141, Potassium 4.3, BUN 24 H, Creatinine 1.18, Glucose 157 H, Total Bilirubin 0.7, AST 67 H, ALT 85 H, Alkaline Phosphatase 95 05/20/20 05:04: PT 13.4 H, INR 1.14 05/20/20 05:04: WBC 14.5 H D, Hgb 14.3, Hct 42.7, Plt Count 242 05/20/20 02:15: Troponin I 0.04 05/19/20 20:31: Troponin I 0.03 <Jac Leal - Last Filed: 05/20/20 15:19> Assessment & Plan Discharge Plan: Home Plan to discharge in: 48 Hours - Code Status/Comfort Care Code Status Assessed: Yes (Patient is full code) Physician Review Additional Text: Assessment Chest pain with mildly elevated troponin likely secondary to malignant hypertension with history hypertension Abdominal Pain Atrial fibrillation with rapid ventricular response not on chronic anticoagulation therapy Chronic diastolic heart failure without exacerbation Coronary artery disease 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 This morning patients BP has significantly improved, cardene drip has been turned off and he is on his home medications. Will likely downgrade patient later today if he continues to do well with this. Appreciate further input from cardiology. Abdominal Pain: Patient had CT dissection protocol without significant acute findings, liver was evaluated secondarily by ultrasound without significant findings. Pt lipase normal, today WBC is elevated at 15, patient C/O worsening abd pain. Will order lactate. Considering possibility of mesenteric ischemia with patients history of vascular disease. Will monitor closely. Repeat lipase, liver function, CBC with morning labs. Consider general surgery consult if patient still having this much pain in the morning. Atrial fibrillation with rapid ventricular response not on chronic anticoagulation therapy: Continue patient's home medications and beta-blockers. Provide p.r.n. beta-jaime medication. Appreciate further input from cardiology. Patient is unsure why he is not taking a blood thinner. Could be due to cirrhosis. Chronic diastolic heart failure without exacerbation: Continue patient's home medications. Stable at this time. Coronary artery disease: Continue patient's aspirin Plavix. 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 Some abnormality on CT scan, will obtain ultrasound of the liver. COPD: Continue patient's home medication. Hyperlipidemia: Continue patient's home medication. Critical Care: No Time Spent Managing Pts Care (In Minutes): 55 <Gilberto Nevarez - Last Filed: 05/20/20 10:58> Physician Review Additional Text: Patient was seen and examined and findings were discussed Agree with the assessment and plan as documented by the NIELS <Jac Leal - Last Filed: 05/20/20 15:19>
[2020-05-20] MEDS ORDERED: NICOTINE 21 MG/PAT TD ONE (11:25)
[2020-05-20] MEDS: NICOTINE 21 MG/PAT TD SCH (11:52)
[2020-05-20] MEDS: ATORVASTATIN 20 MG TAB PO SCH (21:02)
[2020-05-20] MEDS ORDERED: LITHIUM CARBONATE 300 MG TAB ONE (21:27)
[2020-05-20] MEDS: LITHIUM CARBONATE 300 MG TAB PO SCH (21:27)
[2020-05-21] MEDS: HYDROMORPHONE HCL 1 MG/ML INJ IV PRN ×3 (01:16→09:04)
[2020-05-21] MEDS: HYDRALAZINE HCL 20 MG/ML VIAL IV PRN ×4 (01:48→23:06)
[2020-05-21] MEDS ORDERED: METOPROLOL TARTRATE 5 MG/5 ML INJ IV STA (03:52)
[2020-05-21] MEDS: carvediloL 12.5 MG TAB PO SCH (05:28)
[2020-05-21 05:52] LABS: Absolute Lymphocytes (CBC) 3.6 K/uL (0.7-4.9); Basophils % 0.6 % (0-1.3); Hematocrit 43.1 % (39.6-49.0); Lymphocytes % 21.6 % (15.3-44.8); MPV 11.4 fL (7.6-11.3); RBC Red Blood Cell Count 4.62 M/uL (4.33-5.43)
[2020-05-21 06:04] LABS: Protime INR 1.07
[2020-05-21 06:17] LABS: Bilirubin Total 0.6 mg/dL (0.2-1.0); Potassium 4.3 mmol/L (3.5-5.1); Protein, Total 8.8 g/dL (6.4-8.2)
[2020-05-21] MEDS: DULERA 100/5 (MOMETASONE/FORMOTEROL) INHALER IH SCH ×2 (09:04→20:04)
[2020-05-21] MEDS: NICOTINE 21 MG/PAT TD SCH (09:05)
[2020-05-21] MEDS: hydroCHLOROthiazide 12.5 MG CAP PO SCH (09:05)
[2020-05-21] MEDS: ENOXAPARIN 40 MG/0.4 ML SQ SCH (09:05)
[2020-05-21] MEDS: LOSARTAN POTASSIUM 50 MG TABLET PO SCH ×2 (09:05→20:04)
[2020-05-21] MEDS: ASPIRIN EC 81 MG TAB PO SCH (09:05)
[2020-05-21] MEDS: ISOSORBIDE MONO SR 60 MG TAB PO SCH (09:06)
[2020-05-21] MEDS: AMLODIPINE 10 MG TAB PO SCH (09:06)
[2020-05-21] MEDS: AMIODARONE HCL 200 MG TAB PO SCH (09:06)
[2020-05-21] MEDS: SPIRONOLACTONE 25 MG TABLET PO SCH ×2 (09:06→20:04)
[2020-05-21] MEDS: CLOPIDOGREL 75 MG TABLET PO SCH (09:06)
[2020-05-21 09:15] LABS: Platelet Estimate ADEQ; Urine White Blood Cell Casts OK
[2020-05-21 09:16] LABS: Blood Morphology Comment NOT SEEN (NOT SEEN)
[2020-05-21] MEDS ORDERED: NITROGLYCERIN 0.4 MG/TAB SL PRN (10:45)
[2020-05-21] MEDS ORDERED: CYCLOBENZAPRINE 10 MG TAB PO PRN (10:45)
[2020-05-21] MEDS ORDERED: HYDROCODONE/APAP 10/325 TAB PO PRN (10:45)
[2020-05-21] MEDS: HYDROMORPHONE HCL 0.5 MG/0.5 ML INJ IV PRN ×4 (12:18→23:06)
--- NOTE | 2020-05-21 13:16 | P.PN ---
Subjective Date of Service: 05/21/20 Chief Complaint: Chest pain, malignant hypertension Subjective: No new changes, No C/O voiced Review of Systems 10-point ROS is otherwise unremarkable Physical Examination - Vital Signs Temperature: 98.7 F Blood Pressure: 180/90 Pulse: 79 Respirations: 16 Pulse Ox (%): 96 - Physical Exam General: Alert, In no apparent distress HEENT: Atraumatic, Normocephalic Neck: Supple Respiratory: Clear to auscultation bilaterally, Normal air movement Cardiovascular: Normal pulses, Regular rate/rhythm Capillary refill: <2 Seconds Gastrointestinal: Soft and benign, W/out hepatosplenomegaly Musculoskeletal: No swelling Integumentary: No rashes, No significant lesion Neurological: Normal speech, Normal strength at 5/5 x4 extr Lymphatics: No axilla or inguinal lymphadenopathy - Studies Microbiology Data (last 24 hrs): 05/19/20 20:34 Nasopharnyx Coronavirus COVID-19 PCR - Final Assessment & Plan Physician Review Additional Text: Assessment Chest pain with mildly elevated troponin likely secondary to malignant hypertension with history hypertension Abdominal Pain Atrial fibrillation with rapid ventricular response not on chronic anticoagulation therapy Chronic diastolic heart failure without exacerbation Coronary artery disease 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 This morning patients BP has significantly improved, cardene drip has been turned off and he is on his home medications. Will likely downgrade patient later today if he continues to do well with this. Appreciate further input from cardiology. Abdominal Pain: Patient had CT dissection protocol without significant acute findings, liver was evaluated secondarily by ultrasound without significant findings. Pt lipase normal, today WBC is elevated at 15, patient C/O worsening abd pain. Will order lactate. Considering possibility of mesenteric ischemia with patients history of vascular disease. Will monitor closely. Repeat lipase, liver function, CBC with morning labs. Consider general surgery consult if patient still having this much pain in the morning. Atrial fibrillation with rapid ventricular response not on chronic anticoagulation therapy: Continue patient's home medications and beta-blockers. Provide p.r.n. beta-jaime medication. Appreciate further input from cardiology. Patient is unsure why he is not taking a blood thinner. Could be due to cirrhosis. Chronic diastolic heart failure without exacerbation: Continue patient's home medications. Stable at this time. Coronary artery disease: Continue patient's aspirin Plavix. 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 Some abnormality on CT scan, will obtain ultrasound of the liver. COPD: Continue patient's home medication. Hyperlipidemia: Continue patient's home medication. Disposition : Continue pain medications Continue home medications and titrate as needed Will wean off narcotics For possible Dc in a.m. Time Spent Managing Pts Care (In Minutes): 43
[2020-05-21] MEDS: ONDANSETRON 4 MG/2 ML VIAL IV PRN ×2 (13:45→16:48)
[2020-05-21] MEDS: MORPHINE 2 MG/ML SYR IV PRN ×2 (15:29→20:02)
[2020-05-21] MEDS ORDERED: PROMETHAZINE INJ 25 MG/ML AMP IV PRN (18:04)
[2020-05-21] MEDS: METOPROLOL TAR 50 MG TAB PO SCH (20:03)
[2020-05-21] MEDS: LITHIUM CARBONATE 300 MG TAB PO SCH (20:03)
[2020-05-21] MEDS: ATORVASTATIN 20 MG TAB PO SCH (20:03)
[2020-05-21] MEDS ORDERED: HOME MED 1 EA UNK (Amiodarone Hcl [Amiodarone Hcl] 100 MG) PO SCH (21:00)
[2020-05-21] MEDS ORDERED: DULERA 100/5 (MOMETASONE/FORMOTEROL) INHALER IH SCH (21:00)
[2020-05-21] MEDS ORDERED: ATORVASTATIN 20 MG TAB PO SCH (21:00)
[2020-05-21] MEDS ORDERED: LITHIUM CARBONATE 300 MG TAB PO SCH (21:00)
[2020-05-21] MEDS ORDERED: HYDRALAZINE HCL 25 MG TABLET PO SCH (21:00)
[2020-05-21] MEDS ORDERED: LOSARTAN POTASSIUM 50 MG TABLET PO SCH (21:00)
[2020-05-21] MEDS ORDERED: CLONIDINE HCL 0.3 MG TAB PO ONE ×2 (23:52)
[2020-05-21] MEDS ORDERED: NITROGLYCERIN 1 GM PKT TD ONE (23:52)
[2020-05-22] MEDS: MORPHINE 2 MG/ML SYR IV PRN ×2 (00:46→08:06)
[2020-05-22] MEDS: ONDANSETRON 4 MG/2 ML VIAL IV PRN ×2 (00:47→09:53)
[2020-05-22] MEDS: HYDROMORPHONE HCL 0.5 MG/0.5 ML INJ IV PRN ×2 (05:34→09:52)
[2020-05-22] MEDS: ENOXAPARIN 40 MG/0.4 ML SQ SCH (08:08)
[2020-05-22] MEDS: NICOTINE 21 MG/PAT TD SCH (08:08)
[2020-05-22] MEDS: LOSARTAN POTASSIUM 50 MG TABLET PO SCH (08:09)
[2020-05-22] MEDS: CLOPIDOGREL 75 MG TABLET PO SCH (08:09)
[2020-05-22] MEDS: AMIODARONE HCL 200 MG TAB PO SCH (08:10)
[2020-05-22] MEDS: SPIRONOLACTONE 25 MG TABLET PO SCH (08:10)
[2020-05-22] MEDS: METOPROLOL TAR 50 MG TAB PO SCH (08:10)
[2020-05-22] MEDS: AMLODIPINE 10 MG TAB PO SCH (08:11)
[2020-05-22] MEDS: hydroCHLOROthiazide 12.5 MG CAP PO SCH (08:11)
[2020-05-22] MEDS: HYDRALAZINE HCL 25 MG TABLET PO SCH ×2 (08:11→13:31)
[2020-05-22] MEDS: ISOSORBIDE MONO SR 60 MG TAB PO SCH (08:11)
[2020-05-22] MEDS: DULERA 100/5 (MOMETASONE/FORMOTEROL) INHALER IH SCH (08:12)
[2020-05-22] MEDS ORDERED: AMLODIPINE 10 MG TAB PO SCH (09:00)
[2020-05-22] MEDS ORDERED: ISOSORBIDE MONONITRATE PO SCH (09:00)
[2020-05-22] MEDS ORDERED: LIDOCAINE 4% PATCH TOP SCH (09:00)
[2020-05-22] MEDS ORDERED: PANTOPRAZOLE 40MG TABLET PO SCH (09:00)
[2020-05-22] MEDS ORDERED: CLOPIDOGREL 75 MG TABLET PO SCH (09:00)
[2020-05-22] MEDS ORDERED: ASPIRIN 81 MG CHEWABLE TABLET PO SCH (09:00)
[2020-05-22] MEDS ORDERED: CITALOPRAM 10 MG TABLET PO SCH (09:00)
[2020-05-22 10:20] VITALS: O2SAT 97
--- NOTE | 2020-05-22 11:50 | P.DS ---
Admission Date: 05/20/20 Discharge Date: 05/23/20 Disposition: ROUTINE DISCHARGE Discharge Condition: GOOD Reason for Admission: Chest pain, malignant hypertension Brief History of Present Illness: 59-year-old male with history of hypertension, atrial fibrillation, back pain, bipolar disorder, CAD, CHF, cirrhosis, hepatitis-C, pneumonia presents the emergency department for chest pain, abdominal pain, back pain. Patient reports that his symptoms started this morning and he has had symptoms like this in the past. Patient reports that feels like somebody is standing on his chest. Patient was recently admitted and had a thorough cardiac evaluation with heart catheterization and echocardiogram. Cardiology recommended medical management at that time. During his evaluation in the emergency department patient was found to have AFib with a rapid ventricular response. Patient does have a history of atrial fibrillation. Patient also had blood pressure around 211/110. Patient's troponin was mildly elevated at 0.05. ED provider wishes to admit patient for further evaluation and management. When I saw the patient in the emergency department he was awake, alert, oriented x3, in no distress. Patient reports pain and chest that is described as pressure-like. Patient's blood pressure at the time of evaluation was approximately 200/100. Patient atrial fibrillation but is now more rate controlled around a rate of around 80. Will admit patient for further evaluation management. Will also consult cardiology. Patient reports last heart catheterization and echocardiogram were approximately 2 months ago. 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 He was started on Cardene drip was titrated off . Antihypertensives titrated Monitor under telemetry. Cardiac enzymes were trended and was mildly elevation possibly due to type 2 DE from malignant hypertension Patient has a history of acute on chronic pancreatitis for which pain medications were started Patient had CT dissection protocol without significant acute findings, liver was evaluated secondarily by ultrasound without significant findings. Pt lipase normal, today WBC is elevated at 15, He was also found to have AFib with RVR and continued his home medications along with beta-blockers cardiology was also consulted who recommended conservative management with outpatient follow up Chronic diastolic heart failure without exacerbation: Continue patient's home medications. Stable at this time. Coronary artery disease: Continue patient's aspirin Plavix. 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 COPD: Continue patient's home medication. Hyperlipidemia: Continue patient's home medication. Possible narcotic dependence : Sees pain doctor as outpatient Disposition : Continue pain medications Continue home medications and titrate as needed Will wean off narcotics Patient is being discharged home today in a stable condition with advice to follow up with PCP in 1 week and also with Cardiology and hepatology as outpatient Vital Signs/Physical Exam: Temp Pulse Resp BP Pulse Ox 98.2 F 83 18 144/79 H 99 05/22/20 08:00 05/22/20 08:11 05/22/20 09:52 05/22/20 08:11 05/22/20 09:52 General: Alert, In no apparent distress HEENT: Atraumatic, Normocephalic Neck: Supple Respiratory: Clear to auscultation bilaterally, Normal air movement Cardiovascular: Regular rate/rhythm, Normal S1 S2 Capillary refill: <2 Seconds Gastrointestinal: Soft and benign Musculoskeletal: No clubbing, No swelling Integumentary: No rashes Neurological: Normal speech, Normal strength at 5/5 x4 extr Lymphatics: No axilla or inguinal lymphadenopathy Laboratory Data at Discharge: WBC 16.5 K/uL (4.3-10.9) H 05/21/20 04:59 Hgb 14.5 g/dL (13.6-17.9) 05/21/20 04:59 Hct 43.1 % (39.6-49.0) 05/21/20 04:59 Plt Count 225 K/uL (152-406) 05/21/20 04:59 PT 12.6 SECONDS (9.5-12.5) H 05/21/20 04:59 INR 1.07 05/21/20 04:59 Sodium 140 mmol/L (136-145) 05/21/20 04:59 Potassium 4.3 mmol/L (3.5-5.1) 05/21/20 04:59 BUN 27 mg/dL (7-18) H 05/21/20 04:59 Creatinine 1.25 mg/dL (0.55-1.3) 05/21/20 04:59 Glucose 132 mg/dL (74-106) H 05/21/20 04:59 Magnesium 2.6 mg/dL (1.8-2.4) H 05/19/20 13:50 Total Bilirubin 0.6 mg/dL (0.2-1.0) 05/21/20 04:59 AST 58 U/L (15-37) H 05/21/20 04:59 ALT 74 U/L (12-78) 05/21/20 04:59 Alkaline Phosphatase 77 U/L (45-117) 05/21/20 04:59 Troponin I 0.04 ng/mL (0.0-0.045) 05/20/20 02:15 Lipase 214 U/L (73-393) 05/19/20 13:50 Home Medications: Amiodarone HCl 100 mg PO BEDTIME 03/29/20 Amlodipine [Norvasc*] 10 mg PO DAILY 03/29/20 Aspirin 81 mg PO DAILY 03/29/20 Atorvastatin Calcium [Lipitor*] 20 mg PO BEDTIME 03/29/20 Citalopram [Celexa*] 20 mg PO DAILY 03/29/20 Citalopram [Celexa*] 40 mg PO DAILY 03/29/20 Clopidogrel Bisulfate [Plavix*] 75 mg PO DAILY 03/29/20 Cyclobenzaprine [Flexeril*] 10 mg PO TID PRN 03/29/20 Hydrocodone 10/APAP 325 [[place] 10/325*] 1 tab PO Q8HP PRN 03/29/20 Isosorbide Mononitrate [Ismo] 2 tab PO DAILY 03/29/20 [place] Carbonate [Lithotabs *] 600 mg PO BEDTIME 03/29/20 Losartan Potassium [Cozaar*] 50 mg PO BID 03/29/20 Mometasone/Formoterol [Dulera 100 Mcg-5 Mcg Inhaler] 1 puff IH BID 03/29/20 Nitroglycerin [Nitrostat*] 0.4 mg SL [id number] PRN 03/29/20 Pantoprazole [Protonix Tab*] 40 mg PO DAILY 03/29/20 Potassium Chloride [Klor-Con] 20 meq PO DAILY 03/29/20 Promethazine Tab [Phenergan*] 12.5 mg PO Q6HP PRN 03/29/20 Amiodarone HCl [Cordarone*] 100 mg PO BEDTIME tab 04/03/20 Cefuroxime Axetil [Cefuroxime] 500 mg PO BID #6 tab 04/03/20 Clopidogrel Bisulfate [Plavix*] 75 mg PO DAILY tablet 04/03/20 Hydralazine [Apresoline*] 50 mg PO BID #60 tab 04/03/20 Lidocaine 4% Patch [Lidoderm 5% Patch*] 1 patch TOP DAILY #10 patch 04/03/20 [place] Carbonate [Lithotabs *] 600 mg PO BEDTIME tab 04/03/20 Metoprolol Tartrate [Lopressor*] 50 mg PO BID #60 tab 04/03/20 Mometasone/Formoterol [Dulera 100 Mcg/5 Mcg Inhaler] 2 puff IH BID #1 inhaler 05/22/20 Oxycodone HCl [Oxycodone HCl ER] 20 mg PO Q12H #14 tab.er.12h 05/22/20 Spironolactone [Aldactone*] 25 mg PO BID 30 Days #60 tab 05/22/20 New Medications: Spironolactone [Aldactone*] 25 mg PO BID 30 Days #60 tab Mometasone/Formoterol [Dulera 100 Mcg/5 Mcg Inhaler] 2 puff IH BID #1 inhaler Oxycodone HCl [Oxycodone HCl ER] 20 mg PO Q12H #14 tab.er.12h Followup: Ghulam Berrios MD [ACTIVE - CAN ADMIT] - Time spent managing pt's care (in minutes): 42
[2020-05-22] MEDS ORDERED: MORPHINE 2 MG/ML SYR IV ONE (12:27)
[2020-05-22 16:00] VITALS: BP 102/59; TEMP 98.6
== END 2020-05-22 16:25 | disposition home or self-care (01) | DRG 280 ==
LOC: ER 13:09 → ERHOLD 15:09 → 2ND 17:35 → ERHOLD 19:43 → OBSVTOIN 05-20 07:43 → ERHOLD 05-20 08:19 → 2ND 05-20 13:56
PROVIDERS: ADMIT Internal Medicine Sleep Medicine; ATTEND Family Medicine
DX: I11.0 Hypertensive heart disease with heart failure (principal); I21.A1 Myocardial infarction type 2; K85.90 Acute pancreatitis without necrosis or infection, unspecified; F11.20 Opioid dependence, uncomplicated; K86.1 Other chronic pancreatitis; I50.32 Chronic diastolic (congestive) heart failure; I48.91 Unspecified atrial fibrillation; B18.2 Chronic viral hepatitis C; I25.10 Atherosclerotic heart disease of native coronary artery without angina pectoris; J44.9 Chronic obstructive pulmonary disease, unspecified; K74.60 Unspecified cirrhosis of liver; E78.5 Hyperlipidemia, unspecified; F17.210 Nicotine dependence, cigarettes, uncomplicated; R10.9 Unspecified abdominal pain; R79.89 Other specified abnormal findings of blood chemistry; Z88.0 Allergy status to penicillin; Z79.82 Long term (current) use of aspirin; Z79.02 Long term (current) use of antithrombotics/antiplatelets; Z88.5 Allergy status to narcotic agent; Z90.49 Acquired absence of other specified parts of digestive tract; Z95.1 Presence of aortocoronary bypass graft; Z79.899 Other long term (current) drug therapy; Z11.59 Encounter for screening for other viral diseases
CPT/HCPCS: 36415; 70450; 71045; 71275; 74175; 76705; 80048; 80053; 80076; 80178; 80320; 81003; 82565; 83605; 83690; 83735; 83880; 84439; 84443; 84484; 85025; 85610; 93005; 96372; 99285; C9113; G0378; J0360; J0696; J1170; J1650; J2270; J2405; J2550; J7030; J7050; J7606; Q9967; U0002

== ENCOUNTER 2020-06-14 00:39 | Observation (INO) | payer OTHER ==
--- OUTSIDE RECORDS SUMMARY | 2020-06-14 00:42 | XMS REPORT | Clinical Summary ---
:1960 Author Organization [facility] Address [address] [place] [address] Care Team Providers Name Role Phone Sharpsophie [...] mg total) 9 020 by mouth daily. amLODIPine (NORVASC) 10 Take 10 mg [...] Encounters Date Type Specialty Care Team Description 05/20/2020 Lab Requisition Lab 06/14/2019 Anesthesia Event Gastroenterology Carolina Moulton, MINER PLACER 06/14/2019 Surgery Gastroenterology Caleb Dawn ENDOSCOP IC Nereyda Morales MD ULTRASOUND,W/ ENDO 06/09/2019 [facility] Inter costal pain; 06/15/2019 Carolina Loomis MD Other specified hypotension; Sebastian Gonzalez, Coronary art rufina disease involving confederated coos coronary artery of confederated coos heart without angina pectoris; Pulmonary emphysema, unspecified emphyse ma type (HCC); Maggie Denis MD Paroxysmal a trial fibrillation (HCC); Hypotension due to drugs; Epigastric pain ; RUQ pain; Dilated cbd, ac quired after 06/14/2019 Social History Tobacco Use Types Packs/Day Years [...] Concentration 21% 06/15/2019 7:55 AM CDT Weight - - Height - - Body Mass Index - - Plan of Treatment Not on file Procedures Procedure Name Priority Date/Time Associated Comments Diagnosis SARS-COV2/RT-PCR Routine 05/19/2020 8:30 Results for this ([facility]) PM CDT procedure are in the results section. VASCULAR DIAGRAM 06/27/2019 5:41 -SCAN PM CDT [...] abdominal location Special Needs REQ: 1400 COMPREHENSIVE METABOLIC Routine 06/14/2019 4:22 AM CDT Results for this PANEL procedure are i n the results section . CBC (HEMOGRAM ONLY) Routine 06/14/2019 4:22 AM CDT Results for this procedure are i n the results section . after 06/14/2019 Results SARS-CoV2/RT-PCR ([facility]) (05/19/2020 8:30 PM CDT) SARS-COV2/RT-PCR Negative Not Detected, Negative, [facility] See external report for MEDICAL [facility]ENTER linked test SARS-COV-[address] [facility] [place] [facility] Specimen Other Narrative Performed At Negative result for this test determines that [facility] SARS-CoV-2 RNA was not present in the specimen above the Limit of Detection (LOD).However, Negative results do not preclude SARS-CoV-2 infection and should not be used as the sole basis for treatment or patient management decisions. Negative results must be combined with clinical observations, patient history, and epidemiological information. A false negative result may occur if a specimen is improperly collected, transported or handled.A false negative result should be considered if patient's recent exposures or clinical presentation indicate that COVID-19 (SARS-CoV-2) is likely and diagnostic tests for other causes of illness are negative.Re-testing should be considered in cases of suspected false negatives. The limit of detection for this assay is 800 copies/mL. This SARS CoV-2 test is a real-time RT-PCR test intended for the qualitative detection of nucleic acid from SARS-CoV-2 in a nasopharyngeal swab specimen collected from individuals suspected of COVID-19 by their healthcare provider. This test has not been Food and Drug Administration (FDA) cleared or approved.This is a modified version of an approved Emergency Use Authorization (EUA) and is in the process of review by the FDA. Once authorized by the FDA, the issued EUA will be effective until the declaration that circumstances exist justifying the authorization of the emergency use of in vitro diagnostic tests for detection and/or diagnosis of COVID-19 is terminated under Section 564(b)(2) of the Act or the EUA is revoked under Section 564(g) of the Act. Fact Sheet for Healthcare Providers: https://www.[employer].GotVoice/sites/default/files/pro duct/documents/Fact_Sheet_HC_Providers_Graeme_SA RS-CoV-2.pdf Fact Sheet for Healthcare Patients: https://www.[employer].GotVoice/sites/default/files/pro duct/documents/Fact_Sheet_Patients_Lyra_SARS-C oV-2.pdf Performing Laboratory: [facility] [address] [place] [address] Performing Organization Address City/State/Zipcode Phone Number [facility] [address] [place] [address] CENTER VASCULAR DIAGRAM -SCAN (06/27/2019 5:41 PM CDT) [...] (06/15/2019 5:37 AM CDT)Only the most recent of2 resultswithin the time period is included. Protein, Total 7.0 6.0 - 8.3 gm/dL [facility] Albumin 3.4 (L) 3.5 - 5.0 g/dL [facility] Alkaline Phosphatase 87 40 - 150 U/L [facility] Total Bilirubin 0.6 0.2 - 1.2 mg/dL [facility] Sodium 134 (L) 136 - 145 meq/L [facility] Potassium 4.5 3.5 - 5.1 meq/L [facility] Chloride 103 98 - 107 meq/L [facility] CO2 26 22 - 29 meq/L [facility] BUN 19 7 - 21 mg/dL [facility] Creatinine 0.80 0.57 - 1.25 mg/dL [facility] ER Glucose 112 (H) 70 - 105 mg/dL [facility] Calcium 8.9 8.4 - 10.2 mg/dL [facility] AST 106 (H) 5 - 34 U/L [facility] ALT 73 (H) 6 - 55 U/L [facility] ER EGFR 99Comment: ESTIMATED GFR mL/min/1.73 sq m [facility] IS NOT ACCURATE [facility] CREATININE CLEARANCE IN PREDICTING GLOMERULAR FILTRATION RATE. ESTIMATED GFR IS NOT APPLICABLE FOR DIALYSIS PATIENTS. Specimen Blood Performing Organization Address City/State/Zipcode Phone Number [facility] [address] [place] [address] CENTER TRANSFUSION SERVICE REPORT - SCAN (06/14/2019 6:01 PM CDT) Narrative Performed At This result has an attachment that is no t available. [place] ERCP (06/14/2019 3:25 PM CDT) Specimen Narrative Performed At FINAL REPORT [facility] A fluoroscopic unit was utilized for a p rocedure performed in the operating room. No interpretation was re quested. Please refer to the operative report regarding findings. Ple ase refer to PACS for patient radiation dose information. Signed: Clifton García MD Report Verified Date/Time:06/16/2019 12:50:49 Reading Location: [facility] Reading Room Procedure Note Interface, External Ris In - 06/16/2019 12:52 PM CDT FINAL REPORT A fluoroscopic unit was utilized for a p rocedure performed in the operating room. No interpretation was re quested. Please refer to the operative report regarding findings. Ple ase refer to PACS for patient radiation dose information. Signed: Clifton García MD Report Verified Date/Time: 06/16/2019 1 2:50:49 [facility] Performing Organization Address City/State/Zipcode Phone Number GE RIS Tissue Exam (06/14/2019 3:21 PM CDT) Case Report Surgical Pathology Report Case: [id number] [facility] Authorizing Provider:Caleb Wilson Collected: 06/14/[address] [place] [address] MD Carmen Ordering Location: [address] Received:06/15/2019 9779 Service Pathologist: Misty Jackson MD Specimen:Ampulla, Am maday Bx DIAGNOSIS A. "AMPULLA", BIOPSY: [facility] - SQUAMOUS AND FOVEOLAR TYPE MUCOSA WITH MILD CHRONIC INFLAMMATION [facility] - NEGATIVE FOR MALIGNANCY (SEE COMMENT) Signing Pathologist Direct Phone Line: [phone] COMMENT The biopsy shows fragments [facility] of squamous and foveolar [facility] type mucosa with mild chronic inflammation and cautery. Focal muscle is also seen. No definite small bowel/ biliary lining is seen. The ampulla normally does not have squamous lining. This could be a metaplastic change. Clinical and endoscopic correlation is required. CPT Code(s) 6[address]94 [facility] CLINICAL HISTORY Pre and postop diagnosis: en doscopic ultrasound with endo, EUS and possible ERCP. [facility] Pre and postop diagnosis: abdominal pain [facility] SPECIMEN SOURCE Ampulla, ampulla Bx [facility] DESCRIPTION .Received in formalin [facility] labeled with the patient's [facility] name, accession number and "ampulla" is a 0.3 x 0.3 x 0.2 cm piece of meehan-brown, irregular, mucosal-covered tissue. The specimen submitted in toto following filtration in cassette A1. SS/pl MICROSCOPIC DESCRIPTION Performed. [facility] Specimen Tissue - Ampulla Performing Organization Address City/State/Zipcode Phone Number [facility] [address] [place] [address] CENTER CBC (Hemogram only) (06/14/2019 4:22 AM CDT) WBC 8.7 3.5 - 10.5 K/L [facility] RBC 4.05 (L) 4.63 - 6.08 M/L [facility] Hemoglobin 12.5 (L) 13.7 - 17.5 GM/DL [facility] Hematocrit 38.1 (L) 40.1 - 51.0 % [facility] MCV 94.1 (H) 79.0 - 92.[address] [facility] MCH 30.9 25.7 - 32.[address] [facility] MCHC 32.8 32.3 - 36.5 GM/DL [facility] RDW 13.3 11.6 - 14.4 % [facility] Platelets 198 150 - 450 K/CU MM [facility] MPV 11.4Comment: 9.4 - 12.4 fL [facility] MPV-Approximately 20% MEDICAL CE NTER positive bias due to method change. nRBC 0 0 - 0 /[address] [facility] Specimen Blood Performing Organization Address City/State/Zipcode Phone Number [facility] [address] [place] [address] CENTER after 06/14/2019 Insurance Payer Benefit Plan / Group Subscriber ID Type Phone A [facility] - MEDICARE UNITED MEDICARE HMO xxxxxxxxx MGD CARE Advance Directives For more information, please contact:[address] [place], [place] [phone] Code Status Date Activated Date Inactivated Comments [...]
--- OUTSIDE RECORDS SUMMARY | 2020-06-14 00:43 | XMS REPORT | Continuity of Care Document ---
:1960 Author Organization [facility] [employer] Care Team Providers Name Role Phone Brozengo Information MapHazardly Unavailable Un available Problems Problem Status Onset Classification Date Comments Sourc e Date Reported M54.16 - Active [facility] "RADICULOPA 0 [facility] THY, LUMBAR REGION" UNK Active [facility] 0 Edwin RADICULOPAT Active [facility] HY, LUMBAR 0 [place] REGION M54.[address] RADICULOPAT 9 HY, LUMBAR REGION Medications Medication Details Route Status Patient Ordering Order Source Instructions Provider Date Oxycodone 2 tab, Route: Inactive Hydrochloride 5 PO, ONCE, [address] [place] Oral Tablet Dosing Weight 63.636, kg, Start date: 01/02/20 15:04:00 CDT, Stop date: 01/02/20 15:04:00 CDT Labetalol Notes: (Same Inactive as: Normodyne, 2019 [place] Trandate) Push over 2 minutes Give bolus over 2-3 minutes. Ketorolac 4 days Inactive MEDICATION 2019 [place] WASTE Product Size: 30 mg Product Wasted: ___ mg Acetaminophen Notes: Max Inactive acetaminophen 2019 [place] 4000 mg/day (4 gm/day). (Same as: Tylenol Extra Strength) Fentanyl Notes: (Same Inactive as: Sublimaze) 2019 [place] Preservative free. Hydromorphone Notes: Same as: Inactive H Dilaudid 2019 [place] Naloxone Notes: Same as Inactive Narcan 2019 [place] Meperidine Notes: (Same Inactive as: Demerol) 2019 [place] "Use Precaution in Elderly, Seizure disorders, and Renal impairment&quot ; Ondansetron Notes: (Same Inactive as: Zofran) 2019 [place] MEDICATION WASTE Product Size: 4 mg Product Wasted: ___ mg sugammadex (ANES) Route: IV, Drug Inactive 01/01 / form: SOLN, 2019 [place] ONCE, Stop date: 01/02/20 14:14:00 CDT glycopyrrolate Route: IV, Drug Inactive 01/01/ MH (ANES) form: INJ, 2019 [place] , Stop date: 01/02/20 14:11:00 CDT norepinephrine Route: IV, Drug Inactive 01/01/ MH (ANES) form: INJ, 2019 [place] , Stop date: 01/02/20 14:11:00 CDT vasopressin Route: IV, Drug Inactive 01/01/ MH (ANES) form: INJ, 2019 [place] , Stop date: 01/02/20 14:11:00 CDT lidocaine (ANES) Route: IV, Drug Inactive 01/01/ form: INJ, 2019 [place] , Stop date: 01/02/20 14:11:00 CDT fentaNYL (ANES) Route: IV, Drug Inactive 01/01/ MH form: INJ, 2019 [place] , Stop date: 01/02/20 14:11:00 CDT propofol (ANES) Route: IV, Drug Inactive 01/01/ MH form: INJ, 2019 [place] , Stop date: 01/02/20 14:11:00 CDT rocuronium (ANES) Route: IV, Drug Inactive 01/01 / MH form: INJ, 2019 [place] , Stop date: 01/02/20 14:11:00 CDT diphenhydrAMINE Route: IV, Drug Inactive 01/01/ MH (ANES) form: INJ, 2019 [place] , Stop date: 01/02/20 14:05:00 CDT acetaminophen Route: IV, Drug Inactive 01/01/ M H (ANES) form: INJ, 2019 [place] , Stop date: 01/02/20 14:05:00 CDT ePHEDrine (ANES) Route: IV, Drug Inactive 01/01/ MH form: INJ, 2019 [place] , Stop date: 01/02/20 14:05:00 CDT phenylephrine Route: IV, Drug Inactive 01/01/ M H (ANES) form: INJ, 2019 [place] ONCE, Stop date: 01/02/20 14:05:00 CDT ceFAZolin (ANES) Route: IV, Drug Inactive form: INJ, 2019 [place] ONCE, Stop date: 01/02/20 14:00:00 CDT ondansetron Route: IV, Drug Inactive (ANES) form: INJ, 2019 [place] ONCE, Stop date: 01/02/20 14:00:00 CDT dexamethasone Route: IV, Drug Inactive 01/01/ M H (ANES) form: INJ, 2019 [place] ONCE, Stop date: 01/02/20 14:00:00 CDT metoclopramide Route: IV, Drug Inactive (ANES) form: INJ, 2019 [place] ONCE, Stop date: 01/02/20 14:00:00 CDT midazolam (ANES) Route: IV, Drug Inactive form: SOLN, 2019 [place] ONCE, Stop date: 01/02/20 13:55:00 CDT Lactated Ringers Route: IV, Inactive Injection IV Total Volume: 2019 [place] and (ANES) 1000 mL 1,000, Start date: 01/02/20 12:38:00 CDT, Stop date: 01/02/20 13:38:00 CDT Dilaudid Notes: Same as: Inactive Dilaudid 2019 [place] Calcium Chloride 1,000 mL, 1000 Inactive 0.0014 MEQ/ML / ml/hr, Infuse 2019 [facility] Potassium Over: 1 hr, Chloride 0.004 [...] 0.5 mg, Route: Inactive IV, ONCE, 2019 [place] Dosing Weight 63.636, kg, Start date: 01/02/20 10:36:00 CDT, Stop date: 01/02/20 10:36:00 CDT oxyCODONE 10 mg 10 mg, Route: Inactive 12/12/ M H extended release PO, Drug form: 2019 [place] ERTAB, ONCE, Start date: 12/12/19 14:16:00 DRY END TESTER, Stop date: 12/12/19 14:16:00 DRY END TESTER oxyCODONE 10 mg 10 mg, Route: Inactive 12/12/ M H extended release PO, Drug form: 2019 [place] ERTAB, ONCE, Start date: 12/12/19 14:09:00 DRY END TESTER, Stop date: 12/12/19 14:09:00 DRY END TESTER Dilaudid Notes: Same as: Inactive Dilaudid 2019 [place] Oxycodone Notes: (Same Inactive Hydrochloride 5 as: Roxicodone) 2019 [place] MG Oral Tablet Calcium Chloride 1,000 mL, Rate: Inactive 0.0014 MEQ/ML / 75 ml/hr, [address] [place] [address] Potassium Infuse over: Chloride 0.004 13.3 hr, Route: MEQ/ML / Sodium IV, Dosing Chloride 0.103 Weight 63.636 MEQ/ML / Sodium kg, Total Lactate 0.028 Volume: 1,000, MEQ/ML Injectable Start date: Solution 12/12/19 12:05:00 DRY END TESTER, Duration: 30 day, Stop date: 01/11/20 12:04:00 CDT, 1.66, m2, 0 Nitroglycerin 0.4 0.4 mg = 1 tab, Active MG Sublingual SL, Q5Min, PRN 2019 [place] Tablet as needed for chest pain, 0 Refill(s) Lisinopril PO, Daily, 0 No Longer Refill(s) Active 2019 [place] Amitriptyline PO, Bedtime, 0 Active Refill(s) 2019 [place] 24 HR carvedilol 20 mg = 1 cap, Active phosphate 20 MG PO, BID, 0 2019 [place] and Extended Release Refill(s) Capsule [Coreg] 12 HR ranolazine 1,000 mg = 1 Inactive 12/11/ H 1000 MG Extended tab, PO, BID, 0 2019 [place] Release Tablet Refill(s) [Ranexa] Clonidine 0.2 mg = 1 tab, Active Hydrochloride 0.2 PO, BID, PRN 2020 [place] MG Oral Tablet Hypertension, 0 Refill(s) lisinopril 20 mg 20 mg = 1 tab, No Longer oral tablet PO, Daily, 0 Active 2019 [place] Refill(s) AMIODarone 200 mg 200 mg = 1 tab, Active oral tablet PO, BID, 0 2019 [place] Refill(s) Potassium 20 mEq, PO, Active Chloride Daily, 0 2019 [place] Refill(s) Omnipaque 180 Notes: (Same Inactive as:Omnipaque 2019 [place] 180). WASTE: F/P - Black; E - Municipal Trash Bin Allergies, Adverse Reactions, Alerts Substance Category Reaction Severity Reaction Status Date Comments S ource type Reported penicillins Assertion Drug Active MH allergy [place] codeine Assertion Drug Active MH OPI D allergy [facility] penicillin Assertion Drug Active MH OPID allergy [facility] morphine Assertion Drug Active MH OP ID allergy [facility] Immunizations Immunization Date Site Status Last Comments Source Given Updated pneumococcal Left completed Vanessa al MH 23-valent 8 deltoid [place],M H vaccine OPID [facility] [place] Results Order Name Results Value Reference Date Interpretation Comments Anne Marie rce Range CHEM PANEL Total Protein 7.9 6.4 - 8.4 12/12 [place] CHEM PANEL Albumin Lvl 3.4 3.5 - 5.0 12/12 [place] CHEM PANEL ALT 39 0 - 65 12/12 [place] CHEM PANEL AST 32 0 - 37 12/12 [place] CHEM PANEL Alk Phos 49 39 - 136 12/12 [place] CHEM PANEL Bili Total 0.5 0.2 - 1.3 12/12 [place] CHEM PANEL Bili Direct 0.2 0.0 - 0.3 12/12 [place] CHEM PANEL Bili Indirect 0.3 0.0 - 1.0 12/12 [place] CHEM PANEL Globulin 4.5 2.7 - 4.2 12/12 [place] CHEM PANEL A/G Ratio 0.8 0.7 - 1.6 12/12 [place] CHEM PANEL Glucose Lvl 83 70 - 99 12/12 [place] CHEM PANEL BUN 20 7 - 22 12/12 [place] CHEM PANEL Creatinine 1.42 0.50 - 1.40 12/12 MH Lvl /2019 [place] CHEM PANEL Sodium Lvl 139 135 - 145 12/12 [place] CHEM PANEL Potassium Lvl 3.6 3.5 - 5.1 12/12 [place] CHEM PANEL Chloride Lvl 108 95 - 109 12/12 [place] CHEM PANEL CO2 27 24 - 32 12/12 [place] CHEM PANEL Calcium Lvl 8.8 8.5 - 10.5 12/12 [place] CHEM PANEL AGAP 7.6 10.0 - 20.0 12/12 [place] CHEM PANEL eGFR 53 12/12 Result Comment: The [place] eGFR is calculated using the CKD-EPI formula. [...] BMI. HEMATOLOGY WBC 9.5 3.7 - 10.4 / [place] HEMATOLOGY RBC 4.50 4.70 - 6.10 12/12 [place] HEMATOLOGY Hgb 13.5 14.0 - 18.0 12/12 [place] HEMATOLOGY Hct 40.8 42.0 - 54.0 12/12 [place] HEMATOLOGY MCV 90.8 80.0 - 94.0 12/12 [place] HEMATOLOGY MCH 30.1 27.0 - 31.0 12/12 [place] HEMATOLOGY MCHC 33.1 32.0 - 36.0 12/12 [place] HEMATOLOGY RDW 13.6 11.5 - 14.5 12/12 [place] HEMATOLOGY Platelet 225 133 - 450 12/12 [place] HEMATOLOGY MPV 8.8 7.4 - 10.4 12/12 [place] HEMATOLOGY PT 13.2 12.0 - 14.7 12/12 [place] HEMATOLOGY INR 1.00 0.85 - 1.17 12/12 [place] HEMATOLOGY PTT 31.1 22.9 - 35.8 12/12 [place] HEMATOLOGY Segs 62.8 45.0 - 75.0 12/12 [place] HEMATOLOGY Lymphocytes 22.8 20.0 - 40.0 12/12 [place] HEMATOLOGY Monocytes 8.5 2.0 - 12.0 12/12 [place] HEMATOLOGY Eosinophils 4.9 0.0 - 4.0 12/12 [place] HEMATOLOGY Basophils 1.0 0.0 - 1.0 12/12 [place] HEMATOLOGY Neutrophils # 5.9 1.5 - 8.1 12/12 [place] HEMATOLOGY Lymphocytes # 2.2 1.0 - 5.5 12/12 [place] HEMATOLOGY Monocytes # 0.8 0.0 - 0.8 12/12 [place] HEMATOLOGY Eosinophils # 0.5 0.0 - 0.5 12/12 [place] HEMATOLOGY Basophils # 0.1 0.0 - 0.2 12/12 [place] SPECIAL Hgb A1C 6.3 <=5.6 % 12/12 /2019 [place] Pathology Reports No Data Provided for This Section Diagnostic Reports Report Value Date Source Spine lumbar wo Spine lumbar wo contrast CT 04/19/2020 10:05 CDT 04/19/[address] [facility] [address] CLINICAL INDICATION: - lbp; [...] atherosclerosis. 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 Armand Dodd MD On 12/12/2019 12:46:19; [facility] [id number] Spine lumbar Radiation Dose CTDIVOL = 0 (mGy): DLP = 307 (mGy -cm) 10/27/2019 [facility] myelogram CT PROCEDURE INFORMATION: Exam: CT Lumbar [...] subluxation. Theodore Iniguez MD On 10/27/2019 15:50:43; [facility] [id number] Spine lumbar PROCEDURE INFORMATION: 10/27/2019 [facility] [place] [facility] myelogram DX Exam: IR Myelography with [...] details. Theodore Iniguez MD On 10/27/2019 13:07:05; [facility] [id number] Consultation Notes No Data Provided for This Section Discharge Summaries No Data Provided for This Section History and Physicals No Data Provided for This Section Vital Signs Vital Sign Value Date Comments Source Respitory Rate 10 01/02/2020 [facility] Systolic (mm Hg) 132 01/02/2020 [facility] Diastolic (mm Hg) 82 01/02/2020 USMAN iyer Respitory Rate 13 01/02/2020 [facility] Systolic (mm Hg) 113 01/02/2020 [facility] Diastolic (mm Hg) 76 [facility] 10 01/02/2020 [facility] Systolic (mm Hg) 126 01/02/2020 [facility] Diastolic (mm Hg) 77 [facility]02[facility] Height 175.26 cm 01/02/2020 [facility] Weight 63.636 01/02/2020 [facility] BMI Calculated 20.72 01/02/2020 [facility] Height 152.4 cm 12/11/2019 [facility] Weight 63.636 12/11/2019 [facility] BMI Calculated 27.4 12/11/2019 [facility] Encounters Location Location Encounter Encounter Reason Attending ADM MI Stat us Source Details Type Number For Provider Date Date Visit [facility] Outpatient [id number] Tay 10/27 10/28 Edwin Ashley II /2019 [facility] [id number] Tay 01/01 01/01 Edwin Ashley II /2019 [facility] Outpt Diag [id number] Tay 04/19 04/20 [facility] [place] [facility] /2019 [facility] Procedures Procedure Code Date Perfomer Comments Source Bypass<sup>1</s [id number] Heart Kiran ibrahim up> bypass.2016 Francisca Craven [facility] [id number] [facility]sup> [id number] Back sugery with Isaiah 2</sup> katelyn placement. [facility] Sun rUSMAN [facility] Implantation<pearson [id number] Right superior Hayden best p>3</sup> hip electrical [facility] Sun r, stimulator [facility] Neck [id number] "2 Plates and 8 Kiran ibrahim, implantation<pearson Screws in neck" MIKEL [place] p>4</sup> [facility] Assessment and Plan No Data Provided for This Section Plan of Care No Data Provided for This Section Social History Social History Date Source Social History TypeResponse 01/02/2020 [facility] Smoking Status Former smoker; Type: Cigarettes; Previou [...] entered on: 01/02/20 Social History TypeResponse 02/22/2019 [facility] Smoking Status Former smoker; Type: Cigarettes; [...]
--- OUTSIDE RECORDS SUMMARY | 2020-06-14 00:48 | XMS REPORT ---
[...] Problem Atherosclerotic heart disease of I25.10 Active [place] coronary artery without angina pectoris Problem Symptomatic [...]
--- OUTSIDE RECORDS SUMMARY | 2020-06-14 00:48 | XMS REPORT | Continuity of Care Document ---
:1960 Author Organization [facility] t Address [facility] [place] [address] Care Team Providers Name Role Phone Sharpless Primary Care Physician Biju Ashley II Attending Clinician VLADISLAV MCKENNA Attending Clinician Unavailable Vladislav Mckenna MD Attending Clinician [phone] Lisa HAYES Attending Clinician Adeel HAYES Attending Clinician Brian Moulton CRNA Attending Clinician Nereyda Dawn MD Attending Clinician Divina CATHERINE Attending Clinician Unavailable Biju Ashley II Admitting Clinician VLADISLAV MCKENNA Admitting Clinician Unavailable Divina CATHERINE Admitting Clinician Unavailable Payers Payer Name Policy Type Policy Number Effective Date Expiration Date S [facility] xxxxxxxxx [facility] - MEDICARE MGD - [facility] MEDICARE HMOxxxxxxxxx Problems Condition Condition Condition Status Onset Resolution Last Treating Co mments Source Name Details Category Date Date Treatment Clinician Date M54.16 - Diagnosis Active 2020-04-30 M emoria "RADICULOP 6-04 12:58:00 l ATHY, M54.16 - 00:01: Raúl n LUMBAR "RADICULOP 00 REGION" ATHY, LUMBAR REGION" Active 03/28/2020 [facility] UNK Diagnosis Active 2019-12-12 Mem oria 2-17 11:38:00 l UNK 00:00: [place] 00 Active 12/11/2019 [facility] Edwin RADICULOPA Diagnosis Active 2020-01-02 Memoria THY, 2-17 09:54:00 l LUMBAR 00:00: Edwin REGION RADICULOPA 00 THY, LUMBAR REGION Active 12/11/2019 [facility] Benson M54.16 Diagnosis Active 2018-102019-10-[address] [facility] oria RADICULOPA 1-20 08:57:00 l THY, M54.16 00:00: [place] LUMBAR RADICULOPA 00 REGION THY, LUMBAR REGION Active 09/13/2019 [place] Hypertensi Hypertensi Disease Active [facility] ve ve 7-20 [facility] - emergency emergency 00:00: [facility] 00 [place] Acute Acute Disease Active [facility] kidney kidney -20 [facility] - injury injury 00:00: Medical 00 [place] Diarrhea Diarrhea Disease Active [facility]20 [facility] - 00:00: Medical 00 [place] Transamini Transamini Disease Active [facility] tis tis -20 [facility] - 00:00: Medical [place] Hepatitis Hepatitis Disease Active [facility] C virus C virus 20 [facility] - infection infection 00:00: [facility] without without 00 Center hepatic hepatic coma coma Chest pain Chest pain Disease Active [facility] 7-16 [facility] - 00:00: Medical 00 [place] Syncope Syncope Disease Active [facility] 7-16 [facility] - 00:00: Medical 00 [place] Paroxysmal Paroxysmal Disease Active [facility] atrial atrial -16 [facility] - fibrillati fibrillati 00:00: Me dical on on Center COPD COPD Disease Active [facility] (chronic (chronic -16 [facility] - obstructiv obstructiv 00:00: Me dical e e 00 Center pulmonary pulmonary disease) disease) CAD CAD Disease Active [facility] (coronary (coronary 3-30 [facility] - artery artery 00:00: Medical disease) disease) 00 Center Atrial Atrial Problem Active [facility] fibrillati fibrillati Abigail kes - on, on, Memoria unspecifie unspecifie l d type d type [facility] Clinics Primary Primary Problem Active [facility] insomnia insomnia [facility] - Memoria l [facility] Left foot Left foot Problem Active [facility] pain pain [facility] Memoria l [facility] Chronic Chronic Problem Active [facility] generalize generalize Abigail kes - d pain d pain Memoria l [facility]ics Closed Closed Problem Active [facility] displaced displaced Luke s - fracture fracture Memori a of first of first l metatarsal metatarsal Ou tpati bone of bone of ent left foot, left foot, Cl inics sequela sequela Arterioscl Arterioscl Problem Active [facility] erotic erotic [facility] - cardiovasc cardiovasc Me morijaime ular ular l disease disease [facility] (ASCVD) (ASCVD) ent Clinics HTN HTN Problem Active [facility] (hypertens (hypertens Abigail kes - ion) ion) Memoria l [facility] ent Clinics Pure Pure Problem Active [facility] hyperchole hyperchole Abigail kes - sterolemia sterolemia Me moria l [facility] Clinics Dementia Dementia Problem Active [facility] [...] St emia emia [facility] - Memoria l [facility]ics Elevated Elevated Problem Active [facility] blood blood [facility] - pressure pressure Memori a reading reading l [facility] Abdominal Abdominal Problem Active [facility] pain pain [facility] - Memoria l [facility] Pulmonary Pulmonary Problem Active CHI [...] Abigail kes - person person Memoria l [facility] ent [facility] Hospital Problem Active [facility] discharge discharge Luke s - follow-up follow-up Flaquito radha l [facility] ent [facility] Constipati Constipati Problem Active [facility] on, on, [facility] - unspecifie unspecifie Me moria d d l constipati constipati Ou tpati on type on type ent Clinics History of History of Problem Active [facility] coronary coronary [facility] - artery artery Memoria disease disease l [facility] Hypertensi Hypertensi Problem Active [facility] ve ve [facility] - emergency emergency Flaquito radha l [facility] ent Clinics Chest Chest Problem Active [facility] pain, pain, [facility] - unspecifie unspecifie Me moria d type d type l [facility] ent [facility] Lumbar Lumbar Problem Active [facility] degenerati degenerati Abigail kes - ve disc ve disc Memoria disease disease l [facility] Bipolar 1 Bipolar [address] disorder disorder [facility] - Memoria l [facility] Symptomati Symptomati Problem Active [facility] c c [facility] - hypotensio hypotensio Me moria n n l [facility] ent Clinics Other Other Problem Active [facility] specified specified Luke s - urinary urinary Memoria incontinen incontinen l ce ce [facility] Panic Panic Problem Active [facility] attacks attacks [facility] - Memoria l [facility] ent Clinics Benign Benign Problem Active [facility] prostatic prostatic Luke s - hyperplasi hyperplasi Me moria a with a with l lower lower [facility] urinary urinary ent tract tract Clinics symptoms symptoms Moderately Moderately Problem Active [facility] severe severe [facility] - major major Memoria depression depression l [facility] Chronic Chronic Problem Active [facility] hepatitis hepatitis Luke s - C without C without Flaquito radha hepatic hepatic l coma coma [facility] Simple Simple Problem Active [facility] chronic chronic [facility] - bronchitis bronchitis Me moria l [facility] ent Clinics Cirrhosis Cirrhosis Problem Active [facility] of liver of liver [facility] - without without Memoria ascites, ascites, l unspecifie unspecifie Ou tpati d hepatic d hepatic ent cirrhosis cirrhosis Clin ics type type Complaints Complaints Problem Active [facility] of memory of memory Luke s - disturbanc disturbanc Me moria e e l [facility]ics Malignant Malignant Problem Active [facility] hypertensi hypertensi Abigail kes - ve urgency ve urgency Me moria l Outpati ent Clinics Allergies, Adverse Reactions, Alerts Allergy Allergy Status Severity Reaction(s) Onset Inactive Treating Comm ents Source Name Type Date Date Clinician Penicill DA Active SV [facility] ins 1-08 Clear 00:00: Pink 00 [place] codeine DA Active [facility] 1-08 Clear 00:00: Pink 00 [place] Cephalos Propensi Active Nausea And [facility] porins ty to Vomiting 7-03 [facility] - adverse 00:00: Medical reaction 00 Center s Codeine Propensi Active Hives [facility] ty to 7-15 [facility] - adverse 00:00: Medical reaction 00 Center s Penicill Propensi Active [facility] ins ty to 3-30 [facility] - adverse 00:00: Medical reaction 00 [place] s penicill Adverse Active rash [facility] in Reaction [facility] Cephalos Adverse Active vomiting [facility] t porins Reaction [facility] penicill penicill Active Memori a ins ins l [place] codeine codeine Active Memoria l Edwin penicill penicill Active Memori a in in l [place] morphine morphine Active Memori a l [place] Social History Social Habit Start Date Stop Date Quantity Comments Source Sex Assigned At [facility] History of tobacco 2018-05-[address] - use 00:00:00 [facility] Smoking Status Start Date Stop Date Source Former smoker 2019-06-14 00:00:00 2019-06-14 00:00:00 [facility] Medications Ordered Filled Start Stop Current Ordering Indication Dosage Frequency Signature Comments Components Source Medication Medication Date Date Medication? Clinician (SIG) Name Name Buddy Zofran Yes Na Heard as needed [facility] 3-19 for nausea [facility] - 00:00: Memoria 00 [facility] ent Clinics Oxycodone No 2 tab, Memori a Hydrochlori 3-10 Route: PO, l de 5 MG 20:04: ONCE, Edwin Oral Tablet 00 Dosing Weight 63.636, kg, Start date: 01/02/20 15:04:00 CDT, Stop date: 01/02/20 15:04:00 CDT Labetalol No Notes: Memori a 3-10 (Same as: l 19:18: Normodyne, Trandate) Push over 2 minutes Give bolus over 2-3 minutes. Ketorolac 2020-0 No 4 days Memor ia 3-10 l 19:18: MEDICATION WASTE Product Size: 30 mg Product Wasted: ___ mg Acetaminoph 2020-0 No Notes: Max Memoria en 3-10 acetaminop l 19:18: hen 4000 mg/day (4 gm/day). (Same as: Tylenol Extra Strength) Fentanyl 2019-0 No Notes: Memoria 3-10 (Same as: l 19:18: Sublimaze) Preservat alberto free. Hydromorpho 2019- No Notes: Flaquito radha ne 3-10 Same as: l 19:18: Dilaudid Naloxone 2019-0 No Notes: Memoria 3-10 Same as l 19:18: Narcan Meperidine 2019- No Notes: Memor ia 3-10 (Same as: l 19:18: Demerol) "Use Precaution in Elderly, Seizure disorders, and Renal impairment " Ondansetron 2019- No Notes: Flaquito radha 3-10 (Same as: l 19:18: Zofran) MEDICATION WASTE Product Size: 4 mg Product Wasted: ___ mg sugammadex 2020-0 No Route: IV, M emoria (ANES) 3-10 Drug form: l 19:14: SOLN, ONCE, Stop date: 01/02/20 14:14:00 CDT glycopyrrol 2019-0 No Route: IV, Memoria ate (ANES) 3-10 Drug form: l 19:11: INJ, ONCE, Stop date: 01/02/20 14:11:00 CDT norepinephr 2019-0 No Route: IV, Memoria ine (ANES) 3-10 Drug form: l 19:11: INJ, ONCE, Stop date: 01/02/20 14:11:00 CDT vasopressin 2020-0 No Route: IV, Memoria (ANES) 3-10 [...] ONCE, Stop date: 01/02/20 14:11:00 CDT rocuronium 2020-0 No Route: IV, M emoria (ANES) 3-10 Drug form: l 19:11: INJ, ONCE, Stop date: 01/02/20 14:11:00 CDT diphenhydrA 2020-0 No Route: IV, Memoria MINE (ANES) 3-10 Drug form: l 19:05: INJ, ONCE, Stop date: 01/02/20 14:05:00 CDT acetaminoph 2020-0 No Route: IV, Memoria en (ANES) 3-10 [...] ONCE, Stop date: 01/02/20 13:55:00 CDT Lactated 2019-0 No Route: IV, Mem oria Ringers 3-10 Total l Injection 17:38: Volume: Nelly nn IV (ANES) 00 1,000, 1000 mL Start date: 01/02/20 12:38:00 CDT, Stop date: 01/02/20 13:38:00 CDT Dilaudid 2020-0 No Notes: Memoria 3-10 Same as: l 16:12: Dilaudid Calcium 2020-0 No 1,000 mL, Memor ia Chloride 3-10 1000 l 0.0014 16:00: ml/hr, MEQ/ML / 00 Infuse Potassium Over: 1 Chloride hr, Route: 0.004 IV, 1,000, MEQ/ML / Drug form: Sodium INJ, PRE Chloride OP, Dosing 0.103 Weight MEQ/ML / 63.636 kg, Sodium Start Lactate date: 0.028 01/01/20 MEQ/ML 11:00:00 Injectable CDT, Solution Duration: 1 doses or times, Bolus, 0 Calcium 2020-0 No 1,000 mL, Memor ia Chloride 3-10 Rate: 75 l 0.0014 15:38: ml/hr, Edwin MEQ/ML / 00 Infuse Potassium over: 13.3 Chloride hr, Route: 0.004 IV, Dosing MEQ/ML / Weight Sodium 63.636 kg, Chloride Total 0.103 Volume: MEQ/ML / 1,000, Sodium Start Lactate date: 0.028 03/10/20 MEQ/ML 10:38:00 Injectable CDT, Solution Duration: 30 [...] 00 ERTAB, ONCE, Start date: 12/12/19 14:16:00 [facility], Stop date: 12/12/19 14:16:00 [facility] oxyCODONE 2020-0 No 10 mg, Memori a 10 mg 2-18 Route: PO, l extended 20:09: Drug form: Her mitchell release 00 ERTAB, ONCE, Start date: 12/12/19 14:09:00 [facility], Stop date: 12/12/19 14:09:00 [facility] Dilaudid 2020-0 No Notes: Memoria 2-18 Same as: l 20:08: Dilaudid [place] 00 Oxycodone 2020-0 No Notes: Memori a Hydrochlori 2-18 (Same as: l de 5 MG 19:05: Roxicodone Herm aurelia Oral Tablet 00 ) Calcium 2020-0 No 1,000 mL, Memor ia Chloride 2-18 Rate: 75 l 0.0014 18:05: ml/hr, Benson MEQ/ML / 00 Infuse Potassium over: 13.3 Chloride hr, Route: 0.004 IV, Dosing MEQ/ML / Weight Sodium 63.636 kg, Chloride Total 0.103 Volume: MEQ/ML / 1,000, Sodium Start Lactate date: 0.028 12/12/19 MEQ/ML 12:05:00 Injectable [facility]PITAL COOK, Solution Duration: 30 day, Stop date: 01/11/20 12:04:00 CDT, 1.66, m2, 0 Nitroglycer 2020-0 Yes 0.4 mg = 1 Memoria in 0.4 MG 2-17 tab, SL, l Sublingual 17:38: Q5Min, PRN H ermann Tablet 00 as needed for chest pain, 0 Refill(s) Lisinopril 2020-0 No PO, Daily, M emoria 2-17 0 l 17:37: Refill(s) [place] Amitriptyli 2019-0 Yes PO, Memori a ne 2-17 Bedtime, 0 l 17:37: Refill(s) Edwin 00 24 HR 2019-0 Yes 20 mg = 1 Memoria carvedilol 2-17 cap, PO, l phosphate 16:48: BID, 0 Raúl n 20 MG 00 Refill(s) Extended Release Capsule [Coreg] 12 HR No 1,000 mg = Memori a ranolazine 2-17 1 tab, PO, l 1000 MG 16:48: BID, 0 [place] Extended 00 Refill(s) Release Tablet [Ranexa] Clonidine Yes 0.2 mg = 1 Me moria Hydrochlori 2-17 tab, PO, l de 0.2 MG 16:48: BID, PRN Herm aurelia Oral Tablet 00 Hypertensi on, 0 Refill(s) lisinopril No 20 mg = 1 Me moria 20 mg oral 2-17 tab, PO, l tablet 16:47: Daily, 0 [place] 00 Refill(s) AMIODarone 2019-0 Yes 200 mg = 1 M emoria 200 mg oral 2-17 tab, PO, l tablet 16:47: BID, 0 [place] 00 Refill(s) Potassium 2019-0 Yes 20 mEq, Memor ia Chloride 2-17 PO, Daily, l 16:47: 0 Edwin 00 Refill(s) Omnipaque 2019-0 No Notes: Memori a 180 -03 (Same l 15:15: as:Omnipaq Benson ue 180). WASTE: F/P - Black; E - Municipal Trash Bin amLODIPine 2018- No 10mg QD Take [address] [facility] (NORVASC) 06-15-22 by mouth [facility] - 10 MG 12:21: 00:00 daily. Medical tablet 03 :00 Center cloNIDine 2019- No .2mg Q.5D Take 0.[address] [facility] HCl 8- 08-22 mg by [facility]ukes - (CATAPRES) 12:21: 00:00 mouth 2 Med ical 0.2 MG 03 :00 (two) Center tablet times daily. hydroCHLORO 2018- No 12.5mg QD Take 12.[address] [facility] thiazide 06-15 08-22 mg by [facility]ukes - (HYDRODIURI 12:21: [...] via M edical 80-4.5 36 inhaler 2 [place] mcg/actuati (two) on inhaler times daily. lithium 300 Yes 300mg QD Take [address] MG capsule 8-16 mg by [facility]ukes - 16:26: mouth Medical 49 nightly . [place] amiodarone 2018-0 Yes 100mg Q.5D Take [address] (PACERONE) 8-16 mg by [facility]ukes - 100 MG 16:26: mouth 2 Medical tablet 49 (two) Center times daily. isosorbide 2018-0 Yes 60mg QD Take [address] mononitrate 8-16 by mouth Luke s - (IMDUR) 60 16:26: daily. Medic al MG 24 hr 49 Center tablet ranolazine Yes 1000mg QD Take 1,[address] (RANEXA) 8-16 mg by [facility]ukes - 1,000 mg SR 16:26: mouth Medic al tablet 49 daily. Center lisinopril Yes 40mg QD Take [address] (PRINIVIL,Z 8-16 by mouth Luke s - ESTRIL) 40 16:21: daily . Medi dustin MG tablet 31 Center Albuterol Albuterol Yes Na Heard inhale [address] [facility] Sulfate Sulfate 5-14 vial by [facility]ukes - 00:00: mouth via Memoria 00 nebulizer l 3 times a Outpati day ent Clinics Ipratropium Ipratropium Yes Na Heard as [facility] [place] 5-14 directed [facility]ukes - 00:00: Memoria 00 l Outpati ent Clinics Amlodipine Amlodipine 2017-10 Yes Na Heard [address] [facility] Besylate Besylate 0-29 [facility]ukes - 00:00: Memoria 00 l [facility] HYDROcodone Yes 1{tbl} Take [address] -acetaminop 7-19 tablet by Kofi witt (NORCO 08:53: mouth Medica l 10-325) 13 every 6 Center 10-325 mg (six) per tablet hours as needed for Pain. mometasone- Yes 2{puff} Q.5D Inhale [address] formoterol 7-19 puffs by Yeyo - (DULERA) 08:52: mouth via Medi dustin 100-5 02 inhaler 2 Center mcg/actuati (two) on inhaler times daily. albuterol Yes 1{puff} Inhale [address] HFA 7-19 puff by Yeyo - (VENTOLIN 08:52: mouth via Med ical [...] hours or as directed by . famotidine Yes 20mg Take 1 [facility] [...] week then Memoria 00 1 tablet l [facility] carvedilol Yes 25mg Take 1 [facility] t (COREG) 25 4-05 tablet (25 Kofi es - MG tablet 00:00: mg total) Med ical 00 by mouth 2 Center (two) times daily with breakfast and dinner. amitriptyli Yes 50mg QD Take [address] ne (ELAVIL) 3-30 by mouth Luke s - 50 MG 13:44: nightly. Medical tablet 02 [place] DULoxetine Yes 60mg QD Take [address] (CYMBALTA) 3-30 by mouth [facility]ukes - 60 MG 13:44: daily. Medical capsule 02 [place] vitamin E Yes 200U QD Take [address] 200 UNIT 3-30 Units by Lukes - capsule 13:44: mouth Medical 02 daily. Center Amitriptyli Amitriptyli Yes Na Heard [address] [facility] ne HCl ne HCl [facility] - Memoria [facility] Dulera Dulera Yes Na Heard 2 puffs [facility] - Memoria l [facility] ent Clinics Amiodarone Amiodarone Yes Na Heard [address] HCl HCl [facility]ukes - Memoria l [facility] Aspir-81 Aspir-81 Yes Na Heard [address] [facility] - Memoria l [facility] ent Clinics Isosorbide Isosorbide Yes Na Heard [address] Mononitrate Mononitrate in the Lukes - ER ER morning Memoria l [facility] Clinics [place] Yes Na Heard [address] Carbonate Carbonate at bedtime [facility]ukes - Memoria l [facility] Atorvastati Atorvastati Yes Na Heard [address] [facility] [facility] n Calcium n Calcium [facility] - Memoria l [facility] ent Clinics Losartan Losartan Yes Na Heard [address] Potassium Potassium [facility]ukes - Memoria l [facility] ent Clinics Gabapentin Gabapentin Yes Na Heard [address] [facility] - Memoria l [facility] ent Clinics Carvedilol Carvedilol Yes Na Heard as [facility] directed [facility] - Memoria l [facility] ent Clinics HydrALAZINE HydrALAZINE Yes Na Heard [address] HCl HCl with food [facility] - Memoria l [facility] Citalopram Citalopram Yes Na Heard [address] Hydrobromid Hydrobromid L ukes - e e Memoria l [facility] Lorazepam Lorazepam Yes Na Heard [address] as needed [facility] - Memoria l [facility] Bricelyn Bricelyn Yes Na Heard [address] [facility] as needed [facility] - Memoria l [facility]ics Hydrochloro Hydrochloro Yes Na Heard [address] thiazide thiazide in the Lukes - morning Memoria l [facility] Ranolazine Ranolazine Yes Na Heard [address] ER ER [facility] - Memoria l [facility] Lisinopril Lisinopril Yes Na Heard [address] [facility] - Memoria l [facility] Vital Signs Vital Name Observation Time Observation Value Comments Source Respitory Rate 2020-01-02 20:30:00 Dayanna al Edwin Systolic (mm Hg) 2020-01-02 20:30:00 Flaquito Pineda Diastolic (mm Hg) 2020-01-02 20:30:00 Mem orial [place] Respitory Rate 2020-01-02 20:15:00 Memagustina al [place] Systolic (mm Hg) 2020-01-02 20:15:00 Flaquito rial [place] Diastolic (mm Hg) 2020-01-02 20:15:00 Mem orial [place] Respitory Rate 2020-01-02 20:00:00 Memori al Edwin Systolic (mm Hg) 2020-01-02 20:00:00 Flaquito rial Edwin Diastolic (mm Hg) 2020-01-02 20:00:00 Mem orial Edwin Height 2020-01-02 16:08:00 175.26 cm [facility] Weight 2020-01-02 16:08:00 [facility] BMI Calculated 2020-01-02 16:08:00 Memori al Edwin Height 2019-12-11 17:02:00 152.4 cm [facility] Benson Weight 2019-12-11 17:02:00 [facility] [place] BMI Calculated 2019-12-11 17:02:00 [facility] al Edwin Systolic blood 2019-06-15 11:23:00 128 mm[Hg] [facility] Diastolic blood 2019-06-15 11:23:00 80 mm[Hg] [facility] S t [facility] Heart rate 2019-06-15 11:23:00 66 /min [facility] Body temperature 2019-06-15 11:23:00 36.28 Lanny [facility] Respiratory rate 2019-06-15 11:23:00 18 /min [facility] Oxygen saturation in 2019-06-15 11:23:00 99 /min [facility] Arterial blood by Medical Ce nter Pulse oximetry Procedures Procedure Date / Time Performing Clinician Source Performed SARS-COV2/RT-PCR ([facility] & 2020-05-19 20:30:[address] [facility] - REF LABS) [facility] VASCULAR DIAGRAM -SCAN 2019-06-27 17:41:14 Provider, Default [facility] REPORT OF PROCEDURE - 2019-06-17 15:18:13 Caleb Dawn [facility] - ENDOSCOPY [facility] REPORT OF PROCEDURE - 2019-06-17 15:11:39 [facility] ENDOSCOPY [facility] REPORT OF PROCEDURE - 2019-06-16 13:33:30 Provider, Default [facility] - ENDOSCOPY SCAN Scanning [facility] CARDIAC CATH REPORT - 2019-06-16 13:33:24 Provider, Default [facility] SCAN Scanning [facility] RHYTHM STRIP - SCAN 2019-06-16 13:33:17 Provider, [facility] COMPREHENSIVE METABOLIC 2019-06-15 05:37:[address] [facility] TRANSFUSION SERVICE 2019-06-14 18:01:40 Provider, Default [facility] - REPORT - SCAN [facility] [place] ERCP 2019-06-14 15:25:00 Nereyda [facility] TISSUE EXAM 2019-06-14 15:21:00 Nereyda [facility] ENDOSCOPIC 2019-06-14 14:12:00 Nereyda [facility] ULTRASOUND,W/ENDO [facility] ERCP W/BIOPSY 2019-06-14 14:12:00 Nereyda [facility] ERCP,BALLOON SWEEPING 2019-06-14 14:12:00 Ling [facility] ERCP,PAPILLOTOMY 2019-06-14 14:12:00 [facility] PROCEDURE W/ C-ARM 2019-06-14 14:12:00 [facility] CBC (HEMOGRAM ONLY) 2019-06-14 04:22:00 Wilver Cheek [facility] COMPREHENSIVE METABOLIC 2019-06-14 04:22:[address] [facility] Bypass<sup>1</sup> [facility] aurelia Denture care [facility] Discectomy<sup>2</sup> [facility] Implantation<sup>3</sup> Memoria l [place]ck [facility] implantation<sup>4</sup> Encounters Start End Encounter Admission Attending Care Care Encounter Source Date/Time Date/Time Type Type Clinicians Facility Department ID 2020-05-03 2020-05-03 [facility] [id number] 14:25:00 14:25:00 t Cordova Cordova [employer] [facility] Outpati ent Clinics 2020-04-19 2020-04-19 Outpatient Dion [id number] 09:58:00 23:59:00 Tay [id number] Biju [id number] 2020-02-12 2020-02-12 [facility] [id number] 11:15:00 11:15:00 t Station X [facility] Outpati ent Clinics 2020-01-26 2020-01-26 [facility] [id number] 11:20:00 11:20:00 t Station X [facility] Outpati ent Clinics 2020-01-11 2020-01-11 [facility] [id number] [facility] 15:32:00 15:32:00 t Station X [facility] Outpati ent Clinics 2020-01-03 2020-01-03 [facility] [id number] 09:20:00 09:20:00 t Station X [facility] Outpati ent Clinics 2020-01-02 2020-01-[address] [id number] 09:54:00 15:59:00 Biju 2020-01-02 2020-01-02 Outpatient MHBL MHBL [id number] [facility]BL 09:54:00 09:54:00 2019-11-13 2019-11-13 [facility] [id number] 14:13:00 14:13:00 t Specialty/U Abigail kes [facility] Outpati ent Clinics 2019-11-01 2019-11-01 [facility] [id number] [address] 09:20:00 09:20:00 t Station X [facility] Outpati ent Clinics 2019-10-27 2019-10-27 Outpatient KELLI Ashley MHSE [id number] 08:50:00 23:59:00 Tay 00 Biju 2019-10-27 2019-10-27 Outpatient MHSE MHSE [id number] [facility] 08:50:00 08:50:[address] [facility] 2019-09-05 2019-09-05 [facility] [id number] [address] 09:29:00 09:29:00 t Cordova Cordova liveBooks s - Drive [facility] Outpati ent Clinics 2019-05-31 2019-05-31 [facility] [id number] 12:00:00 12:00:00 t Cordova Cordova Order Mapper [employer] s - Drive [facility] Medicine Outpati ent Clinics 2019-05-30 2019-05-30 [facility] [id number] [address] 15:00:00 15:00:00 t Cordova Cordova liveBooks s - Order Mapper [facility] Outpati ent Clinics 2019-04-26 2019-04-26 [facility] [id number] 15:09:00 15:09:00 t Cordova StellaService s - Drive [facility] Medicine Outpati ent Clinics 2019-03-30 2019-03-30 [facility] [id number] [address] 15:40:00 15:40:00 t Cordova Cordova liveBooks s - Order Mapper [facility] Medicine Outpati ent Clinics 2019-02-23 2019-02-23 Outpatient E MHSE MED [id number] MH 15:40:00 15:40:[address] [facility] 2019-01-10 2019-01-10 [facility] [id number] [address] 08:41:00 08:41:00 t Cordova StellaService s - Order Mapper [facility] Outpat[facility] ent Clinics 2018-12-12 2018-12-12 [facility] [id number] [address] 08:15:00 08:15:00 t Cordova Cordova liveBooks s - Drive [facility] Outpat[facility] ent Clinics 2018-07-27 2018-07-27 [facility] [id number] 15:15:00 15:15:00 t Cordova Cordova liveBooks s - Drive [facility] Outpat[facility] ent Clinics 2018-06-09 2018-06-09 [facility] [id number] 08:00:00 08:00:[address] Luke s - Drive [facility] Outpati ent Clinics 2018-05-31 2018-05-31 [facility] [id number] 09:00:00 09:00:[address] Luke s - Drive [facility] Outpati ent Clinics 2018-04-20 2018-04-20 [facility] [id number] 09:45:00 09:45:[address] Luke s - Drive [facility] Outpati ent Clinics 2018-04-15 2018-04-15 [facility] [id number] 15:26:00 15:26:[address] Luke s - Drive [facility] Outpati ent Clinics 2018-03-15 2018-03-15 [facility] [id number] 15:15:00 15:15:[address] [place] [facility] Outpati ent Clinics 2018-02-28 2018-02-28 [facility] [id number] 09:15:00 09:15:00 t Cordova Cordova [facility] Results Test Description Test Time Test Comments Results Result Comments Source SARS-CoV2/RT-PCR ([facility]) 2020-05-20 09:54:00 Test Item Value Reference Range Interpretation Comme nts SARS-COV2/RT-PCR (test code = Negative Not Detected, 69416-7) Negative, See external report for linked test SARS-COV-2 PERFORMING LAB [facility] (test code = 18493-1) JENNIFER (test code = JENNIFER) Negative result for this test determines that SARS-CoV-2 RNA was not present in the specimen above the Limit of Detection (LOD). However, Negative results do not preclude SARS-CoV-2 infection and should not be used as the sole basis for treatment or patient management decisions. Negative results must be combined with clinical observations, patient history, and epidemiological information. A false negative result may occur if a specimen is improperly collected, transported or handled. A false negative result should be considered if patient's recent exposures or clinical presentation indicate that COVID-19 (SARS-CoV-2) is likely and diagnostic tests for other causes of illness are negative. Re-testing should be considered in cases of suspected [...] Food and Drug Administration (FDA) cleared or approved. This is a modified version of an approved [...] of the Act. Fact Sheet for Healthcare Providers:https://www.[employer]. [employer]/sites/default/files/produ ct/documents/Fact_Sheet_HC_Pr qjmdniz_Vkvk_LQJW-XsH-3.pdf Fact Sheet for Healthcare Patients:https://www.[employer]/sites/default/files/produc t/documents/Fact_Sheet_Patien ed_Ijsc_ECSI-JaL-1.pdf Performing Laboratory:[facility] [facility] [address].[place], [place] [address] [place], [place] [address]ARS-COV2/RT-PCR ([facility])2020-05-20 09:54:00 Test Item Value Reference Range Interpretation Comments SARS-COV2/RT-PCR (test Negative Not Detected, Negative, code = 7777025) See external report for linked test SARS-COV-2 PERFORMING LAB [facility] (test code = 3899677) Negative result for this test determines that SARS-CoV-2 RNA was not present in the specimen above the Limit of Detection (LOD). However, Negative results do not preclude SARS-CoV-2 infection and should not be used as the sole basis for treatment or patient management decisions. Negative results mustbe combined with clinical observations, patient history, and epidemiological information. A false negative result may occur if a specimen is improperly collected, transported or handled. A false negative result should be considered if patient's recent exposures or clinical presentation indicate that COVID-19 (SARS-CoV-2) is likely and diagnostic tests for other causes of illness are negative. Re-testing should be considered in cases of suspected false negatives.The limit of detection for this assay is 800 copies/mL.This SARS CoV-2 test is a real-time RT-PCR test intended for the qualitative detection of nucleic acid from SARS-CoV-2 in a nasopharyngeal swab specimen collected from individuals suspected of COVID-19 by their healthcare provider.This test has not been Food and Drug Administration (FDA) cleared or approved. This is a modified version of an approved [...] is revoked under Section 564(g) of the Act.Fact Sheet for Healthcare Providers:https://www.[employer].com/sites/default/files/product/documents/Fact_Shee k_SQ_Nxzggmneu_Idiy_OXWH-ZnQ-3.pdfFact Sheet for Healthcare Patients:https://www.[employer]/sites/default/files/product/ documents/Zmty_Rsoab_Aopbelym_Epyp_UVRR-LsF-0.pdfPerforming Laboratory:[facility], [place] [address]EGYQ [id number] 18:34:007.9[facility]annCHEM CBFNP3709-65-80 18:34:003.4[facility]annCHEM WLMVB4066-87-48 18:34:0039[facility]annCHEM CZHMY2334-18-43 18:34:0032 [facility]annCHE[facility] DVEFZ4704-97-19 18:34:0049[facility]annCHEM PANEL 2019-12-12 18:34:000.5[facility]annCHEM QXWEQ5416-22-11 18:34:000.2[facility]annCHEM KYAVM9029-67-02 18:34:000.3[facility]ann[facility] QNGXK9326-81-98 18:34:004.5[facility]annCHEM [id number] 18:34:00 Test Item Value Reference Range Interpretation Comments A/G Ratio (test code = A/G Ratio) 0.8 1 0.7-1.6 [facility]annCHE[facility] [id number] 18:34:0083[facility]annCHEM PANEL 2019-12-12 18:34:0020[facility]annCHEM MNLYI9728-54-86 18:34:001.42[facility]annCHEM DATKS8617-26-99 18:34:09191Tfaqrfoa HermannCHEM UIYQB2984-89-41 18:34:003.6[facility]annCHEM HQVCN2713-63-45 18:34:00122Fgoahjqh HermannCHEM RAKWB9217-21-07 18:34:0027[facility]annCHEM EGMEM5308-71-65 18:34:008.8 [facility] NDMBQ6975-99-09 18:34:007.6[facility]annCHEM PANEL 2019-12-12 18:34:0053[facility] FzyrlqwDFFLUHLRXM2111-33-03 18:34:009.5[facility] XufrhqfYLYALOZIOX5886-90-30 18:34:004.50[facility]orial MwhkajxJVRYWQPVFJ2500-42-03 18:34:0013.5[facility] IrjngzzVLCDZSVNLO7640-70-61 18:34:0040.8[facility] Edwin ZETJKSGDHE1534-81-57 18:34:0090.8[facility] OdiqezrCGQLKTSWZB7112-08-71 18:34:00 Test Item Value Reference Range Interpretation Comments MCH (test code = MCH) 30.1 pg 27.0-31.0 [facility] XkhxcclAHISQUWPTY3409-10-48 18:34:0033.1[facility] HermannHEMATOLOGY 2019-12-12 18:34:0013.6[facility] EwsnyncWFLMRYTONB0355-14-59 18:34:94068Icsxsnht ZmfgdglVXCCLOOYGT2675-53-14 18:34:008.8[facility] TfshkvaJZTZJRBOIB2684-77-11 18:34:00 Test Item Value Reference Range Interpretation Comments PT (test code = PT) 13.2 s 12.0-14.7 Memorial JqzcfmvHEMOXQLHHS0937-89-66 18:34:00 Test Item Value Reference Range Interpretation Comments INR (test code = INR) 1.00 1 0.85-1.17 [facility] XyonafvCYPVHPKWIF3580-33-91 18:34:00 Test Item Value Reference Range Interpretation Comments PTT (test code = PTT) 31.1 s 22.9-35.8 Memorial YydxfdaUZVRFWCKXJ3583-63-23 18:34:0062.8[facility] HermannHEMATOLOGY 2019-12-12 18:34:0022.8[facility] FootibdHUZJHDGNUO9537-20-15 18:34:008.5[facility] JhxmqjgUCXNVFYZOQ9284-90-93 18:34:004.9[facility] WhjjqvfFDMHMOZWVP4720-79-01 18:34:001.0[facility] ToohiuvXYHUPWJXDM5471-58-91 18:34:005.9[facility] Benson DWVRSKGODQ6895-20-46 18:34:002.2[facility] XxvcjvyQUYWPWFZOV1807-90-60 18:34:000.8 [facility] SonmojjDLCLPLGAAH3826-86-28 18:34:000.5[facility] HermannHEMATOLOGY 2019-12-12 18:34:000.1[facility] HermannSPECIAL WYTFBIZRG8292-24-89 18:34:006.3 [facility] HZXBS4494-25-04 06:36:00 Test Item Value Reference Range Interpretation [...] CA) 8.9 MG/DL 8.5-10.1 N CBC W/AUTO [id number] 06:32:00 Test Item Value Reference Range Interpretation [...] = NO DIFF/SCN CRITERIA MDIFF) COMPREHENSIVE METABOLIC [id number] 06:08:00 Test Item Value Reference Range Interpretation [...] TOTAL (test code = ALKP) CBC W/AUTO [id number] 05:52:00 Test Item Value Reference Range Interpretation [...] concentrations <2 ng/mL are obtai brandon. LACTIC [id number] 16:03:00 Test Item Value Reference Range Interpretation Comments LACTIC ACID (test code = LACT) 1.0 mmol/L 0.4-2.0 N - XR CHEST 1 [id number] 15:59:00 Name: ALHAJI FARAH [facility] : 1960 Age/S: 58 / M [id number] Unit #: [id number] Loc: [place] [address] Phys: Jac Leal MD Acct: [id number] Dis Date: Status: ADM IN PHONE #: [phone] Exam Date: 11/02/2019 1556 FAX #: Reason: Fever EXAMS: CPT: [id number] XR CHEST 1 V 06627 Fluoro Time: DAP (Gy m2): Air Kerma [...] FARAHland : 1960 Age/S: 58 / M [address] [place] [address] Unit #: [id number] Loc: [place] [address] Phys: Jac Leal MD Acct: [id number] Dis Date: Status: ADM IN PHONE #: [phone] Exam Date: 11/02/2019 1556 FAX #: Reason: Fever EXAMS: CPT: [id number] XR CHEST 1 V 63843 Fluoro Time: DAP (Gy m2): Air Kerma (mGy): <Continued> Technologist: Sabine Cross RT(R)(CT) Trnscb Date/Time: 11/02/2019 (0476) [email or web address] Orig Print D/T: S: 11/02/2019 (6954) PAGE 2 Signed HicmnvKHCCGIJO-[id number] 04:22:00 Test Item Value Reference Range Interpretation [...] yby method. Completed by Nursing: NOBASIC METABOLIC [id number] 04:19:00 Test Item Value Reference Range Interpretation [...] CA) 8.1 MG/DL 8.5-10.1 L CBC W/AUTO [id number] 04:08:00 Test Item Value Reference Range Interpretation [...] = NO DIFF/SCN CRITERIA MDIFF) - CTA PMAKB2013-16-08 22:57:00 Name: ALHAJI FARAH [facility] : 1960 Age/S: 58 / M [address] Unit #: [id number] Loc: [place] [address] Phys: Jac Leal MD Acct: [id number] Dis Date: Status: ADM IN PHONE #: [phone] Exam Date: 11/01/2019 9171 FAX #: Reason: Chest PAIN EXAMS: CPT: [id number] CTA CHEST 59148 Examination: CTA chest, PE protocol Indication: Chest [...] 1 Signed Report (CONTINUED) Name: ALHAJI FARAH : 1960 Age/S: 58 / M [address] Unit #: [id number] Loc: [place] [address] Phys: Jac Leal MD Acct: [id number] Dis Date: Status: ADM IN PHONE #: [phone] Exam Date: 11/01/20195 FAX #: Reason: Chest PAIN EXAMS: CPT: [id number] CTA CHEST 16150 <Continued> No suspicious or destructive osseous lesions. Impression: Limited exam secondary to phase of contrast no evidence of acute pulmonary embolism proximal lobar pulmonary arteries. There is irregular, possibly nodular thi ckening of the esophagus, recommend further evaluation with endoscopy Additional findings as detailed above at 2753 Reported and signed by: Katy Dykes M.D. CC: Jac Leal MD Technologist:Curly Logan, RT(R)(CT); .. CTDI: DLP: Trnscb Date/Time: 11/01/2019 (7279) [email or web address] Orig Print D/T: S: 11/01/2019 (3646) PAGE 2 Signed ReportGLYCOSYLATED HEMOGLOBIN [id number] 17:41:00 Test Item Value Reference Range Interpretation Comments GLYCOSYLATED HEMOGLOBIN (HA1C) 6.3 % A1C 4.2-6.3 N (test code = GLYHGB) ESTIMATED AVERAGE GLUCOSE (test 134 MG/DLest code = EAG) COMPREHENSIVE METABOLIC [id number] 17:40:00 Test Item Value Reference Range Interpretation [...] = LDL/HDL) 2.94 Ratio 1.48-3.22 Avg N URIXFFFENZM9274-53-48 17:40:00 Test Item Value Reference Range Interpretation Comments PHOSPHOROUS (test code = PHOS) 3.5 MG/DL 2.5-4.9 N RULE OUT FL [id number] 17:40:00 Test Item Value Reference Range Interpretation [...] nume rical results may roma yby method. [id number] 17:40:00 Test Item Value Reference Range Interpretation Comments MAGNESIUM (test code = MAG) 2.5 MG/DL 1.8-2.4 H TROPONIN I [id number] 15:24:00 Test Item Value Reference Range Interpretation Comments TROPONIN I RAPID 0.04 ng/mL 0.00-0.08 N - The use o f serial (test code = sampling and te sting TROPIRAP) protocol is a recommended pra ctice- An elevated tro ponin level alone is often not sufficient for diagnosis of my ocardial infarction. BASIC METABOLIC [id number] 13:39:00 Test Item Value Reference Range Interpretation [...] 133 Unit/L 26-192 N CK) TROPONIN I [id number] 11:56:00 Test Item Value Reference Range Interpretation Comments TROPONIN I RAPID 0.04 ng/mL 0.00-0.08 N - The use o f serial (test code = sampling and te sting TROPIRAP) protocol is a recommended pra ctice- An elevated tro ponin level alone is often not sufficient for diagnosis of my ocardial infarction. - XR CHEST 1 [id number] 11:53:00 Name: DARA FARAHLUCIA GOMES [place] : 1960 Age/S: 58 / M [address] Unit #: [id number] Loc: [place] [address] Phys: Darell Medrano MD Acct: [id number] Dis Date: Status: PRE ER PHONE #: [phone] Exam Date: 11/01/2019 1146 FAX #: Reason: chest pain EXAMS: CPT: [id number] XR CHEST 1 V 00887 Fluoro Time: DAP (Gy m2): Air Kerma [...] Medrano MD PAGE 1 Signed Report Name: GAGANALHAJI GOMES [place] :1960 Age/S: 58 / M [address] Unit #: [id number] Loc: [place] [address] Phys: Darell Medrano MD Acct: [id number] Dis Date: Status: PRE ER PHONE #: [phone] Exam Date: 11/01/2019 1147 FAX #: Reason: chest pain EXAMS: CPT: [id number] XR CHEST 1 V 07279 Fl uoro Time: DAP (Gy m2): Air Kerma (mGy): <Continued> Technologist:Nirmal Negron RT(R)(MR) Trnscb Date/Time: 11/01/2019 (1466) [email or web address] Orig Print D/T: S: 11/01/2019 (1394) PAGE 2 Signed ReportCBC W/O [id number] 11:50:00 Test Item Value Reference Range Interpretation [...] 11.80 fL 7.0-9.6 H MPV) CHEMISTRY 8 [id number] 11:47:00 Test Item Value Reference Range Interpretation [...] 49-113 N code = GFRBED) CHEMISTRY 8 [id number] 11:47:00 Test Item Value Reference Range Interpretation [...] 81 49-113 N (test code = GFRBED) Tissue [id number] 10:31:00 Test Item Value Reference Range Interpretation Comments Case Report (test code Surgical Pathology = 104) Report Case: [id number] Authorizing Provider: Caleb Dawn Collected: 06/14/2019 Bhavna Morales MD Ordering Location: [address] Received: 06/15/2019 0759 Service Pathologist: Misty Jackson MD Specimen: Ampulla, Ampulla Bx DIAGNOSIS (test code = [id number] 3220) FuZzEwMzNcZnRuYmpcdWMx AVavqrYdNEsnb0DjT1ZgVv AwMFxhbnNpXGRlZmxhbmcx MDJnUZW6ltHqLYCoTMrsDH ZnMCtzIt6kjIKylVxmYtVy HQIto2gmhyZDfawlnCu1a7 rgUXPqDrV3pKSyAWgvO3jy xoFtcFTjZFWdGVk7nQ41VF CspK4etCRuXIjnvaIpRnF6 LPtyVUJwCrI7DZRemPPwFQ GaE2loLLUwZIjbWITfLFwc oDIiENE7rObak9Y1sTSnwG SqyJhyGnXtRnBsPJYKk2Hy SWw5vLfuY8EpVZPjOzU9gO QgUGFyYWdyYXBoIEZvbnQ7 bK02NEtkczZ7uONhg9Cwm6 8el084mN2kpZMgWSO9XTOv KURrhSRtWQWmBWJ7YXDeaL BwE5a6DmDviXOuP4X9IgKh vADlB3N7WzFjxKQlW2J6Xd JyuPEtCXBebZKvQt9xkKDg cTCfal6wqq91IKZ2u8YbcJ diORL0EKM6ZpLnFd2xaCRk IYArWE4uTbTmhMFeJRBusq 85rPdhAMavowMrfH5jGvZi DEIidUFeHUYwVO6alRKcHM JtqV3bexyaHFZzVzAkozkh QCCuuSidjhWmGx8weBzxGY A9FUkmC4ojuE6aXsN9GHez V0kguY2bDSi9TWellDX9CQ MtpM1gBM8nrcmhq1kpThZe YV9zuaqnl2rnNzZyBQ1msk m8d5puFiTjHU1ihlzme4ck NzIwXGhlYWRlcnkwXGZvb3 TkxxjnNXRbg6DrU9CbyXdm Y24mbEnwX72gTMFtfZhisV 4luOsilK6jVfPhPkFuEEee bFxwbGFpblxmMVxmczIwXG oqwywuHRQkDDjrL7ynMeIz NLRexGloGBkcy7RoQGBgCF IdSlQuXY5hIpDIUIJBTCUo JDYIBK2PR4x2ZDJyqmNdWB RrE4TNIK9LWNFfRS0UZMGR VkVPTEFSIFRZUEUgTVVDT1 NBIFdJVEggTUlMRCBDSFJP EmbYPGgWThoOEM3RHVkKKg baIFKfCF8wMA4WS3UKTPZP FXUSAhPLCWuCC42CBuMRDH jYXMTwM37RPFHCWEfvgUNy rXgvcuDhKFkhu3GvDTeyOY QrPG5vxFjkCQSkMK6yBLDb F1rnxQ1vtce3JqOqCPXaTj O1DXZbupN7Fcq1ZJLwBKah b6nkz1KdQIHbNJw1wPmmSq SnGZQfw6pxuaLrJpWwRHEk MRCtSRYtaWYxV986m2dbt9 kgjhOpbCS2VEObEQX5MMlq dvMhgcY9PAipxKPyVdN5PI tccmVkMFxncmVlbjBcYmx1 YLRnO016HNX9wLvcn4emDN V4VYDbMLYjEoSyIy0umSPw J243YGYrYWILDDUmkAu4YD WosdFoezBdiVFNs283S072 k6xdOMFlufCovUgZwcdfe6 keA206NRIumYRldqWkRuRr JLOvwGKrnRP5PMJgWK3pdi zjGLmfSVugTUCejtC8XBFf sDYdJ8VlAAStQN1sgckoED H9BGubZQYuJLH6ErWvPAIf f9Fquqm3PvKyet6vpt26OV K3z2GrcEagZBG1TDL4OjTw Ku4tzGMqFOUkPA3oWwNkqD JbRRNmxo61eWsfYXmoCMK2 HJBodoKmv7Hdb8elIlSxst QlH5ylQ7EkPYIiIQDdCKOc RoZbpdYcg9Rvc2HotMOneK h8w0ddBPUoMPVhrTxau6xi EMH9SVBmwHXwY5xclJ7nIR OqWU1ycedvr6qjCBlqYDuv WMPceJP5idA6SKKgpLKmN9 QhhH2kJVLxVLcaCCBzcic0 XhSrNv2rdAAlxBumORfcZd twYWdlXHBnbmNvbnRccGdu ZGVjXHBsYWluXHBsYWluXG YwXGZzMjRccWxcbGFuZzEw MzNcaGljaFxmMVxkYmNoXG FiVWfbN5kjYyOvDaXeFxf2 IVPmkTTsPGXnKgy1IUEntT IvZJQBgJgkeZ2fHGXhpImm cP8fkID9WKCznpJrfFIHdB 2pECUZxQ7pBfS5EzAvNdJ5 LTQyNDlccGFyfX0= COMMENT (test code = s0yapKCvACObqTJfPaPjAU 3358) PpLWJby2naEAVbtOHjHaVg MzNcZnRuYmpcdWMxXGRlZm Nxa9bqm951fTMzj2guVUJo DrN9eVVgBRNhjLBqU751t7 lwz1ohvaUlwLG1TQPzQMQ1 IXnhrmYumfY5TMyyrSFnLt F6ZJlacpBfFYphihUpgvSf Rhc4IGTiO948MZA9fDyiu0 vhCIY5ZUQvKHNyChMlWz1k jZEfB440NQPrJCZKQHJvsK t5XFRxziRpctVumYZEp507 B509f4cxXOXaskDzoYeGto udk1uuY352VMZdqUNkreHi AfOeXSSfeLMvbLP3TCAcUO 1gsjywAfAcYG7jpfgyMjNz CO3bnuy1HuKuZT5lxxqxJi XrTZskAXLaoxegHDFzi3Mk czeyXN1nK0Lwv7D2aZ1ptN YuKHUdgKBjRrNbEJHjyv8i aYTcJBvdm6FfKCW4xcU8vV RioKUzNTQbAD52Fyqon0Jb AlhgVQE1WKMgseEyf1Twe9 jyIvFibcTeR4aiK5EqQKMj QZZtQGBlAlNnxzBfz4Ogn7 BifTCzyMa9e0rtKKUlRRMq nYjhy4ujPRY9ARZgO9U8fU Hiy9fzHMxiFQNvaKO6yrtx FSiwKIYfsgU9letjEPsgIT RrfLP8zykrOKzgWXYgHaP3 weoaLBeeLRTtJVL8PApcb8 46XXG9VWxgFcnfWFmjEXYf bmNvbnRccGduZGVjXHBsYW luXHBsYWluXGYwXGZzMjRc iKfliKdqwY0mGtNlJvMgZF luXL1qXFLiG5bjiIHvTGAi CDRhR5liNdLdpC4gtEahFZ efhjZsBDGsKGSnfR6tb8vf v5huv4NuSeQfL36pgiIrJK 5yNAJgbGDrb4EtWKQgOFMv i4Pwv3ugwuD0sHSzSJ36O0 7iTHI2uCMqYU2wnXJrR2un z40gKgZpinPeLJ3dOADjq7 3gVZ1zTIErrKIcnxeoLXQs G7TmAV63k6IsCBJanmDuoC XcTLMoZN9lNP9sJWJmOegx bCFiMQRjGXayEZAeb2KjCl NrcGazKHM9MIokijsoPjQf lsXtGWOfZeEXcOOmLK4qfN gkFCBng7PnBEolhDHbb1Sv EV9uuRTgHWHrMCUvfLOsn4 ZmSZfuvhtsQw6rJLkjomBa i4IpSGTrLDQiQL8hlNEgbY ZomJifSGEdSJ6iRS6jD2qf ueykOSxxGX6mFTBkYR6aD5 6ixQUpL23yjjBhPTUvm72x aXMgcmVxdWlyZWQuXHBhcn 0= CPT Code(s) (test code q5seoGArHPEstXTfImRrAS = 3357) PzPDPvh5ctLFGubYWrWpGi MzNcZnRuYmpcdWMxXGRlZm Yco7pcw274kDRud3xzICSb VkF8iRToCTCqgFGeH037p6 wkc7sghnLdzXW6OHDiKKO3 VQmnjcZdmoN9YMaosCPzZf Q4ZJsprsNrHHtxtbVkweOq Nrp5KMOtM126UML6xEbbs8 bgKBQ9WOTkJAHyUgGpDw9k wEOpL789OGWyGBRLMQKdlP q4ITYxneYwbaAcdHLXf344 R753e2hlUNPkqrMqiKhVjk sev5ptP684BHRdhKCeapZh LdCjBLNurCJxmXL3ELIyRO 6dhafcPuZiEH2wfimqWwMw VH5qygu5DbLtUY6gkwxtJu LaXUhwUTFhcmcuXIVow1Dy wibjEY4sJ7Hnt7F3tV4kkX YpSVJzxXKlUrIwGDZitr5v wPTcMKcbi9XaVOE0gaA6lW CxuKYrQAIfCS07Xalzj4Pl CxbaWME9VKKcnjMwf5Uus4 shEuXjrgCxB4xrJ3IkFOIz JRFwDUEyDhTsuiLas6Iso6 VtrXUxeHr4y7qaTQSaPRNn wHzsy6vmWDQ4MHHpT9O8fD Xgm0urYBifHVGuvXM2tttj GNgyHJVhgbB1jctqKCpnDW EkfJM4fyyzDIwoQEFnNaT3 uhhcPBzvXZQbMIH5JXzyg9 78NXO8SOvvDapaRAcrJPAb bmNvbnRccGduZGVjXHBsYW luXHBsYWluXGYwXGZzMjRc jIpxwTtuuW6eRlOqYeFaRF trUL6qRJAdS4auoPYhPIEd RPNiY0hgLnIevC7trGkuCT ncxeNmFCw7EkX7LOKjdw4= CLINICAL HISTORY (test e6zyvLUhCDGopMOpJwLdUJ code = 3356) ZzKTWnt9scVNWxjAJtRqEm MzNcZnRuYmpcdWMxXGRlZm Avu0xms748bZSck8ktENKi XjH6sUShWHKvkHTpS241XP FbSFgdp8djm3DaHEHclZTc r1O7QBEFjeoknIj4vQenC3 7qv4O2FfogW5tlWGKdKKji YJHrPAqxuIFoDWR1SLWoVD P5BWchduUmhpJ2TFigvLCc DkC2AXy7t4ggvHyjQOZaIA O1v1hwIIlwduNqLF2nhk8n qKm1j8drejGzFYNlAVPieD IVEBQwK8JwqQzaTv3dkLn0 vFzhYllnKTH4Hfd8KY7tfe 18xtc7sOgnKPIqjypvJxN9 JEnnCJSzbiguPLt3PKsvJM JnbDcyMFxtYXJncjcyMFxt YXJndDcyMFxtYXJnYjcyMF keLJXrVKJ2SUsxa063KBT3 APcpm1lps5yznGEsLgk3XU GtDdPkYgcyYEzph0Tpz9oh UFFqsy5eZZQ2qBRteUemg4 M3xWFxXIUrgGHhzmZzRHAm QmU0VCsxGX4kha45WSWrPF Q8wl9quGLlaVqcceBaaNJd HHcwF3NwGLRot719JQReP1 FhOFWei4X5chDfEcJnIDFv qII5afH1HDVhJYm5zNTxtj X9axWhkQQuE4dqbJ54IsTq yFAsJ5GssQ40VbItiABxI3 OuzT23FmYnwKWrN9CwzU55 BsKldLSsQNQorIWbYs3xyP IctISbv8MeuJJdKAfzI30i l601LPDfuuKlP5lgeAWovs xwbGFpblxmMFxmczIwXHFs XHBsYWluXGYwXGZzMjBccG lhbQ2ePdJqIoXzNZAEnmOn ZM9wLPDnf0OpfJKqfXYwqv 8sxQT8SDGpOA6qJ47clXCl tRp4lkTrg9YjGDG0qJAoIJ TwQK8uWUWVRaJdhlXmqF5b d3avdLNoKFNOSD8xtPDbEQ TnLERdfwBbbC5whE2gNJRu MHolc7UcpdotWQMem21dyy XlEOOckR6kbFFseT== SPECIMEN SOURCE (test x4yxwQYkKFVpkZSxEgNjOX code = 3377) IuAFRtc1uuIIGtsZGxFcSm MzNcZnRuYmpcdWMxXGRlZm Vxt4hii268wHIdx6tgRFXg ZlC3eMCfFBMeyJGpG279s5 bni5qklwKcpSO5PTLmFPI2 QAyolfNsmsP1ZRtceZDvGn J6ZBxtxuAdJEbzutNnqgJv Yoy5BGQlU387JZN2gFblx8 hyXFJ8IFImSPHySjPlVm7v rUUlE950YELrLNMWBWQxgE n9ZPSehbRnmgEeeYAYi225 Y764y5koIGDxakZpiUuGjk tza8rgB410OKQpcZEkoeGo PtHuVKNuiEJegQC1CWBcMZ 6kfrmkAxZiUW3tsimcJmZg KN9vipy8EuRqGM9ohyphOs BpUDnaMVBbhmllGYZok3Id wlkqYF2uP5Skq9X1jE8szU KmIWRgyGRqSvPzZTQpxm0j eJNtDDimr9UuLOG5dfT3gZ BywZWnLLGiOF38Qaaoy8Ex UicsOWM0QTBpecAkg7Ipm0 kcGlSpccHsP1ecR5BeCLGj ZWFaIVJxLeVuarPfu9Agj6 KqjTQsuSj1z6bcZUJoPTUj lUqcx5wrVBH2OCBmE3N3fR Pse6gwDEnvZFGclPN2qgnp UKenQNCsbzQ1yfbdXVmgWI XrmNK2kjlmDJsgIGIhPaH0 jvhqPEgbWKZdFTV4XJwlk3 31FZW2UFcpInnqRQkdWJUx bmNvbnRccGduZGVjXHBsYW luXHBsYWluXGYwXGZzMjRc eUbgzGlgeE4tChUsTjHvKE dlGJ8uZJYuN5hnkKCyMBRx QVSkL2iqUcCxpF5svYraXI xmczIwIEFtcHVsbGEsIGFt cHVsbGEgQnggXHBhcn0= GROSS DESCRIPTION (test x5nbuBGgCYUapWStMcFwKF code = 3366) XzIBYpn2ucPSRyyDYiAdAh MzNcZnRuYmpcdWMxXGRlZm Pog5oip255wBFak5esMKQj KtG9qJXjAUAvnQAlC457PO OgNYtel6uta6ThGAEioDSy j5A7KBNOxjzmhZa4xIibE5 5rt8U9AdicR8xyQLDqFXkx JDNaQCpqzPZlIPL3AGIoWH Q5YEnywwJgxjN4IQzgjWYr KiF3GEw6z6qvkZfaHAVtIU A4g3zoHFjpbxHjPK0cun9s nBl4x9gesoNkUZTeALCmmV SCVXQlB3XugViwHf6mfXx1 nEwiOeliNGW4Fcq1EF5ele 26sqa0dGhzFGVlvljsMgP7 MQlrPDCdilpsZBb1OUknIG JnbDcyMFxtYXJncjcyMFxt YXJndDcyMFxtYXJnYjcyMF kpDAUmVDK0TFqcn225OAE3 IJyuy9acg8dsdNBlHcf2ZB WaZeTeSiyqZUxnq5Qbo2ee YTGyzi8jYVN7mQIjiHgfl4 C3lLDuSRFzmASywaSjKGJd PeG6FSnoOC3tpw19HIDoCZ C1jo2akDNliHgacfMhpLMe ZUvoU0WpIVZuc573TFVaQ8 PrMRSre7E6tyEcBhFiGEFn lXL2ddO0DPYzHWk4sCOroc M6yeLbjJZzH3ypdB83VaHe nERpR0JncN16PePtvQJjV5 DnaU99ZwSrqDIeL6OvxS22 KoQsyQRcOLMamKKfKr6vuR FkrWLfz7ZuyLLgXOoiC54p q422SJVepaQdO6rwqMUaca xwbGFpblxmMFxmczIwXHFs XHBsYWluXGYwXGZzMjBccG tpvB8tWiWcZoHvWKZtGYRe YWluXGYxXGZzMjAgUmVjZW r7BZYivB3eEh6laJJbrI2v wLHeIAdqUOD4jXRgJOCkNU WsYQJbRJ03V5OwriFhCIdo KSAjDZVvbI4vGC54aHSvfr LjjpThjQpmtQ6nDfCmHjSa MCAgImFtcHVsbGEiIGlzIG ZkIL2kQXjfKF7vIDmpRX2b TWHjLGVkHZSuVN8mZCZqca 3aul78zpclYNQcDCwcRXTd LURlFhWccYCaLBs6rGYyAH BsYWluXGYwXGZzMjAgLCBt eMGbt4FpLOMytvOiFLXfsC yii6TcAlWiaLbstZ9eBjKb UuFkEKTOzXVbb0DeG6woCC 1xk7QejKi2jIXqWLqcCOCq dC6uLw4xzD39cC6vWOHmlZ JuOCBdu80slI6uF5Nvb0H5 rYMxtQdrqS3hDsPyNcLzVC WjHXFhQSQVDz6lmEjkOWX2 MICROSCOPIC DESCRIPTION y7tcfJJiVNLrvJEaYtDqQI (test code = 3371) GbPBJyh1puOKPlpBRvEcOs MzNcZnRuYmpcdWMxXGRlZm Ndy6ikt804jIWgs1ctIRWr MkU7nZGyUJJrtIYvT977VH NoSSnvl8udb3QdZTEbvIRq d6B9YUUKvxxviPv5pCixN1 4pl4U9OrecE2fgNXMcOHfs DMEmWAxdxKDkUBU6HFPxSI I8MDzbwyMwvnR3AXbzsCOf XxO4XSm2p8srkZikWQSfQG A3g4vzMUzntnPcAV0amp6u hLf0r3ewvsSmSBLxYCGulY VPIGHmS1OteOrdRc1yzMh4 iDglVnwyPOP4Tvo9GB4bba 77uyj8sDdtJTRrltijWpS7 LTzdHGIcxcluIMo7PMbgXF JnbDcyMFxtYXJncjcyMFxt YXJndDcyMFxtYXJnYjcyMF qrVEHaANP6KMchz865IND1 RKiir2oik1funMFiFsj6MG MsRiXwBtemSFwdl5Vdq9qx AJKgfy5gPHD5dAIspGioc5 J1pIHtFPVtoFIkgpFlVPKd cq98tFUmtSWucWVluv0axh AlsWHolLDlBPQ0iUAavaOd SHRjuKEuNMGhDG8yeQOuWL WzcT6ybdyxEKGyHqHznstz IFOwsMqeeeRlAq5tyNywXR A6SNexM9prgL2yJkC3EMzq G6ftfK9fBZt5ZOoehGF2IO JweR9uHH1jdslbo5swErFg LL2kejiob0xnFqSwLF1pcp i6u9tlNgBxAP1jalsjh6ra NzIwXGhlYWRlcnkwXGZvb3 CwslxyNCUic7DyD6NshHgt Z58jfFlrP42jMUDshGiuzI 7yvNkmlT5uSsNrAhQbPFqo bFxwbGFpblxmMFxmczIwXH BsYWluXGYxXGZzMjAgUGVy Oj4diHLwMqytCTNnbYThtZ == [facility] Center[facility] [id number] 10:31:00Surgical Pathology Report Case: [id number] Authorizing Provider: Caleb Dawn Collected: 06/14/2019 Bhavna Morales MD OrderingLocation: [address] Received: 06/15/2019 0759 Service Pathologist: Misty Jackson MD Specimen: Ampulla, Ampulla Bx A. "AMPULLA", BIOPSY: - SQUAMOUS AND FOVEOLAR TYPE MUCOSA WITH MILD CHRONIC INFLAMMATION - NEGATIVE FOR MALIGNANCY (SEECOMMENT) Signing Pathologist Direct Phone Line: [phone] signed by Francisca Jackson MD on 06/19/2019 at 10:31 AMThe biopsy shows fragments of squamous and foveolar type mucosa with mild chronic inflammation and cautery. Focal muscle is also seen. No definite small bowel/ biliary lining is seen. The ampulla normally does not have squamous lining. This could be a metaplastic change. Clinical and endoscopic correlation is required.[id number] and postop diagnosis: endoscopic ultrasound with endo, EUS and possible ERCP.Pre and postop diagnosis: abdominal painAmpulla, ampulla Bx .Received in formalin labeled with the patient's name, accession number and "ampulla" is a 0.3 x 0.3 x 0.2 cm piece of meehan-brown, irregular, mucosal-covered tissue. The specimen submitted in toto following filtration in cassette A1. SS/plPerformed.FL, [id number] 12:50:00 Reason for exam:->Abdominal PainFINAL REPORT A fluoroscopic unit was utilized for a procedure performed in the operating room. No interpretation was requested. Please refer to the operative report regarding findings. Please refer to PACS for patient radiation dose information. Signed: Diana Nicholas Verified Date/Time: 06/16/2019 12:50:49 Reading Location: [facility] Radiology Reading Room F [id number] 12:50:00 Interface, External Ris In - 06/16/2019 12:52 PM CDTFINAL REPORT A fluoroscopic unit was utilized for a procedure performed in the operating room. No interpretation was requested. Please refer to the operative report regarding findings. Please refer to PACS for patient radiationdose information. Signed: Diana Nicholas Verified Date/Time: 06/16/2019 12:50:49 Reading Location: [facility] Radiology [id number] 12:01:00 Test Item Value Reference Range Interpretation Comments CULTURE (BEAKER) (test No growth in 5 days code = 1095) BLOOD [id number] 12:01:00 Test Item Value Reference Range Interpretation Comments CULTURE (BEAKER) (test No growth in 5 days code = 1095) Comprehensive metabolic [id number] 07:08:00 Test Item Value Reference Range Interpretation Comments Protein, Total (test 7.0 6.0- 8.3 gm/dL code = 2885-2) Albumin (test code = 3.4 g/dL 3.5-5 L 51445-8) Alkaline Phosphatase 87 U/L 40-150 (test code = 6768-6) Total Bilirubin (test 0.6 mg/dL 0.2-1.2 code = 1974-2) Sodium (test code = 134 meq/L 136-145 [...] Calcium (test code = 8.9 mg/dL 8.4-10.2 60241-1) AST (test code = 106 U/L 5-34 H 1920-8) ALT (test code = 73 U/L 6-55 H 1742-6) EGFR (test code = 99 mL/min/1.73 [place] [address]-5) NOT ACCURATE CREATININE CLEARANCE IN PREDICTING GLOMERULAR FILTRATION RATE . ESTIMATED GFR I S NOT APPLICABLE FOR DIALYSIS PATIEN TS. Lab Interpretation Abnormal (test code = 25667-0) [facility] [id number] 07:08:00 Test Item Value Reference Range Interpretation [...] NOT APPLICABLE FOR DIALYSIS PATIEN TS. BLOOD [id number] 02:00:00 Test Item Value Reference Range Interpretation Comments CULTURE (BEAKER) (test No growth in 5 days code = 1095) BLOOD [id number] 02:00:00 Test Item Value Reference Range Interpretation Comments CULTURE (BEAKER) (test No growth in 5 days code = 1095) BLOOD [id number] 02:00:00 Test Item Value Reference Range Interpretation Comments CULTURE (BEAKER) (test No growth in 5 days code = 1095) COMPREHENSIVE METABOLIC [id number] 04:49:00 Test Item Value Reference Range Interpretation [...] K/CU MM 777-3) MPV (test code = 81002-3) 11.4 fL 9.4-12.4 MP V-Approximately 20% positive bi as due to method change. nRBC (test code = 413) 0 0- 0 /100 WBC Lab Interpretation (test Abnormal code = 66682-8) [facility]2019-06-14 04:38:00 Test Item Value [...] 0-0 CELLS (BEAKER) (test code = 413) [id number] 16:17:00 Test Item Value Reference Range Interpretation Comments ACTIVATED CLOTTING TIME 125 sec TEST ED AT [facility] 67[address] ([facility]) (test code = [facility]) [address] PET, CARDIAC PERFUSION MULTIPLE STUDIES, REST AND [id number] 16:40:00 Reason for exam:->chest pain, evaluate for worsening CAD, s/p CABGFINAL REPORT PROCEDURE: MYOCARDIAL PERFUSION PET IMAGING (Rest/Stress)CPT CODE: 59205 INDICATION: Evaluate acute chest pain/discomfort CARDIOVASCULAR PROFILE:CAD [...] MDReport Verified Date/Time: 06/12/2019 16:40:23 Reading Location: [address] Reading Room TROPONIN [id number] 02:08:00 Test Item Value Reference Range Interpretation [...] acute neurological disease, and persistent tachyarrhythmia.HEPATIC FUNCTION [id number] 02:02:00 Test Item Value Reference Range Interpretation [...] = 26 U/L 6-55 347) BASIC METABOLIC [id number] 02:02:00 Test Item Value Reference Range Interpretation [...] S NOT APPLICABLE FOR DIALYSIS PATIEN TS. VANCOMYCIN LEVEL, [id number] 01:59:00 Test Item Value Reference Range Interpretation [...] WBC 0-0 (BEAKER) (test code = 413) [id number] 07:20:00 Test Item Value Reference Range Interpretation Comments PROCALCITONIN (BEAKER) (test code 0.30 ng/mL <0.05 H = 3036) SEPSIS RISK (ng/mL)Low: 0.05-0.50Intermediate: 0.51-2.00High: >=2.01BASIC METABOLIC [id number] 07:16:00 Test Item Value Reference Range Interpretation [...] APPLICABLE FOR DIALYSIS PATIEN TS. HEPATIC FUNCTION [id number] 07:16:00 Test Item Value Reference Range Interpretation [...] WBC 0-0 (BEAKER) (test code = 413) [id number] 05:55:00 Test Item Value Reference Range Interpretation Comments MAGNESIUM (BEAKER) (test code = 2.1 mg/dL 1.6-2.6 627) LIPID [id number] 05:55:00 Test Item Value Reference Range Interpretation [...] 130-159 High 160-189 Very High >=190HEPATIC FUNCTION [id number] 05:55:00 Test Item Value Reference Range Interpretation [...] = 34 U/L 6-55 347) BASIC METABOLIC [id number] 05:55:00 Test Item Value Reference Range Interpretation [...] PATIEN TS. CBC W/PLT COUNT & AUTO [id number] 05:03:00 Test Item Value Reference Range Interpretation [...] PERCENT (BEAKER) (test code = 2801) TROPONIN [id number] 05:02:00 Test Item Value Reference Range Interpretation [...] acute neurological disease, and persistent tachyarrhythmia.LACTIC ACID, [id number] 04:48:00 Test Item Value Reference Range Interpretation Comments LACTATE BLOOD VENOUS (2) (BEAKER) 1.1 mmol/L 0.5-2.2 (test code = 2872) URINALYSIS W/ REFLEX URINE [id number] 03:25:00 Test Item Value Reference Range Interpretation [...] /LPF = 514) SOURCE(BEAKER) (test code = 0582) OXYGEN SATURATION, [id number] 03:04:00 Test Item Value Reference Range Interpretation [...] 0.7 mmol/L 0.5-2.2 (test code = 2872) [id number] 23:52:00 Test Item Value Reference Range Interpretation Comments PROCALCITONIN (BEAKER) (test code 0.30 ng/mL <0.05 H = 3036) SEPSIS RISK (ng/mL)Low: 0.05-0.50Intermediate: 0.51-2.00High: >=2.01TROPONIN [id number] 23:40:00 Test Item Value Reference Range Interpretation [...] failure, acidosis, acute neurological disease, and persistent tachyarrhythmia.[id number] 23:34:00 Test Item Value Reference Range Interpretation Comments PHOSPHORUS (BEAKER) (test code = 3.4 mg/dL 2.3-4.7 604) [id number] 23:34:00 Test Item Value Reference Range Interpretation Comments MAGNESIUM (BEAKER) (test code = 2.2 mg/dL 1.6-2.6 627) BASIC METABOLIC [id number] 23:34:00 Test Item Value Reference Range Interpretation [...] APPLICABLE FOR DIALYSIS PATIEN TS. HEPATIC FUNCTION [id number] 23:34:00 Test Item Value Reference Range Interpretation [...] = 42 U/L 6-55 347) COMPREHENSIVE METABOLIC [id number] 23:34:00 Test Item Value Reference Range Interpretation [...] S NOT APPLICABLE FOR DIALYSIS PATIEN TS. [id number] 23:34:00 Test Item Value Reference Range Interpretation Comments LIPASE (BEAKER) (test code = 749) 38 U/L 8-78 [id number] 23:33:00 Test Item Value Reference Range Interpretation Comments PARTIAL THROMBOPLASTIN TIME 27.3 seconds 22.5-36.0 (BEAKER) (test code = 760) [id number] 23:33:00 Test Item Value Reference Range Interpretation Comments FIBRINOGEN LEVEL (BEAKER) (test 300 mg/dl 225-434 code = 658) PROTHROMBIN TIME/[id number] 23:32:00 Test Item Value Reference Range Interpretation [...] mechanical heart valves.CBC W/PLT COUNT & AUTO [id number] 23:22:00 Test Item Value Reference Range Interpretation [...] 0-1 PERCENT (BEAKER) (test code = 2801) BLOOD GAS, [id number] 22:27:00 Test Item Value Reference Range Interpretation [...] code = 1819) 21.0 % POCT-LACTIC ACID, [id number] 21:53:00 Test Item Value Reference Range Interpretation Comments POC-LACTIC ACID, 1.6 mmol/L 0.9-1.7 TESTED AT [facility] [address] VENOUS (BEAKER) (test [place] code = 2805) [address] TROPONIN [id number] 18:59:00 Test Item Value Reference Range Interpretation [...] acute neurological disease, and persistent tachyarrhythmia.HEPATITIS C [id number] 16:55:00 Test Item Value Reference Range Interpretation Comments HEPATITIS C ANTIBODY (BEAKER) (test Reactive Nonreactive A code = 367) POCT-GLUCOSE [id number] 12:03:00 Test Item Value Reference Range Interpretation Comments POC-GLUCOSE METER 169 mg/dL 70-110 H TESTED AT [facility] 67[address] (BEAKER) (test code = [place] 1538) [address] HEPATITIS B CORE ANTIBODY, [id number] 08:37:00 Test Item Value Reference Range Interpretation Comments HEPATITIS B CORE TOTAL ANTIBODY Reactive Nonreactive A (BEAKER) (test code = 497) POCT-GLUCOSE [id number] 08:14:00 Test Item Value Reference Range Interpretation Comments POC-GLUCOSE METER 105 mg/dL 70-110 TESTED AT [facility] 67[address] (BEAKER) (test code = [facility] 1538) [address] HEPATIC FUNCTION [id number] 07:10:00 Test Item Value Reference Range Interpretation [...] 67 U/L 6-55 H 347) BASIC METABOLIC [id number] 07:10:00 Test Item Value Reference Range Interpretation [...] FOR DIALYSIS PATIEN TS. HEPATITIS B SURFACE [id number] 06:58:00 Test Item Value Reference Range Interpretation Comments HEPATITIS B SURFACE ANTIBODY < mIU/mL <8.0 (BEAKER) (test code = 647) HEPATITIS B SURFACE [id number] 05:42:00 Test Item Value Reference Range Interpretation Comments HEPATITIS B SURFACE ANTIGEN (2) Nonreactive Nonreactive (BEAKER) (test code = 2585) HEPATITIS B CORE ANTIBODY, [id number] 05:42:00 Test Item Value Reference Range Interpretation Comments HEPATITIS B CORE IGM ANTIBODY Nonreactive Nonreactive (BEAKER) (test code = 645) CBC W/PLT COUNT & AUTO [id number] 04:56:00 Test Item Value Reference Range Interpretation [...] (test code = 2801) U/S, RENAL WITH [id number] 16:28:00Reason for exam:->hypertensionFINAL REPORT INDICATION: 57-year-old inpatient [...] noted on CT exam yesterday. Signed: Sukumar Rowellort Verified Date/Time: 05/11/2018 16:28:02 Reading Location: [address] Ultrasound Reading Room U/S, ABDOMINAL, [id number] 16:15:00Abdomen limited area? Add comment if clarification [...] or lesion also considered. Signed: Sukumar Rowell Verified Date/Time: 05/11/2018 16:15:41 Reading Location: [address] Ultrasound Reading Room CTA, CHEST, ABDOMEN - PELVIS, FOR [id number] 14:11:00Reason for exam:->Chest painAddendum BeginsREPORT STATUS:A Addendum: I agree with the previously described non vascular findings. Signed: Antionette Hinojosa MDReport Verified Date/Time: 05/11/2018 14:11:09 Reading Location: [facility] P048 Angio Body Reading RoomAddendum EndsFINAL [...] calcification is seen in the [place] coronary territories. Patient is post coronary artery [...] thoracic aorta. In the abdominal aorta, circumferential hqzi-as-frinqsql calcific atherosclerosis is seen. Overall, no ectasia [...] An addendum will be dictated by the Mortgage Loan Processor Radiologist regarding the nonvascular findings. Signed: Magno Augustineport Verified Date/Time: 05/10/2018 18:58:16 Reading Location: [place] [address] Cardiology MRI CALCIUM, [id number] 05:20:00 Test Item Value Reference Range Interpretation Comments CALCIUM IONIZED (BEAKER) (test 1.16 mmol/L 1.12-1.27 code = 698) PH, BLOOD (BEAKER) (test code = 7.40 1810) [id number] 04:29:00 Test Item Value Reference Range Interpretation Comments PHOSPHORUS (BEAKER) (test code = 3.5 mg/dL 2.3-4.7 604) [id number] 04:29:00 Test Item Value Reference Range Interpretation Comments MAGNESIUM (BEAKER) (test code = 2.4 mg/dL 1.6-2.6 627) COMPREHENSIVE METABOLIC [id number] 04:29:00 Test Item Value Reference Range Interpretation [...] PATIEN TS. CBC W/PLT COUNT & AUTO [id number] 03:58:00 Test Item Value Reference Range Interpretation [...] (BEAKER) (test code = 2801) U/S, RENAL, [id number] 13:00:00Reason for exam:->akiShould this be performed at [...] MDReport Verified Date/Time: 05/10/2018 13:00:32 Reading Location: [address] Ultrasound Reading Room CALCIUM, [id number] 06:58:00 Test Item Value Reference Range Interpretation Comments CALCIUM IONIZED (BEAKER) (test 1.08 mmol/L 1.12-1.27 L code = 698) PH, BLOOD (BEAKER) (test code = 7.35 1810) B-TYPE NATRIURETIC FACTOR (BNP)2018-05-10 05:49:00 Test Item Value Reference Range Interpretation Comments B-TYPE NATRIURETIC PEPTIDE (BEAKER) 153 pg/mL 0-100 H (test code = 700) [id number] 05:47:00 Test Item Value Reference Range Interpretation Comments MAGNESIUM (BEAKER) 2.4 mg/dL 1.6-2.6 Specimen slightly (test code = 627) hemolyzed [id number] 05:47:00 Test Item Value Reference Range Interpretation Comments PHOSPHORUS (BEAKER) 2.7 mg/dL 2.3-4.7 Specimen slightly (test code = 604) hemolyzed COMPREHENSIVE METABOLIC [id number] 05:47:00 Test Item Value Reference Range Interpretation [...] PATIEN TS. CBC W/PLT COUNT & AUTO [id number] 05:31:00 Test Item Value Reference Range Interpretation [...] (BEAKER) (test code = 2801) EOSINOPHIL SMEAR, [id number] 22:19:00 Test Item Value Reference Range Interpretation Comments EOSINOPHIL SMEAR, URINE (BEAKER) No EOS seen No EOS seen (test code = 1851) URINALYSIS W/ [id number] 22:13:00 Test Item Value Reference Range Interpretation [...] SOURCE(BEAKER) (test code = 2795) SODIUM, RANDOM [id number] 21:38:00 Test Item Value Reference Range Interpretation Comments SODIUM URINE (BEAKER) (test code = < meq/L 243) Reference Range: No NormalsPROTEIN, RANDOM [id number] 21:38:00 Test Item Value Reference Range Interpretation Comments PROTEIN, URINE (BEAKER) (test code = 15 mg/dL 0-14 H 1569) CREATININE, RANDOM [id number] 21:38:00 Test Item Value Reference Range Interpretation Comments CREATININE URINE (BEAKER) (test 173.4 mg/dL code = 375) Reference Range: No NormalsRAD, FOOT, 2 VIEWS, [id number] 13:59:00Reason for exam:->Pain and swelling of left foot after fall.FINAL REPORT Two views left foot Discussion: There is hallux valgus with degen erative changes. No visible acute fracture, dislocation, destructive lesion. Soft tissues are unremarkable. Signed: Darren Ariza Verified Date/Time: 05/09/2018 13:59:01 Reading Location: [address] Consult Reading Room PUL PERF IMAGING, PARTIC, [id number] 12:03:00FINAL REPORT PROCEDURE: V/Q LUNG SCAN CPT CODE: 25644 INDICATION: Acute chest pain, PE suspected, dyspnea, [...] Leticia Pimentel Verified Date/Time: 05/09/2018 12:03:05 ReadingLocation: [facility] [address] [facility] Med Reading Room FL, ESOPH, SWALLOW FUNCTION, WITH CINE OR [id number] 11:00:00Reason for exam:->chest painFINAL REPORT Esophagram History: [...] Verified Date/Time: 0 05/09/2018 11:00:37 Reading Location: [facility] C013X Ortho Consult Reading Room HEMOGLOBIN [id number] 10:45:00 Test Item Value Reference Range Interpretation Comments HEMOGLOBIN A1C (BEAKER) (test code = 6.3 % 4.3-6.1 H 368) BASIC METABOLIC [id number] 08:43:00 Test Item Value Reference Range Interpretation [...] FOR DIALYSIS PATIEN TS. Re-draw per labLIPID [id number] 08:42:00 Test Item Value Reference Range Interpretation [...] Borderline 130-159 High 160-189 Very High >=190LITHIUM [id number] 08:31:00 Test Item Value Reference Range Interpretation Comments LITHIUM LEVEL (BEAKER) (test code 0.4 mmol/L 0.8-1.2 L = 630) RAPID DRUG SCREEN, [id number] 07:54:00 Test Item Value Reference Range Interpretation [...] situations. Chain of custody not maintained. Some mewv-uxa-dczmfyt medications, as well as adulterants, may cause inaccurate results. Clinical correlation should be applied. A more comprehensive drug screen or confirmation of a detected drug may be performed upon request.CREATINE KINASE (CK), TOTAL AND [id number] 07:47:00 Test Item Value Reference Range Interpretation Comments CREATINE KINASE TOTAL (BEAKER) 161 U/L 29-200 (test code = 380) CREATINE KINASE-MB (BEAKER) (test 4.9 ng/mL 0.0-6.6 code = 750) CREATINE KINASE-MB INDEX (BEAKER) 3.0 % (test code = 395) CK-MB Reference Range:<6.7 Normal6.7-10.0 Borderline>10.0 AbnormalTROPONIN [id number] 07:47:00 Test Item Value Reference Range Interpretation [...] acute neurological disease, and persistent tachyarrhythmia.BASIC METABOLIC [id number] 04:56:00 Test Item Value Reference Range Interpretation [...] (test code = 413) CT, BRAIN, WITHOUT [id number] 21:00:00FINAL REPORT CT, BRAIN, WITHOUT CONTRAST INDICATION: [...] MDReport Verified Date/Time: 05/08/2018 21:00:20 Reading Location: [address] Reading Room B-TYPE NATRIURETIC FACTOR (BNP)2018-05-08 19:03:00 Test Item Value Reference Range Interpretation Comments B-TYPE NATRIURETIC PEPTIDE (BEAKER) 254 pg/mL 0-100 H (test code = 700) CREATINE KINASE (CK), TOTAL AND [id number] 19:02:00 Test Item Value Reference Range Interpretation Comments CREATINE KINASE TOTAL (BEAKER) 150 U/L 29-200 (test code = 380) CREATINE KINASE-MB (BEAKER) (test 5.5 ng/mL 0.0-6.6 code = 750) CREATINE KINASE-MB INDEX (BEAKER) 3.7 % (test code = 395) CK-MB Reference Range:<6.7 Normal6.7-10.0 Borderline>10.0 AbnormalTROPONIN [id number] 19:02:00 Test Item Value Reference Range Interpretation [...] acute neurological disease, and persistent tachyarrhythmia.BASIC METABOLIC [id number] 18:32:00 Test Item Value Reference Range Interpretation [...] PATIEN TS. CBC W/PLT COUNT & AUTO [id number] 18:28:00 Test Item Value Reference Range Interpretation [...] 0-1 PERCENT (BEAKER) (test code = 2801) [id number] 18:15:00 Test Item Value Reference Range Interpretation Comments PARTIAL THROMBOPLASTIN TIME 30.0 seconds 22.5-36.0 (BEAKER) (test code = 760) Prior to initiating heparinXR Fluoroscopy in Imaging per [id number] 12:25:17 Patient: ALHAJI FARAH Date/Time04/05/2018 11:30 CDTReason [...]
[2020-06-14 02:09] LABS: Absolute Lymphocytes (CBC) 2.3 K/uL (0.7-4.9); Basophils % 0.8 % (0-1.3); Hematocrit 35.9 % (39.6-49.0); Lymphocytes % 17.5 % (15.3-44.8); MPV 9.9 fL (7.6-11.3); Protime INR 1.07; RBC Red Blood Cell Count 3.82 M/uL (4.33-5.43)
[2020-06-14 02:27] LABS: ALT/SGPT 40 U/L (12-78); AST/SGOT 28 U/L (15-37); Albumin 3.4 g/dL (3.4-5.0); Alkaline Phosphatase 102 U/L (45-117); BUN Blood Urea Nitrogen 19 mg/dL (7-18); Bicarbonate 26 mmol/L (21-32); Bilirubin Direct 0.2 mg/dL (0-0.2); Bilirubin Total 0.4 mg/dL (0.2-1.0); Glucose Level 117 mg/dL (74-106); Magnesium 2.7 mg/dL (1.8-2.4); Potassium 4.3 mmol/L (3.5-5.1); Protein, Total 8.5 g/dL (6.4-8.2); Sodium Level 140 mmol/L (136-145); Troponin (Emerg Dept Use Only) < 0.02 ng/mL (0.0-0.045)
[2020-06-14 02:29] LABS: NT PRO-BNP 6595 pg/mL (<125)
--- NOTE | 2020-06-14 02:43 | EDPHYS ---
Physician Documentation [facility] Name: Blayne Macias Age: 59 yrs Sex: Male : 1960 Arrival Date: 06/14/2020 Time: 00:40 Bed 6 Private MD: ED Physician Leonid Coronado HPI: 06/14 01:09 This 59 yrs old Male presents to ER via EMS with complaints of Shortness Of mh7 Breath. 01:09 The patient has shortness of breath at rest. Onset: The symptoms/episode began/occurred mh7 at 22:00. Duration: The symptoms are intermittent, with no pattern. The patient's shortness of breath is aggravated by nothing, is alleviated by nothing. Associated signs and symptoms: Pertinent positives: chest pain, Pertinent negatives: non-productive cough, productive cough, diaphoresis, dizziness, fever, hemoptysis, loss of consciousness, nausea, numbness in extremities, visual changes, vomiting. Severity of symptoms: At their worst the symptoms were moderate today, in the emergency department the symptoms have improved moderately. Historical: - Allergies: 00:51 Codeine; jb4 00:51 PENICILLINS; jb4 00:51 Morphine; jb4 - Home Meds: 00:51 amiodarone 200 mg Oral tab 0.5 tab 2 times per day [Active]; amitriptyline 50 mg Oral jb4 tab 1 tab once daily [Active]; amlodipine 10 mg tab 1 tab once daily [Active]; aspirin 81 mg Oral chew 1 tab once daily [Active]; atorvastatin 20 mg Oral tab 1 tab once daily [Active]; citalopram 20 mg tab 1 tab once daily [Active]; carvedilol 25 mg Oral tab 1 tab 2 times per day [Active]; clopidogrel 75 mg Oral tab 1 tab once daily [Active]; hydrochlorothiazide 12.5 mg Oral tab 1 tab once daily [Active]; isosorbide mononitrate 60 mg Oral Tb24 1 tab once daily [Active]; lithium carbonate 600 mg Oral cap 1 cap nightly [Active]; losartan 25 mg Oral tab 1 tab once daily [Active]; mometasone-formoterol inhalation [Active]; nitroglycerin 0.4 mg SL subl 1 tab [Active]; Norvasc 10 mg Oral tab once daily [Active]; potassium chloride 20 mEq Oral TbER 1 tab once daily [Active]; simvastatin 40 mg Oral tab 1 tab once daily [Active]; ranolazine 1000 mg Oral [Active]; - PMHx: 00:51 "electrical stimulator"; Atrial Fib; Back pain; Bipolar disorder; CAD; CHF; chronic jb4 back pain; Cirrhosis; COPD; Hepatitis; High Cholesterol; Hypertension; Pneumonia; - PSHx: 00:51 back surgery; jb4 - Immunization history:: Adult Immunizations up to date. - Social history:: Smoking status: Patient/guardian denies using tobacco, the patient reports quitting approximately 2 years ago, Patient/guardian denies using alcohol, street drugs. ROS: 01:09 Constitutional: Negative for fever, chills, and weight loss, Eyes: Negative for injury, mh7 pain, redness, and discharge, ENT: Negative for injury, pain, and discharge, Neck: Negative for injury, pain, and swelling, Abdomen/GI: Negative for abdominal pain, nausea, vomiting, diarrhea, and constipation, Back: Negative for injury and pain, : Negative for injury, bleeding, discharge, and swelling, MS/Extremity: Negative for injury and deformity, Skin: Negative for injury, rash, and discoloration, Neuro: Negative for headache, weakness, numbness, tingling, and seizure, Psych: Negative for depression, anxiety, suicide ideation, homicidal ideation, and hallucinations, Allergy/Immunology: Negative for hives, rash, and allergies, Endocrine: Negative for neck swelling, polydipsia, polyuria, polyphagia, and marked weight changes, Hematologic/Lymphatic: Negative for swollen nodes, abnormal bleeding, and unusual bruising. Exam: 01:09 Head/Face: Normocephalic, atraumatic. Neck: Trachea midline, no thyromegaly or masses mh7 palpated, and no cervical lymphadenopathy. Supple, full range of motion without nuchal rigidity, or vertebral point tenderness. No Meningismus. Chest/axilla: Normal chest wall appearance and motion. Nontender with no deformity. No lesions are appreciated. Cardiovascular: Regular rate and rhythm with a normal S1 and S2. No gallops, murmurs, or rubs. Normal PMI, no JVD. No pulse deficits. 01:09 Abdomen/GI: Soft, non-tender, with normal bowel sounds. No distension or tympany. No guarding or rebound. No evidence of tenderness throughout. Back: No spinal tenderness. No costovertebral tenderness. Full range of motion. Skin: Warm, dry with normal turgor. Normal color with no rashes, no lesions, and no evidence of cellulitis. MS/ Extremity: Pulses equal, no cyanosis. Neurovascular intact. Full, normal range of motion. Neuro: Awake and alert, GCS 15, oriented to person, place, time, and situation. Cranial nerves II-XII grossly intact. Motor strength 5/5 in all extremities. Sensory grossly intact. Cerebellar exam normal. Normal gait. Psych: Awake, alert, with orientation to person, place and time. Behavior, mood, and affect are within normal limits. 01:09 Constitutional: The patient appears in no acute distress, alert, awake, anxious, uncomfortable. 01:09 Respiratory: the patient does not display signs of respiratory distress, Respirations: normal, Breath sounds: bronchial sounds, that are mild, are scattered, Respiratory rate: 16 Vital Signs: 00:44 BP 192 / 93; Pulse 70; Resp 16; Temp 98.9(O); Pulse Ox 97% on R/A; Weight 65.77 kg (R); jb4 Height 5 ft. 9 in. (175.26 cm); Pain 8/10; 01:30 BP 199 / 96; Pulse 72; Resp 16; Pulse Ox 97% on R/A; jb4 04:00 BP 180 / 83; Pulse 70; Resp 16; Pulse Ox 97% on 2 lpm NC; jb4 00:44 Body Mass Index 21.41 (65.77 kg, 175.26 cm) 4 MDM: 01:01 Patient medically screened. [facility] 02:39 Differential diagnosis: Anemia asthma, Bronchitis CHF exacerbation, Chronic Obstructive 7 Pulmonary Disease Myocardial Infarction pneumonia, Pneumothorax pulmonary edema. Data reviewed: vital signs, nurses notes, EMS record, lab test result(s), cardiac enzymes, CBC, electrolytes, urinalysis, EKG, radiologic studies, plain films. Data interpreted: Pulse oximetry: on room air is 97 %. Interpretation: normal. Counseling: I had a detailed discussion with the patient and/or guardian regarding: the historical points, exam findings, and any diagnostic results supporting the discharge/admit diagnosis, the presence of at least one elevated blood pressure reading (>120/80) during this emergency department visit, lab results, radiology results, the need for further work-up and treatment in the hospital. 02:39 Response to treatment: the patient's symptoms have mildly improved after treatment. [facility] 06/14 01:01 Order name: Basic Metabolic Panel; Complete Time: 02: [facility] 06/14 01:01 Order name: CBC with Diff; Complete Time: 02: [facility] 06/14 01:01 Order name: LFT's; Complete Time: [facility] 06/14 01:01 Order name: Magnesium; Complete Time: : [facility] 06/14 01:01 Order name: NT PRO-BNP; Complete Time: : [facility] 06/14 01:01 Order name: PT-INR; Complete Time: [facility] 06/14 01:01 Order name: Troponin (emerg Dept Use Only); Complete Time: : [facility] 06/14 01:01 Order name: XRAY Chest (1 view) [facility] 06/14 02:16 Order name: Urine Dipstick--Ancillary (enter results) [facility] 06/14 08:52 Order name: [facility] 06/14 09:50 Order name: SARS-COV-2 RT PCR [facility] 06/14 01:01 Order name: EKG; Complete Time: 01: [facility] 06/14 01:01 Order name: Cardiac monitoring; Complete Time: 02: [facility] 06/14 01:01 Order name: EKG - Nurse/Tech; Complete Time: 02: [facility] 06/14 01:01 Order name: IV Saline Lock; Complete Time: 02: [facility] 06/14 01:01 Order name: Labs collected and sent; Complete Time: 02: [facility] 06/14 01:01 Order name: O2 Per Protocol; Complete Time: 02: [facility] 06/14 01:01 Order name: O2 Sat Monitoring; Complete Time: 02: [facility] 06/14 01:02 Order name: Urine Dipstick-Ancillary (obtain specimen); Complete Time: 04:00 [facility] Administered Medications: 02:35 CANCELLED (Physician Discretion): Lasix 40 mg IVP once [facility] 02:50 Drug: Lasix 20 mg Route: IVP; Site: right antecubital; jb4 02:50 Drug: Aspirin Chewable Tablet 324 mg Route: PO; jb4 02:55 Drug: Nitro-Bid Ointment 2 % 1 inches Route: Transdermal; Site: anterior chest wall; jb4 Disposition: 06:52 Co-signature as Attending Physician, Leonid Coronado MD. [facility] Disposition: 06/14/20 02:42 Hospitalization ordered by Herbert Leal for Observation. Preliminary diagnosis are Chest pain, unspecified, CHF Exacerbation. - Bed requested for Telemetry/MedSurg (observation). - Status is Observation. ph - Condition is Stable. - Problem is new. - Symptoms have improved. Signatures: Dispatcher [employer] EDMS Letty Mtz Tonya, RN RN tl1 rBooke Bhatti RN RN ph Wilfrido Mcnulty RN RN 4 Leonid Coronado MD MD 7 Corrections: (The following items were deleted from the chart) 02:35 02:33 Lasix 40 mg IVP once ordered. [place] [id number] 03:46 02:42 Hospitalization Ordered by Herbert Leal MD for Observation. Preliminary tl1 diagnosis is Chest pain, unspecified; CHF Exacerbation. Bed requested for Telemetry/MedSurg (observation). Status is Observation. Condition is Stable. Problem is new. Symptoms have improved. mh7 13:55 03:46 06/14/2020 02:42 Hospitalization Ordered by Herbert Leal MD for Observation. bd Preliminary diagnosis is Chest pain, unspecified; CHF Exacerbation. Bed requested for [facility] ER HOLD. Status is Observation. Condition is Stable. Problem is new. Symptoms have improved. tl1 14:55 13:55 06/14/2020 02:42 Hospitalization Ordered by Herbert Leal MD for Observation. ph Preliminary diagnosis is Chest pain, unspecified; CHF Exacerbation. Bed requested for Telemetry/MedSurg (observation). Status is Observation. Condition is Stable. Problem is new. Symptoms have improved. bd
--- NOTE | 2020-06-14 02:43 | ER ---
Nurse's Notes [facility] Name: Blayne Macias Age: 59 yrs Sex: Male : 1960 Arrival Date: 06/14/2020 Time: 00:40 Bed 6 Private MD: Diagnosis: Chest pain, unspecified;CHF Exacerbation Presentation: 06/14 00:44 Chief complaint: EMS states: PT reports shortness of breath and asking for Oxygen. jb4 Chest pressure that radiates to his left shoulder. Sating 98% on RA, given O2 for comfort measures. Coronavirus screen: Client denies travel out of the [place] in the last 14 days. Client presents with at least one sign or symptom that may indicate coronavirus-19. Provider contacted for isolation considerations. Ebola Screen: No symptoms or risks identified at this time. Initial Sepsis Screen: Does the patient meet any 2 criteria? No. Patient's initial sepsis screen is negative. Does the patient have a suspected source of infection? No. Patient's initial sepsis screen is negative. Risk Assessment: Do you want to hurt yourself or someone else? Patient reports no desire to harm self or others. Onset of symptoms was June 14, 2020. Transition of care: patient was not received from another setting of care. 00:44 Method Of Arrival: EMS: [facility] jb4 00:44 Acuity: SENTHIL 3 jb4 Triage Assessment: 00:40 General: Appears in no apparent distress. uncomfortable. Respiratory: Reports shortness jb4 of breath at rest Onset: The symptoms/episode began/occurred gradually, the patient has mild shortness of breath. Historical: - Allergies: 00:51 Codeine; jb4 00:51 PENICILLINS; jb4 00:51 Morphine; jb4 - Home Meds: 00:51 amiodarone 200 mg Oral tab 0.5 tab 2 times per day [Active]; amitriptyline 50 mg Oral jb4 tab 1 tab once daily [Active]; amlodipine 10 mg tab 1 tab once daily [Active]; aspirin 81 mg Oral chew 1 tab once daily [Active]; atorvastatin 20 mg Oral tab 1 tab once daily [Active]; citalopram 20 mg tab 1 tab once daily [Active]; carvedilol 25 mg Oral tab 1 tab 2 times per day [Active]; clopidogrel 75 mg Oral tab 1 tab once daily [Active]; hydrochlorothiazide 12.5 mg Oral tab 1 tab once daily [Active]; isosorbide mononitrate 60 mg Oral Tb24 1 tab once daily [Active]; lithium carbonate 600 mg Oral cap 1 cap nightly [Active]; losartan 25 mg Oral tab 1 tab once daily [Active]; mometasone-formoterol inhalation [Active]; nitroglycerin 0.4 mg SL subl 1 tab [Active]; Norvasc 10 mg Oral tab once daily [Active]; potassium chloride 20 mEq Oral TbER 1 tab once daily [Active]; simvastatin 40 mg Oral tab 1 tab once daily [Active]; ranolazine 1000 mg Oral [Active]; - PMHx: 00:51 "electrical stimulator"; Atrial Fib; Back pain; Bipolar disorder; CAD; CHF; chronic jb4 back pain; Cirrhosis; COPD; Hepatitis; High Cholesterol; Hypertension; Pneumonia; - PSHx: 00:51 back surgery; jb4 - Immunization history:: Adult Immunizations up to date. - Social history:: Smoking status: Patient/guardian denies using tobacco, the patient reports quitting approximately 2 years ago, Patient/guardian denies using alcohol, street drugs. Screenin:44 Abuse screen: Denies threats or abuse. Nutritional screening: No deficits noted. jb4 Tuberculosis screening: No symptoms or risk factors identified. Fall Risk None identified. Assessment: 00:40 General: Appears in no apparent distress. uncomfortable, Behavior is calm, cooperative, jb4 appropriate for age. Pain: Complains of pain in back and chest Pain radiates to anterior aspect of left shoulder Pain currently is 8 out of 10 on a pain scale. Quality of pain is described as pressure. Neuro: Level of Consciousness is awake, alert, obeys commands, Oriented to person, place, time, situation. Cardiovascular: Patient's skin is warm and dry. Rhythm is sinus rhythm. Respiratory: Airway is patent Respiratory effort is even, unlabored, Respiratory pattern is regular, symmetrical, Breath sounds are clear bilaterally. GI: No signs and/or symptoms were reported involving the gastrointestinal system. : No signs and/or symptoms were reported regarding the genitourinary system. EENT: No signs and/or symptoms were reported regarding the EENT system. Derm: Skin is intact, Skin is pink, warm \\T\\ dry. Musculoskeletal: Circulation, motion, and sensation intact. Range of motion: intact in all extremities. 01:30 Reassessment: Patient and/or family updated on plan of care and expected duration. Pain jb4 level reassessed. Patient is alert, oriented x 3, equal unlabored respirations, skin warm/dry/pink. PT reports shortness of breath, oxygen decreased from 97% to 90% on RA. Provider notified, placed pt on 2L NC. 02:00 Reassessment: Patient appears in no apparent distress at this time. Patient and/or jb4 family updated on plan of care and expected duration. Pain level reassessed. Patient is alert, oriented x 3, equal unlabored respirations, skin warm/dry/pink. PT is now satting at 97 on 2L NC. Denies SOB. 03:00 Reassessment: Patient appears in no apparent distress at this time. Patient and/or jb4 family updated on plan of care and expected duration. Pain level reassessed. Patient is alert, oriented x 3, equal unlabored respirations, skin warm/dry/pink. Talking to admitting provider. 04:00 Reassessment: Patient appears in no apparent distress at this time. Patient and/or jb4 family updated on plan of care and expected duration. Pain level reassessed. Patient is alert, oriented x 3, equal unlabored respirations, skin warm/dry/pink. Vital Signs: 00:44 BP 192 / 93; Pulse 70; Resp 16; Temp 98.9(O); Pulse Ox 97% on R/A; Weight 65.77 kg (R); jb4 Height 5 ft. 9 in. (175.26 cm); Pain 8/10; 01:30 BP 199 / 96; Pulse 72; Resp 16; Pulse Ox 97% on R/A; jb4 04:00 BP 180 / 83; Pulse 70; Resp 16; Pulse Ox 97% on 2 lpm NC; jb4 00:44 Body Mass Index 21.41 (65.77 kg, 175.26 cm) [facility] ED Course: 00:40 Patient arrived in ED. cl3 00:40 Patient has correct armband on for positive identification. Bed in low position. Call [facility] light in reach. Side rails up X 1. campus monitor on. Pulse ox on. NIBP on. 00:41 Leonid Coronado MD is Attending Physician. 7 00:44 Wilfrido Mcnulty, RN is Primary Nurse. jb4 00:45 Triage completed. jb4 00:51 Arm band placed on right wrist. jb4 01:39 XRAY Chest (1 view) In Process Unspecified. EDMS 01:50 Initial lab(s) drawn, by me, sent to lab. Inserted saline lock: 18 gauge in right jb4 antecubital area, using aseptic technique. Blood collected. 02:41 Herbert Leal MD is Hospitalizing Provider. 7 04:16 No provider procedures requiring assistance completed. Patient admitted, IV remains in jb4 place. Administered Medications: 02:35 CANCELLED (Physician Discretion): Lasix 40 mg IVP once mh7 02:50 Drug: Lasix 20 mg Route: IVP; Site: right antecubital; jb4 02:50 Drug: Aspirin Chewable Tablet 324 mg Route: PO; jb4 02:55 Drug: Nitro-Bid Ointment 2 % 1 inches Route: Transdermal; Site: anterior chest wall; jb4 Output: 04:11 Urine: 1875ml (Voided); Total: 1875ml. jb4 Outcome: 02:42 Decision to Hospitalize by Provider. mh7 04:16 Admitted to ER Hold. Please see [facility] for further documentation. jb4 04:16 Condition: stable 04:16 Discharge instructions given to patient, Instructed on the need for admit. 14:55 Patient left the ED. ph Signatures: Dispatcher [employer] Brooke Mallory RN RN Wilfrido Mcnulty RN RN 4 Alexia Martin 3 Leonid Coronado MD MD [facility] Corrections: (The following items were deleted from the chart) 00:52 00:44 Coronavirus screen: Client denies travel out of the [place] in the last 14 days. At jb4 this time, the client does not indicate any symptoms associated with coronavirus-19. jb4 05:41 02:00 Reassessment: Patient appears in no apparent distress at this time. Patient jb4 and/or family updated on plan of care and expected duration. Pain level reassessed. Patient is alert, oriented x 3, equal unlabored respirations, skin warm/dry/pink. jb4
[2020-06-14] MEDS ORDERED: FUROSEMIDE 20 MG/ 2ML VIAL ONE (02:52)
[2020-06-14] MEDS ORDERED: ASPIRIN 81 MG CHEWABLE TABLET ONE (02:52)
[2020-06-14 02:59] LABS: Urine Blood NEGATIVE (NEG); Urine Glucose NEGATIVE (NEG); Urine Protein NEGATIVE (NEG); Urine pH 7.5 (5.0-7.0)
[2020-06-14] MEDS ORDERED: NITROGLYCERIN 1 GM PKT TD ONE (03:02)
--- NOTE | 2020-06-14 03:05 | P.HP ---
Certification for Inpatient Patient admitted to: Observation With expected LOS: <2 Midnights Patient will require the following post-hospital care: None Practitioner: I am a practitioner with admitting privileges, knowledge of patient current condition, hospital course, and medical plan of care. Services: Services provided to patient in accordance with Admission requirements found in Title 42 Section 412.3 of the Code of Federal Regulations <Gilberto Nevarez - Last Filed: 06/14/20 02:58> Patient History Date of Service: 06/14/20 Primary Care Provider: Dr. Heard Reason for admission: CHF exacerbation History of Present Illness: 59-year-old male with medical history of chronic diastolic congestive heart failure, coronary artery disease, chronic back pain, cirrhosis, COPD, hepatitis, hyperlipidemia, hypertension, atrial fibrillation, bipolar disorder presents emergency department for shortness of breath. Patient reports he has had increasing shortness of breath of the course last few days. During his evaluation in the emergency department patient is found to have volume overload as evidenced by chest x-ray and elevated BNP level. Patient reports he is feeling also subjective shortness of breath. Patient also noted to have hypertensive urgency with blood pressures around 190 systolic. Patient reports she is compliant with home medications. ED provider wishes to admit patient for further evaluation and management. When I saw the patient in the emergency department he was awake, alert, or x4. Patient reporting back pain that is chronic in nature secondary to a surgery he had in May. Patient be admitted under observation status. - Past Medical/Surgical History Diabetic: No -: Chronic back pain, Pain management-Dr. Connolly -: HTN -: CAD, CABG times 2 vessels in December 2015 -: COPD -: Exposure to asbestosis -: Bipolar disorder -: Hyperlipidemia -: Severe sleep apnea -: Chronic pain syndrome -: CHF -: afib -: pneumonia -: Right Leg surgery -: Back surgery -: Cholecystectomy -: Cardiac catheterization -: CABG- Double bypass 12/2015 -: Neck Surgery Psychosocial/ Personal History: Single, Children-1, Work-Disabled due to back. - Family History Mother -: Cancer Father -: Heart disease, Cancer - Social History Smoking Status: Former smoker Alcohol use: Yes CD- Drugs: No Caffeine use: Yes Place of Residence: Home <Gilberto Nevarez - Last Filed: 06/14/20 02:58> Date of Service: 06/14/20 <Jac Leal - Last Filed: 06/14/20 17:54> Allergies Penicillins Allergy (Intermediate, Verified 04/15/19 21:16) Hives/Rash codeine [From Tylenol-Codeine] Allergy (Verified 04/15/19 21:16) Itching Home Medications: Amiodarone HCl 100 mg PO BID 03/29/20 Amlodipine [Norvasc*] 10 mg PO DAILY 03/29/20 Atorvastatin Calcium [Lipitor*] 20 mg PO BEDTIME 03/29/20 Citalopram [Celexa*] 20 mg PO DAILY 03/29/20 Losartan Potassium [Cozaar*] 25 mg PO DAILY 03/29/20 Potassium Chloride [Klor-Con] 20 meq PO DAILY 03/29/20 Clopidogrel Bisulfate [Plavix*] 75 mg PO DAILY tablet 04/03/20 [place] Carbonate [Lithotabs *] 600 mg PO BEDTIME tab 04/03/20 Carvedilol [Coreg] 25 mg PO BID 06/14/20 Hydralazine [Apresoline*] 50 mg PO TID 06/14/20 Isosorbide Mononitrate [Isosorbide Mononitrate ER] 60 mg PO DAILY 06/14/20 Review of Systems Musculoskeletal: Back Pain <Gilberto Nevarez - Last Filed: 06/14/20 02:58> Physical Examination - Physical Exam General: Alert, In no apparent distress HEENT: Atraumatic, PERRLA, Mucous membr. moist/pink, EOMI, Sclerae nonicteric Neck: Supple, Without JVD or thyroid abnormality Respiratory: Clear to auscultation bilaterally, Normal air movement Cardiovascular: No edema, Normal S1 S2 Capillary refill: <2 Seconds Gastrointestinal: Normal bowel sounds, No tenderness Musculoskeletal: No erythema, No tenderness Integumentary: No rashes Neurological: Normal gait, Normal speech, Normal strength at 5/5 x4 extr, Normal tone, Normal affect Lymphatics: No axilla or inguinal lymphadenopathy - Studies Laboratory Data (last 24 hrs) 06/14/20 01:55: PT 12.6 H, INR 1.07 06/14/20 01:55: WBC 13.0 H, Hgb 11.9 L, Hct 35.9 L, Plt Count 300 06/14/20 01:55: Sodium 140, Potassium 4.3, BUN 19 H, Creatinine 1.23, Glucose 117 H, Magnesium 2.7 H, Total Bilirubin 0.4, AST 28, ALT 40, Alkaline Phosphatase 102 <Gilberto Nevarez - Last Filed: 06/14/20 02:58> - Studies Laboratory Data (last 24 hrs) 06/14/20 01:55: PT 12.6 H, INR 1.07 06/14/20 01:55: WBC 13.0 H, Hgb 11.9 L, Hct 35.9 L, Plt Count 300 06/14/20 01:55: Sodium 140, Potassium 4.3, BUN 19 H, Creatinine 1.23, Glucose 117 H, Magnesium 2.7 H, Total Bilirubin 0.4, AST 28, ALT 40, Alkaline Phosphatase 102 <Jac Leal - Last Filed: 06/14/20 17:54> Assessment and Plan - Plan Assessment Acute on chronic diastolic congestive heart failure Hypertensive urgency-underlying primary hypertension Chronic atrial fibrillation on amiodarone Hyperlipidemia Bipolar disorder Chronic back pain Cirrhosis secondary to hepatitis Plan Acute on chronic diastolic congestive heart failure: Continue IV diuresis, last echocardiogram earlier this year shows normal ejection fraction. Patient also had a heart catheterization approximately 2 months ago. Recommend 1.5 L per day fluid restrictions. Oxygen per nasal cannula as needed. DVT prophylaxis with heparin 5000 units subcutaneous twice daily. Have continued patient's home medications. Hypertensive urgency-underlying primary hypertension: Have continued all patient's home medications and added p.r.n. medications for blood pressure. Will continue to monitor patient's blood pressure closely. Medications may need to be adjusted by primary care doctor. Chronic atrial fibrillation on amiodarone: Continue patient's home medications. Patient to remain on telemetry throughout this hospitalization. Hyperlipidemia: Home medications have been continued. Bipolar disorder: Home medications have been continued. Chronic back pain: Continue with [place] as patient is not allergic and reports having been taking this for approximately 9 years. Cirrhosis secondary to hepatitis: Appears stable at this time, no icterus or jaundice noted. No abdominal distention noted. Will continue to monitor. Discharge Plan: Home Plan to discharge in: 24 Hours - Advance Directives Does patient have a Living Will: No Does patient have a Durable POA for Healthcare: No - Code Status/Comfort Care Code Status Assessed: Yes (Patient is full code) Critical Care: No Time Spent Managing Pts Care (In Minutes): 55 <Gilberto Nevarez - Last Filed: 06/14/20 02:58> Physician Review: Patient Assessed, Agree with Above Assessment and Plan Physician Review Additional Text: Patient seen and examined and findings were discussed Agree with the assessment and plan as documented by NIELS <Jac Leal - Last Filed: 06/14/20 17:54>
[2020-06-14] MEDS ORDERED: METOPROLOL TARTRATE 5 MG/5 ML INJ IV PRN (04:02)
[2020-06-14] MEDS ORDERED: CLOPIDOGREL 75 MG TABLET PO ONE (04:02)
[2020-06-14] MEDS ORDERED: MORPHINE 2 MG/ML SYR IV ONE (04:02)
[2020-06-14] MEDS ORDERED: ONDANSETRON 4 MG/2 ML VIAL IV PRN (04:02)
[2020-06-14] MEDS ORDERED: CLOPIDOGREL 75 MG TABLET ONE (04:35)
[2020-06-14] MEDS ORDERED: MORPHINE 2 MG/ML SYR ONE ×2 (04:35→12:27)
[2020-06-14 04:43] VITALS: BMI 21.4
[2020-06-14] MEDS ORDERED: METOPROLOL TARTRATE 5 MG/5 ML INJ IV ONE (05:04)
[2020-06-14] MEDS: HYDRALAZINE HCL 20 MG/ML VIAL IV PRN (05:39)
[2020-06-14] MEDS ORDERED: HYDRALAZINE HCL 20 MG/ML VIAL ONE (05:42)
[2020-06-14] MEDS: carvediloL 25 MG TAB PO SCH ×2 (06:00→16:09)
[2020-06-14] MEDS ORDERED: carvediloL 6.25 MG TAB ONE (06:17)
[2020-06-14] MEDS: HYDROCODONE/APAP 10/325 TAB PO PRN (06:27)
[2020-06-14] MEDS ORDERED: HYDROCODONE/APAP 10/325 TAB ONE (06:36)
[2020-06-14] MEDS ORDERED: AMIODARONE HCL 200 MG TAB ONE (09:01)
[2020-06-14] MEDS ORDERED: FUROSEMIDE 40 MG/4 ML VIAL ONE (09:01)
[2020-06-14] MEDS ORDERED: HEPARIN 5000 UNIT/ML 1 ML VIAL ONE (09:01)
[2020-06-14] MEDS: AMLODIPINE 10 MG TAB PO SCH (10:00)
[2020-06-14] MEDS: ISOSORBIDE MONO SR 60 MG TAB PO SCH (10:00)
[2020-06-14] MEDS: FUROSEMIDE 40 MG/4 ML VIAL IV SCH ×2 (10:00→16:07)
[2020-06-14] MEDS: LOSARTAN POTASSIUM 50 MG TABLET PO SCH (10:00)
[2020-06-14] MEDS: CITALOPRAM 10 MG TABLET PO SCH (10:00)
[2020-06-14] MEDS: HYDRALAZINE HCL 25 MG TABLET PO SCH ×3 (10:00→20:22)
[2020-06-14] MEDS: AMIODARONE HCL 200 MG TAB PO SCH ×2 (10:00→20:22)
[2020-06-14] MEDS: HEPARIN 5000 UNIT/ML 1 ML VIAL SQ SCH ×2 (10:00→20:23)
--- NOTE | 2020-06-14 10:08 | RAD REPORT ---
EXAM DESCRIPTION: X-ray single view chest. CLINICAL HISTORY: 59 years Male, SOB COMPARISON: CT chest performed on 03/03/2020 TECHNIQUE: Single portable x-ray view of the chest performed on 06/14/2020 at 1:14 AM FINDINGS: The lungs are well expanded. There is diffuse prominence of the interstitial markings thro ughout the lungs which may be due to vascular congestion or interstitial pneumonitis. Superimposed pa renchymal fibrosis is not excluded. There is no evidence of a pneumothorax. The lateral costophrenic sulci are clear. The cardiac silhouette is normal in size and configuration. There are remote postsurgical changes of the mediastinum. The mediastinal contours are normal. No acute osseous abnormality is identified. There are remote postsurgical changes of the cervical spi ne. No focal soft tissue abnormalities are seen. Lines and tubes: None. IMPRESSION: 1. Diffuse prominence of the interstitial markings throughout the lungs which may be due to vascular congestion or interstitial pneumonitis. 2. Remote median sternotomy. Electronically signed by: Sherice Eddy DO 06/14/2020 1:57 AM CDT Due to temporary technical issues with the PACS/Fluency reporting system, reports are being signed by the in house radiologist without review as a courtesy to ensure prompt reporting. The interpreting r adiologist is fully responsible for the content of the report.
[2020-06-14] MEDS: MORPHINE 2 MG/ML SYR IV PRN ×3 (12:20→20:23)
[2020-06-14] MEDS: ATORVASTATIN 20 MG TAB PO SCH (20:38)
[2020-06-14] MEDS: LITHIUM CARBONATE 300 MG TAB PO SCH (21:00)
[2020-06-15] MEDS: FUROSEMIDE 40 MG/4 ML VIAL IV SCH ×3 (00:34→16:22)
[2020-06-15] MEDS: MORPHINE 2 MG/ML SYR IV PRN ×3 (00:34→09:12)
[2020-06-15] MEDS: HYDRALAZINE HCL 20 MG/ML VIAL IV PRN (05:06)
[2020-06-15] MEDS: carvediloL 25 MG TAB PO SCH ×2 (05:06→17:13)
[2020-06-15 06:17] LABS: Absolute Lymphocytes (CBC) 2.8 K/uL (0.7-4.9); Basophils % 0.9 % (0-1.3); Hematocrit 39.7 % (39.6-49.0); Lymphocytes % 28.5 % (15.3-44.8); RBC Red Blood Cell Count 4.31 M/uL (4.33-5.43)
[2020-06-15 06:32] LABS: Potassium 3.4 mmol/L (3.5-5.1)
[2020-06-15] MEDS ORDERED: POTASSIUM CL SA 10 MEQ TAB PO ONE (09:00)
[2020-06-15] MEDS: HYDRALAZINE HCL 25 MG TABLET PO SCH ×3 (09:08→21:15)
[2020-06-15] MEDS: LOSARTAN POTASSIUM 50 MG TABLET PO SCH (09:08)
[2020-06-15] MEDS: AMIODARONE HCL 200 MG TAB PO SCH ×2 (09:08→21:15)
[2020-06-15] MEDS: AMLODIPINE 10 MG TAB PO SCH (09:09)
--- NOTE | 2020-06-15 09:09 | P.PN ---
Subjective Date of Service: 06/15/20 Primary Care Provider: Dr. Heard Chief Complaint: CHF exacerbation Subjective: No new changes Review of Systems 10-point ROS is otherwise unremarkable Physical Examination - Vital Signs Temperature: 97.9 F Blood Pressure: 157/96 Pulse: 75 Respirations: 16 Pulse Ox (%): 96 - Physical Exam General: Alert, In no apparent distress HEENT: Atraumatic, Normocephalic Neck: Supple Respiratory: Clear to auscultation bilaterally Cardiovascular: Regular rate/rhythm, Normal S1 S2 Capillary refill: <2 Seconds Gastrointestinal: Soft and benign, W/out hepatosplenomegaly Musculoskeletal: No clubbing Integumentary: No rashes Neurological: Normal speech, Normal strength at 5/5 x4 extr Lymphatics: No axilla or inguinal lymphadenopathy Assessment & Plan Physician Review: Patient Assessed, Agree with Above Assessment and Plan Physician Review Additional Text: Acute on chronic diastolic congestive heart failure Hypertensive urgency-underlying primary hypertension Chronic atrial fibrillation on amiodarone Hyperlipidemia Bipolar disorder Chronic back pain Cirrhosis secondary to hepatitis Plan Acute on chronic diastolic congestive heart failure: Continue IV diuresis, last echocardiogram earlier this year shows normal ejection fraction. Patient also had a heart catheterization approximately 2 months ago. Recommend 1.5 L per day fluid restrictions. Oxygen per nasal cannula as needed. DVT prophylaxis with heparin 5000 units subcutaneous twice daily. Have continued patient's home medications. Hypertensive urgency-underlying primary hypertension: Have continued all patient's home medications and added p.r.n. medications for blood pressure. Will continue to monitor patient's blood pressure closely. Medications may need to be adjusted by primary care doctor. Chronic atrial fibrillation on amiodarone: Continue patient's home medications. Patient to remain on telemetry throughout this hospitalization. Hyperlipidemia: Home medications have been continued. Bipolar disorder: Home medications have been continued. Chronic back pain: Continue with [place] as patient is not allergic and reports having been taking this for approximately 9 years. Cirrhosis secondary to hepatitis: Appears stable at this time, no icterus or jaundice noted. No abdominal distention noted. 06/15/2020 Feeling better but still having shortness of breath and chest discomfort Discussed about the findings Possible Dc with diuretics and other home medications States that still continues to have chest pain discuss about the lab values and about the condition He feels that he is not back to her baseline Possible Dc in a.m. . Time Spent Managing Pts Care (In Minutes): 42
[2020-06-15] MEDS: CITALOPRAM 10 MG TABLET PO SCH (09:10)
[2020-06-15] MEDS: ISOSORBIDE MONO SR 60 MG TAB PO SCH (09:10)
[2020-06-15] MEDS: HEPARIN 5000 UNIT/ML 1 ML VIAL SQ SCH ×2 (09:13→21:17)
[2020-06-15] MEDS: HYDROCODONE/APAP 10/325 TAB PO PRN ×2 (13:19→21:16)
[2020-06-15] MEDS ORDERED: MORPHINE 2 MG/ML SYR IV ONE (15:43)
[2020-06-15] MEDS: ATORVASTATIN 20 MG TAB PO SCH (21:15)
[2020-06-15] MEDS: LITHIUM CARBONATE 300 MG TAB PO SCH (21:15)
[2020-06-16 00:43] VITALS: O2SAT 95
[2020-06-16] MEDS: FUROSEMIDE 40 MG/4 ML VIAL IV SCH ×2 (00:53→09:00)
[2020-06-16] MEDS: HYDROCODONE/APAP 10/325 TAB PO PRN ×2 (03:01→09:18)
[2020-06-16] MEDS: carvediloL 25 MG TAB PO SCH (05:27)
[2020-06-16 06:48] VITALS: BP 137/71
--- NOTE | 2020-06-16 08:42 | P.DS ---
Admission Date: 06/14/20 Discharge Date: 06/16/20 Primary Care Provider: Dr. Heard Disposition: DC HOME/HOME HEALTH CARE Discharge Condition: FAIR Reason for Admission: CHF exacerbation Brief History of Present Illness: 59-year-old male with medical history of chronic diastolic congestive heart failure, coronary artery disease, chronic back pain, cirrhosis, COPD, hepatitis, hyperlipidemia, hypertension, atrial fibrillation, bipolar disorder presents emergency department for shortness of breath. Patient reports he has had increasing shortness of breath of the course last few days. During his evaluation in the emergency department patient is found to have volume overload as evidenced by chest x-ray and elevated BNP level. Patient reports he is feeling also subjective shortness of breath. Patient also noted to have hypertensive urgency with blood pressures around 190 systolic. Patient reports she is compliant with home medications. ED provider wishes to admit patient for further evaluation and management. Hospital Course: Acute on chronic diastolic congestive heart failure Hypertensive urgency-underlying primary hypertension Chronic atrial fibrillation on amiodarone Hyperlipidemia Bipolar disorder Chronic back pain Cirrhosis secondary to hepatitis Course The patient was admitted and was started on IV diuresis and monitor under telemetry. Last echocardiogram earlier this year shows normal ejection fraction. Patient also had a heart catheterization approximately 2 months ago. Recommend 1.5 L per day fluid restrictions. Was also started on Oxygen per nasal cannula as needed. continued patient's home medications. And titrated as needed Feeling better and shortness of breath and chest discomfort improved He responded well to the treatment and is being discharged home today in a stable condition with advice to follow up with PCP in 1 week and also with Cardiology in 1-2 weeks Vital Signs/Physical Exam: Temp Pulse Resp BP Pulse Ox 97.2 F 60 18 137/71 92 06/16/20 04:00 06/16/20 06:47 06/16/20 04:01 06/16/20 06:47 06/16/20 04:01 General: Alert, In no apparent distress HEENT: Atraumatic, Normocephalic Neck: Supple Respiratory: Clear to auscultation bilaterally, Normal air movement Cardiovascular: Regular rate/rhythm, Normal S1 S2 Capillary refill: <2 Seconds Gastrointestinal: Soft and benign, W/out hepatosplenomegaly Musculoskeletal: No clubbing, No swelling Integumentary: No rashes Neurological: Normal speech, Normal strength at 5/5 x4 extr Lymphatics: No axilla or inguinal lymphadenopathy Laboratory Data at Discharge: WBC 9.7 K/uL (4.3-10.9) D 06/15/20 05:54 Hgb 13.6 g/dL (13.6-17.9) 06/15/20 05:54 Hct 39.7 % (39.6-49.0) 06/15/20 05:54 Plt Count 357 K/uL (152-406) 06/15/20 05:54 PT 12.6 SECONDS (9.5-12.5) H 06/14/20 01:55 INR 1.07 06/14/20 01:55 Sodium 138 mmol/L (136-145) 06/15/20 05:54 Potassium 3.4 mmol/L (3.5-5.1) L 06/15/20 05:54 BUN 26 mg/dL (7-18) H 06/15/20 05:54 Creatinine 1.33 mg/dL (0.55-1.3) H 06/15/20 05:54 Glucose 120 mg/dL (74-106) H 06/15/20 05:54 Magnesium 2.7 mg/dL (1.8-2.4) H 06/14/20 01:55 Total Bilirubin 0.4 mg/dL (0.2-1.0) 06/14/20 01:55 AST 28 U/L (15-37) 06/14/20 01:55 ALT 40 U/L (12-78) 06/14/20 01:55 Alkaline Phosphatase 102 U/L (45-117) 06/14/20 01:55 Home Medications: Amiodarone HCl 100 mg PO BID 03/29/20 Amlodipine [Norvasc*] 10 mg PO DAILY 03/29/20 Atorvastatin Calcium [Lipitor*] 20 mg PO BEDTIME 03/29/20 Citalopram [Celexa*] 20 mg PO DAILY 03/29/20 Losartan Potassium [Cozaar*] 25 mg PO DAILY 03/29/20 Potassium Chloride [Klor-Con] 20 meq PO DAILY 03/29/20 Clopidogrel Bisulfate [Plavix*] 75 mg PO DAILY tablet 04/03/20 [place] Carbonate [Lithotabs *] 600 mg PO BEDTIME tab 04/03/20 Carvedilol [Coreg] 25 mg PO BID 06/14/20 Hydralazine [Apresoline*] 50 mg PO TID 06/14/20 Isosorbide Mononitrate [Isosorbide Mononitrate ER] 60 mg PO DAILY 06/14/20 Furosemide [Lasix] 40 mg PO BIDL #60 tab 06/16/20 New Medications: Furosemide [Lasix] 40 mg PO BIDL #60 tab Time spent managing pt's care (in minutes): 42
[2020-06-16] MEDS: ISOSORBIDE MONO SR 60 MG TAB PO SCH (09:00)
[2020-06-16] MEDS: HEPARIN 5000 UNIT/ML 1 ML VIAL SQ SCH (09:00)
[2020-06-16] MEDS: HYDRALAZINE HCL 25 MG TABLET PO SCH (09:00)
[2020-06-16] MEDS: LOSARTAN POTASSIUM 50 MG TABLET PO SCH (09:00)
[2020-06-16] MEDS: AMIODARONE HCL 200 MG TAB PO SCH (09:17)
[2020-06-16] MEDS: CITALOPRAM 10 MG TABLET PO SCH (09:17)
[2020-06-16] MEDS: AMLODIPINE 10 MG TAB PO SCH (09:18)
[2020-06-16 10:03] VITALS: TEMP 97.5
== END 2020-06-16 09:39 | disposition home health service (06) ==
LOC: ER 00:39 → ERHOLD 02:53 → 2ND 14:49 → OBSVTOIN 06-16 08:13 → INTOOBSV 06-16 08:13
PROVIDERS: ADMIT Family Medicine; ATTEND Family Medicine
DX: I11.0 Hypertensive heart disease with heart failure (principal); I50.33 Acute on chronic diastolic (congestive) heart failure; I16.0 Hypertensive urgency; I48.20 Chronic atrial fibrillation, unspecified; E78.5 Hyperlipidemia, unspecified; F31.9 Bipolar disorder, unspecified; M54.9 Dorsalgia, unspecified; G89.29 Other chronic pain; K74.60 Unspecified cirrhosis of liver; K75.9 Inflammatory liver disease, unspecified; Z20.828 Contact with and (suspected) exposure to other viral communicable diseases; J44.9 Chronic obstructive pulmonary disease, unspecified; I25.10 Atherosclerotic heart disease of native coronary artery without angina pectoris; G47.30 Sleep apnea, unspecified; Z79.02 Long term (current) use of antithrombotics/antiplatelets; Z79.899 Other long term (current) drug therapy; Z95.1 Presence of aortocoronary bypass graft; Z87.891 Personal history of nicotine dependence; Z77.090 Contact with and (suspected) exposure to asbestos
CPT/HCPCS: 93005; 85025 ×2; 80048 ×2; 36415 ×2; 83735; 85610; 80076; 81003; 84484; 83880; 71045; 96374; 99285; U0003; J0360 ×2; J1940 ×7; J1644 ×4; J2270 ×8; G0378 ×5

== ENCOUNTER 2020-09-04 19:27 | Inpatient (IN) | payer OTHER ==
--- OUTSIDE RECORDS SUMMARY | 2020-09-04 19:29 | XMS REPORT | Clinical Summary ---
:1960 Author Organization [facility] Address [address] [place] [address] Care Team Providers Name Role Phone Sharpsophie Primary Care Provider Montana Jones Unavailable Allergies Active Allergy Reactions Severity Noted Date Comments Cephalosporins Nausea And Vomiting 04/26/2019 Codeine Hives 05/08/2018 Penicillins 01/22/2016 Medications Medication Sig Dispensed Refills Start Date End Date Status amitriptyline Take 50 mg by 0 Ac tive (ELAVIL) 50 MG mouth nightly. tablet DULoxetine Take 60 mg by 0 Activ e (CYMBALTA) 60 MG mouth daily. capsule vitamin E 200 UNIT Take 200 Units by 0 Active capsule mouth daily. carvedilol (COREG) Take 1 tablet (25 60 tablet 0 01/28/2016 Active 25 MG tablet mg total) by mouth 2 (two) times daily with breakfast and dinner. lithium 300 MG Take 300 mg by 0 Active capsule mouth nightly . lisinopril Take 40 mg by 0 Activ e (PRINIVIL,ZESTRIL) mouth daily . 40 MG tablet aspirin 81 MG Take 1 tablet (81 30 tablet 0 05/12/2018 Active chewable tablet mg total) by mouth daily. albuterol HFA Inhale 1 puff by 0 Active (VENTOLIN HFA) 90 mouth via inhaler mcg/actuation every 6 (six) inhaler hours as needed for Wheezing. mometasone-formotero Inhale 2 puffs by 0 Active l (DULERA) 100-5 mouth via inhaler mcg/actuation 2 (two) times inhaler daily. HYDROcodone-acetamin Take 1 tablet by 0 Active ophen (NORCO 10-325) mouth every 6 10-325 mg per tablet (six) hours as needed for Pain. traZODone (DESYREL) Take 0.5 tablets 15 tablet 0 05/12/2018 Active 50 MG tablet (25 mg total) by mouth every night as needed for Sleep. nitroglycerin Put 1 pill under 30 tablet 0 05/12/2018 Active (NITROSTAT) 0.4 MG tongue every 5min SL tablet as needed for chest pain.No more [...] Take instead of simvastatin for cholesterol. amiodarone Take 100 mg by 0 Acti ve (PACERONE) 100 MG mouth 2 (two) tablet times daily. isosorbide Take 60 mg by 0 Activ e mononitrate (IMDUR) mouth daily. 60 MG 24 hr tablet ranolazine (RANEXA) Take 1,000 mg by 0 Active 1,000 mg SR tablet mouth daily. budesonide-formotero Inhale 2 puffs by 0 Active l (SYMBICORT) 80-4.5 mouth via inhaler mcg/actuation 2 (two) times inhaler daily. clopidogrel (PLAVIX) Take 1 tablet (75 90 tablet 3 06/15/2019 06/14/2020 75 mg tablet mg total) by mouth daily. Active Problems Problem Noted Date Hypertensive emergency 05/13/2018 Acute kidney injury 05/13/2018 Diarrhea 05/13/2018 Transaminitis 05/13/2018 Hepatitis C virus infection without hepatic coma 05/13 Chest pain 05/09/2018 Syncope 05/09/2018 Paroxysmal atrial fibrillation 05/09/2018 COPD (chronic obstructive pulmonary disease) 8 CAD (coronary artery disease) 01/22/2016 Encounters Date Type Specialty Care Team Description 05/20/2020 Lab Requisition Lab after 09/04/2019 Social History Tobacco Use Types Packs/Day Years Used Date Former Smoker Cigarettes Quit: 05/25/20 18 Smokeless Tobacco: Never Used Tobacco Cessation: Counseling Given: No Sex Assigned at Date Recorded Not on file Last Filed Vital Signs Not on file Plan of Treatment Health Maintenance Due Date Last Done Comments COLON CANCER SCREENING COLONOSCOPY 1960 PNEUMOCOCCAL VACCINE 0-64 YRS (1 1964 of 1 - PPSV23) MEDICARE ANNUAL WELLNESS (YEAR 2 12/24/2016 or FIRST YEAR if no IPPE) INFLUENZA VACCINE (#1) 2020 LIPID PANEL 06/10/2022 06/10/2019, 07/07/2018, 05/09/2018, Additional history exists Procedures Procedure Name Priority Date/Time Associated Diagnosis Comme nts SARS-COV2/RT-PCR Routine 05/19/2020 8:30 PM Resu lts for this ([facility]) CDT procedure are in the results section. after 09/04/2019 Results SARS-CoV2/RT-PCR ([facility]) (05/19/2020 8:30 PM CDT) SARS-COV2/RT-PCR Negative Not Detected, [facility] Negative, See [facility] external report CENTER for linked test SARS-COV-2 [facility] PERFORMING LAB [facility] EM[facility] Specimen Other - Nasopharyngeal wall structure (b sue structure) Narrative Performed At Negative result for this test determines that [facility] SARS-CoV-2 RNA was not present in the [...] the Act. Fact Sheet for Healthcare Providers: https://www.KIT digital/sites/default/files/pro duct/documents/Fact_Sheet_HC_Providers_Lyra_SA RS-CoV-2.pdf Fact Sheet for Healthcare Patients: https://www.[employer]/sites/default/files/pro duct/documents/Fact_Sheet_Patients_Lyra_SARS-C oV-2.pdf Performing Laboratory: [address] [place] [address] Performing Organization Address City/State/Zipcode Phone Number [address] [phone] CENTER after 09/04/2019 Insurance Payer Benefit Plan / Subscriber ID Effective Dates Phone Addre ss Type Group [facility] [id number] 2015-Present MEDICARE [employer] CARE HMO (Home) [place] [address] Advance Directives For more information, please contact: [phone] Code Status Date Activated Date Inactivated Comments [...]
--- OUTSIDE RECORDS SUMMARY | 2020-09-04 19:30 | XMS REPORT | Continuity of Care Document ---
:[address] [facility] Care Team Providers Name Role Phone DirectMoney Information [employer] Unavailable Un available Problems Problem Status Onset Classification Date Comments Sourc e Date Reported M54.16 - Active OPID "RADICULOPA 0 [facility] THY, LUMBAR REGION" UNK Active [facility] 0 [place] RADICULOPAT Active [facility] HY, LUMBAR 0 [place] REGION M54.[address] RADICULOPAT 9 HY, LUMBAR REGION Medications Medication Details Route Status Patient Ordering Order Source Instructions Provider Date Oxycodone 2 tab, Route: Inactive Hydrochloride 5 PO, ONCE, [address] [place] Oral Tablet Dosing Weight 63.636, kg, Start date: 01/02/20 15:04:00 CDT, Stop date: 01/02/20 15:04:00 CDT Labetalol Notes: (Same Inactive as: Normodyne, 2019 [place] Trandate) Push over 2 minutes Give bolus over 2-3 minutes. Ketorolac 4 days Inactive MEDICATION 2019 [place] WASTE Product Size: 30 mg Product Wasted: ___ mg Acetaminophen Notes: Max Inactive acetaminophen 2019 [place] 4000 mg/day (4 gm/day). (Same as: Tylenol Extra Strength) Fentanyl Notes: (Same Inactive as: Sublimaze) 2019 [place] Preservative free. Hydromorphone Notes: Same as: Inactive H Dilaudid 2019 [place] Naloxone Notes: Same as Inactive Narcan 2019 [place] Meperidine Notes: (Same Inactive as: Demerol) 2019 [place] "Use Precaution in Elderly, Seizure disorders, and Renal impairment&quot ; Ondansetron Notes: (Same Inactive as: Zofran) 2019 [place] MEDICATION WASTE Product Size: 4 mg Product Wasted: ___ mg sugammadex (ANES) Route: IV, Drug Inactive 01/01 / form: SOLN, 2019 [place] ONCE, Stop date: 01/02/20 14:14:00 CDT glycopyrrolate Route: IV, Drug Inactive 01/01/ MH (ANES) form: INJ, 2019 [place] , Stop date: 01/02/20 14:11:00 CDT norepinephrine Route: IV, Drug Inactive 01/01/ MH (ANES) form: INJ, 2019 [place] , Stop date: 01/02/20 14:11:00 CDT vasopressin Route: IV, Drug Inactive 01/01/ MH (ANES) form: INJ, 2019 [place] , Stop date: 01/02/20 14:11:00 CDT lidocaine (ANES) Route: IV, Drug Inactive 01/01/ form: INJ, 2019 [place] , Stop date: 01/02/20 14:11:00 CDT fentaNYL (ANES) Route: IV, Drug Inactive 01/01/ MH form: INJ, 2019 [place] , Stop date: 01/02/20 14:11:00 CDT propofol (ANES) Route: IV, Drug Inactive 01/01/ MH form: INJ, 2019 [place] , Stop date: 01/02/20 14:11:00 CDT rocuronium (ANES) Route: IV, Drug Inactive 01/01 / MH form: INJ, 2019 [place] , Stop date: 01/02/20 14:11:00 CDT diphenhydrAMINE Route: IV, Drug Inactive 01/01/ MH (ANES) form: INJ, 2019 [place] , Stop date: 01/02/20 14:05:00 CDT acetaminophen Route: IV, Drug Inactive 01/01/ M H (ANES) form: INJ, 2019 [place] , Stop date: 01/02/20 14:05:00 CDT ePHEDrine (ANES) Route: IV, Drug Inactive 01/01/ MH form: INJ, 2019 [place] , Stop date: 01/02/20 14:05:00 CDT phenylephrine Route: IV, Drug Inactive 01/01/ M H (ANES) form: INJ, 2019 [place] ONCE, Stop date: 01/02/20 14:05:00 CDT ceFAZolin (ANES) Route: IV, Drug Inactive form: INJ, 2019 [place] ONCE, Stop date: 01/02/20 14:00:00 CDT ondansetron Route: IV, Drug Inactive (ANES) form: INJ, 2019 [place] ONCE, Stop date: 01/02/20 14:00:00 CDT dexamethasone Route: IV, Drug Inactive 01/01/ M H (ANES) form: INJ, 2019 [place] ONCE, Stop date: 01/02/20 14:00:00 CDT metoclopramide Route: IV, Drug Inactive (ANES) form: INJ, 2019 [place] ONCE, Stop date: 01/02/20 14:00:00 CDT midazolam (ANES) Route: IV, Drug Inactive form: SOLN, 2019 [place] ONCE, Stop date: 01/02/20 13:55:00 CDT Lactated Ringers Route: IV, Inactive Injection IV Total Volume: 2019 [place] and (ANES) 1000 mL 1,000, Start date: 01/02/20 12:38:00 CDT, Stop date: 01/02/20 13:38:00 CDT Dilaudid Notes: Same as: Inactive Dilaudid 2019 [place] Calcium Chloride 1,000 mL, 1000 Inactive 0.0014 MEQ/ML / ml/hr, Infuse 2019 [facility] Potassium Over: 1 hr, Chloride 0.004 [...] 0.5 mg, Route: Inactive IV, ONCE, 2019 [place] Dosing Weight 63.636, kg, Start date: 01/02/20 10:36:00 CDT, Stop date: 01/02/20 10:36:00 CDT oxyCODONE 10 mg 10 mg, Route: Inactive 12/12/ M H extended release PO, Drug form: 2019 [place] ERTAB, ONCE, Start date: 12/12/19 14:16:00 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 SUPERVISOR, Stop date: 12/12/19 14:16:00 COMPLETION SUPERVISOR oxyCODONE 10 mg 10 mg, Route: Inactive 12/12/ M H extended release PO, Drug form: 2019 [place] ERTAB, ONCE, Start date: 12/12/19 14:09:00 COMPLETION SUPERVISOR, Stop date: 12/12/19 14:09:00 COMPLETION SUPERVISOR Dilaudid Notes: Same as: Inactive Dilaudid 2019 [place] Oxycodone Notes: (Same Inactive Hydrochloride 5 as: Roxicodone) 2019 [place] MG Oral Tablet Calcium Chloride 1,000 mL, Rate: Inactive 0.0014 MEQ/ML / 75 ml/hr, [address] [place] Potassium Infuse over: Chloride 0.004 13.3 hr, Route: MEQ/ML / Sodium IV, Dosing Chloride 0.103 Weight 63.636 MEQ/ML / Sodium kg, Total Lactate 0.028 Volume: 1,000, MEQ/ML Injectable Start date: Solution 12/12/19 12:05:00 COMPLETION SUPERVISOR, Duration: 30 day, Stop date: 01/11/20 12:04:00 CDT, 1.66, m2, 0 Nitroglycerin 0.4 0.4 mg = 1 tab, Active MG Sublingual SL, Q5Min, PRN 2019 [place] Tablet as needed for chest pain, 0 Refill(s) Lisinopril PO, Daily, 0 No Longer Refill(s) Active 2019 [place] Amitriptyline PO, Bedtime, 0 Active Refill(s) 2019 [place] 24 HR carvedilol 20 mg = 1 cap, Active phosphate 20 MG PO, BID, 0 2019 [place] and Extended Release Refill(s) Capsule [Coreg] 12 HR ranolazine 1,000 mg = 1 Inactive 12/11/ H 1000 MG Extended tab, PO, BID, 0 2019 [place] Release Tablet Refill(s) [Ranexa] Clonidine 0.2 mg = 1 tab, Active Hydrochloride 0.2 PO, BID, PRN 2020 [place] MG Oral Tablet Hypertension, 0 Refill(s) lisinopril 20 mg 20 mg = 1 tab, No Longer oral tablet PO, Daily, 0 Active 2019 [place] Refill(s) AMIODarone 200 mg 200 mg = 1 tab, Active oral tablet PO, BID, 0 2019 [place] Refill(s) Potassium 20 mEq, PO, Active Chloride Daily, 0 2019 [place] Refill(s) Omnipaque 180 Notes: (Same Inactive as:Omnipaque 2020 [place] 180). WASTE: F/P - Black; E - Municipal Trash Bin Allergies, Adverse Reactions, Alerts Substance Category Reaction Severity Reaction Status Date Comments S ource type Reported penicillins Assertion Drug Active MH allergy [place] codeine Assertion Drug Active MH OPI D allergy [place] penicillin Assertion Drug Active MH OPID allergy [place] morphine Assertion Drug Active OP ID allergy [place] Immunizations Immunization Date Site Status Last Comments Source Given Updated pneumococcal Left completed Vanessa al 23-valent vaccine 8 deltoid [place], [facility], MH [facility] [place] Results Order Name Results Value Reference Date Interpretation Comments Anne Marie rce Range CHEM PANEL Total Protein 7.9 6.4 - 8.4 12/12 [place] CHEM PANEL Albumin Lvl 3.4 3.5 - 5.0 12/12 [place] CHEM PANEL ALT 39 0 - 65 12/12 [place] CHEM PANEL AST 32 0 - 37 12/12 [place] CHEM PANEL Alk Phos 49 39 - 136 12/122020 [place] CHEM PANEL Bili Total 0.5 0.2 - 1.3 12/12 [place] CHEM PANEL Bili Direct 0.2 0.0 - 0.3 12/12 [place] CHEM PANEL Bili Indirect 0.3 0.0 - 1.0 12/12 [place] CHEM PANEL Globulin 4.5 2.7 - 4.2 12/12 [place] CHEM PANEL A/G Ratio 0.8 0.7 - 1.6 12/12 [place] CHEM PANEL Glucose Lvl 83 70 - 99 12/12 [place] CHEM PANEL BUN 20 7 - 22 12/12 [place] CHEM PANEL Creatinine 1.42 0.50 - 1.40 12/12 MH Lvl /2019 [place] CHEM PANEL Sodium Lvl 139 135 - 145 12/12 [place] CHEM PANEL Potassium Lvl 3.6 3.5 - 5.1 12/12 [place] CHEM PANEL Chloride Lvl 108 95 - 109 12/12 [place] CHEM PANEL CO2 27 24 - 32 12/12 [place] CHEM PANEL Calcium Lvl 8.8 8.5 - 10.5 12/12 [place] CHEM PANEL AGAP 7.6 10.0 - 20.0 12/12 [place] CHEM PANEL eGFR 53 12/12 Result Comment: The [place] eGFR is calculated using the CKD-EPI formula. [...] BMI. HEMATOLOGY WBC 9.5 3.7 - 10.4 02/ MH [place] HEMATOLOGY RBC 4.50 4.70 - 6.10 / [place] HEMATOLOGY Hgb 13.5 14.0 - 18.0 / [place] HEMATOLOGY Hct 40.8 42.0 - 54.0 12/12 [place] HEMATOLOGY MCV 90.8 80.0 - 94.0 12/12 [place] HEMATOLOGY MCH 30.1 27.0 - 31.0 / [place] HEMATOLOGY MCHC 33.1 32.0 - 36.0 / [place] HEMATOLOGY RDW 13.6 11.5 - 14.5 12/12 [place] HEMATOLOGY Platelet 225 133 - 450 12/12 [place] HEMATOLOGY MPV 8.8 7.4 - 10.4 12/12 [place] HEMATOLOGY PT 13.2 12.0 - 14.7 12/12 [place] HEMATOLOGY INR 1.00 0.85 - 1.17 12/12 [place] HEMATOLOGY PTT 31.1 22.9 - 35.8 12/12 [place] HEMATOLOGY Segs 62.8 45.0 - 75.0 12/12 [place] HEMATOLOGY Lymphocytes 22.8 20.0 - 40.0 12/12 [place] HEMATOLOGY Monocytes 8.5 2.0 - 12.0 12/12 [place] HEMATOLOGY Eosinophils 4.9 0.0 - 4.0 12/12 [place] HEMATOLOGY Basophils 1.0 0.0 - 1.0 12/12 [place] HEMATOLOGY Neutrophils # 5.9 1.5 - 8.1 / [place] HEMATOLOGY Lymphocytes # 2.2 1.0 - 5.5 / [place] HEMATOLOGY Monocytes # 0.8 0.0 - 0.8 / [place] HEMATOLOGY Eosinophils # 0.5 0.0 - 0.5 / [place] HEMATOLOGY Basophils # 0.1 0.0 - 0.2 / [place] SPECIAL Hgb A1C 6.3 <=5.6 % 12/12 MH /2019 [place] Pathology Reports No Data Provided for This Section Diagnostic Reports Report Value Date Source Spine lumbar 2 or 3 PROCEDURE INFORMATION: 07/12/2020 OP ID [place] views DX Exam: XR Lumbosacral Spine, 2 or 3 Views Exam date and time: 07/12/2020 8:34 AM Age: 59 years old Clinical indication: Chronic pain syndrome; Radi culopathy, lumbar region; Additional info: /m54.16 radiculopathy, lumbar r egion, g89.4 chronic pain syndrome TECHNIQUE: Imaging protocol: XR of the lumbosacral spine, 2 or 3 views. Views: AP Lateral and [place] down lateral COMPARISON: DX SPINE LUMBAR WO CONTRAST CT 04/19/2020 10:28 A M FINDINGS: Vertebrae: There are 5 nonrib-bearing lumbar-typ e vertebrae. Postsurgical changes are seen status post L4-L5 fusion with transpedicular screws, posterior rods and disc space graft material. Ther e is no plain radiographic evidence of hardware failure or loosening. No radiographical ly evident fracture or subluxation. Degenerative facet disease changes are seen throughout the lumbar spine, severe at the L5-S1 level. The spinous pr ocesses and transverse processes appear unremarkable. Soft tissues: Paraspinal sof t tissues are unremarkable. The L1-L2 through L3-L4 and L5-S1 disc spacing is maintained. Th e vasculature demonstrates moderate to severe atherosclerotic calcification. Generator device is seen overlying the right iliac region with leads extending cephalad into the lower thoracic region. Evaluation is limited. Notes: If there is further concern or neurologic al abnormalities on clinical exam, CT or MRI of the lumbar spine may be perfo rmed for complete assessment. IMPRESSION: Postsurgical changes at the L4-L5 level, as note d above. Degenerative facet disease changes, as noted above. Chicho Anders MD On 07/12/2020 09:11:35; [id number] Spine lumbar wo Spine lumbar wo contrast [...] atherosclerosis. Chest 1view DX PROCEDURE INFORMATION: [facility]: XR Chest, 1 View Exam [...] disease. Armand Dodd MD On 12/12/2019 12:46:19; - [id number] Spine lumbar Radiation Dose CTDIVOL = 0 (mGy): DLP = 307 (mGy -cm) 10/27/2019 [facility] myelogram CT PROCEDURE INFORMATION: Exam: CT [...] subluxation. Theodore Iniguez MD On 10/27/2019 15:50:43; VR-SME [id number] Spine lumbar PROCEDURE INFORMATION: 10/27/2019 [facility] [place] [...] Theodore Iniguez MD On 10/27/2019 13:07:05; LORE [id number] Consultation Notes No Data Provided for This Section Discharge Summaries No Data Provided for This Section History and Physicals No Data Provided for This Section Vital Signs Vital Sign Value Date Comments Source Respitory Rate 10 01/02/2020 [facility] Systolic (mm Hg) 132 01/02/2020 [facility] Diastolic (mm Hg) 82 01/02/2020 [place] Respitory Rate 13 01/02/2020 [facility] Systolic (mm Hg) 113 01/02/2020 [facility] Diastolic (mm Hg) 76 01/02/2020 [place] Respitory Rate 10 01/02/2020 [facility] Systolic (mm Hg) 126 01/02/2020 [facility] Diastolic (mm Hg) 77 01/02/2020 [place] Height 175.26 cm 01/02/2020 [facility] Weight 63.636 01/02/2020 [facility] BMI Calculated 20.72 01/02/2020 [facility] Height 152.4 cm 12/11/2019 [facility] Weight 63.636 12/11/2019 [facility] BMI Calculated 27.4 12/11/2019 [facility] Encounters Location Location Encounter Encounter Reason Attending ADM DC Stat us Source Details Type Number For Provider Date Date Visit [facility] [id number] [place] 10/27 10/28 Edwin Ashley II /2019 [facility] Day Surgery [id number] Tay 01/01 01/[address] [facility] Outpt Diag [id number] Tay 04/19 04/20 [facility] [place] [facility] Outpt Diag [id number] Tay 07/12 07/13 [facility] [place] [facility] [place] Procedures Procedure Code Date Perfomer Comments Source Bypass<sup>1</pearson [id number] Heart [facility] and,MH p> bypass.2016 [facility] [place] Denture care [id number] [facility], [facility], [facility] [place] Discectomy<sup>2 [id number] Back sugery with [facility], </sup> katelyn placement. [facility], [facility] [place] Implantation<sup [id number] Right superior [place],MH >3</sup> hip electrical [facility], stimulator [facility] Neck [id number] "2 Plates and 8 MH [facility] nd, implantation<sup Screws in neck" OPI D [facility],MH >4</sup> [place],[facility] Assessment and Plan No Data Provided for This Section Plan of Care No Data Provided for This Section Social History Social History Date Source Social History TypeResponse 01/02/2020 [facility] Smoking Status Former smoker; Type: Cigarettes; Previou s treatment: None; Ready to change: No; Concerns about tobacco use in household: No; Exposure to Tobacco Smoke None; Cigarette Smoking Last 365 Days No; Reg Smoki ng Cessation Counseling No; Other Tobacco Frequency stopped smoking February 2018.; entered on: 01/02/20 Social History TypeResponse 01/02/2020 [facility] Smoking Status Former smoker; Type: Cigarettes; Previou s treatment: None; Ready to change: No; Concerns about tobacco use in household: No; Exposure to Tobacco Smoke None; Cigarette Smoking Last 365 Days No; Reg Smoki ng Cessation Counseling No; Other Tobacco Frequency stopped smoking February 2018.; entered on: 01/02/20 Social History TypeResponse 01/02/2020 [facility] [place] Smoking Status Former smoker; Type: Cigarettes; Previou s treatment: None; Ready to change: No; Concerns about tobacco use in household: No; Exposure to Tobacco Smoke None; Cigarette Smoking Last 365 Days No; Reg Smoki ng Cessation Counseling No; Other Tobacco Frequency stopped smoking February 2018.; entered on: 01/02/20 Social History TypeResponse 02/22/2019 [facility] Smoking Status Former smoker; Type: Cigarettes; [...]
--- OUTSIDE RECORDS SUMMARY | 2020-09-04 19:30 | XMS REPORT | Summary of Care ---
:1960 Author Organization [facility] Outpatient Imaging [facility] Address [address] [place], [place] [address]- Encounter HQ Encntr_alias(FIN) [id number] Date(s): 07/12/20 - 07/12/20 [facility] Outpatient Imaging [address], [address] [place] [address]- [phone] Discharge Disposition: Home or Self Care Attending [...] Completed Implantation3 Completed Neck implantation4 Completed 1Heart bypass.41552Xmwr sugery with katelyn placement.3Right superior hip electrical [...]
--- OUTSIDE RECORDS SUMMARY | 2020-09-04 19:33 | XMS REPORT ---
:1960 Author Organization [employer] Care Team Providers Name Role Phone Heard, Na Provider Role Unavailable Allergies No Known Allergies Problems Problem Type Condition Code Onset Dates Condition Statu s Problem Pulmonary emphysema, unspecified J43.9 Active emphysema type Problem Acute myocardial infarction, I21.4 Active subendocardial infarction Problem Chronic generalized pain R52 Act alberto Problem Primary insomnia F51.01 Active Problem Pure hypercholesterolemia E78.00 Ac tive Problem Hyperlipidemia E78.5 Active Problem Essential hypertension I10 Activ e Problem HTN (hypertension) I10 Active Problem Abdominal pain R10.9 Active Problem Left foot pain M79.672 Active Problem Symptomatic hypotension I95.89 Acti ve Problem Hospital discharge follow-up Z09 Active Problem Atrial fibrillation, unspecified I48.91 Active type Problem Complaints of memory disturbance R41.3 Active Problem Simple chronic bronchitis J41.0 Ac tive Problem Other specified urinary N39.498 Acti ve incontinence Problem Malignant hypertensive urgency I16.0 Active Problem Moderately severe major depression F32.2 Active Problem History of coronary artery disease Z86.79 Active Problem Hypertensive emergency I16.1 Activ e Assessment Panic attacks F41.0 Active Problem Acute on chronic congestive heart I50.9 Active failure, unspecified heart failure type Problem Closed displaced fracture of first S92.312S Active metatarsal bone of left foot, sequela Assessment Acute on chronic congestive heart I50.9 Active failure, unspecified heart failure type Problem Cirrhosis of liver without K74.60 A ctive ascites, unspecified hepatic cirrhosis type Assessment Hospital discharge follow-up Z09 Active Problem Chronic hepatitis C without B18.2 Active hepatic coma Problem Panic attacks F41.0 Active Problem Benign prostatic hyperplasia with N40.1 Active lower urinary tract symptoms Problem Chronic depressive person F34.1 Ac tive Problem Cigarette nicotine dependence F17.210 Active without complication Problem Follow-up exam Z09 Active Problem Elevated blood pressure reading R03.0 Active Problem Chest pain, unspecified type R07.9 Active Problem Arteriosclerotic cardiovascular I25.10 Active disease (ASCVD) Problem Dementia without behavioral F03.90 Active disturbance, unspecified dementia type Assessment Moderately severe major depression F32.2 Active Problem Bipolar 1 disorder F31.9 Active Assessment Bipolar 1 disorder F31.9 Active Problem Atherosclerotic heart disease of I25.10 Active [place] coronary artery without angina pectoris Problem Constipation, unspecified K59.00 Ac tive constipation type Problem Lumbar degenerative disc disease M51.36 Active Medications Medication Code Code Instructions Start End Status Dosage System Date Date Hydrochlorothiazide [facility] 47278707227 25 MG Orally Act alberto 1 tablet Once a day in the morning Losartan Potassium ND 42621728217 25 MG Orally Acti ve 1 tablet Once a day Carvedilol ND 36417324048 25 MG Orally Active as directed Ranolazine ER ND 00509811274 500 MG Orally Active 2 tablet Twice a day Ipratropium [place] 16890606757 0.02 % May Active as Inhalation 1 14, directed vial Three 2019 times a day Albuterol Sulfate ND 28423598414 (2.5 MG/3ML) May Activ e inhale 1 0.083% 14, vial by 2019 mouth via nebulizer 3 times a day Lactulose ND 92340553502 20 GM/30ML Active 30 ml Orally Once a day Amiodarone HCl ND 49669175606 200 MG Orally Active 1 tablet Once a day -81 ND 55001650630 81 MG Orally Active 1 tabl et Once a day Amlodipine Besylate ND 08205444543 10 MG Orally Oct Act alberto 1 tablet Once a day 2017 Pink Carbonate ND 68396806715 600 MG Orally Acti ve 1 capsule Once a day at bedtime Gabapentin ND 58552133010 600 MG Orally Active 1 t ablet three times a day Lorazepam ND 60686424444 0.5 MG Orally Inactive 1 t ablet Once a day prn as needed anxiety /panic attacks Pink Carbonate [facility] 48955905546 600 MG Active TA KE 1 CAPSULE BY MOUTH DAILY AT BEDTIME Dulera [facility] 93153366045 100-5 MCG/ACT Active 2 puff s Inhalation Twice a day Clonidine HCl ND 49542045238 0.2 MG Orally March Active 1 tablet twice a day 27, twice x 1 2017 week then 1 tablet Lyman [facility] 57523278352 10-325 MG Active 1 tablet Orally every 6 as needed hrs Lisinopril ND 79105701035 20 MG Orally Active 1 ta blet Once a day Zofran ND 34691273804 4 MG Orally December Active as neede d every 8hrs prn 19, for nause a nausea 2019 Citalopram ND 19753134654 20 MG Orally Active 1 ta blet Hydrobromide Once a day HydrALAZINE HCl ND 01268369121 25 MG Orally Active 1 tablet every 12 hrs with food Isosorbide ND 76182245634 30 MG Orally Active 1 ta blet Mononitrate ER Once a day in the morning Atorvastatin Calcium ND 97369592763 20 MG Orally Ac tive 1 tablet Once a day Amitriptyline HCl [facility] 63228282058 50 MG Orally Activ e 1 tablet Once a day Results No Known Results Summary Purpose [employer]ClinicalWorks Submission
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
--- OUTSIDE RECORDS SUMMARY | 2020-09-04 19:33 | XMS REPORT | Continuity of Care Document ---
:1960 Author Organization [facility] t Address [address] [place] [address] Care Team Providers Name Role Phone Sharpless Primary Care Physician Jessica ORTIZ Attending Clinician Unavailable Leticia Vasquez MD Attending Clinician Ramón HAYES Attending Clinician Singer MENDOZA Attending Clinician Deonte HAYES Attending Clinician Biju Ashley II Attending Clinician MADHURI DWYER Attending Clinician Unavailable Divina CATHERINE Attending Clinician Unavailable Leticia Vasquez MD Admitting Clinician Biju Ashley II Admitting Clinician MADHURI DWYER Admitting Clinician Unavailable Divina CATHERINE Admitting Clinician Unavailable Payers Payer Name Policy Type Policy Effective Date Expiration Date Sour ce Number [facility] [id number] [facility] - MEDICARE MGD 00:00:00 - [facility]ARE[facility] Center MEDICARE [id number] 016-Present Problems Condition Condition Condition Status Onset Resolution Last Treating Co mments Source Name Details Category Date Date Treatment Clinician Date M54.16 - Diagnosis Active 2020-04-30 M emoria "RADICULOP 6-04 12:58:00 l ATHY, M54.16 - 00:01: Raúl n LUMBAR "RADICULOP 00 REGION" ATHY, LUMBAR REGION" Active 03/28/2020 MH OPID [facility] UNK Diagnosis Active 2019-12-12 Mem oria 2-17 11:38:00 l UNK 00:00: Edwin 00 Active 12/11/2019 [facility] Edwin RADICULOPA Diagnosis Active 2020-01-02 Memoria THY, 2-17 09:54:00 l LUMBAR 00:00: [place] REGION RADICULOPA 00 THY, LUMBAR REGION Active 12/11/2019 [facility] [place] M54.16 Diagnosis Active 2018-102019-10-27 Mem oria RADICULOPA 1-20 08:57:00 l THY, M54.16 00:00: [place] LUMBAR RADICULOPA 00 REGION THY, LUMBAR REGION Active 09/13/2019 [facility] Hypertensi Disease Active [facility] - emergency emergency 00:00: [facility] 00 Center Acute Acute Disease Active [facility] kidney kidney -20 [facility] - injury injury 00:00: Medical 00 Center Diarrhea Diarrhea Disease Active [facility] 00 Center Transamini Transamini Disease Active [facility] tis tis 7-20 [facility] - 00:[facility]: [facility] 00 Center Hepatitis Hepatitis Disease Active [facility] C virus C virus -20 [facility] - infection infection 00:00: Medi dustin without without 00 Center hepatic hepatic coma coma Chest pain Chest pain Disease Active [facility] 7[facility]16 [facility] 00 Center Syncope Syncope Disease Active [facility] 7[facility]16 [facility] - 00[facility] 00 Center Paroxysmal Paroxysmal Disease Active [facility] [...] artery 00:00: Medical disease) disease) 00 Center Allergies, Adverse Reactions, Alerts Allergy Allergy Status Severity Reaction(s) Onset Inactive Treating Comm ents Source Name Type Date Date Clinician Penicill DA Active [facility] ins 08 Clear 00:00: Pink 00 [facility] codeine DA Active [facility] 11-01 Clear 00:00: Pink 00 [facility] Cephalos Propensi Active Nausea And [facility] [...] St in [facility] Cephalos Adverse Active vomiting [facility] penicill penicill Active Memori a ins ins l [place] codeine codeine Active Memoria l [place] penicill penicill Active Memori a in in l [place] morphine morphine Active Memori a l [place] Social History Social Habit Start Date Stop Date Quantity Comments Source Sex Assigned At [facility] Tobacco use and 2019-06-14 2019-06-14 Never used [facility] kes - exposure 00:00:00 00:00:00 [facility] History of tobacco 2018-05-25 [address] [facility] use 00[facility]00 [facility] Smoking Status Start Date Stop Date Source Social History 2019-02-22 23:13:17 2019-02-22 23:13:17 [facility] Medications Ordered Filled Start Stop Current Ordering Indication Dosage Frequency Signature Comments Components Source Medication Medication Date Date Medication? Clinician (SIG) Name Name Buddy Goodwin 2019- Yes Na Heard as needed [facility] 3[facility]19 for nausea [facility] - [facility]: [facility] l [facility] Clinics Oxycodone 2019-0 No 2 tab, Memori a Hydrochlori 3-10 Route: PO, l de 5 MG 20:04: ONCE, Edwin Oral Tablet 00 Dosing Weight 63.636, kg, Start date: 01/02/20 15:04:00 CDT, Stop date: 01/02/20 15:04:00 CDT Labetalol 2019-0 No Notes: Memori a 3-10 (Same as: l 19:18: Normodyne, Edwin 00 Trandate) Push over 2 minutes Give bolus over 2-3 minutes. Ketorolac 2019-0 No 4 days Memor ia 3-10 l 19:18: MEDICATION [place] 00 WASTE Product Size: 30 mg Product Wasted: ___ mg Acetaminoph 2019-0 No Notes: Max Memoria en 3-10 acetaminop l 19:18: hen 4000 Edwin 00 mg/day (4 gm/day). (Same as: Tylenol Extra Strength) Fentanyl No Notes: Memoria 3-10 (Same as: l 19:18: Sublimaze) [place] 00 Preservat alberto free. Hydromorpho 2019- No Notes: Flaquito radha ne 3-10 Same as: l 19:18: Dilaudid Naloxone 2019-0 No Notes: Memoria 3-10 Same as l 19:18: Narcan Meperidine 2019-0 No Notes: Memor ia 3-10 (Same as: l 19:18: Demerol) Edwin 00 "Use Precaution in Elderly, Seizure disorders, and Renal impairment " Ondansetron 2019- No Notes: Flaquito radha 3-10 (Same as: l 19:18: Zofran) [place] 00 MEDICATION WASTE Product Size: 4 mg Product Wasted: ___ mg sugammadex 2019-0 No Route: IV, M emoria (ANES) 3-10 Drug form: l 19:14: SOLN, Edwin 00 ONCE, Stop date: 01/02/20 14:14:00 CDT glycopyrrol 2019-0 No Route: IV, Memoria ate (ANES) 3- Drug form: l 19:11: INJ, ONCE, Stop date: 01/02/20 14:11:00 CDT norepinephr 2019-0 No Route: IV, Memoria ine (ANES) 3- Drug form: l 19:11: INJ, ONCE, Stop date: 01/02/20 14:11:00 CDT vasopressin 2019-0 No Route: IV, Memoria (ANES) 3- Drug form: l 19:11: INJ, ONCE, Stop date: 01/02/20 14:11:00 CDT lidocaine 2019-0 No Route: IV, Me moria (ANES) 3- Drug form: l 19:11: INJ, ONCE, Stop date: 01/02/20 14:11:00 CDT fentaNYL 2019-0 No Route: IV, Mem oria (ANES) 3- Drug form: l 19:11: INJ, ONCE, Stop date: 01/02/20 14:11:00 CDT propofol 2019-0 No Route: IV, Mem oria (ANES) 3- Drug form: l 19:11: INJ, ONCE, Stop date: 01/02/20 14:11:00 CDT rocuronium 2019-0 No Route: IV, M emoria (ANES) 3- Drug form: l 19:11: INJ, ONCE, Stop date: 01/02/20 14:11:00 CDT diphenhydrA 2019- No Route: IV, Memoria MINE (ANES) 3- Drug form: l 19:05: INJ, ONCE, Stop date: 01/02/20 14:05:00 CDT acetaminoph 2019-0 No Route: IV, Memoria en (ANES) 3- Drug form: l 19:05: INJ, ONCE, Stop date: 01/02/20 14:05:00 CDT ePHEDrine 2019- No Route: IV, Me moria (ANES) 3- Drug form: l 19:05: INJ, ONCE, Stop date: 01/02/20 14:05:00 CDT phenylephri 2020-0 No Route: IV, Memoria ne (ANES) 3-10 Drug form: l 19:05: INJ, ONCE, Stop date: 01/02/20 14:05:00 CDT ceFAZolin 2020-0 No Route: IV, Me moria (ANES) 3-10 Drug form: l 19:00: INJ, ONCE, Stop date: 01/02/20 14:00:00 CDT ondansetron 2019-0 No Route: IV, Memoria (ANES) 3-10 Drug form: l 19:00: INJ, ONCE, Stop date: 01/02/20 14:00:00 CDT dexamethaso 2019-0 No Route: IV, Memoria ne (ANES) 3-10 Drug form: l 19:00: INJ, ONCE, Stop date: 01/02/20 14:00:00 CDT metoclopram 2020-0 No Route: IV, Memoria monserrat (ANES) 3-10 Drug form: l 19:00: INJ, ONCE, Stop date: 01/02/20 14:00:00 CDT midazolam 2020-0 No Route: IV, Me moria (ANES) 3-10 Drug form: l 18:55: SOLN, 00 ONCE, Stop date: 01/02/20 13:55:00 CDT Lactated 2019-0 No Route: IV, Mem oria Ringers 3-10 Total l Injection 17:38: Volume: Nelly nn IV (ANES) 00 1,000, 1000 mL Start date: 01/02/20 12:38:00 CDT, Stop date: 01/02/20 13:38:00 CDT Dilaudid 2020-0 No Notes: Memoria 3-10 Same as: l 16:12: Dilaudid 00 Calcium 2020-0 No 1,000 mL, Memor ia Chloride 3-10 1000 l 0.0014 16:00: ml/hr, [place] MEQ/ML / 00 Infuse Potassium Over: 1 Chloride hr, Route: 0.004 IV, 1,000, MEQ/ML / Drug form: Sodium INJ, PRE Chloride OP, Dosing 0.103 Weight MEQ/ML / 63.636 kg, Sodium Start Lactate date: 0.028 20 MEQ/ML 11:00:00 Injectable CDT, Solution Duration: 1 [...] a 3-10 Route: IV, l 15:36: ONCE, [place] 00 Dosing Weight 63.636, kg, Start date: 01/02/20 10:36:00 CDT, Stop date: 01/02/20 10:36:00 CDT oxyCODONE 2020-0 No 10 mg, Memori a 10 mg 2-18 Route: PO, l extended 20:16: Drug form: Her mitchell release 00 ERTAB, ONCE, Start date: 12/12/19 14:16:00 [employer], Stop date: 12/12/19 14:16:00 [employer] oxyCODONE 2020-0 No 10 mg, Memori a 10 mg 2-18 Route: PO, l extended 20:09: Drug form: Her mitchell release 00 ERTAB, ONCE, Start date: 12/12/19 14:09:00 [employer], Stop date: 12/12/19 14:09:00 [employer] Dilaudid 2020-0 No Notes: Memoria 2-18 Same as: l 20:08: Dilaudid [place] 00 Oxycodone 2020-0 No Notes: Memori a Hydrochlori 2-18 (Same as: l de 5 MG 19:05: Roxicodone Herm aurelia Oral Tablet 00 ) Calcium 2020-0 No 1,000 mL, Memor ia Chloride 2-18 Rate: 75 l 0.0014 18:05: ml/hr, Edwin MEQ/ML / 00 Infuse Potassium over: 13.3 Chloride hr, Route: 0.004 IV, Dosing MEQ/ML / Weight Sodium 63.636 kg, Chloride Total 0.103 Volume: MEQ/ML / 1,000, Sodium Start Lactate date: 0.028 12/12/20 MEQ/ML 12:05:00 Injectable [employer], Solution Duration: 30 day, Stop date: 01/11/20 12:04:00 CDT, 1.66, m2, 0 Nitroglycer 2019-0 Yes 0.4 mg = 1 Memoria in 0.4 MG 2-17 tab, SL, l Sublingual 17:38: Q5Min, PRN H ermann Tablet 00 as needed for chest pain, 0 Refill(s) Lisinopril 2019-0 No PO, Daily, M emoria 2-17 0 l 17:37: Refill(s) [place] 00 Amitriptyli 2019-0 Yes PO, Memori a ne 2-17 Bedtime, 0 l 17:37: Refill(s) [place] 00 24 HR 2019-0 Yes 20 mg = 1 Memoria carvedilol 2-17 cap, PO, l phosphate 16:48: BID, 0 Raúl n 20 MG 00 Refill(s) Extended Release Capsule [Coreg] 12 HR 0 No 1,000 mg = Memori a ranolazine 2-17 1 tab, PO, l 1000 MG 16:48: BID, 0 Edwin Extended 00 Refill(s) Release Tablet [Ranexa] Clonidine 2019-0 Yes 0.2 mg = 1 Me moria Hydrochlori 2-17 tab, PO, l de 0.2 MG 16:48: BID, PRN Herm aurelia Oral Tablet 00 Hypertensi on, 0 Refill(s) lisinopril 2019-0 No 20 mg = 1 Me moria 20 mg oral 2-17 tab, PO, l tablet 16:47: Daily, 0 [place] 00 Refill(s) AMIODarone 2019-0 Yes 200 mg = 1 M emoria 200 mg oral 2-17 tab, PO, l tablet 16:47: BID, 0 Edwin 00 Refill(s) Potassium 2019-0 Yes 20 mEq, Memor ia Chloride 2-17 PO, Daily, l 16:47: 0 Edwin 00 Refill(s) Omnipaque 2020-0 No Notes: Memori a 180 -03 (Same l 15:15: as:Omnipaq Edwin 00 ue 180). WASTE: F/P - Black; E - Municipal Trash Bin amitriptyli Yes 50mg QD Take [address] ne (ELAVIL) 8-22 by mouth Luke s - 50 MG 14:22: nightly. Medical tablet 42 Leonore DULoxetine Yes 60mg QD Take [address] (CYMBALTA) 8-22 by mouth [facility] - 60 MG 14:22: daily. Medical capsule 42 Center vitamin E Yes 200U QD Take [address] 200 UNIT 8-22 Units by [facility] - capsule 14:22: mouth Medical 42 daily. Leonore lithium 300 Yes 300mg QD Take [address] MG capsule 8-22 mg by [facility] - 14:22: mouth Medical 42 nightly . Leonore lisinopril Yes 40mg QD Take [address] (PRINIVIL,Z 8-22 by mouth Luke s - ESTRIL) 40 14:22: daily . Medi dustin MG tablet 42 Center albuterol Yes 1{puff} Inhale [address] HFA 8-22 puff by [facility] - (VENTOLIN 14:22: mouth via Med ical HFA) 90 42 inhaler Center mcg/actuati every 6 on inhaler (six) hours as needed for Wheezing. mometasone- Yes 2{puff} Q.5D Inhale [address] formoterol 8-22 puffs by [facility] - (DULERA) 14:22: mouth via Medi dustin 100-5 42 inhaler 2 Center mcg/actuati (two) on inhaler times daily. HYDROcodone Yes 1{tbl} Take [address] -acetaminop 8-22 tablet by Kofi mcclure - miryam (NORCO 14:22: mouth Medica l 10-325) 42 every 6 Center 10-325 mg (six) per tablet hours as needed for Pain. amiodarone Yes 100mg Q.5D Take [address] (PACERONE) 8-22 mg by [facility] - 100 MG 14:22: mouth 2 Medical tablet 42 (two) Center times daily. isosorbide Yes 60mg QD Take [address] mononitrate 8-22 by mouth Luke s - (IMDUR) 60 14:22: daily. Medic al MG 24 hr 42 Center tablet ranolazine 2018- Yes 1000mg QD Take 1,[address] (RANEXA) 8-22 mg by [facility] - 1,000 mg SR 14:22: mouth Medic al tablet 42 daily. Center budesonide- 2019- Yes 2{puff} Q.5D Inhale [address] formoterol 8-22 puffs by [facility]ukes - (SYMBICORT) 14:22: mouth via M [employer] 80-4.5 42 inhaler 2 Leonore mcg/actuati (two) on inhaler times daily. clopidogrel 2020- No 75mg QD Take [address] (PLAVIX) 75 8- 08-21 tablet (75 L ukes - mg tablet 00:00: 23:59 mg total) Me dical 00 :00 by mouth Center daily. Albuterol Albuterol 2018- Yes Na Heard inhale [address] [facility] [address] Sulfate Sulfate 5-14 vial by Lukes - 00:00: mouth via Memoria 00 nebulizer l 3 times a [facility] day ent Clinics Ipratropium Ipratropium 2018-0 Yes Na Heard as [facility] [place] 5-14 directed [facility] - 00:00: Memoria 00 [facility] ent Clinics Amlodipine Amlodipine 2017- Yes Na Heard [address] [facility] Besylate Besylate 0-29 [facility]ukes - 00:00: Memoria 00 [facility] ent [facility] aspirin 81 2018- Yes 81mg QD Take 1 [facility] t MG chewable 7-19 tablet (81 Abigail kes - tablet 00:00: mg total) Medica l 00 by mouth Center daily. traZODone 2017- Yes 25mg Take 0.[address] [facility] (DESYREL) 7-19 tablets [facility]ukes - 50 MG 00:00: (25 mg Medical tablet 00 total) by Center mouth every night as needed for Sleep. nitroglycer 2017- Yes Put [address] in 7-19 under Lukes - (NITROSTAT) 00:00: tongue Medi dustin 0.4 MG SL 00 every 5min Cent er tablet as needed for chest pain.No more than 3 doses in 15min.. lidocaine 2017-0 Yes 3{patch Q24H Place [address] (LIDODERM) 7-19 } patches Lukes - 5 % patch [...] week then Memoria 00 1 tablet l [facility] ent Clinics carvedilol Yes 25mg Take 1 [facility] (COREG) 25 4-05 tablet (25 Kofi es - MG tablet 00:00: mg total) Med ical 00 by mouth 2 Center (two) times daily with breakfast and dinner. Amitriptyli Amitriptyli Yes Na Heard [address] [address] ne HCl ne HCl [facility] - Memoria l [facility] ent Clinics Dulera Dulera Yes Na Heard 2 puffs [facility] ent Clinics Amiodarone Amiodarone Yes Na Heard [address] HCl HCl [facility] ent Clinics Aspir-81 Aspir-81 Yes Na Heard [address] [facility] ent Clinics Isosorbide Isosorbide Yes Na Heard [address] Mononitrate Mononitrate in the [facility]ukes - ER ER morning Memoria l [facility] Clinics Chaparral Chaparral Yes Na Heard [address] Carbonate Carbonate at bedtime [facility] ent Clinics Atorvastati Atorvastati Yes Na Heard [address] [facility] n Calcium n Calcium [facility] ent Clinics Losartan Losartan Yes Na Heard [address] Potassium Potassium [facility]ics Gabapentin Gabapentin Yes Na Heard [address] [facility]ics Carvedilol Carvedilol Yes Na Heard as [facility] directed [facility] ent Clinics HydrALAZINE HydrALAZINE Yes Na Heard [address] HCl [facility] with [facility] Citalopram Citalopram Yes Na Heard [address] Hydrobromid Hydrobromid L ukes - e e Memoria l [facility] ent Clinics Lorazepam Lorazepam Yes Na Heard [address] as needed [facility] ent Clinics Cougar Cougar Yes Na Heard [address] as needed [facility] ent Clin[facility] Hydrochloro Hydrochloro Yes Na Heard [address] [facility] thiazide thiazide in the [facility] - [facility] Ranolazine Ranolazine Yes Na Heard [address] ER ER [facility] ent Clinics Lisinopril Lisinopril Yes Na Heard [address] [facility] ent Clinics Lactulose Lactulose Yes Na Heard [address] [facility] ent Clinics Chaparral Chaparral Yes Na Heard TAKE [address] [facility] Carbonate Carbonate CAPSULE BY [facility]ukes - MOUTH Memoria DAILY AT l BEDTIME [facility] ent Clinics Vital Signs Vital Name Observation Time Observation Value Comments Source Respitory Rate 2020-01-02 20:30:00 Dayanna al [place] Systolic (mm Hg) 2020-01-02 20:30:00 Flaquito rial [place] Diastolic (mm Hg) 2020-01-02 20:30:00 [facility] orial Edwin Respitory Rate 2020-01-02 20:15:00 Memori al Edwin Systolic (mm Hg) 2020-01-02 20:15:00 Flaquito rial [place] Diastolic (mm Hg) 2020-01-02 20:15:00 [facility] orial Edwin Respitory Rate 2020-01-02 20:00:00 Memori al [place] Systolic (mm Hg) 2020-01-02 20:00:00 Flaquito rial [place] Diastolic (mm Hg) 2020-01-02 20:00:00 [facility] roxanne Pineda Height 2020-01-02 16:08:00 [facility] 2020-01-02 16:08:00 [facility] BMI Calculated 2020-01-02 16:08:00 Memagustina al [place] Height 2019-12-11 17:02:00 152.4 cm [facility] Edwin Weight 2019-12-11 17:02:00 [facility] [place] BMI Calculated 2019-12-11 17:02:00 Memori al Edwin Procedures Procedure Date / Time Performed Performing Clinician Sourc e SARS-COV2/RT-PCR ([facility] 2020-05-19 20:30:00 [facility] Center Bypass<sup>1</sup> [facility] Herm aurelia Denture care [facility] [place] Discectomy<sup>2</sup> [facility] Edwin Implantation<sup>3</pearson [facility] [place] p> Neck [facility] [place] implantation<sup>4</pearson p> Plan of Care Planned Activity Planned Date Details Comments Source Future Scheduled 2022-06-[address] [facility] - Test 00:00:00 (procedure) [code = Medical Center 76948228] Future Scheduled 2020-06-25 INFLUENZA VACCINE (#1) [facility] Test 00:00:00 [code = INFLUENZA Medical Ce nter VACCINE (#1)] Future Scheduled 2016-12-[address] [facility] - Test 00:00:00 WELLNESS (YEAR 2 or Medical Center FIRST YEAR if no IPPE) [code = MEDICARE ANNUAL WELLNESS (YEAR 2 or FIRST YEAR if no IPPE)] Future Scheduled [address] [facility] - Test 00:00:00 0-64 YRS (1 of 1 - Medical C enter PPSV23) [code = PNEUMOCOCCAL VACCINE 0-64 YRS (1 of 1 - PPSV23)] Future Scheduled [address] Kofi es - Test 00:00:00 malignant neoplasm of Medica l Center colon (procedure) [code = 621894095] Encounters Start End Encounter Admission Attending Care Care Encounter Source Date/Time Date/Time Type Type Clinicians Facility Department ID 2020-08-12 2020-08-12 Outpatient [facility] [id number] 2020-08-08 2020-08-08 [facility] [id number] 2020-07-22 2020-07-22 Transition Jackie Lopez [id number] 00:00:00 00:00:00 of Care Mirella Castro [id number] [place] [id number] 2020-07-18 2020-07-20 [facility] Darren Vasquez [id number] 22:50:00 13:00:00 Encounter Moshe Melgar [id number] [facility] [id number] 2020-07-18 2020-07-18 Emergency Mejia Hdz [facility] [id number] 17:31:00 21:56:00 Osmin Clemons [id number] [place] [id number] [place] [id number] 2020-07-12 2020-07-12 Outpatient NICKY Ashley OIP [id number] 08:02:00 23:59:00 Tay Ivy 2020-06-25 2020-06-25 [facility] [id number] 11:20:00 11:20:00 [employer] [facility] 2020-05-03 2020-05-03 [facility] [id number] 14:25:00 14:25:00 [employer] [facility] ent [facility] 2020-04-19 2020-04-19 Outpatient Dion [id number] 09:58:00 23:59:00 Tay [id number] Biju [id number] 2020-02-12 2020-02-12 [facility] [id number] 11:15:00 11:15:00 t [employer] [facility] ent [facility] 2020-01-26 2020-01-26 [facility] [id number] 11:20:00 11:20:00 t [email or web address] - [employer] [facility] Medicine Outpati ent Clinics 2020-01-11 2020-01-11 [facility] [id number] 15:32:00 15:32:00 [email or web address] - [employer] [facility] Medicine Outpati ent Clinics 2020-01-03 2020-01-03 [facility] [id number] 09:20:00 09:20:00 t [employer] [facility] Medicine Outpati ent Clinics 2020-01-02 2020-01-02 Outpatient Ashley MHPL MHPL [id number] 09:54:00 15:59:00 Tay [facility] 2020-01-02 2020-01-02 Outpatient MHBL MHBL [id number] MHBL 09:54:00 09:54:00 2019-11-13 2019-11-13 [facility] [id number] 14:13:00 14:13:00 t Specialty/U Abigail kes - Specialty rology [facility] a /Urology Clinic l Clinic Outpati ent Clinics 2019-11-01 2019-11-01 [facility] [id number] 09:20:00 09:20:[address] [facility] Outpati ent Clinics 2019-10-27 2019-10-27 Outpatient Dion MHSE MHSE [id number] 08:50:00 23:59:00 Biju 2019-10-27 2019-10-27 Outpatient MHSE MHSE [id number] MH 08:50:[facility] 2019-[facility] 2019-09-05 [facility] [id number] 09:29:00 09:29:00 t [employer] [facility] Medicine Outpati ent Clinics 2019-05-31 2019-05-31 [facility] [id number] 12:00:00 12:00:00 [email or web address] - [employer] [facility] Medicine Outpati ent Clinics 2019-05-30 2019-05-30 [facility] [id number] 15:00:00 15:00:00 t Spring [place] [employer] [facility] s - Drive [facility] Medicine l Medicine Outpati ent Clinics 2019-04-26 2019-04-26 [facility] [id number] 15:09:00 15:09:00 t Spring [employer] s - Drive [facility] l Medicine Outpati ent Clinics 2019-03-30 2019-03-30 [facility] [id number] 15:40:00 15:40:00 t [place] [employer] s - Drive [facility] l Medicine Outpati ent Clinics 2019-02-23 2019-02-23 Outpatient E MHSE MED [address] [place] [address] 15:40:00 [facility]:40:00 [facility] 2019-01-10 2019-01-10 [facility] [id number] 08:41:00 08:41:00 t [place] [employer] - [employer] [facility] Medicine Outpati ent Clinics 2018-12-12 2018-12-12 [facility] [id number] 08:15:00 08:15:00 t [place] [employer] s - Drive [facility] Medicine l Medicine Outpati ent Clinics 2018-07-27 2018-07-27 [facility] [id number] 15:15:00 15:15:00 [email or web address] - [employer] [facility] l Medicine Outpati ent Clinics 2018-06-09 2018-06-09 [facility] [id number] 08:00:00 08:00:00 t [place] [employer] s - Drive [facility] Medicine l Medicine Outpati ent Clinics 2018-05-31 2018-05-31 [facility] [id number] 09:00:00 09:00:00 t [place] [employer] s - Drive [facility] Medicine l Medicine Outpati ent Clinics 2018-04-20 2018-04-20 [facility] [id number] 09:45:00 09:45:00 t [place] [employer] s - Drive [facility] l Medicine Outpati ent Clinics 2018-04-15 2018-04-15 [facility] [id number] 15:26:00 15:26:00 [facility] 2018-03-15 2018-03-15 Outpatient Nelson Palomares [id number] [facility] 15:15:00 15:15:00 [facility] [facility] 2018-02-28 2018-02-28 Outpatient Nelson Palomares 13 [address] [facility] 09:15:00 09:15:00 [facility] Results Test Description Test Time Test Comments Results Result Comments Source SARS-CoV2/RT-PCR ([facility]) 2020-05-20 09:54:00 Test Item Value Reference Range Interpretation Comme nts SARS-COV2/RT-PCR (test code = Negative Not Detected, 23234-6) Negative, See external report for linked test SARS-COV-2 PERFORMING LAB [facility] [place] (test code = 93761-2) JENNIFER (test code = JENNIFER) Negative result [...] of the Act. Fact Sheet for Healthcare Providers:https://www.[employer]. [employer]/sites/default/files/produ ct/documents/Fact_Sheet_HC_Pr obcdold_Myga_FQZY-QoW-2.pdf Fact Sheet for Healthcare Patients:https://www.Bali[employer]o /sites/default/files/produc t/documents/Fact_Sheet_Patien qn_Wgpi_RUGS-IlM-8.pdf Performing Laboratory:[facility], [place] [address] [place], [place] [address]ARS-COV2/RT-PCR ([facility])2020-05-20 09:54:00 Test Item Value Reference Range Interpretation Comments SARS-COV2/RT-PCR (test Negative Not Detected, Negative, code = 6698424) See external report for linked test SARS-COV-2 PERFORMING LAB [facility] [place] (test code = 3001057) Negative result for this test determines that [...] a nasopharyngeal swab specimen collected from individuals susp ected of COVID-19 by their healthcare provider.This test [...] 564(g) of the Act.Fact Sheet for Healthcare Providers:https://www.[employer]/sites/default/files/product/documents/Fact_Shee b_TU_Kbyucgash_Pwup_MUGA-XdO-8.pdfFact Sheet for Healthcare Patients:https://www.[employer]/sites/default/files/product/ documents/Lxnc_Wyynr_Tzsqcwui_Jksd_GXCE-RoY-9.pdfPerforming Laboratory:[place] [address] [address], [place] [address]LOJB [id number] 18:34:007.9[facility] [id number] 18:34:003.4[facility]annCHE[facility] UMWVM0694-35-32 18:34:0039[facility]ann[facility] KMVWE7055-60-32 18:34:0032 [facility] HermannCHEM LUZKE9924-58-90 18:34:0049[facility]ann[facility] PANEL 2019-12-12 18:34:000.5[facility] [id number] 18:34:000.2[facility]ann[facility] DAFWV3908-10-82 18:34:000.3[facility] IOLSL4030-35-94 18:34:004.5[facility] [id number] 18:34:00 Test Item Value Reference Range Interpretation Comments A/G Ratio (test code = A/G Ratio) 0.8 1 0.7-1.6 [facility] [id number] 18:34:0083[facility]ann[facility] PANEL 2019-12-12 18:34:0020[facility] EOOPE1634-53-16 18:34:001.42[facility]ann[facility] JUUVA9895-50-40 18:34:09598Pxvtaroe HermannCHEM PZIEK1135-45-97 18:34:003.6[facility]ann[facility] SWOIV1154-07-28 18:34:69479Vedptvcc HermannCHEM SQCGN9339-19-21 18:34:0027[facility]ann[facility] OXNPY8853-74-52 18:34:008.8 [facility] VHLQN4222-92-42 18:34:007.6[facility]annCHEM PANEL 2019-12-12 18:34:0053[facility] FhssxcwUXTYQXWUTV2235-83-19 18:34:009.5[facility] BnuaeusXZQHTAVJLA3494-21-52 18:34:004.50[facility] SygqnqhLXSKJKWDTF8735-60-78 18:34:0013.5[facility] DfptfcdPIXLFNFOXI3381-39-28 18:34:0040.8[facility] TDTJLSLSIC0750-46-95 18:34:0090.8[facility] DkqucqlJZPOIXHIRZ3220-62-41 18:34:00 Test Item Value Reference Range Interpretation Comments MCH (test code = MCH) 30.1 pg 27.0-31.0 Memorial ZxjlbhxNQUSXECHAD9567-51-56 18:34:0033.1[facility] HermannHEMATOLOGY 2019-12-12 18:34:0013.6[facility] MkmtphlDQFRJATBGH2676-96-58 18:34:06054Oexopvmt XaxtxnuAXYTKDAYUX1291-38-87 18:34:008.8[facility]orial JglyltvYCGRTCOHJH4367-01-88 18:34:00 Test Item Value Reference Range Interpretation Comments PT (test code = PT) 13.2 s 12.0-14.7 [facility] PtloltkFIXRNELDQD8627-34-08 18:34:00 Test Item Value Reference Range Interpretation Comments INR (test code = INR) 1.00 1 0.85-1.17 [facility] UrsgmfqPFLLIIBXPF0993-04-86 18:34:00 Test Item Value Reference Range Interpretation Comments PTT (test code = PTT) 31.1 s 22.9-35.8 Memorial HhyhmzaTSPPBXOXYR0325-41-47 18:34:0062.8[facility] HermannHEMATOLOGY 2019-12-12 18:34:0022.8[facility] HxrtjokRKBXCLKGYK1004-42-33 18:34:008.5[facility]orial EocpjeaLGEWYVOUMJ3117-43-45 18:34:004.9[facility]orial HxezjckWYHQLBYPPV2043-14-23 18:34:001.0[facility]orial WkwkeymOKVNKYYAJI9836-04-43 18:34:005.9[facility] Edwin RICYWWPOYP0882-29-83 18:34:002.2[facility]orial KkmgowbKTIYGSVTVK6577-62-74 18:34:000.8 Memorial DymdrtjJWDQGAWQHR9109-45-82 18:34:000.5[facility] HermannHEMATOLOGY 2019-12-12 18:34:000.1[facility] HermannSPECIAL EKYTTQZJH6961-64-59 18:34:006.3 [facility] [id number] 06:36:00 Test Item Value Reference Range Interpretation [...] CA) 8.9 MG/DL 8.5-10.1 N CBC W/AUTO [id number] 06:32:00 Test Item Value Reference Range Interpretation [...] = NO DIFF/SCN CRITERIA MDIFF) COMPREHENSIVE METABOLIC [id number] 06:08:00 Test Item Value Reference Range Interpretation [...] TOTAL (test code = ALKP) CBC W/AUTO [id number] 05:52:00 Test Item Value Reference Range Interpretation [...] concentrations <2 ng/mL are obtai brandon. LACTIC [id number] 16:03:00 Test Item Value Reference Range Interpretation Comments LACTIC ACID (test code = LACT) 1.0 mmol/L 0.4-2.0 N - XR CHEST 1 [id number] 15:59:00 Name: ALHAJI FARAH [facility] : 1960 Age/S: 58 / M [address] Unit #: [id number] Loc: [place] [address] Phys: Jac Leal MD Acct: [id number] Dis Date: Status: ADM IN PHONE #: [phone] Exam Date: 11/02/2019 2651 FAX #: Reason: Fever EXAMS: CPT: [id number] XR CHEST 1 V 23757 Fluoro Time: DAP (Gy m2): Air Kerma [...] PAGE 1 Signed Report Name: ALHAJI FARAH [place] : 1960 Age/S: 58 / M [address] Unit #: [id number] Loc: [place] [address] Phys: Jac Leal MD Acct: [id number] Dis Date: Status: ADM IN PHONE #: [phone] Exam Date: 11/02/2019 1556 FAX #: Reason: Fever EXAMS: CPT: [id number] XR CHEST 1 V 63489 Fluoro Time: DAP (Gy m2): Air Kerma (mGy): <Continued> Technologist: Sabine Cross RT(R)(CT) Trnscb Date/Time: 11/02/2019 (1559) [email or web address] Orig Print D/T: S: 11/02/2019 (3328) PAGE 2 Signed KfkxolUQEVHTSW-B3771-01-09 04:22:00 Test Item Value Reference Range Interpretation [...] yby method. Completed by Nursing: NOBASIC METABOLIC [id number] 04:19:00 Test Item Value Reference Range Interpretation [...] CA) 8.1 MG/DL 8.5-10.1 L CBC W/AUTO [id number] 04:08:00 Test Item Value Reference Range Interpretation [...] = NO DIFF/SCN CRITERIA MDIFF) - CTA [id number] 22:57:00 Name: ALHAJI FARAH ELISEO [place] : 1960 Age/S: 58 / M [address] Unit #: [id number] Loc: [place] [address] Phys: Jac Leal MD Acct: [id number] Dis Date: Status: ADM IN PHONE #: [phone] Exam Date: 11/01/2019 4714 FAX #: Reason: Chest PAIN EXAMS: CPT: [id number] CTA CHEST 74159 Examination: CTA chest, PE protocol Indication: Chest [...] 1 Signed Report (CONTINUED) Name: ALHAJI FARAH [facility] : 1960 Age/S: 58 / M [address] [facility] Unit #: [id number] Loc: [place] [address] Phys: Jac Leal MD Acct: [id number] Dis Date: Status: ADM IN PHONE #: [phone] Exam Date: 11/01/2019 FAX #: Reason: Chest PAIN EXAMS: CPT: [id number] CTA CHEST 98363 <Continued> No suspicious or destructive osseous lesions. Impression: Limited exam secondary to phase of contrast no evidence of acute pulmonary embolism proximal lobar pulmonary arteries. There is irregular, possibly nodular thickening of the esophagus, recommend further evaluation with endoscopy Additional findings as detailed above at 1974 Reported and signed by: Katy Dykes M.D. CC: Jac Leal MD Technologist:Curly Logan, RT(R)(CT); .. CTDI: DLP: Trnscb Date/Time: 11/01/2019 (2256) t.SDR.SR31 Orig Print D/T: S: 11/01/2019 (6342) PAGE 2 Signed ReportGLYCOSYLATED HEMOGLOBIN [id number] 17:41:00 Test Item Value Reference Range Interpretation Comments GLYCOSYLATED HEMOGLOBIN (HA1C) 6.3 % A1C 4.2-6.3 N (test code = GLYHGB) ESTIMATED AVERAGE GLUCOSE (test 134 MG/DLest code = EAG) COMPREHENSIVE METABOLIC [id number] 17:40:00 Test Item Value Reference Range Interpretation [...] = LDL/HDL) 2.94 Ratio 1.48-3.22 Avg N IFHVKGGCPIN0792-43-51 17:40:00 Test Item Value Reference Range Interpretation Comments PHOSPHOROUS (test code = PHOS) 3.5 MG/DL 2.5-4.9 N RULE OUT MT [id number] 17:40:00 Test Item Value Reference Range Interpretation [...] nume rical results may roma yby method. [id number] 17:40:00 Test Item Value Reference Range Interpretation Comments MAGNESIUM (test code = MAG) 2.5 MG/DL 1.8-2.4 H TROPONIN I [id number] 15:24:00 Test Item Value Reference Range Interpretation Comments TROPONIN I RAPID 0.04 ng/mL 0.00-0.08 N - The use o f serial (test code = sampling and te sting TROPIRAP) protocol is a recommended pra ctice- An elevated tro ponin level alone is often not sufficient for diagnosis of my ocardial infarction. BASIC METABOLIC [id number] 13:39:00 Test Item Value Reference Range Interpretation [...] 133 Unit/L 26-192 N CK) TROPONIN I [id number] 11:56:00 Test Item Value Reference Range Interpretation Comments TROPONIN I RAPID 0.04 ng/mL 0.00-0.08 N - The use o f serial (test code = sampling and te sting TROPIRAP) protocol is a recommended pra ctice- An elevated tro ponin level alone is often not sufficient for diagnosis of my ocardial infarction. - XR CHEST 1 [id number] 11:53:00 Name: ALHAJI FARAH [place] : 1960 Age/S: 58 / M [address] Unit #: [id number] Loc: [place] [address] Phys: Darell Medrano MD Acct: [id number] Dis Date: Status: PRE ER PHONE #: [phone] Exam Date: 11/01/2019 1146 FAX #: Reason: chest pain EXAMS: CPT: [id number] XR CHEST 1 V 50409 Fluoro Time: DAP (Gy m2): Air Kerma [...] PAGE 1 Signed Report Name: ALHAJI FARAH [place] :1960 Age/S: 58 / M [address] Unit #: [id number] Loc: [place] [address] Phys: Darell Medrano MD Acct: [id number] Dis Date: Status: PRE ER PHONE #: [phone] Exam Date: 11/01/2019 1146 FAX #: Reason: chest pain EXAMS: CPT: [id number] XR CHEST 1 V 67830 Fluoro Time: DAP (Gy m2): Air Kerma (mGy): <Continued> Technologist:Nirmal Negron RT(R)(MR) Trnscb Date/Time: 11/01/2019 (4933) JuanJH12 Orig Print D/T: S: 11/01/2019 (5483) PAGE 2 Signed ReportCBC W/O [id number] 11:50:00 Test Item Value Reference Range Interpretation [...] 11.80 fL 7.0-9.6 H MPV) CHEMISTRY 8 [id number] 11:47:00 Test Item Value Reference Range Interpretation [...] 49-113 N code = GFRBED) CHEMISTRY 8 [id number] 11:47:00 Test Item Value Reference Range Interpretation [...] 81 49-113 N (test code = GFRBED) TISSUE [id number] 10:31:00Surgical Pathology Report Case: [id number] Authorizing Provider: Caleb Dawn Collected: 06/14/2019 Bhavna Morales MD Ordering Location: [address] Received: 06/15/2019 0756 Service Pathologist: Misty Jackson MD Specimen: Ampulla, Ampulla Bx A. "AMPULLA", BIOPSY: - SQUAMOUS AND FOVEOLAR TYPE MUCOSA WITH MILD CHRONIC INFLAMMATION - NEGATIVE FOR MALIGNANCY (SEE COMMENT) Signing Pathologist Direct Phone Line: [phone] signed by Mitsy Jackson MD on 06/19/2019 at 10:31 AMThe biopsy shows fragments of squamous and foveolar type mucosa with mild chronic inflammation and cautery. Focal muscle is also seen. No definite small bowel/ biliary lining is seen. The ampulla normally does not have squamous lining. This could be a metaplastic change. Clinical and endoscopic correlation is required.86635Mak and postop diagnosis: endoscopic ultrasound with endo, [...] for patient radiation dose information. Signed: Diana Nicholasort Verified Date/Time: 06/16/2019 12:50:49 Reading Location: [facility] Radiology Reading Room BLOOD CULTURE 2019-06-16 12:01:00 Test Item Value Reference Range Interpretation Comments CULTURE (BEAKER) (test No growth in 5 days code = 1095) BLOOD [id number] 12:01:00 Test Item Value Reference Range Interpretation Comments CULTURE (BEAKER) (test No growth in 5 days code = 1095) COMPREHENSIVE METABOLIC [id number] 07:08:00 Test Item Value Reference Range Interpretation [...] NOT APPLICABLE FOR DIALYSIS PATIEN TS. BLOOD [id number] 02:00:00 Test Item Value Reference Range Interpretation Comments CULTURE (BEAKER) (test No growth in 5 days code = 1095) BLOOD [id number] 02:00:00 Test Item Value Reference Range Interpretation Comments CULTURE (BEAKER) (test No growth in 5 days code = 1095) BLOOD [id number] 02:00:00 Test Item Value Reference Range Interpretation Comments CULTURE (BEAKER) (test No growth in 5 days code = 1095) COMPREHENSIVE METABOLIC [id number] 04:49:00 Test Item Value Reference Range Interpretation [...] APPLICABLE FOR DIALYSIS PATIEN TS. CBC (HEMOGRAM ONLY)2019-06-14 04:38:00 Test Item Value [...] 0-0 CELLS (BEAKER) (test code = 413) [id number] 16:17:00 Test Item Value Reference Range Interpretation Comments ACTIVATED CLOTTING TIME 125 sec TEST ED AT [facility] [address] ([facility]) (test code = [place] [address]) [address] PET, CARDIAC PERFUSION MULTIPLE STUDIES, REST AND [id number] 16:40:00 Reason for exam:->chest pain, evaluate for worsening CAD, s/p CABGFINAL REPORT PROCEDURE: MYOCARDIAL PERFUSION PET IMAGING (Rest/Stress)CPT CODE: 99731 INDICATION: Evaluate acute chest pain/discomfort CARDIOVASCULAR PROFILE:CAD [...] MDReport Verified Date/Time: 06/12/2019 16:40:23 Reading Location: [address] Reading Room TROPONIN [id number] 02:08:00 Test Item Value Reference Range Interpretation [...] acute neurological disease, and persistent tachyarrhythmia.HEPATIC FUNCTION [id number] 02:02:00 Test Item Value Reference Range Interpretation [...] = 26 U/L 6-55 347) BASIC METABOLIC [id number] 02:02:00 Test Item Value Reference Range Interpretation [...] APPLICABLE FOR DIALYSIS PATIEN TS. VANCOMYCIN LEVEL, [id number] 01:59:00 Test Item Value Reference Range Interpretation [...] WBC 0-0 (BEAKER) (test code = 413) [id number] 07:20:00 Test Item Value Reference Range Interpretation Comments PROCALCITONIN (BEAKER) (test code 0.30 ng/mL <0.05 H = 3036) SEPSIS RISK (ng/mL)Low: 0.05-0.50Intermediate: 0.51-2.00High: >=2.01BASIC METABOLIC [id number] 07:16:00 Test Item Value Reference Range Interpretation [...] APPLICABLE FOR DIALYSIS PATIEN TS. HEPATIC FUNCTION [id number] 07:16:00 Test Item Value Reference Range Interpretation [...] WBC 0-0 (BEAKER) (test code = 413) [id number] 05:55:00 Test Item Value Reference Range Interpretation Comments MAGNESIUM (BEAKER) (test code = 2.1 mg/dL 1.6-2.6 627) LIPID [id number] 05:55:00 Test Item Value Reference Range Interpretation [...] 130-159 High 160-189 Very High >=190HEPATIC FUNCTION [id number] 05:55:00 Test Item Value Reference Range Interpretation [...] = 34 U/L 6-55 347) BASIC METABOLIC [id number] 05:55:00 Test Item Value Reference Range Interpretation [...] PATIEN TS. CBC W/PLT COUNT & AUTO [id number] 05:03:00 Test Item Value Reference Range Interpretation [...] PERCENT (BEAKER) (test code = 2801) TROPONIN [id number] 05:02:00 Test Item Value Reference Range Interpretation [...] acute neurological disease, and persistent tachyarrhythmia.LACTIC ACID, [id number] 04:48:00 Test Item Value Reference Range Interpretation Comments LACTATE BLOOD VENOUS (2) (BEAKER) 1.1 mmol/L 0.5-2.2 (test code = 2872) URINALYSIS W/ REFLEX URINE [id number] 03:25:00 Test Item Value Reference Range Interpretation [...] = 514) SOURCE(BEAKER) (test code = 2795) OXYGEN SATURATION, [id number] 03:04:00 Test Item Value Reference Range Interpretation [...] 0.7 mmol/L 0.5-2.2 (test code = 2872) [id number] 23:52:00 Test Item Value Reference Range Interpretation Comments PROCALCITONIN (BEAKER) (test code 0.30 ng/mL <0.05 H = 3036) SEPSIS RISK (ng/mL)Low: 0.05-0.50Intermediate: 0.51-2.00High: >=2.01TROPONIN [id number] 23:40:00 Test Item Value Reference Range Interpretation [...] failure, acidosis, acute neurological disease, and persistent tachyarrhythmia.[id number] 23:34:00 Test Item Value Reference Range Interpretation Comments PHOSPHORUS (BEAKER) (test code = 3.4 mg/dL 2.3-4.7 604) [id number] 23:34:00 Test Item Value Reference Range Interpretation Comments MAGNESIUM (BEAKER) (test code = 2.2 mg/dL 1.6-2.6 627) BASIC METABOLIC [id number] 23:34:00 Test Item Value Reference Range Interpretation [...] APPLICABLE FOR DIALYSIS PATIEN TS. HEPATIC FUNCTION [id number] 23:34:00 Test Item Value Reference Range Interpretation [...] = 42 U/L 6-55 347) COMPREHENSIVE METABOLIC [id number] 23:34:00 Test Item Value Reference Range Interpretation [...] S NOT APPLICABLE FOR DIALYSIS PATIEN TS. [id number] 23:34:00 Test Item Value Reference Range Interpretation Comments LIPASE (BEAKER) (test code = 749) 38 U/L 8-78 [id number] 23:33:00 Test Item Value Reference Range Interpretation Comments PARTIAL THROMBOPLASTIN TIME 27.3 seconds 22.5-36.0 (BEAKER) (test code = 760) [id number] 23:33:00 Test Item Value Reference Range Interpretation Comments FIBRINOGEN LEVEL (BEAKER) (test 300 mg/dl 225-434 code = 658) PROTHROMBIN TIME/[id number] 23:32:00 Test Item Value Reference Range Interpretation [...] mechanical heart valves.CBC W/PLT COUNT & AUTO [id number] 23:22:00 Test Item Value Reference Range Interpretation [...] (BEAKER) (test code = 2801) BLOOD GAS, [id number] 22:27:00 Test Item Value Reference Range Interpretation [...] code = 1819) 21.0 % POCT-LACTIC ACID, [id number] 21:53:00 Test Item Value Reference Range Interpretation Comments POC-LACTIC ACID, 1.6 mmol/L 0.9-1.7 TESTED AT [facility] [address] V[address] (BEAKER) (test [facility] Jeannine [facility] code = 2805) [address] TROPONIN [id number] 18:59:00 Test Item Value Reference Range Interpretation [...] acute neurological disease, and persistent tachyarrhythmia.HEPATITIS C [id number] 16:55:00 Test Item Value Reference Range Interpretation Comments HEPATITIS C ANTIBODY (BEAKER) (test Reactive Nonreactive A code = 367) POCT-GLUCOSE [id number] 12:03:00 Test Item Value Reference Range Interpretation Comments POC-GLUCOSE METER 169 mg/dL 70-110 H TESTED AT [facility] [address] [facility] (test code = [place] [place] 15[address]) [address] HEPATITIS B CORE ANTIBODY, [id number] 08:37:00 Test Item Value Reference Range Interpretation Comments HEPATITIS B CORE TOTAL ANTIBODY Reactive Nonreactive A (BEAKER) (test code = 497) POCT-GLUCOSE [id number] 08:14:00 Test Item Value Reference Range Interpretation Comments POC-GLUCOSE METER 105 mg/dL 70-110 TESTED AT [place] [address] ([facility]) (test code = [place] Jeannine [facility] 1538) [address] HEPATIC FUNCTION [id number] 07:10:00 Test Item Value Reference Range Interpretation [...] 67 U/L 6-55 H 347) BASIC METABOLIC [id number] 07:10:00 Test Item Value Reference Range Interpretation [...] FOR DIALYSIS PATIEN TS. HEPATITIS B SURFACE [id number] 06:58:00 Test Item Value Reference Range Interpretation Comments HEPATITIS B SURFACE ANTIBODY < mIU/mL <8.0 (BEAKER) (test code = 647) HEPATITIS B SURFACE [id number] 05:42:00 Test Item Value Reference Range Interpretation Comments HEPATITIS B SURFACE ANTIGEN (2) Nonreactive Nonreactive (BEAKER) (test code = 2585) HEPATITIS B CORE ANTIBODY, [id number] 05:42:00 Test Item Value Reference Range Interpretation Comments HEPATITIS B CORE IGM ANTIBODY Nonreactive Nonreactive (BEAKER) (test code = 645) CBC W/PLT COUNT & AUTO [id number] 04:56:00 Test Item Value Reference Range Interpretation [...] (test code = 2801) U/S, RENAL WITH [id number] 16:28:00Reason for exam:->hypertensionFINAL REPORT INDICATION: 57-year-old inpatient [...] MDReport Verified Date/Time: 05/11/2018 16:28:02 Reading Location: [address] Ultrasound Reading Room U/S, ABDOMINAL, [id number] 16:15:00Abdomen limited area? Add comment if clarification [...] MDReport Verified Date/Time: 05/11/2018 16:15:41 Reading Location: [address] Ultrasound Reading Room CTA, CHEST, ABDOMEN - PELVIS, FOR [id number] 14:11:00Reason for exam:->Chest painAddendum BeginsREPORT STATUS:A Addendum: I agree with the previously described non vascular findings. Signed: Antionette Hinojosa MDReport Verified Date/Time: 05/11/2018 14:11:09 Reading Location: [facility] P048 Angio Body Reading [...] thoracic aorta. In the abdominal aorta, circumferential qpid-sz-pecqjezl calcific atherosclerosis is seen. Overall, no ectasia [...] An addendum will be dictated by the Farm Products Shipper Radiologist regarding the nonvascular findings. Signed: Magno Augustin MDReport Verified Date/Time: 05/10/2018 18:58:16 Reading Location: [place] [address] Cardiology MRI CALCIUM, [id number] 05:20:00 Test Item Value Reference Range Interpretation Comments CALCIUM IONIZED (BEAKER) (test 1.16 mmol/L 1.12-1.27 code = 698) PH, BLOOD (BEAKER) (test code = 7.40 1810) [id number] 04:29:00 Test Item Value Reference Range Interpretation Comments PHOSPHORUS (BEAKER) (test code = 3.5 mg/dL 2.3-4.7 604) [id number] 04:29:00 Test Item Value Reference Range Interpretation Comments MAGNESIUM (BEAKER) (test code = 2.4 mg/dL 1.6-2.6 627) COMPREHENSIVE METABOLIC [id number] 04:29:00 Test Item Value Reference Range Interpretation [...] PATIEN TS. CBC W/PLT COUNT & AUTO [id number] 03:58:00 Test Item Value Reference Range Interpretation [...] (BEAKER) (test code = 2801) U/S, RENAL, [id number] 13:00:00Reason for exam:->akiShould this be performed at [...] MDReport Verified Date/Time: 05/10/2018 13:00:32 Reading Location: [facility] P006J Ultrasound Reading Room CALCIUM, [id number] 06:58:00 Test Item Value Reference Range Interpretation Comments CALCIUM IONIZED (BEAKER) (test 1.08 mmol/L 1.12-1.27 L code = 698) PH, BLOOD (BEAKER) (test code = 7.35 1810) B-TYPE NATRIURETIC FACTOR (BNP)2018-05-10 05:49:00 Test Item Value Reference Range Interpretation Comments B-TYPE NATRIURETIC PEPTIDE (BEAKER) 153 pg/mL 0-100 H (test code = 700) [id number] 05:47:00 Test Item Value Reference Range Interpretation Comments MAGNESIUM (BEAKER) 2.4 mg/dL 1.6-2.6 Specimen slightly (test code = 627) hemolyzed [id number] 05:47:00 Test Item Value Reference Range Interpretation Comments PHOSPHORUS (BEAKER) 2.7 mg/dL 2.3-4.7 Specimen slightly (test code = 604) hemolyzed COMPREHENSIVE METABOLIC [id number] 05:47:00 Test Item Value Reference Range Interpretation [...] PATIEN TS. CBC W/PLT COUNT & AUTO [id number] 05:31:00 Test Item Value Reference Range Interpretation [...] (BEAKER) (test code = 2801) EOSINOPHIL SMEAR, [id number] 22:19:00 Test Item Value Reference Range Interpretation Comments EOSINOPHIL SMEAR, URINE (BEAKER) No EOS seen No EOS seen (test code = 1851) URINALYSIS W/ [id number] 22:13:00 Test Item Value Reference Range Interpretation [...] SOURCE(BEAKER) (test code = 2795) SODIUM, RANDOM [id number] 21:38:00 Test Item Value Reference Range Interpretation Comments SODIUM URINE (BEAKER) (test code = < meq/L 243) Reference Range: No NormalsPROTEIN, RANDOM [id number] 21:38:00 Test Item Value Reference Range Interpretation Comments PROTEIN, URINE (BEAKER) (test code = 15 mg/dL 0-14 H 1569) CREATININE, RANDOM [id number] 21:38:00 Test Item Value Reference Range Interpretation Comments CREATININE URINE (BEAKER) (test 173.4 mg/dL code = 375) Reference Range: No NormalsRAD, FOOT, 2 VIEWS, [id number] 13:59:00Reason for exam:->Pain and swelling of left foot after fall.FINAL REPORT Two views left foot Discussion: There is hallux valgus with degen erative changes. No visible acute fracture, dislocation, destructive lesion. Soft tissues are unremarkable. Signed: Darren Ariza Verified Date/Time: 05/09/2018 13:59:01 Reading Location: [address] Consult Reading Room [facility], [facility], [id number] 12:03:00FINAL REPORT PROCEDURE: V/Q LUNG SCAN CPT CODE: 94730 INDICATION: Acute chest pain, PE suspected, dyspnea, [...] Leticia Pimentel Verified Date/Time: 05/09/2018 12:03:05 ReadingLocation: [address] [address] [facility] Med Reading Room FL, ESOPH, SWALLOW FUNCTION, WITH CINE OR [id number] 11:00:00Reason for exam:->chest painFINAL REPORT Esophagram History: [...] Verified Date/Time: 0 05/09/2018 11:00:37 Reading Location: [address] Ortho Consult Reading Room HEMOGLOBIN [id number] 10:45:00 Test Item Value Reference Range Interpretation Comments HEMOGLOBIN A1C (BEAKER) (test code = 6.3 % 4.3-6.1 H 368) BASIC METABOLIC [id number] 08:43:00 Test Item Value Reference Range Interpretation [...] FOR DIALYSIS PATIEN TS. Re-draw per labLIPID [id number] 08:42:00 Test Item Value Reference Range Interpretation [...] Borderline 130-159 High 160-189 Very High >=190LITHIUM [id number] 08:31:00 Test Item Value Reference Range Interpretation Comments LITHIUM LEVEL (BEAKER) (test code 0.4 mmol/L 0.8-1.2 L = 630) RAPID DRUG SCREEN, [id number] 07:54:00 Test Item Value Reference Range Interpretation [...] situations. Chain of custody not maintained. Some ufui-vps-cbmdolv medications, as well as adulterants, may cause inaccurate results. Clinical correlation should be applied. A more comprehensive drug screen or confirmation of a detected drug may be performed upon request. CREATINE KINASE (CK), TOTAL AND [id number] 07:47:00 Test Item Value Reference Range Interpretation Comments CREATINE KINASE TOTAL (BEAKER) 161 U/L 29-200 (test code = 380) CREATINE KINASE-MB (BEAKER) (test 4.9 ng/mL 0.0-6.6 code = 750) CREATINE KINASE-MB INDEX (BEAKER) 3.0 % (test code = 395) CK-MB Reference Range:<6.7 Normal6.7-10.0 Borderline>10.0 AbnormalTROPONIN [id number] 07:47:00 Test Item Value Reference Range Interpretation [...] acute neurological disease, and persistent tachyarrhythmia.BASIC METABOLIC [id number] 04:56:00 Test Item Value Reference Range Interpretation [...] (test code = 413) CT, BRAIN, WITHOUT [id number] 21:00:00FINAL REPORT CT, BRAIN, WITHOUT CONTRAST INDICATION: [...] MDReport Verified Date/Time: 05/08/2018 21:00:20 Reading Location: [address] Reading Room B-TYPE NATRIURETIC FACTOR (BNP)2018-05-08 19:03:00 Test Item Value Reference Range Interpretation Comments B-TYPE NATRIURETIC PEPTIDE (BEAKER) 254 pg/mL 0-100 H (test code = 700) CREATINE KINASE (CK), TOTAL AND [id number] 19:02:00 Test Item Value Reference Range Interpretation Comments CREATINE KINASE TOTAL (BEAKER) 150 U/L 29-200 (test code = 380) CREATINE KINASE-MB (BEAKER) (test 5.5 ng/mL 0.0-6.6 code = 750) CREATINE KINASE-MB INDEX (BEAKER) 3.7 % (test code = 395) CK-MB Reference Range:<6.7 Normal6.7-10.0 Borderline>10.0 AbnormalTROPONIN [id number] 19:02:00 Test Item Value Reference Range Interpretation [...] acute neurological disease, and persistent tachyarrhythmia.BASIC METABOLIC [id number] 18:32:00 Test Item Value Reference Range Interpretation [...] PATIEN TS. CBC W/PLT COUNT & AUTO [id number] 18:28:00 Test Item Value Reference Range Interpretation [...] 0-1 PERCENT (BEAKER) (test code = 2801) [id number] 18:15:00 Test Item Value Reference Range Interpretation Comments PARTIAL THROMBOPLASTIN TIME 30.0 seconds 22.5-36.0 (BEAKER) (test code = 760) Prior to initiating heparinXR Fluoroscopy in Imaging per [id number] 12:25:17 Patient: ALHAJI FARAH Date/Time04/05/2018 11:30 CDTReason [...]
--- OUTSIDE RECORDS SUMMARY | 2020-09-04 19:34 | XMS REPORT | Summary of Care ---
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 Wed07/19/20 at 2100, Until Discontinued, Routine documented in this encounter Additional Health Concerns Infection Onset Date Last Indicated Resolved Time COVID-19 Rule Out 07/18/2020 07/18/2020 07/19/2020 8: 19 AM CDT documented as of this encounter Insurance Payer Benefit Plan / Subscriber ID Effective Phone Address T e Group Dates [facility] [id number] 2017-Prese Medic are Adv HEALTHCARE - HEALTHCARE DUAL nt H MO MANAGED COMPLETE HMO MEDICARE [facility] [place] STAR [id number] 2014-Prese Medicaid HEALTHCARE COMM PLUS nt PLAN - MANAGED MEDICAID [id number] documented as of this encounter
--- OUTSIDE RECORDS SUMMARY | 2020-09-04 19:34 | XMS REPORT ---
:1960 Author Organization [facility] Address [address] [place] [place] [address] Care Team Providers Name Role Phone Heard Unavailable [phone] PROBLEMS Type Condition ICD9-CM [id number] Onset Condition SNOMED Code Notes Code Code Dates Status Problem Essential hypertension I10 Active 59963248 Problem Abdominal pain R10.9 Active 94324023 Problem HTN (hypertension) I10 Active 61086391 Problem Atrial fibrillation, I48.91 Active 85818585 unspecified type Problem Left foot pain M79.672 Active 440304675324591 Problem Hypertensive emergency I16.1 Active 212649521 993400 Problem Closed displaced S92.312S Active 05085595 fracture of first metatarsal bone of left foot, sequela Problem Other specified N39.498 Active 307355095 urinary incontinence Problem Chronic generalized R52 Active 25525469 pain Problem Complaints of memory R41.3 Active 267898210 disturbance Problem Primary insomnia F51.01 Active 3066532 Problem Hyperlipidemia E78.5 Active 85502519 Problem Pure E78.00 Active 813978049 hypercholesterolemia Problem Elevated blood R03.0 Active 85492135 pressure reading Problem Cigarette nicotine F17.210 Active 37723641 dependence without complication Problem Lumbar degenerative M51.36 Active 25319841 disc disease Problem Arteriosclerotic I25.10 Active 229623047716605 cardiovascular disease (ASCVD) Problem Constipation, K59.00 Active 32234345 unspecified constipation type Problem 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 Active 7326022117 107 disease of [place] coronary artery without angina pectoris Problem Follow-up exam Z09 Active 220875748 Problem Bipolar 1 disorder F31.9 Active 464489344 Problem Chronic depressive F34.1 Active 34772356 person Problem Hospital discharge Z09 Active 304642051 follow-up Problem Pulmonary emphysema, J43.9 Active 45810290 unspecified emphysema type Problem Symptomatic I95.89 Active 21957208 hypotension Problem Acute myocardial I21.4 Active 351572106 infarction, subendocardial infarction Problem Simple chronic J41.0 Active 85920365 bronchitis Problem Chronic hepatitis C B18.2 Active 074619607 without hepatic coma Problem Cirrhosis of liver K74.60 Active 037165347 without ascites, unspecified hepatic cirrhosis type Problem Acute on chronic I50.9 Active 399389251 congestive heart failure, unspecified heart failure type Problem Chest pain, R07.9 Active 81438556 unspecified type Problem Other chronic pain G89.29 Active 03437951 Problem History of coronary Z86.79 Active 286909374 artery disease Problem Dementia without F03.90 Active 47171231 behavioral disturbance, unspecified dementia type Problem Benign prostatic N40.1 Active 56341704514823 hyperplasia with lower urinary tract symptoms Problem Panic attacks F41.0 Active 689268925 Problem 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 276957053 major depression Problem 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 Active 36067311 urgency ALLERGIES Allergen (clinical Drug/Non Drug Allergy Reaction Allergy Type Onse t Date Status drug ingredient) documented on EMR penicillin rash Drug Allergy Active Cephalosporins vomiting Non Drug Active Allergy ENCOUNTERS from 1960 to 2020-08-12 Encounter Location Date Provider Diagnosis [address] Jul, Allison betancourt foot pain M79.672 Family Medicine [address] [place] [address], ; [place] [address] disc disease M 51.36 ; Low back pain M 54.5 ; Chest pain, uns pecified type R07.9 and Foot pain, right M79 .671 IMMUNIZATIONS No Information SOCIAL HISTORY Tobacco Use: Social History Observation Description Date Details (start date - stop date) Current Smoker Sex Assigned At : Social History Observation Description Sex Assigned At Unknown PHQ9 Question Answer Notes Little interest or pleasure in doing things Nearly every day Feeling down, depressed, or hopeless More than half the days Trouble falling or staying asleep or sleeping too much Nearl y every day Feeling tired or having little energy Nearly every day Poor appetite or overeating More than half the days Feeling bad about yourself, or that you are a failure, Nearl y every day or have let yourself or your family down Trouble concentrating on things, such as reading the Nearly every day newspaper or watching television Moving or speaking so slowly that other people could More th an half the days have noticed; or the opposite, being so fidgety or restless that you have been moving around a lot more than usual Total Score 21 Interpretation Severe Depression Thoughts that you would be better off or of Not at all hurting yourself in some way Tobacco Use/Smoking Question Answer Notes Are you a current smoker How often do you smoke cigarettes? every day REASON FOR REFERRAL No Information VITAL SIGNS No information MEDICATIONS Medication SIG (Take, Route, Start Date End Date Status Frequency, Duration) Lactulose 20 GM/30ML 30 ml Orally Once a Active day for 90 days Amlodipine Besylate 10 MG 1 tablet Orally Once Jul, Active a day for 90 days Gabapentin 600 MG 1 tablet Orally three A ctive times a day Citalopram Hydrobromide 20 MG 1 tablet Orally Once Active a day for 90 days Ipratropium [place] 0.02 % as directed February, A ctive Inhalation 1 vial Three times a day for 30 days Carvedilol 25 MG as directed Orally Activ e Dulera 100-5 MCG/ACT 2 puffs Inhalation U nknown Twice a day for 90 days Lisinopril 20 MG 1 tablet Orally Once Act alberto a day Clonidine HCl 0.2 MG 1 tablet twice x 1 Mar, A ctive week then 1 tablet Orally twice a day Atorvastatin Calcium 20 MG 1 tablet Orally Once Active a day for 30 day(s) Zofran 4 MG as needed for nausea Dec, Active Orally every 8hrs prn nausea for 10 days Albuterol Sulfate (2.5 MG/3ML) inhale 1 vial by February, Active 0.083% mouth via nebulizer 3 times a day for 30 days Aspir-81 81 MG 1 tablet Orally Once Activ e a day for 30 day(s) HydrALAZINE HCl 25 MG 1 tablet with food Active Orally every 12 hrs [place] 10-325 MG 1 tablet as needed Active Orally every 6 hrs Losartan Potassium 25 MG 1 tablet Orally Once Active a day for 30 day(s) Hydrochlorothiazide 25 MG 1 tablet in the Active morning Orally Once a day for 30 day(s) Amiodarone HCl 200 MG 1 tablet Orally Once Unknown a day [place] Carbonate 600 MG 1 capsule at bedtime Active Orally Once a day for 90 days Isosorbide Mononitrate ER 30 MG 1 tablet in the Active morning Orally Once a day for 30 day(s) Ranolazine ER 500 MG 2 tablet Orally Twice Active a day Amitriptyline HCl 50 MG 1 tablet Orally Once Not-Taking a day for 30 days [place] Carbonate 600 MG TAKE 1 CAPSULE BY Active MOUTH DAILY AT BEDTIME for 90 PROCEDURES No Information RESULTS No Results REASON FOR VISIT referral MEDICAL (GENERAL) HISTORY Type Description Date Medical History HTN (hypertension) Medical History Hyperlipidemia Medical History Arteriosclerotic cardiovascular disease (ASCVD) Medical History Chronic generalized pain Medical History Chronic depressive person Medical History Abdominal pain Medical History Follow-up exam Medical History Acute myocardial infarction, subendocard ial infarction Surgical History cholecystectomy 2014 Surgical History rt lower leg 1991 Surgical History lower back 2011 Surgical History fusin on 2 vertebras 2013 Goals Section No Information Health Concerns No Information MEDICAL EQUIPMENT No Information MENTAL STATUS No Information FUNCTIONAL STATUS No Information ASSESSMENTS Encounter Date Diagnosis Notes Jul, Foot pain, right (ICD-10 - M79.671) Jul, Chest pain, unspecified type (ICD-10 - R 07.9) Jul, Low back pain (ICD-10 - M54.5) Jul, Lumbar degenerative disc disease (ICD-10 - M51.36) Jul, Left foot pain (ICD-10 - M79.672) PLAN OF TREATMENT No Information Insurance Providers Payer Name Payer Payer Insured Patient Coverage Coverage End Address Phone Name Relationship to Start Date Alvarez e Insured [facility] [phone] Jamil Macias self 2017 HEALTHCARE [id number] y D MEDICARE [facility] [id number]
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
--- OUTSIDE RECORDS SUMMARY | 2020-09-04 19:34 | XMS REPORT ---
:1960 Author Organization [facility] Address [address] [place] [place] [address] Care Team Providers Name Role Phone Heard Unavailable [phone] PROBLEMS Type Condition ICD9-CM [id number] Onset Condition SNOMED Code Notes Code Code Dates Status Problem HTN (hypertension) I10 Active 29199849 Problem Left foot pain M79.672 Active 291110280725802 Problem Abdominal pain R10.9 Active 36472715 Problem Closed displaced S92.312S Active 43652954 fracture of first metatarsal bone of left foot, sequela Problem Atrial fibrillation, I48.91 Active 68940391 unspecified type Problem History of coronary Z86.79 Active 443787452 artery disease Problem Hypertensive emergency I16.1 Active 953622215 862451 Problem Simple chronic J41.0 Active 98156941 bronchitis Problem Pure E78.00 Active 702109782 hypercholesterolemia Problem Other specified N39.498 Active 078593920 urinary incontinence Problem Chronic generalized R52 Active 66994178 pain Problem Essential hypertension I10 Active 59802887 Problem Hyperlipidemia E78.5 Active 20027929 Problem Constipation, K59.00 Active 90999979 unspecified constipation type Problem Elevated blood R03.0 Active 51221620 pressure reading Problem Bipolar 1 disorder F31.9 Active 906882028 Problem Chronic depressive F34.1 Active 26008278 person Problem Lumbar degenerative M51.36 Active 61768543 disc disease Problem Arteriosclerotic I25.10 Active 737638109112285 cardiovascular disease (ASCVD) Problem Symptomatic I95.89 Active 79459930 hypotension Problem Acute myocardial I21.4 Active 470971124 infarction, subendocardial infarction Problem 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 Active 9503882852 107 disease of [place] coronary artery without angina pectoris Problem Follow-up exam Z09 Active 933388295 Problem Complaints of memory R41.3 Active 426369882 disturbance Problem Primary insomnia F51.01 Active 9805481 Problem Hospital discharge Z09 Active 853109879 follow-up Problem Pulmonary emphysema, J43.9 Active 13905334 unspecified emphysema type Problem Chronic hepatitis C B18.2 Active 788719636 without hepatic coma Problem Cirrhosis of liver K74.60 Active 760507544 without ascites, unspecified hepatic cirrhosis type Problem Benign prostatic N40.1 Active 12810937846903 hyperplasia with lower urinary tract symptoms Problem Hypertensive urgency I16.0 Active 622379650 Problem Dementia without F03.90 Active 59590886 behavioral disturbance, unspecified dementia type Problem Other chronic pain G89.29 Active 85945791 Problem Chest pain, R07.9 Active 70871211 unspecified type Problem Cigarette nicotine F17.210 Active 43434559 dependence without complication Problem Panic attacks F41.0 Active 175191324 Problem 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 922289170 major depression Problem 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 Active 10568083 urgency Problem Acute on chronic I50.9 Active 284194988 congestive heart failure, unspecified heart failure type ALLERGIES Allergen (clinical Drug/Non Drug Allergy Reaction Allergy Type Onse t Date Status drug ingredient) documented on EMR penicillin rash Drug Allergy Active Cephalosporins vomiting Non Drug Active Allergy ENCOUNTERS from 1960 to 2020-08-14 Encounter Location Date Provider Diagnosis [facility] [address] [facility] [address] [facility] Jul, Na Heard Hyp ertensive urgency Family Medicine [address], [address]16[address] ; [place] [address] degenerative d isc disease M51.36 ; Low back pain M54.5 ; Other chronic pain G8 9.29 and Current non-adh erence to medical keiry tment Z91.19 IMMUNIZATIONS No Information SOCIAL HISTORY Tobacco Use: [...] REASON FOR REFERRAL No Information VITAL SIGNS Height 69.00 in Jul, Weight 157.0 lbs Jul, Temperature 98.6 degrees Fahrenheit Jul, BMI 23.18 kg/m2 Jul, Oximetry 98 % Jul, Respiratory Rate 18 /min Jul, Blood pressure systolic 233 mm Hg Jul, Blood pressure diastolic 110 mm Hg Jul, MEDICATIONS Medication SIG (Take, Route, Start Date [...] Active a day for 90 days Ipratropium [place] 0.02 % as directed February, A ctive [...] with food Active Orally every 12 hrs [place] 10-325 MG 1 tablet as needed Active Orally every 6 hrs Losartan Potassium 25 MG 1 tablet Orally Once Active a day for 30 day(s) Hydrochlorothiazide 25 MG 1 tablet in the Active morning Orally Once a day for 30 day(s) Amiodarone HCl 200 MG 1 tablet Orally Once Unknown a day [place] Carbonate 600 MG 1 capsule at bedtime Active Orally Once a day for 90 days Isosorbide Mononitrate ER 30 MG 1 tablet in the Active morning Orally Once a day for 30 day(s) Ranolazine ER 500 MG 2 tablet Orally Twice Active a day Amitriptyline HCl 50 MG 1 tablet Orally Once Not-Taking a day for 30 days [place] Carbonate 600 MG TAKE 1 CAPSULE BY Active MOUTH DAILY AT BEDTIME for 90 PROCEDURES No Information RESULTS No Results REASON FOR VISIT Hospital f/u -Back pain MEDICAL (GENERAL) HISTORY Type Description Date Medical [...] 2011 Surgical History fusin on 2 vertebras 2014 Goals Section No Information Health Concerns No Information MEDICAL EQUIPMENT No Information MENTAL STATUS No Information FUNCTIONAL STATUS No Information ASSESSMENTS Encounter Date Diagnosis Notes Jul, Other chronic pain (ICD-10 - G89.29) Jul, Low back pain (ICD-10 - M54.5) Jul, Current non-adherence to medical treatme nt (ICD-10 - Z91.19) Jul, Lumbar degenerative disc disease (ICD-10 - M51.36) Jul, Hypertensive urgency (ICD-10 - I16.0) PLAN OF TREATMENT Treatment Notes Assessment Notes Clinical Notes Hypertensive urgency -- Maintian a low salt DASH diet, exercise, weight loss and decrease stress recommended. Keep BP log and will review next visit. If blood pressure consistently above 140/90 return to clinic for adjustment of meds. Try to quit smoking if you currently smoke. Decrease caffeine intake if possible.-- pain control-- continue f/u with cardiology-- -- Medications reviewed and updated.-- Dietary and Lifestyle modifications discussed with patient regarding low fat low salt diet diet, exercise and weight management.-- Treatment options, risks and benefits, side effects reviewed in detail. Patient accepts risk.-- Advised on signs/symptoms to monitor and when to call clinic and/or visit the nearest ER. Patient verbalized understanding and agreed with plan.-- Greater than 15 minutes was spent with patient during this encounter, of which >50% of the time was spent counseling and coordinating care including but not limited to discussion of test results, diagnostic or treatment recommendations, prognosis, risks and benefits of management options, instructions, education, compliance and or risk reduction. 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 Insurance Providers Payer Name Payer Payer Insured Patient Coverage Coverage End Address Phone Name Relationship to Start Date Alvarez e Insured [facility] [phone] Jamil Macias self 2017 HEALTHCARE [id number] [address] y D MEDICARE HMO [facility] [employer] [id number]
[2020-09-04] MEDS ORDERED: ONDANSETRON 4 MG/2 ML VIAL ONE ×2 (19:59→22:03)
[2020-09-04 20:06] LABS: Protime INR 1.23
[2020-09-04] MEDS ORDERED: MORPHINE 4 MG/ML SYR ONE ×2 (20:09→22:03)
[2020-09-04 20:21] LABS: Albumin 4.2 g/dL (3.4-5.0); Bilirubin Direct 0.2 mg/dL (0-0.2); Bilirubin Total 0.6 mg/dL (0.2-1.0); Magnesium 2.4 mg/dL (1.8-2.4); Protein, Total 9.7 g/dL (6.4-8.2); Troponin (Emerg Dept Use Only) 0.09 ng/mL (0.0-0.045)
--- NOTE | 2020-09-04 20:21 | RAD REPORT ---
EXAM DESCRIPTION: RAD - Chest Single View - 09/04/2020 7:59 pm CLINICAL HISTORY: CHEST PAIN COMPARISON: Portable chest June 14 TECHNIQUE: AP portable chest image was obtained 09/04/2020 7:59 pm . FINDINGS: Lungs are clear. Interstitial pattern is diminished from prior imaging. No mass or consoli dation. Sternotomy wires are in place. Heart and vasculature are normal. No measurable pleural effusi on and no pneumothorax. No acute bony abnormality seen. No acute aortic findings suspected. IMPRESSION: No acute cardiopulmonary process. No significant change from comparison.
[2020-09-04 20:22] LABS: Absolute Lymphocytes (CBC) 1.3 K/uL (0.7-4.9); Basophils % 0.8 % (0-1.3); Hematocrit 43.8 % (39.6-49.0); Lymphocytes % 12.4 % (15.3-44.8); MPV 11.5 fL (7.6-11.3); RBC Red Blood Cell Count 4.83 M/uL (4.33-5.43)
[2020-09-04 20:56] LABS: Blood Morphology Comment NOT SEEN (NOT SEEN); Platelet Estimate ADEQ; Platelets, Giant PRESENT; White Blood Cell Scan OK (OK)
[2020-09-04] MEDS ORDERED: NA CHLORIDE 0.9% 500 ML ONE (21:05)
--- NOTE | 2020-09-04 21:33 | RAD REPORT ---
EXAM DESCRIPTION: CT - Chest Abdomen Pelvis W Cont - 09/04/2020 9:06 pm CLINICAL HISTORY: chest pain, abd pain COMPARISON: Angio Aorta For Dissection dated 05/19/2020 TECHNIQUE: Following dynamic enhancement using 100 milliliters nonionic IV contrast, axial imaging o f the chest, abdomen and pelvis was performed. Biphasic technique was utilized through the abdomen. Oral contrast was administered. All CT scans are performed using dose optimization technique as appropriate and may include automated exposure control or mA/KV adjustment according to patient size. FINDINGS: Lungs are clear of mass and infiltrate. Calcified pleural plaquing changes are present wit hout associated pleural based mass. No pleural effusion, pleural thickening or pneumothorax. No signi ficant aortic or pulmonary arterial tree finding. Mediastinal and hilar regions show no mass or abnor mal lymphadenopathy. No chest wall mass or axillary lymphadenopathy. No cardiomegaly or pericardial e ffusion. There is questionable left ventricular myocardial hypertrophy. CT sensitivity is limited. The liver, spleen and pancreas show no suspicious findings. Cholecystectomy clips are present. Biliar y tree is dilated but not outside of normal range for a post cholecystectomy patient. Biliary tree is similar to prior imaging. Symmetric renal function is seen with no mass or hydronephrosis. No adrena l abnormalities. Urinary bladder is mostly contracted. No prostate gland significant finding. No dilated bowel loops or focal bowel wall thickening. Minimal diverticulosis of the sigmoid colon. N o diverticulitis. No active colon process seen. Fluid fills but does not dilate the stomach. No gastr ic wall thickening or mass. Small hiatal hernia is seen. Disc and bony degenerative changes are present. Lumbar fusion changes are present. Neurostimulator de vice in place. No significant vascular findings. IMPRESSION: CT chest, abdomen and pelvis imaging shows no acute or emergent finding. Nonacute findings detailed in the body of the report.
[2020-09-04] MEDS ORDERED: LABETALOL 20 MG/4ML SYRINGE IV ONE (21:40)
--- NOTE | 2020-09-04 21:41 | EDPHYS ---
Physician Documentation [facility] Name: Blayne Macias Age: 59 yrs Sex: Male : 1960 Arrival Date: 09/04/2020 Time: 19:31 Bed 14 Private MD: ED Physician Peng Mitchell HPI: 09/04 20:10 This 59 yrs old Male presents to ER via EMS with complaints of Chest Pain. rn 20:10 The patient or guardian reports chest pain that is located primarily in the substernal rn area, epigastric area. Onset: 4 day(s) ago. The pain does not radiate. Associated signs and symptoms: Pertinent positives: abdominal pain, cough, dizziness, lightheadedness, shortness of breath, Pertinent negatives: palpitations. The chest pain is described as dull. Duration: The patient or guardian reports multiple episodes, that are intermittent. Modifying factors: The symptoms are alleviated by nothing. the symptoms are aggravated by nothing. Severity of pain: At its worst the pain was moderate in the emergency department the pain is unchanged. The patient has experienced similar episodes in the past. The patient has not recently seen a physician. Reports chest and abd pain for 4 days, assoc with sob, cough, nausea/vomiting. No trauma. No hemoptysis. . Historical: - Allergies: 19:45 Codeine; rv 19:45 PENICILLINS; rv - PMHx: 19:45 "electrical stimulator"; Atrial Fib; Back pain; Bipolar disorder; CAD; CHF; chronic rv back pain; Cirrhosis; COPD; Hepatitis; High Cholesterol; Hypertension; Pneumonia; - PSHx: 19:45 CABG; rv - Immunization history:: Adult Immunizations up to date. - Social history:: Smoking status: unknown. - Family history:: not pertinent. - Hospitalizations: : No recent hospitalization is reported. ROS: 20:10 Constitutional: + fever and chills Eyes: Negative for injury, pain, redness, and science intern, Neck: Negative for injury, pain, and swelling, Cardiovascular: + chest pain Respiratory: + cough and sob Abdomen/GI: + abd pain and nausea/vomiting Back: Negative for injury and pain, MS/Extremity: Negative for injury and deformity, Skin: Negative for injury, rash, and discoloration, Neuro: Negative for numbness, tingling, and seizure. Exam: 20:10 Constitutional: This is a well developed, well nourished patient who is awake, alert, rn and in no acute distress. Head/Face: Normocephalic, atraumatic. Eyes: Pupils equal round and reactive to light, extra-ocular motions intact. Lids and lashes normal. Conjunctiva and sclera are non-icteric and not injected. Cornea within normal limits. Periorbital areas with no swelling, redness, or edema. ENT: dry MM Cardiovascular: Tachycardic, regular Respiratory: Mild tachypnea, diminished at bases Abdomen/GI: soft, + tender bilateral upper quadrants Skin: Warm, dry MS/ Extremity: Pulses equal, no cyanosis. Neurovascular intact. Full, normal range of motion. Equal circumference. Neuro: Awake and alert, GCS 15 20:42 ECG was reviewed by the Attending Physician. rn Vital Signs: 19:36 BP 213 / 127; Pulse 103; Resp 26; Temp 99.7; Pulse Ox 99% ; Weight 68.04 kg; Height 5 rv ft. 9 in. (175.26 cm); Pain 8/10; 20:34 BP 221 / 107; Pulse 95; Resp 21; Pulse Ox 97% on R/A; rv 20:53 Pain 7/10; rv 21:33 BP 221 / 107; Pulse 81; Resp 19; Pulse Ox 99% on R/A; rv 22:00 BP 217 / 109; Pulse 77; Resp 17; Pulse Ox 98% on R/A; rv 22:30 BP 220 / 114; Pulse 83; Resp 18; Pulse Ox 99% on R/A; rv 23:00 BP 166 / 106; Pulse 85; Resp 17; Pulse Ox 97% on R/A; rv 23:30 BP 144 / 89; Pulse 90; Resp 16; Pulse Ox 96% on R/A; rv 09/05 00:00 BP 143 / 86; Pulse 99; Resp 18; Pulse Ox 96% on R/A; rv 09/04 19:36 Body Mass Index 22.15 (68.04 kg, 175.26 cm) rv MDM: 09/04 19:33 Patient medically screened. rn 21:37 Differential diagnosis: abnormal EKG, acute myocardial infarction, acute pericarditis, rn anxiety, coronary artery disease chest wall pain, congestive heart failure costochondritis, gastroesophageal reflux disease (GERD), pancreatitis, peptic ulcer disease, pleurisy, pneumonia, pneumothorax, stable angina, thoracic aortic disection, unstable angina. The patient was given aspirin in the Emergency Department. Data reviewed: vital signs, nurses notes, lab test result(s), EKG, radiologic studies, CT scan, plain films, and as a result, I will admit patient. Counseling: I had a detailed discussion with the patient and/or guardian regarding: the historical points, exam findings, and any diagnostic results supporting the discharge/admit diagnosis, the presence of at least one elevated blood pressure reading (>120/80) during this emergency department visit, lab results, radiology results, the need for further work-up and treatment in the hospital. Response to treatment: the patient's symptoms have mildly improved after treatment, and as a result, I will admit patient. Admission orders: after a detailed discussion of the patient's condition and case, the admit orders are written by me. ED course: Pt with elevated troponin, possibly related to CHF, review of medical records shows clean cath somewhat recently, no acute findings on CT chest/abdomen/pelvis. Will admit to hospitalist service for further evaluation. . 22:26 ED course: Attempted admission to Dr. James, wants patient transferred for rn [facility] emergency, believes needs cardene drip, and no ICU beds here. Initiated transfer to [facility] for ICU level care. . 22:44 ED course: No ICU beds available at this time at [facility], will have to admit here. . rn 09/04 19:40 Order name: Basic Metabolic Panel; Complete Time: 20:44 rn 09/04 19:40 Order name: CBC with Diff; Complete Time: 21:00 rn 09/04 19:40 Order name: LFT's; Complete Time: 20:44 rn 09/04 19:40 Order name: Magnesium; Complete Time: 20:44 rn 09/04 19:40 Order name: NT PRO-BNP; Complete Time: 20:44 rn 09/04 19:40 Order name: PT-INR; Complete Time: 20:28 rn 09/04 19:40 Order name: Troponin (emerg Dept Use Only); Complete Time: 20:44 rn 09/04 19:40 Order name: Flu rn 09/04 19:40 Order name: COVID-19 rn 09/04 19:40 Order name: Procalcitonin; Complete Time: 21:36 09/04 19:40 Order name: Lactate; Complete Time: 20:44 rn 09/04 19:40 Order name: AMMONIA; Complete Time: 20:44 09/04 20:35 Order name: CBC Smear Scan; Complete Time: 21:00 [facility] 09/04 23:59 Order name: Lactate Sepsis 2 HR Follow-up [facility] 09/04 19:40 Order name: XRAY Chest (1 view); Complete Time: 20:28 09/04 19:40 Order name: CT Chest, Abdomen, Pelvis - W/Contrast; Complete Time: 21:36 09/05 03:54 Order name: CBC with Automated Diff [facility] 09/05 04:15 Order name: Troponin I [facility] 09/05 04:55 Order name: Comprehensive Metabolic Panel [facility] 09/05 04:55 Order name: T4 Free [facility] 09/05 04:55 Order name: Magnesium [facility] 09/05 04:55 Order name: Thyroid Stimulating Hormone [facility] 09/05 09:55 Order name: Troponin I [facility] 09/04 19:40 Order name: EKG; Complete Time: 19:41 09/04 19:40 Order name: Cardiac monitoring; Complete Time: 20:39 09/04 19:40 Order name: EKG - Nurse/Tech; Complete Time: 20:39 09/04 19:40 Order name: IV Saline Lock; Complete Time: 20:39 09/04 19:40 Order name: Labs collected and sent; Complete Time: 20:39 09/04 19:40 Order name: O2 Per Protocol; Complete Time: 20:39 09/04 19:40 Order name: O2 Sat Monitoring; Complete Time: 20:39 rn EC:42 Rate is 105 beats/min. Rhythm is regular. QRS Scott is Normal. OK interval is normal. rn QRS interval is normal. QT interval is normal. T waves are Normal. No ST changes noted. Clinical impression: Sinus tachycardia. Interpreted by me. Reviewed by me. Administered Medications: 19:55 Drug: morphine 4 mg {Note: rass 0.} Route: IVP; Site: right antecubital; rv 20:53 Follow up: Pain 7/10 Adult; Response: No adverse reaction; Pain is decreased; RASS: rv Alert and Calm (0) 19:55 Drug: Zofran (Ondansetron) 4 mg Route: IVP; Site: right antecubital; rv 20:53 Follow up: Response: No adverse reaction; Marked relief of symptoms; Nausea is decreasedrv 20:53 Drug: NS 0.9% 500 ml Route: IV; Rate: bolus; Site: right antecubital; rv 22:00 Follow up: IV Status: Completed infusion; IV Intake: 500ml rv 21:31 Drug: Labetalol 10 mg Route: IVP; Infused Over: 2 mins; Site: right antecubital; rv 21:40 Not Given (given by EMS): Aspirin Chewable Tablet 324 mg PO once; 81 mg tablets x 4 rv 21:55 Drug: morphine 4 mg Route: IVP; Site: right antecubital; rv 09/05 00:14 Follow up: Response: No adverse reaction; Marked relief of symptoms rv 09/04 21:55 Drug: Zofran (Ondansetron) 4 mg Route: IVP; Site: right antecubital; rv 09/05 00:14 Follow up: Response: No adverse reaction rv 09/04 21:56 Drug: Motrin 800 mg Route: PO; rv 09/05 00:14 Follow up: Response: No adverse reaction rv 09/04 22:00 Drug: Nitroglycerin Ointment 2 % 1 inches Route: Transdermal; Site: anterior chest wall;rv 22:45 Drug: niCARdipine (25mg/250mL) 5 mg/h Route: IV; Rate: calculated rate; Site: right rv antecubital; 09/05 00:13 Follow up: Rate change 2.5 mg/hr; IV SiteChange: right upper arm; IV SiteChange Reason: rv Infiltration 00:14 Follow up: IV Status: Infusion continued upon admission rv Disposition: 09/04/20 21:40 Hospitalization ordered by Juwan James for Inpatient Admission. Preliminary diagnosis are Chest pain, unspecified, Malignant Hypertension, Elevated troponin. - Bed requested for Telemetry/MedSurg (Inpatient). - Status is Inpatient Admission. ph - Condition is Stable. - Problem is new. - Symptoms have improved. Signatures: Dispatcher [employer] EDMS Letty Mtz Brenda, RN RN Peng Lovell MD MD rn Hall, Patricia, RN RN ph Klever Bhardwaj, RN RN rv Corrections: (The following items were deleted from the chart) 09/04 22:46 21:40 Hospitalization Ordered by Juwan James DO for Observation. Preliminary rn diagnosis is Chest pain, unspecified; Malignant Hypertension; Elevated troponin. Bed requested for Telemetry/MedSurg (observation). Status is Observation. Condition is Stable. Problem is new. Symptoms have improved. rn 09/05 00:10 09/04 22:46 09/04/2020 21:40 Hospitalization Ordered by Juwan James DO for Inpatient bb Admission. Preliminary diagnosis is Chest pain, unspecified; Malignant Hypertension; Elevated troponin. Bed requested for Intensive Care Unit. Status is Inpatient Admission. Condition is Stable. Problem is new. Symptoms have improved. rn 09/05 12:28 00:10 09/04/2020 21:40 Hospitalization Ordered by Juwan James DO for Inpatient bd Admission. Preliminary diagnosis is Chest pain, unspecified; Malignant Hypertension; Elevated troponin. Bed requested for [facility] ER HOLD. Status is Inpatient Admission. Condition is Stable. Problem is new. Symptoms have improved. bb 13:48 12:28 09/04/2020 21:40 Hospitalization Ordered by Juwan Erika MENDOZA for Inpatient ph Admission. Preliminary diagnosis is Chest pain, unspecified; Malignant Hypertension; Elevated troponin. Bed requested for Telemetry/MedSurg (Inpatient). Status is Inpatient Admission. Condition is Stable. Problem is new. Symptoms have improved. bd
--- NOTE | 2020-09-04 21:41 | ER ---
Nurse's Notes [facility] Name: Blayne Macias Age: 59 yrs Sex: Male : 1960 Arrival Date: 09/04/2020 Time: 19:31 Bed 14 Private MD: Diagnosis: Chest pain, unspecified;Malignant Hypertension;Elevated troponin Presentation: 09/04 19:36 Chief complaint: EMS states: PATIENT IS COMPLAINING OF NAUSEA AND VOMITING SINCE rv YESTERDAY. THEN ALL DAY TODAY, WITH CHEST PAIN. DESCRIBED IT PRESSURE, MIDSTERNAL, RADIATING TO LEFT SHOULDER AND LEFT JAW. Coronavirus screen: Client denies travel out of the [place] in the last 14 days. Ebola Screen: No symptoms or risks identified at this time. Initial Sepsis Screen: Does the patient meet any 2 criteria? RR > 20 per min. HR > 90 bpm. Does the patient have a suspected source of infection? No. Patient's initial sepsis screen is negative. Risk Assessment: Do you want to hurt yourself or someone else? Patient reports no desire to harm self or others. Onset of symptoms was September 03, 2020. 19:36 Method Of Arrival: EMS: [facility] rv 19:36 Acuity: SENTHIL 3 rv Triage Assessment: 19:45 General: Appears uncomfortable, Behavior is calm, cooperative. Pain: Complains of pain rv in mid-sternal area Pain radiates to left jaw and left arm Pain currently is 9 out of 10 on a pain scale. Quality of pain is described as pressure. 19:45 EENT: No signs and/or symptoms were reported regarding the EENT system. Neuro: Level of rv Consciousness is awake, alert, obeys commands, Oriented to person, place, time, situation. Cardiovascular: Patient's skin is warm and dry. Rhythm is sinus rhythm. Respiratory: Airway is patent. Derm: Skin is intact. Historical: - Allergies: 19:45 Codeine; rv 19:45 PENICILLINS; rv - PMHx: 19:45 "electrical stimulator"; Atrial Fib; Back pain; Bipolar disorder; CAD; CHF; chronic rv back pain; Cirrhosis; COPD; Hepatitis; High Cholesterol; Hypertension; Pneumonia; - PSHx: 19:45 CABG; rv - Immunization history:: Adult Immunizations up to date. - Social history:: Smoking status: unknown. - Family history:: not pertinent. - Hospitalizations: : No recent hospitalization is reported. Screenin:35 Abuse screen: Denies threats or abuse. Denies injuries from another. Nutritional rv screening: No deficits noted. Tuberculosis screening: No symptoms or risk factors identified. Fall Risk None identified. Assessment: 20:53 Reassessment: BLOOD PRESSURE IS INCREASED. PATIENT COMPLAINING OF CHEST PAIN, EVEN rv AFTER DOSE OF MORPHINE. REFERRED TO DR MITCHELL. NO ORDERS RECEIVED FOR BLOOD PRESSURE. NS BOLUS STARTED. 21:00 Pain: Pain began 1 day ago. rv 21:33 Reassessment: troponin and potassium level referred to Dr Mitchell. patient is back from rv CT scan. awaiting result. Cardiovascular: Rhythm is sinus rhythm. 21:55 Reassessment: PATIENT UPDATED ON THE PLAN OF CARE. PATIENT AGREED. rv Vital Signs: 19:36 BP 213 / 127; Pulse 103; Resp 26; Temp 99.7; Pulse Ox 99% ; Weight 68.04 kg; Height 5 rv ft. 9 in. (175.26 cm); Pain 8/10; 20:34 BP 221 / 107; Pulse 95; Resp 21; Pulse Ox 97% on R/A; rv 20:53 Pain 7/10; rv 21:33 BP 221 / 107; Pulse 81; Resp 19; Pulse Ox 99% on R/A; rv 22:00 BP 217 / 109; Pulse 77; Resp 17; Pulse Ox 98% on R/A; rv 22:30 BP 220 / 114; Pulse 83; Resp 18; Pulse Ox 99% on R/A; rv 23:00 BP 166 / 106; Pulse 85; Resp 17; Pulse Ox 97% on R/A; rv 23:30 BP 144 / 89; Pulse 90; Resp 16; Pulse Ox 96% on R/A; rv 1112 00:00 BP 143 / 86; Pulse 99; Resp 18; Pulse Ox 96% on R/A; rv 09/04 19:36 Body Mass Index 22.15 (68.04 kg, 175.26 cm) rv ED Course: 09/04 19:31 Patient arrived in ED. cf2 19:33 Peng Mitchell MD is Attending Physician. rn 19:35 Maintain EMS IV. Dressing intact. Good blood return noted. Site clean \\T\\ dry. Gauge \\T\\ rv site: g20 rigth ac. 19:35 No provider procedures requiring assistance completed. Patient maintains SpO2 rv saturation greater than 95% on room air. 19:36 Klever Bhardwaj, RN is Primary Nurse. rv 19:38 Triage completed. rv 19:45 Arm band placed on right wrist. Patient placed in the treatment room, on a stretcher, rv Patient notified of wait time. 19:57 XRAY Chest (1 view) In Process Unspecified. EDMS 20:37 Patient has correct armband on for positive identification. drapery installer on. Pulse rv ox on. NIBP on. 21:07 CT Chest, Abdomen, Pelvis - W/Contrast In Process Unspecified. EDMS 21:39 Nic Mitchell MD is Hospitalizing Provider. rn 21:39 Juwan James DO is Hospitalizing Provider. rn 22:30 Transfer initiated to [facility], No ICU Beds at our facility. mt 22:45 [facility] called to notify that they do not have any ICU beds. mt 23:47 Inserted MIDLINE RIGHT UPPER ARM, [id number]. rv 09/05 00:17 IV is patent, with fluids infusing freely, Patient admitted, IV remains in place. rv Administered Medications: 09/04 19:55 Drug: morphine 4 mg {Note: rass 0.} Route: IVP; Site: right antecubital; rv 20:53 Follow up: Pain 7/10 Adult; Response: No adverse reaction; Pain is decreased; RASS: rv Alert and Calm (0) 19:55 Drug: Zofran (Ondansetron) 4 mg Route: IVP; Site: right antecubital; rv 20:53 Follow up: Response: No adverse reaction; Marked relief of symptoms; Nausea is decreasedrv 20:53 Drug: NS 0.9% 500 ml Route: IV; Rate: bolus; Site: right antecubital; rv 22:00 Follow up: IV Status: Completed infusion; IV Intake: 500ml rv 21:31 Drug: Labetalol 10 mg Route: IVP; Infused Over: 2 mins; Site: right antecubital; rv 21:40 Not Given (given by EMS): Aspirin Chewable Tablet 324 mg PO once; 81 mg tablets x 4 rv 21:55 Drug: morphine 4 mg Route: IVP; Site: right antecubital; rv 09/05 00:14 Follow up: Response: No adverse reaction; Marked relief of symptoms rv 09/04 21:55 Drug: Zofran (Ondansetron) 4 mg Route: IVP; Site: right antecubital; rv 09/05 00:14 Follow up: Response: No adverse reaction rv 09/04 21:56 Drug: Motrin 800 mg Route: PO; rv 09/05 00:14 Follow up: Response: No adverse reaction rv 09/04 22:00 Drug: Nitroglycerin Ointment 2 % 1 inches Route: Transdermal; Site: anterior chest wall;rv 22:45 Drug: niCARdipine (25mg/250mL) 5 mg/h Route: IV; Rate: calculated rate; Site: right rv antecubital; 09/05 00:13 Follow up: Rate change 2.5 mg/hr; IV SiteChange: right upper arm; IV SiteChange Reason: rv Infiltration 00:14 Follow up: IV Status: Infusion continued upon admission rv Intake: 09/04 22:00 IV: 500ml; Total: 500ml. rv Outcome: 21:40 Decision to Hospitalize by Provider. rn 09/05 00:16 Admitted to ER Hold. Please see [facility] for further documentation. rv Condition: improved Instructed on the need for admit. 13:48 Patient left the ED. ph Signatures: Dispatcher [employer] Peng Hancock MD MD rn Hall, Patricia, RN RN ph [facility] Klever Bhardwaj RN RN rv [place], [place] 2 Corrections: (The following items were deleted from the chart) 09/04 22:38 22:37 Transfer initiated to [facility], No ICU Beds at our facility [facility]
[2020-09-04] MEDS ORDERED: IBUPROFEN 400 MG TAB ONE (22:03)
[2020-09-04] MEDS ORDERED: NITROGLYCERIN 1 GM PKT TD ONE (22:11)
[2020-09-04] MEDS ORDERED: NA CHLORIDE 0.9% 250 ML ONE (22:43)
[2020-09-04] MEDS ORDERED: Nicardipine/NS 25 MG/250 ML KIT IV ONE (22:43)
[2020-09-04] MEDS ORDERED: ACETAMINOPHEN 500 MG TAB PO PRN (23:49)
[2020-09-04] MEDS ORDERED: Nicardipine in Saline, Iso-Osm 20 MG/200 ML IV.SOLN. IV PRN (23:49)
[2020-09-04] MEDS ORDERED: MORPHINE 2 MG/ML SYR IV PRN (23:49)
[2020-09-04] MEDS ORDERED: FUROSEMIDE 40 MG/4 ML VIAL IV SCH (23:49)
--- NOTE | 2020-09-05 | P.HP ---
Certification for Inpatient Patient admitted to: Inpatient With expected LOS: >2 Midnights Patient will require the following post-hospital care: None Practitioner: I am a practitioner with admitting privileges, knowledge of patient current condition, hospital course, and medical plan of care. Services: Services provided to patient in accordance with Admission requirements found in Title 42 Section 412.3 of the Code of Federal Regulations <Gilberto Nevarez - Last Filed: 09/04/20 23:54> Patient History Date of Service: 09/04/20 Primary Care Provider: Dr. Heard Reason for admission: Hypertensive emergency History of Present Illness: 59-year-old male with history of CAD status post CABG, atrial fibrillation on chronic anticoagulation therapy, hypertension, COPD, history of tobacco abuse, hyperlipidemia, chronic diastolic congestive heart failure presents emergency department for chest pain. Patient reports that he has been having chest pain that started this morning, described as pressure radiating to left shoulder and jaw, and not relieved or exacerbated by anything, no associated signs or symptoms. Patient has had similar episodes to this in the past, had stress test and heart catheterization in March of this year with recommendation for medical management. Patient also reports he has been having vomiting over the course of the last few days and has been unable to hold down his blood pressure medications. Patient's blood pressure in the emergency department greater than 220 systolic, initial troponin 0.09. Labs also remarkable for elevated BNP 36340, creatinine 1.64, GFR 43. Patient's GFR baseline appears to be 60. Patient was given labetalol and nitro paste in the emergency department in addition to morphine, blood pressure remains elevated at greater than 200 systolic. Patient was started on nicardipine drip. As there were no ICU beds in attempt to transfer patient was made for hypertensive emergency with the ICU bed but all receiving facility is were at capacity. ED provider wishes to admit patient for further evaluation and management. When I saw the patient in the emergency department is awake, alert, oriented x3. Patient was on the Cardene drip, blood pressure was improved to 160 systolic. Patient unaware of his home medications, does not have this at this time. Will admit patient to ICU for further evaluation and management. - Past Medical/Surgical History Diabetic: No -: Chronic back pain -: HTN -: CAD, CABG times 2 vessels in December 2015 -: COPD -: Exposure to asbestosis -: Bipolar disorder -: Hyperlipidemia -: Severe sleep apnea -: Chronic pain syndrome -: CHF -: afib -: pneumonia -: Right Leg surgery -: Back surgery -: Cholecystectomy -: Cardiac catheterization -: CABG- Double bypass 12/2015 -: Neck Surgery -: Cervical fusion -: L4-L5-S1 fusion Psychosocial/ Personal History: Single, Children-1, Work-Disabled due to back. - Family History Mother -: Cancer Father -: Heart disease, Cancer - Social History Smoking Status: Former smoker Alcohol use: No CD- Drugs: No Caffeine use: No Place of Residence: Home <Gilberto Nevarez - Last Filed: 09/04/20 23:54> Date of Service: 09/05/20 Home medications list reviewed: Yes <Juwan James - Last Filed: 09/05/20 09:15> Allergies Penicillins Allergy (Intermediate, Verified 09/05/20 00:31) Hives/Rash codeine [From Tylenol-Codeine] Allergy (Verified 09/05/20 00:31) Itching Home Medications: Amiodarone HCl 100 mg PO BID 03/29/20 Amlodipine [Norvasc*] 10 mg PO DAILY 03/29/20 Atorvastatin Calcium [Lipitor*] 20 mg PO BEDTIME 03/29/20 Citalopram [Celexa*] 20 mg PO DAILY 03/29/20 Losartan Potassium [Cozaar*] 25 mg PO DAILY 03/29/20 Potassium Chloride [Klor-Con] 20 meq PO DAILY 03/29/20 Clopidogrel Bisulfate [Plavix*] 75 mg PO DAILY tablet 04/03/20 Gifford Carbonate [Lithotabs *] 600 mg PO BEDTIME tab 04/03/20 Carvedilol [Coreg] 25 mg PO BID 06/14/20 Hydralazine [Apresoline*] 50 mg PO TID 06/14/20 Isosorbide Mononitrate [Isosorbide Mononitrate ER] 60 mg PO DAILY 06/14/20 Furosemide [Lasix] 40 mg PO BIDL #60 tab 06/16/20 Review of Systems 10-point ROS is otherwise unremarkable Cardiovascular: Chest Pain Gastrointestinal: Nausea, Vomiting <Gilberto Nevarez - Last Filed: 09/04/20 23:54> Physical Examination - Physical Exam General: Alert, In no apparent distress HEENT: Atraumatic, PERRLA, Mucous membr. moist/pink Neck: Supple, 2+ carotid pulse no bruit, No LAD Respiratory: Clear to auscultation bilaterally, Normal air movement Cardiovascular: Normal S1 S2, Irregular heart rate/rhythm (Atrial fibrillation, rate controlled) Capillary refill: <2 Seconds Gastrointestinal: Normal bowel sounds, No tenderness Musculoskeletal: No tenderness Integumentary: No rashes Neurological: Normal gait, Normal speech, Normal strength at 5/5 x4 extr, Normal tone, Normal affect - Studies Laboratory Data (last 24 hrs) 09/04/20 19:40: PT 14.5 H, INR 1.23 09/04/20 19:40: WBC 10.3, Hgb 15.2, Hct 43.8, Plt Count 256 09/04/20 19:40: Sodium 141, Potassium 3.0 L, BUN 15, Creatinine 1.64 H, Glucose 163 H, Magnesium 2.4, Total Bilirubin 0.6, AST 33, ALT 37, Alkaline Phosphatase 132 H <Gilberto Nevarez - Last Filed: 09/04/20 23:54> - Studies Laboratory Data (last 24 hrs) 09/04/20 19:40: PT 14.5 H, INR 1.23 09/04/20 19:40: WBC 10.3, Hgb 15.2, Hct 43.8, Plt Count 256 09/04/20 19:40: Sodium 141, Potassium 3.0 L, BUN 15, Creatinine 1.64 H, Glucose 163 H, Magnesium 2.4, Total Bilirubin 0.6, AST 33, ALT 37, Alkaline Phosphatase 132 H <Juwan James - Last Filed: 09/05/20 09:15> Assessment and Plan - Plan Assessment Hypertensive emergency with underlying primary hypertension CAD status post CABG Atrial fibrillation on chronic anticoagulation therapy KAT on CKD 3 Hyperlipidemia Bipolar disorder Chronic pain Plan Hypertensive emergency with underlying primary hypertension: Cardene drip initiated, will trend troponin levels. patient admitted to the intensive care unit. Will restart home medications once verified. Cardiology consult in place. CT head without acute findings. CAD status post CABG: Continue home medications, trend troponins. Cardiology consult in place. Atrial fibrillation on chronic anticoagulation therapy: Obtain and continue home medications. Patient poor historian, unable to tell me his home medications. KAT on CKD 3: Likely related to cardiorenal syndrome. Will give patient IV Lasix for diuresis. If renal function worsens may require IV fluids. Consult nephrology as needed. Hyperlipidemia: Obtain and continue home medications. Bipolar disorder: Obtain and continue home medications. Chronic pain: Continue p.r.n. medications. Patient states he was fired by his pain management doctor. Reports allergies to codeine. Discharge Plan: Home Plan to discharge in: Greater than 2 days - Advance Directives Does patient have a Living Will: Yes Does patient have a Durable POA for Healthcare: Yes - Code Status/Comfort Care Code Status Assessed: Yes (Full code) Critical Care: No Time Spent Managing Pts Care (In Minutes): 55 <Gilberto Nevarez - Last Filed: 09/04/20 23:54> - Plan Case discussed in detail with nurse practitioner. Agree with evaluation, assessment and plan of care. Blood pressure low at this time. Will provide fluid bolus. Will adjust blood pressure medication. Will discuss with cardiology. Restart home medications including amiodarone for AFib. Will need to obtain and verify home medication. Will continue monitor closely. <Juwan James - Last Filed: 09/05/20 09:15>
[2020-09-05] MEDS ORDERED: FUROSEMIDE 40 MG/4 ML VIAL ONE (00:06)
[2020-09-05 00:38] VITALS: BMI 22.1
[2020-09-05] MEDS ORDERED: AMLODIPINE 10 MG TAB PO ONE (00:38)
[2020-09-05] MEDS ORDERED: carvediloL 25 MG TAB PO ONE (00:38)
[2020-09-05] MEDS ORDERED: AMLODIPINE 10 MG TAB ONE ×2 (01:56→09:05)
[2020-09-05] MEDS: HYDRALAZINE HCL 25 MG TABLET PO ONE ×2 (02:03→02:04)
[2020-09-05] MEDS ORDERED: carvediloL 25 MG TAB ONE (02:04)
[2020-09-05] MEDS ORDERED: HYDRALAZINE HCL 25 MG TABLET ONE (02:04)
[2020-09-05] MEDS: MORPHINE 4 MG/ML SYR IV PRN ×2 (03:35→08:45)
[2020-09-05 03:45] LABS: Absolute Lymphocytes (CBC) 2.3 K/uL (0.7-4.9); Basophils % 0.8 % (0-1.3); Hematocrit 45.2 % (39.6-49.0); Lymphocytes % 16.4 % (15.3-44.8); MPV 10.9 fL (7.6-11.3); RBC Red Blood Cell Count 4.95 M/uL (4.33-5.43)
[2020-09-05] MEDS ORDERED: MORPHINE 4 MG/ML SYR ONE ×2 (03:50→08:40)
[2020-09-05 04:33] LABS: Albumin 4.2 g/dL (3.4-5.0); Bilirubin Total 0.5 mg/dL (0.2-1.0); Magnesium 2.5 mg/dL (1.8-2.4); Protein, Total 9.2 g/dL (6.4-8.2); Thyroid Stimulating Hormone 1.7 uIU/mL (0.360-3.740)
[2020-09-05 04:54] LABS: Potassium 2.9 mmol/L (3.5-5.1)
[2020-09-05] MEDS: KCL 20 MEQ/100 mL IVPB 20 MEQ/100 ML BAG IV SCH ×3 (06:00→10:00)
[2020-09-05] MEDS ORDERED: NA CHLORIDE 0.9% 250 ML ONE (06:18)
[2020-09-05] MEDS ORDERED: KCL 20 MEQ/100 mL IVPB 20 MEQ/100 ML BAG IV ONE ×2 (06:18→09:05)
[2020-09-05] MEDS ORDERED: NA CHLORIDE 0.9% 500 ML IV ONE (06:20)
[2020-09-05] MEDS ORDERED: NA CHLORIDE 0.9% 500 ML ONE (06:34)
[2020-09-05] MEDS: CITALOPRAM 10 MG TABLET PO SCH (09:00)
[2020-09-05] MEDS ORDERED: LOSARTAN POTASSIUM 50 MG TABLET PO SCH (09:00)
[2020-09-05] MEDS: ISOSORBIDE MONO SR 60 MG TAB PO SCH (09:00)
[2020-09-05] MEDS: NICOTINE 21 MG/PAT TD SCH (09:00)
[2020-09-05] MEDS: CLOPIDOGREL 75 MG TABLET PO SCH (09:00)
[2020-09-05] MEDS ORDERED: FUROSEMIDE 40 MG TABLET PO SCH (09:00)
[2020-09-05] MEDS: AMLODIPINE 10 MG TAB PO SCH (09:00)
[2020-09-05] MEDS: HEPARIN 5000 UNIT/ML 1 ML VIAL SQ SCH ×2 (09:00→21:00)
[2020-09-05] MEDS: AMIODARONE HCL 200 MG TAB PO SCH ×2 (09:00→22:15)
[2020-09-05] MEDS ORDERED: CLOPIDOGREL 75 MG TABLET ONE (09:04)
[2020-09-05] MEDS ORDERED: NICOTINE 21 MG/PAT TD ONE (09:04)
[2020-09-05] MEDS ORDERED: HEPARIN 5000 UNIT/ML 1 ML VIAL ONE (09:05)
[2020-09-05] MEDS ORDERED: AMIODARONE HCL 200 MG TAB ONE (09:05)
--- NOTE | 2020-09-05 09:20 | P.PN ---
Subjective Date of Service: 09/05/20 Primary Care Provider: Dr. Heard Chief Complaint: Hypertensive emergency Subjective: Improving, Other (Patient alert, cooperative. Blood pressure low this morning. Patient without significant chest pain or dizziness.) Physical Examination - Vital Signs Temperature: 97 F Blood Pressure: 97/61 Pulse: 71 Respirations: 16 Pulse Ox (%): 97 - Physical Exam General: Alert, In no apparent distress, Oriented x3, Cooperative HEENT: Atraumatic Neck: Supple Respiratory: Clear to auscultation bilaterally, Normal air movement Cardiovascular: Normal pulses, Regular rate/rhythm Gastrointestinal: Normal bowel sounds, Soft and benign, Non-distended, No tenderness, No masses, No rebound, No guarding Integumentary: No erythema, No warmth, No cyanosis Neurological: Normal speech, Normal strength at 5/5 x4 extr, Normal tone, Normal affect - Studies Laboratory Data (last 24 hrs) 09/04/20 19:40: PT 14.5 H, INR 1.23 09/04/20 19:40: WBC 10.3, Hgb 15.2, Hct 43.8, Plt Count 256 09/04/20 19:40: Sodium 141, Potassium 3.0 L, BUN 15, Creatinine 1.64 H, Glucose 163 H, Magnesium 2.4, Total Bilirubin 0.6, AST 33, ALT 37, Alkaline Phosphatase 132 H Medications List Reviewed: Yes Assessment & Plan Discharge Plan: Home Plan to discharge in: 48 Hours Physician Review Additional Text: Impression: Hypertensive emergency with underlying primary hypertension suspect noncompliance with medication CAD status post CABG Atrial fibrillation on chronic anticoagulation therapy KAT on CKD 3 Hyperlipidemia Bipolar disorder Chronic pain Plan Hypertensive emergency with underlying primary hypertension suspect non comp liance with medication: Cardene drip was initiated. Will discontinue Cardene drip at this time. Oral medications restarted last night. Blood pressure low this morning. Will provide fluid bolus. Will adjust hypertensive medications accordingly. Will continue monitor closely. Once blood pressure stable will transition to the floor. Will check urine drug screen. Patient reports compliance. Compliance addressed in detail with patient. Will confirm with PCP and Cardiology. Anticipate improvement over the next 24 hr with possible discharge at that time. CAD status post CABG: Continue monitor closely. Cardiology had recent heart catheterization recommending medical management. Restart home meds.. Atrial fibrillation not on chronic anticoagulation therapy: Restart amiodarone. Patient does not appear to be on any chronic anti coagulation therapy. Patient likely high risk for fall and compliance. Will discuss further with cardiology. KAT on CKD 3: Will continue to monitor closely. Hold IV Lasix and oral Lasix at this time. Will provide IV fluids. Continue to monitor closely. Hyperlipidemia: Restart home medication Bipolar disorder: Restart home medication including lithium. Chronic pain: Will provide medication as needed. Patient reports that he no longer sees pain management due to compliance issues. Patient may require assistance as an outpatient with pain management in the future. Time Spent Managing Pts Care (In Minutes): 55
[2020-09-05] MEDS ORDERED: INFLUENZA VACCINE (for 3y+) 0.5 ML DOSE IMVAC ONE (10:00)
[2020-09-05] MEDS ORDERED: TRAMADOL HCL 50 MG TAB PO PRN (10:59)
[2020-09-05] MEDS: HYDROCODONE/APAP 7.5/325 MG TAB PO PRN (11:40)
[2020-09-05] MEDS ORDERED: HYDROCODONE/APAP 7.5/325 MG TAB ONE (11:48)
--- NOTE | 2020-09-05 15:34 | CON ---
Date of Consultation: 09/05/2020 Chief Complaint: Chest pressure. History Of Present Illness: This is a 59-year-old male with known history of coronary artery disease , two-vessel bypass, atrial fibrillation, hypertension, COPD, active smoker, dyslipidemia, congestive heart failure; presented with chest pain, left-sided, pressure-like, radiating to the neck and jaw, not related to exertion, comes and goes. The patient reported negative stress test about 2 months ag o and apparently had a heart catheterization also this year, and medical management was recommended. Past Medical History: As outlined above in HPI. Medications: Refer to reconciliation sheet for detailed list. Allergies: PENICILLIN AND CODEINE. Social History: He is an active smoker. Drinks on occasion. Family History: No premature coronary artery disease or cancer. Review of Systems: All systems reviewed and they were negative except mentioned in the HPI. Physical Examination: Vital Signs: Reviewed. Head and Neck: Pupils are equal, react to light. Intact eye movements. No JVD. No cervical nodes. Neck: Supple. Thyroid is not enlarged. Lungs: Clear to auscultation bilaterally. No rhonchi, rales, or crackles. No accessory muscle use. Heart: Regular rate and rhythm. No extra sounds. Abdomen: Soft, nontender. Bowel sounds positive. No organomegaly. No masses or hernia. No rigidi ty or rebound. Extremities: No edema, clubbing, or cyanosis. Intact pulses. Skin: No rash noted. Neurologic: Alert, awake, oriented x3. No acute focal deficits appreciated. Investigations: Heart catheterization from April 03 done by myself showed a totally occluded proximal LAD with patent GONZALES and significant disease prior to the bypass, difficult to access and diffusely diseased and there is mild disease involving left circumflex and severe RCA disease with patent SVG t o RCA. Laboratory Data: His creatinine is 1.58. Troponin 0.12 and then 0.1. Assessment And Plan: Chest pain. No troponin leak. The patient has diffuse coronary artery disease as described above in the recent catheterization. Recommend to intensify the antianginal medication s. We can increase the Coreg and the Imdur and reassess. Ranexa also is an option. If the patient continues to be symptomatic, he might need to have repeat coronary angiogram; however, his coronary a rtery disease is diffuse and difficult to intervene. Medical management will be his best option. Co ntinue to trend troponin and please obtain an echocardiogram. SR/MODL Voice ID: [id number] Report ID: [id number]
[2020-09-05] MEDS: carvediloL 12.5 MG TAB PO SCH (17:21)
[2020-09-05] MEDS ORDERED: POTASSIUM 25 MEQ EFFERV TAB PO ONE (21:00)
[2020-09-05] MEDS ORDERED: LITHIUM CARBONATE 300 MG TAB ONE (21:57)
[2020-09-05] MEDS ORDERED: MORPHINE 4 MG/ML SYR IV ONE (22:08)
[2020-09-05] MEDS ORDERED: POTASSIUM CL SA 10 MEQ TAB PO ONE (22:12)
[2020-09-05] MEDS: ATORVASTATIN 20 MG TAB PO SCH (22:15)
[2020-09-05] MEDS: LITHIUM CARBONATE 300 MG TAB PO SCH (22:16)
[2020-09-06 01:41] LABS: Barbiturates NEGATIVE (NEGATIVE); Benzodiazepines NEGATIVE (NEGATIVE); Cocaine NEGATIVE (NEGATIVE); METHAMPHETAM NEGATIVE (NEGATIVE); Methadone NEGATIVE (NEGATIVE); Opiates POSITIVE (NEGATIVE); Phencyclidine NEGATIVE (NEGATIVE); THC Cannibis NEGATIVE (NEGATIVE)
[2020-09-06] MEDS ORDERED: METOPROLOL TARTRATE 5 MG/5 ML INJ IV ONE (02:38)
[2020-09-06] MEDS: carvediloL 12.5 MG TAB PO SCH ×2 (06:08→17:12)
[2020-09-06 06:20] LABS: Albumin 3.8 g/dL (3.4-5.0); Bilirubin Total 0.3 mg/dL (0.2-1.0); Protein, Total 8.4 g/dL (6.4-8.2)
[2020-09-06 06:21] LABS: Magnesium 2.8 mg/dL (1.8-2.4); Potassium 3.8 mmol/L (3.5-5.1)
[2020-09-06 06:22] LABS: Absolute Lymphocytes (CBC) 3.4 K/uL (0.7-4.9); Basophils % 1.1 % (0-1.3); Hematocrit 42.5 % (39.6-49.0); Lymphocytes % 32.2 % (15.3-44.8); MPV 10.6 fL (7.6-11.3); RBC Red Blood Cell Count 4.64 M/uL (4.33-5.43)
[2020-09-06] MEDS: ONDANSETRON 4 MG/2 ML VIAL IV PRN (07:16)
[2020-09-06] MEDS ORDERED: carvediloL 12.5 MG TAB PO ONE (07:52)
[2020-09-06] MEDS: CLOPIDOGREL 75 MG TABLET PO SCH (07:53)
[2020-09-06] MEDS: NICOTINE 21 MG/PAT TD SCH (07:53)
[2020-09-06] MEDS: AMIODARONE HCL 200 MG TAB PO SCH ×2 (07:54→20:22)
[2020-09-06] MEDS: CITALOPRAM 10 MG TABLET PO SCH (07:54)
[2020-09-06] MEDS: ISOSORBIDE MONO SR 60 MG TAB PO SCH (07:54)
[2020-09-06] MEDS: AMLODIPINE 10 MG TAB PO SCH (07:54)
[2020-09-06] MEDS: HEPARIN 5000 UNIT/ML 1 ML VIAL SQ SCH ×2 (07:55→20:24)
[2020-09-06] MEDS: HYDROCODONE/APAP 7.5/325 MG TAB PO PRN ×2 (07:55→17:13)
[2020-09-06] MEDS: HYDRALAZINE HCL 25 MG TABLET PO SCH ×3 (08:07→20:22)
[2020-09-06] MEDS ORDERED: POTASSIUM CL SA 10 MEQ TAB PO ONE (09:00)
[2020-09-06] MEDS: PROMETHAZINE INJ 25 MG/ML AMP IV PRN ×2 (09:27→21:21)
[2020-09-06] MEDS ORDERED: LORazepam 2 MG/ML VIAL IV ONE (09:44)
--- NOTE | 2020-09-06 13:53 | P.PN ---
Subjective Date of Service: 09/06/20 Primary Care Provider: Dr. Heard Chief Complaint: Hypertensive emergency Subjective: Other (some nausea noted. Reports pain all over.) Physical Examination - Vital Signs Temperature: 98.1 F Blood Pressure: 119/69 Pulse: 63 Respirations: 15 Pulse Ox (%): 97 - Physical Exam General: Alert, In no apparent distress, Oriented x3, Cooperative HEENT: Atraumatic Neck: Supple Respiratory: Clear to auscultation bilaterally, Normal air movement Cardiovascular: Normal pulses, Regular rate/rhythm Gastrointestinal: Normal bowel sounds, No masses, No rebound, No guarding Neurological: Normal speech, Normal strength at 5/5 x4 extr, Normal tone, Normal affect - Studies Microbiology Data (last 24 hrs): 09/04/20 19:55 Nasopharnyx Coronavirus COVID-19 PCR - Final 09/04/20 19:55 Nasopharnyx Influenza Type A Antigen Screen - Final 09/04/20 19:55 Nasopharnyx Influenza Type B Antigen Screen - Final Medications List Reviewed: Yes Assessment & Plan Discharge Plan: Home Plan to discharge in: 24 Hours Physician Review Additional Text: Impression: Hypertensive emergency with underlying primary hypertension suspect noncompliance with medication CAD status post CABG Atrial fibrillation on chronic anticoagulation therapy KAT on CKD 3 Hyperlipidemia Bipolar disorder Chronic pain GERD Plan Hypertensive emergency with underlying primary hypertension suspect non compliance with medication: Continue to adjust meds for BP control. Pressure still elevated this morning. Will increase medication. Some nausea noted. Will monitor 1 more night to make sure blood pressure is better controlled. CAD status post CABG: Continue monitor closely. Cardiology had recent heart catheterization recommending medical management. Restart home meds.. Atrial fibrillation not on chronic anticoagulation therapy: Continue amiodarone. Patient does not appear to be on any chronic anti coagulation therapy. Patient likely high risk for fall and compliance. Will discuss further with cardiology. KAT on CKD 3: Will continue to monitor closely. Change to Lasix at this time. Hyperlipidemia: Continue home medication Bipolar disorder: Continue home medication including lithium. Chronic pain: Continue to provide medication. Patient desiring IV. Will discontinue IV medication. Patient will need a follow up with pain management as an outpatient. GERD: Will start Protonix. Time Spent Managing Pts Care (In Minutes): 55
[2020-09-06] MEDS: ATORVASTATIN 20 MG TAB PO SCH (20:23)
[2020-09-06] MEDS: LITHIUM CARBONATE 300 MG TAB PO SCH (20:23)
[2020-09-07] MEDS: PROMETHAZINE INJ 25 MG/ML AMP IV PRN (03:39)
[2020-09-07] MEDS: HYDROCODONE/APAP 7.5/325 MG TAB PO PRN (03:45)
[2020-09-07] MEDS: carvediloL 12.5 MG TAB PO SCH ×2 (04:32→17:42)
[2020-09-07] MEDS ORDERED: HYDROCODONE/APAP 10/325 TAB PO PRN (06:24)
[2020-09-07] MEDS ORDERED: MORPHINE 2 MG/ML SYR IV PRN (06:26)
[2020-09-07 07:07] LABS: Potassium 3.6 mmol/L (3.5-5.1)
[2020-09-07] MEDS: MORPHINE *EXTENDED RELEASE* 15 MG TAB PO SCH ×3 (07:25→19:46)
[2020-09-07] MEDS: ISOSORBIDE MONO SR 60 MG TAB PO SCH (08:28)
[2020-09-07] MEDS: HYDRALAZINE HCL 25 MG TABLET PO SCH ×3 (08:28→19:48)
[2020-09-07] MEDS: CLOPIDOGREL 75 MG TABLET PO SCH (08:29)
[2020-09-07] MEDS: PANTOPRAZOLE 40MG TABLET PO SCH (08:29)
[2020-09-07] MEDS: AMLODIPINE 10 MG TAB PO SCH (08:29)
[2020-09-07] MEDS: NICOTINE 21 MG/PAT TD SCH (08:29)
[2020-09-07] MEDS: AMIODARONE HCL 200 MG TAB PO SCH ×2 (08:30→19:46)
[2020-09-07] MEDS: CITALOPRAM 10 MG TABLET PO SCH (08:30)
[2020-09-07] MEDS: HEPARIN 5000 UNIT/ML 1 ML VIAL SQ SCH ×2 (08:31→19:56)
[2020-09-07] MEDS ORDERED: HYDRALAZINE HCL 25 MG TABLET PO SCH (09:00)
[2020-09-07] MEDS ORDERED: POTASSIUM CL SA 10 MEQ TAB PO ONE (09:00)
[2020-09-07] MEDS ORDERED: MORPHINE *EXTENDED RELEASE* 15 MG TAB PO SCH (09:00)
--- NOTE | 2020-09-07 11:00 | P.PN ---
Subjective Date of Service: 09/07/20 Primary Care Provider: Dr. Heard Chief Complaint: Hypertensive emergency Subjective: Other (Patient reporting some nausea today. Blood pressure is still fluctuating.) Physical Examination - Vital Signs Temperature: 98.9 F Blood Pressure: 193/90 Pulse: 63 Respirations: 18 Pulse Ox (%): 95 - Physical Exam General: Alert, In no apparent distress, Oriented x3, Cooperative HEENT: Atraumatic Neck: Supple Respiratory: Clear to auscultation bilaterally, Normal air movement Cardiovascular: Normal pulses, Regular rate/rhythm Gastrointestinal: Normal bowel sounds, Other (Mild epigastric pain) Musculoskeletal: Tenderness (Reports pain to his back) Integumentary: No erythema, No warmth, No cyanosis Neurological: Normal speech, Normal strength at 5/5 x4 extr, Normal tone, Normal affect - Studies Medications List Reviewed: Yes Assessment & Plan Discharge Plan: Home Plan to discharge in: 24 Hours Physician Review Additional Text: Impression: Hypertensive emergency with underlying primary hypertension suspect noncompliance with medication CAD status post CABG Atrial fibrillation on chronic anticoagulation therapy KAT on CKD 3 Hyperlipidemia Bipolar disorder Chronic pain GERD Plan Hypertensive emergency with underlying primary hypertension suspect non compliance with medication: Blood pressure is still elevated. Will continue to adjust blood pressure medication for better control. It has improved. Will consider discharge later today if better. I had a long discussion with the patient about his chronic pain. Patient is seen by pain management. He also takes morphine extended release as well as ketamine intranasal spray. Will restart morphine extended-release. Hopefully his pain will be better controlled. Will continue to reassess. Will reassess later for possible discharge later today if not tomorrow. CAD status post CABG: Continue monitor closely. Cardiology had recent heart catheterization recommending medical management. Continue medication. Patient would benefit with cardiac rehab. Will make referral. Atrial fibrillation not on chronic anticoagulation therapy: Continue amiodarone. Patient does not appear to be on any chronic anti coagulation therapy. Patient likely high risk for fall and compliance. Will discuss further with cardiology. KAT on CKD 3: Will continue to monitor closely. Change to Lasix at this time. Hyperlipidemia: Continue home medication Bipolar disorder: Continue home medication including lithium. Chronic pain: After a long discussion with the patient, patient has extended history of chronic back pain with multiple surgeries. Patient seen by pain management. He also reports taking morphine and ketamine which was not on his current medication list. Will restart morphine ER. Hopefully pain will be better controlled. Reassess later today for possible discharge if not hopefully by tomorrow. GERD: Continue Protonix. Time Spent Managing Pts Care (In Minutes): 55
[2020-09-07] MEDS: ONDANSETRON 4 MG/2 ML VIAL IV PRN ×2 (11:53→19:52)
[2020-09-07] MEDS: LOSARTAN POTASSIUM 50 MG TABLET PO SCH (11:53)
[2020-09-07] MEDS ORDERED: MORPHINE 2 MG/ML SYR IV ONE (13:42)
[2020-09-07] MEDS: ATORVASTATIN 20 MG TAB PO SCH (19:46)
[2020-09-07] MEDS: LITHIUM CARBONATE 300 MG TAB PO SCH (19:47)
[2020-09-08] MEDS: PANTOPRAZOLE 40MG TABLET PO SCH (05:32)
[2020-09-08] MEDS: carvediloL 12.5 MG TAB PO SCH (05:32)
[2020-09-08 06:20] LABS: Potassium 3.7 mmol/L (3.5-5.1)
[2020-09-08] MEDS: MORPHINE *EXTENDED RELEASE* 15 MG TAB PO SCH (07:26)
--- NOTE | 2020-09-08 07:53 | EKG ---
Test Date: 2020-09-04 Test Time: 19:30:28 Coagulating Drying Supervisor: RV MEASUREMENT RESULTS: Intervals: Rate: 105 NH: 204 QRSD: 96 QT: 368 QTc: 486 [place]: P: 95 NH: 204 QRS: 39 T: 94 INTERPRETIVE STATEMENTS: Sinus tachycardia with premature atrial complexes Possible Left atrial enlargement Left ventricular hypertrophy with repolarization abnormality Cannot rule out Septal infarct, age undetermined Abnormal ECG Compared to ECG 06/14/2020 01:16:16 Atrial premature complex(es) now present Left ventricular hypertrophy now present Early repolarization now present Sinus rhythm no longer present T-wave abnormality no longer present Possible ischemia no longer present Myocardial infarct finding still present Electronically Signed On 09-08-20 07:42:34 EDUCATIONAL SPEECH LANGUAGE CLINICIAN by Ghulam Berrios
--- NOTE | 2020-09-08 08:13 | P.DS ---
Admission Date: 09/04/20 Discharge Date: 09/08/20 Primary Care Provider: Dr. Heard Disposition: ROUTINE DISCHARGE Discharge Condition: GOOD Reason for Admission: Hypertensive emergency Consultations: Cardiology-Dr. Berrios Procedures: CT Scan: FINDINGS: Lungs are clear of mass and infiltrate. Calcified pleural plaquing changes are present without associated pleural based mass. No pleural effusion, pleural thickening or pneumothorax. No significant aortic or pulmonary arterial tree finding. Mediastinal and hilar regions show no mass or abnormal lymphadenopathy. No chest wall mass or axillary lymphadenopathy. No cardiomegaly or pericardial effusion. There is questionable left ventricular myocardial hypertrophy. CT sensitivity is limited. The liver, spleen and pancreas show no suspicious findings. Cholecystectomy clips are present. Biliary tree is dilated but not outside of normal range for a post cholecystectomy patient. Biliary tree is similar to prior imaging. Symmetric renal function is seen with no mass or hydronephrosis. No adrenal abnormalities. Urinary bladder is mostly contracted. No prostate gland significant finding. No dilated bowel loops or focal bowel wall thickening. Minimal diverticulosis of the sigmoid colon. No diverticulitis. No active colon process seen. Fluid fills but does not dilate the stomach. No gastric wall thickening or mass. Small hiatal hernia is seen. Disc and bony degenerative changes are present. Lumbar fusion changes are present. Neurostimulator device in place. No significant vascular findings. IMPRESSION: CT chest, abdomen and pelvis imaging shows no acute or emergent finding. Nonacute findings detailed in the body of the report. Medical Problem List: Hypertensive emergency with underlying primary hypertension, uncontrolled Nausea and vomiting suspect GERD CAD with prior CABG Atrial fibrillation not on chronic anticoagulation therapy KAT on CKD 3 Hyperlipidemia Bipolar disorder History of degenerative disc and joint disease and prior surgeries with Chronic pain Brief History of Present Illness: 59-year-old male with history of CAD, atrial fibrillation, hypertension, COPD, tobacco abuse, hyperlipidemia, CHF. Patient presented with left-sided chest pain. Patient had negative stress test 2 months ago. He also had a heart catheterization on April 03 showing totally occluded proximal LAD with patent GONZALES and significant disease prior to bypass. Diffucult access was noted. Patient has diffuse disease and mild disease involving the left circumflex and severe RCA disease with patent SVG to RCA. Troponin slightly elevated. Blood pressures were on controlled. Patient required IV medication. Patient admitted for further evaluation and treatment. Hospital Course: Patient presented with chest pain. Patient with multiple medical problems including CAD with prior CABG, atrial fibrillation not on chronic anti coagulation therapy, hypertension, tobacco abuse, hyperlipidemia, CHF. Patient had mild elevation in troponin. Patient with hypertensive emergency. Patient admitted for further evaluation and treatment. Patient was seen and evaluated by Cardiology. Patient required IV medication for control of his blood pressures. Patient was transition to oral medication. Multiple adjustments made for better control of his blood pressure. Cardiology noted that patient had negative stress test 2 months ago. Cardiology also performed heart catheterization April 03 showing totally occluded proximal LAD with patent GONZALES and significant disease prior to bypass. Diffucult access was noted. Patient has diffuse disease and mild disease involving the left circumflex and severe RCA disease with patent SVG to RCA. Cardiology recommended continued adjustment in blood pressure control and continue with Imdur. If chest pain persisted in the future then the patient can be switched over from Imdur to Ranexa. At discharge blood pressure control. Patient without significant chest pain. Cardiology recommends no further intervention at this time. Medications were adjusted during the course of his stay. Losartan was increased. Hydralazine was added. At discharge patient will continue with amiodarone 100 mg 1 pill twice daily, Norvasc 10 mg daily, carvedilol 25 mg 1 pill twice daily, hydralazine 50 mg 3 times a day, losartan 50 mg daily, aspirin 81 mg daily, Plavix 75 mg daily, Lipitor 20 mg daily, and Imdur ER 60 mg daily. At discharge recommend to monitor blood pressure daily. Recommend to maintain blood pressure less than 130/80. Further adjustment can be done by his PCP or cardiology. Recommend follow up with cardiology in 1-2 weeks to monitor his progress. As mentioned above if patient still continues with chest pain patient can be switched over from Imdur to Ranexa. Compliance with medication addressed in detail. Education on CAD, hypertension, hyperlipidemia and atrial fibrillation address in detail. As mentioned above patient with hypertension. Medications have been adjusted. New medication includes hydralazine. Losartan increased. At discharge he will continue with Norvasc 10 mg daily, carvedilol 25 mg 1 pill twice daily, hydralazine 50 mg 3 times a day, and losartan 50 mg daily. Recommend to maintain blood pressure less than 130/80. Further adjustment can be done by his PCP or cardiology. As mentioned above patient with atrial fibrillation not on chronic anti Coagulation therapy. At discharge patient will continue with amiodarone 100 mg 1 pill twice daily. Patient takes aspirin and Plavix. Patient with underlying CHF. Patient previously on Lasix 40 mg 1 pill twice daily. Medications have been adjusted. At discharge he will continue with Lasix 20 mg daily if with increased edema and shortness of breath. Recommend to monitor his weight daily. If his weight increases by more than 5 lb he is to contact his PCP or cardiology for further recommendation. At discharge he will continue with a 1500 cc per day fluid restriction and low-salt diet. Patient with acute on chronic renal disease stage III. This appears stable. Please note Lasix has been decreased as above. Medications also have been adjusted. At discharge recommend no further use of nonsteroidal anti- inflammatories would to be renally dose. Recommend to establish care with nephrology as an outpatient to further monitor and address. Recommend to recheck BMP in 1-2 weeks to monitors progress. Patient with hyperlipidemia. At discharge he will continue with Lipitor 20 mg daily. Recommend to recheck fasting lipid panel in 4-6 weeks to monitors progress. Further adjustment can be done by his PCP or cardiology. Patient with bipolar disorder. This appears stable. At discharge he will continue with Celexa 20 mg daily and lithium 600 mg at bedtime. Recommend follow up with psychiatry to further monitor and address. Patient with nausea and vomiting. Suspect GERD. At discharge patient will continue with Protonix 40 mg daily. If this persists patient may require EGD in the near future. Will provide medication for nausea-Zofran. Patient with chronic pain. Patient sees chronic pain management. Patient with history of degenerative disc and joint disease with prior back surgeries. Please note patient takes MS Contin 15 mg twice a daily, Xtampa XR 9 mg 1 pill twice daily along with ketamine intranasal spray as directed. This was confirmed with pharmacy. At discharge patient will continue with his chronic pain medication. Recommend follow up with pain management to further monitor and address. Patient wit tobacco abuse. Tobacco cessation education provided. Will provide nicotine patch to help with cessation. Vital Signs/Physical Exam: Temp Pulse Resp BP Pulse Ox 98.3 F 70 16 145/87 H 97 09/08/20 04:00 09/08/20 05:32 09/08/20 07:26 09/08/20 05:32 09/08/20 07:26 General: Alert, In no apparent distress, Oriented x3, Cooperative HEENT: Atraumatic Neck: Supple Respiratory: Clear to auscultation bilaterally, Normal air movement Cardiovascular: Normal pulses, Regular rate/rhythm Gastrointestinal: Normal bowel sounds, Soft and benign, Non-distended, No tenderness, No masses, No rebound, No guarding Musculoskeletal: No erythema, No tenderness, No warmth Integumentary: No tenderness/swelling, No erythema, No warmth, No cyanosis Neurological: Normal speech, Normal strength at 5/5 x4 extr, Normal tone, Normal affect Laboratory Data at Discharge: WBC 10.6 K/uL (4.3-10.9) D 09/06/20 05:41 Hgb 14.3 g/dL (13.6-17.9) 09/06/20 05:41 Hct 42.5 % (39.6-49.0) 09/06/20 05:41 Plt Count 225 K/uL (152-406) 09/06/20 05:41 PT 14.5 SECONDS (9.5-12.5) H 09/04/20 19:40 INR 1.23 09/04/20 19:40 Sodium 141 mmol/L (136-145) 09/08/20 05:24 Potassium 3.7 mmol/L (3.5-5.1) 09/08/20 05:24 BUN 25 mg/dL (7-18) H 09/08/20 05:24 Creatinine 1.26 mg/dL (0.55-1.3) 09/08/20 05:24 Glucose 79 mg/dL (74-106) 09/08/20 05:24 Magnesium 2.8 mg/dL (1.8-2.4) H 09/06/20 05:41 Total Bilirubin 0.3 mg/dL (0.2-1.0) 09/06/20 05:41 AST 35 U/L (15-37) 09/06/20 05:41 ALT 29 U/L (12-78) 09/06/20 05:41 Alkaline Phosphatase 89 U/L (45-117) 09/06/20 05:41 Troponin I 0.10 ng/mL (0.0-0.045) H 09/05/20 09:15 Home Medications: Amiodarone HCl 100 mg PO BID 03/29/20 Amlodipine [Norvasc*] 10 mg PO DAILY 03/29/20 Atorvastatin Calcium [Lipitor*] 20 mg PO BEDTIME 03/29/20 Citalopram [Celexa*] 20 mg PO DAILY 03/29/20 Clopidogrel Bisulfate [Plavix*] 75 mg PO DAILY tablet 04/03/20 Peosta Carbonate [Lithotabs *] 600 mg PO BEDTIME tab 04/03/20 Isosorbide Mononitrate [Isosorbide Mononitrate ER] 60 mg PO DAILY 06/14/20 Aspirin [Aspirin EC 81 MG] 81 mg PO DAILY 09/05/20 Morphine *Extended Release* [MS Contin*] 1 tab PO Q12H 09/07/20 Oxycodone Myristate [Xtampza ER] 1 cap PO Q12H 09/07/20 Carvedilol [Coreg] 25 mg PO BID #60 09/08/20 Furosemide [Lasix] 20 mg PO DAILY PRN #30 tab 09/08/20 Hydralazine HCl [Apresoline] 50 mg PO TID #90 tablet 09/08/20 Losartan Potassium [Cozaar*] 50 mg PO DAILY #30 tablet 09/08/20 Nicotine [Nicoderm*] 21 mg TD DAILY #30 patch.td24 09/08/20 Ondansetron HCl [Zofran] 4 mg PO TID PRN #10 tablet 09/08/20 Pantoprazole [Protonix Tab*] 40 mg PO DAILY #30 tab 09/08/20 New Medications: Hydralazine HCl [Apresoline] 50 mg PO TID #90 tablet Carvedilol [Coreg] 25 mg PO BID #60 Losartan Potassium [Cozaar*] 50 mg PO DAILY #30 tablet Furosemide [Lasix] 20 mg PO DAILY PRN #30 tab PRN Reason: Shortness Of Breath Nicotine [Nicoderm*] 21 mg TD DAILY #30 patch.td24 Pantoprazole [Protonix Tab*] 40 mg PO DAILY #30 tab Ondansetron HCl [Zofran] 4 mg PO TID PRN #10 tablet PRN Reason: Nausea / Vomiting Patient Discharge Instructions: 1. Follow up with PCP in 1 week to follow up this hospitalization. 2. Patient presented with chest pain. Patient with multiple medical problems including CAD with prior CABG, atrial fibrillation not on chronic anti coagulation therapy, hypertension, tobacco abuse, hyperlipidemia, CHF. Patient had mild elevation in troponin. Patient with hypertensive emergency. Patient admitted for further evaluation and treatment. Patient was seen and evaluated by Cardiology. Patient required IV medication for control of his blood pressures. Patient was transition to oral medication. Multiple adjustments made for better control of his blood pressure. Cardiology noted that patient had negative stress test 2 months ago. Cardiology also performed heart catheterization April 03 showing totally occluded proximal LAD with patent GONZALES and significant disease prior to bypass. Diffucult access was noted. Patient has diffuse disease and mild disease involving the left circumflex and severe RCA disease with patent SVG to RCA. Cardiology recommended continued adjustment in blood pressure control and continue with Imdur. If chest pain persisted in the future then the patient can be switched over from Imdur to Ranexa. At discharge blood pressure control. Patient without significant chest pain. Cardiology recommends no further intervention at this time. Medications were adjusted during the course of his stay. Losartan was increased. Hydralazine was added. At discharge patient will continue with amiodarone 100 mg 1 pill twice daily, Norvasc 10 mg daily, carvedilol 25 mg 1 pill twice daily, hydralazine 50 mg 3 times a day, losartan 50 mg daily, aspirin 81 mg daily, Plavix 75 mg daily, Lipitor 20 mg daily, and Imdur ER 60 mg daily. At discharge recommend to monitor blood pressure daily. Recommend to maintain blood pressure less than 130/80. Further adjustment can be done by his PCP or cardiology. Recommend follow up with cardiology in 1-2 weeks to monitor his progress. As mentioned above if patient still continues with chest pain patient can be switched over from Imdur to Ranexa. Compliance with medication addressed in detail. Education on CAD, hypertension, hyperlipidemia and atrial fibrillation address in detail. 3. As mentioned above patient with hypertension. Medications have been adjusted. New medication includes hydralazine. Losartan increased. At discharge he will continue with Norvasc 10 mg daily, carvedilol 25 mg 1 pill twice daily, hydralazine 50 mg 3 times a day, and losartan 50 mg daily. Recommend to maintain blood pressure less than 130/80. Further adjustment can be done by his PCP or cardiology. 4. As mentioned above patient with atrial fibrillation not on chronic anti Coagulation therapy. At discharge patient will continue with amiodarone 100 mg 1 pill twice daily. Patient takes aspirin and Plavix. 5. Patient with underlying CHF. Patient previously on Lasix 40 mg 1 pill twice daily. Medications have been adjusted. At discharge he will continue with Lasix 20 mg daily if with increased edema and shortness of breath. Recommend to monitor his weight daily. If his weight increases by more than 5 lb he is to contact his PCP or cardiology for further recommendation. At discharge he will continue with a 1500 cc per day fluid restriction and low-salt diet. 6. Patient with acute on chronic renal disease stage III. This appears stable. Please note Lasix has been decreased as above. Medications also have been adjusted. At discharge recommend no further use of nonsteroidal anti-inflammatories would to be renally dose. Recommend to establish care with nephrology as an outpatient to further monitor and address. Recommend to recheck BMP in 1-2 weeks to monitors progress. 7. Patient with hyperlipidemia. At discharge he will continue with Lipitor 20 mg daily. Recommend to recheck fasting lipid panel in 4-6 weeks to monitors progress. Further adjustment can be done by his PCP or cardiology. 8. Patient with bipolar disorder. This appears stable. At discharge he will continue with Celexa 20 mg daily and lithium 600 mg at bedtime. Recommend follow up with psychiatry to further monitor and address. 9. Patient with nausea and vomiting. Suspect GERD. At discharge patient will continue with Protonix 40 mg daily. If this persists patient may require EGD in the near future. Will provide medication for nausea-Zofran. 10. Patient with chronic pain. Patient sees chronic pain management. Patient with history of degenerative disc and joint disease with prior back surgeries. Please note patient takes MS Contin 15 mg twice a daily, Xtampa XR 9 mg 1 pill twice daily along with ketamine intranasal spray as directed. This was confirmed with pharmacy. At discharge patient will continue with his chronic pain medication. Recommend follow up with pain management to further monitor and address. 11. Patient will be provided tobacco cessation education. Will provide nicotine patch. Diet: AHA (1500 cc per day fluid restriction) Activity: Ad nas Followup: NONE,NONE [Primary Care Provider] - Time spent managing pt's care (in minutes): 55
[2020-09-08] MEDS ORDERED: POTASSIUM CL SA 10 MEQ TAB PO ONE (09:00)
[2020-09-08 09:37] VITALS: BP 162/87; TEMP 98.7
[2020-09-08] MEDS: HYDRALAZINE HCL 25 MG TABLET PO SCH (10:01)
[2020-09-08] MEDS: AMIODARONE HCL 200 MG TAB PO SCH (10:01)
[2020-09-08] MEDS: LOSARTAN POTASSIUM 50 MG TABLET PO SCH (10:01)
[2020-09-08] MEDS: CITALOPRAM 10 MG TABLET PO SCH (10:02)
[2020-09-08] MEDS: NICOTINE 21 MG/PAT TD SCH (10:02)
[2020-09-08] MEDS: AMLODIPINE 10 MG TAB PO SCH (10:02)
[2020-09-08] MEDS: CLOPIDOGREL 75 MG TABLET PO SCH (10:02)
[2020-09-08] MEDS: ISOSORBIDE MONO SR 60 MG TAB PO SCH (10:02)
[2020-09-08 11:39] VITALS: O2SAT 97
== END 2020-09-08 10:25 | disposition home or self-care (01) | DRG 291 ==
LOC: ER 19:27 → ERHOLD 23:23 → 2ND 09-05 12:55
PROVIDERS: ADMIT Family Medicine; ATTEND Family Medicine
DX: I13.0 Hypertensive heart and chronic kidney disease with heart failure and stage 1 through stage 4 chronic kidney disease, or unspecified chronic kidney disease (principal); I50.33 Acute on chronic diastolic (congestive) heart failure; I16.1 Hypertensive emergency; N17.9 Acute kidney failure, unspecified; N18.30 Chronic kidney disease, stage 3 unspecified; Z72.0 Tobacco use; I48.91 Unspecified atrial fibrillation; Z79.01 Long term (current) use of anticoagulants; K21.9 Gastro-esophageal reflux disease without esophagitis; G47.30 Sleep apnea, unspecified; I25.10 Atherosclerotic heart disease of native coronary artery without angina pectoris; Z95.1 Presence of aortocoronary bypass graft; J44.9 Chronic obstructive pulmonary disease, unspecified; M54.9 Dorsalgia, unspecified; F31.9 Bipolar disorder, unspecified; K74.60 Unspecified cirrhosis of liver; K75.9 Inflammatory liver disease, unspecified; E78.5 Hyperlipidemia, unspecified; Z91.14 Patient's other noncompliance with medication regimen; E87.6 Hypokalemia; E78.00 Pure hypercholesterolemia, unspecified; Z28.9 Immunization not carried out for unspecified reason; G89.4 Chronic pain syndrome; Z20.828 Contact with and (suspected) exposure to other viral communicable diseases
CPT/HCPCS: 36415; 71045; 71260; 74177; 80048; 80053; 80076; 80307; 82140; 83605; 83735; 83880; 84132; 84145; 84439; 84443; 84484; 85025; 85610; 87804; 93005; 96361; 96365; 96375; 99285; J1644; J1940; J2270; J2405; J2550; J3480; J7040; J7050; Q9967; U0002

== ENCOUNTER 2020-09-09 19:52 | Observation (INO) | payer OTHER ==
--- OUTSIDE RECORDS SUMMARY | 2020-09-09 19:54 | XMS REPORT | Clinical Summary ---
:1960 Author Organization [facility] Address [address] [place] [address] Care Team Providers Name Role Phone Sharpsophie [...] Team Description 05/20/2020 Lab Requisition Lab after 09/09/2019 Social History Tobacco Use Types Packs/Day Years [...] procedure are in the results section. after 09/09/2019 Results SARS-CoV2/RT-PCR ([facility]) (05/19/2020 8:30 PM CDT) SARS-COV2/RT-PCR Negative Not Detected, [facility] Negative, See [facility] external report CENTER for linked test SARS-COV-2 [facility] PERFORMING LAB [facility] Specimen Other - Nasopharyngeal wall structure (b sue structure) Narrative Performed At Negative result for this test determines that [facility] SARS-CoV-2 RNA was not present in the [...] the Act. Fact Sheet for Healthcare Providers: https://www.[employer]/sites/default/files/pro duct/documents/Fact_Sheet_HC_Providers_Lyra_SA RS-CoV-2.pdf Fact Sheet for Healthcare Patients: https://www.[employer]/sites/default/files/pro duct/documents/Fact_Sheet_Patients_Lyra_SARS-C oV-2.pdf Performing Laboratory: [address] [place] [address] Performing Organization Address City/State/Zipcode Phone Number [address] [phone] CENTER after 09/09/2019 Insurance Payer Benefit Plan / Subscriber ID Effective Dates Phone Addre ss Type Group [facility] [employer] [id number] 2015-Present MEDICARE [employer] CARE HMO (Home) [place] [address] Advance Directives For more information, please contact: [phone] Code Status Date Activated Date Inactivated Comments [...]
--- OUTSIDE RECORDS SUMMARY | 2020-09-09 19:55 | XMS REPORT | Continuity of Care Document ---
:1960 Author Organization [facility] Medical Envelope Care Team Providers Name Role Phone Plyce Information Strikingly Unavailable Un available Problems Problem Status Onset Classification Date Comments Sourc e Date Reported M54.16 - Active OPID "RADICULOPA 0 [facility] THY, LUMBAR REGION" UNK Active [facility] 0 [place] RADICULOPAT Active [facility] HY, LUMBAR 0 [place] REGION M54.[address] RADICULOPAT 9 HY, LUMBAR REGION Medications Medication Details Route Status Patient Ordering Order Source Instructions Provider Date Oxycodone 2 tab, Route: Inactive Hydrochloride 5 PO, ONCE, [address] [place] Oral Tablet Dosing Weight 63.636, kg, Start date: 01/02/20 15:04:00 CDT, Stop date: 01/02/20 15:04:00 CDT Labetalol Notes: (Same Inactive as: Normodyne, 2019 [place] Trandate) Push over 2 minutes Give bolus over 2-3 minutes. Ketorolac 4 days Inactive MEDICATION 2019 [place] WASTE Product Size: 30 mg Product Wasted: ___ mg Acetaminophen Notes: Max Inactive acetaminophen 2019 [place] 4000 mg/day (4 gm/day). (Same as: Tylenol Extra Strength) Fentanyl Notes: (Same Inactive as: Sublimaze) 2019 [place] Preservative free. Hydromorphone Notes: Same as: Inactive H Dilaudid 2019 [place] Naloxone Notes: Same as Inactive Narcan 2019 [place] Meperidine Notes: (Same Inactive as: Demerol) 2019 [place] "Use Precaution in Elderly, Seizure disorders, and Renal impairment&quot ; Ondansetron Notes: (Same Inactive as: Zofran) 2019 [place] MEDICATION WASTE Product Size: 4 mg Product Wasted: ___ mg sugammadex (ANES) Route: IV, Drug Inactive 01/01 / form: SOLN, 2019 [place] ONCE, Stop date: 01/02/20 14:14:00 CDT glycopyrrolate Route: IV, Drug Inactive 01/01/ MH (ANES) form: INJ, 2019 [place] , Stop date: 01/02/20 14:11:00 CDT norepinephrine Route: IV, Drug Inactive 01/01/ MH (ANES) form: INJ, 2019 [place] , Stop date: 01/02/20 14:11:00 CDT vasopressin Route: IV, Drug Inactive 01/01/ MH (ANES) form: INJ, 2019 [place] , Stop date: 01/02/20 14:11:00 CDT lidocaine (ANES) Route: IV, Drug Inactive 01/01/ form: INJ, 2019 [place] , Stop date: 01/02/20 14:11:00 CDT fentaNYL (ANES) Route: IV, Drug Inactive 01/01/ MH form: INJ, 2019 [place] , Stop date: 01/02/20 14:11:00 CDT propofol (ANES) Route: IV, Drug Inactive 01/01/ MH form: INJ, 2019 [place] , Stop date: 01/02/20 14:11:00 CDT rocuronium (ANES) Route: IV, Drug Inactive 01/01 / MH form: INJ, 2019 [place] , Stop date: 01/02/20 14:11:00 CDT diphenhydrAMINE Route: IV, Drug Inactive 01/01/ MH (ANES) form: INJ, 2019 [place] , Stop date: 01/02/20 14:05:00 CDT acetaminophen Route: IV, Drug Inactive 01/01/ M H (ANES) form: INJ, 2019 [place] , Stop date: 01/02/20 14:05:00 CDT ePHEDrine (ANES) Route: IV, Drug Inactive 01/01/ MH form: INJ, 2019 [place] , Stop date: 01/02/20 14:05:00 CDT phenylephrine Route: IV, Drug Inactive 01/01/ M H (ANES) form: INJ, 2019 [place] ONCE, Stop date: 01/02/20 14:05:00 CDT ceFAZolin (ANES) Route: IV, Drug Inactive form: INJ, 2019 [place] ONCE, Stop date: 01/02/20 14:00:00 CDT ondansetron Route: IV, Drug Inactive (ANES) form: INJ, 2019 [place] ONCE, Stop date: 01/02/20 14:00:00 CDT dexamethasone Route: IV, Drug Inactive 01/01/ M H (ANES) form: INJ, 2019 [place] ONCE, Stop date: 01/02/20 14:00:00 CDT metoclopramide Route: IV, Drug Inactive (ANES) form: INJ, 2019 [place] ONCE, Stop date: 01/02/20 14:00:00 CDT midazolam (ANES) Route: IV, Drug Inactive form: SOLN, 2019 [place] ONCE, Stop date: 01/02/20 13:55:00 CDT Lactated Ringers Route: IV, Inactive Injection IV Total Volume: 2019 [place] and (ANES) 1000 mL 1,000, Start date: 01/02/20 12:38:00 CDT, Stop date: 01/02/20 13:38:00 CDT Dilaudid Notes: Same as: Inactive Dilaudid 2019 [place] Calcium Chloride 1,000 mL, 1000 Inactive 0.0014 MEQ/ML / ml/hr, Infuse 2019 [facility] Potassium Over: 1 hr, Chloride [...] 0.5 mg, Route: Inactive IV, ONCE, 2019 [place] Dosing Weight 63.636, kg, Start date: 01/02/20 10:36:00 CDT, Stop date: 01/02/20 10:36:00 CDT oxyCODONE 10 mg 10 mg, Route: Inactive 12/12/ M H extended release PO, Drug form: 2019 [place] ERTAB, ONCE, Start date: 12/12/19 14:16:00 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, Stop date: 12/12/19 14:16:00 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 oxyCODONE 10 mg 10 mg, Route: Inactive 12/12/ M H extended release PO, Drug form: 2019 [place] ERTAB, ONCE, Start date: 12/12/19 14:09:00 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, Stop date: 12/12/19 14:09:00 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 Dilaudid Notes: Same as: Inactive Dilaudid 2019 [place] Oxycodone Notes: (Same Inactive Hydrochloride 5 as: Roxicodone) 2019 [place] MG Oral Tablet Calcium Chloride 1,000 mL, Rate: Inactive 0.0014 MEQ/ML / 75 ml/hr, [address] [place] Potassium Infuse over: Chloride 0.004 13.3 hr, Route: MEQ/ML / Sodium IV, Dosing Chloride 0.103 Weight 63.636 MEQ/ML / Sodium kg, Total Lactate 0.028 Volume: 1,000, MEQ/ML Injectable Start date: Solution 12/12/19 12:05:00 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, Duration: 30 day, Stop date: 01/11/20 12:04:00 CDT, 1.66, m2, 0 Nitroglycerin 0.4 0.4 mg = 1 tab, Active MG Sublingual SL, Q5Min, PRN 2019 [place] Tablet as needed for chest pain, 0 Refill(s) Lisinopril PO, Daily, 0 No Longer Refill(s) Active 2019 [place] Amitriptyline PO, Bedtime, 0 Active Refill(s) 2019 [place] 24 HR carvedilol 20 mg = 1 cap, Active phosphate 20 MG PO, BID, 0 2019 [place] and Extended Release Refill(s) Capsule [Coreg] 12 HR ranolazine 1,000 mg = 1 Inactive 12/11/ H 1000 MG Extended tab, PO, BID, 0 2019 [place] Release Tablet Refill(s) [Ranexa] Clonidine 0.2 mg = 1 tab, Active Hydrochloride 0.2 PO, BID, PRN 2020 [place] MG Oral Tablet Hypertension, 0 Refill(s) lisinopril 20 mg 20 mg = 1 tab, No Longer oral tablet PO, Daily, 0 Active [address] [place] Refill(s) AMIODarone 200 mg 200 mg = 1 tab, Active oral tablet PO, BID, 0 2019 [place] Refill(s) Potassium 20 mEq, PO, Active Chloride Daily, 0 2019 [place] Refill(s) Omnipaque 180 Notes: (Same Inactive as:Omnipaque 2020 [place] [address]). WASTE: F/P - Black; E - Municipal Trash [employer] Allergies, Adverse Reactions, Alerts Substance Category Reaction Severity Reaction Status Date Comments S ource type Reported penicillins Assertion Drug Active MH allergy [place] codeine Assertion Drug Active MH OPI D allergy [place] penicillin Assertion Drug Active MH OPID allergy [place] morphine Assertion Drug Active OP ID allergy [place] Immunizations Immunization Date Site Status Last Comments Source Given Updated pneumococcal Left completed Vanessa al 23-valent vaccine 8 deltoid [place], OPID [facility], MH OPID [place] Results Order Name Results Value Reference Date Interpretation Comments Anne Marie rce Range CHEM PANEL Total Protein 7.9 6.4 - 8.4 12/12 [place] CHEM PANEL Albumin Lvl 3.4 3.5 - 5.0 12/12 [place] CHEM PANEL ALT 39 0 - 65 12/12 [place] CHEM PANEL AST 32 0 - 37 12/12 [place] CHEM PANEL Alk Phos 49 39 - 136 12/122020 [place] CHEM PANEL Bili Total 0.5 0.2 - 1.3 12/12 [place] CHEM PANEL Bili Direct 0.2 0.0 - 0.3 12/12 [place] CHEM PANEL Bili Indirect 0.3 0.0 - 1.0 12/12 [place] CHEM PANEL Globulin 4.5 2.7 - 4.2 12/12 [place] CHEM PANEL A/G Ratio 0.8 0.7 - 1.6 12/12 [place] CHEM PANEL Glucose Lvl 83 70 - 99 12/12 [place] CHEM PANEL BUN 20 7 - 22 12/12 [place] CHEM PANEL Creatinine 1.42 0.50 - 1.40 12/12 MH Lvl /2019 [place] CHEM PANEL Sodium Lvl 139 135 - 145 12/12 [place] CHEM PANEL Potassium Lvl 3.6 3.5 - 5.1 12/12 [place] CHEM PANEL Chloride Lvl 108 95 - 109 12/12 [place] CHEM PANEL CO2 27 24 - 32 12/12 [place] CHEM PANEL Calcium Lvl 8.8 8.5 - 10.5 12/12 [place] CHEM PANEL AGAP 7.6 10.0 - 20.0 12/12 [place] CHEM PANEL eGFR 53 12/12 Result Comment: The [place] eGFR is calculated using the CKD-EPI formula. [...] WBC 9.5 3.7 - 10.4 02/ MH [place] HEMATOLOGY RBC 4.50 4.70 - 6.10 / [place] HEMATOLOGY Hgb 13.5 14.0 - 18.0 / [place] HEMATOLOGY Hct 40.8 42.0 - 54.0 12/12 [place] HEMATOLOGY MCV 90.8 80.0 - 94.0 12/12 [place] HEMATOLOGY MCH 30.1 27.0 - 31.0 / [place] HEMATOLOGY MCHC 33.1 32.0 - 36.0 / [place] HEMATOLOGY RDW 13.6 11.5 - 14.5 12/12 [place] HEMATOLOGY Platelet 225 133 - 450 12/12 [place] HEMATOLOGY MPV 8.8 7.4 - 10.4 12/12 [place] HEMATOLOGY PT 13.2 12.0 - 14.7 12/12 [place] HEMATOLOGY INR 1.00 0.85 - 1.17 12/12 [place] HEMATOLOGY PTT 31.1 22.9 - 35.8 12/12 [place] HEMATOLOGY Segs 62.8 45.0 - 75.0 12/12 [place] HEMATOLOGY Lymphocytes 22.8 20.0 - 40.0 12/12 [place] HEMATOLOGY Monocytes 8.5 2.0 - 12.0 12/12 [place] HEMATOLOGY Eosinophils 4.9 0.0 - 4.0 12/12 [place] HEMATOLOGY Basophils 1.0 0.0 - 1.0 12/12 [place] HEMATOLOGY Neutrophils # 5.9 1.5 - 8.1 / [place] HEMATOLOGY Lymphocytes # 2.2 1.0 - 5.5 / [place] HEMATOLOGY Monocytes # 0.8 0.0 - 0.8 / [place] HEMATOLOGY Eosinophils # 0.5 0.0 - 0.5 / [place] HEMATOLOGY Basophils # 0.1 0.0 - 0.2 / [place] SPECIAL Hgb A1C 6.3 <=5.6 % 12/12 MH /2019 [place] Pathology Reports No Data Provided for This Section Diagnostic Reports Report Value Date Source Spine lumbar 2 or 3 PROCEDURE INFORMATION: 07/12/2020 OP ID [place] views DX Exam: XR Lumbosacral Spine, 2 [...] Chicho Anders MD On 07/12/2020 09:11:35; [id number] Spine lumbar wo Spine lumbar wo contrast [...] atherosclerosis. Chest 1view DX PROCEDURE INFORMATION: 12/12/2019 [facility] Exam: XR Chest, 1 View Exam date [...] Armand Dodd MD On 12/12/2019 12:46:19; - [id number] Spine lumbar Radiation Dose CTDIVOL = 0 (mGy): DLP = 307 (mGy -cm) 10/27/2019 [facility] myelogram CT PROCEDURE INFORMATION: Exam: CT Lumbar [...] Theodore Iniguez MD On 10/27/2019 15:50:43; VR-SME [id number] Spine lumbar PROCEDURE INFORMATION: 10/27/2019 [place] [...] Theodore Iniguez MD On 10/27/2019 13:07:05; LORE [id number] Consultation Notes No Data Provided for This Section Discharge Summaries No Data Provided for This Section History and Physicals No Data Provided for This Section Vital Signs Vital Sign Value Date Comments Source Respitory Rate 10 01/02/2020 [facility] Systolic (mm Hg) 132 01/02/2020 [facility] Diastolic (mm Hg) 82 01/02/2020 [place] Respitory Rate 13 01/02/2020 [facility] Systolic (mm Hg) 113 01/02/2020 [facility] Diastolic (mm Hg) 76 01/02/2020 [place] Respitory Rate 10 01/02/2020 [facility] Systolic (mm Hg) 126 01/02/2020 [facility] Diastolic (mm Hg) 77 01/02/2020 [place] Height 175.26 cm 01/02/2020 [facility] Weight 63.636 01/02/2020 [facility] BMI Calculated 20.72 01/02/2020 [facility] Height 152.4 cm 12/11/2019 [facility] Weight 63.636 12/11/2019 [facility] BMI Calculated 27.4 12/11/2019 [facility] Encounters Location Location Encounter Encounter Reason Attending ADM DC Stat us Source Details Type Number For Provider Date Date Visit [facility] [id number] Tay 10/27 10/28 Edwin Ashley II /2019 [facility] Day Surgery [id number] Tay 01/01 01/01 Edwin Ashley II [facility] Outpt Diag [id number] Tay 04/19 04/20 [facility] [place] Outpt Diag [id number] Tay 07/12 07/13 [facility] [place] Procedures Procedure Code Date Perfomer Comments Source Bypass<sup>1</pearson [id number] [facility] and,MH p> bypass.2016 [facility] [place] Denture care [id number] [facility], [facility], [facility] [place] Discectomy<sup>2 [id number] Back sugery with [facility], </sup> katelyn placement. [facility], [facility] [place] Implantation<sup [id number] Right superior [place],MH >3</sup> hip electrical [facility], stimulator [facility] Neck [id number] "2 Plates and 8 MH [facility] nd, implantation<sup Screws in neck" OPI D [facility] >4</sup> [place],[facility] Assessment and Plan No Data Provided for This Section Plan of Care No Data Provided for This Section Social History Social History Date Source Social History TypeResponse 01/02/2020 [facility] Smoking Status Former smoker; Type: [...] entered on: 01/02/20 Social History TypeResponse 02/22/2019 [facility] Smoking Status Former smoker; Type: Cigarettes; Previou [...]
--- OUTSIDE RECORDS SUMMARY | 2020-09-09 19:58 | XMS REPORT | Continuity of Care Document ---
:1960 Author Organization [facility] t Address [address] [place] [address] Care Team Providers Name Role Phone Sharpless Primary Care Physician Jessica ORTIZ Attending Clinician Unavailable Leticia Vasquez MD Attending Clinician Ramón HAYES Attending Clinician Singer MENDOZA Attending Clinician Deonte HAYES Attending Clinician Biju Ashley II Attending Clinician MADHURI DWYER Attending Clinician Unavailable Divina CATHERINE Attending Clinician Unavailable Leticia Vasquez MD Admitting Clinician Biju Ashley II Admitting Clinician SHIEKH SROUJIEH, AHMAD Admitting Clinician Unavailable Divina CATHERINE Admitting Clinician Unavailable Payers Payer Name Policy Type Policy Effective Date Expiration Date Sour ce Number [employer] [facility] [id number] [facility] - MEDICARE MGD 00:00[facility] [id number] 016-Present Problems Condition Condition Condition Status Onset Resolution Last Treating Co mments Source Name Details Category Date Date Treatment Clinician Date 16 - Diagnosis Active 2020-04-30 M emoria "RADICULOP 6-04 12:58:00 l ATHY, M54.16 - 00:01: Raúl n LUMBAR "RADICULOP 00 REGION" ATHY, LUMBAR REGION" Active 03/28/2020 MH OPID [facility] UNK Diagnosis Active 2019-12-12 Mem oria 2-17 11:38:00 l UNK 00:00: Edwin 00 Active 12/11/2019 [facility] Edwin RADICULOPA Diagnosis Active 2020-01-02 Memoria THY, 2-17 09:54:00 l LUMBAR 00:00: [place] REGION RADICULOPA 00 THY, LUMBAR REGION Active 12/11/2019 [facility] [place] M54.16 Diagnosis Active 2018-102019-10-27 [facility] oria RADICULOPA 1-20 08:57:00 l THY, M54.16 00:00: Edwin LUMBAR RADICULOPA 00 REGION THY, LUMBAR REGION Active 09/13/2019 [facility] Hypertensi Disease [facility] - emergency emergency 00:00: Medi dustin 00 Center Acute Acute Disease Active [facility] kidney -20 [facility] - injury injury 00:00: Medical 00 Center Diarrhea Diarrhea Disease [facility] Center Transamini Transamini Disease Active [facility] tis tis -20 [facility] - 00:[facility]: Medical 00 Center Hepatitis [...] Type Date Date Clinician Penicill DA Active [facility] ins 08 Clear 00:00: Pink 00 [facility] codeine DA Active [facility] 08 Clear 00:00: Pink 00 [facility] Cephalos Propensi Active Nausea And CH [...] penicill Active Memori a ins ins l [place] codeine codeine Active Memoria l Edwin penicill penicill Active Memori a in in l Edwin morphine morphine Active Memori a l Edwin Social History Social Habit Start Date Stop Date Quantity Comments Source Sex Assigned At [facility] Tobacco use and 2019-06-14 2019-06-14 Never used [facility] kes - exposure 00:00:00 00:00:00 [facility] History of tobacco 2018-05-25 [address] [facility] use [facility] Smoking Status Start Date Stop Date Source Social History 2019-02-22 23:13:17 2019-02-22 23:13:17 [facility] Medications Ordered Filled Start Stop Current [...] 3-10 (Same as: l 19:18: Normodyne, Edwin Trandate) Push over 2 minutes Give bolus over 2-3 minutes. Ketorolac 2019- No 4 days Memor ia 3-10 l 19:18: MEDICATION Edwin WASTE Product Size: 30 mg Product Wasted: ___ mg Acetaminoph No Notes: Max Memoria en 3-10 acetaminop l 19:18: hen 4000 Edwin 00 mg/day (4 gm/day). (Same as: Tylenol Extra Strength) Fentanyl No Notes: Memoria 3-10 (Same as: l 19:18: Sublimaze) [place] 00 Preservat alberto free. Hydromorpho No Notes: Flaquito radha ne 3-10 Same as: l 19:18: Dilaudid [place] 00 Naloxone 2019-0 No Notes: Memoria 3-10 Same as l 19:18: Narcan Edwin 00 Meperidine 2019- No Notes: Memor ia 3-10 (Same as: l 19:18: Demerol) Edwin 00 "Use Precaution in Elderly, Seizure disorders, and Renal impairment " Ondansetron No Notes: Flaquito radha 3-10 (Same as: l 19:18: Zofran) [place] MEDICATION WASTE Product Size: 4 mg Product [...] 2019-0 No Route: IV, Memoria MINE (ANES) 3-10 Drug form: l 19:05: INJ, ONCE, Stop date: 01/02/20 14:05:00 CDT acetaminoph 2019-0 No Route: IV, Memoria en (ANES) 3-10 Drug form: l 19:05: INJ, ONCE, Stop date: 01/02/20 14:05:00 CDT ePHEDrine 2019-0 No Route: IV, Me moria (ANES) 3-10 [...] Chloride 3-10 1000 l 0.0014 16:00: ml/hr, [place] MEQ/ML / 00 Infuse Potassium Over: 1 Chloride hr, Route: 0.004 IV, 1,000, MEQ/ML / Drug form: Sodium INJ, PRE Chloride OP, Dosing 0.103 Weight MEQ/ML / 63.636 kg, Sodium Start Lactate date: 0.028 20 MEQ/ML 11:00:00 Injectable CDT, Solution Duration: 1 doses or times, Bolus, 0 Calcium 2020-0 No 1,000 mL, Memor ia Chloride 3-10 Rate: 75 l 0.0014 15:38: ml/hr, [place] MEQ/ML / 00 Infuse Potassium over: 13.3 [...] 00 ERTAB, ONCE, Start date: 12/12/19 14:16:00 GLASS SANDER, Stop date: 12/12/19 14:16:00 GLASS SANDER oxyCODONE 2020-0 No 10 mg, Memori a 10 mg 2-18 Route: PO, l extended 20:09: Drug form: Her mitchell release 00 ERTAB, ONCE, Start date: 12/12/19 14:09:00 GLASS SANDER, Stop date: 12/12/19 14:09:00 GLASS SANDER Dilaudid 2020-0 No Notes: Memoria 2-18 Same as: l 20:08: Dilaudid [place] 00 Oxycodone 2020-0 No Notes: Memori a Hydrochlori 2-18 (Same as: l de 5 MG 19:05: Roxicodone Herm aurelia Oral Tablet 00 ) Calcium 2020-0 No 1,000 mL, Memor ia Chloride 2-18 Rate: 75 l 0.0014 18:05: ml/hr, [place] MEQ/ML / 00 Infuse Potassium over: 13.3 Chloride hr, Route: 0.004 IV, Dosing MEQ/ML / Weight Sodium 63.636 kg, Chloride Total 0.103 Volume: MEQ/ML / 1,000, Sodium Start Lactate date: 0.028 12/12/20 MEQ/ML 12:05:00 Injectable GLASS SANDER, Solution Duration: 30 day, Stop date: 01/11/20 [...] Refill(s) Extended Release Capsule [Coreg] 12 HR 2019-0 No 1,000 mg = Memori a ranolazine [...] tab, PO, l tablet 16:47: Daily, 0 [place] 00 Refill(s) AMIODarone 2019-0 Yes 200 mg = 1 M emoria 200 mg oral 2-17 tab, PO, l tablet 16:47: BID, 0 Edwin 00 Refill(s) Potassium 2019-0 Yes 20 mEq, Memor ia Chloride 2-17 PO, Daily, l 16:47: 0 [place] 00 Refill(s) Omnipaque 2020-0 No Notes: Memori a 180 1-03 (Same l 15:15: as:Omnipaq [place] 00 ue 180). WASTE: F/P - Black; E - Municipal Trash Bin amitriptyli Yes 50mg QD Take [address] ne (ELAVIL) 8-22 by mouth Luke s - 50 MG 14:22: nightly. Medical tablet 42 Center DULoxetine Yes 60mg QD Take [address] (CYMBALTA) 8-22 by mouth [facility] - 60 MG 14:22: daily. Medical capsule 42 Center vitamin E Yes 200U QD Take [address] 200 UNIT 8-22 Units by [facility] - capsule 14:22: mouth Medical 42 daily. [place] lithium 300 Yes 300mg QD Take [address] MG capsule 8-22 mg by [facility]ukes - 14:22: mouth Medical 42 nightly . [place] lisinopril Yes 40mg QD Take [address] (PRINIVIL,Z 8-22 by mouth Luke s - ESTRIL) 40 14:22: daily . Medi dustin MG tablet 42 Center albuterol 0 Yes 1{puff} Inhale [address] [...] tablet hours as needed for Pain. amiodarone 0 Yes 100mg Q.5D Take [address] (PACERONE) 8-22 mg by [facility] - 100 MG 14:22: mouth 2 Medical tablet 42 (two) Center times daily. isosorbide 0 Yes 60mg QD Take 60 mg C [...] [facility]ukes - (SYMBICORT) 14:22: mouth via M edSocialDefender 80-4.5 42 inhaler 2 [place] mcg/actuati (two) on inhaler times daily. clopidogrel 2019- No 75mg QD Take [address] (PLAVIX) 75 06-15 08-21 tablet (75 L ukes - mg tablet 00:00: 23:59 mg total) Me dical 00 :00 by mouth Center daily. Albuterol Albuterol 2018- Yes Na Heard inhale [address] [facility] Sulfate Sulfate 5-14 vial by [facility]ukes - 00:00: mouth via Memoria 00 nebulizer l 3 [facility] Ipratropium Ipratropium 2018- Yes [place] [facility] as [facility] [place] 5-14 directed [facility] - 00:00: Memoria 00 [facility] ent Clinics Amlodipine Amlodipine 2017-10 Yes Na [facility]ard [address] Besylate Besylate 0-29 [facility]ukes - 00:00: Memoria 00 [facility] ent Clinics aspirin 81 2018 Yes 81mg QD Take 1 [facility] [...] week then Memoria 00 1 tablet l [facility] ent Clinics carvedilol Yes 25mg Take 1 [facility] t (COREG) 25 4-05 tablet (25 Kofi es - MG tablet 00:00: mg total) Med ical 00 by mouth 2 Center (two) times daily with breakfast and dinner. Amitriptyli Amitriptyli Yes Na [facility] [address] [address] ne HCl ne HCl [facility] - [facility] l [facility] ent Clinics Dulera Dulera Yes Na [facility] 2 puffs [facility]ics Amiodarone Amiodarone Yes [place] [facility] [address] HCl HCl [facility] ent Clinics Aspir-81 Aspir-81 Yes Na [facility]ard [address] [facility] ent Clinics Isosorbide Isosorbide Yes Na [facility]ard [address] Mononitrate Mononitrate in the [facility]ukes - ER ER morning Memoria l [facility] ent Clinics Dacula Dacula Yes Na Heard [address] Carbonate Carbonate at bedtime [facility] - [facility] l [facility] ent Clinics Atorvastati Atorvastati Yes Na Heard [address] [facility] n Calcium n Calcium [facility] ent Clinics Losartan Losartan Yes Na [facility]ard [address] Potassium Potassium [facility]ics Gabapentin Gabapentin Yes [place] [facility] [address] [facility] Carvedilol Carvedilol Yes Na [facility] as [facility] directed [facility] HydrALAZINE HydrALAZINE Yes [place] [facility] [address] HCl HCl with food [facility] Citalopram Citalopram Yes Na Headr [address] Hydrobromid Hydrobromid L [facility]kes - e e Memoria l [facility] Lorazepam Lorazepam Yes Na Heard [address] as needed [facility] [place] Hills[place] Yes Na Heard [address] as needed [facility] Hydrochloro Hydrochloro Yes Na Heard [address] thiazide thiazide in the [facility] - morning [facility] l [facility] Ranolazine Ranolazine Yes Na Heard [address] ER ER [facility]ics Lisinopril Lisinopril Yes Na Heard [address] [facility] Lactulose Lactulose Yes Na Herad [address] [facility] Dacula Dacula Yes Na Headr TAKE [address] [facility] Carbonate Carbonate CAPSULE BY Lukes - MOUTH Memoria DAILY AT l BEDTIME [facility] Vital Signs Vital Name Observation Time Observation Value Comments Source Respitory Rate 2020-01-02 20:30:00 Dayanna al [place] Systolic (mm Hg) 2020-01-02 20:30:00 Fla[place] rial Edwin Diastolic (mm Hg) 2020-01-02 20:30:00 [facility] orial Edwin Respitory Rate 2020-01-02 20:15:00 Memori al [place] Systolic (mm Hg) 2020-01-02 20:15:00 Fla[place] rial Edwin Diastolic (mm Hg) 2020-01-02 20:15:00 Mem orial [place] Respitory Rate 2020-01-02 20:00:00 Memori al [place] Systolic (mm Hg) 2020-01-02 20:00:00 Flaquito rial [place] Diastolic (mm Hg) 2020-01-02 20:00:00 [facility] roxanne Pineda Height 2020-01-02 16:08:00 175.26 cm [facility] Weight 2020-01-02 16:08:00 Memorial Edwin BMI Calculated 2020-01-02 16:08:00 Memori al [place] Height 2019-12-11 17:02:00 152.4 cm [facility] [place] Weight 2019-12-11 17:02:00 [facility] Edwin BMI Calculated 2019-12-11 17:02:00 Memori al Edwin Procedures Procedure Date / Time Performed Performing Clinician Sourc e SARS-COV2/RT-PCR ([facility] 2020-05-19 20:30:00 [facility] Bypass<sup>1</sup> [facility] aurelia Denture care [facility] [place] Discectomy<sup>2</sup> [facility] Edwin Implantation<sup>3</pearson [facility] [place] p> Neck [facility] [place] implantation<sup>4</pearson p> Plan of Care Planned Activity Planned Date Details Comments Source Future Scheduled 2022-06-[address] [facility] - Test 00:00:00 (procedure) [code = Medical Center 88815669] Future Scheduled 2020-06-25 INFLUENZA VACCINE (#1) C [...] Medica l Center colon (procedure) [code = 797244391] Encounters Start End Encounter Admission Attending Care Care Encounter Source Date/Time Date/Time Type Type Clinicians Facility Department ID 2020-08-12 2020-08-12 Outpatient [facility] [id number] [facility] 2020-08-08 2020-08-08 Outpatient [facility] [id number] [facility] 2020-07-22 2020-07-22 Transition Jackie Lopez [id number] 00:00:00 00:00:00 of Care Mirella Castro [id number] [place] [id number] 2020-07-18 2020-07-20 [facility] Darren Vasquez 1.2. [id number] 22:50:00 13:00:00 Encounter Moshe Melgar [id number] [facility] [id number] 2020-07-18 2020-07-18 Emergency Mejia Hdz [facility] [id number] 17:31:00 21:56:00 Osmin Clemons [id number] [place] [id number] [place] [id number] 2020-07-12 2020-07-12 Outpatient Dion OIP OIP [id number] 08:02:00 23:59:00 Tay Ivy 2020-06-25 2020-06-25 [facility] [id number] [address] 11:20:00 11:20:00 Mult[employer]at [employer]. [facility] 2020-05-03 2020-05-03 [facility] [id number] 14:25:00 14:25:00 Multistat [employer] [facility] 2020-04-19 2020-04-19 Outpatient Dion [id number] 09:58:00 23:59:00 Tay [id number] Biju [id number] 2020-02-12 2020-02-12 [facility] [id number] 11:15:00 11:15:00 [employer] [facility] 2020-01-26 2020-01-26 [facility] [id number] 11:20:00 11:20:00 t Mart [employer]max[employer] - [employer] [facility] Medicine Outpati ent Clinics 2020-01-11 2020-01-11 [facility] [id number] 15:32:00 15:32:00 t Mart Marxent Labs s - [employer] [facility] Medicine Outpati ent Clinics 2020-01-03 2020-01-03 [facility] [id number] 09:20:00 09:20:00 t [employer] [facility] Medicine Outpati ent Clinics 2020-01-02 2020-01-02 Outpatient USMAN AshleyPL MHPL [id number] 09:54:00 15:59:00 Tay Biju 2020-01-02 2020-01-02 Outpatient MHBL MHBL [id number] MHBL 09:54:00 09:54:00 2019-11-13 2019-11-13 [facility] [id number] 14:13:00 14:13:00 t Specialty/U Abigail kes - Specialty rology [facility] a /Urology Clinic l Clinic Outpati ent Clinics 2019-11-01 2019-11-01 [facility] [id number] 09:20:00 09:20:00 t [employer] [facility] Outpati ent Clinics 2019-10-27 2019-10-27 Outpatient DionUSMANSE MHSE [id number] 08:50:00 23:59:00 Tay Biju 2019-10-27 2019-10-27 Outpatient MHSE MHSE [id number] MH 08:50:00 08:50:00 [facility] a Hospita l 2019-09-05 2019-09-05 [facility] [id number] 09[facility]29:00 09:29:00 t Mart Guguchu [facility] Medicine Outpati ent Clinics 2019-05-31 2019-05-31 [facility] [id number] 12:00:00 12:00:00 t Mart [employer] [facility] Medicine Outpati ent Clinics 2019-05-30 2019-05-30 [facility] [id number] 15:00:00 15:00:00 t Mart Mart Listen Edition s - Drive [facility] Medicine l Medicine Outpati ent Clinics 2019-04-26 2019-04-26 [facility] [id number] 15:09:00 15:09:00 t Mart [employer] Labs s - Drive [facility] Medicine l Medicine Outpati ent Clinics 2019-03-30 2019-03-30 [facility] [id number] 15:40:00 15:40:00 t Mart [employer] s - [employer] [facility] Medicine l Medicine Outpati ent Clinics 2019-02-23 2019-02-23 Outpatient E MHSE MED [id number] 15:40:00 15:40:00 [facility] 2019-01-10 2019-01-10 [facility] [id number] 08:41:00 08:41:00 t Mart [employer] [facility] l Medicine Outpati ent Clinics 2018-12-12 2018-12-12 [facility] [id number] 08:15:00 08:15:00 t Mart [employer] s - [employer] [facility] Medicine l Medicine Outpati ent Clinics 2018-07-27 2018-07-27 [facility] [id number] 15:15:00 15:15:00 t Mart [employer] [facility] Medicine l Medicine Outpati ent Clinics 2018-06-09 2018-06-09 [facility] [id number] 08:00:00 08:00:00 t Mart [employer] s - Drive [facility] Medicine l Medicine Outpati ent Clinics 2018-05-31 2018-05-31 [facility] [id number] 09:00:00 09:00:00 t Mart [employer] s - [employer] [facility] Medicine l Medicine Outpati ent Clinics 2018-04-20 2018-04-20 [facility] [id number] 09:45:00 09:45:00 t Mart [employer] s - [employer] [facility] Medicine l Medicine Outpati ent Clinics 2018-04-15 2018-04-15 [facility] [id number] 15:26:00 15:26:00 [facility] 2018-03-15 2018-03-15 Outpatient Nelson Palomares [id number] [facility] 15:15:00 15:15:00 [facility] 2018-02-28 2018-02-28 Outpatient Nelson Palomares [id number] [facility] 09:15:00 09:15:00 [facility] Results Test Description Test Time Test Comments Results Result Comments Source SARS-CoV2/RT-PCR ([facility] & Ref Labs) 2020-05-20 09:54:00 Test Item Value Reference Range Interpretation Comme nts SARS-COV2/RT-PCR (test code = Negative Not Detected, 41034-7) Negative, See external report for linked test SARS-COV-2 PERFORMING LAB [facility] RGAEME (test code = 48096-7) JENNIFER (test code = JENNIFER) Negative result [...] of the Act. Fact Sheet for Healthcare Providers:https://www.Nutzvieh24. CrossFiber/sites/default/files/produ ct/documents/Fact_Sheet_HC_Pr rhvsafy_Pwzx_JJLZ-YkM-3.pdf Fact Sheet for Healthcare Patients:https://www.SmarTots/sites/default/files/produc t/documents/Fact_Sheet_Patien mr_Kiiy_YEHA-OqL-6.pdf Performing Laboratory:[facility] [place] [address] [facility] REF [facility])2020-05-20 09:54:00 Test Item Value Reference Range Interpretation Comments SARS-COV2/RT-PCR (test Negative Not Detected, Negative, code = 4513950) See external report for linked test SARS-COV-2 PERFORMING LAB [facility] RGAEME (test code = 6177602) Negative result for this test determines that [...] 564(g) of the Act.Fact Sheet for Healthcare Providers:https://www.GoSporty/sites/default/files/product/documents/Fact_Shee p_CD_Iytwzlcvc_Tdmz_AOKF-XmB-8.pdfFact Sheet for Healthcare Patients:https://www.GoSporty/sites/default/files/product/ documents/Omhc_Aiwbi_Bqssjqmj_Yilr_PATN-GyT-2.pdfPerforming Laboratory:[facility], [place] [address]KMHI [id number] 18:34:007.9[facility] HermannCHEM [id number] 18:34:003.4[facility] HermannCHEM [id number] 18:34:0039Mem[facility] HermannCHEM [id number] 18:34:0032 [facility] HermannCHEM [id number] 18:34:0049Mem[facility] HermannCHEM PANEL 2019-12-12 18:34:000.5[facility] HermannCHEM [id number] 18:34:000.2[facility] HermannCHEM [id number] 18:34:000.3[facility] HermannCHEM [id number] 18:34:004.5[facility] HermannCHEM [id number] 18:34:00 Test Item Value Reference Range Interpretation Comments A/G Ratio (test code = A/G Ratio) 0.8 1 0.7-1.6 [facility] HermannCHEM [id number] 18:34:0083Mem[facility] HermannCHEM PANEL 2019-12-12 18:34:0020[facility] HermannCHEM [id number] 18:34:001.42[facility] HermannCHEM [id number] 18:34:57931Ykmdvtop HermannCHEM [id number] 18:34:003.6[facility] HermannCHEM [id number] 18:34:23683Opwljasp HermannCHEM [id number] 18:34:0027[facility] HermannCHEM [id number] 18:34:008.8 [facility] HermannCHEM [id number] 18:34:007.6[facility] HermannCHEM PANEL 2019-12-12 18:34:0053Memorial YgwbibsMKIYSAFWII6983-21-55 18:34:009.5Memorial OxsdfyzLAAJBKJBDG4363-74-54 18:34:004.50Memorial IttkqddHBERMDJQBS2868-48-99 18:34:0013.5[facility]orial YnaavesLRSOONLWIS4859-31-75 18:34:0040.8[facility] Edwin [id number] 18:34:0090.8Memorial ItqbeegTHDXWTPPKS0679-41-95 18:34:00 Test Item Value Reference Range Interpretation Comments MCH (test code = MCH) 30.1 pg 27.0-31.0 Memorial [id number] 18:34:0033.1[facility] HermannHEMATOLOGY 2019-12-12 18:34:0013.6Memorial ZotnxauCXGYTJQLOI7540-16-62 18:34:55220Exemeliv TmkovufJXIZLWHDQZ7195-51-28 18:34:008.8Memorial KfswvgjEEZBKOEUYI4942-12-02 18:34:00 Test Item Value Reference Range Interpretation Comments PT (test code = PT) 13.2 s 12.0-14.7 Memorial [id number] 18:34:00 Test Item Value Reference Range Interpretation Comments INR (test code = INR) 1.00 1 0.85-1.17 Memorial [id number] 18:34:00 Test Item Value Reference Range Interpretation Comments PTT (test code = PTT) 31.1 s 22.9-35.8 Memorial NcdvqtxQTMNNOYGWH1017-85-67 18:34:0062.8[facility] HermannHEMATOLOGY 2019-12-12 18:34:0022.8Memorial NntxyvtWMELCDNAGX8369-54-16 18:34:008.5Memorial SqolkhyZDEYZGWSBH3761-12-17 18:34:004.9Memorial YypcdriVOXWRCFPDA7314-06-77 18:34:001.0Memorial HkosmusHNLGJHKQJY3293-76-11 18:34:005.9[facility] Edwin FNWFPWWVQW3456-44-49 18:34:002.2Memorial IbvtglqSXYDGBOVSN2895-08-95 18:34:000.8 Memorial DlspmqvIMBACWQFYK7599-60-03 18:34:000.5[facility] HermannHEMATOLOGY 2019-12-12 18:34:000.1[facility] HermannSPECIAL [id number] 18:34:006.3 [facility] [id number] 06:36:00 Test Item Value Reference Range Interpretation [...] CA) 8.9 MG/DL 8.5-10.1 N CBC W/AUTO [id number] 06:32:00 Test Item Value Reference Range Interpretation [...] = NO DIFF/SCN CRITERIA MDIFF) COMPREHENSIVE METABOLIC [id number] 06:08:00 Test Item Value Reference Range Interpretation [...] TOTAL (test code = ALKP) CBC W/AUTO [id number] 05:52:00 Test Item Value Reference Range Interpretation [...] concentrations <2 ng/mL are obtai brandon. LACTIC [id number] 16:03:00 Test Item Value Reference Range Interpretation Comments LACTIC ACID (test code = LACT) 1.0 mmol/L 0.4-2.0 N - XR CHEST 1 [id number] 15:59:00 Name: ALHAJI FARAH [facility] : 1960 Age/S: 58 / M [address] [place] Unit #: [id number] Loc: [place] [address] Phys: Jac Leal MD Acct: [id number] Dis Date: Status: ADM IN PHONE #: [phone] Exam Date: 11/02/2019 9126 FAX #: Reason: Fever EXAMS: CPT: [id number] XR CHEST 1 V 94358 Fluoro Time: DAP (Gy m2): Air Kerma [...] PAGE 1 Signed Report Name: ALHAJI FARAH [place] : 1960 Age/S: 58 / M [address] [place] Unit #: [id number] Loc: [place] [address] Phys: Jac Leal MD Acct: [id number] Dis Date: Status: ADM IN PHONE #: [phone] Exam Date: 11/02/2019 1556 FAX #: Reason: Fever EXAMS: CPT: [id number] XR CHEST 1 V 36879 Fluoro Time: DAP (Gy m2): Air Kerma (mGy): <Continued> Technologist: Sabine Cross RT(R)(CT) Trnscb Date/Time: 11/02/2019 (1559) [email or web address] Orig Print D/T: S: 11/02/2019 (9978) PAGE 2 Signed [id number] 04:22:00 Test Item Value Reference Range Interpretation [...] yby method. Completed by Nursing: NOBASIC METABOLIC [id number] 04:19:00 Test Item Value Reference Range Interpretation [...] CA) 8.1 MG/DL 8.5-10.1 L CBC W/AUTO [id number] 04:08:00 Test Item Value Reference Range Interpretation [...] = NO DIFF/SCN CRITERIA MDIFF) - CTA [id number] 22:57:00 Name: ALHAJI FARAH : 1960 Age/S: 58 / M [id number] [address] [place] Unit #: [id number] Loc: [place] [address] Phys: Jac Leal MD Acct: [id number] Dis Date: Status: ADM IN PHONE #: [phone] Exam Date: 11/01/2019 2073 FAX #: Reason: Chest PAIN EXAMS: CPT: [id number] CTA CHEST 72388 Examination: CTA chest, PE protocol Indication: Chest [...] PAGE 1 Signed Report (CONTINUED) Name: ALHAJI FARAHland : 1960 Age/S: 58 / M [address] [place] Unit #: [id number] Loc: [place] [address] Phys: Jac Leal MD Acct: [id number] Dis Date: Status: ADM IN PHONE #: [phone] Exam Date: 11/01/2019 7347 FAX #: Reason: Chest PAIN EXAMS: CPT: [id number] CTA CHEST 19042 <Continued> No suspicious or destructive osseous lesions. Impression: Limited exam secondary to phase of contrast no evidence of acute pulmonary embolism proximal lobar pulmonary arteries. There is irregular, possibly nodular thickening of the esophagus, recommend further evaluation with endoscopy Additional findings as detailed above at 7475 Reported and signed by: Katy Dykes M.D. CC: Jac Leal MD Technologist:Curly Logan, RT(R)(CT); .. CTDI: DLP: Trnscb Date/Time: 11/01/2019 (2256) t.SDR.SR31 Orig Print D/T: S: 11/01/2019 (2768) PAGE 2 Signed ReportGLYCOSYLATED HEMOGLOBIN [id number] 17:41:00 Test Item Value Reference Range Interpretation Comments GLYCOSYLATED HEMOGLOBIN (HA1C) 6.3 % A1C 4.2-6.3 N (test code = GLYHGB) ESTIMATED AVERAGE GLUCOSE (test 134 MG/DLest code = EAG) COMPREHENSIVE METABOLIC [id number] 17:40:00 Test Item Value Reference Range Interpretation [...] = LDL/HDL) 2.94 Ratio 1.48-3.22 Avg N [id number] 17:40:00 Test Item Value Reference Range Interpretation Comments PHOSPHOROUS (test code = PHOS) 3.5 MG/DL 2.5-4.9 N RULE OUT NM [id number] 17:40:00 Test Item Value Reference Range Interpretation [...] nume rical results may roma yby method. [id number] 17:40:00 Test Item Value Reference Range Interpretation Comments MAGNESIUM (test code = MAG) 2.5 MG/DL 1.8-2.4 H TROPONIN I [id number] 15:24:00 Test Item Value Reference Range Interpretation Comments TROPONIN I RAPID 0.04 ng/mL 0.00-0.08 N - The use o f serial (test code = sampling and te sting TROPIRAP) protocol is a recommended pra ctice- An elevated tro ponin level alone is often not sufficient for diagnosis of my ocardial infarction. BASIC METABOLIC [id number] 13:39:00 Test Item Value Reference Range Interpretation [...] 133 Unit/L 26-192 N CK) TROPONIN I [id number] 11:56:00 Test Item Value Reference Range Interpretation Comments TROPONIN I RAPID 0.04 ng/mL 0.00-0.08 N - The use o f serial (test code = sampling and te sting TROPIRAP) protocol is a recommended pra ctice- An elevated tro ponin level alone is often not sufficient for diagnosis of my ocardial infarction. - XR CHEST 1 [id number] 11:53:00 Name: ALHAJI FARAH : 1960 Age/S: 58 / M [address] [place] Unit #: [id number] Loc: [place] [address] Phys: Darell Medrano MD Acct: [id number] Dis Date: Status: PRE ER PHONE #: [phone] Exam Date: 11/01/2019 1146 FAX #: Reason: chest pain EXAMS: CPT: [id number] XR CHEST 1 V 71239 Fluoro Time: DAP (Gy m2): Air Kerma [...] ALHAJI FARAH :1960 Age/S: 58 / M [address] [place] Unit #: [id number] Loc: [place] [address] Phys: Darell Medrano MD Acct: [id number] Dis Date: Status: PRE ER PHONE #: [phone] Exam Date: 11/01/2019 1146 FAX #: Reason: chest pain EXAMS: CPT: [id number] XR CHEST 1 V 65452 Fluoro Time: DAP (Gy m2): Air Kerma (mGy): <Continued> Technologist:Nirmal Negron RT(R)(MR) Trnscb Date/Time: 11/01/2019 (9133) JuanJH12 Orig Print D/T: S: 11/01/2019 (2507) PAGE 2 Signed ReportCBC W/O [id number] 11:50:00 Test Item Value Reference Range Interpretation [...] 11.80 fL 7.0-9.6 H MPV) CHEMISTRY 8 [id number] 11:47:00 Test Item Value Reference Range Interpretation [...] 49-113 N code = GFRBED) CHEMISTRY 8 [id number] 11:47:00 Test Item Value Reference Range Interpretation [...] 49-113 N (test code = GFRBED) TISSUE [id number] 10:31:00Surgical Pathology Report Case: [id number] Authorizing Provider: Caleb Dawn Collected: 06/14/2019 Jacob1 MD Carmen Ordering Location: [address] Received: 06/15/2019 0753 Service Pathologist: Misty Jackson MD Specimen: Ampulla, Ampulla Bx A. "AMPULLA", BIOPSY: - SQUAMOUS AND FOVEOLAR TYPE MUCOSA WITH MILD CHRONIC INFLAMMATION - NEGATIVE FOR MALIGNANCY (SEE COMMENT) Signing Pathologist Direct Phone Line: [phone] signed by Misty Jackson MD on 06/19/2019 at 10:31 AMThe biopsy shows fragments of squamous and foveolar type mucosa with mild chronic inflammation and cautery. Focal muscle is also seen. No definite small bowel/ biliary lining is seen. The ampulla normally does not have squamous lining. This could be a metaplastic change. Clinical and endoscopic correlation is required.34860Rzz and postop diagnosis: endoscopic ultrasound with endo, EUS and possible ERCP.Pre and postop diagnosis: abdominal painAmpulla, ampulla Bx .Received in formalin labeled with the patient's name, accession number and "ampulla" is a 0.3 x 0.3 x 0.2 cm piece of meehan-brown, irregular, mucosal-covered tissue. The specimen submitted in toto following filtration in cassette A1. SS/plPerformed.WV, ERCP 2019-06-16 12:50:00Reason for exam:->Abdominal PainFINAL REPORT A fluoroscopic unit was utilized for a procedure performed in the operating room. No interpretation was requested. Please refer to the operative report regarding findings. Please refer to PACS for patient radiation dose information. Signed: Diana Nicholas MDReport Verified Date/Time: 06/16/2019 12:50:49 Reading Location: [facility] Radiology Reading Room BLOOD CULTURE 2019-06-16 12:01:00 Test Item Value Reference Range Interpretation Comments CULTURE (BEAKER) (test No growth in 5 days code = 1095) BLOOD [id number] 12:01:00 Test Item Value Reference Range Interpretation Comments CULTURE (BEAKER) (test No growth in 5 days code = 1095) COMPREHENSIVE METABOLIC [id number] 07:08:00 Test Item Value Reference Range Interpretation [...] NOT APPLICABLE FOR DIALYSIS PATIEN TS. BLOOD [id number] 02:00:00 Test Item Value Reference Range Interpretation Comments CULTURE (BEAKER) (test No growth in 5 days code = 1095) BLOOD [id number] 02:00:00 Test Item Value Reference Range Interpretation Comments CULTURE (BEAKER) (test No growth in 5 days code = 1095) BLOOD [id number] 02:00:00 Test Item Value Reference Range Interpretation Comments CULTURE (BEAKER) (test No growth in 5 days code = 1095) COMPREHENSIVE METABOLIC [id number] 04:49:00 Test Item Value Reference Range Interpretation [...] 0-0 CELLS (BEAKER) (test code = 413) [id number] 16:17:00 Test Item Value Reference Range Interpretation Comments ACTIVATED CLOTTING TIME 125 sec TEST ED AT [facility] 67[address] ([facility]) (test code = [place] [address]) [address] PET, CARDIAC PERFUSION MULTIPLE STUDIES, REST AND [id number] 16:40:00 Reason for exam:->chest pain, evaluate for worsening CAD, s/p CABGFINAL REPORT PROCEDURE: MYOCARDIAL PERFUSION PET IMAGING (Rest/Stress)CPT CODE: 51480 INDICATION: Evaluate acute chest pain/discomfort CARDIOVASCULAR PROFILE:CAD [...] is no prior study for comparison. Signed: Aurbey Saenz MDReport Verified Date/Time: 06/12/2019 16:40:23 Reading Location: [address] Reading Room TROPONIN [id number] 02:08:00 Test Item Value Reference Range Interpretation [...] acute neurological disease, and persistent tachyarrhythmia.HEPATIC FUNCTION [id number] 02:02:00 Test Item Value Reference Range Interpretation [...] = 26 U/L 6-55 347) BASIC METABOLIC [id number] 02:02:00 Test Item Value Reference Range Interpretation [...] APPLICABLE FOR DIALYSIS PATIEN TS. VANCOMYCIN LEVEL, [id number] 01:59:00 Test Item Value Reference Range Interpretation [...] WBC 0-0 (BEAKER) (test code = 413) [id number] 07:20:00 Test Item Value Reference Range Interpretation Comments PROCALCITONIN (BEAKER) (test code 0.30 ng/mL <0.05 H = 3036) SEPSIS RISK (ng/mL)Low: 0.05-0.50Intermediate: 0.51-2.00High: >=2.01BASIC METABOLIC [id number] 07:16:00 Test Item Value Reference Range Interpretation [...] APPLICABLE FOR DIALYSIS PATIEN TS. HEPATIC FUNCTION [id number] 07:16:00 Test Item Value Reference Range Interpretation [...] WBC 0-0 (BEAKER) (test code = 413) [id number] 05:55:00 Test Item Value Reference Range Interpretation Comments MAGNESIUM (BEAKER) (test code = 2.1 mg/dL 1.6-2.6 627) LIPID [id number] 05:55:00 Test Item Value Reference Range Interpretation [...] 130-159 High 160-189 Very High >=190HEPATIC FUNCTION [id number] 05:55:00 Test Item Value Reference Range Interpretation [...] = 34 U/L 6-55 347) BASIC METABOLIC [id number] 05:55:00 Test Item Value Reference Range Interpretation [...] PATIEN TS. CBC W/PLT COUNT & AUTO [id number] 05:03:00 Test Item Value Reference Range Interpretation [...] PERCENT (BEAKER) (test code = 2801) TROPONIN [id number] 05:02:00 Test Item Value Reference Range Interpretation [...] acute neurological disease, and persistent tachyarrhythmia.LACTIC ACID, [id number] 04:48:00 Test Item Value Reference Range Interpretation Comments LACTATE BLOOD VENOUS (2) (BEAKER) 1.1 mmol/L 0.5-2.2 (test code = 2872) URINALYSIS W/ REFLEX URINE [id number] 03:25:00 Test Item Value Reference Range Interpretation [...] SOURCE(BEAKER) (test code = 2795) OXYGEN SATURATION, [id number] 03:04:00 Test Item Value Reference Range Interpretation [...] 0.7 mmol/L 0.5-2.2 (test code = 2872) [id number] 23:52:00 Test Item Value Reference Range Interpretation Comments PROCALCITONIN (BEAKER) (test code 0.30 ng/mL <0.05 H = 3036) SEPSIS RISK (ng/mL)Low: 0.05-0.50Intermediate: 0.51-2.00High: >=2.01TROPONIN [id number] 23:40:00 Test Item Value Reference Range Interpretation [...] failure, acidosis, acute neurological disease, and persistent tachyarrhythmia.[id number] 23:34:00 Test Item Value Reference Range Interpretation Comments PHOSPHORUS (BEAKER) (test code = 3.4 mg/dL 2.3-4.7 604) [id number] 23:34:00 Test Item Value Reference Range Interpretation Comments MAGNESIUM (BEAKER) (test code = 2.2 mg/dL 1.6-2.6 627) BASIC METABOLIC [id number] 23:34:00 Test Item Value Reference Range Interpretation [...] APPLICABLE FOR DIALYSIS PATIEN TS. HEPATIC FUNCTION [id number] 23:34:00 Test Item Value Reference Range Interpretation [...] = 42 U/L 6-55 347) COMPREHENSIVE METABOLIC [id number] 23:34:00 Test Item Value Reference Range Interpretation [...] S NOT APPLICABLE FOR DIALYSIS PATIEN TS. [id number] 23:34:00 Test Item Value Reference Range Interpretation Comments LIPASE (BEAKER) (test code = 749) 38 U/L 8-78 [id number] 23:33:00 Test Item Value Reference Range Interpretation Comments PARTIAL THROMBOPLASTIN TIME 27.3 seconds 22.5-36.0 (BEAKER) (test code = 760) [id number] 23:33:00 Test Item Value Reference Range Interpretation Comments FIBRINOGEN LEVEL (BEAKER) (test 300 mg/dl 225-434 code = 658) PROTHROMBIN TIME/[id number] 23:32:00 Test Item Value Reference Range Interpretation [...] mechanical heart valves.CBC W/PLT COUNT & AUTO [id number] 23:22:00 Test Item Value Reference Range Interpretation [...] (BEAKER) (test code = 2801) BLOOD GAS, [id number] 22:27:00 Test Item Value Reference Range Interpretation [...] code = 1819) 21.0 % POCT-LACTIC ACID, [id number] 21:53:00 Test Item Value Reference Range Interpretation Comments POC-LACTIC ACID, 1.6 mmol/L 0.9-1.7 TESTED AT [facility] [address] VENOUS (BEAKER) (test [place] code = 2805) [address] TROPONIN [id number] 18:59:00 Test Item Value Reference Range Interpretation [...] acute neurological disease, and persistent tachyarrhythmia.HEPATITIS C [id number] 16:55:00 Test Item Value Reference Range Interpretation Comments HEPATITIS C ANTIBODY (BEAKER) (test Reactive Nonreactive A code = 367) POCT-GLUCOSE [id number] 12:03:00 Test Item Value Reference Range Interpretation Comments POC-GLUCOSE METER 169 mg/dL 70-110 H TESTED AT [facility] [address] (BEAKER) (test code = [place] [address]) [address] HEPATITIS B CORE ANTIBODY, [id number] 08:37:00 Test Item Value Reference Range Interpretation Comments HEPATITIS B CORE TOTAL ANTIBODY Reactive Nonreactive A (BEAKER) (test code = 497) POCT-GLUCOSE [id number] 08:14:00 Test Item Value Reference Range Interpretation Comments POC-GLUCOSE METER 105 mg/dL 70-110 TESTED AT [place] [address] ([facility]) (test code = [place] [facility] 1538) [address] HEPATIC FUNCTION [id number] 07:10:00 Test Item Value Reference Range Interpretation [...] 67 U/L 6-55 H 347) BASIC METABOLIC [id number] 07:10:00 Test Item Value Reference Range Interpretation [...] FOR DIALYSIS PATIEN TS. HEPATITIS B SURFACE [id number] 06:58:00 Test Item Value Reference Range Interpretation Comments HEPATITIS B SURFACE ANTIBODY < mIU/mL <8.0 (BEAKER) (test code = 647) HEPATITIS B SURFACE [id number] 05:42:00 Test Item Value Reference Range Interpretation Comments HEPATITIS B SURFACE ANTIGEN (2) Nonreactive Nonreactive (BEAKER) (test code = 2585) HEPATITIS B CORE ANTIBODY, [id number] 05:42:00 Test Item Value Reference Range Interpretation Comments HEPATITIS B CORE IGM ANTIBODY Nonreactive Nonreactive (BEAKER) (test code = 645) CBC W/PLT COUNT & AUTO [id number] 04:56:00 Test Item Value Reference Range Interpretation [...] (test code = 2801) U/S, RENAL WITH [id number] 16:28:00Reason for exam:->hypertensionFINAL REPORT INDICATION: 57-year-old inpatient [...] MDReport Verified Date/Time: 05/11/2018 16:28:02 Reading Location: [address] Ultrasound Reading Room U/S, ABDOMINAL, [id number] 16:15:00Abdomen limited area? Add comment if clarification [...] MDReport Verified Date/Time: 05/11/2018 16:15:41 Reading Location: [facility] P006J Ultrasound Reading Room CTA, CHEST, ABDOMEN - PELVIS, FOR [id number] 14:11:00Reason for exam:->Chest painAddendum BeginsREPORT STATUS:A Addendum: I agree with the previously described non vascular findings. Signed: Antionette Hinojosa MDReport Verified Date/Time: 05/11/2018 14:11:09 Reading Location: [facility] P048 Angio Body Reading RoomAddendum EndsFINAL [...] coronary artery calcification is seen in the [place]. Patient is post coronary artery [...] thoracic aorta. In the abdominal aorta, circumferential uwgy-oi-yucqvfgt calcific atherosclerosis is seen. Overall, no ectasia [...] An addendum will be dictated by the Sales Representative Cash Registers Radiologist regarding the nonvascular findings. Signed: Magno Augustin MDReport Verified Date/Time: 05/10/2018 18:58:16 Reading Location: [place] [address] Cardiology MRI CALCIUM, [id number] 05:20:00 Test Item Value Reference Range Interpretation Comments CALCIUM IONIZED (BEAKER) (test 1.16 mmol/L 1.12-1.27 code = 698) PH, BLOOD (BEAKER) (test code = 7.40 1810) [id number] 04:29:00 Test Item Value Reference Range Interpretation Comments PHOSPHORUS (BEAKER) (test code = 3.5 mg/dL 2.3-4.7 604) [id number] 04:29:00 Test Item Value Reference Range Interpretation Comments MAGNESIUM (BEAKER) (test code = 2.4 mg/dL 1.6-2.6 627) COMPREHENSIVE METABOLIC [id number] 04:29:00 Test Item Value Reference Range Interpretation [...] PATIEN TS. CBC W/PLT COUNT & AUTO [id number] 03:58:00 Test Item Value Reference Range Interpretation [...] (BEAKER) (test code = 2801) U/S, RENAL, [id number] 13:00:00Reason for exam:->akiShould this be performed at [...] MDReport Verified Date/Time: 05/10/2018 13:00:32 Reading Location: [facility] P006J Ultrasound Reading Room CALCIUM, [id number] 06:58:00 Test Item Value Reference Range Interpretation Comments CALCIUM IONIZED (BEAKER) (test 1.08 mmol/L 1.12-1.27 L code = 698) PH, BLOOD (BEAKER) (test code = 7.35 1810) B-TYPE NATRIURETIC FACTOR (BNP)2018-05-10 05:49:00 Test Item Value Reference Range Interpretation Comments B-TYPE NATRIURETIC PEPTIDE (BEAKER) 153 pg/mL 0-100 H (test code = 700) [id number] 05:47:00 Test Item Value Reference Range Interpretation Comments MAGNESIUM (BEAKER) 2.4 mg/dL 1.6-2.6 Specimen slightly (test code = 627) hemolyzed [id number] 05:47:00 Test Item Value Reference Range Interpretation Comments PHOSPHORUS (BEAKER) 2.7 mg/dL 2.3-4.7 Specimen slightly (test code = 604) hemolyzed COMPREHENSIVE METABOLIC [id number] 05:47:00 Test Item Value Reference Range Interpretation [...] PATIEN TS. CBC W/PLT COUNT & AUTO [id number] 05:31:00 Test Item Value Reference Range Interpretation [...] (BEAKER) (test code = 2801) EOSINOPHIL SMEAR, [id number] 22:19:00 Test Item Value Reference Range Interpretation Comments EOSINOPHIL SMEAR, URINE (BEAKER) No EOS seen No EOS seen (test code = 1851) URINALYSIS W/ [id number] 22:13:00 Test Item Value Reference Range Interpretation [...] SOURCE(BEAKER) (test code = 2795) SODIUM, RANDOM [id number] 21:38:00 Test Item Value Reference Range Interpretation Comments SODIUM URINE (BEAKER) (test code = < meq/L 243) Reference Range: No NormalsPROTEIN, RANDOM [id number] 21:38:00 Test Item Value Reference Range Interpretation Comments PROTEIN, URINE (BEAKER) (test code = 15 mg/dL 0-14 H 1569) CREATININE, RANDOM [id number] 21:38:00 Test Item Value Reference Range Interpretation Comments CREATININE URINE (BEAKER) (test 173.4 mg/dL code = 375) Reference Range: No NormalsRAD, FOOT, 2 VIEWS, [id number] 13:59:00Reason for exam:->Pain and swelling of left foot after fall.FINAL REPORT Two views left foot Discussion: There is hallux valgus with degen erative changes. No visible acute fracture, dislocation, destructive lesion. Soft tissues are unremarkable. Signed: Darren Ariza Verified Date/Time: 05/09/2018 13:59:01 Reading Location: [address] Consult Reading Room [facility], [facility], [id number] 12:03:00FINAL REPORT PROCEDURE: V/Q LUNG SCAN CPT CODE: 89252 INDICATION: Acute chest pain, PE suspected, dyspnea, [...] Leticia Pimentel Verified Date/Time: 05/09/2018 12:03:05 ReadingLocation: [address] [address] [facility] Med Reading Room FL, ESOPH, SWALLOW FUNCTION, WITH CINE OR [id number] 11:00:00Reason for exam:->chest painFINAL REPORT Esophagram History: [...] Verified Date/Time: 0 05/09/2018 11:00:37 Reading Location: [facility] C013X Ortho Consult Reading Room HEMOGLOBIN [id number] 10:45:00 Test Item Value Reference Range Interpretation Comments HEMOGLOBIN A1C (BEAKER) (test code = 6.3 % 4.3-6.1 H 368) BASIC METABOLIC [id number] 08:43:00 Test Item Value Reference Range Interpretation [...] FOR DIALYSIS PATIEN TS. Re-draw per labLIPID [id number] 08:42:00 Test Item Value Reference Range Interpretation [...] Borderline 130-159 High 160-189 Very High >=190LITHIUM [id number] 08:31:00 Test Item Value Reference Range Interpretation Comments LITHIUM LEVEL (BEAKER) (test code 0.4 mmol/L 0.8-1.2 L = 630) RAPID DRUG SCREEN, [id number] 07:54:00 Test Item Value Reference Range Interpretation [...] situations. Chain of custody not maintained. Some xvin-gnd-fdlddvf medications, as well as adulterants, may cause inaccurate results. Clinical correlation should be applied. A more comprehensive drug screen or confirmation of a detected drug may be performed upon request. CREATINE KINASE (CK), TOTAL AND [id number] 07:47:00 Test Item Value Reference Range Interpretation Comments CREATINE KINASE TOTAL (BEAKER) 161 U/L 29-200 (test code = 380) CREATINE KINASE-MB (BEAKER) (test 4.9 ng/mL 0.0-6.6 code = 750) CREATINE KINASE-MB INDEX (BEAKER) 3.0 % (test code = 395) CK-MB Reference Range:<6.7 Normal6.7-10.0 Borderline>10.0 AbnormalTROPONIN [id number] 07:47:00 Test Item Value Reference Range Interpretation [...] acute neurological disease, and persistent tachyarrhythmia.BASIC METABOLIC [id number] 04:56:00 Test Item Value Reference Range Interpretation [...] (test code = 413) CT, BRAIN, WITHOUT [id number] 21:00:00FINAL REPORT CT, BRAIN, WITHOUT CONTRAST INDICATION: [...] MDReport Verified Date/Time: 05/08/2018 21:00:20 Reading Location: [address] Reading Room B-TYPE NATRIURETIC FACTOR (BNP)2018-05-08 19:03:00 Test Item Value Reference Range Interpretation Comments B-TYPE NATRIURETIC PEPTIDE (BEAKER) 254 pg/mL 0-100 H (test code = 700) CREATINE KINASE (CK), TOTAL AND [id number] 19:02:00 Test Item Value Reference Range Interpretation Comments CREATINE KINASE TOTAL (BEAKER) 150 U/L 29-200 (test code = 380) CREATINE KINASE-MB (BEAKER) (test 5.5 ng/mL 0.0-6.6 code = 750) CREATINE KINASE-MB INDEX (BEAKER) 3.7 % (test code = 395) CK-MB Reference Range:<6.7 Normal6.7-10.0 Borderline>10.0 AbnormalTROPONIN [id number] 19:02:00 Test Item Value Reference Range Interpretation [...] acute neurological disease, and persistent tachyarrhythmia.BASIC METABOLIC [id number] 18:32:00 Test Item Value Reference Range Interpretation [...] PATIEN TS. CBC W/PLT COUNT & AUTO [id number] 18:28:00 Test Item Value Reference Range Interpretation [...] 0-1 PERCENT (BEAKER) (test code = 2801) [id number] 18:15:00 Test Item Value Reference Range Interpretation Comments PARTIAL THROMBOPLASTIN TIME 30.0 seconds 22.5-36.0 (BEAKER) (test code = 760) Prior to initiating heparinXR Fluoroscopy in Imaging per [id number] 12:25:17 Patient: ALHAJI FARAH Date/Time04/05/2018 11:30 CDTReason for Examlumbar laminectomyReportEXAM: FLUOROSCOPIC GUIDANCECLINICAL HISTORY: lumbar laminectomyTECHNIQUE: Fluoroscopic guidance was provided for spinal procedure.FINDINGS:Fluoroscopic guidance was provided for spinal procedure.Fluoroscopy time: Less than 5 minutesIMPRESSION: Fluoroscopic guidance was provided for spinal procedure.LOCATION: R16 Final Dictated by: MD Kirkland Melanie CDictated DT/TM: 04/05/2018 12:24 pmSigned by: MD Marita, Susanne CSigned (Electronic Signature): 04/05/2018 12:25 pm
--- OUTSIDE RECORDS SUMMARY | 2020-09-09 19:58 | XMS REPORT ---
[...] Problem Atherosclerotic heart disease of I25.10 Active [place] coronary artery without angina pectoris Problem Constipation, unspecified K59.00 Ac tive constipation type Problem Lumbar degenerative disc disease M51.36 Active Medications Medication Code Code Instructions Start End Status Dosage System Date Date Hydrochlorothiazide [facility] 69454568128 25 MG Orally Act alberto 1 tablet Once a day in the morning Losartan Potassium ND 17199548246 25 MG Orally Acti ve 1 tablet Once a day Carvedilol ND 45411127370 25 MG Orally Active as directed Ranolazine ER ND 57246200278 500 MG Orally Active 2 tablet Twice a day Ipratropium [place] ND 13587701123 0.02 % May Active as Inhalation 1 14, directed vial Three 2019 times a day Albuterol Sulfate ND 61120267915 (2.5 MG/3ML) May Activ e inhale 1 0.083% 14, vial by 2019 mouth via nebulizer 3 times a day Lactulose ND 51652459674 20 GM/30ML Active 30 ml Orally Once a day Amiodarone HCl ND 89417098994 200 MG Orally Active 1 tablet Once a day -81 ND 64428546138 81 MG Orally Active 1 tabl et Once a day Amlodipine Besylate ND 49922449188 10 MG Orally Oct Act alberto 1 tablet Once a day 2017 [place] Carbonate ND 67289397206 600 MG Orally Acti ve 1 capsule Once a day at bedtime Gabapentin ND 09351535828 600 MG Orally Active 1 t ablet three times a day Lorazepam ND 69509502132 0.5 MG Orally Inactive 1 t ablet Once a day prn as needed anxiety /panic attacks [place] Carbonate [facility] 53825374247 600 MG Active TA KE 1 CAPSULE BY MOUTH DAILY AT BEDTIME Dulera [facility] 12935241354 100-5 MCG/ACT Active 2 puff s Inhalation Twice a day Clonidine HCl ND 80784472890 0.2 MG Orally March Active 1 tablet twice a day 27, twice x 1 2017 week then 1 tablet [place] [facility] 60954901061 10-325 MG Active 1 tablet Orally every 6 as needed hrs Lisinopril ND 27558034265 20 MG Orally Active 1 ta blet Once a day Zofran ND 89614308723 4 MG Orally December Active as neede d every 8hrs prn 19, for nause a nausea 2019 Citalopram ND 29339559272 20 MG Orally Active 1 ta blet Hydrobromide Once a day HydrALAZINE HCl ND 11776724093 25 MG Orally Active 1 tablet every 12 hrs with food Isosorbide ND 66514616934 30 MG Orally Active 1 ta blet Mononitrate ER Once a day in the morning Atorvastatin Calcium ND 58671425049 20 MG Orally Ac tive 1 tablet Once a day Amitriptyline HCl [facility] 45854536373 50 MG Orally Activ e 1 tablet Once a day Results No Known Results Summary Purpose eClinicalWorks Submission
[2020-09-09 21:07] LABS: ALT/SGPT 24 U/L (12-78); AST/SGOT 19 U/L (15-37); Alkaline Phosphatase 70 U/L (45-117); BUN Blood Urea Nitrogen 20 mg/dL (7-18); Bicarbonate 26 mmol/L (21-32); Bilirubin Direct < 0.1 mg/dL (0-0.2); Bilirubin Total 0.3 mg/dL (0.2-1.0); Glucose Level 135 mg/dL (74-106); Lipase 141 U/L (73-393); Magnesium 2.5 mg/dL (1.8-2.4); NT PRO-BNP 2289 pg/mL (<125); Potassium 4.1 mmol/L (3.5-5.1); Protein, Total 8.5 g/dL (6.4-8.2); Sodium Level 140 mmol/L (136-145); Troponin (Emerg Dept Use Only) 0.02 ng/mL (0.0-0.045)
[2020-09-09 21:07] LABS: Barbiturates NEGATIVE (NEGATIVE); Benzodiazepines NEGATIVE (NEGATIVE); Cocaine NEGATIVE (NEGATIVE); METHAMPHETAM NEGATIVE (NEGATIVE); Methadone NEGATIVE (NEGATIVE); Opiates POSITIVE (NEGATIVE); Phencyclidine NEGATIVE (NEGATIVE); THC Cannibis NEGATIVE (NEGATIVE)
[2020-09-09] MEDS ORDERED: HYDROMORPHONE HCL 1 MG/ML INJ ONE ×2 (21:13→22:27)
[2020-09-09] MEDS ORDERED: carvediloL 6.25 MG TAB ONE (21:13)
[2020-09-09] MEDS ORDERED: AMLODIPINE 10 MG TAB ONE (21:14)
[2020-09-09] MEDS ORDERED: ONDANSETRON 4 MG/2 ML VIAL ONE ×2 (21:14→22:27)
[2020-09-09 21:23] LABS: Absolute Lymphocytes (CBC) 1.7 K/uL (0.7-4.9); Basophils % 0.7 % (0-1.3); Hematocrit 44.5 % (39.6-49.0); MPV 10.2 fL (7.6-11.3); RBC Red Blood Cell Count 4.92 M/uL (4.33-5.43)
[2020-09-09 21:24] LABS: Protime INR 1.08
[2020-09-09] MEDS ORDERED: ISOSORBIDE MONO SR 60 MG TAB PO ONE (21:26)
[2020-09-09 21:27] LABS: Urine Blood NEGATIVE (NEG); Urine Glucose TRACE (NEG); Urine Protein NEGATIVE (NEG)
--- NOTE | 2020-09-09 21:36 | RAD REPORT ---
EXAM DESCRIPTION: RAD - Chest Single View - 09/09/2020 9:27 pm CLINICAL HISTORY: COUGH Chest pain. COMPARISON: Chest Single View dated 09/04/2020; Chest Single View dated 06/14/2020; Chest Single View dated 05/19/2020; Chest Single View dated 03/29/2020; Chest Abdomen Pelvis W Cont dated 09/04/2020 FINDINGS: Portable technique limits examination quality. The lungs are grossly clear. The heart is normal in size. No displaced fractures.Sternotomy wires are noted. IMPRESSION: No acute intrathoracic process suspected.
--- NOTE | 2020-09-09 21:56 | ER ---
Nurse's Notes [facility] Name: Blayne Macias Age: 59 yrs Sex: Male : 1960 Arrival Date: 09/09/2020 Time: 19:54 Bed 19 Private MD: Diagnosis: Chest pain, unspecified;Essential (primary) hypertension Presentation: 09/09 19:54 Chief complaint: EMS states: was toned for chest pain radiating to the left and right arm, nausea and vomiting that started 4 hours ago. EMS states Pt was just admitted here a few days ago for the same complaint. Coronavirus screen: Client denies travel out of the [place] in the last 14 days. At this time, the client does not indicate any symptoms associated with coronavirus-19. Ebola Screen: Patient negative for fever greater than or equal to 101.5 degrees Fahrenheit, and additional compatible Ebola Virus Disease symptoms Patient denies exposure to infectious person. Initial Sepsis Screen: Does the patient meet any 2 criteria? No. Patient's initial sepsis screen is negative. Does the patient have a suspected source of infection? No. Patient's initial sepsis screen is negative. Risk Assessment: Do you want to hurt yourself or someone else? Patient reports no desire to harm self or others. Onset of symptoms was September 09, 2020. 19:54 Method Of Arrival: EMS: [facility] 19:54 Acuity: SENTHIL 3 Historical: - Allergies: 19:57 Codeine; 19:57 PENICILLINS; - PMHx: 19:57 "electrical stimulator"; Atrial Fib; Back pain; Bipolar disorder; CAD; CHF; chronic wh back pain; Cirrhosis; COPD; Hepatitis; High Cholesterol; Hypertension; Pneumonia; - PSHx: 19:57 Cholecystectomy; - Immunization history:: Adult Immunizations unknown. - Social history:: Smoking status: Patient reports the use of cigarette tobacco products, denies chronic smoking, but will smoke occasionally, Patient/guardian denies using alcohol, street drugs. - Family history:: not pertinent. Screenin:57 Abuse screen: Denies threats or abuse. Denies injuries from another. Nutritional screening: No deficits noted. Tuberculosis screening: No symptoms or risk factors identified. Fall Risk None identified. Assessment: 20:15 General: Appears in no apparent distress. uncomfortable, Behavior is calm, cooperative, wh appropriate for age. Pain: Complains of pain in chest Pain radiates to left arm Pain currently is 8 out of 10 on a pain scale. Quality of pain is described as sharp, Pain began 4 hours ago. Is intermittent. Neuro: Level of Consciousness is awake, alert, obeys commands, Oriented to person, place, time, situation, Appropriate for age. Cardiovascular: Heart tones S1 S2. Respiratory: Airway is patent Respiratory effort is even, unlabored, Respiratory pattern is regular, symmetrical, Breath sounds are clear bilaterally. GI: Abdomen is flat, non-distended. : No signs and/or symptoms were reported regarding the genitourinary system. EENT: No signs and/or symptoms were reported regarding the EENT system. Derm: Skin is intact, is healthy with good turgor, Skin is pink, warm \\T\\ dry. normal. Musculoskeletal: Circulation, motion, and sensation intact. 21:45 Reassessment: Patient appears in no apparent distress at this time. No changes from previously documented assessment. Patient and/or family updated on plan of care and expected duration. Pain level reassessed. Patient is alert, oriented x 3, equal unlabored respirations, skin warm/dry/pink. 23:00 Reassessment: Patient appears in no apparent distress at this time. Patient and/or family updated on plan of care and expected duration. Pain level reassessed. Patient is alert, oriented x 3, equal unlabored respirations, skin warm/dry/pink. Patient states feeling better. Patient states symptoms have improved. Vital Signs: 19:54 BP 237 / 111; Resp 18; Temp 97.8; Weight 68.04 kg; Height 5 ft. 9 in. (175.26 cm); Pain 8/10; 20:45 BP 234 / 118; Pulse 69; Resp 20; Pulse Ox 100% on R/A; wh 21:15 BP 236 / 116; Pulse 70; Resp 16; Pulse Ox 99% on R/A; wh 21:30 BP 199 / 109; Pulse 74; Resp 18; Pulse Ox 99% on R/A; wh 21:45 BP 215 / 119; Pulse 68; Resp 18; Pulse Ox 98% on R/A; wh 22:00 BP 215 / 123; Pulse 70; Resp 18; Pulse Ox 98% on R/A; wh 22:15 BP 166 / 106; Pulse 67; Resp 18; Pulse Ox 98% on R/A; wh 22:30 BP 126 / 83; Pulse 72; Resp 16; Pulse Ox 99% on R/A; wh 22:45 BP 111 / 73; Pulse 69; Resp 16; Pulse Ox 96% on R/A; wh 23:00 BP 115 / 77; Pulse 68; Resp 18; Pulse Ox 98% on R/A; 19:54 Body Mass Index 22.15 (68.04 kg, 175.26 cm) ED Course: 19:54 Patient arrived in ED. ds1 19:54 Lilly Nino is Primary Nurse. 19:56 Triage completed. 19:58 Michael Estrada MD is Attending Physician. berta 20:15 Arm band placed on right wrist. wh 20:15 Patient has correct armband on for positive identification. Placed in gown. Bed in low wh position. Call light in reach. Side rails up X 1. monitor car operator on. Pulse ox on. NIBP on. 20:15 EKG done, by ED staff, reviewed by Michael Estrada MD. 20:48 Cheikh with outside lab called to notify that the purple and blue top labs are mt hemolyzed. 21:00 Lab(s) recollected, by me, sent to lab. Inserted saline lock: 20 gauge in left forearm, jp3 using aseptic technique. Blood collected. 21:27 XRAY Chest (1 view) In Process Unspecified. EDMS 21:53 Theodore Bridges is Hospitalizing Provider. [facility] 23:11 No provider procedures requiring assistance completed. Patient admitted, IV remains in place. Administered Medications: 21:10 Drug: Dilaudid 1 mg {Note: RASS 0.} Route: IVP; Site: left forearm; 23:26 Follow up: Response: No adverse reaction; Pain is decreased; RASS: Alert and Calm (0) 21:11 Drug: Norvasc 10 mg Route: PO; 23:25 Follow up: Response: No adverse reaction 21:11 Drug: Coreg 25 mg Route: PO; 23:25 Follow up: Response: No adverse reaction 21:12 Drug: Zofran (Ondansetron) 4 mg Route: IVP; Site: left forearm; 23:25 Follow up: Response: No adverse reaction 21:32 Drug: Isosorbide Mononitrate 60 mg Route: PO; 23:24 Follow up: Response: No adverse reaction 22:05 Drug: hydrALAZINE 10 mg Route: IV; Rate: per protocol; Site: right forearm; 23:24 Follow up: Response: No adverse reaction; Blood pressure is lowered; IV Status: wh Completed infusion 22:05 Drug: HydrALAZINE 50 mg Route: PO; 23:24 Follow up: Response: No adverse reaction; Blood pressure is lowered 22:18 Drug: Dilaudid 1 mg {Note: RASS 0.} Route: IVP; Site: left forearm; 23:24 Follow up: Response: No adverse reaction; Pain is decreased; RASS: Alert and Calm (0) 22:19 Drug: Lovenox 70 mg Route: Sub-Q; Site: left lower abdomen; 23:24 Follow up: Response: No adverse reaction 22:20 Not Given (Hemodynamic Parameters): hydrALAZINE 20 mg IV at per protocol once; in 10 minutes after the 10 mg dose if sys greater 200 22:20 Drug: Zofran (Ondansetron) 4 mg Route: IVP; Site: left forearm; 23:24 Follow up: Response: No adverse reaction; Nausea is decreased Outcome: 21:56 Decision to Hospitalize by Provider. berta 23:12 Admitted to Med/surg accompanied by tech, via wheelchair, room 212, with chart, Report wh called to Liam Aviles RN 23:12 Condition: stable 23:12 Instructed on the need for admit. 23:25 Patient left the ED. dm5 Signatures: Dispatcher [employer] Maira Tay, RN RN dm5 Michael Estrada MD MD cha [place], Yamilex ds1 Nolberto, Lilly Burnette mt Shane Loyola jp3
--- NOTE | 2020-09-09 21:56 | EDPHYS ---
Physician Documentation [facility] Name: Blayne Macias Age: 59 yrs Sex: Male : 1960 Arrival Date: 09/09/2020 Time: 19:54 Bed 19 Private MD: ED Physician Michael Estrada HPI: 09/09 21:41 This 59 yrs old Male presents to ER via EMS with complaints of chest pain and berta htn. 21:41 The patient or guardian reports chest pain that is located primarily in the substernal berta area. Onset: 2 day(s) ago. cp and htn , not filled new meds. The pain does not radiate. Onset: The symptoms/episode began/occurred 1 day(s) ago. Associated signs and symptoms: The patient has no apparent associated signs or symptoms. The chest pain is described as dull. Modifying factors: The symptoms are alleviated by nothing. the symptoms are aggravated by nothing. Severity of pain: At its worst the pain was mild moderate in the emergency department the pain is unchanged. Historical: - Allergies: 19:57 Codeine; wh 19:57 PENICILLINS; wh - PMHx: 19:57 "electrical stimulator"; Atrial Fib; Back pain; Bipolar disorder; CAD; CHF; chronic wh back pain; Cirrhosis; COPD; Hepatitis; High Cholesterol; Hypertension; Pneumonia; - PSHx: 19:57 Cholecystectomy; wh - Immunization history:: Adult Immunizations unknown. - Social history:: Smoking status: Patient reports the use of cigarette tobacco products, denies chronic smoking, but will smoke occasionally, Patient/guardian denies using alcohol, street drugs. - Family history:: not pertinent. ROS: 21:41 Constitutional: Negative for fever, chills, and weight loss, Eyes: Negative for injury, berta pain, redness, and discharge, ENT: Negative for injury, pain, and discharge, Neck: Negative for injury, pain, and swelling, Respiratory: Negative for shortness of breath, cough, wheezing, and pleuritic chest pain, Abdomen/GI: Negative for abdominal pain, nausea, vomiting, diarrhea, and constipation, Back: Negative for injury and pain, : Negative for injury, bleeding, discharge, and swelling, MS/Extremity: Negative for injury and deformity, Skin: Negative for injury, rash, and discoloration, Neuro: Negative for headache, weakness, numbness, tingling, and seizure, Psych: Negative for depression, anxiety, suicide ideation, homicidal ideation, and hallucinations, Allergy/Immunology: Negative for hives, rash, and allergies, Endocrine: Negative for neck swelling, polydipsia, polyuria, polyphagia, and marked weight changes, Hematologic/Lymphatic: Negative for swollen nodes, abnormal bleeding, and unusual bruising. 21:41 Cardiovascular: Positive for chest pain. Exam: 21:41 Constitutional: This is a well developed, well nourished patient who is awake, alert, berta and in no acute distress. Head/Face: Normocephalic, atraumatic. Eyes: Pupils equal round and reactive to light, extra-ocular motions intact. Lids and lashes normal. Conjunctiva and sclera are non-icteric and not injected. Cornea within normal limits. Periorbital areas with no swelling, redness, or edema. ENT: Nares patent. No nasal discharge, no septal abnormalities noted. Tympanic membranes are normal and external auditory canals are clear. Oropharynx with no redness, swelling, or masses, exudates, or evidence of obstruction, uvula midline. Mucous membranes moist. Neck: Trachea midline, no thyromegaly or masses palpated, and no cervical lymphadenopathy. Supple, full range of motion without nuchal rigidity, or vertebral point tenderness. No Meningismus. Chest/axilla: Normal chest wall appearance and motion. Nontender with no deformity. No lesions are appreciated. Cardiovascular: Regular rate and rhythm with a normal S1 and S2. No gallops, murmurs, or rubs. Normal PMI, no JVD. No pulse deficits. Respiratory: Lungs have equal breath sounds bilaterally, clear to auscultation and percussion. No rales, rhonchi or wheezes noted. No increased work of breathing, no retractions or nasal flaring. Abdomen/GI: Soft, non-tender, with normal bowel sounds. No distension or tympany. No guarding or rebound. No evidence of tenderness throughout. Back: No spinal tenderness. No costovertebral tenderness. Full range of motion. Male : Normal genitalia with no discharge or lesions. Skin: Warm, dry with normal turgor. Normal color with no rashes, no lesions, and no evidence of cellulitis. MS/ Extremity: Pulses equal, no cyanosis. Neurovascular intact. Full, normal range of motion. Neuro: Awake and alert, GCS 15, oriented to person, place, time, and situation. Cranial nerves II-XII grossly intact. Motor strength 5/5 in all extremities. Sensory grossly intact. Cerebellar exam normal. Normal gait. Psych: Awake, alert, with orientation to person, place and time. Behavior, mood, and affect are within normal limits. 21:41 Musculoskeletal/extremity: DVT Exam: No signs of deep vein thrombosis. no pain, no swelling, no tenderness, negative Homans' sign noted on exam, no appreciated bluish discoloration, no erythema, no increased warmth. 21:52 ECG was reviewed by the Attending Physician. [facility] Vital Signs: 19:54 BP 237 / 111; Resp 18; Temp 97.8; Weight 68.04 kg; Height 5 ft. 9 in. (175.26 cm); Pain wh 8/10; 20:45 BP 234 / 118; Pulse 69; Resp 20; Pulse Ox 100% on R/A; wh 21:15 BP 236 / 116; Pulse 70; Resp 16; Pulse Ox 99% on R/A; wh 21:30 BP 199 / 109; Pulse 74; Resp 18; Pulse Ox 99% on R/A; wh 21:45 BP 215 / 119; Pulse 68; Resp 18; Pulse Ox 98% on R/A; wh 22:00 BP 215 / 123; Pulse 70; Resp 18; Pulse Ox 98% on R/A; 22:15 BP 166 / 106; Pulse 67; Resp 18; Pulse Ox 98% on R/A; 22:30 BP 126 / 83; Pulse 72; Resp 16; Pulse Ox 99% on R/A; wh 22:45 BP 111 / 73; Pulse 69; Resp 16; Pulse Ox 96% on R/A; wh 23:00 BP 115 / 77; Pulse 68; Resp 18; Pulse Ox 98% on R/A; 19:54 Body Mass Index 22.15 (68.04 kg, 175.26 cm) MDM: 19:58 Patient medically screened. berta 21:49 Differential diagnosis: abnormal EKG, acute myocardial infarction, acute pericarditis, ebrta anxiety, coronary artery disease chest wall pain, congestive heart failure esophagitis, hiatal hernia, pancreatitis, peptic ulcer disease, pulmonary embolus, unstable angina. HEART Score: History: Highly Suspicious (2), ECG: Non specific repolarization disturbance / LBTB / PM (1), Age: > 45 and < 65 years (1), Risk Factors: > or = 3 Risk factors for atherosclerotic disease (2), [Hypercholesterolemia] [Hypertension] [Active Smoker] [+ Family HX] Troponin: < or = 1 x Normal Limit (0). The patient was given aspirin in the Emergency Department. The patient's deep vein thrombosis risk score was calculated as follows: Total Score: 0. This patient was found to be at low risk for a deep vein thrombosis by using the Well's assessment criteria. The patient's pulmonary embolism risk score was calculated as follows: Total Score: 0-2 points. This patient was found to be at low risk for a pulmonary embolism by using the Well's assessment criteria. AVE Risk Score: 1 - Three or more CAD risk factors, 1- Known CAD, 1 - ASA use in past 7 days, 1 - Recent [<24hrs] Severe Angina, TOTAL SCORE = 4. Data reviewed: vital signs, nurses notes, lab test result(s), EKG, radiologic studies. Data interpreted: quality assurance monitor chassis: rate is 67 beats/min, rhythm is regular, Pulse oximetry: on room air is 96 %. Test interpretation: by ED physician or midlevel provider: ECG, plain radiologic studies. 22:10 ED course: asprin and plavix taken at home this morning. [facility] 09/09 20:08 Order name: Basic Metabolic Panel; Complete Time: 21:45 [facility] 09/09 20:08 Order name: CBC with Diff; Complete Time: 21:45 [facility] 09/09 20:08 Order name: LFT's; Complete Time: 21:45 [facility] 09/09 20:08 Order name: Magnesium; Complete Time: 21:45 [facility] 09/09 20:08 Order name: NT PRO-BNP; Complete Time: 21:45 [facility] 09/09 20:08 Order name: PT-INR; Complete Time: 21:45 [facility] 09/09 20:08 Order name: Troponin (emerg Dept Use Only); Complete Time: 21:45 [facility] 09/09 20:08 Order name: XRAY Chest (1 view); Complete Time: 21:45 [facility] 09/09 20:08 Order name: UDS; Complete Time: 21:45 [facility] 09/09 20:08 Order name: Lipase; Complete Time: 21:45 [facility] 09/09 20:31 Order name: Shipman; Complete Time: 22:08 [facility] 09/09 20:36 Order name: Urine Dipstick--Ancillary (enter results); Complete Time: 21:45 wi 09/09 20:08 Order name: EKG; Complete Time: 20:10 [facility] 09/09 20:08 Order name: Cardiac monitoring; Complete Time: 20:46 [facility] 09/09 20:08 Order name: EKG - Nurse/Tech; Complete Time: 20:46 [facility] 09/09 20:08 Order name: IV Saline Lock; Complete Time: 21:04 [facility] 09/09 20:08 Order name: Labs collected and sent; Complete Time: 20:46 [facility] 09/09 20:08 Order name: O2 Per Protocol; Complete Time: 20:46 [facility] 09/09 21:45 Order name: EKG; Complete Time: 21:46 [facility] 09/09 20:08 Order name: O2 Sat Monitoring; Complete Time: 20:46 [facility] 09/09 20:08 Order name: Urine Dipstick-Ancillary (obtain specimen); Complete Time: 20:46 [facility] 09/09 20:48 Order name: Labs - recollect needed; Complete Time: 21:04 wi 09/09 21:45 Order name: EKG - Nurse/Tech; Complete Time: 22:20 [facility] EC:52 Rate is 67 beats/min. Rhythm is regular. QRS [place] is Normal. [place] interval is normal. QRS berta interval is normal. QT interval is prolonged at 521 msec. No Q waves. T waves are Normal. No ST changes noted. Clinical impression: NSR w/ Non-specific ST/T Changes. Interpreted by me. Reviewed by me. Administered Medications: 21:10 Drug: Dilaudid 1 mg {Note: RASS 0.} Route: IVP; Site: left forearm; 23:26 Follow up: Response: No adverse reaction; Pain is decreased; RASS: Alert and Calm (0) 21:11 Drug: Norvasc 10 mg Route: PO; 23:25 Follow up: Response: No adverse reaction 21:11 Drug: Coreg 25 mg Route: PO; 23:25 Follow up: Response: No adverse reaction 21:12 Drug: Zofran (Ondansetron) 4 mg Route: IVP; Site: left forearm; 23:25 Follow up: Response: No adverse reaction 21:32 Drug: Isosorbide Mononitrate 60 mg Route: PO; 23:24 Follow up: Response: No adverse reaction 22:05 Drug: hydrALAZINE 10 mg Route: IV; Rate: per protocol; Site: right forearm; 23:24 Follow up: Response: No adverse reaction; Blood pressure is lowered; IV Status: wh Completed infusion 22:05 Drug: HydrALAZINE 50 mg Route: PO; 23:24 Follow up: Response: No adverse reaction; Blood pressure is lowered 22:18 Drug: Dilaudid 1 mg {Note: RASS 0.} Route: IVP; Site: left forearm; 23:24 Follow up: Response: No adverse reaction; Pain is decreased; RASS: Alert and Calm (0) 22:19 Drug: Lovenox 70 mg Route: Sub-Q; Site: left lower abdomen; 23:24 Follow up: Response: No adverse reaction 22:20 Not Given (Hemodynamic Parameters): hydrALAZINE 20 mg IV at per protocol once; in 10 minutes after the 10 mg dose if sys greater 200 22:20 Drug: Zofran (Ondansetron) 4 mg Route: IVP; Site: left forearm; 23:24 Follow up: Response: No adverse reaction; Nausea is decreased Disposition: 09/09/20 21:56 Hospitalization ordered by Theodore Bridges for Observation. Preliminary diagnosis are Chest pain, unspecified, Essential (primary) hypertension. - Bed requested for Telemetry/MedSurg (observation). - Status is Observation. dm5 - Condition is Stable. - Problem is an acute exacerbation. - Symptoms have improved. Signatures: Dispatcher [employer] EDMaira Giles RN RN dm5 Michael Estrada MD MD cha Attema, Lee, FEATHER WASHER-C FEATHER WASHER-Cla1 Precious Sandoval RN RN Amena Arvizu wi Lilly Nino Corrections: (The following items were deleted from the chart) 22:53 21:56 Hospitalization Ordered by Theodore Bridges for Observation. Preliminary diagnosis cg is Chest pain, unspecified; Essential (primary) hypertension. Bed requested for Telemetry/MedSurg (observation). Status is Observation. Condition is Stable. Problem is an acute exacerbation. Symptoms have improved. berta 23:25 22:53 09/09/2020 21:56 Hospitalization Ordered by Theodore Bridges for Observation. dm5 Preliminary diagnosis is Chest pain, unspecified; Essential (primary) hypertension. Bed requested for Telemetry/MedSurg (observation). Status is Observation. Condition is Stable. Problem is an acute exacerbation. Symptoms have improved. cg
[2020-09-09] MEDS ORDERED: HYDRALAZINE HCL 20 MG/ML VIAL ONE (22:06)
[2020-09-09] MEDS ORDERED: HYDRALAZINE HCL 10 MG TABLET ONE (22:06)
[2020-09-09] MEDS ORDERED: ENOXAPARIN 100 MG/ML SYR SQ ONE (22:27)
[2020-09-09] MEDS ORDERED: ONDANSETRON 4 MG/2 ML VIAL IV PRN (23:17)
[2020-09-09] MEDS ORDERED: ACETAMINOPHEN 500 MG TAB PO PRN (23:17)
--- NOTE | 2020-09-09 23:29 | P.HP ---
Certification for Inpatient Patient admitted to: Observation With expected LOS: <2 Midnights Patient will require the following post-hospital care: None Practitioner: I am a practitioner with admitting privileges, knowledge of patient current condition, hospital course, and medical plan of care. Services: Services provided to patient in accordance with Admission requirements found in Title 42 Section 412.3 of the Code of Federal Regulations <Gilberto Nevarez - Last Filed: 09/09/20 23:25> Patient History Date of Service: 09/09/20 Reason for admission: Chest pain History of Present Illness: 59-year-old male with history of uncontrolled primary hypertension, CAD with prior CABG, and atrial fibrillation, CKD 3, bipolar disorder, hyperlipidemia presents to the emergency department for hypertension and chest pain. Patient was discharged from this facility yesterday with adjustments made to his blood pressure medications after having similar complaint previously. Patient reports that he was unable to obtain his blood pressure medications from the pharmacy due to the pharmacy being closed on Wednesday in the not having a ride today. Initial blood pressure in the emergency department was 237/111. Patient complaining of left-sided chest pain radiating to left arm and left side of neck, pressure-like with associated nausea, shortness of breath, diaphoresis. Patient had stress test approximately 2 months ago and heart catheterization April 03 which showed a totally occluded proximal LAD with patent GONZALES i nsignificant disease prior to bypass patient had diffuse disease and mild disease involving the left circumflex and right RCA with patent SVG and RCA. During recent admission cardiology made recommendation for titration of blood pressure medications and he was discharged the further intervention. EKG in the emergency department shows ST elevation in 2 of the precordial leads which is similar to previous. Initial troponin negative, ED provider wishes to admit patient under observation for chest pain. When I saw the patient in the emergency department he was awake, alert, oriented x3. Patient is still complaining of pressure-like left-sided chest pain radiating to his shoulders, neck, arms. Blood pressure had improved after receiving oral medications. - Past Medical/Surgical History Diabetic: No -: Chronic back pain -: HTN -: CAD, CABG times 2 vessels in December 2015 -: COPD -: Exposure to asbestosis -: Bipolar disorder -: Hyperlipidemia -: Severe sleep apnea -: Chronic pain syndrome -: CHF -: afib -: pneumonia -: Right Leg surgery -: Back surgery -: Cholecystectomy -: Cardiac catheterization -: CABG- Double bypass 12/2015 -: Neck Surgery -: Cervical fusion -: L4-L5-S1 fusion Psychosocial/ Personal History: Single, Children-1, Work-Disabled due to back. - Family History Mother -: Cancer Father -: Heart disease, Cancer - Social History Smoking Status: Unknown if ever smoked Alcohol use: No CD- Drugs: No Caffeine use: No Place of Residence: Home <Gilberto Nevarez - Last Filed: 09/09/20 23:25> Date of Service: 09/10/20 <shayy crouch - Last Filed: 09/10/20 15:57> Allergies Penicillins Allergy (Intermediate, Verified 09/09/20 23:52) Hives/Rash codeine [From Tylenol-Codeine] Allergy (Verified 09/09/20 23:52) Itching morphine Allergy (Verified 09/09/20 23:51) Itching oxycodone Allergy (Verified 09/09/20 23:52) Itching Home Medications: Carvedilol [Coreg] 25 mg PO BID 09/09/20 Furosemide 20 mg PO DAILY 09/09/20 Hydralazine HCl [Apresoline] 50 mg PO TID 09/09/20 Isosorbide Mononitrate [Isosorbide Mononitrate ER] 60 mg PO DAILY 09/09/20 [place] Carbonate [Lithotabs 300MG] 600 mg PO BEDTIME 09/09/20 Losartan Potassium [Cozaar] 50 mg PO DAILY 09/09/20 Nicotine [Nicoderm] 1 patch TD DAILY 09/09/20 Amiodarone HCl 100 mg PO BID 09/10/20 Amlodipine Besylate [Norvasc] 10 mg PO DAILY 09/10/20 Aspirin [Aspirin EC 81 MG] 81 mg PO DAILY 09/10/20 Atorvastatin Calcium [Lipitor] 20 mg PO BEDTIME 09/10/20 Citalopram Hydrobromide [Celexa] 20 mg PO DAILY 09/10/20 Clopidogrel Bisulfate [Plavix] 75 mg PO DAILY 09/10/20 Ondansetron HCl [Zofran] 4 mg PO TID PRN 09/10/20 Pantoprazole Sodium [Protonix] 40 mg PO DAILY 09/10/20 Review of Systems 10-point ROS is otherwise unremarkable Respiratory: Shortness of Breath, SOB with Excertion Cardiovascular: Chest Pain Gastrointestinal: Nausea <Gilberto Nevarez - Last Filed: 09/09/20 23:25> Physical Examination - Physical Exam General: Alert, In no apparent distress HEENT: Atraumatic, PERRLA, Mucous membr. moist/pink Neck: Supple, 2+ carotid pulse no bruit, No LAD Respiratory: Clear to auscultation bilaterally, Normal air movement Cardiovascular: Regular rate/rhythm, Normal S1 S2 Gastrointestinal: Normal bowel sounds, No tenderness Musculoskeletal: No tenderness Integumentary: No rashes Neurological: Normal gait, Normal speech, Normal strength at 5/5 x4 extr, Normal tone, Normal affect - Studies Laboratory Data (last 24 hrs) 09/09/20 21:00: PT 12.7 H, INR 1.08 09/09/20 21:00: WBC 12.4 H D, Hgb 15.1, Hct 44.5, Plt Count 233 09/09/20 20:28: Sodium 140, Potassium 4.1, BUN 20 H, Creatinine 1.22, Glucose 135 H, Magnesium 2.5 H, Total Bilirubin 0.3, AST 19, ALT 24, Alkaline Phosphatase 70, Lipase 141 <Gilberto Nevarez - Last Filed: 09/09/20 23:25> - Studies Laboratory Data (last 24 hrs) 09/09/20 21:00: PT 12.7 H, INR 1.08 09/09/20 21:00: WBC 12.4 H D, Hgb 15.1, Hct 44.5, Plt Count 233 09/09/20 20:28: Sodium 140, Potassium 4.1, BUN 20 H, Creatinine 1.22, Glucose 135 H, Magnesium 2.5 H, Total Bilirubin 0.3, AST 19, ALT 24, Alkaline Phosphatase 70, Lipase 141 <shayy crouch - Last Filed: 09/10/20 15:57> Assessment and Plan - Plan Assessment Hypertensive emergency with chest pain-underlying primary hypertension with medical noncompliance Atrial fibrillation not on chronic anticoagulation therapy CAD with prior CABG CKD 3 Hyperlipidemia Bipolar disorder DJD with prior surgeries and chronic pain Plan Hypertensive emergency with chest pain-underlying primary hypertension with medical noncompliance: Continue home medications. Counseled patient on importance of taking prescribed hypertensive agents especially with his degree of heart disease. Blood pressure has improved significantly from admission with oral medication supplemented with IV hydralazine. DVT prophylaxis Lovenox 40 mg subcutaneous once daily. Patient can likely be discharged tomorrow. Atrial fibrillation not on chronic anticoagulation therapy: Monitor on telemetry CAD with prior CABG: Continue aspirin, Plavix, monitor on telemetry. CKD 3: Appears stable this time. Hyperlipidemia: Continue home meds Bipolar disorder: Continue home meds DJD with prior surgeries and chronic pain: Continue home meds Discharge Plan: Home Plan to discharge in: 24 Hours - Advance Directives Does patient have a Living Will: Yes Does patient have a Durable POA for Healthcare: Yes - Code Status/Comfort Care Code Status Assessed: Yes (Full code) Critical Care: No Time Spent Managing Pts Care (In Minutes): 55 <Gilberto Nevarez - Last Filed: 09/09/20 23:25> Physician Review: Patient Assessed, Agree with Above Assessment and Plan Physician Review Additional Text: Accelerated hypertension Chest pain Chronic pain syndrome. CAD Plan: Continue home antihypertensives. Continue home pain medications. Continue CAD medications. <shayy crouch - Last Filed: 09/10/20 15:57>
[2020-09-10 01:11] VITALS: BMI 21.4
[2020-09-10] MEDS: NICOTINE 21 MG/PAT TD SCH ×2 (01:19→09:00)
--- NOTE | 2020-09-10 05:59 | EKG ---
Test Date: 2020-09-09 Test Time: 21:54:48 License And Permit Specialist: MEASUREMENT RESULTS: Intervals: Rate: 68 IA: 166 QRSD: 104 QT: 484 QTc: 514 [place]: P: 72 IA: 166 QRS: 66 T: 77 INTERPRETIVE STATEMENTS: Normal sinus rhythm nstProlonged QT Abnormal ECG Compared to ECG 09/09/2020 20:04:03 No significant changes Electronically Signed On 09-10-20 05:58:56 LINEN MANAGER by Ghulam Berrios
[2020-09-10] MEDS ORDERED: carvediloL 25 MG TAB PO SCH (06:00)
--- NOTE | 2020-09-10 06:00 | EKG ---
Test Date: 2020-09-09 Test Time: 20:04:03 Parcel Post Truck Driver: MEASUREMENT RESULTS: Intervals: Rate: 67 WA: 168 QRSD: 104 QT: 494 QTc: 521 [place]: P: 74 WA: 168 QRS: 57 T: 87 INTERPRETIVE STATEMENTS: Normal sinus rhythm old as mi Abnormal ECG Compared to ECG 09/04/2020 19:30:28 Prolonged QT interval now present Sinus tachycardia no longer present Atrial premature complex(es) no longer present Left ventricular hypertrophy no longer present Early repolarization no longer present Myocardial infarct finding still present Electronically Signed On 09-10-20 05:59:32 TOASTER ELEMENT REPAIRER by Ghulam Berrios
[2020-09-10 08:48] VITALS: BP 110/65; TEMP 98.4
[2020-09-10 08:49] VITALS: O2SAT 95
[2020-09-10] MEDS ORDERED: MORPHINE *EXTENDED RELEASE* 15 MG TAB PO SCH (09:00)
[2020-09-10] MEDS ORDERED: CLOPIDOGREL 75 MG TABLET PO SCH (09:00)
[2020-09-10] MEDS ORDERED: HYDRALAZINE HCL 25 MG TABLET PO SCH (09:00)
[2020-09-10] MEDS ORDERED: LOSARTAN POTASSIUM 50 MG TABLET PO SCH (09:00)
[2020-09-10] MEDS ORDERED: INFLUENZA VACCINE (for 3y+) 0.5 ML DOSE IMVAC ONE (09:00)
[2020-09-10] MEDS ORDERED: ISOSORBIDE MONO SR 60 MG TAB PO SCH (09:00)
[2020-09-10] MEDS ORDERED: ASPIRIN EC 81 MG TAB PO SCH (09:00)
[2020-09-10] MEDS ORDERED: ENOXAPARIN 40 MG/0.4 ML SQ SCH (09:00)
[2020-09-10] MEDS ORDERED: AMIODARONE HCL 200 MG TAB PO SCH (09:00)
--- NOTE | 2020-09-10 15:09 | P.DS ---
Admission Date: 09/09/20 Discharge Date: 09/10/20 Disposition: AMA-LEFT AGAINST MEDICAL ADVIC Reason for Admission: Chest pain - Problems (1) Coronary artery disease Status: Acute (2) Chest pain Onset Date: 11/22/17 Status: Acute Qualifiers: Chest pain type: unspecified Qualified Code(s): R07.9 - Chest pain, unspecified (3) History of coronary artery bypass graft Status: Acute (4) Atrial fibrillation Onset Date: 10/13/16 Status: Chronic Qualifiers: (5) CAD (coronary artery disease) Onset Date: 01/20/16 Status: Chronic Qualifiers: (6) Chronic back pain Onset Date: 10/27/16 Status: Chronic Qualifiers: Back pain location: low back pain Back pain laterality: midline Sciatica presence: without sciatica Qualified Code(s): M54.5 - Low back pain; G89.29 - Other chronic pain (7) Chest pain Onset Date: 01/20/16 Status: Resolved Qualifiers: Brief History of Present Illness: 59-year-old gentleman with a history of coronary artery disease status post CABG, history of uncontrolled hypertension presented to the emergency department with a complaint of chest pain. His systolic blood pressure was as high as 237 on arrival. Patient was complaining of left-sided chest pain. He was just discharged from hospitalization for chest pain rule out. He has a history of recent stress test and recent cardiac catheterization. He is known to have diffuse CAD for which cardiology has recommended medical management. Patient was also seen hospitalized for further management. Hospital Course: His 1st set of troponin in the ED was negative. His home medications for chronic pain were resumed. Patient was actually seen in IV morphine for his chronic pain. He is high risk for aberrant opioid use. His blood pressure improved to normal with his home antihypertensives. Patient left AMA this morning. He left before I could get a chance to discuss his risk of leaving without medical treatment. Vital Signs/Physical Exam: Temp Pulse Resp BP Pulse Ox 98.4 F 61 16 110/65 98 09/10/20 08:00 09/10/20 08:00 09/10/20 08:00 09/10/20 08:00 09/10/20 08:00 Laboratory Data at Discharge: WBC Cancelled 09/10/20 05:00 Hgb Cancelled 09/10/20 05:00 Hct Cancelled 09/10/20 05:00 Plt Count Cancelled 09/10/20 05:00 PT 12.7 SECONDS (9.5-12.5) H 09/09/20 21:00 INR 1.08 09/09/20 21:00 Sodium Cancelled 09/10/20 05:00 Potassium Cancelled 09/10/20 05:00 BUN Cancelled 09/10/20 05:00 Creatinine Cancelled 09/10/20 05:00 Glucose Cancelled 09/10/20 05:00 Magnesium 2.5 mg/dL (1.8-2.4) H 09/09/20 20:28 Total Bilirubin 0.3 mg/dL (0.2-1.0) 09/09/20 20:28 AST 19 U/L (15-37) 09/09/20 20:28 ALT 24 U/L (12-78) 09/09/20 20:28 Alkaline Phosphatase 70 U/L (45-117) 09/09/20 20:28 Troponin I Cancelled 09/10/20 08:30 Lipase 141 U/L (73-393) 09/09/20 20:28 Home Medications: Carvedilol [Coreg] 25 mg PO BID 09/09/20 Furosemide 20 mg PO DAILY 09/09/20 Hydralazine HCl [Apresoline] 50 mg PO TID 09/09/20 Isosorbide Mononitrate [Isosorbide Mononitrate ER] 60 mg PO DAILY 09/09/20 [place] Carbonate [Lithotabs 300MG] 600 mg PO BEDTIME 09/09/20 Losartan Potassium [Cozaar] 50 mg PO DAILY 09/09/20 Nicotine [Nicoderm] 1 patch TD DAILY 09/09/20 Amiodarone HCl 100 mg PO BID 09/10/20 Amlodipine Besylate [Norvasc] 10 mg PO DAILY 09/10/20 Aspirin [Aspirin EC 81 MG] 81 mg PO DAILY 09/10/20 Atorvastatin Calcium [Lipitor] 20 mg PO BEDTIME 09/10/20 Citalopram Hydrobromide [Celexa] 20 mg PO DAILY 09/10/20 Clopidogrel Bisulfate [Plavix] 75 mg PO DAILY 09/10/20 Ondansetron HCl [Zofran] 4 mg PO TID PRN 11/17/20 Pantoprazole Sodium [Protonix] 40 mg PO DAILY 09/10/20 Followup: TonyOTJENNIFER [Primary Care Provider] -
[2020-09-10] MEDS ORDERED: ATORVASTATIN 20 MG TAB PO SCH (21:00)
[2020-09-10] MEDS ORDERED: LITHIUM CARBONATE 300 MG TAB PO SCH (21:00)
== END 2020-09-10 09:48 | disposition left against medical advice (07) ==
LOC: ER 19:52 → ERHOLD 22:40 → 2ND 23:11
PROVIDERS: ADMIT Internal Medicine; ATTEND Internal Medicine
DX: R07.9 Chest pain, unspecified (principal); I25.10 Atherosclerotic heart disease of native coronary artery without angina pectoris; Z95.1 Presence of aortocoronary bypass graft; I48.91 Unspecified atrial fibrillation; M54.5 Low back pain; G89.29 Other chronic pain; Z53.20 Procedure and treatment not carried out because of patient's decision for unspecified reasons; I13.0 Hypertensive heart and chronic kidney disease with heart failure and stage 1 through stage 4 chronic kidney disease, or unspecified chronic kidney disease; N18.30 Chronic kidney disease, stage 3 unspecified; F31.9 Bipolar disorder, unspecified; E78.5 Hyperlipidemia, unspecified; J44.9 Chronic obstructive pulmonary disease, unspecified; G47.30 Sleep apnea, unspecified; I50.9 Heart failure, unspecified; Z91.14 Patient's other noncompliance with medication regimen; F17.210 Nicotine dependence, cigarettes, uncomplicated; R94.31 Abnormal electrocardiogram [ECG] [EKG]
CPT/HCPCS: 96365; 93005 ×2; 85025; 80048; 36415; 83735; 85610; 80178; 80076; 80307 ×8; 81003; 84484; 83690; 83880; 71045; 96375; 96372; 99285; J0360; J1650; J1170 ×2; J2405 ×2

== ENCOUNTER 2020-11-27 17:08 | Observation (INO) | payer OTHER ==
--- OUTSIDE RECORDS SUMMARY | 2020-11-27 17:10 | XMS REPORT | Clinical Summary ---
:1960 Author Organization [facility] Address [address] [place] [address] Care Team Providers Name Role Phone Sharpsophie [...] Team Description 05/20/2020 Lab Requisition Lab after 11/27/2019 Social History Tobacco Use Types Packs/Day Years [...] procedure are in the results section. after 11/27/2019 Results SARS-CoV2/RT-PCR ([facility]) (05/19/2020 8:30 PM CDT) SARS-COV2/RT-PCR Negative Not Detected, STEVE [facility]'Alicia Negative, See [facility] external report CENTER for linked test SARS-COV-2 [facility]'Alicia PERFORMING LAB [facility] Specimen Other - Nasopharyngeal wall structure (b sue structure) Narrative Performed At Negative result for this test determines that [facility] SARS-CoV-2 RNA was not present in [...] the Act. Fact Sheet for Healthcare Providers: https://www.[employer]/sites/default/files/pro duct/documents/Fact_Sheet_HC_Providers_Lyra_SA RS-CoV-2.pdf Fact Sheet for Healthcare Patients: https://www.[employer]/sites/default/files/pro duct/documents/Fact_Sheet_Patients_Lyra_SARS-C oV-2.pdf Performing Laboratory: [address] [place] [address] Performing Organization Address City/State/Zipcode Phone Number [address] [address] CENTER after 11/27/2019 Insurance Payer Benefit Plan / Subscriber ID Effective Dates Phone Addre ss Type Group [facility] MEDICARE [id number] 2015-Present MEDICARE MGD CARE HMO (Home) [place] [address] Advance Directives For more information, please contact: [phone] Type Date Recorded Patient Wallpaper Consultant Explanati on Advance Directives 05/13/2018 12:09 PM Code Status Date Activated Date Inactivated Comments [...]
--- OUTSIDE RECORDS SUMMARY | 2020-11-27 17:10 | XMS REPORT | Clinical Summary ---
:1960 Author Organization [facility] Address [address] [place] [id number] Care Team Providers Name Role Phone Asked, No Pcp Primary Care Provider Unavailable Allergies No Known Active Allergies Medications No known medications Active Problems No known active problems Encounters Date Type Specialty Care Team Description 11/22/2020 Telephone Radiology OpKathi Nair RN 11/20/2020 Telephone Radiology Kathi Cabrera RN 11/19/2020 Hospital Encounter Radiology Arrived 11/19/2020 Hospital Encounter Radiology Arrived 11/19/2020 Hospital Encounter Radiology Arrived 11/19/2020 Hospital Encounter Radiology Arrived 11/19/2020 Hospital Encounter Radiology Arrived 11/19/2020 Hospital Encounter Radiology Arrived 11/19/2020 Hospital Encounter Radiology Arrived 11/19/2020 Hospital Encounter Radiology Arrived 11/19/2020 Office Visit Orthopedic Surgery Aashish Knott p ain (Primary Dx); R., PA-C DDD (degenerati ve disc disease), cervical; Chronic low jose k pain, unspecified back pain laterality, unspecified whether sciatica present; Degeneration of intervertebral disc of lumbar region; Lumbar facet ar thropathy; Cervical stenos is of spine; Sagittal plane imbalance; Left lumbar rad iculopathy 11/19/2020 Travel 11/12/2020 Travel after 11/27/2019 Surgical History Surgery Date Site/Laterality Comments SPINE SURGERY Medical History Medical History Date Comments Hypertension Heart disease Infectious viral hepatitis Social History Tobacco Use Types Packs/Day Years Used Date Never Assessed Sex Assigned at Date Recorded Not on file COVID-19 Exposure Response Date Recorded In the last month, have you been in contact with No / Unsure 11/19/2020 9:48 AM TEST DRILLER someone who was confirmed or suspected to have Coronavirus / COVID-19? Last Filed Vital Signs Not on file Plan of Treatment Date Type Specialty Care Team Description 12/03/2020 Appointment Radiology [facility] [address] [place], [place] [address] [phone] 12/03/2020 Appointment Radiology [facility] [address] [place], [place] [address] [phone] Health Maintenance Due Date Last Done Comments COVID-19 VACCINE (1 of 2) 1974 COLONOSCOPY SCREENING 2008 SHINGLES VACCINES (#1) 2008 INFLUENZA VACCINE Completed 10/02/2020 Procedures Procedure Name Priority Date/Time Associated Diagnosis Comme nts CT CHEST EXTERNAL Routine 09/14/2020 2:51 PM Res ults for this STUDY TEST DRILLER procedure are i n the results section. CT SPINE EXTERNAL Routine 09/14/2020 2:46 PM Res ults for this STUDY TEST DRILLER procedure are i n the results section. CT HEAD EXTERNAL Routine 09/14/2020 2:46 PM Resu lts for this STUDY TEST DRILLER procedure are i n the results section. XR SPINE EXTERNAL Routine 08/12/2020 2:53 PM Res ults for this STUDY CDT procedure are i n the results section. XR SPINE EXTERNAL Routine 07/12/2020 9:07 AM Res ults for this STUDY CDT procedure are i n the results section. after 11/27/[address] Chest External Study (09/14/2020 2:51 PM TEST DRILLER) Specimen Narrative Performed At This exam was not acquired at a [facility] t facility and has not been [facility] interpreted by a Scientologist Provider. T he exam was imported into our imaging system. Performing Organization Address City/State/ZIP Code Phon e Number [facility] [address] [place] [address] CT Spine External Study (09/14/2020 2:46 PM TEST DRILLER) Specimen Narrative Performed At This exam was not acquired at a Method[facility] t facility and has not been [facility] interpreted by a Scientologist Provider. T he exam was imported into our imaging system. Performing Organization Address City/State/ZIP Code Phon e Number [facility] [address] [place] [address] CT Head External Study (09/14/2020 2:46 PM TEST DRILLER) Specimen Narrative Performed At This exam was not acquired at a [facility] t facility and has not been [facility] interpreted by a Scientologist Provider. T he exam was imported into our imaging system. Performing Organization Address City/State/ZIP Code Phon e Number [facility] [address] [place] [address] XR Spine External Study (08/12/2020 2:53 PM CDT)Only the most recent of2 resultswithin the time period is included. Specimen Narrative Performed At This exam was not acquired at a Method[facility] t facility and has not been [facility] interpreted by a Scientologist Provider. T he exam was imported into our imaging system. Performing Organization Address City/[facility] Code Phon e Number [facility] [address] [place] [address] after 11/27/2019 Advance Directives For more information, please contact: [phone] Type Date Recorded Patient Furnace Door Tender Explanati on Advance Directives, Living Will and Medical Power of Caterer'S Aide
--- OUTSIDE RECORDS SUMMARY | 2020-11-27 17:13 | XMS REPORT | Continuity of Care Document ---
:1960 Author Organization [facility] t Address [address] [place] [address] Care Team Providers Name Role Phone Asked, Pcp Primary Care Physician Unavailable Ramiro ORTIZ Attending Clinician Unavailable Giles Knott PA-C Attending Clinician Jessica ORTIZ Attending Clinician Unavailable Edmond Vasquez MD Attending Clinician Ramón HAYES Attending Clinician Singer MENDOZA Attending Clinician Deonte HAYES Attending Clinician MADHURI DWYER Attending Clinician Unavailable Divina CATHERINE Attending Clinician Unavailable Edmond Vasquez MD Admitting Clinician MADHURI DWYER Admitting Clinician Unavailable Divina CATHERINE Admitting Clinician Unavailable Payers Payer Name Policy Type Policy Effective Date Expiration Date Sour ce Number UHC MEDICAREUHC [id number] 2020 [place] DUAL COMPLETE 00:00:00 [facility] [id number]/[id number] 021-PresentHMO [facility] [id number] [facility] - - MEDICARE MGD 00:00:00 Medical Ce nter CAREUNITED MEDICARE [id number]/10/26 016-Present Problems Condition Condition Condition Status Onset Resolution Last Treating Co mments Source Name Details Category Date Date Treatment Clinician Date Hypertensi Hypertensi Disease Active [facility] - emergency emergency 00:00: [facility] 00 [place] Acute Acute Disease Active [facility] kidney kidney 7-20 [facility] - injury injury 00:00: Medical 00 [place] Diarrhea Diarrhea Disease Active [facility] - 00:[facility]: Medical 00 [place] Transamini Transamini Disease Active [facility] tis tis 7-20 [facility] - 00:00: Medical 00 [place] Hepatitis Hepatitis Disease Active [facility] C virus C virus 7-20 [facility] - infection infection 00:00: [facility] without without 00 Center hepatic hepatic coma coma Chest pain Chest pain Disease Active [facility] - 00:00: Medical 00 [place] Syncope Syncope Disease Active [facility] 7[facility]16 [facility] - 00:00: Medical 00 [place] Paroxysmal Paroxysmal Disease Active [facility] [...] [facility] ins 08 Clear 00:00: Pink [address] [place] [address] codeine DA Active [facility] 1-08 Clear 00:00: Pink 00 [facility] Cephalos Propensi Active Nausea And CH [...] Adverse Active rash [facility] in Reaction [facility] Cephalos Adverse Active vomiting [facility] t porins Reaction [facility] Social History Social Habit Start Date Stop Date Quantity Comments Source Exposure to Not sure [facility] SARS-CoV-2 (event) Sex Assigned At [facility] Tobacco use and 2019-06-14 2019-06-14 Never used [facility] - exposure 00:00:00 00:00:00 [facility] History of 2018-05-25 Current smoker [facility] - tobacco use 00:00:00 [facility] r Smoking Status Start Date Stop Date Source Former smoker 2019-06-14 00:00:00 2019-06-14 00:00:00 [facility] Medications Ordered Filled Start Stop Current Ordering Indication Dosage Frequency Signature Comments Components Source Medication Medication Date Date Medication? Clinician (SIG) Name Name Buddy Goodwin Yes Na Heard as needed [facility] 3[facility]19 for nausea [facility] - 00:00: [facility]oria 00 [facility] amitriptyli Yes 50mg QD Take [address] ne (ELAVIL) 8-22 by mouth Luke s - 50 MG 14:22: nightly. Medical tablet 42 [place] DULoxetine Yes 60mg QD Take [address] (CYMBALTA) 8-22 by mouth [facility] - 60 MG 14:22: daily. Medical capsule 42 [place] vitamin E Yes 200U QD Take [address] 200 UNIT 8-22 Units by [facility] - capsule 14:22: mouth Medical 42 daily. [place] lithium 300 Yes 300mg QD Take [address] MG capsule 8-22 mg by [facility] - 14:22: mouth Medical 42 nightly . Center lisinopril 20190 Yes 40mg QD Take [address] (PRINIVIL,Z 8-22 by mouth Luke s - ESTRIL) 40 14:22: daily . Medi dustin MG tablet 42 Center albuterol 2019-0 Yes 1{puff} Inhale [address] HFA 8-22 puff by [facility] - (VENTOLIN 14:22: mouth via Med ical HFA) 90 42 inhaler Center mcg/actuati every 6 on inhaler (six) hours as needed for Wheezing. mometasone- 20190 Yes 2{puff} Q.5D Inhale [address] formoterol 8-22 puffs by [facility]ukes - (DULERA) 14:22: mouth via Medi dustin 100-5 42 inhaler 2 Center mcg/actuati (two) on inhaler times daily. HYDROcodone Yes 1{tbl} Take [address] -acetaminop 8-22 tablet by Kofi es - hen (NORCO 14:22: mouth Medica l 10-325) 42 every 6 Center 10-325 mg (six) per tablet hours as needed for Pain. amiodarone 0 Yes 100mg Q.5D Take [address] (PACERONE) 8-22 mg by [facility] - 100 MG 14:22: mouth 2 Medical tablet 42 (two) Center times daily. isosorbide 20190 Yes 60mg QD Take [address] mononitrate 8-22 by mouth Luke s - (IMDUR) 60 14:22: daily. Medic al MG 24 hr 42 Center tablet ranolazine 0 Yes 1000mg QD Take 1,[address] (RANEXA) 8-22 mg by [facility] - 1,000 mg SR 14:22: mouth Medic al tablet 42 daily. Center budesonide- 2019-0 Yes 2{puff} Q.5D Inhale [address] formoterol 8-22 puffs by [facility]ukes - (SYMBICORT) 14:22: mouth via M edical 80-4.5 42 inhaler 2 Center mcg/actuati (two) on inhaler times daily. clopidogrel 2020- No 75mg QD Take [address] (PLAVIX) 75 8-22 08-21 tablet (75 L ukes - mg tablet 00:00: 23:59 mg total) Me dical 00 :00 by mouth Center daily. Albuterol Albuterol 2018-0 Yes Na Heard inhale [address] [facility] Sulfate Sulfate 5-14 vial by [facility]ukes - 00:00: mouth via Memoria 00 nebulizer l 3 times a Outpati day ent Clinics Ipratropium Ipratropium 2018-0 Yes Na Heard as [facility] [place] 5-14 directed [facility] - 00:00: [facility] 00 [facility] Amlodipine Amlodipine 2017-10 Yes Na Heard [address] Besylate Besylate 0-29 [facility] - 00:00: [facility] 00 [facility] aspirin 81 2017- Yes 81mg QD Take 1 [facility] [...] times daily as needed for Heartburn. atorvastati 2017-0 Yes 20mg QD Take [address] n (LIPITOR) 7-19 tablet (20 Abigail kes - 20 MG 00:00: mg total) Medical tablet 00 by mouth Center nightly Take instead of simvastati n for cholestero l. Clonidine Clonidine 2017-0 Yes Na Heard [address] HCl HCl 6-27 twice x 1 [facility]ukes - 00:00: week then Memoria 00 1 tablet l [facility] ent Clinics carvedilol Yes 25mg Take 1 [facility] t (COREG) 25 4-05 tablet (25 Kofi es - MG tablet 00:00: mg total) Med ical 00 by mouth 2 Center (two) times daily with breakfast and dinner. Amitriptyli Amitriptyli Yes Na Heard [address] ne HCl ne HCl [facility] - Memoria l [facility] ent Clinics Dulera Dulera Yes Na Heard 2 puffs [facility] ent Clinics Amiodarone Amiodarone Yes Na Heard [address] HCl HCl [facility] - Memoria l [facility] ent Clinics -- Yes Na Heard [address] [facility] Clinics Isosorbide Isosorbide Yes Na Heard [address] Mononitrate Mononitrate in the [facility]ukes - ER ER morning Memoria l [facility] ent Clinics [place] Yes Na Heard [address] Carbonate Carbonate at bedtime [facility] Atorvastati Atorvastati Yes Na Heard [address] n Calcium n Calcium [facility] - [facility] l [facility] ent Clinics Losartan Losartan Yes Na Heard [address] Potassium Potassium [facility] Clinics Gabapentin Gabapentin Yes Na Heard [address] Clinics Carvedilol Carvedilol Yes Na Heard as [facility] directed [facility] - Mem[facility] l [facility] ent Clinics HydrALAZINE HydrALAZINE Yes Na Heard [address] HCl HCl with food [facility] - [facility] ent Clinics Citalopram Citalopram Yes Na Heard [address] Hydrobromid Hydrobromid L ukes - e e Memoria l [facility] ent Clinics Lorazepam Lorazepam Yes Na Heard [address] as needed [facility] - [facility] ent Clinics Olivet Olivet Yes Na Heard [address] as needed [facility] - [facility] Clinics Hydrochloro Hydrochloro Yes Na Heard [address] thiazide thiazide in the Lukes - morning Memoria l [facility] ent Clinics Ranolazine Ranolazine Yes Na Heard [address] ER ER [facility] Outpati ent Clinics Lisinopril Lisinopril Yes Na Heard [address] [facility] Lactulose Lactulose Yes Na Heard [address] [facility] [place] Yes Na Heard TAKE [address] Carbonate Carbonate CAPSULE BY [facility]ukes - MOUTH Memoria DAILY AT l BEDTIME [facility] Procedures Procedure Date / Time Performed Performing Clinician Sourc e CT CHEST EXTERNAL 2020-09-14 14:51:[address] HEAD EXTERNAL STUDY 2020-09-14 14:46:00 [facility] SPINE EXTERNAL 2020-09-14 14:46:00 Aashish Knott STUDY XR SPINE EXTERNAL 2020-08-12 14:53:00 Aashish Knott STUDY XR SPINE EXTERNAL 2020-07-12 09:07:00 Aashish Knott STUDY SARS-COV2/RT-PCR ([facility] 2020-05-19 20:30:00 [facility] Plan of Care Planned Activity Planned Date Details Comments Source Future Scheduled 2022-06-[address] [facility] - Test 00:00:00 (procedure) [code = [facility] 16503670] Future Scheduled 2020-06-25 INFLUENZA VACCINE (#1) [facility] Test 00:00:00 [code = INFLUENZA Medical Ce nter VACCINE (#1)] Future Scheduled 2016-12-[address] [facility] - Test 00:00:00 WELLNESS (YEAR 2 or Medical Center FIRST YEAR if no IPPE) [code = MEDICARE ANNUAL WELLNESS (YEAR 2 or FIRST YEAR if no IPPE)] Future Scheduled 2008 COL[place]OSCOPY SCREENING [place] [facility] Test 00:00:00 [code = COLONOSCOPY SCREENING] Future Scheduled 2008 SHINGLES VACCINES (#1) [place] [facility] Test 00:00:00 [code = SHINGLES VACCINES (#1)] Future Scheduled 1974 COVID-19 VACCINE (1 of [place] [facility] Test 00:00:00 2) [code = COVID-19 VACCINE (1 of 2)] Future Scheduled [address] [facility] - Test 00:00:00 0-64 YRS (1 of 1 - Medical C enter PPSV23) [code = PNEUMOCOCCAL VACCINE 0-64 YRS (1 of 1 - PPSV23)] Future Scheduled [address] [facility] K[facility]i es - Test 00:00:00 malignant neoplasm of Medica l Center colon (procedure) [code = 720184665] Encounters Start End Encounter Admission Attending Care Care Encounter Source Date/Time Date/Time Type Type Clinicians Facility Department ID 2020-11-19 2020-11-19 Outpatient [facility] [id number] 00:00:00 00:00:[address] 2020-11-19 2020-11-19 Outpatient [facility] [id number] [address] 00:00:00 00:00:[address] 2020-11-19 2020-11-19 Outpatient [facility] [id number] [address] 00:00:00 00:00:[address] 2020-11-19 2020-11-19 Outpatient [facility] [id number] [address] 00:00:00 00:00:[address] 2020-11-19 2020-11-19 Outpatient [facility] [id number] [address] 00:00:00 00:00:[address] 2020-11-19 2020-11-19 Outpatient [facility] [id number] [address] 00:00:00 00:00:[address] 2020-11-19 2020-11-19 Outpatient [facility] [id number] [address] 00:00:00 00:00:[address] 2020-11-19 2020-11-19 Outpatient [facility] [id number] [address] 00:00:00 00:00:[address] 2020-11-19 2020-11-19 Outpatient [facility] [id number] [address] 00:00:00 00:00:[address] 2020-11-07 2020-11-07 Outpatient [facility] [id number] [facility] 00[facility]00 Yeyo - Fay rizo [facility] 2020-08-12 2020-08-12 Out[facility] [id number] [facility] 2020-08-08 2020-08-08 [facility] [id number] [facility] 2020-07-22 2020-07-22 Transition Jackie Lopez [id number] 00:00:00 00:00:00 of Care Mirella Castro [id number] [place] [id number] 2020-07-18 2020-07-20 Hospital Darren Vasquez [id number] 22:50:00 13:00:00 Encounter RamónMoshe Mamadou [id number] 2020-07-18 2020-07-18 Emergency Mejia Hdz [facility] [id number] 17:31:00 21:56:00 Osmin Clemons [id number] [place] [id number] [place] [id number] 2020-06-25 2020-06-25 [facility] [id number] 11:20:00 11:20:00 t [employer] [facility] Medicine Medicine Outpati ent Clinics 2020-05-03 2020-05-03 [facility] [id number] 14:25:00 14:25:00 [place] [employer] s - Drive [facility] Family Medicine l Medicine Outpati ent Clinics 2020-02-12 2020-02-12 [facility] [id number] 11:15:00 11:15:00 [place] [employer] s - Drive [facility] Medicine l Medicine Outpati ent Clinics 2020-01-26 2020-01-26 [facility] [id number] 11:20:00 11:20:00 [place] [employer] s - Drive [facility] Medicine l Medicine Outpati ent Clinics 2020-01-11 2020-01-11 [facility] [id number] 15:32:00 15:32:00 t [place] [facility] Medicine Outpati ent Clinics 2020-01-03 2020-01-03 [facility] [id number] 09:20:00 09:20:00 t [place] [facility] Medicine Outpati ent Clinics 2020-01-02 2020-01-02 Outpatient MHBL MHBL [id number] MHBL 09:54:00 09:54:00 2019-11-13 2019-11-13 [facility] [id number] 14:13:00 14:13:00 t Specialty/U Abigail kes - Specialty rology [facility] a /Urology Clinic l Clinic Outpati ent Clinics 2019-11-01 2019-11-01 [facility] [id number] 09:20:00 09:20:00 t [place] [facility] Medicine Outpati ent Clinics 2019-10-27 2019-10-27 Outpatient MHSE MHSE [id number] MH 08:50:00 08:50:00 [facility] 2019-09-05 2019-09-05 [facility] [id number] 09:29:00 09:29:00 t [place] [facility] Medicine Outpati ent Clinics 2019-05-31 2019-05-31 [facility] [id number] 12:00:00 12:00:00 t [place] [facility] Medicine Outpati ent Clinics 2019-05-30 2019-05-30 [facility] [id number] 15:00:00 15:00:00 t [place] [facility] Medicine Outpati ent Clinics 2019-04-26 2019-04-26 [facility] [id number] 15:09:00 15:09:00 t [place] [facility] Medicine Outpati ent Clinics 2019-03-30 2019-03-30 [facility] [id number] 15:40:00 15:40:[address] [facility] - Drive [facility] Medicine l Medicine Outpati ent Clinics 2019-02-23 2019-02-23 Outpatient E MHSE MED [id number] 15:40:00 15:40:00 [facility] 2019-01-10 2019-01-10 [facility] [id number] 08:41:00 08:41:[address] Luke s - Drive [facility] l Medicine Outpati ent Clinics 2018-12-12 2018-12-12 [facility] [id number] 08:15:00 08:15:[address] Luke s - Drive [facility] Medicine l Medicine Outpati ent Clinics 2018-07-27 2018-07-27 [facility] [id number] 15:15:00 15:15:00 [place] [employer] Luke s - Drive [facility] Medicine l Medicine Outpati ent Clinics 2018-06-09 2018-06-09 [facility] [id number] 08:00:00 08:00:00 [place] [employer] Luke s - Drive [facility] Medicine l Medicine Outpati ent Clinics 2018-05-31 2018-05-31 [facility] [id number] 09:00:00 09:00:00 [place] [employer] Luke s - Drive [facility] Medicine l Medicine Outpati ent Clinics 2018-04-20 2018-04-20 [facility] [id number] 09:45:00 09:45:00 [place] [employer] Luke s - Drive [facility] Medicine l Medicine Outpati ent Clinics 2018-04-15 2018-04-15 [facility] [id number] 15:26:00 15:26:[address] [facility] s - Drive [facility] Medicine l Medicine Outpati ent Clinics 2018-03-15 2018-03-15 [facility] [id number] 15:15:00 15:15:[address] [facility] s - Drive [facility] Medicine l Medicine Outpati ent Clinics 2018-02-28 2018-02-28 [facility] [id number] 09:15:00 09:15:00 [facility] Results Test Description Test Time Test Comments Results Result [facility] e Comments XR Spine External 2020-11-19 This exam was not Vega Study 14:10:51 acquired at a [facility] facility and has not been interpreted by a [facility] Provider. The exam was imported into our imaging system. CT Chest External 2020-11-19 This exam was not Vega Study 14:00:27 acquired at a [facility] facility and has not been interpreted by a [facility] Provider. The exam was imported into our imaging system. CT Spine External 2020-11-19 This exam was not Vega Study 13:56:35 acquired at a [facility] facility and has not been interpreted by a [facility]aker Provider. The exam was imported into our imaging system. CT Head External 2020-11-19 This exam was not [facility] Study 13:54:19 acquired at a [facility] facility and has not been interpreted by a [facility]aker Provider. The exam was imported into our imaging system. SARS-CoV2/RT-PCR ([facility] Ref Labs) 2020-05-20 09:54:00 Test Item Value Reference Range Interpretation Comme nts SARS-COV2/RT-PCR (test code = Negative Not Detected, 42299-9) Negative, See external report for linked test SARS-COV-[address] [facility] GRA[place] (test code = 14014-1) JENNIFER (test code = JENNIFER) Negative result [...] of the Act. Fact Sheet for Healthcare Providers:https://www.[employer]/sites/default/files/produ ct/documents/Fact_Sheet_HC_Pr bttvrgb_Zuis_OGAY-CnG-0.pdf Fact Sheet for Healthcare Patients:https://www.[employer]/sites/default/files/produc t/documents/Fact_Sheet_Patien mv_Vdye_SWLS-JhR-1.pdf Performing Laboratory:[address] [place], [place] [address]ARS-COV2/RT-PCR ([facility]F [facility])2020-05-20 09:54:00 Test Item Value Reference Range Interpretation Comments SARS-COV2/RT-PCR (test Negative Not Detected, Negative, code = 5218238) See external report for linked test SARS-COV-[address] [facility] [place] (test code = 4226565) Negative result for this test determines that [...] 564(g) of the Act.Fact Sheet for Healthcare Providers:https://www.[employer]/sites/default/files/product/documents/Fact_Shee t_BH_Qreywaiiz_Dnrl_TFVM-EeU-3.pdfFact Sheet for Healthcare Patients:https://www.[employer]/sites/default/files/product/ documents/Mnfk_Ynocn_Zxnpjbag_Fmjv_WMGD-ClK-0.pdfPerforming Laboratory:[facility], [place] [address]DNHAT METABOLIC PANEL 2019-11-04 06:36:00 Test Item Value [...] CA) 8.9 MG/DL 8.5-10.1 N CBC W/AUTO [id number] 06:32:00 Test Item Value Reference Range Interpretation [...] = NO DIFF/SCN CRITERIA MDIFF) COMPREHENSIVE METABOLIC [id number] 06:08:00 Test Item Value Reference Range Interpretation [...] TOTAL (test code = ALKP) CBC W/AUTO [id number] 05:52:00 Test Item Value Reference Range Interpretation [...] concentrations <2 ng/mL are obtai brandon. LACTIC [id number] 16:03:00 Test Item Value Reference Range Interpretation Comments LACTIC ACID (test code = LACT) 1.0 mmol/L 0.4-2.0 N - XR CHEST 1 [id number] 15:59:00 Name: ALHAJI FARAH [facility] : 1960 Age/S: 58 / M [id number] Unit #: [id number] Loc: [place] [address] Phys: Jac Leal MD Acct: [id number] Dis Date: Status: ADM IN PHONE #: [phone] Exam Date: 11/02/2019 1556 FAX #: Reason: Fever EXAMS: CPT: [id number] XR CHEST 1 V 31873 Fluoro Time: DAP (Gy m2): Air Kerma [...] MD PAGE 1 Signed Report Name: ALHAJI FRAAH : 1960 Age/S: 58 / M [address] Unit #: [id number] Loc: [place] [address] Phys: Jac Leal MD Acct: [id number] Dis Date: Status: ADM IN PHONE #: [phone] Exam Date: 11/02/2019 1556 FAX #: Reason: Fever EXAMS: CPT: [id number] XR CHEST 1 V 24665 Fluoro Time: DAP (Gy m2): Air Kerma (mGy): <Continued> Technologist: Sabine Cross RT(R)(CT) Trnscb Date/Time: 11/02/2019 (7257) [email or web address] Orig Print D/T: S: 11/02/2019 (2540) PAGE 2 Signed [id number] 04:22:00 Test Item Value Reference Range Interpretation [...] may roma yby method. Completed by Nursing: [facility] METABOLIC [id number] 04:19:00 Test Item Value Reference Range Interpretation [...] CA) 8.1 MG/DL 8.5-10.1 L CBC W/AUTO [id number] 04:08:00 Test Item Value Reference Range Interpretation [...] = NO DIFF/SCN CRITERIA MDIFF) - CTA [id number] 22:57:00 Name: ALHAJI FARAH [facility] : 1960 Age/S: 58 / M [id number] Unit #: [id number] Loc: [place] [address] Phys: Jac Leal MD Acct: [id number] Dis Date: Status: ADM IN PHONE #: [phone] Exam Date: 11/01/2019 9775 FAX #: Reason: Chest PAIN EXAMS: CPT: [id number] CTA CHEST 89850 Examination: CTA chest, PE protocol Indication: Chest [...] FARAH : 1960 Age/S: 58 / M [address] Unit #: [id number] Loc: [place] [address] Phys: Jac Leal MD Acct: [id number] Dis Date: Status: ADM IN PHONE #: [phone] Exam Date: 11/01/20191 FAX #: Reason: Chest PAIN EXAMS: CPT: [id number] CTA CHEST 54951 <Continued> No suspicious or destructive osseous lesions. [...] RT(R)(CT); .. CTDI: DLP: Trnscb Date/Time: 11/01/2019 (8592) [email or web address] Orig Print D/T: S: 11/01/2019 (7180) PAGE 2 Signed ReportGLYCOSYLATED HEMOGLOBIN [id number] 17:41:00 Test Item Value Reference Range Interpretation Comments GLYCOSYLATED HEMOGLOBIN (HA1C) 6.3 % A1C 4.2-6.3 N (test code = GLYHGB) ESTIMATED AVERAGE GLUCOSE (test 134 MG/DLest code = EAG) COMPREHENSIVE METABOLIC [id number] 17:40:00 Test Item Value Reference Range Interpretation [...] = LDL/HDL) 2.94 Ratio 1.48-3.22 Avg N [id number] 17:40:00 Test Item Value Reference Range Interpretation Comments PHOSPHOROUS (test code = PHOS) 3.5 MG/DL 2.5-4.9 N RULE OUT GA [id number] 17:40:00 Test Item Value Reference Range Interpretation [...] nume rical results may roma yby method. [id number] 17:40:00 Test Item Value Reference Range Interpretation Comments MAGNESIUM (test code = MAG) 2.5 MG/DL 1.8-2.4 H TROPONIN I [id number] 15:24:00 Test Item Value Reference Range Interpretation Comments TROPONIN I RAPID 0.04 ng/mL 0.00-0.08 N - The use o f serial (test code = sampling and te sting TROPIRAP) protocol is a recommended pra ctice- An elevated tro ponin level alone is often not sufficient for diagnosis of my ocardial infarction. BASIC METABOLIC [id number] 13:39:00 Test Item Value Reference Range Interpretation [...] 133 Unit/L 26-192 N CK) TROPONIN I [id number] 11:56:00 Test Item Value Reference Range Interpretation Comments TROPONIN I RAPID 0.04 ng/mL 0.00-0.08 N - The use o f serial (test code = sampling and te sting TROPIRAP) protocol is a recommended pra ctice- An elevated tro ponin level alone is often not sufficient for diagnosis of my ocardial infarction. - XR CHEST 1 [id number] 11:53:00 Name: ALHAJI FARAH Orchard : 1960 Age/S: 58 / M [address] Unit #: [id number] Loc: [place] [address] Phys: Darell Medrano MD Acct: [id number] Dis Date: Status: PRE ER PHONE #: [phone] Exam Date: 11/01/2019 1146 FAX #: Reason: chest pain EXAMS: CPT: [id number] XR CHEST 1 V 88857 Fluoro Time: DAP (Gy m2): Air Kerma [...] PAGE 1 Signed Report Name: ALHAJI FARAH Orchard :1960 Age/S: 58 / M [address] Unit #: [id number] Loc: [place] [address] Phys: Darell Medrano MD Acct: [id number] Dis Date: Status: PRE ER PHONE #: [phone] Exam Date: 11/01/2019 1146 FAX #: Reason: chest pain EXAMS: CPT: [id number] XR CHEST 1 V 05410 Fluoro Time: DAP (Gy m2): Air Kerma (mGy): <Continued> Technologist:Nirmal Negron RT(R)(MR) Trnscb Date/Time: 11/01/2019 (5778) Bonnie.JH12 Orig Print D/T: S: 11/01/2019 (7827) PAGE 2 Signed ReportCBC W/O [id number] 11:50:00 Test Item Value Reference Range Interpretation [...] 11.80 fL 7.0-9.6 H MPV) CHEMISTRY 8 [id number] 11:47:00 Test Item Value Reference Range Interpretation [...] 49-113 N code = GFRBED) CHEMISTRY 8 [id number] 11:47:00 Test Item Value Reference Range Interpretation [...] 49-113 N (test code = GFRBED) TISSUE [id number] 10:31:00Surgical Pathology Report Case: [id number] Authorizing Provider: Caleb Dawn Collected: 06/14/2019 1521 MD Carmen Ordering Location: [address] Received: 06/15/2019 0759 Service Pathologist: Misty Jackson MD Specimen: Ampulla, Ampulla Bx A. "AMPULLA", BIOPSY: - SQUAMOUS AND FOVEOLAR TYPE MUCOSA WITH MILD CHRONIC INFLAMMATION - NEGATIVE FOR MALIGNANCY (SEE COMMENT) Signing Pathologist Direct Phone Line: [phone] signed by Misty Jackson MD on 06/19/2019 at 10:31 AMThe biopsy shows fragments of squamous and foveolar type mucosa with mild chronic inflammation and cautery. Focal muscle is also seen. No definite small bowel/ biliary lining is seen. The ampulla normally does not have squamous lining. This could be a metaplastic change. Clinical and endoscopic correlation is required.[id number] and postop diagnosis: endoscopic ultrasound with endo, [...] patient radiation dose information. Signed: Clifton Nicholas Verified Date/Time: 06/16/2019 12:50:49 Reading Location: [facility] Reading Room BLOOD CULTURE 2019-06-16 12:01:00 Test Item Value Reference Range Interpretation Comments CULTURE (BEAKER) (test No growth in 5 days code = 1095) BLOOD [id number] 12:01:00 Test Item Value Reference Range Interpretation Comments CULTURE (BEAKER) (test No growth in 5 days code = 1095) COMPREHENSIVE METABOLIC [id number] 07:08:00 Test Item Value Reference Range Interpretation [...] NOT APPLICABLE FOR DIALYSIS PATIEN TS. BLOOD [id number] 02:00:00 Test Item Value Reference Range Interpretation Comments CULTURE (BEAKER) (test No growth in 5 days code = 1095) BLOOD [id number] 02:00:00 Test Item Value Reference Range Interpretation Comments CULTURE (BEAKER) (test No growth in 5 days code = 1095) BLOOD [id number] 02:00:00 Test Item Value Reference Range Interpretation Comments CULTURE (BEAKER) (test No growth in 5 days code = 1095) COMPREHENSIVE METABOLIC [id number] 04:49:00 Test Item Value Reference Range Interpretation [...] 0-0 CELLS (BEAKER) (test code = 413) [id number] 16:17:00 Test Item Value Reference Range Interpretation Comments ACTIVATED CLOTTING TIME 125 sec TEST ED AT [facility] [address] (ARIEL) (test code = [place] [address]) [address] PET, CARDIAC PERFUSION MULTIPLE STUDIES, REST AND [id number] 16:40:00 Reason for exam:->chest pain, evaluate for worsening CAD, s/p CABGFINAL REPORT PROCEDURE: MYOCARDIAL PERFUSION PET IMAGING (Rest/Stress)CPT CODE: 38029 INDICATION: Evaluate acute chest pain/discomfort CARDIOVASCULAR PROFILE:CAD [...] MDReport Verified Date/Time: 06/12/2019 16:40:23 Reading Location: [address] P327B [facility] Reading Room TROPONIN [id number] 02:08:00 Test Item Value Reference Range Interpretation [...] acute neurological disease, and persistent tachyarrhythmia.HEPATIC FUNCTION [id number] 02:02:00 Test Item Value Reference Range Interpretation [...] = 26 U/L 6-55 347) BASIC METABOLIC [id number] 02:02:00 Test Item Value Reference Range Interpretation [...] APPLICABLE FOR DIALYSIS PATIEN TS. VANCOMYCIN LEVEL, [id number] 01:59:00 Test Item Value Reference Range Interpretation [...] WBC 0-0 (BEAKER) (test code = 413) [id number] 07:20:00 Test Item Value Reference Range Interpretation Comments PROCALCITONIN (BEAKER) (test code 0.30 ng/mL <0.05 H = 3036) SEPSIS RISK (ng/mL)Low: 0.05-0.50Intermediate: 0.51-2.00High: >=2.01BASIC METABOLIC [id number] 07:16:00 Test Item Value Reference Range Interpretation [...] APPLICABLE FOR DIALYSIS PATIEN TS. HEPATIC FUNCTION [id number] 07:16:00 Test Item Value Reference Range Interpretation [...] WBC 0-0 (BEAKER) (test code = 413) [id number] 05:55:00 Test Item Value Reference Range Interpretation Comments MAGNESIUM (BEAKER) (test code = 2.1 mg/dL 1.6-2.6 627) LIPID [id number] 05:55:00 Test Item Value Reference Range Interpretation [...] 130-159 High 160-189 Very High >=190HEPATIC FUNCTION [id number] 05:55:00 Test Item Value Reference Range Interpretation [...] = 34 U/L 6-55 347) BASIC METABOLIC [id number] 05:55:00 Test Item Value Reference Range Interpretation [...] PATIEN TS. CBC W/PLT COUNT & AUTO [id number] 05:03:00 Test Item Value Reference Range Interpretation [...] PERCENT (BEAKER) (test code = 2801) TROPONIN [id number] 05:02:00 Test Item Value Reference Range Interpretation [...] acute neurological disease, and persistent tachyarrhythmia.LACTIC ACID, [id number] 04:48:00 Test Item Value Reference Range Interpretation Comments LACTATE BLOOD VENOUS (2) (BEAKER) 1.1 mmol/L 0.5-2.2 (test code = 2872) URINALYSIS W/ REFLEX URINE [id number] 03:25:00 Test Item Value Reference Range Interpretation [...] SOURCE(BEAKER) (test code = 2795) OXYGEN SATURATION, [id number] 03:04:00 Test Item Value Reference Range Interpretation [...] 0.7 mmol/L 0.5-2.2 (test code = 2872) [id number] 23:52:00 Test Item Value Reference Range Interpretation Comments PROCALCITONIN (BEAKER) (test code 0.30 ng/mL <0.05 H = 3036) SEPSIS RISK (ng/mL)Low: 0.05-0.50Intermediate: 0.51-2.00High: >=2.01TROPONIN [id number] 23:40:00 Test Item Value Reference Range Interpretation [...] failure, acidosis, acute neurological disease, and persistent tachyarrhythmia.[id number] 23:34:00 Test Item Value Reference Range Interpretation Comments PHOSPHORUS (BEAKER) (test code = 3.4 mg/dL 2.3-4.7 604) [id number] 23:34:00 Test Item Value Reference Range Interpretation Comments MAGNESIUM (BEAKER) (test code = 2.2 mg/dL 1.6-2.6 627) BASIC METABOLIC [id number] 23:34:00 Test Item Value Reference Range Interpretation [...] APPLICABLE FOR DIALYSIS PATIEN TS. HEPATIC FUNCTION [id number] 23:34:00 Test Item Value Reference Range Interpretation [...] = 42 U/L 6-55 347) COMPREHENSIVE METABOLIC [id number] 23:34:00 Test Item Value Reference Range Interpretation [...] 347) EGFR (BEAKER) (test 50 mL/min/1.73 ESTIMA JUAERZ GFR IS code = 1092) sq m NOT ACCURATE CREATININE CLEARANCE IN PREDICTING GLOMERULAR FILTRATION RATE . ESTIMATED GFR I S NOT APPLICABLE FOR DIALYSIS PATIEN TS. [id number] 23:34:00 Test Item Value Reference Range Interpretation Comments LIPASE (BEAKER) (test code = 749) 38 U/L 8-78 [id number] 23:33:00 Test Item Value Reference Range Interpretation Comments PARTIAL THROMBOPLASTIN TIME 27.3 seconds 22.5-36.0 (BEAKER) (test code = 760) [id number] 23:33:00 Test Item Value Reference Range Interpretation Comments FIBRINOGEN LEVEL (BEAKER) (test 300 mg/dl 225-434 code = 658) PROTHROMBIN TIME/[id number] 23:32:00 Test Item Value Reference Range Interpretation [...] mechanical heart valves.CBC W/PLT COUNT & AUTO [id number] 23:22:00 Test Item Value Reference Range Interpretation [...] (BEAKER) (test code = 2801) BLOOD GAS, [id number] 22:27:00 Test Item Value Reference Range Interpretation [...] code = 1819) 21.0 % POCT-LACTIC ACID, [id number] 21:53:00 Test Item Value Reference Range Interpretation Comments POC-LACTIC ACID, 1.6 mmol/L 0.9-1.7 TESTED AT [facility] [address] (BEAKER) (test [place] code = 2805) [address] TROPONIN [id number] 18:59:00 Test Item Value Reference Range Interpretation [...] acute neurological disease, and persistent tachyarrhythmia.HEPATITIS C [id number] 16:55:00 Test Item Value Reference Range Interpretation Comments HEPATITIS C ANTIBODY (BEAKER) (test Reactive Nonreactive A code = 367) POCT-GLUCOSE [id number] 12:03:00 Test Item Value Reference Range Interpretation Comments POC-GLUCOSE METER 169 mg/dL 70-110 H TESTED AT [place] [address] ([facility]) [facility] 1538[facility] [address] HEPATITIS B CORE ANTIBODY, [id number] 08:37:00 Test Item Value Reference Range Interpretation Comments HEPATITIS B CORE TOTAL ANTIBODY Reactive Nonreactive A ([facility]) (test code = 497) POCT-GLUCOSE [id number] 08:14:00 Test Item Value Reference Range Interpretation Comments POC-GLUCOSE METER 105 mg/dL 70-110 TESTED AT [place] [address] ([facility]) (test code = [facility] 1538) [address] HEPATIC FUNCTION [id number] 07:10:00 Test Item Value Reference Range Interpretation [...] 67 U/L 6-55 H 347) BASIC METABOLIC [id number] 07:10:00 Test Item Value Reference Range Interpretation [...] FOR DIALYSIS PATIEN TS. HEPATITIS B SURFACE [id number] 06:58:00 Test Item Value Reference Range Interpretation Comments HEPATITIS B SURFACE ANTIBODY < mIU/mL <8.0 (BEAKER) (test code = 647) HEPATITIS B SURFACE [id number] 05:42:00 Test Item Value Reference Range Interpretation Comments HEPATITIS B SURFACE ANTIGEN (2) Nonreactive Nonreactive (BEAKER) (test code = 2585) HEPATITIS B CORE ANTIBODY, [id number] 05:42:00 Test Item Value Reference Range Interpretation Comments HEPATITIS B CORE IGM ANTIBODY Nonreactive Nonreactive (BEAKER) (test code = 645) CBC W/PLT COUNT & AUTO [id number] 04:56:00 Test Item Value Reference Range Interpretation [...] (test code = 2801) U/S, RENAL WITH [id number] 16:28:00Reason for exam:->hypertensionFINAL REPORT INDICATION: 57-year-old inpatient [...] MDReport Verified Date/Time: 05/11/2018 16:28:02 Reading Location: [address] Ultrasound Reading Room U/S, ABDOMINAL, [id number] 16:15:00Abdomen limited area? Add comment if clarification [...] MDReport Verified Date/Time: 05/11/2018 16:15:41 Reading Location: [place] [id number] Ultrasound Reading Room CTA, CHEST, ABDOMEN - PELVIS, FOR [id number] 14:11:00Reason for exam:->Chest painAddendum BeginsREPORT STATUS:A Addendum: I agree with the previously described non vascular findings. Signed: Antionette Hinojosa MDReport Verified Date/Time: 05/11/2018 14:11:09 Reading Location: [place] [id number] Angio Body Reading RoomAddendum EndsFINAL REPORT CT [...] coronary artery calcification is seen in the [place] coronary territories. Patient is post coronary artery [...] thoracic aorta. In the abdominal aorta, circumferential idlb-db-bouapnsu calcific atherosclerosis is seen. Overall, no ectasia [...] An addendum will be dictated by the Regional Account Executive Radiologist regarding the nonvascular findings. Signed: Magno Augustin Verified Date/Time: 05/10/2018 18:58:16 Reading Location: [place] [address] Cardiology MRI CALCIUM, [id number] 05:20:00 Test Item Value Reference Range Interpretation Comments CALCIUM IONIZED (BEAKER) (test 1.16 mmol/L 1.12-1.27 code = 698) PH, BLOOD (BEAKER) (test code = 7.40 1810) [id number] 04:29:00 Test Item Value Reference Range Interpretation Comments PHOSPHORUS (BEAKER) (test code = 3.5 mg/dL 2.3-4.7 604) [id number] 04:29:00 Test Item Value Reference Range Interpretation Comments MAGNESIUM (BEAKER) (test code = 2.4 mg/dL 1.6-2.6 627) COMPREHENSIVE METABOLIC [id number] 04:29:00 Test Item Value Reference Range Interpretation [...] PATIEN TS. CBC W/PLT COUNT & AUTO [id number] 03:58:00 Test Item Value Reference Range Interpretation [...] (BEAKER) (test code = 2801) U/S, RENAL, [id number] 13:00:00Reason for exam:->akiShould this be performed at [...] protocol) is recommended for further evaluation. Signed: tSella Ruano MDReport Verified Date/Time: 05/10/2018 13:00:32 Reading Location: [facility] P006J Ultrasound Reading Room CALCIUM, [id number] 06:58:00 Test Item Value Reference Range Interpretation Comments CALCIUM IONIZED (BEAKER) (test 1.08 mmol/L 1.12-1.27 L code = 698) PH, BLOOD (BEAKER) (test code = 7.35 1810) B-TYPE NATRIURETIC FACTOR (BNP)2018-05-10 05:49:00 Test Item Value Reference Range Interpretation Comments B-TYPE NATRIURETIC PEPTIDE (BEAKER) 153 pg/mL 0-100 H (test code = 700) [id number] 05:47:00 Test Item Value Reference Range Interpretation Comments MAGNESIUM (BEAKER) 2.4 mg/dL 1.6-2.6 Specimen slightly (test code = 627) hemolyzed [id number] 05:47:00 Test Item Value Reference Range Interpretation Comments PHOSPHORUS (BEAKER) 2.7 mg/dL 2.3-4.7 Specimen slightly (test code = 604) hemolyzed COMPREHENSIVE METABOLIC [id number] 05:47:00 Test Item Value Reference Range Interpretation [...] PATIEN TS. CBC W/PLT COUNT & AUTO [id number] 05:31:00 Test Item Value Reference Range Interpretation [...] (BEAKER) (test code = 2801) EOSINOPHIL SMEAR, [id number] 22:19:00 Test Item Value Reference Range Interpretation Comments EOSINOPHIL SMEAR, URINE (BEAKER) No EOS seen No EOS seen (test code = 1851) URINALYSIS W/ [id number] 22:13:00 Test Item Value Reference Range Interpretation [...] SOURCE(BEAKER) (test code = 2795) SODIUM, RANDOM [id number] 21:38:00 Test Item Value Reference Range Interpretation Comments SODIUM URINE (BEAKER) (test code = < meq/L 243) Reference Range: No NormalsPROTEIN, RANDOM [id number] 21:38:00 Test Item Value Reference Range Interpretation Comments PROTEIN, URINE (BEAKER) (test code = 15 mg/dL 0-14 H 1569) CREATININE, RANDOM [id number] 21:38:00 Test Item Value Reference Range Interpretation Comments CREATININE URINE (BEAKER) (test 173.4 mg/dL code = 375) Reference Range: No NormalsRAD, FOOT, 2 VIEWS, [id number] 13:59:00Reason for exam:->Pain and swelling of left foot after fall.FINAL REPORT Two views left foot Discussion: There is hallux valgus with degen erative changes. No visible acute fracture, dislocation, destructive lesion. Soft tissues are unremarkable. Signed: Darren Ariza Verified Date/Time: 05/09/2018 13:59:01 Reading Location: [address] Consult Reading Room PUL PERF IMAGING, PARTIC, [id number] 12:03:00FINAL REPORT PROCEDURE: V/Q LUNG SCAN CPT CODE: 27296 INDICATION: Acute chest pain, PE suspected, dyspnea, [...] of acute pulmonary embolization. Signed: Edmond Pimentel MDRjagdishort Verified Date/Time: 05/09/2018 12:03:05 ReadingLocation: [facility] [address] [address] [facility] Reading Room FL, ESOPH, SWALLOW FUNCTION, WITH CINE OR [id number] 11:00:00Reason for exam:->chest painFINAL REPORT Esophagram History: chest pain Technique: Esophagram was performed using thin liquid barium. Total fluoroscopy time: 0.45 minutes Total number of films: 19 Findings:There is no significant esophageal dysmotility. There is no esophageal diverticulum or hiatus hernia. Mild gastroesophageal reflux was observed. Assessment of the gastric fundal region appear unremarkable. Impression: 1. Mild gastroesophageal reflux. Signed: Michael Calvert MDReport Verified Date/Time: 0 05/09/2018 11:00:37 Reading Location: [facility] C013X [facility] Consult Reading Room HEMOGLOBIN [id number] 10:45:00 Test Item Value Reference Range Interpretation Comments HEMOGLOBIN A1C (BEAKER) (test code = 6.3 % 4.3-6.1 H 368) BASIC METABOLIC [id number] 08:43:00 Test Item Value Reference Range Interpretation [...] FOR DIALYSIS PATIEN TS. Re-draw per labLIPID [id number] 08:42:00 Test Item Value Reference Range Interpretation [...] Borderline 130-159 High 160-189 Very High >=190LITHIUM [id number] 08:31:00 Test Item Value Reference Range Interpretation Comments LITHIUM LEVEL (BEAKER) (test code 0.4 mmol/L 0.8-1.2 L = 630) RAPID DRUG SCREEN, [id number] 07:54:00 Test Item Value Reference Range Interpretation [...] situations. Chain of custody not maintained. Some nqxj-yak-pvdhwxh medications, as well as adulterants, may cause inaccurate results. Clinical correlation should be applied. A more comprehensive drug screen or confirmation of a detected drug may be performed upon request. CREATINE KINASE (CK), TOTAL AND [id number] 07:47:00 Test Item Value Reference Range Interpretation Comments CREATINE KINASE TOTAL (BEAKER) 161 U/L 29-200 (test code = 380) CREATINE KINASE-MB (BEAKER) (test 4.9 ng/mL 0.0-6.6 code = 750) CREATINE KINASE-MB INDEX (BEAKER) 3.0 % (test code = 395) CK-MB Reference Range:<6.7 Normal6.7-10.0 Borderline>10.0 AbnormalTROPONIN [id number] 07:47:00 Test Item Value Reference Range Interpretation [...] acute neurological disease, and persistent tachyarrhythmia.BASIC METABOLIC [id number] 04:56:00 Test Item Value Reference Range Interpretation [...] (test code = 413) CT, BRAIN, WITHOUT [id number] 21:00:00FINAL REPORT CT, BRAIN, WITHOUT CONTRAST INDICATION: [...] MDReport Verified Date/Time: 05/08/2018 21:00:20 Reading Location: [address] Reading Room B-TYPE NATRIURETIC FACTOR (BNP)2018-05-08 19:03:00 Test Item Value Reference Range Interpretation Comments B-TYPE NATRIURETIC PEPTIDE (BEAKER) 254 pg/mL 0-100 H (test code = 700) CREATINE KINASE (CK), TOTAL AND [id number] 19:02:00 Test Item Value Reference Range Interpretation Comments CREATINE KINASE TOTAL (BEAKER) 150 U/L 29-200 (test code = 380) CREATINE KINASE-MB (BEAKER) (test 5.5 ng/mL 0.0-6.6 code = 750) CREATINE KINASE-MB INDEX (BEAKER) 3.7 % (test code = 395) CK-MB Reference Range:<6.7 Normal6.7-10.0 Borderline>10.0 AbnormalTROPONIN [id number] 19:02:00 Test Item Value Reference Range Interpretation [...] acute neurological disease, and persistent tachyarrhythmia.BASIC METABOLIC [id number] 18:32:00 Test Item Value Reference Range Interpretation [...] PATIEN TS. CBC W/PLT COUNT & AUTO [id number] 18:28:00 Test Item Value Reference Range Interpretation [...] 0-1 PERCENT (BEAKER) (test code = 2801) [id number] 18:15:00 Test Item Value Reference Range Interpretation Comments PARTIAL THROMBOPLASTIN TIME 30.0 seconds 22.5-36.0 (BEAKER) (test code = 760) Prior to initiating heparinXR Fluoroscopy in Imaging per [id number] 12:25:17 Patient: ALHAJI FARAH Date/Time04/05/2018 11:30 CDTReason [...]
--- OUTSIDE RECORDS SUMMARY | 2020-11-27 17:13 | XMS REPORT ---
:1960 Author Organization [facility] Address [address] [place], [address] [place] [address] Care Team Providers Name Role Phone Heard Unavailable [phone] PROBLEMS Type Condition ICD9-CM CHC21-OA Onset Condition SNOMED Code Notes Code Code Dates Status Problem Abdominal pain R10.9 Active 71445663 Problem Atrial fibrillation, I48.91 Active 29216674 unspecified type Problem Left foot pain M79.672 Active 460560566548969 Problem Hypertensive emergency I16.1 Active 393107341 565692 Problem Closed displaced S92.312S Active 65929441 fracture of first metatarsal bone of left foot, sequela Problem Chest pain, R07.9 Active 46263858 unspecified type Problem History of coronary Z86.79 Active 933195872 artery disease Problem Chronic hepatitis C B18.2 Active 378415164 without hepatic coma Problem Hyperlipidemia E78.5 Active 08252244 Problem Simple chronic J41.0 Active 54402631 bronchitis Problem Pure E78.00 Active 456384206 hypercholesterolemia Problem HTN (hypertension) I10 Active 70539076 Problem Essential hypertension I10 Active 70781532 Problem Lumbar degenerative M51.36 Active 96198175 disc disease Problem Constipation, K59.00 Active 92765103 unspecified constipation type Problem 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 Active 8202642050 107 disease of [place] coronary artery without angina pectoris Problem Follow-up exam Z09 Active 146734677 Problem Bipolar 1 disorder F31.9 Active 541599045 Problem Chronic depressive F34.1 Active 42900883 person Problem Hospital discharge Z09 Active 787947087 follow-up Problem Pulmonary emphysema, J43.9 Active 43965492 unspecified emphysema type Problem Symptomatic I95.89 Active 04714085 hypotension Problem Acute myocardial I21.4 Active 941717526 infarction, subendocardial infarction Problem Other specified N39.498 Active 359987370 urinary incontinence Problem Chronic generalized R52 Active 84531632 pain Problem Complaints of memory R41.3 Active 416131576 disturbance Problem Primary insomnia F51.01 Active 4300884 Problem Cirrhosis of liver K74.60 Active 770499071 without ascites, unspecified hepatic cirrhosis type Problem Benign prostatic N40.1 Active 52483782230047 hyperplasia with lower urinary tract symptoms Problem Panic attacks F41.0 Active 593029631 Problem Other chronic pain G89.29 Active 10519838 Problem Cigarette nicotine F17.210 Active 03582763 dependence without complication Problem Chronic obstructive J44.9 Active 29854863 pulmonary disease, unspecified COPD type Problem Dementia without F03.90 Active 88752546 behavioral disturbance, unspecified dementia type Problem Elevated blood R03.0 Active 65352028 pressure reading Problem 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 817586697 major depression Problem 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 Active 94564808 urgency Problem Arteriosclerotic I25.10 Active 053735672289937 cardiovascular disease (ASCVD) Problem Acute on chronic I50.9 Active 223719887 congestive heart failure, unspecified heart failure type Problem Hypertensive urgency I16.0 Active 258716926 ALLERGIES Allergen (clinical Drug/Non Drug Allergy Reaction Allergy Type Onse t Date Status drug ingredient) documented on EMR penicillin rash Drug Allergy Active Cephalosporins vomiting Non Drug Active Allergy ENCOUNTERS from 1960 to 2020-11-16 Encounter Location Date Provider Diagnosis [facility] [address] [place], [place] [facility] [address] ; [place] [address] [place] [address] F31.9 ; Lumbar degenerative di sc disease M51.36 ; Low ba ck pain M54.5 ; Other c hronic pain G89.29 ; A trial fibrillation, u nspecified type I48.91 ; C hronic obstructive pul monary disease, unspec ified COPD type J44.9 ; Ac [place] on chronic congest alberto heart failure, unspec ified heart failure t ype I50.9 ; Arteriosclero tic cardiovascular disease (ASCVD) I25.10 ; Chronic hepatitis C wit hout hepatic coma B1 8.2 and Screening for d iabetes mellitus Z13.1 IMMUNIZATIONS No Information SOCIAL HISTORY Tobacco Use: [...] No Information VITAL SIGNS Height 69.00 in Oct, Weight 157.0 lbs Oct, Temperature 97.6 degrees Fahrenheit Oct, BMI 23.18 kg/m2 Oct, Oximetry 99 % Oct, Respiratory Rate 16 /min Oct, Blood pressure systolic 130 mm Hg Oct, Blood pressure diastolic 69 mm Hg Oct, MEDICATIONS Medication SIG (Take, Route, Notes Start Date End Date Status Frequency, Duration) Clonidine HCl 0.2 MG 1 tablet twice x 1 Mar, Active week then 1 tablet Orally twice a day [place] Carbonate 600 MG 1 capsule at Active bedtime Orally Once a day for 90 days Losartan Potassium 25 MG 1 tablet Orally Active Once a day for 30 day(s) Ipratropium Sebastian 0.02 % as directed February, Active Inhalation 1 vial Three times a day for 90 days Tarrant Carbonate 600 MG TAKE 1 CAPSULE BY Active MOUTH DAILY AT BEDTIME for 90 Isosorbide Mononitrate ER 30 1 tablet in the Active MG morning Orally Once a day for 30 day(s) [place] 10-325 MG 1 tablet as needed A ctive Orally every 6 hrs Aspir-81 81 MG 1 tablet Orally Activ e Once a day for 30 day(s) Amlodipine Besylate 10 MG 1 tablet Orally Jul, Active Once a day for 90 days Ketamine HCl - as directed Active Citalopram Hydrobromide 20 1 tablet Orally Active MG Once a day for 90 days HydrALAZINE HCl 25 MG 1 tablet with food Active Orally every 12 hrs Hydrochlorothiazide 25 MG 1 tablet in the Active morning Orally Once a day for 30 day(s) Gabapentin 600 MG 1 tablet Orally Ac tive three times a day Dulera 100-5 MCG/ACT 2 puffs Inhalation Unknown Twice a day for 90 days Ranolazine ER 500 MG 2 tablet Orally Active Twice a day Carvedilol 25 MG as directed Orally Active Amitriptyline HCl 50 MG 1 tablet Orally Not-Taking Once a day for 30 days Amiodarone HCl 200 MG 1 tablet Orally Unknown Once a day Lactulose 20 GM/30ML 30 ml Orally Once Active a day for 90 days Lisinopril 20 MG 1 tablet Orally Act alberto Once a day Albuterol Sulfate (2.5 inhale 1 vial by February, Active MG/3ML) 0.083% mouth via nebulizer 3 times a day for 90 days Atorvastatin Calcium 20 MG 1 tablet Orally Active Once a day for 30 day(s) Zofran 4 MG as needed for Dec, Active nausea Orally every 8hrs prn nausea for 10 days PROCEDURES No Information RESULTS No Results REASON FOR VISIT routine f/u, declined TV, chronic back pain needs referral to pain management, bipolar needs refillsof meds, htn, hld, cad,chf MEDICAL (GENERAL) HISTORY Type Description Date Medical History HTN (hypertension) Medical History Hyperlipidemia Medical History Arteriosclerotic cardiovascular disease (ASCVD) Medical History Chronic generalized pain Medical History Chronic depressive person Medical History Abdominal pain Medical History Follow-up exam Medical History Acute myocardial infarction, subendocard ial infarction Surgical History cholecystectomy 2014 Surgical History rt lower leg 1992 Surgical History lower back 2011 Surgical History fusin on 2 vertebras 2014 Goals Section No Information Health Concerns No Information MEDICAL EQUIPMENT No Information MENTAL STATUS No Information FUNCTIONAL STATUS No Information ASSESSMENTS Encounter Date Diagnosis Assessment Treatment Notes Treatment Notes Clinical Notes Oct, Essential controlled hypertension (ICD-10 maintain low salt - I10) diet adhere to meds, pain control Oct, Bipolar 1 disorder continue current (ICD-10 - F31.9) meds daily. Avoid caffeine. Make sure to exercise daily, take deep breaths, meditate, take frequent breaks . Take yourself away from the situation causing anxiety and stress by going for a 10-15 minute walk. -- need to f/u with psychiatry Oct, Lumbar degenerative Patient needs disc disease (ICD-10 referra l to - M51.36) Dr.Jeffrey Leyva [facility] for continuity of care Oct, Low back pain (ICD-10 continue care with - M54.5) pain management, per patient ketamine is really effective for pain control. Oct, Other chronic pain (ICD-10 - G89.29) Oct, Atrial fibrillation, continue current unspecified type anticoagulation. (ICD-10 - I48.91) monitor HR. continue f/u with cardiology. Go to ER if your HR is above 130 consistently if you feel dizziness or sob Oct, Chronic obstructive continue current pulmonary disease, inhalers/ unspecified COPD type nebulizer and (ICD-10 - J44.9) continuous oxygen. if you develop sob or cough with increase phlegm or sputum changes from clear to yellow or green or develop fever above 100.4F call PCP or go to ER. Quit smoking and avoid exacerbating factors including second hand smoke or fumes. Oct, Acute on chronic -low salt diet. congestive heart -limit water failure, unspecified intake to no more heart failure type than 1.5L per day (ICD-10 - I50.9) - Weigh yourself daily. If increase swelling in legs and ankles or weight gain of more than 2-3 lbs in one day then call clinic because you are likely retaining fluid. - Go to ER if you develop any sob or chest pain. -May increase lasix for about 3 days to decrease edema. Oct, Arteriosclerotic cardiovascular disease (ASCVD) (ICD-10 - I25.10) Oct, Chronic hepatitis C avoid alcholol, without hepatic coma excess tylenol no (ICD-10 - B18.2) more than 2000mg a day. Oct, Screening for diabetes mellitus (ICD-10 - Z13.1) Oct, Other -- Medications reviewed and updated. -- Dietary and Lifestyle modifications discussed with patient regarding low fat low salt diet diet, exercise and weight managemen t. -- Treatment options, risks and benefits, side effects reviewed in detail. Patient accepts risk. -- Advised on signs/symptoms to monitor and when to call clinic and/or visit the nearest ER. Patient verbalized understanding and agreed with plan. >50% of the time was spent counseling and coordinating care including but not limited to discussion of test results, diagnostic or treatment recommendations, prognosis, risks and benefits of management options, instructions, education, compliance and or risk reduction. PLAN OF TREATMENT Medication Medication Name Sig Start Date Stop Date Ipratropium Sebastian 0.02 % as directed Inhalation 1 vial February, Three times a day for 90 days Albuterol Sulfate (2.5 MG/3ML) inhale 1 vial by mouth via February 0.083% nebulizer 3 times a day for 90 days Tarrant Carbonate 600 MG 1 capsule at bedtime Orally Once a day for 90 days Treatment Notes Assessment Notes Clinical Notes Essential hypertension controlled maintain low salt diet adhere to meds, pain control Bipolar 1 disorder continue current med s daily. Avoid caffein e. Make sure to exercise jamel ly, take deep breaths, meditate, take frequ ent breaks. Take yoursel f away from the situation c ausing anxiety and stress b y going for a 10-15 minute w alk.-- need to f/u with psy chiatry Lumbar degenerative disc Patient needs r eferral to disease Dr.Jeffrey Leyva [facility] for matheus nuity of care Low back pain continue care with pain management, per patient ketamine is really effective for pain control. Atrial fibrillation, continue current unspecified type anticoagulation. monitor HR. continue f/u with cardiology. Go to ER if your HR is above 130 consistently if you feel dizziness or sob Chronic obstructive pulmonary continue current inhalers/ disease, unspecified COPD nebulizer and continuous type oxygen. if you develop sob or cough with increase phlegm or sputum changes from clear to yellow or green or develop fever above 100.4F call PCP or go to ER. Quit smoking and avoid exacerbating factors including second hand smoke or fumes. Acute on chronic congestive -low salt diet.-limit water heart failure, unspecified intake to no more than 1.5L heart failure type per day- Weigh yourself daily. If increase swelling in legs and ankles or weight gain of more than 2-3 lbs in one day then call clinic because you are likely retaining fluid.- Go to ER if you develop any sob or chest pain.-May increase lasix for about 3 days to decrease edema. Chronic hepatitis C without avoid alcholol, excess hepatic coma tylenol no more than 2000mg a day. Treatment Notes Test Name Order Date Lipid Panel w/ Chol/HDL Ratio 2020-11-16 Hemoglobin A1c 2020-11-16 Ammonia, Plasma 2020-11-16 Comp. Metabolic Panel (14) (CMP) 2020-11-16 CBC With Differential/Platelet 2020-11-16 Next Appt Details 3 Months labs 1 week prior Reason: Provider Name:Allison Heard 2021-02-05 08:4 5:00 AM, [address], [place], [address], Provider Name:Allison Heard 2021-02-13 01:4 0:00 PM, [address], [place], [address], Insurance Providers Payer Name Payer Payer Insured Patient Coverage Coverage End Address Phone Name Relationship to Start Date Alvarez e Insured [facility] [phone] Jamil Macias self [address] [facility] [id number] [place] [address] D MEDICARE [facility] [phone]
[2020-11-27 17:59] LABS: Absolute Lymphocytes (CBC) 2.6 K/uL (0.7-4.9); Basophils % 0.7 % (0-1.3); Hematocrit 44.2 % (39.6-49.0); Lymphocytes % 19.2 % (15.3-44.8); MPV 9.9 fL (7.6-11.3); RBC Red Blood Cell Count 4.89 M/uL (4.33-5.43)
[2020-11-27 18:06] LABS: Protime INR 1.2
[2020-11-27] MEDS ORDERED: HYDRALAZINE HCL 20 MG/ML VIAL ONE (18:17)
--- NOTE | 2020-11-27 18:23 | RAD REPORT ---
EXAM DESCRIPTION: CT - Head Brain Wo Cont - 11/27/2020 6:12 pm CLINICAL HISTORY: Headache COMPARISON: April 2020 TECHNIQUE: Computed axial tomography of the head was obtained. IV contrast was not requested. All CT scans are performed using dose optimization technique as appropriate and may include automated exposure control or mA/KV adjustment according to patient size. FINDINGS: An intracranial bleed is not seen . The ventricles are normal in caliber. No extra-axial fluid collection is noted. Mild low-density areas within periventricular, deep and subcortical white matter likely represent isc hemic changes secondary to small vessel disease. Chronic right maxillary sinusitis again demonstrated IMPRESSION: No acute intracranial abnormality is seen. If patient's symptoms persist MRI of the bra in would be recommended.
[2020-11-27] MEDS ORDERED: AMLODIPINE 10 MG TAB ONE (18:34)
--- NOTE | 2020-11-27 18:47 | RAD REPORT ---
EXAM DESCRIPTION: Jose Single View11/27/2020 6:25 pm CLINICAL HISTORY: Chest pain COMPARISON: 2019 FINDINGS: The lungs appear clear of acute infiltrate. The heart is normal size. Postsurgical change s involve the chest IMPRESSION: No acute abnormalities displayed
[2020-11-27] MEDS ORDERED: ONDANSETRON 4 MG/2 ML VIAL ONE ×2 (18:48→19:58)
[2020-11-27 19:29] LABS: Albumin 4.5 g/dL (3.4-5.0); Bilirubin Direct 0.2 mg/dL (0-0.2); Bilirubin Total 0.6 mg/dL (0.2-1.0); Magnesium 2.7 mg/dL (1.8-2.4); Potassium 3.2 mmol/L (3.5-5.1); Protein, Total 9.1 g/dL (6.4-8.2); Troponin (Emerg Dept Use Only) 0.04 ng/mL (0.0-0.045)
--- NOTE | 2020-11-27 19:45 | EDPHYS ---
Physician Documentation [facility] Name: Blayne Macias Age: 59 yrs Sex: Male : 1960 Arrival Date: 11/27/2020 Time: 17:11 Bed 4 Private MD: ED Physician Prasanth Collins HPI: 11/27 21:42 This 59 yrs old Male presents to ER via Ambulatory with complaints of Chest kb Pain, Headache. 21:42 The patient has experienced similar episodes in the past. The patient has not recently kb seen a physician. Pt states he came in for high blood pressure. States he started having chest pain and a headache today so he checked it and it was over 200/100. 21:44 The patient has elevated blood pressure and discovered this at home, with a home kb device. Onset: The symptoms/episode began/occurred 3 hour(s) ago. Associated signs and symptoms: Pertinent positives: chest pain, headache. Severity of symptoms: At its worst the blood pressure was severe. Historical: - Allergies: 17:32 Codeine; ll1 17:32 PENICILLINS; ll1 17:58 Morphine; vg1 - Home Meds: 11/28 11:10 clonidine HCl 0.2 mg Oral tab Q6h prn SBP>180 [Active]; lithium carbonate 600 mg Oral sv cap 1 cap nightly [Active]; citalopram 20 mg tab 1 tab once daily [Active]; potassium chloride 20 mEq Oral cpER 1 tab once daily [Active]; hydrocodone bitartrate oral 30 mg Q12h oral [Active]; losartan 25 mg Oral tab 1 tab once daily [Active]; carvedilol 25 mg Oral tab 1 tab 2 times per day [Active]; Lasix 40 mg Oral tab 1 tab 2 times per day [Active]; isosorbide mononitrate 60 mg Oral Tb24 1 tab once daily [Active]; clopidogrel 75 mg Oral tab 1 tab once daily [Active]; atorvastatin 20 mg Oral tab 1 tab once daily [Active]; amlodipine 10 mg tab 1 tab once daily [Active]; amiodarone 200 mg Oral tab 0.5 tab 2 times per day [Active]; hydralazine 50 mg Oral tab three times a day [Active]; aspirin 81 mg Oral chew 1 tab once daily [Active]; - PMHx: 02/03 17:32 COPD; Cirrhosis; Back pain; chronic back pain; Atrial Fib; High Cholesterol; CHF; ll1 Hepatitis; Hypertension; CAD; Bipolar disorder; "electrical stimulator"; Pneumonia; - PSHx: 17:32 Cholecystectomy; ll1 - Immunization history:: Flu vaccine is up to date. - Social history:: Smoking status: Patient reports the use of cigarette tobacco products, smokes one-half pack cigarettes per day. ROS: 21:41 Constitutional: Negative for fever, chills, and weight loss, ENT: Negative for injury, kb pain, and discharge, Abdomen/GI: Negative for abdominal pain, nausea, vomiting, diarrhea, and constipation, Back: Negative for injury and pain, MS/Extremity: Negative for injury and deformity, Skin: Negative for injury, rash, and discoloration. 21:41 Cardiovascular: Positive for chest pain, Negative for edema, orthopnea, palpitations, paroxysmal nocturnal dyspnea. 21:41 Respiratory: Positive for shortness of breath. 21:41 Neuro: Positive for headache. Exam: 21:41 Constitutional: This is a well developed, well nourished patient who is awake, alert, kb and in no acute distress. Head/Face: Normocephalic, atraumatic. Chest/axilla: Normal chest wall appearance and motion. Nontender with no deformity. No lesions are appreciated. Cardiovascular: Regular rate and rhythm with a normal S1 and S2. No gallops, murmurs, or rubs. Normal PMI, no JVD. No pulse deficits. Respiratory: Lungs have equal breath sounds bilaterally, clear to auscultation and percussion. No rales, rhonchi or wheezes noted. No increased work of breathing, no retractions or nasal flaring. Abdomen/GI: Soft, non-tender, with normal bowel sounds. No distension or tympany. No guarding or rebound. No evidence of tenderness throughout. Skin: Warm, dry with normal turgor. Normal color with no rashes, no lesions, and no evidence of cellulitis. MS/ Extremity: Pulses equal, no cyanosis. Neurovascular intact. Full, normal range of motion. Neuro: Awake and alert, GCS 15, oriented to person, place, time, and situation. Cranial nerves II-XII grossly intact. Motor strength 5/5 in all extremities. Sensory grossly intact. Cerebellar exam normal. Normal gait. Vital Signs: 17:30 BP 239 / 145; Pulse 78; Resp 24; Temp 98.0; Pulse Ox 99% ; Weight 72.57 kg; Height 5 ll1 ft. 9 in. (175.26 cm); Pain 8/10; 17:53 BP 252 / 126; Pulse 87; Resp 14; Pulse Ox 97% on R/A; vg1 18:07 BP 235 / 126; Pulse 72; Resp 24; Pulse Ox 97% on R/A; vg1 19:00 BP 213 / 96; Pulse 66; Resp 20; Pulse Ox 98% on R/A; vg1 19:20 BP 212 / 108; Pulse 90; Resp 26; Pulse Ox 98% on R/A; vg1 19:40 BP 215 / 107; Pulse 76; Resp 14; Pulse Ox 97% on R/A; vg1 20:00 BP 238 / 113 Supine; Pulse 66; Resp 20; Pulse Ox 96% on R/A; vg1 20:20 BP 233 / 120 Supine; Pulse 75; Resp 18; Pulse Ox 96% on R/A; vg1 17:30 Body Mass Index 23.63 (72.57 kg, 175.26 cm) ll1 MDM: 17:41 Patient medically screened. kb 19:44 Data reviewed: vital signs, nurses notes. Data interpreted: Pulse oximetry: on room air kb is 97 %. Interpretation: normal. Counseling: I had a detailed discussion with the patient and/or guardian regarding: the historical points, exam findings, and any diagnostic results supporting the discharge/admit diagnosis, lab results, radiology results, the need for further work-up and treatment in the hospital. Physician consultation: Gilberto EM was contacted at 19:45, regarding admission, to the telemetry unit. patient's condition, and will see patient in ED, immediately. 11/27 17:42 Order name: Basic Metabolic Panel kb 11/27 17:42 Order name: CBC with Diff kb 11/27 17:42 Order name: LFT's kb 11/27 17:42 Order name: Magnesium kb 11/27 17:42 Order name: NT PRO-BNP kb 11/27 17:42 Order name: PT-INR kb 11/27 17:42 Order name: Troponin (emerg Dept Use Only) kb 11/27 17:45 Order name: Basic Metabolic Panel; Complete Time: 19:39 EDMS 11/27 17:45 Order name: CBC with Automated Diff; Complete Time: 18:14 EDMS 11/27 17:45 Order name: Liver (Hepatic) Function; Complete Time: 19:39 EDMS 11/27 17:45 Order name: Magnesium; Complete Time: 19:39 EDMS 11/27 17:45 Order name: NT PRO-BNP; Complete Time: 19:39 EDMS 11/27 17:45 Order name: Protime (+INR); Complete Time: 18:14 EDMS 11/27 17:45 Order name: Troponin (Emerg Dept Use Only); Complete Time: 19:39 EDMS 11/27 17:42 Order name: XRAY Chest (1 view); Complete Time: 18:49 kb 11/27 17:49 Order name: CT Head Brain wo Cont; Complete Time: 18:25 kb 11/27 19:55 Order name: SARS-COV-2 RT PCR; Complete Time: 20:03 EDMS 11/27 23:15 Order name: Troponin I EDMS 11/28 06:27 Order name: CBC with Automated Diff EDMS 11/28 06:34 Order name: Comprehensive Metabolic Panel EDMS 11/28 06:34 Order name: Troponin I EDMS 11/28 06:34 Order name: Lipid Profile EDMS 11/28 06:34 Order name: T4 Free EDMS 11/28 06:34 Order name: Magnesium EDMS 11/28 06:34 Order name: Thyroid Stimulating Hormone EDMS 11/27 17:42 Order name: EKG; Complete Time: 17:44 kb 11/27 17:42 Order name: Cardiac monitoring; Complete Time: 17:48 kb 11/27 17:42 Order name: EKG - Nurse/Tech; Complete Time: 17:48 kb 11/27 17:42 Order name: IV Saline Lock; Complete Time: 17:58 kb 11/27 17:42 Order name: Labs collected and sent; Complete Time: 17:58 kb 11/27 17:42 Order name: O2 Per Protocol; Complete Time: 17:48 kb 11/27 17:42 Order name: O2 Sat Monitoring; Complete Time: 17:48 kb 11/27 18:04 Order name: Labs - recollect needed: recollect c7; Complete Time: 18:30 bd 11/27 18:42 Order name: Labs - recollect needed; Complete Time: 19:15 sv Administered Medications: 18:07 Drug: hydrALAZINE 10 mg Route: IV; Rate: calculated rate; Site: left wrist; vg1 19:42 Follow up: Response: No adverse reaction; IV Status: Completed infusion vg1 18:30 Drug: Norvasc 10 mg Route: PO; vg1 19:42 Follow up: Response: No adverse reaction vg1 18:34 Drug: Zofran (Ondansetron) 4 mg Route: IVP; Site: left wrist; vg1 19:42 Follow up: Response: Nausea unchanged vg1 19:46 Drug: Zofran (Ondansetron) 4 mg Route: IVP; Site: left wrist; vg1 19:55 Drug: carvedilol 25 mg Route: PO; vg1 20:26 Follow up: Response: No adverse reaction vg1 20:03 Drug: morphine 4 mg {Note: rass0.} Route: IVP; Site: left wrist; vg1 20:25 Drug: Pepcid 20 mg Route: IVP; Site: left wrist; vg1 Disposition: 11/29 06:02 Co-signature as Attending Physician, Prasanth Collins MD I agree with the assessment and kdr plan of care. Disposition: 11/27/20 19:44 Hospitalization ordered by Juwan James for Observation. Preliminary diagnosis are Chest pain, unspecified, Essential (primary) hypertension. - Bed requested for [facility] ER HOLD. - Status is Observation. sv - Condition is Stable. - Problem is new. - Symptoms are unchanged. Signatures: Dispatcher [employer] EDOH Lisa Love, HAT MENDER-C HAT MENDER-Letty Perez Key Mitchell, RN Nara Rod RN DIANA Prasanth Collins MD MD kdr Attema, Lee, HAT MENDER-C HAT MENDER-Fidelina Berry, RN RN vg1 Vinnie Martin, RN RN ll1 Corrections: (The following items were deleted from the chart) 11/27 19:08 18:33 CORONAVIRUS+MR.LAB.BRZ ordered. [facility] EDOH 20:35 19:44 Hospitalization Ordered by Juwan James DO for Observation. Preliminary diagnosis is Chest pain, unspecified; Essential (primary) hypertension. Bed requested for Telemetry/MedSurg (observation). Status is Observation. Condition is Stable. Problem is new. Symptoms are unchanged. kb 11/28 12:09 11/27 20:35 11/27/2020 19:44 Hospitalization Ordered by Juwan James DO for sv Observation. Preliminary diagnosis is Chest pain, unspecified; Essential (primary) hypertension. Bed requested for [facility] ER HOLD. Status is Observation. Condition is Stable. Problem is new. Symptoms are unchanged. dw
--- NOTE | 2020-11-27 19:45 | ER ---
Nurse's Notes [facility] Name: Blayne Macias Age: 59 yrs Sex: Male : 1960 Arrival Date: 11/27/2020 Time: 17:11 Bed 4 Private MD: Diagnosis: Chest pain, unspecified;Essential (primary) hypertension Presentation: 11/27 17:30 Chief complaint: Patient states: CP, NAVARRO, SOB for 3 hours. Coronavirus screen: Client ll1 denies travel out of the [place] in the last 14 days. cough unrelated to allergies, difficulty breathing, shortness of breath, Client presents with at least one sign or symptom that may indicate coronavirus-19. Standard/surgical mask placed on the client. Ebola Screen: Patient denies travel to an Ebola-affected area in the 21 days before illness onset. Initial Sepsis Screen: Does the patient meet any 2 criteria? RR > 20 per min. No. Patient's initial sepsis screen is negative. Does the patient have a suspected source of infection? Yes: Productive cough/pneumonia. Risk Assessment: Do you want to hurt yourself or someone else? Patient reports no desire to harm self or others. Onset of symptoms was November 27, 2020. 17:30 Method Of Arrival: Ambulatory ll1 17:30 Acuity: SENTHIL 2 ll1 Historical: - Allergies: 17:32 Codeine; ll1 17:32 PENICILLINS; ll1 17:58 Morphine; vg1 - Home Meds: 11/28 11:10 clonidine HCl 0.2 mg Oral tab Q6h prn SBP>180 [Active]; lithium carbonate 600 mg Oral sv cap 1 cap nightly [Active]; citalopram 20 mg tab 1 tab once daily [Active]; potassium chloride 20 mEq Oral cpER 1 tab once daily [Active]; hydrocodone bitartrate oral 30 mg Q12h oral [Active]; losartan 25 mg Oral tab 1 tab once daily [Active]; carvedilol 25 mg Oral tab 1 tab 2 times per day [Active]; Lasix 40 mg Oral tab 1 tab 2 times per day [Active]; isosorbide mononitrate 60 mg Oral Tb24 1 tab once daily [Active]; clopidogrel 75 mg Oral tab 1 tab once daily [Active]; atorvastatin 20 mg Oral tab 1 tab once daily [Active]; amlodipine 10 mg tab 1 tab once daily [Active]; amiodarone 200 mg Oral tab 0.5 tab 2 times per day [Active]; hydralazine 50 mg Oral tab three times a day [Active]; aspirin 81 mg Oral chew 1 tab once daily [Active]; - PMHx: 03 17:32 COPD; Cirrhosis; Back pain; chronic back pain; Atrial Fib; High Cholesterol; CHF; ll1 Hepatitis; Hypertension; CAD; Bipolar disorder; "electrical stimulator"; Pneumonia; - PSHx: 17:32 Cholecystectomy; ll1 - Immunization history:: Flu vaccine is up to date. - Social history:: Smoking status: Patient reports the use of cigarette tobacco products, smokes one-half pack cigarettes per day. Screenin:57 Abuse screen: Denies threats or abuse. Nutritional screening: No deficits noted. vg1 Tuberculosis screening: No symptoms or risk factors identified. Fall Risk No fall in past 12 months (0 pts). No secondary diagnosis (0 pts). IV access (20 points). Ambulatory Aid- None/Bed Rest/Nurse Assist (0 pts). Gait- Normal/Bed Rest/Wheelchair (0 pts) Mental Status- Oriented to own ability (0 pts). Total Kang Fall Scale indicates No Risk (0-24 pts). Assessment: 17:53 General: Appears uncomfortable, slender, Behavior is cooperative, crying, Reports. vg1 Pain: Complains of pain in chest and headache Pain currently is 8 out of 10 on a pain scale. Pain began 3 hours ago. Neuro: Level of Consciousness is awake, alert, obeys commands, Oriented to person, place, time, situation. Cardiovascular: Patient's skin is warm and dry. Respiratory: Airway is patent Respiratory effort is even, unlabored, Respiratory pattern is regular, symmetrical. GI: Pt is actively vomiting clear fluid, Reports nausea. : No signs and/or symptoms were reported regarding the genitourinary system. EENT: No signs and/or symptoms were reported regarding the EENT system. Derm: Skin is diaphoretic, Skin is pink, warm \\T\\ dry. Musculoskeletal: Circulation, motion, and sensation intact. 18:00 Pain: Pain radiates to left arm. vg1 19:53 Reassessment: Patient appears in no apparent distress at this time. No changes from vg1 previously documented assessment. Patient and/or family updated on plan of care and expected duration. Pain level reassessed. Patient is alert, oriented x 3, equal unlabored respirations, skin warm/dry/pink. 19:56 Reassessment: Received VO from Gilberto BUENO to administer 4mg of Morphine IVP x1. vg1 Vital Signs: 17:30 BP 239 / 145; Pulse 78; Resp 24; Temp 98.0; Pulse Ox 99% ; Weight 72.57 kg; Height 5 ll1 ft. 9 in. (175.26 cm); Pain 8/10; 17:53 BP 252 / 126; Pulse 87; Resp 14; Pulse Ox 97% on R/A; vg1 18:07 BP 235 / 126; Pulse 72; Resp 24; Pulse Ox 97% on R/A; vg1 19:00 BP 213 / 96; Pulse 66; Resp 20; Pulse Ox 98% on R/A; vg1 19:20 BP 212 / 108; Pulse 90; Resp 26; Pulse Ox 98% on R/A; vg1 19:40 BP 215 / 107; Pulse 76; Resp 14; Pulse Ox 97% on R/A; vg1 20:00 BP 238 / 113 Supine; Pulse 66; Resp 20; Pulse Ox 96% on R/A; vg1 20:20 BP 233 / 120 Supine; Pulse 75; Resp 18; Pulse Ox 96% on R/A; vg1 17:30 Body Mass Index 23.63 (72.57 kg, 175.26 cm) ll1 ED Course: 17:11 Patient arrived in ED. mr 17:28 Fidelina Sandoval, RN is Primary Nurse. vg1 17:31 Triage completed. ll1 17:32 Arm band placed on Patient placed in an exam room, on a stretcher. ll1 17:41 [facility]-C [facility]. kb 17:41 Prasanth Collins MD is Attending Physician. kb 17:50 Missed attempt(s): 20 gauge in right Bleeding controlled, band aid applied, catheter jp3 tip intact. Patient maintains SpO2 saturation greater than 95% on room air. 17:57 Patient has correct armband on for positive identification. Placed in gown. Bed in low vg1 position. Call light in reach. Side rails up X 1. 17:57 manager lsw on. Pulse ox on. NIBP on. vg1 17:57 Patient maintains SpO2 saturation greater than 95% on room air. vg1 17:57 Initial lab(s) drawn, by me, sent to lab. EKG done, by ED staff, reviewed by Lisa EM. Inserted saline lock: 24 gauge in left wrist, using aseptic technique. Blood collected. 18:[address] via stretcher. vg1 18:12 CT Head Brain wo Cont In Process Unspecified. EDMS 18:25 XRAY Chest (1 view) In Process Unspecified. EDMS 18:30 Lab(s) recollected, by me, sent to lab. vg1 18:55 COVID swab sent to lab. jp3 19:05 Lab(s) recollected, by phlebotomy lab assistant, sent to lab. jp3 19:44 Juwan James DO is Hospitalizing Provider. kb Administered Medications: 18:07 Drug: hydrALAZINE 10 mg Route: IV; Rate: calculated rate; Site: left wrist; vg1 19:42 Follow up: Response: No adverse reaction; IV Status: Completed infusion vg1 18:30 Drug: Norvasc 10 mg Route: PO; vg1 19:42 Follow up: Response: No adverse reaction vg1 18:34 Drug: Zofran (Ondansetron) 4 mg Route: IVP; Site: left wrist; vg1 19:42 Follow up: Response: Nausea unchanged vg1 19:46 Drug: Zofran (Ondansetron) 4 mg Route: IVP; Site: left wrist; vg1 19:55 Drug: carvedilol 25 mg Route: PO; vg1 20:26 Follow up: Response: No adverse reaction vg1 20:03 Drug: morphine 4 mg {Note: rass0.} Route: IVP; Site: left wrist; vg1 20:25 Drug: Pepcid 20 mg Route: IVP; Site: left wrist; vg1 Outcome: 19:44 Decision to Hospitalize by Provider. suman 11/28 12:09 Patient left the ED. sv Signatures: Dispatcher [employer] EDLisa Lee FNP-C FNP-Key Flanagan RN RN sv Rivera, Antionette mr ManuelaimeShane jp3 Fidelina Sandoval RN RN vg1 Mario, Lynsay, RN RN ll1 Corrections: (The following items were deleted from the chart) 11/27 19:16 19:13 COVID swab sent to lab. jp3 jp3
[2020-11-27] MEDS ORDERED: carvediloL 6.25 MG TAB ONE (19:56)
[2020-11-27] MEDS ORDERED: MORPHINE 4 MG/ML SYR ONE (20:15)
[2020-11-27] MEDS ORDERED: FAMOTIDINE 20 MG/2 ML VIAL IV ONE (20:33)
--- NOTE | 2020-11-27 20:33 | P.HP ---
Certification for Inpatient Patient admitted to: Observation With expected LOS: <2 Midnights Patient will require the following post-hospital care: None Practitioner: I am a practitioner with admitting privileges, knowledge of patient current condition, hospital course, and medical plan of care. Services: Services provided to patient in accordance with Admission requirements found in Title 42 Section 412.3 of the Code of Federal Regulations Patient History Date of Service: 11/27/20 Primary Care Provider: Dr. Heard, Dr. Jacobs Reason for admission: Hypertensive emergency History of Present Illness: 59-year-old male with history of hypertension, CAD with prior CABG, atrial fibrillation on amiodarone without chronic anticoagulation therapy, CKD 3, hyperlipidemia, bipolar disorder, chronic back pain related to EGD with multiple surgeries, fusions presents the emergency department for hypertension, headache, chest pain. Patient reports that he was out fishing when he began to feel poorly checked his blood pressure reports that those around 185/115, patient began developing chest pain and headache and presented to the emergency department for further evaluation. Patient's blood pressure in the emergency department was somewhere between 230 and 250 systolic, patient has had previous admissions for similar problem. Patient reports that he is taking his oral hypertensive agents and he did take them this morning as well as at lunch. Patient with heart catheterization 04/13 without need for stent in addition to echocardiogram 03/13 demonstrating 65% EF without abnormality. Patient also with nausea and vomiting at this time, given Zofran, Pepcid in the emergency department. Blood pressure refractory to hydralazine IV, have given dose of oral hypertensive agents that he reports that he takes at home. Will restart home medications admit for further evaluation and management. Initial troponin 0.04, patient with headache, chest pain at this time. Allergies Penicillins Allergy (Intermediate, Verified 09/09/20 23:52) Hives/Rash codeine [From Tylenol-Codeine] Allergy (Verified 09/09/20 23:52) Itching morphine Allergy (Verified 09/09/20 23:51) Itching oxycodone Allergy (Verified 09/09/20 23:52) Itching Home Medications: Carvedilol [Coreg] 25 mg PO BID 09/09/20 Furosemide 20 mg PO DAILY 09/09/20 Hydralazine HCl [Apresoline] 50 mg PO TID 09/09/20 Isosorbide Mononitrate [Isosorbide Mononitrate ER] 60 mg PO DAILY 09/09/20 [place] Carbonate [Lithotabs 300MG] 600 mg PO BEDTIME 09/09/20 Losartan Potassium [Cozaar] 50 mg PO DAILY 09/09/20 Nicotine [Nicoderm] 1 patch TD DAILY 09/09/20 Amiodarone HCl 100 mg PO BID 09/10/20 Amlodipine Besylate [Norvasc] 10 mg PO DAILY 09/10/20 Aspirin [Aspirin EC 81 MG] 81 mg PO DAILY 09/10/20 Atorvastatin Calcium [Lipitor] 20 mg PO BEDTIME 09/10/20 Citalopram Hydrobromide [Celexa] 20 mg PO DAILY 09/10/20 Clopidogrel Bisulfate [Plavix] 75 mg PO DAILY 09/10/20 Ondansetron HCl [Zofran] 4 mg PO TID PRN 09/10/20 Pantoprazole Sodium [Protonix] 40 mg PO DAILY 09/10/20 - Past Medical/Surgical History Diabetic: No -: Chronic back pain -: HTN -: CAD, CABG times 2 vessels in December 2015 -: COPD -: Exposure to asbestosis -: Bipolar disorder -: Hyperlipidemia -: Severe sleep apnea -: Chronic pain syndrome -: CHF -: Atrial fibrillation on amiodarone-no anti coagulation therapy -: pneumonia -: Right Leg surgery -: Back surgery -: Cholecystectomy -: Cardiac catheterization 04/13 without stent placement -: CABG- Double bypass 12/2015 -: Neck Surgery -: Cervical fusion -: L4-L5-S1 fusion Psychosocial/ Personal History: Single, Children-1, Work-Disabled due to back. - Family History Mother -: Cancer Father -: Heart disease, Cancer - Social History Smoking Status: Current every day smoker Counseled patient to stop smoking for: less than 10 minutes Smoking therapy provided: Yes Alcohol use: No CD- Drugs: No Caffeine use: No Place of Residence: Home Review of Systems General: Malaise Cardiovascular: Chest Pain Musculoskeletal: Back Pain Neurological: Other (Headache) Physical Examination - Physical Exam General: Alert, In no apparent distress HEENT: Atraumatic, PERRLA, Mucous membr. moist/pink Neck: Supple, 2+ carotid pulse no bruit, No LAD Respiratory: Clear to auscultation bilaterally, Normal air movement Cardiovascular: Regular rate/rhythm, Normal S1 S2 Gastrointestinal: Normal bowel sounds, No tenderness Musculoskeletal: No tenderness Integumentary: No rashes Neurological: Normal speech, Normal strength at 5/5 x4 extr, Normal tone, Normal affect - Studies Laboratory Data (last 24 hrs) 11/27/20 19:02: Sodium 143, Potassium 3.2 L, BUN 15, Creatinine 1.37 H, Glucose 130 H, Magnesium 2.7 H, Total Bilirubin 0.6, AST 21, ALT 17, Alkaline Phosphatase 44 L 11/27/20 17:50: PT 13.8 H, INR 1.20 11/27/20 17:50: WBC 13.80 H, Hgb 14.7, Hct 44.2, Plt Count 263 Assessment and Plan - Plan Assessment Hypertensive emergency with chest pain, headache- underlying primary hypertension uncontrolled Nausea vomiting likely related to GERD/hypertensive emergency Atrial fibrillation not on chronic anticoagulation therapy CAD prior CABG Hyperlipidemia BPD DJD, chronic back pain, chronic neck pain Plan Hypertensive emergency with chest pain, headache- underlying primary hypert ension uncontrolled: Administer oral hypertensive agents, p.r.n. IV medications for blood pressure control, monitor on telemetry. Cardiology consult in place. Home medications patient verbally confirmed ordered. CT head without any acute findings, EKG without any acute changes. Recent heart catheterization/echo/stress test. Multiple admissions with similar complaint, usually blood pressure normalizes overnight. Patient adamant that he does take his oral medications at home. DVT prophylaxis Lovenox 40 mg subcutaneous once daily. Nausea vomiting likely related to GERD/hypertensive emergency: Gain control blood pressure, administer Pepcid/Zofran as needed. Patient will likely need to follow up with GI for further workup and evaluation of this problem if it continues. Atrial fibrillation not on chronic anticoagulation therapy: Continue amiodarone, appreciate further input from cardiology. CAD prior CABG: Continue home medications including aspirin, Plavix. Hyperlipidemia: Lipid panel with morning labs. Continue statin. BPD: Obtain and continue home medications. DJD, chronic back pain, chronic neck pain: During previous admission patient took MS Contin and xtampa, patient reports that he is no longer taking these medications, reports that he sees pain management and he is on no narcotic oral medications at this time. Patient also reports that he is expecting his pain management doctor to prescribe him hydrocodone during the next visit. Patient reports an allergy to morphine and codeine but reports being able to take oral morphine for long periods of time, reports that his reaction is Red spots on his legs. Patient also reports that his codeine allergy only applies to Tylenol with codeine and he can tolerate [place]. Will need to review patient's medications and [employer]. Discharge Plan: Home Plan to discharge in: 24 Hours - Advance Directives Does patient have a Living Will: No Does patient have a Durable POA for Healthcare: No - Code Status/Comfort Care Code Status Assessed: Yes (Full code) Critical Care: No Time Spent Managing Pts Care (In Minutes): 55
[2020-11-27] MEDS: HYDRALAZINE HCL 25 MG TABLET PO SCH (21:03)
[2020-11-27] MEDS ORDERED: LABETALOL 20 MG/4ML SYRINGE IV PRN (21:03)
[2020-11-27] MEDS ORDERED: ONDANSETRON 4 MG/2 ML VIAL IV PRN (21:03)
[2020-11-27] MEDS ORDERED: MORPHINE *EXTENDED RELEASE* 15 MG TAB PO PRN (21:03)
[2020-11-27] MEDS ORDERED: ATORVASTATIN 20 MG TAB PO SCH (21:03)
[2020-11-27] MEDS: FUROSEMIDE 20 MG/ 2ML VIAL IV SCH (21:03)
[2020-11-27] MEDS ORDERED: ATORVASTATIN 20 MG TAB ONE (22:44)
[2020-11-27] MEDS ORDERED: FUROSEMIDE 20 MG/ 2ML VIAL ONE (22:44)
[2020-11-27] MEDS ORDERED: HYDRALAZINE HCL 25 MG TABLET ONE (22:50)
[2020-11-27 23:24] VITALS: BMI 23.6
[2020-11-28] MEDS ORDERED: MORPHINE 15 MG IR TAB PO ONE
[2020-11-28] MEDS ORDERED: MORPHINE 2 MG/ML SYR ONE ×2 (00:22→10:02)
[2020-11-28] MEDS ORDERED: LABETALOL HCL 100 MG/20 ML ONE (00:23)
[2020-11-28] MEDS ORDERED: LABETALOL 20 MG/4ML SYRINGE IV ONE ×2 (00:25→01:28)
[2020-11-28] MEDS ORDERED: ONDANSETRON 4 MG/2 ML VIAL ONE (00:52)
[2020-11-28] MEDS ORDERED: HYDRALAZINE HCL 20 MG/ML VIAL IV ONE (02:22)
[2020-11-28] MEDS ORDERED: ISOSORBIDE MONO SR 60 MG TAB PO ONE ×2 (02:25→03:09)
[2020-11-28] MEDS ORDERED: HYDRALAZINE HCL 20 MG/ML VIAL ONE (03:25)
[2020-11-28] MEDS ORDERED: PROMETHAZINE INJ 25 MG/ML AMP IV ONE (04:10)
[2020-11-28] MEDS ORDERED: PROMETHAZINE INJ 25 MG/ML AMP ONE (04:10)
[2020-11-28] MEDS ORDERED: carvediloL 6.25 MG TAB ONE (05:23)
[2020-11-28] MEDS ORDERED: carvediloL 25 MG TAB PO SCH (06:00)
[2020-11-28 06:24] LABS: Absolute Lymphocytes (CBC) 2.2 K/uL (0.7-4.9); Albumin 4.4 g/dL (3.4-5.0); Basophils % 0.6 % (0-1.3); Bilirubin Total 0.6 mg/dL (0.2-1.0); Hematocrit 44.3 % (39.6-49.0); Lymphocytes % 17.6 % (15.3-44.8); MPV 10.3 fL (7.6-11.3); Magnesium 2.6 mg/dL (1.8-2.4); Potassium 3.4 mmol/L (3.5-5.1); Protein, Total 9.1 g/dL (6.4-8.2); RBC Red Blood Cell Count 4.85 M/uL (4.33-5.43); Troponin I 0.04 ng/mL (0.0-0.045)
[2020-11-28 06:34] LABS: Thyroid Stimulating Hormone 5.2 uIU/mL (0.360-3.740)
[2020-11-28 08:04] VITALS: TEMP 97.1
[2020-11-28] MEDS: HYDRALAZINE HCL 25 MG TABLET PO SCH (08:52)
[2020-11-28] MEDS: FUROSEMIDE 20 MG/ 2ML VIAL IV SCH (08:53)
[2020-11-28 08:54] VITALS: BP 144/89
[2020-11-28] MEDS ORDERED: FUROSEMIDE 20 MG/ 2ML VIAL ONE (08:54)
[2020-11-28] MEDS ORDERED: CLOPIDOGREL 75 MG TABLET ONE (08:54)
[2020-11-28] MEDS ORDERED: AMIODARONE HCL 200 MG TAB ONE (08:54)
[2020-11-28] MEDS ORDERED: ASPIRIN EC 81 MG TAB PO ONE (08:55)
[2020-11-28] MEDS ORDERED: ENOXAPARIN 40 MG/0.4 ML SQ ONE (08:55)
[2020-11-28] MEDS ORDERED: AMLODIPINE 10 MG TAB ONE (08:55)
[2020-11-28] MEDS ORDERED: LOSARTAN POTASSIUM 50 MG TABLET PO SCH (09:00)
[2020-11-28] MEDS ORDERED: CLOPIDOGREL 75 MG TABLET PO SCH (09:00)
[2020-11-28] MEDS ORDERED: ISOSORBIDE MONO SR 30 MG TAB PO SCH (09:00)
[2020-11-28] MEDS ORDERED: ASPIRIN EC 81 MG TAB PO SCH (09:00)
[2020-11-28] MEDS ORDERED: AMLODIPINE 10 MG TAB PO SCH (09:00)
[2020-11-28] MEDS ORDERED: AMIODARONE HCL 200 MG TAB PO SCH (09:00)
[2020-11-28] MEDS ORDERED: FAMOTIDINE 20 MG/2 ML VIAL IV SCH (09:00)
[2020-11-28] MEDS ORDERED: ENOXAPARIN 40 MG/0.4 ML SQ SCH (09:00)
[2020-11-28] MEDS ORDERED: MORPHINE 2 MG/ML SYR IV ONE (10:09)
[2020-11-28] MEDS ORDERED: HOME MED 1 EA UNK (Clonidine Hcl [Catapres*] 0.2 MG Tablet) PO PRN (11:21)
--- NOTE | 2020-11-28 11:31 | P.DS ---
Admission Date: 11/27/20 Discharge Date: 11/28/20 Primary Care Provider: Dr. Heard, Cardiology-[place]; Pain Management-Dr. Cevallos([place]) Disposition: ROUTINE DISCHARGE Discharge Condition: GOOD Reason for Admission: Hypertensive emergency Consultations: none Procedures: Prior Heart cath: Date of Procedure: 04/01/2020 Surgeon: Dr. Froylan Goins Findings: 1. Totally occluded proximal LAD with patent GONZALES to mid to distal portion of the LAD. There is a significant disease in the LAD prior to the bypass, however, it is diffuse and very difficult to access. 2. Mild disease involving the left circumflex artery, has very good flow through it. 3. Severe mid RCA stenosis with patent SVG to distal RCA. 4. Patent GONZALES to LAD. 5. Patent SVG to RCA. Impression: Coronary artery disease as described above. Recommendations: Continued medical management recommended at that time COVID: Negative CXR: COMPARISON: 2019 FINDINGS: The lungs appear clear of acute infiltrate. The heart is normal size. Postsurgical changes involve the chest IMPRESSION: No acute abnormalities displayed CT Head: COMPARISON: 2019 FINDINGS: The lungs appear clear of acute infiltrate. The heart is normal size. Postsurgical changes involve the chest IMPRESSION: No acute abnormalities displayed Medical Problem List: Chest pain with hypertensive urgency and Hypertension Acute on chronic back pain with multiple surgeries including fusions to the cervical/thoracic/lumbar spine seen by pain management Atrial fibrillation not on chronic anti coagulation therapy CAD with prior CABG Hyperlipidemia Bipolar disorder Chronic CHF, daistolic Brief History of Present Illness: 59-year-old male with history of hypertension, CAD with prior CABG, atrial fibrillation on amiodarone without chronic anticoagulation therapy, CKD 3, hyperlipidemia, bipolar disorder, and chronic back pain with multiple surgeries/fusions presents the emergency department for hypertension, headache, chest pain. Patient reports that he was out fishing when he began to feel poorly checked his blood pressure reports that those around 185/115, patient began developing chest pain and headache and presented to the emergency department for further evaluation. Patient also reported pain all over, unable to be controlled. Patient is seen by pain management. Pain Management recently adjusted medications. Patient's blood pressure in the emergency department was somewhere between 230 and 250 systolic, patient has had previous admissions for similar problem. Patient reports that he is taking his oral hypertensive agents and he did take them this morning as well as at lunch. Patient with heart catheterization 04/13 without need for stent in addition to echocardiogram 03/13 demonstrating 65% EF without abnormality. Patient was admitted for further evaluation and treatment. Hospital Course: Patient presented with chest pain. Patient with history of hypertension, hyperlipidemia, CAD with prior CABG. Patient was evaluated in the emergency room. Patient found to have hypertensive urgency. Home medications were restarted. Patient reports compliance with medication. Cardiac enzymes unremarkable. No significant ST changes noted on EKG. Patient was monitored and observed. Blood pressure is now within normal range with Re institution of his blood pressure medications. Prior heart catheterization reviewed. Cardiology recommended continued medical management at that time. Patient currently sees cardiology in [place]. Patient prefers to see Cardiology in [place] instead of inpatient consultation here. Patient without chest pain at this time. At discharge patient continue with aspirin 81 mg daily, Plavix 75 mg daily, Norvasc 10 mg daily, carvedilol 25 mg 1 pill twice daily, losartan 25 mg 1 pill daily, hydralazine 50 mg 1 pill 3 times a day, isosorbide mononitrate ER 60 mg daily, and clonidine 0.2 mg every 6 hr as needed if blood pressure elevated. LDL elevated at 144. Patient previously on Lipitor 20 mg daily. Will recommend to increase Lipitor to 40 mg daily at discharge. 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 Patient with acute on chronic back pain with history of multiple surgeries including fusions to the cervical, thoracic, and lumbar spine. Patient is seen by pain management in [place] by Dr. Cevallos. Patient's prescriptions were evaluated on the [facility] web site. Patient is receiving medications by pain specialist. Medications include ketamine nasal spray and hydrocodone bitratrate ER 30 mg 1 pill twice daily. Patient required IV pain medication. Pain has significantly improved. Patient has follow up with pain management on December 06 to re-evaluate medications. Pain management is adjusting medication for better control as reported by the patient. Overdose could risk lower addressed with patient. Patient understands his risks. Pain management to further address his acute on chronic back pain. Information provided from the [facility] website. Patient with atrial fibrillation not on chronic anti coagulation therapy. Patient stable this time. At discharge patient will continue with current medications as above along with amiodarone 100 mg twice daily.. Patient with bipolar disorder. At discharge patient will continue with his current medications including lithium 600 mg at bedtime, Celexa 20 mg daily. Further adjustment can be done by his PCP or psychiatry. Patient with hyperlipidemia. As mentioned above LDL elevated at 144. Patient previously on Lipitor 20 mg daily. Will recommend to increase Lipitor to 40 mg daily. Recommend to recheck lab-fasting lipid panel in 4-6 weeks to further monitor and adjust. 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 As mentioned above patient with CAD, CHF. At discharge patient will continue with a 1500 cc per day fluid restriction. Patient takes Lasix 40 mg 1 pill twice daily with potassium supplementation. Patient will continue with his current medications as above. Further adjustment in medication can be done by his PCP. Vital Signs/Physical Exam: Temp Pulse Resp BP Pulse Ox 97.1 F 81 15 144/89 H 97 11/28/20 08:00 11/28/20 08:53 11/28/20 08:00 11/28/20 08:53 11/28/20 08:00 General: Alert, In no apparent distress, Oriented x3, Cooperative HEENT: Atraumatic Neck: Supple Respiratory: Clear to auscultation bilaterally, Normal air movement Cardiovascular: Normal pulses, Regular rate/rhythm Gastrointestinal: Normal bowel sounds, Soft and benign, Non-distended, No tenderness, No masses, No rebound, No guarding Musculoskeletal: No tenderness, No warmth Neurological: Normal speech, Normal strength at 5/5 x4 extr, Normal tone, Normal affect Laboratory Data at Discharge: WBC 12.20 K/uL (4.3-10.9) H 11/28/20 05:40 Hgb 14.6 g/dL (13.6-17.9) 11/28/20 05:40 Hct 44.3 % (39.6-49.0) 11/28/20 05:40 Plt Count 245 K/uL (152-406) 11/28/20 05:40 PT 13.8 SECONDS (9.5-12.5) H 11/27/20 17:50 INR 1.20 11/27/20 17:50 Sodium 137 mmol/L (136-145) 11/28/20 05:40 Potassium 3.4 mmol/L (3.5-5.1) L 11/28/20 05:40 BUN 21 mg/dL (7-18) H 11/28/20 05:40 Creatinine 1.35 mg/dL (0.55-1.3) H 11/28/20 05:40 Glucose 122 mg/dL (74-106) H 11/28/20 05:40 Magnesium 2.6 mg/dL (1.8-2.4) H 11/28/20 05:40 Total Bilirubin 0.6 mg/dL (0.2-1.0) 11/28/20 05:40 AST 19 U/L (15-37) 11/28/20 05:40 ALT 17 U/L (12-78) 11/28/20 05:40 Alkaline Phosphatase 41 U/L (45-117) L 11/28/20 05:40 Troponin I 0.04 ng/mL (0.0-0.045) 11/28/20 05:40 Triglycerides 134 mg/dL (<150) 11/28/20 05:40 Cholesterol 230 mg/dL (<200) H 11/28/20 05:40 HDL Cholesterol 59 mg/dL (40-60) 11/28/20 05:40 Cholesterol/HDL Ratio 3.90 11/28/20 05:40 Home Medications: Carvedilol [Coreg] 25 mg PO BID 09/09/20 Furosemide 40 mg PO BID 09/09/20 Hydralazine HCl [Apresoline] 50 mg PO TID 09/09/20 Isosorbide Mononitrate [Isosorbide Mononitrate ER] 60 mg PO DAILY 09/09/20 [place] Carbonate [Lithotabs *] 600 mg PO BEDTIME 09/09/20 Losartan Potassium [Cozaar*] 25 mg PO DAILY 09/09/20 Amiodarone HCl 100 mg PO BID 09/10/20 Amlodipine Besylate [Norvasc] 10 mg PO DAILY 09/10/20 Aspirin [Aspirin EC 81 MG] 81 mg PO DAILY 09/10/20 Citalopram Hydrobromide [Celexa] 20 mg PO DAILY 09/10/20 Clopidogrel Bisulfate [Plavix*] 75 mg PO DAILY 09/10/20 Atorvastatin Calcium [Lipitor] 40 mg PO BEDTIME #30 tablet 11/28/20 Clonidine HCl [Catapres*] 0.2 mg PO Q6H PRN 11/28/20 HYDROcodone bitartrate [Hydrocodone Bitartrate ER] 30 mg PO Q12H 11/28/20 Potassium Chloride 20 meq PO DAILY 11/28/20 New Medications: Atorvastatin Calcium [Lipitor] 40 mg PO BEDTIME #30 tablet Physician Discharge Instructions: Follow up with PCP in 1 week Patient presented with chest pain. Patient with history of hypertension, hyperlipidemia, CAD with prior CABG. Patient was evaluated in the emergency room. Patient found to have hypertensive urgency. Home medications were restarted. Patient reports compliance with medication. Cardiac enzymes unremarkable. No significant ST changes noted on EKG. Patient was monitored and observed. Blood pressure is now within normal range with Re institution of his blood pressure medications. Prior heart catheterization reviewed. Cardiology recommended continued medical management at that time. Patient currently sees cardiology in [place]. Patient prefers to see Cardiology in [place] instead of inpatient consultation here. Patient without chest pain at this time. At discharge patient continue with aspirin 81 mg daily, Plavix 75 mg daily, Norvasc 10 mg daily, carvedilol 25 mg 1 pill twice daily, losartan 25 mg 1 pill daily, hydralazine 50 mg 1 pill 3 times a day, isosorbide mononitrate ER 60 mg daily, and clonidine 0.2 mg every 6 hr as needed if blood pressure elevated. LDL elevated at 144. Patient previously on Lipitor 20 mg daily. Will recommend to increase Lipitor to 40 mg daily at discharge. 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 Patient with acute on chronic back pain with history of multiple surgeries including fusions to the cervical, thoracic, and lumbar spine. Patient is seen by pain management in [place] by Dr. Cevallos. Patient's prescriptions were evaluated on the [facility] web site. Patient is receiving medications by pain specialist. Medications include ketamine nasal spray and hydrocodone bitratrate ER 30 mg 1 pill twice daily. Patient required IV pain medication. Pain has significantly improved. Patient has follow up with pain management on December 06 to re-evaluate medications. Pain management is adjusting medication for better control as reported by the patient. Overdose could risk lower addressed with patient. Patient understands his risks. Pain management to further address his acute on chronic back pain. Information provided from the [facility] website. Patient with atrial fibrillation not on chronic anti coagulation therapy. Patient stable this time. At discharge patient will continue with current medications as above along with amiodarone 100 mg twice daily.. Patient with bipolar disorder. At discharge patient will continue with his current medications including lithium 600 mg at bedtime, Celexa 20 mg daily. Further adjustment can be done by his PCP or psychiatry. Patient with hyperlipidemia. As mentioned above LDL elevated at 144. Patient previously on Lipitor 20 mg daily. Will recommend to increase Lipitor to 40 mg daily. Recommend to recheck lab-fasting lipid panel in 4-6 weeks to further monitor and adjust. 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 As mentioned above patient with CAD, CHF. At discharge patient will continue with a 1500 cc per day fluid restriction. Patient takes Lasix 40 mg 1 pill twice daily with potassium supplementation. Patient will continue with his current medications as above. Further adjustment in medication can be done by his PCP. Diet: AHA Activity: No lifting more than 10 lbs Followup: Allison Heard DO [Primary Care Provider] - Time spent managing pt's care (in minutes): 55
[2020-11-28 12:40] VITALS: O2SAT 96
[2020-11-28] MEDS ORDERED: HOME MED 1 EA UNK (Hydralazine Hcl [Apresoline] 50 MG Tablet) PO SCH (14:00)
[2020-11-28] MEDS ORDERED: HYDROCODONE BITARTRATE 30 MG PO SCH (21:00)
[2020-11-28] MEDS ORDERED: HOME MED 1 EA UNK (Amiodarone Hcl [Amiodarone Hcl] 100 MG Tablet) PO SCH (21:00)
[2020-11-28] MEDS ORDERED: FUROSEMIDE 20 MG TABLET PO SCH (21:00)
[2020-11-28] MEDS ORDERED: LITHIUM CARBONATE 300 MG TAB PO SCH (21:00)
[2020-11-29] MEDS ORDERED: HOME MED 1 EA UNK (Potassium Chloride [Potassium Chloride] 20 MEQ Tab.Er.Prt) PO SCH (09:00)
[2020-11-29] MEDS ORDERED: ISOSORBIDE MONO SR 60 MG TAB PO SCH (09:00)
[2020-11-29] MEDS ORDERED: HOME MED 1 EA UNK (Citalopram Hydrobromide [Celexa] 20 MG Tablet) PO SCH (09:00)
== END 2020-11-28 12:09 | disposition home or self-care (01) ==
LOC: ER 17:08 → ERHOLD 20:12
PROVIDERS: ADMIT Family Medicine; ATTEND Family Medicine
DX: I16.1 Hypertensive emergency (principal); I13.0 Hypertensive heart and chronic kidney disease with heart failure and stage 1 through stage 4 chronic kidney disease, or unspecified chronic kidney disease; N18.30 Chronic kidney disease, stage 3 unspecified; I50.32 Chronic diastolic (congestive) heart failure; I48.91 Unspecified atrial fibrillation; F31.9 Bipolar disorder, unspecified; E78.5 Hyperlipidemia, unspecified; I25.10 Atherosclerotic heart disease of native coronary artery without angina pectoris; M54.9 Dorsalgia, unspecified; G89.29 Other chronic pain; J44.9 Chronic obstructive pulmonary disease, unspecified; G47.30 Sleep apnea, unspecified; G89.4 Chronic pain syndrome; M54.2 Cervicalgia; M19.90 Unspecified osteoarthritis, unspecified site; K75.9 Inflammatory liver disease, unspecified; F17.210 Nicotine dependence, cigarettes, uncomplicated; Z71.6 Tobacco abuse counseling; Z20.822 Contact with and (suspected) exposure to COVID-19; Z95.1 Presence of aortocoronary bypass graft; Z98.890 Other specified postprocedural states; Z87.01 Personal history of pneumonia (recurrent); Z79.02 Long term (current) use of antithrombotics/antiplatelets; Z79.82 Long term (current) use of aspirin; Z88.0 Allergy status to penicillin; Z88.6 Allergy status to analgesic agent; Z82.49 Family history of ischemic heart disease and other diseases of the circulatory system; Z80.9 Family history of malignant neoplasm, unspecified
CPT/HCPCS: 96365; 93005; 85025 ×2; 80048; 36415; 83735 ×2; 85610; 80061; 80076; 84443; 84484 ×3; 84439; 80053; 83880; 70450; 71045; 96375; 99285; 96366; U0003; J0360 ×2; J1940 ×2; J2550; J1650; J2270 ×2; J2405 ×3; G0378

== ENCOUNTER 2020-12-18 09:53 | Observation (INO) | payer OTHER ==
--- OUTSIDE RECORDS SUMMARY | 2020-12-18 10:00 | XMS REPORT | Continuity of Care Document ---
:1960 Author Organization [facility] t Address [address] [place] [address] Care Team Providers Name Role Phone Asked, Pcp Primary Care Physician Unavailable Ramiro ORTIZ Attending Clinician Unavailable Miriam Carter Attending Clinician Giles Knott PA-C Attending Clinician Jessica RN Attending Clinician Unavailable Leticia Vasquez MD Attending Clinician Ramón HAYES Attending Clinician Singer MENDOZA Attending Clinician Deonte HAYES Attending Clinician MADHURI DWYER Attending Clinician Unavailable Divina CATHERINE Attending Clinician Unavailable Walker MD, Leticia Admitting Clinician MADHURI DWYER Admitting Clinician Unavailable Divina CATHERINE Admitting Clinician Unavailable Payers Payer Name Policy Type Policy Effective Date Expiration Date Sour ce Number UHC MEDICAREUHC [id number] 2020 [place] DUAL COMPLETE 00:00:00 [employer] [id number]/10/26 021-PresentHMO [facility] [id number] [facility] - - MEDICARE MGD 00:00:00 Medical Ce nter CAREUNITED MEDICARE [id number]/10/26 016-Present Problems Condition Condition Condition Status Onset Resolution Last Treating Co mments Source Name Details Category Date Date Treatment Clinician Date Hypertensi Hypertensi Disease Active [facility] ve [facility]20 [facility] - emergency emergency 00:00: [facility] 00 [place] Acute Acute Disease Active [facility] kidney kidney 7-20 [facility] - injury injury 00:00: Medical 00 [place] Diarrhea Diarrhea Disease Active [facility] - 00:[facility]: Medical 00 [place] Transamini Transamini Disease Active [facility] tis tis 7-20 [facility] - 00:00: Medical 00 [place] Hepatitis Hepatitis Disease Active [facility] C virus C virus 7-20 [facility] - infection infection 00:00: [facility] without without 00 Center hepatic hepatic coma coma Chest pain Chest pain Disease Active [facility] 7[facility]16 [facility] - 00:00: Medical 00 [place] Syncope Syncope Disease Active [facility] 7-16 [...] [facility] ins 1-08 Clear 00:00: Pink 00 [facility] codeine DA Active [facility] 108 Clear 00:00: Pink 00 [facility] Cephalos Propensi Active Nausea And CH [...] Adverse Active rash [facility] in Reaction [facility] Cephalos Adverse Active vomiting [facility] porins Reaction [facility] Social History Social Habit Start Date Stop Date Quantity Comments Source Exposure to Not sure [facility] SARS-CoV-2 (event) Sex Assigned At [facility] Tobacco use and 2019-06-14 2019-06-14 Never used [facility] - exposure 00:00:00 00:00:00 [facility] History of 2018-05-25 Cigarette Smoker [facility] Start Date Stop Date Source Former smoker 2019-06-14 00:00:00 2019-06-14 00:00:00 [facility] Medications Ordered Filled Start Stop Current Ordering Indication Dosage Frequency Signature Comments Components Source Medication Medication Date Date Medication? Clinician (SIG) Name Name Buddy Buddy Yes Na Heard as needed [facility] 3[facility]19 for nausea [facility] - 00:00: [facility] 00 [facility] amitriptyli Yes 50mg QD Take [address] ne (ELAVIL) 8-22 by mouth Luke s - 50 MG 14:22: nightly. Medical tablet 42 [place] DULoxetine Yes 60mg QD Take [address] (CYMBALTA) 8-22 by mouth [facility] - 60 MG 14:22: daily. Medical capsule 42 [place] vitamin E Yes 200U QD Take [address] 200 UNIT 8-22 Units by [facility] - capsule 14:22: mouth Medical 42 daily. [place] lithium 300 Yes 300mg QD Take [address] MG capsule 8-22 mg by [facility] - 14:22: mouth Medical 42 nightly . Center lisinopril 2019-0 Yes 40mg QD Take 40 mg C [...] (six) hours as needed for Wheezing. mometasone- 2019-0 Yes 2{puff} Q.5D Inhale [address] formoterol 8-22 puffs by [facility] - (DULERA) 14:22: mouth via Medi dustin 100-5 42 inhaler 2 Center mcg/actuati (two) on inhaler times daily. HYDROcodone 2019- Yes 1{tbl} Take [address] -acetaminop 8-22 tablet by Kofi witt (NORCO 14:22: mouth Medica l 10-325) 42 every 6 Center 10-325 mg (six) per tablet hours as needed for Pain. amiodarone 2019-0 Yes 100mg Q.5D Take [address] (PACERONE) 8-22 mg by [facility] - 100 MG 14:22: mouth 2 Medical tablet 42 (two) Center times daily. isosorbide 2019-0 Yes 60mg QD Take [address] mononitrate 8-22 by mouth Luke s - (IMDUR) 60 14:22: daily. Medic al MG 24 hr 42 Center tablet ranolazine 2019-0 Yes 1000mg QD Take 1,[address] (RANEXA) 8-22 mg by [facility] - 1,000 mg SR 14:22: mouth Medic al tablet 42 daily. Center budesonide- 2019-0 Yes 2{puff} Q.5D Inhale [address] formoterol 8-22 puffs by [facility] - (SYMBICORT) 14:22: mouth via M edical 80-4.5 42 inhaler 2 Center mcg/actuati (two) on inhaler times daily. clopidogrel 2018-0 2020- No 75mg QD Take [address] (PLAVIX) 75 8-22 08-21 tablet (75 L ukes - mg tablet 00:00: 23:59 mg total) Me dical 00 :00 by mouth Center daily. Albuterol Albuterol 2018- Yes Na Heard inhale [address] [facility] Sulfate Sulfate 5-14 vial by [facility] - 00:00: mouth via Memoria 00 nebulizer l 3 times a [facility] Ipratropium Ipratropium 2018- Yes Na Heard as [facility] [place] 5-14 directed [facility] - 00:00: [facility] 00 [facility] Amlodipine Amlodipine 2017-10 Yes Na Heard [address] Besylate Besylate 0-29 [facility] - 00:00: [facility] 00 [facility] ent Clinics aspirin 81 2017- Yes 81mg QD Take [...] more than 3 doses in 15min.. lidocaine 2017- Yes 3{patch Q24H Place [address] (LIDODERM) - } patches [facility]ukes - 5 % patch [...] week then Memoria 00 1 tablet l [facility] carvedilol Yes 25mg Take 1 [facility] (COREG) 25 4-05 tablet (25 Kofi es - MG tablet 00:00: mg total) Med ical 00 by mouth 2 Center (two) times daily with breakfast and dinner. Isosorbide Isosorbide Yes Na Heard [address] Mononitrate Mononitrate in the [facility] - ER ER morning Memoria l [facility] Foristell Foristell Yes Na Heard [address] Carbonate Carbonate at bedtime [facility] - [facility] l [facility] ent Clinics Atorvastati Atorvastati Yes Na Heard [address] n Calcium n Calcium [facility] ent Clinics Losartan Losartan Yes Na Heard [address] Potassium Potassium [facility] ent Clinics Gabapentin Gabapentin Yes Na Heard [address] [facility] ent Clinics Carvedilol Carvedilol Yes Na Heard as [facility] directed [facility] ent Clinics HydrALAZINE HydrALAZINE Yes Na Heard [address] HCl HCl with food [facility] Citalopram Citalopram Yes Na Heard [address] Hydrobromid Hydrobromid L ukes - e e Memoria l [facility] ent Clinics Lorazepam Lorazepam Yes Na Heard [address] as needed [facility] - [facility] [place] Yes Na Heard [address] [facility] as needed [facility] Hydrochloro Hydrochloro Yes Na Heard [address] thiazide thiazide in the [facility] - morning [facility] l [facility] Ranolazine Ranolazine Yes Na Heard [address] ER ER [facility] ent Clinics Lisinopril Lisinopril Yes Na Heard [address] [facility] ent Clinics Lactulose Lactulose Yes Na Heard [address] [facility] Foristell Foristell Yes Na Heard TAKE [address] Carbonate Carbonate CAPSULE BY [facility] - MOUTH Memoria DAILY AT l BEDTIME Outpati ent Clinics Amitriptyli Amitriptyli Yes Na Heard [address] ne HCl ne HCl [facility] Dulera Dulera Yes Na Heard 2 puffs [facility] Amiodarone Amiodarone Yes Na Heard [address] HCl HCl [facility] Aspir-81 Aspir-81 Yes Na Heard [address] [facility] Procedures Procedure Date / Time Performed Performing Clinician [facility] e CT CHEST EXTERNAL 2020-09-14 14:51:[address] HEAD EXTERNAL STUDY 2020-09-14 14:46:[address] SPINE EXTERNAL 2020-09-14 14:46:00 Aashish Knott STUDY XR SPINE EXTERNAL 2020-08-12 14:53:00 Aashish Knott STUDY XR SPINE EXTERNAL 2020-07-12 09:07:00 Aashish Knott STUDY SARS-COV2/RT-PCR ([facility] 2020-05-19 20:30:00 [facility] Plan of Care Planned Activity Planned Date Details Comments Source Future Scheduled 2022-06-[address] [facility] - Test 00:00:00 (procedure) [code = [facility] [id number]] Future Scheduled 2020-06-25 INFLUENZA VACCINE (#1) C [...] Future Scheduled 2008 COLONOSCOPY SCREENING [place] [facility] 00:00:00 [code = COLONOSCOPY SCREENING] Future Scheduled 2008 SHINGLES VACCINES (#1) [place] [facility] Test 00:00:00 [code = SHINGLES VACCINES (#1)] Future Scheduled 1974 COVID-19 VACCINE (1 of [place] [facility] Test 00:00:00 2) [code = COVID-19 VACCINE [...] Medica l Center colon (procedure) [code = 020220658] Encounters Start End Encounter Admission Attending Care Care Encounter Source Date/Time Date/Time Type Type Clinicians Facility Department ID 2020-12-03 2020-12-03 Outpatient CHRISTOPHER, [facility] [id number] 267 [place] 00:00:00 00:00:00 RYLEY [address] 2020-11-19 2020-11-19 Outpatient [facility] [id number] 365 [place] 00:00:00 00:00:[address] 2020-11-19 2020-11-19 Outpatient [facility] [id number] 853 [place] 00:00:00 00:00:[address] 2020-11-19 2020-11-19 Outpatient [facility] [id number] 853 [place] 00:00:00 00:00:[address] 2020-11-19 2020-11-19 Outpatient [facility] [id number] 851 [place] 00:00:00 00:00:[address] 2020-11-19 2020-11-19 Outpatient [facility] [id number] 851 [place] 00:00:00 00:00:[address] 2020-11-19 2020-11-19 Outpatient [facility] [id number] 851 [place] 00:00:00 00:00:[address] 2020-11-19 2020-11-19 Outpatient [facility] [id number] 852 [place] 00:00:00 00:00:[address] 2020-11-19 2020-11-19 Outpatient [facility] [id number] 852 [place] 00:00:00 00:00:[address] 2020-11-19 2020-11-19 Outpatient [facility] [id number] 852 [place] 00:00:00 00:00:[address] 2020-11-07 2020-11-07 [facility] [id number] 2020-08-12 2020-08-12 [facility] [id number] [facility] 2020-08-08 2020-08-08 [facility] [id number] [facility] 2020-07-22 2020-07-22 Transition Lopez Mitrasanjeev [id number] 00:00:00 00:00:00 of Care Mirella Castro [id number] [place] [id number] 2020-07-18 2020-07-20 [facility] Darren Vasquez [id number] 22:50:00 13:00:00 Encounter Ramón Moshelauro Cedillo [id number] [place] [id number] 2020-07-18 2020-07-[address] [facility] [id number] 17:31:00 21:56:00 Osmin Clemons [id number] [place] [id number] [place] [id number] 2020-06-25 2020-06-25 [facility] [id number] [address] 11:20:00 11:20:00 t iDevices s - Drive [facility] Family Medicine l Medicine Outpati ent Clinics 2020-05-03 2020-05-03 [facility] [id number] 14:25:00 14:25:00 t [employer]Devices s - Drive [facility] Family Medicine l Medicine Outpati ent Clinics 2020-02-12 2020-02-12 [facility] [id number] 11:15:00 11:15:00 t [place] Private[employer]Me s - Drive [facility] Medicine Outpati ent Clinics 2020-01-26 2020-01-26 [facility] [id number] 11:20:00 11:20:00 [place] [employer] [facility] Medicine Outpati ent Clinics 2020-01-11 2020-01-11 [facility] [id number] 15:32:00 15:32:00 t [employer] [facility] Medicine Outpati ent Clinics 2020-01-03 2020-01-03 [facility] [id number] 09:20:00 09:20:00 t NeuString [facility] Outpati ent Clinics 2020-01-02 2020-01-02 Outpatient MHBL [facility]BL [id number] [facility]BL 09:54:00 09:54:00 2019-11-13 2019-11-13 [facility] [id number] 14:13:00 14:13:00 t Specialty/U Abigail kes - Specialty rology [facility] a /Urology Clinic l Clinic Outpati ent Clinics 2019-11-01 2019-11-01 [facility] [id number] 09:20:00 09:20:00 t Neu[employer] [facility] Outpati ent Clinics 2019-10-27 2019-10-27 Outpatient MHSE MHSE [id number] MH 08:50:00 08:50:[facility] 2019-09-05 2019-09-05 [facility] [id number] 09:29:00 09:29:00 t [employer] [facility] Medicine Outpati ent Clinics 2019-05-31 2019-05-31 [facility] [id number] 12:00:00 12:00:00 t [employer] [facility] Medicine Outpati ent Clinics 2019-05-30 2019-05-30 [facility] [id number] 15:00:00 15:00:00 t [employer] [facility] Medicine Outpati ent Clinics 2019-04-26 2019-04-26 [facility] [id number] 15:09:00 15:09:00 [place] [employer] s - Drive [facility] Medicine l Medicine Outpati ent Clinics 2019-03-30 2019-03-30 [facility] [id number] 15:40:00 15:40:00 t [place] [employer] s - Drive [facility] Medicine l Medicine Outpati ent Clinics 2019-02-23 2019-02-23 Outpatient E MHSE MED [address] [place] [address] 15:40:00 15:40:00 [facility] 2019-01-10 2019-01-10 [facility] [id number] 08:41:00 08:41:00 t [place] [employer] s - Drive [facility] l Medicine Outpati ent Clinics 2018-12-12 2018-12-12 [facility] [id number] 08:15:00 08:15:00 t [place] [employer] s - Drive [facility] l Medicine Outpati ent Clinics 2018-07-27 2018-07-27 [facility] [id number] 15:15:00 15:15:00 t [place] [employer] s - Drive [facility] Medicine l Medicine Outpati ent Clinics 2018-06-09 2018-06-09 [facility] [id number] 08:00:00 08:00:00 [place] [employer] s - Drive [facility] Medicine l Medicine Outpati ent Clinics 2018-05-31 2018-05-31 [facility] [id number] 09:00:00 09:00:00 t [place] [employer] s - Drive [facility] Medicine l Medicine Outpati ent Clinics 2018-04-20 2018-04-20 [facility] [id number] 09:45:00 09:45:00 t [place] [employer] s - Drive [facility] Medicine l Medicine Outpati ent Clinics 2018-04-15 2018-04-15 [facility] [id number] 15:26:00 15:26:00 t [place] [employer] s - Drive [facility] Medicine l Medicine Outpati ent Clinics 2018-03-15 2018-03-15 [facility] [id number] [facility] 15:15:00 15:15:00 [facility] ent [facility] 2018-02-28 2018-02-28 Outpatient Nelson Palomares 13 [id number] [facility] 09:15:00 09:15:00 [facility] Results Test Description Test Time Test Comments Results Result Sour e Comments XR Spine External 2020-11-19 This exam was not [facility] Study 14:10:51 acquired at a [facility] facility and has not been interpreted by a Pentecostal Provider. The exam was imported into our imaging system. CT Chest External 2020-11-19 This exam was not [facility] Study 14:00:27 acquired at a [facility] facility and has not been interpreted by a Pentecostal Provider. The exam was imported into our imaging system. CT Spine External 2020-11-19 This exam was not [place] Study 13:56:35 acquired at a [facility] Pent[facility] facility and has not been interpreted by a Pentecostal Provider. The exam was imported into our imaging system. CT Head External 2020-11-19 This exam was not [facility] Study 13:54:19 acquired at a [facility] Pent[facility] facility and has not been interpreted by a Pentecostal Provider. The exam was imported into our imaging system. SARS-CoV2/RT-PCR ([facility]) 2020-05-20 09:54:00 Test Item Value Reference Range Interpretation Comme nts SARS-COV2/RT-PCR (test code = Negative Not Detected, 19505-1) Negative, See external report for linked test SARS-COV-[address] [facility] (test code = 69313-5) JENNIFER (test code = JENNIFER) Negative result [...] of the Act. Fact Sheet for Healthcare Providers:https://www.[employer]/sites/default/files/produ ct/documents/Fact_Sheet_HC_Pr uniqhyr_Cmvz_IFZL-MuX-3.pdf Fact Sheet for Healthcare Patients:https://www.[employer] om/sites/default/files/produc t/documents/Fact_Sheet_Patien gg_Zfgs_CZUE-OjG-7.pdf Performing Laboratory:[facility] [facility] Center[facility]is Dominguez.[place], [place] [address] [place], [place] [address]ARS-COV2/RT-PCR ([facility])2020-05-20 09:54:00 Test Item Value Reference Range Interpretation Comments SARS-COV2/RT-PCR (test Negative Not Detected, Negative, code = 7084680) See external report for linked test SARS-COV-[address] [facility] (test code = 5870519) Negative result for this test determines that [...] 564(g) of the Act.Fact Sheet for Healthcare Providers:https://www.[employer]/sites/default/files/product/documents/Fact_Shee k_LW_Cizigungj_Evmm_FXGS-JtI-3.pdfFact Sheet for Healthcare Patients:https://www.[employer]/sites/default/files/product/ documents/Rmzm_Hmvwu_Ykuhjejh_Fwhm_JQJA-EeU-2.pdfPerforming Laboratory:[facility].[place], [place] [address]UVUUE METABOLIC PANEL 2019-11-04 06:36:00 Test Item Value [...] CA) 8.9 MG/DL 8.5-10.1 N CBC W/AUTO [id number] 06:32:00 Test Item Value Reference Range Interpretation [...] = NO DIFF/SCN CRITERIA MDIFF) COMPREHENSIVE METABOLIC [id number] 06:08:00 Test Item Value Reference Range Interpretation [...] TOTAL (test code = ALKP) CBC W/AUTO [id number] 05:52:00 Test Item Value Reference Range Interpretation [...] concentrations <2 ng/mL are obtai brandon. LACTIC [id number] 16:03:00 Test Item Value Reference Range Interpretation Comments LACTIC ACID (test code = LACT) 1.0 mmol/L 0.4-2.0 N - XR CHEST 1 [id number] 15:59:00 Name: DARA FARAHBREY [facility] : 1960 Age/S: 58 / M [id number] [address] [place] [place] Unit #: [id number] Loc: [place] [address] Phys: Jac Leal MD Acct: [id number] Dis Date: Status: ADM IN PHONE #: [phone] Exam Date: 11/02/2019 1553 FAX #: Reason: Fever EXAMS: CPT: [id number] XR CHEST 1 V 90598 Fluoro Time: DAP (Gy m2): Air Kerma [...] PAGE 1 Signed Report Name: ALHAJI FARAH [place] : 1960 Age/S: 58 / M [id number] [facility] Unit #: [id number] Loc: [place] [address] Phys: Jac Leal MD Acct: [id number] Dis Date: Status: ADM IN PHONE #: [phone] Exam Date: 11/02/2019 155 FAX #: Reason: Fever EXAMS: CPT: [id number] XR CHEST 1 V 77984 Fluoro Time: DAP (Gy m2): Air Kerma (mGy): <Continued> Technologist: Sabine Cross RT(R)(CT) Trnscb Date/Time: 11/02/2019 (0423) [email or web address] Orig Print D/T: S: 11/02/2019 (7731) PAGE 2 Signed [id number] 04:22:00 Test Item Value Reference Range Interpretation [...] yby method. Completed by Nursing: NOBASIC METABOLIC [id number] 04:19:00 Test Item Value Reference Range Interpretation [...] CA) 8.1 MG/DL 8.5-10.1 L CBC W/AUTO [id number] 04:08:00 Test Item Value Reference Range Interpretation [...] = NO DIFF/SCN CRITERIA MDIFF) - CTA [id number] 22:57:00 Name: ALHAJI FARAH [facility] : 1960 Age/S: 58 / M [id number] [place] Unit #: [id number] Loc: [place] [address] Phys: Jac Leal MD Acct: [id number] Dis Date: Status: ADM IN PHONE #: [phone] Exam Date: 11/01/2019 2133 FAX #: Reason: Chest PAIN EXAMS: CPT: [id number] CTA CHEST 72340 Examination: CTA chest, PE protocol Indication: Chest [...] FARAH : 1960 Age/S: 58 / M [address] [place] [place] Unit #: [id number] Loc: [place] [address] Phys: Jac Leal MD Acct: [id number] Dis Date: Status: ADM IN PHONE #: [phone] Exam Date: 11/01/20196 FAX #: Reason: Chest PAIN EXAMS: CPT: [id number] CTA CHEST 32759 <Continued> No suspicious or destructive osseous lesions. Impression: Limited exam secondary to phase of contrast no evidence of acute pulmonary embolism proximal lobar pulmonary arteries. There is irregular, possibly nodular thickening of the esophagus, recommend further evaluation with endoscopy Additional findings as detailed above at 2031 Reported and signed by: Katy Dykes M.D. CC: Jac Leal MD Technologist:Curly Logan, RT(R)(CT); .. CTDI: DLP: Trnscb Date/Time: 11/01/2019 (2842) [email or web address] Orig Print D/T: S: 11/01/2019 (970) PAGE 2 Signed ReportGLYCOSYLATED HEMOGLOBIN [id number] 17:41:00 Test Item Value Reference Range Interpretation Comments GLYCOSYLATED HEMOGLOBIN (HA1C) 6.3 % A1C 4.2-6.3 N (test code = GLYHGB) ESTIMATED AVERAGE GLUCOSE (test 134 MG/DLest code = EAG) COMPREHENSIVE METABOLIC [id number] 17:40:00 Test Item Value Reference Range Interpretation [...] = LDL/HDL) 2.94 Ratio 1.48-3.22 Avg N [id number] 17:40:00 Test Item Value Reference Range Interpretation Comments PHOSPHOROUS (test code = PHOS) 3.5 MG/DL 2.5-4.9 N RULE OUT UT [id number] 17:40:00 Test Item Value Reference Range Interpretation [...] nume rical results may roma yby method. [id number] 17:40:00 Test Item Value Reference Range Interpretation Comments MAGNESIUM (test code = MAG) 2.5 MG/DL 1.8-2.4 H TROPONIN I [id number] 15:24:00 Test Item Value Reference Range Interpretation Comments TROPONIN I RAPID 0.04 ng/mL 0.00-0.08 N - The use o f serial (test code = sampling and te sting TROPIRAP) protocol is a recommended pra ctice- An elevated tro ponin level alone is often not sufficient for diagnosis of my ocardial infarction. BASIC METABOLIC [id number] 13:39:00 Test Item Value Reference Range Interpretation [...] 133 Unit/L 26-192 N CK) TROPONIN I [id number] 11:56:00 Test Item Value Reference Range Interpretation Comments TROPONIN I RAPID 0.04 ng/mL 0.00-0.08 N - The use o f serial (test code = sampling and te sting TROPIRAP) protocol is a recommended pra ctice- An elevated tro ponin level alone is often not sufficient for diagnosis of my ocardial infarction. - XR CHEST 1 [id number] 11:53:00 Name: MIKAL FARAHMarty GOMES [place] : 1960 Age/S: 58 / M [address] [place] Unit #: [id number] Loc: [place] [address] Phys: Darell Medrano MD Acct: [id number] Dis Date: Status: PRE ER PHONE #: [phone] Exam Date: 11/01/2019 1146 FAX #: Reason: chest pain EXAMS: CPT: [id number] XR CHEST 1 V 24682 Fluoro Time: DAP (Gy m2): Air Kerma [...] Medrano MD PAGE 1 Signed Report Name: MIKAL FARAHMarty GOMES [place] :1960 Age/S: 58 / M [address] [place] Unit #: [id number] Loc: [place] [address] Phys: Darell Medrano MD Acct: [id number] Dis Date: Status: PRE ER PHONE #: [phone] Exam Date: 11/01/2019 1146 FAX #: Reason: chest pain EXAMS: CPT: [id number] XR CHEST 1 V 76353 Fluoro Time: DAP (Gy m2): Air Kerma (mGy): <Continued> Technologist:Nirmal Negron RT(R)(MR) Trnscb Date/Time: 11/01/2019 (2329) [id number] Orig Print D/T: S: 11/01/2019 (8582) PAGE 2 Signed ReportCBC W/O [id number] 11:50:00 Test Item Value Reference Range Interpretation [...] 11.80 fL 7.0-9.6 H MPV) CHEMISTRY 8 [id number] 11:47:00 Test Item Value Reference Range Interpretation [...] 49-113 N code = GFRBED) CHEMISTRY 8 [id number] 11:47:00 Test Item Value Reference Range Interpretation [...] 49-113 N (test code = GFRBED) TISSUE [id number] 10:31:00Surgical Pathology Report Case: [id number] Authorizing Provider: Caleb Dawn Collected: 06/14/2019 Bhavna Morales MD Ordering Location: [address] Received: 06/15/2019 0759 Service Pathologist: Misty Jackson MD Specimen: Ampulla, Ampulla Bx A. "AMPULLA", BIOPSY: - SQUAMOUS AND FOVEOLAR TYPE MUCOSA WITH MILD CHRONIC INFLAMMATION - NEGATIVE FOR MALIGNANCY (SEE COMMENT) Signing Pathologist Direct Phone Line: [phone] signed by Misty Jackson MD on 06/19/2019 at 10:31 AMThe biopsy shows fragments of squamous and foveolar type mucosa with mild chronic inflammation and cautery. Focal muscle is also seen. No definite small bowel/ biliary lining is seen. The ampulla normally does not have squamous lining. This could be a metaplastic change. Clinical and endoscopic correlation is required.24555Mpi and postop diagnosis: endoscopic ultrasound with endo, [...] patient radiation dose information. Signed: Diana Nicholas MDReptay Verified Date/Time: 06/16/2019 12:50:49 Reading Location: [facility] Radiology Reading Room BLOOD CULTURE 2019-06-16 12:01:00 Test Item Value Reference Range Interpretation Comments CULTURE (BEAKER) (test No growth in 5 days code = 1095) BLOOD [id number] 12:01:00 Test Item Value Reference Range Interpretation Comments CULTURE (BEAKER) (test No growth in 5 days code = 1095) COMPREHENSIVE METABOLIC [id number] 07:08:00 Test Item Value Reference Range Interpretation [...] NOT APPLICABLE FOR DIALYSIS PATIEN TS. BLOOD [id number] 02:00:00 Test Item Value Reference Range Interpretation Comments CULTURE (BEAKER) (test No growth in 5 days code = 1095) BLOOD [id number] 02:00:00 Test Item Value Reference Range Interpretation Comments CULTURE (BEAKER) (test No growth in 5 days code = 1095) BLOOD [id number] 02:00:00 Test Item Value Reference Range Interpretation Comments CULTURE (BEAKER) (test No growth in 5 days code = 1095) COMPREHENSIVE METABOLIC [id number] 04:49:00 Test Item Value Reference Range Interpretation [...] 0-0 CELLS (ARIEL) (test code = 413) [id number] 16:17:00 Test Item Value Reference Range Interpretation Comments ACTIVATED CLOTTING TIME 125 [address] ED [address] [facility] [address] (ARIEL) (test code = [place] [address]) [address] PET, CARDIAC PERFUSION MULTIPLE STUDIES, REST AND [id number] 16:40:00 Reason for exam:->chest pain, evaluate for worsening CAD, s/p CABGFINAL REPORT PROCEDURE: MYOCARDIAL PERFUSION PET IMAGING (Rest/Stress)CPT CODE: 79238 INDICATION: Evaluate acute chest pain/discomfort CARDIOVASCULAR PROFILE:CAD [...] MDReport Verified Date/Time: 06/12/2019 16:40:23 Reading Location: [address] Reading Room TROPONIN [id number] 02:08:00 Test Item Value Reference Range Interpretation [...] acute neurological disease, and persistent tachyarrhythmia.HEPATIC FUNCTION [id number] 02:02:00 Test Item Value Reference Range Interpretation [...] = 26 U/L 6-55 347) BASIC METABOLIC [id number] 02:02:00 Test Item Value Reference Range Interpretation [...] APPLICABLE FOR DIALYSIS PATIEN TS. VANCOMYCIN LEVEL, [id number] 01:59:00 Test Item Value Reference Range Interpretation [...] WBC 0-0 (BEAKER) (test code = 413) [id number] 07:20:00 Test Item Value Reference Range Interpretation Comments PROCALCITONIN (BEAKER) (test code 0.30 ng/mL <0.05 H = 3036) SEPSIS RISK (ng/mL)Low: 0.05-0.50Intermediate: 0.51-2.00High: >=2.01BASIC METABOLIC [id number] 07:16:00 Test Item Value Reference Range Interpretation [...] APPLICABLE FOR DIALYSIS PATIEN TS. HEPATIC FUNCTION [id number] 07:16:00 Test Item Value Reference Range Interpretation [...] WBC 0-0 (BEAKER) (test code = 413) [id number] 05:55:00 Test Item Value Reference Range Interpretation Comments MAGNESIUM (BEAKER) (test code = 2.1 mg/dL 1.6-2.6 627) LIPID [id number] 05:55:00 Test Item Value Reference Range Interpretation [...] 130-159 High 160-189 Very High >=190HEPATIC FUNCTION [id number] 05:55:00 Test Item Value Reference Range Interpretation [...] = 34 U/L 6-55 347) BASIC METABOLIC [id number] 05:55:00 Test Item Value Reference Range Interpretation [...] PATIEN TS. CBC W/PLT COUNT & AUTO [id number] 05:03:00 Test Item Value Reference Range Interpretation [...] PERCENT (BEAKER) (test code = 2801) TROPONIN [id number] 05:02:00 Test Item Value Reference Range Interpretation [...] acute neurological disease, and persistent tachyarrhythmia.LACTIC ACID, [id number] 04:48:00 Test Item Value Reference Range Interpretation Comments LACTATE BLOOD VENOUS (2) (BEAKER) 1.1 mmol/L 0.5-2.2 (test code = 2872) URINALYSIS W/ REFLEX URINE [id number] 03:25:00 Test Item Value Reference Range Interpretation [...] SOURCE(BEAKER) (test code = 2795) OXYGEN SATURATION, [id number] 03:04:00 Test Item Value Reference Range Interpretation [...] 0.7 mmol/L 0.5-2.2 (test code = 2872) [id number] 23:52:00 Test Item Value Reference Range Interpretation Comments PROCALCITONIN (BEAKER) (test code 0.30 ng/mL <0.05 H = 3036) SEPSIS RISK (ng/mL)Low: 0.05-0.50Intermediate: 0.51-2.00High: >=2.01TROPONIN [id number] 23:40:00 Test Item Value Reference Range Interpretation [...] failure, acidosis, acute neurological disease, and persistent tachyarrhythmia.[id number] 23:34:00 Test Item Value Reference Range Interpretation Comments PHOSPHORUS (BEAKER) (test code = 3.4 mg/dL 2.3-4.7 604) [id number] 23:34:00 Test Item Value Reference Range Interpretation Comments MAGNESIUM (BEAKER) (test code = 2.2 mg/dL 1.6-2.6 627) BASIC METABOLIC [id number] 23:34:00 Test Item Value Reference Range Interpretation [...] APPLICABLE FOR DIALYSIS PATIEN TS. HEPATIC FUNCTION [id number] 23:34:00 Test Item Value Reference Range Interpretation [...] = 42 U/L 6-55 347) COMPREHENSIVE METABOLIC [id number] 23:34:00 Test Item Value Reference Range Interpretation [...] S NOT APPLICABLE FOR DIALYSIS PATIEN TS. [id number] 23:34:00 Test Item Value Reference Range Interpretation Comments LIPASE (BEAKER) (test code = 749) 38 U/L 8-78 [id number] 23:33:00 Test Item Value Reference Range Interpretation Comments PARTIAL THROMBOPLASTIN TIME 27.3 seconds 22.5-36.0 (BEAKER) (test code = 760) [id number] 23:33:00 Test Item Value Reference Range Interpretation Comments FIBRINOGEN LEVEL (BEAKER) (test 300 mg/dl 225-434 code = 658) PROTHROMBIN [id number] 23:32:00 Test Item Value Reference Range Interpretation [...] mechanical heart valves.CBC W/PLT COUNT & AUTO [id number] 23:22:00 Test Item Value Reference Range Interpretation [...] (BEAKER) (test code = 2801) BLOOD GAS, [id number] 22:27:00 Test Item Value Reference Range Interpretation [...] code = 1819) 21.0 % POCT-LACTIC ACID, [id number] 21:53:00 Test Item Value Reference Range Interpretation Comments POC-LACTIC ACID, 1.6 mmol/L 0.9-1.7 TESTED AT [facility] [address] V[address] (BEAKER) (test [facility] code = 2807) [address] TROPONIN [id number] 18:59:00 Test Item Value Reference Range Interpretation Comments TROPONIN I ([facility]) (test code = 0.09 ng/mL 0.00-0.03 H [...] acute neurological disease, and persistent tachyarrhythmia.HEPATITIS C [id number] 16:55:00 Test Item Value Reference Range Interpretation Comments HEPATITIS C ANTIBODY ([facility]) (test Reactive Nonreactive A code = 367) POCT-GLUCOSE [id number] 12:03:00 Test Item Value Reference Range Interpretation Comments POC-GLUCOSE METER 169 mg/dL 70-110 H TESTED AT [place] [address] ([facility]) (test code = [facility] 1538) [address] HEPATITIS B CORE ANTIBODY, [id number] 08:37:00 Test Item Value Reference Range Interpretation Comments HEPATITIS B CORE TOTAL ANTIBODY Reactive Nonreactive A ([facility]) (test code = 497) POCT-GLUCOSE [id number] 08:14:00 Test Item Value Reference Range Interpretation Comments POC-GLUCOSE METER 105 mg/dL 70-110 TESTED AT [place] [address] ([facility]) (test code = [facility] 1538) [address] HEPATIC FUNCTION [id number] 07:10:00 Test Item Value Reference Range Interpretation Comments TOTAL PROTEIN (BEAKER) (test code = 6.7 gm/dL 6.0-8.3 770) ALBUMIN ([facility]) (test code = 1145) 3.5 g/dL 3.5-5.0 BILIRUBIN TOTAL (BEAKER) (test code 0.5 mg/dL 0.2-1.2 = 377) BILIRUBIN DIRECT (BEAKER) (test 0.3 mg/dL 0.1-0.5 code = 706) ALKALINE PHOSPHATASE (BEAKER) (test 60 U/L 40-150 code = 346) AST (SGOT) ([facility]) (test code = 47 U/L 5-34 H 353) ALT (SGPT) (BEAKER) (test code = 67 U/L 6-55 H 347) BASIC METABOLIC [id number] 07:10:00 Test Item Value Reference Range Interpretation [...] FOR DIALYSIS PATIEN TS. HEPATITIS B SURFACE [id number] 06:58:00 Test Item Value Reference Range Interpretation Comments HEPATITIS B SURFACE ANTIBODY < mIU/mL <8.0 (BEAKER) (test code = 647) HEPATITIS B SURFACE [id number] 05:42:00 Test Item Value Reference Range Interpretation Comments HEPATITIS B SURFACE ANTIGEN (2) Nonreactive Nonreactive (BEAKER) (test code = 2585) HEPATITIS B CORE ANTIBODY, [id number] 05:42:00 Test Item Value Reference Range Interpretation Comments HEPATITIS B CORE IGM ANTIBODY Nonreactive Nonreactive (BEAKER) (test code = 645) CBC W/PLT COUNT & AUTO [id number] 04:56:00 Test Item Value Reference Range Interpretation [...] (test code = 2801) U/S, RENAL WITH [id number] 16:28:00Reason for exam:->hypertensionFINAL REPORT INDICATION: 57-year-old inpatient [...] MDReport Verified Date/Time: 05/11/2018 16:28:02 Reading Location: [address] Ultrasound Reading Room U/S, ABDOMINAL, [id number] 16:15:00Abdomen limited area? Add comment if clarification [...] MDReport Verified Date/Time: 05/11/2018 16:15:41 Reading Location: [place] [id number] Ultrasound Reading Room CTA, CHEST, ABDOMEN - PELVIS, FOR [id number] 14:11:00Reason for exam:->Chest painAddendum BeginsREPORT STATUS:A Addendum: I agree with the previously described non vascular findings. Signed: Antionette Hinojosa MDReport Verified Date/Time: 05/11/2018 14:11:09 Reading Location: [place] [id number] Angio Body Reading RoomAddendum EndsFINAL REPORT CT [...] coronary artery calcification is seen in the [place] coronary territories. Patient is post coronary artery [...] thoracic aorta. In the abdominal aorta, circumferential kswt-mm-qynifykx calcific atherosclerosis is seen. Overall, no ectasia [...] An addendum will be dictated by the Assembler Garment Form Radiologist regarding the nonvascular findings. Signed: [facility] Verified Date/Time: 05/10/2018 18:58:16 Reading Location: [place] [address] Cardiology MRI CALCIUM, [id number] 05:20:00 Test Item Value Reference Range Interpretation Comments CALCIUM IONIZED (BEAKER) (test 1.16 mmol/L 1.12-1.27 code = 698) PH, BLOOD (BEAKER) (test code = 7.40 1810) [id number] 04:29:00 Test Item Value Reference Range Interpretation Comments PHOSPHORUS (BEAKER) (test code = 3.5 mg/dL 2.3-4.7 604) [id number] 04:29:00 Test Item Value Reference Range Interpretation Comments MAGNESIUM (BEAKER) (test code = 2.4 mg/dL 1.6-2.6 627) COMPREHENSIVE METABOLIC [id number] 04:29:00 Test Item Value Reference Range Interpretation [...] PATIEN TS. CBC W/PLT COUNT & AUTO [id number] 03:58:00 Test Item Value Reference Range Interpretation [...] (BEAKER) (test code = 2801) U/S, RENAL, [id number] 13:00:00Reason for exam:->akiShould this be performed at [...] MDReport Verified Date/Time: 05/10/2018 13:00:32 Reading Location: [address] Ultrasound Reading Room CALCIUM, [id number] 06:58:00 Test Item Value Reference Range Interpretation Comments CALCIUM IONIZED (BEAKER) (test 1.08 mmol/L 1.12-1.27 L code = 698) PH, BLOOD (BEAKER) (test code = 7.35 1810) B-TYPE NATRIURETIC FACTOR (BNP)2018-05-10 05:49:00 Test Item Value Reference Range Interpretation Comments B-TYPE NATRIURETIC PEPTIDE (BEAKER) 153 pg/mL 0-100 H (test code = 700) [id number] 05:47:00 Test Item Value Reference Range Interpretation Comments MAGNESIUM (BEAKER) 2.4 mg/dL 1.6-2.6 Specimen slightly (test code = 627) hemolyzed [id number] 05:47:00 Test Item Value Reference Range Interpretation Comments PHOSPHORUS (BEAKER) 2.7 mg/dL 2.3-4.7 Specimen slightly (test code = 604) hemolyzed COMPREHENSIVE METABOLIC [id number] 05:47:00 Test Item Value Reference Range Interpretation [...] PATIEN TS. CBC W/PLT COUNT & AUTO [id number] 05:31:00 Test Item Value Reference Range Interpretation [...] (BEAKER) (test code = 2801) EOSINOPHIL SMEAR, [id number] 22:19:00 Test Item Value Reference Range Interpretation Comments EOSINOPHIL SMEAR, URINE (BEAKER) No EOS seen No EOS seen (test code = 1851) URINALYSIS W/ [id number] 22:13:00 Test Item Value Reference Range Interpretation [...] SOURCE(BEAKER) (test code = 2795) SODIUM, RANDOM [id number] 21:38:00 Test Item Value Reference Range Interpretation Comments SODIUM URINE (BEAKER) (test code = < meq/L 243) Reference Range: No NormalsPROTEIN, RANDOM [id number] 21:38:00 Test Item Value Reference Range Interpretation Comments PROTEIN, URINE (BEAKER) (test code = 15 mg/dL 0-14 H 1569) CREATININE, RANDOM [id number] 21:38:00 Test Item Value Reference Range Interpretation Comments CREATININE URINE (BEAKER) (test 173.4 mg/dL code = 375) Reference Range: No NormalsRAD, FOOT, 2 VIEWS, [id number] 13:59:00Reason for exam:->Pain and swelling of left foot after fall.FINAL REPORT Two views left foot Discussion: There is hallux valgus with degen erative changes. No visible acute fracture, dislocation, destructive lesion. Soft tissues are unremarkable. Signed: Darren Ariza MDReport Verified Date/Time: 05/09/2018 13:59:01 Reading Location: [facility] C013W Consult Reading Room PUL PERF IMAGING, PARTIC, [id number] 12:03:00FINAL REPORT PROCEDURE: V/Q LUNG SCAN CPT CODE: 47287 INDICATION: Acute chest pain, PE suspected, dyspnea, [...] Leticia Pimentel Verified Date/Time: 05/09/2018 12:03:05 ReadingLocation: [address] [address] [facility] Reading Room FL, ESOPH, SWALLOW FUNCTION, WITH CINE OR [id number] 11:00:00Reason for exam:->chest painFINAL REPORT Esophagram History: chest pain Technique: Esophagram was performed using thin liquid barium. Total fluoroscopy time: 0.45 minutes Total number of films: 19 Findings:There is no significant esophageal dysmotility. There is no esophageal diverticulum or hiatus hernia. Mild gastroesophageal reflux was observed. Assessment of the gastric fundal region appear unremarkable. Impression: 1. Mild gastroesophageal reflux. Signed: Michael Genaoort Verified Date/Time: 0 05/09/2018 11:00:37 Reading Location: [address] Reading Room HEMOGLOBIN [id number] 10:45:00 Test Item Value Reference Range Interpretation Comments HEMOGLOBIN A1C (BEAKER) (test code = 6.3 % 4.3-6.1 H 368) BASIC METABOLIC [id number] 08:43:00 Test Item Value Reference Range Interpretation [...] FOR DIALYSIS PATIEN TS. Re-draw per labLIPID [id number] 08:42:00 Test Item Value Reference Range Interpretation [...] Borderline 130-159 High 160-189 Very High >=190LITHIUM [id number] 08:31:00 Test Item Value Reference Range Interpretation Comments LITHIUM LEVEL (BEAKER) (test code 0.4 mmol/L 0.8-1.2 L = 630) RAPID DRUG SCREEN, [id number] 07:54:00 Test Item Value Reference Range Interpretation [...] situations. Chain of custody not maintained. Some urdh-vyh-wpxxeum medications, as well as adulterants, may cause inaccurate results. Clinical correlation should be applied. A more comprehensive drug screen or confirmation of a detected drug may be performed upon request. CREATINE KINASE (CK), TOTAL AND [id number] 07:47:00 Test Item Value Reference Range Interpretation Comments CREATINE KINASE TOTAL (BEAKER) 161 U/L 29-200 (test code = 380) CREATINE KINASE-MB (BEAKER) (test 4.9 ng/mL 0.0-6.6 code = 750) CREATINE KINASE-MB INDEX (BEAKER) 3.0 % (test code = 395) CK-MB Reference Range:<6.7 Normal6.7-10.0 Borderline>10.0 AbnormalTROPONIN [id number] 07:47:00 Test Item Value Reference Range Interpretation [...] acute neurological disease, and persistent tachyarrhythmia.BASIC METABOLIC [id number] 04:56:00 Test Item Value Reference Range Interpretation [...] (test code = 413) CT, BRAIN, WITHOUT [id number] 21:00:00FINAL REPORT CT, BRAIN, WITHOUT CONTRAST INDICATION: [...] MDReport Verified Date/Time: 05/08/2018 21:00:20 Reading Location: [address] Reading Room B-TYPE NATRIURETIC FACTOR (BNP)2018-05-08 19:03:00 Test Item Value Reference Range Interpretation Comments B-TYPE NATRIURETIC PEPTIDE (BEAKER) 254 pg/mL 0-100 H (test code = 700) CREATINE KINASE (CK), TOTAL AND [id number] 19:02:00 Test Item Value Reference Range Interpretation Comments CREATINE KINASE TOTAL (BEAKER) 150 U/L 29-200 (test code = 380) CREATINE KINASE-MB (BEAKER) (test 5.5 ng/mL 0.0-6.6 code = 750) CREATINE KINASE-MB INDEX (BEAKER) 3.7 % (test code = 395) CK-MB Reference Range:<6.7 Normal6.7-10.0 Borderline>10.0 AbnormalTROPONIN [id number] 19:02:00 Test Item Value Reference Range Interpretation [...] acute neurological disease, and persistent tachyarrhythmia.BASIC METABOLIC [id number] 18:32:00 Test Item Value Reference Range Interpretation [...] PATIEN TS. CBC W/PLT COUNT & AUTO [id number] 18:28:00 Test Item Value Reference Range Interpretation [...] 0-1 PERCENT (BEAKER) (test code = 2801) [id number] 18:15:00 Test Item Value Reference Range Interpretation Comments PARTIAL THROMBOPLASTIN TIME 30.0 seconds 22.5-36.0 (BEAKER) (test code = 760) Prior to initiating heparinXR Fluoroscopy in Imaging per [id number] 12:25:17 Patient: ALHAJI FARAH Date/Time04/05/2018 11:30 CDTReason [...]
[2020-12-18] MEDS ORDERED: dexAMETHasone 10 MG/ML VIAL ONE (11:20)
[2020-12-18] MEDS ORDERED: cloNIDine HCL 0.1 MG TAB ONE (11:22)
[2020-12-18] MEDS ORDERED: DICYCLOMINE HCL 10 MG CAP ONE (11:23)
[2020-12-18] MEDS ORDERED: NA CHLORIDE 0.9% 1,000 ML ONE (11:23)
[2020-12-18] MEDS ORDERED: ONDANSETRON 4 MG/2 ML VIAL ONE (11:23)
[2020-12-18] MEDS ORDERED: FENTANYL CITR 100 MCG/2 ML ONE (11:23)
[2020-12-18 11:30] LABS: Basophils % 0.4 % (0-1.3); Hematocrit 42.8 % (39.6-49.0); Lymphocytes % 14.9 % (15.3-44.8); MPV 9.6 fL (7.6-11.3); RBC Red Blood Cell Count 4.69 M/uL (4.33-5.43)
[2020-12-18 11:32] LABS: Protime INR 1.12
--- NOTE | 2020-12-18 11:34 | RAD REPORT ---
EXAM DESCRIPTION: Jose Single View12/18/2020 11:01 am CLINICAL HISTORY: Chest pain COMPARISON: November 27, 2020 FINDINGS: The lungs appear clear of acute infiltrate. The heart is normal size. Postsurgical change s involve the chest. IMPRESSION: No acute abnormalities displayed
[2020-12-18 11:44] LABS: ALT/SGPT 55 U/L (12-78); AST/SGOT 22 U/L (15-37); Alkaline Phosphatase 78 U/L (45-117); BUN Blood Urea Nitrogen 18 mg/dL (7-18); Bicarbonate 25 mmol/L (21-32); Bilirubin Direct 0.2 mg/dL (0-0.2); Bilirubin Total 0.5 mg/dL (0.2-1.0); Glucose Level 124 mg/dL (74-106); Lipase 186 U/L (73-393); Magnesium 2.5 mg/dL (1.8-2.4); NT PRO-BNP 2293 pg/mL (<125); Potassium 3.6 mmol/L (3.5-5.1); Protein, Total 8.8 g/dL (6.4-8.2); Sodium Level 138 mmol/L (136-145); Troponin (Emerg Dept Use Only) < 0.02 ng/mL (0.0-0.045)
[2020-12-18] MEDS ORDERED: MORPHINE 4 MG/ML SYR IV PRN (12:08)
[2020-12-18] MEDS ORDERED: ACETAMINOPHEN 500 MG TAB PO PRN (12:08)
--- NOTE | 2020-12-18 12:28 | RAD REPORT ---
EXAM DESCRIPTION: CT - Abdomen Pelvis W Contrast - 12/18/2020 12:06 pm CLINICAL HISTORY: Abdominal pain COMPARISON: August 2020 TECHNIQUE: Computed axial tomography of the abdomen pelvis was obtained. 100 cc Isovue-300 was admin istered intravenously. Oral contrast was not requested which limits evaluation of bowel. All CT scans are performed using dose optimization technique as appropriate and may include automated exposure control or mA/KV adjustment according to patient size. FINDINGS: Mild prominence of the caudate lobe. Hepatic density is relatively homogeneous. Spleen, pancreas, and adrenals appear unremarkable Small renal cysts. Neurostimulator device is in place. Cholecystectomy. Postsurgical changes involve the spine There is no evidence of diverticulitis. The wall of portions of the colon appear mildly thickened. Atherosclerosis. Small hiatal hernia IMPRESSION: The wall of portions of the colon appear mildly thickened which may indicate a mild coli tis
--- NOTE | 2020-12-18 12:34 | ER ---
Nurse's Notes [facility] Name: Blayne Macias Age: 59 yrs Sex: Male : 1960 Arrival Date: 12/18/2020 Time: 09:54 Bed 18 Private MD: Diagnosis: Colitis;Chest pain, unspecified Presentation: 12/18 09:55 Chief complaint: EMS states: N/V/D x2 DAYS. Coronavirus screen: At this time, the bp client does not indicate any symptoms associated with coronavirus-19. Ebola Screen: No symptoms or risks identified at this time. Initial Sepsis Screen: Does the patient meet any 2 criteria? No. Patient's initial sepsis screen is negative. Does the patient have a suspected source of infection? No. Patient's initial sepsis screen is negative. Risk Assessment: Do you want to hurt yourself or someone else? Patient reports no desire to harm self or others. Onset of symptoms is unknown. 09:55 Method Of Arrival: EMS: [facility] bp 09:55 Acuity: SENTHIL 3 bp Triage Assessment: 10:00 General: Appears distressed, uncomfortable, Behavior is cooperative, appropriate for bp age, anxious. Pain: Denies pain. EENT: No deficits noted. Neuro: Level of Consciousness is awake, alert, obeys commands, Oriented to Appropriate for age. Cardiovascular: No deficits noted. Respiratory: No deficits noted. GI: Reports cramping, diarrhea, nausea, vomiting. : No signs and/or symptoms were reported regarding the genitourinary system. Derm: No deficits noted. Musculoskeletal: No deficits noted. Historical: - Allergies: 09:58 Codeine; bp 09:58 Morphine; bp 09:58 PENICILLINS; bp - PMHx: 09:58 "electrical stimulator"; Atrial Fib; Back pain; Bipolar disorder; CAD; CHF; chronic bp back pain; Cirrhosis; Hypertension; COPD; High Cholesterol; Pneumonia; - Immunization history:: Adult Immunizations unknown. - Social history:: Smoking status: Patient denies any tobacco usage or history of. Screenin:00 Abuse screen: Denies threats or abuse. Denies injuries from another. Nutritional bp screening: No deficits noted. Tuberculosis screening: No symptoms or risk factors identified. Fall Risk None identified. Assessment: 10:00 General: SEE TRIAGE NOTE. bp 11:12 Reassessment: No changes from previously documented assessment. Patient and/or family bp updated on plan of care and expected duration. Pain level reassessed. Patient is alert, oriented x 3, equal unlabored respirations, skin warm/dry/pink. PIV PLACED. GI: Abdomen is non-distended, Bowel sounds present X 4 quads. 13:00 Reassessment: No changes from previously documented assessment. Patient and/or family bp updated on plan of care and expected duration. Pain level reassessed. Patient is alert, oriented x 3, equal unlabored respirations, skin warm/dry/pink. ADMIT IN PROCESS. 14:30 Reassessment: PT KELSEY. ADMIT COMPLETED. bp Vital Signs: 09:55 BP 216 / 112; Temp 98.9; Weight 65.77 kg; bp 10:40 BP 212 / 105; Pulse 62; Resp 17; Pulse Ox 100% on R/A; mh5 11:10 BP 229 / 99; Pulse 69; Resp 17; Pulse Ox 100% ; bp 11:15 BP 199 / 89; Pulse 73; sr5 13:36 BP 200 / 99; Pulse 68; Resp 24; Pulse Ox 100% ; bp ED Course: 09:54 Patient arrived in ED. bp 09:55 [facility]C [facility]. kb 09:55 Peng Mitchell MD is Attending Physician. kb 09:57 Triage completed. bp 10:20 Dano Dawson, RN is Primary Nurse. bp 10:26 Missed attempt(s): 22 gauge in right antecubital area. mh5 10:27 EKG done, by ED staff, reviewed by Lisa EM. mh5 10:27 Patient has correct armband on for positive identification. Bed in low position. Call 5 light in reach. Side rails up X 1. sand molder on. Pulse ox on. NIBP on. 11:01 XRAY Chest (1 view) In Process Unspecified. EDMS 11:02 Inserted saline lock: 20 gauge in right forearm, using aseptic technique. Blood bp collected. 12:05 CT Abd/Pelvis - IV Contrast Only In Process Unspecified. EDMS 12:33 Qing Anders MD is Hospitalizing Provider. kb 14:30 No provider procedures requiring assistance completed. Patient admitted, IV remains in bp place. Administered Medications: 11:15 Drug: NS 0.9% 1000 ml Route: IV; Rate: 1000 ml; Site: right forearm; sr5 13:41 Follow up: IV Status: Completed infusion; IV Intake: 1000ml bp 11:21 Drug: Zofran (Ondansetron) 4 mg Route: IVP; Site: right forearm; sr5 11:28 Drug: Bentyl 20 mg Route: PO; sr5 13:43 Follow up: Response: Pain is decreased bp 11:28 Drug: cloNIDine 0.1 mg Route: PO; sr5 13:40 Follow up: Response: No adverse reaction bp 11:28 Drug: fentaNYL (PF) 25 mcg Route: IVP; Site: right forearm; sr5 13:39 Follow up: Response: No adverse reaction bp 12:45 Drug: Flagyl 500 mg Volume: 100 ml; Route: IVPB; Rate: 200 ml/hr; Infused Over: 30 bp mins; Site: right forearm; 15:02 Follow up: IV Status: Completed infusion; IV Intake: 100ml bp 13:15 Drug: Cipro 400 mg Volume: 200 ml; Route: IVPB; Infused Over: 60 mins; Site: right bp forearm; 15:02 Follow up: IV Status: Infusion continued upon admission bp Intake: 13:41 IV: 1000ml; Total: 1000ml. bp 15:02 IV: 100ml; Total: 1100ml. bp Outcome: 12:34 Decision to Hospitalize by Provider. kb 14:30 Admitted to Med/surg accompanied by tech, via wheelchair, room 213, Report called to bp SHADIA ORTIZ 14:30 Condition: stable 14:30 Instructed on the need for admit. 15:02 Patient left the ED. bp Signatures: Dispatcher [employer] Lisa Zavala, MARIA ANTONIA ROWLANDP-Mirza Torres RN RN sr5 Liz Melendez Dano Lira RN RN bp Corrections: (The following items were deleted from the chart) 13:36 09:55 BP 216 / 112; Temp 98.9F; bp bp
--- NOTE | 2020-12-18 12:35 | EDPHYS ---
Physician Documentation [facility] Name: Blayne Macias Age: 59 yrs Sex: Male : 1960 Arrival Date: 12/18/2020 Time: 09:54 Bed 18 Private MD: ED Physician Peng Mitchell HPI: 12/18 10:22 This 59 yrs old Male presents to ER via EMS with complaints of kb Nausea/Vomiting. 10:22 The patient presents to the emergency department with nausea, vomiting, diarrhea, kb abdominal pain. Onset: The symptoms/episode began/occurred 2 day(s) ago. Possible causes: unknown. The symptoms are aggravated by nothing. The symptoms are alleviated by nothing. Associated signs and symptoms: Pertinent positives: abdominal pain, diarrhea, nausea, vomiting, Pertinent negatives: fever. Severity of symptoms: At their worst the symptoms were moderate in the emergency department the symptoms are unchanged. The patient has experienced similar episodes in the past, a few times. The patient has not recently seen a physician. Pt reports chest pain, n/v/d and abd pain for 2 days. States he has been unable to hold down his medications so his BP is up. Unable to tolerate water. Historical: - Allergies: 09:58 Codeine; bp 09:58 Morphine; bp 09:58 PENICILLINS; bp - PMHx: 09:58 "electrical stimulator"; Atrial Fib; Back pain; Bipolar disorder; CAD; CHF; chronic bp back pain; Cirrhosis; Hypertension; COPD; High Cholesterol; Pneumonia; - Immunization history:: Adult Immunizations unknown. - Social history:: Smoking status: Patient denies any tobacco usage or history of. ROS: 10:21 Constitutional: Negative for fever, chills, and weight loss, Respiratory: Negative for kb shortness of breath, cough, wheezing, and pleuritic chest pain, MS/Extremity: Negative for injury and deformity, Skin: Negative for injury, rash, and discoloration, Neuro: Negative for headache, weakness, numbness, tingling, and seizure. 10:21 Cardiovascular: Positive for chest pain, Negative for edema, orthopnea, palpitations, paroxysmal nocturnal dyspnea. 10:21 Abdomen/GI: Positive for abdominal pain, nausea, vomiting, and diarrhea. Exam: 10:22 Constitutional: This is a well developed, well nourished patient who is awake, alert, kb and in no acute distress. Head/Face: Normocephalic, atraumatic. Respiratory: Lungs have equal breath sounds bilaterally, clear to auscultation and percussion. No rales, rhonchi or wheezes noted. No increased work of breathing, no retractions or nasal flaring. Skin: Warm, dry with normal turgor. Normal color with no rashes, no lesions, and no evidence of cellulitis. MS/ Extremity: Pulses equal, no cyanosis. Neurovascular intact. Full, normal range of motion. 10:22 Abdomen/GI: Inspection: abdomen appears normal, Bowel sounds: normal, in all quadrants, Palpation: soft, in all quadrants, mild abdominal tenderness, in all quadrants. 10:22 Neuro: Orientation: is normal, to person, place, time \\T\\ situation. Mentation: is normal, able to follow commands, Motor: is normal, moves all fours, Sensation: is normal. Vital Signs: 09:55 BP 216 / 112; Temp 98.9; Weight 65.77 kg; bp 10:40 BP 212 / 105; Pulse 62; Resp 17; Pulse Ox 100% on R/A; mh5 11:10 BP 229 / 99; Pulse 69; Resp 17; Pulse Ox 100% ; bp 11:15 BP 199 / 89; Pulse 73; sr5 13:36 BP 200 / 99; Pulse 68; Resp 24; Pulse Ox 100% ; bp MDM: 09:55 Patient medically screened. kb 10:21 Data reviewed: vital signs, nurses notes. Data interpreted: Pulse oximetry: on room air kb is 100 %. Interpretation: normal. 12:21 Counseling: I had a detailed discussion with the patient and/or guardian regarding: the kb historical points, exam findings, and any diagnostic results supporting the discharge/admit diagnosis, lab results, radiology results, the need for further work-up and treatment in the hospital. 12/18 10:02 Order name: Basic Metabolic Panel; Complete Time: 11:45 kb 12/18 10:02 Order name: CBC with Diff; Complete Time: 11:36 kb 12/18 10:02 Order name: LFT's; Complete Time: 11:45 kb 12/18 10:02 Order name: Magnesium; Complete Time: 11:45 kb 12/18 10:02 Order name: NT PRO-BNP; Complete Time: 11:45 kb 12/18 10:02 Order name: PT-INR; Complete Time: 11:39 kb 12/18 10:02 Order name: Troponin (emerg Dept Use Only); Complete Time: 11:45 kb 12/18 10:02 Order name: Lipase; Complete Time: 11:45 kb 12/18 12:12 Order name: Basic Metabolic Panel [facility]IA 12/18 12:12 Order name: Basic Metabolic Panel [facility]IA 12/18 12:12 Order name: Lipid Profile [facility]IA 12/18 12:12 Order name: Lipid Profile [facility]IA 12/18 12:12 Order name: Troponin I [facility]IA 12/18 12:12 Order name: Troponin I [facility] 12/18 10:02 Order name: XRAY Chest (1 view); Complete Time: 11:35 kb 12/18 10:02 Order name: EKG; Complete Time: 10:04 kb 12/18 11:47 Order name: CT Abd/Pelvis - IV Contrast Only; Complete Time: 12:30 kb 12/18 12:12 Order name: Troponin I [facility]IA 12/18 12:12 Order name: CONS Physician Consult EDIA 12/18 12:12 Order name: Heart Healthy EDIA 12/18 12:12 Order name: Echo with Doppler [facility]IA 12/18 12:12 Order name: CBC with Automated Diff [facility]IA 12/18 12:12 Order name: CBC with Automated Diff [facility]IA 12/18 10:02 Order name: Cardiac monitoring; Complete Time: 10:27 kb 12/18 10:02 Order name: EKG - Nurse/Tech; Complete Time: 10:27 kb 12/18 10:02 Order name: IV Saline Lock; Complete Time: 11:02 kb 12/18 10:02 Order name: Labs collected and sent; Complete Time: 11:02 kb 12/18 10:02 Order name: O2 Per Protocol; Complete Time: 11:02 kb 12/18 10:02 Order name: O2 Sat Monitoring; Complete Time: 11:02 kb 12/18 11:05 Order name: Labs - recollect needed: recollect all labs; Complete Time: 11:35 bd 12/18 12:12 Order name: EKG Electrocardiogram EDIA 12/18 12:12 Order name: EKG Electrocardiogram EDIA Administered Medications: 11:15 Drug: NS 0.9% 1000 ml Route: IV; Rate: 1000 ml; Site: right forearm; sr5 13:41 Follow up: IV Status: Completed infusion; IV Intake: 1000ml bp 11:21 Drug: Zofran (Ondansetron) 4 mg Route: IVP; Site: right forearm; sr5 11:28 Drug: Bentyl 20 mg Route: PO; sr5 13:43 Follow up: Response: Pain is decreased bp 11:28 Drug: cloNIDine 0.1 mg Route: PO; sr5 13:40 Follow up: Response: No adverse reaction bp 11:28 Drug: fentaNYL (PF) 25 mcg Route: IVP; Site: right forearm; sr5 13:39 Follow up: Response: No adverse reaction bp 12:45 Drug: Flagyl 500 mg Volume: 100 ml; Route: IVPB; Rate: 200 ml/hr; Infused Over: 30 bp mins; Site: right forearm; 15:02 Follow up: IV Status: Completed infusion; IV Intake: 100ml bp 13:15 Drug: Cipro 400 mg Volume: 200 ml; Route: IVPB; Infused Over: 60 mins; Site: right bp forearm; 15:02 Follow up: IV Status: Infusion continued upon admission bp Disposition: 17:56 Co-signature as Attending Physician, Peng Mitchell MD. rn Disposition: 12/18/20 12:34 Hospitalization ordered by Qing Anders for Observation. Preliminary diagnosis are Colitis, Chest pain, unspecified. - Bed requested for Telemetry/MedSurg (observation). - Status is Observation. bp - Condition is Stable. - Problem is new. - Symptoms are unchanged. Signatures: Dispatcher [employer] EDIA Lisa Love, SABAS-Monique DIETITIAN THERAPEUTIC-Letty Perez Roman, MD MD rn Reseckandres, Mirza, RN RN sr5 Dano Dawson RN RN bp Corrections: (The following items were deleted from the chart) 12:48 12:34 Hospitalization Ordered by Qing Anders MD for Observation. Preliminary bd diagnosis is Colitis; Chest pain, unspecified. Bed requested for Telemetry/MedSurg (observation). Status is Observation. Condition is Stable. Problem is new. Symptoms are unchanged. kb 15:02 12:48 12/18/2020 12:34 Hospitalization Ordered by Qing Anders MD for Observation. bp Preliminary diagnosis is Colitis; Chest pain, unspecified. Bed requested for Telemetry/MedSurg (observation). Status is Observation. Condition is Stable. Problem is new. Symptoms are unchanged. bd
--- NOTE | 2020-12-18 12:36 | P.HP ---
Certification for Inpatient Patient admitted to: Observation With expected LOS: <2 Midnights Patient will require the following post-hospital care: None Practitioner: I am a practitioner with admitting privileges, knowledge of patient current condition, hospital course, and medical plan of care. Services: Services provided to patient in accordance with Admission requirements found in Title 42 Section 412.3 of the Code of Federal Regulations Patient History Date of Service: 12/18/20 Reason for admission: N/V/D/Chest pain r/o ACS History of Present Illness: Mr. Young is a 59 yo male with history of HTN, CAD s/p CABG, afib on amiodarone, CKD, HLD, bipolar disorder, and chronic back pain here today with 4 days of nausea, vomiting, and chest pain. He describes the chest pain as crushing pain worse with exertion and accompanied by mild SOB. He also reports vomiting and cannot hold down his BP medication. He was hypertensive to 216/112 at presentati on. He also reports night sweats and 3 episodes of dark water diarrhea per day. He denies fever and recent antibiotic use. CT scan revealed mild colitis. CXR, troponins normal. Hgb/Hct 14.6/42.8, WBC 13.2, Plt 321, Na 138, K 3.6, Cl 105, HCO3 25, BUN 18, Cr 1.01, Glu 124. BNP 2293. Allergies Penicillins Allergy (Intermediate, Verified 09/09/20 23:52) Hives/Rash codeine [From Tylenol-Codeine] Allergy (Verified 09/09/20 23:52) Itching morphine Allergy (Verified 09/09/20 23:51) Itching oxycodone Allergy (Verified 09/09/20 23:52) Itching Home Medications: Carvedilol [Coreg] 25 mg PO BID 09/09/20 Furosemide 40 mg PO BID 09/09/20 Hydralazine HCl [Apresoline] 50 mg PO TID 09/09/20 Isosorbide Mononitrate [Isosorbide Mononitrate ER] 60 mg PO DAILY 09/09/20 [place] Carbonate [Lithotabs *] 600 mg PO BEDTIME 09/09/20 Losartan Potassium [Cozaar*] 25 mg PO DAILY 09/09/20 Amiodarone HCl 100 mg PO BID 09/10/20 Amlodipine Besylate [Norvasc] 10 mg PO DAILY 09/10/20 Aspirin [Aspirin EC 81 MG] 81 mg PO DAILY 09/10/20 Citalopram Hydrobromide [Celexa] 20 mg PO DAILY 09/10/20 Clopidogrel Bisulfate [Plavix*] 75 mg PO DAILY 09/10/20 Atorvastatin Calcium [Lipitor] 40 mg PO BEDTIME #30 tablet 11/28/20 Clonidine HCl [Catapres*] 0.2 mg PO Q6H PRN 11/28/20 HYDROcodone bitartrate [Hydrocodone Bitartrate ER] 30 mg PO Q12H 11/28/20 Potassium Chloride 20 meq PO DAILY 11/28/20 - Past Medical/Surgical History Diabetic: No -: Chronic back pain -: HTN -: CAD, CABG times 2 vessels in December 2015 -: COPD -: Exposure to asbestosis -: Bipolar disorder -: Hyperlipidemia -: Severe sleep apnea -: Chronic pain syndrome -: CHF -: Atrial fibrillation on amiodarone-no anti coagulation therapy -: pneumonia -: Right Leg surgery -: Back surgery -: Cholecystectomy -: Cardiac catheterization 04/13 without stent placement -: CABG- Double bypass 12/2015 -: Neck Surgery -: Cervical fusion -: L4-L5-S1 fusion Psychosocial/ Personal History: Single, Children-1, Work-Disabled due to back. - Family History Mother Medical History: Cancer Notes: Patient stated mother of breast cancer Father Medical History: Heart disease, Cancer Notes: Patient stated father of stomach and bone cancer. - Social History Smoking Status: Current every day smoker Counseled patient to stop smoking for: less than 10 minutes Smoking therapy provided: Yes Alcohol use: No CD- Drugs: No Caffeine use: Yes Place of Residence: Home Review of Systems General: Sweats, Malaise Eyes: Unremarkable ENT: Unremarkable Respiratory: Shortness of Breath Cardiovascular: Chest Pain Gastrointestinal: Nausea, Vomiting, Diarrhea Genitourinary: Unremarkable Musculoskeletal: Back Pain Integumentary: Unremarkable Neurological: Unremarkable Lymphatics: Unremarkable Physical Examination - Vital Signs Temperature: 98.9 F Blood Pressure: 189/89 Pulse: 62 Respirations: 17 Pulse Ox (%): 100 - Physical Exam General: Alert, In no apparent distress, Oriented x3, Cooperative HEENT: Atraumatic, Normocephalic, PERRLA, Mucous membr. moist/pink, EOMI Neck: Supple, 2+ carotid pulse no bruit, JVD not distended, No Thyromegaly, No LAD Respiratory: Clear to auscultation bilaterally, Normal air movement Cardiovascular: No edema, Normal pulses, Regular rate/rhythm, Normal S1 S2, No gallops, No rubs, No murmurs Gastrointestinal: Normal bowel sounds, Soft and benign, Non-distended, No ascites, No masses, No rebound, No guarding, Other (epigastric tenderness), Tenderness Musculoskeletal: No clubbing, No swelling, No contractures, No erythema, No tenderness, No warmth Integumentary: No rashes, No breakdown, No significant lesion, No tenderness/swelling, No erythema, No warmth, No cyanosis Neurological: Normal speech, Sensation intact, Cranial nerves 3-12 intact, Normal affect Lymphatics: No axilla or inguinal lymphadenopathy - Studies Laboratory Data (last 24 hrs) 12/18/20 11:15: PT 12.9 H, INR 1.12 12/18/20 11:15: WBC 13.20 H, Hgb 14.6, Hct 42.8, Plt Count 321 12/18/20 11:15: Sodium 138, Potassium 3.6, BUN 18, Creatinine 1.01, Glucose 124 H, Magnesium 2.5 H, Total Bilirubin 0.5, AST 22, ALT 55, Alkaline Phosphatase 78, Lipase 186 Assessment & Plan - Problems (Diagnosis) (1) Chest pain Onset Date: 11/22/17 Current Visit: No Status: Acute Qualifiers: Chest pain type: unspecified Qualified Code(s): R07.9 - Chest pain, unspecified (2) Intractable nausea and vomiting Onset Date: ~12/16/20 Current Visit: No Status: Acute (3) Bipolar 1 disorder Onset Date: 10/13/16 Current Visit: No Status: Chronic (4) CAD (coronary artery disease) Onset Date: 01/20/16 Current Visit: No Status: Chronic Qualifiers: Coronary Disease-Associated Artery/Lesion type: bypass graft [place] vs. transplanted heart: [place] heart Associated angina: with unspecified angina Qualified Code(s): I25.709 - Atherosclerosis of coronary artery bypass graft(s), unspecified, with unspecified angina pectoris (5) CHF (congestive heart failure) Onset Date: 01/20/16 Current Visit: No Status: Chronic Qualifiers: Heart failure type: unspecified Heart failure chronicity: chronic Qualified Code(s): I50.9 - Heart failure, unspecified (6) COPD (chronic obstructive pulmonary disease) Onset Date: 01/20/16 Current Visit: No Status: Chronic Qualifiers: COPD type: unspecified COPD Qualified Code(s): J44.9 - Chronic obstructive pulmonary disease, unspecified (7) Hypertension Current Visit: Yes Status: Acute (8) Colitis Onset Date: 11/01/15 Current Visit: No Status: Acute (9) Hypertensive urgency Current Visit: Yes Status: Acute (10) Back pain Current Visit: Yes Status: Chronic Qualifiers: Back pain location: low back pain Chronicity: chronic Back pain laterality: unspecified Sciatica presence: unspecified whether sciatica present Qualified Code(s): M54.5 - Low back pain; G89.29 - Other chronic pain - Plan #chest pain: consult cardiology. Trend troponins and EKG. #HTN urgency: given clonidine in the ER. Will continue to monitor then restart home medications. Norvasc 10mg, carvedilol 12.5mg, losartan 25mg, hydralazine 50mg TID, clonidine 0.2mg q6hr #CT showing possible mild colitis: continue to monitor. Will start Zosyn. C diff toxin, fecal leukocytes and stool culture pending. #nausea/vomiting: patient stable with Zofran #bipolar disorder: continue with lithium 600mg and celexa 20mg #CAD: continue with home medications. ASA 81 mg, Plavix 75mg, isosorbide mononitrate 60mg, Lipitor 40mg #CHF: BNP of 2293. Lower that it has been in the past. Patient does not appear volume overload and lungs are clear. Continue with home dose of Lasix 40 mg. #COPD: stable. Continue to monitor. #afib: amiodarone 100mg BID #back pain: patient takes hydrocodone ER 30mg at home. Sees pain management outpatient. Given fentanyl 25mcg in the ER. Continue to monitor. Discharge Plan: Home Plan to discharge in: 24 Hours - Advance Directives Does patient have a Living Will: No Does patient have a Durable POA for Healthcare: No - Code Status/Comfort Care Code Status Assessed: Yes Code Status: Full Code Critical Care: No Time Spent Managing PTS Care (In Minutes): 70
[2020-12-18] MEDS ORDERED: CIPROFLOXACIN 400mg IV 400 MG/200 ML BAG IV ONE (13:47)
[2020-12-18] MEDS ORDERED: METRONIDAZOLE 500mg IVPB 500 MG/100 ML BAG IV ONE (13:48)
[2020-12-18] MEDS: ONDANSETRON 4 MG/2 ML VIAL IV PRN ×2 (15:04→20:05)
[2020-12-18] MEDS: FENTANYL CITR 100 MCG/2 ML IV PRN ×2 (15:04→20:04)
[2020-12-18 15:23] VITALS: BMI 21.4
[2020-12-18] MEDS ORDERED: Levofloxacin500mg IV 500 MG/100 ML BAG IV ONE (15:38)
[2020-12-18] MEDS: METRONIDAZOLE 500mg IVPB 500 MG/100 ML BAG IV SCH (16:54)
[2020-12-18] MEDS ORDERED: PIPER/TAZO/NS 3.375gm 3.375 GM/100 ML BAG IVPB SCH (18:00)
[2020-12-18] MEDS: METOPROLOL TAR 50 MG TAB PO SCH (20:04)
[2020-12-18] MEDS: ALPRAZOLAM 0.25 MG TABLET PO PRN (20:04)
[2020-12-18] MEDS: ENOXAPARIN 60 MG/0.6 ML SQ SCH (20:05)
[2020-12-19] MEDS: FENTANYL CITR 100 MCG/2 ML IV PRN ×4 (00:18→20:48)
[2020-12-19] MEDS ORDERED: HYDRALAZINE HCL 20 MG/ML VIAL IV PRN (00:25)
[2020-12-19] MEDS: METRONIDAZOLE 500mg IVPB 500 MG/100 ML BAG IV SCH ×3 (01:00→16:36)
[2020-12-19 04:02] LABS: Absolute Lymphocytes (CBC) 0.5 K/uL (0.7-4.9); Basophils % 0.2 % (0-1.3); Hematocrit 36.1 % (39.6-49.0); Lymphocytes % 4.1 % (15.3-44.8); MPV 9.3 fL (7.6-11.3)
[2020-12-19 04:18] LABS: Potassium 3.4 mmol/L (3.5-5.1)
[2020-12-19 04:57] LABS: Blood Morphology Comment NOT SEEN (NOT SEEN); Platelet Estimate ADEQ
--- NOTE | 2020-12-19 05:39 | EKG ---
Test Date: 2020-12-18 Test Time: 10:22:52 Mentally Impaired Teacher: SABRINA MEASUREMENT RESULTS: Intervals: Rate: 65 UT: 176 QRSD: 110 QT: 570 QTc: 592 [place]: P: 77 UT: 176 QRS: 70 T: 37 INTERPRETIVE STATEMENTS: Normal sinus rhythm Septal infarct, age undetermined ST & T wave abnormality, consider lateral ischemia Prolonged QT Abnormal ECG Compared to ECG 11/27/2020 17:32:30 ST (T wave) deviation now present Possible ischemia now present Myocardial infarct finding still present Electronically Signed On 12-19-20 05:35:44 MINI BAR ATTENDANT by Ghulam Berrios
[2020-12-19] MEDS ORDERED: CLONIDINE HCL 0.3 MG TAB PO ONE ×2 (08:02→08:53)
[2020-12-19] MEDS: ENOXAPARIN 60 MG/0.6 ML SQ SCH ×2 (09:00→20:46)
[2020-12-19] MEDS: NICOTINE 14 MG/PAT TD SCH (09:00)
[2020-12-19] MEDS: METOPROLOL TAR 50 MG TAB PO SCH ×2 (09:00→21:00)
[2020-12-19] MEDS: ASPIRIN EC 81 MG TAB PO SCH (09:00)
[2020-12-19] MEDS: AMIODARONE HCL 200 MG TAB PO SCH ×2 (09:00→21:52)
--- NOTE | 2020-12-19 09:02 | ECHO ---
HEIGHT: 5 ft 9 in WEIGHT: 145 lb 0 oz DATE OF STUDY: 12/18/[address]: Qing Anders MD 2-DIMENSIONAL: YES M.MODE: YES DOPPLER: YES COLOR FLOW: YES TDS: NO PORTABLE: NO DEFINITY: NO BUBBLE STUDY: NO DIAGNOSIS: CHEST PAIN CARDIAC HISTORY: CATHERIZATION: NO SURGERY: YES PROSTHETIC VALVE: NO PACEMAKER: NO MEASUREMENTS (cm) DIASTOLIC (NORMALS) SYSTOLIC (NORMALS) IVSd 1.1 (0.6-1.2) LA Diam 2.7 (1.9-4.0) LVEF 51% LVIDd 2.9 (3.5-5.7) LVIDs 2.2 (2.0-3.5) %FS 25% LVPWd 1.2 (0.6-1.2) Ao Diam 2.9 (2.0-3.7) 2 DIMENSIONAL ASSESSMENT: RIGHT ATRIUM: NORMAL LEFT ATRIUM: NORMAL RIGHT VENTRICLE: NORMAL LEFT VENTRICLE: NORMAL TRICUSPID VALVE: NORMAL MITRAL VALVE: NORMAL PULMONIC VALVE: NORMAL AORTIC VALVE: NORMAL PERICARDIAL EFFUSION: NONE AORTIC ROOT: NORMAL LEFT VENTRICULAR WALL MOTION: DIASTOLIC DYSFUNCTION. DOPPLER/COLOR FLOW: MILD TRICUSPID REGURGITATION. COMMENTS: MILD TRICUSPID REGURGITATION. NORMAL RIGHT VENTRICULAR SYSTOLIC PRESSURE. DIASTOLIC DYSFUNCTION. NO EFFUSION. TECHNOLOGIST: Thanh JOHNSON
--- NOTE | 2020-12-19 09:31 | P.DS ---
Discharge Date: 12/19/20 Disposition: ROUTINE DISCHARGE Discharge Condition: GOOD Reason for Admission: N/V/D/Chest pain r/o ACS Consultations: Cardiology - Problems (1) Chest pain Onset Date: 11/22/17 Status: Acute Qualifiers: Chest pain type: unspecified Qualified Code(s): R07.9 - Chest pain, unspecified (2) Intractable nausea and vomiting Onset Date: ~12/16/20 Status: Acute (3) Bipolar 1 disorder Onset Date: 10/13/16 Status: Chronic (4) CAD (coronary artery disease) Onset Date: 01/20/16 Status: Chronic Qualifiers: Coronary Disease-Associated Artery/Lesion type: bypass graft [place] vs. transplanted heart: [place] heart Associated angina: with unspecified angina Qualified Code(s): I25.709 - Atherosclerosis of coronary artery bypass graft(s), unspecified, with unspecified angina pectoris (5) CHF (congestive heart failure) Onset Date: 01/20/16 Status: Chronic Qualifiers: Heart failure type: unspecified Heart failure chronicity: chronic Qualified Code(s): I50.9 - Heart failure, unspecified (6) COPD (chronic obstructive pulmonary disease) Onset Date: 01/20/16 Status: Chronic Qualifiers: COPD type: unspecified COPD Qualified Code(s): J44.9 - Chronic obstructive pulmonary disease, unspecified (7) Hypertension Status: Acute Qualifiers: Hypertension type: essential hypertension Qualified Code(s): I10 - Essential (primary) hypertension (8) Colitis Onset Date: 11/01/15 Status: Acute (9) Hypertensive urgency Status: Acute (10) Back pain Status: Chronic Qualifiers: Back pain location: low back pain Chronicity: chronic Back pain laterality: unspecified Sciatica presence: unspecified whether sciatica present Qualified Code(s): M54.5 - Low back pain; G89.29 - Other chronic pain Brief History of Present Illness: Mr. Young is a 59 yo male with history of HTN, CAD s/p CABG, afib on amiodarone, CKD, HLD, bipolar disorder, and chronic back pain here today with 4 days of nausea, vomiting, and chest pain. He describes the chest pain as crushing pain worse with exertion and accompanied by mild SOB. He also reports vomiting and cannot hold down his BP medication. He was hypertensive to 216/112 at presentation. He also reports night sweats and 3 episodes of dark watery diarrhea per day. He denies fever and recent antibiotic use. CT scan revealed mild colitis. CXR, troponins normal. Hgb/Hct 14.6/42.8, WBC 13.2, Plt 321, Na 138, K 3.6, Cl 105, HCO3 25, BUN 18, Cr 1.01, Glu 124. BNP 2293. Hospital Course: Patient did well during hospital stay. Patient stress test was negative. At this time, patient is stable for discharge home with outpatient follow up. Vital Signs/Physical Exam: Temp Pulse Resp BP Pulse Ox 98.9 F 66 18 156/78 H 100 12/19/20 08:00 12/19/20 08:00 12/19/20 09:13 12/19/20 08:00 12/19/20 09:13 General: Alert, In no apparent distress, Oriented x3 Respiratory: Clear to auscultation bilaterally, Normal air movement Cardiovascular: No edema, Normal pulses, Regular rate/rhythm, Normal S1 S2 Gastrointestinal: Normal bowel sounds, Soft and benign, Non-distended Musculoskeletal: No clubbing Laboratory Data at Discharge: WBC 12.30 K/uL (4.3-10.9) H 12/19/20 03:03 Hgb 12.3 g/dL (13.6-17.9) L 12/19/20 03:03 Hct 36.1 % (39.6-49.0) L D 12/19/20 03:03 Plt Count 246 K/uL (152-406) D 12/19/20 03:03 PT 12.9 SECONDS (9.5-12.5) H 12/18/20 11:15 INR 1.12 12/18/20 11:15 Sodium 139 mmol/L (136-145) 12/19/20 03:03 Potassium 3.4 mmol/L (3.5-5.1) L 12/19/20 03:03 BUN 20 mg/dL (7-18) H 12/19/20 03:03 Creatinine 1.03 mg/dL (0.55-1.3) 12/19/20 03:03 Glucose 98 mg/dL (74-106) 12/19/20 03:03 Magnesium 2.5 mg/dL (1.8-2.4) H 12/18/20 11:15 Total Bilirubin 0.5 mg/dL (0.2-1.0) 12/18/20 11:15 AST 22 U/L (15-37) 12/18/20 11:15 ALT 55 U/L (12-78) 12/18/20 11:15 Alkaline Phosphatase 78 U/L (45-117) 12/18/20 11:15 Troponin I 0.02 ng/mL (0.0-0.045) 12/19/20 03:03 Triglycerides 155 mg/dL (<150) H 12/19/20 03:03 Cholesterol 123 mg/dL (<200) 12/19/20 03:03 HDL Cholesterol 46 mg/dL (40-60) 12/19/20 03:03 Cholesterol/HDL Ratio 2.67 12/19/20 03:03 Lipase 186 U/L (73-393) 12/18/20 11:15 Home Medications: Atorvastatin Calcium [Lipitor] 40 mg PO DAILY 12/18/20 Clonidine HCl [Catapres*] 0.2 mg PO Q6HP PRN 12/18/20 Gabapentin 600 mg PO BEDTIME 12/18/20 ALPRAZolam [Xanax*] 0.25 mg PO TID PRN #30 tab 12/19/20 Amitriptyline [Elavil] 25 mg PO BEDTIME 12/19/20 Hydrocodone Bit/Acetaminophen [[place] 10-325 Tablet] 1 each PO Q6HP PRN #30 tablet 12/19/20 New Medications: Hydrocodone Bit/Acetaminophen [[place] 10-325 Tablet] 1 each PO Q6HP PRN #30 tablet PRN Reason: Pain Scale 8-10 (Severe) ALPRAZolam [Xanax*] 0.25 mg PO TID PRN #30 tab PRN Reason: Anxiety Physician Discharge Instructions: -OK TO DC IV AND DC HOME -FOLLOW-UP WITH PCP IN 1-2 WEEKS -FOLLOW-UP WITH CARDIOLOGY IN 1-2 WEEKS -PLEASE MAKE SURE ALL DIAGNOSTIC STUDIES ARE AVAILABLE AND HAVE BEEN REVIEWED WITH PATIENT PRIOR TO DISCHARGE -RETURN TO THE ER IF symptoms worsen -CALL DR. FLORES AT [phone] IF ANY QUESTIONS REGARDING HOSPITAL STAY -PLEASE CALL THE FLOOR AT [phone] IF ANY MEDICATION OR NURSING QUESTIONS Diet: AHA Followup: Ghulam Berrios MD [ACTIVE - CAN ADMIT] - NONE,NONE [Primary Care Provider] - Time spent managing pt's care (in minutes): 55
[2020-12-19] MEDS ORDERED: cloNIDine HCL 0.1 MG TAB PO SCH ×2 (13:00→14:00)
[2020-12-19] MEDS ORDERED: MORPHINE 4 MG/ML SYR IV ONE ×2 (13:07→16:00)
[2020-12-19] MEDS: ALPRAZOLAM 0.25 MG TABLET PO PRN ×2 (15:23→21:53)
--- NOTE | 2020-12-19 15:32 | P.PN ---
Subjective Date of Service: 12/19/20 Spoke with Cardiology and since patient is given than typical signs of angina they wanted to do a stress test as patient has not been following up as an outpatient. His insurance also is not something that they take anymore and he probably will not get any further evaluation for a while. At this time they are recommending to do a stress test in the morning prior to discharge. Will hold the discharge pending stress test results per Cardiology request Review of Systems 10-point ROS is otherwise unremarkable Physical Examination - Vital Signs Temperature: 99.7 F Blood Pressure: 155/81 Pulse: 52 Respirations: 18 Pulse Ox (%): 99 - Physical Exam General: Alert, In no apparent distress, Oriented x3 Respiratory: Clear to auscultation bilaterally, Normal air movement Cardiovascular: Regular rate/rhythm, Normal S1 S2, No murmurs Gastrointestinal: Normal bowel sounds, Soft and benign, Non-distended, No tenderness Musculoskeletal: No clubbing, No swelling, No tenderness Neurological: Sensation intact, Cranial nerves 3-12 intact - Studies Medications List Reviewed: Yes Assessment & Plan - Problems (Diagnosis) (1) Chest pain Onset Date: 11/22/17 Current Visit: Yes Status: Acute Qualifiers: Chest pain type: unspecified Qualified Code(s): R07.9 - Chest pain, unspecified (2) Intractable nausea and vomiting Onset Date: ~12/16/20 Current Visit: No Status: Acute (3) Bipolar 1 disorder Onset Date: 10/13/16 Current Visit: No Status: Chronic (4) CAD (coronary artery disease) Onset Date: 01/20/16 Current Visit: No Status: Chronic Qualifiers: Coronary Disease-Associated Artery/Lesion type: bypass graft [place] vs. transplanted heart: [place] heart Associated angina: with unspecified angina Qualified Code(s): I25.709 - Atherosclerosis of coronary artery bypass graft(s), unspecified, with unspecified angina pectoris (5) CHF (congestive heart failure) Onset Date: 01/20/16 Current Visit: No Status: Chronic Qualifiers: Heart failure type: unspecified Heart failure chronicity: chronic Qualified Code(s): I50.9 - Heart failure, unspecified (6) COPD (chronic obstructive pulmonary disease) Onset Date: 01/20/16 Current Visit: No Status: Chronic Qualifiers: COPD type: unspecified COPD Qualified Code(s): J44.9 - Chronic obstructive pulmonary disease, unspecified (7) Hypertension Current Visit: Yes Status: Acute Qualifiers: Hypertension type: essential hypertension Qualified Code(s): I10 - Essential (primary) hypertension (8) Colitis Onset Date: 11/01/15 Current Visit: No Status: Acute (9) Hypertensive urgency Current Visit: Yes Status: Acute (10) Back pain Current Visit: Yes Status: Chronic Qualifiers: Back pain location: low back pain Chronicity: chronic Back pain laterality: unspecified Sciatica presence: unspecified whether sciatica present Qualified Code(s): M54.5 - Low back pain; G89.29 - Other chronic pain - Plan #Chest pain: consult cardiology. Trend troponins and EKG. #HTN urgency: given clonidine in the ER. Will continue to monitor then restart home medications. Norvasc 10mg, carvedilol 12.5mg, losartan 25mg, hydralazine 50mg TID, clonidine 0.2mg q6hr #Colitis: continue to monitor. Will start Zosyn. C diff toxin, fecal leukocytes and stool culture pending. #Nausea/vomiting: patient stable with Zofran #Bipolar disorder: continue with lithium 600mg and celexa 20mg #CAD: continue with home medications. ASA 81 mg, Plavix 75mg, isosorbide mononitrate 60mg, Lipitor 40mg #CHF: BNP of 2293. Lower that it has been in the past. Patient does not appear volume overload and lungs are clear. Continue with home dose of Lasix 40 mg. #COPD: stable. Continue to monitor. #Afib: amiodarone 100mg BID #Back pain: patient takes hydrocodone ER 30mg at home. Sees pain management outpatient. Given fentanyl 25mcg in the ER. Continue to monitor. - Advance Directives Does patient have a Living Will: No Does patient have a Durable POA for Healthcare: No - Code Status/Comfort Care Code Status: Full Code
[2020-12-19] MEDS: cloNIDine HCL 0.1 MG TAB PO SCH ×2 (16:31→21:00)
--- NOTE | 2020-12-19 20:33 | CON ---
Date of Consultation: 12/19/2020 Reason For Consultation: Chest pain. History Of Present Illness: A 59-year-old male with history of coronary artery disease status post 2 -vessel CABG few years back, history of atrial fibrillation, chronic kidney disease, dyslipidemia, bi polar disorder, who presented with chest pain. He describes it as crushing chest pain, worsens with exertion, goes to the left shoulder, neck, and left upper extremity; lasts for about 15-30 minutes an d keeps coming and going, had 4 episodes today. Last stress test was a few years back as per his rep ort. He gets also nauseated and vomited once. Past Medical History: As outlined above in HPI. Medications: Refer to reconciliation sheet for detailed list. Allergies: THE PATIENT HAS MULTIPLE ALLERGY MEDICATIONS. THIS WAS REVIEWED. PLEASE REFER TO NURSE' S NOTE ON IT. Social History: Currently, he is smoking about 5 cigarettes a day. Does not drink or use any drugs. Family History: No mature coronary artery disease or cancer. Review of Systems: All systems were reviewed and they were negative except what mentioned in the HPI. Physical Examination: Vital Signs: Temperature is 99.7, pulse 52, breathing at 18, blood pressure is 155/81, saturating 99 %. General: Pleasant, middle-aged male, in no apparent distress. Head and Neck: Pupils are equal, reactive to light. Intact eye movements. No JVD. No cervical lym phadenopathy. Neck: Supple. Thyroid is not enlarged. Lungs: Clear to auscultation bilaterally. No rhonchi, rales, or crackles. No accessory muscle use. Heart: Regular rate and rhythm. No extra sounds. Abdomen: Soft, nontender. Bowel sounds positive. No organomegaly. No rigidity or rebound. Extremities: No clubbing or cyanosis. Intact pulses. Skin: No rashes. Neurologic: Alert and oriented x3. No acute focal deficits appreciate. Investigations: Troponins are negative. Creatinine is 1.03. Assessment And Plan: Chest pain. He is describing very typical pain with known history of coronary artery disease; however, his troponins are negative. I recommend exercise nuclear stress test and if this is abnormal coronary angiogram to follow. Reviewing the records, the patient had a cardiac cat h done back in March by myself and he has significant [place] coronary artery disease with patent graft s. Again, since his symptoms are escalating, we will obtain a stress test and based on that we will decide further intervention if needed. /REINA Voice ID: [id number] Report ID: [id number]
[2020-12-20] MEDS: FENTANYL CITR 100 MCG/2 ML IV PRN ×3 (01:01→10:15)
[2020-12-20] MEDS: METRONIDAZOLE 500mg IVPB 500 MG/100 ML BAG IV SCH ×2 (01:02→08:02)
[2020-12-20 06:32] VITALS: O2SAT 100
[2020-12-20 07:43] LABS: Potassium 3.1 mmol/L (3.5-5.1)
[2020-12-20] MEDS ORDERED: MORPHINE 2 MG/ML SYR IV ONE (08:01)
[2020-12-20] MEDS: NICOTINE 14 MG/PAT TD SCH (08:02)
[2020-12-20] MEDS: ENOXAPARIN 60 MG/0.6 ML SQ SCH (08:02)
[2020-12-20] MEDS: cloNIDine HCL 0.1 MG TAB PO SCH (09:42)
[2020-12-20] MEDS: ASPIRIN EC 81 MG TAB PO SCH (09:43)
[2020-12-20] MEDS: METOPROLOL TAR 50 MG TAB PO SCH (09:43)
[2020-12-20] MEDS: AMIODARONE HCL 200 MG TAB PO SCH (09:44)
[2020-12-20] MEDS ORDERED: REGADENOSON 0.4 MG/5 ML SYR IV ONE (10:34)
[2020-12-20 12:41] VITALS: BP 162/77; TEMP 96.9
--- NOTE | 2020-12-20 13:01 | RAD REPORT ---
EXAM DESCRIPTION: NM - Rest Stress Cardiac Imaging - 12/20/2020 12:27 pm CLINICAL HISTORY: Chest pain COMPARISON: February 2020 TECHNIQUE: The patient was administered 9.9 mCi of Tc 99m Sestamibi prior to resting SPECT imaging o f the heart. The patient was then administered 31.7 mCi of Tc 99m Sestamibi following exercise or pha rmacologic stress. Multiplanar SPECT images were reviewed. FINDINGS: The end diastolic volume is 159 ml, the end systolic volume is 81 ml, and the ejection fra ction is 49 %. Volumes and ejection fraction are not substantially different from the comparison. No stress-induced ischemic changes are identifiable. Moderate-sized fixed defect is now present in t he anterior wall. Moderately large area of scarring at the left ventricular apex matching the prior s tudy. IMPRESSION: No stress-induced ischemic changes identified. Focal scarring changes in the anterior wall and apex. End-diastolic volume measured 159 mL with a 49% EF.
--- NOTE | 2020-12-20 14:59 | TREADPHA ---
DX: CHEST PAIN Date of Study: 12/20/20 Ht: 5' 9 " Wt: 145 lb 0 oz Consulting Physician: TROY MEDICATIONS: TYLENOL, XANAX, ASPIRIN, LOVENOX, LOPRESSOR, APRESOLINE, NICODREM HISTORY: DOUBLE BYPASS, HIGH BLOOD PRESSURE, HIGH CHOLESTEROL PHYSICIAL EXAMINATION: RESTING B.P.: 155/82 RESTING H.R.: 46 RESTING EKG: PROTOCOL: L[place] EXERCISE TIME: 3:30 B.P. AT [place] STRESS: 118/66 IMPRESSION: LEXISCAN STRESS TEST PERFORMED. CARDIOLITE INJECTED PER PROTOCOL. SEE NUCLEAR MEDICINE REPORT. NO SUPRA VENTRICULAR TACHYCARDIA, NO VENTRICULAR TACHYCARIA, NO ARRHYTHMIAS NOTED. PATIENT TOLERATED WELL.
[2020-12-20 15:20] LABS: C.diff Antigen/Toxin Ag neg : Tox neg (NEG : NEG)
--- NOTE | 2021-01-07 | P.DS ---
Discharge Date: 12/20/20 Disposition: ROUTINE DISCHARGE Discharge Condition: GOOD Reason for Admission: N/V/D/Chest pain r/o ACS Consultations: Cardiology - Problems (1) Chest pain Onset Date: 11/22/17 Status: Acute Qualifiers: Chest pain type: unspecified Qualified Code(s): R07.9 - Chest pain, unspecified (2) Intractable nausea and vomiting Onset Date: ~12/16/20 Status: Acute (3) Bipolar 1 disorder Onset Date: 10/13/16 Status: Chronic (4) CAD (coronary artery disease) Onset Date: 01/20/16 Status: Chronic Qualifiers: Coronary Disease-Associated Artery/Lesion type: bypass graft [place] vs. transplanted heart: [place] heart Associated angina: with unspecified angina Qualified Code(s): I25.709 - Atherosclerosis of coronary artery bypass graft(s), unspecified, with unspecified angina pectoris (5) CHF (congestive heart failure) Onset Date: 01/20/16 Status: Chronic Qualifiers: Heart failure type: unspecified Heart failure chronicity: chronic Qualified Code(s): I50.9 - Heart failure, unspecified (6) COPD (chronic obstructive pulmonary disease) Onset Date: 01/20/16 Status: Chronic Qualifiers: COPD type: unspecified COPD Qualified Code(s): J44.9 - Chronic obstructive pulmonary disease, unspecified (7) Hypertension Status: Acute Qualifiers: Hypertension type: essential hypertension Qualified Code(s): I10 - Essential (primary) hypertension (8) Colitis Onset Date: 11/01/15 Status: Acute (9) Hypertensive urgency Status: Acute (10) Back pain Status: Chronic Qualifiers: Back pain location: low back pain Chronicity: chronic Back pain laterality: unspecified Sciatica presence: unspecified whether sciatica present Qualified Code(s): M54.5 - Low back pain; G89.29 - Other chronic pain Brief History of Present Illness: Mr. Young is a 59 yo male with history of HTN, CAD s/p CABG, afib on amiodarone, CKD, HLD, bipolar disorder, and chronic back pain here today with 4 days of nausea, vomiting, and chest pain. He describes the chest pain as crushing pain worse with exertion and accompanied by mild SOB. He also reports vomiting and cannot hold down his BP medication. He was hypertensive to 216/112 at presentation. He also reports night sweats and 3 episodes of dark watery diarrhea per day. He denies fever and recent antibiotic use. CT scan revealed mild colitis. CXR, troponins normal. Hgb/Hct 14.6/42.8, WBC 13.2, Plt 321, Na 138, K 3.6, Cl 105, HCO3 25, BUN 18, Cr 1.01, Glu 124. BNP 2293. Hospital Course: Patient did well during hospital stay. Patient stress test was negative. At this time, patient is stable for discharge home with outpatient follow up. Vital Signs/Physical Exam: Temp Pulse Resp BP Pulse Ox 96.9 F 54 18 162/77 H 99 12/20/20 12:00 12/20/20 12:00 12/20/20 12:00 12/20/20 12:00 12/20/20 12:00 Laboratory Data at Discharge: WBC 12.30 K/uL (4.3-10.9) H 12/19/20 03:03 Hgb 12.3 g/dL (13.6-17.9) L 12/19/20 03:03 Hct 36.1 % (39.6-49.0) L D 12/19/20 03:03 Plt Count 246 K/uL (152-406) D 12/19/20 03:03 PT 12.9 SECONDS (9.5-12.5) H 12/18/20 11:15 INR 1.12 12/18/20 11:15 Sodium 142 mmol/L (136-145) 12/20/20 07:12 Potassium 3.1 mmol/L (3.5-5.1) L 12/20/20 07:12 BUN 24 mg/dL (7-18) H 12/20/20 07:12 Creatinine 1.22 mg/dL (0.55-1.3) 12/20/20 07:12 Glucose 144 mg/dL (74-106) H 12/20/20 07:12 Magnesium 2.5 mg/dL (1.8-2.4) H 12/18/20 11:15 Total Bilirubin 0.5 mg/dL (0.2-1.0) 12/18/20 11:15 AST 22 U/L (15-37) 12/18/20 11:15 ALT 55 U/L (12-78) 12/18/20 11:15 Alkaline Phosphatase 78 U/L (45-117) 12/18/20 11:15 Troponin I 0.02 ng/mL (0.0-0.045) 12/19/20 03:03 Triglycerides 155 mg/dL (<150) H 12/19/20 03:03 Cholesterol 123 mg/dL (<200) 12/19/20 03:03 HDL Cholesterol 46 mg/dL (40-60) 12/19/20 03:03 Cholesterol/HDL Ratio 2.67 12/19/20 03:03 Lipase 186 U/L (73-393) 12/18/20 11:15 Home Medications: RX: Atorvastatin Calcium [Lipitor] 40 mg PO DAILY 12/18/20 RX: Clonidine HCl [Catapres*] 0.2 mg PO Q6HP PRN 12/18/20 RX: Gabapentin 600 mg PO BEDTIME 12/18/20 Amitriptyline [Elavil] 25 mg PO BEDTIME 12/19/20 Hydrocodone Bit/Acetaminophen [[place] 10-325 Tablet] 1 each PO Q6HP PRN #30 tablet 12/19/20 RX: ALPRAZolam [Xanax*] 0.25 mg PO TID PRN #30 tab 12/19/20 New Medications: Hydrocodone Bit/Acetaminophen [[place] 10-325 Tablet] 1 each PO Q6HP PRN #30 tablet PRN Reason: Pain Scale 8-10 (Severe) RX: ALPRAZolam [Xanax*] 0.25 mg PO TID PRN #30 tab PRN Reason: Anxiety Physician Discharge Instructions: -OK TO DC IV AND DC HOME -FOLLOW-UP WITH PCP IN 1-2 WEEKS -FOLLOW-UP WITH CARDIOLOGY IN 1-2 WEEKS -PLEASE MAKE SURE ALL DIAGNOSTIC STUDIES ARE AVAILABLE AND HAVE BEEN REVIEWED WITH PATIENT PRIOR TO DISCHARGE -RETURN TO THE ER IF symptoms worsen -CALL DR. FLORES AT [phone] IF ANY QUESTIONS REGARDING HOSPITAL STAY -PLEASE CALL THE FLOOR AT [phone] IF ANY MEDICATION OR NURSING QUESTIONS Diet: AHA Activity: Fall precautions Followup: Ghulam Berrios MD [ACTIVE - CAN ADMIT] - NONE,NONE [Primary Care Provider] -
== END 2020-12-20 14:37 | disposition home or self-care (01) ==
LOC: ER 09:53 → ERHOLD 12:08 → 2ND 13:41
PROVIDERS: ADMIT Hospitalist; ATTEND Hospitalist
DX: K52.9 Noninfective gastroenteritis and colitis, unspecified (principal); I25.709 Atherosclerosis of coronary artery bypass graft(s), unspecified, with unspecified angina pectoris; I16.0 Hypertensive urgency; I13.0 Hypertensive heart and chronic kidney disease with heart failure and stage 1 through stage 4 chronic kidney disease, or unspecified chronic kidney disease; N18.9 Chronic kidney disease, unspecified; I50.9 Heart failure, unspecified; J44.9 Chronic obstructive pulmonary disease, unspecified; I48.91 Unspecified atrial fibrillation; F31.9 Bipolar disorder, unspecified; M54.5 Low back pain; G89.29 Other chronic pain; E78.5 Hyperlipidemia, unspecified; K74.60 Unspecified cirrhosis of liver; E78.00 Pure hypercholesterolemia, unspecified; F17.210 Nicotine dependence, cigarettes, uncomplicated; Z88.6 Allergy status to analgesic agent; Z88.0 Allergy status to penicillin; Z95.1 Presence of aortocoronary bypass graft; Z20.822 Contact with and (suspected) exposure to COVID-19
CPT/HCPCS: 96365; 96361; 93005; 93017; 93306; 87045; 85025 ×2; 80048 ×3; 36415 ×3; 83735; 89055; 85610; 80061; 80076; 87046; 87324; 84484 ×3; 83690; 83880; 87449; 74177; 71045; 78452; 96375; 99285; U0003; Q9967; J0360; J3010 ×10; J1100; J1650 ×4; J2270; J2785; J7030; J2405 ×3; J0744; A9500; G0378

== ENCOUNTER 2021-02-16 10:13 | Inpatient (IN) | payer OTHER ==
--- OUTSIDE RECORDS SUMMARY | 2021-02-16 10:18 | XMS REPORT | Continuity of Care Document ---
:1960 Author Organization [facility] t Address [address] [place] [address] Care Team Providers Name Role Phone Asked, Pcp Primary Care Physician Unavailable Ramiro ORTIZ Attending Clinician Unavailable Miriam Carter Attending Clinician Giles Knott PA-C Attending Clinician Jessica ORTIZ [...] Expiration Date Sour ce Number UHC MEDICAREUHC [id number] 2020 [place] DUAL COMPLETE 00:00:00 [facility] [id number]/10/26 021-Present[facility]MO [facility] [id number] [facility] - - MEDICARE MGD 00:00:00 Medical Ce nter CAREUNITED MEDICARE [id number]/10/26 016-Present Problems Condition Condition Condition Status Onset Resolution Last Treating Co mments Source Name Details Category Date Date Treatment Clinician Date Hypertensi Hypertensi Disease Active [facility] ve [facility]20 [facility] - emergency emergency 00:00: [facility] 00 [place] Acute Acute Disease Active [facility] kidney kidney 7-20 [facility] - injury injury 00:00: Medical 00 [place] Diarrhea Diarrhea Disease Active [facility] - 00:[facility]: Medical 00 [place] Transamini Transamini Disease Active [facility] tis tis 7-20 [facility] - 00:00: Medical 00 [place] Hepatitis Hepatitis Disease Active [facility] C virus C virus 7-20 [facility] - infection infection 00:00: [facility] without without 00 Center hepatic hepatic coma coma Chest pain Chest pain Disease Active [facility] 7[facility]16 [facility] - 00:00: Medical 00 [place] Syncope Syncope Disease Active [facility] 7[facility]16 [facility] - 00:00: Medical 00 [place] Paroxysmal Paroxysmal Disease Active [facility] [...] [facility] ins 1-08 Clear 00:00: Pink 00 [facility] codeine DA Active SV [facility] 1-08 Clear 00:00: Pink 00 [facility] Cephalos Propensi Active Nausea And [...] Adverse Active rash [facility] in Reaction [facility] ent Clinics Cephalos Adverse Active vomiting [facility] porins Reaction [facility] Social History Social Habit Start Date Stop Date Quantity Comments Source Sex Assigned At [facility] Tobacco use and 2019-06-14 2019-06-14 Never used [facility] - exposure 00:00:00 00:00:00 [facility] Center History of 2018-05-25 Cigarette Smoker [facility] tobacco [facility] Status Start Date Stop Date Source Former smoker 2019-06-14 00:00:00 2019-06-14 00:00:00 [facility] Medications Ordered Filled Start Stop Current Ordering Indication Dosage Frequency Signature Comments Components Source Medication Medication Date Date Medication? Clinician (SIG) Name Name Buddy Goodwin Yes Na Heard as needed [facility] 3[facility]19 for nausea [facility] - 00:00: [facility] 00 [facility] amitriptyli Yes 50mg QD Take [address] ne (ELAVIL) 8-22 by mouth Luke s - 50 MG 14:22: nightly. Medical tablet 42 [place] DULoxetine Yes 60mg QD Take [address] (CYMBALTA) 8-22 by mouth [facility] - 60 MG 14:22: daily. Medical capsule 42 [place] vitamin E Yes 200U QD Take [address] 200 UNIT 8-22 Units by [facility] - capsule 14:22: mouth Medical 42 daily. [place] lithium 300 Yes 300mg QD Take [address] MG capsule 8-22 mg by [facility] - 14:22: mouth Medical 42 nightly . [place] lisinopril Yes 40mg QD Take 40 mg [...] mcg/actuati (two) on inhaler times daily. HYDROcodone 2019-0 Yes 1{tbl} Take [address] [...] MG 24 hr 42 Center tablet ranolazine 2018-0 Yes 1000mg QD Take 1,[address] [...] :00 by mouth Center daily. Albuterol Albuterol 2019- Yes Na Heard inhale [address] [facility] Sulfate Sulfate 5-14 vial by [facility] - 00:00: mouth via [facility]oria 00 nebulizer l 3 times a [facility] Ipratropium Ipratropium 2018- Yes Na Heard as [facility] [place] 5-14 directed [facility] - 00:00: [facility] ent [facility] Amlodipine Amlodipine 2017-10 Yes Na Heard [address] Besylate Besylate 0-29 [facility] - 00:00: [facility] 00 [facility] ent [facility] aspirin 81 2017- Yes 81mg QD Take [...] 00:00: week then Memoria 00 1 tablet [facility] ent [facility] carvedilol Yes 25mg Take 1 [facility] (COREG) 25 4-05 tablet (25 Kofi es - MG tablet 00:00: mg total) Med ical 00 by mouth 2 Center (two) times daily with breakfast and dinner. Amitriptyli Amitriptyli Yes Na Heard [address] ne HCl ne HCl [facility] Dulera Dulera Yes Na Heard 2 puffs [facility] Amiodarone Amiodarone Yes Na Heard [address] HCl HCl [facility] Aspir-81 Aspir-81 Yes Na Heard [address] [facility] Isosorbide Isosorbide Yes Na Heard [address] Mononitrate Mononitrate in the [facility] - ER ER morning [facility] [place] Yes Na Heard [address] Carbonate Carbonate at bedtime [facility] Atorvastati Atorvastati Yes Na Heard [address] n Calcium n Calcium [facility] Losartan Losartan Yes Na Heard [address] Potassium Potassium [facility] Gabapentin Gabapentin Yes Na Heard [address] [facility] Carvedilol Carvedilol Yes Na Heard as [facility] directed [facility] HydrALAZINE HydrALAZINE Yes Na Heard [address] [facility] HCl HCl with food [facility] Citalopram Citalopram Yes Na Heard [address] Hydrobromid Hydrobromid L ukes - e e [facility]oria l [facility] Lorazepam Lorazepam Yes Na Heard [address] as needed [facility] Benkelman Benkelman Yes Na Heard [address] as needed [facility] Hydrochloro Hydrochloro Yes Na Heard [address] thiazide thiazide in the [facility] - morning [facility] Ranolazine Ranolazine Yes Na Heard [address] ER ER [facility] Lisinopril Lisinopril Yes Na Heard [address] Lactulose Lactulose Yes Na Heard [address] [facility] [place] Yes Na Heard TAKE [address] Carbonate Carbonate CAPSULE BY [facility] - MOUTH Memoria DAILY AT l BEDTIME [facility] Procedures Procedure Date / Time Performed Performing Clinician Sourc e CT CHEST EXTERNAL 2020-09-14 14:51:[address] HEAD EXTERNAL STUDY 2020-09-14 14:46:[address] [facility] [address] SPINE EXTERNAL 2020-09-14 14:46:00 Aashish Knott STUDY XR SPINE EXTERNAL 2020-08-12 14:53:00 Aashish Knott STUDY XR SPINE EXTERNAL 2020-07-12 09:07:00 Aashish Knott STUDY SARS-COV2/RT-PCR ([facility] 2020-05-19 20:30:00 [facility] Plan of Care Planned Activity Planned Date Details Comments Source Future Scheduled 2022-06-[address] [facility] - Test 00:00:00 (procedure) [code = [facility] 98509993] Future Scheduled 2021-05-25 INFLUENZA VACCINE [place] [facility] Test 00:00:00 [code = INFLUENZA VACCINE] Future Scheduled 2020-10-[address] [facility] - Test 00:00:00 (12+) [code = [facility] Center DEPRESSION SCREENING (12+)] Future Scheduled 2020-06-25 INFLUENZA VACCINE (#1) C [...] Future Scheduled 2008 COLONOSCOPY SCREENING [place] [facility] Test 00:00:00 [code = COLONOSCOPY SCREENING] Future Scheduled 2008 SHINGLES VACCINES (#1) [place] [facility] Test 00:00:00 [code = SHINGLES VACCINES (#1)] Future Scheduled 2008 SHINGLES VACCINES ([address] [facility] - Test 00:00:00 of 2) [code = SHINGLES Medic al Center VACCINES (1 of 2)] Future Scheduled 1977 DTAP/TDAP/TD VACCINES [facility] Test 00:00:00 (1 - Tdap) [code = Medical C enter DTAP/TDAP/TD VACCINES (1 - Tdap)] Future Scheduled 1974 COVID-19 VACCINE (1) [place] [facility] Test 00:00:00 [code = COVID-19 VACCINE (1)] Future Scheduled [address] [facility] - Test 00:00:00 0-64 YRS (1 of 1 - Medical C enter PPSV23) [code = PNEUMOCOCCAL VACCINE 0-64 YRS (1 of 1 - PPSV23)] Future Scheduled [address] [facility] Kofi es - Test 00:00:00 malignant neoplasm of Medica l Center colon (procedure) [code = 797319127] Encounters Start End Encounter Admission Attending Care Care Encounter Source Date/Time Date/Time Type Type Clinicians Facility Department ID 2021-02-10 2021-02-10 Outpatient [facility] [id number] [facility] 2021-02-10 2021-02-10 [id number] [facility] 2021-02-05 2021-02-05 [facility] [id number] [facility] 2021-02-04 2021-02-04 [facility] [id number] [facility] 2021-01-31 2021-01-31 [facility] [id number] [facility] 2021-01-01 2021-01-01 [facility] [id number] [facility] 2020-12-25 2020-12-25 Outpatient [facility] [id number] STEVE Valenzuela 00:00:00 00:00:00 [facility] 2020-12-03 2020-12-03 Outpatient CHRISTOPHER, [facility] [id number] [place] 00:00:00 00:00:00 RYLEY [address] 2020-11-19 2020-11-19 Outpatient [facility] [id number] [place] 00:00:00 00:00:[address] 2020-11-19 2020-11-19 Outpatient [facility] [id number] [place] 00:00:00 00:00:[address] 2020-11-19 2020-11-19 Outpatient [facility] [id number] [place] 00:00:00 00:00:[address] 2020-11-19 2020-11-19 Outpatient [facility] [id number] [place] 00:00:00 00:00:[address] 2020-11-19 2020-11-19 Outpatient [facility] [id number] [place] 00:00:00 00:00:[address] 2020-11-19 2020-11-19 Outpatient [facility] [id number] [place] 00:00:00 00:00:[address] 2020-11-19 2020-11-19 Outpatient [facility] [id number] [place] 00:00:00 00:00:[address] 2020-11-19 2020-11-19 Outpatient [facility] [id number] [place] 00:00:00 00:00:[address] 2020-11-19 2020-11-19 Outpatient [facility] [id number] [place] 00:00:00 00:00:[address] 2020-11-07 2020-11-07 Outpatient [facility] [id number] STEVE Valenzuela 00:00:00 00:00:00 [facility] 2020-08-12 2020-08-12 Outpatient [facility] [id number] [facility]00 kes - [facility] Outpati ent Clinics 2020-08-08 2020-08-08 Outpatient [facility] [id number] [facility] 00:00:00 kes - [facility] Outpat[facility] Clinics 2020-07-22 2020-07-22 Transition Jackie Lopez [id number] 00:00:00 00:00:00 of Care Mirella Castro [id number] [place] [id number] 2020-07-18 2020-07-20 Hospital Pedro Darren Corrales [id number] 22:50:00 13:00:00 Encounter RamónMoshe [id number] [id number] 2020-07-18 2020-07-18 Emergency Mejia Hdz [facility] [id number] 17:31:00 21:56:00 Osmin Clemons [id number] [place] [id number] [place] [id number] 2020-06-25 2020-06-25 [facility] [id number] 11:20:00 11:20:00 t [employer] s - [employer] [facility] Medicine Outpati ent Clinics 2020-05-03 2020-05-03 [facility] [id number] 14:25:00 14:25:00 t [employer] s - Drive [facility] Medicine Outpati ent Clinics 2020-02-12 2020-02-12 [facility] [id number] 11:15:00 11:15:00 t [place] Paxera s - Drive [facility] Medicine Outpati ent Clinics 2020-01-26 2020-01-26 [facility] [id number] 11:20:00 11:20:00 t [place] - Drive [facility] Medicine Outpati ent Clinics 2020-01-11 2020-01-11 [facility] [id number] 15:32:00 15:32:00 t [place] - Drive [facility] l Medicine Outpati ent Clinics 2020-01-03 2020-01-03 [facility] [id number] 09:20:00 09:20:00 t [place] s - Drive [facility] Medicine l Medicine Outpati ent Clinics 2020-01-02 2020-01-02 Outpatient MHBL MHBL [id number] MHBL 09:54:00 09:54:00 2019-11-13 2019-11-13 [facility] [id number] 14:13:00 14:13:00 t Specialty/U Abigail kes - [facility] Outpati ent Clinics 2019-11-01 2019-11-01 [facility] [id number] 09:20:00 09:20:00 t [place] s - Drive [facility] l Medicine Outpati ent Clinics 2019-10-27 2019-10-27 Outpatient MHSE MHSE [id number] MH 08:50:00 08:50:[address] [facility] 2019-09-05 2019-09-05 [facility] [id number] 09:29:00 09:29:00 t [place] - [employer] [facility] Medicine l Medicine Outpati ent Clinics 2019-05-31 2019-05-31 [facility] [id number] 12:00:00 12:00:00 t [place] - Drive [facility] Medicine l Medicine Outpati ent Clinics 2019-05-30 2019-05-30 [facility] [id number] 15:00:00 15:00:00 t [place] - Drive [facility] Medicine l Medicine Outpati ent Clinics 2019-04-26 2019-04-26 [facility] [id number] 15:09:00 15:09:00 [place] [address] [address] [facility] Medicine l Medicine Outpati ent Clinics 2019-03-30 2019-03-30 [facility] [id number] 15:40:00 15:40:00 t [place] - Drive [facility] Medicine l Medicine Outpati ent Clinics 2019-02-23 2019-02-23 Outpatient E MHSE MED [id number] 15:40:00 15:40:00 [facility] 2019-01-10 2019-01-10 [facility] [id number] 08:41:00 08:41:00 t [place] [employer] s - Drive [facility] Medicine l Medicine Outpati ent Clinics 2018-12-12 2018-12-12 [facility] [id number] 08:15:00 08:15:00 t [place] [employer] s - Drive [facility] Medicine l Medicine Outpati ent Clinics 2018-07-27 2018-07-27 [facility] [id number] 15:15:00 15:15:00 t [place] Oversee s - Drive [facility] Medicine l Medicine Outpati ent Clinics 2018-06-09 2018-06-09 [facility] [id number] 08:00:00 08:00:00 t [place] [employer] s - Drive [facility] Medicine l Medicine Outpati ent Clinics 2018-05-31 2018-05-31 [facility] [id number] 09:00:00 09:00:00 t [place] - Drive [facility] Medicine l Medicine Outpati ent Clinics 2018-04-20 2018-04-20 [facility] [id number] 09:45:00 09:45:00 t [place] [employer] s - Drive [facility] Medicine l Medicine Outpati ent Clinics 2018-04-15 2018-04-15 [facility] [id number] 15:26:00 15:26:00 t [place] [employer] s - Drive [facility] Medicine l Medicine Outpati ent Clinics 2018-03-15 2018-03-15 [facility] [id number] 15:15:00 15:15:00 t [place] [employer] s - Drive [facility] Medicine l Medicine Outpati ent Clinics 2018-02-28 2018-02-28 [facility] [id number] 09:15:00 09:15:[address] [facility] Outpati ent Clinics Results Test Description Test Time Test Comments Results Result [facility] e Comments XR Spine External 2020-11-19 This exam was not Vega Study 14:10:51 acquired at a [facility] facility and has not been interpreted by a [facility] Provider. The exam was imported into our imaging system. CT Chest External 2020-11-19 This exam was not Vega Study 14:00:27 acquired at a [facility] facility and has not been interpreted by a [facility] Provider. The exam was imported into our imaging system. CT Spine External 2020-11-19 This exam was not Vega Study 13:56:35 acquired at a [facility] facility and has not been interpreted by a [facility] Provider. The exam was imported into our imaging system. CT Head External 2020-11-19 This exam was not [facility] Study 13:54:19 acquired at a [facility] facility and has not been interpreted by a [facility] Provider. The exam was imported into our imaging system. SARS-CoV2/RT-PCR ([facility]) 2020-05-20 09:54:00 Test Item Value Reference Range Interpretation Comme nts SARS-COV2/RT-PCR (test code = Negative Not Detected, 30688-9) Negative, See external report for linked test SARS-COV-[address] [facility] GRAEME (test code = 67540-8) JENNIFER (test code = JENNIFER) Negative result [...] of the Act. Fact Sheet for Healthcare Providers:https://www.Getlenses.co.uk/sites/default/files/produ ct/documents/Fact_Sheet_HC_Pr emkvlxr_Kdio_XPER-LfB-1.pdf Fact Sheet for Healthcare Patients:https://www.MX Logic/sites/default/files/produc t/documents/Fact_Sheet_Patien kw_Axrk_CMHK-QcO-2.pdf Performing Laboratory:[facility] [facility], [place] [address] [place], [place] [address]ARS-COV2/RT-PCR ([facility])2020-05-20 09:54:00 Test Item Value Reference Range Interpretation Comments SARS-COV2/RT-PCR (test Negative Not Detected, Negative, code = 4371482) See external report for linked test SARS-COV-[address] [facility] GRAEME (test code = 3677802) Negative result for this test determines that [...] 564(g) of the Act.Fact Sheet for Healthcare Providers:https://www.Nanjing Zhangmen/sites/default/files/product/documents/Fact_Shee k_GU_Tazscdnks_Gjxc_RCFA-XvS-2.pdfFact Sheet for Healthcare Patients:https://www.Nanjing Zhangmen/sites/default/files/product/ documents/Sihp_Hhuuq_Kgwaioxd_Wstj_WMZQ-IrD-1.pdfPerforming Laboratory:[facility].[place], [place] [address]TEEEL METABOLIC PANEL 2019-11-04 06:36:00 Test Item Value [...] CA) 8.9 MG/DL 8.5-10.1 N CBC W/AUTO [id number] 06:32:00 Test Item Value Reference Range Interpretation [...] = NO DIFF/SCN CRITERIA MDIFF) COMPREHENSIVE METABOLIC [id number] 06:08:00 Test Item Value Reference Range Interpretation [...] TOTAL (test code = ALKP) CBC W/AUTO [id number] 05:52:00 Test Item Value Reference Range Interpretation [...] concentrations <2 ng/mL are obtai brandon. LACTIC [id number] 16:03:00 Test Item Value Reference Range Interpretation Comments LACTIC ACID (test code = LACT) 1.0 mmol/L 0.4-2.0 N - XR CHEST 1 [id number] 15:59:00 Name: ALHAJI FARAH [facility]ly [facility] : 1960 Age/S: 58 / M [id number] Unit #: [id number] Loc: [place] [address] Phys: Jac Leal MD Acct: [id number] Dis Date: Status: ADM IN PHONE #: [phone] Exam Date: 11/02/2019 1556 FAX #: Reason: Fever EXAMS: CPT: [id number] XR CHEST 1 V 64620 Fluoro Time: DAP (Gy m2): Air Kerma [...] PAGE 1 Signed Report Name: ALHAJI FARAH : 1960 Age/S: 58 / M [id number] Unit #: [id number] Loc: [place] [address] Phys: Jac Leal MD Acct: [id number] Dis Date: Status: ADM IN PHONE #: [phone] Exam Date: 11/02/2019 1556 FAX #: Reason: Fever EXAMS: CPT: [id number] XR CHEST 1 V 68161 Fluoro Time: DAP (Gy m2): Air Kerma (mGy): <Continued> Technologist: [place]ine Cross RT(R)(CT) Trnscb Date/Time: 11/02/2019 (1553) [email or web address] Orig Print D/T: S: 11/02/2019 (6105) PAGE 2 Signed [id number] 04:22:00 Test Item Value Reference Range Interpretation [...] may roma yby method. Completed by Nursing: [facility] METABOLIC [id number] 04:19:00 Test Item Value Reference Range Interpretation [...] CA) 8.1 MG/DL 8.5-10.1 L CBC W/AUTO [id number] 04:08:00 Test Item Value Reference Range Interpretation [...] = NO DIFF/SCN CRITERIA MDIFF) - CTA [id number] 22:57:00 Name: ALHAJI FARAH [facility] : 1960 Age/S: 58 / M [id number] Unit #: [id number] Loc: [place] [address] Phys: Jac Leal MD Acct: [id number] Dis Date: Status: ADM IN PHONE #: [phone] Exam Date: 11/01/2019 2372 FAX #: Reason: Chest PAIN EXAMS: CPT: [id number] CTA CHEST 58020 Examination: CTA chest, PE protocol Indication: Chest [...] FARAH : 1960 Age/S: 58 / M [id number] Unit #: [id number] Loc: [place] [address] Phys: Jac Leal MD Acct: [id number] Dis Date: Status: ADM IN PHONE #: [phone] Exam Date: 11/01/2019 1694 FAX #: Reason: Chest PAIN EXAMS: CPT: [id number] CTA CHEST 45394 <Continued> No suspicious or destructive osseous lesions. [...] RT(R)(CT); .. CTDI: DLP: Trnscb Date/Time: 11/01/2019 (7067) [email or web address] Orig Print D/T: S: 11/01/2019 (3710) PAGE 2 Signed ReportGLYCOSYLATED HEMOGLOBIN [id number] 17:41:00 Test Item Value Reference Range Interpretation Comments GLYCOSYLATED HEMOGLOBIN (HA1C) 6.3 % A1C 4.2-6.3 N (test code = GLYHGB) ESTIMATED AVERAGE GLUCOSE (test 134 MG/DLest code = EAG) COMPREHENSIVE METABOLIC [id number] 17:40:00 Test Item Value Reference Range Interpretation [...] = LDL/HDL) 2.94 Ratio 1.48-3.22 Avg N [id number] 17:40:00 Test Item Value Reference Range Interpretation Comments PHOSPHOROUS (test code = PHOS) 3.5 MG/DL 2.5-4.9 N RULE OUT AL [id number] 17:40:00 Test Item Value Reference Range Interpretation [...] nume rical results may roma yby method. [id number] 17:40:00 Test Item Value Reference Range Interpretation Comments MAGNESIUM (test code = MAG) 2.5 MG/DL 1.8-2.4 H TROPONIN I [id number] 15:24:00 Test Item Value Reference Range Interpretation Comments TROPONIN I RAPID 0.04 ng/mL 0.00-0.08 N - The use o f serial (test code = sampling and te sting TROPIRAP) protocol is a recommended pra ctice- An elevated tro ponin level alone is often not sufficient for diagnosis of my ocardial infarction. BASIC METABOLIC [id number] 13:39:00 Test Item Value Reference Range Interpretation [...] 133 Unit/L 26-192 N CK) TROPONIN I [id number] 11:56:00 Test Item Value Reference Range Interpretation Comments TROPONIN I RAPID 0.04 ng/mL 0.00-0.08 N - The use o f serial (test code = sampling and te sting TROPIRAP) protocol is a recommended pra ctice- An elevated tro ponin level alone is often not sufficient for diagnosis of my ocardial infarction. - XR CHEST 1 [id number] 11:53:00 Name: ALHAJI FARAH [place] : 1960 Age/S: 58 / M [address] Unit #: [id number] Loc: [place] [address] Phys: Darell Medrano MD Acct: [id number] Dis Date: Status: PRE ER PHONE #: [phone] Exam Date: 11/01/2019 1146 FAX #: Reason: chest pain EXAMS: CPT: [id number] XR CHEST 1 V 11090 Fluoro Time: DAP (Gy m2): Air Kerma [...] PAGE 1 Signed Report Name: ALHAJI FARAH [place] :1960 Age/S: 58 / M [address] Unit #: [id number] Loc: [place] [address] Phys: Darell Medrano MD Acct: [id number] Dis Date: Status: PRE ER PHONE #: [phone] Exam Date: 11/01/2019 1149 FAX #: Reason: chest pain EXAMS: CPT: [id number] XR CHEST 1 V 39026 Fluoro Time: DAP (Gy m2): Air Kerma (mGy): <Continued> Technologist:RT Taina(R)(MR) Trnscb Date/Time: 11/01/2019 (1153) [email or web address] Orig Print D/T: S: 11/01/2019 (1877) PAGE 2 Signed ReportCBC W/O [id number] 11:50:00 Test Item Value Reference Range Interpretation [...] 11.80 fL 7.0-9.6 H MPV) CHEMISTRY 8 [id number] 11:47:00 Test Item Value Reference Range Interpretation [...] 49-113 N code = GFRBED) CHEMISTRY 8 [id number] 11:47:00 Test Item Value Reference Range Interpretation [...] 49-113 N (test code = GFRBED) TISSUE [id number] 10:31:00Surgical Pathology Report Case: [id number] Authorizing Provider: Caleb Dawn Collected: 06/14/2019 152Elsie Morales MD Ordering Location: [address] Received: 06/15/2019 0759 Service Pathologist: Misty Jackson MD Specimen: Ampulla, Ampulla Bx A. "AMPULLA", BIOPSY: - SQUAMOUS AND FOVEOLAR TYPE MUCOSA WITH MILD CHRONIC INFLAMMATION - NEGATIVE FOR MALIGNANCY (SEE COMMENT) Signing Pathologist Direct Phone Line: [phone] signed by Misty Jackson MD on 06/19/2019 at 10:31 AMThe biopsy shows fragments of squamous and foveolar type mucosa with mild chronic inflammation and cautery. Focal muscle is also seen. No definite small bowel/ biliary lining is seen. The ampulla normally does not have squamous lining. This could be a metaplastic change. Clinical and endoscopic correlation is required.[id number] and postop diagnosis: endoscopic ultrasound with endo, [...] MDReport Verified Date/Time: 06/16/2019 12:50:49 Reading Location: [facility] Radiology Reading Room BLOOD CULTURE 2019-06-16 12:01:00 Test Item Value Reference Range Interpretation Comments CULTURE (BEAKER) (test No growth in 5 days code = 1095) BLOOD [id number] 12:01:00 Test Item Value Reference Range Interpretation Comments CULTURE (BEAKER) (test No growth in 5 days code = 1095) COMPREHENSIVE METABOLIC [id number] 07:08:00 Test Item Value Reference Range Interpretation [...] NOT APPLICABLE FOR DIALYSIS PATIEN TS. BLOOD [id number] 02:00:00 Test Item Value Reference Range Interpretation Comments CULTURE (BEAKER) (test No growth in 5 days code = 1095) BLOOD [id number] 02:00:00 Test Item Value Reference Range Interpretation Comments CULTURE (BEAKER) (test No growth in 5 days code = 1095) BLOOD [id number] 02:00:00 Test Item Value Reference Range Interpretation Comments CULTURE (BEAKER) (test No growth in 5 days code = 1095) COMPREHENSIVE METABOLIC [id number] 04:49:00 Test Item Value Reference Range Interpretation [...] 0-0 CELLS (BEAKER) (test code = 413) [id number] 16:17:00 Test Item Value Reference Range Interpretation Comments ACTIVATED CLOTTING TIME 125 sec TEST ED AT [facility] 6720 (BEAKER) (test code = [place] 441) [address] PET, CARDIAC PERFUSION MULTIPLE STUDIES, REST AND [id number] 16:40:00 Reason for exam:->chest pain, evaluate for worsening CAD, s/p CABGFINAL REPORT PROCEDURE: MYOCARDIAL PERFUSION PET IMAGING (Rest/Stress)CPT CODE: 94379 INDICATION: Evaluate acute chest pain/discomfort CARDIOVASCULAR PROFILE:CAD [...] MDReport Verified Date/Time: 06/12/2019 16:40:23 Reading Location: [address] Reading Room TROPONIN [id number] 02:08:00 Test Item Value Reference Range Interpretation [...] acute neurological disease, and persistent tachyarrhythmia.HEPATIC FUNCTION [id number] 02:02:00 Test Item Value Reference Range Interpretation [...] = 26 U/L 6-55 347) BASIC METABOLIC [id number] 02:02:00 Test Item Value Reference Range Interpretation [...] APPLICABLE FOR DIALYSIS PATIEN TS. VANCOMYCIN LEVEL, [id number] 01:59:00 Test Item Value Reference Range Interpretation [...] WBC 0-0 (BEAKER) (test code = 413) [id number] 07:20:00 Test Item Value Reference Range Interpretation Comments PROCALCITONIN (BEAKER) (test code 0.30 ng/mL <0.05 H = 3036) SEPSIS RISK (ng/mL)Low: 0.05-0.50Intermediate: 0.51-2.00High: >=2.01BASIC METABOLIC [id number] 07:16:00 Test Item Value Reference Range Interpretation [...] APPLICABLE FOR DIALYSIS PATIEN TS. HEPATIC FUNCTION [id number] 07:16:00 Test Item Value Reference Range Interpretation [...] WBC 0-0 (BEAKER) (test code = 413) [id number] 05:55:00 Test Item Value Reference Range Interpretation Comments MAGNESIUM (BEAKER) (test code = 2.1 mg/dL 1.6-2.6 627) LIPID [id number] 05:55:00 Test Item Value Reference Range Interpretation [...] 130-159 High 160-189 Very High >=190HEPATIC FUNCTION [id number] 05:55:00 Test Item Value Reference Range Interpretation [...] = 34 U/L 6-55 347) BASIC METABOLIC [id number] 05:55:00 Test Item Value Reference Range Interpretation [...] PATIEN TS. CBC W/PLT COUNT & AUTO [id number] 05:03:00 Test Item Value Reference Range Interpretation [...] PERCENT (BEAKER) (test code = 2801) TROPONIN [id number] 05:02:00 Test Item Value Reference Range Interpretation [...] acute neurological disease, and persistent tachyarrhythmia.LACTIC ACID, [id number] 04:48:00 Test Item Value Reference Range Interpretation Comments LACTATE BLOOD VENOUS (2) (BEAKER) 1.1 mmol/L 0.5-2.2 (test code = 2872) URINALYSIS W/ REFLEX URINE [id number] 03:25:00 Test Item Value Reference Range Interpretation [...] SOURCE(BEAKER) (test code = 2795) OXYGEN SATURATION, [id number] 03:04:00 Test Item Value Reference Range Interpretation [...] 0.7 mmol/L 0.5-2.2 (test code = 2872) [id number] 23:52:00 Test Item Value Reference Range Interpretation Comments PROCALCITONIN (BEAKER) (test code 0.30 ng/mL <0.05 H = 3036) SEPSIS RISK (ng/mL)Low: 0.05-0.50Intermediate: 0.51-2.00High: >=2.01TROPONIN [id number] 23:40:00 Test Item Value Reference Range Interpretation [...] failure, acidosis, acute neurological disease, and persistent tachyarrhythmia.[id number] 23:34:00 Test Item Value Reference Range Interpretation Comments PHOSPHORUS (BEAKER) (test code = 3.4 mg/dL 2.3-4.7 604) [id number] 23:34:00 Test Item Value Reference Range Interpretation Comments MAGNESIUM (BEAKER) (test code = 2.2 mg/dL 1.6-2.6 627) BASIC METABOLIC [id number] 23:34:00 Test Item Value Reference Range Interpretation [...] APPLICABLE FOR DIALYSIS PATIEN TS. HEPATIC FUNCTION [id number] 23:34:00 Test Item Value Reference Range Interpretation [...] = 42 U/L 6-55 347) COMPREHENSIVE METABOLIC [id number] 23:34:00 Test Item Value Reference Range Interpretation [...] S NOT APPLICABLE FOR DIALYSIS PATIEN TS. [id number] 23:34:00 Test Item Value Reference Range Interpretation Comments LIPASE (BEAKER) (test code = 749) 38 U/L 8-78 [id number] 23:33:00 Test Item Value Reference Range Interpretation Comments PARTIAL THROMBOPLASTIN TIME 27.3 seconds 22.5-36.0 (BEAKER) (test code = 760) [id number] 23:33:00 Test Item Value Reference Range Interpretation Comments FIBRINOGEN LEVEL (BEAKER) (test 300 mg/dl 225-434 code = 658) PROTHROMBIN TIME/[id number] 23:32:00 Test Item Value Reference Range Interpretation [...] mechanical heart valves.CBC W/PLT COUNT & AUTO [id number] 23:22:00 Test Item Value Reference Range Interpretation [...] (BEAKER) (test code = 2801) BLOOD GAS, [id number] 22:27:00 Test Item Value Reference Range Interpretation [...] code = 1819) 21.0 % POCT-LACTIC ACID, [id number] 21:53:00 Test Item Value Reference Range Interpretation Comments POC-LACTIC ACID, 1.6 mmol/L 0.9-1.7 TESTED AT [facility] [address] VEN[address] (BEAKER) (test [place] code = 2805) [address] TROPONIN [id number] 18:59:00 Test Item Value Reference Range Interpretation [...] acute neurological disease, and persistent tachyarrhythmia.HEPATITIS C [id number] 16:55:00 Test Item Value Reference Range Interpretation Comments HEPATITIS C ANTIBODY (BEAKER) (test Reactive Nonreactive A code = 367) POCT-GLUCOSE [id number] 12:03:00 Test Item Value Reference Range Interpretation Comments POC-GLUCOSE METER 169 mg/dL 70-110 H TESTED AT [place] [address] [facility] (test code = WHITNEY Paez [facility] 1538) [address] HEPATITIS B CORE ANTIBODY, [id number] 08:37:00 Test Item Value Reference Range Interpretation Comments HEPATITIS B CORE TOTAL ANTIBODY Reactive Nonreactive A (BEAKER) (test code = 497) POCT-GLUCOSE [id number] 08:14:00 Test Item Value Reference Range Interpretation Comments POC-GLUCOSE METER 105 mg/dL 70-110 TESTED AT [place] [address] (BEAKER) (test code = WH[place] Pae[place] [facility] 1538) [address] HEPATIC FUNCTION [id number] 07:10:00 Test Item Value Reference Range Interpretation [...] 67 U/L 6-55 H 347) BASIC METABOLIC [id number] 07:10:00 Test Item Value Reference Range Interpretation [...] FOR DIALYSIS PATIEN TS. HEPATITIS B SURFACE [id number] 06:58:00 Test Item Value Reference Range Interpretation Comments HEPATITIS B SURFACE ANTIBODY < mIU/mL <8.0 (BEAKER) (test code = 647) HEPATITIS B SURFACE [id number] 05:42:00 Test Item Value Reference Range Interpretation Comments HEPATITIS B SURFACE ANTIGEN (2) Nonreactive Nonreactive (BEAKER) (test code = 2585) HEPATITIS B CORE ANTIBODY, [id number] 05:42:00 Test Item Value Reference Range Interpretation Comments HEPATITIS B CORE IGM ANTIBODY Nonreactive Nonreactive (BEAKER) (test code = 645) CBC W/PLT COUNT & AUTO [id number] 04:56:00 Test Item Value Reference Range Interpretation [...] (test code = 2801) U/S, RENAL WITH [id number] 16:28:00Reason for exam:->hypertensionFINAL REPORT INDICATION: 57-year-old inpatient [...] MDReport Verified Date/Time: 05/11/2018 16:28:02 Reading Location: [address] Ultrasound Reading Room U/S, ABDOMINAL, [id number] 16:15:00Abdomen limited area? Add comment if clarification [...] MDReport Verified Date/Time: 05/11/2018 16:15:41 Reading Location: [place] [id number] Ultrasound Reading Room CTA, CHEST, ABDOMEN - PELVIS, FOR [id number] 14:11:00Reason for exam:->Chest painAddendum BeginsREPORT STATUS:A Addendum: I agree with the previously described non vascular findings. Signed: Antionette Hinojosa MDReport Verified Date/Time: 05/11/2018 14:11:09 Reading Location: [place] [id number] Angio Body Reading RoomAddendum EndsFINAL REPORT CT [...] coronary artery calcification is seen in the [place] coronary territories. Patient is post coronary artery [...] thoracic aorta. In the abdominal aorta, circumferential jbug-ji-busiohqj calcific atherosclerosis is seen. Overall, no ectasia [...] An addendum will be dictated by the Lan Support Specialist Radiologist regarding the nonvascular findings. Signed: Magno Augustineport Verified Date/Time: 05/10/2018 18:58:16 Reading Location: [place] [address] Cardiology MRI CALCIUM, [id number] 05:20:00 Test Item Value Reference Range Interpretation Comments CALCIUM IONIZED (BEAKER) (test 1.16 mmol/L 1.12-1.27 code = 698) PH, BLOOD (BEAKER) (test code = 7.40 1810) [id number] 04:29:00 Test Item Value Reference Range Interpretation Comments PHOSPHORUS (BEAKER) (test code = 3.5 mg/dL 2.3-4.7 604) [id number] 04:29:00 Test Item Value Reference Range Interpretation Comments MAGNESIUM (BEAKER) (test code = 2.4 mg/dL 1.6-2.6 627) COMPREHENSIVE METABOLIC [id number] 04:29:00 Test Item Value Reference Range Interpretation [...] PATIEN TS. CBC W/PLT COUNT & AUTO [id number] 03:58:00 Test Item Value Reference Range Interpretation [...] (BEAKER) (test code = 2801) U/S, RENAL, [id number] 13:00:00Reason for exam:->akiShould this be performed at [...] MDReport Verified Date/Time: 05/10/2018 13:00:32 Reading Location: [facility] B1 [id number] Ultrasound Reading Room CALCIUM, [id number] 06:58:00 Test Item Value Reference Range Interpretation Comments CALCIUM IONIZED (BEAKER) (test 1.08 mmol/L 1.12-1.27 L code = 698) PH, BLOOD (BEAKER) (test code = 7.35 1810) B-TYPE NATRIURETIC FACTOR (BNP)2018-05-10 05:49:00 Test Item Value Reference Range Interpretation Comments B-TYPE NATRIURETIC PEPTIDE (BEAKER) 153 pg/mL 0-100 H (test code = 700) [id number] 05:47:00 Test Item Value Reference Range Interpretation Comments MAGNESIUM (BEAKER) 2.4 mg/dL 1.6-2.6 Specimen slightly (test code = 627) hemolyzed [id number] 05:47:00 Test Item Value Reference Range Interpretation Comments PHOSPHORUS (BEAKER) 2.7 mg/dL 2.3-4.7 Specimen slightly (test code = 604) hemolyzed COMPREHENSIVE METABOLIC [id number] 05:47:00 Test Item Value Reference Range Interpretation [...] PATIEN TS. CBC W/PLT COUNT & AUTO [id number] 05:31:00 Test Item Value Reference Range Interpretation [...] (BEAKER) (test code = 2801) EOSINOPHIL SMEAR, [id number] 22:19:00 Test Item Value Reference Range Interpretation Comments EOSINOPHIL SMEAR, URINE (BEAKER) No EOS seen No EOS seen (test code = 1852) URINALYSIS W/ [id number] 22:13:00 Test Item Value Reference Range Interpretation [...] SOURCE(BEAKER) (test code = 2795) SODIUM, RANDOM [id number] 21:38:00 Test Item Value Reference Range Interpretation Comments SODIUM URINE (BEAKER) (test code = < meq/L 243) Reference Range: No NormalsPROTEIN, RANDOM [id number] 21:38:00 Test Item Value Reference Range Interpretation Comments PROTEIN, URINE (BEAKER) (test code = 15 mg/dL 0-14 H 1569) CREATININE, RANDOM [id number] 21:38:00 Test Item Value Reference Range Interpretation Comments CREATININE URINE (BEAKER) (test 173.4 mg/dL code = 375) Reference Range: No NormalsRAD, FOOT, 2 VIEWS, [id number] 13:59:00Reason for exam:->Pain and swelling of left foot after fall.FINAL REPORT Two views left foot Discussion: There is hallux valgus with degen erative changes. No visible acute fracture, dislocation, destructive lesion. Soft tissues are unremarkable. Signed: Darren Ariza Verified Date/Time: 05/09/2018 13:59:01 Reading Location: [address] Consult Reading Room PUL PERF IMAGING, PARTIC, [id number] 12:03:00FINAL REPORT PROCEDURE: V/Q LUNG SCAN CPT CODE: 43346 INDICATION: Acute chest pain, PE suspected, dyspnea, [...] probability of acute pulmonary embolization. Signed: Edmond Pimentelort Verified Date/Time: 05/09/2018 12:03:05 ReadingLocation: [facility] [address] [address] [facility] Reading Room FL, ESOPH, SWALLOW FUNCTION, WITH CINE OR [id number] 11:00:00Reason for exam:->chest painFINAL REPORT Esophagram History: [...] Location: [facility] B1 [id number] [facility] Reading Room HEMOGLOBIN [id number] 10:45:00 Test Item Value Reference Range Interpretation Comments HEMOGLOBIN A1C (BEAKER) (test code = 6.3 % 4.3-6.1 H 368) BASIC METABOLIC [id number] 08:43:00 Test Item Value Reference Range Interpretation [...] FOR DIALYSIS PATIEN TS. Re-draw per labLIPID [id number] 08:42:00 Test Item Value Reference Range Interpretation [...] Borderline 130-159 High 160-189 Very High >=190LITHIUM [id number] 08:31:00 Test Item Value Reference Range Interpretation Comments LITHIUM LEVEL (BEAKER) (test code 0.4 mmol/L 0.8-1.2 L = 630) RAPID DRUG SCREEN, [id number] 07:54:00 Test Item Value Reference Range Interpretation [...] situations. Chain of custody not maintained. Some tevn-ljd-udgduyw medications, as well as adulterants, may cause inaccurate results. Clinical correlation should be applied. A more comprehensive drug screen or confirmation of a detected drug may be performed upon request. CREATINE KINASE (CK), TOTAL AND [id number] 07:47:00 Test Item Value Reference Range Interpretation Comments CREATINE KINASE TOTAL (BEAKER) 161 U/L 29-200 (test code = 380) CREATINE KINASE-MB (BEAKER) (test 4.9 ng/mL 0.0-6.6 code = 750) CREATINE KINASE-MB INDEX (BEAKER) 3.0 % (test code = 395) CK-MB Reference Range:<6.7 Normal6.7-10.0 Borderline>10.0 AbnormalTROPONIN [id number] 07:47:00 Test Item Value Reference Range Interpretation [...] acute neurological disease, and persistent tachyarrhythmia.BASIC METABOLIC [id number] 04:56:00 Test Item Value Reference Range Interpretation [...] (test code = 413) CT, BRAIN, WITHOUT [id number] 21:00:00FINAL REPORT CT, BRAIN, WITHOUT CONTRAST INDICATION: [...] evidence of chronicity. Signed: JR Alva Robert [facility] Verified Date/Time: 05/08/2018 21:00:20 Reading Location: [address] Reading Room B-TYPE NATRIURETIC FACTOR (BNP)2018-05-08 19:03:00 Test Item Value Reference Range Interpretation Comments B-TYPE NATRIURETIC PEPTIDE (BEAKER) 254 pg/mL 0-100 H (test code = 700) CREATINE KINASE (CK), TOTAL AND [id number] 19:02:00 Test Item Value Reference Range Interpretation Comments CREATINE KINASE TOTAL (BEAKER) 150 U/L 29-200 (test code = 380) CREATINE KINASE-MB (BEAKER) (test 5.5 ng/mL 0.0-6.6 code = 750) CREATINE KINASE-MB INDEX (BEAKER) 3.7 % (test code = 395) CK-MB Reference Range:<6.7 Normal6.7-10.0 Borderline>10.0 AbnormalTROPONIN [id number] 19:02:00 Test Item Value Reference Range Interpretation [...] acute neurological disease, and persistent tachyarrhythmia.BASIC METABOLIC [id number] 18:32:00 Test Item Value Reference Range Interpretation [...] PATIEN TS. CBC W/PLT COUNT & AUTO [id number] 18:28:00 Test Item Value Reference Range Interpretation [...] 0-1 PERCENT (BEAKER) (test code = 2801) [id number] 18:15:00 Test Item Value Reference Range Interpretation Comments PARTIAL THROMBOPLASTIN TIME 30.0 seconds 22.5-36.0 (BEAKER) (test code = 760) Prior to initiating heparinXR Fluoroscopy in Imaging per [id number] 12:25:17 Patient: ALHAJI FARAH Date/Time04/05/2018 11:30 CDTReason [...]
[2021-02-16] MEDS ORDERED: MORPHINE 4 MG/ML SYR ONE ×2 (11:37→18:12)
[2021-02-16] MEDS ORDERED: NA CHLORIDE 0.9% 1,000 ML ONE (11:37)
[2021-02-16] MEDS ORDERED: LABETALOL 20 MG/4ML SYRINGE IV ONE ×2 (11:37→12:48)
[2021-02-16] MEDS ORDERED: ONDANSETRON 4 MG/2 ML VIAL ONE ×2 (11:37→16:32)
[2021-02-16 11:49] LABS: Absolute Lymphocytes (CBC) 1.6 K/uL (0.7-4.9); Basophils % 0.7 % (0-1.3); Lymphocytes % 15.3 % (15.3-44.8); MPV 9.3 fL (7.6-11.3); RBC Red Blood Cell Count 4.81 M/uL (4.33-5.43)
[2021-02-16 12:00] LABS: ALT/SGPT 23 U/L (12-78); AST/SGOT 18 U/L (15-37); Albumin 4.5 g/dL (3.4-5.0); Alkaline Phosphatase 72 U/L (45-117); BUN Blood Urea Nitrogen 22 mg/dL (7-18); Bicarbonate 23 mmol/L (21-32); Bilirubin Direct 0.2 mg/dL (0-0.2); Bilirubin Total 0.6 mg/dL (0.2-1.0); Glucose Level 144 mg/dL (74-106); Lipase 343 U/L (73-393); Potassium 3.5 mmol/L (3.5-5.1); Protein, Total 9.9 g/dL (6.4-8.2); Sodium Level 141 mmol/L (136-145)
[2021-02-16 12:36] LABS: Troponin I < 0.02 ng/mL (0.0-0.045)
[2021-02-16] MEDS ORDERED: PROMETHAZINE INJ 25 MG/ML AMP ONE (14:06)
[2021-02-16] MEDS ORDERED: MEPERIDINE HCL 25 MG/ML SYR ONE (14:07)
--- NOTE | 2021-02-16 15:25 | RAD REPORT ---
EXAM DESCRIPTION: CT - Abdomen Pelvis Wo Contrast - 02/16/2021 3:14 pm CLINICAL HISTORY: Abdominal pain COMPARISON: November 2020 TECHNIQUE: Computed axial tomography of the abdomen and pelvis was obtained. IV was not requested. O ral contrast was given. Coronal reconstructions performed. All CT scans are performed using dose optimization technique as appropriate and may include automated exposure control or mA/KV adjustment according to patient size. FINDINGS: The evaluation of solid organs and vessels is limited secondary to the lack of contrast a dministration. The liver, spleen, pancreas, adrenals and kidneys appear grossly normal. The appendix is normal. 3 centimeter area of narrowing involves the hepatic flexure colon. No evidence of diverticulitis. Postsurgical changes involve the spine. Small hiatal hernia IMPRESSION: 3 centimeter area of narrowing involving the hepatic flexure colon may be secondary to a mass. Colonoscopy is recommended
--- NOTE | 2021-02-16 17:20 | EDPHYS ---
Physician Documentation [facility] Name: Blayne Macias Age: 60 yrs Sex: Male : 1960 Arrival Date: 02/16/2021 Time: 10:37 Bed 25 Private MD: ED Physician Rohit Ortega HPI: 02/16 12:22 This 60 yrs old Male presents to ER via Ambulatory with complaints of pkl Abdominal Pain, Nausea/Vomiting/Diarrhea. 12:25 Onset: The symptoms/episode began/occurred 2 day(s) ago. Possible causes: unknown. pkl Associated signs and symptoms: The patient has no apparent associated signs or symptoms. Historical: - Allergies: 10:45 Codeine; ss 10:45 Morphine; ss 10:45 PENICILLINS; ss - Home Meds: 10:45 amiodarone 200 mg Oral tab 0.5 tab 2 times per day [Active]; amitriptyline 50 mg Oral ss tab 1 tab once daily [Active]; amlodipine 10 mg tab 1 tab once daily [Active]; aspirin 81 mg Oral chew 1 tab once daily [Active]; atorvastatin 20 mg Oral tab 1 tab once daily [Active]; carvedilol 25 mg Oral tab 0.5 tab 2 times per day [Active]; carvedilol 25 mg Oral tab 1 tab 2 times per day [Active]; citalopram 20 mg tab 1 tab once daily [Active]; clonidine HCl 0.2 mg Oral tab Q6h prn SBP>180 [Active]; clopidogrel 75 mg Oral tab 1 tab once daily [Active]; hydralazine 50 mg Oral tab three times a day [Active]; hydrochlorothiazide 12.5 mg Oral tab 1 tab once daily [Active]; hydrocodone bitartrate 30 mg Q12h Oral [Active]; isosorbide mononitrate 60 mg Oral Tb24 [Active]; isosorbide mononitrate 60 mg Oral Tb24 1 tab once daily [Active]; Lasix 40 mg Oral tab 1 tab 2 times per day [Active]; lithium carbonate 600 mg Oral cap 1 cap nightly [Active]; losartan 25 mg Oral tab 1 tab once daily [Active]; mometasone-formoterol inhalation [Active]; nitroglycerin 0.4 mg SL subl 1 tab [Active]; Norvasc 10 mg Oral tab once daily [Active]; potassium chloride 20 mEq Oral cpER 1 tab once daily [Active]; ranolazine 1000 mg Oral [Active]; simvastatin 40 mg Oral tab 1 tab once daily [Active]; - PMHx: 10:45 "electrical stimulator"; Atrial Fib; chronic back pain; CHF; CAD; Bipolar disorder; ss Back pain; High Cholesterol; Hypertension; Hepatitis; COPD; Cirrhosis; Pneumonia; - Immunization history:: Adult Immunizations up to date. - Social history:: Smoking status: Reported history of juuling and/or vaping. ROS: 12:25 Eyes: Negative for injury, pain, redness, and discharge, ENT: Negative for injury, pkl pain, and discharge, Neck: Negative for injury, pain, and swelling, Cardiovascular: Negative for chest pain, palpitations, and edema, Respiratory: Negative for shortness of breath, cough, wheezing, and pleuritic chest pain. 12:25 Abdomen/GI: Positive for nausea, vomiting, and diarrhea. 12:25 Back: Negative for acute changes. 12:25 : Negative for urinary symptoms. 12:25 MS/extremity: Negative for acute changes. 12:25 Skin: Negative for rash. 12:25 Neuro: Negative for altered mental status, loss of consciousness. Exam: 12:25 Head/Face: Normocephalic, atraumatic. Eyes: Pupils equal round and reactive to light, pkl extra-ocular motions intact. Lids and lashes normal. Conjunctiva and sclera are non-icteric and not injected. Cornea within normal limits. Periorbital areas with no swelling, redness, or edema. ENT: Nares patent. No nasal discharge, no septal abnormalities noted. Tympanic membranes are normal and external auditory canals are clear. Oropharynx with no redness, swelling, or masses, exudates, or evidence of obstruction, uvula midline. Mucous membranes moist. Neck: Trachea midline, no thyromegaly or masses palpated, and no cervical lymphadenopathy. Supple, full range of motion without nuchal rigidity, or vertebral point tenderness. No Meningismus. Chest/axilla: Normal chest wall appearance and motion. Nontender with no deformity. No lesions are appreciated. Cardiovascular: Regular rate and rhythm with a normal S1 and S2. No gallops, murmurs, or rubs. Normal PMI, no JVD. No pulse deficits. Respiratory: Lungs have equal breath sounds bilaterally, clear to auscultation and percussion. No rales, rhonchi or wheezes noted. No increased work of breathing, no retractions or nasal flaring. 12:25 Abdomen/GI: Bowel sounds: normal, Palpation: soft, mild abdominal tenderness, in the right upper quadrant, left upper quadrant, right lower quadrant and left lower quadrant. 12:25 Back: Exam negative for acute changes. 12:25 : Exam negative for acute changes. 12:25 Musculoskeletal/extremity: Exam is negative for acute changes. 12:25 Skin: Exam negative for rash. 12:25 Neuro: Orientation: is normal, Mentation: is normal, Cranial nerves: grossly normal, Motor: is normal. Vital Signs: 10:41 BP 223 / 112; Pulse 70; Resp 16; Temp 98.5(TE); Pulse Ox 99% on R/A; Weight 63.5 kg; ss Height 5 ft. 9 in. (175.26 cm); Pain 9/10; 10:46 BP 216 / 109; ss 11:15 BP 222 / 106; Pulse 70; Resp 22; Pulse Ox 100% on R/A; vg1 11:45 BP 237 / 118; Pulse 66; Resp 24; Pulse Ox 100% on R/A; vg1 12:00 BP 220 / 108; Pulse 63; Resp 18; Pulse Ox 99% on R/A; vg1 12:00 BP 220 / 108; vg1 12:20 BP 219 / 115; Pulse 64; Resp 16; Pulse Ox 98% on R/A; vg1 12:40 BP 193 / 94; Pulse 65; vg1 12:49 BP 193 / 94; Pulse 68; Resp 18; Pulse Ox 99% on R/A; vg1 13:00 BP 201 / 100; Pulse 68; Resp 18; Pulse Ox 99% on R/A; vg1 13:20 BP 216 / 113; Pulse 74; Resp 16; Pulse Ox 100% on R/A; vg1 14:00 BP 218 / 120; Pulse 72; Resp 16; Pulse Ox 100% on R/A; vg1 14:30 BP 203 / 106; Pulse 78; Resp 16; Pulse Ox 98% on R/A; vg1 16:12 BP 211 / 118; Pulse 68; Resp 16; Pulse Ox 100% on R/A; vg1 16:30 BP 203 / 98; Pulse 78; Resp 16; Pulse Ox 99% on R/A; vg1 17:00 BP 215 / 110; Pulse 73; Resp 16; Pulse Ox 100% on R/A; vg1 18:07 BP 175 / 117; Pulse 76; Resp 16; Pulse Ox 100% on R/A; vg1 19:14 BP 207 / 112; Pulse 70; Resp 18; Pulse Ox 98% ; vg1 10:41 Body Mass Index 20.67 (63.50 kg, 175.26 cm) ss MDM: 11:01 Patient medically screened. pkl 17:14 Data reviewed: vital signs, nurses notes, lab test result(s), EKG, radiologic studies. pkl 02/16 11:14 Order name: Basic Metabolic Panel; Complete Time: 13:15 pkl 02/16 11:14 Order name: CBC with Diff; Complete Time: 12:33 pkl 02/16 11:14 Order name: Hepatic Function; Complete Time: 13:15 pkl 02/16 11:14 Order name: Lipase; Complete Time: 13:15 pkl 02/16 11:15 Order name: Stool Culture pkl 02/16 11:15 Order name: Lactate; Complete Time: 12:33 pkl 02/16 12:01 Order name: Add On-Lab ss 02/16 12:20 Order name: Troponin I; Complete Time: 13:15 EDMS 02/16 14:36 Order name: Troponin (emerg Dept Use Only); Complete Time: 15:53 pkl 02/16 17:43 Order name: CBC with Automated Diff EDMS 02/16 17:43 Order name: CBC with Automated Diff EDMS 02/16 17:43 Order name: Comprehensive Metabolic Panel EDMS 02/16 17:43 Order name: Comprehensive Metabolic Panel EDMS 02/16 17:43 Order name: Magnesium EDMS 02/16 13:25 Order name: Abdomen ; Complete Time: 15:53 EDMS 02/16 17:43 Order name: Magnesium EDMS 02/16 17:43 Order name: Phosphorus EDMS 02/16 17:43 Order name: Phosphorus EDMS 02/16 17:43 Order name: Protime (+INR) EDMS 02/16 17:43 Order name: Protime (+INR) EDMS 02/16 17:43 Order name: PTT, Activated Partial Thromb EDLA 02/16 17:43 Order name: PTT, Activated Partial Thromb EDLA 02/16 17:45 Order name: COVID-19 : Document "Date of Symptom Onset" if Symptomatic. eb 02/16 19:18 Order name: SARS-COV-2 RT PCR EDLA 02/16 11:14 Order name: IV Saline Lock; Complete Time: 11:53 pkl 02/16 11:14 Order name: Labs collected and sent; Complete Time: 11:53 pkl 02/16 11:51 Order name: EKG; Complete Time: 11:52 mt 02/16 11:51 Order name: EKG - Nurse/Tech; Complete Time: 11:58 mt 02/16 14:36 Order name: EKG; Complete Time: 14:37 pkl 02/16 17:43 Order name: CONS Physician Consult [facility] 02/16 17:43 Order name: NPO EDLA 02/16 17:43 Order name: CONS Physician Consult EDLA Administered Medications: 11:46 Drug: NS 0.9% 1000 ml Route: IV; Rate: 125 ml/hr; Site: right antecubital; vg1 20:05 Follow up: IV Status: Completed infusion; IV Intake: 900ml vg1 11:46 Drug: morphine 4 mg Route: IVP; Site: right antecubital; vg1 12:30 Follow up: Response: No adverse reaction; Pain is decreased vg1 11:46 Drug: Zofran (Ondansetron) 4 mg Route: IVP; Site: right antecubital; vg1 12:30 Follow up: Response: No adverse reaction vg1 11:47 Drug: Trandate (labetalol) 20 mg Route: IVP; Site: right antecubital; vg1 12:00 Follow up: BP 220 / 108; Response: No adverse reaction vg1 11:59 Not Given (Provider notified pt has CHF; provider stated to cancel): NS 0.9% 1000 ml IV vg1 at 1000 ml once 12:35 Drug: Trandate (labetalol) 20 mg Route: IVP; Site: right antecubital; vg1 12:40 Follow up: BP 193 / 94; Pulse 65 bpm; Response: No adverse reaction vg1 13:57 Drug: Demerol (meperidine) 12.5 mg {Note: rass 0.} Route: IVP; Site: right antecubital; vg1 16:17 Follow up: Response: No adverse reaction; Pain is decreased vg1 13:57 Drug: Phenergan (promethazine) 12.5 mg Route: IVP; Site: right antecubital; vg1 16:17 Follow up: Response: No adverse reaction vg1 16:16 Drug: Zofran (Ondansetron) 4 mg Route: IVP; Site: left antecubital; vg1 17:00 Follow up: Response: No adverse reaction; Nausea is decreased vg1 18:06 Drug: morphine 4 mg Route: IVP; Site: right antecubital; vg1 20:00 Follow up: Response: No adverse reaction vg1 Disposition: 02/16/21 17:19 Hospitalization ordered by Qing Anders for Inpatient Admission. Preliminary diagnosis is Abdominal pain. Gastroenteritis. Dehydration. Hepatic flexure narrowing possible secondary to a mass. - Bed requested for Telemetry/MedSurg (Inpatient). - Status is Inpatient Admission. vg1 - Condition is Stable. - Problem is new. - Symptoms are unchanged. Signatures: Dispatcher [employer] EDLA Nara Auguste RN RN dw Lam, Pin, MD MD pkRiya Ventura, Amena Clemons RN, mt, Elizabeth eb Garcia, Victoria, RN RN vg1 Corrections: (The following items were deleted from the chart) 13:25 13:24 Abdomen Pelvis W Con+CT.RAD.BRZ ordered. [facility] EDLA 18:03 17:19 Hospitalization Ordered by Qing Anders MD for Inpatient Admission. Preliminary eb diagnosis is Abdominal pain. Gastroenteritis. Dehydration. Hepatic flexure narrowing possible secondary to a mass. Bed requested for Telemetry/MedSurg (Inpatient). Status is Inpatient Admission. Condition is Stable. Problem is new. Symptoms are unchanged. pkl 19:10 18:03 02/16/2021 17:19 Hospitalization Ordered by Qing Anders MD for Inpatient dw Admission. Preliminary diagnosis is Abdominal pain. Gastroenteritis. Dehydration. Hepatic flexure narrowing possible secondary to a mass. Bed requested for Telemetry/MedSurg (Inpatient). Status is Inpatient Admission. Condition is Stable. Problem is new. Symptoms are unchanged. eb 19:25 19:10 02/16/2021 17:19 Hospitalization Ordered by Qing Anders MD for Inpatient dw Admission. Preliminary diagnosis is Abdominal pain. Gastroenteritis. Dehydration. Hepatic flexure narrowing possible secondary to a mass. Bed requested for Telemetry/MedSurg (Inpatient). Status is Inpatient Admission. Condition is Stable. Problem is new. Symptoms are unchanged. dw 20:06 19:25 02/16/2021 17:19 Hospitalization Ordered by Qing Anders MD for Inpatient vg1 Admission. Preliminary diagnosis is Abdominal pain. Gastroenteritis. Dehydration. Hepatic flexure narrowing possible secondary to a mass. Bed requested for Telemetry/MedSurg (Inpatient). Status is Inpatient Admission. Condition is Stable. Problem is new. Symptoms are unchanged. dw
--- NOTE | 2021-02-16 17:20 | ER ---
Nurse's Notes [facility] Name: Blayne Macias Age: 60 yrs Sex: Male : 1960 Arrival Date: 02/16/2021 Time: 10:37 Bed 25 Private MD: Diagnosis: Abdominal pain. Gastroenteritis. Dehydration. Hepatic flexure narrowing possible secondary to a mass Presentation: 02/16 10:41 Chief complaint: Patient states: abd cramping, N/V/D that began 2 days ago. Denies ss fever/ cough. Coronavirus screen: Client denies travel out of the [place] in the last 14 days. Ebola Screen: Patient denies exposure to infectious person. Patient denies travel to an Ebola-affected area in the 21 days before illness onset. Initial Sepsis Screen: Does the patient meet any 2 criteria? No. Patient's initial sepsis screen is negative. Does the patient have a suspected source of infection? No. Patient's initial sepsis screen is negative. Risk Assessment: Do you want to hurt yourself or someone else? Patient reports no desire to harm self or others. Note Pt has been unable to hold down his BP medications. Onset of symptoms was February 15, 2020. 10:41 Method Of Arrival: Ambulatory ss 10:41 Acuity: SENTHIL 2 ss Historical: - Allergies: 10:45 Codeine; ss 10:45 Morphine; ss 10:45 PENICILLINS; ss - Home Meds: 10:45 amiodarone 200 mg Oral tab 0.5 tab 2 times per day [Active]; amitriptyline 50 mg Oral ss tab 1 tab once daily [Active]; amlodipine 10 mg tab 1 tab once daily [Active]; aspirin 81 mg Oral chew 1 tab once daily [Active]; atorvastatin 20 mg Oral tab 1 tab once daily [Active]; carvedilol 25 mg Oral tab 0.5 tab 2 times per day [Active]; carvedilol 25 mg Oral tab 1 tab 2 times per day [Active]; citalopram 20 mg tab 1 tab once daily [Active]; clonidine HCl 0.2 mg Oral tab Q6h prn SBP>180 [Active]; clopidogrel 75 mg Oral tab 1 tab once daily [Active]; hydralazine 50 mg Oral tab three times a day [Active]; hydrochlorothiazide 12.5 mg Oral tab 1 tab once daily [Active]; hydrocodone bitartrate 30 mg Q12h Oral [Active]; isosorbide mononitrate 60 mg Oral Tb24 [Active]; isosorbide mononitrate 60 mg Oral Tb24 1 tab once daily [Active]; Lasix 40 mg Oral tab 1 tab 2 times per day [Active]; lithium carbonate 600 mg Oral cap 1 cap nightly [Active]; losartan 25 mg Oral tab 1 tab once daily [Active]; mometasone-formoterol inhalation [Active]; nitroglycerin 0.4 mg SL subl 1 tab [Active]; Norvasc 10 mg Oral tab once daily [Active]; potassium chloride 20 mEq Oral cpER 1 tab once daily [Active]; ranolazine 1000 mg Oral [Active]; simvastatin 40 mg Oral tab 1 tab once daily [Active]; - PMHx: 10:45 "electrical stimulator"; Atrial Fib; chronic back pain; CHF; CAD; Bipolar disorder; ss Back pain; High Cholesterol; Hypertension; Hepatitis; COPD; Cirrhosis; Pneumonia; - Immunization history:: Adult Immunizations up to date. - Social history:: Smoking status: Reported history of juuling and/or vaping. Screenin:57 Abuse screen: Denies threats or abuse. Nutritional screening: No deficits noted. vg1 Tuberculosis screening: No symptoms or risk factors identified. Fall Risk No fall in past 12 months (0 pts). No secondary diagnosis (0 pts). IV access (20 points). Ambulatory Aid- None/Bed Rest/Nurse Assist (0 pts). Gait- Normal/Bed Rest/Wheelchair (0 pts) Mental Status- Oriented to own ability (0 pts). Total Kang Fall Scale indicates No Risk (0-24 pts). Assessment: 11:12 General: Appears in no apparent distress. uncomfortable, slender, Behavior is calm, vg1 cooperative. Pain: Complains of pain in chest and abdomen Pain currently is 9 out of 10 on a pain scale. Quality of pain is described as aching, pressure, Pain began 2-3 days ago. Neuro: Level of Consciousness is awake, alert, obeys commands, Oriented to person, place, time, situation. Cardiovascular: Patient's skin is warm and dry. Respiratory: Airway is patent Respiratory effort is even, unlabored, Respiratory pattern is tachypnea. GI: Abdomen is flat, Bowel sounds present X 4 quads. Abd is soft and non tender X 4 quads. : No signs and/or symptoms were reported regarding the genitourinary system. EENT: No signs and/or symptoms were reported regarding the EENT system. Derm: Skin is intact, Skin is pink, warm \\T\\ dry. Musculoskeletal: Circulation, motion, and sensation intact. 11:20 Reassessment: Morphine 4 mg IVP order by provider; pt allergies states allergic to vg1 morphine; asked pt to verify allergy, pt stated ' I cant take morphine, it just sometimes give me red bumps'. 12:37 Reassessment: Patient appears in no apparent distress at this time. Patient and/or vg1 family updated on plan of care and expected duration. Pain level reassessed. Patient is alert, oriented x 3, equal unlabored respirations, skin warm/dry/pink. Stated pain level has decreased to 7/10. Patient states feeling better. 13:40 Reassessment: Patient appears in no apparent distress at this time. Patient and/or vg1 family updated on plan of care and expected duration. Pain level reassessed. Patient is alert, oriented x 3, equal unlabored respirations, skin warm/dry/pink. Pt states is 'feeling nauseous again' and pain is back at 9/10. Provider notified. 14:56 Reassessment: Patient appears in no apparent distress at this time. Patient and/or vg1 family updated on plan of care and expected duration. Pain level reassessed. Patient is alert, oriented x 3, equal unlabored respirations, skin warm/dry/pink. 16:06 Reassessment: Patient appears in no apparent distress at this time. Patient and/or vg1 family updated on plan of care and expected duration. Pain level reassessed. Patient is alert, oriented x 3, equal unlabored respirations, skin warm/dry/pink. Pt stated ' I threw up not too long ago' yellow liquid substance noted in emesis bag. Provider notified. 16:12 Reassessment: Received VO from Dr Ortega to administer Zofran 4 mg IVP x1. vg1 17:22 Reassessment: Pt requesting pain medication. Pain rate is 9/10. Provider notified. vg1 17:54 Reassessment: Received VO from Dr Ortega to administer Morphine 4 mg IVP x1. vg1 18:28 Reassessment: Pt assigned a room, currently waiting for Covid results. vg1 Vital Signs: 10:41 BP 223 / 112; Pulse 70; Resp 16; Temp 98.5(TE); Pulse Ox 99% on R/A; Weight 63.5 kg; ss Height 5 ft. 9 in. (175.26 cm); Pain 9/10; 10:46 BP 216 / 109; ss 11:15 BP 222 / 106; Pulse 70; Resp 22; Pulse Ox 100% on R/A; vg1 11:45 BP 237 / 118; Pulse 66; Resp 24; Pulse Ox 100% on R/A; vg1 12:00 BP 220 / 108; Pulse 63; Resp 18; Pulse Ox 99% on R/A; vg1 12:00 BP 220 / 108; vg1 12:20 BP 219 / 115; Pulse 64; Resp 16; Pulse Ox 98% on R/A; vg1 12:40 BP 193 / 94; Pulse 65; vg1 12:49 BP 193 / 94; Pulse 68; Resp 18; Pulse Ox 99% on R/A; vg1 13:00 BP 201 / 100; Pulse 68; Resp 18; Pulse Ox 99% on R/A; vg1 13:20 BP 216 / 113; Pulse 74; Resp 16; Pulse Ox 100% on R/A; vg1 14:00 BP 218 / 120; Pulse 72; Resp 16; Pulse Ox 100% on R/A; vg1 14:30 BP 203 / 106; Pulse 78; Resp 16; Pulse Ox 98% on R/A; vg1 16:12 BP 211 / 118; Pulse 68; Resp 16; Pulse Ox 100% on R/A; vg1 16:30 BP 203 / 98; Pulse 78; Resp 16; Pulse Ox 99% on R/A; vg1 17:00 BP 215 / 110; Pulse 73; Resp 16; Pulse Ox 100% on R/A; vg1 18:07 BP 175 / 117; Pulse 76; Resp 16; Pulse Ox 100% on R/A; vg1 19:14 BP 207 / 112; Pulse 70; Resp 18; Pulse Ox 98% ; vg1 10:41 Body Mass Index 20.67 (63.50 kg, 175.26 cm) ED Course: 10:37 Patient arrived in ED. ds1 10:42 Triage completed. ss 10:45 Arm band placed on right wrist. ss 11:01 Rohit Ortega MD is Attending Physician. pkl 11:14 Fidelina Sandoval RN is Primary Nurse. vg1 11:30 Initial lab(s) drawn, by me, sent to lab. Inserted saline lock: 20 gauge in right vg1 antecubital area, using aseptic technique. Blood collected. 11:57 Patient has correct armband on for positive identification. Placed in gown. Bed in low vg1 position. Call light in reach. Side rails up X 1. 15:[address] via stretcher. vg1 15:14 Abdomen In Process Unspecified. EDMS 15:[address] Patient moved back from [address]. vg1 17:15 Qing Anders MD is Hospitalizing Provider. pkl 18:07 COVID swab sent to lab. vg1 19:56 No provider procedures requiring assistance completed. Patient admitted, IV remains in vg1 place. Administered Medications: 11:46 Drug: NS 0.9% 1000 ml Route: IV; Rate: 125 ml/hr; Site: right antecubital; vg1 20:05 Follow up: IV Status: Completed infusion; IV Intake: 900ml vg1 11:46 Drug: morphine 4 mg Route: IVP; Site: right antecubital; vg1 12:30 Follow up: Response: No adverse reaction; Pain is decreased vg1 11:46 Drug: Zofran (Ondansetron) 4 mg Route: IVP; Site: right antecubital; vg1 12:30 Follow up: Response: No adverse reaction vg1 11:47 Drug: Trandate (labetalol) 20 mg Route: IVP; Site: right antecubital; vg1 12:00 Follow up: BP 220 / 108; Response: No adverse reaction vg1 11:59 Not Given (Provider notified pt has CHF; provider stated to cancel): NS 0.9% 1000 ml IV vg1 at 1000 ml once 12:35 Drug: Trandate (labetalol) 20 mg Route: IVP; Site: right antecubital; vg1 12:40 Follow up: BP 193 / 94; Pulse 65 bpm; Response: No adverse reaction vg1 13:57 Drug: Demerol (meperidine) 12.5 mg {Note: rass 0.} Route: IVP; Site: right antecubital; vg1 16:17 Follow up: Response: No adverse reaction; Pain is decreased vg1 13:57 Drug: Phenergan (promethazine) 12.5 mg Route: IVP; Site: right antecubital; vg1 16:17 Follow up: Response: No adverse reaction vg1 16:16 Drug: Zofran (Ondansetron) 4 mg Route: IVP; Site: left antecubital; vg1 17:00 Follow up: Response: No adverse reaction; Nausea is decreased vg1 18:06 Drug: morphine 4 mg Route: IVP; Site: right antecubital; vg1 20:00 Follow up: Response: No adverse reaction vg1 Intake: 20:05 IV: 900ml; Total: 900ml. vg1 Outcome: 17:19 Decision to Hospitalize by Provider. pkl 19:56 Admitted to Tele accompanied by tech, via stretcher, room 222, with chart, Report vg1 called to DIANA White 19:57 Condition: unchanged vg1 19:57 Instructed on the need for admit. 20:06 Patient left the ED. vg1 Signatures: Dispatcher [employer] Rohit Gibbons MD MD pkYamilex Bernard ds1 Riya Bryan RN RN ss Garcia, Victoria, RN RN vg1
[2021-02-16] MEDS ORDERED: ONDANSETRON 4 MG/2 ML VIAL IV PRN (17:32)
[2021-02-16] MEDS ORDERED: ACETAMINOPHEN 500 MG TAB PO PRN (17:32)
[2021-02-16] MEDS ORDERED: GOLYTELY 4000 ML PO SCH (18:00)
[2021-02-16] MEDS: ENOXAPARIN 40 MG/0.4 ML SQ SCH (18:00)
[2021-02-16] MEDS ORDERED: CEFAZOLIN/NS 1gm 1 GM/50 ML BAG IVPB SCH (18:00)
[2021-02-16 20:31] VITALS: BMI 20.9
[2021-02-16] MEDS: HYDRALAZINE HCL 20 MG/ML VIAL IV PRN (20:47)
[2021-02-16] MEDS: NA CHLORIDE 0.9% 1,000 ML IV SCH (20:49)
[2021-02-16] MEDS ORDERED: cloNIDine HCL 0.1 MG TAB PO PRN (21:19)
--- NOTE | 2021-02-16 21:32 | CON ---
Date of Consultation: 02/16/2021 Reason For Consultation: Intractable nausea, vomiting, and diarrhea, history of CAD. History Of Present Illness: Mr. Macias is a 60-year-old white male. He is very well known to us from previous office visits and admissions. He has a history of CABG x2. Heart catheterization that was done approximately a year ago showed a patent GONZALES to the LAD with a patent graft to the RCA, modera te disease in the circumflex and OM system. He has diffuse distal vessel disease. A stress test was done in November of 2020 was normal without any evidence of ischemia. Echocardiogram in November of 2000 showed mild diastolic congestive heart failure. The patient came in with intractable nausea, v omiting, diarrhea. No cardiac symptoms. CT of the abdomen showed a 3 cm mass at the hepatic flexure . Colonoscopy is recommended. Past Medical History: Includes CABG, bipolar disorder, cirrhosis, pneumonia, chronic renal disease, paroxysmal atrial fibrillation, dyslipidemia, diastolic congestive heart failure. He had an electric stimulator in place for chronic back pain. Allergies: HE IS ALLERGIC TO PENICILLIN, MORPHINE, AND CODEINE. Review of Systems: Negative. Social History: Negative. Family History: Noncontributory. Medications: At home include Norvasc, aspirin, Lipitor, amiodarone, Plavix, Coreg, clonidine, hydroc hlorothiazide, hydralazine, Imdur, lithium, losartan, Zocor, Anexsia, and potassium. Physical Examination: Vital Signs: Stable. Afebrile. HEENT: Negative. Neck: Supple with no bruit. Chest: Clear. Cardiac: Regular rhythm and rate with an S4 gallops. No murmurs or rubs. Abdomen: Benign. Extremities: No clubbing, cyanosis, or edema. Diagnostic Data: Creatinine of 1.46, glucose of 144. EKG is unremarkable. Chest x-ray is unremarka ble. CT of the abdomen showed a 3 cm mass at the hepatic flexure. Impression And Plan: 1.Intractable nausea, vomiting, and diarrhea. Denies any acute coronary syndrome. He is to have a GI consultation for colonoscopy. 2.Coronary artery disease, status post coronary artery bypass graft x2 with recent catheterization s howing patent GONZALES to the LAD, patent vein graft to the RCA, normal circumflex. Negative stress test in November of 2020. Echocardiogram showed mild diastolic congestive heart failure. No need to rep eat cardiac workup. He is clear for colonoscopy if that becomes an issue. 3.Chronic renal disease. Last creatinine is 1.46, that is stable. 4.Bipolar disorder. 5.Cirrhosis. 6.History of pneumonia. 7.History of paroxysmal atrial fibrillation, on amiodarone. 8.Dyslipidemia. 9.Chronic back pain. 10.Chronic diastolic congestive heart failure. One thing that Mr. Macias may need is the primary care physician that follows him on a regular basis. I certainly will be happy to follow him on a regular basis myself. I think his medical regimen may be too extensive. We may be able to help him by taking him off some medication. We will see what th e colonoscopy shows or GI consultation have to say before making further decisions. Again, no need f or any cardiac workup at this point. SUSIE/REINA Voice ID: [id number] Report ID: [id number]
[2021-02-16] MEDS: HYDROMORPHONE HCL 1 MG/ML INJ IV PRN (21:41)
[2021-02-16] MEDS: CEFAZOLIN/SWI 1gm 1 GM/10 ML SYR IV SCH (21:45)
[2021-02-16] MEDS ORDERED: MAGNESIUM CITRATE 300 ML BOT PO SCH (22:00)
[2021-02-16] MEDS ORDERED: METOCLOPRAMIDE 10 MG/2mL INJ IV SCH (22:00)
[2021-02-16] MEDS ORDERED: CEFAZOLIN SODIUM 1 GM/VIAL ONE (22:07)
[2021-02-17] MEDS: CEFAZOLIN/SWI 1gm 1 GM/10 ML SYR IV SCH ×3 (01:00→15:08)
[2021-02-17] MEDS: HYDROMORPHONE HCL 1 MG/ML INJ IV PRN ×5 (02:22→23:43)
[2021-02-17 05:58] LABS: Absolute Lymphocytes (CBC) 3.6 K/uL (0.7-4.9); Basophils % 0.6 % (0-1.3); Hematocrit 40.2 % (39.6-49.0); Lymphocytes % 29.3 % (15.3-44.8); MPV 9.4 fL (7.6-11.3); RBC Red Blood Cell Count 4.38 M/uL (4.33-5.43)
[2021-02-17 06:12] LABS: Albumin 4.3 g/dL (3.4-5.0); Bilirubin Total 0.4 mg/dL (0.2-1.0); Potassium 3.2 mmol/L (3.5-5.1)
[2021-02-17 06:15] LABS: Protime INR 1.24
--- NOTE | 2021-02-17 06:41 | P.HP ---
Certification for Inpatient Patient admitted to: Inpatient With expected LOS: >2 Midnights Patient will require the following post-hospital care: None Practitioner: I am a practitioner with admitting privileges, knowledge of patient current condition, hospital course, and medical plan of care. Services: Services provided to patient in accordance with Admission requirements found in Title 42 Section 412.3 of the Code of Federal Regulations Patient History Date of Service: 02/16/21 Reason for admission: Intractable nausea and vomiting/chest pain/colonic mass History of Present Illness: Patient is a 60-year-old gentleman well known to me from multiple prior admissions in the past. Patient presents with intractable nausea and vomiting and generalized weakness. He has been having some abdominal discomfort in epigastric tenderness. He was seen a few months ago with similar complaints. Cardiac work was unremarkable. CT imaging of the abdomen revealed that patient had a mass in the hepatic flexure. Gastroenterology is concerned this could be a malignancy and patient will need a colonoscopy. This will be arranged for in the morning. Allergies Penicillins Allergy (Intermediate, Verified 09/09/20 23:52) Hives/Rash codeine [From Tylenol-Codeine] Allergy (Verified 09/09/20 23:52) Itching morphine Allergy (Verified 09/09/20 23:51) Itching oxycodone Allergy (Verified 09/09/20 23:52) Itching Home Medications: Atorvastatin Calcium [Lipitor] 40 mg PO DAILY 12/18/20 Clonidine HCl [Catapres*] 0.2 mg PO Q6HP PRN 12/18/20 Gabapentin 600 mg PO BEDTIME 12/18/20 ALPRAZolam [Xanax*] 0.25 mg PO TID PRN #30 tab 12/19/20 Amitriptyline [Elavil] 25 mg PO BEDTIME 12/19/20 Hydrocodone Bit/Acetaminophen [[place] 10-325 Tablet] 1 each PO Q6HP PRN #30 tablet 12/19/20 - Past Medical/Surgical History Has patient received pneumonia vaccine in the past: No Diabetic: No -: Chronic back pain -: HTN -: CAD, CABG times 2 vessels in December 2015 -: COPD -: Exposure to asbestosis -: Bipolar disorder -: Hyperlipidemia -: Severe sleep apnea -: Chronic pain syndrome -: CHF -: Atrial fibrillation on amiodarone-no anti coagulation therapy -: pneumonia -: Right Leg surgery -: Back surgery -: Cholecystectomy -: Cardiac catheterization 04/13 without stent placement -: CABG- Double bypass 12/2015 -: Neck Surgery -: Cervical fusion -: L4-L5-S1 fusion Psychosocial/ Personal History: Single, Children-1, Work-Disabled due to back. - Family History Mother Medical History: Cancer Notes: Patient stated mother of breast cancer Father Medical History: Heart disease, Cancer Notes: Patient stated father of stomach and bone cancer. - Social History Smoking Status: Former smoker Alcohol use: No CD- Drugs: No Caffeine use: No Place of Residence: Home Review of Systems 10-point ROS is otherwise unremarkable Physical Examination - Vital Signs Temperature: 97.0 F Blood Pressure: 196/93 Pulse: 81 Respirations: 20 Pulse Ox (%): 98 - Physical Exam General: Alert, In no apparent distress, Oriented x3 HEENT: Atraumatic, PERRLA, Mucous membr. moist/pink, EOMI, Sclerae nonicteric Neck: Supple, 2+ carotid pulse no bruit, No LAD, Without JVD or thyroid a bnormality Respiratory: Clear to auscultation bilaterally, Normal air movement Cardiovascular: Regular rate/rhythm, Normal S1 S2, No murmurs Gastrointestinal: Normal bowel sounds, Soft and benign, Non-distended, No rebound, No guarding, Tenderness Musculoskeletal: No clubbing, No tenderness Integumentary: No rashes Neurological: Normal gait, Normal speech, Normal strength at 5/5 x4 extr, Normal tone, Normal affect Lymphatics: No axilla or inguinal lymphadenopathy - Studies Laboratory Data (last 24 hrs) 02/16/21 11:34: WBC 10.60, Hgb 14.8, Hct 44.0, Plt Count 379 02/16/21 11:34: Sodium 141, Potassium 3.5, BUN 22 H, Creatinine 1.46 H, Glucose 144 H, Total Bilirubin 0.6, AST 18, ALT 23, Alkaline Phosphatase 72, Troponin I < 0.02, Lipase 343 Assessment & Plan - Problems (Diagnosis) (1) Intractable nausea and vomiting Current Visit: Yes Status: Acute (2) Abdominal pain Current Visit: No Status: Acute (3) Atrial fibrillation Onset Date: 10/13/16 Current Visit: No Status: Chronic Qualifiers: (4) Chronic back pain Onset Date: 10/27/16 Current Visit: No Status: Chronic Qualifiers: (5) Former smoker Onset Date: 10/13/16 Current Visit: No Status: Chronic (6) Hyperlipidemia Onset Date: 10/13/16 Current Visit: No Status: Chronic Qualifiers: (7) Chest pain Onset Date: 01/20/16 Current Visit: No Status: Resolved Qualifiers: - Plan 1. Continue with IV hydration 2. Continue with IV antibiotics 3. Continue with pain control 4. NPO 5. GI consultation for colonoscopy in a.m. 6. Serial H&H, and we will monitor CBC, BMP, LFTs and lipase along with electrolytes. 7. GI and DVT prophylaxis Discharge Plan: Home Plan to discharge in: Greater than 2 days - Advance Directives Does patient have a Living Will: Yes Does patient have a Durable POA for Healthcare: Yes - Code Status/Comfort Care Code Status Assessed: Yes Code Status: Full Code Critical Care: No Time Spent Managing PTS Care (In Minutes): 45
[2021-02-17] MEDS: ENOXAPARIN 40 MG/0.4 ML SQ SCH ×2 (09:00)
[2021-02-17] MEDS: KCL 20 MEQ/100 mL IVPB 20 MEQ/100 ML BAG IV SCH ×2 (09:13→10:00)
--- NOTE | 2021-02-17 10:49 | EKG ---
Test Date: 2021-02-16 Test Time: 14:46:53 Canning Machine Operator: GAVIN MEASUREMENT RESULTS: Intervals: Rate: 71 DE: 182 QRSD: 100 QT: 398 QTc: 432 [place]: P: 70 DE: 182 QRS: 93 T: -77 INTERPRETIVE STATEMENTS: Normal sinus rhythm RSR' or QR pattern in V1 suggests right ventricular conduction delay Septal infarct, age undetermined Lateral infarct, age undetermined ST & T wave abnormality, consider inferior ischemia Abnormal ECG Compared to ECG 12/18/2020 10:22:52 RSR' in V1 or V2 now present Prolonged QT interval no longer present Myocardial infarct finding still present ST (T wave) deviation still present Possible ischemia still present Electronically Signed On 02-17-21 10:46:48 CDT by Ghulam Berrios
--- NOTE | 2021-02-17 10:50 | EKG ---
Test Date: 2021-02-16 Test Time: 11:55:28 Promotions Assistant: CONNOR MEASUREMENT RESULTS: Intervals: Rate: 57 LA: 188 QRSD: 112 QT: 514 QTc: 500 [place]: P: 64 LA: 188 QRS: 40 T: 156 INTERPRETIVE STATEMENTS: Sinus bradycardia Incomplete right bundle branch block Anteroseptal infarct, possibly acute Prolonged QT ACUTE FL Abnormal ECG Compared to ECG 12/18/2020 10:22:52 Incomplete right bundle-branch block now present Sinus rhythm no longer present ST (T wave) deviation no longer present Possible ischemia no longer present Myocardial infarct finding still present Electronically Signed On 02-17-21 10:46:55 CDT by Ghulam Berrios
[2021-02-17] MEDS: HYDRALAZINE HCL 20 MG/ML VIAL ONE ×2 (11:04→11:20)
[2021-02-17] MEDS ORDERED: Ringers Lactate 1,000 ML IV ONE (11:13)
[2021-02-17] MEDS ORDERED: propofoL 200 MG/20 ML VIAL IV ONE ×2 (12:12→12:39)
[2021-02-17] MEDS ORDERED: LIDOCAINE 1% MPF 30 ML VIAL ONE (12:12)
--- NOTE | 2021-02-17 12:25 | ENDO RPT ---
[address], [address] EGD PROCEDURE REPORT EXAM DATE: 02/17/2021 PATIENT NAME: Blayne Macias MR#: [id number] BIRTHDATE: 1960 ATTENDING: Sameer Liz Dr STATUS: inpatient - [facility] K[facility]PER: Tiara Zavala RN and Brooke Lim INDICATIONS: The patient is a 60 yr old Male here for an EGD due to mid epigastric abdominal pain, nausea and vomiting, weight loss, and unexplained diarrhea PROCEDURE PERFORMED: EGD with biopsy MEDICATIONS: Per Anesthesia. TOPICAL ANESTHETIC: none CONSENT: The patient understands the risks and benefits of the procedure and understands that these risks include, but are not limited to: sedation, allergic reaction, infection, perforation and/or bleeding. Alternative means of evaluation and treatment include, among others: physical exam, x-rays, and/or surgical intervention. The patient elects to proceed with this endoscopic procedure. DESCRIPTION OF PROCEDURE: During intra-op preparation period all mechanical medical equipment was checked for proper function. Hand hygiene and appropriate measures for infection prevention was taken. Procedure, possible complications, and alternatives including but not limited to the possibility of bleeding, perforation, tear, infection, sepsis, need for surgery, need for blood transfusion, and anesthesia related complications were explained to the patient. After the risks, benefits and alternatives of the procedure were thoroughly explained, Informed consent was verified, confirmed and timeout was successfully executed by the treatment team. The patient was placed in the left lateral position. The patient was anesthetized with topical anesthesia. Through the anesthetized oropharyngeal area, the scope was passed without any difficulty. The [id number] ([id number]) endoscope was introduced through the mouth and advanced to the third portion of the duodenum. Retroflexed views revealed a small hiatal hernia. The gastroscope was then slowly withdrawn and removed. A small hiatal hernia was found Mild gastritis was found in the body and the antrum of the stomach. Small bowel biopsies obtained with history of ADVERSE EVENTS: There were no complications. IMPRESSIONS: 1. Small hiatal hernia 2. Mild gastritis with specks of heme in the body and the antrum of the stomach, s/p biopsies RECOMMENDATIONS: 1. await biopsy results 2. acid suppression therapy REPEAT EXAM: Sameer Liz Dr eSigned: Sameer Liz Dr 02/17/2021 12:25 PM cc: Juwan James CPT CODES: ICD9 CODES: PATIENT NAME: Blayne Macias MR#: [id number]
--- NOTE | 2021-02-17 13:04 | ENDO RPT ---
[address], [address] COLONOSCOPY PROCEDURE REPORT EXAM DATE: 02/17/2021 PATIENT NAME: Blayne Macias MR #: [id number] BIRTHDATE: 1960 ATTENDING: Sameer Liz Dr STATUS: inpatient - 7 STAIN APPLICATOR: Tiara Zavala RN and Brooke Lim INDICATIONS: The patient is a 60 yr old Male here for a colonoscopy due to abnormal CT of abdomen and abdominal pain PROCEDURE PERFORMED: Colonoscopy MEDICATIONS: Per Anesthesia. ESTIMATED BLOOD LOSS: None CONSENT: The patient understands the risks and benefits of the procedure and understands that these risks include, but are not limited to: sedation, allergic reaction, infection, perforation and/or bleeding. Alternative means of evaluation and treatment include, among others: physical exam, x-rays, and/or surgical intervention. The patient elects to proceed with this endoscopic procedure. DESCRIPTION OF PROCEDURE: During intra-op preparation period all mechanical medical equipment was checked for proper function. Hand hygiene and appropriate measures for infection prevention was taken. Procedure, possible complications, alternatives including, but not limited to possibility of bleeding, perforation, tear, infection, sepsis, need for surgery, need for blood transfusion, were explained to the patient. After the risks, benefits and alternatives of the procedure were thoroughly explained, Informed consent was verified, confirmed and timeout was successfully executed by the treatment team. The patient was placed in the left lateral position. A digital rectal exam was performed and revealed no abnormalities of the rectum. After appropriate level of anesthesia, the scope was passed. The [id number] ([id number]) and [id number] ([id number]) endoscope was introduced through the anus and advanced to the terminal ileum which was intubated for a short distance. The quality of the prep was fair. The instrument was then slowly withdrawn as the colon was fully examined. Scope withdrawal time was 8 minutes. COLON FINDINGS: A smooth sessile polyp measuring 3 mm in size was found in the rectum. A polypectomy was performed with cold forceps. A spasm of the colon was present at the hepatic flexure. Few small diverticula were found throughout the entire examined colon. The opening was small. Small internal hemorrhoids were found. Retroflexed views revealed small hemorrhoids. The scope was then completely withdrawn from the patient and the procedure terminated. ADVERSE EVENTS: There were no complications. IMPRESSIONS: 1. 3 mm sessile polyp in the rectum; polypectomy was performed with cold forceps 2. Spasm of the colon at the hepatic flexure 3. Few small diverticula throughout the entire examined colon 4. Small internal hemorrhoids 5. Intubation to terminal ileum RECOMMENDATIONS: 1. await biopsy results 2. avoid NSAIDS for 2 weeks RECALL: Return in 3 year(s) for Colonoscopy. Sameer Liz Dr eSigned: Sameer Liz Dr 02/17/2021 1:04 PM cc: Juwan James CPT CODES: ICD9 CODES: 1. 569.0 Anal and rectal polyp 2. 564.9 Unspecified functional disorder of intestine PATIENT NAME: Blayne Macias MR#: [id number]
[2021-02-17] MEDS ORDERED: POTASSIUM CL SA 10 MEQ TAB PO ONE ×2 (15:00→21:53)
[2021-02-17] MEDS ORDERED: SODIUM CHLORIDE 0.9% 10ML INJ IV PRN (15:12)
[2021-02-17] MEDS ORDERED: ALPRAZOLAM 0.25 MG TABLET PO PRN (15:14)
--- NOTE | 2021-02-17 15:14 | P.PN ---
Subjective Date of Service: 02/17/21 Chief Complaint: Intractable nausea and vomiting/chest pain/colonic mass Subjective: Other (Patient still with nausea and vomiting) Physical Examination - Vital Signs Temperature: 97.8 F Blood Pressure: 173/65 Pulse: 71 Respirations: 16 Pulse Ox (%): 98 Assessment & Plan Discharge Plan: Home Plan to discharge in: 48 Hours Physician Review Additional Text: Physical exam: Patient alert, cooperative. Heart: Regular rate and rhythm Lungs: Clear to auscultation Abdomen: Soft slightly tender to the epigastric region. Extremities: Good range of motion to the upper and lower extremities. No focal deficits. Impression: Nausea, vomiting with possible mass to the right hepatic flexure CAD with prior CABG x2 vessel with recent heart catheterization showing patent GONZALES to LAD, patent vein graft to RCA, normal circumflex. Negative stress test November 2020. Echocardiogram showing mild diastolic CHF Bipolar disorder Cirrhosis Paroxysmal atrial fibrillation Hyperlipidemia Plan: Patient to have colonoscopy today. Case discussed with GI after colonoscopy. No mass identified. Etiology of nausea still unknown. Will provide Protonix. Need to obtain restart home medications for his CAD, paroxysmal atrial fibrillation and CHF. Cardiology recommends no further evaluation at this time. Will need to continue home medication for pain. We will continue to monitor and assess. Slowly advance diet. Anticipate improvement over the next 24 hours. Time Spent Managing Pts Care (In Minutes): 55
[2021-02-17] MEDS: HYDRALAZINE HCL 20 MG/ML VIAL IV PRN ×2 (15:40→19:45)
--- NOTE | 2021-02-17 18:40 | CON ---
Date of Consultation: 02/17/2021 Reason For Consultation: Midepigastric pain, nausea, vomiting over the past [address] scan re vealing a 3 cm possible mass at the hepatic flexure of the colon. History Of Present Illness: The patient is a 60-year-old white male with history of hypertension, hy perlipidemia, coronary artery disease, status post 2-vessel CABG, cholecystectomy, and multiple back surgeries. The patient presented to the hospital with a 3-day history of midepigastric pain, nausea, vomiting, diarrhea. He also reports approximately 50 pounds weight loss over the past 3 years from a baseline of 190 pounds down to [address] scan shows a 3 cm area of narrowing at the hepatic f lexure, suspicious for a malignancy/mass. The patient denies any melena, hematochezia, hematemesis, coffee-grounds emesis, hematuria, dysuria, polyuria, polydipsia, chest pain, shortness of breath, sei zure, syncope, lower extremity edema, muscle aches, joint aches, and backaches. Past Medical History: Significant for hypertension, hyperlipidemia, coronary artery disease, status post 2-vessel CABG, laparoscopic cholecystectomy, and multiple back surgeries. Medications: At home include Lipitor, Catapres, gabapentin, Xanax, Elavil, [place]. Allergies: TO PENICILLIN, CODEINE, MORPHINE, OXYCODONE, AND SOMA. Past Medical History: Chronic back pain, COPD, exposure to asbestosis, bipolar disorder, severe slee p apnea, congestive heart failure, atrial fibrillation on amiodarone, right leg surgery, cardiac cath without stent placement on 04/13, neck surgery with cervical fusion and L4, L5 S1 fusion. Social History: , 2 children. No tobacco, quit in May 2020. No alcohol, quit in 2011. Family History: Father of lung and bone cancer. Mother of breast cancer. Review of Systems: The patient has midepigastric pain, nausea, vomiting, diarrhea, weight loss. He denies any melena, h ematochezia, hematemesis, coffee-grounds emesis, hemoptysis, hematuria, dysuria, polydipsia, chest pa in, shortness of breath, seizure, syncope, lower extremity edema, muscle aches, joint aches, backache s, fevers, chills, night sweats. Physical Examination: Vital Signs: The patient is afebrile with temperature of 98.6 degrees Fahrenheit, pulse 83, respirat ions 17, blood pressure 186/86, O2 saturation 96% to 98%. General: He is a well-nourished, well-developed male, lying in bed, in no acute distress. HEENT: Normocephalic, atraumatic. Anicteric. Pupils equal, round, and reactive to light. Extraocu lar movements are intact. Oropharynx is clear. Neck: Supple. No masses. Respirations: Clear to auscultation bilaterally. Cardiac: Regular rate and rhythm. No gallops or rubs. Gastrointestinal: Positive bowel sounds. Soft, nondistended. Midepigastric pain. No peritoneal or Murillo sign. No rebound. Extremities: He did have some clubbing and mild cyanosis. 2+ pulses. Neurologic: Alert and oriented x3. Grossly nonfocal. 5/5 motor sensation, intact to light touch. Laboratory Data: The patient has a white count of 12.4 from 10.6 yesterday, hemoglobin of 13.3, torsten tocrit of 40.2, MCV of 93, platelet count 251. Polys of 59% down from 79% yesterday, lymphocytes 29% , monocytes 11%, eosinophils 1%. PT of 14.3, INR of 1.34, PTT of 31.6. Sodium 140, potassium 3.2, c hloride 104, bicarb 27, BUN of 24, creatinine of 1.58, glucose 92, calcium 9.0, phosphorus 3.0, magne sium 3.0. Total bilirubin 0.4, AST of 54, ALT of 34, alkaline phosphatase 69. Troponin I of 0.02 an d repeat of less than 0.02. Total protein 9.0, albumin 4.3, lipase of 343 and normal. COVID-[address] PCR testing is negative. CT abdomen and pelvis revealed a 3 cm area of narrowing at hepatic flexure, cou ld be mass or other. Impression: 1.Midepigastric pain, nausea, vomiting, and diarrhea x3 days. May need to investigate with EGD. angelina stool studies. 2.Abnormal CT revealing a 3 cm area of narrowing at the hepatic flexure, could be mass, cancer or ot her. He does note a 50-pound weight loss, going from 190 pounds to 141 pounds over the past 8 years. He denies any melena, hematochezia, fevers, chills, night sweats . 3.History of hypertension, hyperlipidemia, coronary artery disease, 2-vessel CABG, cholecystectomy a nd multiple back surgeries and other as per above. Recommendations: 1.Proceed with EGD and colonoscopy. 2.Check stool studies. 3.P.r.n. pain medicines, antiemetics. Continue IV fluids and IV antibiotics. JANE/REINA Voice ID: [id number] Report ID: [id number]
[2021-02-17] MEDS: NA CHLORIDE 0.9% 1,000 ML IV SCH ×2 (19:52→20:40)
[2021-02-17] MEDS ORDERED: GABAPENTIN 300 MG CAP PO SCH (21:00)
[2021-02-17] MEDS ORDERED: AMITRIPTYLINE 25 MG TAB PO SCH (21:00)
[2021-02-17] MEDS ORDERED: HOME MED 1 EA UNK (Gabapentin [Gabapentin] 600 MG Tablet) PO SCH (21:00)
[2021-02-17] MEDS: HYDROCODONE/APAP 10/325 TAB PO PRN (22:03)
[2021-02-18 01:01] VITALS: O2SAT 97
[2021-02-18] MEDS: HYDROMORPHONE HCL 1 MG/ML INJ IV PRN ×2 (03:28→07:59)
[2021-02-18] MEDS: HYDRALAZINE HCL 20 MG/ML VIAL IV PRN (03:37)
[2021-02-18] MEDS: HYDROCODONE/APAP 10/325 TAB PO PRN ×2 (06:10→12:16)
[2021-02-18 07:35] LABS: Potassium 3.5 mmol/L (3.5-5.1)
[2021-02-18] MEDS: ENOXAPARIN 40 MG/0.4 ML SQ SCH (07:59)
[2021-02-18] MEDS ORDERED: PANTOPRAZOLE 40 MG INJ IVP SCH (09:00)
[2021-02-18] MEDS ORDERED: THIAMINE HCL 100 MG TABLET PO SCH (09:00)
[2021-02-18] MEDS ORDERED: ATORVASTATIN 40 MG TAB PO SCH (09:00)
[2021-02-18] MEDS ORDERED: FOLIC ACID 1 MG TABLET PO SCH (09:00)
[2021-02-18] MEDS: NA CHLORIDE 0.9% 1,000 ML IV SCH (09:31)
--- NOTE | 2021-02-18 12:34 | P.DS ---
Admission Date: 02/16/21 Discharge Date: 02/18/21 Primary Care Provider: Dr. Heard Disposition: AMA-LEFT AGAINST MEDICAL ADVIC Discharge Condition: GOOD Reason for Admission: Intractable nausea and vomiting/chest pain/colonic mass Consultations: GI-Dr. Liz Cardiology-Dr. Berrios Procedures: COVID: Negative CT Scan: FINDINGS: The evaluation of solid organs and vessels is limited secondary to the lack of contrast administration. The liver, spleen, pancreas, adrenals and kidneys appear grossly normal. The appendix is normal. 3 centimeter area of narrowing involves the hepatic flexure colon. No evidence of diverticulitis. Postsurgical changes involve the spine. Small hiatal hernia IMPRESSION: 3 centimeter area of narrowing involving the hepatic flexure colon may be secondary to a mass. Colonoscopy is recommended EGD: Small hiatal hernia Mild gastritis with specks of heme in the body and the antrum of the stomach status post biopsies Recommendations await biopsy report. Continue acid suppression therapy Colonoscopy: 3 mm sessile polyp in the rectum; polypectomy was performed with cold forceps Spasm of the colon at the hepatic flexure Few small diverticula throughout the entire colon Small internal hemorrhoids Intubation to terminal ileum Recommendation avoid NSAIDs over 2 weeks. Recheck colonoscopy in 3 years. Medical Problem List: Nausea, vomiting likely secondary to mild gastritis with small hiatal hernia with colonoscopy showing no evidence of mass CAD with prior CABG x2 vessel with recent heart catheterization showing patent GONZALES to LAD, patent vein graft to RCA, normal circumflex. Negative stress test November 2020. Echocardiogram showing mild diastolic CHF Bipolar disorder Cirrhosis Paroxysmal atrial fibrillation Hyperlipidemia Brief History of Present Illness: 60-year-old male presented with nausea, vomiting. Patient also reported some epigastric pain and chest pain. Patient was admitted for further evaluation and treatment. Hospital Course: Patient presented with nausea, vomiting and epigastric pain. There was some question of chest pain as well. Patient was admitted for further evaluation. She with multiple medical problems including CAD with prior CABG x2 vessel, CHF, bipolar disorder, cirrhosis, paroxysmal atrial fibrillation, hyperlipidemia and chronic pain. Patient required consultation with GI and cardiology. Initial CT scan showed possible mass in the right hepatic flexure. Colonoscopy was performed. No evidence of mass identified. GI was able to view terminal ileum. Small polyp removed from the rectal area. Mild diverticuli noted. Otherwise unremarkable. EGD was also performed showing mild gastritis with small hiatal hernia. No evidence of severe bleeding noted. GI recommended repeat colonoscopy in 3 years. Biopsies performed from EGD pending at discharge. GI recommended to continue acid suppression therapy. Cardiology recommended no further intervention at this time as prior stress test done November 2020 was unremarkable. Echocardiogram at that time showed mild diastolic CHF. Patient left AGAINST MEDICAL ADVICE as he was unhappy with pain management. Patient had been transitioned to oral medication. No need for IV antibiotic therapy was identified. Patient was able to tolerate diet. Patient with history of chronic pain. At discharge will recommend patient to continue Protonix 40 mg daily. Patient will continue with his home medications. Recommend follow-up with chronic pain management to further address his chronic pain. Vital Signs/Physical Exam: Temp Pulse Resp BP Pulse Ox 98.3 F 76 17 171/91 H 99 02/18/21 08:00 02/18/21 08:00 02/18/21 12:16 02/18/21 08:00 02/18/21 12:16 General: Alert, In no apparent distress HEENT: Atraumatic Neck: Supple Respiratory: Clear to auscultation bilaterally, Normal air movement Cardiovascular: Normal pulses, Regular rate/rhythm Gastrointestinal: Normal bowel sounds, No tenderness, No masses, No rebound, No guarding Neurological: Normal speech, Normal strength at 5/5 x4 extr, Normal tone, Normal affect Laboratory Data at Discharge: WBC 12.40 K/uL (4.3-10.9) H D 02/17/21 05:15 Hgb 13.3 g/dL (13.6-17.9) L 02/17/21 05:15 Hct 40.2 % (39.6-49.0) 02/17/21 05:15 Plt Count 351 K/uL (152-406) 02/17/21 05:15 PT 14.3 SECONDS (9.5-12.5) H 02/17/21 05:15 INR 1.24 02/17/21 05:15 APTT 31.6 SECONDS (24.3-36.9) 02/17/21 05:15 Sodium 140 mmol/L (136-145) 02/18/21 06:45 Potassium 3.5 mmol/L (3.5-5.1) 02/18/21 06:45 BUN 11 mg/dL (7-18) 02/18/21 06:45 Creatinine 1.02 mg/dL (0.55-1.3) 02/18/21 06:45 Glucose 93 mg/dL (74-106) 02/18/21 06:45 Phosphorus 3.0 mg/dL (2.5-4.9) 02/17/21 05:15 Magnesium 3.0 mg/dL (1.8-2.4) H D 02/17/21 05:15 Total Bilirubin 0.4 mg/dL (0.2-1.0) 02/17/21 05:15 AST 54 U/L (15-37) H 02/17/21 05:15 ALT 34 U/L (12-78) 02/17/21 05:15 Alkaline Phosphatase 69 U/L (45-117) 02/17/21 05:15 Troponin I < 0.02 ng/mL (0.0-0.045) 02/16/21 11:34 Lipase 343 U/L (73-393) 02/16/21 11:34 Home Medications: Atorvastatin Calcium [Lipitor] 40 mg PO DAILY 12/18/20 Clonidine HCl [Catapres*] 0.2 mg PO Q6HP PRN 12/18/20 Gabapentin 600 mg PO BEDTIME 12/18/20 ALPRAZolam [Xanax*] 0.25 mg PO TID PRN #30 tab 12/19/20 Amitriptyline [Elavil*] 25 mg PO BEDTIME 12/19/20 Hydrocodone Bit/Acetaminophen [[place] 10-325 Tablet] 1 each PO Q6HP PRN #30 tablet 12/19/20 Pantoprazole [Protonix Tab] 40 mg PO DAILY #30 tab 02/18/21 New Medications: Pantoprazole [Protonix Tab] 40 mg PO DAILY #30 tab Physician Discharge Instructions: Patient presented with nausea, vomiting and epigastric pain. There was some question of chest pain as well. Patient was admitted for further evaluation. She with multiple medical problems including CAD with prior CABG x2 vessel, CHF, bipolar disorder, cirrhosis, paroxysmal atrial fibrillation, hyperlipidemia and chronic pain. Patient required consultation with GI and cardiology. Initial CT scan showed possible mass in the right hepatic flexure. Colonoscopy was performed. No evidence of mass identified. GI was able to view terminal ileum. Small polyp removed from the rectal area. Mild diverticuli noted. Otherwise unremarkable. EGD was also performed showing mild gastritis with small hiatal hernia. No evidence of severe bleeding noted. GI recommended repeat colonoscopy in 3 years. Biopsies performed from EGD pending at discharge. GI recommended to continue acid suppression therapy. Cardiology recommended no further intervention at this time as prior stress test done November 2020 was unremarkable. Echocardiogram at that time showed mild diastolic CHF. Patient left AGAINST MEDICAL ADVICE as he was unhappy with pain management. Patient had been transitioned to oral medication. No need for IV antibiotic therapy was identified. Patient was able to tolerate diet. Patient with history of chronic pain. At discharge will recommend patient to continue Protonix 40 mg daily. Patient will continue with his home medications. Recommend follow-up with chronic pain management to further address his chronic pain. Diet: AHA Activity: Ad nas Followup: Allison Heard DO [Primary Care Provider] - Time spent managing pt's care (in minutes): 55
[2021-02-18 12:38] VITALS: BP 172/85; TEMP 98.2
== END 2021-02-18 12:45 | disposition left against medical advice (07) | DRG 392 ==
LOC: ER 10:13 → ERHOLD 17:32 → 2ND 19:57
PROVIDERS: ADMIT Hospitalist; ATTEND Family Medicine
PROC: 0DBP8ZX Excision of Rectum, Via Natural or Artificial Opening Endoscopic, Diagnostic (ICD-10-PCS; principal; 2021-02-17 11:45)
PROC: 0DB78ZX Excision of Stomach, Pylorus, Via Natural or Artificial Opening Endoscopic, Diagnostic (ICD-10-PCS; 2021-02-17 11:45)
DX: K29.70 Gastritis, unspecified, without bleeding (principal); I13.0 Hypertensive heart and chronic kidney disease with heart failure and stage 1 through stage 4 chronic kidney disease, or unspecified chronic kidney disease; I50.32 Chronic diastolic (congestive) heart failure; N18.30 Chronic kidney disease, stage 3 unspecified; I25.10 Atherosclerotic heart disease of native coronary artery without angina pectoris; K57.50 Diverticulosis of both small and large intestine without perforation or abscess without bleeding; K64.8 Other hemorrhoids; K58.9 Irritable bowel syndrome, unspecified; J44.9 Chronic obstructive pulmonary disease, unspecified; G89.29 Other chronic pain; M54.9 Dorsalgia, unspecified; I48.0 Paroxysmal atrial fibrillation; E78.5 Hyperlipidemia, unspecified; F31.9 Bipolar disorder, unspecified; K74.60 Unspecified cirrhosis of liver; K44.9 Diaphragmatic hernia without obstruction or gangrene; K62.1 Rectal polyp; R07.9 Chest pain, unspecified; Z88.5 Allergy status to narcotic agent; Z88.0 Allergy status to penicillin; Z79.82 Long term (current) use of aspirin; Z79.02 Long term (current) use of antithrombotics/antiplatelets; Z95.1 Presence of aortocoronary bypass graft; Z79.899 Other long term (current) drug therapy; Z90.49 Acquired absence of other specified parts of digestive tract; Z87.891 Personal history of nicotine dependence; Z79.01 Long term (current) use of anticoagulants; Z20.822 Contact with and (suspected) exposure to COVID-19
CPT/HCPCS: 36415; 74176; 80048; 80053; 80076; 83605; 83690; 83735; 84100; 84132; 84484; 85025; 85610; 85730; 88305; 88312; 93005; 99285; C9113; J0360; J0690; J1170; J1650; J2175; J2405; J2550; J2704; J2765; J3480; J7030; J7120; U0003

== ENCOUNTER 2021-02-19 19:34 | Emergency (ER) | payer OTHER ==
--- OUTSIDE RECORDS SUMMARY | 2021-02-19 19:40 | XMS REPORT | Continuity of Care Document ---
:1960 Author Organization [facility] t Address [address] [place] [address] Care Team Providers Name Role Phone Asked, [...] Expiration Date Sour ce Number UHC MEDICAREUHC [id number] 2020 [place] DUAL COMPLETE 00:00:00 [facility] MHBgosxm72096/10/26 021-PresentHMO [facility] [id number] [facility] - - MEDICARE MGD 00:00:00 Medical Ce nter CAREUNITED MEDICARE RUMtewuw99824/10/26 016-Present Problems Condition Condition Condition Status Onset Resolution Last Treating Co mments Source Name Details Category Date Date Treatment Clinician Date Hypertensi Hypertensi Disease Active [facility]20 [facility] - emergency emergency 00:00: [facility] 00 [place] Acute Acute Disease Active [facility] kidney kidney 7-20 [facility] - injury injury 00:00: Medical 00 [place] Diarrhea Diarrhea Disease Active [facility] - 00:[facility]: Medical 00 [place] Transamini Transamini Disease Active [facility] tis tis 7-20 [facility] - 00:00: Medical 00 [place] Hepatitis Hepatitis Disease Active [facility] C virus C virus 7-20 [facility] - infection infection 00:00: [facility] without without 00 [place] hepatic hepatic coma coma Chest pain Chest pain Disease Active [facility] - 00:00: Medical 00 [place] Syncope Syncope Disease Active [facility]16 [facility] - 00:00: Medical 00 [place] Paroxysmal Paroxysmal Disease Active [facility] [...] [facility] ins 1-08 Clear 00:00: [facility] codeine DA Active SV 2020- [facility] 1-08 Clear 00:00: Pink 00 [facility] Cephalos Propensi Active Nausea And CH I [...] Adverse Active rash [facility] in Reaction [facility] ent Clinics Cephalos Adverse Active vomiting [facility] t porins Reaction [facility] ent Clinics Social History Social Habit Start Date Stop Date Quantity Comments Source Tobacco use and 2019-06-14 2019-06-[address] Abigail kes - exposure 00:00:00 00:00:00 [facility] Center History of 2018-05-[address] [facility] - tobacco use 00:00:00 [facility] Sex Assigned At [birth year] [facility] ethodist 00:00:00 00:00:00 Smoking Status Start Date Stop Date Source Former smoker 2019-06-14 00:00:00 2019-06-14 00:00:[address] [facility] [address] [facility] Medications Ordered Filled Start Stop Current Ordering Indication Dosage Frequency Signature Comments Components Source Medication Medication Date Date Medication? Clinician (SIG) Name Name Buddy Jaimeecasper Yes Na Heard as needed [facility] 3[facility]19 for nausea [facility] - 00:00: Memoria 00 [facility] ent [facility] amitriptyli Yes 50mg QD Take [address] ne (ELAVIL) 8-22 by mouth Luke s - 50 MG 14:22: nightly. Medical tablet 42 [place] DULoxetine Yes 60mg QD Take [address] (CYMBALTA) 8-22 by mouth [facility] - 60 MG 14:22: daily. Medical capsule 42 [place] vitamin E Yes 200U QD Take [address] 200 UNIT 8-22 Units by [facility] - capsule 14:22: mouth Medical 42 daily. [place] lithium 300 Yes 300mg QD Take 300 [...] [facility] - (DULERA) 14:22: mouth via Medi dustni 100-5 42 inhaler 2 Center mcg/actuati (two) on inhaler times daily. HYDROcodone 2018- Yes 1{tbl} Take [address] [...] mcg/actuati (two) on inhaler times daily. clopidogrel 2018- 2020- No 75mg QD Take [address] (PLAVIX) 75 8-22 08-21 tablet (75 L ukes - mg tablet 00:00: 23:59 mg total) Me dical 00 :00 by mouth Center daily. Albuterol Albuterol 2018- Yes Na [facility]ard inhale [address] [facility] Sulfate Sulfate 5-14 vial by [facility] - 00:00: mouth via Memoria 00 nebulizer l 3 times a [facility] day ent Clinics Ipratropium Ipratropium 2018- Yes Na [facility]ard as [facility] [place] [place] [facility]14 directed [facility] - 00:00: Memoria 00 l [facility] ent Clinics Amlodipine Amlodipine 2017-10 Yes Na Heard [address] Besylate Besylate 0-29 [facility] - 00:00: Memoria 00 l [facility] ent Clinics aspirin 81 Yes 81mg QD Take 1 [...] hours or as directed by . famotidine 2017- Yes 20mg Take 1 [facility] [...] simvastati n for cholestero l. Clonidine Clonidine 2018-0 Yes Na [place] [address] HCl HCl 6-27 twice x 1 [facility] - 00:00: week then Memoria 00 1 tablet l [facility] ent Clinics carvedilol Yes 25mg Take 1 [facility] (COREG) 25 4-05 tablet (25 Kofi es - MG tablet 00:00: mg total) Med ical 00 by mouth 2 Center (two) times daily with breakfast and dinner. Amitriptyli Amitriptyli Yes Na [facility]ard [address] ne HCl ne HCl [facility] - [facility] l [facility] ent Clinics Dulera Dulera Yes Na Heard 2 puffs [facility] ent Clinics Amiodarone Amiodarone Yes Na [place]ard [address] HCl HCl [facility] - [facility]ics - Yes Na Heard [address] [facility] Clinics Isosorbide Isosorbide Yes Na Heard [address] Mononitrate Mononitrate in the [facility] - ER ER morning Memoria l [facility] ent [facility]ics [place] Yes Na Heard [address] Carbonate Carbonate at bedtime [facility] Atorvastati Atorvastati Yes Na Heard [address] n Calcium n Calcium [facility] Losartan Losartan Yes Na Heard [address] Potassium Potassium [facility] Gabapentin Gabapentin Yes Na Heard [address] [facility] Carvedilol Carvedilol Yes Na Heard as [facility] directed [facility] HydrALAZINE HydrALAZINE Yes Na Heard [address] HCl HCl with food [facility] Citalopram Citalopram Yes Na Heard [address] Hydrobromid Hydrobromid L ukes - e e Memoria l [facility]ics Lorazepam Lorazepam Yes Na Heard [address] as needed [facility] Bronson Bronson Yes Na Heard [address] as needed [facility]ics Hydrochloro Hydrochloro Yes Na Heard [address] thiazide thiazide in the [facility] - morning [facility] l Outpati ent Clinics Ranolazine Ranolazine Yes Na Heard [address] ER ER [facility] Lisinopril Lisinopril Yes Na Heard [address] Lactulose Lactulose Yes Na Heard [address] [facility] [place] Yes Na Heard TAKE [address] Carbonate Carbonate CAPSULE BY [facility] - MOUTH Memoria DAILY AT l BEDTIME [facility] Procedures Procedure Date / Time Performed Performing Clinician [facility] e CT CHEST EXTERNAL 2020-09-14 14:51:[address] HEAD EXTERNAL STUDY 2020-09-14 14:46:[address] SPINE EXTERNAL 2020-09-14 14:46:00 Aashish Knott STUDY XR SPINE EXTERNAL 2020-08-12 14:53:00 Aashish Knott STUDY XR SPINE EXTERNAL 2020-07-12 09:07:00 Aashish Knott STUDY SARS-COV2/RT-PCR ([facility] 2020-05-19 20:30:00 [facility] Plan of Care Planned Activity Planned Date Details Comments Source Future Scheduled 2022-06-[address] [facility] - Test 00:00:00 (procedure) [code = [facility] [id number]] Future Scheduled 2021-05-25 INFLUENZA VACCINE [place] [facility] Test 00:00:00 [code = INFLUENZA VACCINE] Future Scheduled 2020-10-[address] [facility] - Test 00:00:00 (12+) [code = [facility] DEPRESSION SCREENING (12+)] Future [...] Future Scheduled 2008 COLONOSCOPY SCREENING [place] [facility] Test 00:00:00 [code = COLONOSCOPY SCREENING] Future Scheduled 2008 SHINGLES VACCINES (#1) [place] [facility] Test 00:00:00 [code = SHINGLES VACCINES (#1)] Future Scheduled 2008 SHINGLES VACCINES ([address] [facility] - Test 00:00:00 of 2) [code = SHINGLES Medic al Center VACCINES (1 of 2)] Future Scheduled 1977 DTAP/TDAP/TD VACCINES [facility] Test 00:00:00 (1 - Tdap) [code = Medical C enter DTAP/TDAP/TD VACCINES (1 - Tdap)] Future Scheduled 1974 COVID-19 VACCINE (1) [place] [facility] Test 00:00:00 [code = COVID-19 VACCINE (1)] Future Scheduled [address] [facility] - Test 00:00:00 0-64 YRS (1 of 1 - Medical C enter PPSV23) [code = PNEUMOCOCCAL VACCINE 0-64 YRS (1 of 1 - PPSV23)] Future Scheduled [address] [facility] K[facility]i es - Test 00:00:00 malignant neoplasm of Medica l Center colon (procedure) [code = 312534855] Encounters Start End Encounter Admission Attending Care Care Encounter Source Date/Time Date/Time Type Type Clinicians Facility Department ID 2021-02-10 2021-02-10 Outpatient [facility] [id number] [facility] 2021-02-10 2021-02-10 Outpatient [facility] [id number] [facility] 2021-02-05 2021-02-05 Outpatient [facility] [id number] [facility] 2021-02-04 2021-02-04 Outpatient [facility] [id number] [facility] 2021-01-31 2021-01-31 Outpatient [facility] [id number] [facility] 2021-01-01 2021-01-01 Outpatient [facility] [id number] [facility] 00[facility] 2020-12-25 2020-12-25 Outpatient [facility] [id number] [facility] 2020-12-03 2020-12-03 Outpatient CHRISTOPHER, [facility] [id number] [place] 00:00:00 00:00:00 RYLEY [address] 2020-11-19 2020-11-19 Outpatient [facility] [id number] [place] 00:00:00 00:00:[address] 2020-11-19 2020-11-19 Outpatient [facility] [id number] [place] 00:00:00 00:00:[address] 2020-11-19 2020-11-19 Outpatient [facility] [id number] [place] 00:00:00 00:00:[address] 2020-11-19 2020-11-19 Outpatient [facility] [id number] [place] 00:00:00 00:00:[address] 2020-11-19 2020-11-19 Outpatient [facility] [id number] [place] 00:00:00 00:00:[address] 2020-11-19 2020-11-19 Outpatient [facility] [id number] [place] 00:00:00 00:00:[address] 2020-11-19 2020-11-19 Outpatient [facility] [id number] [place] 00:00:00 00:00:[address] 2020-11-19 2020-11-19 Outpatient [facility] [id number] [place] 00:00:00 00:00:[address] 2020-11-19 2020-11-19 Outpatient [facility] [id number] [place] 00:00:00 00:00:[address] 2020-11-07 2020-11-07 Outpatient [facility] [id number] [facility] 2020-08-12 2020-08-12 Outpatient [facility] [id number] [facility] 2020-08-08 2020-08-08 Outpatient [facility] [id number] [facility] 2020-07-22 2020-07-22 Transition Jackie Lopez [id number] 00:00:00 00:00:00 of Care Mirella Castro [id number] [id number] 2020-07-18 2020-07-20 [facility] Darren Vasquezrick [place] [id number]. [id number] 22:50:00 13:00:00 Encounter Moshe Melgar [id number] [id number] 2020-07-18 2020-07-18 Emergency HdzMejia campos RUST [id number] 17:31:00 21:56:00 Osmin Clemons [id number] [place] [id number] [place] [id number] 2020-06-25 2020-06-25 [facility] [id number] 11:20:00 11:20:00 t INPHI s - Drive [facility] 2020-05-03 2020-05-03 [facility] [id number] 14:25:00 14:25:00 t INPHI s - Drive [facility] Medicine Outpati ent Clinics 2020-02-12 2020-02-12 [facility] [id number] 11:15:00 11:15:00 t INPHI s - Drive [facility] Medicine Outpati ent Clinics 2020-01-26 2020-01-26 [facility] [id number] 11:20:00 11:20:00 [place] [employer] s - Drive [facility] Medicine l Medicine Outpati ent Clinics 2020-01-11 2020-01-11 [facility] [id number] 15:32:00 15:32:00 t [place] [employer] s - Drive [facility] Medicine l Medicine Outpati ent Clinics 2020-01-03 2020-01-03 [facility] [id number] 09:20:00 09:20:00 t [place] [employer] s - Drive [facility] Medicine l Medicine Outpati ent Clinics 2020-01-02 2020-01-02 Outpatient MHBL MHBL [id number] [facility]BL 09:54:00 09:54:00 2019-11-13 2019-11-13 [facility] [id number] 14:13:00 14:13:00 t Specialty/U Abigail kes - Specialty rology [facility] /Urology Clinic l Clinic Outpati ent Clinics 2019-11-01 2019-11-01 [facility] [id number] 09:20:00 09:20:00 t INPHI s - Drive [facility] Medicine l Medicine Outpati ent Clinics 2019-10-27 2019-10-27 Outpatient MHSE MHSE [id number] MH 08:50:00 08:50:[address] [facility] 2019-09-05 2019-09-05 [facility] [id number] 09:29:00 09:29:00 t INPHI s - [employer] [facility] Medicine l Medicine Outpati ent Clinics 2019-05-31 2019-05-31 [facility] [id number] 12:00:00 12:00:00 t [place] [employer] s - Drive [facility] Medicine l Medicine Outpati ent Clinics 2019-05-30 2019-05-30 [facility] [id number] 15:00:00 15:00:00 t [place] [employer] s - Drive [facility] Medicine l Medicine Outpati ent Clinics 2019-04-26 2019-04-26 [facility] [id number] 15:09:00 15:09:00 t [place] [employer] s - Drive [facility] Medicine Outpati ent Clinics 2019-03-30 2019-03-30 [facility] [id number] 15:40:00 15:40:00 [place] [employer] [place] - Drive [facility] Medicine l Medicine Outpati ent Clinics 2019-02-23 2019-02-23 Outpatient E MHSE MED [id number] 15:40:00 15:40:00 [facility] 2019-01-10 2019-01-10 [facility] [id number] 08:41:00 08:41:00 t [place] [employer] s - Drive [facility] Medicine l Medicine Outpati ent Clinics 2018-12-12 2018-12-12 [facility] [id number] 08:15:00 08:15:00 t [place] [employer] s - Drive [facility] Medicine l Medicine Outpati ent Clinics 2018-07-27 2018-07-27 [facility] [id number] 15:15:00 15:15:00 t [place] [employer] s - Drive [facility] Medicine l Medicine Outpati ent Clinics 2018-06-09 2018-06-09 [facility] [id number] 08:00:00 08:00:00 t [place] [employer] s - [employer] [facility] Medicine l Medicine Outpati ent Clinics 2018-05-31 2018-05-31 [facility] [id number] 09:00:00 09:00:00 t [place] [employer] s - [employer] [facility] Medicine l Medicine Outpati ent Clinics 2018-04-20 2018-04-20 [facility] [id number] 09:45:00 09:45:00 t [place] [employer] s - Drive [facility] Medicine l Medicine Outpati ent Clinics 2018-04-15 2018-04-15 [facility] [id number] 15:26:00 15:26:00 t [place] [employer] s - Drive [facility] Medicine l Medicine Outpati ent Clinics 2018-03-15 2018-03-15 [facility] [id number] 15:15:00 15:15:00 t [place] [employer] s - Drive [facility] l Medicine Outpati ent Clinics 2018-02-28 2018-02-28 Outpatient Nelson Palomares [id number] 09:15:00 09:15:00 [facility] Medicine [facility] Results Test Description Test Time Test Comments Results Result Sourc e Comments XR Spine External 2020-11-19 This exam was not [place] Study 14:10:51 acquired at a [facility] facility and has not been interpreted by a [facility]an Provider. The exam was imported into our imaging system. CT Chest External 2020-11-19 This exam was not [place] Study 14:00:27 acquired at a [facility] facility and has not been interpreted by a Lutheran Provider. The exam was imported into our imaging system. CT Spine External 2020-11-19 This exam was not [place] Study 13:56:35 acquired at a [facility] facility and has not been interpreted by a Lutheran Provider. The exam was imported into our imaging system. CT Head External 2020-11-19 This exam was not [facility] Study 13:54:19 acquired at a [facility] facility and has not been interpreted by a Lutheran Provider. The exam was imported into our imaging system. SARS-CoV2/RT-PCR ([facility]) 2020-05-20 09:54:00 Test Item Value Reference Range Interpretation Comme nts SARS-COV2/RT-PCR (test code = Negative Not Detected, 29191-3) Negative, See external report for linked test SARS-COV-2 PERFORMING LAB [facility] [place] (test code = 93041-9) JENNIFER (test code = JENNIFER) Negative result [...] of the Act. Fact Sheet for Healthcare Providers:https://www.[employer]/sites/default/files/produ ct/documents/Fact_Sheet_HC_Pr zyuxaxe_Fpjs_DWOP-CwJ-6.pdf Fact Sheet for Healthcare Patients:https://www.Mocavo /sites/default/files/produc t/documents/Fact_Sheet_Patien pu_Pewp_IWSL-LfQ-2.pdf Performing Laboratory:[place] [address] [address]ARS-COV2/RT-PCR ([facility])2020-05-20 09:54:00 Test Item Value Reference Range Interpretation Comments SARS-COV2/RT-PCR (test Negative Not Detected, Negative, code = 0742646) See external report for linked test SARS-COV-2 PERFORMING LAB [facility] [place] (test code = 4556170) Negative result for this test determines that [...] 564(g) of the Act.Fact Sheet for Healthcare Providers:https://www.Merlin/sites/default/files/product/documents/Fact_Shee t_PZ_Tefqlgxji_Xdbf_TPTD-QwW-5.pdfFact Sheet for Healthcare Patients:https://www.[employer]/sites/default/files/product/ documents/Omiu_Wmuel_Pfjnapty_Tcjy_SLQX-ChY-0.pdfPerforming Laboratory:[facility].[place], [place] [address]JR[facility]U METABOLIC PANEL 2019-11-04 06:36:00 Test Item Value [...] CA) 8.9 MG/DL 8.5-10.1 N CBC W/AUTO [id number] 06:32:00 Test Item Value Reference Range Interpretation [...] = NO DIFF/SCN CRITERIA MDIFF) COMPREHENSIVE METABOLIC [id number] 06:08:00 Test Item Value Reference Range Interpretation [...] TOTAL (test code = ALKP) CBC W/AUTO [id number] 05:52:00 Test Item Value Reference Range Interpretation [...] concentrations <2 ng/mL are obtai brandon. LACTIC [id number] 16:03:00 Test Item Value Reference Range Interpretation Comments LACTIC ACID (test code = LACT) 1.0 mmol/L 0.4-2.0 N - XR CHEST 1 [id number] 15:59:00 Name: ALHAJI FARAH [facility] : 1960 Age/S: 58 / M [id number] Unit #: [id number] Loc: [place] [address] Phys: Jac Leal MD Acct: [id number] Dis Date: Status: ADM IN PHONE #: [phone] Exam Date: 11/02/2019 1556 FAX #: Reason: Fever EXAMS: CPT: [id number] XR CHEST 1 V 65867 Fluoro Time: DAP (Gy m2): Air Kerma [...] PAGE 1 Signed Report Name: ALHAJI FARAH [place] : 1960 Age/S: 58 / M [id number] Unit #: [id number] Loc: [place] [address] Phys: Jac Leal MD Acct: [id number] Dis Date: Status: ADM IN PHONE #: [phone] Exam Date: 11/02/2019 1556 FAX #: Reason: Fever EXAMS: CPT: [id number] XR CHEST 1 V 77679 Fluoro Time: DAP (Gy m2): Air Kerma (mGy): <Continued> Technologist: Sabine Cross RT(R)(CT) Trnscb Date/Time: 11/02/2019 (7410) [email or web address] Orig Print D/T: S: 11/02/2019 (4960) PAGE 2 Signed [id number] 04:22:00 Test Item Value Reference Range Interpretation [...] yby method. Completed by Nursing: NOBASIC METABOLIC [id number] 04:19:00 Test Item Value Reference Range Interpretation [...] CA) 8.1 MG/DL 8.5-10.1 L CBC W/AUTO [id number] 04:08:00 Test Item Value Reference Range Interpretation [...] = NO DIFF/SCN CRITERIA MDIFF) - CTA [id number] 22:57:00 Name: ALHAJI FARAH [facility] : 1960 Age/S: 58 / M [id number] Unit #: [id number] Loc: [place] [address] Phys: Jac Leal MD Acct: [id number] Dis Date: Status: ADM IN PHONE #: [phone] Exam Date: 11/01/2019 0931 FAX #: Reason: Chest PAIN EXAMS: CPT: [id number] CTA CHEST 19834 Examination: CTA chest, PE protocol Indication: Chest [...] FARAH : 1960 Age/S: 58 / M [id number] Unit #: [id number] Loc: [place] [address] Phys: Jac Leal MD Acct: [id number] Dis Date: Status: ADM IN PHONE #: [phone] Exam Date: 11/01/2019 1622 FAX #: Reason: Chest PAIN EXAMS: CPT: [id number] CTA CHEST 14166 <Continued> No suspicious or destructive osseous lesions. [...] (225) t.[email or web address].SR31 Orig Print D/T: S: 11/01/2019 (3737) PAGE 2 Signed ReportGLYCOSYLATED HEMOGLOBIN [id number] 17:41:00 Test Item Value Reference Range Interpretation Comments GLYCOSYLATED HEMOGLOBIN (HA1C) 6.3 % A1C 4.2-6.3 N (test code = GLYHGB) ESTIMATED AVERAGE GLUCOSE (test 134 MG/DLest code = EAG) COMPREHENSIVE METABOLIC [id number] 17:40:00 Test Item Value Reference Range Interpretation [...] = LDL/HDL) 2.94 Ratio 1.48-3.22 Avg N [id number] 17:40:00 Test Item Value Reference Range Interpretation Comments PHOSPHOROUS (test code = PHOS) 3.5 MG/DL 2.5-4.9 N RULE OUT DE [id number] 17:40:00 Test Item Value Reference Range Interpretation [...] nume rical results may roma yby method. [id number] 17:40:00 Test Item Value Reference Range Interpretation Comments MAGNESIUM (test code = MAG) 2.5 MG/DL 1.8-2.4 H TROPONIN I [id number] 15:24:00 Test Item Value Reference Range Interpretation Comments TROPONIN I RAPID 0.04 ng/mL 0.00-0.08 N - The use o f serial (test code = sampling and te sting TROPIRAP) protocol is a recommended pra ctice- An elevated tro ponin level alone is often not sufficient for diagnosis of my ocardial infarction. BASIC METABOLIC [id number] 13:39:00 Test Item Value Reference Range Interpretation [...] 133 Unit/L 26-192 N CK) TROPONIN I [id number] 11:56:00 Test Item Value Reference Range Interpretation Comments TROPONIN I RAPID 0.04 ng/mL 0.00-0.08 N - The use o f serial (test code = sampling and te sting TROPIRAP) protocol is a recommended pra ctice- An elevated tro ponin level alone is often not sufficient for diagnosis of my ocardial infarction. - XR CHEST 1 [id number] 11:53:00 [facility] 1960 Age/S: 58 / M [id number] Unit #: [id number] Loc: [place] [address] Phys: Darell Medrano MD Acct: [id number] Dis Date: Status: PRE ER PHONE #: [phone] Exam Date: 11/01/2019 1146 FAX #: Reason: chest pain EXAMS: CPT: [id number] XR CHEST 1 V 36558 Fluoro Time: DAP (Gy m2): Air Kerma [...] PAGE 1 Signed Report Name: ALHAJI FARAH [facility] :1960 Age/S: 58 / M [id number] Unit #: [id number] Loc: [place] [address] Phys: Darell Medrano MD Acct: [id number] Dis Date: Status: PRE ER PHONE #: [phone] Exam Date: 11/01/2019 1145 FAX #: Reason: chest pain EXAMS: CPT: [id number] XR CHEST 1 V 66565 Fluoro Time: DAP (Gy m2): Air Kerma (mGy): <Continued> Technologist:RT Taina(R)(MR) Trnscb Date/Time: 11/01/2019 (2537) [id number] Orig Print D/T: S: 11/01/2019 (6830) PAGE 2 Signed ReportCBC W/O [id number] 11:50:00 Test Item Value Reference Range Interpretation [...] 11.80 fL 7.0-9.6 H MPV) CHEMISTRY 8 [id number] 11:47:00 Test Item Value Reference Range Interpretation [...] 49-113 N code = GFRBED) CHEMISTRY 8 [id number] 11:47:00 Test Item Value Reference Range Interpretation [...] 49-113 N (test code = GFRBED) TISSUE [id number] 10:31:00Surgical Pathology Report Case: [id number] Authorizing Provider: Caleb Dawn Collected: 06/14/2019 Bhavna Morales MD Ordering Location: [address] Received: 06/15/2019 0756 Service Pathologist: Misty Jackson MD Specimen: Ampulla, Ampulla Bx A. "AMPULLA", BIOPSY: - SQUAMOUS AND FOVEOLAR TYPE MUCOSA WITH MILD CHRONIC INFLAMMATION - NEGATIVE FOR MALIGNANCY (SEE COMMENT) Signing Pathologist Direct Phone Line: [phone] signed by Misty Jackson MD on 06/19/2019 at 10:31 AMThe biopsy shows fragments of squamous and foveolar type mucosa with mild chronic inflammation and cautery. Focal muscle is also seen. No definite small bowel/ biliary lining is seen. The ampulla normally does not have squamous lining. This could be a metaplastic change. Clinical and endoscopic correlation is required.[id number] and postop diagnosis: endoscopic ultrasound with endo, [...] MDReport Verified Date/Time: 06/16/2019 12:50:49 Reading Location: [facility] Radiology Reading Room BLOOD CULTURE 2019-06-16 12:01:00 Test Item Value Reference Range Interpretation Comments CULTURE (BEAKER) (test No growth in 5 days code = 1095) BLOOD [id number] 12:01:00 Test Item Value Reference Range Interpretation Comments CULTURE (BEAKER) (test No growth in 5 days code = 1095) COMPREHENSIVE METABOLIC [id number] 07:08:00 Test Item Value Reference Range Interpretation [...] NOT APPLICABLE FOR DIALYSIS PATIEN TS. BLOOD [id number] 02:00:00 Test Item Value Reference Range Interpretation Comments CULTURE (BEAKER) (test No growth in 5 days code = 1095) BLOOD [id number] 02:00:00 Test Item Value Reference Range Interpretation Comments CULTURE (BEAKER) (test No growth in 5 days code = 1095) BLOOD [id number] 02:00:00 Test Item Value Reference Range Interpretation Comments CULTURE (BEAKER) (test No growth in 5 days code = 1095) COMPREHENSIVE METABOLIC [id number] 04:49:00 Test Item Value Reference Range Interpretation [...] 0-0 CELLS (BEAKER) (test code = 413) [id number] 16:17:00 Test Item Value Reference Range Interpretation Comments ACTIVATED CLOTTING TIME 125 sec TEST ED AT [facility] 67[address] (ARIEL) (test code = [place] [address]) [address] PET, CARDIAC PERFUSION MULTIPLE STUDIES, REST AND [id number] 16:40:00 Reason for exam:->chest pain, evaluate for worsening CAD, s/p CABGFINAL REPORT PROCEDURE: MYOCARDIAL PERFUSION PET IMAGING (Rest/Stress)CPT CODE: 48660 INDICATION: Evaluate acute chest pain/discomfort CARDIOVASCULAR PROFILE:CAD [...] MDReport Verified Date/Time: 06/12/2019 16:40:23 Reading Location: [address] [facility] Reading Room TROPONIN [id number] 02:08:00 Test Item Value Reference Range Interpretation [...] acute neurological disease, and persistent tachyarrhythmia.HEPATIC FUNCTION [id number] 02:02:00 Test Item Value Reference Range Interpretation [...] = 26 U/L 6-55 347) BASIC METABOLIC [id number] 02:02:00 Test Item Value Reference Range Interpretation [...] APPLICABLE FOR DIALYSIS PATIEN TS. VANCOMYCIN LEVEL, [id number] 01:59:00 Test Item Value Reference Range Interpretation [...] WBC 0-0 (BEAKER) (test code = 413) [id number] 07:20:00 Test Item Value Reference Range Interpretation Comments PROCALCITONIN (BEAKER) (test code 0.30 ng/mL <0.05 H = 3036) SEPSIS RISK (ng/mL)Low: 0.05-0.50Intermediate: 0.51-2.00High: >=2.01BASIC METABOLIC [id number] 07:16:00 Test Item Value Reference Range Interpretation [...] APPLICABLE FOR DIALYSIS PATIEN TS. HEPATIC FUNCTION [id number] 07:16:00 Test Item Value Reference Range Interpretation [...] WBC 0-0 (BEAKER) (test code = 413) [id number] 05:55:00 Test Item Value Reference Range Interpretation Comments MAGNESIUM (BEAKER) (test code = 2.1 mg/dL 1.6-2.6 627) LIPID [id number] 05:55:00 Test Item Value Reference Range Interpretation [...] 130-159 High 160-189 Very High >=190HEPATIC FUNCTION [id number] 05:55:00 Test Item Value Reference Range Interpretation [...] = 34 U/L 6-55 347) BASIC METABOLIC [id number] 05:55:00 Test Item Value Reference Range Interpretation [...] PATIEN TS. CBC W/PLT COUNT & AUTO [id number] 05:03:00 Test Item Value Reference Range Interpretation [...] PERCENT (BEAKER) (test code = 2801) TROPONIN [id number] 05:02:00 Test Item Value Reference Range Interpretation [...] acute neurological disease, and persistent tachyarrhythmia.LACTIC ACID, [id number] 04:48:00 Test Item Value Reference Range Interpretation Comments LACTATE BLOOD VENOUS (2) (BEAKER) 1.1 mmol/L 0.5-2.2 (test code = 2872) URINALYSIS W/ REFLEX URINE [id number] 03:25:00 Test Item Value Reference Range Interpretation [...] SOURCE(BEAKER) (test code = 2795) OXYGEN SATURATION, [id number] 03:04:00 Test Item Value Reference Range Interpretation [...] 0.7 mmol/L 0.5-2.2 (test code = 2872) [id number] 23:52:00 Test Item Value Reference Range Interpretation Comments PROCALCITONIN (BEAKER) (test code 0.30 ng/mL <0.05 H = 3036) SEPSIS RISK (ng/mL)Low: 0.05-0.50Intermediate: 0.51-2.00High: >=2.01TROPONIN [id number] 23:40:00 Test Item Value Reference Range Interpretation [...] failure, acidosis, acute neurological disease, and persistent tachyarrhythmia.[id number] 23:34:00 Test Item Value Reference Range Interpretation Comments PHOSPHORUS (BEAKER) (test code = 3.4 mg/dL 2.3-4.7 604) [id number] 23:34:00 Test Item Value Reference Range Interpretation Comments MAGNESIUM (BEAKER) (test code = 2.2 mg/dL 1.6-2.6 627) BASIC METABOLIC [id number] 23:34:00 Test Item Value Reference Range Interpretation [...] APPLICABLE FOR DIALYSIS PATIEN TS. HEPATIC FUNCTION [id number] 23:34:00 Test Item Value Reference Range Interpretation [...] = 42 U/L 6-55 347) COMPREHENSIVE METABOLIC [id number] 23:34:00 Test Item Value Reference Range Interpretation [...] S NOT APPLICABLE FOR DIALYSIS PATIEN TS. [id number] 23:34:00 Test Item Value Reference Range Interpretation Comments LIPASE (BEAKER) (test code = 749) 38 U/L 8-78 [id number] 23:33:00 Test Item Value Reference Range Interpretation Comments PARTIAL THROMBOPLASTIN TIME 27.3 seconds 22.5-36.0 (BEAKER) (test code = 760) [id number] 23:33:00 Test Item Value Reference Range Interpretation Comments FIBRINOGEN LEVEL (BEAKER) (test 300 mg/dl 225-434 code = 658) PROTHROMBIN TIME/[id number] 23:32:00 Test Item Value Reference Range Interpretation [...] mechanical heart valves.CBC W/PLT COUNT & AUTO [id number] 23:22:00 Test Item Value Reference Range Interpretation [...] (BEAKER) (test code = 2801) BLOOD GAS, [id number] 22:27:00 Test Item Value Reference Range Interpretation [...] code = 1819) 21.0 % POCT-LACTIC ACID, [id number] 21:53:00 Test Item Value Reference Range Interpretation Comments POC-LACTIC ACID, 1.6 mmol/L 0.9-1.7 TESTED AT [facility] [address] (BEAKER) (test [place] code = 2805) [address] TROPONIN [id number] 18:59:00 Test Item Value Reference Range Interpretation [...] acute neurological disease, and persistent tachyarrhythmia.HEPATITIS C [id number] 16:55:00 Test Item Value Reference Range Interpretation Comments HEPATITIS C [facility]IBODY [facility] (test Reactive Nonreactive A code = 367) POCT-GLUCOSE [id number] 12:03:00 Test Item Value Reference Range Interpretation Comments POC-GLUCOSE METER 169 mg/dL 70-110 H TESTED AT [place] [address] ([facility]) (test code = [facility] 1538) [address] HEPATITIS B CORE ANTIBODY, [id number] 08:37:00 Test Item Value Reference Range Interpretation Comments HEPATITIS B CORE TOTAL ANTIBODY Reactive Nonreactive A ([facility]) (test code = 497) POCT-GLUCOSE [id number] 08:14:00 Test Item Value Reference Range Interpretation Comments POC-GLUCOSE METER 105 mg/dL 70-110 TESTED AT [place] [address] ([facility]) (test code = [facility] 1538) [address] HEPATIC FUNCTION [id number] 07:10:00 Test Item Value Reference Range Interpretation [...] 67 U/L 6-55 H 347) BASIC METABOLIC [id number] 07:10:00 Test Item Value Reference Range Interpretation [...] FOR DIALYSIS PATIEN TS. HEPATITIS B SURFACE [id number] 06:58:00 Test Item Value Reference Range Interpretation Comments HEPATITIS B SURFACE ANTIBODY < mIU/mL <8.0 (BEAKER) (test code = 647) HEPATITIS B SURFACE [id number] 05:42:00 Test Item Value Reference Range Interpretation Comments HEPATITIS B SURFACE ANTIGEN (2) Nonreactive Nonreactive (BEAKER) (test code = 2585) HEPATITIS B CORE ANTIBODY, [id number] 05:42:00 Test Item Value Reference Range Interpretation Comments HEPATITIS B CORE IGM ANTIBODY Nonreactive Nonreactive (BEAKER) (test code = 645) CBC W/PLT COUNT & AUTO [id number] 04:56:00 Test Item Value Reference Range Interpretation [...] (test code = 2801) U/S, RENAL WITH [id number] 16:28:00Reason for exam:->hypertensionFINAL REPORT INDICATION: 57-year-old inpatient [...] MDReport Verified Date/Time: 05/11/2018 16:28:02 Reading Location: [address] Ultrasound Reading Room U/S, ABDOMINAL, [id number] 16:15:00Abdomen limited area? Add comment if clarification [...] MDReport Verified Date/Time: 05/11/2018 16:15:41 Reading Location: [facility] P006J Ultrasound Reading Room CTA, CHEST, ABDOMEN - PELVIS, FOR [id number] 14:11:00Reason for exam:->Chest painAddendum BeginsREPORT STATUS:A Addendum: I agree with the previously described non vascular findings. Signed: Antionette Hinojosa MDReport Verified Date/Time: 05/11/2018 14:11:09 Reading Location: [facility] P048 Angio Body Reading RoomAddendum EndsFINAL REPORT [...] coronary artery calcification is seen in the council coronary territories. Patient is post coronary artery [...] thoracic aorta. In the abdominal aorta, circumferential dvqz-ev-mxopydht calcific atherosclerosis is seen. Overall, no ectasia [...] An addendum will be dictated by the [employer] Radiologist regarding the nonvascular findings. Signed: Magno Augustin MDReport Verified Date/Time: 05/10/2018 18:58:16 Reading Location: [place] [address] Cardiology MRI CALCIUM, [id number] 05:20:00 Test Item Value Reference Range Interpretation Comments CALCIUM IONIZED (BEAKER) (test 1.16 mmol/L 1.12-1.27 code = 698) PH, BLOOD (BEAKER) (test code = 7.40 1810) [id number] 04:29:00 Test Item Value Reference Range Interpretation Comments PHOSPHORUS (BEAKER) (test code = 3.5 mg/dL 2.3-4.7 604) [id number] 04:29:00 Test Item Value Reference Range Interpretation Comments MAGNESIUM (BEAKER) (test code = 2.4 mg/dL 1.6-2.6 627) COMPREHENSIVE METABOLIC [id number] 04:29:00 Test Item Value Reference Range Interpretation [...] PATIEN TS. CBC W/PLT COUNT & AUTO [id number] 03:58:00 Test Item Value Reference Range Interpretation [...] (BEAKER) (test code = 2801) U/S, RENAL, [id number] 13:00:00Reason for exam:->akiShould this be performed at [...] Verified Date/Time: 05/10/2018 13:00:32 Reading Location: [facility] P006J Ultrasound Reading Room CALCIUM, [id number] 06:58:00 Test Item Value Reference Range Interpretation Comments CALCIUM IONIZED (BEAKER) (test 1.08 mmol/L 1.12-1.27 L code = 698) PH, BLOOD (BEAKER) (test code = 7.35 1810) B-TYPE NATRIURETIC FACTOR (BNP)2018-05-10 05:49:00 Test Item Value Reference Range Interpretation Comments B-TYPE NATRIURETIC PEPTIDE (BEAKER) 153 pg/mL 0-100 H (test code = 700) [id number] 05:47:00 Test Item Value Reference Range Interpretation Comments MAGNESIUM (BEAKER) 2.4 mg/dL 1.6-2.6 Specimen slightly (test code = 627) hemolyzed [id number] 05:47:00 Test Item Value Reference Range Interpretation Comments PHOSPHORUS (BEAKER) 2.7 mg/dL 2.3-4.7 Specimen slightly (test code = 604) hemolyzed COMPREHENSIVE METABOLIC [id number] 05:47:00 Test Item Value Reference Range Interpretation [...] PATIEN TS. CBC W/PLT COUNT & AUTO [id number] 05:31:00 Test Item Value Reference Range Interpretation [...] (BEAKER) (test code = 2801) EOSINOPHIL SMEAR, [id number] 22:19:00 Test Item Value Reference Range Interpretation Comments EOSINOPHIL SMEAR, URINE (BEAKER) No EOS seen No EOS seen (test code = 5611) URINALYSIS W/ [id number] 22:13:00 Test Item Value Reference Range Interpretation [...] SOURCE(BEAKER) (test code = 2795) SODIUM, RANDOM [id number] 21:38:00 Test Item Value Reference Range Interpretation Comments SODIUM URINE (BEAKER) (test code = < meq/L 243) Reference Range: No NormalsPROTEIN, RANDOM [id number] 21:38:00 Test Item Value Reference Range Interpretation Comments PROTEIN, URINE (BEAKER) (test code = 15 mg/dL 0-14 H 1569) CREATININE, RANDOM [id number] 21:38:00 Test Item Value Reference Range Interpretation Comments CREATININE URINE (BEAKER) (test 173.4 mg/dL code = 375) Reference Range: No NormalsRAD, FOOT, 2 VIEWS, [id number] 13:59:00Reason for exam:->Pain and swelling of left foot after fall.FINAL REPORT Two views left foot Discussion: There is hallux valgus with degen erative changes. No visible acute fracture, dislocation, destructive lesion. Soft tissues are unremarkable. Signed: Darrne Ariza Verified Date/Time: 05/09/2018 13:59:01 Reading Location: [address] Consult Reading Room PUL PERF IMAGING, PARTIC, [id number] 12:03:00FINAL REPORT PROCEDURE: V/Q LUNG SCAN CPT CODE: 65382 INDICATION: Acute chest pain, PE suspected, dyspnea, [...] Pimentel MDReport Verified Date/Time: 05/09/2018 12:03:05 ReadingLocation: [facility] [address] [address] [facility] Reading Room FL, ESOPH, SWALLOW FUNCTION, WITH CINE OR [id number] 11:00:00Reason for exam:->chest painFINAL REPORT Esophagram History: [...] Verified Date/Time: 0 05/09/2018 11:00:37 Reading Location: [facility] B1 C013X [facility] Consult Reading Room HEMOGLOBIN [id number] 10:45:00 Test Item Value Reference Range Interpretation Comments HEMOGLOBIN A1C (BEAKER) (test code = 6.3 % 4.3-6.1 H 368) BASIC METABOLIC [id number] 08:43:00 Test Item Value Reference Range Interpretation [...] FOR DIALYSIS PATIEN TS. Re-draw per labLIPID [id number] 08:42:00 Test Item Value Reference Range Interpretation [...] Borderline 130-159 High 160-189 Very High >=190LITHIUM [id number] 08:31:00 Test Item Value Reference Range Interpretation Comments LITHIUM LEVEL (BEAKER) (test code 0.4 mmol/L 0.8-1.2 L = 630) RAPID DRUG SCREEN, [id number] 07:54:00 Test Item Value Reference Range Interpretation [...] situations. Chain of custody not maintained. Some zjkc-eap-vqpkpqf medications, as well as adulterants, may cause inaccurate results. Clinical correlation should be applied. A more comprehensive drug screen or confirmation of a detected drug may be performed upon request. CREATINE KINASE (CK), TOTAL AND [id number] 07:47:00 Test Item Value Reference Range Interpretation Comments CREATINE KINASE TOTAL (BEAKER) 161 U/L 29-200 (test code = 380) CREATINE KINASE-MB (BEAKER) (test 4.9 ng/mL 0.0-6.6 code = 750) CREATINE KINASE-MB INDEX (BEAKER) 3.0 % (test code = 395) CK-MB Reference Range:<6.7 Normal6.7-10.0 Borderline>10.0 AbnormalTROPONIN [id number] 07:47:00 Test Item Value Reference Range Interpretation [...] acute neurological disease, and persistent tachyarrhythmia.BASIC METABOLIC [id number] 04:56:00 Test Item Value Reference Range Interpretation [...] (test code = 413) CT, BRAIN, WITHOUT [id number] 21:00:00FINAL REPORT CT, BRAIN, WITHOUT CONTRAST INDICATION: [...] MDReport Verified Date/Time: 05/08/2018 21:00:20 Reading Location: [address] Reading Room B-TYPE NATRIURETIC FACTOR (BNP)2018-05-08 19:03:00 Test Item Value Reference Range Interpretation Comments B-TYPE NATRIURETIC PEPTIDE (BEAKER) 254 pg/mL 0-100 H (test code = 700) CREATINE KINASE (CK), TOTAL AND [id number] 19:02:00 Test Item Value Reference Range Interpretation Comments CREATINE KINASE TOTAL (BEAKER) 150 U/L 29-200 (test code = 380) CREATINE KINASE-MB (BEAKER) (test 5.5 ng/mL 0.0-6.6 code = 750) CREATINE KINASE-MB INDEX (BEAKER) 3.7 % (test code = 395) CK-MB Reference Range:<6.7 Normal6.7-10.0 Borderline>10.0 AbnormalTROPONIN [id number] 19:02:00 Test Item Value Reference Range Interpretation [...] acute neurological disease, and persistent tachyarrhythmia.BASIC METABOLIC [id number] 18:32:00 Test Item Value Reference Range Interpretation [...] PATIEN TS. CBC W/PLT COUNT & AUTO [id number] 18:28:00 Test Item Value Reference Range Interpretation [...] 0-1 PERCENT (BEAKER) (test code = 2801) [id number] 18:15:00 Test Item Value Reference Range Interpretation Comments PARTIAL THROMBOPLASTIN TIME 30.0 seconds 22.5-36.0 (BEAKER) (test code = 760) Prior to initiating heparinXR Fluoroscopy in Imaging per [id number] 12:25:17 Patient: ALHAJI FARAH Date/Time04/05/2018 11:30 CDTReason [...]
--- NOTE | 2021-02-19 20:36 | RAD REPORT ---
EXAM DESCRIPTION: RAD - Chest Single View - 02/19/2021 8:24 pm CLINICAL HISTORY: CHEST PAIN Chest pain. COMPARISON: Chest Single View dated 12/18/2020; Chest Single View dated 11/27/2020; Chest Single View d ated 09/09/2020; Chest Single View dated 09/04/2020 FINDINGS: Portable technique limits examination quality. The lungs are grossly clear. The heart is normal in size. No displaced fractures. Sternotomy wires pr esent. IMPRESSION: No acute intrathoracic process suspected.
[2021-02-19] MEDS ORDERED: LABETALOL 20 MG/4ML SYRINGE IV ONE ×2 (20:43→21:43)
[2021-02-19] MEDS ORDERED: ONDANSETRON 4 MG/2 ML VIAL ONE (20:43)
[2021-02-19] MEDS ORDERED: MORPHINE 4 MG/ML SYR ONE (20:43)
[2021-02-19 20:55] LABS: Basophils % 0.7 % (0-1.3); Hematocrit 43.3 % (39.6-49.0); Lymphocytes % 20.7 % (15.3-44.8); MPV 9.4 fL (7.6-11.3); Protime INR 1.1; RBC Red Blood Cell Count 4.75 M/uL (4.33-5.43)
[2021-02-19 21:10] LABS: ALT/SGPT 21 U/L (12-78); AST/SGOT 18 U/L (15-37); Albumin 4.3 g/dL (3.4-5.0); Alkaline Phosphatase 62 U/L (45-117); BUN Blood Urea Nitrogen 14 mg/dL (7-18); Bicarbonate 23 mmol/L (21-32); Bilirubin Direct 0.2 mg/dL (0-0.2); Bilirubin Total 0.5 mg/dL (0.2-1.0); Glucose Level 124 mg/dL (74-106); Lipase 230 U/L (73-393); Magnesium 2.5 mg/dL (1.8-2.4); NT PRO-BNP 4160 pg/mL (<125); Potassium 3.4 mmol/L (3.5-5.1); Protein, Total 9.2 g/dL (6.4-8.2); Sodium Level 137 mmol/L (136-145); Troponin (Emerg Dept Use Only) < 0.02 ng/mL (0.0-0.045)
--- NOTE | 2021-02-19 23:23 | EDPHYS ---
Physician Documentation [facility] Name: Blayne Macias Age: 60 yrs Sex: Male : 1960 Arrival Date: 02/19/2021 Time: 19:36 Bed 4 Private MD: ED Physician Rohit Ortega HPI: 02/19 20:38 This 60 yrs old Male presents to ER via EMS with complaints of Chest Pain. pkl 20:38 The patient or guardian reports chest pain that is located primarily in the substernal pkl area. Onset: today. The pain does not radiate. Associated signs and symptoms: Pertinent positives: abdominal pain. The chest pain is described as dull. The patient has experienced similar episodes in the past, several times. The patient has been recently been admitted at [facility], was discharged earlier this week, for similar complaints. Historical: - Allergies: 19:43 Codeine; 19:43 Morphine; 19:43 PENICILLINS; - Home Meds: 19:43 amiodarone 200 mg Oral tab 0.5 tab 2 times per day [Active]; amitriptyline 50 mg Oral wh tab 1 tab once daily [Active]; amlodipine 10 mg tab 1 tab once daily [Active]; aspirin 81 mg Oral chew 1 tab once daily [Active]; atorvastatin 20 mg Oral tab 1 tab once daily [Active]; carvedilol 25 mg Oral tab 0.5 tab 2 times per day [Active]; carvedilol 25 mg Oral tab 1 tab 2 times per day [Active]; citalopram 20 mg tab 1 tab once daily [Active]; clonidine HCl 0.2 mg Oral tab Q6h prn SBP>180 [Active]; clopidogrel 75 mg Oral tab 1 tab once daily [Active]; hydralazine 50 mg Oral tab three times a day [Active]; hydrochlorothiazide 12.5 mg Oral tab 1 tab once daily [Active]; hydrocodone bitartrate 30 mg Q12h Oral [Active]; isosorbide mononitrate 60 mg Oral Tb24 [Active]; isosorbide mononitrate 60 mg Oral Tb24 1 tab once daily [Active]; Lasix 40 mg Oral tab 1 tab 2 times per day [Active]; lithium carbonate 600 mg Oral cap 1 cap nightly [Active]; losartan 25 mg Oral tab 1 tab once daily [Active]; mometasone-formoterol inhalation [Active]; nitroglycerin 0.4 mg SL subl 1 tab [Active]; Norvasc 10 mg Oral tab once daily [Active]; potassium chloride 20 mEq Oral cpER 1 tab once daily [Active]; ranolazine 1000 mg Oral [Active]; simvastatin 40 mg Oral tab 1 tab once daily [Active]; - PMHx: 19:43 "electrical stimulator"; Atrial Fib; Back pain; Bipolar disorder; CAD; CHF; chronic wh back pain; Cirrhosis; COPD; Hepatitis; High Cholesterol; Hypertension; Pneumonia; - Immunization history:: Adult Immunizations up to date. - Social history:: Smoking status: Patient/guardian denies using tobacco. ROS: 20:38 Eyes: Negative for injury, pain, redness, and discharge, ENT: Negative for injury, pkl pain, and discharge, Neck: Negative for injury, pain, and swelling. 20:38 Cardiovascular: Positive for chest pain. 20:38 Respiratory: Negative for cough, shortness of breath. 20:38 Abdomen/GI: Positive for abdominal pain, of the right upper quadrant and left upper quadrant. 20:38 Back: Negative for acute changes. 20:38 : Negative for urinary symptoms. 20:38 MS/extremity: Negative for acute changes. 20:38 Skin: Negative for rash. 20:38 Neuro: Negative for altered mental status. Exam: 20:38 Head/Face: Normocephalic, atraumatic. Eyes: Pupils equal round and reactive to light, pkl extra-ocular motions intact. Lids and lashes normal. Conjunctiva and sclera are non-icteric and not injected. Cornea within normal limits. Periorbital areas with no swelling, redness, or edema. ENT: Nares patent. No nasal discharge, no septal abnormalities noted. Tympanic membranes are normal and external auditory canals are clear. Oropharynx with no redness, swelling, or masses, exudates, or evidence of obstruction, uvula midline. Mucous membranes moist. Neck: Trachea midline, no thyromegaly or masses palpated, and no cervical lymphadenopathy. Supple, full range of motion without nuchal rigidity, or vertebral point tenderness. No Meningismus. Chest/axilla: Normal chest wall appearance and motion. Nontender with no deformity. No lesions are appreciated. Cardiovascular: Regular rate and rhythm with a normal S1 and S2. No gallops, murmurs, or rubs. Normal PMI, no JVD. No pulse deficits. Respiratory: Lungs have equal breath sounds bilaterally, clear to auscultation and percussion. No rales, rhonchi or wheezes noted. No increased work of breathing, no retractions or nasal flaring. 20:38 Abdomen/GI: Bowel sounds: normal, Palpation: abdomen is soft and non-tender, in all quadrants. 20:38 Back: Exam negative for acute changes. 20:38 : Exam negative for acute changes. 20:38 Musculoskeletal/extremity: Exam is negative for acute changes. 20:38 Skin: Exam negative for rash. 20:38 Neuro: Orientation: is normal, Mentation: is normal, Cranial nerves: grossly normal, Motor: is normal. Vital Signs: 19:38 BP 225 / 100; Pulse 80; Resp 20; Temp 97.3; Pulse Ox 100% on R/A; Weight 63.5 kg; wh Height 5 ft. 9 in. (175.26 cm); Pain 9/10; 21:00 BP 226 / 107; Pulse 75; Resp 16; Pulse Ox 100% on R/A; vg1 22:00 BP 211 / 107; Pulse 77; Resp 18; Pulse Ox 98% on R/A; jb4 23:00 BP 196 / 103; Pulse 77; Resp 18; Pulse Ox 100% on R/A; jb4 19:38 Body Mass Index 20.67 (63.50 kg, 175.26 cm) wh MDM: 20:02 Patient medically screened. pkl 23:19 Data reviewed: vital signs, nurses notes, lab test result(s), EKG, radiologic studies, pkl plain films. 02/19 19:52 Order name: Basic Metabolic Panel [facility] 02/19 19:52 Order name: CBC with Diff; Complete Time: 23:16 [facility] 02/19 19:52 Order name: LFT's; Complete Time: 23:16 [facility] 02/19 19:52 Order name: Magnesium; Complete Time: 23:16 [facility] 02/19 19:52 Order name: NT PRO-BNP; Complete Time: 23:16 [facility] 02/19 19:52 Order name: PT-INR; Complete Time: 23:16 [facility] 02/19 19:52 Order name: Troponin (emerg Dept Use Only); Complete Time: 23:16 [facility] 02/19 19:52 Order name: XRAY Chest (1 view); Complete Time: 23:16 [facility] 02/19 19:52 Order name: Lipase; Complete Time: 23:16 [facility] 02/19 19:52 Order name: Basic Metabolic Panel; Complete Time: 23:16 [facility] 02/19 19:52 Order name: EKG; Complete Time: 19:53 [facility] 02/19 19:52 Order name: Cardiac monitoring; Complete Time: 20:30 [facility] 02/19 19:52 Order name: EKG - Nurse/Tech; Complete Time: 20:30 [facility] 02/19 19:52 Order name: IV Saline Lock; Complete Time: 20:30 [facility] 02/19 19:52 Order name: Labs collected and sent; Complete Time: 20:30 [facility] 02/19 19:52 Order name: O2 Per Protocol; Complete Time: 20:30 [facility] 02/19 19:52 Order name: O2 Sat Monitoring; Complete Time: 20:30 [facility] Administered Medications: 20:41 Drug: morphine 4 mg Route: IVP; Site: right antecubital; vg1 21:14 Follow up: Response: No adverse reaction; Pain is unchanged, physician notified vg1 20:41 Drug: Zofran (Ondansetron) 4 mg Route: IVP; Site: right antecubital; vg1 21:14 Follow up: Response: No adverse reaction vg1 20:41 Drug: Trandate (labetalol) 20 mg Route: IVP; Site: right antecubital; vg1 21:14 Follow up: Response: No adverse reaction; Blood pressure is unchanged vg1 21:39 Drug: Trandate (labetalol) 20 mg Route: IVP; Site: right antecubital; vg1 22:00 Follow up: Response: No adverse reaction; Blood pressure is lowered jb4 23:24 Drug: Klor-Con (potassium) Effervescent Tablet 25 mEq Route: PO; jb4 23:31 Follow up: Response: No adverse reaction jb4 Disposition: 02/19/21 23:22 Discharged to Home. Impression: Chest pain. Abdominal pain. Uncontrolled hypertension. - Condition is Stable. - Prescriptions for Zofran 4 mg Oral Tablet - take 1 tablet by ORAL route every 12 hours As needed; 12 tablet. - Medication Reconciliation Form, Thank You Letter, Antibiotic Education, Prescription Opioid Use form. - Follow up: Private Physician; When: 1 - 2 days; Reason: Re-evaluation by your physician. - Problem is new. - Symptoms have improved. Signatures: Dispatcher [employer] EDRohit Farmer MD MD pkl Jj Saldaña PA PA jmm Bryson, James, RN RN jb4 Lilly Nino RN RN Fidelina Sandoval, RN RN vg1 Corrections: (The following items were deleted from the chart) 23:33 23:22 02/19/2021 23:22 Discharged to Home. Impression: Chest pain. Abdominal pain. jb4 Uncontrolled hypertension. Condition is Stable. Forms are Medication Reconciliation Form, Thank You Letter, Antibiotic Education, Prescription Opioid Use. Follow up: Private Physician; When: 1 - 2 days; Reason: Re-evaluation by your physician. Problem is new. Symptoms have improved. pkl
--- NOTE | 2021-02-19 23:23 | ER ---
Nurse's Notes [facility] Name: Blayne Macias Age: 60 yrs Sex: Male : 1960 Arrival Date: 02/19/2021 Time: 19:36 Bed 4 Private MD: Diagnosis: Chest pain. Abdominal pain. Uncontrolled hypertension Presentation: 02/19 19:38 Chief complaint: EMS states: Pt was discharged yesterday after Colonoscopy, still wh complaining of chest pain that started last Wednesday and now having abdominal pain that started yesterday. Pt also C/O high blood pressure but states he hasn't taken his blood pressure medicine. Coronavirus screen: Client denies travel out of the [place] in the last 14 days. At this time, the client does not indicate any symptoms associated with coronavirus-19. Ebola Screen: Patient negative for fever greater than or equal to 101.5 degrees Fahrenheit, and additional compatible Ebola Virus Disease symptoms Patient denies exposure to infectious person. Initial Sepsis Screen: Does the patient meet any 2 criteria? No. Patient's initial sepsis screen is negative. Does the patient have a suspected source of infection? Yes: Acute abdominal pain. Risk Assessment: Do you want to hurt yourself or someone else? Patient reports no desire to harm self or others. Onset of symptoms was February 19, 2021. Care prior to arrival: None. 19:38 Method Of Arrival: EMS: [facility] 19:38 Acuity: SENTHIL 3 Historical: - Allergies: 19:43 Codeine; 19:43 Morphine; 19:43 PENICILLINS; - Home Meds: 19:43 amiodarone 200 mg Oral tab 0.5 tab 2 times per day [Active]; amitriptyline 50 mg Oral wh tab 1 tab once daily [Active]; amlodipine 10 mg tab 1 tab once daily [Active]; aspirin 81 mg Oral chew 1 tab once daily [Active]; atorvastatin 20 mg Oral tab 1 tab once daily [Active]; carvedilol 25 mg Oral tab 0.5 tab 2 times per day [Active]; carvedilol 25 mg Oral tab 1 tab 2 times per day [Active]; citalopram 20 mg tab 1 tab once daily [Active]; clonidine HCl 0.2 mg Oral tab Q6h prn SBP>180 [Active]; clopidogrel 75 mg Oral tab 1 tab once daily [Active]; hydralazine 50 mg Oral tab three times a day [Active]; hydrochlorothiazide 12.5 mg Oral tab 1 tab once daily [Active]; hydrocodone bitartrate 30 mg Q12h Oral [Active]; isosorbide mononitrate 60 mg Oral Tb24 [Active]; isosorbide mononitrate 60 mg Oral Tb24 1 tab once daily [Active]; Lasix 40 mg Oral tab 1 tab 2 times per day [Active]; lithium carbonate 600 mg Oral cap 1 cap nightly [Active]; losartan 25 mg Oral tab 1 tab once daily [Active]; mometasone-formoterol inhalation [Active]; nitroglycerin 0.4 mg SL subl 1 tab [Active]; Norvasc 10 mg Oral tab once daily [Active]; potassium chloride 20 mEq Oral cpER 1 tab once daily [Active]; ranolazine 1000 mg Oral [Active]; simvastatin 40 mg Oral tab 1 tab once daily [Active]; - PMHx: 19:43 "electrical stimulator"; Atrial Fib; Back pain; Bipolar disorder; CAD; CHF; chronic wh back pain; Cirrhosis; COPD; Hepatitis; High Cholesterol; Hypertension; Pneumonia; - Immunization history:: Adult Immunizations up to date. - Social history:: Smoking status: Patient/guardian denies using tobacco. Screenin:45 Abuse screen: Denies threats or abuse. Denies injuries from another. Nutritional wh screening: No deficits noted. Tuberculosis screening: No symptoms or risk factors identified. Fall Risk None identified. Assessment: 19:45 General: Appears in no apparent distress. uncomfortable, Behavior is cooperative. Pain: Complains of pain in chest and abdomen Pain currently is 9 out of 10 on a pain scale. Quality of pain is described as pressure, Pain began 2-3 days ago. Is. Neuro: Level of Consciousness is awake, alert, obeys commands, Oriented to person, place, time, situation. Cardiovascular: Capillary refill < 3 seconds. Respiratory: Airway is patent Respiratory effort is even, unlabored, Respiratory pattern is regular, symmetrical. GI: Abdomen is flat, non-distended, Reports upper abdominal pain, nausea, vomiting. : No signs and/or symptoms were reported regarding the genitourinary system. EENT: No signs and/or symptoms were reported regarding the EENT system. Derm: Skin is intact, is healthy with good turgor, Skin is pink, warm \\T\\ dry. Musculoskeletal: Circulation, motion, and sensation intact. 20:22 Reassessment: Received VO from Dr Ortega to administer Zofran 4 mg IVP x1, Morphine 4 mg vg1 IVP x1, and Trandate 20 mg IVP x1. 22:15 Reassessment: Patient appears in no apparent distress at this time. Patient and/or jb4 family updated on plan of care and expected duration. Pain level reassessed. Patient is alert, oriented x 3, equal unlabored respirations, skin warm/dry/pink. PT requesting more pain medication. Provider notified, no new orders at this time. 23:00 Reassessment: Provider made aware of blood pressure. No new orders at this time. jb4 23:32 Reassessment: Patient appears in no apparent distress at this time. Patient and/or jb4 family updated on plan of care and expected duration. Pain level reassessed. Patient is alert, oriented x 3, equal unlabored respirations, skin warm/dry/pink. PT verbalized understanding of d/c and follow up instructions. Denies questions or concerns. Patient states feeling better. Vital Signs: 19:38 BP 225 / 100; Pulse 80; Resp 20; Temp 97.3; Pulse Ox 100% on R/A; Weight 63.5 kg; Height 5 ft. 9 in. (175.26 cm); Pain 9/10; 21:00 BP 226 / 107; Pulse 75; Resp 16; Pulse Ox 100% on R/A; vg1 22:00 BP 211 / 107; Pulse 77; Resp 18; Pulse Ox 98% on R/A; jb4 23:00 BP 196 / 103; Pulse 77; Resp 18; Pulse Ox 100% on R/A; jb4 19:38 Body Mass Index 20.67 (63.50 kg, 175.26 cm) ED Course: 19:36 Patient arrived in ED. mw2 19:38 Fidelina Sandoval, RN is Primary Nurse. vg1 19:41 Triage completed. 19:45 Patient has correct armband on for positive identification. Bed in low position. Call light in reach. Side rails up X 1. reconciliation accountant on. Pulse ox on. NIBP on. 19:46 Arm band placed on right wrist. 20:02 Rohit Ortega MD is Attending Physician. pk 20:19 XRAY Chest (1 view) In Process Unspecified. EDMS 22:18 Primary Nurse role handed off by Fidelina Sandoval RN jb4 22:18 Wilfrido Mcnulty, RN is Primary Nurse. jb4 23:00 No provider procedures requiring assistance completed. IV discontinued, intact, jb4 bleeding controlled, No redness/swelling at site. Pressure dressing applied. Administered Medications: 20:41 Drug: morphine 4 mg Route: IVP; Site: right antecubital; vg1 21:14 Follow up: Response: No adverse reaction; Pain is unchanged, physician notified vg1 20:41 Drug: Zofran (Ondansetron) 4 mg Route: IVP; Site: right antecubital; vg1 21:14 Follow up: Response: No adverse reaction vg1 20:41 Drug: Trandate (labetalol) 20 mg Route: IVP; Site: right antecubital; vg1 21:14 Follow up: Response: No adverse reaction; Blood pressure is unchanged vg1 21:39 Drug: Trandate (labetalol) 20 mg Route: IVP; Site: right antecubital; vg1 22:00 Follow up: Response: No adverse reaction; Blood pressure is lowered jb4 23:24 Drug: Klor-Con (potassium) Effervescent Tablet 25 mEq Route: PO; jb4 23:31 Follow up: Response: No adverse reaction jb4 Outcome: 23:22 Discharge ordered by . pk 23:33 Discharged to home via wheelchair. jb4 23:33 Condition: stable 23:33 Discharge instructions given to patient, Instructed on discharge instructions, follow up and referral plans. medication usage, Demonstrated understanding of instructions, follow-up care, medications, Prescriptions given X 1. 23:33 Patient left the ED. jb4 Signatures: Dispatcher [employer] EDKY Rohit Ortega MD MD pkl Bryson, James, RN RN jb4 Lilly Nino RN RN Vin Lee 2 Fidelina Sandoval, DIANA RN vg1 Corrections: (The following items were deleted from the chart) 19:45 19:38 BP 254 / 119; Pulse 80bpm; Resp 20bpm; Pulse Ox 100% RA; Temp 97.3F; 63.5 kg; wh Height 5 ft. 9 in.; BMI: 20.6; Pain 9/10; wh
[2021-02-19] MEDS ORDERED: POTASSIUM 25 MEQ EFFERV TAB ONE (23:41)
[2021-02-19 23:44] VITALS: TEMP 97.3
[2021-02-19 23:48] VITALS: BP 196/103; O2SAT 100
== END 2021-02-19 23:33 | disposition home or self-care (01) ==
LOC: ER 19:34
DX: R10.10 Upper abdominal pain, unspecified (principal); I10 Essential (primary) hypertension; I48.91 Unspecified atrial fibrillation; E78.00 Pure hypercholesterolemia, unspecified; I50.9 Heart failure, unspecified; J44.9 Chronic obstructive pulmonary disease, unspecified; Z79.82 Long term (current) use of aspirin
CPT/HCPCS: 85025; 80048; 36415; 83735; 85610; 80076; 84484; 83690; 83880; 71045; J2405; 93005; 96374; 96375; 99284

== ENCOUNTER 2021-03-09 09:01 | Observation (INO) | payer OTHER ==
--- OUTSIDE RECORDS SUMMARY | 2021-03-09 09:06 | XMS REPORT | Continuity of Care Document ---
:1960 Author Organization [facility] t Address [address] [place] [address] Care Team Providers Name Role Phone Asked, [...] Unavailable Walker MD, Leticia Admitting Clinician MADHURI DWEYR Admitting Clinician Unavailable Divina CATHERINE Admitting Clinician Unavailable Payers Payer Name Policy Type Policy Effective Date Expiration Date Sour ce Number UHC MEDICAREUHC [id number] 2020 [place] DUAL COMPLETE 00:00:00 Shinto [id number]/10/26 021-PresentHMO [facility] [id number] [facility] - - MEDICARE MGD 00:00:00 Medical Ce nter CAREUNITED MEDICARE [id number]/10/26 016-Present Problems Condition Condition Condition Status Onset Resolution Last Treating Co mments Source Name Details Category Date Date Treatment Clinician Date Hypertensi Hypertensi Disease Active [facility] ve ve [facility]20 [facility] - emergency emergency 00:00: [facility] 00 [place] Acute Acute Disease Active [facility] kidney kidney 7-20 [facility] - injury injury 00:00: Medical 00 [place] Diarrhea Diarrhea Disease Active [facility] t 7[facility]20 [facility] - 00:[facility]: Medical 00 [place] Transamini Transamini Disease Active [facility] tis tis 7-20 [facility] - 00:00: Medical 00 [place] Hepatitis Hepatitis Disease Active [facility] C virus C virus 7-20 [facility] - infection infection 00:00: [facility] without without 00 Center hepatic hepatic coma coma Chest pain Chest pain Disease Active [facility] 7[facility]16 [facility] - 00:00: Medical 00 [place] Syncope Syncope Disease Active [facility] 7-16 [...] [facility] ins 1-08 Clear 00:00: Pink 00 [facility] codeine DA Active SV [facility] 1-08 Clear 00:00: Pink 00 [facility] Cephalos Propensi Active Nausea And [...] Adverse Active rash [facility] in Reaction [facility] ent Clinics Cephalos Adverse Active [facility] Clin[facility] Social History Social Habit Start Date Stop Date Quantity Comments Source Tobacco use and 2019-06-14 2019-06-[address] Abigail kes - exposure 00:00:00 00:00:00 Medical Center History of 2018-05-25 Cigarette Smoker [facility] - tobacco use 00:00:00 [facility] Sex Assigned At [birth year] [facility] ethodist 00:00:00 00:00:00 Smoking Status Start Date Stop Date Source Former smoker 2019-06-14 00:00:00 2019-06-14 00:00:[address] [facility] Medications Ordered Filled Start Stop Current Ordering Indication Dosage Frequency Signature Comments Components Source Medication Medication Date Date Medication? Clinician (SIG) Name Name Buddy Goodwin Yes Na Heard as needed [facility] 3[facility]19 for nausea [facility] - 00:00: Memoria 00 [facility] ent [facility] amitriptyli Yes 50mg QD Take [address] ne (ELAVIL) 8-22 by mouth Luke s - 50 MG 14:22: nightly. Medical tablet 42 [place] DULoxetine Yes 60mg QD Take [address] (CYMBALTA) 8-22 by mouth [facility] - 60 MG 14:22: daily. Medical capsule 42 [place] vitamin E Yes 200U QD Take [address] 200 UNIT 8-22 Units by [facility] - capsule 14:22: mouth Medical 42 daily. [place] lithium 300 2019-0 Yes 300mg QD Take 300 C HI [...] mcg/actuati (two) on inhaler times daily. clopidogrel 2019-0 2020- No 75mg QD Take [address] (PLAVIX) 75 8-22 08-21 tablet (75 L ukes - mg tablet 00:00: 23:59 mg total) Me dical 00 :00 by mouth Center daily. Albuterol Albuterol 2018-0 Yes Na Heard inhale [address] Sulfate Sulfate 5-14 vial by [facility] - 00:00: mouth via Memoria 00 nebulizer l 3 times a [facility] Ipratropium Ipratropium 2018- Yes Na Heard as [facility] [place] 5-14 directed [facility] - 00:00: Memoria 00 [facility] ent Clinics Amlodipine Amlodipine 2017-10 Yes Na Heard [address] Besylate Besylate 0-29 [facility] - 00:00: Memoria 00 [facility] ent [facility] aspirin 81 2017- Yes 81mg QD [...] week then Memoria 00 1 tablet l [facility] carvedilol Yes 25mg Take 1 [...] [facility] - ER ER morning [facility] [place] Na Heard [address] Carbonate Carbonate at bedtime [facility] [...] tablet [facility] Carvedilol Carvedilol Yes Na Heard as [facility] directed [facility] HydrALAZINE HydrALAZINE Yes Na Heard [...] [facility] ent Clinics [place] Yes Na Heard [address] [facility] [address] as needed [facility] Hydrochloro Hydrochloro Yes Na Heard [address] thiazide thiazide in the [facility] - morning [facility] Ranolazine Ranolazine Yes Na Heard [address] ER ER [facility] Lisinopril Lisinopril Yes Na Heard [address] Lactulose Lactulose Yes Na Heard [address] [facility] [place] Yes Na Heard TAKE [address] Carbonate Carbonate CAPSULE BY [facility] - MOUTH Memoria DAILY AT l BEDTIME [facility] Procedures Procedure Date / Time Performed Performing Clinician Sourc e CT CHEST EXTERNAL 2020-09-14 14:51:[address] HEAD EXTERNAL STUDY 2020-09-14 14:46:[address] SPINE EXTERNAL 2020-09-14 14:46:00 Aashish Knott STUDY XR SPINE EXTERNAL 2020-08-12 14:53:00 Aashish Knott STUDY XR SPINE EXTERNAL 2020-07-12 09:07:00 Aashish Knott STUDY SARS-COV2/RT-PCR ([facility] 2020-05-19 20:30:00 [facility]F LAB[facility]) [facility] Plan of Care Planned Activity Planned Date Details Comments Source Future Scheduled 2022-06-[address] [facility] - Test 00:00:00 (procedure) [code = [facility] 24931211] Future Scheduled 2021-05-25 INFLUENZA VACCINE [place] [facility] Test 00:00:00 [code = INFLUENZA VACCINE] Future Scheduled 2020-10-[address] [facility] - Test 00:00:00 (12+) [code = [facility] DEPRESSION SCREENING (12+)] Future Scheduled 2020-06-25 [...] Future Scheduled 2008 COLONOSCOPY SCREENING [place] [facility] Test 00:00:00 [code = COLONOSCOPY SCREENING] Future Scheduled 2008 SHINGLES VACCINES (#1) [place] [facility] Test 00:00:00 [code = SHINGLES VACCINES (#1)] [...] Scheduled 1974 COVID-19 VACCINE (1) [place] [facility] Test 00:00:00 [code = COVID-19 VACCINE (1)] Future Scheduled [address] [facility] - Test 00:00:00 0-64 YRS (1 of 1 - Medical C enter PPSV23) [code = PNEUMOCOCCAL VACCINE 0-64 YRS (1 of 1 - PPSV23)] Future Scheduled [address] [facility] Kofi es - Test 00:00:00 malignant neoplasm of Medica l Center colon (procedure) [code = 410605621] Encounters Start End Encounter Admission Attending Care Care Encounter Source Date/Time Date/Time Type Type Clinicians Facility Department ID 2021-02-26 2021-02-26 Outpatient [facility] [id number] [facility] 2021-02-10 2021-02-10 Outpatient [facility] [id number] [facility] 2021-02-10 2021-02-10 [facility] [id number] [facility] 2021-02-05 2021-02-05 Outpatient [facility] [id number] [facility] 2021-02-04 2021-02-04 Outpatient [facility] [id number] [facility] 2021-01-31 2021-01-31 Outpatient [facility] [id number] [facility] 2021-01-01 2021-01-01 Outpatient [facility] [id number] [facility] 2020-12-25 2020-12-25 Outpatient [facility] [id number] [facility] 2020-12-03 2020-12-03 Outpatient CHRS[facility]OPHER, [facility] [id number] [place] 00:00:00 00:00:00 RYLEY [address] 2020-11-19 2020-11-19 Outpatient [facility] [id number] 365 [place] 00:00:00 00:00:[address] 2020-11-19 2020-11-19 Outpatient [facility] [id number] [place] 00:00:00 00:00:[address] 2020-11-19 2020-11-19 Outpatient [facility] [id number] 853 [place] 00:00:00 00:00:[address] 2020-11-19 2020-11-19 Outpatient [facility] [id number] 851 [place] 00:00:00 00:00:[address] 2020-11-19 2020-11-19 Outpatient [facility] [id number] 851 [place] 00:00:00 00:00:[address] 2020-11-19 2020-11-19 Outpatient [facility] [id number] [place] 00:00:00 00:00:[address] 2020-11-19 2020-11-19 Outpatient [facility] [id number] 852 [place] 00:00:00 00:00:[address] 2020-11-19 2020-11-19 Outpatient [facility] [id number] [place] 00:00:00 00:00:[address] 2020-11-19 2020-11-19 Outpatient [facility] [id number] 852 [place] 00:00:00 00:00:[address] 2020-11-07 2020-11-07 [facility] [id number] 2020-08-12 2020-08-12 [facility] [id number] [facility] 2020-08-08 2020-08-08 Out[facility] [id number] [facility] 2020-07-22 2020-07-22 Transition Jackie Lopez [id number] 00:00:00 00:00:00 of Care Mirella Castro [id number] [place] [id number] 2020-07-18 2020-07-20 [facility] Darren Vasquez 1.2. [id number] 22:50:00 13:00:00 Encounter RamónMoshey [id number] [place] [id number] 2020-07-18 2020-07-18 Emergency Singer Mejia [facility] [id number] 17:31:00 21:56:00 Osmin Clemons [id number] [place] [id number] [place] [id number] 2020-06-25 2020-06-25 [facility] [id number] 11:20:00 11:20:00 t InstaGIS s - mSilica [facility] Medicine Outpati ent Clinics 2020-05-03 2020-05-03 [facility] [id number] 14:25:00 14:25:00 t InstaGIS s - mSilica [facility] Medicine Outpati ent Clinics 2020-02-12 2020-02-12 [facility] [id number] 11:15:00 11:15:00 t Your.MD [email or web address] s Box Jump [facility] Medicine Outpati ent Clinics 2020-01-26 2020-01-26 [facility] [id number] 11:20:00 11:20:00 [place] ProtonMedia [facility] Medicine Outpati ent Clinics 2020-01-11 2020-01-11 [facility] [id number] 15:32:00 15:32:00 t Spotlime [facility] Medicine Outpati ent Clinics 2020-01-03 2020-01-03 [facility] [id number] 09:20:00 09:20:00 t Spotlime [facility] Medicine Outpati ent Clinics 2020-01-02 2020-01-02 Outpatient MHBL MHBL [id number] MHBL 09:54:00 09:54:00 2019-11-13 2019-11-13 [facility] [id number] 14:13:00 14:13:00 t Specialty/U Abigail kes - Specialty rology [facility] a /Urology Clinic l Clinic Outpati ent Clinics 2019-11-01 2019-11-01 [facility] [id number] 09:20:00 09:20:00 t Spotlime [facility] Medicine Outpati ent Clinics 2019-10-27 2019-10-27 Outpatient MHSE MHSE [id number] [facility] 08:50[facility] 2019-09-05 2019-09-05 [facility] [id number] 09:29:00 09:29:00 [place] [employer] [facility] Medicine Outpati ent Clinics 2019-05-31 2019-05-31 [facility] [id number] 12:00:00 12:00:00 [place] [employer] [facility] Medicine Outpati ent Clinics 2019-05-30 2019-05-30 [facility] [id number] 15:00:00 15:00:00 t Spotlime [facility] Medicine Outpati ent Clinics 2019-04-26 2019-04-26 [facility] [id number] 15:09:00 15:09:00 [place] ONStor s - Drive [facility] Medicine l Medicine Outpati ent Clinics 2019-03-30 2019-03-30 [facility] [id number] 15:40:00 15:40:00 [place] [email or web address] s - Drive [facility] Medicine Outpati ent Clinics 2019-02-23 2019-02-23 Outpatient E MHSE MED [id number] 15:40:00 15:40:00 [facility] 2019-01-10 2019-01-10 [facility] [id number] 08:41:00 08:41:00 [place] [email or web address] s - Drive [facility] Medicine l Medicine Outpati ent Clinics 2018-12-12 2018-12-12 [facility] [id number] 08:15:00 08:15:00 [place] [email or web address] s - Drive [facility] Medicine Medicine Outpati ent Clinics 2018-07-27 2018-07-27 [facility] [id number] 15:15:00 15:15:00 [place] [email or web address] s - mSilica [facility] Medicine Medicine Outpati ent Clinics 2018-06-09 2018-06-09 [facility] [id number] 08:00:00 08:00:00 [place] [email or web address] s - mSilica [facility] Medicine l Medicine Outpati ent Clinics 2018-05-31 2018-05-31 [facility] [id number] 09:00:00 09:00:00 [place] [email or web address] s - Drive [facility] Medicine Medicine Outpati ent Clinics 2018-04-20 2018-04-20 [facility] [id number] 09:45:00 09:45:00 [place] [email or web address] s - Drive [facility] Medicine l Medicine Outpati ent Clinics 2018-04-15 2018-04-15 [facility] [id number] 15:26:00 15:26:00 [place] [email or web address] s - Drive [facility] Medicine l Medicine Outpati ent Clinics 2018-03-15 2018-03-15 Outpatient Nelson Palomares [id number] 15:15:00 15:15:00 [facility] ent [facility] 2018-02-28 2018-02-28 Outpatient Nelson Damont [id number] 09:15:00 09:15:00 [facility] Results Test Description Test Time Test Comments Results Result [facility] e Comments XR Spine External 2020-11-19 This exam was not [place] Study 14:10:51 acquired at a Shinto Shinto facility and has not been interpreted by a Shinto Provider. The exam was imported into our imaging system. CT Chest External 2020-11-19 This exam was not [place] Study 14:00:27 acquired at a Shinto Shinto facility and has not been interpreted by a Shinto Provider. The exam was imported into our imaging system. CT Spine External 2020-11-19 This exam was not [place] Study 13:56:35 acquired at a Shinto Shinto facility and has not been interpreted by a Shinto Provider. The exam was imported into our imaging system. CT Head External 2020-11-19 This exam was not [facility] Study 13:54:19 acquired at a Shinto Shinto facility and has not been interpreted by a Shinto Provider. The exam was imported into our imaging system. SARS-CoV2/RT-PCR ([facility]) 2020-05-20 09:54:00 Test Item Value Reference Range Interpretation Comme nts SARS-COV2/RT-PCR (test code = Negative Not Detected, 61622-1) Negative, See external report for linked test SARS-COV-2 PERFORMING LAB [facility] [place] (test code = 80219-8) JENNIFER (test code = JENNIFER) Negative result [...] of the Act. Fact Sheet for Healthcare Providers:https://www.[employer]/sites/default/files/produ ct/documents/Fact_Sheet_HC_Pr qnfaqfv_Wqfa_DGKJ-HqL-5.pdf Fact Sheet for Healthcare Patients:https://www.[employer]/sites/default/files/produc t/documents/Fact_Sheet_Patien vp_Ptyo_QYYH-HeH-0.pdf Performing Laboratory:[facility] [place], [place] [address] [place], [place] [address]ARS-COV2/RT-PCR ([facility])2020-05-20 09:54:00 Test Item Value Reference Range Interpretation Comments SARS-COV2/RT-PCR (test Negative Not Detected, Negative, code = 0498314) See external report for linked test SARS-COV-2 PERFORMING LAB [facility] (test code = 2878676) Negative result for this test determines that [...] 564(g) of the Act.Fact Sheet for Healthcare Providers:https://www.[employer]/sites/default/files/product/documents/Fact_Shee t_LX_Bogqijfod_Czlm_QNTO-TvZ-5.pdfFact Sheet for Healthcare Patients:https://www.[employer]/sites/default/files/product/ documents/Fglz_Hqeas_Oletgzux_Tkpl_GEWI-PiY-4.pdfPerforming Laboratory:[facility], [place] [address]VTZLV METABOLIC PANEL 2019-11-04 06:36:00 Test Item Value [...] CA) 8.9 MG/DL 8.5-10.1 N CBC W/AUTO [id number] 06:32:00 Test Item Value Reference Range Interpretation [...] = NO DIFF/SCN CRITERIA MDIFF) COMPREHENSIVE METABOLIC [id number] 06:08:00 Test Item Value Reference Range Interpretation [...] TOTAL (test code = ALKP) CBC W/AUTO [id number] 05:52:00 Test Item Value Reference Range Interpretation [...] concentrations <2 ng/mL are obtai brandon. LACTIC [id number] 16:03:00 Test Item Value Reference Range Interpretation Comments LACTIC ACID (test code = LACT) 1.0 mmol/L 0.4-2.0 N - XR CHEST 1 [id number] 15:59:00 Name: ALHAJI FARAH [place] : 1960 Age/S: 58 / M [address] Unit #: [id number] Loc: [place] [address] Phys: Jac Leal MD Acct: [id number] Dis Date: Status: ADM IN PHONE #: [phone] Exam Date: 11/02/2019 1556 FAX #: Reason: Fever EXAMS: CPT: [id number] XR CHEST 1 V 08570 Fluoro Time: DAP (Gy m2): Air Kerma [...] PAGE 1 Signed Report Name: ALHAJI FARAH [place] : 1960 Age/S: 58 / M [address] Unit #: [id number] Loc: [place] [address] Phys: Jac Leal MD Acct: [id number] Dis Date: Status: ADM IN PHONE #: [phone] Exam Date: 11/02/2019 1554 FAX #: Reason: Fever EXAMS: CPT: [id number] XR CHEST 1 V 53732 Fluoro Time: DAP (Gy m2): Air Kerma (mGy): <Continued> Technologist: Sabine Cross RT(R)(CT) Trnscb Date/Time: 11/02/2019 (1559) [email or web address] Orig Print D/T: S: 11/02/2019 (3782) PAGE 2 Signed [id number] 04:22:00 Test Item Value Reference Range Interpretation [...] yby method. Completed by Nursing: NOBASIC METABOLIC [id number] 04:19:00 Test Item Value Reference Range Interpretation [...] CA) 8.1 MG/DL 8.5-10.1 L CBC W/AUTO [id number] 04:08:00 Test Item Value Reference Range Interpretation [...] = NO DIFF/SCN CRITERIA MDIFF) - CTA [id number] 22:57:00 Name: ALHAJI FARAH [facility] : 1960 Age/S: 58 / M [address] Unit #: [id number] Loc: [place] [address] Phys: Jac Leal MD Acct: [id number] Dis Date: Status: ADM IN PHONE #: [phone] Exam Date: 11/01/2019 1823 FAX #: Reason: Chest PAIN EXAMS: CPT: [id number] CTA CHEST 73996 Examination: CTA chest, PE protocol Indication: Chest [...] FARAH : 1960 Age/S: 58 / M [address] [facility] [place] Unit #: [id number] Loc: [place] [address] Phys: Jac Leal MD Acct: [id number] Dis Date: Status: ADM IN PHONE #: [phone] Exam Date: 11/01/2019 8260 FAX #: Reason: Chest PAIN EXAMS: CPT: [id number] CTA CHEST 32531 <Continued> No suspicious or destructive osseous lesions. Impression: Limited exam secondary to phase of contrast no evidence of acute pulmonary embolism proximal lobar pulmonary arteries. There is irregular, possibly nodular thickening of the esophagus, recommend further evaluation with endoscopy Additional findings as detailed above at 5760 Reported and signed by: Katy Dykes M.D. CC: Jac Leal MD Technologist:Curly Logan, RT(R)(CT); .. CTDI: DLP: Trnscb Date/Time: 11/01/2019 (2256) [email or web address] Orig Print D/T: S: 11/01/2019 (064) PAGE 2 Signed ReportGLYCOSYLATED HEMOGLOBIN [id number] 17:41:00 Test Item Value Reference Range Interpretation Comments GLYCOSYLATED HEMOGLOBIN (HA1C) 6.3 % A1C 4.2-6.3 N (test code = GLYHGB) ESTIMATED AVERAGE GLUCOSE (test 134 MG/DLest code = EAG) COMPREHENSIVE METABOLIC [id number] 17:40:00 Test Item Value Reference Range Interpretation [...] = LDL/HDL) 2.94 Ratio 1.48-3.22 Avg N [id number] 17:40:00 Test Item Value Reference Range Interpretation Comments PHOSPHOROUS (test code = PHOS) 3.5 MG/DL 2.5-4.9 N RULE OUT [place] [id number] 17:40:00 Test Item Value Reference Range Interpretation [...] one another as nume rical results may roam yby method. [id number] 17:40:00 Test Item Value Reference Range Interpretation Comments MAGNESIUM (test code = MAG) 2.5 MG/DL 1.8-2.4 H TROPONIN I [id number] 15:24:00 Test Item Value Reference Range Interpretation Comments TROPONIN I RAPID 0.04 ng/mL 0.00-0.08 N - The use o f serial (test code = sampling and te sting TROPIRAP) protocol is a recommended pra ctice- An elevated tro ponin level alone is often not sufficient for diagnosis of my ocardial infarction. BASIC METABOLIC [id number] 13:39:00 Test Item Value Reference Range Interpretation [...] 133 Unit/L 26-192 N CK) TROPONIN I [id number] 11:56:00 Test Item Value Reference Range Interpretation Comments TROPONIN I RAPID 0.04 ng/mL 0.00-0.08 N - The use o f serial (test code = sampling and te sting TROPIRAP) protocol is a recommended pra ctice- An elevated tro ponin level alone is often not sufficient for diagnosis of my ocardial infarction. - XR CHEST 1 [id number] 11:53:00 Name: MIKAL FARAHY JESSEKolby [place] : 1960 Age/S: 58 / M [address] [address] Unit #: [id number] Loc: [place] [address] Phys: Darell Medrano MD Acct: [id number] Dis Date: Status: PRE ER PHONE #: [phone] Exam Date: 11/01/2019 1147 FAX #: Reason: chest pain EXAMS: CPT: [id number] XR CHEST 1 V 78383 Fluoro Time: DAP (Gy m2): Air Kerma [...] 1 Signed Report Name: MIKAL FARAHMarty GOMES [place] :1960 Age/S: 58 / M [address] [address] Unit #: [id number] Loc: [place] [address] Phys: Darell Medrano MD Acct: [id number] Dis Date: Status: PRE ER PHONE #: [phone] Exam Date: 11/01/2019 1146 FAX #: Reason: chest pain EXAMS: CPT: [id number] XR CHEST 1 V 67632 Fluoro Time: DAP (Gy m2): Air Kerma (mGy): <Continued> Technologist:Nirmal Negron RT(R)(MR) Trnscb Date/Time: 11/01/2019 (9233) [email or web address] Orig Print D/T: S: 11/01/2019 (9917) PAGE 2 Signed ReportCBC W/O [id number] 11:50:00 Test Item Value Reference Range Interpretation [...] 11.80 fL 7.0-9.6 H MPV) CHEMISTRY 8 [id number] 11:47:00 Test Item Value Reference Range Interpretation [...] 49-113 N code = GFRBED) CHEMISTRY 8 [id number] 11:47:00 Test Item Value Reference Range Interpretation [...] 49-113 N (test code = GFRBED) TISSUE [id number] 10:31:00Surgical Pathology Report Case: [id number] Authorizing Provider: Caleb Dawn Collected: 06/14/2019 Bhavna Morales MD Ordering Location: [address] Received: 06/15/2019 0759 Service Pathologist: Misty Jackson MD Specimen: Ampulla, Ampulla Bx A. "AMPULLA", BIOPSY: - SQUAMOUS AND FOVEOLAR TYPE MUCOSA WITH MILD CHRONIC INFLAMMATION - NEGATIVE FOR MALIGNANCY (SEE COMMENT) Signing Pathologist Direct Phone Line: [phone] signed by Misty Jackson MD on 06/19/2019 at 10:31 AMThe biopsy shows fragments of squamous and foveolar type mucosa with mild chronic inflammation and cautery. Focal muscle is also seen. No definite small bowel/ biliary lining is seen. The ampulla normally does not have squamous lining. This could be a metaplastic change. Clinical and endoscopic correlation is required.[id number] and postop diagnosis: endoscopic ultrasound with endo, [...] MDReport Verified Date/Time: 06/16/2019 12:50:49 Reading Location: [facility] Radiology Reading Room BLOOD CULTURE 2019-06-16 12:01:00 Test Item Value Reference Range Interpretation Comments CULTURE (BEAKER) (test No growth in 5 days code = 1095) BLOOD [id number] 12:01:00 Test Item Value Reference Range Interpretation Comments CULTURE (BEAKER) (test No growth in 5 days code = 1095) COMPREHENSIVE METABOLIC [id number] 07:08:00 Test Item Value Reference Range Interpretation [...] NOT APPLICABLE FOR DIALYSIS PATIEN TS. BLOOD [id number] 02:00:00 Test Item Value Reference Range Interpretation Comments CULTURE (BEAKER) (test No growth in 5 days code = 1095) BLOOD [id number] 02:00:00 Test Item Value Reference Range Interpretation Comments CULTURE (BEAKER) (test No growth in 5 days code = 1095) BLOOD [id number] 02:00:00 Test Item Value Reference Range Interpretation Comments CULTURE (BEAKER) (test No growth in 5 days code = 1095) COMPREHENSIVE METABOLIC [id number] 04:49:00 Test Item Value Reference Range Interpretation [...] 0-0 CELLS (ARIEL) (test code = 413) [id number] 16:17:00 Test Item Value Reference Range Interpretation Comments ACTIVATED CLOTTING TIME 125 sec TEST ED AT [facility] 6720 (ARIEL) (test code = [place] [address]) [address] PET, CARDIAC PERFUSION MULTIPLE STUDIES, REST AND [id number] 16:40:00 Reason for exam:->chest pain, evaluate for worsening CAD, s/p CABGFINAL REPORT PROCEDURE: MYOCARDIAL PERFUSION PET IMAGING (Rest/Stress)CPT CODE: 67679 INDICATION: Evaluate acute chest pain/discomfort CARDIOVASCULAR PROFILE:CAD [...] MDReport Verified Date/Time: 06/12/2019 16:40:23 Reading Location: [place] [id number] Reading Room TROPONIN [id number] 02:08:00 Test Item Value Reference Range Interpretation [...] acute neurological disease, and persistent tachyarrhythmia.HEPATIC FUNCTION [id number] 02:02:00 Test Item Value Reference Range Interpretation [...] = 26 U/L 6-55 347) BASIC METABOLIC [id number] 02:02:00 Test Item Value Reference Range Interpretation [...] APPLICABLE FOR DIALYSIS PATIEN TS. VANCOMYCIN LEVEL, [id number] 01:59:00 Test Item Value Reference Range Interpretation [...] WBC 0-0 (BEAKER) (test code = 413) [id number] 07:20:00 Test Item Value Reference Range Interpretation Comments PROCALCITONIN (BEAKER) (test code 0.30 ng/mL <0.05 H = 3036) SEPSIS RISK (ng/mL)Low: 0.05-0.50Intermediate: 0.51-2.00High: >=2.01BASIC METABOLIC [id number] 07:16:00 Test Item Value Reference Range Interpretation [...] APPLICABLE FOR DIALYSIS PATIEN TS. HEPATIC FUNCTION [id number] 07:16:00 Test Item Value Reference Range Interpretation [...] WBC 0-0 (BEAKER) (test code = 413) [id number] 05:55:00 Test Item Value Reference Range Interpretation Comments MAGNESIUM (BEAKER) (test code = 2.1 mg/dL 1.6-2.6 627) LIPID [id number] 05:55:00 Test Item Value Reference Range Interpretation [...] 130-159 High 160-189 Very High >=190HEPATIC FUNCTION [id number] 05:55:00 Test Item Value Reference Range Interpretation [...] = 34 U/L 6-55 347) BASIC METABOLIC [id number] 05:55:00 Test Item Value Reference Range Interpretation [...] PATIEN TS. CBC W/PLT COUNT & AUTO [id number] 05:03:00 Test Item Value Reference Range Interpretation [...] PERCENT (BEAKER) (test code = 2801) TROPONIN [id number] 05:02:00 Test Item Value Reference Range Interpretation [...] acute neurological disease, and persistent tachyarrhythmia.LACTIC ACID, [id number] 04:48:00 Test Item Value Reference Range Interpretation Comments LACTATE BLOOD VENOUS (2) (BEAKER) 1.1 mmol/L 0.5-2.2 (test code = 2872) URINALYSIS W/ REFLEX URINE [id number] 03:25:00 Test Item Value Reference Range Interpretation [...] SOURCE(BEAKER) (test code = 2795) OXYGEN SATURATION, [id number] 03:04:00 Test Item Value Reference Range Interpretation [...] 0.7 mmol/L 0.5-2.2 (test code = 2872) [id number] 23:52:00 Test Item Value Reference Range Interpretation Comments PROCALCITONIN (BEAKER) (test code 0.30 ng/mL <0.05 H = 3036) SEPSIS RISK (ng/mL)Low: 0.05-0.50Intermediate: 0.51-2.00High: >=2.01TROPONIN [id number] 23:40:00 Test Item Value Reference Range Interpretation [...] failure, acidosis, acute neurological disease, and persistent tachyarrhythmia.[id number] 23:34:00 Test Item Value Reference Range Interpretation Comments PHOSPHORUS (BEAKER) (test code = 3.4 mg/dL 2.3-4.7 604) [id number] 23:34:00 Test Item Value Reference Range Interpretation Comments MAGNESIUM (BEAKER) (test code = 2.2 mg/dL 1.6-2.6 627) BASIC METABOLIC [id number] 23:34:00 Test Item Value Reference Range Interpretation [...] APPLICABLE FOR DIALYSIS PATIEN TS. HEPATIC FUNCTION [id number] 23:34:00 Test Item Value Reference Range Interpretation [...] = 42 U/L 6-55 347) COMPREHENSIVE METABOLIC [id number] 23:34:00 Test Item Value Reference Range Interpretation [...] S NOT APPLICABLE FOR DIALYSIS PATIEN TS. [id number] 23:34:00 Test Item Value Reference Range Interpretation Comments LIPASE (BEAKER) (test code = 749) 38 U/L 8-78 [id number] 23:33:00 Test Item Value Reference Range Interpretation Comments PARTIAL THROMBOPLASTIN TIME 27.3 seconds 22.5-36.0 (BEAKER) (test code = 760) [id number] 23:33:00 Test Item Value Reference Range Interpretation Comments FIBRINOGEN LEVEL (BEAKER) (test 300 mg/dl 225-434 code = 658) PROTHROMBIN TIME/[id number] 23:32:00 Test Item Value Reference Range Interpretation [...] mechanical heart valves.CBC W/PLT COUNT & AUTO [id number] 23:22:00 Test Item Value Reference Range Interpretation [...] (BEAKER) (test code = 2801) BLOOD GAS, [id number] 22:27:00 Test Item Value Reference Range Interpretation [...] code = 1819) 21.0 % POCT-LACTIC ACID, [id number] 21:53:00 Test Item Value Reference Range Interpretation Comments POC-LACTIC ACID, 1.6 mmol/L 0.9-1.7 TESTED AT [place] [address] VENOUS (BEAKER) (test [facility] Jeannine [facility] code = 2805) [address] TROPONIN [id number] 18:59:00 Test Item Value Reference Range Interpretation Comments TROPONIN I ([facility]) (test code = 0.09 ng/mL 0.00-0.03 H [...] acute neurological disease, and persistent tachyarrhythmia.HEPATITIS C [id number] 16:55:00 Test Item Value Reference Range Interpretation Comments HEPATITIS C ANTIBODY ([facility]) (test Reactive Nonreactive A code = 367) POCT-GLUCOSE [id number] 12:03:00 Test Item Value Reference Range Interpretation Comments POC-GLUCOSE METER 169 mg/dL 70-110 H TESTED AT [place] [address] ([facility]) (test code = [facility] 1538) [address] HEPATITIS B CORE ANTIBODY, [id number] 08:37:00 Test Item Value Reference Range Interpretation Comments HEPATITIS B CORE TOTAL ANTIBODY Reactive Nonreactive A ([facility]) (test code = 497) POCT-GLUCOSE [id number] 08:14:00 Test Item Value Reference Range Interpretation Comments POC-GLUCOSE METER 105 mg/dL 70-110 TESTED AT [place] [address] ([facility]) (test code = [facility] 1538) [address] HEPATIC FUNCTION [id number] 07:10:00 Test Item Value Reference Range Interpretation Comments TOTAL PROTEIN ([facility]) (test code = 6.7 gm/dL 6.0-8.3 770) ALBUMIN ([facility]) (test code = 1145) 3.5 g/dL 3.5-5.0 BILIRUBIN TOTAL (AKER) (test code 0.5 mg/dL 0.2-1.2 = 377) BILIRUBIN DIRECT ([facility]) (test 0.3 mg/dL 0.1-0.5 code = 706) ALKALINE PHOSPHATASE (BEAKER) (test 60 U/L 40-150 code = 346) AST (SGOT) (BEAKER) (test code = 47 U/L 5-34 H 353) ALT (SGPT) (BEAKER) (test code = 67 U/L 6-55 H 347) BASIC METABOLIC [id number] 07:10:00 Test Item Value Reference Range Interpretation [...] FOR DIALYSIS PATIEN TS. HEPATITIS B SURFACE [id number] 06:58:00 Test Item Value Reference Range Interpretation Comments HEPATITIS B SURFACE ANTIBODY < mIU/mL <8.0 (BEAKER) (test code = 647) HEPATITIS B SURFACE [id number] 05:42:00 Test Item Value Reference Range Interpretation Comments HEPATITIS B SURFACE ANTIGEN (2) Nonreactive Nonreactive (BEAKER) (test code = 2585) HEPATITIS B CORE ANTIBODY, [id number] 05:42:00 Test Item Value Reference Range Interpretation Comments HEPATITIS B CORE IGM ANTIBODY Nonreactive Nonreactive (BEAKER) (test code = 645) CBC W/PLT COUNT & AUTO [id number] 04:56:00 Test Item Value Reference Range Interpretation [...] (test code = 2801) U/S, RENAL WITH [id number] 16:28:00Reason for exam:->hypertensionFINAL REPORT INDICATION: 57-year-old inpatient [...] MDReport Verified Date/Time: 05/11/2018 16:28:02 Reading Location: [address] Ultrasound Reading Room U/S, ABDOMINAL, [id number] 16:15:00Abdomen limited area? Add comment if clarification [...] MDReport Verified Date/Time: 05/11/2018 16:15:41 Reading Location: [facility] B1 P006J Ultrasound Reading Room CTA, CHEST, ABDOMEN - PELVIS, FOR [id number] 14:11:00Reason for exam:->Chest painAddendum BeginsREPORT STATUS:A Addendum: I agree with the previously described non vascular findings. Signed: Antionette Hinojosa MDReport Verified Date/Time: 05/11/2018 14:11:09 Reading Location: [facility] P048 Angio Body Reading RoomAddendum EndsFINAL [...] coronary artery calcification is seen in the [place] coronary [place]. Patient is post coronary artery [...] thoracic aorta. In the abdominal aorta, circumferential wdzm-sf-wxkgrvkp calcific atherosclerosis is seen. Overall, no ectasia [...] An addendum will be dictated by the Drawer Waxer Radiologist regarding the nonvascular findings. Signed: Magno Augustin [facility] Verified Date/Time: 05/10/2018 18:58:16 Reading Location: [place] [address] Cardiology MRI CALCIUM, [id number] 05:20:00 Test Item Value Reference Range Interpretation Comments CALCIUM IONIZED (BEAKER) (test 1.16 mmol/L 1.12-1.27 code = 698) PH, BLOOD (BEAKER) (test code = 7.40 1810) [id number] 04:29:00 Test Item Value Reference Range Interpretation Comments PHOSPHORUS (BEAKER) (test code = 3.5 mg/dL 2.3-4.7 604) [id number] 04:29:00 Test Item Value Reference Range Interpretation Comments MAGNESIUM (BEAKER) (test code = 2.4 mg/dL 1.6-2.6 627) COMPREHENSIVE METABOLIC [id number] 04:29:00 Test Item Value Reference Range Interpretation [...] PATIEN TS. CBC W/PLT COUNT & AUTO [id number] 03:58:00 Test Item Value Reference Range Interpretation [...] (BEAKER) (test code = 2801) U/S, RENAL, [id number] 13:00:00Reason for exam:->akiShould this be performed at [...] MDReport Verified Date/Time: 05/10/2018 13:00:32 Reading Location: [facility] P006J Ultrasound Reading Room CALCIUM, [id number] 06:58:00 Test Item Value Reference Range Interpretation Comments CALCIUM IONIZED (BEAKER) (test 1.08 mmol/L 1.12-1.27 L code = 698) PH, BLOOD (BEAKER) (test code = 7.35 1810) B-TYPE NATRIURETIC FACTOR (BNP)2018-05-10 05:49:00 Test Item Value Reference Range Interpretation Comments B-TYPE NATRIURETIC PEPTIDE (BEAKER) 153 pg/mL 0-100 H (test code = 700) [id number] 05:47:00 Test Item Value Reference Range Interpretation Comments MAGNESIUM (BEAKER) 2.4 mg/dL 1.6-2.6 Specimen slightly (test code = 627) hemolyzed [id number] 05:47:00 Test Item Value Reference Range Interpretation Comments PHOSPHORUS (BEAKER) 2.7 mg/dL 2.3-4.7 Specimen slightly (test code = 604) hemolyzed COMPREHENSIVE METABOLIC [id number] 05:47:00 Test Item Value Reference Range Interpretation [...] PATIEN TS. CBC W/PLT COUNT & AUTO [id number] 05:31:00 Test Item Value Reference Range Interpretation [...] (BEAKER) (test code = 2801) EOSINOPHIL SMEAR, [id number] 22:19:00 Test Item Value Reference Range Interpretation Comments EOSINOPHIL SMEAR, URINE (BEAKER) No EOS seen No EOS seen (test code = 1851) URINALYSIS W/ [id number] 22:13:00 Test Item Value Reference Range Interpretation [...] SOURCE(BEAKER) (test code = 2795) SODIUM, RANDOM [id number] 21:38:00 Test Item Value Reference Range Interpretation Comments SODIUM URINE (BEAKER) (test code = < meq/L 243) Reference Range: No NormalsPROTEIN, RANDOM [id number] 21:38:00 Test Item Value Reference Range Interpretation Comments PROTEIN, URINE (BEAKER) (test code = 15 mg/dL 0-14 H 1569) CREATININE, RANDOM [id number] 21:38:00 Test Item Value Reference Range Interpretation Comments CREATININE URINE (BEAKER) (test 173.4 mg/dL code = 375) Reference Range: No NormalsRAD, FOOT, 2 VIEWS, [id number] 13:59:00Reason for exam:->Pain and swelling of left foot after fall.FINAL REPORT Two views left foot Discussion: There is hallux valgus with degen erative changes. No visible acute fracture, dislocation, destructive lesion. Soft tissues are unremarkable. Signed: Darren Ariza Verified Date/Time: 05/09/2018 13:59:01 Reading Location: [facility] C013W Consult Reading Room PUL PERF IMAGING, PARTIC, [id number] 12:03:00FINAL REPORT PROCEDURE: V/Q LUNG SCAN CPT CODE: 27749 INDICATION: Acute chest pain, PE suspected, dyspnea, [...] Pimentel MDReport Verified Date/Time: 05/09/2018 12:03:05 ReadingLocation: [address] [address] [facility] Reading Room FL, ESOPH, SWALLOW FUNCTION, WITH CINE OR [id number] 11:00:00Reason for exam:->chest painFINAL REPORT Esophagram History: [...] Verified Date/Time: 0 05/09/2018 11:00:37 Reading Location: [facility] C013X [facility] Consult Reading Room HEMOGLOBIN [id number] 10:45:00 Test Item Value Reference Range Interpretation Comments HEMOGLOBIN A1C (BEAKER) (test code = 6.3 % 4.3-6.1 H 368) BASIC METABOLIC [id number] 08:43:00 Test Item Value Reference Range Interpretation [...] FOR DIALYSIS PATIEN TS. Re-draw per labLIPID [id number] 08:42:00 Test Item Value Reference Range Interpretation [...] Borderline 130-159 High 160-189 Very High >=190LITHIUM [id number] 08:31:00 Test Item Value Reference Range Interpretation Comments LITHIUM LEVEL (BEAKER) (test code 0.4 mmol/L 0.8-1.2 L = 630) RAPID DRUG SCREEN, [id number] 07:54:00 Test Item Value Reference Range Interpretation [...] situations. Chain of custody not maintained. Some vees-fgt-fogcdxn medications, as well as adulterants, may cause inaccurate results. Clinical correlation should be applied. A more comprehensive drug screen or confirmation of a detected drug may be performed upon request. CREATINE KINASE (CK), TOTAL AND [id number] 07:47:00 Test Item Value Reference Range Interpretation Comments CREATINE KINASE TOTAL (BEAKER) 161 U/L 29-200 (test code = 380) CREATINE KINASE-MB (BEAKER) (test 4.9 ng/mL 0.0-6.6 code = 750) CREATINE KINASE-MB INDEX (BEAKER) 3.0 % (test code = 395) CK-MB Reference Range:<6.7 Normal6.7-10.0 Borderline>10.0 AbnormalTROPONIN [id number] 07:47:00 Test Item Value Reference Range Interpretation [...] acute neurological disease, and persistent tachyarrhythmia.BASIC METABOLIC [id number] 04:56:00 Test Item Value Reference Range Interpretation [...] (test code = 413) CT, BRAIN, WITHOUT [id number] 21:00:00FINAL REPORT CT, BRAIN, WITHOUT CONTRAST INDICATION: [...] MDReport Verified Date/Time: 05/08/2018 21:00:20 Reading Location: [address] Reading Room B-TYPE NATRIURETIC FACTOR (BNP)2018-05-08 19:03:00 Test Item Value Reference Range Interpretation Comments B-TYPE NATRIURETIC PEPTIDE (BEAKER) 254 pg/mL 0-100 H (test code = 700) CREATINE KINASE (CK), TOTAL AND [id number] 19:02:00 Test Item Value Reference Range Interpretation Comments CREATINE KINASE TOTAL (BEAKER) 150 U/L 29-200 (test code = 380) CREATINE KINASE-MB (BEAKER) (test 5.5 ng/mL 0.0-6.6 code = 750) CREATINE KINASE-MB INDEX (BEAKER) 3.7 % (test code = 395) CK-MB Reference Range:<6.7 Normal6.7-10.0 Borderline>10.0 AbnormalTROPONIN [id number] 19:02:00 Test Item Value Reference Range Interpretation [...] acute neurological disease, and persistent tachyarrhythmia.BASIC METABOLIC [id number] 18:32:00 Test Item Value Reference Range Interpretation [...] PATIEN TS. CBC W/PLT COUNT & AUTO [id number] 18:28:00 Test Item Value Reference Range Interpretation [...] 0-1 PERCENT (BEAKER) (test code = 2801) [id number] 18:15:00 Test Item Value Reference Range Interpretation Comments PARTIAL THROMBOPLASTIN TIME 30.0 seconds 22.5-36.0 (BEAKER) (test code = 760) Prior to initiating heparinXR Fluoroscopy in Imaging per [id number] 12:25:17 Patient: ALHAJI FARAH Date/Time04/05/2018 11:30 CDTReason [...]
[2021-03-09] MEDS ORDERED: ACETAMINOPHEN 650MG/RECT SUPP PR ONE (09:35)
[2021-03-09 09:42] LABS: Absolute Lymphocytes (CBC) 1.4 K/uL (0.7-4.9); Basophils % 0.6 % (0-1.3); Hematocrit 36.4 % (39.6-49.0); Lymphocytes % 9.2 % (15.3-44.8); MPV 10.2 fL (7.6-11.3); RBC Red Blood Cell Count 3.97 M/uL (4.33-5.43)
[2021-03-09 09:44] LABS: Protime INR 1.03
[2021-03-09] MEDS ORDERED: CEFEPIME/SWI 1gm 10 ML ONE (09:58)
[2021-03-09] MEDS ORDERED: CLINDAMYCIN 600MG/D5W 600 MG/50 ML BAG IV ONE (09:58)
[2021-03-09] MEDS ORDERED: METHYLPREDNISOLONE 125 MG INJ ONE (09:58)
[2021-03-09] MEDS ORDERED: NA CHLORIDE 0.9% 1,000 ML ONE (09:59)
[2021-03-09] MEDS ORDERED: VANCOMYCIN/NS 1 gm 1 GM/250 ML BAG IVPB ONE (10:00)
[2021-03-09 10:04] LABS: Albumin 3.3 g/dL (3.4-5.0); Bilirubin Direct 0.2 mg/dL (0-0.2); Bilirubin Total 0.5 mg/dL (0.2-1.0); CKMB Creatine Kinase MB 7.5 ng/mL (0.3-3.6); Potassium 3.8 mmol/L (3.5-5.1); Protein, Total 7.8 g/dL (6.4-8.2); Troponin (Emerg Dept Use Only) 0.02 ng/mL (0.0-0.045)
--- NOTE | 2021-03-09 10:27 | RAD REPORT ---
EXAM DESCRIPTION: CT - Head Brain Wo Cont - 03/09/2021 9:52 am CLINICAL HISTORY: Fever;Confused COMPARISON: Head Brain Wo Cont dated 11/27/2020 TECHNIQUE: Axial 5 mm thick images of the head were obtained without IV contrast. All CT scans are performed using dose optimization technique as appropriate and may include automated exposure control or mA/KV adjustment according to patient size. FINDINGS: No intracranial hemorrhage, mass, edema or shift of mid-line structures. No acute cortical based infarction. No cortical edema or sulcal effacement. Diminished attenuation in the cerebral whi te matter extends towards each thalamus. This pattern is similar to comparison is most likely chronic ischemic change. No significant atrophy. Ventricles are normal. Mastoid air cells are clear. Chronic right maxillary sinusitis findings again noted. No acute bony findings. IMPRESSION: Negative non-contrast CT head examination for acute finding. Cerebral white matter attenuation abnormality most likely chronic ischemic change. This is similar to comparison.
--- NOTE | 2021-03-09 10:38 | RAD REPORT ---
EXAM DESCRIPTION: RAD - Chest Single View - 03/09/2021 10:04 am CLINICAL HISTORY: CONGESTION COMPARISON: Portable February 19 TECHNIQUE: AP portable chest image was obtained 03/09/2021 10:04 am . FINDINGS: No dense consolidations seen. There is increased interstitial and patchy alveolar opacific ation in the lower right lung field. This is in part due to shallow inspiration. However, early right base pneumonia is suspected. Upper right lung field in the left lung field are clear. No acute failu re or volume overload. Heart size is upper normal. Sternotomy wires are in place. No measurable pleur al effusion and no pneumothorax. No acute bony abnormality seen. No acute aortic findings suspected. IMPRESSION: Suspected mild or early right lower lobe pneumonia.
--- NOTE | 2021-03-09 11:00 | EDPHYS ---
Physician Documentation [facility] Name: Blayne Macias Age: 60 yrs Sex: Male : 1960 Arrival Date: 03/09/2021 Time: 09:04 Bed 4 Private MD: ED Physician Qing Ramos HPI: 03/09 10:57 This 60 yrs old Male presents to ER via EMS with complaints of cough. ma2 10:57 Onset: The symptoms/episode began/occurred gradually, 2 day(s) ago. Severity of ma2 symptoms: At their worst the symptoms were moderate, in the emergency department the symptoms are unchanged. Associated signs and symptoms: Pertinent negatives:. The patient has not experienced similar symptoms in the past. Historical: - Allergies: 09:31 Codeine; jd3 09:31 Morphine; jd3 09:31 PENICILLINS; jd3 - Home Meds: 09:31 amiodarone 200 mg Oral tab 0.5 tab 2 times per day [Active]; amitriptyline 50 mg Oral jd3 tab 1 tab once daily [Active]; amlodipine 10 mg tab 1 tab once daily [Active]; atorvastatin 20 mg Oral tab 1 tab once daily [Active]; carvedilol 25 mg Oral tab 0.5 tab 2 times per day [Active]; citalopram 20 mg tab 1 tab once daily [Active]; aspirin 81 mg Oral chew 1 tab once daily [Active]; clonidine HCl 0.2 mg Oral tab Q6h prn SBP>180 [Active]; hydralazine 50 mg Oral tab three times a day [Active]; clopidogrel 75 mg Oral tab 1 tab once daily [Active]; hydrochlorothiazide 12.5 mg Oral tab 1 tab once daily [Active]; hydrocodone bitartrate 30 mg Q12h Oral [Active]; isosorbide mononitrate 60 mg Oral Tb24 [Active]; isosorbide mononitrate 60 mg Oral Tb24 1 tab once daily [Active]; lithium carbonate 600 mg Oral cap 1 cap nightly [Active]; Lasix 40 mg Oral tab 1 tab 2 times per day [Active]; carvedilol 25 mg Oral tab 1 tab 2 times per day [Active]; mometasone-formoterol inhalation [Active]; nitroglycerin 0.4 mg SL subl 1 tab [Active]; Norvasc 10 mg Oral tab once daily [Active]; potassium chloride 20 mEq Oral cpER 1 tab once daily [Active]; losartan 25 mg Oral tab 1 tab once daily [Active]; ranolazine 1000 mg Oral [Active]; simvastatin 40 mg Oral tab 1 tab once daily [Active]; - PMHx: 09:31 Hepatitis; Atrial Fib; "electrical stimulator"; Bipolar disorder; COPD; CHF; High jd3 Cholesterol; CAD; chronic back pain; Back pain; Cirrhosis; Hypertension; Pneumonia; - Immunization history:: Adult Immunizations unknown. - Social history:: Smoking status: unknown Patient/guardian denies using alcohol, street drugs, The patient lives with family. - Family history:: not pertinent. ROS: 10:57 Constitutional: Negative for fever, chills, and weight loss. ma2 10:57 All other systems are negative. Exam: 10:57 Constitutional: This is a well developed, well nourished patient who is awake, alert, ma2 and in no acute distress. Head/Face: Normocephalic, atraumatic. Eyes: Pupils equal round and reactive to light, extra-ocular motions intact. Lids and lashes normal. Conjunctiva and sclera are non-icteric and not injected. Cornea within normal limits. Periorbital areas with no swelling, redness, or edema. ENT: Nares patent. No nasal discharge, no septal abnormalities noted. Tympanic membranes are normal and external auditory canals are clear. Oropharynx with no redness, swelling, or masses, exudates, or evidence of obstruction, uvula midline. Mucous membranes moist. Neck: Trachea midline, no thyromegaly or masses palpated, and no cervical lymphadenopathy. Supple, full range of motion without nuchal rigidity, or vertebral point tenderness. No Meningismus. Chest/axilla: Normal chest wall appearance and motion. Nontender with no deformity. No lesions are appreciated. Cardiovascular: Regular rate and rhythm with a normal S1 and S2. No gallops, murmurs, or rubs. Normal PMI, no JVD. No pulse deficits. Abdomen/GI: Soft, non-tender, with normal bowel sounds. No distension or tympany. No guarding or rebound. No evidence of tenderness throughout. MS/ Extremity: Pulses equal, no cyanosis. Neurovascular intact. Full, normal range of motion. Neuro: Awake and alert, GCS 15, oriented to person, place, time, and situation. Cranial nerves II-XII grossly intact. Motor strength 5/5 in all extremities. Sensory grossly intact. Cerebellar exam normal. Normal gait. 10:57 Respiratory: moderate respiratory distress is noted, Respirations: labored breathing, Breath sounds: rhonchi, that are moderate, are heard in the right middle lobe, Respiratory rate: 22 Vital Signs: 09:27 BP 192 / 83; Pulse 85; Resp 22 S; Temp 102.5(O); Pulse Ox 88% on R/A; Weight 72.57 kg jd3 (R); Height 5 ft. 8 in. (172.72 cm) (R); Pain 0/10; 09:28 Pulse Ox 98% on 2 lpm NC; jd3 10:16 BP 171 / 85; Pulse 75; Resp 18 S; Pulse Ox 99% on 2 lpm NC; jd3 11:00 BP 156 / 94; Pulse 73; Resp 19 S; Pulse Ox 96% on 2 lpm NC; jd3 11:50 BP 162 / 115; Pulse 70; Resp 16 S; Temp 99.0(O); Pulse Ox 97% on 2 lpm NC; jd3 12:49 BP 171 / 79; Pulse 70; Resp 19 S; Pulse Ox 96% on 2 lpm NC; jd3 15:50 BP 149 / 77; Pulse 63; Resp 15 S; Pulse Ox 99% on 2 lpm NC; jd3 09:27 Body Mass Index 24.33 (72.57 kg, 172.72 cm) [facility] MDM: 09:06 Patient medically screened. [facility] 10:57 Differential Diagnosis: Bronchitis Sinusitis Pharyngitis Pneumonia. Data reviewed: [facility] vital signs, nurses notes. Counseling: I had a detailed discussion with the patient and/or guardian regarding: the historical points, exam findings, and any diagnostic results supporting the discharge/admit diagnosis, the presence of at least one elevated blood pressure reading (>120/80) during this emergency department visit, the need for further work-up and treatment in the hospital. Response to treatment: the patient's symptoms have markedly improved after treatment. 03/09 09:16 Order name: Amylase, Serum [facility] 03/09 09:16 Order name: Basic Metabolic Panel ma03/09 09:16 Order name: Blood Culture Adult (2) 03/09 09:16 Order name: CBC with Diff 03/09 09:16 Order name: Ckmb 03/09 09:16 Order name: CPK; Complete Time: 10:27 03/09 09:16 Order name: Lactate; Complete Time: 10:27 ky03/09 09:16 Order name: LFT's; Complete Time: 10:27 ky03/09 09:16 Order name: Lipase; Complete Time: 10:27 03/09 09:16 Order name: Protime (+inr); Complete Time: 10:27 ky03/09 09:16 Order name: Ptt, Activated; Complete Time: 10:27 ky03/09 09:16 Order name: Troponin (emerg Dept Use Only); Complete Time: 10:27 ky03/09 09:16 Order name: Urine Microscopic Only ky03/09 09:16 Order name: Chest Single View XRAY; Complete Time: 10:59 ky03/09 09:17 Order name: Amylase; Complete Time: 10:27 [facility] 03/09 09:17 Order name: Basic Metabolic Panel; Complete Time: 10:27 [facility] 03/09 09:17 Order name: Blood Culture [place] 03/09 09:17 Order name: CBC with Automated Diff; Complete Time: 16:09 [facility] 03/09 09:17 Order name: CKMB Creatine Kinase MB; Complete Time: 10:27 [facility] 03/09 09:20 Order name: CT Head Brain wo Cont; Complete Time: 10:38 ky03/09 10:03 Order name: CBC Smear Scan; Complete Time: 16:09 [facility] 03/09 12:12 Order name: SARS-COV-2 RT PCR; Complete Time: 16:09 [facility] 03/09 09:16 Order name: Accucheck; Complete Time: 09:33 03/09 09:16 Order name: Cardiac monitoring; Complete Time: 09:34 03/09 09:16 Order name: EKG - Nurse/Tech; Complete Time: 09:34 03/09 09:16 Order name: IV Saline Lock - Large Bore; Complete Time: 09:34 ky03/09 09:16 Order name: Labs collected and sent; Complete Time: 09:34 ma2 03/09 09:16 Order name: O2 Per Protocol; Complete Time: 09:34 ma2 03/09 09:16 Order name: O2 Sat Monitoring; Complete Time: 09:34 ma2 Administered Medications: 09:33 Drug: Tylenol Suppository 650 mg Route: [place]; jd3 10:30 Follow up: Response: No adverse reaction jd3 10:14 Drug: MethylPrednisoLONE 125 mg Route: IVP; Site: right forearm; jd3 10:30 Follow up: Response: No adverse reaction jd3 10:15 Drug: Cefepime 1 grams Route: IVPB; Rate: 200 ml/hr; Infused Over: 30 mins; Site: right jd3 forearm; 10:45 Follow up: Response: No adverse reaction; IV Status: Completed infusion jd3 10:15 Drug: Clindamycin 600 mg Route: IVPB; Infused Over: 30 mins; Site: right forearm; jd3 10:30 Follow up: Response: No adverse reaction; IV Status: Completed infusion jd3 10:16 Drug: NS 0.9% (30 ml/kg) 30 ml/kg Route: IV; Rate: bolus; Site: right forearm; jd3 11:15 Follow up: Response: No adverse reaction; IV Status: Completed infusion; IV Intake: jd3 1000ml ; given 1000 ml of full sepsis bolus with verbal order from provider 10:57 Drug: vancoMYCIN 1 grams Route: IVPB; Infused Over: 2 hrs; Site: right forearm; jd3 12:55 Follow up: Response: No adverse reaction; IV Status: Completed infusion jd3 10:57 Drug: TORadol (ketorolac) 30 mg Route: IVP; Site: right forearm; jd3 16:24 Follow up: Response: No adverse reaction jd3 Disposition: 03/09/21 10:59 Hospitalization ordered by Juwan James for Inpatient Admission. Preliminary diagnosis are Pneumonia due to other specified bacteria, Severe sepsis without septic shock, Hypoxemia. - Bed requested for Telemetry/MedSurg (Inpatient). - Status is Inpatient Admission. jd3 - Condition is Stable. - Problem is new. - Symptoms are unchanged. Critical care time excluding procedures: 10:57 Critical care time: Bedside Care: 35 minutes, Consultation: 5 minutes. Total time: 40 ma2 minutes Signatures: Dispatcher [employer] Graham Odonnell em1 Gilberto Nevarez, MULTIGRAPHER-C MULTIGRAPHER-Cla1 Preston Hardy, RN RN jd3 Qing Ramos MD MD ma2 Corrections: (The following items were deleted from the chart) 11:29 10:38 CORONAVIRUS+.SALOMONZ ordered. EDMS EDMS 13:37 10:59 Hospitalization Ordered by Juwan James DO for Inpatient Admission. Preliminary em1 diagnosis is Pneumonia due to other specified bacteria; Severe sepsis without septic shock; Hypoxemia. Bed requested for Telemetry/MedSurg (Inpatient). Status is Inpatient Admission. Condition is Stable. Problem is new. Symptoms are unchanged. ma2 16:55 13:37 03/09/2021 10:59 Hospitalization Ordered by Juwan James DO for Inpatient jd3 Admission. Preliminary diagnosis is Pneumonia due to other specified bacteria; Severe sepsis without septic shock; Hypoxemia. Bed requested for Telemetry/MedSurg (Inpatient). Status is Inpatient Admission. Condition is Stable. Problem is new. Symptoms are unchanged. em1
--- NOTE | 2021-03-09 11:00 | ER ---
Nurse's Notes [facility] Name: Blayne Macias Age: 60 yrs Sex: Male : 1960 Arrival Date: 03/09/2021 Time: 09:04 Bed 4 Private MD: Diagnosis: Pneumonia due to other specified bacteria;Severe sepsis without septic shock;Hypoxemia Presentation: 03/09 09:22 Chief complaint: EMS states: "his reported he started getting a fever and confused jd3 starting yesterday. pt with high heart rate and low O2 when we first got there this morning. neb treatment given and heart rate returned to normal. O2 came back up to 100%on the neb treatment. fever of 102.". Coronavirus screen: cough unrelated to allergies, fever, Client presents with at least one sign or symptom that may indicate coronavirus-19. Standard/surgical mask placed on the client. Provider contacted for isolation considerations. Ebola Screen: Patient negative for fever greater than or equal to 101.5 degrees Fahrenheit, and additional compatible Ebola Virus Disease symptoms. Initial Sepsis Screen: Does the patient meet any 2 criteria? RR > 20 per min. Temp <36.0*C (96.8*F)) or > 38.3*C (100.9*F). Yes Does the patient have a suspected source of infection? Yes: Productive cough/pneumonia If YES to both, name of provider notified: Qing Ramos MD. Risk Assessment: Do you want to hurt yourself or someone else? Patient reports no desire to harm self or others. Onset of symptoms was March 08, 2021. 09:22 Acuity: SENTHIL 2 jd3 09:22 Method Of Arrival: EMS: [facility] jd3 Historical: - Allergies: 09:31 Codeine; jd3 09:31 Morphine; jd3 09:31 PENICILLINS; jd3 - Home Meds: 09:31 amiodarone 200 mg Oral tab 0.5 tab 2 times per day [Active]; amitriptyline 50 mg Oral jd3 tab 1 tab once daily [Active]; amlodipine 10 mg tab 1 tab once daily [Active]; atorvastatin 20 mg Oral tab 1 tab once daily [Active]; carvedilol 25 mg Oral tab 0.5 tab 2 times per day [Active]; citalopram 20 mg tab 1 tab once daily [Active]; aspirin 81 mg Oral chew 1 tab once daily [Active]; clonidine HCl 0.2 mg Oral tab Q6h prn SBP>180 [Active]; hydralazine 50 mg Oral tab three times a day [Active]; clopidogrel 75 mg Oral tab 1 tab once daily [Active]; hydrochlorothiazide 12.5 mg Oral tab 1 tab once daily [Active]; hydrocodone bitartrate 30 mg Q12h Oral [Active]; isosorbide mononitrate 60 mg Oral Tb24 [Active]; isosorbide mononitrate 60 mg Oral Tb24 1 tab once daily [Active]; lithium carbonate 600 mg Oral cap 1 cap nightly [Active]; Lasix 40 mg Oral tab 1 tab 2 times per day [Active]; carvedilol 25 mg Oral tab 1 tab 2 times per day [Active]; mometasone-formoterol inhalation [Active]; nitroglycerin 0.4 mg SL subl 1 tab [Active]; Norvasc 10 mg Oral tab once daily [Active]; potassium chloride 20 mEq Oral cpER 1 tab once daily [Active]; losartan 25 mg Oral tab 1 tab once daily [Active]; ranolazine 1000 mg Oral [Active]; simvastatin 40 mg Oral tab 1 tab once daily [Active]; - PMHx: 09:31 Hepatitis; Atrial Fib; "electrical stimulator"; Bipolar disorder; COPD; CHF; High jd3 Cholesterol; CAD; chronic back pain; Back pain; Cirrhosis; Hypertension; Pneumonia; - Immunization history:: Adult Immunizations unknown. - Social history:: Smoking status: unknown Patient/guardian denies using alcohol, street drugs, The patient lives with family. - Family history:: not pertinent. Screenin:17 Abuse screen: Denies threats or abuse. Nutritional screening: No deficits noted. jd3 Tuberculosis screening: No symptoms or risk factors identified. Fall Risk Ambulatory Aid- None/Bed Rest/Nurse Assist (0 pts). Gait- Normal/Bed Rest/Wheelchair (0 pts) Mental Status- Oriented to own ability (0 pts). Total Kang Fall Scale indicates No Risk (0-24 pts). Assessment: 10:17 General: Appears comfortable, Behavior is drowsy, inappropriate for age. Pain: Unable jd3 to use pain scale. Patient is disoriented. FLACC scale score is 0 out of 10. Neuro: Level of Consciousness is awake, confused, Oriented to none. Cardiovascular: Heart tones present Capillary refill < 3 seconds Patient's skin is warm and dry. Rhythm is regular. Respiratory: Airway is patent Respiratory effort is even, unlabored, shallow, Respiratory pattern is regular, symmetrical, Breath sounds are diminished bilaterally. GI: No signs and/or symptoms were reported involving the gastrointestinal system. : No signs and/or symptoms were reported regarding the genitourinary system. EENT: No signs and/or symptoms were reported regarding the EENT system. Derm: Skin is intact, Skin is dry, Skin is normal, Skin temperature is warm. Musculoskeletal: Circulation, motion, and sensation intact. Range of motion: intact in all extremities. 11:01 Reassessment: Patient and/or family updated on plan of care and expected duration. Pain jd3 level reassessed. pt appears more alert. but still with some drowsiness. answering questions at this time, A\\T\\O X 1. pt remains confused. 11:50 Reassessment: No changes from previously documented assessment. Patient and/or family jd3 updated on plan of care and expected duration. Pain level reassessed. 12:49 Reassessment: No changes from previously documented assessment. Patient and/or family jd3 updated on plan of care and expected duration. Pain level reassessed. pt resting in bed awaiting admission. 14:05 Reassessment: No changes from previously documented assessment. Patient and/or family jd3 updated on plan of care and expected duration. Pain level reassessed. report attempt made to 2 nd flood. nurse was busy will call back. 15:49 Reassessment: No changes from previously documented assessment. Patient and/or family jd3 updated on plan of care and expected duration. Pain level reassessed. report attempt called to 2 nd floor. was told nurse was busy and that she will call back. 16:23 Reassessment: Patient appears in no apparent distress at this time. No changes from jd3 previously documented assessment. Patient and/or family updated on plan of care and expected duration. Pain level reassessed. report given to Elijah ORTIZ nurse for room 223. Vital Signs: 09:27 BP 192 / 83; Pulse 85; Resp 22 S; Temp 102.5(O); Pulse Ox 88% on R/A; Weight 72.57 kg jd3 (R); Height 5 ft. 8 in. (172.72 cm) (R); Pain 0/10; 09:28 Pulse Ox 98% on 2 lpm NC; jd3 10:16 BP 171 / 85; Pulse 75; Resp 18 S; Pulse Ox 99% on 2 lpm NC; jd3 11:00 BP 156 / 94; Pulse 73; Resp 19 S; Pulse Ox 96% on 2 lpm NC; jd3 11:50 BP 162 / 115; Pulse 70; Resp 16 S; Temp 99.0(O); Pulse Ox 97% on 2 lpm NC; jd3 12:49 BP 171 / 79; Pulse 70; Resp 19 S; Pulse Ox 96% on 2 lpm NC; jd3 15:50 BP 149 / 77; Pulse 63; Resp 15 S; Pulse Ox 99% on 2 lpm NC; jd3 09:27 Body Mass Index 24.33 (72.57 kg, 172.72 cm) jd3 ED Course: 09:04 Patient arrived in ED. em1 09:06 Qing Ramos MD is Attending Physician. ma2 09:22 Preston Hardy RN is Primary Nurse. jd3 09:27 Triage completed. jd3 09:28 Arm band placed on. EKG completed in triage. Results shown to MD. jd3 09:32 Inserted saline lock: 20 gauge in right forearm, using aseptic technique. Blood jd3 collected. placed by Jihan ORTIZ. 09:33 Missed attempt(s): 20 gauge in left antecubital area. mt 09:52 CT Head Brain wo Cont In Process Unspecified. EDMS 10:03 Chest Single View XRAY In Process Unspecified. EDMS 10:17 Patient has correct armband on for positive identification. Placed in gown. Bed in low jd3 position. Call light in reach. Side rails up X2. monitor tech on. Pulse ox on. NIBP on. 10:59 Juwan James DO is Hospitalizing Provider. ma2 16:24 No provider procedures requiring assistance completed. Patient admitted, IV remains in jd3 place. Administered Medications: 09:33 Drug: Tylenol Suppository 650 mg Route: [place]; jd3 10:30 Follow up: Response: No adverse reaction jd3 10:14 Drug: MethylPrednisoLONE 125 mg Route: IVP; Site: right forearm; jd3 10:30 Follow up: Response: No adverse reaction jd3 10:15 Drug: Cefepime 1 grams Route: IVPB; Rate: 200 ml/hr; Infused Over: 30 mins; Site: right jd3 forearm; 10:45 Follow up: Response: No adverse reaction; IV Status: Completed infusion jd3 10:15 Drug: Clindamycin 600 mg Route: IVPB; Infused Over: 30 mins; Site: right forearm; jd3 10:30 Follow up: Response: No adverse reaction; IV Status: Completed infusion jd3 10:16 Drug: NS 0.9% (30 ml/kg) 30 ml/kg Route: IV; Rate: bolus; Site: right forearm; jd3 11:15 Follow up: Response: No adverse reaction; IV Status: Completed infusion; IV Intake: jd3 1000ml ; given 1000 ml of full sepsis bolus with verbal order from provider 10:57 Drug: vancoMYCIN 1 grams Route: IVPB; Infused Over: 2 hrs; Site: right forearm; jd3 12:55 Follow up: Response: No adverse reaction; IV Status: Completed infusion jd3 10:57 Drug: TORadol (ketorolac) 30 mg Route: IVP; Site: right forearm; jd3 16:24 Follow up: Response: No adverse reaction jd3 Intake: 11:15 IV: 1000ml; Total: 1000ml. jd3 Outcome: 10:59 Decision to Hospitalize by Provider. ma2 16:55 Admitted to Med/surg accompanied by tech, via stretcher, room 223, with oxygen, with jd3 chart, Report called to Elijah ORTIZ 16:55 Condition: stable 16:55 Instructed on the need for admit. 16:55 Patient left the ED. jd3 Signatures: Dispatcher [employer] EDMS Graham Melendez Moriah mt Davies, Jonathon, RN RN [id number] Qing Ramos MD MD ma2 Corrections: (The following items were deleted from the chart) 09:32 09:27 Pulse Ox 98% 2 lpm Nasal Cannula; jd3 jd3 12:22 11:01 Reassessment: Patient and/or family updated on plan of care and expected jd3 duration. Pain level reassessed. Patient is alert, oriented x 3, equal unlabored respirations, skin warm/dry/pink. pt appears more alert. but still with some drowsiness. answering questions appropriately. jd3 12:22 11:50 Reassessment: No changes from previously documented assessment. Patient and/or jd3 family updated on plan of care and expected duration. Pain level reassessed. Patient is alert, oriented x 3, equal unlabored respirations, skin warm/dry/pink. jd3
[2021-03-09] MEDS ORDERED: KETOROLAC 30 MG/ML INJ ONE (11:08)
[2021-03-09 11:21] LABS: Platelet Estimate ADEQ; White Blood Cell Scan OK (OK)
[2021-03-09 11:22] LABS: Blood Morphology Comment NOT SEEN (NOT SEEN)
[2021-03-09] MEDS ORDERED: LABETALOL 20 MG/4ML SYRINGE IV PRN (11:43)
[2021-03-09] MEDS ORDERED: VANCOMYCIN/NS 1 gm 1 GM/250 ML BAG IVPB SCH (13:45)
[2021-03-09] MEDS ORDERED: ONDANSETRON 4 MG/2 ML VIAL IV PRN (13:48)
[2021-03-09] MEDS ORDERED: ACETAMINOPHEN 500 MG TAB PO PRN (13:48)
[2021-03-09] MEDS ORDERED: TRAMADOL HCL 50 MG TAB PO PRN (13:55)
--- NOTE | 2021-03-09 13:59 | P.HP ---
Certification for Inpatient With expected LOS: >2 Midnights Patient will require the following post-hospital care: None Practitioner: I am a practitioner with admitting privileges, knowledge of patient current condition, hospital course, and medical plan of care. Services: Services provided to patient in accordance with Admission requirements found in Title 42 Section 412.3 of the Code of Federal Regulations Patient History Date of Service: 03/09/21 Reason for admission: SOB History of Present Illness: Patient is a 60 year old male with a PMHx significant for Hepatitis; Atrial Fib; Bipolar disorder; COPD; CHF; HLD, CAD; chronic back pain; Cirrhosis; Hypertension who presents with c\o of sob and cough that has been ongoing for the past 4 days. Patient was noted by significant other to be confused yesterday. Patient is currently AAOx1. Patient reported associated s\s of NAVARRO, dizziness, chest tightness, nausea, vomiting and fever. Patient denies any other s\s. Symptoms are aggravated or relieved by nothing. Patient decided to present to the ER due to worsening symptoms. Allergies Penicillins Allergy (Intermediate, Verified 09/09/20 23:52) Hives/Rash codeine [From Tylenol-Codeine] Allergy (Verified 09/09/20 23:52) Itching morphine Allergy (Verified 09/09/20 23:51) Itching oxycodone Allergy (Verified 09/09/20 23:52) Itching Home medications list reviewed: Yes Home Medications: Atorvastatin Calcium [Lipitor] 40 mg PO DAILY 12/18/20 Clonidine HCl [Catapres*] 0.2 mg PO Q6HP PRN 12/18/20 Gabapentin 600 mg PO BEDTIME 12/18/20 ALPRAZolam [Xanax*] 0.25 mg PO TID PRN #30 tab 12/19/20 Amitriptyline [Elavil*] 25 mg PO BEDTIME 12/19/20 Hydrocodone Bit/Acetaminophen [[place] 10-325 Tablet] 1 each PO Q6HP PRN #30 tablet 12/19/20 Pantoprazole [Protonix Tab] 40 mg PO DAILY #30 tab 02/18/21 - Past Medical/Surgical History Diabetic: No -: Chronic back pain -: HTN -: CAD, CABG times 2 vessels in December 2015 -: COPD -: Exposure to asbestosis -: Bipolar disorder -: Hyperlipidemia -: Severe sleep apnea -: Chronic pain syndrome -: CHF -: Atrial fibrillation on amiodarone-no anti coagulation therapy -: pneumonia -: Right Leg surgery -: Back surgery -: Cholecystectomy -: Cardiac catheterization 04/13 without stent placement -: CABG- Double bypass 12/2015 -: Neck Surgery -: Cervical fusion -: L4-L5-S1 fusion Psychosocial/ Personal History: Single, Children-1, Work-Disabled due to back. - Family History Mother -: Cancer Notes: Patient stated mother of breast cancer Father -: Heart disease, Cancer Notes: Patient stated father of stomach and bone cancer. - Social History Smoking Status: Unknown if ever smoked Alcohol use: No CD- Drugs: No Caffeine use: No Review of Systems General: Unremarkable Eyes: Unremarkable ENT: Unremarkable Respiratory: Cough, Shortness of Breath Gastrointestinal: Nausea, Vomiting Genitourinary: Unremarkable Musculoskeletal: Unremarkable Integumentary: Unremarkable Neurological: Other (NAVARRO, dizziness ) Physical Examination - Physical Exam General: Alert, Oriented x1 HEENT: Atraumatic, PERRLA, Mucous membr. moist/pink, EOMI, Sclerae nonicteric Neck: Supple, 2+ carotid pulse no bruit, No LAD, Without JVD or thyroid abnormality Respiratory: Normal air movement, Diminished Cardiovascular: Regular rate/rhythm, Normal S1 S2 Capillary refill: <2 Seconds Gastrointestinal: Normal bowel sounds, No tenderness Musculoskeletal: No clubbing, No swelling, No tenderness Integumentary: No rashes Neurological: Normal speech, Normal tone, Normal affect Lymphatics: No axilla or inguinal lymphadenopathy External genitalia: No edema Rectal: Normal - Studies Laboratory Data (last 24 hrs) 03/09/21 09:20: PT 11.9, INR 1.03, APTT 21.5 L 03/09/21 09:20: WBC 14.70 H, Hgb 12.0 L, Hct 36.4 L, Plt Count 226 03/09/21 09:20: Sodium 138, Potassium 3.8, BUN 11, Creatinine 1.23, Glucose 129 H, Total Bilirubin 0.5, AST 61 H, ALT 53, Alkaline Phosphatase 145 H, Amylase 20 L, Lipase 65 L Assessment and Plan - Plan --Pneumonia. As noted on CT imaging. Patient placed on antibiotics, steroids and Neb treatment with Albuterol\Atrovent. Continue O2 therapy --Acute encephalopathy. CT head negative for any acute intracranial abnormality. Ammonia level pending. Continue supportive care. --Acute on chronic COPD exacerbation. Continue current treatment regimen. --Atrial Fib. Continue Amiodarone and Coreg. --Bipolar disorder. Continue home meds --Liver cirrhosis. Stable. Continue supportive care. --Hypertension. Stable. Continue home medication. --Leukocytosis. Blood cultures pending. Continue antibiotics --HLD. Continue statin --GERD. Continue protonix --Hx of CAD and CABG. Continue Aspirin and statin --Chronic systolic or diastolic CHF. Stable. Daily weight and strict I\O. Continue home meds. --Chronic back pain. Will manage pain with current pain medication regiment --Nicotine dependence. patient will be counselled on tobacco cessation when fully alert. Patient placed on nicotine patch. --DVT prophylaxis with Lovenox subQ Discharge Plan: Home Plan to discharge in: Greater than 2 days - Advance Directives Does patient have a Living Will: Yes Does patient have a Durable POA for Healthcare: Yes - Code Status/Comfort Care Code Status Assessed: Yes Code Status: Full Code Critical Care: No
[2021-03-09] MEDS: ALBUTEROL 2.5 MG/3 ML NEB SOL NEB SCH ×2 (14:26→20:45)
[2021-03-09] MEDS: IPRATROPIUM BROM 0.5MG/2.5ML NEB SCH ×2 (14:26→20:45)
[2021-03-09] MEDS ORDERED: ALBUTEROL 2.5 MG/3 ML NEB SOL ONE (14:39)
[2021-03-09] MEDS ORDERED: IPRATROPIUM BROM 0.5MG/2.5ML ONE (14:40)
[2021-03-09] MEDS ORDERED: ENOXAPARIN 40 MG/0.4 ML SQ SCH (15:00)
[2021-03-09] MEDS ORDERED: NICOTINE 21 MG/PAT TD SCH (16:00)
[2021-03-09 18:01] VITALS: BMI 23.4
[2021-03-09] MEDS ORDERED: HYDROCODONE/APAP 10/325 TAB PO PRN (18:07)
[2021-03-09] MEDS: MORPHINE 2 MG/ML SYR IV PRN ×2 (19:01→23:33)
[2021-03-09] MEDS: METHYLPREDNISOLONE 40 MG INJ IV SCH (19:02)
[2021-03-09] MEDS: NA CHLORIDE 0.9% 1,000 ML IV SCH (19:07)
[2021-03-09 20:59] LABS: Protime INR 1.24
[2021-03-09] MEDS ORDERED: CEFEPIME/SWI 1gm 10 ML IV SCH (21:00)
[2021-03-09] MEDS ORDERED: CEFEPIME 1 GM/VIAL IV SCH (21:00)
[2021-03-09 21:11] LABS: Troponin I 0.03 ng/mL (0.0-0.045)
[2021-03-09 23:08] LABS: Urine Appearance CLEAR (Clear); Urine Bilirubin NEGATIVE (Negative); Urine Blood NEGATIVE (Negative); Urine Color YELLOW (Yellow); Urine Glucose 1+ (Negative); Urine Protein NEGATIVE (Negative); Urine Specific Gravity 1.015 (1.005-1.030); Urine Urobilinogen 0.2 mg/dL (0.2-1.0)
[2021-03-09] MEDS ORDERED: ALPRAZOLAM 0.25 MG TABLET PO PRN (23:47)
[2021-03-10] MEDS ORDERED: VANCOMYCIN 1.25 GM in NA CHLORIDE 0.9% 250 ML IVPB SCH ×2
[2021-03-10] MEDS ORDERED: VANCOMYCIN 1 GM/VIAL ONE (01:25)
[2021-03-10] MEDS ORDERED: NA CHLORIDE 0.9% 250 ML ONE (01:26)
[2021-03-10 01:34] LABS: Urine Bacteria <20 /HPF (NONE SEEN); Urine RBC <5 /HPF (NONE SEEN); Urine Urothelial Cells <5 /HPF (NONE SEEN)
[2021-03-10] MEDS: ALBUTEROL 2.5 MG/3 ML NEB SOL NEB SCH ×2 (02:10→08:20)
[2021-03-10] MEDS: IPRATROPIUM BROM 0.5MG/2.5ML NEB SCH ×2 (02:10→08:20)
[2021-03-10] MEDS: NA CHLORIDE 0.9% 1,000 ML IV SCH (03:20)
[2021-03-10] MEDS: MORPHINE 2 MG/ML SYR IV PRN (04:08)
[2021-03-10 04:33] LABS: Absolute Lymphocytes (CBC) 0.9 K/uL (0.7-4.9); Basophils % 0.1 % (0-1.3); Hematocrit 33.9 % (39.6-49.0); Lymphocytes % 6.2 % (15.3-44.8); MPV 10.1 fL (7.6-11.3)
[2021-03-10 05:18] LABS: C-Reactive Protein 68.6 mg/L (<3.00); Potassium 3.5 mmol/L (3.5-5.1)
[2021-03-10] MEDS: METHYLPREDNISOLONE 40 MG INJ IV SCH ×2 (06:06)
--- NOTE | 2021-03-10 07:37 | RAD REPORT ---
EXAM DESCRIPTION: [place] And Lat (2 Views)03/10/2021 6:09 am CLINICAL HISTORY: Cough COMPARISON: March 09, 2021 FINDINGS: Mild right basilar opacities unchanged Remainder lungs appear clear of acute infiltrate. Lungs are hyperaerated. The heart is normal size IMPRESSION: No change in mild right basilar lung opacities COPD
[2021-03-10] MEDS ORDERED: HYDRALAZINE HCL 20 MG/ML VIAL IV ONE (08:34)
--- NOTE | 2021-03-10 08:45 | P.CNS ---
Date of Consult: 03/10/21 Reason for Consult: COPD possible pneumonia Chief Complaint: SOB History of Present Illness: Patient is 60 years of age with a history of hepatitis atrial fibrillation COPD multiple other medical problems admitted with acute onset of cough shortness of breath for the past 4 days he is feeling better now back to his baseline History of sleep apnea compliant with CPAP uses bronchodilators at home Allergies Penicillins Allergy (Intermediate, Verified 09/09/20 23:52) Hives/Rash codeine [From Tylenol-Codeine] Allergy (Verified 09/09/20 23:52) Itching oxycodone Allergy (Verified 09/09/20 23:52) Itching Home Medications: Atorvastatin Calcium [Lipitor] 40 mg PO DAILY 12/18/20 Clonidine HCl [Catapres*] 0.2 mg PO Q6HP PRN 12/18/20 Gabapentin 600 mg PO BEDTIME 12/18/20 ALPRAZolam [Xanax*] 0.25 mg PO TID PRN #30 tab 12/19/20 Amitriptyline [Elavil*] 25 mg PO BEDTIME 12/19/20 Hydrocodone Bit/Acetaminophen [[place] 10-325 Tablet] 1 each PO Q6HP PRN #30 tablet 12/19/20 Pantoprazole [Protonix Tab] 40 mg PO DAILY #30 tab 02/18/21 - Past Medical/Surgical History Diabetic: No -: Chronic back pain -: HTN -: CAD, CABG times 2 vessels in December 2015 -: COPD -: Exposure to asbestosis -: Bipolar disorder -: Hyperlipidemia -: Severe sleep apnea -: Chronic pain syndrome -: CHF -: Atrial fibrillation on amiodarone-no anti coagulation therapy -: pneumonia -: Right Leg surgery -: Back surgery -: Cholecystectomy -: Cardiac catheterization 04/13 without stent placement -: CABG- Double bypass 12/2015 -: Neck Surgery -: Cervical fusion -: L4-L5-S1 fusion Psychosocial/ Personal History: Single, Children-1, Work-Disabled due to back. - Family History Mother Medical History: Cancer Notes: Patient stated mother of breast cancer Father Medical History: Heart disease, Cancer Notes: Patient stated father of stomach and bone cancer. - Social History Smoking Status: Unknown if ever smoked Alcohol use: No CD- Drugs: No Caffeine use: No Place of Residence: Home Review of Systems General: Weakness Respiratory: Cough, Shortness of Breath Physical Examination Temp Pulse Resp BP Pulse Ox 98 F 71 17 181/82 H 96 03/10/21 04:45 03/10/21 04:45 03/10/21 04:45 03/10/21 04:45 03/10/21 04:45 General: Alert, In no apparent distress, Oriented x3 Respiratory: Clear to auscultation bilaterally Cardiovascular: No edema, Regular rate/rhythm, Normal S1 S2 Gastrointestinal: Normal bowel sounds, Soft and benign Musculoskeletal: No clubbing, No swelling Laboratory Data (last 24 hrs) 03/09/21 09:20: PT 11.9, INR 1.03, APTT 21.5 L 03/09/21 09:20: WBC 14.70 H, Hgb 12.0 L, Hct 36.4 L, Plt Count 226 03/09/21 09:20: Sodium 138, Potassium 3.8, BUN 11, Creatinine 1.23, Glucose 129 H, Total Bilirubin 0.5, AST 61 H, ALT 53, Alkaline Phosphatase 145 H, Amylase 20 L, Lipase 65 L - Problems (1) COPD exacerbation Current Visit: Yes Status: Acute Plan: Patient is 60 years of age with a history of COPD the with some fever chills productive cough possible pneumonia chest x-ray possible right lower lobe pneumonia is white count is elevated recommend discharge on levofloxacin low- dose prednisone continue with bronchodilators BNP is elevated possible underlying heart failure patient has severe uncontrolled blood pressure possible non compliant these aggressive treatment for is blood pressure at spironolactone 25 mg daily plus Lasix 20 mg daily home medications not verified probably has underlying diastolic heart failure oxygenation satisfactory follow with me in 1 week
[2021-03-10] MEDS ORDERED: SPIRONOLACTONE 25 MG TABLET PO SCH (09:00)
[2021-03-10] MEDS ORDERED: POTASSIUM CL SA 10 MEQ TAB PO ONE (09:00)
[2021-03-10] MEDS ORDERED: ASPIRIN 81 MG CHEWABLE TABLET PO SCH (09:00)
[2021-03-10] MEDS ORDERED: cloNIDine HCL 0.1 MG TAB PO PRN (09:01)
[2021-03-10 09:10] VITALS: BP 188/86; TEMP 98.9
[2021-03-10 13:21] VITALS: O2SAT 97
--- NOTE | 2021-03-10 23:29 | P.DS ---
Admission Date: 03/09/21 Discharge Date: 03/10/21 Disposition: AMA-LEFT AGAINST MEDICAL ADVIC Discharge Condition: FAIR Reason for Admission: SOB Consultations: Pulmonology - Dr. Alvarenga Procedures: CXR (03/09): No dense consolidations seen. There is increased interstitial and patchy alveolar opacification in the lower right lung field. This is in part due to shallow inspiration. However, early right base pneumonia is suspected. Upper right lung field in the left lung field are clear. No acute failure or volume overload. Heart size is upper normal. Sternotomy wires are in place. No measurable pleural effusion and no pneumothorax. No acute bony abnormality seen. No acute aortic findings suspected. Suspected mild or early right lower lobe pneumonia. CT Head (03/09): Negative non-contrast CT head examination for acute finding. Cerebral white matter attenuation abnormality most likely chronic ischemic change. This is similar to comparison. CXR (03/10): Negative non-contrast CT head examination for acute finding. Cerebral white matter attenuation abnormality most likely chronic ischemic change. This is similar to comparison. Impression: No change in mild right basilar lung opacities. COPD Problem List: acute hypoxic respiratory failure secondary to acute on chronic COPD exacerbation acute on chronic combined systolic/diastolic CHF Community acquired pneumonmia Acute metabolic encephalopathy Chronic Atrial fibrillation Bipolar disorder Liver cirrhosis HTN GERD h/o CAD s/p CABG Chronic back pain on opiates Nicotine dependence Brief History of Present Illness: 60 year old male with a PMHx significant for Hepatitis; Atrial Fib; Bipolar disorder; COPD; CHF; HLD, CAD; chronic back pain; Cirrhosis; Hypertension who presents with c\o of sob and cough that has been ongoing for the past 4 days. Patient was noted by significant other to be confused yesterday. Patient is currently AAOx1. Patient reported associated s\s of NAVARRO, dizziness, chest tightness, nausea, vomiting and fever. Patient denies any other s\s. Symptoms are aggravated or relieved by nothing. Patient decided to present to the ER due to worsening symptoms. Hospital Course: Treated with empiric antibiotics, steroids, and nebulizers. CT head was negative. Patient had improvement within a few hours of admission and his encephalopathy had resolved. The following morning, he was breathing comfortably on room air. He had improved, however he still had significant hypertension. Patient was ordered anti-hypertensives, however refused. He requested IV pain medication and was denied any further. Patient became angry and refused any other medications. He pulled his IV out and eloped against medical advice. A prescription for an tibiotic and spironolactone were sent to his pharmacy. Vital Signs/Physical Exam: Physical Exam Gen: NAD, AAOx3 HEENT: normal conjunctiva, PERRL CV: regular rate/rhythm Pulm: CTAB, no wheeze, +diminished at bases, breathing comfortably on RA Abd: soft, NTND Ext: no rash, no edema, no joint tenderness Temp Pulse Resp BP Pulse Ox 98.9 F 79 18 188/86 H 99 03/10/21 08:00 03/10/21 08:00 03/10/21 08:00 03/10/21 08:00 03/10/21 08:00 Laboratory Data at Discharge: WBC 15.00 K/uL (4.3-10.9) H 03/10/21 04:06 Hgb 11.6 g/dL (13.6-17.9) L 03/10/21 04:06 Hct 33.9 % (39.6-49.0) L 03/10/21 04:06 Plt Count 182 K/uL (152-406) 03/10/21 04:06 PT 14.3 SECONDS (9.5-12.5) H 03/09/21 20:36 INR 1.24 03/09/21 20:36 APTT 21.5 SECONDS (24.3-36.9) L 03/09/21 09:20 Sodium 141 mmol/L (136-145) 03/10/21 04:06 Potassium 3.5 mmol/L (3.5-5.1) 03/10/21 04:06 BUN 16 mg/dL (7-18) 03/10/21 04:06 Creatinine 0.93 mg/dL (0.55-1.3) 03/10/21 04:06 Glucose 136 mg/dL (74-106) H 03/10/21 04:06 Total Bilirubin 0.5 mg/dL (0.2-1.0) 03/09/21 09:20 AST 61 U/L (15-37) H 03/09/21 09:20 ALT 53 U/L (12-78) 03/09/21 09:20 Alkaline Phosphatase 145 U/L (45-117) H 03/09/21 09:20 Troponin I 0.03 ng/mL (0.0-0.045) 03/09/21 20:36 Troponin I Cancelled 03/09/21 20:36 Amylase 20 U/L (25-115) L 03/09/21 09:20 Lipase 65 U/L (73-393) L 03/09/21 09:20 Home Medications: Atorvastatin Calcium [Lipitor] 40 mg PO DAILY 12/18/20 Clonidine HCl [Catapres*] 0.2 mg PO Q6HP PRN 12/18/20 Gabapentin 600 mg PO BEDTIME 12/18/20 ALPRAZolam [Xanax*] 0.25 mg PO TID PRN #30 tab 12/19/20 Amitriptyline [Elavil*] 25 mg PO BEDTIME 12/19/20 Hydrocodone Bit/Acetaminophen [[place] 10-325 Tablet] 1 each PO Q6HP PRN #30 tablet 12/19/20 Pantoprazole [Protonix Tab] 40 mg PO DAILY #30 tab 02/18/21 Levofloxacin [Levaquin] 500 mg PO DAILY 7 Days #7 tablet 03/10/21 Spironolactone [Aldactone] 25 mg PO DAILY 30 Days #30 tablet 03/10/21 New Medications: Spironolactone [Aldactone] 25 mg PO DAILY 30 Days #30 tablet Levofloxacin [Levaquin] 500 mg PO DAILY 7 Days #7 tablet Followup: NONE,NONE [Primary Care Provider] - Time spent managing pt's care (in minutes): 45
== END 2021-03-10 09:00 | disposition left against medical advice (07) ==
LOC: ER 09:01 → ERHOLD 11:40 → 2ND 16:25
PROVIDERS: ADMIT Hospitalist; ATTEND Hospitalist
DX: J96.01 Acute respiratory failure with hypoxia (principal); J44.1 Chronic obstructive pulmonary disease with (acute) exacerbation; I11.0 Hypertensive heart disease with heart failure; I50.43 Acute on chronic combined systolic (congestive) and diastolic (congestive) heart failure; J18.9 Pneumonia, unspecified organism; J44.0 Chronic obstructive pulmonary disease with (acute) lower respiratory infection; G93.41 Metabolic encephalopathy; Z20.822 Contact with and (suspected) exposure to COVID-19; I48.20 Chronic atrial fibrillation, unspecified; F31.9 Bipolar disorder, unspecified; K74.60 Unspecified cirrhosis of liver; R94.31 Abnormal electrocardiogram [ECG] [EKG]; K21.9 Gastro-esophageal reflux disease without esophagitis; I25.10 Atherosclerotic heart disease of native coronary artery without angina pectoris; Z95.1 Presence of aortocoronary bypass graft; M54.9 Dorsalgia, unspecified; G89.29 Other chronic pain; Z79.891 Long term (current) use of opiate analgesic; E78.5 Hyperlipidemia, unspecified; G47.30 Sleep apnea, unspecified; F17.200 Nicotine dependence, unspecified, uncomplicated
CPT/HCPCS: 36415; 70450; 71045; 71046; 80048; 80076; 81001; 82140; 82150; 82550; 82553; 83605; 83690; 83880; 84145; 84484; 85025; 85610; 85730; 86140; 87040; 93005; 94640; 96365; 96367; 96375; 99285; G0378; J0360; J0692; J1650; J2270; J2920; J2930; J3370; J7030; J7050; U0003

== ENCOUNTER 2021-08-02 18:12 | Observation (INO) | payer OTHER ==
[2021-08-02 18:48] LABS: Absolute Lymphocytes (CBC) 1.1 K/uL (0.7-4.9); Basophils % 0.4 % (0-1.3); MPV 9.3 fL (7.6-11.3); RBC Red Blood Cell Count 4.97 M/uL (4.33-5.43)
--- NOTE | 2021-08-02 18:51 | RAD REPORT ---
EXAM DESCRIPTION: RAD - Chest Single View - 08/02/2021 6:40 pm CLINICAL HISTORY: CHEST PAIN Chest pain. COMPARISON: Chest Pa And Lat (2 Views) dated 03/10/2021; Chest Single View dated 03/09/2021; Chest Sin gle View dated 02/19/2021; Chest Single View dated 12/18/2020 FINDINGS: Portable technique limits examination quality. The lungs are grossly clear. The heart is normal in size. No displaced fractures.Sternotomy wires pre sent. IMPRESSION: No acute intrathoracic process suspected.
[2021-08-02 18:59] LABS: Albumin 4.2 g/dL (3.4-5.0); Bilirubin Direct 0.2 mg/dL (0-0.2); Bilirubin Total 0.5 mg/dL (0.2-1.0); Magnesium 2.5 mg/dL (1.8-2.4); Potassium 3.5 mmol/L (3.5-5.1); Troponin (Emerg Dept Use Only) 0.03 ng/mL (0.0-0.045)
[2021-08-02] MEDS ORDERED: MORPHINE 4 MG/ML SYR ONE ×4 (18:59→23:32)
[2021-08-02] MEDS ORDERED: LABETALOL 20 MG/4ML SYRINGE IV ONE (19:00)
[2021-08-02] MEDS ORDERED: ONDANSETRON 4 MG/2 ML VIAL ONE ×4 (19:01→23:31)
[2021-08-02 19:26] LABS: Protime INR 1.21
[2021-08-02 20:23] LABS: Blood Morphology Comment NOT SEEN (NOT SEEN); Platelet Estimate ADEQ; White Blood Cell Scan OK (OK)
--- NOTE | 2021-08-02 21:19 | ER ---
Nurse's Notes [facility] Name: Blayne Macias Age: 60 yrs Sex: Male : 1960 Arrival Date: 08/02/2021 Time: 18:20 Bed 18 Private MD: Diagnosis: Chest pain, unspecified;Hypertensive heart disease without heart failure Presentation: 08/02 18:21 Chief complaint: Patient states: chest pain that began this morning, has gotten worse. ss Also reports N/V. Coronavirus screen: Client denies travel out of the [place] in the last 14 days. Ebola Screen: Patient denies exposure to infectious person. Patient denies travel to an Ebola-affected area in the 21 days before illness onset. Onset of symptoms was August 02, 2021. 18:21 Method Of Arrival: EMS: [facility] 18:21 Acuity: SENTHIL 2 18:25 Initial Sepsis Screen: Does the patient meet any 2 criteria? No. Patient's initial ch5 sepsis screen is negative. Does the patient have a suspected source of infection? No. Patient's initial sepsis screen is negative. Risk Assessment: Do you want to hurt yourself or someone else? Patient reports no desire to harm self or others. Triage Assessment: 21:06 General: Appears distressed, uncomfortable, Behavior is calm, cooperative, appropriate wg for age. Cardiovascular: Reports chest pain, nausea. GI: Reports nausea. Historical: - Allergies: 18:22 Codeine; ss 18:22 Morphine; ss 18:22 PENICILLINS; ss - PMHx: 18:22 "electrical stimulator"; Bipolar disorder; Atrial Fib; Hepatitis; COPD; Cirrhosis; ss chronic back pain; Back pain; High Cholesterol; CHF; CAD; Hypertension; Pneumonia; Screenin:21 Abuse screen: Denies threats or abuse. Nutritional screening: No deficits noted. ch5 Tuberculosis screening: No symptoms or risk factors identified. Fall Risk None identified. Assessment: 18:10 Reassessment: Pt was brought in by EMS for N/V and developing chest pain. Pt BP ch5 226/115. ASA given [employer]. 18:24 Reassessment: provider MAMI Delgadillo at bedside at this time. tw2 18:44 Reassessment: Medicated as ordered. Pt Comfortable with call light in reach and ch5 monitors on.. 19:05 Pain: Complains of pain in anterior aspect of right upper chest, anterior aspect of ch5 left upper chest, right breast and left breast Pain currently is 9 out of 10 on a pain scale. Pain began 1000am. GI: Reports nausea, vomiting. 20:36 Reassessment: Pt states his nausea and pain has increased. Pt requesting something for wg both. Barbie Doherty made aware. 21:40 Reassessment: Patient appears in no apparent distress at this time. Patient is alert, wg oriented x 3, equal unlabored respirations, skin warm/dry/pink. Pt states he is still having quite a bit of pain however it has improved from earlier. States he is supposed to have a pain pump with dilaudid installed this week and is requesting dilaudid now. Barbie Doherty made aware. Cherelle Walker at bedside evaluating for admission. Vital Signs: 18:21 BP 207 / 104; Pulse 91; Resp 17; Temp 98.5(TE); Pulse Ox 100% on R/A; tw2 19:46 BP 193 / 90; Pulse 74; Resp 18; Pulse Ox 98% on R/A; Pain 4/10; wg 20:20 BP 196 / 90; Pulse 78; Resp 18; Pulse Ox 99% on R/A; Pain 8/10; wg 21:06 BP 193 / 81; Pulse 81; Resp 18; Pulse Ox 99% on R/A; Pain 4/10; wg 21:15 BP 209 / 101; Pulse 82; Resp 18; Pulse Ox 99% on R/A; Pain 6/10; wg 21:36 BP 189 / 89; Pulse 84; Resp 18; Pulse Ox 99% on R/A; Pain 6/10; wg 22:51 BP 166 / 81; Pulse 90; Resp 18; Pulse Ox 99% on R/A; Pain 4/10; wg 23:30 BP 166 / 80; Pulse 82; Resp 18; Pulse Ox 99% on R/A; Pain 6/10; wg Vitals: 19:46 Cardiac Rhythm Assessment Regular Sinus rhythm. wg 21:06 Cardiac Rhythm Assessment Regular Sinus rhythm. wg ED Course: 18:20 Patient arrived in ED. ch5 18:21 Triage completed. ss 18:21 Arm band placed on. ch5 18:21 Bed in low position. Call light in reach. Side rails up X2. recreational counselor on. Pulse 5 ox on. NIBP on. 18:23 Michael Doherty PA is PHCP. cp 18:23 Peng Mitchell MD is Attending Physician. cp 18:23 Gus Rush, DIANA is Primary Nurse. ch5 18:25 No provider procedures requiring assistance completed. ch5 18:25 Inserted saline lock: 20 gauge in right antecubital area, using aseptic technique. wg 18:29 Basic Metabolic Panel Sent. ch5 18:30 Basic Metabolic Panel Sent. ch5 18:30 CBC with Diff Sent. ch5 18:30 LFT's Sent. ch5 18:30 Magnesium Sent. ch5 18:30 NT PRO-BNP Sent. ch5 18:30 PT-INR Sent. ch5 18:30 Troponin (emerg Dept Use Only) Sent. ch5 18:36 XRAY Chest (1 view) Sent. ch5 18:40 XRAY Chest (1 view) In Process Unspecified. EDMS 19:46 Primary Nurse role handed off by Gus Rush, DIANA 19:46 Levar Gill RN is Primary Nurse. wg 20:29 CBC Smear Scan Sent. wg 21:17 Lenny Walker PA is Hospitalizing Provider. cp 21:38 COVID-19 : Document "Date of Symptom Onset" if Symptomatic. Sent. wg 21:49 CORONAVIRUS Sent. 08/03 00:35 Qing Anders MD is Hospitalizing Provider. cp Administered Medications: 08/02 15:00 Drug: morphine 4 mg Route: IVP; Infused Over: 2 mins; Site: right antecubital; 23:01 Follow up: Response: No adverse reaction; Pain is decreased wg 18:43 Drug: morphine 4 mg Route: IVP; Site: right antecubital; ch5 21:11 Follow up: Response: No adverse reaction wg 18:43 Drug: Zofran (Ondansetron) 4 mg Route: IVP; Site: right antecubital; ch5 21:11 Follow up: Response: No adverse reaction wg 18:43 Not Given (Had [employer]): Aspirin Chewable Tablet 324 mg PO once; 81 mg tablets x 4 ch5 18:43 Drug: Trandate (labetalol) 20 mg Route: IVP; Site: right antecubital; ch5 21:11 Follow up: Response: No adverse reaction wg 20:25 Drug: morphine 4 mg Route: IVP; Infused Over: 2 mins; Site: right antecubital; 21:10 Follow up: Response: No adverse reaction; Pain is decreased 20:25 Drug: Zofran (Ondansetron) 4 mg Route: IVP; Infused Over: 2 mins; Site: right wg antecubital; 21:10 Follow up: Response: No adverse reaction; Nausea is decreased 21:25 Drug: hydrALAZINE 10 mg Route: IVP; Infused Over: 2 mins; Site: right antecubital; wg 08/03 00:15 Follow up: Response: No adverse reaction 08/02 21:50 Drug: Zofran (Ondansetron) 4 mg Route: IVP; Infused Over: 2 mins; Site: right wg antecubital; 23:01 Follow up: Response: No adverse reaction; Nausea is decreased Outcome: 21:18 Decision to Hospitalize by Provider. 08/03 00:14 Admitted to Tele accompanied by tech, via stretcher, room 223, Report called to elida Galvez RN 01:14 Patient left the ED. Signatures: Dispatcher [employer] EDMS Riya Bryan RN RN ss Michael Doherty PA PA Cristina Mckeon RN RN 2 Gus Rush RN RN ch5 Gamba, Liam, RN wg Corrections: (The following items were deleted from the chart) 08/02 18:24 18:21 BP 207 / 104; Pulse 91bpm; Resp 17bpm; Pulse Ox 100% RA; anika tw2 19: 18:23 Reassessment: anika donaldson 21:08 21:06 Pain 4/10; elida wg 21:12 18:40 Inserted saline lock: 20 gauge in right antecubital area, using aseptic technique. wg
--- NOTE | 2021-08-02 21:19 | EDPHYS ---
Physician Documentation [facility] Name: Blayne Macias Age: 60 yrs Sex: Male : 1960 Arrival Date: 08/02/2021 Time: 18:20 Bed 18 Private MD: ED Physician Peng Mitchell HPI: 08/02 18:30 This 60 yrs old Male presents to ER via EMS with complaints of Chest Pain > cp 28 y/o. 18:30 The patient or guardian reports chest pain that is located primarily in the anterior cp chest wall, left. 18:30 Onset: this morning, today. cp 18:30 Associated signs and symptoms: Pertinent positives: nausea, Pertinent negatives: cp abdominal pain, cough, diaphoresis, lower extremity pain, lower extremity swelling, syncope, vomiting. 18:30 The chest pain is described as constant, similar to pain with previous [place]. Duration: cp The patient or guardian reports a single episode, that is still ongoing. Historical: - Allergies: 18:22 Codeine; ss 18:22 Morphine; ss 18:22 PENICILLINS; ss - PMHx: 18:22 "electrical stimulator"; Bipolar disorder; Atrial Fib; Hepatitis; COPD; Cirrhosis; ss chronic back pain; Back pain; High Cholesterol; CHF; CAD; Hypertension; Pneumonia; ROS: 18:35 Constitutional: Negative for body aches, chills, fever, poor PO intake. cp 18:35 Cardiovascular: Positive for chest pain, Negative for edema, palpitations. cp 18:35 Respiratory: Negative for cough, wheezing. 18:35 Abdomen/GI: Negative for abdominal pain, nausea, vomiting, and diarrhea, constipation. 18:35 Eyes: Negative for injury, pain, redness, and discharge. cp 18:35 ENT: Negative for ear pain, sore throat, difficulty swallowing, difficulty handling cp secretions. 18:35 Back: Negative for radiated pain. 18:35 Skin: Negative for cellulitis, rash. 18:35 Neuro: Negative for altered mental status, headache, numbness, syncope, weakness. 18:35 All other systems are negative. Exam: 18:35 ECG was reviewed by the Attending Physician. cp 18:40 Constitutional: The patient appears in no acute distress, alert, awake, cp non-diaphoretic, non-toxic, well developed, well nourished, uncomfortable. 18:40 Head/Face: Normocephalic, atraumatic. cp 18:40 Eyes: Periorbital structures: appear normal, Conjunctiva: normal, no exudate, no injection, Sclera: no appreciated abnormality, Lids and lashes: appear normal, bilaterally. 18:40 ENT: External ear(s): are unremarkable, Nose: is normal, Mouth: Lips: moist, Oral mucosa: pink and intact, moist, Posterior pharynx: Airway: no evidence of obstruction, patent. 18:40 Neck: ROM/movement: is normal, is supple, without pain, no range of motions limitations. 18:40 Chest/axilla: Inspection: normal, Palpation: is normal, no crepitus, no tenderness. 18:40 Cardiovascular: Rate: normal, Rhythm: regular, Pulses: Pulses are 2+ in right radial artery and left radial artery. Edema: is not appreciated, JVD: is not appreciated. 18:40 Respiratory: the patient does not display signs of respiratory distress, Respirations: normal, no use of accessory muscles, no retractions, labored breathing, is not present, Breath sounds: are clear throughout, no decreased breath sounds, no stridor, no wheezing. 18:40 Abdomen/GI: Inspection: abdomen appears normal, Bowel sounds: active, all quadrants, Palpation: abdomen is soft and non-tender, in all quadrants. 18:40 Back: pain, is absent, ROM is normal. 18:40 Neuro: Orientation: to person, place \\T\\ time. Mentation: is normal, Motor: moves all fours, strength is normal, Sensation: no obvious gross deficits. 19:07 ECG was reviewed by the Attending Physician. cp Vital Signs: 18:21 BP 207 / 104; Pulse 91; Resp 17; Temp 98.5(TE); Pulse Ox 100% on R/A; tw2 19:46 BP 193 / 90; Pulse 74; Resp 18; Pulse Ox 98% on R/A; Pain 4/10; wg 20:20 BP 196 / 90; Pulse 78; Resp 18; Pulse Ox 99% on R/A; Pain 8/10; wg 21:06 BP 193 / 81; Pulse 81; Resp 18; Pulse Ox 99% on R/A; Pain 4/10; wg 21:15 BP 209 / 101; Pulse 82; Resp 18; Pulse Ox 99% on R/A; Pain 6/10; wg 21:36 BP 189 / 89; Pulse 84; Resp 18; Pulse Ox 99% on R/A; Pain 6/10; wg 22:51 BP 166 / 81; Pulse 90; Resp 18; Pulse Ox 99% on R/A; Pain 4/10; wg 23:30 BP 166 / 80; Pulse 82; Resp 18; Pulse Ox 99% on R/A; Pain 6/10; wg MDM: 18:30 Patient medically screened. cp 19:00 Differential diagnosis: acute myocardial infarction, congestive heart failure cp pericarditis, pneumonia, pneumothorax, pulmonary embolus, stable angina, unstable angina. 21:15 Data reviewed: vital signs, nurses notes, lab test result(s), EKG, radiologic studies, cp plain films. 21:15 Test interpretation: by ED physician or midlevel provider: ECG, plain radiologic cp studies. Counseling: I had a detailed discussion with the patient and/or guardian regarding: the historical points, exam findings, and any diagnostic results supporting the discharge/admit diagnosis, lab results, radiology results, the need for further work-up and treatment in the hospital. Response to treatment: the patient's symptoms have mildly improved after treatment. Physician consultation: Lenny BOLAÑOS was called at 21:10, was contacted at 21:10, regarding admission, to the telemetry unit. patient's condition. 08/02 18:27 Order name: Basic Metabolic Panel cp 08/02 18:27 Order name: CBC with Diff cp 08/02 19:03 Interpretation: Normal except: WBC 12.30; GLYNN% 86.6; LYM% 9.0; NEUT A 10.6. cp 08/02 18:27 Order name: LFT's; Complete Time: 19:03 cp 08/02 19:04 Interpretation: Normal except: TP 9.0; GLOB 4.8; A/G 0.9. cp 08/02 18:27 Order name: Magnesium; Complete Time: 19:03 cp 08/02 18:27 Order name: NT PRO-BNP; Complete Time: 19:03 cp 08/02 19:04 Interpretation: Abnormal: NT PRO-BNP 4121. cp 08/02 18:27 Order name: PT-INR; Complete Time: 20:26 cp 08/02 18:27 Order name: Troponin (emerg Dept Use Only); Complete Time: 19:03 cp 10 19:05 Interpretation: TROPED 0.03; Reviewed. cp 08/02 18:27 Order name: XRAY Chest (1 view); Complete Time: 19:03 cp 08/02 18:27 Order name: Basic Metabolic Panel; Complete Time: 19:03 EDMS 08/02 19:04 Interpretation: Normal except: CL 109; GLUC 142; GFR 64. cp 08/02 20:23 Order name: CBC Smear Scan EDMS 08/02 21:25 Order name: COVID-19 : Document "Date of Symptom Onset" if Symptomatic. em 08/02 21:41 Order name: CORONAVIRUS EDMS 08/02 22:36 Order name: SARS-COV-2 RT PCR; Complete Time: 00:35 EDMS 08/02 23:40 Order name: Troponin I; Complete Time: 00:35 EDMS 08/02 18:27 Order name: EKG; Complete Time: 18:28 cp 08/02 18:27 Order name: Cardiac monitoring; Complete Time: 18:30 cp 08/02 18:27 Order name: EKG - Nurse/Tech; Complete Time: 18:30 cp 08/02 18:27 Order name: IV Saline Lock; Complete Time: 18:30 cp 08/02 18:27 Order name: Labs collected and sent; Complete Time: 18:30 cp 08/02 18:27 Order name: O2 Per Protocol; Complete Time: 18:30 cp 08/02 21:13 Order name: CONS Physician Consult; Complete Time: 21:38 EDMS 08/02 18:27 Order name: O2 Sat Monitoring; Complete Time: 18:30 cp EC:35 Rate is 79 beats/min. Rhythm is regular. WA interval is normal. QRS interval is cp prolonged at 106 msec. QT interval is normal. Interpreted by me. Reviewed by me. 19:07 Rate is 64 beats/min. Rhythm is regular. WA interval is normal. QRS interval is cp prolonged at 108 msec. QT interval is normal. Interpreted by me. Reviewed by me. Administered Medications: 15:00 Drug: morphine 4 mg Route: IVP; Infused Over: 2 mins; Site: right antecubital; wg 23:01 Follow up: Response: No adverse reaction; Pain is decreased wg 18:43 Drug: morphine 4 mg Route: IVP; Site: right antecubital; 5 21:11 Follow up: Response: No adverse reaction 18:43 Drug: Zofran (Ondansetron) 4 mg Route: IVP; Site: right antecubital; 5 21:11 Follow up: Response: No adverse reaction wg 18:43 Not Given (Had [employer]PER[employer]OR [employer]): Aspirin Chewable Tablet 324 mg PO once; 81 mg tablets x 4 ch5 18:43 Drug: Trandate (labetalol) 20 mg Route: IVP; Site: right antecubital; 5 21:11 Follow up: Response: No adverse reaction 20:25 Drug: morphine 4 mg Route: IVP; Infused Over: 2 mins; Site: right antecubital; 21:10 Follow up: Response: No adverse reaction; Pain is decreased wg 20:25 Drug: Zofran (Ondansetron) 4 mg Route: IVP; Infused Over: 2 mins; Site: right wg antecubital; 21:10 Follow up: Response: No adverse reaction; Nausea is decreased 21:25 Drug: hydrALAZINE 10 mg Route: IVP; Infused Over: 2 mins; Site: right antecubital; 08/03 00:15 Follow up: Response: No adverse reaction 08/02 21:50 Drug: Zofran (Ondansetron) 4 mg Route: IVP; Infused Over: 2 mins; Site: right wg antecubital; 23:01 Follow up: Response: No adverse reaction; Nausea is decreased Disposition Summary: 08/02/21 21:18 Hospitalization Ordered Hospitalization Status: Observation cp Location: Telemetry/[facility] (observation) cp Condition: Stable cp Problem: new cp Symptoms: have improved cp Bed/Room Type: Standard cp Room Assignment: 223(08/02/21 23:13) Provider: Qing Anders(08/03/21 00:35) cp Diagnosis - Chest pain, unspecified cp - Hypertensive heart disease without heart failure cp Forms: - Medication Reconciliation Form cp - SBAR form cp Addendum: 08/07/2021 00:01 Co-signature as Attending Physician, Peng Mitchell MD I agree with the assessment and r n plan of care. Attestation: The patient's history, exam findings, diagnostics, and a summary of any interventions or procedures was reviewed in detail with Michael BOLAÑOS. Signatures: Dispatcher [employer] Monika Braga RN RN mw Nieto, Roman, MD MD rn Smirch, Shelby, RN RN ss Page, Corey, PA PA cp Heath, Christopher, RN RN ch5 Levar Gill RN wg Corrections: (The following items were deleted from the chart) 08/02 23:13 21:18 cp mw 08/03 00:35 08/02 21:18 Lenny Walker cp, cp 08/04 00:34 08/02 18:30 Onset: today, cp cp
[2021-08-02] MEDS ORDERED: HYDRALAZINE HCL 20 MG/ML VIAL ONE (21:45)
--- NOTE | 2021-08-02 21:56 | P.HP ---
Certification for Inpatient Patient admitted to: Observation With expected LOS: <2 Midnights Patient will require the following post-hospital care: None Practitioner: I am a practitioner with admitting privileges, knowledge of patient current condition, hospital course, and medical plan of care. Services: Services provided to patient in accordance with Admission requirements found in Title 42 Section 412.3 of the Code of Federal Regulations <Lenny Walker - Last Filed: 08/02/21 21:48> Patient History Date of Service: 08/02/21 Reason for admission: chest pain History of Present Illness: Mr. Macias is a 60 yo M with CAD, HTN, HLD, CHF who presents with 10/10 constant sternal chest pressure beginning today at 10am while he was sitting in his recliner. He also reports nausea, vomiting, diaphoresis, headache and palpitations. Blood pressure was elevated to 200/100s upon arrival. 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 Last stress test in EMR was in November. Initial troponin negative. Admitted for ACS rule out. - Past Medical/Surgical History Diabetic: No -: Chronic back pain -: HTN -: CAD, CABG times 2 vessels in December 2015 -: COPD -: Exposure to asbestosis -: Bipolar disorder -: Hyperlipidemia -: Severe sleep apnea -: Chronic pain syndrome -: CHF -: Atrial fibrillation on amiodarone-no anti coagulation therapy -: pneumonia -: Right Leg surgery -: Back surgery -: Cholecystectomy -: Cardiac catheterization 04/13 without stent placement -: CABG- Double bypass 12/2015 -: Neck Surgery -: Cervical fusion -: L4-L5-S1 fusion Psychosocial/ Personal History: Single, Children-1, Work-Disabled due to back. - Family History Mother -: Cancer Notes: Patient stated mother of breast cancer Father -: Heart disease, Cancer Notes: Patient stated father of stomach and bone cancer. - Social History Smoking Status: Unknown if ever smoked Alcohol use: No CD- Drugs: No Caffeine use: No Place of Residence: Home <Lenny Walker - Last Filed: 08/02/21 21:48> Date of Service: 08/02/21 <Qing Anders - Last Filed: 08/11/21 15:49> Allergies Penicillins Allergy (Intermediate, Verified 09/09/20 23:52) Hives/Rash codeine [From Tylenol-Codeine] Allergy (Verified 09/09/20 23:52) Itching oxycodone Allergy (Verified 09/09/20 23:52) Itching Home Medications: Atorvastatin Calcium [Lipitor] 40 mg PO DAILY 12/18/20 Clonidine HCl [Catapres*] 0.2 mg PO Q6HP PRN 12/18/20 Gabapentin 600 mg PO BEDTIME 12/18/20 ALPRAZolam [Xanax*] 0.25 mg PO TID PRN #30 tab 12/19/20 Amitriptyline [Elavil*] 25 mg PO BEDTIME 12/19/20 Hydrocodone Bit/Acetaminophen [[place] 10-325 Tablet] 1 each PO Q6HP PRN #30 tablet 12/19/20 Pantoprazole [Protonix Tab] 40 mg PO DAILY #30 tab 02/18/21 Levofloxacin [Levaquin] 500 mg PO DAILY 7 Days #7 tablet 03/10/21 Spironolactone [Aldactone] 25 mg PO DAILY 30 Days #30 tablet 03/10/21 Review of Systems 10-point ROS is otherwise unremarkable General: Sweats Cardiovascular: Chest Pain, Palpitations Gastrointestinal: Nausea, Vomiting <Lenny Walker - Last Filed: 08/02/21 21:48> Physical Examination - Physical Exam General: Alert, In no apparent distress HEENT: Atraumatic, PERRLA, Mucous membr. moist/pink, EOMI, Sclerae nonicteric Neck: Supple, 2+ carotid pulse no bruit, No LAD, Without JVD or thyroid abnormality Respiratory: Clear to auscultation bilaterally, Normal air movement Cardiovascular: Regular rate/rhythm, Normal S1 S2 Gastrointestinal: Normal bowel sounds, No tenderness Musculoskeletal: No tenderness Integumentary: No rashes Neurological: Normal gait, Normal speech, Normal strength at 5/5 x4 extr, Normal tone, Normal affect Lymphatics: No axilla or inguinal lymphadenopathy - Studies Laboratory Data (last 24 hrs) 08/02/21 19:14: PT 13.9 H, INR 1.21 08/02/21 18:30: WBC 12.30 H, Hgb 14.9, Hct 45.0, Plt Count 327 08/02/21 18:30: Sodium 141, Potassium 3.5, BUN 17, Creatinine 1.15, Glucose 142 H, Magnesium 2.5 H, Total Bilirubin 0.5, AST 19, ALT 20, Alkaline Phosphatase 52 <Lenny Walker - Last Filed: 08/02/21 21:48> Assessment and Plan - Problems (Diagnosis) (1) Chest pain Onset Date: 07/22/18 Status: Acute Qualifiers: Chest pain type: unspecified Qualified Code(s): R07.9 - Chest pain, unspecified (2) Coronary artery disease Status: Chronic Qualifiers: Coronary Disease-Associated Artery/Lesion type: bypass graft [place]ol[place] vs. transplanted heart: [place] heart Associated angina: with unstable angina Qualified Code(s): I25.700 - Atherosclerosis of coronary artery bypass graft(s), unspecified, with unstable angina pectoris (3) History of coronary artery bypass graft Status: Chronic (4) Hypertensive urgency Status: Acute (5) CHF (congestive heart failure) Onset Date: 01/20/16 Status: Chronic Qualifiers: Heart failure type: unspecified Heart failure chronicity: chronic Qualified Code(s): I50.9 - Heart failure, unspecified (6) COPD (chronic obstructive pulmonary disease) Onset Date: 01/20/16 Status: Chronic Qualifiers: COPD type: unspecified COPD Qualified Code(s): J44.9 - Chronic obstructive pulmonary disease, unspecified (7) Chronic back pain Onset Date: 10/27/16 Status: Chronic - Plan cardiology consulted on tele, repeat EKG, trend troponins daily ASA, statin, BB, prn morphine and NTG hydralazine PRN for BP spikes reconcile and continue home medications DVT ppx Discharge Plan: Home Plan to discharge in: 24 Hours - Advance Directives Does patient have a Living Will: No Does patient have a Durable POA for Healthcare: Yes - Code Status/Comfort Care Code Status Assessed: Yes (full code ) Critical Care: No Time Spent Managing Pts Care (In Minutes): 70 <Lenny Walker - Last Filed: 08/02/21 21:48> Date of Service: 08/02/21 Subjective: Agree with HPI as mentioned above Physical Examination: Vitals: Afebrile vital signs are stable Physical exam: Cardiovascular: Within normal limits. Lungs: Within normal limits Abdomen: Within normal limits Neuro: Awake, alert, oriented to person place and time Assessment: 1. Chest pain rule out acute coronary syndrome Plan: 1. Serial troponins and EKG 2. Appreciate Cardiology consultation 3. Echocardiogram and stress test if cardiology is agreeable 4. Anti-platelet therapy, anti coagulation, beta-jaime, statin, and O2 as needed 5. IV morphine for pain 6. Nitro p.r.n. <Qing Anders - Last Filed: 08/11/21 15:49>
[2021-08-02] MEDS ORDERED: ACETAMINOPHEN 500 MG TAB PO PRN (22:49)
[2021-08-02] MEDS ORDERED: ONDANSETRON 4 MG/2 ML VIAL IV PRN (22:49)
[2021-08-02] MEDS ORDERED: NITROGLYCERIN 0.4 MG/TAB SL PRN (22:49)
[2021-08-02] MEDS ORDERED: HYDRALAZINE HCL 20 MG/ML VIAL IV PRN (22:49)
[2021-08-02] MEDS ORDERED: METOPROLOL TAR 50 MG TAB PO SCH (22:49)
[2021-08-02] MEDS ORDERED: METOPROLOL TAR 50 MG TAB ONE (23:31)
[2021-08-02] MEDS: MORPHINE 4 MG/ML SYR IV PRN (23:38)
[2021-08-02 23:42] VITALS: TEMP 97.9
[2021-08-02] MEDS ORDERED: INFLUENZA VACCINE (for 6+ mo) 0.5 ML DOSE IMVAC ONE (23:55)
[2021-08-02] MEDS ORDERED: PNEUMOCOCCAL VACCINE 0.5 ML IMVAC ONE (23:55)
[2021-08-03] MEDS ORDERED: HYDRALAZINE HCL 20 MG/ML VIAL IV ONE (00:45)
[2021-08-03] MEDS ORDERED: HYDROMORPHONE HCL 0.5 MG/0.5 ML INJ IV ONE (00:45)
[2021-08-03] MEDS ORDERED: HYDRALAZINE HCL 20 MG/ML VIAL IV PRN (00:57)
[2021-08-03 01:06] VITALS: BP 172/80
[2021-08-03] MEDS ORDERED: HYDRALAZINE HCL 20 MG/ML VIAL ONE (01:11)
[2021-08-03] MEDS ORDERED: HYDROMORPHONE HCL 0.5 MG/0.5 ML INJ ONE (01:12)
[2021-08-03 01:25] VITALS: BMI 20.5
[2021-08-03] MEDS ORDERED: ONDANSETRON 4 MG/2 ML VIAL IV ONE (02:16)
[2021-08-03] MEDS: MORPHINE 4 MG/ML SYR IV PRN (03:08)
[2021-08-03 03:13] VITALS: O2SAT 97
[2021-08-03 03:52] LABS: Absolute Lymphocytes (CBC) 1.9 K/uL (0.7-4.9); Basophils % 1.1 % (0-1.3); Hematocrit 45.6 % (39.6-49.0); Lymphocytes % 15.4 % (15.3-44.8); MPV 9.4 fL (7.6-11.3); RBC Red Blood Cell Count 4.97 M/uL (4.33-5.43)
[2021-08-03] MEDS ORDERED: INSULIN -REGULAR HUMAN 50 UNIT/0.5 ML ML SQ SCH (07:30)
[2021-08-03] MEDS ORDERED: ASPIRIN EC 81 MG TAB PO SCH (09:00)
[2021-08-03] MEDS ORDERED: ENOXAPARIN 40 MG/0.4 ML SQ SCH (09:00)
[2021-08-03] MEDS ORDERED: ATORVASTATIN 40 MG TAB PO SCH (21:00)
--- NOTE | 2021-08-04 07:09 | EKG ---
Test Date: 2021-08-02 Test Time: 19:02:29 Docketing Specialist: OSKAR MEASUREMENT RESULTS: Intervals: Rate: 64 AL: 178 QRSD: 108 QT: 456 QTc: 470 [place]: P: 71 AL: 178 QRS: 56 T: 230 INTERPRETIVE STATEMENTS: Normal sinus rhythm Incomplete right bundle branch block Left ventricular hypertrophy with repolarization abnormality Cannot rule out Septal infarct, age undetermined Abnormal ECG Compared to ECG 08/02/2021 18:32:00 Incomplete right bundle-branch block now present Left ventricular hypertrophy now present Early repolarization now present Ventricular premature complex(es) no longer present Myocardial infarct finding still present Electronically Signed On 08-04-21 07:04:55 CDT by Ghulam Berrios
--- NOTE | 2021-08-11 15:51 | P.DS ---
Discharge Date: 08/03/21 Disposition: AMA-LEFT AGAINST MEDICAL ADVIC Discharge Condition: FAIR Reason for Admission: chest pain Brief History of Present Illness: Mr. Macias is a 60 yo M with CAD, HTN, HLD, CHF who presents with 10/10 constant sternal chest pressure beginning today at 10am while he was sitting in his recliner. He also reports nausea, vomiting, diaphoresis, headache and palpitations. Blood pressure was elevated to 200/100s upon arrival. 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 Last stress test in EMR was in November. Initial troponin negative. Admitted for ACS rule out. Hospital Course: Patient left against medical advice Vital Signs/Physical Exam: Temp Pulse Resp BP Pulse Ox 97.9 F 80 18 172/80 H 99 08/02/21 23:41 08/03/21 00:30 08/03/21 01:04 08/03/21 01:04 08/03/21 01:04 General: Alert, In no apparent distress, Oriented x3 Laboratory Data at Discharge: WBC 12.00 K/uL (4.3-10.9) H 08/03/21 03:24 Hgb 15.0 g/dL (13.6-17.9) 08/03/21 03:24 Hct 45.6 % (39.6-49.0) 08/03/21 03:24 Plt Count 291 K/uL (152-406) 08/03/21 03:24 PT 13.9 SECONDS (9.5-12.5) H 08/02/21 19:14 INR 1.21 08/02/21 19:14 Sodium Cancelled 08/03/21 03:24 Potassium Cancelled 08/03/21 03:24 BUN Cancelled 08/03/21 03:24 Creatinine Cancelled 08/03/21 03:24 Glucose Cancelled 08/03/21 03:24 Phosphorus Cancelled 08/03/21 03:24 Magnesium Cancelled 08/03/21 03:24 Total Bilirubin Cancelled 08/03/21 03:24 AST Cancelled 08/03/21 03:24 ALT Cancelled 08/03/21 03:24 Alkaline Phosphatase Cancelled 08/03/21 03:24 Troponin I Cancelled 08/03/21 03:24 Triglycerides Cancelled 08/03/21 03:24 Cholesterol Cancelled 08/03/21 03:24 HDL Cholesterol Cancelled 08/03/21 03:24 Cholesterol/HDL Ratio Cancelled 08/03/21 03:24 Home Medications: Atorvastatin Calcium [Lipitor] 40 mg PO DAILY 12/18/20 Clonidine HCl [Catapres*] 0.2 mg PO Q6HP PRN 12/18/20 Gabapentin 600 mg PO BEDTIME 12/18/20 ALPRAZolam [Xanax*] 0.25 mg PO TID PRN #30 tab 12/19/20 Amitriptyline [Elavil*] 25 mg PO BEDTIME 12/19/20 Hydrocodone Bit/Acetaminophen [[place] 10-325 Tablet] 1 each PO Q6HP PRN #30 tablet 12/19/20 Pantoprazole [Protonix Tab] 40 mg PO DAILY #30 tab 02/18/21 Levofloxacin [Levaquin] 500 mg PO DAILY 7 Days #7 tablet 03/10/21 Spironolactone [Aldactone] 25 mg PO DAILY 30 Days #30 tablet 03/10/21 Physician Discharge Instructions: Patient left against medical advice Followup: NONE,NONE [Primary Care Provider] - Time spent managing pt's care (in minutes): 35
== END 2021-08-03 04:22 | disposition left against medical advice (07) ==
LOC: ER 18:12 → ERHOLD 21:12 → 2ND 23:24
PROVIDERS: ADMIT Hospitalist; ATTEND Hospitalist
DX: R07.9 Chest pain, unspecified (principal); Z53.29 Procedure and treatment not carried out because of patient's decision for other reasons; I16.0 Hypertensive urgency; I11.0 Hypertensive heart disease with heart failure; I50.9 Heart failure, unspecified; I25.700 Atherosclerosis of coronary artery bypass graft(s), unspecified, with unstable angina pectoris; I48.91 Unspecified atrial fibrillation; J44.9 Chronic obstructive pulmonary disease, unspecified; E78.5 Hyperlipidemia, unspecified; G47.30 Sleep apnea, unspecified; E78.00 Pure hypercholesterolemia, unspecified; K74.60 Unspecified cirrhosis of liver; G89.4 Chronic pain syndrome; M54.9 Dorsalgia, unspecified; F31.9 Bipolar disorder, unspecified; Z20.822 Contact with and (suspected) exposure to COVID-19; Z95.1 Presence of aortocoronary bypass graft; Z90.49 Acquired absence of other specified parts of digestive tract; Z88.0 Allergy status to penicillin; Z88.6 Allergy status to analgesic agent; Z80.3 Family history of malignant neoplasm of breast; Z80.0 Family history of malignant neoplasm of digestive organs; Z80.8 Family history of malignant neoplasm of other organs or systems; Z82.49 Family history of ischemic heart disease and other diseases of the circulatory system
CPT/HCPCS: 93005 ×2; 85025 ×2; 80048; 36415; 83735; 85610; 80076; 84484 ×2; 83880; 71045; 94760; 96375; 96374; 99285; U0003; J0360 ×2; J1170; J2405 ×5; G0378 ×3

== ENCOUNTER 2021-11-23 12:08 | Emergency (ER) | payer OTHER ==
--- OUTSIDE RECORDS SUMMARY | 2021-11-23 12:15 | XMS REPORT | Continuity of Care Document ---
:1960 Author Organization [facility] t Address [address] [place] [address] Care Team Providers Name Role Phone Trudy Villafuerte Attending Clinician Unavailable CHRISTOPHER Attending Clinician Unavailable Jessica ORTZI Attending Clinician Unavailable Pedro HAYES, Leticia Attending Clinician Ramón HAYES Attending Clinician Singer MENDOZA Attending Clinician Deonte HAYES Attending Clinician AMY SINGH Attending Clinician Unavailable Jenifer Leal Attending Clinician Unavailable MADHURI DWYER Attending Clinician Unavailable Divina CATHERINE Attending Clinician Unavailable UNDEFINED Admitting Clinician Unavailable Leticia Vasquez MD Admitting Clinician AMY SINGH Admitting Clinician Unavailable Physician, Primary or Family Admitting Clinician Unavailjudy e MADHURI DWYER Admitting Clinician Unavailable Divina CATHERINE Admitting Clinician Unavailable Payers Payer Name Policy Type Policy Number Effective Date Expiration Date [facility] [id number] 2017 DUAL COMPLETE HMO 00:00:00 [facility] [id number] 2014 00:00:00 Problems This patient has no known problems. Allergies, Adverse Reactions, Alerts Allergy Allergy Status Severity Reaction(s) Onset Inactive Treating Comm ents Source Name Type Date Date Clinician Penicill DA Active SV 2020-0 [facility] ins 1-08 Clear 00:00: Pink 00 [facility] codeine DA Active SV 2020-0 [facility] 1-08 Clear 00:00: Pink 00 [facility] Penicill DA Active SV HIVES 2020-0 [facility] ins 1-08 Clear 00:[place] 00 [facility] codeine DA Active SV HIVES 2020-0 [facility] 1-08 Clear 00:00: [place] 00 [facility] CEPHALOS Allergy Active N\\T\\V [address] [facility] PORINS 7-03 [facility] Medical 00 [place] CODEINE DRUG Active Anaphylaxis Univ ers INGREDI 8-18 ity of 00:00: [address] CODEINE Allergy Active Hives [facility] 7-15 [facility] PENICILL Allergy Active [facility] INS 3-30 [facility]: Medical 00 [place] PENICILL DRUG Active Unknown-Cmnt Un ju IN INGREDI 1-04 ity of 00:00: [address] penicill Adverse Active rash [facility] Reaction [facility] Cephalos Adverse Active vomiting [facility] Medications Ordered Filled Start Stop Current Ordering Indication Dosage Frequency Signature Comments Components Source Medication Medication Date Date Medication? Clinician (SIG) Name Name Zofran Zofran Yes Na Villafuerte as needed [facility] 3-19 for nausea [facility] 00 l [facility] Albuterol Albuterol Yes Na Villafuerte inhale [address] [facility] Sulfate Sulfate 5-14 vial by [facility] - 00:[facility]: mouth via [facility]oria 00 nebulizer l 3 times a [facility] Ipratropium Ipratropium Yes Na Villafuerte as [facility] Fisher Fisher 5-14 directed [facility] - [facility]: [facility] 00 l [facility] Amlodipine Amlodipine 2017-10 Yes Na Villafuerte [address] [facility] Besylate Besylate 0-29 [facility] - 00:[facility]: [facility] 00 l [facility] Clonidine Clonidine Yes Na Villafuerte [address] [facility] HCl HCl 6-27 twice x 1 [facility] - 00:[facility]: week then Memoria 00 1 tablet l [facility] Amitriptyli Amitriptyli Yes Na Villafuerte [address] [facility] ne HCl ne HCl [facility]ics Dulera Dulera Yes Na Villafuerte [facility] [facility] Amiodarone Amiodarone Yes Na Villafuerte [address] [facility] [address] HCl HCl [facility] - Yes Na Villafuerte [address] [facility] kes - Memoria l [facility] Isosorbide Isosorbide Yes Na Villafuerte [address] Mononitrate Mononitrate in the [facility] - ER ER morning [facility]ics [place] Na Villafuerte [address] Carbonate Carbonate at bedtime [facility]ics Atorvastati Atorvastati Yes Na Villafuerte [address] [facility] n Calcium n Calcium [facility] Losartan Losartan Yes Na Villafuerte [address] Potassium Potassium kes - Memoria l [facility]ics Gabapentin Gabapentin Yes Na Villafuerte [address] [facility] Carvedilol Carvedilol Yes Na Villafuerte as [facility] directed [facility] HydrALAZINE HydrALAZINE Yes Na Villafuerte [address] [facility] HCl HCl with food [facility] Citalopram Citalopram Yes Na Villafuerte [address] Hydrobromid Hydrobromid L [facility] - [facility] Lorazepam Lorazepam Yes Na Villafuerte [address] [facility] as needed [facility] [place] Yes Na Villafuerte [address] [facility] as needed [facility] Hydrochloro Hydrochloro Yes Na Villafuerte [address] thiazide thiazide in the [facility] - morning [facility] Ranolazine Ranolazine Yes Na Villafuerte [address] ER ER [facility] Lisinopril Lisinopril Yes Na Villafuerte [address] [facility] Lactulose Lactulose Yes Na Villafuerte [address] [facility] [place] Yes Na Villafuerte TAKE [address] Carbonate Carbonate CAPSULE BY [facility] - MOUTH Memoria DAILY AT l BEDTIME Outpati ent Clinics Procedures This patient has no known procedures. Encounters Start End Encounter Admission Attending Care Care Encounter Source Date/Time Date/Time Type Type Clinicians Facility Department ID 2021-11-19 [facility] [id number] [facility] 14:22:23 [id number] [facility] 2021-11-19 Outpatient [facility] [id number] [facility] 14:21:53 [id number] [facility] 2021-11-19 Outpatient Allison [facility]uerte [facility] [id number] 14:20:23 [id number] [facility] 2021-11-19 Outpatient Allison [facility]afuerte [facility] [id number] 14:19:54 [id number] [facility] 2021-11-19 Outpatient Allison [facility]afuerte [facility] [id number] 14:10:33 [id number] [facility] 2021-11-19 Outpatient Orquidea Na [facility]LC STLC [id number] [facility] 14:08:07 [id number] [facility] 2021-11-19 Outpatient Villafuerte, Na STLMLC STLMLC [id number] 14:04:59 [id number] [facility] 2021-11-19 Outpatient Villafuerte, Na STLMLC STLMLC [id number] 14:04:20 [id number] [facility] 2021-11-19 Outpatient Villafuerte, Na STLMLC STLMLC [id number] 13:58:01 [id number] [facility] 2021-11-19 Outpatient Villafueret, Na STLMLC STLMLC [id number] 13:47:28 [id number] [facility] 2021-11-19 Outpatient Villafuerte, Na STLMLC STLMLC [id number] 13:38:03 [id number] [facility] 2021-11-19 Outpatient Villafuerte, Na STLMLC STLMLC [id number] 12:53:40 [id number] [facility] 2021-11-19 Outpatient Villafuerte, Na STLMLC STLMLC [id number] 12:51:30 [id number] [facility] 2021-11-19 Outpatient Villafuerte, Na STLMLC STLMLC [id number] 12:49:34 [id number] [facility] 2021-11-19 Outpatient Villafuerte, Na STLMLC STLMLC [id number] 12:43:54 [id number] [facility] 2021-11-19 Outpatient Villafuerte, Na STLMLC STLMLC [id number] 12:39:57 [id number] [facility] 2021-11-19 Outpatient Villafuerte, Na STLMLC STLMLC [id number] 12:37:10 [id number] [facility] 2021-11-19 Outpatient Villafuerte, Na STLMLC STLMLC [id number] 12:35:58 [id number] [facility] 2021-11-19 Outpatient Villafuerte, Na STLMLC STLMLC [id number] 12:20:41 [id number] [facility] 2021-11-19 Outpatient Villafuerte, Na STLMLC STLMLC [id number] 12:20:03 [id number] [facility] 2021-11-19 Outpatient Villafuerte, Na STLMLC STLMLC [id number] 11:57:27 [id number] [facility] 2021-11-19 Outpatient Villafuerte, Na STLMLC STLMLC [id number] 11:55:43 [id number] [facility] 2021-11-19 Outpatient Villafuerte, Na STLMLC STLMLC [id number] 11:54:35 [id number] [facility] 2021-11-19 Outpatient Villafuerte, Na STLMLC STLMLC [id number] 11:41:38 [id number] [facility] 2021-11-19 Outpatient Villafuerte, Na STLMLC STLMLC [id number] 11:30:36 [id number] [facility] 2021-11-19 Outpatient Villafuerte, Na STLMLC STLMLC [id number] 11:30:23 [id number] [facility] 2021-11-19 Outpatient Villafuerte, Na STLMLC STLMLC [id number] 11:30:02 [id number] [facility] 2021-11-19 Outpatient Villafuerte, Na STLMLC STLMLC [id number] 11:16:54 [id number] [facility] 2021-11-19 Outpatient Villafuerte, Na STLMLC STLMLC [id number] 11:16:32 [id number] [facility] 2021-11-19 Outpatient Villafuerte, Na STLMLC STLMLC [id number] 11:04:05 [id number] [facility] 2021-11-19 Outpatient Villafuerte, Na STLMLC STLMLC [id number] [facility] 10:58:07 [id number] [facility] 2021-08-22 Emergency [facility] [id number] [facility] 19:21:26 [facility] 2021-08-22 Emergency [facility] [id number] Univers 19:20:49 [facility] 2019-11-01 Inpatient HCAPM MILLY [id number] [facility] 11:33:00 [facility] [place] 2021-11-21 2021-11-21 ambulatory [facility]LMLC [facility] [id number] [facility] 2021-11-15 2021-11-15 ambulatory [facility]LMLC [facility] [id number] [facility] 2021-10-22 2021-10-22 ambulatory [facility]LMLC [facility] [id number] [facility] 2021-10-20 2021-10-20 ambulatory [facility]LMLC [facility] [id number] [facility] 2021-09-24 2021-09-24 ambulatory [facility]LMLC [facility] [id number] [facility] 2021-09-23 2021-09-23 ambulatory [facility]LMLC [facility] [id number] [facility] 2021-09-17 2021-09-17 ambulatory [facility]LMLC [facility] [id number] [facility] 2021-09-09 2021-09-09 ambulatory [facility]LMLC [facility] [id number] [facility] 2021-08-22 2021-08-22 ambulatory [facility]LMLC [facility] [id number] [facility] 2021-08-15 2021-08-15 Outpatient [facility] [id number] [facility] 2021-08-13 2021-08-13 Outpatient [facility] [id number] [facility] 2021-07-17 2021-07-17 Outpatient [facility]MLC [facility] [id number] [facility] 2021-07-14 2021-07-14 Outpatient [facility]ML[facility] [id number] [facility] 2021-06-17 2021-06-17 Outpatient [facility]MLC [facility] [id number] [facility] 2021-06-06 2021-06-06 Outpatient [facility]C [facility] [id number] [facility] 2021-05-16 2021-05-16 Outpatient [facility] [id number] [facility] 2021-05-08 2021-05-08 Outpatient [facility]ML[facility] [id number] [facility] 2021-05-08 2021-05-08 Outpatient [facility]ML[facility] [id number] [facility] 2021-04-30 2021-04-30 Outpatient [facility]ML[facility] [id number] [facility] 2021-04-15 2021-04-15 Outpatient [facility]ML[facility] [id number] [facility] 2021-04-15 2021-04-15 Outpatient [facility] [id number] [facility] 2021-04-10 2021-04-10 Outpatient [facility]MLC [facility] [id number] [facility] 2021-03-20 2021-03-20 Outpatient [facility]ML[facility] [id number] [facility] 2021-03-13 2021-03-13 Outpatient [facility]MLC [facility] [id number] [facility] 2021-03-12 2021-03-12 Outpatient [facility]MLC [facility] [id number] [facility] 2021-02-26 2021-02-26 Outpatient [facility]MLC [facility] [id number] [facility] 2021-02-10 2021-02-10 Outpatient [facility]MLC [facility] [id number] [facility] 2021-02-10 2021-02-10 Outpatient [facility]LMLC [facility] [id number] [facility] 2021-02-05 2021-02-05 Outpatient [facility]MLC [facility] [id number] [facility] 2021-02-04 2021-02-04 Outpatient [facility]C [facility] [id number] [facility] 2021-01-31 2021-01-31 Outpatient [facility]MLC [facility] [id number] [facility] 2021-01-01 2021-01-01 Outpatient [facility]ML[facility] [id number] [facility] 2020-12-25 2020-12-25 Outpatient STLMLC STLMLC [id number] STEVE Valenzuela 00:00:00 00:00:00 [facility] 2020-12-03 2020-12-03 Outpatient CHRISTOPHER, [facility] [id number] 00:00:00 00:00:00 RYLEY [address] 2020-11-19 2020-11-19 Outpatient [facility] [id number] [place] 00:00:00 00:00:[address] 2020-11-19 2020-11-19 Outpatient [facility] [id number] [place] 00:00:00 00:00:[address] 2020-11-19 2020-11-19 Outpatient [facility] [id number] [place] 00:00:00 00:00:[address] 2020-11-19 2020-11-19 Outpatient [facility] [id number] [place] 00:00:00 00:00:[address] 2020-11-19 2020-11-19 Outpatient [facility] [id number] [place] 00:00:00 00:00:[address] 2020-11-19 2020-11-19 Outpatient [facility] [id number] [place] 00:00:00 00:00:[address] 2020-11-19 2020-11-19 Outpatient [facility] [id number] [place] 00:00:00 00:00:[address] 2020-11-19 2020-11-19 Outpatient [facility] [id number] [place] 00:00:00 00:00:[address] 2020-11-19 2020-11-19 Outpatient [facility] [id number] [place] 00:00:00 00:00:[address] 2020-11-07 2020-11-07 Outpatient STLMLC STLMLC [id number] STEVE Valenzuela 00:00:00 00:00:00 [facility] 2020-08-12 2020-08-12 Outpatient [facility]ML[facility] [id number] [facility]00 kes - [facility] Outpati ent Clinics 2020-08-08 2020-08-08 Outpatient [facility] [id number] [facility] 00:00:00 kes - [facility] l Outpati ent Clinics 2020-07-22 2020-07-22 Transition Jackie Lopez [id number] 00:00:00 00:00:00 of Care Mirella Castro [id number] [place] [id number] 2020-07-18 2020-07-20 Hospital Pedro Darren Corrales [id number]. [id number] 22:50:00 13:00:00 Encounter RamónMoshe [id number] 2020-07-18 2020-07-18 Emergency Mejia Hdz [facility] [id number] 17:31:00 21:56:00 Osmin Clemons [id number] [place] [id number] [place] [id number] 2020-06-25 2020-06-25 [facility] [id number] 11:20:00 11:20:00 t [employer] s - [place] [facility] Medicine Outpati ent Clinics 2020-05-03 2020-05-03 [facility] [id number] 14:25:00 14:25:00 t [employer] s - Drive [facility] Medicine Outpati ent Clinics 2020-02-12 2020-02-12 [facility] [id number] 11:15:00 11:15:00 t Sylva EpiGa[employer] s - Drive [facility] Medicine Outpati ent Clinics 2020-01-26 2020-01-26 [facility] [id number] 11:20:00 11:20:00 t Sylva EpiGaN s - Drive [facility] Medicine Outpati ent Clinics 2020-01-11 2020-01-11 [facility] [id number] 15:32:00 15:32:00 t Sylva Sylva Oodle Luke s - Drive [facility] Medicine l Medicine Outpati ent Clinics 2020-01-03 2020-01-03 [facility] [id number] 09:20:00 09:20:00 t Sylva EpiGaN s - Drive [facility] Medicine l Medicine Outpati ent Clinics 2020-01-02 2020-01-02 Outpatient NICOLETTE SINGH BL [facility] [facility] 09:54:00 15:59:00 INA 2019-11-13 2019-11-13 [facility] [id number] 14:13:00 14:13:00 t Specialty/U Abigail kes - Specialty rology [facility] l Clinic Outpati ent Clinics 2019-11-01 2019-11-01 Outpatient PATRICIO Leal OUTD [id number] [facility] 23:56:00 23:56:[address] 2019-11-01 2019-11-01 [facility] [id number] 09:20:00 09:20:00 t Sylva EpiGaN s - Drive [facility] l Medicine Outpati ent Clinics 2019-10-27 2019-10-27 Outpatient MHSE MHSE [id number] [facility] 08:50:00 08:50:[address] [facility] 2019-09-05 2019-09-05 [facility] [id number] 09:29:00 09:29:00 t Sylva Kabooza [employer] s - Drive [facility] l Medicine Outpati ent Clinics 2019-05-31 2019-05-31 [facility] [id number] 12:00:00 12:00:00 t Sylva Sylva [place]le [employer] s - Drive [facility] l Medicine Outpati ent Clinics 2019-05-30 2019-05-30 [facility] [id number] 15:00:00 15:00:00 t Sylva Sylva Oodle [employer] s - Drive [facility] l Medicine Outpati ent Clinics 2019-04-26 2019-04-26 [facility] [id number] 15:09:00 15:09:00 t Sylva Sylva [employer] s - Drive [facility] Medicine l Medicine Outpati ent Clinics 2019-03-30 2019-03-30 [facility] [id number] 15:40:00 15:40:00 t Sylva EpiGa[employer] s - [place] [facility] Medicine l Medicine Outpati ent Clinics 2019-02-23 2019-02-23 Outpatient E MHSE [id number] 15:40:00 15:40:00 [facility] 2019-01-10 2019-01-10 [facility] [id number] 08:41:00 08:41:00 t Sylva EpiGaN s - [place] [facility] Medicine Outpati ent Clinics 2018-12-12 2018-12-12 [facility] [id number] 08:15:00 08:15:00 t Sylva EpiGaN s [employer]Twang [facility] Medicine Outpati ent Clinics 2018-07-27 2018-07-27 [facility] [id number] 15:15:00 15:15:00 t Sylva EpiGaN s dbTwang [facility] Medicine Medicine Outpati ent Clinics 2018-06-09 2018-06-09 [facility] [id number] 08:00:00 08:00:00 t Sylva EpiGaN s dbTwang [facility] Medicine Medicine Outpati ent Clinics 2018-05-31 2018-05-31 [facility] [id number] 09:00:00 09:00:00 t Sylva EpiGa[employer] s - [place] [facility] Medicine l Medicine Outpati ent Clinics 2018-04-20 2018-04-20 [facility] [id number] 09:45:00 09:45:00 t Sylva EpiGaN s - [place] [facility] Medicine l Medicine Outpati ent Clinics 2018-04-15 2018-04-15 [facility] [id number] 15:26:00 15:26:00 t Sylva EpiGaN s dbTwang [facility] Medicine l Medicine Outpati ent Clinics 2018-03-15 2018-03-15 [facility] [id number] 15:15:00 15:15:[address] [facility] ent [facility] 2018-02-28 2018-02-28 [facility] [id number] 09:15:00 09:15:00 asia Kraus [facility] ent [facility] Results Test Description Test Time Test Comments Results Result Comments Source SARS-COV2/RT-PCR ([facility]) 2020-05-20 09:54:00 Test Item Value Reference Range Interpretation Comme nts SARS-COV2/RT-PCR (test code = 7691294) Negative Not Detected, N egative, See external report for linked test SARS-COV-2 PERFORMING LAB (test code = [facility] [id number]) Negative result for this test determines that [...] 564(g) of the Act.Fact Sheet for Healthcare Providers:https://www.[employer].com/sites/default/files/product/documents/Fact_Himanshu betancourto_ZU_Zsyqeqqow_Nqhh_KTCU-MtF-6.pdfFact Sheet for Healthcare Patients:https://www.[employer]/sites/default/files/product/ documents/Qujv_Mmqqa_Eomklwxi_Rrln_ZWUN-TlA-1.pdfPerforming Laboratory:[facility], [place] [address]DVEKW METABOLIC PANEL 2019-11-04 06:36:00 Test Item Value [...] CA) 8.9 MG/DL 8.5-10.1 N CBC W/AUTO [id number] 06:32:00 Test Item Value Reference Range Interpretation [...] = NO DIFF/SCN CRITERIA MDIFF) COMPREHENSIVE METABOLIC [id number] 06:08:00 Test Item Value Reference Range Interpretation [...] TOTAL (test code = ALKP) CBC W/AUTO [id number] 05:52:00 Test Item Value Reference Range Interpretation [...] if any concentrations <2 ng/mL are obtai brandno. LACTIC [id number] 16:03:00 Test Item Value Reference Range Interpretation Comments LACTIC ACID (test code = LACT) 1.0 mmol/L 0.4-2.0 N - XR CHEST 1 [id number] 15:59:00 Name: ALHAJI FARAH ELISEO [place] : 1960 Age/S: 58 / M [id number] Unit #: [id number] Loc: [place] [address] Phys: Jac Leal MD Acct: [id number] Dis Date: Status: ADM IN PHONE #: [phone] Exam Date: 11/02/2019 1556 FAX #: Reason: Fever EXAMS: CPT: [id number] XR CHEST 1 V 56939 Fluoro Time: DAP (Gy m2): Air Kerma [...] PAGE 1 Signed Report Name: ALHAJI FARAH ELISEO [place] : 1960 Age/S: 58 / M [id number] Unit #: [id number] Loc: [place] [address] Phys: Jac Leal MD Acct: [id number] Dis Date: Status: ADM IN PHONE #: [phone] Exam Date: 11/02/2019 1556 FAX #: Reason: Fever EXAMS: CPT: [id number] XR CHEST 1 V 42998 Fluoro Time: DAP (Gy m2): Air Kerma (mGy): <Continued> Technologist: Sabine Cross RT(R)(CT) Trnscb Date/Time: 11/02/2019 (4193) [id number] Orig Print D/T: S: 11/02/2019 (4480) PAGE 2 Signed [id number] 04:22:00 Test Item Value Reference Range Interpretation [...] may roma yby method. Completed by Nursing: BASI METABOLIC [id number] 04:19:00 Test Item Value Reference Range Interpretation [...] CA) 8.1 MG/DL 8.5-10.1 L CBC W/AUTO [id number] 04:08:00 Test Item Value Reference Range Interpretation [...] = NO DIFF/SCN CRITERIA MDIFF) - CTA [id number] 22:57:00 Name: ALHAJI FARAH [facility] : 1960 Age/S: 58 / M [id number] Unit #: [id number] Loc: [place] [address] Phys: Jac Leal MD Acct: [id number] Dis Date: Status: ADM IN PHONE #: [phone] Exam Date: 11/01/20192233 FAX #: Reason: Chest PAIN EXAMS: CPT: [id number] CTA CHEST Examination: CTA chest, PE protocol [...] 1 Signed Report (CONTINUED) Name: ALHAJI FARAH [place] : 1960 Age/S: 58 / M [address] Unit #: [id number] Loc: [place] [address] Phys: Jac Leal MD Acct: [id number] Dis Date: Status: ADM IN PHONE #: [phone] Exam Date: 11/01/20192233 FAX #: Reason: Chest PAIN EXAMS: CPT: [id number] CTA CHEST <Continued> No suspicious or destructive [...] RT(R)(CT); .. CTDI: DLP: Trnscb Date/Time: 11/01/2019 (7459) t.SDR.SR31 Orig Print D/T: S: 11/01/2019 (1729) PAGE 2 Signed ReportGLYCOSYLATED HEMOGLOBIN [id number] 17:41:00 Test Item Value Reference Range Interpretation Comments GLYCOSYLATED HEMOGLOBIN (HA1C) 6.3 % A1C 4.2-6.3 N (test code = GLYHGB) ESTIMATED AVERAGE GLUCOSE (test 134 MG/DLest code = EAG) COMPREHENSIVE METABOLIC [id number] 17:40:00 Test Item Value Reference Range Interpretation [...] = LDL/HDL) 2.94 Ratio 1.48-3.22 Avg N [id number] 17:40:00 Test Item Value Reference Range Interpretation Comments PHOSPHOROUS (test code = PHOS) 3.5 MG/DL 2.5-4.9 N RULE OUT MO [id number] 17:40:00 Test Item Value Reference Range Interpretation [...] nume rical results may roma yby method. [id number] 17:40:00 Test Item Value Reference Range Interpretation Comments MAGNESIUM (test code = MAG) 2.5 MG/DL 1.8-2.4 H TROPONIN I [id number] 15:24:00 Test Item Value Reference Range Interpretation Comments TROPONIN I RAPID 0.04 ng/mL 0.00-0.08 N - The use o f serial (test code = sampling and te sting TROPIRAP) protocol is a recommended pra ctice- An elevated tro ponin level alone is often not sufficient for diagnosis of my ocardial infarction. BASIC METABOLIC [id number] 13:39:00 Test Item Value Reference Range Interpretation [...] 133 Unit/L 26-192 N CK) TROPONIN I [id number] 11:56:00 Test Item Value Reference Range Interpretation Comments TROPONIN I RAPID 0.04 ng/mL 0.00-0.08 N - The use o f serial (test code = sampling and te sting TROPIRAP) protocol is a recommended pra ctice- An elevated tro ponin level alone is often not sufficient for diagnosis of my ocardial infarction. - XR CHEST 1 [id number] 11:53:00 Name: ALHAJI FARAH [facility] : 1960 Age/S: 58 / M [address] Unit #: [id number] Loc: [place] [address] Phys: Darell Medrano MD Acct: [id number] Dis Date: Status: PRE ER PHONE #: [phone] Exam Date: 11/01/2019 1140 FAX #: Reason: chest pain EXAMS: CPT: [id number] XR CHEST 1 V 01373 Fluoro Time: DAP (Gy m2): Air Kerma [...] ALHAJI FARAH :1960 Age/S: 58 / M [address] Unit #: [id number] Loc: [place] [address] Phys: Darell Medrano MD Acct: [id number] Dis Date: Status: PRE ER PHONE #: [phone] Exam Date: 11/01/2019 1146 FAX #: Reason: chest pain EXAMS: CPT: [id number] XR CHEST 1 V 26806 Fluoro Time: DAP (Gy m2): Air Kerma (mGy): <Continued> Technologist:Nirmal Negron RT(R)(MR) Trnscb Date/Time: 11/01/2019 (1153) JuanJH12 Orig Print D/T: S: 11/01/2019 (4526) PAGE 2 Signed ReportCBC W/O [id number] 11:50:00 Test Item Value Reference Range Interpretation [...] 11.80 fL 7.0-9.6 H MPV) CHEMISTRY 8 [id number] 11:47:00 Test Item Value Reference Range Interpretation [...] 49-113 N code = GFRBED) CHEMISTRY 8 [id number] 11:47:00 Test Item Value Reference Range Interpretation [...] 49-113 N (test code = GFRBED) TISSUE [id number] 10:31:00Surgical Pathology Report Case: [id number] Authorizing Provider: RidgedianasaigeCaleb Nereyda Collected: 06/14/2019 152Elsie Morales MD Ordering Location: [address] Received: 06/15/2019 0756 Service Pathologist: Misty Jackson MD Specimen: Ampulla, Ampulla Bx A. "AMPULLA", BIOPSY: - SQUAMOUS AND FOVEOLAR TYPE MUCOSA WITH MILD CHRONIC INFLAMMATION - NEGATIVE FOR MALIGNANCY (SEE COMMENT) Signing Pathologist Direct Phone Line: [phone] signed by Misty Jackson MD on 06/19/2019 at 10:31 AMThe biopsy shows fragments of squamous and foveolar type mucosa with mild chronic inflammation and cautery. Focal muscle is also seen. No definite small bowel/ biliary lining is seen. The ampulla normally does not have squamous lining. This could be a metaplastic change. Clinical and endoscopic correlation is required.[id number] and postop diagnosis: endoscopic ultrasound with endo, EUS and possible ERCP.Pre and postop diagnosis: abdominal painAmpulla, ampulla Bx .Received in formalin labeled with the patient's name, accession number and "ampulla" is a 0.3 x 0.3 x 0.2 cm piece of meehan-brown, irregular, mucosal-covered tissue. The specimen submitted in toto following filtration in cassette A1. SS/plPerformed.LA, ERCP 2019-06-16 12:50:00Reason for exam:->Abdominal PainFINAL REPORT A fluoroscopic unit was utilized for a procedure performed in the operating room. No interpretation was requested. Please refer to the operative report regarding findings. Please refer to PACS for patient radiation dose information. Signed: Diana Nicholas MDReport Verified Date/Time: 06/16/2019 12:50:49 Reading Location: [facility] Radiology Reading Room BLOOD CULTURE 2019-06-16 12:01:00 Test Item Value Reference Range Interpretation Comments CULTURE (BEAKER) (test No growth in 5 days code = 1095) BLOOD [id number] 12:01:00 Test Item Value Reference Range Interpretation Comments CULTURE (BEAKER) (test No growth in 5 days code = 1095) COMPREHENSIVE METABOLIC [id number] 07:08:00 Test Item Value Reference Range Interpretation [...] NOT APPLICABLE FOR DIALYSIS PATIEN TS. BLOOD [id number] 02:00:00 Test Item Value Reference Range Interpretation Comments CULTURE (BEAKER) (test No growth in 5 days code = 1095) BLOOD [id number] 02:00:00 Test Item Value Reference Range Interpretation Comments CULTURE (BEAKER) (test No growth in 5 days code = 1095) BLOOD [id number] 02:00:00 Test Item Value Reference Range Interpretation Comments CULTURE (BEAKER) (test No growth in 5 days code = 1095) COMPREHENSIVE METABOLIC [id number] 04:49:00 Test Item Value Reference Range Interpretation [...] 0-0 CELLS (BEAKER) (test code = 413) [id number] 16:17:00 Test Item Value Reference Range Interpretation Comments ACTIVATED CLOTTING TIME 125 sec TEST ED AT [facility] 6720 ([facility]) (test code = DANIELLAMICHAEL Paez [facility] 441) [address] PET, CARDIAC PERFUSION MULTIPLE STUDIES, REST AND [id number] 16:40:00 Reason for exam:->chest pain, evaluate for worsening CAD, s/p CABGFINAL REPORT PROCEDURE: MYOCARDIAL PERFUSION PET IMAGING (Rest/Stress)CPT CODE: 52517 INDICATION: Evaluate acute chest pain/discomfort CARDIOVASCULAR PROFILE:CAD [...] MDReport Verified Date/Time: 06/12/2019 16:40:23 Reading Location: [address] Reading Room TROPONIN [id number] 02:08:00 Test Item Value Reference Range Interpretation [...] acute neurological disease, and persistent tachyarrhythmia.HEPATIC FUNCTION [id number] 02:02:00 Test Item Value Reference Range Interpretation [...] = 26 U/L 6-55 347) BASIC METABOLIC [id number] 02:02:00 Test Item Value Reference Range Interpretation [...] APPLICABLE FOR DIALYSIS PATIEN TS. VANCOMYCIN LEVEL, [id number] 01:59:00 Test Item Value Reference Range Interpretation [...] WBC 0-0 (BEAKER) (test code = 413) [id number] 07:20:00 Test Item Value Reference Range Interpretation Comments PROCALCITONIN (BEAKER) (test code 0.30 ng/mL <0.05 H = 3036) SEPSIS RISK (ng/mL)Low: 0.05-0.50Intermediate: 0.51-2.00High: >=2.01BASIC METABOLIC [id number] 07:16:00 Test Item Value Reference Range Interpretation [...] APPLICABLE FOR DIALYSIS PATIEN TS. HEPATIC FUNCTION [id number] 07:16:00 Test Item Value Reference Range Interpretation [...] WBC 0-0 (BEAKER) (test code = 413) [id number] 05:55:00 Test Item Value Reference Range Interpretation Comments MAGNESIUM (BEAKER) (test code = 2.1 mg/dL 1.6-2.6 627) LIPID [id number] 05:55:00 Test Item Value Reference Range Interpretation [...] 130-159 High 160-189 Very High >=190HEPATIC FUNCTION [id number] 05:55:00 Test Item Value Reference Range Interpretation [...] = 34 U/L 6-55 347) BASIC METABOLIC [id number] 05:55:00 Test Item Value Reference Range Interpretation [...] PATIEN TS. CBC W/PLT COUNT & AUTO [id number] 05:03:00 Test Item Value Reference Range Interpretation [...] PERCENT (BEAKER) (test code = 2801) TROPONIN [id number] 05:02:00 Test Item Value Reference Range Interpretation [...] acute neurological disease, and persistent tachyarrhythmia.LACTIC ACID, [id number] 04:48:00 Test Item Value Reference Range Interpretation Comments LACTATE BLOOD VENOUS (2) (BEAKER) 1.1 mmol/L 0.5-2.2 (test code = 2872) URINALYSIS W/ REFLEX URINE [id number] 03:25:00 Test Item Value Reference Range Interpretation [...] SOURCE(BEAKER) (test code = 2795) OXYGEN SATURATION, [id number] 03:04:00 Test Item Value Reference Range Interpretation [...] 0.7 mmol/L 0.5-2.2 (test code = 2872) [id number] 23:52:00 Test Item Value Reference Range Interpretation Comments PROCALCITONIN (BEAKER) (test code 0.30 ng/mL <0.05 H = 3036) SEPSIS RISK (ng/mL)Low: 0.05-0.50Intermediate: 0.51-2.00High: >=2.01TROPONIN [id number] 23:40:00 Test Item Value Reference Range Interpretation [...] failure, acidosis, acute neurological disease, and persistent tachyarrhythmia.[id number] 23:34:00 Test Item Value Reference Range Interpretation Comments PHOSPHORUS (BEAKER) (test code = 3.4 mg/dL 2.3-4.7 604) [id number] 23:34:00 Test Item Value Reference Range Interpretation Comments MAGNESIUM (BEAKER) (test code = 2.2 mg/dL 1.6-2.6 627) BASIC METABOLIC [id number] 23:34:00 Test Item Value Reference Range Interpretation [...] APPLICABLE FOR DIALYSIS PATIEN TS. HEPATIC FUNCTION [id number] 23:34:00 Test Item Value Reference Range Interpretation [...] = 42 U/L 6-55 347) COMPREHENSIVE METABOLIC [id number] 23:34:00 Test Item Value Reference Range Interpretation [...] S NOT APPLICABLE FOR DIALYSIS PATIEN TS. [id number] 23:34:00 Test Item Value Reference Range Interpretation Comments LIPASE (BEAKER) (test code = 749) 38 U/L 8-78 [id number] 23:33:00 Test Item Value Reference Range Interpretation Comments PARTIAL THROMBOPLASTIN TIME 27.3 seconds 22.5-36.0 (BEAKER) (test code = 760) [id number] 23:33:00 Test Item Value Reference Range Interpretation Comments FIBRINOGEN LEVEL (BEAKER) (test 300 mg/dl 225-434 code = 658) PROTHROMBIN TIME/[id number] 23:32:00 Test Item Value Reference Range Interpretation [...] mechanical heart valves.CBC W/PLT COUNT & AUTO [id number] 23:22:00 Test Item Value Reference Range Interpretation [...] (BEAKER) (test code = 2801) BLOOD GAS, [id number] 22:27:00 Test Item Value Reference Range Interpretation [...] code = 1819) 21.0 % POCT-LACTIC ACID, [id number] 21:53:00 Test Item Value Reference Range Interpretation Comments POC-LACTIC ACID, 1.6 mmol/L 0.9-1.7 TESTED AT [place] [address] VENOUS (BEAKER) (test [facility] code = 2805) [address] TROPONIN [id number] 18:59:00 Test Item Value Reference Range Interpretation [...] acute neurological disease, and persistent tachyarrhythmia.HEPATITIS C [id number] 16:55:00 Test Item Value Reference Range Interpretation Comments HEPATITIS C ANTIBODY (BEAKER) (test Reactive Nonreactive A code = 367) POCT-GLUCOSE [id number] 12:03:00 Test Item Value Reference Range Interpretation Comments POC-GLUCOSE METER 169 mg/dL 70-110 H TESTED AT [place] [address] (BEAKER) (test code = [facility] [place] 1538) [address] HEPATITIS B CORE ANTIBODY, [id number] 08:37:00 Test Item Value Reference Range Interpretation Comments HEPATITIS B CORE TOTAL ANTIBODY Reactive Nonreactive A (BEAKER) (test code = 497) POCT-GLUCOSE [id number] 08:14:00 Test Item Value Reference Range Interpretation Comments POC-GLUCOSE METER 105 mg/dL 70-110 TESTED AT [facility] 6720 (BEAKER) (test code = [place] 1538) [address] HEPATIC FUNCTION [id number] 07:10:00 Test Item Value Reference Range Interpretation [...] 67 U/L 6-55 H 347) BASIC METABOLIC [id number] 07:10:00 Test Item Value Reference Range Interpretation [...] FOR DIALYSIS PATIEN TS. HEPATITIS B SURFACE [id number] 06:58:00 Test Item Value Reference Range Interpretation Comments HEPATITIS B SURFACE ANTIBODY < mIU/mL <8.0 (BEAKER) (test code = 647) HEPATITIS B SURFACE [id number] 05:42:00 Test Item Value Reference Range Interpretation Comments HEPATITIS B SURFACE ANTIGEN (2) Nonreactive Nonreactive (BEAKER) (test code = 2585) HEPATITIS B CORE ANTIBODY, [id number] 05:42:00 Test Item Value Reference Range Interpretation Comments HEPATITIS B CORE IGM ANTIBODY Nonreactive Nonreactive (BEAKER) (test code = 645) CBC W/PLT COUNT & AUTO [id number] 04:56:00 Test Item Value Reference Range Interpretation [...] (test code = 2801) U/S, RENAL WITH [id number] 16:28:00Reason for exam:->hypertensionFINAL REPORT INDICATION: 57-year-old inpatient [...] MDReport Verified Date/Time: 05/11/2018 16:28:02 Reading Location: [address] Ultrasound Reading Room U/S, ABDOMINAL, [id number] 16:15:00Abdomen limited area? Add comment if clarification [...] MDReport Verified Date/Time: 05/11/2018 16:15:41 Reading Location: [address] Ultrasound Reading Room CTA, CHEST, ABDOMEN - PELVIS, FOR [id number] 14:11:00Reason for exam:->Chest painAddendum BeginsREPORT STATUS:A Addendum: I agree with the previously described non vascular findings. Signed: Ashish Antionette MDReport Verified Date/Time: 05/11/2018 14:11:09 Reading Location: [facility] P048 Angio Body Reading RoomAddendum EndsFINAL REPORT [...] coronary artery calcification is seen in the [place] coronary [place]. Patient is post coronary artery [...] thoracic aorta. In the abdominal aorta, circumferential viva-lb-rrcngbxd calcific atherosclerosis is seen. Overall, no ectasia [...] An addendum will be dictated by the Cdl Program Coordinator Radiologist regarding the nonvascular findings. Signed: Magno Augustin MDReport Verified Date/Time: 05/10/2018 18:58:16 Reading Location: [place] [address] Cardiology MRI CALCIUM, [id number] 05:20:00 Test Item Value Reference Range Interpretation Comments CALCIUM IONIZED (BEAKER) (test 1.16 mmol/L 1.12-1.27 code = 698) PH, BLOOD (BEAKER) (test code = 7.40 1810) [id number] 04:29:00 Test Item Value Reference Range Interpretation Comments PHOSPHORUS (BEAKER) (test code = 3.5 mg/dL 2.3-4.7 604) [id number] 04:29:00 Test Item Value Reference Range Interpretation Comments MAGNESIUM (BEAKER) (test code = 2.4 mg/dL 1.6-2.6 627) COMPREHENSIVE METABOLIC [id number] 04:29:00 Test Item Value Reference Range Interpretation [...] PATIEN TS. CBC W/PLT COUNT & AUTO [id number] 03:58:00 Test Item Value Reference Range Interpretation [...] (BEAKER) (test code = 2801) U/S, RENAL, [id number] 13:00:00Reason for exam:->akiShould this be performed at [...] MDReport Verified Date/Time: 05/10/2018 13:00:32 Reading Location: [address] Ultrasound Reading Room CALCIUM, [id number] 06:58:00 Test Item Value Reference Range Interpretation Comments CALCIUM IONIZED (BEAKER) (test 1.08 mmol/L 1.12-1.27 L code = 698) PH, BLOOD (BEAKER) (test code = 7.35 1810) B-TYPE NATRIURETIC FACTOR (BNP)2018-05-10 05:49:00 Test Item Value Reference Range Interpretation Comments B-TYPE NATRIURETIC PEPTIDE (BEAKER) 153 pg/mL 0-100 H (test code = 700) [id number] 05:47:00 Test Item Value Reference Range Interpretation Comments MAGNESIUM (BEAKER) 2.4 mg/dL 1.6-2.6 Specimen slightly (test code = 627) hemolyzed [id number] 05:47:00 Test Item Value Reference Range Interpretation Comments PHOSPHORUS (BEAKER) 2.7 mg/dL 2.3-4.7 Specimen slightly (test code = 604) hemolyzed COMPREHENSIVE METABOLIC [id number] 05:47:00 Test Item Value Reference Range Interpretation [...] PATIEN TS. CBC W/PLT COUNT & AUTO [id number] 05:31:00 Test Item Value Reference Range Interpretation [...] (BEAKER) (test code = 2801) EOSINOPHIL SMEAR, [id number] 22:19:00 Test Item Value Reference Range Interpretation Comments EOSINOPHIL SMEAR, URINE (BEAKER) No EOS seen No EOS seen (test code = 1851) URINALYSIS W/ [id number] 22:13:00 Test Item Value Reference Range Interpretation [...] code = 516) SOURCE(BEAKER) (test code = 6209) SODIUM, RANDOM [id number] 21:38:00 Test Item Value Reference Range Interpretation Comments SODIUM URINE (BEAKER) (test code = < meq/L 243) Reference Range: No NormalsPROTEIN, RANDOM [id number] 21:38:00 Test Item Value Reference Range Interpretation Comments PROTEIN, URINE (BEAKER) (test code = 15 mg/dL 0-14 H 1569) CREATININE, RANDOM [id number] 21:38:00 Test Item Value Reference Range Interpretation Comments CREATININE URINE (BEAKER) (test 173.4 mg/dL code = 375) Reference Range: No NormalsRAD, FOOT, 2 VIEWS, [id number] 13:59:00Reason for exam:->Pain and swelling of left foot after fall.FINAL REPORT Two views left foot Discussion: There is hallux valgus with degen erative changes. No visible acute fracture, dislocation, destructive lesion. Soft tissues are unremarkable. Signed: Darren Ariza Verified Date/Time: 05/09/2018 13:59:01 Reading Location: [facility] C013W Consult Reading Room PUL PERF IMAGING, PARTIC, [id number] 12:03:00FINAL REPORT PROCEDURE: V/Q LUNG SCAN CPT CODE: 10210 INDICATION: Acute chest pain, PE suspected, dyspnea, [...] Leticia Pimentel Verified Date/Time: 05/09/2018 12:03:05 ReadingLocation: [facility] [address] [facility] Reading Room FL, ESOPH, SWALLOW FUNCTION, WITH CINE OR [id number] 11:00:00Reason for exam:->chest painFINAL REPORT Esophagram History: [...] Verified Date/Time: 0 05/09/2018 11:00:37 Reading Location: [facility] B1 C013X Ortho Consult Reading Room HEMOGLOBIN [id number] 10:45:00 Test Item Value Reference Range Interpretation Comments HEMOGLOBIN A1C (BEAKER) (test code = 6.3 % 4.3-6.1 H 368) BASIC METABOLIC [id number] 08:43:00 Test Item Value Reference Range Interpretation [...] FOR DIALYSIS PATIEN TS. Re-draw per labLIPID [id number] 08:42:00 Test Item Value Reference Range Interpretation [...] Borderline 130-159 High 160-189 Very High >=190LITHIUM [id number] 08:31:00 Test Item Value Reference Range Interpretation Comments LITHIUM LEVEL (BEAKER) (test code 0.4 mmol/L 0.8-1.2 L = 630) RAPID DRUG SCREEN, [id number] 07:54:00 Test Item Value Reference Range Interpretation [...] situations. Chain of custody not maintained. Some yfzw-rwl-lapxsdy medications, as well as adulterants, may cause inaccurate results. Clinical correlation should be applied. A more comprehensive drug screen or confirmation of a detected drug may be performed upon request. CREATINE KINASE (CK), TOTAL AND [id number] 07:47:00 Test Item Value Reference Range Interpretation Comments CREATINE KINASE TOTAL (BEAKER) 161 U/L 29-200 (test code = 380) CREATINE KINASE-MB (BEAKER) (test 4.9 ng/mL 0.0-6.6 code = 750) CREATINE KINASE-MB INDEX (BEAKER) 3.0 % (test code = 395) CK-MB Reference Range:<6.7 Normal6.7-10.0 Borderline>10.0 AbnormalTROPONIN [id number] 07:47:00 Test Item Value Reference Range Interpretation [...] acute neurological disease, and persistent tachyarrhythmia.BASIC METABOLIC [id number] 04:56:00 Test Item Value Reference Range Interpretation [...] (test code = 413) CT, BRAIN, WITHOUT [id number] 21:00:00FINAL REPORT CT, BRAIN, WITHOUT CONTRAST INDICATION: [...] evidence of chronicity. Signed: JR Nida, Emelyn BROWNeport Verified Date/Time: 05/08/2018 21:00:20 Reading Location: [address] Reading Room B-TYPE NATRIURETIC FACTOR (BNP)2018-05-08 19:03:00 Test Item Value Reference Range Interpretation Comments B-TYPE NATRIURETIC PEPTIDE (BEAKER) 254 pg/mL 0-100 H (test code = 700) CREATINE KINASE (CK), TOTAL AND [id number] 19:02:00 Test Item Value Reference Range Interpretation Comments CREATINE KINASE TOTAL (BEAKER) 150 U/L 29-200 (test code = 380) CREATINE KINASE-MB (BEAKER) (test 5.5 ng/mL 0.0-6.6 code = 750) CREATINE KINASE-MB INDEX (BEAKER) 3.7 % (test code = 395) CK-MB Reference Range:<6.7 Normal6.7-10.0 Borderline>10.0 AbnormalTROPONIN [id number] 19:02:00 Test Item Value Reference Range Interpretation [...] acute neurological disease, and persistent tachyarrhythmia.BASIC METABOLIC [id number] 18:32:00 Test Item Value Reference Range Interpretation [...] PATIEN TS. CBC W/PLT COUNT & AUTO [id number] 18:28:00 Test Item Value Reference Range Interpretation [...] 0-1 PERCENT (BEAKER) (test code = 2801) [id number] 18:15:00 Test Item Value Reference Range Interpretation Comments PARTIAL THROMBOPLASTIN TIME 30.0 seconds 22.5-36.0 (BEAKER) (test code = 760) Prior to initiating heparinXR Fluoroscopy in Imaging per [id number] 12:25:17 Patient: ALHAJI FARAH Date/Time04/05/2018 11:30 CDTReason [...]
[2021-11-23] MEDS ORDERED: carvediloL 6.25 MG TAB ONE (14:28)
[2021-11-23] MEDS ORDERED: FUROSEMIDE 40 MG TABLET ONE (14:28)
[2021-11-23] MEDS ORDERED: cloNIDine HCL 0.1 MG TAB ONE (14:28)
[2021-11-23] MEDS ORDERED: NA CHLORIDE 0.9% 1,000 ML ONE (14:29)
[2021-11-23] MEDS ORDERED: AMLODIPINE 10 MG TAB ONE (14:29)
[2021-11-23] MEDS ORDERED: HYDRALAZINE HCL 25 MG TABLET ONE (14:29)
[2021-11-23 14:34] LABS: Protime INR 1.03
[2021-11-23 14:42] LABS: Hematocrit 38.7 % (39.6-49.0); Lymphocytes % 24.3 % (15.3-44.8); MPV 9.6 fL (7.6-11.3); RBC Red Blood Cell Count 4.34 M/uL (4.33-5.43)
--- NOTE | 2021-11-23 14:45 | RAD REPORT ---
EXAM DESCRIPTION: RAD - Chest Single View - 11/23/2021 2:02 pm CLINICAL HISTORY: CHEST PAIN COMPARISON: Single-view chest July 2021 TECHNIQUE: AP portable chest image was obtained 11/23/2021 2:02 pm . FINDINGS: Lung volumes reduced compared to the prior study. Bibasilar interstitial opacification is present. This is most likely atelectasis from low lung volumes. Lung base infiltrates cannot be exclu ded. There is no dense consolidation. Failure and volume overload are not suspected. Heart and vasculature are normal. No measurable pleural effusion and no pneumothorax. No acute bony abnormality seen. No acute aortic findings suspected. IMPRESSION: Bibasilar interstitial opacification favored to be atelectasis. Infiltrate in each lung base is possible but needs correlation with clinical and laboratory findings.
[2021-11-23 14:51] LABS: ALT/SGPT 19 U/L (12-78); AST/SGOT 19 U/L (15-37); Albumin 3.6 g/dL (3.4-5.0); Alkaline Phosphatase 44 U/L (45-117); BUN Blood Urea Nitrogen 24 mg/dL (7-18); Bicarbonate 31 mmol/L (21-32); Bilirubin Direct < 0.1 mg/dL (0-0.2); Bilirubin Total 0.2 mg/dL (0.2-1.0); Glucose Level 87 mg/dL (74-106); Magnesium 2.8 mg/dL (1.8-2.4); NT PRO-BNP 1155 pg/mL (<125); Potassium 3.8 mmol/L (3.5-5.1); Protein, Total 7.9 g/dL (6.4-8.2); Sodium Level 142 mmol/L (136-145)
[2021-11-23] MEDS ORDERED: FENTANYL CITR 100 MCG/2 ML ONE (14:56)
--- NOTE | 2021-11-23 15:22 | RAD REPORT ---
EXAM DESCRIPTION: CT - CTHCSPWOC - 11/23/2021 3:04 pm CLINICAL HISTORY: PAIN, blunt force trauma to the face COMPARISON: Head C Spine Mpr Wo Con dated 06/27/2016 TECHNIQUE: Axial 5 mm thick images of the head were obtained. Axial 2 mm thick images of the cervic al spine were obtained with sagittal and coronal reconstruction images generated and reviewed. All CT scans are performed using dose optimization technique as appropriate and may include automated exposure control or mA/KV adjustment according to patient size. FINDINGS: No intracranial hemorrhage, mass, edema or acute intracranial finding. No suspicion for ac lebron infarction. No extra-axial fluid collections. No significant atrophy changes present. There is ch ronic ischemic change scattered in the cerebral white matter. Intracranial findings not substantially different from the 2016 comparison. Mastoid air cells are clear. Chronic sinusitis changes are seen in the frontal sinus, anterior right-side ethmoid air cells and the right maxillary sinus. No acute p aranasal sinus finding. No globe or orbit abnormality seen. Cervical body height and alignment are normal. C4-C7 cervical fusion changes are present. C7-T1 disc space narrowing is present. Anterior endplate spurring present at C3-4 and C7-T1. Facet joint degener ative changes are present. There is significant foraminal stenosis on the left at C3-4 and C4-5. Sign ificant right foraminal stenosis at C5-6 and C6-7. Spinal stenosis is likely evident posterior to C6 and C7 due to bony spurring. No fracture or acute bony abnormality. Central canal detail is inherent ly limited. No paraspinal mass or hematoma. IMPRESSION: Chronic ischemic changes are present but no hemorrhage, edema or acute intracranial find ing. Chronic right-sided sinusitis changes. Postsurgical fusion changes along with bony degenerative change. There are significant multilevel for aminal stenoses present along with spinal stenosis at C6 and C7.
[2021-11-23] MEDS ORDERED: TETANUS & DIPHTHERIA TOX,ADULT 0.5 ML VIAL ONE (16:01)
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
[2021-11-23 16:11] LABS: Urine Blood Negative (Negative); Urine Glucose Negative (Negative); Urine Protein Negative (Negative); Urine Specific Gravity 1.015 (1.005-1.030)
[2021-11-23 17:00] VITALS: TEMP 98.1
[2021-11-23 17:08] VITALS: BP 120/82; O2SAT 99
== END 2021-11-23 16:53 | disposition home or self-care (01) ==
LOC: ER 12:08
DX: I10 Essential (primary) hypertension (principal); S00.83XA Contusion of other part of head, initial encounter; W22.8XXA Striking against or struck by other objects, initial encounter; Z76.0 Encounter for issue of repeat prescription; Z23 Encounter for immunization; Z88.0 Allergy status to penicillin; Z88.5 Allergy status to narcotic agent; Z79.82 Long term (current) use of aspirin; F17.210 Nicotine dependence, cigarettes, uncomplicated; I48.91 Unspecified atrial fibrillation; I50.9 Heart failure, unspecified
CPT/HCPCS: 93005; 85025; 80048; 36415; 83735; 85610; 80178; 80076; 81003; 84484; 83880; 70450; 72125; 71045; 90714; J3010; J7030

== ENCOUNTER 2022-01-23 17:39 | Emergency (ER) | payer OTHER ==
--- OUTSIDE RECORDS SUMMARY | 2022-01-23 17:46 | XMS REPORT | Continuity of Care Document ---
:1960 Author Organization [facility] t Address [address] [place] [address] Care Team Providers Name Role Phone Trudy Villafuerte Attending Clinician Unavailable Tony Swift Attending Clinician Unavailable CHRISTOPHER Attending Clinician Unavailable Jessica ORTIZ Attending Clinician Unavailable Leticia Vasquez MD Attending Clinician Ramón HAYES Attending Clinician Singer MENDOZA Attending Clinician Deonte HAYES Attending Clinician AMY SINGH Attending Clinician Unavailable Jenifer Leal Attending Clinician Unavailable MADHURI DWYER Attending Clinician Unavailable Divina CATHERINE Attending Clinician Unavailable UNDEFINED Admitting Clinician Unavailable Tony Swift Admitting Clinician Unavailable Physician, Primary or Family Admitting Clinician UnavailLeticia Harkins MD Admitting Clinician AMY SINGH Admitting Clinician Unavailable MADHURI DWYER Admitting Clinician Unavailable Divina CATHERINE Admitting Clinician Unavailable Payers Payer Name Policy Type Policy Number Effective Date Expiration Date S [facility] [id number] 2017 DUAL COMPLETE HMO 00:00:00 [facility] [id number] 2014 00:00:00 Problems This patient has no known problems. Allergies, Adverse Reactions, Alerts Allergy Allergy Status Severity Reaction(s) Onset Inactive Treating Comm ents Source Name Type Date Date Clinician Penicill DA Active SV HIVES 0 [facility] [place] 00:[facility]: d 00 [facility] [place] codeine DA Active SV HIVES [facility] 2-15 [place] 00:[facility]: d 00 [facility] [place] Penicill DA Active SV 2019-0 [facility] ins 1-08 Clear 00:00: Pink 00 [facility] codeine DA Active SV 2019-0 [facility] 1-08 Clear 00:00: Pink 00 [facility] Penicill DA Active SV HIVES 2019-0 [facility] ins 1-08 Clear 00:00: Pink 00 [facility] codeine DA Active SV HIVES 2020-0 [facility] 1-08 Clear 00:00: Pink 00 [facility] CEPHALOS Allergy Active N\\T\\V [facility] PORINS 7-03 [facility] CODEINE DRUG Active Anaphylaxis Univ ers INGREDI 818 ity of 00:[place]: [place] [address] [place] [address] Branch CODEINE Allergy Active Hives [facility] 7-15 [facility] PENICILL Allergy Active [facility] INS 3-30 [facility] Center PENICILL DRUG Active Unknown-Cmnt Un ju IN INGREDI 1-04 ity of 00:00: [address] Branch penicill Adverse Active rash [facility] in Reaction [facility] l [facility] ent [facility] Cephalos Adverse Active vomiting [facility] porins Reaction [facility] ent [facility] Medications Ordered Filled Start Stop Current Ordering Indication Dosage Frequency Signature Comments Components Source Medication Medication Date Date Medication? Clinician (SIG) Name Name Buddy Goodwin Yes Na Villafuerte as needed [facility] 3-19 for nausea [facility] 00 l [facility] ent Clinics Albuterol Albuterol Yes Na Villafuerte inhale [address] [facility] Sulfate Sulfate 5-14 vial by [facility] - 00:00: mouth via Mem 00 [facility] Ipratropium Ipratropium Yes Na Villafuerte as [facility] Scotia Scotia 5-14 directed [facility] - 00:[facility]: Memoria 00 [facility] ent Clinics Amlodipine Amlodipine 2017-10 Yes Na Villafuerte [address] [facility] Besylate Besylate 0-29 [facility] - 00:00: Memoria 00 [facility] ent Clinics Clonidine Clonidine Yes Na Villafuerte [address] [facility] HCl HCl 6-27 twice x 1 [facility] - 00:[facility]: week then Memoria 00 1 tablet l [facility] ent [facility] Amitriptyli Amitriptyli Yes Na Villafuerte [address] ne HCl ne HCl [facility] ent Clinics Dulera Dulera Yes Na Villafuerte 2 puffs [facility] Clinics Amiodarone Amiodarone Yes Na Villafuerte [address] HCl HCl [facility] Aspir-81 Aspir-81 Yes Na Villafuerte [address] [facility] Clinics Isosorbide Isosorbide Yes Na Villafuerte [address] [facility] Mononitrate Mononitrate in the [facility] [place] Yes Na Villafuerte [address] Carbonate Carbonate at bedtime [facility] ent Clinics Atorvastati Atorvastati Yes Na Villafuerte [address] [facility] n Calcium n Calcium [facility] Losartan Losartan Yes Na Villafuerte [address] [facility] Potassium Potassium [facility] Gabapentin Gabapentin Yes Na Villafuerte [address] [facility] Carvedilol Carvedilol Yes Na Villafuerte as [facility] directed [facility] HydrALAZINE HydrALAZINE Yes Na Villafuerte [address] [facility] HCl HCl with food [facility] Citalopram Citalopram Yes Na Villafuerte [address] [facility] Hydrobromid Hydrobromid L [facility]kes - e e [facility] l Outpat[facility] ent Clinics Lorazepam Lorazepam Yes Na Villafuerte [address] [facility] as needed [facility] Loa Loa Yes Na Villafuerte [address] [...] [facility] Lactulose Lactulose Yes Na Villafuerte [address] [facility] [place] Yes Na Villafuerte TAKE [address] [facility] Carbonate Carbonate CAPSULE BY [facility] - MOUTH Memoria DAILY AT l BED[facility] Procedures Procedure Date / Time Performed Performing Clinician Lubna calles [id number] 2021-12-16 00:00:00 DWEMA [facility] [id number] 2021-12-15 00:00:00 DWEMA [facility] [id number] 2021-12-13 00:00:00 DWEMA [facility] [id number] 2021-12-13 00:00:00 DWEMA [facility] [id number] 2021-12-13 00:00:00 DWEMA [facility] [id number] 2021-12-13 00:00:00 DWEMA [facility] Clear [facility] [id number] 2021-12-09 00:00:00 [facility] [id number] 2021-12-09 00:00:00 [facility] Encounters Start End Encounter Admission Attending Care Care Encounter Source Date/Time Date/Time Type Type Clinicians Facility Department ID 2022-01-14 Outpatient Villafuerte, Na STLMLC STLMLC [id number] [facility] 13:23[facility]01 [facility] 2021-11-25 Outpatient Villafuerte, Na STLMLC STLMLC [id number] [facility] 11:17[facility]00 [facility] 2021-11-19 Outpatient Villafuerte, Na STLMLC STLMLC [id number] [facility] [address] 14:22:23 [id number] [facility] 2021-11-19 Outpatient Villafuerte, Na STLMLC STLMLC [id number] [facility] 14:21:53 [id number] [facility] 2021-11-19 Outpatient Villafuerte, Na STLMLC STLMLC [id number] [facility] 14:20:23 [id number] [facility] 2021-11-19 Outpatient Villafuerte, Na STLMLC STLMLC [id number] [facility] 14:19:54 [id number] [facility] 2021-11-19 Outpatient Villafuerte, Na STLMLC STLMLC [id number] [facility] 14:10:33 [id number] [facility] 2021-11-19 Outpatient Villafuerte, Na STLMLC STLMLC [id number] 14:08:07 [id number] [facility] 2021-11-19 Outpatient Villafuerte, Na STLMLC STLMLC [id number] 14:04:59 [id number] [facility] 2021-11-19 Outpatient Villafuerte, Na STLMLC STLMLC [id number] 14:04:20 [id number] [facility] 2021-11-19 Outpatient Villafuerte, Na STLMLC STLMLC [id number] 13:58:01 [id number] [facility] 2021-11-19 Outpatient Villafuerte, Na STLMLC STLMLC [id number] 13:47:28 [id number] [facility] 2021-11-19 Outpatient Villafuerte, Na STLMLC STLMLC [id number] [facility] 13:38:03 [id number] [facility] 2021-11-19 Outpatient Villafuerte, Na STLMLC STLMLC [id number] 12:53:40 [id number] [facility] 2021-11-19 Outpatient Villafuerte, Na STLMLC STLMLC [id number] 12:51:30 [id number] [facility] 2021-11-19 Outpatient Villafuerte, Na STLMLC STLMLC [id number] 12:49:34 [id number] [facility] 2021-11-19 Outpatient Villafuerte, Na STLMLC STLMLC [id number] 12:43:54 [id number] [facility] 2021-11-19 Outpatient Villafuerte, Na STLMLC STLMLC [id number] [facility] 12:39:57 [id number] [facility] 2021-11-19 Outpatient Villafuerte, Na STLMLC STLMLC [id number] 12:37:10 [id number] [facility] 2021-11-19 Outpatient Villafuerte, Na STLMLC STLMLC [id number] 12:35:58 [id number] [facility] 2021-11-19 Outpatient Villafuerte, Na STLMLC STLMLC [id number] [facility] 12:20:41 [id number] [facility] 2021-11-19 Outpatient Villafuerte, Na STLMLC STLMLC [id number] [facility] 12:20:03 [id number] [facility] 2021-11-19 Outpatient Villafuerte, Na STLMLC STLMLC [id number] [facility] 11:57:27 [id number] [facility] 2021-11-19 Outpatient Villafuerte, Na STLMLC STLMLC [id number] 11:55:43 [id number] [facility] 2021-11-19 Outpatient Villafuerte, Na STLMLC STLMLC [id number] [facility] 11:54:35 [id number] [facility] 2021-11-19 Outpatient Villafuerte, Na STLMLC STLMLC [id number] [facility] 11:41:38 [id number] [facility] 2021-11-19 Outpatient Villafuerte, Na STLMLC STLMLC [id number] 11:30:36 [id number] [facility] 2021-11-19 Outpatient Villafuerte, Na STLMLC STLMLC [id number] [facility] 11:30:23 [id number] [facility] 2021-11-19 Outpatient Villafuerte, Na STLMLC STLMLC [id number] [facility] 11:30:02 [id number] [facility] 2021-11-19 Outpatient Villafuerte, Na STLMLC STLMLC [id number] 11:16:54 [id number] [facility] 2021-11-19 Outpatient Villafuerte, Na STLMLC STLMLC [id number] 11:16:32 [id number] [facility] 2021-11-19 Outpatient Villafuerte, Na STLMLC STLMLC [id number] 11:04:05 [id number] [facility] 2021-11-19 Outpatient Villafuerte, Na STLMLC STLMLC [id number] 10:58:07 [id number] [facility] 2021-08-[address] [facility] [id number] Univers 19:21:[address] [facility] 2021-08-[address] [facility] [id number] Univers 19:20:49 [facility] 2019-11-01 Inpatient HCAPM MILLY [id number] [facility] 11:33:[id number] [place] [address] 2022-01-20 2022-01-20 ambulatory STLMLC STLMLC [id number] [facility] 2022-01-06 2022-01-06 ambulatory STLMLC STLMLC [id number] [facility] 2022-01-01 2022-01-01 ambulatory STLMLC STLMLC [id number] [facility] 2021-12-09 2021-12-24 Inpatient EM Dweiconnor, HCACL INTE.02 [id number] [facility] 21:23:00 17:38:00 Kajal [id number] [facility] 2021-12-09 2021-12-24 Inpatient EM Dwcassia, HCACL INTE.02 [id number] [facility] 21:23:00 17:38:00 Kajal 92 [facility] 2021-12-11 2021-12-11 Outpatient EL Jeniffer, HCAMN MLAB [id number] [facility] 21:00:00 21:00:00 Kajal [id number] [facility] 2021-12-09 2021-12-09 ambulatory STLMLC STLMLC [id number] [facility] 2021-11-25 2021-11-25 ambulatory STLMLC STLMLC [id number] [facility] 2021-11-21 2021-11-21 ambulatory STLMLC STLMLC [id number] [facility] 2021-11-15 2021-11-15 ambulatory STLMLC STLMLC [id number] [facility] 2021-10-22 2021-10-22 ambulatory STLMLC STLMLC [id number] [facility] 2021-10-20 2021-10-20 ambulatory STLMLC STLMLC [id number] [facility] 2021-09-24 2021-09-24 ambulatory STLMLC STLMLC [id number] [facility] 2021-09-23 2021-09-23 ambulatory STLMLC STLMLC [id number] [facility] 2021-09-17 2021-09-17 ambulatory STLMLC STLMLC [id number] [facility] 2021-09-09 2021-09-09 ambulatory STLMLC STLMLC [id number] [facility] 2021-08-22 2021-08-22 ambulatory STLMLC STLMLC [id number] [facility] 2021-08-15 2021-08-15 Outpatient [facility]LMLC [facility] [id number] [facility] 2021-08-13 2021-08-13 Outpatient [facility]LMLC [facility]ML[facility] [id number] [facility] 2021-07-17 2021-07-17 Outpatient STLMLC [facility]ML[facility] [id number] [facility] 2021-07-14 2021-07-14 Outpatient STLMLC STLMLC [id number] [facility] 2021-06-17 2021-06-17 Outpatient STLMLC [facility]ML[facility] [id number] [facility] 2021-06-06 2021-06-06 Outpatient [facility]LMLC [facility]ML[facility] [id number] [facility] 2021-05-16 2021-05-16 Outpatient STLMLC [facility]LMLC [id number] [facility] 2021-05-08 2021-05-08 Outpatient STLMLC STLMLC [id number] [facility] 2021-05-08 2021-05-08 Outpatient [facility]LMLC [facility]ML[facility] [id number] [facility] 2021-04-30 2021-04-30 Outpatient STLMLC [facility]MLC [id number] [facility] 2021-04-15 2021-04-15 Outpatient STLMLC [facility]ML[facility] [id number] [facility] 2021-04-15 2021-04-15 Outpatient STLMLC [facility]ML[facility] [id number] [facility] 2021-04-10 2021-04-10 Outpatient STLMLC [facility]MLC [id number] [facility] 2021-03-20 2021-03-20 Outpatient STLMLC [facility]MLC [id number] [facility] 2021-03-13 2021-03-13 Outpatient [facility]LMLC [facility]ML[facility] [id number] [facility] 2021-03-12 2021-03-12 Outpatient STLMLC [facility]ML[facility] [id number] [facility] 2021-02-26 2021-02-26 Outpatient STLMLC STLMLC [id number] [facility] 2021-02-10 2021-02-10 Outpatient STLMLC STLML[facility] [id number] [facility] 2021-02-10 2021-02-10 Outpatient STLMLC [facility]MLC [id number] [facility] 2021-02-05 2021-02-05 Outpatient STLMLC STLMLC [id number] [facility] 2021-02-04 2021-02-04 Outpatient [facility]LMLC [facility]ML[facility] [id number] [facility] 2021-01-31 2021-01-31 Outpatient STLMLC STLMLC [id number] [facility] 2021-01-01 2021-01-01 Outpatient STLMLC STLML[facility] [id number] [facility] 2020-12-25 2020-12-25 Outpatient STLMLC [facility]ML[facility] [id number] [facility] 2020-12-03 2020-12-03 Outpatient CHRISTOPHER, [facility] [id number] [place] 00:00:00 00:00:00 RYLEY [address] 2020-11-19 2020-11-19 Outpatient [facility] [id number] [place] 00:00:00 00:00:[address] 2020-11-19 2020-11-19 Outpatient [facility] [id number] [address] [place] [address] 00:00:00 00:00:[address] 2020-11-19 2020-11-19 Outpatient [facility] [id number] [address] [place] [address] 00:00:00 00:00:[address] 2020-11-19 2020-11-19 Outpatient [facility] [id number] [address] [place] [address] 00:00:00 00:00:[address] 2020-11-19 2020-11-19 Outpatient [facility] [id number] [place] 00:00:00 00:00:[address] 2020-11-19 2020-11-19 Outpatient [facility] [id number] [place] 00:00:00 00:00:[address] 2020-11-19 2020-11-19 Outpatient [facility] [id number] [place] 00:00:00 00:00:[address] 2020-11-19 2020-11-19 Outpatient [facility] [id number] [place] 00:00:00 00:00:[address] 2020-11-19 2020-11-19 Outpatient [facility] [id number] [place] 00:00:00 00:00:[address] 2020-11-07 2020-11-07 Outpatient [facility]MLC [facility] [id number] [facility] 2020-08-12 2020-08-12 Outpatient [facility]ML[facility] [id number] [facility] 2020-08-08 2020-08-08 Outpatient [facility]ML[facility] [id number] [facility] 2020-07-22 2020-07-22 Transition Jackie Lopez [id number] 00:00:00 00:00:00 of Care Mirella Castro [id number] [place] [id number] 2020-07-18 2020-07-20 [facility] Darren Vasquez 1.2. [id number] 22:50:00 13:00:00 Encounter Moshe Melgar [id number] [facility] [id number] 2020-07-18 2020-07-18 Emergency Mejia Hdz [id number] 17:31:00 21:56:00 Osmin Clemons [place] [id number] [place] [id number] [place] [id number] 2020-06-25 2020-06-25 [facility] [id number] [facility] 11:20:00 11:20:00 t [facility] Medicine Outpati ent Clinics 2020-05-03 2020-05-03 [facility] [id number] [facility] 14:25:00 14:25:00 t [facility] Medicine Outpati ent Clinics 2020-02-12 2020-02-12 [facility] [id number] 11:15:00 11:15:00 t [facility] Medicine Outpati ent Clinics 2020-01-26 2020-01-26 [facility] [id number] 11:20:00 11:20:00 t [facility]Now [facility] Outpati ent Clinics 2020-01-11 2020-01-11 [facility] [id number] 15:32:00 15:32:00 t [facility] Outpati ent Clinics 2020-01-03 2020-01-03 [facility] [id number] 09:20:00 09:20:00 t [facility] Outpati ent Clinics 2020-01-02 2020-01-02 Outpatient NICOLETTE SINGH BL [id number] 09:54:00 15:59:00 INA 2019-11-13 2019-11-13 [facility] [id number] 14:13:00 14:13:00 t Specialty/U Abigail k[facility] Outpat[facility] ent Clinics 2019-11-01 2019-11-01 Outpatient PATRICIO Leal OUTD [id number] [facility] 23:56:00 23:56:[address] 2019-11-01 2019-11-01 [facility] [id number] 09:20:00 09:20:[address] - Drive [facility] l Medicine Outpati ent Clinics 2019-10-27 2019-10-27 Outpatient MHSE [facility]SE [id number] [facility] 08:50:00 08:50:[address] [facility] 2019-09-05 2019-09-05 [facility] [id number] 09:29:00 09:29:[address] [facility] [address] - Drive [facility] l Medicine Outpati ent Clinics 2019-05-31 2019-05-31 [facility] [id number] [facility] 12:00:00 12:00:[address] - Drive [facility] Medicine l Medicine Outpati ent Clinics 2019-05-30 2019-05-30 [facility] [id number] 15:00:00 15:00:00 [place] Luke s - Drive [facility] l Medicine Outpati ent Clinics 2019-04-26 2019-04-26 [facility] [id number] 15:09:00 15:09:[address] - Drive [facility] l Medicine Outpati ent Clinics 2019-03-30 2019-03-30 [facility] [id number] 15:40:00 15:40:00 [place] Luke [place] - Drive [facility] Medicine l Medicine Outpati ent Clinics 2019-02-23 2019-02-23 Outpatient E MHSE MED [id number] [address] 15:40:00 15:40:[address] [facility] 2019-01-10 2019-01-10 [facility] [id number] 08:41:00 08:41:[address] - Drive [facility] Medicine l Medicine Outpati ent Clinics 2018-12-12 2018-12-12 [facility] [id number] 08:15:00 08:15:[address] - Drive [facility] Medicine l Medicine Outpati ent Clinics 2018-07-27 2018-07-27 [facility] [id number] 15:15:00 15:15:[address] - Drive [facility] Medicine l Medicine Outpati ent Clinics 2018-06-09 2018-06-09 [facility] [id number] [facility] 08:00:00 08:00:00 t [facility] Outpati ent Clinics 2018-05-31 2018-05-31 [facility] [id number] 09:00:00 09:00:00 t [facility] Outpati ent Clinics 2018-04-20 2018-04-20 [facility] [id number] 09:45:00 09:45:00 t [facility] Outpati ent Clinics 2018-04-15 2018-04-15 [facility] [id number] 15:26:00 15:26:00 t [facility] Outpati ent Clinics 2018-03-15 2018-03-15 [facility] [id number] 15:15:00 15:15:00 t [facility] Outpati ent Clinics 2018-02-28 2018-02-28 [facility] [id number] 09:15:00 09:15:00 t [facility] Outpati ent Clinics Results Test Description Test Time Test Comments Results Result Comments Source COVID 19 Asymptomatic IH AG 2021-12-24 12:08:00 Test Item Value Reference Range Interpretation Comme nts COVID 19 Asymptomatic IH AG Negative Negative A negative result is presumptive and (test code = COVNONPUIAG) sh ould be confirmedwith an FDA authorized mole cular assay, if necessary forpa tient management.A positive result does not rule out co-infections w ithother pathogens.This test detects both viable (live) a nd non-viable,SARS -CoV, and SARS-CoV-2. Test performanc e depends on theamount of vi hieu (antigen) in the sample.This sherrill t has not been FDA cleared or appr alfredo; the test hasbeen authori zed by FDA under an Emergency Use A uthorization(EUA) for use by [facility] certified under the CLIA thatme et the requirements to perform mode rate, high or waivedcomplexit y tests. BASIC METABOLIC [id number] 04:35:00 Test Item Value Reference Range Interpretation Comments SODIUM (test code = NA) 137 mEq/L 134-147 N POTASSIUM (test code = 4.9 mEq/L 3.4-5.0 N K) CHLORIDE (test code = 106 mEq/L 100-108 N CL) CARBON DIOXIDE (test 20 mEq/l 21-33 L code = CO2) ANION GAP (test code = 16 0-20 N GAP) GLUCOSE (test code = 84 mg/dL 70-110 N GLU) BLOOD UREA NITROGEN 13 mg/dL 7-18 (test code = BUN) GLOMERULAR FILTRATION 40.9 80-90 L Units of measure = RATE (test code = GFR) ml/mi n/1.73 m2 CREATININE (test code = 1.7 mg/dL 0.6-1.3 H CREAT) CALCIUM (test code = 9.0 mg/dL 8.0-10.5 N CA) BASIC METABOLIC [id number] 04:18:00 Test Item Value Reference Range Interpretation Comments SODIUM (test code = NA) 139 mEq/L 134-147 N POTASSIUM (test code = 4.6 mEq/L 3.4-5.0 N K) CHLORIDE (test code = 106 mEq/L 100-108 N CL) CARBON DIOXIDE (test 26 mEq/l 21-33 N code = CO2) ANION GAP (test code = 11 0-20 N GAP) GLUCOSE (test code = 89 mg/dL 70-110 N GLU) BLOOD UREA NITROGEN 23 mg/dL 7-18 H (test code = BUN) GLOMERULAR FILTRATION 40.9 80-90 L Units of measure = RATE (test code = GFR) ml/mi n/1.73 m2 CREATININE (test code = 1.7 mg/dL 0.6-1.3 H CREAT) CALCIUM (test code = 8.9 mg/dL 8.0-10.5 N CA) BASIC METABOLIC [id number] 08:03:00 Test Item Value Reference Range Interpretation Comments SODIUM (test code = NA) 145 mEq/L 134-147 N POTASSIUM (test code = 4.8 mEq/L 3.4-5.0 N K) CHLORIDE (test code = 105 mEq/L 100-108 N CL) CARBON DIOXIDE (test 29 mEq/l 21-33 N code = CO2) ANION GAP (test code = 16 0-20 N GAP) GLUCOSE (test code = 94 mg/dL 70-110 N GLU) BLOOD UREA NITROGEN 25 mg/dL 7-18 H (test code = BUN) GLOMERULAR FILTRATION 33.9 80-90 L Units of measure = RATE (test code = GFR) ml/mi n/1.73 m2 CREATININE (test code = 2.0 mg/dL 0.6-1.3 H CREAT) CALCIUM (test code = 8.8 mg/dL 8.0-10.5 N CA) [id number] 08:03:00 Test Item Value Reference Range Interpretation Comments PHOSPHOROUS (test code = PHOS) 4.4 MG/DL 2.5-4.9 N [id number] 08:03:00 Test Item Value Reference Range Interpretation Comments MAGNESIUM (test code = MAG) 1.85 mg/dL 1.80-2.40 N CBC W/AUTO [id number] 07:16:00 Test Item Value Reference Range Interpretation Comments WHITE BLOOD CELL (test code = 10.7 x10 3/uL 4.5-11.0 N WBC) RED BLOOD CELL (test code = 3.39 x10 6/uL 4.00-5.60 L RBC) HEMOGLOBIN (test code = HGB) 10.1 g/dL 12.5-16.9 L HEMATOCRIT (test code = HCT) 32.1 % 37.5-50.7 L MEAN CELL VOLUME (test code = 94.7 fL 81.0-99.0 N MCV) MEAN CELL HGB (test code = MCH) 29.8 pg 27.0-33.0 N MEAN CELL HGB CONCETRATION 31.5 g/dL 33.0-37.0 L (test code = MCHC) RED CELL DISTRIBUTION WIDTH CV 14.1 % 11.5-14.5 N (test code = RDW) RED CELL DISTRIBUTION WIDTH SD 48.9 fL 37.0-54.0 N (test code = RDW-SD) PLATELET COUNT (test code = 306 x10 3/uL 150-400 N PLT) MEAN PLATELET VOLUME (test code 12.8 fL 7.0-9.0 H = MPV) NEUTROPHIL % (test code = NT%) 65.8 % 56.0-77.0 N IMMATURE GRANULOCYTE % (test 0.5 % 0.0-2.0 N code = IG%) LYMPHOCYTE % (test code = LY%) 14.7 % 14.0-32.0 N MONOCYTE % (test code = MO%) 11.2 % 4.8-9.0 H EOSINOPHIL % (test code = EO%) 7.1 % 0.3-3.7 H BASOPHIL % (test code = BA%) 0.7 % 0.0-2.0 N NUCLEATED RBC % (test code = 0.0 % 0-0 N NRBC%) NEUTROPHIL # (test code = NT#) 7.05 x10 3/uL 2.0-7.6 N IMMATURE GRANULOCYTE # (test 0.05 x10 3/uL 0.00-0.03 H code = IG#) LYMPHOCYTE # (test code = LY#) 1.57 x10 3/uL 1.0-3.8 N MONOCYTE # (test code = MO#) 1.20 x10 3/uL 0.1-0.8 H EOSINOPHIL # (test code = EO#) 0.76 x10 3/uL 0.0-0.2 H BASOPHIL # (test code = BA#) 0.07 x10 3/uL 0.0-0.2 N NUCLEATED RBC # (test code = 0.00 x10 3/uL 0.0-0.1 N NRBC#) MANUAL DIFF REQUIRED (test code NO = MDIFF) THROMBOPLASTIN TIME [id number] 05:04:00 Test Item Value Reference Range Interpretation Comments THROMBOPLASTIN TIME 43.2 Seconds 25.0-39.5 H Ther apeutic PARTIAL (test code = Range: 50.4 - 88.3 PTT) Seconds Effective 02/07/2019 COMPREHENSIVE METABOLIC [id number] 05:11:00 Test Item Value Reference Range Interpretation Comments SODIUM (test code = NA) 142 mEq/L 134-147 N POTASSIUM (test code = 4.3 mEq/L 3.4-5.0 N K) CHLORIDE (test code = 105 mEq/L 100-108 N CL) CARBON DIOXIDE (test 28 mEq/l 21-33 N code = CO2) ANION GAP (test code = 14 0-20 N GAP) GLUCOSE (test code = 91 mg/dL 70-110 N GLU) BLOOD UREA NITROGEN 26 mg/dL 7-18 H (test code = BUN) GLOMERULAR FILTRATION 32.1 80-90 L Units of measure = RATE (test code = GFR) ml/mi n/1.73 m2 CREATININE (test code = 2.1 mg/dL 0.6-1.3 H CREAT) TOTAL PROTEIN (test 6.8 g/dL 6.4-8.2 N code = PROT) ALBUMIN (test code = 3.00 g/dL 3.4-5.0 L ALB) CALCIUM (test code = 8.7 mg/dL 8.0-10.5 N CA) BILIRUBIN TOTAL (test 0.50 mg/dL 0.0-1.0 N code = BILT) SGOT/AST (test code = 61 IUnit/L 15-37 H AST) SGPT/ALT (test code = 29 IUnit/L 30-65 L ALT) ALKALINE PHOSPHATASE 267 IUnit/L 20-125 H TOTAL (test code = ALKP) CBC W/AUTO [id number] 07:48:00 Test Item Value Reference Range Interpretation Comments WHITE BLOOD CELL (test code = 10.6 x10 3/uL 4.5-11.0 N WBC) RED BLOOD CELL (test code = 3.60 x10 6/uL 4.00-5.60 L RBC) HEMOGLOBIN (test code = HGB) 10.6 g/dL 12.5-16.9 L HEMATOCRIT (test code = HCT) 33.2 % 37.5-50.7 L MEAN CELL VOLUME (test code = 92.2 fL 81.0-99.0 N MCV) MEAN CELL HGB (test code = MCH) 29.4 pg 27.0-33.0 N MEAN CELL HGB CONCETRATION 31.9 g/dL 33.0-37.0 L (test code = MCHC) RED CELL DISTRIBUTION WIDTH CV 13.5 % 11.5-14.5 N (test code = RDW) RED CELL DISTRIBUTION WIDTH SD 46.2 fL 37.0-54.0 N (test code = RDW-SD) PLATELET COUNT (test code = 241 x10 3/uL 150-400 N PLT) MEAN PLATELET VOLUME (test code 13.0 fL 7.0-9.0 H = MPV) NEUTROPHIL % (test code = NT%) 69.4 % 56.0-77.0 N IMMATURE GRANULOCYTE % (test 0.3 % 0.0-2.0 N code = IG%) LYMPHOCYTE % (test code = LY%) 12.5 % 14.0-32.0 L MONOCYTE % (test code = MO%) 10.2 % 4.8-9.0 H EOSINOPHIL % (test code = EO%) 7.0 % 0.3-3.7 H BASOPHIL % (test code = BA%) 0.6 % 0.0-2.0 N NUCLEATED RBC % (test code = 0.0 % 0-0 N NRBC%) NEUTROPHIL # (test code = NT#) 7.36 x10 3/uL 2.0-7.6 N IMMATURE GRANULOCYTE # (test 0.03 x10 3/uL 0.00-0.03 N code = IG#) LYMPHOCYTE # (test code = LY#) 1.33 x10 3/uL 1.0-3.8 N MONOCYTE # (test code = MO#) 1.08 x10 3/uL 0.1-0.8 H EOSINOPHIL # (test code = EO#) 0.74 x10 3/uL 0.0-0.2 H BASOPHIL # (test code = BA#) 0.06 x10 3/uL 0.0-0.2 N NUCLEATED RBC # (test code = 0.00 x10 3/uL 0.0-0.1 N NRBC#) MANUAL DIFF REQUIRED (test code NO = MDIFF) COMPREHENSIVE METABOLIC [id number] 07:35:00 Test Item Value Reference Range Interpretation Comments SODIUM (test code = NA) 142 mEq/L 134-147 N POTASSIUM (test code = 3.9 mEq/L 3.4-5.0 N K) CHLORIDE (test code = 103 mEq/L 100-108 N CL) CARBON DIOXIDE (test 28 mEq/l 21-33 N code = CO2) ANION GAP (test code = 15 0-20 N GAP) GLUCOSE (test code = 103 mg/dL 70-110 N GLU) BLOOD UREA NITROGEN 27 mg/dL 7-18 H (test code = BUN) GLOMERULAR FILTRATION 30.4 80-90 L Units of measure = RATE (test code = GFR) ml/mi n/1.73 m2 CREATININE (test code = 2.2 mg/dL 0.6-1.3 H CREAT) TOTAL PROTEIN (test 6.7 g/dL 6.4-8.2 N code = PROT) ALBUMIN (test code = 3.00 g/dL 3.4-5.0 L ALB) CALCIUM (test code = 8.4 mg/dL 8.0-10.5 N CA) BILIRUBIN TOTAL (test 0.60 mg/dL 0.0-1.0 N code = BILT) SGOT/AST (test code = 56 IUnit/L 15-37 H AST) SGPT/ALT (test code = 32 IUnit/L 30-65 N ALT) ALKALINE PHOSPHATASE 234 IUnit/L 20-125 H TOTAL (test code = ALKP) [id number] 07:35:00 Test Item Value Reference Range Interpretation Comments MAGNESIUM (test code = MAG) 1.63 mg/dL 1.80-2.40 L - XR CHEST 1 [id number] 00:00:00 [facility] 1960 Sex: M FAX: Ember Mendez [place]: [address]: Name: ALHAJI FARAH [facility] : 1960 Age/S: 61/M [address] [place] [address] Unit #: [id number] Loc: G.3360 [place] [address] Phys: Ember Mendez Acct: [id number] Dis Date: Status: ADM IN PHONE #: [phone] Exam Date: 12/20/20211811 FAX #: [phone] Reason: SOB EXAMS: CPT CODE: [id number] XR CHEST 1 V [id number] PROCEDURE INFORMATION: Exam: XR Chest Exam date and time: 2021 5:21 PM Age: 61 years old Clinical indication: Shortness ofbreath; Additional info: SOB TECHNIQUE: Imaging protocol: XR of the chest. Views: 1 view. COMPARISON: CR XR CHEST 1V 12/13/2021 2:54 PM FINDINGS: Lungs:There are patchy bilateral pulmonary opacities most pronounced in the upper lobes. A right IJ dialysis catheter remains in place. Pleural spaces: Unremarkable. No pleural effusion. No pneumothorax. Heart/Mediastinum: Heart size is within normal limits. Prior midline sternotomy.. Bones/joints: Unremarkable. IMPRESSION: Diffuse bilateral pulmonary opacities. at 1955 Reported and signed by: Mauri Tinsley M.D. CC: Ember Mendez Technologist: RT Leodan(Jeannine) Trnscrd Date/Time/By: 2021 (1955) : By: JuanTDO Orig Print D/T: S: 2021 (1955) PAGE 1 Signed ReportBASIC METABOLIC PANEL 2021-12-19 07:35:00 Test Item Value Reference Range Interpretation Comments SODIUM (test code = NA) 138 mEq/L 134-147 N POTASSIUM (test code = 3.9 mEq/L 3.4-5.0 N K) CHLORIDE (test code = 101 mEq/L 100-108 N CL) CARBON DIOXIDE (test 30 mEq/l 21-33 N code = CO2) ANION GAP (test code = 11 0-20 N GAP) GLUCOSE (test code = 84 mg/dL 70-110 N GLU) BLOOD UREA NITROGEN 30 mg/dL 7-18 H (test code = BUN) GLOMERULAR FILTRATION 26.3 80-90 L Units of measure = RATE (test code = GFR) ml/mi n/1.73 m2 CREATININE (test code = 2.5 mg/dL 0.6-1.3 H CREAT) CALCIUM (test code = 8.4 mg/dL 8.0-10.5 N CA) COMPREHENSIVE METABOLIC [id number] 07:39:00 Test Item Value Reference Range Interpretation Comments SODIUM (test code = NA) 139 mEq/L 134-147 N POTASSIUM (test code = 3.6 mEq/L 3.4-5.0 N K) CHLORIDE (test code = 105 mEq/L 100-108 N CL) CARBON DIOXIDE (test 30 mEq/l 21-33 N code = CO2) ANION GAP (test code = 7 0-20 N GAP) GLUCOSE (test code = 83 mg/dL 70-110 N GLU) BLOOD UREA NITROGEN 24 mg/dL 7-18 H (test code = BUN) GLOMERULAR FILTRATION 24.1 80-90 L Units of measure = RATE (test code = GFR) ml/mi n/1.73 m2 CREATININE (test code = 2.7 mg/dL 0.6-1.3 H CREAT) TOTAL PROTEIN (test 6.6 g/dL 6.4-8.2 N code = PROT) ALBUMIN (test code = 3.10 g/dL 3.4-5.0 L ALB) CALCIUM (test code = 8.5 mg/dL 8.0-10.5 N CA) BILIRUBIN TOTAL (test 0.60 mg/dL 0.0-1.0 N code = BILT) SGOT/AST (test code = 59 IUnit/L 15-37 H AST) SGPT/ALT (test code = 27 IUnit/L 30-65 L ALT) ALKALINE PHOSPHATASE 124 IUnit/L 20-125 TOTAL (test code = ALKP) [id number] 07:39:00 Test Item Value Reference Range Interpretation Comments MAGNESIUM (test code = MAG) 1.88 mg/dL 1.80-2.40 COMPREHENSIVE METABOLIC [id number] 08:12:00 Test Item Value Reference Range Interpretation Comments SODIUM (test code = NA) 141 mEq/L 134-147 N POTASSIUM (test code = 3.3 mEq/L 3.4-5.0 L K) CHLORIDE (test code = 103 mEq/L 100-108 N CL) CARBON DIOXIDE (test 31 mEq/l 21-33 N code = CO2) ANION GAP (test code = 10 0-20 N GAP) GLUCOSE (test code = 80 mg/dL 70-110 N GLU) BLOOD UREA NITROGEN 18 mg/dL 7-18 (test code = BUN) GLOMERULAR FILTRATION 32.2 80-90 L Units of measure = RATE (test code = GFR) ml/mi n/1.73 m2 CREATININE (test code = 2.1 mg/dL 0.6-1.3 H CREAT) TOTAL PROTEIN (test 6.5 g/dL 6.4-8.2 N code = PROT) ALBUMIN (test code = 2.90 g/dL 3.4-5.0 L ALB) CALCIUM (test code = 8.5 mg/dL 8.0-10.5 N CA) BILIRUBIN TOTAL (test 0.60 mg/dL 0.0-1.0 N code = BILT) SGOT/AST (test code = 24 IUnit/L 15-37 N AST) SGPT/ALT (test code = 16 IUnit/L 30-65 L ALT) ALKALINE PHOSPHATASE 58 IUnit/L 20-125 N TOTAL (test code = ALKP) [id number] 08:12:00 Test Item Value Reference Range Interpretation Comments PHOSPHOROUS (test code = PHOS) 2.8 MG/DL 2.5-4.9 N [id number] 08:12:00 Test Item Value Reference Range Interpretation Comments MAGNESIUM (test code = MAG) 1.54 mg/dL 1.80-2.40 L CBC W/AUTO [id number] 07:38:00 Test Item Value Reference Range Interpretation Comments WHITE BLOOD CELL (test code = 9.9 x10 3/uL 4.5-11.0 N WBC) RED BLOOD CELL (test code = 3.73 x10 6/uL 4.00-5.60 L RBC) HEMOGLOBIN (test code = HGB) 11.1 g/dL 12.5-16.9 L HEMATOCRIT (test code = HCT) 33.6 % 37.5-50.7 L MEAN CELL VOLUME (test code = 90.1 fL 81.0-99.0 N MCV) MEAN CELL HGB (test code = MCH) 29.8 pg 27.0-33.0 N MEAN CELL HGB CONCETRATION 33.0 g/dL 33.0-37.0 N (test code = MCHC) RED CELL DISTRIBUTION WIDTH CV 14.0 % 11.5-14.5 N (test code = RDW) RED CELL DISTRIBUTION WIDTH SD 45.7 fL 37.0-54.0 N (test code = RDW-SD) PLATELET COUNT (test code = 194 x10 3/uL 150-400 N PLT) MEAN PLATELET VOLUME (test code 13.0 fL 7.0-9.0 H = MPV) NEUTROPHIL % (test code = NT%) 70.5 % 56.0-77.0 N IMMATURE GRANULOCYTE % (test 0.5 % 0.0-2.0 N code = IG%) LYMPHOCYTE % (test code = LY%) 14.6 % 14.0-32.0 N MONOCYTE % (test code = MO%) 11.2 % 4.8-9.0 H EOSINOPHIL % (test code = EO%) 2.9 % 0.3-3.7 N BASOPHIL % (test code = BA%) 0.3 % 0.0-2.0 N NUCLEATED RBC % (test code = 0.0 % 0-0 N NRBC%) NEUTROPHIL # (test code = NT#) 6.95 x10 3/uL 2.0-7.6 N IMMATURE GRANULOCYTE # (test 0.05 x10 3/uL 0.00-0.03 H code = IG#) LYMPHOCYTE # (test code = LY#) 1.44 x10 3/uL 1.0-3.8 N MONOCYTE # (test code = MO#) 1.11 x10 3/uL 0.1-0.8 H EOSINOPHIL # (test code = EO#) 0.29 x10 3/uL 0.0-0.2 H BASOPHIL # (test code = BA#) 0.03 x10 3/uL 0.0-0.2 N NUCLEATED RBC # (test code = 0.00 x10 3/uL 0.0-0.1 N NRBC#) MANUAL DIFF REQUIRED (test code NO = MDIFF) ACUTE HEPATITIS [id number] 08:14:00 Test Item Value Reference Range Interpretation Comments AB HEPATITIS A NON REACTIVE NON REACT. IGM (test code = INDEX HAVMAB) AG HEPATITIS B NON REACTIVE NonReactive SURFACE (test INDEX code = HBSAG) AB HEPATITIS B NON REACTIVE NON REACT. CORE IGM (test INDEX code = HBCMAB) AB HEPATITIS C REACTIVE INDEX NON REACT. A A reactive antibody (test code = test is not patti gnostic HCVAB) of activehepati tis C infection. A confirmatory te st such as a [employer] d Test for HCV RNA sherrill t is recommended if clinicallyindic ated. COMMENTS: At start of hemodialysisAB HEPATITIS B [id number] 08:14:00 Test Item Value Reference Range Interpretation Comments AB HEPATITIS B < 3.1 mIU/mL See_Comment L Status of I mmunity SURFACE (test code = HBSAB) Anti-HBs Level --- I nconsi stent with Immu nity 0.0 - 9.9Consistent w ith Immunity >9.9Performed A t: HD [facility] [address] [id number] Ta Yates MD Ph:[phone] [Automated mess age] The system [employer] generated this result transmitted ref erence range: Immunity >9.9. The reference r tanner was not used to interpret this result as normal/abnor mal. COMMENTS: At start of hemodialysisBASIC METABOLIC [id number] 05:09:00 Test Item Value Reference Range Interpretation Comments SODIUM (test code = NA) 142 mEq/L 134-147 N POTASSIUM (test code = 4.0 mEq/L 3.4-5.0 N K) CHLORIDE (test code = 102 mEq/L 100-108 N CL) CARBON DIOXIDE (test 30 mEq/l 21-33 N code = CO2) ANION GAP (test code = 14 0-20 N GAP) GLUCOSE (test code = 90 mg/dL 70-110 N GLU) BLOOD UREA NITROGEN 28 mg/dL 7-18 H (test code = BUN) GLOMERULAR FILTRATION 20.5 80-90 L Units of measure = RATE (test code = GFR) ml/mi n/1.73 m2 CREATININE (test code = 3.1 mg/dL 0.6-1.3 H CREAT) CALCIUM (test code = 8.9 mg/dL 8.0-10.5 N CA) CBC W/AUTO [id number] 04:44:00 Test Item Value Reference Range Interpretation Comments WHITE BLOOD CELL (test code = 12.7 x10 3/uL 4.5-11.0 H WBC) RED BLOOD CELL (test code = 3.54 x10 6/uL 4.00-5.60 L RBC) HEMOGLOBIN (test code = HGB) 10.7 g/dL 12.5-16.9 L HEMATOCRIT (test code = HCT) 32.3 % 37.5-50.7 L MEAN CELL VOLUME (test code = 91.2 fL 81.0-99.0 N MCV) MEAN CELL HGB (test code = 30.2 pg 27.0-33.0 N MCH) MEAN CELL HGB CONCETRATION 33.1 g/dL 33.0-37.0 N (test code = MCHC) RED CELL DISTRIBUTION WIDTH CV 13.9 % 11.5-14.5 N (test code = RDW) PLATELET COUNT (test code = 155 x10 3/uL 150-400 N PLT) NEUTROPHIL % (test code = NT%) 79.2 % 56.0-77.0 H LYMPHOCYTE % (test code = LY%) 7.6 % 14.0-32.0 L NEUTROPHIL # (test code = NT#) 10.07 x10 3/uL 2.0-7.6 H LYMPHOCYTE # (test code = LY#) 0.97 x10 3/uL 1.0-3.8 L MANUAL DIFF REQUIRED (test NO code = MDIFF) RED CELL DISTRIBUTION WIDTH SD 47.0 fL 37.0-54.0 N (test code = RDW-SD) MEAN PLATELET VOLUME (test 12.6 fL 7.0-9.0 H code = MPV) IMMATURE GRANULOCYTE % (test 0.6 % 0.0-2.0 N code = IG%) MONOCYTE % (test code = MO%) 11.2 % 4.8-9.0 H EOSINOPHIL % (test code = EO%) 1.1 % 0.3-3.7 N BASOPHIL % (test code = BA%) 0.3 % 0.0-2.0 N NUCLEATED RBC % (test code = 0.0 % 0-0 N NRBC%) IMMATURE GRANULOCYTE # (test 0.07 x10 3/uL 0.00-0.03 H code = IG#) MONOCYTE # (test code = MO#) 1.43 x10 3/uL 0.1-0.8 H EOSINOPHIL # (test code = EO#) 0.14 x10 3/uL 0.0-0.2 N BASOPHIL # (test code = BA#) 0.04 x10 3/uL 0.0-0.2 N NUCLEATED RBC # (test code = 0.00 x10 3/uL 0.0-0.1 N NRBC#) BASIC METABOLIC [id number] 08:51:00 Test Item Value Reference Range Interpretation Comments SODIUM (test code = NA) 140 mEq/L 134-147 N POTASSIUM (test code = 4.0 mEq/L 3.4-5.0 N K) CHLORIDE (test code = 103 mEq/L 100-108 N CL) CARBON DIOXIDE (test 28 mEq/l 21-33 N code = CO2) ANION GAP (test code = 13 0-20 N GAP) GLUCOSE (test code = 97 mg/dL 70-110 N GLU) BLOOD UREA NITROGEN 45 mg/dL 7-18 H (test code = BUN) GLOMERULAR FILTRATION 11.6 80-90 L Units of measure = RATE (test code = GFR) ml/mi n/1.73 m2 CREATININE (test code = 5.1 mg/dL 0.6-1.3 H CREAT) CALCIUM (test code = 8.0 mg/dL 8.0-10.5 N CA) [id number] 08:51:00 Test Item Value Reference Range Interpretation Comments PHOSPHOROUS (test code = PHOS) 4.6 MG/DL 2.5-4.9 N [id number] 08:51:00 Test Item Value Reference Range Interpretation Comments MAGNESIUM (test code = MAG) 1.97 mg/dL 1.80-2.40 N CBC W/AUTO [id number] 08:09:00 Test Item Value Reference Range Interpretation Comments WHITE BLOOD CELL (test code = 11.8 x10 3/uL 4.5-11.0 H WBC) RED BLOOD CELL (test code = 3.26 x10 6/uL 4.00-5.60 L RBC) HEMOGLOBIN (test code = HGB) 9.9 g/dL 12.5-16.9 L HEMATOCRIT (test code = HCT) 30.0 % 37.5-50.7 L MEAN CELL VOLUME (test code = 92.0 fL 81.0-99.0 N MCV) MEAN CELL HGB (test code = MCH) 30.4 pg 27.0-33.0 N MEAN CELL HGB CONCETRATION 33.0 g/dL 33.0-37.0 N (test code = MCHC) RED CELL DISTRIBUTION WIDTH CV 14.0 % 11.5-14.5 N (test code = RDW) RED CELL DISTRIBUTION WIDTH SD 47.7 fL 37.0-54.0 N (test code = RDW-SD) PLATELET COUNT (test code = 143 x10 3/uL 150-400 L PLT) IMMATURE PLATELET FRACTION 11.0 % 0.9-11.2 N (test code = IPF) MEAN PLATELET VOLUME (test code 13.1 fL 7.0-9.0 H = MPV) NEUTROPHIL % (test code = NT%) 79.7 % 56.0-77.0 H IMMATURE GRANULOCYTE % (test 0.5 % 0.0-2.0 N code = IG%) LYMPHOCYTE % (test code = LY%) 8.1 % 14.0-32.0 L MONOCYTE % (test code = MO%) 10.9 % 4.8-9.0 H EOSINOPHIL % (test code = EO%) 0.5 % 0.3-3.7 N BASOPHIL % (test code = BA%) 0.3 % 0.0-2.0 N NUCLEATED RBC % (test code = 0.0 % 0-0 N NRBC%) NEUTROPHIL # (test code = NT#) 9.41 x10 3/uL 2.0-7.6 H IMMATURE GRANULOCYTE # (test 0.06 x10 3/uL 0.00-0.03 H code = IG#) LYMPHOCYTE # (test code = LY#) 0.96 x10 3/uL 1.0-3.8 L MONOCYTE # (test code = MO#) 1.29 x10 3/uL 0.1-0.8 H EOSINOPHIL # (test code = EO#) 0.06 x10 3/uL 0.0-0.2 N BASOPHIL # (test code = BA#) 0.03 x10 3/uL 0.0-0.2 N NUCLEATED RBC # (test code = 0.00 x10 3/uL 0.0-0.1 N NRBC#) MANUAL DIFF REQUIRED (test code NO = MDDEANA) RENAL FUNCTION [id number] 04:59:00 Test Item Value Reference Range Interpretation Comments SODIUM (test code = NA) 142 mEq/L 134-147 N POTASSIUM (test code = 4.1 mEq/L 3.4-5.0 K) CHLORIDE (test code = 103 mEq/L 100-108 CL) CARBON DIOXIDE (test 28 mEq/l 21-33 code = CO2) ANION GAP (test code = 15 0-20 N GAP) GLUCOSE (test code = 116 mg/dL 70-110 H GLU) BLOOD UREA NITROGEN 30 mg/dL 7-18 H (test code = BUN) GLOMERULAR FILTRATION 13.0 80-90 L Units of measure = RATE (test code = GFR) ml/mi n/1.73 m2 CREATININE (test code = 4.6 mg/dL 0.6-1.3 H CREAT) ALBUMIN (test code = 3.30 g/dL 3.4-5.0 L ALB) CALCIUM (test code = CA) 8.2 mg/dL 8.0-10.5 N PHOSPHOROUS (test code = 3.9 MG/DL 2.5-4.9 N PHOS) BASIC METABOLIC [id number] 13:39:00 Test Item Value Reference Range Interpretation Comments SODIUM (test code = NA) 140 mEq/L 134-147 N POTASSIUM (test code = 5.2 mEq/L 3.4-5.0 H K) CHLORIDE (test code = 111 mEq/L 100-108 H CL) CARBON DIOXIDE (test 21 mEq/l 21-33 N code = CO2) ANION GAP (test code = 13 0-20 N GAP) GLUCOSE (test code = 94 mg/dL 70-110 N GLU) BLOOD UREA NITROGEN 47 mg/dL 7-18 H (test code = BUN) GLOMERULAR FILTRATION 8.6 80-90 L Units of measure = RATE (test code = GFR) ml/mi n/1.73 m2 CREATININE (test code = 6.6 mg/dL 0.6-1.3 H CREAT) CALCIUM (test code = 8.6 mg/dL 8.0-10.5 N CA) CBC W/AUTO [id number] 13:32:00 Test Item Value Reference Range Interpretation Comments WHITE BLOOD CELL (test code = 8.9 x10 3/uL 4.5-11.0 N WBC) RED BLOOD CELL (test code = 3.45 x10 6/uL 4.00-5.60 L RBC) HEMOGLOBIN (test code = HGB) 10.3 g/dL 12.5-16.9 L HEMATOCRIT (test code = HCT) 32.5 % 37.5-50.7 L MEAN CELL VOLUME (test code = 94.2 fL 81.0-99.0 N MCV) MEAN CELL HGB (test code = MCH) 29.9 pg 27.0-33.0 N MEAN CELL HGB CONCETRATION 31.7 g/dL 33.0-37.0 L (test code = MCHC) RED CELL DISTRIBUTION WIDTH CV 14.0 % 11.5-14.5 N (test code = RDW) RED CELL DISTRIBUTION WIDTH SD 48.3 fL 37.0-54.0 N (test code = RDW-SD) PLATELET COUNT (test code = 133 x10 3/uL 150-400 L PLT) MEAN PLATELET VOLUME (test code 12.2 fL 7.0-9.0 H = MPV) NEUTROPHIL % (test code = NT%) 70.0 % 56.0-77.0 N IMMATURE GRANULOCYTE % (test 0.3 % 0.0-2.0 N code = IG%) LYMPHOCYTE % (test code = LY%) 16.6 % 14.0-32.0 N MONOCYTE % (test code = MO%) 9.9 % 4.8-9.0 H EOSINOPHIL % (test code = EO%) 2.6 % 0.3-3.7 N BASOPHIL % (test code = BA%) 0.6 % 0.0-2.0 N NUCLEATED RBC % (test code = 0.0 % 0-0 N NRBC%) NEUTROPHIL # (test code = NT#) 6.25 x10 3/uL 2.0-7.6 N IMMATURE GRANULOCYTE # (test 0.03 x10 3/uL 0.00-0.03 N code = IG#) LYMPHOCYTE # (test code = LY#) 1.48 x10 3/uL 1.0-3.8 N MONOCYTE # (test code = MO#) 0.88 x10 3/uL 0.1-0.8 H EOSINOPHIL # (test code = EO#) 0.23 x10 3/uL 0.0-0.2 H BASOPHIL # (test code = BA#) 0.05 x10 3/uL 0.0-0.2 N NUCLEATED RBC # (test code = 0.00 x10 3/uL 0.0-0.1 N NRBC#) MANUAL DIFF REQUIRED (test code NO = MDIFF) POC ARTERIAL BLOOD [id number] 12:52:00 Test Item Value Reference Range Interpretation Comments POC ARTERIAL BLOOD GAS PH (test 7.356 7.35-7.45 N code = POCPHA) POC ARTERIAL BLOOD GAS PCO2 33.7 mmHg 35.0-45 L (test code = [id number]) POC TCO2 ARTERIAL (test code = 20.0 POCTCO2) POC ARTERIAL BLOOD GAS PO2 (test 47.4 mmHg 80-100.0 LL code = [id number]) POC HCO3 ARTERIAL (test code = 18.9 MMOL/L 22.0-26.0 L [id number]) POC BASE EXCESS (test code = -6.7 MMOL/L -4.0-4.0 L POCBEA) POC O2 SATURATION (test code = 82.4 % 90-100 L POCO2S) FIO2 (test code = FIO2A) 28 % PaO2/FiO2 (test code = [id number]) 169.28 mm/Hg ABG DELIVERY (test code = JESS) Cannula ABG TEMPERATURE (test code = 98 F TEMPA) ABG SITE (test code = SITEA) R [facility] COBY'S TEST (test code = Positive ALLENS) COMPREHENSIVE METABOLIC [id number] 08:12:00 Test Item Value Reference Range Interpretation Comments SODIUM (test code = NA) 141 mEq/L 134-147 N POTASSIUM (test code = 4.7 mEq/L 3.4-5.0 N K) CHLORIDE (test code = 111 mEq/L 100-108 H CL) CARBON DIOXIDE (test 19 mEq/l 21-33 L code = CO2) ANION GAP (test code = 15 0-20 N GAP) GLUCOSE (test code = 81 mg/dL 70-110 N GLU) BLOOD UREA NITROGEN 45 mg/dL 7-18 H (test code = BUN) GLOMERULAR FILTRATION 8.9 80-90 L Units of measure = RATE (test code = GFR) ml/mi n/1.73 m2 CREATININE (test code = 6.4 mg/dL 0.6-1.3 H CREAT) TOTAL PROTEIN (test 6.7 g/dL 6.4-8.2 N code = PROT) ALBUMIN (test code = 3.60 g/dL 3.4-5.0 N ALB) CALCIUM (test code = 8.5 mg/dL 8.0-10.5 N CA) BILIRUBIN TOTAL (test 0.70 mg/dL 0.0-1.0 N code = BILT) SGOT/AST (test code = 42 IUnit/L 15-37 H AST) SGPT/ALT (test code = 58 IUnit/L 30-65 N ALT) ALKALINE PHOSPHATASE 115 IUnit/L 20-125 N TOTAL (test code = ALKP) CBC W/AUTO [id number] 08:02:00 Test Item Value Reference Range Interpretation Comments WHITE BLOOD CELL (test code = 9.0 x10 3/uL 4.5-11.0 N WBC) RED BLOOD CELL (test code = 3.33 x10 6/uL 4.00-5.60 L RBC) HEMOGLOBIN (test code = HGB) 10.1 g/dL 12.5-16.9 L HEMATOCRIT (test code = HCT) 31.5 % 37.5-50.7 L MEAN CELL VOLUME (test code = 94.6 fL 81.0-99.0 N MCV) MEAN CELL HGB (test code = MCH) 30.3 pg 27.0-33.0 N MEAN CELL HGB CONCETRATION 32.1 g/dL 33.0-37.0 L (test code = MCHC) RED CELL DISTRIBUTION WIDTH CV 14.2 % 11.5-14.5 N (test code = RDW) RED CELL DISTRIBUTION WIDTH SD 49.1 fL 37.0-54.0 N (test code = RDW-SD) PLATELET COUNT (test code = 141 x10 3/uL 150-400 L PLT) MEAN PLATELET VOLUME (test code 12.0 fL 7.0-9.0 H = MPV) NEUTROPHIL % (test code = NT%) 76.0 % 56.0-77.0 N IMMATURE GRANULOCYTE % (test 0.4 % 0.0-2.0 N code = IG%) LYMPHOCYTE % (test code = LY%) 12.9 % 14.0-32.0 L MONOCYTE % (test code = MO%) 7.9 % 4.8-9.0 N EOSINOPHIL % (test code = EO%) 2.2 % 0.3-3.7 N BASOPHIL % (test code = BA%) 0.6 % 0.0-2.0 N NUCLEATED RBC % (test code = 0.0 % 0-0 N NRBC%) NEUTROPHIL # (test code = NT#) 6.83 x10 3/uL 2.0-7.6 N IMMATURE GRANULOCYTE # (test 0.04 x10 3/uL 0.00-0.03 H code = IG#) LYMPHOCYTE # (test code = LY#) 1.16 x10 3/uL 1.0-3.8 N MONOCYTE # (test code = MO#) 0.71 x10 3/uL 0.1-0.8 N EOSINOPHIL # (test code = EO#) 0.20 x10 3/uL 0.0-0.2 N BASOPHIL # (test code = BA#) 0.05 x10 3/uL 0.0-0.2 N NUCLEATED RBC # (test code = 0.00 x10 3/uL 0.0-0.1 N NRBC#) MANUAL DIFF REQUIRED (test code NO = MDIFF) - XR CHEST 1 [id number] 00:00:00 [facility] : 1960 Sex: M FAX: Thomas Wilkes [phone] [place]: St: ADM Name: ALHAJI FARAH [facility] Amarilis Pink : 1960 Age/S: 60/M [address] [place] [address] Unit #: [id number] Loc: [address] [address] Phys: Rasheeda Ahuja MD Acct: [id number] Dis Date: Status: ADM IN PHONE #: [phone] Exam Date: 12/13/2021 1534 FAX #: [phone] Reason: CHECK PLACEMENT OF TRIALYSIS EXAMS: CPT CODE: [id number] XR CHEST 1 V [id number] PROCEDURE INFORMATION: Exam: XR Chest Exam date and time: 12/13/2021 2:54 PM Age: 60 years old Clinical indication: Device placement; Other: Check placement of trialysis TECHNIQUE: [facility] view. COMPARISON: CR XR CHEST 1V 12/09/2021 7:22 PM FINDINGS: Tubes, catheters and devices: Right neck dialysis catheter tip is positioned over the SVC- atrial junction region. Lungs: Moderate degree bilateral perihilar and basilar interstitial alveolar pulmonary edema versus infiltrates, pneumonia within the lungs. The pulmonary opacities are more prominent within the right lung. Progression of lung opacities is demonstrated. Pleural spaces: Unremarkable. No pleural effusion. No pneumothorax. Heart/Mediastinum: Cardiac silhouette appears mildly enlarged. Bones/joints: Sternotomy wires, hardware is demonstrated. IMPRESSION: 1. Mild enlarged cardiac silhouette. 2. Moderate pulmonary edema versus infiltrates, pneumonia. Progression. 3. Postsurgical ch anges. at 1557 Reported and signed by: Wilver Pearl M.D. CC: Thomas Ahuja MD Technologist: RT Samira(R) Trnscrd Date/Time/By: 12/13/2021 (1109) : By: [email or web address] Print D/T: S: 12/13/2021 (5826) PAGE 1 Signed Report COMPREHENSIVE METABOLIC [id number] 04:36:00 Test Item Value Reference Range Interpretation Comments SODIUM (test code = NA) 143 mEq/L 134-147 N POTASSIUM (test code = 4.7 mEq/L 3.4-5.0 N K) CHLORIDE (test code = 111 mEq/L 100-108 H CL) CARBON DIOXIDE (test 24 mEq/l 21-33 N code = CO2) ANION GAP (test code = 12 0-20 N GAP) GLUCOSE (test code = 102 mg/dL 70-110 N GLU) BLOOD UREA NITROGEN 34 mg/dL 7-18 H (test code = BUN) GLOMERULAR FILTRATION 11.3 80-90 L Units of measure = RATE (test code = GFR) ml/mi n/1.73 m2 CREATININE (test code = 5.2 mg/dL 0.6-1.3 H CREAT) TOTAL PROTEIN (test 6.7 g/dL 6.4-8.2 N code = PROT) ALBUMIN (test code = 3.60 g/dL 3.4-5.0 N ALB) CALCIUM (test code = 8.6 mg/dL 8.0-10.5 N CA) BILIRUBIN TOTAL (test 0.80 mg/dL 0.0-1.0 code = BILT) SGOT/AST (test code = 107 IUnit/L 15-37 H AST) SGPT/ALT (test code = 91 IUnit/L 30-65 H ALT) ALKALINE PHOSPHATASE 120 IUnit/L 20-125 TOTAL (test code = ALKP) [id number] 04:36:00 Test Item Value Reference Range Interpretation Comments PHOSPHOROUS (test code = PHOS) 4.8 MG/DL 2.5-4.9 N [id number] 04:36:00 Test Item Value Reference Range Interpretation Comments MAGNESIUM (test code = MAG) 2.52 mg/dL 1.80-2.40 H CBC W/AUTO [id number] 04:32:00 Test Item Value Reference Range Interpretation Comments WHITE BLOOD CELL (test code = 10.1 x10 3/uL 4.5-11.0 N WBC) RED BLOOD CELL (test code = 3.98 x10 6/uL 4.00-5.60 L RBC) HEMOGLOBIN (test code = HGB) 12.0 g/dL 12.5-16.9 L HEMATOCRIT (test code = HCT) 37.7 % 37.5-50.7 N MEAN CELL VOLUME (test code = 94.7 fL 81.0-99.0 N MCV) MEAN CELL HGB (test code = MCH) 30.2 pg 27.0-33.0 N MEAN CELL HGB CONCETRATION 31.8 g/dL 33.0-37.0 L (test code = MCHC) RED CELL DISTRIBUTION WIDTH CV 13.6 % 11.5-14.5 N (test code = RDW) PLATELET COUNT (test code = 163 x10 3/uL 150-400 N PLT) NEUTROPHIL % (test code = NT%) 76.9 % 56.0-77.0 N LYMPHOCYTE % (test code = LY%) 13.2 % 14.0-32.0 L NEUTROPHIL # (test code = NT#) 7.76 x10 3/uL 2.0-7.6 H LYMPHOCYTE # (test code = LY#) 1.33 x10 3/uL 1.0-3.8 N MANUAL DIFF REQUIRED (test code NO = MDIFF) RED CELL DISTRIBUTION WIDTH SD 47.8 fL 37.0-54.0 N (test code = RDW-SD) MEAN PLATELET VOLUME (test code 11.8 fL 7.0-9.0 H = MPV) IMMATURE GRANULOCYTE % (test 0.5 % 0.0-2.0 N code = IG%) MONOCYTE % (test code = MO%) 5.9 % 4.8-9.0 N EOSINOPHIL % (test code = EO%) 2.9 % 0.3-3.7 N BASOPHIL % (test code = BA%) 0.6 % 0.0-2.0 N NUCLEATED RBC % (test code = 0.0 % 0-0 N NRBC%) IMMATURE GRANULOCYTE # (test 0.05 x10 3/uL 0.00-0.03 H code = IG#) MONOCYTE # (test code = MO#) 0.59 x10 3/uL 0.1-0.8 N EOSINOPHIL # (test code = EO#) 0.29 x10 3/uL 0.0-0.2 H BASOPHIL # (test code = BA#) 0.06 x10 3/uL 0.0-0.2 N NUCLEATED RBC # (test code = 0.00 x10 3/uL 0.0-0.1 N NRBC#) UR OSMOLALITY [id number] 04:21:00 Test Item Value Reference Range Interpretation Comments UR OSMOLALITY RANDOM (test code = 247 MOS/KG 300-1000 L OSMOU) URINALYSIS [id number] 04:21:00 Test Item Value Reference Range Interpretation Comments UA COLOR (test code = COLU) YELLOW YEL/STRAW UA APPEARANCE (test code = SL CLOUDY CLEAR APPU) UA GLUCOSE DIPSTICK (test code NEGATIVE NEGATIVE = DGLUU) UA BILIRUBIN DIPSTICK (test NEGATIVE NEGATIVE code = BILU) UA KETONE DIPSTICK (test code = NEGATIVE NEGATIVE KETU) UA SPECIFIC GRAVITY (test code 1.008 1.005-1.030 N = SGU) UA BLOOD DIPSTICK (test code = 3+ NEGATIVE A DONNY) UA PH DIPSTICK (test code = 6.0 5.0-7.0 N [place]) UA PROTEIN DIPSTICK (test code NEGATIVE NEGATIVE = PROU) UA UROBILINIOGEN DIPSTICK (test 0.2 mg/dL 0.2-1.0 code = URO) UA NITRITE DIPSTICK (test code NEGATIVE NEGATIVE = TAN) UA LEUKOCYTE ESTERASE DIPSTICK NEGATIVE NEGATIVE (test code = LEUU) UA RBC (test code = RBCU) >50 RBC/HPF 0-3 A UA WBC NO REFLEX (test code = 10-20 WBC/HPF 0-3 A WBCUCL) UA BACTERIA (test code = BACU) TRACE /HPF NONE SEEN UA SQUAMOUS CELLS (test code = 0-5 /HPF NONE SEEN SQU) UA MUCUS (test code = MUCU) TRACE /LPF NONE SEEN UA AMORPHOUS SEDIMENT (test TRACE /HPF NONE code = AMORU) UR SODIUM [id number] 04:21:00 Test Item Value Reference Range Interpretation Comments UR SODIUM RANDOM 70 MEQ/L The Referen ce Range and (test code = SARA) Method Per formance specificationsh ave not been established for this fluid. The test result should be correlated into the clinical context forinte rpretation. UR PROTEIN [id number] 04:21:00 Test Item Value Reference Range Interpretation Comments UR PROTEIN RANDOM (test code = 34 mg/dL PROTU) UR CREATININE [id number] 04:21:00 Test Item Value Reference Range Interpretation Comments UR CREATININE 55.5 mg/dL The Reference Range and RANDOM (test code Method Per formance = CREATU) specificationsh ave not been establishe d for this fluid. The test resultshould be correlated into the clinical contex t forinterpretati on. UR OSMOLALITY [id number] 04:21:00 Test Item Value Reference Range Interpretation Comments UR OSMOLALITY RANDOM (test code = 247 MOS/KG 300-1000 L OSMOU) - US RETROPERITONEAL [id number] 00:00[facility]00 [facility] 1960 Sex: M Name: ALHAJI FARAH [facility] : 1960ge/S: 60 / M [address] [place] [address] Unit #: [id number] Loc: [place] [address] Phys: Ember Mendez Acct: [id number] Dis Date: Status: ADM IN PHONE#: [phone] Exam Date: 12/12/2021 0748 FAX #: [phone] Reason:KAT EXAMS: CPT CODE: [id number] US RETROPERITONEAL COM [id number] PROCEDURE INFORMATION: Exam: US Retroperitoneal; Complete; Kidneys and Bladder Exam date and time: 12/12/2021 7:18 AM Age: 60 years old Clinical indication: Condition or disease;Other: Kat TECHNIQUE: Imaging protocol: Real-time ultrasound of the retroperitoneum with image documentation. Complete exam focused on the kidneys and bladder. COMPARISON: CTA CHEST 11/01/2019 10:15 PM FINDINGS: Right kidney: The right kidney measures 12.3 cm. No stones. No hydronephrosis.The renal corticomedullary differentiation ismaintained. Simple right renal cyst measures 0.85 cm requiring no further follow-up. Left kidney: The left kidney measures 11.3 cm. No stones. No hydronephrosis.The renal corticomedullary differentiation is maintained. Urinary bladder: Unremarkable. IMPRESSION: No acute renal abnormality. at 0849 Reported and signed by: Barber Chicas M.D. CC: Ember Mendez Technologist: [facility] Date/Time: 12/12/2021 (848) [id number] Orig Print D/T: S: 12/12/2021 (848) Probe: PAGE 1 Signed [id number] 21:13:00 Test Item Value Reference Range Interpretation Comments LITHIUM (test code = LITH) 0.4 mmol/L 1.0-1.20 L BASIC METABOLIC [id number] 21:09:00 Test Item Value Reference Range Interpretation Comments SODIUM (test code = NA) 142 mEq/L 134-147 N POTASSIUM (test code = 4.5 mEq/L 3.4-5.0 N K) CHLORIDE (test code = 112 mEq/L 100-108 H CL) CARBON DIOXIDE (test 22 mEq/l 21-33 N code = CO2) ANION GAP (test code = 12 0-20 N GAP) GLUCOSE (test code = 110 mg/dL 70-110 N GLU) BLOOD UREA NITROGEN 27 mg/dL 7-18 H (test code = BUN) GLOMERULAR FILTRATION 12.4 80-90 L Units of measure = RATE (test code = GFR) ml/mi n/1.73 m2 CREATININE (test code = 4.8 mg/dL 0.6-1.3 H CREAT) CALCIUM (test code = 8.3 mg/dL 8.0-10.5 N CA) COMPREHENSIVE METABOLIC [id number] 23:22:00 Test Item Value Reference Range Interpretation Comments SODIUM (test code = NA) 143 mEq/L 134-147 N POTASSIUM (test code = 4.7 mEq/L 3.4-5.0 K) CHLORIDE (test code = 116 mEq/L 100-108 H CL) CARBON DIOXIDE (test 24 mEq/l 21-33 N code = CO2) ANION GAP (test code = 8 0-20 N GAP) GLUCOSE (test code = 89 mg/dL 70-110 N GLU) BLOOD UREA NITROGEN 24 mg/dL 7-18 H (test code = BUN) GLOMERULAR FILTRATION 20.5 80-90 L Units of measure = RATE (test code = GFR) ml/mi n/1.73 m2 CREATININE (test code = 3.1 mg/dL 0.6-1.3 H CREAT) TOTAL PROTEIN (test 6.4 g/dL 6.4-8.2 N code = PROT) ALBUMIN (test code = 3.40 g/dL 3.4-5.0 N ALB) CALCIUM (test code = 8.3 mg/dL 8.0-10.5 N CA) BILIRUBIN TOTAL (test 0.50 mg/dL 0.0-1.0 N code = BILT) SGOT/AST (test code = 173 IUnit/L 15-37 H AST) SGPT/ALT (test code = 81 IUnit/L 30-65 H ALT) ALKALINE PHOSPHATASE 66 IUnit/L 20-125 N TOTAL (test code = ALKP) [id number] 23:22:00 Test Item Value Reference Range Interpretation Comments PHOSPHOROUS (test code = PHOS) 4.4 MG/DL 2.5-4.9 N [id number] 23:22:00 Test Item Value Reference Range Interpretation Comments MAGNESIUM (test code = MAG) 2.27 mg/dL 1.80-2.40 TROP-I HIGH [id number] 23:22:00 Test Item Value Reference Range Interpretation Comments TROP-I HIGH 70 ng/L 0-54 H CAUTION: Units of the SENSITIVITY (test current te st methodology code = TROPIHS) (ng/L) diffe rfrom the prior test methodolog y (ng/mL) by a factor of 1000. 99th Percentile Upper Reference Limit (URL): Females: 34 ng/LMales: 54 ng/L In order to distin ish acute elevations of h igh sensitivitytrop onin from other clinical conditions, the FourthUnive rsal Definition of M yocardial Infarction stre ssesclinical assessment and the demonstration o f a rise and/orfall in s erial troponin result s above the URL. These resu lts were obtained using Siemens Atellica IM TnI Hreagent. Results from di fferent methodologies s hould not becompared to o ne another as quantitative results and URLs mayvary by method. LACTIC [id number] 23:12:00 Test Item Value Reference Range Interpretation Comments LACTIC ACID (test code = LACT) 0.8 mmol/L 0.4-1.9 N CBC W/AUTO [id number] 23:04:00 Test Item Value Reference Range Interpretation Comments WHITE BLOOD CELL (test code = 9.1 x10 3/uL 4.5-11.0 N WBC) RED BLOOD CELL (test code = 3.90 x10 6/uL 4.00-5.60 L RBC) HEMOGLOBIN (test code = HGB) 11.8 g/dL 12.5-16.9 L HEMATOCRIT (test code = HCT) 36.5 % 37.5-50.7 L MEAN CELL VOLUME (test code = 93.6 fL 81.0-99.0 N MCV) MEAN CELL HGB (test code = MCH) 30.3 pg 27.0-33.0 N MEAN CELL HGB CONCETRATION 32.3 g/dL 33.0-37.0 L (test code = MCHC) RED CELL DISTRIBUTION WIDTH CV 13.3 % 11.5-14.5 N (test code = RDW) RED CELL DISTRIBUTION WIDTH SD 46.2 fL 37.0-54.0 N (test code = RDW-SD) PLATELET COUNT (test code = 180 x10 3/uL 150-400 N PLT) MEAN PLATELET VOLUME (test code 10.9 fL 7.0-9.0 H = MPV) NEUTROPHIL % (test code = NT%) 74.8 % 56.0-77.0 N IMMATURE GRANULOCYTE % (test 0.2 % 0.0-2.0 N code = IG%) LYMPHOCYTE % (test code = LY%) 11.9 % 14.0-32.0 L MONOCYTE % (test code = MO%) 10.5 % 4.8-9.0 H EOSINOPHIL % (test code = EO%) 1.8 % 0.3-3.7 N BASOPHIL % (test code = BA%) 0.8 % 0.0-2.0 N NUCLEATED RBC % (test code = 0.0 % 0-0 N NRBC%) NEUTROPHIL # (test code = NT#) 6.81 x10 3/uL 2.0-7.6 N IMMATURE GRANULOCYTE # (test 0.02 x10 3/uL 0.00-0.03 N code = IG#) LYMPHOCYTE # (test code = LY#) 1.08 x10 3/uL 1.0-3.8 N MONOCYTE # (test code = MO#) 0.96 x10 3/uL 0.1-0.8 H EOSINOPHIL # (test code = EO#) 0.16 x10 3/uL 0.0-0.2 N BASOPHIL # (test code = BA#) 0.07 x10 3/uL 0.0-0.2 N NUCLEATED RBC # (test code = 0.00 x10 3/uL 0.0-0.1 N NRBC#) MANUAL DIFF REQUIRED (test code NO = MDIFF) [id number] 23:07:00 Test Item Value Reference Range Interpretation Comments MAGNESIUM (test code = MAG) 1.87 mg/dL 1.80-2.40 TROP-I HIGH [id number] 23:07:00 Test Item Value Reference Range Interpretation Comments TROP-I HIGH 108 ng/L 0-54 H CAUTION: Units of the SENSITIVITY (test current te st methodology code = TROPIHS) (ng/L) diffe rfrom the prior test meth odology (ng/mL) by a fa ctor of 1000. 99t h Percentile Uppe r Reference Limit (URL): Fe males: 34 ng/LMales: 54 ng/L In order to distin guish acute elevations of h igh sensitivitytrop onin from other clinical conditions, the FourthUnive rsal Definition of M yocardial Infarction stressesclinica l assessment and the demonstration o f a rise and/orfall in s erial troponin result s above the URL. These resu lts were obtained using Siemens Atellica IM TnI Hreagent. Results from di fferent methodologies s hould not becompared to o ne another as quantitative results and URLs mayvar y by method. LIPOPROTEIN [id number] 20:25:00 Test Item Value Reference Range Interpretation Comments LIPOPROTEIN LDL 103.9 mg/dL 0-100 H <100 OPT [id number] (test code = LDL) NEAR OPTI MAL/ABOVE [id number] 89 HIGH>OS=537 VE RY HIGH*Guidelines provided by the National Choles terol EducationProgra m Adult Treatment Panel III BASIC METABOLIC [id number] 20:09:00 Test Item Value Reference Range Interpretation Comments SODIUM (test code = NA) 142 mEq/L 134-147 N POTASSIUM (test code = 2.9 mEq/L 3.4-5.0 LL Criti dustin result K) called to Claire LINDSAYUN at 2000 2Nurse read back resut and tech confirmed it's correct? Y CHLORIDE (test code = 107 mEq/L 100-108 N CL) CARBON DIOXIDE (test 24 mEq/l 21-33 N code = CO2) ANION GAP (test code = 14 0-20 N GAP) GLUCOSE (test code = 110 mg/dL 70-110 N GLU) BLOOD UREA NITROGEN 17 mg/dL 7-18 N (test code = BUN) GLOMERULAR FILTRATION 41.0 80-90 L Units of measure = RATE (test code = GFR) ml/mi n/1.73 m2 CREATININE (test code = 1.7 mg/dL 0.6-1.3 H CREAT) CALCIUM (test code = 9.5 mg/dL 8.0-10.5 N CA) [id number] 20:09:00 Test Item Value Reference Range Interpretation Comments PHOSPHOROUS (test code = PHOS) 4.0 MG/DL 2.5-4.9 N [id number] 20:09:00 Test Item Value Reference Range Interpretation Comments MAGNESIUM (test code = MAG) 2.40 mg/dL 1.80-2.40 N TROP-I HIGH [id number] 20:09:00 Test Item Value Reference Range Interpretation Comments TROP-I HIGH 81 ng/L 0-54 H CAUTION: Units of the SENSITIVITY (test current te st methodology code = TROPIHS) (ng/L) diffe rfrom the prior test methodolog y (ng/mL) by a factor of 1000. 99th Percentile Upper Reference Limit (URL): Females: 34 ng/LMales: 54 ng/L In order to distin guish acute elevations of h igh sensitivitytrop onin from other clinical conditions, the FourthUnive rsal Definition of M yocardial Infarction stre ssesclinical assessment and the demonstration o f a rise and/orfall in s erial troponin result s above the URL. These resu lts were obtained using Siemens Atellica IM TnI Hreagent. Results from di fferent methodologies s hould not becompared to o ne another as quantitative results and URLs mayvary by method. PROTHROMBIN [id number] 19:52:00 Test Item Value Reference Range Interpretation Comments PROTHROMBIN TIME 12.6 SECONDS 9.3-12.9 N PATIENT (test code = PTP) INTERNATIONAL NORMAL 1.1 0.8-1.2 N TARGET RATIO (test code = INR BY IN DICATION INR) Indication INR1. Prophyl axis of venous thrombos is 2.0 - 3. 0 (orthopedic uabree ángel), Prophylaxis of venous thrombos is (other than hig h-risk surgery), Mary tment of Deep Vein Thrombosis/Pulm onary Embolism, Preve ntion of systemic emb olism - Tissue heart va lves, Acute Myocardia l Infarction (to prevent systemic embo lism), Valvular heart disease, Atri al Fibrillation, Bileaflet mecha nical valve in aortic position.2. Mec hanical prosthetic valv es (high risk), 2.5 - 3.5 Presence of Lupus Anticoagu lant or Antiphospholi pid Antibodies, Pre vention of systemic e mbolism - Acute Myocard ial Infarction (t o prevent recurre nt infarct). CBC W/AUTO [id number] 19:46:00 Test Item Value Reference Range Interpretation Comments WHITE BLOOD CELL (test code = 14.1 x10 3/uL 4.5-11.0 H WBC) RED BLOOD CELL (test code = 4.96 x10 6/uL 4.00-5.60 N RBC) HEMOGLOBIN (test code = HGB) 14.9 g/dL 12.5-16.9 N HEMATOCRIT (test code = HCT) 45.1 % 37.5-50.7 N MEAN CELL VOLUME (test code = 90.9 fL 81.0-99.0 N MCV) MEAN CELL HGB (test code = MCH) 30.0 pg 27.0-33.0 N MEAN CELL HGB CONCETRATION 33.0 g/dL 33.0-37.0 N (test code = MCHC) RED CELL DISTRIBUTION WIDTH CV 12.6 % 11.5-14.5 N (test code = RDW) PLATELET COUNT (test code = 286 x10 3/uL 150-400 N PLT) NEUTROPHIL % (test code = NT%) 68.9 % 56.0-77.0 N LYMPHOCYTE % (test code = LY%) 18.7 % 14.0-32.0 N NEUTROPHIL # (test code = NT#) 9.76 x10 3/uL 2.0-7.6 H LYMPHOCYTE # (test code = LY#) 2.64 x10 3/uL 1.0-3.8 N MANUAL DIFF REQUIRED (test code NO = MDIFF) RED CELL DISTRIBUTION WIDTH SD 41.7 fL 37.0-54.0 N (test code = RDW-SD) MEAN PLATELET VOLUME (test code 11.1 fL 7.0-9.0 H = MPV) IMMATURE GRANULOCYTE % (test 0.3 % 0.0-2.0 N code = IG%) MONOCYTE % (test code = MO%) 10.3 % 4.8-9.0 H EOSINOPHIL % (test code = EO%) 1.1 % 0.3-3.7 N BASOPHIL % (test code = BA%) 0.7 % 0.0-2.0 N NUCLEATED RBC % (test code = 0.0 % 0-0 N NRBC%) IMMATURE GRANULOCYTE # (test 0.04 x10 3/uL 0.00-0.03 H code = IG#) MONOCYTE # (test code = MO#) 1.45 x10 3/uL 0.1-0.8 H EOSINOPHIL # (test code = EO#) 0.15 x10 3/uL 0.0-0.2 N BASOPHIL # (test code = BA#) 0.10 x10 3/uL 0.0-0.2 N NUCLEATED RBC # (test code = 0.00 x10 3/uL 0.0-0.1 N NRBC#) - CT HEAD/BRAIN W/O [id number] 00:00:00 [facility] 1960 Sex: M Name: ALHAJI FARAH [facility] : 1960ge/S: 60 / M [address] [place] [address] Unit #: [id number] Loc: [place] [address] Phys: Theodore Rawls DO Acct: [id number] Dis Date: Status: REG ER PHONE#: [phone] Exam Date: 12/09/20212022 FAX #: [phone] Reason:headache new onset afib EXAMS: CPT CODE: [id number] CT HEAD/BRAIN W/O CONT [id number] PROCEDURE INFORMATION: Exam: CT Head Without Contrast Exam date and time: 12/09/2021 8:22 PM Age: 60 years old Clinical indication: Pain; Headache; Additional info: Headache new onset afib TECHNIQUE: Imaging protocol: Computed tomography of the head without contrast. Radiation optimization: All CT scans at this facility use at least one of these dose optimization techniques: automated exposure control; mA and/or kV adjustment per patient size (includes targeted exams where dose is matched to clinical indication); or iterative reconstruction. COMPARISON: No relevant prior studies available. FINDINGS: Brain: Minimal parenchymal volume loss is appropriate for the patient's given age. No hemorrhage. Periventricular white matter shows hypodensity in a distribution typical of chronic microvascular ischemic disease. No mass effect. Cerebral ventricles: No ventriculomegaly. Paranasal sinuses: Anterior right ethmoid sinus shows partial opacification. Ri ght maxillary and frontal sinuses show complete opacification. No fluid levels. Mastoid air cells: Inferior left mastoid air cells show partial opacification. Right mastoid air cells are well aerated. Bones/joints: Unremarkable. No acute fracture. Soft tissues: Unre markable. IMPRESSION: No acute intracranial abnormality. Sinus disease asabove at 2053 Reported and signed by: Vernon Melendez M.D. CC: Theodore Rawls DO Technologist:Mejia Bejarano, RT(R)(CT) CTDI: DLP: Trnscb Date/Time: 12/09/2021 (2053) [email or web address] Orig Print D/T: S: 12/09/2021 (2053) PAGE 1 Signed Report- XR CHEST 1 [id number] 00:00:00 [facility] : 1960 Sex: M FAX: Theodore Razo DO [phone] [place]: St: REG Name: ALHAJI FARAH [facility] Amarilis Pink : 1960 Age/S: 60/M [address] [place] [address] Unit #: [id number] Loc: [place] [address] Phys: Theodore Rawls DO Acct: [id number] Dis Date: Status: REG ER PHONE #: [phone] Exam Date: 12/09/20211927 FAX #: [phone] Reason: Chest Pain EXAMS: CPT CODE: [id number] XR CHEST 1 V 15304 PROCEDURE INFORMATION: Exam: XR Chest Exam date and time: 12/09/2021 7:22 PM Age: 60 years old Clinical indication: Chest wall pain; Additional info: Chest pain TECHNIQUE: Imaging protocol: XR of the chest. Views: 1 view. COMPARISON: CR XR CHEST 1V 11/02/2019 3:45 PM FINDINGS: Lungs: The lungs are clear. Pleural spaces: No pleural effusion. No pneumothorax. Heart/Mediastinum: Cardiomediastinal silhouette is normal in size. Bones/joints: Sternotomy wires are present. Cervical spine hardware is partially visualized. IMPRESSION: No evidence for acute cardiopulmonary disease. at 2000 Reported and signed by: Kuldeep Stark M.D. CC: Thoedore Rawls DO Technol ogist: RT Melissa(R) Trnscrd Date/Time/By: 12/09/2021 (2000) : By: [email or web address] Orig Print D/T: S: 12/09/2021 (2000) PAGE 1 Signed Report SARS-COV2/RT-PCR ([facility])2020-05-20 09:54:00 Test Item Value Reference Range Interpretation Comments SARS-COV2/RT-PCR (test Negative Not Detected, Negative, code = 8030110) See external report for linked test SARS-COV-2 PERFORMING LAB [facility] (test code = 4574664) Negative result for this test determines that [...] 564(g) of the Act.Fact Sheet for Healthcare Providers:https://www.[employer]/sites/default/files/product/documents/Fact_Shee i_ZH_Eviznsugz_Anac_INIT-ZsU-0.pdfFact Sheet for Healthcare Patients:https://www.[employer]/sites/default/files/product/ documents/Kjcf_Qrneu_Oasxyogy_Vhdn_ZZYD-SvQ-3.pdfPerforming Laboratory:[facility], [place] [address]AG[facility] METABOLIC PANEL 2019-11-04 06:36:00 Test Item Value [...] CA) 8.9 MG/DL 8.5-10.1 N CBC W/AUTO [id number] 06:32:00 Test Item Value Reference Range Interpretation [...] = NO DIFF/SCN CRITERIA MDIFF) COMPREHENSIVE METABOLIC [id number] 06:08:00 Test Item Value Reference Range Interpretation [...] TOTAL (test code = ALKP) CBC W/AUTO [id number] 05:52:00 Test Item Value Reference Range Interpretation [...] concentrations <2 ng/mL are obtai brandon. LACTIC [id number] 16:03:00 Test Item Value Reference Range Interpretation Comments LACTIC ACID (test code = LACT) 1.0 mmol/L 0.4-2.0 N - XR CHEST 1 [id number] 15:59:00 Name: ALHAJI FARAH Driscoll : 1960 Age/S: 58 / M [id number] Unit #: [id number] Loc: [place] [address] Phys: Jac Leal MD Acct: [id number] Dis Date: Status: ADM IN PHONE #: [phone] Exam Date: 11/02/2019 1556 FAX #: Reason: Fever EXAMS: CPT: [id number] XR CHEST 1 V 21351 Fluoro Time: DAP (Gy m2): Air Kerma [...] PAGE 1 Signed Report Name: ALHAJI FARAH Driscoll : 1960 Age/S: 58 / M [address] Unit #: [id number] Loc: [place] [address] Phys: Jac Leal MD Acct: [id number] Dis Date: Status: ADM IN PHONE #: [phone] Exam Date: 11/02/2019 1556 FAX #: Reason: Fever EXAMS: CPT: [id number] XR CHEST 1 V 35984 Fluoro Time: DAP (Gy m2): Air Kerma (mGy): <Continued> Technologist: Sabine Cross RT(R)(CT) Trnscb Date/Time: 11/02/2019 (1559) [id number] Orig Print D/T: S: 11/02/2019 (3999) PAGE 2 Signed [id number] 04:22:00 Test Item Value Reference Range Interpretation [...] yby method. Completed by Nursing: NOBASIC METABOLIC [id number] 04:19:00 Test Item Value Reference Range Interpretation [...] CA) 8.1 MG/DL 8.5-10.1 L CBC W/AUTO [id number] 04:08:00 Test Item Value Reference Range Interpretation [...] = NO DIFF/SCN CRITERIA MDIFF) - CTA [id number] 22:57:00 Name: ALHAJI FARAH [facility] : 1960 Age/S: 58 / M [address] Unit #: [id number] Loc: [place] [address] Phys: Jac Leal MD Acct: [id number] Dis Date: Status: ADM IN PHONE #: [phone] Exam Date: 11/01/2019 2580 FAX #: Reason: Chest PAIN EXAMS: CPT: [id number] CTA CHEST 30811 Examination: CTA chest, PE protocol Indication: Chest [...] 1 Signed Report (CONTINUED) Name: ALHAJI FARAH [facility] : 1960 Age/S: 58 / M [address] [facility] [place] Unit #: [id number] Loc: [place] [address] Phys: Jac Leal MD Acct: [id number] Dis Date: Status: ADM IN PHONE #: [phone] Exam Date: 11/01/2019 4679 FAX #: Reason: Chest PAIN EXAMS: CPT: [id number] CTA CHEST 14752 <Continued> No suspicious or destructive osseous lesions. Impression: Limited exam secondary to phase of contrast no evidence of acute pulmonary embolism proximal lobar pulmonary arteries. There is irregular, possibly nodular thickening of the esophagus, recommend further evaluation with endoscopy Additional findings as detailed above at 8314 Reported and signed by: Katy Dykes M.D. CC: Jac Leal MD Technologist:Curly Logan, RT(R)(CT); .. CTDI: DLP: Trnscb Date/Time: 11/01/2019 (3770) t.SDR.SR31 Orig Print D/T: S: 11/01/2019 (1098) PAGE 2 Signed ReportGLYCOSYLATED HEMOGLOBIN [id number] 17:41:00 Test Item Value Reference Range Interpretation Comments GLYCOSYLATED HEMOGLOBIN (HA1C) 6.3 % A1C 4.2-6.3 N (test code = GLYHGB) ESTIMATED AVERAGE GLUCOSE (test 134 MG/DLest code = EAG) COMPREHENSIVE METABOLIC [id number] 17:40:00 Test Item Value Reference Range Interpretation [...] = LDL/HDL) 2.94 Ratio 1.48-3.22 Avg N [id number] 17:40:00 Test Item Value Reference Range Interpretation Comments PHOSPHOROUS (test code = PHOS) 3.5 MG/DL 2.5-4.9 N RULE OUT AK [id number] 17:40:00 Test Item Value Reference Range Interpretation [...] nume rical results may roma yby method. [id number] 17:40:00 Test Item Value Reference Range Interpretation Comments MAGNESIUM (test code = MAG) 2.5 MG/DL 1.8-2.4 H TROPONIN I [id number] 15:24:00 Test Item Value Reference Range Interpretation Comments TROPONIN I RAPID 0.04 ng/mL 0.00-0.08 N - The use o f serial (test code = sampling and te sting TROPIRAP) protocol is a recommended pra ctice- An elevated tro ponin level alone is often not sufficient for diagnosis of my ocardial infarction. BASIC METABOLIC [id number] 13:39:00 Test Item Value Reference Range Interpretation [...] 133 Unit/L 26-192 N CK) TROPONIN I [id number] 11:56:00 Test Item Value Reference Range Interpretation Comments TROPONIN I RAPID 0.04 ng/mL 0.00-0.08 N - The use o f serial (test code = sampling and te sting TROPIRAP) protocol is a recommended pra ctice- An elevated tro ponin level alone is often not sufficient for diagnosis of my ocardial infarction. - XR CHEST 1 [id number] 11:53:00 Name: ALHAJI FARAH [facility] : 1960 Age/S: 58 / M [address] Unit #: [id number] Loc: [place] [address] Phys: Darell Medrano MD Acct: [id number] Dis Date: Status: PRE ER PHONE #: [phone] Exam Date: 11/01/2019 1146 FAX #: Reason: chest pain EXAMS: CPT: [id number] XR CHEST 1 V 19132 Fluoro Time: DAP (Gy m2): Air Kerma [...] PAGE 1 Signed Report Name: ALHAJI FARAH [facility] :1960 Age/S: 58 / M [address] [facility] [place] Unit #: [id number] Loc: [place] [address] Phys: Darell Medrano MD Acct: [id number] Dis Date: Status: PRE ER PHONE #: [phone] Exam Date: 11/01/2019 1146 FAX #: Reason: chest pain EXAMS: CPT: [id number] XR CHEST 1 V 40122 Fluoro Time: DAP (Gy m2): Air Kerma (mGy): <Continued> Technologist:Nirmal Negron RT(R)(MR) Trnscb Date/Time: 11/01/2019 (6613) tAUSTINJH12 Orig Print D/T: S: 11/01/2019 (0566) PAGE 2 Signed ReportCBC W/O [id number] 11:50:00 Test Item Value Reference Range Interpretation [...] 11.80 fL 7.0-9.6 H MPV) CHEMISTRY 8 [id number] 11:47:00 Test Item Value Reference Range Interpretation [...] 49-113 N code = GFRBED) CHEMISTRY 8 [id number] 11:47:00 Test Item Value Reference Range Interpretation [...] 49-113 N (test code = GFRBED) TISSUE [id number] 10:31:00Surgical Pathology Report Case: [id number] Authorizing Provider: Caleb Dawn Collected: 06/14/2019 Bhavna Morales MD Ordering Location: [address] Received: 06/15/2019 0759 Service Pathologist: Misty Jackson MD Specimen: Ampulla, Ampulla Bx A. "AMPULLA", BIOPSY: - SQUAMOUS AND FOVEOLAR TYPE MUCOSA WITH MILD CHRONIC INFLAMMATION - NEGATIVE FOR MALIGNANCY (SEE COMMENT) Signing Pathologist Direct Phone Line: [phone] signed by Misty Jackson MD on 06/19/2019 at 10:31 AMThe biopsy shows fragments of squamous and foveolar type mucosa with mild chronic inflammation and cautery. Focal muscle is also seen. No definite small bowel/ biliary lining is seen. The ampulla normally does not have squamous lining. This could be a metaplastic change. Clinical and endoscopic correlation is required.62103Yhr and postop diagnosis: endoscopic ultrasound with endo, [...] MDReport Verified Date/Time: 06/16/2019 12:50:49 Reading Location: [facility] Radiology Reading Room BLOOD CULTURE 2019-06-16 12:01:00 Test Item Value Reference Range Interpretation Comments CULTURE (BEAKER) (test No growth in 5 days code = 1095) BLOOD [id number] 12:01:00 Test Item Value Reference Range Interpretation Comments CULTURE (BEAKER) (test No growth in 5 days code = 1095) COMPREHENSIVE METABOLIC [id number] 07:08:00 Test Item Value Reference Range Interpretation [...] NOT APPLICABLE FOR DIALYSIS PATIEN TS. BLOOD [id number] 02:00:00 Test Item Value Reference Range Interpretation Comments CULTURE (BEAKER) (test No growth in 5 days code = 1095) BLOOD [id number] 02:00:00 Test Item Value Reference Range Interpretation Comments CULTURE (BEAKER) (test No growth in 5 days code = 1095) BLOOD [id number] 02:00:00 Test Item Value Reference Range Interpretation Comments CULTURE (BEAKER) (test No growth in 5 days code = 1095) COMPREHENSIVE METABOLIC [id number] 04:49:00 Test Item Value Reference Range Interpretation [...] 0-0 CELLS (ARIEL) (test code = 413) [id number] 16:17:00 Test Item Value Reference Range Interpretation Comments ACTIVATED CLOTTING TIME 125 sec TEST ED AT [facility] 6720 (ARIEL) (test code = [place] [address]) [address] PET, CARDIAC PERFUSION MULTIPLE STUDIES, REST AND [id number] 16:40:00 Reason for exam:->chest pain, evaluate for worsening CAD, s/p CABGFINAL REPORT PROCEDURE: MYOCARDIAL PERFUSION PET IMAGING (Rest/Stress)CPT CODE: 48614 INDICATION: Evaluate acute chest pain/discomfort CARDIOVASCULAR PROFILE:CAD [...] MDReport Verified Date/Time: 06/12/2019 16:40:23 Reading Location: [address] Reading Room TROPONIN [id number] 02:08:00 Test Item Value Reference Range Interpretation [...] acute neurological disease, and persistent tachyarrhythmia.HEPATIC FUNCTION [id number] 02:02:00 Test Item Value Reference Range Interpretation [...] = 26 U/L 6-55 347) BASIC METABOLIC [id number] 02:02:00 Test Item Value Reference Range Interpretation [...] APPLICABLE FOR DIALYSIS PATIEN TS. VANCOMYCIN LEVEL, [id number] 01:59:00 Test Item Value Reference Range Interpretation [...] WBC 0-0 (BEAKER) (test code = 413) [id number] 07:20:00 Test Item Value Reference Range Interpretation Comments PROCALCITONIN (BEAKER) (test code 0.30 ng/mL <0.05 H = 3036) SEPSIS RISK (ng/mL)Low: 0.05-0.50Intermediate: 0.51-2.00High: >=2.01BASIC METABOLIC [id number] 07:16:00 Test Item Value Reference Range Interpretation [...] APPLICABLE FOR DIALYSIS PATIEN TS. HEPATIC FUNCTION [id number] 07:16:00 Test Item Value Reference Range Interpretation [...] WBC 0-0 (BEAKER) (test code = 413) [id number] 05:55:00 Test Item Value Reference Range Interpretation Comments MAGNESIUM (BEAKER) (test code = 2.1 mg/dL 1.6-2.6 627) LIPID [id number] 05:55:00 Test Item Value Reference Range Interpretation [...] 130-159 High 160-189 Very High >=190HEPATIC FUNCTION [id number] 05:55:00 Test Item Value Reference Range Interpretation [...] = 34 U/L 6-55 347) BASIC METABOLIC [id number] 05:55:00 Test Item Value Reference Range Interpretation [...] PATIEN TS. CBC W/PLT COUNT & AUTO [id number] 05:03:00 Test Item Value Reference Range Interpretation [...] PERCENT (BEAKER) (test code = 2801) TROPONIN [id number] 05:02:00 Test Item Value Reference Range Interpretation [...] acute neurological disease, and persistent tachyarrhythmia.LACTIC ACID, [id number] 04:48:00 Test Item Value Reference Range Interpretation Comments LACTATE BLOOD VENOUS (2) (BEAKER) 1.1 mmol/L 0.5-2.2 (test code = 2872) URINALYSIS W/ REFLEX URINE [id number] 03:25:00 Test Item Value Reference Range Interpretation [...] SOURCE(BEAKER) (test code = 2795) OXYGEN SATURATION, [id number] 03:04:00 Test Item Value Reference Range Interpretation [...] 0.7 mmol/L 0.5-2.2 (test code = 2872) [id number] 23:52:00 Test Item Value Reference Range Interpretation Comments PROCALCITONIN (BEAKER) (test code 0.30 ng/mL <0.05 H = 3036) SEPSIS RISK (ng/mL)Low: 0.05-0.50Intermediate: 0.51-2.00High: >=2.01TROPONIN [id number] 23:40:00 Test Item Value Reference Range Interpretation [...] failure, acidosis, acute neurological disease, and persistent tachyarrhythmia.[id number] 23:34:00 Test Item Value Reference Range Interpretation Comments PHOSPHORUS (BEAKER) (test code = 3.4 mg/dL 2.3-4.7 604) [id number] 23:34:00 Test Item Value Reference Range Interpretation Comments MAGNESIUM (BEAKER) (test code = 2.2 mg/dL 1.6-2.6 627) BASIC METABOLIC [id number] 23:34:00 Test Item Value Reference Range Interpretation [...] APPLICABLE FOR DIALYSIS PATIEN TS. HEPATIC FUNCTION [id number] 23:34:00 Test Item Value Reference Range Interpretation [...] = 42 U/L 6-55 347) COMPREHENSIVE METABOLIC [id number] 23:34:00 Test Item Value Reference Range Interpretation [...] S NOT APPLICABLE FOR DIALYSIS PATIEN TS. [id number] 23:34:00 Test Item Value Reference Range Interpretation Comments LIPASE (BEAKER) (test code = 749) 38 U/L 8-78 [id number] 23:33:00 Test Item Value Reference Range Interpretation Comments PARTIAL THROMBOPLASTIN TIME 27.3 seconds 22.5-36.0 (BEAKER) (test code = 760) [id number] 23:33:00 Test Item Value Reference Range Interpretation Comments FIBRINOGEN LEVEL (BEAKER) (test 300 mg/dl 225-434 code = 658) PROTHROMBIN TIME/[id number] 23:32:00 Test Item Value Reference Range Interpretation [...] mechanical heart valves.CBC W/PLT COUNT & AUTO [id number] 23:22:00 Test Item Value Reference Range Interpretation [...] (BEAKER) (test code = 2801) BLOOD GAS, [id number] 22:27:00 Test Item Value Reference Range Interpretation [...] code = 1819) 21.0 % POCT-LACTIC ACID, [id number] 21:53:00 Test Item Value Reference Range Interpretation Comments POC-LACTIC ACID, 1.6 mmol/L 0.9-1.7 TESTED AT [facility] [address] ([facility]) [facility] [place] code = 2805) [address] TROPONIN [id number] 18:59:00 Test Item Value Reference Range Interpretation Comments TROPONIN I ([facility]) (test code = 0.09 ng/mL [...] acute neurological disease, and persistent tachyarrhythmia.HEPATITIS C [id number] 16:55:00 Test Item Value Reference Range Interpretation Comments HEPATITIS C ANTIBODY ([facility]) (test Reactive Nonreactive A code = 367) POCT-GLUCOSE [id number] 12:03:00 Test Item Value Reference Range Interpretation Comments POC-GLUCOSE METER 169 mg/dL 70-110 H TESTED AT [place] [address] ([facility]) (test code = [facility] 1538) [address] HEPATITIS B CORE ANTIBODY, [id number] 08:37:00 Test Item Value Reference Range Interpretation Comments HEPATITIS B CORE TOTAL ANTIBODY Reactive Nonreactive A ([facility]) (test code = 497) POCT-GLUCOSE [id number] 08:14:00 Test Item Value Reference Range Interpretation Comments POC-GLUCOSE METER 105 mg/dL 70-110 TESTED AT [place] [address] ([facility]) (test code = [facility] [place] 1538) [address] HEPATIC FUNCTION [id number] 07:10:00 Test Item Value Reference Range Interpretation Comments TOTAL PROTEIN ([facility]) (test code = 6.7 gm/dL 6.0-8.3 770) ALBUMIN ([facility]) (test code = 1145) 3.5 g/dL 3.5-5.0 BILIRUBIN TOTAL (BEAKER) (test code 0.5 mg/dL 0.2-1.2 = 377) BILIRUBIN DIRECT (BEAKER) (test 0.3 mg/dL 0.1-0.5 code = 706) ALKALINE PHOSPHATASE (BEAKER) (test 60 U/L 40-150 code = 346) AST (SGOT) (BEAKER) (test code = 47 U/L 5-34 H 353) ALT (SGPT) (BEAKER) (test code = 67 U/L 6-55 H 347) BASIC METABOLIC [id number] 07:10:00 Test Item Value Reference Range Interpretation [...] FOR DIALYSIS PATIEN TS. HEPATITIS B SURFACE [id number] 06:58:00 Test Item Value Reference Range Interpretation Comments HEPATITIS B SURFACE ANTIBODY < mIU/mL <8.0 (BEAKER) (test code = 647) HEPATITIS B SURFACE [id number] 05:42:00 Test Item Value Reference Range Interpretation Comments HEPATITIS B SURFACE ANTIGEN (2) Nonreactive Nonreactive (BEAKER) (test code = 2585) HEPATITIS B CORE ANTIBODY, [id number] 05:42:00 Test Item Value Reference Range Interpretation Comments HEPATITIS B CORE IGM ANTIBODY Nonreactive Nonreactive (BEAKER) (test code = 645) CBC W/PLT COUNT & AUTO [id number] 04:56:00 Test Item Value Reference Range Interpretation [...] (test code = 2801) U/S, RENAL WITH [id number] 16:28:00Reason for exam:->hypertensionFINAL REPORT INDICATION: 57-year-old inpatient [...] MDReport Verified Date/Time: 05/11/2018 16:28:02 Reading Location: [address] Ultrasound Reading Room U/S, ABDOMINAL, [id number] 16:15:00Abdomen limited area? Add comment if clarification [...] MDReport Verified Date/Time: 05/11/2018 16:15:41 Reading Location: [facility] P006 Ultrasound Reading Room CTA, CHEST, ABDOMEN - PELVIS, FOR [id number] 14:11:00Reason for exam:->Chest painAddendum BeginsREPORT STATUS:A Addendum: I agree with the previously described non vascular findings. Signed: Antionette Hinojosa MDReport Verified Date/Time: 05/11/2018 14:11:09 Reading Location: [facility] P048 Angio Body Reading RoomAddendum EndsFINAL [...] coronary artery calcification is seen in the [place]. Patient is post coronary artery [...] thoracic aorta. In the abdominal aorta, circumferential vkws-wq-ieuhrnlz calcific atherosclerosis is seen. Overall, no ectasia [...] An addendum will be dictated by the Labor Delivery Specialist Radiologist regarding the nonvascular findings. Signed: Magno Augustin MDReport Verified Date/Time: 05/10/2018 18:58:16 Reading Location: [place] [address] Cardiology MRI CALCIUM, [id number] 05:20:00 Test Item Value Reference Range Interpretation Comments CALCIUM IONIZED (BEAKER) (test 1.16 mmol/L 1.12-1.27 code = 698) PH, BLOOD (BEAKER) (test code = 7.40 1810) [id number] 04:29:00 Test Item Value Reference Range Interpretation Comments PHOSPHORUS (BEAKER) (test code = 3.5 mg/dL 2.3-4.7 604) [id number] 04:29:00 Test Item Value Reference Range Interpretation Comments MAGNESIUM (BEAKER) (test code = 2.4 mg/dL 1.6-2.6 627) COMPREHENSIVE METABOLIC [id number] 04:29:00 Test Item Value Reference Range Interpretation [...] PATIEN TS. CBC W/PLT COUNT & AUTO [id number] 03:58:00 Test Item Value Reference Range Interpretation [...] (BEAKER) (test code = 2801) U/S, RENAL, [id number] 13:00:00Reason for exam:->akiShould this be performed at [...] MDReport Verified Date/Time: 05/10/2018 13:00:32 Reading Location: [address] Ultrasound Reading Room CALCIUM, [id number] 06:58:00 Test Item Value Reference Range Interpretation Comments CALCIUM IONIZED (BEAKER) (test 1.08 mmol/L 1.12-1.27 L code = 698) PH, BLOOD (BEAKER) (test code = 7.35 1810) B-TYPE NATRIURETIC FACTOR (BNP)2018-05-10 05:49:00 Test Item Value Reference Range Interpretation Comments B-TYPE NATRIURETIC PEPTIDE (BEAKER) 153 pg/mL 0-100 H (test code = 700) [id number] 05:47:00 Test Item Value Reference Range Interpretation Comments MAGNESIUM (BEAKER) 2.4 mg/dL 1.6-2.6 Specimen slightly (test code = 627) hemolyzed [id number] 05:47:00 Test Item Value Reference Range Interpretation Comments PHOSPHORUS (BEAKER) 2.7 mg/dL 2.3-4.7 Specimen slightly (test code = 604) hemolyzed COMPREHENSIVE METABOLIC [id number] 05:47:00 Test Item Value Reference Range Interpretation [...] PATIEN TS. CBC W/PLT COUNT & AUTO [id number] 05:31:00 Test Item Value Reference Range Interpretation [...] % 0-1 PERCENT (BEAKER) (test code = 2805) EOSINOPHIL SMEAR, [id number] 22:19:00 Test Item Value Reference Range Interpretation Comments EOSINOPHIL SMEAR, URINE (BEAKER) No EOS seen No EOS seen (test code = 1855) URINALYSIS W/ [id number] 22:13:00 Test Item Value Reference Range Interpretation [...] SOURCE(BEAKER) (test code = 2795) SODIUM, RANDOM [id number] 21:38:00 Test Item Value Reference Range Interpretation Comments SODIUM URINE (BEAKER) (test code = < meq/L 243) Reference Range: No NormalsPROTEIN, RANDOM [id number] 21:38:00 Test Item Value Reference Range Interpretation Comments PROTEIN, URINE (BEAKER) (test code = 15 mg/dL 0-14 H 1569) CREATININE, RANDOM [id number] 21:38:00 Test Item Value Reference Range Interpretation Comments CREATININE URINE (BEAKER) (test 173.4 mg/dL code = 375) Reference Range: No NormalsRAD, FOOT, 2 VIEWS, [id number] 13:59:00Reason for exam:->Pain and swelling of left foot after fall.FINAL REPORT Two views left foot Discussion: There is hallux valgus with degen erative changes. No visible acute fracture, dislocation, destructive lesion. Soft tissues are unremarkable. Signed: Darren Ariza Verified Date/Time: 05/09/2018 13:59:01 Reading Location: [facility] C013W Consult Reading Room PUL PERF IMAGING, PARTIC, [id number] 12:03:00FINAL REPORT PROCEDURE: V/Q LUNG SCAN CPT CODE: 59305 INDICATION: Acute chest pain, PE suspected, dyspnea, [...] probability of acute pulmonary embolization. Signed: Leticia Pimentelort Verified Date/Time: 05/09/2018 12:03:05 ReadingLocation: [address] [address] [facility] Med Reading Room FL, ESOPH, SWALLOW FUNCTION, WITH CINE OR [id number] 11:00:00Reason for exam:->chest painFINAL REPORT Esophagram History: [...] Verified Date/Time: 0 05/09/2018 11:00:37 Reading Location: [facility] C013X Ortho Consult Reading Room HEMOGLOBIN [id number] 10:45:00 Test Item Value Reference Range Interpretation Comments HEMOGLOBIN A1C (BEAKER) (test code = 6.3 % 4.3-6.1 H 368) BASIC METABOLIC [id number] 08:43:00 Test Item Value Reference Range Interpretation [...] FOR DIALYSIS PATIEN TS. Re-draw per labLIPID [id number] 08:42:00 Test Item Value Reference Range Interpretation [...] Borderline 130-159 High 160-189 Very High >=190LITHIUM [id number] 08:31:00 Test Item Value Reference Range Interpretation Comments LITHIUM LEVEL (BEAKER) (test code 0.4 mmol/L 0.8-1.2 L = 630) RAPID DRUG SCREEN, [id number] 07:54:00 Test Item Value Reference Range Interpretation [...] situations. Chain of custody not maintained. Some kdvx-vah-vhjrmhw medications, as well as adulterants, may cause inaccurate results. Clinical correlation should be applied. A more comprehensive drug screen or confirmation of a detected drug may be performed upon request. CREATINE KINASE (CK), TOTAL AND [id number] 07:47:00 Test Item Value Reference Range Interpretation Comments CREATINE KINASE TOTAL (BEAKER) 161 U/L 29-200 (test code = 380) CREATINE KINASE-MB (BEAKER) (test 4.9 ng/mL 0.0-6.6 code = 750) CREATINE KINASE-MB INDEX (BEAKER) 3.0 % (test code = 395) CK-MB Reference Range:<6.7 Normal6.7-10.0 Borderline>10.0 AbnormalTROPONIN [id number] 07:47:00 Test Item Value Reference Range Interpretation [...] acute neurological disease, and persistent tachyarrhythmia.BASIC METABOLIC [id number] 04:56:00 Test Item Value Reference Range Interpretation [...] (test code = 413) CT, BRAIN, WITHOUT [id number] 21:00:00FINAL REPORT CT, BRAIN, WITHOUT CONTRAST INDICATION: [...] MDReport Verified Date/Time: 05/08/2018 21:00:20 Reading Location: [address] Reading Room B-TYPE NATRIURETIC FACTOR (BNP)2018-05-08 19:03:00 Test Item Value Reference Range Interpretation Comments B-TYPE NATRIURETIC PEPTIDE (BEAKER) 254 pg/mL 0-100 H (test code = 700) CREATINE KINASE (CK), TOTAL AND [id number] 19:02:00 Test Item Value Reference Range Interpretation Comments CREATINE KINASE TOTAL (BEAKER) 150 U/L 29-200 (test code = 380) CREATINE KINASE-MB (BEAKER) (test 5.5 ng/mL 0.0-6.6 code = 750) CREATINE KINASE-MB INDEX (BEAKER) 3.7 % (test code = 395) CK-MB Reference Range:<6.7 Normal6.7-10.0 Borderline>10.0 AbnormalTROPONIN [id number] 19:02:00 Test Item Value Reference Range Interpretation [...] acute neurological disease, and persistent tachyarrhythmia.BASIC METABOLIC [id number] 18:32:00 Test Item Value Reference Range Interpretation [...] PATIEN TS. CBC W/PLT COUNT & AUTO [id number] 18:28:00 Test Item Value Reference Range Interpretation [...] 0-1 PERCENT (BEAKER) (test code = 2801) [id number] 18:15:00 Test Item Value Reference Range Interpretation Comments PARTIAL THROMBOPLASTIN TIME 30.0 seconds 22.5-36.0 (BEAKER) (test code = 760) Prior to initiating heparinXR Fluoroscopy in Imaging per [id number] 12:25:17 Patient: ALHAJI FARAH Date/Time04/05/2018 11:30 CDTReason [...]
[2022-01-23] MEDS ORDERED: NA CHLORIDE 0.9% 500 ML ONE ×2 (18:34→20:01)
[2022-01-23 18:38] LABS: Absolute Lymphocytes (CBC) 1.9 K/uL (0.7-4.9); Hematocrit 26.9 % (39.6-49.0); Lymphocytes % 19.3 % (15.3-44.8); MPV 8.9 fL (7.6-11.3); RBC Red Blood Cell Count 2.95 M/uL (4.33-5.43)
[2022-01-23 18:42] LABS: Protime INR 1.02
[2022-01-23 19:02] LABS: ALT/SGPT 18 U/L (12-78); AST/SGOT 16 U/L (15-37); Albumin 3.3 g/dL (3.4-5.0); Alkaline Phosphatase 49 U/L (45-117); BUN Blood Urea Nitrogen 31 mg/dL (7-18); Bicarbonate 24 mmol/L (21-32); Bilirubin Direct 0.2 mg/dL (0-0.2); Bilirubin Total 0.3 mg/dL (0.2-1.0); Glucose Level 83 mg/dL (74-106); Magnesium 2.7 mg/dL (1.8-2.4); NT PRO-BNP 5152 pg/mL (<125); Potassium 3.8 mmol/L (3.5-5.1); Protein, Total 7.3 g/dL (6.4-8.2); Sodium Level 139 mmol/L (136-145); Troponin High Sensitivity 25.9 pg/mL (<58.9)
--- NOTE | 2022-01-23 19:28 | RAD REPORT ---
EXAM DESCRIPTION: RAD - Chest Single View - 01/23/2022 7:09 pm CLINICAL HISTORY: CHEST PAIN COMPARISON: Portable 11/23/2021 TECHNIQUE: AP portable chest image was obtained 01/23/2022 7:09 pm . FINDINGS: Interstitial and alveolar opacities are present in the mid left lung field and in the righ t upper lung field new from the prior examination. Bilateral pneumonia is the favored diagnosis. Lung bases are clear on the current examination. Heart size is upper normal. Sternotomy wires are in plac e. No measurable pleural effusion and no pneumothorax. No acute bony abnormality seen. No acute aorti c findings suspected. IMPRESSION: Left midlung field and right upper lobe pneumonia changes are evident. Bibasilar lung opacity seen November 23 have cleared.
--- NOTE | 2022-01-23 19:35 | RAD REPORT ---
EXAM DESCRIPTION: CT - CTHCSPWOC - 01/23/2022 7:01 pm CLINICAL HISTORY: AMS COMPARISON: Head C Spine Mpr Wo Con dated 11/23/2021 TECHNIQUE: Axial 5 mm thick images of the head were obtained. Axial 2 mm thick images of the cervic al spine were obtained with sagittal and coronal reconstruction images generated and reviewed. All CT scans are performed using dose optimization technique as appropriate and may include automated exposure control or mA/KV adjustment according to patient size. FINDINGS: No intracranial hemorrhage, mass, edema or acute intracranial finding. No acute cortical b ased infarction seen. No cortical edema or sulcal effacement. Atrophy changes are mild and similar to comparison. Prominent chronic ischemic change in the cerebral white matter is similar to the compari son study as well. No extra-axial fluid collections. Mastoid air cells are clear. Chronic sinusitis i s present in the right maxillary sinus with a small air-fluid level still identifiable. There is trial mgr nanda opacification of the right frontal sinus and right-sided ethmoid air cells. No globe or orbit abn ormality seen. C4-C7 fusion changes are present appearing well healed. Anterior plate and screws in place with no skaggs rdware fracture. C3-4 disc space is narrowed similar to comparison. C7-T1 and T1-T2 disc space narrow ing present with prominent anterior endplate spurs. Facet joint degenerative changes are present. Sig nificant bony foraminal encroachment present on the left at C3-4 and on the left at C4-5. Significant right bony foraminal encroachment at C5-6 and moderate bilateral C6-7 foraminal stenoses. No fractur e or acute bony abnormality. Central canal detail is inherently limited. No paraspinal mass or hematoma. Patient has very dense carotid calcifications. IMPRESSION: Atrophy and chronic ischemic changes are present similar to the November 23 study. No acu te intracranial finding seen. Chronic ischemic changes can mask nonhemorrhagic acute infarction. MR brain followup can be obtained if there is ongoing concern for acute ischemia. Advanced cervical spine degenerative change and surgical fusion changes are present as detailed. No a cute cervical spine finding. C-spine findings are similar to November 23 imaging. Very dense carotid calcifications are present. Possible stenosis cannot be accurately evaluated on study.
[2022-01-23 20:29] LABS: Urine Blood Negative (Negative); Urine Glucose Negative (Negative); Urine Protein Negative (Negative); Urine Specific Gravity 1.015 (1.005-1.030)
[2022-01-23 20:45] LABS: Barbiturates NEGATIVE (NEGATIVE); Benzodiazepines POSITIVE (NEGATIVE); Cocaine NEGATIVE (NEGATIVE); METHAMPHETAM NEGATIVE (NEGATIVE); Methadone NEGATIVE (NEGATIVE); Opiates NEGATIVE (NEGATIVE); Phencyclidine NEGATIVE (NEGATIVE); THC Cannibis NEGATIVE (NEGATIVE)
--- NOTE | 2022-01-23 20:48 | EDPHYS ---
Physician Documentation [facility] Name: Blayne Macias Age: 61 yrs Sex: Male : 1960 Arrival Date: 01/23/2022 Time: 17:57 Bed 8 Private MD: ED Physician Peng Mitchell HPI: 01/23 18:10 This 61 yrs old Male presents to ER via EMS with complaints of Altered Mental Status. cp 18:10 The patient presents to the emergency department with a possible overdose, found with cp bottle of Xanax in room. Patient admits to consuming 4 tablets of 0.25 mg Xanax today. ED nurse reports finding prescribed Ketamine nasal spray in pocket. 18:10 Associated signs and symptoms: Pertinent positives: decreased level of consciousness, cp Pertinent negatives: auditory hallucinations, diaphoresis, diarrhea, dizziness, shortness of breath, visual hallucinations, vomiting. 18:10 Severity of symptoms: in the emergency department the symptoms have improved. cp Historical: - Allergies: 18:06 Codeine; 6 18:06 PENICILLINS; [facility] 18:06 Morphine; jh6 - PMHx: 18:06 "electrical stimulator"; Atrial Fib; Back pain; Bipolar disorder; CAD; CHF; chronic jh6 back pain; Cirrhosis; COPD; Hepatitis; High Cholesterol; Hypertension; Pneumonia; - Immunization history:: Client reports receiving the 2nd dose of the Covid vaccine. - Social history:: Smoking status: unknown. ROS: 18:15 Constitutional: Negative for body aches, chills, fever, poor PO intake. cp 18:15 Cardiovascular: Positive for chest pain, Negative for edema, palpitations. cp 18:15 Respiratory: Negative for shortness of breath, wheezing. 18:15 Abdomen/GI: Negative for abdominal pain, nausea, vomiting, and diarrhea. 18:15 : Negative for urinary symptoms. 18:15 Neuro: Positive for altered mental status, Negative for dizziness, headache, seizure activity, weakness. 18:15 All other systems are negative. cp Exam: 18:17 ECG was reviewed by the Attending Physician. cp 18:20 Constitutional: The patient appears in no acute distress, non-diaphoretic, non-toxic, cp well developed, well nourished. 18:20 Head/Face: Normocephalic, atraumatic. cp 18:20 Eyes: Periorbital structures: appear normal, Pupils: pinpoint, bilaterally, Extraocular movements: intact throughout, Conjunctiva: normal, no exudate, no injection, Sclera: no appreciated abnormality, Lids and lashes: appear normal, bilaterally. 18:20 ENT: External ear(s): are unremarkable, Nose: is normal, Mouth: Lips: dry, Oral mucosa: moist, Posterior pharynx: Airway: no evidence of obstruction, patent. 18:20 Neck: ROM/movement: is normal, is supple, without pain, no range of motions limitations, no meningismus. 18:20 Chest/axilla: Inspection: normal. 18:20 Cardiovascular: Rate: bradycardic, Rhythm: regular, Edema: is not appreciated, JVD: is not appreciated. 18:20 Respiratory: the patient does not display signs of respiratory distress, Respirations: normal, no use of accessory muscles, no retractions, labored breathing, is not present, Breath sounds: bronchial sounds, that are mild, are heard diffusely, stridor, is not appreciated, wheezing: is not appreciated. 18:20 Abdomen/GI: Inspection: abdomen appears normal, Palpation: abdomen is soft and non-tender, in all quadrants. 18:20 Skin: no rash present. 18:20 Neuro: Orientation: to person, place \\T\\ time. Mentation: able to follow commands, somnolent, Motor: moves all fours, strength is normal, Sensation: is normal. Vital Signs: 18:06 BP 132 / 76; Pulse 56; Resp 17; Temp 97.4(TE); Weight 75.3 kg; Height 5 ft. 9 in. jh6 (175.26 cm); Pain 5/10; 18:47 BP 137 / 76; Pulse 56; Resp 15; Pulse Ox 96% ; jl7 20:00 BP 163 / 84; Pulse 60; Resp 17 S; Pulse Ox 96% on R/A; as6 21:00 BP 166 / 93; Pulse 68; Resp 20 S; Pulse Ox 96% on R/A; as6 22:11 BP 202 / 98; Pulse 68; Resp 18 S; Pulse Ox 93% on R/A; as6 23:00 BP 160 / 89; Pulse 66; Resp 18; Pulse Ox 92% on R/A; jb4 18:06 Body Mass Index 24.51 (75.30 kg, 175.26 cm) jh6 MDM: 18:03 Patient medically screened. cp 19:00 Differential diagnosis: over medication, hypoglycemia, closed head injury, intracranial cp hemorrhage, sepsis. 01/24 00:50 Data reviewed: vital signs, nurses notes, lab test result(s), EKG, radiologic studies, cp CT scan, plain films. 00:50 Physician consultation: Gilberto Nevarez regarding admission, to the telemetry unit. cp patient's condition, in the emergency department to see patient at 20:50, recommends discharge to home as patient is not in respiratory distress and oxygen sats remain in 90's when ambulating in ED. 01/23 18:06 Order name: Basic Metabolic Panel; Complete Time: 19:11 cp 04 20:31 Interpretation: Normal except: CL 110; BUN 31; GFR 58. cp 01/23 18:06 Order name: CBC with Diff; Complete Time: 19:46 cp 01/23 19:46 Interpretation: Normal except: RBC 2.95; HGB 9.0; HCT 26.9; EOSINOPHIL % 7.1; EOSA 0.7. cp 0401 18:06 Order name: LFT's; Complete Time: 19:46 cp 01/23 18:06 Order name: Magnesium; Complete Time: 19:46 cp 01/23 18:06 Order name: NT PRO-BNP; Complete Time: 19:46 cp 0401 20:31 Interpretation: NT PRO-BNP 5152; Reviewed. cp 04 18:06 Order name: PT-INR; Complete Time: 19:46 cp 01/23 18:06 Order name: Troponin HS; Complete Time: 19:46 cp 01/23 18:06 Order name: Acetaminophen; Complete Time: 19:46 cp 01/23 18:06 Order name: ETOH Level; Complete Time: 19:46 cp 01/23 18:06 Order name: Ptt, Activated; Complete Time: 19:46 cp 01/23 18:06 Order name: Salicylate; Complete Time: 20:30 cp 01/23 18:06 Order name: Urine Drug Screen; Complete Time: 20:46 cp 01/23 20:30 Order name: Urine Dipstick-Ancillary; Complete Time: 20:33 EDMS 01/23 20:33 Order name: Procalcitonin; Complete Time: 22:54 cp 01/23 18:06 Order name: XRAY Chest (1 view); Complete Time: 19:46 cp 01/23 18:06 Order name: EKG; Complete Time: 18:07 cp 01/23 18:06 Order name: Cardiac monitoring; Complete Time: 18:27 cp 01/23 18:06 Order name: EKG - Nurse/Tech; Complete Time: 19:21 cp 01/23 18:06 Order name: IV Saline Lock; Complete Time: 19:21 cp 01/23 18:06 Order name: Labs collected and sent; Complete Time: 19:21 cp 01/23 18:06 Order name: CT Head C Spine; Complete Time: 19:46 cp 01/23 20:33 Order name: Lactate; Complete Time: 22:05 cp 01/23 20:35 Order name: Blood Culture Adult (2) cp 01/23 20:49 Order name: COVID-19/FLU A+B (Document "Date of Onset" if Symptomatic); Complete Time: cp 22:54 01/23 20:56 Order name: Chest Wo Con CT; Complete Time: 22:05 la1 01/23 18:06 Order name: O2 Per Protocol; Complete Time: 19:21 cp 01/23 18:06 Order name: O2 Sat Monitoring; Complete Time: 19:21 cp 01/23 18:06 Order name: Urine Dipstick-Ancillary (obtain specimen); Complete Time: 20:30 cp 01/23 22:12 Order name: Misc. Order: ambulate patient with pulse ox; Complete Time: 00:05 cp EC/01 18:17 Rate is 58 beats/min. Rhythm is regular. NV interval is prolonged at 236 msec. QRS cp interval is prolonged at 110 msec. QT interval is normal. T waves are Inverted in leads I, aVL. Interpreted by me. Reviewed by me. Administered Medications: 18:45 Drug: NS 0.9% 500 ml Route: IV; Rate: bolus; Site: right wrist; jh6 20:05 Follow up: Response: No adverse reaction; IV Status: Completed infusion; IV Intake: jb4 500ml 20:04 Drug: NS 0.9% 500 ml Route: IV; Rate: 125 ml/hr; Site: right hand; jb4 01/24 01:01 Follow up: Response: No adverse reaction; IV Status: Completed infusion; IV Intake: as6 500ml 01/23 22:09 Drug: Rocephin - (cefTRIAXone) 1 grams Route: IVPB; Infused Over: 30 mins; Site: right jb4 hand; 01/24 01:01 Follow up: Response: No adverse reaction; IV Status: Completed infusion; IV Intake: [id number] 01/23 22:37 Drug: Zithromax (azithromycin) 500 mg Route: IVPB; Infused Over: 1 hrs; Site: right as6 hand; 01/24 01:02 Follow up: Response: No adverse reaction; IV Status: Completed infusion; IV Intake: as6 250ml 01/23 23:30 Not Given (Physician Discretion): hydrALAZINE 10 mg IVP once jb4 Disposition: 01/24 09:03 Co-signature as Attending Physician, Peng Mitchell MD. rn Disposition Summary: 01/24/22 00:52 Discharge Ordered Location: Home(01/24/22 00:52) cp Problem: new(01/24/22 00:52) cp Symptoms: have improved(01/24/22 00:52) cp Condition: Stable(01/24/22 00:52) cp Diagnosis - Other pneumonia, unspecified organism(01/24/22 00:52) cp - Adverse effect of benzodiazepines, initial encounter cp - Patient's other noncompliance with medication regimen cp Followup: cp - With: Private Physician - When: 2 - 3 days - Reason: Recheck today's complaints Discharge Instructions: - Discharge Summary Sheet cp - Community-Acquired Pneumonia, Adult cp - Benzodiazepine Overdose cp - Aspirin and Your Heart cp Forms: - Medication Reconciliation Form cp - Thank You Letter cp - Antibiotic Education cp - Prescription Opioid Use cp Prescriptions: - Zithromax Z-Russell 250 mg Oral Tablet - take 1 tablet by ORAL route as directed for 5 days Day 1 - take two (2) tablets cp one time. Day 2, 3, 4 , 5 take one (1) tablet once daily.; 6 tablet; Refills: 0, Product Selection Permitted Signatures: Dispatcher [employer] EDPeng Smith MD MD rn Attema, Lee, SABAS-C ROUNDING AND BACKING MACHINE OPERATOR-Cla1 Michael Doherty PA PA cp Wilfrido Mcnulty RN RN jb4 Luis Miguel Calderon RN RN as6 Kisha Xiong RN RN jh6 Corrections: (The following items were deleted from the chart) 01/23 20:51 20:48 Gilberto Nevarez cp la1 01/24 00:49 01/23 20:48 Inpatient Admission cp cp 01/24 00:49 01/23 20:48 Telemetry/MedSurg (Inpatient) cp cp 01/24 00:49 01/23 20:48 Stable cp cp 01/24 00:49 01/23 20:48 new cp cp 01/24 00:49 01/23 20:48 have improved cp cp 01/24 00:49 01/23 20:48 Standard cp cp 01/24 00:49 01/23 20:48 cp cp 01/24 00:49 01/23 20:48 Other pneumonia, unspecified organism cp cp 01/24 00:49 01/23 20:51 Isaiah Alvarenga la1 cp 01/24 23:39 01/23 18:15 All other systems are negative, cp cp
--- NOTE | 2022-01-23 20:48 | ER ---
Nurse's Notes [facility] Name: Blayne Macias Age: 61 yrs Sex: Male : 1960 Arrival Date: 01/23/2022 Time: 17:57 Bed 8 Private MD: Diagnosis: Other pneumonia, unspecified organism;Adverse effect of benzodiazepines, initial encounter;Patient's other noncompliance with medication regimen Presentation: 01/23 18:04 Chief complaint: EMS states: called to assisted living facility for a pt that possibly jh6 taken to many Xanax. Pt does admit to taking 4 0.4mg xanax a hr ago. Stated that he was not trying to harm himself. 18:09 Coronavirus screen: Vaccine status: Patient reports receiving the 2nd dose of the covid jh6 vaccine. Ebola Screen: Patient negative for fever greater than or equal to 101.5 degrees Fahrenheit, and additional compatible Ebola Virus Disease symptoms Patient denies exposure to infectious person. Patient denies travel to an Ebola-affected area in the 21 days before illness onset. Initial Sepsis Screen: Does the patient meet any 2 criteria? No. Patient's initial sepsis screen is negative. Does the patient have a suspected source of infection? No. Patient's initial sepsis screen is negative. Risk Assessment: Do you want to hurt yourself or someone else? Patient reports no desire to harm self or others. Onset of symptoms was January 23, 2022. 18:09 Acuity: SENTHIL 3 jh6 18:09 Method Of Arrival: EMS: [facility] Historical: - Allergies: 18:06 Codeine; [facility] 18:06 PENICILLINS; 6 18:06 Morphine; jh - PMHx: 18:06 "electrical stimulator"; Atrial Fib; Back pain; Bipolar disorder; CAD; CHF; chronic [facility] back pain; Cirrhosis; COPD; Hepatitis; High Cholesterol; Hypertension; Pneumonia; - Immunization history:: Client reports receiving the 2nd dose of the Covid vaccine. - Social history:: Smoking status: unknown. Screenin:08 Abuse screen: Denies threats or abuse. Nutritional screening: No deficits noted. [facility] Tuberculosis screening: No symptoms or risk factors identified. Fall Risk Secondary diagnosis (15 points) impaired mobility, IV access (20 points). Mental Status- Oriented to own ability (0 pts). Assessment: 18:07 General: Appears in no apparent distress. comfortable, Behavior is calm, cooperative, jh6 drowsy. Pain: Complains of pain in back Pain currently is 4 out of 10 on a pain scale. Quality of pain is described as aching, Pain began years ago. Is continuous, Aggravated by increased activity. 19:22 Reassessment: Pt is lethargic. Awakens to voice. Respirations are even and unlabored jb4 with no s/s of pain or distress noted. 20:45 Reassessment: Pr is now awake. is confused and continues to repeat the same question. jb4 Respirations are even and unlabored with no s/s of pain or distress noted. 22:00 Reassessment: Patient appears in no apparent distress at this time. Patient and/or jb4 family updated on plan of care and expected duration. Pain level reassessed. Patient is alert, oriented x 3, equal unlabored respirations, skin warm/dry/pink. 23:00 Reassessment: Patient appears in no apparent distress at this time. Patient and/or jb4 family updated on plan of care and expected duration. Pain level reassessed. Patient is alert, oriented x 3, equal unlabored respirations, skin warm/dry/pink. 01/24 00:05 General: ambulated pt, SpO2 levels remained >90% RA, pt tolerated well . as6 02:35 Reassessment: Patient appears in no apparent distress at this time. Patient and/or jb4 family updated on plan of care and expected duration. Pain level reassessed. Patient is alert, oriented x 3, equal unlabored respirations, skin warm/dry/pink. Discharge pending ride home. Vital Signs: 01/23 18:06 BP 132 / 76; Pulse 56; Resp 17; Temp 97.4(TE); Weight 75.3 kg; Height 5 ft. 9 in. jh6 (175.26 cm); Pain 5/10; 18:47 BP 137 / 76; Pulse 56; Resp 15; Pulse Ox 96% ; jl7 20:00 BP 163 / 84; Pulse 60; Resp 17 S; Pulse Ox 96% on R/A; as6 21:00 BP 166 / 93; Pulse 68; Resp 20 S; Pulse Ox 96% on R/A; as6 22:11 BP 202 / 98; Pulse 68; Resp 18 S; Pulse Ox 93% on R/A; as6 23:00 BP 160 / 89; Pulse 66; Resp 18; Pulse Ox 92% on R/A; jb4 18:06 Body Mass Index 24.51 (75.30 kg, 175.26 cm) [facility] ED Course: 17:57 Patient arrived in ED. 6 17:58 Michael Doherty PA is PHCP. cp 17:58 Peng Mitchell MD is Attending Physician. cp 18:07 Arm band placed on left wrist. EKG completed in triage. Results shown to MD. jh6 18:09 Triage completed. jh6 18:10 Placed in gown. Bed in low position. Call light in reach. Side rails up X 1. 6 18:17 EKG done, by ED staff, reviewed by Michael BOLAÑOS. jl7 18:45 Inserted saline lock: 24 gauge in right wrist, using aseptic technique. Blood collected.[facility] 18:47 Elaine Paniagua, RN is Primary Nurse. jl7 19:03 CT Head C Spine In Process Unspecified. EDMS 19:10 XRAY Chest (1 view) In Process Unspecified. EDMS 20:30 Urine Drug Screen Sent. tw5 20:47 Gilberto Nevarez is Hospitalizing Provider. cp 20:51 Isaiah Alvarenga MD is Hospitalizing Provider. la1 21:[address] In Process Unspecified. EDMS 0402 03:02 No provider procedures requiring assistance completed. IV discontinued, intact, as6 bleeding controlled, No redness/swelling at site. Pressure dressing applied. Administered Medications: 01/23 18:45 Drug: NS 0.9% 500 ml Route: IV; Rate: bolus; Site: right wrist; 6 20:05 Follow up: Response: No adverse reaction; IV Status: Completed infusion; IV Intake: jb4 500ml 20:04 Drug: NS 0.9% 500 ml Route: IV; Rate: 125 ml/hr; Site: right hand; [facility] 01/24 01:01 Follow up: Response: No adverse reaction; IV Status: Completed infusion; IV Intake: as6 500ml 01/23 22:09 Drug: Rocephin - (cefTRIAXone) 1 grams Route: IVPB; Infused Over: 30 mins; Site: right jb4 hand; 01/24 01:01 Follow up: Response: No adverse reaction; IV Status: Completed infusion; IV Intake: 24pbym5 01/23 22:37 Drug: Zithromax (azithromycin) 500 mg Route: IVPB; Infused Over: 1 hrs; Site: right as6 hand; 01/24 01:02 Follow up: Response: No adverse reaction; IV Status: Completed infusion; IV Intake: as6 250ml 01/23 23:30 Not Given (Physician Discretion): hydrALAZINE 10 mg IVP once jb4 Intake: 20:05 IV: 500ml; Total: 500ml. jb4 01/24 01:01 IV: 500ml; Total: 1000ml. as6 01:01 IV: 50ml; Total: 1050ml. as6 01:02 IV: 250ml; Total: 1300ml. as6 Outcome: 01/23 20:48 Decision to Hospitalize by Provider. cp 01/24 00:52 Discharge ordered by MD. cp 03:02 Discharged to skilled nursing. Report called to risa as6 03:02 Condition: stable 03:02 Discharge instructions given to patient, skilled nursing, Instructed on discharge instructions, follow up and referral plans. medication usage, Demonstrated understanding of instructions, follow-up care, medications, Prescriptions given X 1. 03:03 Patient left the ED. as6 Signatures: Dispatcher [employer] EDMS Gilberto Nevarez, TRAINING DEVELOPMENT DIRECTOR-C TRAINING DEVELOPMENT DIRECTOR-Cla1 Michael Doherty PA PA cp Bryson, James, RN RN jb4 Elaine Paniagua RN RN jl7 Isamar Mandel tw5 Luis Miguel Calderon RN RN as6 Kisha Xiong RN RN jh6
[2022-01-23] MEDS ORDERED: AZITHROMYCIN 500 MG INJ IVPB ONE (21:52)
[2022-01-23] MEDS ORDERED: CEFTRIAXONE 1000 MG/VIAL ONE (21:52)
[2022-01-23] MEDS ORDERED: NA CHLORIDE 0.9% 50 ML ONE (21:53)
[2022-01-23] MEDS ORDERED: NA CHLORIDE 0.9% 250 ML ONE (21:53)
--- NOTE | 2022-01-23 21:59 | RAD REPORT ---
EXAM DESCRIPTION: CT - Thorax Wo Con - 01/23/2022 9:51 pm CLINICAL HISTORY: SHOB, ABN CXR COMPARISON: Chest Angio dated 03/03/2020; Chest Single View dated 01/23/2022 TECHNIQUE: Axial 5 mm thick images of the chest were obtained without IV contrast. All CT scans are performed using dose optimization technique as appropriate and may include automated exposure control or mA/KV adjustment according to patient size. FINDINGS: Extensive interstitial thickening is present throughout the lung loza most notable in th e right upper lung field and in the superior aspect of the left lower lobe. Findings are substantiall y progressive from 2019 study. No large area consolidation seen. There are airspace opacities present the upper lung loza and in the mid left lung field. Small left pleural effusion is present. No ple ural based mass. No pneumothorax. Nonspecific mediastinal and hilar lymph nodes are present likely reactive. No cardiomegaly or pericar dial effusion. No gross aortic or pulmonary artery finding suspected. Assessment is limited in the a bsence of IV contrast. No chest wall mass or abnormal axillary lymphadenopathy. IMPRESSION: Extensive interstitial opacification and patchy alveolar opacities are present as detail ed. Findings are substantially different from the 2019 study. In the acute clinical setting, pneumonia is the primary consideration. Progressive fibrosis is possib le though such a significant interval change from 2019 would be unusual.
[2022-01-23 22:08] LABS: SARS-COV-2 RT PCR NEGATIVE (NEGATIVE)
[2022-01-24 05:01] VITALS: TEMP 97.4
[2022-01-24 05:07] VITALS: BP 160/89; O2SAT 92
--- NOTE | 2022-01-26 11:18 | EKG ---
Test Date: 2022-01-23 Test Time: 18:10:50 Drill Rig Operator Helper: ARTEM MEASUREMENT RESULTS: Intervals: Rate: 58 NC: 236 QRSD: 110 QT: 492 QTc: 482 [place]: P: 74 NC: 236 QRS: 53 T: 143 INTERPRETIVE STATEMENTS: Sinus bradycardia with 1st degree AV block RSR' or QR pattern in V1 suggests right ventricular conduction delay Septal infarct, age undetermined ST & T wave abnormality, consider lateral ischemia Abnormal ECG Compared to ECG 11/23/2021 13:05:11 First degree AV block now present Sinus arrhythmia no longer present Left ventricular hypertrophy no longer present Early repolarization no longer present Myocardial infarct finding still present Electronically Signed On 01-26-22 11:13:20 CDT by Ghulam Berrios
== END 2022-01-24 03:03 | disposition home or self-care (01) ==
LOC: ER 17:39
DX: J18.8 Other pneumonia, unspecified organism (principal); R07.9 Chest pain, unspecified; T42.4X5A Adverse effect of benzodiazepines, initial encounter; Z91.14 Patient's other noncompliance with medication regimen; F31.9 Bipolar disorder, unspecified; E78.00 Pure hypercholesterolemia, unspecified; I10 Essential (primary) hypertension; I48.91 Unspecified atrial fibrillation; I50.9 Heart failure, unspecified; Z20.822 Contact with and (suspected) exposure to COVID-19; Z88.0 Allergy status to penicillin; Z88.5 Allergy status to narcotic agent
CPT/HCPCS: 96365; 96361; 93005; 87040 ×2; 85025; 80048; 36415; 80320; 83735; 80329 ×2; 85610; 80076; 83605; 85730; 81003; 84484; 84145; 83880; 0240U; 80307; 70450; 71250; 72125; 71045; 99284; 96366; J0456; J7050; J7040 ×2

== ENCOUNTER 2024-11-18 19:01 | Inpatient (IN) | payer OTHER ==
[2024-11-18 20:01] LABS: Absolute Basophils 0.1 K/uL (0-0.5); Absolute Lymphocytes (CBC) 1.2 K/uL (0.7-4.9); Absolute Monocytes 0.5 K/uL (0.1-1.3); Absolute Neutrophil 12.3 K/uL (1.8-8.0); Basophils % 0.5 % (0-1.3); Eosinophils % 0.1 % (0-4.4); Hematocrit 37.5 % (39.6-49.0); Hemoglobin 12.8 g/dL (13.6-17.9); Lymphocytes % 8.5 % (15.3-44.8); MCV 88.2 fL (80-100); MPV 9.1 fL (7.6-11.3); Monocytes % 3.4 % (3.3-12.3); Neutrophils % 87.5 % (41.7-73.7); Platelets 296 thou/uL (152-406); RBC Red Blood Cell Count 4.25 M/uL (4.33-5.43); Red Cell Distribution Width 13.4 % (12.1-15.2)
[2024-11-18 20:06] LABS: PT Prothrombin Time 13.7 SECONDS (9.4-12.5); Protime INR 1.31
[2024-11-18 20:21] LABS: Albumin 3.5 g/dL (3.4-5.0); Albumin/Globulin Ratio 0.7 (1.1-1.8); Alkaline Phosphatase 40 U/L (45-117); Anion Gap 12.5 mEq/L (5.0-15.0); BUN Blood Urea Nitrogen 13 mg/dL (7-18); Bicarbonate 23 mEq/L (21-32); Bilirubin Total 0.4 mg/dL (0.2-1.0); Globulin 5.1 g/dL (2.3-3.5); Glomerular Filtration Rate 99 ml/min (=/>90); Glucose Level 125 mg/dL (74-106); NT PRO-BNP 5574 pg/mL (<125); Protein, Total 8.6 g/dL (6.4-8.2); Sodium Level 134 mEq/L (136-145); Troponin High Sensitivity 39.6 pg/mL (<58.9)
--- NOTE | 2024-11-18 20:22 | RAD REPORT ---
EXAMINATION: CT HEAD WITHOUT CONTRAST CT CERVICAL SPINE WITHOUT CONTRAST CLINICAL INDICATION: Head and neck injury status post fall. Head and neck pain TECHNIQUE: Axial CT images from the skull base to the vertex without intravenous contrast. Axial CT i mages through the cervical spine were obtained without intravenous contrast. Sagittal and coronal reformatted images were created from the data set. Coronal and sagittal reformatted images were creat ed from the data set. One or more of the following dose reduction techniques were used: Automated exposure control, adjustment of the mA and/or kV according to patient size, and/or iterative reconstr uction. Unless otherwise specified, incidental findings do not require dedicated imaging follow-up. [id number]. Comparison: June 2024 FINDINGS: Artifact from instrumentation within the suboccipital and cervical spine results in significant beam hardening artifact limiting evaluation of brainstem and cerebellum. 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 Mild to moderate low-density paraventricular, deep and subcortical white matter likely ischemic dudley es secondary to small vessel disease. An intracranial bleed is not seen. Ventricles are normal in caliber. No extra-axial fluid collection. Fluid is present within the right maxillary sinus. This likely represents acute sinusitis. Right aspe ct of the sphenoid sinus is opacified. Extensive postsurgical changes involve the cervical spine with anterior and posterior fusion. Laminec tomies C1-C3. No fracture or dislocation is seen involving the cervical spine. Spondylosis is present. IMPRESSION: No acute intracranial abnormality noted A cervical fracture is not seen. If the patient continues to have symptoms to suggest acute LINEN ROOM SUPERVISOR/spinal pathology then MRI would be rec ommended
[2024-11-18 20:23] LABS: ALT/SGPT < 14 U/L (16-61); AST/SGOT 21 U/L (15-37); Bilirubin Direct < 0.2 mg/dL (0-0.2); Bilirubin Indirect, Calculated 0.2 mg/dL (0.2-0.8); Magnesium 2.5 mg/dL (1.6-2.4); Potassium 4.5 mEq/L (3.5-5.1)
--- NOTE | 2024-11-18 20:30 | RAD REPORT ---
EXAM: CT CHEST, ABDOMEN AND PELVIS WITHOUT CONTRAST CLINICAL INDICATION: Chest and abdominal pain status post fall TECHNIQUE: CT chest, abdomen and pelvis was performed, without IV contrast, as per department protoco l. Axial, sagittal and coronal reconstructions were obtained. One or more of the following dose reduction techniques were used: Automated exposure control, adjustment of the mA and/or kV according to the patient size, and/or iterative reconstruction. Unless otherwise specified, incidental findings do not require dedicated imaging follow-up. The lack of IV and oral contrast limits evaluation of the mediastinum, effie, vessels, organs and antonio l. COMPARISON: June 2024 FINDINGS: A pulmonary contusion is not seen No mediastinal hematoma. No pleural effusion. No pericardial effusion. Liver, spleen, pancreas, adrenals kidneys and bladder do not demonstrate a traumatic injury. Prominent arterial calcifications. Large amount stool throughout the colon. Rectum is mildly distended with stool. There may be a fecal impaction. Post surgical changes lumbar spine. There is no evidence of diverticulitis IMPRESSION: No acute traumatic injury involving chest, abdomen/pelvis
[2024-11-18] MEDS ORDERED: FAMOTIDINE 20 MG/2 ML VIAL IV ONE (20:48)
[2024-11-18] MEDS ORDERED: ONDANSETRON 4 MG/2 ML VIAL ONE ×2 (20:48→21:55)
[2024-11-18] MEDS ORDERED: NA CHLORIDE 0.9% 500 ML ONE (20:48)
[2024-11-18] MEDS ORDERED: LABETALOL 20 MG/4ML SYRINGE IV ONE (20:49)
--- NOTE | 2024-11-18 20:49 | RAD REPORT ---
Procedure: Chest Single View HISTORY: Cough COMPARISON: June 2024 FINDINGS: The lungs appear clear of acute infiltrate. No significant pleural effusion noted. The heart is normal size. Post surgical changes involve the chest. IMPRESSION: No acute abnormality is displayed.
--- NOTE | 2024-11-18 21:24 | EDPHYS ---
Physician Documentation [facility] Name: Blayne Macias Age: 63 yrs Sex: Male : 1960 Arrival Date: 11/18/2024 Time: 19: Bed 19 Private MD: ED Physician Michael Estrada HPI: 11/18 19:56 This 63 yrs old Male presents to ER via EMS with complaints of High Blood berta Pressure. 19:56 The patient has elevated blood pressure and discovered this at home, retirement. Onset: berta The symptoms/episode began/occurred 2 day(s) ago. Modifying factors: The symptoms are aggravated by activity, The symptoms are alleviated by remaining still. Associated signs and symptoms: Pertinent positives: headache, lightheadedness, vomiting, weakness. Severity of symptoms: At its worst the blood pressure was moderate, in the emergency department the blood pressure is unchanged. The patient has not experienced similar symptoms in the past. Historical: - Allergies: 19:19 Codeine; kj2 19:19 Morphine; kj2 19:19 PENICILLINS; kj2 - Immunization history:: Adult Immunizations unknown. - Infectious Disease History:: Denies. - Social history:: Smoking status: Patient denies any tobacco usage or history of. ROS: 19:57 Constitutional: Negative for fever, chills, and weight loss, Eyes: Negative for injury, berta pain, redness, and discharge, ENT: Negative for injury, pain, and discharge, Neck: Negative for injury, pain, and swelling, Respiratory: Negative for shortness of breath, cough, wheezing, and pleuritic chest pain, Back: Negative for injury and pain, : Negative for injury, bleeding, discharge, and swelling, Neuro: Negative for headache, weakness, numbness, tingling, and seizure, Psych: Negative for depression, anxiety, suicide ideation, homicidal ideation, and hallucinations, Allergy/Immunology: Negative for hives, rash, and allergies, Endocrine: Negative for neck swelling, polydipsia, polyuria, polyphagia, and marked weight changes, Hematologic/Lymphatic: Negative for swollen nodes, abnormal bleeding, and unusual bruising, 19:57 Cardiovascular: Positive for chest pain, with cough, of the chest, with nausea and vomiting, 19:57 Abdomen/GI: Positive for abdominal pain, nausea and vomiting, abdominal cramps, 19:57 MS/extremity: Positive for decreased range of motion, pain, tenderness, of the right leg, left aka, Exam: 19:57 Constitutional: This is a well developed, well nourished patient who is awake, alert, berta and in no acute distress. Head/Face: Normocephalic, atraumatic. Eyes: Pupils equal round and reactive to light, extra-ocular motions intact. Lids and lashes normal. Conjunctiva and sclera are non-icteric and not injected. Cornea within normal limits. Periorbital areas with no swelling, redness, or edema. ENT: Nares patent. No nasal discharge, no septal abnormalities noted. Tympanic membranes are normal and external auditory canals are clear. Oropharynx with no redness, swelling, or masses, exudates, or evidence of obstruction, uvula midline. Mucous membranes moist. Neck: Trachea midline, no thyromegaly or masses palpated, and no cervical lymphadenopathy. Supple, full range of motion without nuchal rigidity, or vertebral point tenderness. No Meningismus. Chest/axilla: Normal chest wall appearance and motion. Nontender with no deformity. No lesions are appreciated. Cardiovascular: Regular rate and rhythm with a normal S1 and S2. No gallops, murmurs, or rubs. Normal PMI, no JVD. No pulse deficits. Respiratory: Lungs have equal breath sounds bilaterally, clear to auscultation and percussion. No rales, rhonchi or wheezes noted. No increased work of breathing, no retractions or nasal flaring. Back: No spinal tenderness. No costovertebral tenderness. Full range of motion. Male : Normal genitalia with no discharge or lesions. Skin: Warm, dry with normal turgor. Normal color with no rashes, no lesions, and no evidence of cellulitis. Neuro: Awake and alert, GCS 15, oriented to person, place, time, and situation. Cranial nerves II-XII grossly intact. Motor strength 5/5 in all extremities. Sensory grossly intact. Cerebellar exam normal. Normal gait. Psych: Awake, alert, with orientation to person, place and time. Behavior, mood, and affect are within normal limits. 19:57 ECG was reviewed by the Attending Physician. 19:57 Abdomen/GI: Inspection: abdomen appears normal, Bowel sounds: normal, Palpation: mild abdominal tenderness, in all quadrants, Liver: no appreciated palpable abnormalities, Hernia: not appreciated, Vital Signs: 19:00 BP 211 / 116; Pulse 90; Resp 18; Temp 98.4; Pulse Ox 100% on R/A; kj2 21:01 BP 188 / 101; Pulse 72; Resp 18; Pulse Ox 98% on R/A; kj2 22:00 BP 194 / 104; Pulse 89; Resp 20; Pulse Ox 100% ; kj2 MDM: 19:21 Medical Screening Exam initiated berta 20:00 Differential diagnosis: Nonspecific abd pain, gastritis, cholecystitis, pancreatitis, berat appendicitis, diverticulitis, viral gastroenteritis, gastroenteritis, hypertensive crisis, Malignant HTN, CVA, intracerebral hemorrhage, appendicitis, cholecystitis, Cholelithiasis, diverticulitis, gastritis, gastroesophageal reflux disease, GI Bleed, Mesenteric ischemia or infarction, myocardia ischemia or infarction, non-specific abd pain, pancreatitis. Data reviewed: vital signs, nurses notes, EMS record, lab test result(s), EKG, radiologic studies, CT scan, plain films. Consideration of Admission/Observation Patient was admitted/placed on observation. Escalation of care including admission/observation considered. I considered the following discharge prescriptions or medication management in the emergency department Medications were administered in the Emergency Department. See MAR. Independent interpretation of the following test(s) in the Emergency Department EKG: See my EKG interpretation above. Test considered but Not performed: Ultrasound no and usg. Historians other than the Patient: EMS: ems well informed. Care significantly affected by the following chronic conditions: Diabetes, Hypertension. Counseling: I had a detailed discussion with the patient and/or guardian regarding the historical points, exam findings, and any diagnostic results supporting the discharge/admit diagnosis, lab results, radiology results, the need for further work-up and treatment in the hospital. 11/18 18: Order name: Basic Metabolic Panel; Complete Time: 21: [facility] 11/18 18:22 Order name: CBC with Diff 11/18: Order name: LFT's; Complete Time: 21:11/18 19:22 Order name: Magnesium; Complete Time: 21:11/18 19:22 Order name: NT PRO-BNP; Complete Time: 21:11/18: Order name: PT-INR; Complete Time: 20: [facility] 11/18 19:22 Order name: Troponin HS; Complete Time: 21:09 [facility] 11/18 19:22 Order name: Urinalysis w/ reflexes [facility] 11/18 19:34 Order name: Lipase; Complete Time: 21:09 [facility] 11/18 21:19 Order name: Valproic Acid (depakote) [facility] 11/18 22:04 Order name: Thyroid Stimulating Hormone [facility] 11/18 22:04 Order name: CBC with Automated Diff [facility] 11/18 22:04 Order name: CBC with Automated Diff [facility] 11/18 22:04 Order name: Comprehensive Metabolic Panel [facility] 11/18 22:04 Order name: Comprehensive Metabolic Panel [facility] 11/18 22:04 Order name: Comprehensive Metabolic Panel [facility] 11/18 22:04 Order name: Comprehensive Metabolic Panel [facility] 11/18 22:04 Order name: Comprehensive Metabolic Panel [facility] 11/18 22:04 Order name: Magnesium [facility] 11/18 22:04 Order name: Magnesium [facility] 11/18 22:04 Order name: Magnesium [facility] 11/18 22:04 Order name: Magnesium [facility] 11/18 22:04 Order name: Troponin High Sensitivity [facility] 11/18 22:04 Order name: Troponin High Sensitivity [facility] 11/18 22:04 Order name: Troponin High Sensitivity [facility] 11/19 03:16 Order name: CBC Smear Scan [facility] 11/18 19:22 Order name: XRAY Chest (1 view); Complete Time: 21:09 [facility] 11/18 19:43 Order name: Chest Abd Pelvis Wo Con; Complete Time: 21:09 [facility] 11/18 19:44 Order name: Head C Spine Mpr Wo Con; Complete Time: 21:09 [facility] 11/18 21:24 Order name: US Extremity Venous W Compression Bipin [facility] 11/18 19:22 Order name: Cardiac monitoring; Complete Time: 21:06 [facility] 11/18 19:22 Order name: EKG - Nurse/Tech; Complete Time: 21:06 [facility] 11/18 19:22 Order name: IV Saline Lock; Complete Time: 21: [facility] 11/18 19:22 Order name: Labs collected and sent; Complete Time: 21:06 [facility] 11/18 19:22 Order name: O2 Per Protocol; Complete Time: 21:06 [facility] 11/18 19:22 Order name: O2 Sat Monitoring; Complete Time: 21:06 [facility] EC:57 Rate is 94 beats/min. Rhythm is regular. QRS [place] is Normal. ME interval is normal. QRS berta interval is normal. QT interval is normal. No Q waves. T waves are Normal. No ST changes noted. Clinical impression: NSR w/ Non-specific ST/T Changes and No evidence of ischemia. Interpreted by me. Reviewed by me. Administered Medications: 21:03 Drug: Labetalol IV 10 mg IV at per protocol once Route: IV; Rate: per protocol; Site: kj2 right antecubital; 22:00 Follow up: IV Status: Completed infusion; IV Intake: 1ml br2 21:03 Drug: Famotidine IVP 20 mg IVP once; dilute with 10 mL 0.9% NaCl; give over 2 minutes kj2 Route: IVP; Site: right antecubital; 21:24 Follow up: Response: No adverse reaction kj2 21:03 Drug: Ondansetron IVP 4 mg IVP once; over 2 minutes Route: IVP; Site: right antecubital;kj2 21:24 Follow up: Response: No adverse reaction kj2 21:04 Drug: NS 0.9% IV 500 ml 500 ml IV at 1 bolus once; to be given as a bolus over 30 kj2 minutes Volume: 500 ml; Route: IV; Rate: 1 bolus; Site: right antecubital; 21:24 Follow up: Response: No adverse reaction kj2 11/19 13:49 Follow up: IV Status: Completed infusion; IV Intake: 500ml me1 11/18 22:14 Drug: fentaNYL (PF) IVP 25 mcg IVP once Route: IVP; Site: right antecubital; kj2 22:45 Follow up: Response: No adverse reaction; Pain is decreased br2 22:14 Drug: Ondansetron IVP 4 mg IVP once; over 2 minutes Route: IVP; Site: right antecubital;kj2 22:45 Follow up: Response: No adverse reaction br2 22:14 Drug: Eliquis PO 2.5 mg PO once Route: PO; kj2 22:15 Follow up: Response: No adverse reaction br2 22:14 Drug: hydrALAZINE IVP 20 mg IVP once Route: IVP; Site: right antecubital; kj2 22:45 Follow up: Response: No adverse reaction br2 22:14 Drug: HydrALAZINE PO 25 mg PO once Route: PO; kj2 22:45 Follow up: Response: No adverse reaction br2 22:22 Drug: NS 0.9% IV 1000 ml IV at 125 ml/hr once; to be given as a bolus over 60 minutes br2 Route: IV; Rate: 125 ml/hr; Site: right antecubital; 11/19 13:49 Follow up: IV Status: Completed infusion me1 01:04 Not Given (MONITOR B/P AFTER 1ST DOSE AND B/P DROPPEDd): [id number] mg IV at per br2 protocol once 02:21 Not Given (PT PAIN IMPROVED WITH FIRST DOSEe): fentanyl (pf)25 mcg IVP once br2 Disposition Summary: 11/18/24 21:23 Hospitalization Ordered Notes: Hospitalization Status: Inpatient Admission berta Provider: Daniella Bueno cha Condition: Fair berta Problem: new berta Symptoms: have improved berta Bed/Room Type: Standard berta Location: Telemetry/MedSurg (Inpatient)(11/19/24 13:21) eb Room Assignment: 406(11/19/24 13:21) eb Diagnosis - Chest pain, unspecified berta - Essential (primary) hypertension berta - correction (current) use of anticoagulants berta - Elevated white blood cell count berta Forms: - Medication Reconciliation Form berta - SBAR form berta - Leadership Thank You Letter berta Signatures: Dispatcher [employer] Michael Ace MD MD cha Botello, Elizabeth eb Able, Lacie, RN RN lg3 Olya Marcano RN RN br2 Cheyenne Kilpatrick RN RN kj2 Maria Elena Waite RN me1 Corrections: (The following items were deleted from the chart) 11/18 19:22 19:22 BASIC METABOLIC PANEL+C.LAB.BRZ ordered. EDMS EDMS 19:22 19:22 CBC+H.LAB.BRZ ordered. EDMS EDMS 19:22 19:22 HEPATIC FUNCTION+C.LAB.BRZ ordered. EDMS EDMS 19:22 19:22 MAGNESIUM+C.LAB.BRZ ordered. EDMS EDMS 19:22 19:22 PROBNP+C.LAB.BRZ ordered. EDMS EDMS 19:22 19:22 PROTIME (+INR)+COAG.LAB.BRZ ordered. EDMS EDMS 19: 19:22 Troponin High Sensitivity+C.LAB.BRZ ordered. EDMS EDMS 19: 19:22 Urinalysis+U.LAB.BRZ ordered. EDMS EDMS 19: 19:22 Chest Single View+RAD.RAD.BRZ ordered. EDMS EDMS 19:43 19:34 Head C Spine Cap Wo Con+CT.RAD.BRZ ordered. EDMS EDMS 21:19 21:19 VALPROIC ACID (DEPAKOTE)+C.LAB.BRZ ordered. EDMS EDMS 21:57 21:23 Telemetry/MedSurg (Inpatient) berta lg3 21:57 21:23 berta lg3 11/19 13:21 11/18 21:57 BR ER [facility] lg3 eb 11/19 13:21 11/18 21:57 ERHOLD- lg3 eb
--- NOTE | 2024-11-18 21:24 | ER ---
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 Coronavirus screen: Client denies kj2 travel out of the [place] in the last 14 days. Ebola Screen: No symptoms or risks identified at this time. Initial Sepsis Screen: Does the patient meet any 2 criteria? No. Patient's initial sepsis screen is negative. Does the patient have a suspected source of infection? No. Patient's initial sepsis screen is negative. Risk Assessment: Do you want to hurt yourself or someone else? Patient reports no desire to harm self or others. Onset of symptoms was November 18, 2024. 19:00 Method Of Arrival: EMS: [facility] kj2 19:00 Acuity: SENTHIL 3 kj2 Triage Assessment: 19:00 General: Appears in no apparent distress. Behavior is calm, cooperative. Pain: kj2 Complains of pain in chest, head Pain currently is 5 out of 10 on a pain scale. Neuro: Level of Consciousness is awake, alert, Oriented to person, place, time, situation. Cardiovascular: Patient's skin is warm and dry. Respiratory: Airway is patent Respiratory effort is even, unlabored. GI: No signs and/or symptoms were reported involving the gastrointestinal system. : No signs and/or symptoms were reported regarding the genitourinary system. Historical: - Allergies: 19:19 Codeine; kj2 19:19 Morphine; kj2 19:19 PENICILLINS; kj2 - Immunization history:: Adult Immunizations unknown. - Infectious Disease History:: Denies. - Social history:: Smoking status: Patient denies any tobacco usage or history of. Screenin:00 [facility] ED Fall Risk Assessment (Adult) History of falling in the last 3 months, kj2 including since admission No falls in past 3 months (0 pts) Confusion or Disorientation No (0 pts) Intoxicated or Sedated No (0 pts) Impaired Gait No (0 pts) Mobility Assist Device Used No (0 pt) Altered Elimination No (0 pt) Score/Fall Risk Level 0 - 2 = Low Risk Maintained a safe environment, Hourly rounding (assess needs \T\ fall precautionary measures) done. Abuse screen: Denies threats or abuse. Denies injuries from another. Nutritional screening: No deficits noted. Tuberculosis screening: No symptoms or risk factors identified. Assessment: 19:00 General: see triage assessment. kj2 20:00 Reassessment: Patient appears in no apparent distress at this time. Patient and/or kj2 family updated on plan of care and expected duration. Pain level reassessed. Patient is alert, oriented x 3, equal unlabored respirations, skin warm/dry/pink. 21:01 Reassessment: Patient appears in no apparent distress at this time. Patient and/or kj2 family updated on plan of care and expected duration. Pain level reassessed. Patient is alert, oriented x 3, equal unlabored respirations, skin warm/dry/pink. 22:15 Reassessment: Patient appears in no apparent distress at this time. Patient and/or kj2 family updated on plan of care and expected duration. Pain level reassessed. Patient is alert, oriented x 3, equal unlabored respirations, skin warm/dry/pink. Vital Signs: 19:00 BP 211 / 116; Pulse 90; Resp 18; Temp 98.4; Pulse Ox 100% on R/A; kj2 21:01 BP 188 / 101; Pulse 72; Resp 18; Pulse Ox 98% on R/A; kj2 22:00 BP 194 / 104; Pulse 89; Resp 20; Pulse Ox 100% ; kj2 ED Course: 19:00 Patient has correct armband on for positive identification. Bed in low position. Call kj2 light in reach. Side rails up X 1. Provided Education on: call light. 19:16 Patient arrived in ED. lg3 19:16 hCeyenne Kilpatrick RN is Primary Nurse. kj2 19:19 Triage completed. kj2 19:21 Michael Estrada MD is Attending Physician. [facility] 19:23 Arm band placed on Patient placed in an exam room, on a stretcher. kj2 19:23 No provider procedures requiring assistance completed. kj2 19:40 Missed attempt(s): 20 gauge in left antecubital area. kj2 19:52 EKG done, by ED staff, reviewed by Michael Estrada MD. oe 20:07 Chest Abd Pelvis Wo Con In Process Unspecified. EDMS 20:08 Head C Spine Mpr Wo Con In Process Unspecified. EDMS 20:31 XRAY Chest (1 view) In Process Unspecified. EDMS 20:34 Inserted saline lock: 22 gauge in right forearm, using aseptic technique. Flushed with oe 10 mL NS. 21:21 Daniella Bueno MD is Hospitalizing Provider. berta 22:09 US Extremity Venous W Compression Bipin In Process Unspecified. EDMS 22:16 Report given to DIANA Dobson. kj2 11/19 08:55 Patient admitted, IV remains in place. hb Administered Medications: 11/18 21:03 Drug: Labetalol IV 10 mg IV at per protocol once Route: IV; Rate: per protocol; Site: kj right antecubital; 22:00 Follow up: IV Status: Completed infusion; IV Intake: 1ml br2 21:03 Drug: Famotidine IVP 20 mg IVP once; dilute with 10 mL 0.9% NaCl; give over 2 minutes kj2 Route: IVP; Site: right antecubital; 21:24 Follow up: Response: No adverse reaction kj2 21:03 Drug: Ondansetron IVP 4 mg IVP once; over 2 minutes Route: IVP; Site: right antecubital;kj2 21:24 Follow up: Response: No adverse reaction kj2 21:04 Drug: NS 0.9% IV 500 ml 500 ml IV at 1 bolus once; to be given as a bolus over 30 kj2 minutes Volume: 500 ml; Route: IV; Rate: 1 bolus; Site: right antecubital; 21:24 Follow up: Response: No adverse reaction kj2 11/19 13:49 Follow up: IV Status: Completed infusion; IV Intake: 500ml me1 11/18 22:14 Drug: fentaNYL (PF) IVP 25 mcg IVP once Route: IVP; Site: right antecubital; kj2 22:45 Follow up: Response: No adverse reaction; Pain is decreased br2 22:14 Drug: Ondansetron IVP 4 mg IVP once; over 2 minutes Route: IVP; Site: right antecubital;kj2 22:45 Follow up: Response: No adverse reaction br2 22:14 Drug: Eliquis PO 2.5 mg PO once Route: PO; kj2 22:15 Follow up: Response: No adverse reaction br2 22:14 Drug: hydrALAZINE IVP 20 mg IVP once Route: IVP; Site: right antecubital; kj2 22:45 Follow up: Response: No adverse reaction br2 22:14 Drug: HydrALAZINE PO 25 mg PO once Route: PO; kj2 22:45 Follow up: Response: No adverse reaction br2 22:22 Drug: NS 0.9% IV 1000 ml IV at 125 ml/hr once; to be given as a bolus over 60 minutes br2 Route: IV; Rate: 125 ml/hr; Site: right antecubital; 11/19 13:49 Follow up: IV Status: Completed infusion me1 01:04 Not Given (MONITOR B/P AFTER 1ST DOSE AND B/P DROPPEDd): [id number] mg IV at per br2 protocol once 02:21 Not Given (PT PAIN IMPROVED WITH FIRST DOSEe): fentanyl (pf)25 mcg IVP once br2 Medication: 11/18 19:22 VIS not applicable for this client. kj2 Intake: 22:00 IV: 1ml; Total: 1ml. br2 11/19 13:49 IV: 500ml; Total: 501ml. me1 Outcome: 11/18 21:23 Decision to Hospitalize by Provider. [facility] 11/19 08:55 Admitted to ER Hold. Please see [facility] for further documentation. Condition: stable Instructed on the need for admit, 13:48 Admitted to Tele accompanied by tech, via wheelchair, room 406, with chart, Report me1 called to faxed, receipt confirmed with Amanda 13:48 Condition: stable 13:48 Instructed on the need for admit, 14:19 Patient left the ED. me1 Signatures: Dispatcher [employer] Michael Ace MD MD cha Baxter, Heather, RN RN Mk Arciniega Lacie, RN RN lg3 Maria Elena Waite RN RN me1 Olya Marcano RN RN br2 Cheyenne Kilpatrick RN RN kj2
[2024-11-18] MEDS ORDERED: FENTANYL CITR 100 MCG/2 ML ONE (21:53)
--- NOTE | 2024-11-18 21:54 | P.HP ---
Certification for Inpatient Patient admitted to: Observation With expected LOS: <2 Midnights Patient will require the following post-hospital care: None Practitioner: I am a practitioner with admitting privileges, knowledge of patient current condition, hospital course, and medical plan of care. Services: Services provided to patient in accordance with Admission requirements found in Title 42 Section 412.3 of the Code of Federal Regulations Patient History Date of Service: 11/18/24 Reason for admission: Chest pain, nausea vomiting History of Present Illness: 63-year-old male with past medical history of HTN,CVA, BPH , bipolar hypothy disorder,roidism, left AKA, CAD status post CABG, HLD A-fib not on any chronic anticoagulation, half-way resident Presented to the hospital because of dizziness nausea vomiting as well as new onset chest pain since the last 1 day. Patient states blood pressure has been running high since the last 3 days that he has been having intermittent dizziness. Symptoms continue to worsen despite his home meds and his dizziness worsening today. He denies any became associated with feeling of chest pain chest pain is left-sided nonradiating. He denies any palpitation. He denies any shortness of breath. He admits to some abdominal pain more of lower abdomen the occasionally with cramping symptoms. On arrival in the ED blood pressure was markedly elevated with systolic of 211/109 pulse of 90 respiratory rate of 18 O2 sat of 100 on room air. Chest x- ray shows no acute infiltrates or pulmonary edema. Head CT shows no acute intracranial findings. CT of the chest and abdomen shows evidence of stool with fecal impaction. No diverticulitis. BMP was unremarkable. CBC shows elevated WBC of 14,000 with 87% neutrophilia. Troponin was not normal at 36. proBNP elevated at 5556 EKG shows normal sinus rhythm with no ST segment changes. Patient has been admitted for hypertensive urgency as well as atypical chest pain Allergies Penicillins Allergy (Intermediate, Verified 09/09/20 23:52) Hives/Rash codeine [From Tylenol-Codeine] Allergy (Verified 09/09/20 23:52) Itching oxycodone Allergy (Verified 09/09/20 23:52) Itching Home Medications: Atorvastatin Calcium [Lipitor] 40 mg PO DAILY 12/18/20 Clonidine HCl [Catapres*] 0.2 mg PO Q6HP PRN 12/18/20 Gabapentin 600 mg PO BEDTIME 12/18/20 ALPRAZolam [Xanax*] 0.25 mg PO TID PRN #30 tab 12/19/20 Amitriptyline [Elavil*] 25 mg PO BEDTIME 12/19/20 Hydrocodone Bit/Acetaminophen [[place] 10-325 Tablet] 1 each PO Q6HP PRN #30 tablet 12/19/20 Pantoprazole [Protonix Tab] 40 mg PO DAILY #30 tab 02/18/21 Levofloxacin [Levaquin] 500 mg PO DAILY 7 Days #7 tablet 03/10/21 Spironolactone [Aldactone] 25 mg PO DAILY 30 Days #30 tablet 03/10/21 - Past Medical/Surgical History Diabetic: No -: Chronic back pain -: HTN -: CAD, CABG times 2 vessels in December 2015 -: COPD -: Exposure to asbestosis -: Bipolar disorder -: Hyperlipidemia -: Severe sleep apnea -: Chronic pain syndrome -: CHF -: Atrial fibrillation on amiodarone-no anti coagulation therapy -: pneumonia -: Right Leg surgery -: Back surgery -: Cholecystectomy -: Cardiac catheterization 04/13 without stent placement -: CABG- Double bypass 12/2015 -: Neck Surgery -: Cervical fusion -: L4-L5-S1 fusion Psychosocial/ Personal History: Single, Children-1, Work-Disabled due to back. - Family History Mother -: Cancer Notes: Patient stated mother of breast cancer Father -: Heart disease, Cancer Notes: Patient stated father of stomach and bone cancer. - Social History Alcohol use: No CD- Drugs: No Caffeine use: No Review of Systems General: Weakness Respiratory: Cough Cardiovascular: Chest Pain, Light Headedness Gastrointestinal: Nausea, Vomiting, Abdominal Pain, Distention Neurological: Weakness Physical Examination - Physical Exam General: Alert, In no apparent distress, Oriented x3, Cooperative HEENT: Atraumatic, Normocephalic, PERRLA Neck: Supple, 2+ carotid pulse no bruit, JVD not distended Respiratory: Clear to auscultation bilaterally, Normal air movement Cardiovascular: Normal pulses, Regular rate/rhythm, Normal S1 S2 Capillary refill: <2 Seconds Gastrointestinal: Normal bowel sounds, Soft and benign, No ascites, No tenderness, Distended Musculoskeletal: Tenderness (RIGHT LEG ), Other (left AKA ) Neurological: Normal speech, Normal strength at 5/5 x4 extr, Normal tone, Sensation intact, Cranial nerves 3-12 intact - Studies Laboratory Data (last 24 hrs) 11/18/24 11/18/24 11/18/24 19:45 19:45 19:45 WBC 14.10 H Hgb 12.8 L Hct 37.5 L Plt Count 296 PT 13.7 H INR 1.31 Sodium Potassium BUN Creatinine Glucose Magnesium Total Bilirubin AST ALT Alkaline Phosphatase Lipase 21 11/18/24 19:45 WBC Hgb Hct Plt Count PT INR Sodium 134 L Potassium 4.5 BUN 13 Creatinine 0.77 Glucose 125 H Magnesium 2.5 H Total Bilirubin 0.4 AST 21 ALT < 14 L Alkaline Phosphatase 40 L Lipase Assessment and Plan - Problems (Diagnosis) (1) Chest pain Onset Date: 06/10/18 Current Visit: No Status: Acute Qualifiers: (2) Hypertensive urgency Current Visit: No Status: Acute (3) Intractable nausea and vomiting Onset Date: ~12/16/20 Current Visit: No Status: Acute (4) Atrial fibrillation Onset Date: 10/13/16 Current Visit: No Status: Chronic Qualifiers: - Plan Impression/plan Hypertensive urgency-obtain complete home med list Start patient on labetalol and hydralazine Hold clonidine for now since fluctuating BP with use Consider isosorbide if still persistent uncontrolled IV hydralazine as needed Atypical chest pain-initial troponin negative, follow serial set Start aspirin, add Plavix Constipation with fecal impaction-obtain TSH No IV fluids since elevated proBNP Does lactulose with soap and water enema today Intractable nausea and vomiting-may be secondary to constipation, follow-up with bowel movement IV Zofran as needed Obtain UA to rule out UTI Leukocytosisfollow pending UA Start empirical cefepime Can DC antibiotics in a.m. if negative urine Follow lactic acid level History of A-fib-rate controlled HLDcontinue statin DVT prophylaxissubcutaneous Lovenox Dispo possible hospital stay for 24 to 48 hours Will admit to observation Total time spent in evaluation and discussion with patient greater than 70 minutes. Addendumblood pressure improved after pain medication Restart home meds for now - Advance Directives Does patient have a Living Will: No Does patient have a Durable POA for Healthcare: No Time Spent Managing Pts Care (In Minutes): 75
[2024-11-18] MEDS ORDERED: APIXABAN 5 MG TABLET ONE (21:55)
[2024-11-18] MEDS ORDERED: HYDRALAZINE HCL 25 MG TABLET ONE (21:55)
[2024-11-18] MEDS ORDERED: NA CHLORIDE 0.9% 1,000 ML ONE (21:56)
[2024-11-18] MEDS ORDERED: HYDRALAZINE HCL 20 MG/ML VIAL ONE (21:56)
[2024-11-18] MEDS: LABETALOL HCL 100 MG TAB PO SCH (21:57)
[2024-11-18] MEDS ORDERED: ACETAMINOPHEN 500 MG TAB PO PRN (21:58)
[2024-11-18] MEDS: HYDRALAZINE HCL 25 MG TABLET PO SCH ×2 (21:58→23:45)
[2024-11-18] MEDS ORDERED: ALBUTEROL 2.5 MG/3 ML NEB SOL NEB PRN (21:58)
[2024-11-18] MEDS: ASPIRIN EC 81 MG TAB PO SCH (22:00)
[2024-11-18] MEDS: LACTULOSE 20 GM/30 ML UCUP PO ONE (22:01)
[2024-11-18] MEDS ORDERED: HYDRALAZINE HCL 20 MG/ML VIAL IV PRN (22:02)
--- NOTE | 2024-11-18 22:16 | RAD REPORT ---
EXAMINATION: US bilateral LOWER EXTREMITY VENOUS DOPPLER CLINICAL INDICATION: Leg pain TECHNIQUE: Sonographic evaluation of the veins of the lower extremity bilaterally formed.Grayscale, c olor and spectral analysis performed on all vessels COMPARISON: No prior exam. FINDINGS: The common femoral, superficial femoral, greater saphenous, popliteal and posterior tibial veins bila terally are compressible and demonstrate augmentation. Doppler demonstrates good flow. IMPRESSION: No evidence of deep venous thrombosis involving either lower extremity
[2024-11-18 23:06] LABS: Specific Gravity 1.016 (1.005-1.030); Sqamous Epithelial <5 /HPF (None Seen); Urine Bacteria None Seen /HPF (<20); Urine Bilirubin NEGATIVE (Negative); Urine Blood Negative (Negative); Urine Clarity Clear (Clear); Urine Color Light-Yellow (Yellow); Urine Crystals Unidentified Few /HPF (None Seen); Urine Culture Reflex Order REFLEXED; Urine Glucose NEGATIVE (Negative); Urine Ketones 1+ (Negative); Urine Microscopic Reflex YN ORDER UMIC; Urine Nitrite NEGATIVE (Negative); Urine Protein TRACE (Negative); Urine RBC <5 /HPF (None Seen); Urine Urobilinogen Normal (Normal); Urine pH 7.5 (5.0-7.0)
[2024-11-19] MEDS: NA CHLORIDE 0.9% 500 ML IV ONE (00:56)
[2024-11-19] MEDS: Meropenem 500 MG in NA CHLORIDE 0.9% 100 ML IV SCH (01:00)
[2024-11-19] MEDS ORDERED: NA CHLORIDE 0.9% 100 ML ONE ×2 (01:12→09:44)
[2024-11-19] MEDS ORDERED: ASPIRIN 81 MG CHEWABLE TABLET ONE (01:12)
[2024-11-19] MEDS ORDERED: LACTULOSE 20 GM/30 ML UCUP ONE (01:12)
[2024-11-19] MEDS ORDERED: Meropenem 500 MG VIAL IV ONE ×2 (01:12→09:43)
[2024-11-19] MEDS ORDERED: NA CHLORIDE 0.9% 1,000 ML ONE (03:01)
[2024-11-19 03:16] LABS: Blood Morphology Comment NOT SEEN (NOT SEEN); Platelet Estimate ADEQ; White Blood Cell Scan OK (OK)
[2024-11-19 04:12] VITALS: BMI 17.4
[2024-11-19] MEDS: carvediloL 12.5 MG TAB PO SCH (06:00)
[2024-11-19] MEDS ORDERED: carvediloL 6.25 MG TAB ONE (06:45)
[2024-11-19] MEDS ORDERED: MORPHINE 2 MG/ML SYR ONE ×2 (06:54→11:15)
[2024-11-19] MEDS: MORPHINE 2 MG/ML SYR IV PRN (07:01)
[2024-11-19 08:18] LABS: Absolute Basophils 0.1 K/uL (0-0.5); Absolute Eosinophils 0.1 K/uL (0-0.5); Absolute Lymphocytes (CBC) 2.4 K/uL (0.7-4.9); Absolute Monocytes 0.8 K/uL (0.1-1.3); Absolute Neutrophil 4.7 K/uL (1.8-8.0); Basophils % 0.7 % (0-1.3); Eosinophils % 1.7 % (0-4.4); Hematocrit 28.3 % (39.6-49.0); Hemoglobin 9.7 g/dL (13.6-17.9); Lymphocytes % 29.5 % (15.3-44.8); MCH 30.4 pg (27.0-35.0); MCHC 34.2 g/dL (32.0-36.0); MCV 88.9 fL (80-100); Neutrophils % 58.1 % (41.7-73.7); Platelets 209 thou/uL (152-406); RBC Red Blood Cell Count 3.18 M/uL (4.33-5.43); Red Cell Distribution Width 13.1 % (12.1-15.2)
[2024-11-19 08:46] LABS: AST/SGOT 14 U/L (15-37); Albumin/Globulin Ratio 0.9 (1.1-1.8); Alkaline Phosphatase 29 U/L (45-117); Anion Gap 6.9 mEq/L (5.0-15.0); BUN Blood Urea Nitrogen 19 mg/dL (7-18); Bicarbonate 26 mEq/L (21-32); Bilirubin Total 0.3 mg/dL (0.2-1.0); Globulin 3.5 g/dL (2.3-3.5); Glomerular Filtration Rate 96 ml/min (=/>90); Glucose Level 88 mg/dL (74-106); Potassium 3.9 mEq/L (3.5-5.1); Protein, Total 6.5 g/dL (6.4-8.2); Sodium Level 140 mEq/L (136-145)
[2024-11-19 08:49] LABS: ALT/SGPT < 14 U/L (16-61)
[2024-11-19] MEDS: ENOXAPARIN 40 MG/0.4 ML SQ SCH (09:00)
[2024-11-19] MEDS: LOSARTAN POTASSIUM 50 MG TABLET PO SCH (09:00)
[2024-11-19] MEDS ORDERED: LOSARTAN POTASSIUM 50 MG TABLET ONE (09:43)
[2024-11-19] MEDS ORDERED: AMLODIPINE 10 MG TAB ONE (09:43)
[2024-11-19] MEDS ORDERED: ASPIRIN EC 81 MG TAB PO ONE (09:43)
[2024-11-19] MEDS ORDERED: ENOXAPARIN 40 MG/0.4 ML SQ ONE (09:43)
[2024-11-19] MEDS: AMLODIPINE 10 MG TAB PO SCH (11:18)
[2024-11-19 15:18] VITALS: O2SAT 100
[2024-11-19] MEDS ORDERED: HYDROCODONE/APAP 10/325 TAB PO PRN (17:46)
[2024-11-19] MEDS: TAMSULOSIN 0.4 MG SR CAP PO SCH ×2 (17:47→19:56)
--- NOTE | 2024-11-19 17:57 | P.PN ---
Subjective Date of Service: 11/19/24 Chief Complaint: Chest pain, nausea vomiting Patient complaining of pain in the right foot. He has a chronic ulcer on the lateral edge of the foot, no surrounding erythema. Blood pressure has improved. Patient is tolerating diet. Physical Examination - Vital Signs Temperature: 98.4 F Blood Pressure: 132/65 Pulse: 77 Respirations: 14 Pulse Ox (%): 97 - Studies Laboratory Data (last 24 hrs) 11/19/24 11/19/24 11/19/24 07:58 07:58 07:58 WBC 8.20 Hgb 9.7 L D Hct 28.3 L Plt Count 209 D PT INR Sodium 140 D Potassium 3.9 D BUN 19 H Creatinine 0.87 Glucose 88 Magnesium 2.4 Total Bilirubin 0.3 AST 14 L ALT < 14 L Alkaline Phosphatase 29 L D Lipase 11/18/24 11/18/24 11/18/24 19:45 19:45 19:45 WBC 14.10 H Hgb 12.8 L Hct 37.5 L Plt Count 296 PT 13.7 H INR 1.31 Sodium Potassium BUN Creatinine Glucose Magnesium Total Bilirubin AST ALT Alkaline Phosphatase Lipase 21 11/18/24 19:45 WBC Hgb Hct Plt Count PT INR Sodium 134 L Potassium 4.5 BUN 13 Creatinine 0.77 Glucose 125 H Magnesium 2.5 H Total Bilirubin 0.4 AST 21 ALT < 14 L Alkaline Phosphatase 40 L Lipase Assessment And Plan - Plan Physical examination General: Alert and oriented x3, NAD, HEENT: Conjunctiva not pale, anicteric sclera Neck: Supple, no elevated JVD Heart: Heart sounds 1 and 2 normal, regular rhythm, normal rate, no pedal edema Lungs: Clear to auscultation bilaterally, adequate breath sounds bilaterally, no rhonchi or crackles. Abdomen: Soft, nondistended, nontender, normal bowel sounds. Extremities: No tenderness, left BKA. Skin: Normal skin turgor, right foot with ulcer at the lateral edge, ulcer looks clean, no surrounding erythema. Neuro: No focal motor deficit. Normal speech. Psychiatry: Normal mood, no agitation. Assessment and plan Hypertensive urgency Chest pain Functional constipation Intractable nausea and vomiting Acute cystitis without hematuria. BPH Plan: Hypertensive urgency Uncontrolled pain contributing to elevated BP. BP has improved. Home antihypertensives resumed. Hold clonidine for now since fluctuating BP with use IV hydralazine as needed. Chest pain Likely atypical. Troponin negative Continue Plavix and aspirin Intractable nausea constipation with fecal impaction Lactulose enema. Laxatives and stool softeners as needed. Patient is currently tolerating diet. Acute cystitis without hematuria BPH UA suggest the presence of UTI. Continue antibiotics. Follow urine culture History of A-fib Rate controlled Continue home medications Hyperlipidemia Continue statin DVT prophylaxis Lovenox SQ Advanced directive: Full code
[2024-11-19] MEDS ORDERED: PROMETHAZINE 25 MG TABLET PO SCH (18:00)
[2024-11-19] MEDS: AMITRIPTYLINE 50 MG TAB PO SCH (19:54)
[2024-11-19] MEDS: methocarbamoL 500 MG TAB PO SCH (19:55)
[2024-11-19] MEDS: QUETIAPINE 25 MG TAB PO SCH (19:55)
[2024-11-19] MEDS: ATORVASTATIN 40 MG TAB PO SCH (19:56)
[2024-11-19] MEDS: DIVALPROEX ER 250 MG TAB PO SCH (19:56)
[2024-11-20] MEDS ORDERED: CLONIDINE HCL 0.3 MG TAB PO SCH (01:00)
[2024-11-20] MEDS: HYDRALAZINE HCL 25 MG TABLET PO SCH (01:21)
[2024-11-20 06:56] LABS: Albumin 3.2 g/dL (3.4-5.0); Albumin/Globulin Ratio 0.7 (1.1-1.8); Anion Gap 9.2 mEq/L (5.0-15.0); Bilirubin Total 0.3 mg/dL (0.2-1.0); Globulin 4.3 g/dL (2.3-3.5); Potassium 4.2 mEq/L (3.5-5.1); Protein, Total 7.5 g/dL (6.4-8.2)
[2024-11-20] MEDS: CLOPIDOGREL 75 MG TABLET PO SCH (09:10)
[2024-11-20] MEDS: APIXABAN 2.5 MG TABLET PO SCH (09:10)
[2024-11-20] MEDS: ONDANSETRON 4 MG/2 ML VIAL IV PRN (11:01)
[2024-11-20 12:44] VITALS: TEMP 98.2
--- NOTE | 2024-11-20 14:03 | P.DS ---
Admission Date: 11/19/24 Discharge Date: 11/20/24 Disposition: TRANSFER TO GROUP HOME Discharge Condition: FAIR Reason for Admission: Chest pain, nausea vomiting Brief History of Present Illness: 63-year-old male with past medical history of HTN,CVA, BPH , bipolar hypothy disorder,roidism, left AKA, CAD status post CABG, HLD A-fib, intermediate resident Patient presented to the hospital because of dizziness nausea vomiting as well as new onset chest pain since the last 1 day. Patient states blood pressure has been running high for 3 days, associated with intermittent dizziness. Patient also reported cramping abdominal pain as well as pain in his left foot wounds. On arrival in the ED blood pressure was markedly elevated with systolic of 211/109 pulse of 90 respiratory rate of 18 O2 sat of 100 on room air. Chest x- ray shows no acute infiltrates or pulmonary edema. Head CT shows no acute intracranial findings. CT of the chest and abdomen shows evidence of stool with fecal impaction. No diverticulitis. BMP was unremarkable. CBC shows elevated WBC of 14,000 with 87% neutrophilia. Troponin was not normal at 36. proBNP elevated at 5556 EKG shows normal sinus rhythm with no ST segment changes. Patient was admitted for hypertensive urgency as well as atypical chest pain Hospital Course: Diagnosis Hypertensive urgency Chest pain Functional constipation Intractable nausea and vomiting Acute cystitis without hematuria. BPH Plan: Hypertensive urgency Uncontrolled pain contributing to elevated BP. Overall blood pressure was improved during the hospital stay with his home antihypertensives IV hydralazine was given as needed. Chest pain Likely atypical. Troponin negative Patient is on Plavix and aspirin and Eliquis which were continued Intractable nausea constipation with fecal impaction Nausea likely related to constipation Constipation treated lactulose enema and laxatives Patient tolerated diet Acute cystitis without hematuria BPH UA suggested the presence of UTI. Urine culture showed mixed microbial growth. Previous urine culture grew pansensitive E. coli Patient discharged with oral Levaquin. History of A-fib Rate controlled Continued home medications Hyperlipidemia Continued statin Vital Signs/Physical Exam: Temp Pulse Resp BP Pulse Ox 98.2 F 90 16 174/85 H 97 11/20/24 12:00 11/20/24 12:00 11/20/24 12:00 11/20/24 12:00 11/20/24 12:00 General: Alert, In no apparent distress, Oriented x3 HEENT: Mucous membr. moist/pink Neck: JVD not distended Respiratory: Clear to auscultation bilaterally, Normal air movement Cardiovascular: Normal S1 S2, Irregular heart rate/rhythm Gastrointestinal: Soft and benign, Non-distended Musculoskeletal: No swelling Integumentary: Other (Clean ulcer lateral aspect of left foot, callus healing w ound medial aspect of left great toe.) Laboratory Data at Discharge: WBC 8.20 thou/uL (4.3-10.9) 11/19/24 07:58 Hgb 9.7 g/dL (13.6-17.9) L D 11/19/24 07:58 Hct 28.3 % (39.6-49.0) L 11/19/24 07:58 Plt Count 209 thou/uL (152-406) D 11/19/24 07:58 PT 13.7 SECONDS (9.4-12.5) H 11/18/24 19:45 INR 1.31 11/18/24 19:45 Sodium 138 mEq/L (136-145) 11/20/24 05:42 Potassium 4.2 mEq/L (3.5-5.1) 11/20/24 05:42 BUN 22 mg/dL (7-18) H 11/20/24 05:42 Creatinine 0.91 mg/dL (0.70-1.30) 11/20/24 05:42 Glucose 90 mg/dL (74-106) 11/20/24 05:42 Magnesium Cancelled 11/20/24 05:42 Total Bilirubin 0.3 mg/dL (0.2-1.0) 11/20/24 05:42 AST 12 U/L (15-37) L 11/20/24 05:42 ALT 15 U/L (16-61) L 11/20/24 05:42 Alkaline Phosphatase 33 U/L (45-117) L 11/20/24 05:42 Lipase 21 U/L (13-75) 11/18/24 19:45 Home Medications: Atorvastatin Calcium [Lipitor] 40 mg PO BEDTIME 12/18/20 Clonidine HCl [Catapres*] 0.3 mg PO Q8HR 12/18/20 Amitriptyline [Elavil*] 75 mg PO BEDTIME 12/19/20 Amlodipine [Norvasc*] 10 mg PO DAILY 11/19/24 Apixaban [Eliquis *] 2.5 mg PO BID 11/19/24 Clopidogrel Bisulfate [Plavix] 75 mg PO DAILY 11/19/24 Divalproex Sodium [Depakote ER] 500 mg PO BEDTIME 11/19/24 Hydralazine HCl 100 mg PO Q8HR 11/19/24 Hydrocodone Bit/Acetaminophen [[place] 10-325 Tablet] 10 - 325 tab PO Q6HP PRN 11/19/24 Losartan Potassium 25 mg PO DAILY 11/19/24 Promethazine Tab [Phenergan*] 25 mg PO Q6H PRN 11/19/24 Quetiapine Fumarate [Seroquel] 25 mg PO BEDTIME 11/19/24 Tamsulosin HCl [Flomax] 0.4 mg PO DAILY 11/19/24 carvediloL [Coreg] 12.5 mg PO BID 11/19/24 methocarbamoL [Robaxin*] 500 mg PO TID 11/19/24 levoFLOXacin [Levaquin] 750 mg PO DAILY #7 tab 11/20/24 New Medications: levoFLOXacin [Levaquin] 750 mg PO DAILY #7 tab Diet: AHA Activity: Fall precautions Followup: Ree Spangler MD [Primary Care Provider] - 1-2 Weeks Time spent managing pt's care (in minutes): 34
[2024-11-20 16:49] VITALS: BP 152/93
--- NOTE | 2024-11-20 19:01 | P.PN ---
Subjective Date of Service: 11/20/24 Chief Complaint: Chest pain, nausea vomiting Patient has no new complain. He reports pain is left foot is better today. Blood pressure has improved. Patient is tolerating diet. He denies any chest pain. Physical Examination - Vital Signs Temperature: 98.2 F Blood Pressure: 152/93 Pulse: 85 Respirations: 18 Pulse Ox (%): 97 Assessment And Plan - Plan Physical examination General: Alert and oriented x3, NAD, HEENT: Conjunctiva not pale, anicteric sclera Neck: Supple, no elevated JVD Heart: Heart sounds 1 and 2 normal, regular rhythm, normal rate, no pedal edema Lungs: Clear to auscultation bilaterally, adequate breath sounds bilaterally, no rhonchi or crackles. Abdomen: Soft, nondistended, nontender, normal bowel sounds. Extremities: No tenderness, left BKA. Skin: Normal skin turgor, right foot with ulcer at the lateral edge, ulcer looks clean, no surrounding erythema. Neuro: No focal motor deficit. Normal speech. Psychiatry: Normal mood, no agitation. Assessment and plan Hypertensive urgency Chest pain Functional constipation Intractable nausea and vomiting Acute cystitis without hematuria. BPH Plan: Hypertensive urgency Uncontrolled pain contributing to elevated BP. BP readings improved Home antihypertensives resumed. Resume clonidine. IV hydralazine as needed. Chest pain Likely atypical. Troponin trended negative. ACS ruled out. Continue Plavix and aspirin Intractable nausea constipation with fecal impaction Nausea resolved. Status post lactulose enema. Laxatives and stool softeners as needed. Patient is currently tolerating diet. Acute cystitis without hematuria BPH UA suggest the presence of UTI. Urine culture: Mixed growth. Previous urine culture grew pansensitive E. coli Switch IV meropenem to oral Levaquin. History of A-fib Rate controlled Continue home medications Hyperlipidemia Continue statin DVT prophylaxis Lovenox SQ Advanced directive: Full code
[2024-11-21] MEDS ORDERED: levoFLOXacin 750 MG TAB PO SCH (10:00)
--- NOTE | 2024-11-22 12:41 | EKG ---
Test Date: 2024-11-18 Test Time: 19:50:07 Locomotive Operator Helper: PEDRO MEASUREMENT RESULTS: Intervals: Rate: 94 MI: 180 QRSD: 92 QT: 380 QTc: 475 [place]: P: 83 MI: 180 QRS: 37 T: 109 INTERPRETIVE STATEMENTS: Normal sinus rhythm Anteroseptal infarct, age undetermined T wave abnormality, consider lateral ischemia Abnormal ECG Compared to ECG 07/20/2024 09:45:41 T-wave abnormality now present Possible ischemia now present First degree AV block no longer present Left ventricular hypertrophy no longer present Early repolarization no longer present Myocardial infarct finding still present Electronically Signed On 11-22-24 12:35:09 DEPARTMENT EDITOR by Tomi Negrete
== END 2024-11-20 21:36 | DRG 305 ==
LOC: ER 19:01 → ERHOLD 21:58 → 4TH 11-19 13:54 → OBSVTOIN 11-19 16:27
PROVIDERS: ADMIT Internal Medicine; ATTEND Internal Medicine
DX: I16.0 Hypertensive urgency (principal); I48.20 Chronic atrial fibrillation, unspecified; N30.00 Acute cystitis without hematuria; E78.5 Hyperlipidemia, unspecified; I10 Essential (primary) hypertension; E11.9 Type 2 diabetes mellitus without complications; K59.04 Chronic idiopathic constipation; N40.0 Benign prostatic hyperplasia without lower urinary tract symptoms; I25.10 Atherosclerotic heart disease of native coronary artery without angina pectoris; L97.519 Non-pressure chronic ulcer of other part of right foot with unspecified severity; B96.20 Unspecified Escherichia coli [E. coli] as the cause of diseases classified elsewhere; Z88.0 Allergy status to penicillin; Z88.5 Allergy status to narcotic agent; Z79.01 Long term (current) use of anticoagulants; Z86.73 Personal history of transient ischemic attack (TIA), and cerebral infarction without residual deficits; Z89.612 Acquired absence of left leg above knee; Z95.1 Presence of aortocoronary bypass graft; Z79.02 Long term (current) use of antithrombotics/antiplatelets; Z79.899 Other long term (current) drug therapy
CPT/HCPCS: 36415; 70450; 71045; 71250; 72125; 74176; 80048; 80053; 80076; 80164; 81001; 83690; 83735; 83880; 84439; 84443; 84484; 85025; 85610; 87086; 87088; 93005; 93970; 96361; 96365; 96375; 99285; G0378; J0360; J1650; J2270; J2405; J3010; J7030; J7040